=== PATIENT | male | born 1970 | race Caucasian/White ===

== ENCOUNTER 2017-11-30 23:07 | Emergency (ER) | payer MEDICARE, SELFPAY ==
[2017-11-30 23:08] VITALS: BP 118/91; PULSE 71; RESP 15; TEMP 36.2; BMI 34.8
--- NOTE | 2017-11-30 23:56 | ED.VISSUMM ---
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 He is right-hand dominant. He was referred to sports medicine Dr. Kahn, who performed a cortisone injection in his bursa, he states he had relative relief for about 2 weeks but then it gradually became worse and now it is more severe. Hurts more to lie on his right shoulder. Overhead movements are the worst pain. Pain occasionally shoots down towards hand. Physical Examination: Vital signs are normal he is in no distress. He does have subacromial pain and tenderness of the right shoulder, intact axial nerve sensation and distally in his right upper extremity. No anterior tenderness. No deformities. He has full range of motion of the right shoulder, but more pain when he goes over his head. Positive Alford test. Also has increased pain when he uses his right hand to touch his left shoulder. Test Results: n/a Emergency Department Course and Treatment: His symptoms and exam are consistent with right shoulder bursitis. He had x-rays obtained in the office as an outpatient and there is no indication to repeat those at this time. I reviewed and oars report, he has had multiple prescriptions for narcotics in the past, none that are active, the last of which was 1-2 months ago. We will give him a short course of [place]; considered Voltaren gel since he is on Eliquis, but it appears that the combination is relatively contraindicated, so will avoid. Treatment Plan: As above and close outpatient follow-up with sports medicine Disposition: Discharge home Impression: Right shoulder impingement syndrome This note was generated with [employer] dictation software. It may contain incorrect words, spelling, and punctuation that were not noted in review of the chart prior to signing ED Disposition - Plan for ED Patient: Disposition: Home or Assisted Living Chief Complaint: Upper Extremity Injury Instructions: What Is Impingement Syndrome? Prescriptions: Oxycodone HCl/Acetaminophen [Percocet 5/325] 1 tab PO Q6H PRN PRN 3 Days #10 tab PRN Reason: Pain Referrals: Camron Kahn DO [STAFF PHYSICIAN] - 5-7 Days
[2017-12-01 00:06] VITALS: BP 122/89; PULSE 78; RESP 16; O2SAT 98
== END 2017-12-01 00:19 | disposition home or self-care (01) ==
PROVIDERS: Emergency Provider Emergency Medicine; Family Provider Internal Medicine; PCP Internal Medicine
DX: M75.41 Impingement syndrome of right shoulder (principal); I48.91 Unspecified atrial fibrillation; Z79.01 Long term (current) use of anticoagulants
CPT/HCPCS: 96372; 99282

== ENCOUNTER → 2017-12-02 17:00 | Outpatient (CLI) | payer MEDICARE, SELFPAY ==
--- NOTE | 2017-12-02 | IMM_PTH ---
PATIENT: ATTILA DEL CID LOC: [facility] U#:[id number] AGE/SX: 55/M ROOM: RE12/02/[address]: Dr. John Davis MD : 1970 BED: DIS: SPEC #: [id number] RECD: 12/04/17 11:11 STATUS: JB REYoel #: [id number] ARMEN: 12/02/17 00:[address]: John Davis DEPT: IMMUNOHISTOCHEMISTRY RECD BY: Pearl Hull ENTERED: 12/04/17 11:11 SP TYPE: IMMUNO OTHR DR: Dr. Kristyn Bearden MD Tissues: Stomach, NOS Procedures: H Pylori (initial) PHYSICIAN & INSTITUTION [place] [id number] SPECIMEN INFORMATION: Tissue Source: Biopsy gastric antrum/body Clinical Info: Nausea, abdomen pain Specimen Number: [id number] CPT code: 97461 METHODOLOGY: Deparaffinized sections of prefer/formalin-fixed tissue or PAP/DQ stained slides are incubated with monoclonal/polyclonal antibodies/oligonucleotide probes. Localization is made via biotin free immunoperoxidase method. Appropriate controls are performed and reacted as expected. Results on target cell population are indicated in the following table: RESULTS: ANTIBODY / CLONE RESULT H Pylori (polyclonal) negative These tests were developed and their performance characteristics determined by [facility]. They may not have been cleared or approved by the U.S. Food and Drug Administration. The FDA has determined that such clearance or approval is not necessary. INTERPRETATION: Gastric antrum/body, biopsy: Negative for Helicobacter pylori organisms. AM:abbe 12/05/17
--- NOTE | 2017-12-02 11:57 | EGD_PTH ---
PATIENT: ATTILA DEL CID LOC: [facility] U#:[id number] AGE/SX: 55/M ROOM: RE12/02/[address]: Dr. John Davis MD : 1970 BED: DIS: SPEC #: [id number] RECD: 12/02/17 16:14 STATUS: JB SCOTT #: [id number] ARMEN: 12/02/17 11:[address]: John Davis DEPT: SURGICAL PATHOLOGY RECD BY: Moustapha Whitt ENTERED: 12/03/17 08:12 SP TYPE: EGD BIOPSY OT DR: Dr. Kristyn Bearden MD [facility] Tissues: Gastric mucous membrane Procedures: Surgery Specimen Level IV HEADER OPERATION: EGD with biopsy PRE-OP DIAGNOSIS: Nausea, abdomen pain TISSUE SUBMITTED: Biopsy gastric antrum/body, rule out gastritis MICROSCOPIC DIAGNOSIS Gastric antrum/body, biopsy: Gastritis. AM:abbe 2/14/18 COMMENT The results of immunohistochemistry for Helicobacter pylori will be reported separately ([id number]). MICROSCOPIC DESCRIPTION Slides are reviewed. Sections show small collections and groups of plasma cells in the mucosa. Active inflammation is not present. These findings are consistent with mild chronic gastritis. GROSS DESCRIPTION Received in fixative is one container labeled with the patient's name and designated gastric biopsy. The specimen consists of multiple irregular fragments of light casiano soft tissue that in aggregate measure 0.6 x 0.2 x 0.1 cm. The specimen is totally submitted in one cassette. / AM:abbe 12/03/17 TC:3 [facility]: [id number]
== END ==
PROVIDERS: Family Provider Internal Medicine; PCP Internal Medicine; Visit Provider Internal Medicine Gastroenterology
DX: R11.0 Nausea (principal)
CPT/HCPCS: 88305; 88342

== ENCOUNTER 2017-12-16 20:44 | Emergency (ER) | payer MEDICARE, SELFPAY ==
[2017-12-16 20:45] VITALS: BP 148/112; PULSE 97; RESP 16; TEMP 36.4; O2SAT 98; BMI 34.6
--- NOTE | 2017-12-16 20:52 | EKG12_ITS ---
Test Reason : CP Blood Pressure : / mmHG Vent. Rate : 080 BPM Atrial Rate : 080 BPM P-R Int : 160 ms QRS Dur : 084 ms QT Int : 366 ms P-R-T Axes : 006 016 047 degrees QTc Int : 422 ms Normal sinus rhythm Normal ECG Confirmed by NABILA CONNOR, JEANCARLOS ([id number]), material expeditor RICCO LUZ ([id number]) on 12/18/2017 2:11:11 PM Referred By: EMMANUEL Confirmed By:JEANCARLOS DAHL MD
--- NOTE | 2017-12-16 21:10 | RAD_ITS ---
STUDY: X-RAY CHEST REASON FOR EXAM: Male, 47 years old. Chest pain TECHNIQUE: Single AP portable view of the chest. COMPARISON: 10/25/2017. FINDINGS: The lungs are clear and expanded. There is no demonstrated pleural abnormality. Normal size heart. Normal mediastinum and ruben. Normal visualized pulmonary arteries. Normal visualized aortic arch and descending thoracic aorta. Normal visualized thoracic spine. Normal visualized ribs, clavicles, and shoulders. There is no demonstrated abnormality of the visualized soft tissue structures of the upper abdomen. RAD/Chest 1 View (Portable) IMPRESSION: Normal x-ray examination of the chest. Electronically Signed: Soto Mena MD at 21:49 EST , Service support ,
[2017-12-16 21:18] VITALS: BP 151/112; PULSE 82; RESP 26; O2SAT 98
[2017-12-16 21:22] LABS: Absolute Lymphocyte Count 2.26 X10^3/ul (0.83-4.51); Absolute Neutrophil Count 4.2 X10^3/uL (2.0-7.7); Basophil# 0.03 X10^3/uL; Basophil% 0.4 % (0-1); Eosinophil# 0.09 X10^3/uL; Eosinophils% 1.3 % (0-5); Hematocrit 44.8 % (40-54); Hemoglobin 14.6 g/dl (13.0-16.5); Lymphocyte # 2.26 X10^3/ul (4.0); Lymphocyte % 31.5 % (19-41); Mean Corp Hgb Conc 32.6 g/gl (32-36); Mean Corpuscular Hgb 25.7 pg (27.0-32.0); Mean Corpuscular Volume 78.7 fL (80-94); Mean Platelet Vol. 9.1 fl (6.2-12.0); Monocyte# 0.58 X10^3/uL; Monocyte% 8.1 % (0-10); Neutrophil # 4.22 X10^3/uL (2.7-7.7); Neutrophil % 58.7 % (47-70); Platelet Count 276 K/mm3 (150-450); RBC Distribution Width CV 14.5 % (11.6-14.6); RBC Distribution Width SD 41.1 fl (35.1-43.9); Red Blood Count 5.69 M/mm3 (4.6-6.2); White Blood Count 7.2 K/mm3 (4.4-11.0)
[2017-12-16 21:24] LABS: POSITIVE COUNT NO; POSITIVE DIFFERENTIAL NO; POSITIVE MORPHOLOGY NO
[2017-12-16 21:40] LABS: Anion Gap 7 (5-15); BUN 12 mg/dL (7-18); BUN/Creat Ratio 13.8 RATIO (10-20); Calcium,Total 9.1 mg/dL (8.5-10.1); Chloride 105 mmol/L (98-107); Creatinine, Serum 0.87 mg/dL (0.70-1.30); EST Glomerular Filtration Rate 99 mL/min (>60); Est Glom Filt Rate - Afr Amer 120 mL/min (>60); Glucose 96 mg/dL (74-106); Potassium 3.6 mmol/L (3.5-5.1); Sodium Level 141 mmol/L (136-145)
[2017-12-16 22:13] VITALS: BP 129/93; PULSE 81; RESP 24; O2SAT 99
[2017-12-16] MEDS: Aspirin 325 MG Tablet PO (22:36)
[2017-12-16 22:37] VITALS: BP 151/112; PULSE 90
--- NOTE | 2017-12-16 23:07 | ED.DCSUM_ITS ---
- ER Visit Summary Date of Service: 12/16/17 Chief Complaint: Chest pain History of Present Illness: The patient is a 47 M presenting with chest pain ?1 hour. Patient complains of a midsternal pain radiating to both his shoulders. He denies diaphoresis. He has mild shortness of breath associated with this. He has nausea with no vomiting. He has a history of hypertension, hypercholesterolemia. He had an ablation performed at [facility] in September for atrial fibrillation. He had a heart catheterization approximately 1 year ago with no intervention. He has a history of ascending aortic aneurysm which is followed by Dr. Harris. He had a CTA chest 1 month ago which showed stable aneurysm. Physical Examination: Vitals are stable. Patient is afebrile. Alert no acute distress. HEENT exam is unremarkable. Neck is supple. Lungs are clear and equal bilaterally. Heart is regular rate and rhythm. Abdomen is soft nontender nondistended. Extremities are unremarkable. Skin is warm and dry. No focal neurologic deficit. Remainder of exam is unremarkable. Emergency Department Course and Treatment: Patient was given aspirin, nitro. He had no change with nitro. He is given morphine, Zofran with improvement. EKG is sinus rhythm rate of 80 with no acute ischemic changes. Chest x-ray shows no acute process. CBC, chemistries unremarkable. Troponin is negative. Discussed with Dr. Harris, he knows the patient well. He agrees with delta troponin and outpatient follow up if negative. Delta troponin is negative. He is advised to return to the ED for any worsening complaints. Advised to follow up with Dr. Harris. Disposition: Discharge home Impression: Chest pain This note was generated with [employer] dictation software. It may contain incorrect words, spelling, and punctuation that were not noted in review of the chart prior to signing ED Disposition - Plan for ED Patient: Chief Complaint: Chest Pain Instructions: ED Chest Pain Atypical Unkn Cause Referrals: Jesse Harris MD [STAFF PHYSICIAN] - Kristyn Bearden MD [Primary Care Provider] -
[2017-12-16] MEDS: Ondansetron 4 MG/2 ML Vial IV (23:10)
[2017-12-16 23:14] VITALS: BP 115/95; PULSE 80; RESP 16; O2SAT 100
--- NOTE | 2017-12-17 01:10 | ED.DEP ---
ED Disposition - Plan for ED Patient: Chief Complaint: Chest Pain Instructions: ED Chest Pain Atypical Unkn Cause Referrals: Kristyn Bearden MD [Primary Care Provider] - Jesse Harris MD [STAFF PHYSICIAN] -
[2017-12-17 01:32] VITALS: BP 141/79; PULSE 70; RESP 16; O2SAT 98
== END 2017-12-17 01:34 | disposition home or self-care (01) ==
LOC: ED 12-17 01:34
PROVIDERS: Emergency Provider Emergency Medicine; Family Provider Internal Medicine; PCP Internal Medicine
DX: R07.9 Chest pain, unspecified (principal); I25.10 Atherosclerotic heart disease of native coronary artery without angina pectoris; I71.2 Thoracic aortic aneurysm, without rupture; I25.2 Old myocardial infarction; I10 Essential (primary) hypertension; E78.00 Pure hypercholesterolemia, unspecified; K21.9 Gastro-esophageal reflux disease without esophagitis; I48.91 Unspecified atrial fibrillation; Z79.01 Long term (current) use of anticoagulants; Z79.899 Other long term (current) drug therapy
CPT/HCPCS: 71045; 80048; 84484; 85025; 93005; 96374; 96375; 99284; A4216; J2405

== ENCOUNTER → 2017-12-19 13:25 | Outpatient (CLI) | payer MEDICARE, SELFPAY ==
--- NOTE | 2017-12-19 13:29 | RAD_ITS ---
STUDY: X-RAY - RIGHT SHOULDER REASON FOR EXAM: Male, 47 years old. Pain x2 months. No history of an injury. TECHNIQUE: 3 view(s) of the shoulder. COMPARISON: None. FINDINGS: Normal glenohumeral articulation. Normal acromioclavicular joint. Normal acromion. There is no demonstrated inferior acromial spur. Normal humeral head and visualized proximal humerus. The soft tissue structures are unremarkable. Normal visualized pulmonary apex. RAD/Shoulder min 2 Views IMPRESSION: Normal x-ray examination of the shoulder. Electronically Signed: Teto Mccann DO at 15:20 EST Tel , Service support ,
== END ==
PROVIDERS: Family Provider Internal Medicine; PCP Internal Medicine; Visit Provider Orthopaedic Surgery
DX: M25.511 Pain in right shoulder (principal)
CPT/HCPCS: 73030

== ENCOUNTER → 2018-01-03 17:00 | Outpatient (CLI) | payer MEDICARE, SELFPAY ==
--- NOTE | 2018-01-03 17:01 | MRI_ITS ---
STUDY: MRI RIGHT SHOULDER REASON FOR EXAM: Male, 47 years old. Decreased range of motion. Patient has had right-sided shoulder pain for two months. TECHNIQUE: Standardized fat and water weighted pulse sequences were obtained in all 3 orthogonal planes. COMPARISON: Right-sided shoulder radiograph dated December 19, 2017. FINDINGS: There is supraspinatus tendinosis with tendon attrition, but without a demonstrated supraspinatus tendon tear. Normal infraspinatus tendon. There is subscapularis tendinosis with tendon attrition, but without a demonstrated subscapularis tendon tear. Normal teres minor tendon. Normal supraspinatus muscle. Normal infraspinatus muscle. Normal subscapularis muscle. Normal teres minor muscle. Normal glenohumeral articulation. Normal humeral head and visualized proximal humerus. Normal biceps labral complex. Normal intracapsular long biceps tendon. Normal labrum. Normal capsulo- ligamentous complex. Normal rotator interval. There is mild osteoarthritis of the acromioclavicular articulation. There is a Type II morphology (curved). There is no subacromial-subdeltoid bursal fluid. Normal axillary space. Normal deltoid muscle. Normal trapezius muscle. MRI/Upper Ext Joint Only(Routine) IMPRESSION: 1. Tendinopathy of the supraspinatus tendon and subscapularis tendon. 2. Degenerative arthropathy of the acromioclavicular joint. Electronically Signed: Leonila Lewis MD at 18:26 EDT , Service support ,
== END ==
PROVIDERS: Family Provider Internal Medicine; PCP Internal Medicine; Visit Provider Orthopaedic Surgery
DX: M75.101 Unspecified rotator cuff tear or rupture of right shoulder, not specified as traumatic (principal); M19.011 Primary osteoarthritis, right shoulder
CPT/HCPCS: 73221

== ENCOUNTER 2018-01-10 20:39 | Emergency (ER) | payer MEDICARE, SELFPAY ==
[2018-01-10 20:40] VITALS: BP 150/89; PULSE 90; RESP 16; TEMP 36.9; O2SAT 98; BMI 33.5
[2018-01-10] MEDS: oxyCODONE 5 MG Tablet PO (21:13)
--- NOTE | 2018-01-10 21:34 | NURSING ---
LET THE DOCTOR KNOW THAT THE PT WAS STILL HAVING 8/10 PAIN. NO RELIEF WITH THE MEDICATION.
--- NOTE | 2018-01-10 22:05 | ED.VISSUMM ---
- ER Visit Summary Date of Service: 01/10/18 Chief Complaint: Right shoulder pain History of Present Illness: The patient is a 47 M with significant comorbidities who presents to the emergency department with right shoulder pain. The patient has had this pain for about 2 months. He has started following with Dr. Morris. He states that he had an MRI done 7 days ago but has not had the results. He states they suspect he is a rotator cuff tear. He has not had any surgery. He states he took some Tylenol with no improvement. He states that the wrist tonight, the pain is worsened. He has been doing light work with the shoulder. He denies any trauma. He denies any chest pain. The patient is on anticoagulants. Physical Examination: Vital signs reviewed General: Well-nourished, well-developed Head: Normocephalic, atraumatic Eyes: Pupils equal and reactive, extraocular muscles intact Neck, supple, no lymphadenopathy Heart: Regular rate and rhythm Respiratory: No distress, clear bilaterally Abdomen: Soft, nontender, nondistended, no peritoneal signs Back: Nontender Extremities: Tenderness to palpation over the right shoulder, but no erythema or edema. Axillary nerve is preserved. Diminished range of motion secondary to pain. Normal pulses. Skin: Normal color no rash Neuro: Alert and oriented, no focal or lateralizing deficits Test Results: [] Emergency Department Course and Treatment: I did review the patient's MRI from 7 days ago. There is arthropathy of the cuff, but no significant tear. I do for the patient likely has continued pain from his underlying cuff arthropathy. The patient was given oral oxycodone with improvement. There is no evidence of infected joint. He has normal pulses. There is normal neurovascular function. I do for the patient is safe for discharge. He will follow-up with Dr. Morris as scheduled. Treatment Plan: [] Disposition: Discharge Impression:. Right rotator cuff arthropathy This note was generated with [employer] dictation software. It may contain incorrect words, spelling, and punctuation that were not noted in review of the chart prior to signing ED Disposition - Plan for ED Patient: Chief Complaint: Upper Extremity Injury Instructions: ED Tendinitis Rotator Cuff Referrals: Claribel Batista DO [STAFF PHYSICIAN] -
--- NOTE | 2018-01-10 22:10 | ED.RN ---
DISCHARGE INSTRUCTIONS GIVEN TO AND REVIEWED WITH PATIENT, PATIENT DENIES QUESTIONS OR CONCERNS AND VOICES UNDERSTANDING OF DISCHARGE INSTRUCTIONS. PT AMBULATES OUT OF ROOM WITHOUT DIFFICULTY.
== END 2018-01-10 22:05 | disposition home or self-care (01) ==
PROVIDERS: Emergency Provider Emergency Medicine; Family Provider Internal Medicine; PCP Internal Medicine
DX: M12.811 Other specific arthropathies, not elsewhere classified, right shoulder (principal)
CPT/HCPCS: 99283

== ENCOUNTER → 2018-01-20 10:43 | Outpatient (CLI) | payer MEDICARE, SELFPAY ==
--- NOTE | 2018-01-20 10:45 | NM_ITS ---
CLINICAL: 47-year-old male with reported history of chronic nausea. SEMI-SOLID PHASE 99m Tc SULFUR COLLOID GASTRIC EMPTYING STUDY COMPARISON: None available FINDINGS: The patient was administered 1.1 mCi of 99m Tc sulfur colloid mixed with oatmeal and consumed per os. Image acquisitions in the anterior-posterior projections for a total of 60 minutes. There is prompt visualization of the stomach. There is no gastroesophageal reflux identified. The T1/2 linear fit was calculated to be 36.01 minutes, (Normal: 12-56 minutes). NM/Gastric Emptying Study IMPRESSION: 1. NORMAL 99m Tc sulfur colloid semi-solid phase (oatmeal) gastric emptying imaging examination. A. There is normal and preserved semi-solid phase gastric emptying compared to normal controls. (Jabier et al, J Nucl Med Tech 38: 186, 2010). Electronically Signed: Conrad Hayes DO at 22:45 EDT Tel , Service support ,
== END ==
PROVIDERS: Family Provider Internal Medicine; PCP Internal Medicine; Visit Provider Internal Medicine Gastroenterology
DX: R11.0 Nausea (principal)
CPT/HCPCS: 78264; A9541

== ENCOUNTER 2018-02-05 14:22 | Outpatient (RCR) | payer MEDICARE, SELFPAY ==
--- NOTE | 2018-02-05 17:12 | HP.PTEVAL ---
Patient's Visit Information ATTILA DEL CID is a 48 year old M referred to Physical Therapy by Claribel Ivy DO with a diagnosis of R RC TENDINOSIS/BICEPS TENDINOSIS/SUBACROMIAL IMPINGEMENT. Date of Evaluation: 02/05/18 Physical Therapist: Joaquina Harris - Visit Plan Frequency: 2-3x /Week Duration: 4-6 Weeks Plan: RIGHT LATERAL SHOULDER AND RIGHT LATERAL ELBOW UE. MH AND CP NEEDED. POSTURE CORRECTION/STRENGTHENING, INSTRUCTION IN APPROPRIATE BODY MECHANICS AND ACTIVITY MODIFICATIONS. ERICKA UE ROM, STRETCHING AND STRENGTHENING. HEP INSTRUCTION. - Subjective Subjective: Diagnosis: R RC TENDINOSIS/BICEPS TENDINOSIS/SUBACROMIAL IMPINGEMENT. Work/Leisure: UNEMPLOYEED. 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 Disability: NOV 2016 WENT ON DISABILITY FOR HEART RELATED ISSUES. Present symptoms: RIGHT SHOULDER/UPPER ARM. NUMBNESS AND TINGLING IN THE PALM OF HIS HAND. STATES HE ALSO HAS CARPAL TUNNEL. Present since: ABOUT 5 MONTHS AGO. Pain Scale: WORST 9/10, LEAST 3/10. Currently: 6/10. Commenced as a result of: PATIENT REPORTS HE HAS BEEN USING HIS RIGHT ARM A LOT TO REMODEL A HOUSE. Symptoms at onset: RIGHT SHOULDER. Worse: TAKING A SHOWER, ANYTHING HE USES HIS ARM FOR, TYPING, WRITING, LEAVING IT IN ONE PLACE TOO LONG, AT NIGHT ONLY ALLOWS HIM ABOUT 3 HOURS OF SLEEP BECAUSE IT HURTS SO BAD. Better: ICE OR HEAT. Disturbed sleep: YES. Previous history/Previous treatment: HAS DISLOCATED THE RIGHT SHOULDER TWICE ABOUT 20 YEARS AGO. HAS DISLOCATED THE LEFT SHOULDER TOO. NO PRIOR PT. ONE INJECTION IN RIGHT SHOULDER ABOUT [address] UGALDE. REFERRED TO DR. UGALDE BY DR. ALVAREZ. CHANGED FAMILY DOCTORS AND WAS REFERRED TO DR. IVY FOR SURGICAL CONSULT. NO SURGERY RECOMMENDED BY DR. IVY AT THIS TIME PENDING OUTCOME OF PT. ALSO DID NOT RECOMMEND INJECTIONS DUE TO POSSIBLE FURTHER THINNING OF MUSCLE PER PATIENT. Dizziness: NO. Tinnitis: YES - CHRONIC X 15 YEARS. Nausea: NO. Difficulty Swollowing: NO. Gait: NORMAL. Accidents: NO. Unexplained weight loss: NO. Imaging: RIGHT SHOULDER X-RAYS AND MRI. RECENT MRI IMPRESSION: 1. Tendinopathy of the supraspinatus tendon and subscapularis tendon. 2. Degenerative arthropathy of the acromioclavicular joint. PMH: LEFT KNEE ACL REPAIR ABOUT A YEAR AGO. RIGHT KNEE PARTIAL RPLM. SPIINAL FUSION - 2 BACK SURGERIES. CARDIAC ABLATION SEP 2017. ANEURYSM. HTN. MINOR CVA 2017. SEES A CHIROPRACTOR ONCE A MONTH FOR MIGRAINES AND NECK PAIN. EPISODIC NECK PAIN STARTING ABOUT 2 YEARS AGO AND PATIENT RELATES IT TO STRESS AND ANXIETY. CHIROPRACTIC HISTORY FOR ABOUT 8-9 MONTHS NOW. BRAIN MRI. ERICKA HEARING AIDS. OTHER: DROPPING THINGS WITH RIGHT UE. - Objective Sitting Posture: POOR. Standing Posture: POOR. Active Correction of posture: WORSE. Other Observations: INDEP GAIT INTO PT WITHOUT ANY ASSISTIVE DEVICES. PATIENT IS COOPERATIVE AND FOLLOWS COMMANDS WELL. 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 PATIENT IS RIGHT HAND DOMINANT. MMT RIGHT SHOULDER FLEX 3-/5, ABD 3-/5, ER 3-/5, IR 3-/5. RIGHT ELBOW FLEX 5/5, EXT 5/5. WRIST EXT 3-/5. Sensory deficit: DECREASED LIGHT TOUCH OF THE RIGHT DORSAL, ULNAR AND RADIAL FOREARM AND THE ENTIRE RIGHT HAND COMPARED TO LEFT. ROM deficit: 116 DEG ACTIVE FLEX AND 108 DEG ACTIVE ABD OF RIGHT SHOULDER. SUPINE RIGHT SHOULDER INTERNAL ROTATION 52 DEG AND ER 70 DEG WITH 90 DEG ABD. ER PAIN WITH RIGHT SHOULDER ROOM TESTING ALL PLANES. FULL RIGHT ELBOW ROM. FULL FOREARM ROM. DECREASED RIGHT WRIST EXT. Cervical Mvmt Loss: Flex: NIL. Pro: NIL. Ext: MOD. Ret: MOD - PROVOKES RIGHT NECK PAIN. RSB: MIN. LSB: MIN. R Rot: MIN. L Rot: MIN. Postural strength: POOR. Palpation: RIGHT LATERAL SHOULDER TENDERNESS DISTAL TO AC JOINT. TENDERNESS RIGH LATERAL EPICONDYLE REGION. CERVICAL SPINE IS NOT TENDER. OTHER: POSITIVE RIGHT LATERAL EPICONDYLITIS TEST. - Goals Goal 1:: DECREASE C/O RIGHT UE PAIN Goal Time Frame: 4-6 Weeks Goal 2:: IMPROVE REACHING, LIFTING, ADL, WORK AND SLEEP FUNCTION Goal Time Frame: 4-6 Weeks Goal 3:: INDEP HEP FOR CONTINUED IMPROVEMENT ONCE FORMAL PHYSICAL THERAPY CONCLUDES Goal Time Frame: 4-6 Weeks - Rehabilitation Potential Rehabilitation Potential: Fair - Anticipated Interventions Patient/Client Instruction: Educate patient on: Condition, Plan of Care, Risk Factors, Benefits of Fitness Program For the Purpose of:: To improve self management Therapeutic Exercise to Include: Strength training, Body mechanics, Postural training, Flexibilty training, Passive ROM, Active ROM, Scapular Strength/Stabilization For the Purpose of:: To decrease pain, To increase ROM, To improve muscle performance and motor function, To improve ability to perform ADL's, To increase tolerance to activity/condition/position, To improve ability of physical actions for home/community/work/leisure Cryotherapy (ice pack, ice massage): Yes Thermo therapy (hot pack): Yes Ultrasound (thermal/non thermal): Yes For the Purpose of:: To decrease pain, To decrease swelling/inflammation, To increase ROM Thank you for the opportunity to evaluate your patient. For Medicare and Medicare HMO plans, please review the plan of care and approve it. It will need to be FAXED BACK to us at [phone] for Medicare purposes. Please let me know if there are questions or concerns regarding this plan of care. Physician Signature: Date:
--- NOTE | 2018-05-25 13:00 | HP.PTDCNRP_ITS ---
HP - Discharge Summary (1) - Patient Information ATTILA DEL CID was seen in my office for initial evaluation on 02/05/18. The following Plan of Care was established for this patient: Initial Frequency: 2-3x /Week Initial Duration: 4-6 Weeks - Anticipated Interventions Patient/Client Instruction: Educate patient on: Condition, Plan of Care, Risk Factors, Benefits of Fitness Program For the Purpose of:: To improve self management Therapeutic Exercise to Include: Strength training, Body mechanics, Postural training, Flexibilty training, Passive ROM, Active ROM, Scapular Strength/ Stabilization For the Purpose of:: To decrease pain, To increase ROM, To improve muscle performance and motor function, To improve ability to perform ADL's, To increase tolerance to activity/condition/position, To improve ability of physical actions for home/community/work/leisure Cryotherapy (ice pack, ice massage): Yes Thermo therapy (hot pack): Yes Ultrasound (thermal/non thermal): Yes For the Purpose of:: To decrease pain, To decrease swelling/inflammation, To increase ROM This patient was last seen in our office 02/05/18. Pertinent comments regarding their Physical therapy will appear below: This patient has not returned to Physical Therapy and is appropriate to return to MD for further follow-up as needed. At this point I will be discontinuing this patient from physical therapy. I would be happy to see this patient again in the future if found appropriate by the physician. Thank you! Joaquina Harris
== END 2018-02-05 19:00 | disposition home or self-care (01) ==
LOC: PT 14:22
PROVIDERS: Family Provider Internal Medicine; PCP Internal Medicine; Visit Provider Orthopaedic Surgery
DX: M75.81 Other shoulder lesions, right shoulder (principal); M75.21 Bicipital tendinitis, right shoulder; M75.41 Impingement syndrome of right shoulder
CPT/HCPCS: 97162; 97530

== ENCOUNTER 2018-02-16 19:10 | Emergency (ER) | payer MEDICARE, SELFPAY ==
[2018-02-16 19:11] VITALS: BP 149/96; PULSE 70; RESP 15; TEMP 36.4; BMI 34.2
--- NOTE | 2018-02-16 19:33 | CT_ITS ---
STUDY: CT ABDOMEN AND PELVIS WITHOUT CONTRAST REASON FOR EXAM: Male, 48 years old. RIGHT FLANK PAIN WITH NAUSEA AND DIFFICULTY WITH URINATION, HX KS WITH LITHOTRIPSY AND BASKET RETRIEVAL, AAA, HERNIA REPAIR RADIATION DOSAGE (If Supplied By Facility): CTDIvol = ( 19.17 ) mGy, DLP = ( 1082.63 ) mGycm TECHNIQUE: Transaxial images were obtained from the dome of the diaphragm to the symphysis pubis without oral contrast, and without intravenous contrast. Sagittal and coronal images were reconstructed. Individualized dose optimization techniques were used for this CT. COMPARISON: None. FINDINGS: The visualized lung bases are unremarkable. The visualized portions of the heart are within normal limits. Normal liver. Normal gallbladder and extrahepatic biliary system. Normal spleen. Normal pancreas. Normal bilateral adrenal glands. Multiple inferior right renal calculi. These are nonobstructive. The largest measures 3.2 mm. Non obstructive 1 to 2 mm left renal parenchymal stone in the mid kidney. Normal visualized stomach. Normal small intestine. Normal colon. The appendix is visualized and appears normal. There is diffuse atherosclerotic calcification of the abdominal aorta, without a demonstrated aneurysm. Normal inferior vena cava. Normal retroperitoneum. Normal urinary bladder. There are prostatic calcifications. There are bilateral inguinal hernias containing fat. There is no bowel involvement. There is no incarceration. There is no findings suggesting that this is causing a bowel obstruction. Normal osseous structures. Lumbar spinal fixation device. CT/Abdomen/Pelvis without Cont IMPRESSION: Non obstructive 1 to 2 mm left renal parenchymal stone in the mid kidney. Multiple inferior right renal calculi. These are nonobstructive. The largest measures 3.2 mm. There are calcifications of the abdominal aorta. This is consistent for atherosclerotic disease. There is no abdominal aortic aneurysm. Electronically Signed: Nash Contreras MD at 20:36 EDT , Service support ,
[2018-02-16] MEDS: proMETHazine 25 MG/ML Syringe 12.5 MG IV (19:44)
[2018-02-16] MEDS: Ketorolac 30 MG/ML Syringe IV (19:44)
[2018-02-16] MEDS: 0.9% Normal Saline 1,000 ML 125 ML IV (19:44)
[2018-02-16] MEDS: morphine 8 MG/ML Syringe IV (19:45)
[2018-02-16 19:55] LABS: Anion Gap 5 (5-15); BUN 23 mg/dL (7-18); BUN/Creat Ratio 24.6 RATIO (10-20); Calcium,Total 8.9 mg/dL (8.5-10.1); Chloride 107 mmol/L (98-107); Creatinine, Serum 0.93 mg/dL (0.70-1.30); EST Glomerular Filtration Rate 92 mL/min (>60); Est Glom Filt Rate - Afr Amer 111 mL/min (>60); Estimated Creatinine Clearance 103.46 ml/min; Glucose 98 mg/dL (74-106); Potassium 3.7 mmol/L (3.5-5.1); Sodium Level 138 mmol/L (136-145)
[2018-02-16 20:29] LABS: Bacteria 0 SEEN /hpf (None Seen); White Blood Cells 0 SEEN /hpf (0-5)
[2018-02-16 20:30] LABS: Color, Urine Yellow (Yellow); Glucose, Dipstick Normal (Normal); Ketone-Dipstick Negative (Negative); Leukocyte Esterase-Dipstick Negative /ul (Negative); Nitrite-Dipstick Negative (Negative); Occult Blood-Urine 10 /ul (Negative); Protein-Dipstick Negative (Negative); Urine Bilirubin Dipstick Negative (Negative); Urine Clarity Clear (Clear); Urine Urobilinogen Normal (Normal)
[2018-02-16 20:37] LABS: Red Blood Cells-Urine 0-5 SEEN /hpf (0-5); Squamous Epithelial Cells - UA 0-5 SEEN /hpf (0-5)
[2018-02-16 20:38] LABS: Mucous, Urine 3+ /hpf (<or=2+)
[2018-02-16 21:16] VITALS: BP 134/76; PULSE 83; RESP 16; O2SAT 97
[2018-02-16 23:16] VITALS: BP 137/86; PULSE 85; RESP 14; O2SAT 95
[2018-02-16 23:42] VITALS: BP 153/98; PULSE 71; RESP 14; O2SAT 97
--- NOTE | 2018-02-16 23:48 | ED.DCSUM_ITS ---
- ER Visit Summary Date of Service: 02/16/18 Chief Complaint: Right flank pain History of Present Illness: The patient is a 48 M reportedly history of kidney stones. Prior CVA, CAD, [place] and hypertension. Patient complaining of right flank pain that began today suddenly. Mild to moderate with associated nausea. No vomiting. No diarrhea. Had a bowel movement today around 10 AM. Denies any trauma. No fever. Able to urinate. Physical Examination: Well-appearing middle-age male. Vital signs stable afebrile. HEENT exam unremarkable. Neck nontender. Lungs clear to auscultation bilaterally. Heart regular rhythm no murmur. Chest wall nontender. Abdomen soft. Nontender. Nondistended. Normal bowel sounds. No peritoneal signs. No pulsatile mass. Moving all 4 extremities. Neurovascular intact. Back exam nontender. No CVA tenderness. Test Results: BMP normal. UA shows no signs of infection or blood. Renal function is normal on the BMP. CT flank study without contrast shows bilateral renal stones but no acute ureteral calculi. Calcifications of the aorta but no aneurysm. No acute abnormality. Emergency Department Course and Treatment: Patient initially treated with morphine, Phenergan and Toradol. Treatment Plan: Repeat exam the patient is doing well at 2341. Abdomen is benign. Will be discharged to home. With outpatient follow-up with his primary care physician. Disposition: Discharge Impression: Right flank pain of uncertain etiology History of renal calculi This note was generated with [employer] dictation software. It may contain incorrect words, spelling, and punctuation that were not noted in review of the chart prior to signing ED Disposition - Plan for ED Patient: Chief Complaint: Flank Pain Referrals: Kristyn Bearden MD [Primary Care Provider] -
--- NOTE | 2018-02-16 23:48 | ED.DEP ---
ED Disposition - Plan for ED Patient: Disposition: Home or Assisted Living Chief Complaint: Flank Pain Instructions: ED Flank Pain Uncertain Cause Referrals: Kristyn Bearden MD [Primary Care Provider] - 3-5 Days if not improving
== END 2018-02-16 23:55 | disposition home or self-care (01) ==
PROVIDERS: Emergency Provider Emergency Medicine; Family Provider Internal Medicine; PCP Internal Medicine
DX: R10.9 Unspecified abdominal pain (principal); Z87.442 Personal history of urinary calculi; I25.10 Atherosclerotic heart disease of native coronary artery without angina pectoris; I25.2 Old myocardial infarction; I10 Essential (primary) hypertension; Z86.73 Personal history of transient ischemic attack (TIA), and cerebral infarction without residual deficits; Z79.01 Long term (current) use of anticoagulants; Z79.899 Other long term (current) drug therapy
CPT/HCPCS: 74176; 80048; 81001; 96361; 96374; 96375; 99283; J7030; A4216

== ENCOUNTER 2018-02-17 19:17 | Emergency (ER) | payer MEDICARE, SELFPAY ==
[2018-02-17] VITALS (7 sets, daily range): BP systolic 132–152; BP diastolic 84–105; PULSE 67–85; RESP 17–30; TEMP 36.9; O2SAT 95–100; BMI 33.9
--- NOTE | 2018-02-17 19:27 | EKG12_ITS ---
Test Reason : CP Blood Pressure : / mmHG Vent. Rate : 078 BPM Atrial Rate : 078 BPM P-R Int : 142 ms QRS Dur : 080 ms QT Int : 360 ms P-R-T Axes : 016 003 -08 degrees QTc Int : 410 ms Normal sinus rhythm Normal ECG Confirmed by NABILA CONNOR, JEANCARLOS ([id number]), film editor supervisor RICCO LUZ ([id number]) on 02/21/2018 3:14:37 PM Referred By: VITALIY/ALEX Confirmed By:JEANCARLOS DAHL MD
--- NOTE | 2018-02-17 19:30 | RAD_ITS ---
STUDY: X-RAY CHEST REASON FOR EXAM: Male, 48 years old. Chest pain TECHNIQUE: Single frontal view COMPARISON: December 16, 2017 FINDINGS: The lungs are clear and expanded. There is no demonstrated pleural abnormality. Normal size heart. Normal mediastinum and ruben. Normal visualized pulmonary arteries. Normal visualized aortic arch and descending thoracic aorta. Normal visualized thoracic spine. Normal visualized ribs, clavicles, and shoulders. There is no demonstrated abnormality of the visualized soft tissue structures of the upper abdomen. RAD/Chest 1 View (Portable) IMPRESSION: Normal x-ray examination of the chest. Electronically Signed: Carlos Atkins DO at 20:02 EDT Tel [phone], Service support ,
--- NOTE | 2018-02-17 19:35 | CT_ITS ---
STUDY: CTA CHEST REASON FOR EXAM: Male, 48 years old. Chest and left arm pain, shortness of breath RADIATION DOSAGE (If Supplied By Facility): CTDIvol = ( 14.82 ) mGy, DLP = ( 673.40 ) mGycm TECHNIQUE: The examination was performed with the intravenous administration of 100ML ml of Isovue 370 contrast material. Post-processing of the angiographic images was performed, with multiplanar reformation and 3D reconstruction. Individualized dose optimization techniques were used for this CT. COMPARISON: None. FINDINGS: Normal enhancement of the main pulmonary artery and right and left pulmonary arteries. Normal enhancement of the bilateral peripheral pulmonary arteries. There is no demonstrated pulmonary embolism. Normal thoracic aorta and visualized great vessels. Prominent ascending aorta at 4.4 cm in diameter. There is no demonstrated aortic dissection. Normal heart and pericardium. Normal mediastinum. Normal hilar regions. Normal visualized trachea and bronchi. Slight bronchiectasis in the lower lobes. The lungs are well expanded. Normal pulmonary parenchyma. Normal pleura. Normal chest wall structures. Normal osseous structures. Normal visualized upper abdomen. CT/CTA Chest W/WO Contrast IMPRESSION: No demonstrated pulmonary embolism or arterial dissection. Dilated ascending aorta. Electronically Signed: Carlos Atkins DO at 20:48 EDT Tel [phone], Service support ,
--- NOTE | 2018-02-17 19:38 | ED.DCSUM_ITS ---
- ER Visit Summary Date of Service: 02/17/18 Chief Complaint: Chest pain History of Present Illness: The patient is a 48 M presenting with chest pain ?1 hour. He states the pain has been intermittent. It is sharp and heavy. Pain is in the left chest going to his left shoulder and jaw. He has nausea and shortness of breath associated with this. He has lightheadedness. He had palpitations. He has history of hypertension, hyperlipidemia, family history of early heart disease. He has a history of previous upper extremity DVT. He has history of ablation for A. fib in September 2017. He is not a smoker. Physical Examination: Vitals are stable. Patient is afebrile. Alert no acute distress. HEENT exam is unremarkable. Neck is supple. Lungs are clear and equal bilaterally. Heart is regular rate and rhythm. Abdomen is soft nontender nondistended. Extremities are unremarkable. Skin is warm and dry. No focal neurologic deficit. Remainder of exam is unremarkable. Emergency Department Course and Treatment: Patient is given morphine, Zofran, aspirin. EKG is sinus rate of 78 with no acute ischemic changes. CBC chemistries unremarkable. Troponin is negative. He continues to have chest pain and was given additional morphine. Repeat EKG is unchanged. Chest x-ray shows no acute process. CTA chest shows no evidence of PE or dissection, dilated ascending aorta. Pain is improved after morphine. Patient had a cardiac cath October 2016 which showed no obstructive arthrosclerosis. Chest discomfort did not appear to be of cardiac etiology at that time. Patient was seen by Dr. Harris as follow-up from his ablation in October. At that time he was found to have noncardiac chest pain. Discussed with Dr. Harris. He is agreeable with repeat troponin and discharge if normal. Repeat troponin is negative. He is advised to follow-up with Dr. Harris and his primary care physician. Advised return ED for worsening complaints. Disposition: Discharge home Impression: Chest pain This note was generated with [employer] dictation software. It may contain incorrect words, spelling, and punctuation that were not noted in review of the chart prior to signing ED Disposition - Plan for ED Patient: Chief Complaint: Chest Pain Referrals: Kristyn Bearden MD [Primary Care Provider] -
[2018-02-17] MEDS: Aspirin 81 MG TAB.CHEW 324 MG PO (19:42)
[2018-02-17] MEDS: Morphine 4 MG/ML Syringe IV (19:42)
[2018-02-17] MEDS: Ondansetron 4 MG/2 ML Vial IV (19:43)
[2018-02-17 19:45] LABS: Absolute Lymphocyte Count 2.36 X10^3/ul (0.83-4.51); Absolute Neutrophil Count 7.4 X10^3/uL (2.0-7.7); Basophil# 0.01 X10^3/uL; Basophil% 0.1 % (0-1); Hematocrit 44.7 % (40-54); Hemoglobin 14.7 g/dl (13.0-16.5); Lymphocyte # 2.36 X10^3/ul (4.0); Lymphocyte % 21.5 % (19-41); Mean Corp Hgb Conc 32.9 g/gl (32-36); Mean Corpuscular Hgb 26.3 pg (27.0-32.0); Mean Corpuscular Volume 79.8 fL (80-94); Mean Platelet Vol. 8.8 fl (6.2-12.0); Monocyte# 1.24 X10^3/uL; Monocyte% 11.3 % (0-10); Neutrophil # 7.36 X10^3/uL (2.7-7.7); Neutrophil % 66.8 % (47-70); Platelet Count 318 K/mm3 (150-450); RBC Distribution Width CV 15.5 % (11.6-14.6); RBC Distribution Width SD 44.9 fl (35.1-43.9)
[2018-02-17 19:48] LABS: POSITIVE COUNT NO; POSITIVE DIFFERENTIAL NO; POSITIVE MORPHOLOGY NO
--- NOTE | 2018-02-17 21:48 | NURSING ---
PT RINGS OUT STATING CHEST PAIN IS WORSENING, DR. JOHNSON MADE AWARE.
--- NOTE | 2018-02-17 21:50 | EKG12_ITS ---
Test Reason : REPEAT Blood Pressure : / mmHG Vent. Rate : 070 BPM Atrial Rate : 070 BPM P-R Int : 146 ms QRS Dur : 084 ms QT Int : 378 ms P-R-T Axes : -10 004 -08 degrees QTc Int : 408 ms Normal sinus rhythm Normal ECG Confirmed by JEANCARLOS DAHL MD ([id number]), assignment desk editor RICCO LUZ ([id number]) on 02/21/2018 3:14:54 PM Referred By: ALEX Confirmed By:JEANCARLOS DAHL MD
[2018-02-17 22:05] LABS: Anion Gap 9 (5-15); BUN 22 mg/dL (7-18); BUN/Creat Ratio 24.6 RATIO (10-20); Calcium,Total 8.9 mg/dL (8.5-10.1); Chloride 108 mmol/L (98-107); Creatinine, Serum 0.89 mg/dL (0.70-1.30); EST Glomerular Filtration Rate 97 mL/min (>60); Est Glom Filt Rate - Afr Amer 117 mL/min (>60); Estimated Creatinine Clearance 108.11 ml/min; Glucose 68 mg/dL (74-106); Potassium 3.6 mmol/L (3.5-5.1); Sodium Level 143 mmol/L (136-145)
[2018-02-17] MEDS: morphine 8 MG/ML Syringe IV (22:13)
[2018-02-18 00:26] VITALS: PULSE 66; RESP 14; O2SAT 95
[2018-02-18 01:09] VITALS: BP 133/97; PULSE 62; RESP 12; O2SAT 96
[2018-02-18 01:29] VITALS: BP 133/97; PULSE 63; RESP 17; O2SAT 95
== END 2018-02-18 01:29 | disposition home or self-care (01) ==
PROVIDERS: Emergency Provider Emergency Medicine; Family Provider Internal Medicine; PCP Internal Medicine
DX: R07.9 Chest pain, unspecified (principal); R11.0 Nausea; R06.00 Dyspnea, unspecified; R42 Dizziness and giddiness; R00.2 Palpitations; I10 Essential (primary) hypertension; E78.00 Pure hypercholesterolemia, unspecified; Z98.890 Other specified postprocedural states; Z86.718 Personal history of other venous thrombosis and embolism; Z86.79 Personal history of other diseases of the circulatory system; Z82.49 Family history of ischemic heart disease and other diseases of the circulatory system; Z79.01 Long term (current) use of anticoagulants; Z79.899 Other long term (current) drug therapy
CPT/HCPCS: 71045; 71275; 80048; 84484; 85025; 93005; 96374; 96375; 96376; 99284; Q9967; A4216; J2405

== ENCOUNTER 2018-02-20 19:31 | Emergency (ER) | payer MEDICARE, SELFPAY ==
[2018-02-20 19:32] VITALS: BP 138/105; PULSE 99; RESP 18; TEMP 36.9; O2SAT 99; BMI 33.6
[2018-02-20 19:40] VITALS: BP 135/85; PULSE 89; RESP 14; O2SAT 97
--- NOTE | 2018-02-20 19:45 | EKG12_ITS ---
Test Reason : CP Blood Pressure : / mmHG Vent. Rate : 089 BPM Atrial Rate : 089 BPM P-R Int : 156 ms QRS Dur : 086 ms QT Int : 344 ms P-R-T Axes : 026 027 030 degrees QTc Int : 418 ms Normal sinus rhythm Normal ECG Confirmed by JEANCARLOS DAHL MD ([id number]), film and video editor RICCO LUZ ([id number]) on 02/24/2018 1:54:22 PM Referred By: Confirmed By:JEANCARLOS DAHL MD
--- NOTE | 2018-02-20 20:25 | ED.VISSUMM ---
- ER Visit Summary Date of Service: 02/20/18 Chief Complaint: Left-sided chest pain shortness of breath A. fib History of Present Illness: The patient is a 48 M who has been seen twice within the past week. He was seen most recently for left-sided sharp tight test discomfort with shortness of breath. He and his states he had a cardiac cath approximately 12 months ago at [facility] and it was normal. Even though he has a normal cardiac cath he reports prior SD. He has no stents. He did have an ablation at [facility] for A. fib. This pain started several hours ago. This is similar to the pain he had February 17. His workup at that time was negative and included a chest x-ray and CTA of the chest. He was seen on February 16 and diagnosed with renal lithiasis. He believes that renal lithiasis is causing his chest pain. He appears anxious. He denies fever, chills night sweats. Denies any ocular, visual or auditory symptoms. He denies any abdominal pain. He denies leg pain, swelling or discoloration or he has no history of PE or DVT. Reports available from the February 16 and February 17 visits were reviewed. Physical Examination: Vital signs are marked for slight elevation blood pressure of 135/85. He appears anxious. BMI is 33.7. HEENT is unremarkable. Heart is regular without murmur, gallop or rub. Lungs are clear to auscultation with good air bilaterally. He has no reproducible chest pain. Abdomen is soft nontender. There is no asymmetry, swelling, discoloration, leg vein distention, palpable cords or tenderness along the distribution of the deep venous system. Test Results: EKG was obtained and reveals a normal sinus rhythm rate of 89. Troponin with pain less than 0.02. Since this pain is similar to the pain he experienced on the his workup was negative at that time did not believe a repeat x-ray is of any value since CTA. And there is no indication for repeat CBC or BMP. Emergency Department Course and Treatment: In light of patient's past medical history and complaints EKG and troponin were obtained. Treatment Plan: Since his workup again is negative and there was thought that this is related to anxiety he will be discharged to home to follow-up with Dr. Bearden. Disposition: Discharge to home in stable condition with spouse Impression: Left-sided chest pain of unknown etiology History of CVA History of coronary artery disease History of hypertension History of hypercholesterolemia History of atrial fibrillation This note was generated with [employer] dictation software. It may contain incorrect words, spelling, and punctuation that were not noted in review of the chart prior to signing ED Disposition - Plan for ED Patient: Disposition: Home or Assisted Living Chief Complaint: Chest Pain Instructions: ED Chest Pain NonCardiac Referrals: Kristyn Bearden MD [Primary Care Provider] - 3-5 Days
[2018-02-20 20:39] VITALS: BP 128/70; PULSE 85; RESP 14; O2SAT 99
== END 2018-02-20 20:40 | disposition home or self-care (01) ==
PROVIDERS: Emergency Provider Emergency Medicine; Family Provider Internal Medicine; PCP Internal Medicine
DX: R07.89 Other chest pain (principal); I25.10 Atherosclerotic heart disease of native coronary artery without angina pectoris; I10 Essential (primary) hypertension; I48.91 Unspecified atrial fibrillation; E78.00 Pure hypercholesterolemia, unspecified; Z79.01 Long term (current) use of anticoagulants; Z79.899 Other long term (current) drug therapy; Z86.73 Personal history of transient ischemic attack (TIA), and cerebral infarction without residual deficits
CPT/HCPCS: 84484; 93005; 99284; A4216

== ENCOUNTER 2018-02-24 08:00 | Emergency (ER) | payer MEDICARE, SELFPAY ==
[2018-02-24] VITALS (7 sets, daily range): BP systolic 115–157; BP diastolic 89–132; PULSE 86–157; RESP 20–25; TEMP 36.9; O2SAT 98–100; BMI 34.4
--- NOTE | 2018-02-24 08:06 | RAD_ITS ---
STUDY: X-RAY CHEST REASON FOR EXAM: Male, 48 years old. Chest pain. TECHNIQUE: Single AP portable view of the chest. COMPARISON: Comparison is made with prior study dated February 17, 2018. FINDINGS: EKG electrodes are seen. Hyperinflation. The lungs are clear. There is no demonstrated pleural abnormality. Normal size heart. Normal mediastinum and ruben. Normal visualized pulmonary arteries. Normal visualized aortic arch and descending thoracic aorta. Normal visualized thoracic spine. Normal visualized ribs, clavicles, and shoulders. There is no demonstrated abnormality of the visualized soft tissue structures of the upper abdomen. RAD/Chest 1 View (Portable) IMPRESSION: Normal x-ray examination of the chest. Electronically Signed: Pablito Young MD at 8:44 EDT Tel [phone], Service support ,
--- NOTE | 2018-02-24 08:06 | EKG12_ITS ---
Test Reason : CP Blood Pressure : / mmHG Vent. Rate : 158 BPM Atrial Rate : 148 BPM P-R Int : 000 ms QRS Dur : 074 ms QT Int : 272 ms P-R-T Axes : 000 008 003 degrees QTc Int : 441 ms Atrial fibrillation Nonspecific ST and T wave abnormality Abnormal ECG Confirmed by INDER CONNOR, ASAEL ([id number]), graphics editor RICCO LUZ ([id number]) on 02/26/2018 1:59:57 PM Referred By: CARRIE Confirmed By:ASAEL LOVING MD
[2018-02-24 08:21] LABS: Absolute Lymphocyte Count 3.39 X10^3/ul (0.83-4.51); Absolute Neutrophil Count 8.8 X10^3/uL (2.0-7.7); Basophil# 0.01 X10^3/uL; Basophil% 0.1 % (0-1); Eosinophil# 0.06 X10^3/uL; Eosinophils% 0.4 % (0-5); Hematocrit 48.8 % (40-54); Lymphocyte # 3.39 X10^3/ul (4.0); Lymphocyte % 25.3 % (19-41); Mean Corp Hgb Conc 32.8 g/gl (32-36); Mean Corpuscular Hgb 26.4 pg (27.0-32.0); Mean Corpuscular Volume 80.5 fL (80-94); Mean Platelet Vol. 9.1 fl (6.2-12.0); Monocyte# 1.15 X10^3/uL; Monocyte% 8.6 % (0-10); Neutrophil # 8.75 X10^3/uL (2.7-7.7); Neutrophil % 65.4 % (47-70); POSITIVE COUNT NO; POSITIVE DIFFERENTIAL NO; POSITIVE MORPHOLOGY NO; Platelet Count 352 K/mm3 (150-450); RBC Distribution Width CV 16.2 % (11.6-14.6); RBC Distribution Width SD 47.2 fl (35.1-43.9); Red Blood Count 6.06 M/mm3 (4.6-6.2); White Blood Count 13.4 K/mm3 (4.4-11.0)
--- NOTE | 2018-02-24 08:28 | ED.DCSUM_ITS ---
- ER Visit Summary Date of Service: 02/24/18 Chief Complaint: Palpitations, A. fib History of Present Illness: The patient is a 48 M who presents with palpitations. He woke up with them this morning. He states when he went to bed last night he was normal and had no symptoms. He currently feels short of breath. His chest feels tight. He has a history of paroxysmal atrial fibrillation. He has had an ablation and cardioversion in the past. He is on Eliquis. He sees Dr. Harris for his cardiology Physical Examination: Vital signs reviewed. HEENT exam unremarkable. Heart is really irregular and tachycardic without murmurs. Lungs are clear to auscultation. Abdomen is soft and nontender. Extremities reveal no edema. Peripheral pulses are equal. Skin exam normal. Neurologic exam normal. Test Results: EKG was atrial fibrillation with rate 150. No ST changes. Laboratory studies are unremarkable. Chest x-ray unremarkable Emergency Department Course and Treatment: I spoke with Dr. Harris. He saw the patient on Saturday. He states that the patient has atypical chest pain. He recommended electrical cardioversion for this patient and discharged home if he was able to be converted. Patient was sedated with 50 mg of propofol. 100 J of synchronized cardioversion was performed and the patient converted to a normal sinus rhythm. He is complaining of chest pain afterwards that he was given Toradol. Patient will be discharged home to continue his home medications Treatment Plan: [] Disposition: Discharge Impression: Atrial fibrillation with RVR Procedural sedation by ED physician Electrical cardioversion by ED physician by second ED physician This note was generated with [employer] dictation software. It may contain incorrect words, spelling, and punctuation that were not noted in review of the chart prior to signing ED Disposition - Plan for ED Patient: Chief Complaint: Palpitations Referrals: Kristyn Bearden MD [Primary Care Provider] -
[2018-02-24] MEDS: Propofol 200 MG/20 ML Vial IV BOLUS (08:31)
[2018-02-24] MEDS: Aspirin 81 MG TAB.CHEW 324 MG PO (08:31)
[2018-02-24 08:37] LABS: Anion Gap 7 (5-15); BUN 17 mg/dL (7-18); BUN/Creat Ratio 19.2 RATIO (10-20); Calcium,Total 8.9 mg/dL (8.5-10.1); Chloride 105 mmol/L (98-107); Creatinine, Serum 0.88 mg/dL (0.70-1.30); EST Glomerular Filtration Rate 98 mL/min (>60); Est Glom Filt Rate - Afr Amer 118 mL/min (>60); Estimated Creatinine Clearance 109.34 ml/min; Glucose 90 mg/dL (74-106); Potassium 4.2 mmol/L (3.5-5.1); Sodium Level 139 mmol/L (136-145)
--- NOTE | 2018-02-24 08:41 | EKG12_ITS ---
Test Reason : POST CARDIOVERSION Blood Pressure : / mmHG Vent. Rate : 097 BPM Atrial Rate : 097 BPM P-R Int : 158 ms QRS Dur : 082 ms QT Int : 328 ms P-R-T Axes : 002 000 -04 degrees QTc Int : 416 ms Normal sinus rhythm Normal ECG Confirmed by INDER CONNOR, ASAEL ([id number]), photographic editor RICCO LUZ ([id number]) on 02/26/2018 2:00:56 PM Referred By: CARRIE Confirmed By:ASAEL LOVING MD
--- NOTE | 2018-02-24 08:59 | ED.DEP ---
ED Disposition - Plan for ED Patient: Disposition: Home or Assisted Living Chief Complaint: Palpitations Instructions: ED Afib Referrals: Kristyn Bearden MD [Primary Care Provider] -
[2018-02-24] MEDS: Ketorolac 30 MG/ML Syringe IV (09:38)
== END 2018-02-24 09:46 | disposition home or self-care (01) ==
PROVIDERS: Emergency Provider Emergency Medicine; Family Provider Internal Medicine; PCP Internal Medicine
DX: I48.0 Paroxysmal atrial fibrillation (principal); I10 Essential (primary) hypertension; E78.00 Pure hypercholesterolemia, unspecified; K21.9 Gastro-esophageal reflux disease without esophagitis; M10.9 Gout, unspecified; Z79.01 Long term (current) use of anticoagulants; Z79.899 Other long term (current) drug therapy
CPT/HCPCS: 71045; 80048; 84484; 85025; 92960; 93005; 96374; 99285; J7030; A4216

== ENCOUNTER 2018-03-07 21:28 | Emergency (ER) | payer MEDICARE, SELFPAY ==
[2018-03-07 21:29] VITALS: BP 114/78; PULSE 101; RESP 16; TEMP 35.9; BMI 33.3
--- NOTE | 2018-03-07 22:00 | US_ITS ---
STUDY: RENAL ULTRASOUND - COMPLETE REASON FOR EXAM: Male, 48 years old. Right flank pain TECHNIQUE: Ultrasound evaluation of the kidneys was performed with real-time and static lopez-scale imaging. COMPARISON: None. FINDINGS: RIGHT KIDNEY: Normal location of the right kidney, which is normal in size. The right kidney measures 11.6 x 5.7 x 5.5 cm. There is a normal cortex of the right kidney. The renal cortex measures 2.0 cm. There is no right renal mass or cyst. Multiple echogenic foci of the right kidney mid and lower pole. There is no right hydronephrosis. DISTAL RIGHT URETER: There is non-visualization of the distal right ureter. There is no demonstrated right ureteral jet. LEFT KIDNEY: Normal location of the left kidney, which is normal in size. The left kidney measures 12.2 x 5.0 x 5.1 cm. There is a normal cortex of the left kidney. The renal cortex measures 1.7 cm. There is no left renal mass or cyst. There are no left renal calculi. There is no left hydronephrosis. DISTAL LEFT URETER: There is non-visualization of the distal left ureter. There is no demonstrated left ureteral jet. BLADDER: The nondistended urinary bladder has a volume of 18 ml. There is a normal wall thickness of the distended urinary bladder. There is no demonstrated mass within the urinary bladder. There are no demonstrated bladder calculi. US/Kidney and Bladder IMPRESSION: Normal size of the right kidney. Multiple echogenic foci of the right kidney in the mid and lower pole consistent with nephrolithiasis without hydronephrosis. Normal left kidney without stones or hydronephrosis. Electronically Signed: Liz Hardy MD at 23:04 EDT , Service support ,
[2018-03-07] MEDS: 0.9% Normal Saline 1,000 ML 1000 ML IV (22:18)
[2018-03-07] MEDS: Morphine 4 MG/ML Syringe IV (22:18)
[2018-03-07] MEDS: Ondansetron 4 MG/2 ML Vial IV (22:18)
[2018-03-07 22:20] LABS: White Blood Cells 0 SEEN /hpf (0-5)
[2018-03-07 22:22] LABS: Color, Urine Yellow (Yellow); Glucose, Dipstick Normal (Normal); Ketone-Dipstick Negative (Negative); Leukocyte Esterase-Dipstick Negative /ul (Negative); Nitrite-Dipstick Negative (Negative); Occult Blood-Urine 25 /ul (Negative); Protein-Dipstick 30 mg/dl (Negative); Urine Bilirubin Dipstick Negative (Negative); Urine Clarity Clear (Clear); Urine Urobilinogen 1 mg/dl (Normal)
[2018-03-07 22:24] LABS: Absolute Lymphocyte Count 2.08 X10^3/ul (0.83-4.51); Absolute Neutrophil Count 4.9 X10^3/uL (2.0-7.7); Basophil# 0.02 X10^3/uL; Basophil% 0.3 % (0-1); Eosinophil# 0.05 X10^3/uL; Eosinophils% 0.6 % (0-5); Hematocrit 41.4 % (40-54); Hemoglobin 13.9 g/dl (13.0-16.5); Lymphocyte # 2.08 X10^3/ul (4.0); Lymphocyte % 26.6 % (19-41); Mean Corp Hgb Conc 33.6 g/gl (32-36); Mean Corpuscular Hgb 27.1 pg (27.0-32.0); Mean Corpuscular Volume 80.9 fL (80-94); Mean Platelet Vol. 8.7 fl (6.2-12.0); Monocyte# 0.74 X10^3/uL; Monocyte% 9.5 % (0-10); Neutrophil # 4.91 X10^3/uL (2.7-7.7); Neutrophil % 62.9 % (47-70); Platelet Count 240 K/mm3 (150-450); RBC Distribution Width CV 15.8 % (11.6-14.6); RBC Distribution Width SD 46.1 fl (35.1-43.9); Red Blood Count 5.12 M/mm3 (4.6-6.2); White Blood Count 7.8 K/mm3 (4.4-11.0)
[2018-03-07 22:29] LABS: POSITIVE COUNT NO; POSITIVE DIFFERENTIAL NO; POSITIVE MORPHOLOGY NO
[2018-03-07 22:40] LABS: AST(SGOT) 22 U/L (15-37); Alanine Aminotransfer ALT/SGPT 45 U/L (16-61); Albumin, Serum 3.2 g/dL (3.2-5.0); Alkaline Phosphatase 89 U/L (45-117); Anion Gap 6 (5-15); BUN 29 mg/dL (7-18); BUN/Creat Ratio 22.5 RATIO (10-20); Calcium,Total 8.3 mg/dL (8.5-10.1); Chloride 110 mmol/L (98-107); Creatinine, Serum 1.29 mg/dL (0.70-1.30); EST Glomerular Filtration Rate 63 mL/min (>60); Est Glom Filt Rate - Afr Amer 76 mL/min (>60); Estimated Creatinine Clearance 74.59 ml/min; Globulin 3.2 g/dL (2.2-4.2); Glucose 90 mg/dL (74-106); Lipase 207 U/L (73-393); Potassium 3.8 mmol/L (3.5-5.1); Protein, Total 6.4 g/dL (6.4-8.2); Sodium Level 141 mmol/L (136-145)
[2018-03-07 22:43] VITALS: BP 112/77; PULSE 73; RESP 20; O2SAT 98
[2018-03-07 23:23] LABS: Bacteria RARE /hpf (None Seen); Hyaline Cast 0-5 SEEN /lpf (0-5); Mucous, Urine 1+ /hpf (<or=2+); Squamous Epithelial Cells - UA 0-5 SEEN /hpf (0-5)
[2018-03-07 23:24] LABS: Calcium Oxalate Crystals Ur RARE /hpf (<or=2+); Red Blood Cells-Urine 0-5 SEEN /hpf (0-5)
--- NOTE | 2018-03-07 23:33 | ED.DCSUM_ITS ---
- ER Visit Summary Date of Service: 03/07/18 Chief Complaint: Flank pain History of Present Illness: The patient is a 48 M with right-sided flank pain today. The patient has a history of kidney stones. He had a CT several weeks ago that showed several stones on the right side and he is concerned that he may be passing 1. He noted some hematuria earlier today. Physical Examination: Afebrile and vital signs unremarkable. The patient is sitting and appears in no acute distress. Skin appears normal. Heart regular. Lungs clear. Abdomen soft and nontender. Right CVA tender to palpation. Test Results: Laboratory studies were unremarkable. Urinalysis shows no significant blood or sign of infection. Previous CT was reviewed, and we did check a renal ultrasound today. That showed right-sided nephrolithiasis without hydronephrosis. Left kidney was normal. Emergency Department Course and Treatment: Patient received fluids, morphine, and Zofran. On reassessment he was comfortable. His workup did not show any evidence of infection, sepsis, renal failure, obstruction, or any other complication. I suspect his pain and hematuria may be from passing a small stone. There is nothing to suggest GI or vascular pathology. Patient will be prescribed a short course of Percocet. He has multiple prescribers and prescriptions over the last year. He is not currently on any opioid medications. I believe this is safer given his concurrent use of Eliquis. He also should continue his Flomax. He has nausea medicine at home. He will follow-up with Dr. Langley. Return for any new or worsening symptoms. Treatment Plan: As above Disposition: Discharged Impression: 1. Right flank pain This note was generated with [employer] [facility] dictation software. It may contain incorrect words, spelling, and punctuation that were not noted in review of the chart prior to signing ED Disposition - Plan for ED Patient: Chief Complaint: Flank Pain Referrals: Kristyn Bearden MD [Primary Care Provider] -
--- NOTE | 2018-03-07 23:33 | ED.DEP ---
ED Disposition - Plan for ED Patient: Chief Complaint: Flank Pain Instructions: ED Flank Pain Uncertain Cause Prescriptions: Oxycodone HCl/Acetaminophen [Percocet 5/325] 1 tab PO Q6H PRN PRN 3 Days #12 tab PRN Reason: Pain Referrals: Camron Langley MD [NON-STAFF] -
[2018-03-07 23:42] VITALS: BP 105/74; PULSE 73; O2SAT 97
== END 2018-03-07 23:46 | disposition home or self-care (01) ==
LOC: ED 21:58
PROVIDERS: Emergency Provider Emergency Medicine; Family Provider Internal Medicine; PCP Internal Medicine
DX: N20.0 Calculus of kidney (principal); Z87.442 Personal history of urinary calculi; I10 Essential (primary) hypertension; E78.00 Pure hypercholesterolemia, unspecified; K21.9 Gastro-esophageal reflux disease without esophagitis; I47.1 Supraventricular tachycardia; I48.0 Paroxysmal atrial fibrillation; F41.9 Anxiety disorder, unspecified; H81.10 Benign paroxysmal vertigo, unspecified ear; G47.33 Obstructive sleep apnea (adult) (pediatric); Z79.01 Long term (current) use of anticoagulants; Z79.899 Other long term (current) drug therapy
CPT/HCPCS: 76770; 80053; 81001; 83690; 85025; 96361; 96374; 96375; 99283; J7030; A4216; J2405

== ENCOUNTER 2018-03-20 02:33 | Observation (INO) | payer MEDICARE, SELFPAY ==
[2018-03-20] VITALS (15 sets, daily range): BP systolic 97–163; BP diastolic 60–113; PULSE 64–82; RESP 14–27; TEMP 36.4–37.1; O2SAT 93–100; BMI 32.1; BMI 33.0
--- NOTE | 2018-03-20 02:54 | RAD_ITS ---
STUDY: X-RAY CHEST REASON FOR EXAM: Male, 48 years old. Chest pain. TECHNIQUE: Single AP portable view of the chest. COMPARISON: 02/24/2018. FINDINGS: The lungs are somewhat hyperinflated particularly in the lung apices. No focal infiltrate is seen. There is no demonstrated pleural abnormality. Normal size heart. There is widening of the mediastinum probably exaggerated by patient's positioning. Normal visualized pulmonary arteries. Normal visualized aortic arch and descending thoracic aorta. Thoracic spine is obscured. Normal visualized ribs, clavicles, and shoulders. There is no demonstrated abnormality of the visualized soft tissue structures of the upper abdomen. RAD/Chest 1 View (Portable) IMPRESSION: No active pulmonary disease. Electronically Signed: Adrien Franks MD at 3:39 EDT Tel , Service support ,
--- NOTE | 2018-03-20 02:54 | EKG12_ITS ---
Test Reason : CP Blood Pressure : / mmHG Vent. Rate : 075 BPM Atrial Rate : 075 BPM P-R Int : 158 ms QRS Dur : 082 ms QT Int : 362 ms P-R-T Axes : 008 005 001 degrees QTc Int : 404 ms Normal sinus rhythm Normal ECG Confirmed by ATTILA OLIVA ([id number]), editor farm journal RICCO LUZ ([id number]) on 03/31/2018 6:42:01 PM Referred By: NIDA Confirmed By:ATTILA OLIVA
[2018-03-20] MEDS: Aspirin 81 MG TAB.CHEW 162 MG PO (03:04)
[2018-03-20 03:05] LABS: Absolute Lymphocyte Count 2.69 X10^3/ul (0.83-4.51); Absolute Neutrophil Count 2.7 X10^3/uL (2.0-7.7); Basophil# 0.03 X10^3/uL; Basophil% 0.5 % (0-1); Eosinophil# 0.08 X10^3/uL; Eosinophils% 1.3 % (0-5); Hemoglobin 13.6 g/dl (13.0-16.5); Lymphocyte # 2.69 X10^3/ul (4.0); Lymphocyte % 43.6 % (19-41); Mean Corp Hgb Conc 33.2 g/gl (32-36); Mean Corpuscular Hgb 27.8 pg (27.0-32.0); Mean Corpuscular Volume 83.7 fL (80-94); Monocyte# 0.64 X10^3/uL; Monocyte% 10.4 % (0-10); Neutrophil # 2.72 X10^3/uL (2.7-7.7); POSITIVE COUNT NO; POSITIVE DIFFERENTIAL NO; POSITIVE MORPHOLOGY NO; Platelet Count 254 K/mm3 (150-450); RBC Distribution Width CV 16.4 % (11.6-14.6); RBC Distribution Width SD 50.1 fl (35.1-43.9); White Blood Count 6.2 K/mm3 (4.4-11.0)
[2018-03-20 03:19] LABS: Anion Gap 9 (5-15); BUN 19 mg/dL (7-18); BUN/Creat Ratio 21.6 RATIO (10-20); Calcium,Total 8.5 mg/dL (8.5-10.1); Chloride 110 mmol/L (98-107); Creatinine, Serum 0.88 mg/dL (0.70-1.30); EST Glomerular Filtration Rate 98 mL/min (>60); Est Glom Filt Rate - Afr Amer 119 mL/min (>60); Estimated Creatinine Clearance 109.34 ml/min; Glucose 97 mg/dL (74-106); Potassium 4.1 mmol/L (3.5-5.1); Sodium Level 146 mmol/L (136-145)
[2018-03-20] MEDS: Ondansetron 4 MG/2 ML Vial IV ×2 (03:24→08:27)
--- NOTE | 2018-03-20 03:28 | ED.DCSUM_ITS ---
- ER Visit Summary Date of Service: 03/20/18 Chief Complaint: [Chest pain] History of Present Illness: The patient is a 48 M [who presents the emergency department with chest pain. It started a couple of days ago was intermittent with exertion or with going up steps. Was more persistent at 11 PM this evening. Associated with shortness of breath. Associated with nausea. It radiates to his left shoulder. He had a cath one year ago that showed minimal disease. He has had an NE. No stents. He has a history of high blood pressure. He sees Dr. Harris. He states the pain is an 8 out of 10 substernal pressure. He does have a history of a 5 cm ascending aortic aneurysm. He denies any radiation of the pain to the back. He has had multiple CTAs in the past.] Physical Examination: [] Blood pressure 161/113 other vitals within normal limits WN WD NAD PERRL EOMI MMM NECK supple and nontender, no masses RRR no murmur rub or gallop, no peripheral edema, symmetric radial pulses CTAB no respiratory distress ABDOMEN is soft and nontender, normal bowel sounds, no distension, no rebound or guarding SKIN is warm and dry no rashes Alert and Oriented x3, CN II-XII in tact, no motor or sensory deficits, gait normal No lymphadenopathy Test Results: [EKG is sinus at a rate of 75 with no acute ischemic changes unchanged from previous EKG on February 24, 2018] Emergency Department Course and Treatment: [Patient was given aspirin and nitroglycerin. His pain did not improve. Screening labs were unremarkable for acute process. Chest x-ray showed chronic widening of the mediastinum. Patient got nauseated and was given antiemetics. He continued to complain of pain and was given for morphine. Last cath was a year ago and showed minimal disease. He has had multiple CTAs in the past all of which have shown stable ascending aortic aneurysm. At this time not re- CTA him. He will be admitted for observation.] Treatment Plan: [] Disposition: [Admit] Impression: Chest pain [] This note was generated with [employer] dictation software. It may contain incorrect words, spelling, and punctuation that were not noted in review of the chart prior to signing ED Disposition - Plan for ED Patient: Disposition: Acute Care Hospital [facility] Chief Complaint: Chest Pain
--- NOTE | 2018-03-20 03:41 | PCM.HP.STD ---
Problem List (1) Chest pain Status: Acute Qualifiers: Chest pain type: unspecified Qualified Code(s): R07.9 - Chest pain, unspecified (2) Obesity (BMI 30.0-34.9) Status: Chronic (3) Ascending aorta dilatation Status: Chronic (4) SVT (supraventricular tachycardia) Status: Chronic (5) LORETTA (obstructive sleep apnea) Status: Chronic (6) Atherosclerotic heart disease of [place] coronary artery without angina pectoris Status: Chronic Qualifiers: [place] vs. transplanted heart: unspecified whether [place] or transplanted heart Qualified Code(s): I25.10 - Atherosclerotic heart disease of [place] coronary artery without angina pectoris (7) HTN (hypertension) Status: Chronic Qualifiers: Hypertension type: essential hypertension (8) Anxiety Status: Chronic (9) PAF (paroxysmal atrial fibrillation) Status: Chronic Comment: Multiple cardioversions, [facility] ablation (2nd). Recent ED presentation 02/24/18 w/ Atrial Fibrillation w/ RVR, successful cardioversion performed. (10) GERD (gastroesophageal reflux disease) Status: Chronic Qualifiers: Esophagitis presence: esophagitis presence not specified (11) Obesity (BMI 30-39.9) Status: Chronic (12) BPPV (benign paroxysmal positional vertigo) Status: Chronic Qualifiers: Laterality: unspecified laterality (13) HLD (hyperlipidemia) Status: Chronic Qualifiers: Hyperlipidemia type: unspecified Qualified Code(s): E78.5 - Hyperlipidemia, unspecified History of Present Illness Date of Admission: 03/20/18 Chief Complaint: Chest pain, palpitations The patient is a 48 y/o M w/ PMHx: Obesity, Anxiety, HTN, HLD, CAD, LORETTA, Hx AAA, BPPV, GERD, PAF s/p serial prior cardioversions and ablation x 2 attempts who presents to the [facility] ED on 03/20/18 with history of ~ 2 months progressively more frequent short periods, 30 seconds-1 minute regular heart rhythm, racing sensation with associated central substernal chest discomfort described as pressure without radiation with associated dyspnea and nausea. He notes these episodes have become more frequent and more severe in nature. He notes ongoing chest discomfort rated 7-8/10 following his 2 or 3 in NG SL series. He was recently in the emergency room and had atrial fibrillation with RVR with successful cardioversion. In the ED work-up included AF, HR 74, BP 129/89, RR 18, 99% on 2L NC, unremarkable CBC, BMP with sodium 146, chloride 112, BUN/creatinine 19/0.88, troponin less than 0.015, EKG with sinus rhythm with no acute evidence of ischemia, chest x-ray with no acute findings. In the emergency room patient administered aspirin, nitroglycerin sublingual, Zofran, Phenergan. Past Medical History Past Medical History (Chronic Problems): Chronic Problems (Last Reviewed 02/26/18 @ 11:43 by ERNIE Carrillo) Obesity (BMI 30.0-34.9) (Chronic) Ascending aorta dilatation (Chronic) SVT (supraventricular tachycardia) (Chronic) LORETTA (obstructive sleep apnea) (Chronic) Atherosclerotic heart disease of [place] coronary artery without angina pectoris (Chronic) History of left heart catheterization (Chronic) 11/09/2016 @ [facility], per Dr. Cory Harley: normal coronaries Nephrolithiasis (Chronic) HTN (hypertension) (Chronic) Anxiety (Chronic) PAF (paroxysmal atrial fibrillation) (Chronic) Multiple cardioversions, [facility] ablation (2nd). Recent ED presentation 02/24/18 w/ Atrial Fibrillation w/ RVR, successful cardioversion performed. GERD (gastroesophageal reflux disease) (Chronic) Obesity (BMI 30-39.9) (Chronic) BPPV (benign paroxysmal positional vertigo) (Chronic) HLD (hyperlipidemia) (Chronic) Thoracic aortic aneurysm without rupture (Chronic) Medical History: Medical History (Last Reviewed 02/26/18 @ 11:43 by ERNIE Carrillo) Ascending aorta dilatation (Chronic) I77.810 SVT (supraventricular tachycardia) (Acute) I47.1 LORETTA (obstructive sleep apnea) (Acute) G47.33 Atherosclerotic heart disease of [place] coronary artery without angina pectoris (Chronic) I25.10 Nephrolithiasis (Chronic) N20.0 HTN (hypertension) (Chronic) I10 Anxiety (Chronic) F41.9 PAF (paroxysmal atrial fibrillation) (Chronic) I48.0 GERD (gastroesophageal reflux disease) (Chronic) K21.9 Obesity (BMI 30-39.9) (Chronic) E66.9 BPPV (benign paroxysmal positional vertigo) (Chronic) H81.10 HLD (hyperlipidemia) (Chronic) E78.5 Thoracic aortic aneurysm without rupture (Chronic) I71.2 Allergies clonidine Allergy (Intermediate, Verified 02/26/18 10:12) rash levofloxacin [From Levaquin] Allergy (Verified 02/26/18 10:12) Rash Penicillins Allergy (Verified 02/26/18 10:12) Hives bupropion Adverse Reaction (Intermediate, Verified 02/26/18 10:12) vomiting celecoxib [From Celebrex] Adverse Reaction (Intermediate, Verified 02/26/18 10:12) vomiting eletriptan Adverse Reaction (Intermediate, Verified 02/26/18 10:12) Vomiting topiramate [From Topamax] Adverse Reaction (Intermediate, Verified 02/26/18 10:12) vomiting fentanyl Adverse Reaction (Unknown, Verified 02/26/18 10:12) unknown hydrocodone bitartrate [From Vicodin] Adverse Reaction (Verified 02/26/18 10:12) Nausea Home Medications: Ambulatory Orders Medication Instructions Recorded Pantoprazole Sodium [Protonix] 40 mg PO DAILY 04/22/16 Carvedilol [Coreg] 25 mg PO BID 01/31/17 Albuterol Inhaler [Ventolin Hfa] 1 - 2 puff INHALATION Q4H PRN PRN 07/15/17 #1 inhaler Apixaban [Eliquis] 5 mg PO BID 09/21/17 lisinopril 40 mg tablet 40 mg PO QDAY #90 tab 10/29/17 atorvastatin 20 mg tablet 20 mg PO QDAY #60 tab 11/11/17 gabapentin 100 mg capsule 100 mg PO QHS #30 cap 01/14/18 meclizine 12.5 mg tablet 12.5 mg PO QODAY PRN #30 tab 01/14/18 tamsulosin 0.4 mg capsule 0.4 mg PO QDAY #90 cap 02/18/18 amlodipine 5 mg tablet 5 mg PO DAILY #90 tab 02/26/18 Colchicine 0.6 mg PO QDAY 03/20/18 Furosemide 40 mg PO QDAY 03/20/18 Venlafaxine HCl [Venlafaxine HCl 150 mg PO QDAY 03/20/18 ER] Surgical History: Surgical History (Last Reviewed 02/26/18 @ 11:43 by ERNIE Carrillo) History of left heart catheterization (Chronic) Z98.890 11/09/2016 @ [facility], per Dr. Cory Harley: normal coronaries History of cardiac radiofrequency ablation (Resolved) Z98.890 10/09/[address] [facility] [address] Andrew H/O arthroscopic knee surgery Z98.890 History of back surgery Z98.890 History of right knee surgery Z98.890 Surgical History: - - Nephrolithiasis w/ 3 lithotripsies in the right side, back surgery, R TKR, cardiac catheterization without PCI. Psychiatric History: Anxiety Lives: Spouse/ Significant Other, With Family Smoking Status: Never smoker Tobacco Use: Non-smoker Alcohol: None Drugs: None - *Family History Maternal Family History: Family History (Last Reviewed 02/26/18 @ 11:43 by ERNIE Carrillo) Brother Hypertension Mother Heart disease Colon cancer Sister Diabetes Sister Diabetes Sister Diabetes History Items: - - Maternal family history of DM, Colon CA, Valvular Heart Disease. Paternal Family History: Family History (Last Reviewed 02/26/18 @ 11:43 by ERNIE Carrillo) Brother Hypertension Mother Heart disease Colon cancer Sister Diabetes Sister Diabetes Sister Diabetes History Items: - - Paternal family history of skin CA. Review of Systems Constitutional: Reports: Malaise, Weakness, Fatigue. Denies: Chills, Fever, Weight Change HEENT: Denies: Head Aches, Sinus Congestion, Sinus Drainage Cardiovascular: Reports: Chest Pain, Chest Pressure, Chest Tightness, Palpitations Respiratory: Reports: Shortness of Breath. Denies: Cough, Shortness of breath at rest, Sputum production Gastrointestinal: Reports: Nausea. Denies: Abdominal Pain, Vomiting Genitourinary: Denies: Dysuria Musculoskeletal: Reports: Back Pain. Denies: Joint Pain, Joint Tenderness Skin: Denies: Rash, Wounds Neurological: Denies: Numbness, Tingling, Focal weakness Psychiatric: Reports: Anxiety. Denies: Depression, Homicidal Ideations, Suicidal Ideations Hematologic/ Lymphatic: Denies: Easy Bruising, Easy Bleeding VTE Information - Inpt Only VTE Present on Admission: No VTE Mechan Device Prophylaxis: SCD's VTE Pharm Prophylaxis ordered?: No Reason prophylaxis not ordered:: Treatment Not Indicated - On Eliquis. Patient Problems: Active and Suspected Problems (Last Reviewed 02/26/18 @ 11:43 by ERNIE Carrillo) Chest pain (Acute) Subjective: Seated upright in the ED bed, fatigued appearing, notes ongoing chest discomfort. Objective: Physical Examination: General: awake, alert, oriented x 3 and cooperative, seated upright in the ED bed, ongoing chest discomfort. Skin: normal color, turgor, no icterus, cyanosis. HEENT: AT/NC, EOMI, PERRLA, mildly dry MM, no carotid bruits or JVD noted. Lungs: CTA bilaterally, moderate effort, mild decrease BL bases, no rales, ronchi or wheezing. Heart: Regular rate and rhythm; no gallop, rub audible. Abdomen: soft, obese, NTTP, ND, normal BS, no HSM. Extremities: no cyanosis, clubbing, or edema. Neurological: patient awake, alert, oriented x 3; cognitive function intact; pupils equally reactive to light and accomodation; cranial nerves II-XII grossly normal, moving all 4 extremities, no focal deficits, strength moderately to severely globally decreased secondary to acute presentation. Psychiatric: affect appears fatigued, no acute evidence of depressive or anxiety feelings. - Physical Exam Vital Signs Temp Pulse Resp BP Pulse Ox 98.7 F 74 14 142/86 H 99 03/20/18 02:34 03/20/18 03:24 03/20/18 02:53 03/20/18 03:24 03/20/18 02:54 Oxygen Flow Rate (L/min) 2 Oxygen Delivery Method Nasal Cannula Weight: 230 lb Body Mass Index (BMI) 32.1 Finger Stick Blood Glucose 95 Laboratory Tests Past 24 Hrs 03/20/18 03/20/18 02:30 02:30 WBC 6.2 RBC 4.90 Hgb 13.6 Hct 41.0 MCV 83.7 MCH 27.8 MCHC 33.2 RDW 16.4 H RDW Differential 50.1 H Plt Count 254 MPV 9.0 Immature Gran % (Auto) 0.200 Neut % (Auto) 44.0 L Lymph % (Auto) 43.6 H [place] % (Auto) 10.4 H Eos % (Auto) 1.3 Baso % (Auto) 0.5 Absolute Neuts (auto) 2.7 Absolute Lymphs (auto) 2.69 Total Counted Not Reportable Sodium 146 H Potassium 4.1 Chloride 110 H Carbon Dioxide 27.0 Anion Gap 9 BUN 19 H Creatinine 0.88 Estim Creat Clear Calc 109.34 Est GFR (MDRD) Af Amer 119 Est GFR (MDRD) Non-Af 98 BUN/Creatinine Ratio 21.6 H Glucose 97 Calcium 8.5 Troponin I < 0.015 Assessment/Plan All Active Problems (Last Reviewed 02/26/18 @ 11:43 by Tawanda Colon NP-Tate) Chest pain (Acute) History of cardiac radiofrequency ablation (Resolved) Double vision (Resolved) The patient is a 48 y/o M w/ PMHx: Obesity, Anxiety, HTN, HLD, CAD, LORETTA, Hx AAA, BPPV, GERD, PAF s/p serial prior cardioversions and ablation x 2 attempts who presents to the [facility] ED on 03/20/18 with history of ~ 2 months progressively more frequent short periods, 30 seconds-1 minute regular heart rhythm, racing sensation with associated central substernal chest discomfort described as pressure without radiation with associated dyspnea and nausea. He notes these episodes have become more frequent and more severe in nature. (1) Atypical Chest Pain: EKG in ED SR without acute evidence of ischemia and no marked events on telemetry in the emergency room, CXR w/ no acute findings, initial trop <0.015. Will admit to PCU, place on a monitored bed to assure no acute myocardial infarction with serial cardiac enzymes and EKGs. Patient is unable to perform exercise thus will proceed with AM nuclear stress testing. ASA, NG, morphine. FLP in AM. Mag pending. Recent CTPA, not repeated given history noted #10. (2) CAD: Follows w/ Dr. Harris. Cardiac catheterization 10/2016 with mild disease, no intervention. Will continue home regimen asa, statin, BB. (3) PAF w/ Intermittent Palpitations: Multiple cardioversions, [facility] ablation (2nd). Recent ED presentation 02/24/18 w/ Atrial Fibrillation w/ RVR, successful cardioversion performed. Maintain on telemetry, if cardiac stress unremarkable, may benefit from event monitor upon discharge. Continue home Coreg, Eliquis regimen. ECHO pending. (4) Hypertension: Continue home regimen including Norvasc, Coreg, Lasix, lisinopril, PRN hydralazine. (5) Hyperlipidemia: Continue home statin regimen. AM FLP. (6) Anxiety and Depression: Continue home venlafaxine regimen. (7) Obesity: Weight loss and lifestyle changes encouraged. (8) GERD: Maintain on home PPI. (9) BPH: Continue home Flomax regimen. (10) AAA: Followed closely, serial CTPA secondary to frequent ED chest pain complaint, last CTPA on 02/17/18 w/ prominent ascending aorta with 4.4 cm diameter. (11) LORETTA: CPAP q HS. (12) DVT prophylaxis: SCDs, Eliquis. Code Visit OBSV E&M: 84334 Initial observation care L3
[2018-03-20] MEDS: proMETHazine 25 MG/ML Syringe 6.25 MG IV (03:59)
--- NOTE | 2018-03-20 04:00 | HP.PCM_ITS ---
Problem List (1) Chest pain Status: Acute Qualifiers: Chest pain type: unspecified Qualified Code(s): R07.9 - Chest pain, unspecified (2) Obesity (BMI 30.0-34.9) Status: Chronic (3) Ascending aorta dilatation Status: Chronic (4) SVT (supraventricular tachycardia) Status: Chronic (5) LORETTA (obstructive sleep apnea) Status: Chronic (6) Atherosclerotic heart disease of [place] coronary artery without angina pectoris Status: Chronic Qualifiers: [place] vs. transplanted heart: unspecified whether [place] or transplanted heart Qualified Code(s): I25.10 - Atherosclerotic heart disease of [place] coronary artery without angina pectoris (7) HTN (hypertension) Status: Chronic Qualifiers: Hypertension type: essential hypertension (8) Anxiety Status: Chronic (9) PAF (paroxysmal atrial fibrillation) Status: Chronic Comment: Multiple cardioversions, [facility] ablation (2nd). Recent ED presentation 02/24/18 w/ Atrial Fibrillation w/ RVR, successful cardioversion performed. (10) GERD (gastroesophageal reflux disease) Status: Chronic Qualifiers: Esophagitis presence: esophagitis presence not specified (11) Obesity (BMI 30-39.9) Status: Chronic (12) BPPV (benign paroxysmal positional vertigo) Status: Chronic Qualifiers: Laterality: unspecified laterality (13) HLD (hyperlipidemia) Status: Chronic Qualifiers: Hyperlipidemia type: unspecified Qualified Code(s): E78.5 - Hyperlipidemia , unspecified History of Present Illness Date of Admission: 03/20/18 Chief Complaint: Chest pain, palpitations The patient is a 48 y/o M w/ PMHx: Obesity, Anxiety, HTN, HLD, CAD, LORETTA, Hx AAA , BPPV, GERD, PAF s/p serial prior cardioversions and ablation x 2 attempts who presents to the [facility] ED on 03/20/18 with history of ~ 2 months progressively more frequent short periods, 30 seconds-1 minute regular heart rhythm, racing sensation with associated central substernal chest discomfort described as pressure without radiation with associated dyspnea and nausea. He notes these episodes have become more frequent and more severe in nature. He notes ongoing chest discomfort rated 7-8/10 following his 2 or 3 in NG SL series. He was recently in the emergency room and had atrial fibrillation with RVR with successful cardioversion. In the ED work-up included AF, HR 74, BP 129/89, RR 18 , 99% on 2L NC, unremarkable CBC, BMP with sodium 146, chloride 112, BUN/ creatinine 19/0.88, troponin less than 0.015, EKG with sinus rhythm with no acute evidence of ischemia, chest x-ray with no acute findings. In the emergency room patient administered aspirin, nitroglycerin sublingual, Zofran, Phenergan. Past Medical History Past Medical History (Chronic Problems): Chronic Problems (Last Reviewed 02/26/18 @ 11:43 by ERNIE Carrillo) Obesity (BMI 30.0-34.9) (Chronic) Ascending aorta dilatation (Chronic) SVT (supraventricular tachycardia) (Chronic) LORETTA (obstructive sleep apnea) (Chronic) Atherosclerotic heart disease of [place] coronary artery without angina pectoris (Chronic) History of left heart catheterization (Chronic) 11/09/2016 @ [facility], per Dr. Cory Harley: normal coronaries Nephrolithiasis (Chronic) HTN (hypertension) (Chronic) Anxiety (Chronic) PAF (paroxysmal atrial fibrillation) (Chronic) Multiple cardioversions, [facility] ablation (2nd). Recent ED presentation 02/24/18 w/ Atrial Fibrillation w/ RVR, successful cardioversion performed. GERD (gastroesophageal reflux disease) (Chronic) Obesity (BMI 30-39.9) (Chronic) BPPV (benign paroxysmal positional vertigo) (Chronic) HLD (hyperlipidemia) (Chronic) Thoracic aortic aneurysm without rupture (Chronic) Medical History: Medical History (Last Reviewed 02/26/18 @ 11:43 by ERNIE Carrillo) Ascending aorta dilatation (Chronic) I77.810 SVT (supraventricular tachycardia) (Acute) I47.1 LORETTA (obstructive sleep apnea) (Acute) G47.33 Atherosclerotic heart disease of [place] coronary artery without angina pectoris (Chronic) I25.10 Nephrolithiasis (Chronic) N20.0 HTN (hypertension) (Chronic) I10 Anxiety (Chronic) F41.9 PAF (paroxysmal atrial fibrillation) (Chronic) I48.0 GERD (gastroesophageal reflux disease) (Chronic) K21.9 Obesity (BMI 30-39.9) (Chronic) E66.9 BPPV (benign paroxysmal positional vertigo) (Chronic) H81.10 HLD (hyperlipidemia) (Chronic) E78.5 Thoracic aortic aneurysm without rupture (Chronic) I71.2 Allergies clonidine Allergy (Intermediate, Verified 02/26/18 10:12) rash levofloxacin [From Levaquin] Allergy (Verified 02/26/18 10:12) Rash Penicillins Allergy (Verified 02/26/18 10:12) Hives bupropion Adverse Reaction (Intermediate, Verified 02/26/18 10:12) vomiting celecoxib [From Celebrex] Adverse Reaction (Intermediate, Verified 02/26/18 10: 12) vomiting eletriptan Adverse Reaction (Intermediate, Verified 02/26/18 10:12) Vomiting topiramate [From Topamax] Adverse Reaction (Intermediate, Verified 02/26/18 10: 12) vomiting fentanyl Adverse Reaction (Unknown, Verified 02/26/18 10:12) unknown hydrocodone bitartrate [From Vicodin] Adverse Reaction (Verified 02/26/18 10:12) Nausea Home Medications: Ambulatory Orders Medication Instructions Recorded Pantoprazole Sodium [Protonix] 40 mg PO DAILY 04/22/16 Carvedilol [Coreg] 25 mg PO BID 01/31/17 Albuterol Inhaler [Ventolin Hfa] 1 - 2 puff INHALATION Q4H PRN PRN 07/15/17 #1 inhaler Apixaban [Eliquis] 5 mg PO BID 09/21/17 lisinopril 40 mg tablet 40 mg PO QDAY #90 tab 10/29/17 atorvastatin 20 mg tablet 20 mg PO QDAY #60 tab 11/11/17 gabapentin 100 mg capsule 100 mg PO QHS #30 cap 01/14/18 meclizine 12.5 mg tablet 12.5 mg PO QODAY PRN #30 tab 01/14/18 tamsulosin 0.4 mg capsule 0.4 mg PO QDAY #90 cap 02/18/18 amlodipine 5 mg tablet 5 mg PO DAILY #90 tab 02/26/18 Colchicine 0.6 mg PO QDAY 03/20/18 Furosemide 40 mg PO QDAY 03/20/18 Venlafaxine HCl [Venlafaxine HCl 150 mg PO QDAY 03/20/18 ER] Surgical History: Surgical History (Last Reviewed 02/26/18 @ 11:43 by ERNIE Carrillo) History of left heart catheterization (Chronic) Z98.890 11/09/2016 @ [facility], per Dr. Cory Harley: normal coronaries History of cardiac radiofrequency ablation (Resolved) Z98.890 10/09/[address] [facility] [address] Andrew H/O arthroscopic knee surgery Z98.890 History of back surgery Z98.890 History of right knee surgery Z98.890 Surgical History: - - Nephrolithiasis w/ 3 lithotripsies in the right side, back surgery, R TKR, cardiac catheterization without PCI. Psychiatric History: Anxiety Lives: Spouse/ Significant Other, With Family Smoking Status: Never smoker Tobacco Use: Non-smoker Alcohol: None Drugs: None - *Family History Maternal Family History: Family History (Last Reviewed 02/26/18 @ 11:43 by ERNIE Carrillo) Brother Hypertension Mother Heart disease Colon cancer Sister Diabetes Sister Diabetes Sister Diabetes History Items: - - Maternal family history of DM, Colon CA, Valvular Heart Disease. Paternal Family History: Family History (Last Reviewed 02/26/18 @ 11:43 by ERNIE Carrillo) Brother Hypertension Mother Heart disease Colon cancer Sister Diabetes Sister Diabetes Sister Diabetes History Items: - - Paternal family history of skin CA. Review of Systems Constitutional: Reports: Malaise, Weakness, Fatigue. Denies: Chills, Fever, Weight Change HEENT: Denies: Head Aches, Sinus Congestion, Sinus Drainage Cardiovascular: Reports: Chest Pain, Chest Pressure, Chest Tightness, Palpitations Respiratory: Reports: Shortness of Breath. Denies: Cough, Shortness of breath at rest, Sputum production Gastrointestinal: Reports: Nausea. Denies: Abdominal Pain, Vomiting Genitourinary: Denies: Dysuria Musculoskeletal: Reports: Back Pain. Denies: Joint Pain, Joint Tenderness Skin: Denies: Rash, Wounds Neurological: Denies: Numbness, Tingling, Focal weakness Psychiatric: Reports: Anxiety. Denies: Depression, Homicidal Ideations, Suicidal Ideations Hematologic/ Lymphatic: Denies: Easy Bruising, Easy Bleeding VTE Information - Inpt Only VTE Present on Admission: No VTE Mechan Device Prophylaxis: SCD's VTE Pharm Prophylaxis ordered?: No Reason prophylaxis not ordered:: Treatment Not Indicated - On Eliquis. Patient Problems: Active and Suspected Problems (Last Reviewed 02/26/18 @ 11:43 by LUNA Carrillo) Chest pain (Acute) Subjective: Seated upright in the ED bed, fatigued appearing, notes ongoing chest discomfort. Objective: Physical Examination: General: awake, alert, oriented x 3 and cooperative, seated upright in the ED bed, ongoing chest discomfort. Skin: normal color, turgor, no icterus, cyanosis. HEENT: AT/NC, EOMI, PERRLA, mildly dry MM, no carotid bruits or JVD noted. Lungs: CTA bilaterally, moderate effort, mild decrease BL bases, no rales, ronchi or wheezing. Heart: Regular rate and rhythm; no gallop, rub audible. Abdomen: soft, obese, NTTP, ND, normal BS, no HSM. Extremities: no cyanosis, clubbing, or edema. Neurological: patient awake, alert, oriented x 3; cognitive function intact; pupils equally reactive to light and accomodation; cranial nerves II-XII grossly normal, moving all 4 extremities, no focal deficits, strength moderately to severely globally decreased secondary to acute presentation. Psychiatric: affect appears fatigued, no acute evidence of depressive or anxiety feelings. - Physical Exam Vital Signs Temp Pulse Resp BP Pulse Ox 98.7 F 74 14 142/86 H 99 03/20/18 02:34 03/20/18 03:24 03/20/18 02:53 03/20/18 03:24 03/20/18 02:54 Oxygen Flow Rate (L/min) 2 Oxygen Delivery Method Nasal Cannula Weight: 230 lb Body Mass Index (BMI) 32.1 Finger Stick Blood Glucose 95 Laboratory Tests Past 24 Hrs 03/20/18 03/20/18 02:30 02:30 WBC 6.2 RBC 4.90 Hgb 13.6 Hct 41.0 MCV 83.7 MCH 27.8 MCHC 33.2 RDW 16.4 H RDW Differential 50.1 H Plt Count 254 MPV 9.0 Immature Gran % (Auto) 0.200 Neut % (Auto) 44.0 L Lymph % (Auto) 43.6 H Peach % (Auto) 10.4 H Eos % (Auto) 1.3 Baso % (Auto) 0.5 Absolute Neuts (auto) 2.7 Absolute Lymphs (auto) 2.69 Total Counted Not Reportable Sodium 146 H Potassium 4.1 Chloride 110 H Carbon Dioxide 27.0 Anion Gap 9 BUN 19 H Creatinine 0.88 Estim Creat Clear Calc 109.34 Est GFR (MDRD) Af Amer 119 Est GFR (MDRD) Non-Af 98 BUN/Creatinine Ratio 21.6 H Glucose 97 Calcium 8.5 Troponin I < 0.015 Assessment/Plan All Active Problems (Last Reviewed 02/26/18 @ 11:43 by Tawanda Colon NP-Tate) Chest pain (Acute) History of cardiac radiofrequency ablation (Resolved) Double vision (Resolved) The patient is a 48 y/o M w/ PMHx: Obesity, Anxiety, HTN, HLD, CAD, LORETTA, Hx AAA , BPPV, GERD, PAF s/p serial prior cardioversions and ablation x 2 attempts who presents to the [facility] ED on 03/20/18 with history of ~ 2 months progressively more frequent short periods, 30 seconds-1 minute regular heart rhythm, racing sensation with associated central substernal chest discomfort described as pressure without radiation with associated dyspnea and nausea. He notes these episodes have become more frequent and more severe in nature. (1) Atypical Chest Pain: EKG in ED SR without acute evidence of ischemia and no marked events on telemetry in the emergency room, CXR w/ no acute findings, initial trop <0.015. Will admit to PCU, place on a monitored bed to assure no acute myocardial infarction with serial cardiac enzymes and EKGs. Patient is unable to perform exercise thus will proceed with AM nuclear stress testing. ASA , NG, morphine. FLP in AM. Mag pending. Recent CTPA, not repeated given history noted #10. (2) CAD: Follows w/ Dr. Harris. Cardiac catheterization 10/2016 with mild disease , no intervention. Will continue home regimen asa, statin, BB. (3) PAF w/ Intermittent Palpitations: Multiple cardioversions, [facility] ablation (2nd ). Recent ED presentation 02/24/18 w/ Atrial Fibrillation w/ RVR, successful cardioversion performed. Maintain on telemetry, if cardiac stress unremarkable, may benefit from event monitor upon discharge. Continue home Coreg, Eliquis regimen. ECHO pending. (4) Hypertension: Continue home regimen including Norvasc, Coreg, Lasix, lisinopril, PRN hydralazine. (5) Hyperlipidemia: Continue home statin regimen. AM FLP. (6) Anxiety and Depression: Continue home venlafaxine regimen. (7) Obesity: Weight loss and lifestyle changes encouraged. (8) GERD: Maintain on home PPI. (9) BPH: Continue home Flomax regimen. (10) AAA: Followed closely, serial CTPA secondary to frequent ED chest pain complaint, last CTPA on 02/17/18 w/ prominent ascending aorta with 4.4 cm diameter. (11) LORETTA: CPAP q HS. (12) DVT prophylaxis: SCDs, Eliquis. Code Visit OBSV E&M: 11749 Initial observation care L3
[2018-03-20] MEDS: Morphine 4 MG/ML Syringe IV (04:14)
--- NOTE | 2018-03-20 04:39 | ECHOCS_ITS ---
Reason For Study: AFIB/FLUTTER Procedure This was a 2D Doppler, Color Flow transthoracic echocardiogram. Exam performed portable in patient room. Left Ventricle Normal size and thickness. The estimated ejection fraction is 65 %. Normal diastology for age. No regional wall motion abnormalities noted. Right Ventricle Normal size and thickness. Normal systolic function. Atria Normal left atrium. Normal right atrium. Normal atrial septum. Mitral Valve The mitral valve is structurally normal. No prolapse or stenosis seen. Tricuspid Valve Normal tricuspid valve. Trivial tricuspid valve insufficiency. Right ventricular systolic pressure estimated to be 39 mmHg. Aortic Valve Trisinus/trileaflet aortic valve. Pulmonic Valve Normal pulmonic valve. Great Vessels Normal aortic root. Normal arch. Normal inferior vena cava. Inferior vena cava collapse with sniff. Pericardium/Pleural No pericardial effusion. Medication Diluted definity 3ml given slow IV push to enhance endocardial definition. MMode/2D Measurements & Calculations LVIDd: 4.5 cm IVSd: 0.97 cm LAV(MOD-bp): 46.6 ml LVIDs: 2.9 cm LVPWd: 1.1 cm LAV(MOD-bp) Indexed: 20.9 ml/m2 RVDd: 3.0 cm FS: 35.9 % LAV(MOD-sp2): 48.9 ml LAV(MOD-sp4): 41.5 ml LA A4 area: 16.9 cm2 RA A4 area: 12.3 cm2 Time Measurements MV dec time: 0.21 sec Doppler Measurements & Calculations MV E max mikal: 72.0 cm/sec Lat Peak E' Mikal: 11.1 cm/sec Med Peak E' Mikal: 7.8 cm/sec MV A max mikal: 71.6 cm/sec E/E' lat: 6.5 E/E' med: 9.2 MV E/A: 1.0 Ao V2 max: 141.6 cm/sec LV V1 max: 97.2 cm/sec TR max mikal: 290.9 cm/sec Ao max P.0 mmHg LV V1 max P.8 mmHg TR max P.9 mmHg Interpretation Summary The estimated ejection fraction is 65 %. Normal diastology for age. Trivial tricuspid valve insufficiency. Right ventricular systolic pressure estimated to be 39 mmHg. COmpared to echo report dated 10/15/2017, LV function has remained the same, and RVSP has decreased from 52 to 39 mm Hg. The study was technically difficult. Contrast injection was performed. Ordering Physician: Kandi Wylie Referring Physician: Claribel Batista Performed By: Jennifer Carter RDCS
--- NOTE | 2018-03-20 04:39 | EKG12_ITS ---
Test Reason : AM EKG Blood Pressure : / mmHG Vent. Rate : 063 BPM Atrial Rate : 063 BPM P-R Int : 158 ms QRS Dur : 088 ms QT Int : 398 ms P-R-T Axes : -02 004 006 degrees QTc Int : 407 ms Normal sinus rhythm Normal ECG When compared with ECG of 20-MAR-2018 02:35, MANUAL COMPARISON REQUIRED, DATA IS UNCONFIRMED Confirmed by ATTILA OLIVA ([id number]), content editor RICCO LUZ ([id number]) on 04/02/2018 7:47:29 PM Referred By: MARIBEL Confirmed By:ATTILA OLIVA
[2018-03-20 05:23] LABS: Hematocrit 39.4 % (40-54); Hemoglobin 12.6 g/dl (13.0-16.5); Mean Corpuscular Hgb 26.4 pg (27.0-32.0); Mean Corpuscular Volume 82.6 fL (80-94); Mean Platelet Vol. 8.7 fl (6.2-12.0); Platelet Count 213 K/mm3 (150-450); RBC Distribution Width CV 16.3 % (11.6-14.6); RBC Distribution Width SD 49.8 fl (35.1-43.9); Red Blood Count 4.77 M/mm3 (4.6-6.2); White Blood Count 5.7 K/mm3 (4.4-11.0)
[2018-03-20 05:25] LABS: Scan Indicated on CBC? Y/N NO
[2018-03-20] MEDS: 0.9% NaCl Peripheral Flush Adult/Peds IV ×3 (05:30→14:00)
[2018-03-20] MEDS: 0.9% Normal Saline 1,000 ML 100 ML IV (05:30)
[2018-03-20] MEDS: HYDROcodone Bitartrate/Apap 5/325 Tablet PO ×2 (05:32→11:14)
[2018-03-20 05:56] LABS: Anion Gap 9 (5-15); BUN 18 mg/dL (7-18); BUN/Creat Ratio 24.7 RATIO (10-20); Calcium,Total 8.2 mg/dL (8.5-10.1); Chloride 113 mmol/L (98-107); Cholesterol 110 mg/dL (200); Creatinine, Serum 0.73 mg/dL (0.70-1.30); EST Glomerular Filtration Rate 122 mL/min (>60); Est Glom Filt Rate - Afr Amer 148 mL/min (>60); Glucose 97 mg/dL (74-106); High Density Lipoprotein 36 mg/dL; Potassium 3.8 mmol/L (3.5-5.1); Sodium Level 144 mmol/L (136-145); T4 Free Direct 1.17 ng/dL (0.76-1.46); Thyroid Stim Hormone (TSH) 3.92 uIU/mL (0.358-3.74); Triglycerides 82 mg/dL; Very Low Density Lipoprotein 16 mg/dL (5-40)
[2018-03-20 06:26] LABS: International Normalized Ratio 0.9; Partial Thromboplast Time 26.6 Seconds (24.1-36.2); Prothrombin Time (Protime)PT. 12.2 SECONDS (11.7-14.9)
[2018-03-20] MEDS: Aspirin E.C. 81 MG Tablet PO (06:44)
[2018-03-20] MEDS: Lisinopril 40 MG Tablet PO (06:44)
--- NOTE | 2018-03-20 06:53 | CPS ---
Pt wears home PAP unit, prefers not to wear while he is here and does not want to bring home unit in. Pt states he does not know his settings and had his sleep study done at Dr. Loja's office.
[2018-03-20] MEDS: Morphine 2 MG/ML Syringe IV ×2 (08:27→14:00)
[2018-03-20] MEDS: Venlafaxine XR 150 MG Capsule PO (10:54)
[2018-03-20] MEDS: Furosemide 40 MG Tablet PO (10:54)
[2018-03-20] MEDS: Pantoprazole Sodium 40 MG Tablet PO (10:54)
[2018-03-20] MEDS: Tamsulosin HCl 0.4 MG Capsule PO (10:54)
[2018-03-20] MEDS: Carvedilol 25 MG Tablet PO (10:55)
[2018-03-20] MEDS: amLODIPine 5 MG Tablet PO (10:56)
--- NOTE | 2018-03-20 13:05 | CHAPLAIN ---
Type of Pastoral Visit _x__ Initial Visit ___ Follow-up Visit ___ On-call Visit ___ General Patient Visit ___ Spiritual Assessment ___ Family Conference ___ Bereavement ___ Rapid Response ___ Code Blue ___ Other (describe below) Pastoral Care Referral From _x__ Patient ___ Family ___ Nurse ___ Physician ___ Customer Service Advocate ___ [employer] Manager ___ Other (describe below) Sacrament/Intervention _x__ Active listening ___ Anointing ___ Episcopal ___ Bereavement ___ Communion _x__ Val exploration ___ _x__ Life review _x__ Prayer ___ Reconciliation ___ Sacrament of Sick _x__ Supportive presence ___ Wedding ___ Other (describe below) Pastoral Comments patient lists a long history of health issues; 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
--- NOTE | 2018-03-20 13:16 | STRESSREP_ITS ---
Stress Test Report Date: 03/20/2018 Procedure: Pharmacologic stress nuclear imaging study Indications: Chest pain Consent: Per the patient Procedure: The patient underwent pharmacologic (Regadenoson) evaluation with a peak heart rate of 94 beats per minute (54 predicted maximal heart rate) and a peak blood pressure of 142/98 mmHg. The baseline ECG demonstrated sinus rhythm. The peak pharmacologic ECG demonstrated no obvious ECG changes. There were no cardiac dysrhythmias pretest, during pharmacologic infusion, or recovery. There was no complaint of chest discomfort during pharmacologic infusion or recovery. The examination was discontinued secondary to completion of protocol. Impression: 1. Pharmacologic (Regadenoson) evaluation 2. Peak pharmacologic ECG with no obvious ECG changes. 3. No cardiac dysrhythmias pretest, during pharmacologic infusion, or recovery 4. Nuclear images pending Myocardial perfusion imaging study: Technique: The patient was injected with 14.7 millicuries of technetium 99m Cardiolite and subsequently rest SPECT Cardiolite nuclear imaging was obtained in the horizontal long, vertical long, and short axis views. The patient underwent pharmacologic (Regadenoson) evaluation with a peak heart rate of 94 beats per minute (54 % percent predicted maximal heart rate) and a peak blood pressure of 142/98 mmHg. The patient was injected with 45 millicuries of technetium 99m Cardiolite and subsequently stress SPECT Cardiolite nuclear imaging was obtained in the horizontal long, vertical long, and short axis views. A gated Cardiolite study at peak stress was obtained. Interpretation: Rest and stress SPECT Cardiolite nuclear imaging status post realignment, normalization, and attenuation correction demonstrate relative uniform tracer uptake and myocardial perfusion appearing within normal limits. There is end systolic thickening and brightening. The gated Cardiolite study demonstrates myocardial thickening and inward wall motion. The reported LVEF is 81 %. Impression: 1. Rest and stress SPECT Cardiolite nuclear imaging demonstrate relative uniform tracer uptake and myocardial perfusion appearing within normal limits. 2. The gated Cardiolite study reports an LVEF of 81 %. This note was generated with [employer] software. It may contain incorrect words, spelling, and punctuation that were not noted in checking the note before signing.
--- NOTE | 2018-03-20 13:43 | PCM.DC ---
- Discharge Diagnoses Current Active Problems: Current Active and Chronic Problems (Last Reviewed 02/26/18 @ 11:43 by ERNIE Carrillo) Obesity (BMI 30.0-34.9) (Chronic) Chest pain (Acute) You will use the following diet at home:: Cardiac - <2000 mg sodium daily, low cholesterol, low fat Your food should be the consistency of: Regular Your liquids should be the consistency of: Regular/Thin Discharge Activity: Return to Normal Activity Allergies/Adverse Reactions: Allergies clonidine Allergy (Intermediate, Verified 02/26/18 10:12) rash levofloxacin [From Levaquin] Allergy (Verified 02/26/18 10:12) Rash Penicillins Allergy (Verified 02/26/18 10:12) Hives bupropion Adverse Reaction (Intermediate, Verified 02/26/18 10:12) vomiting celecoxib [From Celebrex] Adverse Reaction (Intermediate, Verified 02/26/18 10:12) vomiting eletriptan Adverse Reaction (Intermediate, Verified 02/26/18 10:12) Vomiting topiramate [From Topamax] Adverse Reaction (Intermediate, Verified 02/26/18 10:12) vomiting fentanyl Adverse Reaction (Unknown, Verified 02/26/18 10:12) unknown hydrocodone bitartrate [From Vicodin] Adverse Reaction (Verified 02/26/18 10:12) Nausea Medications to take at Discharge Pantoprazole Sodium [Protonix] 40 mg PO DAILY 04/22/16 Carvedilol [Coreg] 25 mg PO BID 01/31/17 Albuterol Inhaler [Ventolin Hfa] 1 - 2 puff INHALATION Q4H PRN PRN #1 inhaler 07/15/17 Apixaban [Eliquis] 5 mg PO BID 09/21/17 lisinopril 40 mg tablet 40 mg PO QDAY #90 tab 10/29/17 atorvastatin 20 mg tablet 20 mg PO QDAY #60 tab 11/11/17 gabapentin 100 mg capsule 100 mg PO QHS #30 cap 01/14/18 meclizine 12.5 mg tablet 12.5 mg PO QODAY PRN #30 tab 01/14/18 tamsulosin 0.4 mg capsule 0.4 mg PO QDAY #90 cap 02/18/18 amlodipine 5 mg tablet 5 mg PO DAILY #90 tab 02/26/18 Colchicine 0.6 mg PO QDAY 03/20/18 Furosemide 40 mg PO QDAY 03/20/18 Venlafaxine HCl [Venlafaxine HCl ER] 150 mg PO QDAY 03/20/18 Primary Care Physician: Kristyn Bearden MD [Primary Care Provider] - Please follow up with your Primary Care Physician in: 1-2 weeks Please Follow Up With: Jesse Harris MD When: 2 weeks Proposed Discharge Date: 03/20/18
--- NOTE | 2018-03-20 13:45 | PCM.DC.SUM ---
<Thiago Hernández - Last Filed: 03/20/18 13:45> Discharge Date and Diagnosis - Problem List Patient Problems: Active and Suspected Problems (Last Reviewed 02/26/18 @ 11:43 by ERNIE Carrillo) Chest pain (Acute) Date of Admission: 03/20/18 Date of Discharge: 03/20/18 - Primary Discharge Diagnosis Active and Suspected Problems (Last Reviewed 02/26/18 @ 11:43 by ERNIE Carrillo) Chest pain (Acute) - musculoskeletal CAD status post cath October 2016 with no intervention Paroxysmal atrial fibrillation-currently in sinus rhythm, status post recent ablation and cardioversion Hypertension Hyperlipidemia Obesity GERD BPH Stable ascending aortic aneurysm LORETTA - Secondary Discharge Diagnosis Chronic Problems (Last Reviewed 02/26/18 @ 11:43 by ERNIE Carrillo) Obesity (BMI 30.0-34.9) (Chronic) Ascending aorta dilatation (Chronic) SVT (supraventricular tachycardia) (Chronic) LORETTA (obstructive sleep apnea) (Chronic) Atherosclerotic heart disease of [place] coronary artery without angina pectoris (Chronic) History of left heart catheterization (Chronic) 11/09/2016 @ [facility], per Dr. Cory Harley: normal coronaries Nephrolithiasis (Chronic) HTN (hypertension) (Chronic) Anxiety (Chronic) PAF (paroxysmal atrial fibrillation) (Chronic) Multiple cardioversions, [facility] ablation (2nd). Recent ED presentation 02/24/18 w/ Atrial Fibrillation w/ RVR, successful cardioversion performed. GERD (gastroesophageal reflux disease) (Chronic) Obesity (BMI 30-39.9) (Chronic) BPPV (benign paroxysmal positional vertigo) (Chronic) HLD (hyperlipidemia) (Chronic) Thoracic aortic aneurysm without rupture (Chronic) Hospital Course and Treatment Imaging Results: 03/20/18 05:55 Nuclear Stress Test - Chemical [NM] AM (NON MEDS)-negative for inducible ischemia RAD/Chest 1 View (Portable) IMPRESSION: No active pulmonary disease. Operations: None Procedures: 2-D Echocardiogram, Stress test Summary of Care Provided: Physical exam on day of discharge: General: Resting comfortably NAD Psych: A/Ox3 normal affect HEENT: [place] AT NC Neck: Supple NT CV: RRR no m/t/r/g/h, CP reproducible with palpation. Resp: CTA Abd: [id number] Soft NT no guarding or rigidity Ext: DP2+= no edema Skin: W/D normal turgor Lymph/Heme: No active bleeding or adenopathy Neuro: CN2-12 intact Hospital course: The patient is a 48 year old M with a history of CAD status post cath in October 2016 with no intervention, obesity, paroxysmal atrial fibrillation status post recent ablation and cardioversion, obstructive sleep apnea, hypertension, hyperlipidemia, known ascending aortic aneurysm, and GERD, who presented to the emergency room complaining of midsternal sharp chest pain intermittently for about 2 months, progressively worsening. He had no dyspnea or nausea. He is found to have a negative chest x-ray, negative troponin, no EKG changes. He was admitted to the PCU and placed on cardiac monitoring. Troponin was cycled and remained negative. He had no events on telemetry. He remained in sinus rhythm throughout. He had a recent CTA of the chest for his AAA in January which measured 4.4 cm, and his prior CTA 3 months before that also measured 4.4. The following morning he underwent a stress test which was negative for inducible ischemia. His chest pain was felt to be musculoskeletal due to its nature and ability to reproduce it with palpation. At discharge I advised him to discontinue taking ibuprofen, and that he should use acetaminophen for pain. Ibuprofen is contraindicated with concurrent use of Eliquis. Patient was discharged home in stable condition. I advised him to follow-up with his PCP and with his office automation clerk Dr. Harris. This patient was seen by Thiago Hernández PA-C under the supervision of Doctor Susan. [] Discharge Diet: Low fat/ Low Cholesterol, 2000 mg Sodium Diet Discharge Activity: Return to Normal Activity Home Medications: Medications to take at Discharge Pantoprazole Sodium [Protonix] 40 mg PO DAILY 04/22/16 Carvedilol [Coreg] 25 mg PO BID 01/31/17 Albuterol Inhaler [Ventolin Hfa] 1 - 2 puff INHALATION Q4H PRN PRN #1 inhaler 07/15/17 Apixaban [Eliquis] 5 mg PO BID 09/21/17 lisinopril 40 mg tablet 40 mg PO QDAY #90 tab 10/29/17 atorvastatin 20 mg tablet 20 mg PO QDAY #60 tab 11/11/17 gabapentin 100 mg capsule 100 mg PO QHS #30 cap 01/14/18 meclizine 12.5 mg tablet 12.5 mg PO QODAY PRN #30 tab 01/14/18 tamsulosin 0.4 mg capsule 0.4 mg PO QDAY #90 cap 02/18/18 amlodipine 5 mg tablet 5 mg PO DAILY #90 tab 02/26/18 Colchicine 0.6 mg PO QDAY 03/20/18 Furosemide 40 mg PO QDAY 03/20/18 Venlafaxine HCl [Venlafaxine HCl ER] 150 mg PO QDAY 03/20/18 Primary Care Physician: Kristyn Bearden MD [Primary Care Provider] - Please follow up with your Primary Care Physician in: 1-2 weeks Please Follow Up With: Jesse Harris MD When: 2 weeks Disposition: Home Minutes spent on discharge:: 35 Patient Condition:: Stable Medical Necessity - Tobacco Use Smoking Status: Never smoker Tobacco Use: Non-smoker Meaningful Use Info Meaningful Use Diagnoses (Choose all that apply): None applicable <Bradly Davis - Last Filed: 03/20/18 14:24> Discharge Date and Diagnosis Date of Admission: 03/20/18 Date of Discharge: 03/20/18 - Primary Discharge Diagnosis Active and Suspected Problems (Last Reviewed 02/26/18 @ 11:43 by ERNIE Carrillo) Chest pain (Acute) - Secondary Discharge Diagnosis Chronic Problems (Last Reviewed 02/26/18 @ 11:43 by ERNIE Carrillo) Obesity (BMI 30.0-34.9) (Chronic) Ascending aorta dilatation (Chronic) SVT (supraventricular tachycardia) (Chronic) LORETTA (obstructive sleep apnea) (Chronic) Atherosclerotic heart disease of [place] coronary artery without angina pectoris (Chronic) History of left heart catheterization (Chronic) 11/09/2016 @ [facility], per Dr. Cory Harley: normal coronaries Nephrolithiasis (Chronic) HTN (hypertension) (Chronic) Anxiety (Chronic) PAF (paroxysmal atrial fibrillation) (Chronic) Multiple cardioversions, [facility] ablation (2nd). Recent ED presentation 02/24/18 w/ Atrial Fibrillation w/ RVR, successful cardioversion performed. GERD (gastroesophageal reflux disease) (Chronic) Obesity (BMI 30-39.9) (Chronic) BPPV (benign paroxysmal positional vertigo) (Chronic) HLD (hyperlipidemia) (Chronic) Thoracic aortic aneurysm without rupture (Chronic) Hospital Course and Treatment Imaging Results: 03/20/18 05:55 Nuclear Stress Test - Chemical [NM] AM (NON MEDS) Operations: None Procedures: 2-D Echocardiogram, Stress test Summary of Care Provided: In and examined independently. Agree with the above note by the nurse practitioner. The patient is a 48 year old M is with chest pain. Said it was worse with cough and deep respirations. Patient underwent stress test today that was negative. Patient on my physical exam did have some reproducible anterior chest wall tenderness and was some prominence of some of his anterior ribs which were tender to palpation. I feel that the patient's chest pain was a muscular skeletal in etiology and does not warrant further workup at this time. Patient is discharged home in stable condition. [] Discharge Diet: Low fat/ Low Cholesterol, 2000 mg Sodium Diet Discharge Activity: Return to Normal Activity Disposition: Home Patient Condition:: Stable Medical Necessity - Tobacco Use Smoking Status: Never smoker Tobacco Use: Non-smoker Meaningful Use Info Meaningful Use Diagnoses (Choose all that apply): None applicable Code Visit OBSV E&M: 42465 Observation care discharge
--- NOTE | 2018-03-20 13:52 | DS.PCM_ITS ---
<Thiago Hernández - Last Filed: 03/20/18 13:45> Discharge Date and Diagnosis - Problem List Patient Problems: Active and Suspected Problems (Last Reviewed 02/26/18 @ 11:43 by LUNA Carrillo) Chest pain (Acute) Date of Admission: 03/20/18 Date of Discharge: 03/20/18 - Primary Discharge Diagnosis Active and Suspected Problems (Last Reviewed 02/26/18 @ 11:43 by LUNA Carrillo) Chest pain (Acute) - musculoskeletal CAD status post cath October 2016 with no intervention Paroxysmal atrial fibrillation-currently in sinus rhythm, status post recent ablation and cardioversion Hypertension Hyperlipidemia Obesity GERD BPH Stable ascending aortic aneurysm [place] - Secondary Discharge Diagnosis Chronic Problems (Last Reviewed 02/26/18 @ 11:43 by ERNIE Carrillo) Obesity (BMI 30.0-34.9) (Chronic) Ascending aorta dilatation (Chronic) SVT (supraventricular tachycardia) (Chronic) LORETTA (obstructive sleep apnea) (Chronic) Atherosclerotic heart disease of [place] coronary artery without angina pectoris (Chronic) History of left heart catheterization (Chronic) 11/09/2016 @ [facility], per Dr. Cory Harley: normal coronaries Nephrolithiasis (Chronic) HTN (hypertension) (Chronic) Anxiety (Chronic) PAF (paroxysmal atrial fibrillation) (Chronic) Multiple cardioversions, [facility] ablation (2nd). Recent ED presentation 02/24/18 w/ Atrial Fibrillation w/ RVR, successful cardioversion performed. GERD (gastroesophageal reflux disease) (Chronic) Obesity (BMI 30-39.9) (Chronic) BPPV (benign paroxysmal positional vertigo) (Chronic) HLD (hyperlipidemia) (Chronic) Thoracic aortic aneurysm without rupture (Chronic) Hospital Course and Treatment Imaging Results: 03/20/18 05:55 Nuclear Stress Test - Chemical [NM] AM (NON MEDS)-negative for inducible ischemia RAD/Chest 1 View (Portable) IMPRESSION: No active pulmonary disease. Operations: None Procedures: 2-D Echocardiogram, Stress test Summary of Care Provided: Physical exam on day of discharge: General: Resting comfortably NAD Psych: A/Ox3 normal affect HEENT: [place] AT NC Neck: Supple NT CV: RRR no m/t/r/g/h, CP reproducible with palpation. Resp: CTA Abd: [id number] Soft NT no guarding or rigidity Ext: DP2+= no edema Skin: W/D normal turgor Lymph/Heme: No active bleeding or adenopathy Neuro: CN2-12 intact Hospital course: The patient is a 48 year old M with a history of CAD status post cath in October 2016 with no intervention, obesity, paroxysmal atrial fibrillation status post recent ablation and cardioversion, obstructive sleep apnea, hypertension, hyperlipidemia, known ascending aortic aneurysm, and GERD, who presented to the emergency room complaining of midsternal sharp chest pain intermittently for about 2 months, progressively worsening. He had no dyspnea or nausea. He is found to have a negative chest x-ray, negative troponin, no EKG changes. He was admitted to the PCU and placed on cardiac monitoring. Troponin was cycled and remained negative. He had no events on telemetry. He remained in sinus rhythm throughout. He had a recent CTA of the chest for his AAA in January which measured 4.4 cm, and his prior CTA 3 months before that also measured 4.4. The following morning he underwent a stress test which was negative for inducible ischemia. His chest pain was felt to be musculoskeletal due to its nature and ability to reproduce it with palpation. At discharge I advised him to discontinue taking ibuprofen, and that he should use acetaminophen for pain. Ibuprofen is contraindicated with concurrent use of Eliquis. Patient was discharged home in stable condition. I advised him to follow-up with his PCP and with his api product manager Dr. Harris. This patient was seen by Thiago Hernández PA-C under the supervision of Doctor Susan. [] Discharge Diet: Low fat/ Low Cholesterol, 2000 mg Sodium Diet Discharge Activity: Return to Normal Activity Home Medications: Medications to take at Discharge Pantoprazole Sodium [Protonix] 40 mg PO DAILY 04/22/16 Carvedilol [Coreg] 25 mg PO BID 01/31/17 Albuterol Inhaler [Ventolin Hfa] 1 - 2 puff INHALATION Q4H PRN PRN #1 inhaler Apixaban [Eliquis] 5 mg PO BID 09/21/17 lisinopril 40 mg tablet 40 mg PO QDAY #90 tab 10/29/17 atorvastatin 20 mg tablet 20 mg PO QDAY #60 tab 11/11/17 gabapentin 100 mg capsule 100 mg PO QHS #30 cap 01/14/18 meclizine 12.5 mg tablet 12.5 mg PO QODAY PRN #30 tab 01/14/18 tamsulosin 0.4 mg capsule 0.4 mg PO QDAY #90 cap 02/18/18 amlodipine 5 mg tablet 5 mg PO DAILY #90 tab 02/26/18 Colchicine 0.6 mg PO QDAY 03/20/18 Furosemide 40 mg PO QDAY 03/20/18 Venlafaxine HCl [Venlafaxine HCl ER] 150 mg PO QDAY 03/20/18 Primary Care Physician: Kristyn Bearden MD [Primary Care Provider] - Please follow up with your Primary Care Physician in: 1-2 weeks Please Follow Up With: Jesse Harris MD When: 2 weeks Disposition: Home Minutes spent on discharge:: 35 Patient Condition:: Stable Medical Necessity - Tobacco Use Smoking Status: Never smoker Tobacco Use: Non-smoker Meaningful Use Info Meaningful Use Diagnoses (Choose all that apply): None applicable <Bradly Davis - Last Filed: 03/20/18 14:24> Discharge Date and Diagnosis Date of Admission: 03/20/18 Date of Discharge: 03/20/18 - Primary Discharge Diagnosis Active and Suspected Problems (Last Reviewed 02/26/18 @ 11:43 by LUNA Carrillo) Chest pain (Acute) - Secondary Discharge Diagnosis Chronic Problems (Last Reviewed 02/26/18 @ 11:43 by ERNIE Carrillo) Obesity (BMI 30.0-34.9) (Chronic) Ascending aorta dilatation (Chronic) SVT (supraventricular tachycardia) (Chronic) LORETTA (obstructive sleep apnea) (Chronic) Atherosclerotic heart disease of [place] coronary artery without angina pectoris (Chronic) History of left heart catheterization (Chronic) 11/09/2016 @ [facility], per Dr. Cory Harley: normal coronaries Nephrolithiasis (Chronic) HTN (hypertension) (Chronic) Anxiety (Chronic) PAF (paroxysmal atrial fibrillation) (Chronic) Multiple cardioversions, [facility] ablation (2nd). Recent ED presentation 02/24/18 w/ Atrial Fibrillation w/ RVR, successful cardioversion performed. GERD (gastroesophageal reflux disease) (Chronic) Obesity (BMI 30-39.9) (Chronic) BPPV (benign paroxysmal positional vertigo) (Chronic) HLD (hyperlipidemia) (Chronic) Thoracic aortic aneurysm without rupture (Chronic) Hospital Course and Treatment Imaging Results: 03/20/18 05:55 Nuclear Stress Test - Chemical [NM] AM (NON MEDS) Operations: None Procedures: 2-D Echocardiogram, Stress test Summary of Care Provided: In and examined independently. Agree with the above note by the nurse practitioner. The patient is a 48 year old M is with chest pain. Said it was worse with cough and deep respirations. Patient underwent stress test today that was negative. Patient on my physical exam did have some reproducible anterior chest wall tenderness and was some prominence of some of his anterior ribs which were tender to palpation. I feel that the patient's chest pain was a muscular skeletal in etiology and does not warrant further workup at this time. Patient is discharged home in stable condition. [] Discharge Diet: Low fat/ Low Cholesterol, 2000 mg Sodium Diet Discharge Activity: Return to Normal Activity Disposition: Home Patient Condition:: Stable Medical Necessity - Tobacco Use Smoking Status: Never smoker Tobacco Use: Non-smoker Meaningful Use Info Meaningful Use Diagnoses (Choose all that apply): None applicable Code Visit OBSV E&M: 59420 Observation care discharge
[2018-03-20] MEDS: APIXABAN 5 MG TABLET PO (14:01)
== END 2018-03-20 16:07 | disposition home or self-care (01) ==
LOC: ED 03:28 → PCU 04:02
PROVIDERS: Admitting Provider Family Medicine; Emergency Provider Emergency Medicine; Family Provider Internal Medicine; PCP Internal Medicine
DX: R07.89 Other chest pain (principal); R06.02 Shortness of breath; I25.2 Old myocardial infarction; I10 Essential (primary) hypertension; I25.10 Atherosclerotic heart disease of native coronary artery without angina pectoris; E78.5 Hyperlipidemia, unspecified; E66.9 Obesity, unspecified; K21.9 Gastro-esophageal reflux disease without esophagitis; I48.0 Paroxysmal atrial fibrillation; N40.0 Benign prostatic hyperplasia without lower urinary tract symptoms; G47.33 Obstructive sleep apnea (adult) (pediatric); Z68.32 Body mass index [BMI] 32.0-32.9, adult; Z71.3 Dietary counseling and surveillance; Z79.01 Long term (current) use of anticoagulants; Z79.899 Other long term (current) drug therapy; I71.2 Thoracic aortic aneurysm, without rupture
CPT/HCPCS: 36415; 71045; 78452; 80048; 80061; 83735; 84439; 84443; 84484; 85025; 85027; 85610; 85730; 93005; 93017; 93306; 96361; 96374; 96375; 96376; 97802; 99218; 99285; A9500; J7030; Q9957; A4216; C8929; G0378; J2405; J2785

== ENCOUNTER 2018-03-21 22:09 | Emergency (ER) | payer MEDICARE, SELFPAY ==
[2018-03-21 22:09] VITALS: BP 158/91; PULSE 95; RESP 15; TEMP 36.6; BMI 32.9
--- NOTE | 2018-03-21 22:36 | ED.VISSUMM ---
- ER Visit Summary Date of Service: 03/21/18 Chief Complaint: Abdominal pain, flank pain History of Present Illness: The patient is a 48 M presents with increasing upper abdominal and flank pain since this morning. Nausea vomiting ?1. No hematemesis. States has dysuria. Similar symptoms when he had kidney stone in the past. He states one needed to be removed a year ago, followed by Dr. Langley. Pain is 9 out of 10. Use Tylenol 10 AM this morning.patient is on Eliquis for history of paroxysmal atrial fibrillation. Patient is discharged yesterday for chest pain symptoms. Denies any current chest pains. Physical Examination: General: Alert and oriented ?3, mild distress HEENT: Normocephalic, atraumatic. Moist mucosa membranes Neck: supple, nontender. Cardiovascular: Regular rate and rhythm, no murmurs Respiratory: Normal breath sounds, symmetric, no distress Abdomen: Soft, nontender, nondistended, negative Mckee's or McBurney's tenderness. Back: No CVA tenderness Extremities: Nontender, no edema, pulses intact ?4 Neuro: no focal neurological deficits. Test Results: CBC, BMP normal. Lipase 196. Liver enzymes normal. UA normal. No hematuria. CT flank with no acute process. Renal stones with no urolithiasis. Emergency Department Course and Treatment: Patient states pain is 9 out of 10. History of nephrolithiasis. Is concerned due to bilateral symptoms. Abdominal labs are negative UA was negative. Flank CT obtain reports noting similar renal stones from the past. There is no urolithiasis. Discussed with patient these do not cause pain unless they moved down. Patient will follow up with his urologist as scheduled in the upcoming week for discussion for further management. He will use Tylenol in the meantime. All questions were answered. Treatment Plan: [] Disposition: Discharge Impression: Flank pain unknown etiology This note was generated with [employer] dictation software. It may contain incorrect words, spelling, and punctuation that were not noted in review of the chart prior to signing ED Disposition - Plan for ED Patient: Disposition: Home or Assisted Living Chief Complaint: Complaint Diagnosis: Flank pain Instructions: ED Flank Pain Uncertain Cause Referrals: Kristyn Bearden MD [Primary Care Provider] - Additional Instructions: Follow with Dr. Langley as scheduled next week. Use Tylenol as needed for pain.
[2018-03-21] MEDS: 0.9% Normal Saline 1,000 ML 250 ML IV (22:50)
[2018-03-21] MEDS: Ondansetron 4 MG/2 ML Vial IV (22:51)
[2018-03-21] MEDS: Morphine 4 MG/ML Syringe IV (22:53)
[2018-03-21 23:05] LABS: Bacteria 0 SEEN /hpf (None Seen); Mucous, Urine 0 SEEN /hpf (<or=2+); Red Blood Cells-Urine 0 SEEN /hpf (0-5); White Blood Cells 0 SEEN /hpf (0-5)
[2018-03-21 23:07] LABS: Color, Urine Yellow (Yellow); Glucose, Dipstick Normal (Normal); Ketone-Dipstick Negative (Negative); Leukocyte Esterase-Dipstick Negative /ul (Negative); Nitrite-Dipstick Negative (Negative); Occult Blood-Urine Negative /ul (Negative); Protein-Dipstick Negative (Negative); Urine Bilirubin Dipstick Negative (Negative); Urine Clarity Sl. Cloudy (Clear); Urine Urobilinogen Normal (Normal)
[2018-03-21 23:08] LABS: Absolute Lymphocyte Count 3.88 X10^3/ul (0.83-4.51); Absolute Neutrophil Count 5.7 X10^3/uL (2.0-7.7); Basophil# 0.03 X10^3/uL; Basophil% 0.3 % (0-1); Eosinophil# 0.12 X10^3/uL; Eosinophils% 1.1 % (0-5); Hematocrit 46.2 % (40-54); Hemoglobin 14.9 g/dl (13.0-16.5); Lymphocyte # 3.88 X10^3/ul (4.0); Lymphocyte % 35.8 % (19-41); Mean Corp Hgb Conc 32.3 g/gl (32-36); Mean Corpuscular Volume 83.8 fL (80-94); Mean Platelet Vol. 8.7 fl (6.2-12.0); Monocyte# 1.14 X10^3/uL; Monocyte% 10.5 % (0-10); Neutrophil # 5.67 X10^3/uL (2.7-7.7); Neutrophil % 52.2 % (47-70); Platelet Count 279 K/mm3 (150-450); RBC Distribution Width CV 16.3 % (11.6-14.6); RBC Distribution Width SD 50.2 fl (35.1-43.9); Red Blood Count 5.51 M/mm3 (4.6-6.2); White Blood Count 10.9 K/mm3 (4.4-11.0)
[2018-03-21 23:09] LABS: POSITIVE COUNT NO; POSITIVE DIFFERENTIAL NO; POSITIVE MORPHOLOGY NO
[2018-03-21 23:13] LABS: Squamous Epithelial Cells - UA 0-5 SEEN /hpf (0-5)
[2018-03-21 23:24] LABS: AST(SGOT) 20 U/L (15-37); Alanine Aminotransfer ALT/SGPT 37 U/L (16-61); Albumin, Serum 3.6 g/dL (3.2-5.0); Alkaline Phosphatase 106 U/L (45-117); Anion Gap 6 (5-15); BUN 13 mg/dL (7-18); BUN/Creat Ratio 15.2 RATIO (10-20); Calcium,Total 9.4 mg/dL (8.5-10.1); Chloride 105 mmol/L (98-107); Creatinine, Serum 0.86 mg/dL (0.70-1.30); EST Glomerular Filtration Rate 101 mL/min (>60); Est Glom Filt Rate - Afr Amer 123 mL/min (>60); Estimated Creatinine Clearance 111.88 ml/min; Globulin 3.6 g/dL (2.2-4.2); Glucose 79 mg/dL (74-106); Lipase 196 U/L (73-393); Potassium 4.1 mmol/L (3.5-5.1); Protein, Total 7.2 g/dL (6.4-8.2); Sodium Level 139 mmol/L (136-145)
--- NOTE | 2018-03-21 23:40 | CT_ITS ---
STUDY: CT ABDOMEN AND PELVIS WITHOUT CONTRAST REASON FOR EXAM: Male, 48 years old. Flank pain RADIATION DOSAGE (If Supplied By Facility): CTDIvol = ( 13.00 ) mGy, DLP = ( 1092.36 ) mGycm TECHNIQUE: Transaxial images were obtained from the lower chest to the upper thighs without oral contrast, and without intravenous contrast. Sagittal and coronal images were reconstructed. Individualized dose optimization techniques were used for this CT. COMPARISON: February 16, 2018 FINDINGS: There is minimal dependent atelectasis in both lung bases. There is no pleural effusion. The heart is normal in size. The liver is unremarkable. The gallbladder and biliary ducts are unremarkable. The spleen is unremarkable. The pancreas is unremarkable. The adrenal glands are unremarkable. There is a 3 mm calcification in the midpole of the right kidney. There are approximately five calcifications in the lower pole of the right kidney with the largest measuring almost 5 mm in size. There is no dilatation of the collecting system in the right kidney. The left kidney is unremarkable. There is no dilatation of the collecting system in the left kidney. The stomach is unremarkable. The small bowel is unremarkable. The colon is unremarkable. The appendix is visualized and appears normal. There are minimal scattered vascular calcifications. The IVC is unremarkable. The retroperitoneum is unremarkable. There is no free fluid in the abdomen. The urinary bladder is unremarkable. The prostate is normal in size with coarse calcifications. There are small phleboliths scattered in the lower pelvis. The soft tissues are unremarkable. There are mild degenerative changes in the visualized spine. There are surgical changes in the lower lumbar spine. CT/Abdomen/Pelvis without Cont IMPRESSION: Calyceal stones are again seen in the right kidney. At least six are seen in the mid and lower poles. The largest measures almost 5 mm in size. There is no dilatation of the collecting system on the right side. No stones are seen on the left and there is no dilatation of the collecting system on the left side. There are no acute bowel abnormalities. There is no ascites, free air, inflammation or significant lymphadenopathy. Electronically Signed: Diana Baptiste MD at 1:15 EDT Tel Direct: [phone], Service support ,
[2018-03-22] MEDS: oxyCODONE 5 MG Tablet PO (00:21)
== END 2018-03-22 01:39 | disposition home or self-care (01) ==
PROVIDERS: Emergency Provider Emergency Medicine; Family Provider Internal Medicine; PCP Internal Medicine
DX: R10.9 Unspecified abdominal pain (principal); I48.0 Paroxysmal atrial fibrillation; I25.10 Atherosclerotic heart disease of native coronary artery without angina pectoris; I71.4 Abdominal aortic aneurysm, without rupture; I47.1 Supraventricular tachycardia; I10 Essential (primary) hypertension; K21.9 Gastro-esophageal reflux disease without esophagitis; N40.0 Benign prostatic hyperplasia without lower urinary tract symptoms; E78.00 Pure hypercholesterolemia, unspecified; Z87.442 Personal history of urinary calculi; Z79.01 Long term (current) use of anticoagulants; Z79.899 Other long term (current) drug therapy
CPT/HCPCS: 74176; 80048; 80076; 81001; 83690; 85025; 96361; 96374; 96375; 99282; J7030; A4216; J2405

== ENCOUNTER 2018-04-01 16:15 | Emergency (ER) | payer MEDICARE, SELFPAY ==
[2018-04-01 16:16] VITALS: BP 128/110; PULSE 98; RESP 16; TEMP 37.2; O2SAT 98; BMI 33.3
--- NOTE | 2018-04-01 16:56 | EKG12_ITS ---
Test Reason : CP Blood Pressure : / mmHG Vent. Rate : 091 BPM Atrial Rate : 091 BPM P-R Int : 148 ms QRS Dur : 082 ms QT Int : 356 ms P-R-T Axes : -02 007 021 degrees QTc Int : 437 ms Normal sinus rhythm Normal ECG Confirmed by NABILA CONNOR, JEANCARLOS ([id number]), manuscript editor RICCO LUZ ([id number]) on 04/02/2018 4:59:24 PM Referred By: ZAKI Confirmed By:JEANCARLOS DAHL MD
--- NOTE | 2018-04-01 16:57 | CT_ITS ---
STUDY: CTA CHEST REASON FOR EXAM: Male, 48 years old. Chest pain RADIATION DOSAGE (If Supplied By Facility): CTDIvol = ( 15.06 ) mGy, DLP = ( 681.51 ) mGycm TECHNIQUE: The examination was performed with the intravenous administration of 100 ml of Isovue 300 contrast material. Post-processing of the angiographic images was performed, with multiplanar reformation and 3D reconstruction. Individualized dose optimization techniques were used for this CT. COMPARISON: None. FINDINGS: Normal enhancement of the main pulmonary artery and right and left pulmonary arteries. Normal enhancement of the bilateral peripheral pulmonary arteries. There is no demonstrated pulmonary embolism. Ectatic ascending thoracic aorta measuring 4.3 cm in diameter. Normal visualized great vessels. There is no demonstrated aortic dissection. Normal heart and pericardium. Normal mediastinum. Normal hilar regions. Normal visualized trachea and bronchi. The lungs are well expanded. Nonspecific punctate left upper lobe peripheral nodule, image 172.. Normal pleura. Normal chest wall structures. Normal osseous structures. Normal visualized upper abdomen. CT/CTA Chest W/WO Contrast IMPRESSION: No demonstrated pulmonary embolism or arterial dissection. Dilated ascending aorta. Nonspecific left upper lobe punctate nodule in the periphery. Electronically Signed: Carlos Atkins DO at 18:18 EDT Tel [phone], Service support ,
[2018-04-01 17:00] VITALS: BP 139/107; PULSE 88; RESP 19; O2SAT 97
[2018-04-01 17:37] LABS: Absolute Lymphocyte Count 2.53 X10^3/ul (0.83-4.51); Absolute Neutrophil Count 3.6 X10^3/uL (2.0-7.7); Basophil# 0.03 X10^3/uL; Basophil% 0.4 % (0-1); Eosinophil# 0.08 X10^3/uL; Eosinophils% 1.2 % (0-5); Hematocrit 43.9 % (40-54); Lymphocyte # 2.53 X10^3/ul (4.0); Lymphocyte % 36.9 % (19-41); Mean Corp Hgb Conc 31.9 g/gl (32-36); Mean Corpuscular Hgb 26.6 pg (27.0-32.0); Mean Corpuscular Volume 83.5 fL (80-94); Mean Platelet Vol. 8.7 fl (6.2-12.0); Monocyte# 0.56 X10^3/uL; Monocyte% 8.2 % (0-10); Neutrophil # 3.63 X10^3/uL (2.7-7.7); Platelet Count 266 K/mm3 (150-450); RBC Distribution Width CV 15.9 % (11.6-14.6); RBC Distribution Width SD 48.5 fl (35.1-43.9); Red Blood Count 5.26 M/mm3 (4.6-6.2); White Blood Count 6.9 K/mm3 (4.4-11.0)
[2018-04-01 17:44] LABS: POSITIVE COUNT NO; POSITIVE DIFFERENTIAL NO; POSITIVE MORPHOLOGY NO
[2018-04-01 18:06] VITALS: BP 129/103; PULSE 88; RESP 24; O2SAT 96
[2018-04-01 18:07] LABS: Anion Gap 5 (5-15); BUN 14 mg/dL (7-18); BUN/Creat Ratio 18.5 RATIO (10-20); Calcium,Total 8.6 mg/dL (8.5-10.1); Chloride 109 mmol/L (98-107); Creatinine, Serum 0.76 mg/dL (0.70-1.30); EST Glomerular Filtration Rate 117 mL/min (>60); Est Glom Filt Rate - Afr Amer 142 mL/min (>60); Glucose 84 mg/dL (74-106); Potassium 3.8 mmol/L (3.5-5.1); Sodium Level 140 mmol/L (136-145)
[2018-04-01 19:04] VITALS: BP 137/109; PULSE 84; RESP 21; O2SAT 99
[2018-04-01] MEDS: Ketorolac 30 MG/ML Syringe IV (19:04)
--- NOTE | 2018-04-01 19:09 | ED.VISSUMM ---
- ER Visit Summary Date of Service: 04/01/18 Chief Complaint: Chest pain History of Present Illness: The patient is a 48 M who states for the past 4 days he is on on and off chest pain. He describes it as sharp and tight in the left side of his chest going up into his neck. States his atrial fibrillation has been off and on yesterday about 4 times once today. Call for his office and advised him to come to the emergency room. Had a heart catheterization in October 2016 was negative. He was just admitted to the hospital in February 2018 the stress test that was negative. He has another heart catheterization scheduled in 6 days. He has a known thoracic aneurysm in about 4.3 cm and he is worried that his aneurysm has ruptured. He denies any cough. No significant shortness of breath except on exertion. Physical Examination: Afebrile vital signs are stable Gen: Well-nourished well-developed Head: Normocephalic atraumatic Eyes: Perrl EOMI ENT: TMs clear no rhinorrhea moist mucous membranes Neck: Supple no lymphadenopathy no JVD nontender CVS: Regular rate rhythm no murmurs normal S1-S2 Respiratory: No distress clear to auscultation bilaterally chest nontender Abdomen: Soft nontender nondistended normal bowel sounds no masses Back: Nontender Extremity: Nontender no edema Skin: Normal color no rash Neuro: alert orientated ?3 CN II-XII intact normal strength sensation reflexes gait cerebellar Psych: Anxious Test Results: EKG sinus at a rate of 91 appears unchanged from prior. CBC chemistries showed a chloride of 109 troponin less than 0.015. CT of the chest demonstrated no PE no evidence of dissection and his aneurysm is at 4.3. Emergency Department Course and Treatment: Patient received Toradol and Xanax. He will be discharged home to follow-up with his road cutter return if worsening or concerns Impression: 1. Chest pain 2. Thoracic aortic aneurysm This note was generated with [employer] dictation software. It may contain incorrect words, spelling, and punctuation that were not noted in review of the chart prior to signing ED Disposition - Plan for ED Patient: Disposition: Home or Assisted Living Chief Complaint: Chest Pain Instructions: ED Chest Pain Atypical Unkn Cause Referrals: Kristyn Bearden MD [Primary Care Provider] - Jesse Harris MD [STAFF PHYSICIAN] - Keep Gabrielle appointment
[2018-04-01 19:21] VITALS: BP 132/102; PULSE 95; RESP 18; O2SAT 97
[2018-04-01] MEDS: ALPRAZolam 0.5 MG Tablet PO (19:21)
== END 2018-04-01 19:24 | disposition home or self-care (01) ==
PROVIDERS: Emergency Provider Emergency Medicine; Family Provider Internal Medicine; PCP Internal Medicine
DX: R07.9 Chest pain, unspecified (principal); I71.2 Thoracic aortic aneurysm, without rupture; I48.0 Paroxysmal atrial fibrillation; I10 Essential (primary) hypertension; E78.00 Pure hypercholesterolemia, unspecified; K21.9 Gastro-esophageal reflux disease without esophagitis; G47.33 Obstructive sleep apnea (adult) (pediatric); E66.9 Obesity, unspecified; Z68.33 Body mass index [BMI] 33.0-33.9, adult; Z79.82 Long term (current) use of aspirin; Z79.01 Long term (current) use of anticoagulants; Z79.899 Other long term (current) drug therapy
CPT/HCPCS: 71275; 80048; 84484; 85025; 93005; 96374; 99285; Q9967; A4216

== ENCOUNTER 2018-04-02 12:09 | Emergency (ER) | payer MEDICARE, SELFPAY ==
[2018-04-02] VITALS (7 sets, daily range): BP systolic 128–152; BP diastolic 89–119; PULSE 94–190; RESP 16–25; TEMP 36.1; O2SAT 95–100; BMI 33.2
--- NOTE | 2018-04-02 12:21 | EKG12_ITS ---
Test Reason : PALPS Blood Pressure : / mmHG Vent. Rate : 114 BPM Atrial Rate : 114 BPM P-R Int : 160 ms QRS Dur : 076 ms QT Int : 312 ms P-R-T Axes : 000 -02 -01 degrees QTc Int : 430 ms Sinus tachycardia Nonspecific ST segment abnormality Abnormal ECG Confirmed by INDER CONNOR, ASAEL ([id number]), photography editor RICCO LUZ ([id number]) on 04/04/2018 2:39:43 PM Referred By: CANDACE Confirmed By:ASAEL LOVING MD
[2018-04-02] MEDS: Adenosine 6 MG/2 ML Syringe IV (12:25)
[2018-04-02] MEDS: 0.9% Normal Saline 1,000 ML 1000 ML IV (12:25)
--- NOTE | 2018-04-02 12:31 | ED.RN ---
ADENOSIN GIVEN AT 1231. HR AFTER 113-120
--- NOTE | 2018-04-02 12:36 | EKG12_ITS ---
Test Reason : PALPS Blood Pressure : / mmHG Vent. Rate : 187 BPM Atrial Rate : 202 BPM P-R Int : 000 ms QRS Dur : 078 ms QT Int : 256 ms P-R-T Axes : 000 012 180 degrees QTc Int : 451 ms Supraventricular tachycardia Nonspecific ST abnormality Abnormal ECG Confirmed by INDER CONNOR, ASAEL ([id number]), publication editor RICCO LUZ ([id number]) on 04/04/2018 2:42:44 PM Referred By: CANDACE Confirmed By:ASAEL LOVING MD
--- NOTE | 2018-04-02 12:36 | RAD_ITS ---
STUDY: X-RAY CHEST REASON FOR EXAM: Male, 48 years old. A. Fib TECHNIQUE: Single frontal view of the chest. COMPARISON: March 20, 2018 FINDINGS: The lungs are clear and expanded. There is no demonstrated pleural abnormality. Normal size heart. Normal mediastinum and ruben. Normal visualized pulmonary arteries. There is a stable prominent ascending aorta. Normal visualized thoracic spine. Normal visualized ribs, clavicles, and shoulders. There is no demonstrated abnormality of the visualized soft tissue structures of the upper abdomen. RAD/Chest 1 View (Portable) IMPRESSION: Stable examination demonstrating no acute cardiopulmonary process. Electronically Signed: Sasha Valverde MD at 14:39 EDT Tel , Service support ,
[2018-04-02] MEDS: Aspirin 81 MG TAB.CHEW 324 MG PO (12:40)
[2018-04-02 12:47] LABS: Absolute Lymphocyte Count 3.32 X10^3/ul (0.83-4.51); Absolute Neutrophil Count 4.4 X10^3/uL (2.0-7.7); Basophil# 0.03 X10^3/uL; Basophil% 0.4 % (0-1); Eosinophils% 1.2 % (0-5); Hematocrit 48.4 % (40-54); Hemoglobin 15.8 g/dl (13.0-16.5); Lymphocyte # 3.32 X10^3/ul (4.0); Lymphocyte % 39.7 % (19-41); Mean Corp Hgb Conc 32.6 g/gl (32-36); Mean Corpuscular Hgb 27.1 pg (27.0-32.0); Mean Platelet Vol. 8.7 fl (6.2-12.0); Monocyte# 0.52 X10^3/uL; Monocyte% 6.2 % (0-10); Neutrophil # 4.38 X10^3/uL (2.7-7.7); Neutrophil % 52.4 % (47-70); Platelet Count 305 K/mm3 (150-450); RBC Distribution Width CV 15.8 % (11.6-14.6); RBC Distribution Width SD 47.8 fl (35.1-43.9); Red Blood Count 5.83 M/mm3 (4.6-6.2); White Blood Count 8.4 K/mm3 (4.4-11.0)
[2018-04-02 12:49] LABS: POSITIVE COUNT NO; POSITIVE DIFFERENTIAL NO; POSITIVE MORPHOLOGY NO
[2018-04-02 12:59] LABS: Anion Gap 5 (5-15); BUN 12 mg/dL (7-18); BUN/Creat Ratio 12.6 RATIO (10-20); Chloride 106 mmol/L (98-107); Creatinine, Serum 0.95 mg/dL (0.70-1.30); EST Glomerular Filtration Rate 90 mL/min (>60); Est Glom Filt Rate - Afr Amer 109 mL/min (>60); Estimated Creatinine Clearance 101.28 ml/min; Glucose 100 mg/dL (74-106); Potassium 3.8 mmol/L (3.5-5.1); Sodium Level 140 mmol/L (136-145)
[2018-04-02] MEDS: Ondansetron 4 MG/2 ML Vial IV (14:14)
--- NOTE | 2018-04-02 14:49 | ED.VISSUMM ---
- ER Visit Summary Date of Service: 04/02/18 Chief Complaint: Palpitations History of Present Illness: The patient is a 48 M with a history of recurrent SVT with multiple cardioversions in the past presents with SVT. He felt himself go into it this morning. He has no chest pain or shortness of breath. No diaphoresis. He is not certain if he missed a dose of medication. He had an ablation last September and has not had an episode since then. He is scheduled for a heart cath with Dr. Harris next Saturday. He is still on his anticoagulants until this Saturday and after that he is holding them for the procedure. Physical Examination: He is tachycardic in the 180s. Other vitals are within normal limits. He is not in distress. Neck is supple. Heart tones are regular. No murmur. Lungs clear bilaterally. No clinical evidence of DVT. Normal neurologic exam. Test Results: Is all within normal limits. Troponin negative. EKG revealed SVT. He was consented and treated with one 6 mg dose of adenosine. He converted easily to sinus rhythm. He remained in sinus rhythm with a normal rate throughout the rest of his stay and his vital signs all remained within normal limits. He now has no complaints. I discussed the case with Dr. Harris who knows him well. He is comfortable with discharge home and he will keep his heart cath appointment. He will return if worse before then. Emergency Department Course and Treatment: Follow-up with Dr. Harris for heart cath Treatment Plan: Follow-up Disposition: Home stable condition Impression: Initial encounter SVT with chemical cardioversion This note was generated with [employer] dictation software. It may contain incorrect words, spelling, and punctuation that were not noted in review of the chart prior to signing ED Disposition - Plan for ED Patient: Chief Complaint: Palpitations Diagnosis: SVT (supraventricular tachycardia) Additional Instructions: Keep your heart cath appointment
== END 2018-04-02 15:20 | disposition home or self-care (01) ==
LOC: ED 13:09
PROVIDERS: Emergency Provider Emergency Medicine; Family Provider Internal Medicine; PCP Internal Medicine
DX: I47.1 Supraventricular tachycardia (principal); I10 Essential (primary) hypertension; E78.00 Pure hypercholesterolemia, unspecified; Z79.82 Long term (current) use of aspirin; Z79.01 Long term (current) use of anticoagulants; Z79.899 Other long term (current) drug therapy; Z86.73 Personal history of transient ischemic attack (TIA), and cerebral infarction without residual deficits
CPT/HCPCS: 71045; 80048; 84484; 85025; 93005; 96361; 96374; 99284; J7030; A4216; J0153; J2405

== ENCOUNTER → 2018-04-07 07:55 | Day surgery (SDC) | payer MEDICARE, SELFPAY ==
[2018-04-04 13:37] VITALS: BMI 33.3
--- NOTE | 2018-04-07 07:42 | PCM.CONS.C ---
Reason for Consult Date of Consultation: 04/07/18 Reason for Consultation: Preop consultation History of Present Illness: ATTILA DEL CID, is a 48 M who presents to the hospital today for a cardiac catheterization.. He is a gentleman with a history of supraventricular tachycardia status post SVT ablation over 20 years ago he had had palpitations undergone multiple cardioversion procedures and was noted to have atrial fibrillation with rapid ventricular response rate and was sent to the [facility] where he underwent a repeat ablation. As you know he also has a 5 cm ascending aortic aneurysm. After the ablation he tells me that he has continued to have some chest discomfort he had presented to the emergency room and there was no evidence of pericardial effusion. He continues to have neck discomfort and chest discomfort sometimes which are sharp and other times dull. He had been placed on colchicine as well as nonsteroidal anti-inflammatory agents but it appears that he has discontinued both of these. His echocardiogram was remembered demonstrated an ejection fraction of 60-65% with mild pulmonary hypertension. He recently presented to the emergency room with a supraventricular tachyarrhythmia. He has continued to complain of chest pain despite normal stress test as well as echocardiograms. His last catheterization was in October 2016 which was noted to be normal. His physical exam today demonstrates clear lung jackson regular rate and rhythm and no pedal edema. There is no pericardial friction rub noted. Past Medical History Allergies/Adverse Reactions: Allergies clonidine Allergy (Intermediate, Verified 04/02/18 12:11) rash levofloxacin [From Levaquin] Allergy (Verified 04/02/18 12:11) Rash Penicillins Allergy (Verified 04/02/18 12:11) Hives bupropion Adverse Reaction (Intermediate, Verified 04/02/18 12:11) vomiting celecoxib [From Celebrex] Adverse Reaction (Intermediate, Verified 04/02/18 12:11) vomiting eletriptan Adverse Reaction (Intermediate, Verified 04/02/18 12:11) Vomiting topiramate [From Topamax] Adverse Reaction (Intermediate, Verified 04/02/18 12:11) vomiting fentanyl Adverse Reaction (Unknown, Verified 04/02/18 12:11) unknown hydrocodone bitartrate [From Vicodin] Adverse Reaction (Verified 04/02/18 12:11) Nausea Home Medications: Ambulatory Orders Medication Instructions Recorded Pantoprazole Sodium [Protonix] 40 mg PO DAILY 04/22/16 Carvedilol [Coreg] 25 mg PO BID 01/31/17 Albuterol Inhaler [Ventolin Hfa] 1 - 2 puff INHALATION Q4H PRN PRN 07/15/17 #1 inhaler Apixaban [Eliquis] 5 mg PO BID 09/21/17 lisinopril 40 mg tablet 40 mg PO QDAY #90 tab 10/29/17 atorvastatin 20 mg tablet 20 mg PO QDAY #60 tab 11/11/17 gabapentin 100 mg capsule 100 mg PO QHS #30 cap 01/14/18 meclizine 12.5 mg tablet 12.5 mg PO QODAY PRN #30 tab 01/14/18 tamsulosin 0.4 mg capsule 0.4 mg PO QDAY #90 cap 02/18/18 amlodipine 5 mg tablet 5 mg PO DAILY #90 tab 02/26/18 Colchicine 0.6 mg PO QDAY 03/20/18 Furosemide 40 mg PO QDAY 03/20/18 Venlafaxine HCl [Venlafaxine HCl 150 mg PO QDAY 03/20/18 ER] aspirin 81 mg tablet,delayed 81 mg PO QDAY #30 tab 04/01/18 release clopidogrel 75 mg tablet 75 mg PO .COMPLEX #30 tab 04/01/18 Past Medical History (Chronic Problems): Chronic Problems (Last Reviewed 02/26/18 @ 11:43 by Tawanda Colon NP-C) Obesity (BMI 30.0-34.9) (Chronic) Ascending aorta dilatation (Chronic) SVT (supraventricular tachycardia) (Chronic) LORETTA (obstructive sleep apnea) (Chronic) Atherosclerotic heart disease of [place] coronary artery without angina pectoris (Chronic) History of left heart catheterization (Chronic) 11/09/2016 @ [facility], per Dr. Cory Harley: normal coronaries Nephrolithiasis (Chronic) HTN (hypertension) (Chronic) Anxiety (Chronic) PAF (paroxysmal atrial fibrillation) (Chronic) Multiple cardioversions, [facility] ablation (2nd). Recent ED presentation 02/24/18 w/ Atrial Fibrillation w/ RVR, successful cardioversion performed. GERD (gastroesophageal reflux disease) (Chronic) Obesity (BMI 30-39.9) (Chronic) BPPV (benign paroxysmal positional vertigo) (Chronic) HLD (hyperlipidemia) (Chronic) Thoracic aortic aneurysm without rupture (Chronic) Surgical History: - - Nephrolithiasis w/ 3 lithotripsies in the right side, back surgery, R TKR, cardiac catheterization without PCI. Psychiatric History: Anxiety - *Family History Maternal Family History: Family History (Last Reviewed 02/26/18 @ 11:43 by ERNIE Carrillo) Brother Hypertension Mother Heart disease Colon cancer Sister Diabetes Sister Diabetes Sister Diabetes History Items: - - Maternal family history of DM, Colon CA, Valvular Heart Disease. Paternal Family History: Family History (Last Reviewed 02/26/18 @ 11:43 by ERNIE Carrillo) Brother Hypertension Mother Heart disease Colon cancer Sister Diabetes Sister Diabetes Sister Diabetes History Items: - - Paternal family history of skin CA. Smoking Status: Never smoker Review of Systems - Review of Systems General: Denies: Fever, Night Sweats, Fatigue Cardiovascular: Denies: Chest Discomfort, Shortness of Breath, Orthopnea, PND, Peripheral Edema, Palpitations, Lightheadedness, Dizziness, Near Syncope, Syncope Respiratory: Denies: Cough, Sputum Production, Hemoptysis Gastrointestinal: Denies: Hematemesis, Hematochezia, Melena Genitourinary: Denies: Dysuria, Hematuria Skin: Denies: Rash Subjectve: Pleasant gentleman in no apparent distress Objective: Weight: 239 lb Body Mass Index (BMI) 33.3 Finger Stick Blood Glucose 95 General: Awake, Alert, Oriented x 3 HEENT: PERRL, EOMI, Sclera Non Icteric Neck: Supple, Good ROM, No Lymph Node Enlargement Lungs: Clear to auscultation Cardiovascular: Regular Rhythm, Normal S1, Normal S2, No Murmurs, No Rubs, No Gallops Rhythm: EKG: ECHO: Stress Test: Cardiac Cath: PCI: CT Surgery: Holter monitor: EPS: PPM: CXR: Chest CT Scan: Assessment/Plan 1. Chest pain. Patient presents with recurrent chest discomfort despite a normal coronary anatomy documented approximately a year and a half ago. He continues to present to the emergency room with the above and therefore it is felt that he should have a follow-up evaluation of his coronary anatomy. Risks benefits alternatives have been explained to him he understands and agrees to proceed. 2. Hypertension. Patient appears to have hypertension which is under good control and no changes will be made to his medications. 3. Supraventricular tachyarrhythmia. Patient has a history of paroxysmal atrial fibrillation as well as supraventricular tachyarrhythmia. He had this ablated. But he says he continues to have symptoms. He will continue to be followed up through the EP service. Thank you for allowing me to participate in the care of your patient. Please don't hesitate to call if any issues arise
--- NOTE | 2018-04-07 07:47 | CON.PCM_ITS ---
Reason for Consult Date of Consultation: 04/07/18 Reason for Consultation: Preop consultation History of Present Illness: ATTILA DEL CID, is a 48 M who presents to the hospital today for a cardiac catheterization.. He is a gentleman with a history of supraventricular tachycardia status post SVT ablation over 20 years ago he had had palpitations undergone multiple cardioversion procedures and was noted to have atrial fibrillation with rapid ventricular response rate and was sent to the [facility] where he underwent a repeat ablation. As you know he also has a 5 cm ascending aortic aneurysm. After the ablation he tells me that he has continued to have some chest discomfort he had presented to the emergency room and there was no evidence of pericardial effusion. He continues to have neck discomfort and chest discomfort sometimes which are sharp and other times dull. He had been placed on colchicine as well as nonsteroidal anti- inflammatory agents but it appears that he has discontinued both of these. His echocardiogram was remembered demonstrated an ejection fraction of 60-65% with mild pulmonary hypertension. He recently presented to the emergency room with a supraventricular tachyarrhythmia. He has continued to complain of chest pain despite normal stress test as well as echocardiograms. His last catheterization was in October 2016 which was noted to be normal. His physical exam today demonstrates clear lung jackson regular rate and rhythm and no pedal edema. There is no pericardial friction rub noted. Past Medical History Allergies/Adverse Reactions: Allergies clonidine Allergy (Intermediate, Verified 04/02/18 12:11) rash levofloxacin [From Levaquin] Allergy (Verified 04/02/18 12:11) Rash Penicillins Allergy (Verified 04/02/18 12:11) Hives bupropion Adverse Reaction (Intermediate, Verified 04/02/18 12:11) vomiting celecoxib [From Celebrex] Adverse Reaction (Intermediate, Verified 04/02/18 12: 11) vomiting eletriptan Adverse Reaction (Intermediate, Verified 04/02/18 12:11) Vomiting topiramate [From Topamax] Adverse Reaction (Intermediate, Verified 04/02/18 12: 11) vomiting fentanyl Adverse Reaction (Unknown, Verified 04/02/18 12:11) unknown hydrocodone bitartrate [From Vicodin] Adverse Reaction (Verified 04/02/18 12:11) Nausea Home Medications: Ambulatory Orders Medication Instructions Recorded Pantoprazole Sodium [Protonix] 40 mg PO DAILY 04/22/16 Carvedilol [Coreg] 25 mg PO BID 01/31/17 Albuterol Inhaler [Ventolin Hfa] 1 - 2 puff INHALATION Q4H PRN PRN 07/15/17 #1 inhaler Apixaban [Eliquis] 5 mg PO BID 09/21/17 lisinopril 40 mg tablet 40 mg PO QDAY #90 tab 10/29/17 atorvastatin 20 mg tablet 20 mg PO QDAY #60 tab 11/11/17 gabapentin 100 mg capsule 100 mg PO QHS #30 cap 01/14/18 meclizine 12.5 mg tablet 12.5 mg PO QODAY PRN #30 tab 01/14/18 tamsulosin 0.4 mg capsule 0.4 mg PO QDAY #90 cap 02/18/18 amlodipine 5 mg tablet 5 mg PO DAILY #90 tab 02/26/18 Colchicine 0.6 mg PO QDAY 03/20/18 Furosemide 40 mg PO QDAY 03/20/18 Venlafaxine HCl [Venlafaxine HCl 150 mg PO QDAY 03/20/18 ER] aspirin 81 mg tablet,delayed 81 mg PO QDAY #30 tab 04/01/18 release clopidogrel 75 mg tablet 75 mg PO .COMPLEX #30 tab 04/01/18 Past Medical History (Chronic Problems): Chronic Problems (Last Reviewed 02/26/18 @ 11:43 by Tawanda Colon NP-C) Obesity (BMI 30.0-34.9) (Chronic) Ascending aorta dilatation (Chronic) SVT (supraventricular tachycardia) (Chronic) LORETTA (obstructive sleep apnea) (Chronic) Atherosclerotic heart disease of [place] coronary artery without angina pectoris (Chronic) History of left heart catheterization (Chronic) 11/09/2016 @ [facility], per Dr. Cory Harley: normal coronaries Nephrolithiasis (Chronic) HTN (hypertension) (Chronic) Anxiety (Chronic) PAF (paroxysmal atrial fibrillation) (Chronic) Multiple cardioversions, [facility] ablation (2nd). Recent ED presentation 02/24/18 w/ Atrial Fibrillation w/ RVR, successful cardioversion performed. GERD (gastroesophageal reflux disease) (Chronic) Obesity (BMI 30-39.9) (Chronic) BPPV (benign paroxysmal positional vertigo) (Chronic) HLD (hyperlipidemia) (Chronic) Thoracic aortic aneurysm without rupture (Chronic) Surgical History: - - Nephrolithiasis w/ 3 lithotripsies in the right side, back surgery, R TKR, cardiac catheterization without PCI. Psychiatric History: Anxiety - *Family History Maternal Family History: Family History (Last Reviewed 02/26/18 @ 11:43 by ERNIE Carrillo) Brother Hypertension Mother Heart disease Colon cancer Sister Diabetes Sister Diabetes Sister Diabetes History Items: - - Maternal family history of DM, Colon CA, Valvular Heart Disease. Paternal Family History: Family History (Last Reviewed 02/26/18 @ 11:43 by ERNIE Carrillo) Brother Hypertension Mother Heart disease Colon cancer Sister Diabetes Sister Diabetes Sister Diabetes History Items: - - Paternal family history of skin CA. Smoking Status: Never smoker Review of Systems - Review of Systems General: Denies: Fever, Night Sweats, Fatigue Cardiovascular: Denies: Chest Discomfort, Shortness of Breath, Orthopnea, PND, Peripheral Edema, Palpitations, Lightheadedness, Dizziness, Near Syncope, Syncope Respiratory: Denies: Cough, Sputum Production, Hemoptysis Gastrointestinal: Denies: Hematemesis, Hematochezia, Melena Genitourinary: Denies: Dysuria, Hematuria Skin: Denies: Rash Subjectve: Pleasant gentleman in no apparent distress Objective: Weight: 239 lb Body Mass Index (BMI) 33.3 Finger Stick Blood Glucose 95 General: Awake, Alert, Oriented x 3 HEENT: PERRL, EOMI, Sclera Non Icteric Neck: Supple, Good ROM, No Lymph Node Enlargement Lungs: Clear to auscultation Cardiovascular: Regular Rhythm, Normal S1, Normal S2, No Murmurs, No Rubs, No Gallops Rhythm: EKG: ECHO: Stress Test: Cardiac Cath: PCI: CT Surgery: Holter monitor: EPS: PPM: CXR: Chest CT Scan: Assessment/Plan 1. Chest pain. Patient presents with recurrent chest discomfort despite a normal coronary anatomy documented approximately a year and a half ago. He continues to present to the emergency room with the above and therefore it is felt that he should have a follow-up evaluation of his coronary anatomy. Risks benefits alternatives have been explained to him he understands and agrees to proceed. 2. Hypertension. Patient appears to have hypertension which is under good control and no changes will be made to his medications. 3. Supraventricular tachyarrhythmia. Patient has a history of paroxysmal atrial fibrillation as well as supraventricular tachyarrhythmia. He had this ablated. But he says he continues to have symptoms. He will continue to be followed up through the EP service. Thank you for allowing me to participate in the care of your patient. Please don't hesitate to call if any issues arise
--- NOTE | 2018-04-07 10:38 | CL.D_ITS ---
Patient Name: ATTILA DEL CID Study Date: 04/07/2018 Performing: Jesse Harris MD Ht: 70.86 inches 180 cm : 1970 Wt: 238.1 lbs 108 kg Age: 48 Gender: male BSA: 2.27 PROCEDURE(S) PERFORMED [id number] CLINICAL PROFILE AND INDICATIONS Indications: Other Heart Failure: None CONCLUSIONS Normal coronary arteries Normal LV size, wall motion,and systolic function RECOMMENDATIONS Medical therapy DESCRIPTION OF PROCEDURE The patient arrived to the procedure lab. The risks and benefits of the procedure as well as a full d escription of our services here and current unavailability of surgical backup were fully explained to the patient and/or their significant other prior to the catheterization. The Timeout was completed, verifying the correct patient and procedure. The patient's procedural site was prepped and draped in the usual fashion. . Using a modified Seldinger technique, arterial access was obtained via the right femoral artery, a 5Fr sheath was inserted. Left Coronary Artery selective angiography was performed in multiple views using a 5 Fr. JL 5 catheter. Right Coronary Artery selective angiography was then performed in multiple views using a 5 Fr. JR 4 catheter. Left Ventriculography was performed in CARRILLO p rojection using a 5 Fr. Pigtail catheter. LV to AO pullback pressures were then recorded.The arterial sheath was pulled and a Mynx closure device was deployed for hemostasis CORONARY ANGIOGRAPHY DOMINANCE: Right Dominant LEFT HEART ASSESSMENT Left Ventricular Ejection Fraction: by LV Gram 60 % Normal LV wall motion Normal Left Ventricular systolic function Normal Left Ventricular systolic function LEFT MAIN: Angiographically normal LEFT ANTERIOR DECENDING ARTERY: Angiographically normal CIRCUMFLEX ARTERY: Angiographically normal RIGHT CORONARY ARTERY: Angiographically normal COMPLICATIONS No Complications PROCEDURE MEDICATIONS Versed 1 mg IV Versed 1 mg IV Fentanyl 50 mcg IV Fentanyl 25 mcg IV Oxygen: 2 L/min via nasal cannula Tylenol 650 mg PO 04/07/2018 10:25:00 SUMMARY OF HEMODYNAMIC DATA Time AIR REST ECG 08:17:48 ECG 08:57:17 AO 121/89 (105) SA 09:25:49 LV 126/12, 17 09:40:24 LV 122/10, 14 09:40:47 LV 126/2, 22 09:41:40 LV 130/1, 22 09:41:47 LVp 131/0, 21 09:41:53 AOp 132/90 (108) 09:41:58 ECG 09:43:37 Signed By Jesse Harris MD On 04/07/2018 10:38:25 Jesse Harris MD
== END ==
LOC: CLSP 07:56
PROVIDERS: Family Provider Internal Medicine; PCP Internal Medicine; Visit Provider Internal Medicine Cardiovascular Disease
DX: R07.9 Chest pain, unspecified (principal); I47.1 Supraventricular tachycardia; I10 Essential (primary) hypertension; G47.33 Obstructive sleep apnea (adult) (pediatric); E66.9 Obesity, unspecified; I48.0 Paroxysmal atrial fibrillation; I25.10 Atherosclerotic heart disease of native coronary artery without angina pectoris; F41.9 Anxiety disorder, unspecified; E78.5 Hyperlipidemia, unspecified; K21.9 Gastro-esophageal reflux disease without esophagitis; Z68.33 Body mass index [BMI] 33.0-33.9, adult
CPT/HCPCS: 93458; 99152; 99153; C1760; J7040; C1769; C1894; Q9967

== ENCOUNTER 2018-04-08 19:47 | Observation (INO) | payer MEDICARE, SELFPAY ==
[2018-04-08 19:49] VITALS: BP 114/64; PULSE 214; RESP 20; TEMP 36.1; O2SAT 100; BMI 32.9
[2018-04-08 20:10] VITALS: PULSE 86
--- NOTE | 2018-04-08 20:44 | EKG12_ITS ---
Test Reason : CP Blood Pressure : / mmHG Vent. Rate : 098 BPM Atrial Rate : 098 BPM P-R Int : 170 ms QRS Dur : 076 ms QT Int : 336 ms P-R-T Axes : 016 012 014 degrees QTc Int : 428 ms Normal sinus rhythm Normal ECG Confirmed by JEANCARLOS HARRIS MD ([id number]), script editor RICCO LUZ ([id number]) on 04/10/2018 9:06:39 AM Referred By: Jeancarlos Harris Confirmed By:JEANCARLOS HARRIS MD
--- NOTE | 2018-04-08 20:45 | RAD_ITS ---
STUDY: X-RAY CHEST REASON FOR EXAM: Male, 48 years old. Dizziness. History of aneurysm in the chest TECHNIQUE: Single AP portable view of the chest. COMPARISON: 04/02/2018 FINDINGS: Grossly unchanged widening of the mediastinum. Corresponding to given history of aneurysm of the thoracic aorta. The lungs are clear and expanded. There is no demonstrated pleural abnormality. Normal size heart. Normal mediastinum and ruben. Normal visualized pulmonary arteries. Normal visualized aortic arch and descending thoracic aorta. Normal visualized thoracic spine. Normal visualized ribs, clavicles, and shoulders. There is no demonstrated abnormality of the visualized soft tissue structures of the upper abdomen. RAD/Chest 1 View (Portable) IMPRESSION: No acute cardiopulmonary disease Electronically Signed: Lazaro Hoang DO at 21:20 EDT Tel , Service support ,
[2018-04-08 21:05] LABS: Absolute Lymphocyte Count 2.84 X10^3/ul (0.83-4.51); Absolute Neutrophil Count 4.2 X10^3/uL (2.0-7.7); Basophil# 0.03 X10^3/uL; Basophil% 0.4 % (0-1); Eosinophil# 0.06 X10^3/uL; Eosinophils% 0.8 % (0-5); Hematocrit 44.6 % (40-54); Hemoglobin 14.4 g/dl (13.0-16.5); Lymphocyte # 2.84 X10^3/ul (4.0); Lymphocyte % 36.3 % (19-41); Mean Corp Hgb Conc 32.3 g/gl (32-36); Mean Corpuscular Hgb 26.8 pg (27.0-32.0); Mean Corpuscular Volume 83.1 fL (80-94); Monocyte# 0.71 X10^3/uL; Monocyte% 9.1 % (0-10); Neutrophil # 4.19 X10^3/uL (2.7-7.7); Neutrophil % 53.4 % (47-70); Platelet Count 323 K/mm3 (150-450); RBC Distribution Width CV 15.4 % (11.6-14.6); RBC Distribution Width SD 46.8 fl (35.1-43.9); Red Blood Count 5.37 M/mm3 (4.6-6.2); White Blood Count 7.8 K/mm3 (4.4-11.0)
[2018-04-08] MEDS: Ondansetron 4 MG/2 ML Vial IV (21:06)
[2018-04-08] MEDS: Aspirin 81 MG TAB.CHEW 324 MG PO (21:06)
[2018-04-08] MEDS: 0.9% Normal Saline 1,000 ML 1000 ML IV (21:06)
[2018-04-08 21:07] LABS: POSITIVE COUNT NO; POSITIVE DIFFERENTIAL NO; POSITIVE MORPHOLOGY NO
[2018-04-08 21:20] VITALS: BP 101/83; BP 103/76; BP 114/72; PULSE 105; PULSE 86; PULSE 90
[2018-04-08 21:21] VITALS: BP 103/76; PULSE 88; RESP 15; O2SAT 100
[2018-04-08 21:21] LABS: Anion Gap 5 (5-15); BUN 14 mg/dL (7-18); Calcium,Total 8.9 mg/dL (8.5-10.1); Chloride 105 mmol/L (98-107); Creatinine, Serum 0.94 mg/dL (0.70-1.30); EST Glomerular Filtration Rate 92 mL/min (>60); Est Glom Filt Rate - Afr Amer 111 mL/min (>60); Estimated Creatinine Clearance 102.36 ml/min; Glucose 100 mg/dL (74-106); Potassium 4.3 mmol/L (3.5-5.1); Sodium Level 139 mmol/L (136-145)
--- NOTE | 2018-04-08 21:35 | NURSING ---
LET THE DOCTOR KNOW THAT THE PT WAS HAVING INTERMITTENT CHEST PAIN
--- NOTE | 2018-04-08 22:41 | ED.DCSUM_ITS ---
- ER Visit Summary Date of Service: 04/08/18 Chief Complaint: Dizziness History of Present Illness: The patient is a 48 M presenting with dizziness which started around 3:30 PM. Patient had a heart catheterization yesterday with which showed normal coronary arteries. He was started on 2 new medications flecainide and Imdur. He took these medications around noon today. He states at 330pm he began feeling dizzy, nausea and had vomiting. He has chest pain and shortness of breath. Physical Examination: Vitals are stable. Patient is afebrile. Alert no acute distress. HEENT exam is unremarkable. Neck is supple. Lungs are clear and equal bilaterally. Heart is regular rate and rhythm. Abdomen is soft nontender nondistended. Extremities are unremarkable. Skin is warm and dry. No focal neurologic deficit. Remainder of exam is unremarkable. Emergency Department Course and Treatment: On arrival to the ED patient was dizzy, diaphoretic, nauseated. His heart rate was 214 in triage. When they brought him back to the ER bed his heart rate was 100. He was given IV fluids, zofran. He has chest pain which is not unusual for him. CBC, chemistries unremarkable. Troponin is negative. EKG is sinus rate of 98. Chest x-ray shows no acute process. Discussed with Dr. Hale who recommends holding his flecainide and Imdur and starting low-dose beta-carolee. He will be observed on telemetry overnight. Will discuss with the hospitalist. Disposition: Observation Impression: Tachycardia, possible medication reaction This note was generated with [employer] dictation software. It may contain incorrect words, spelling, and punctuation that were not noted in review of the chart prior to signing ED Disposition - Plan for ED Patient: Chief Complaint: Dizziness Referrals: Kristyn Bearden MD [Primary Care Provider] -
[2018-04-08 22:43] VITALS: BP 109/78; PULSE 90; RESP 21; O2SAT 98
--- NOTE | 2018-04-08 22:44 | NURSING ---
TOOK 2 ASPIRIN BEFORE COMING.
[2018-04-08 23:30] VITALS: BP 109/77; PULSE 88; RESP 17; O2SAT 99
[2018-04-09] VITALS (16 sets, daily range): BP systolic 93–117; BP diastolic 55–79; PULSE 78–94; RESP 16–25; TEMP 36.6–37.1; O2SAT 95–98; BMI 32.0; BMI 32.6
[2018-04-09] MEDS: Morphine 4 MG/ML Syringe IM (00:39)
--- NOTE | 2018-04-09 02:09 | EKG12_ITS ---
Test Reason : ADMIT Blood Pressure : / mmHG Vent. Rate : 081 BPM Atrial Rate : 081 BPM P-R Int : 174 ms QRS Dur : 086 ms QT Int : 390 ms P-R-T Axes : 008 018 025 degrees QTc Int : 453 ms Normal sinus rhythm Normal ECG When compared with ECG of 02-APR-2018 12:31, ST no longer depressed in Lateral leads Confirmed by NABILA CONNOR, JEANCARLOS ([id number]), publication editor RICCO LUZ ([id number]) on 04/10/2018 9:50:28 AM Referred By: Jeancarlos Harris Confirmed By:JEANCARLOS HARRIS MD
--- NOTE | 2018-04-09 03:33 | PCM.HP.STD ---
Problem List (1) Atypical chest pain Status: Acute (2) Obesity (BMI 30.0-34.9) Status: Chronic (3) Chest pain Status: Acute Qualifiers: (4) Ascending aorta dilatation Status: Chronic (5) SVT (supraventricular tachycardia) Status: Chronic (6) LORETTA (obstructive sleep apnea) Status: Chronic (7) Atherosclerotic heart disease of [place] coronary artery without angina pectoris Status: Chronic Qualifiers: (8) History of left heart catheterization Status: Chronic Comment: 11/09/2016 @ [facility], per Dr. Cory Harley: normal coronaries 04/07/2018 @ [facility] per Dr. Stokes: normal coronaries (9) History of cardiac radiofrequency ablation Status: Resolved Comment: 10/09/[address] [facility] [address] Andrew (10) Nephrolithiasis Status: Chronic (11) HTN (hypertension) Status: Chronic Qualifiers: (12) Anxiety Status: Chronic (13) PAF (paroxysmal atrial fibrillation) Status: Chronic Comment: Multiple cardioversions, [facility] ablation (2nd). Recent ED presentation 02/24/18 w/ Atrial Fibrillation w/ RVR, successful cardioversion performed. (14) GERD (gastroesophageal reflux disease) Status: Chronic Qualifiers: (15) Obesity (BMI 30-39.9) Status: Chronic (16) BPPV (benign paroxysmal positional vertigo) Status: Chronic Qualifiers: (17) HLD (hyperlipidemia) Status: Chronic Qualifiers: (18) Thoracic aortic aneurysm without rupture Status: Chronic History of Present Illness Date of Admission: 04/09/18 Chief Complaint: Chest pain or near syncope symptoms yesterday afternoon The patient is a 48 year old M with multiple comorbidities as mentioned above including paroxysmal A. fib status post cardioversion twice in February 2018 on Eliquis, had cardiac cath on Saturday by Dr. stokes, found to be normal coronary arteries with normal LV size, wall motion and systolic function and was discharged on flecainide and Imdur. Patient started having chest pain yesterday afternoon along with dizziness, and felt like near fall. Patient has chronic chest pain complain of localized midsternal squeezing chest pain but no associated shortness of breath, diaphoresis. In the ED, his heart rate was 214/min but later on improved to 82/min this spontaneously. No significant change in blood pressure or tachypnea or hypoxia. Patient was told to resume Eliquis from today. ER physician Dr. Stein talk to Dr Hale and advised observation and hold flecainide and Imdur. EKG shows normal sinus rhythm at 98 bpm. QTc 453 ms. Normal axis. Troponin negative. Chest x-ray no acute cardiopulmonary disease. Past Medical History Past Medical History (Chronic Problems): Chronic Problems (Last Reviewed 02/26/18 @ 11:43 by ERNIE Carrillo) Obesity (BMI 30.0-34.9) (Chronic) Ascending aorta dilatation (Chronic) SVT (supraventricular tachycardia) (Chronic) LORETTA (obstructive sleep apnea) (Chronic) Atherosclerotic heart disease of [place] coronary artery without angina pectoris (Chronic) History of left heart catheterization (Chronic) 11/09/2016 @ [facility], per Dr. Cory Harley: normal coronaries 04/07/2018 @ [facility] per Dr. Stokes: normal coronaries Nephrolithiasis (Chronic) HTN (hypertension) (Chronic) Anxiety (Chronic) PAF (paroxysmal atrial fibrillation) (Chronic) Multiple cardioversions, [facility] ablation (2nd). Recent ED presentation 02/24/18 w/ Atrial Fibrillation w/ RVR, successful cardioversion performed. GERD (gastroesophageal reflux disease) (Chronic) Obesity (BMI 30-39.9) (Chronic) BPPV (benign paroxysmal positional vertigo) (Chronic) HLD (hyperlipidemia) (Chronic) Thoracic aortic aneurysm without rupture (Chronic) Medical History: Medical History (Last Reviewed 02/26/18 @ 11:43 by ERNIE Carrillo) Ascending aorta dilatation (Chronic) I77.810 SVT (supraventricular tachycardia) (Chronic) I47.1 LORETTA (obstructive sleep apnea) (Chronic) G47.33 Atherosclerotic heart disease of [place] coronary artery without angina pectoris (Chronic) I25.10 Nephrolithiasis (Chronic) N20.0 HTN (hypertension) (Chronic) I10 Anxiety (Chronic) F41.9 PAF (paroxysmal atrial fibrillation) (Chronic) I48.0 Multiple cardioversions, [facility] ablation (2nd). Recent ED presentation 02/24/18 w/ Atrial Fibrillation w/ RVR, successful cardioversion performed. GERD (gastroesophageal reflux disease) (Chronic) K21.9 Obesity (BMI 30-39.9) (Chronic) E66.9 BPPV (benign paroxysmal positional vertigo) (Chronic) H81.10 HLD (hyperlipidemia) (Chronic) E78.5 Thoracic aortic aneurysm without rupture (Chronic) I71.2 Allergies clonidine Allergy (Intermediate, Verified 04/02/18 12:11) rash levofloxacin [From Levaquin] Allergy (Verified 04/02/18 12:11) Rash Penicillins Allergy (Verified 04/02/18 12:11) Hives bupropion Adverse Reaction (Intermediate, Verified 04/02/18 12:11) vomiting celecoxib [From Celebrex] Adverse Reaction (Intermediate, Verified 04/02/18 12:11) vomiting eletriptan Adverse Reaction (Intermediate, Verified 04/02/18 12:11) Vomiting topiramate [From Topamax] Adverse Reaction (Intermediate, Verified 04/02/18 12:11) vomiting hydrocodone bitartrate [From Vicodin] Adverse Reaction (Verified 04/02/18 12:11) Nausea Home Medications: Ambulatory Orders Medication Instructions Recorded Pantoprazole Sodium [Protonix] 40 mg PO DAILY 04/22/16 Carvedilol [Coreg] 25 mg PO BID 01/31/17 Albuterol Inhaler [Ventolin Hfa] 1 - 2 puff INHALATION Q4H PRN PRN 07/15/17 #1 inhaler Apixaban [Eliquis] 5 mg PO BID 09/21/17 gabapentin 100 mg capsule 100 mg PO QHS #30 cap 01/14/18 meclizine 12.5 mg tablet 12.5 mg PO QODAY PRN #30 tab 01/14/18 amlodipine 5 mg tablet 5 mg PO DAILY #90 tab 02/26/18 Furosemide 40 mg PO QDAY 03/20/18 Venlafaxine HCl [Venlafaxine HCl 150 mg PO QDAY 03/20/18 ER] Aspirin [Aspir-Low] 81 mg PO QDAY 04/09/18 Atorvastatin Calcium [Lipitor] 20 mg PO QDAY 04/09/18 Lisinopril [Zestril] 40 mg PO QDAY 04/09/18 Tamsulosin HCl [Flomax] 0.4 mg PO QDAY 04/09/18 Surgical History: Surgical History (Last Updated 04/07/18 @ 17:03 by Pilar Martinez) History of left heart catheterization (Chronic) Z98.890 11/09/2016 @ [facility], per Dr. Cory Harley: normal coronaries 04/07/2018 @ [facility] per Dr. Stokes: normal coronaries History of cardiac radiofrequency ablation (Resolved) Z98.890 10/09/[address] [facility] [address] Andrew H/O arthroscopic knee surgery Z98.890 History of back surgery Z98.890 History of right knee surgery Z98.890 Surgical History: - - Nephrolithiasis w/ 3 lithotripsies in the right side, back surgery, R TKR, cardiac catheterization without PCI. Psychiatric History: Anxiety Smoking Status: Never smoker - *Family History Maternal Family History: Family History (Last Reviewed 02/26/18 @ 11:43 by ERNIE Carrillo) Brother Hypertension Mother Heart disease Colon cancer Sister Diabetes Sister Diabetes Sister Diabetes History Items: - - Maternal family history of DM, Colon CA, Valvular Heart Disease. Paternal Family History: Family History (Last Reviewed 02/26/18 @ 11:43 by ERNIE Carrillo) Brother Hypertension Mother Heart disease Colon cancer Sister Diabetes Sister Diabetes Sister Diabetes History Items: - - Paternal family history of skin CA. Review of Systems Constitutional: Denies: Chills, Fever, Weight Change HEENT: Reports: Difficulty Hearing - Perhaps has congenital hearing loss and uses hearing aid. Denies: Head Aches, Sinus Congestion, Sinus Drainage Cardiovascular: Reports: Chest Pain, Light Headedness. Denies: Palpitations Respiratory: Denies: Cough, Shortness of breath at rest, Sputum production Gastrointestinal: Denies: Abdominal Pain, Nausea, Vomiting Genitourinary: Denies: Dysuria Musculoskeletal: Denies: Joint Pain, Joint Tenderness Skin: Denies: Rash, Wounds Neurological: Denies: Numbness, Tingling, Focal weakness Psychiatric: Denies: Anxiety, Depression, Homicidal Ideations, Suicidal Ideations Hematologic/ Lymphatic: Denies: Easy Bruising, Easy Bleeding VTE Information - Inpt Only VTE Present on Admission: No VTE Mechan Device Prophylaxis: None Reason prophylaxis not ordered:: Procedure Not Indicated - On Eliquis Patient Problems: Active and Suspected Problems (Last Reviewed 02/26/18 @ 11:43 by ERNIE Carrillo) Atypical chest pain (Acute) - Physical Exam General: Alert, Oriented x3, Cooperative HEENT: Atraumatic, PERRLA, EOMI, Normocephalic Neck: Supple, No JVD, Negative Carotid Bruits Lungs: Clear to auscultation, Normal air movement Cardiovascular: Regular rate, Regular Rhythm, Normal S1, Normal S2, No murmurs Abdomen: Bowel Sounds Present, Soft, Non Tender, Non-Distended Extremities: No edema, Capillary Refill Less than 3 Seconds Skin: No rashes, No breakdown Musculoskeletal: No Tenderness to Palpation of Joints or Extremities, Arthritic Changes - Status post right TKR Neurological: Cranial nerves II-XII grossly intact, Neuro grossly intact Psych/Mental Status: Normal Affect, Appropriate Vital Signs Temp Pulse Resp BP Pulse Ox 97.9 F 78 18 103/66 98 04/09/18 01:00 04/09/18 02:10 04/09/18 01:35 04/09/18 01:00 04/09/18 02:39 Oxygen Flow Rate (L/min) 2 Oxygen Delivery Method Nasal Cannula Weight: 234 lb 2.095 oz Body Mass Index (BMI) 32.6 Assessment/Plan All Active Problems (Last Reviewed 02/26/18 @ 11:43 by Tawanda Colon NP-C) Atypical chest pain (Acute) Chest pain (Acute) History of cardiac radiofrequency ablation (Resolved) Double vision (Resolved) The patient is a 48 year old M with multiple comorbidities as mentioned above including paroxysmal A. fib status post cardioversion twice in February 2018 on Eliquis, had cardiac cath on Saturday by Dr. stokes, found to be normal coronary arteries with normal LV size, wall motion and systolic function and was discharged on flecainide and Imdur. Patient started having chest pain yesterday afternoon along with dizziness, and felt like near fall. Patient has chronic chest pain complain of localized midsternal squeezing chest pain but no associated shortness of breath, diaphoresis. In the ED, his heart rate was 214/min but later on improved to 82/min this spontaneously. No significant change in blood pressure or tachypnea or hypoxia. Patient was told to resume Eliquis from today. ER physician Dr. Stein talk to Dr Hale and advised observation and hold flecainide and Imdur. EKG shows normal sinus rhythm at 98 bpm. QTc 453 ms. Normal axis. Troponin negative. Chest x-ray no acute cardiopulmonary disease. 1. Atypical chest pain, localized most probably musculoskeletal chest pain: As mentioned above patient had cardiac cath on this past Saturday and normal coronaries were performed. No cardiac enzyme testing. Continue home cardiac medications 2. Sinus tachycardia: There is no explanation for his tachycardia, 214/min found in ER. Currently normal sinus rhythm. Orthostatic hold vital signs ordered. Hold flecainide and Imdur. Dr. Hale advised Dr. stokes consult. 3. Paroxysmal A. fib/ supraventricular tachycardia status post recent cardioversion: Continue home medication including carvedilol, baby aspirin, atorvastatin. Resume apixaban today 4. Multiple chronic comorbidities including atherosclerotic coronary artery disease and had multiple cardiac cath but no significant coronary stenosis found. Chronic ascending aortic dilatation, anxiety, obesity, GERD, dyslipidemia, chronic vertigo/BPPV: Home medication reconciliation done. DVT prophylaxis: Patient on Eliquis 5 mg twice daily This note was generated with [employer] dictation software. Every effort was made to ensure accuracy, however computerized grove worker mistakes may persist. Code Visit OBSV E&M: 18308 Initial observation care L3
--- NOTE | 2018-04-09 03:44 | HP.PCM_ITS ---
Problem List (1) Atypical chest pain Status: Acute (2) Obesity (BMI 30.0-34.9) Status: Chronic (3) Chest pain Status: Acute Qualifiers: (4) Ascending aorta dilatation Status: Chronic (5) SVT (supraventricular tachycardia) Status: Chronic (6) LORETTA (obstructive sleep apnea) Status: Chronic (7) Atherosclerotic heart disease of [place] coronary artery without angina pectoris Status: Chronic Qualifiers: (8) History of left heart catheterization Status: Chronic Comment: 11/09/2016 @ [facility] , per Dr. Cory Harley: normal coronaries 04/07/2018 @ [facility] per Dr. Stokes: normal coronaries (9) History of cardiac radiofrequency ablation Status: Resolved Comment: 10/09/[address] [facility] [address] Andrew (10) Nephrolithiasis Status: Chronic (11) HTN (hypertension) Status: Chronic Qualifiers: (12) Anxiety Status: Chronic (13) PAF (paroxysmal atrial fibrillation) Status: Chronic Comment: Multiple cardioversions, [facility] ablation (2nd). Recent ED presentation 02/24/18 w/ Atrial Fibrillation w/ RVR, successful cardioversion performed. (14) GERD (gastroesophageal reflux disease) Status: Chronic Qualifiers: (15) Obesity (BMI 30-39.9) Status: Chronic (16) BPPV (benign paroxysmal positional vertigo) Status: Chronic Qualifiers: (17) HLD (hyperlipidemia) Status: Chronic Qualifiers: (18) Thoracic aortic aneurysm without rupture Status: Chronic History of Present Illness Date of Admission: 04/09/18 Chief Complaint: Chest pain or near syncope symptoms yesterday afternoon The patient is a 48 year old M with multiple comorbidities as mentioned above including paroxysmal A. fib status post cardioversion twice in February 2018 on Eliquis, had cardiac cath on Saturday by Dr. stokes, found to be normal coronary arteries with normal LV size, wall motion and systolic function and was discharged on flecainide and Imdur. Patient started having chest pain yesterday afternoon along with dizziness, and felt like near fall. Patient has chronic chest pain complain of localized midsternal squeezing chest pain but no associated shortness of breath, diaphoresis. In the ED, his heart rate was 214/min but later on improved to 82/min this spontaneously. No significant change in blood pressure or tachypnea or hypoxia. Patient was told to resume Eliquis from today. ER physician Dr. Stein talk to Dr Hale and advised observation and hold flecainide and Imdur. EKG shows normal sinus rhythm at 98 bpm. QTc 453 ms. Normal axis. Troponin negative. Chest x-ray no acute cardiopulmonary disease. Past Medical History Past Medical History (Chronic Problems): Chronic Problems (Last Reviewed 02/26/18 @ 11:43 by ERNIE Carrillo) Obesity (BMI 30.0-34.9) (Chronic) Ascending aorta dilatation (Chronic) SVT (supraventricular tachycardia) (Chronic) LORETTA (obstructive sleep apnea) (Chronic) Atherosclerotic heart disease of [place] coronary artery without angina pectoris (Chronic) History of left heart catheterization (Chronic) 11/09/2016 @ [facility], per Dr. Cory Harley: normal coronaries 04/07/2018 @ [facility] per Dr. Stokes: normal coronaries Nephrolithiasis (Chronic) HTN (hypertension) (Chronic) Anxiety (Chronic) PAF (paroxysmal atrial fibrillation) (Chronic) Multiple cardioversions, [facility] ablation (2nd). Recent ED presentation 02/24/18 w/ Atrial Fibrillation w/ RVR, successful cardioversion performed. GERD (gastroesophageal reflux disease) (Chronic) Obesity (BMI 30-39.9) (Chronic) BPPV (benign paroxysmal positional vertigo) (Chronic) HLD (hyperlipidemia) (Chronic) Thoracic aortic aneurysm without rupture (Chronic) Medical History: Medical History (Last Reviewed 02/26/18 @ 11:43 by ERNIE Carrillo) Ascending aorta dilatation (Chronic) I77.810 SVT (supraventricular tachycardia) (Chronic) I47.1 LORETTA (obstructive sleep apnea) (Chronic) G47.33 Atherosclerotic heart disease of [place] coronary artery without angina pectoris (Chronic) I25.10 Nephrolithiasis (Chronic) N20.0 HTN (hypertension) (Chronic) I10 Anxiety (Chronic) F41.9 PAF (paroxysmal atrial fibrillation) (Chronic) I48.0 Multiple cardioversions, [facility] ablation (2nd). Recent ED presentation 02/24/18 w/ Atrial Fibrillation w/ RVR, successful cardioversion performed. GERD (gastroesophageal reflux disease) (Chronic) K21.9 Obesity (BMI 30-39.9) (Chronic) E66.9 BPPV (benign paroxysmal positional vertigo) (Chronic) H81.10 HLD (hyperlipidemia) (Chronic) E78.5 Thoracic aortic aneurysm without rupture (Chronic) I71.2 Allergies clonidine Allergy (Intermediate, Verified 04/02/18 12:11) rash levofloxacin [From Levaquin] Allergy (Verified 04/02/18 12:11) Rash Penicillins Allergy (Verified 04/02/18 12:11) Hives bupropion Adverse Reaction (Intermediate, Verified 04/02/18 12:11) vomiting celecoxib [From Celebrex] Adverse Reaction (Intermediate, Verified 04/02/18 12: 11) vomiting eletriptan Adverse Reaction (Intermediate, Verified 04/02/18 12:11) Vomiting topiramate [From Topamax] Adverse Reaction (Intermediate, Verified 04/02/18 12: 11) vomiting hydrocodone bitartrate [From Vicodin] Adverse Reaction (Verified 04/02/18 12:11) Nausea Home Medications: Ambulatory Orders Medication Instructions Recorded Pantoprazole Sodium [Protonix] 40 mg PO DAILY 04/22/16 Carvedilol [Coreg] 25 mg PO BID 01/31/17 Albuterol Inhaler [Ventolin Hfa] 1 - 2 puff INHALATION Q4H PRN PRN 07/15/17 #1 inhaler Apixaban [Eliquis] 5 mg PO BID 09/21/17 gabapentin 100 mg capsule 100 mg PO QHS #30 cap 01/14/18 meclizine 12.5 mg tablet 12.5 mg PO QODAY PRN #30 tab 01/14/18 amlodipine 5 mg tablet 5 mg PO DAILY #90 tab 02/26/18 Furosemide 40 mg PO QDAY 03/20/18 Venlafaxine HCl [Venlafaxine HCl 150 mg PO QDAY 03/20/18 ER] Aspirin [Aspir-Low] 81 mg PO QDAY 04/09/18 Atorvastatin Calcium [Lipitor] 20 mg PO QDAY 04/09/18 Lisinopril [Zestril] 40 mg PO QDAY 04/09/18 Tamsulosin HCl [Flomax] 0.4 mg PO QDAY 04/09/18 Surgical History: Surgical History (Last Updated 04/07/18 @ 17:03 by Pilar Martinez) History of left heart catheterization (Chronic) Z98.890 11/09/2016 @ [facility], per Dr. Cory Harley: normal coronaries 04/07/2018 @ [facility] per Dr. Stokes: normal coronaries History of cardiac radiofrequency ablation (Resolved) Z98.890 10/09/[address] [facility] [address] Andrew H/O arthroscopic knee surgery Z98.890 History of back surgery Z98.890 History of right knee surgery Z98.890 Surgical History: - - Nephrolithiasis w/ 3 lithotripsies in the right side, back surgery, R TKR, cardiac catheterization without PCI. Psychiatric History: Anxiety Smoking Status: Never smoker - *Family History Maternal Family History: Family History (Last Reviewed 02/26/18 @ 11:43 by ERNIE Carrillo) Brother Hypertension Mother Heart disease Colon cancer Sister Diabetes Sister Diabetes Sister Diabetes History Items: - - Maternal family history of DM, Colon CA, Valvular Heart Disease. Paternal Family History: Family History (Last Reviewed 02/26/18 @ 11:43 by ERNIE Carrillo) Brother Hypertension Mother Heart disease Colon cancer Sister Diabetes Sister Diabetes Sister Diabetes History Items: - - Paternal family history of skin CA. Review of Systems Constitutional: Denies: Chills, Fever, Weight Change HEENT: Reports: Difficulty Hearing - Perhaps has congenital hearing loss and uses hearing aid. Denies: Head Aches, Sinus Congestion, Sinus Drainage Cardiovascular: Reports: Chest Pain, Light Headedness. Denies: Palpitations Respiratory: Denies: Cough, Shortness of breath at rest, Sputum production Gastrointestinal: Denies: Abdominal Pain, Nausea, Vomiting Genitourinary: Denies: Dysuria Musculoskeletal: Denies: Joint Pain, Joint Tenderness Skin: Denies: Rash, Wounds Neurological: Denies: Numbness, Tingling, Focal weakness Psychiatric: Denies: Anxiety, Depression, Homicidal Ideations, Suicidal Ideations Hematologic/ Lymphatic: Denies: Easy Bruising, Easy Bleeding VTE Information - Inpt Only VTE Present on Admission: No VTE Mechan Device Prophylaxis: None Reason prophylaxis not ordered:: Procedure Not Indicated - On Eliquis Patient Problems: Active and Suspected Problems (Last Reviewed 02/26/18 @ 11:43 by LUNA Carrillo) Atypical chest pain (Acute) - Physical Exam General: Alert, Oriented x3, Cooperative HEENT: Atraumatic, PERRLA, EOMI, Normocephalic Neck: Supple, No JVD, Negative Carotid Bruits Lungs: Clear to auscultation, Normal air movement Cardiovascular: Regular rate, Regular Rhythm, Normal S1, Normal S2, No murmurs Abdomen: Bowel Sounds Present, Soft, Non Tender, Non-Distended Extremities: No edema, Capillary Refill Less than 3 Seconds Skin: No rashes, No breakdown Musculoskeletal: No Tenderness to Palpation of Joints or Extremities, Arthritic Changes - Status post right TKR Neurological: Cranial nerves II-XII grossly intact, Neuro grossly intact Psych/Mental Status: Normal Affect, Appropriate Vital Signs Temp Pulse Resp BP Pulse Ox 97.9 F 78 18 103/66 98 04/09/18 01:00 04/09/18 02:10 04/09/18 01:35 04/09/18 01:00 04/09/18 02:39 Oxygen Flow Rate (L/min) 2 Oxygen Delivery Method Nasal Cannula Weight: 234 lb 2.095 oz Body Mass Index (BMI) 32.6 Assessment/Plan All Active Problems (Last Reviewed 02/26/18 @ 11:43 by Tawanda Colon NP-C) Atypical chest pain (Acute) Chest pain (Acute) History of cardiac radiofrequency ablation (Resolved) Double vision (Resolved) The patient is a 48 year old M with multiple comorbidities as mentioned above including paroxysmal A. fib status post cardioversion twice in February 2018 on Eliquis, had cardiac cath on Saturday by Dr. stokes, found to be normal coronary arteries with normal LV size, wall motion and systolic function and was discharged on flecainide and Imdur. Patient started having chest pain yesterday afternoon along with dizziness, and felt like near fall. Patient has chronic chest pain complain of localized midsternal squeezing chest pain but no associated shortness of breath, diaphoresis. In the ED, his heart rate was 214/min but later on improved to 82/min this spontaneously. No significant change in blood pressure or tachypnea or hypoxia. Patient was told to resume Eliquis from today. ER physician Dr. Stein talk to Dr Hale and advised observation and hold flecainide and Imdur. EKG shows normal sinus rhythm at 98 bpm. QTc 453 ms. Normal axis. Troponin negative. Chest x-ray no acute cardiopulmonary disease. 1. Atypical chest pain, localized most probably musculoskeletal chest pain: As mentioned above patient had cardiac cath on this past Saturday and normal coronaries were performed. No cardiac enzyme testing. Continue home cardiac medications 2. Sinus tachycardia: There is no explanation for his tachycardia, 214/min found in ER. Currently normal sinus rhythm. Orthostatic hold vital signs ordered. Hold flecainide and Imdur. Dr. Hale advised Dr. stokes consult. 3. Paroxysmal A. fib/ supraventricular tachycardia status post recent cardioversion: Continue home medication including carvedilol, baby aspirin, atorvastatin. Resume apixaban today 4. Multiple chronic comorbidities including atherosclerotic coronary artery disease and had multiple cardiac cath but no significant coronary stenosis found. Chronic ascending aortic dilatation, anxiety, obesity, GERD, dyslipidemia, chronic vertigo/BPPV: Home medication reconciliation done. DVT prophylaxis: Patient on Eliquis 5 mg twice daily This note was generated with [employer] dictation software. Every effort was made to ensure accuracy, however computerized storage receipt poster mistakes may persist. Code Visit OBSV E&M: 64262 Initial observation care L3
[2018-04-09] MEDS: Morphine 2 MG/ML Syringe IV ×2 (05:18→09:38)
[2018-04-09] MEDS: Venlafaxine XR 150 MG Capsule PO (09:39)
[2018-04-09] MEDS: Carvedilol 25 MG Tablet PO (09:39)
[2018-04-09] MEDS: Aspirin E.C. 81 MG Tablet PO (09:39)
[2018-04-09] MEDS: amLODIPine 5 MG Tablet PO (09:40)
[2018-04-09] MEDS: Furosemide 40 MG Tablet PO (09:40)
[2018-04-09] MEDS: Tamsulosin HCl 0.4 MG Capsule PO (09:40)
[2018-04-09] MEDS: Pantoprazole Sodium 40 MG Tablet PO (09:40)
[2018-04-09] MEDS: APIXABAN 5 MG TABLET PO (09:40)
[2018-04-09] MEDS: Lisinopril 20 MG Tablet PO (09:40)
--- NOTE | 2018-04-09 15:14 | PCM.DC ---
- Discharge Diagnoses Current Active Problems: Current Active and Chronic Problems (Last Reviewed 02/26/18 @ 11:43 by ERNIE Carrillo) Atypical chest pain (Acute) You will use the following diet at home:: Cardiac Your food should be the consistency of: Regular Your liquids should be the consistency of: Regular/Thin Discharge Activity: Return to Normal Activity Call your doctor if you observe: Fever of 101 or Higher, Fainting spells Instructions: Your Body's Response to Anxiety, Understanding Panic Disorder (Panic Attack), Treating Anxiety Disorders with Therapy Additional Instructions: 1. The Imdur has been discontinued. The dose of the Lisinopril has been reduced. This should take care of the problem with the low blood pressure. 2. You heart rate sometimes increases but it is regular. This is often associated with anxiety. Anxiety can lead to panic attacks. When you have a panic attack your chest gets tight, you feel short of breath(like the breath will not go the whole way down), sometimes your lips will get numb, your heart races and you feel as though you may . You have a lot of medical problems for someone so young and I can understand your anxiety but, this does not make for very good quality of life an it is treatable. You are on Effexor which is a good antidepressant but, some people get more anxious with Effexor. I think the best way to treat anxiety is with medication in conjunction with therapy. We have a behavioral health program at [facility] and they can help you to better control your anxiety. Allergies/Adverse Reactions: Allergies clonidine Allergy (Intermediate, Verified 04/02/18 12:11) rash levofloxacin [From Levaquin] Allergy (Verified 04/02/18 12:11) Rash Penicillins Allergy (Verified 04/02/18 12:11) Hives bupropion Adverse Reaction (Intermediate, Verified 04/02/18 12:11) vomiting celecoxib [From Celebrex] Adverse Reaction (Intermediate, Verified 04/02/18 12:11) vomiting eletriptan Adverse Reaction (Intermediate, Verified 04/02/18 12:11) Vomiting topiramate [From Topamax] Adverse Reaction (Intermediate, Verified 04/02/18 12:11) vomiting hydrocodone bitartrate [From Vicodin] Adverse Reaction (Verified 04/02/18 12:11) Nausea Medications to take at Discharge Pantoprazole Sodium [Protonix] 40 mg PO DAILY 04/22/16 Carvedilol [Coreg] 25 mg PO BID 01/31/17 Albuterol Inhaler [Ventolin Hfa] 1 - 2 puff INHALATION Q4H PRN PRN #1 inhaler 07/15/17 Apixaban [Eliquis] 5 mg PO BID 09/21/17 gabapentin 100 mg capsule 100 mg PO QHS #30 cap 01/14/18 meclizine 12.5 mg tablet 12.5 mg PO QODAY PRN #30 tab 01/14/18 amlodipine 5 mg tablet 5 mg PO DAILY #90 tab 02/26/18 Furosemide 40 mg PO QDAY 03/20/18 Aspirin [Aspir-Low] 81 mg PO QDAY 04/09/18 Atorvastatin Calcium [Lipitor] 20 mg PO QDAY 04/09/18 Lisinopril [Zestril] 10 mg PO BID #60 tab 04/09/18 Tamsulosin HCl [Flomax] 0.4 mg PO QDAY 04/09/18 Venlafaxine HCl [Effexor Xr] 75 mg PO DAILY #7 cap.er.24h 04/09/18 The following prescriptions were given: Venlafaxine HCl [Effexor Xr] 75 mg PO DAILY #7 cap.er.24h Lisinopril [Zestril] 10 mg PO BID #60 tab Orders to be completed after discharge: 30-Day Event Recorder [[facility]] Location: None Selected Primary Care Physician: Kristyn Bearden MD [Primary Care Provider] - Please follow up with your Primary Care Physician in: 2 weeks with Tawanda Colon Please Follow Up With: Jesse Harris MD When: 5-6 weeks Proposed Discharge Date: 04/09/18
--- NOTE | 2018-04-09 15:24 | DCINST_ITS ---
- Discharge Diagnoses Current Active Problems: Current Active and Chronic Problems (Last Reviewed 02/26/18 @ 11:43 by ERNIE Carrillo) Atypical chest pain (Acute) You will use the following diet at home:: Cardiac Your food should be the consistency of: Regular Your liquids should be the consistency of: Regular/Thin Discharge Activity: Return to Normal Activity Call your doctor if you observe: Fever of 101 or Higher, Fainting spells Instructions: Your Body's Response to Anxiety, Understanding Panic Disorder ( Panic Attack), Treating Anxiety Disorders with Therapy Additional Instructions: 1. The Imdur has been discontinued. The dose of the Lisinopril has been reduced. This should take care of the problem with the low blood pressure. 2. You heart rate sometimes increases but it is regular. This is often associated with anxiety. Anxiety can lead to panic attacks. When you have a panic attack your chest gets tight, you feel short of breath( like the breath will not go the whole way down), sometimes your lips will get numb, your heart races and you feel as though you may . You have a lot of medical problems for someone so young and I can understand your anxiety but, this does not make for very good quality of life an it is treatable. You are on Effexor which is a good antidepressant but, some people get more anxious with Effexor. I think the best way to treat anxiety is with medication in conjunction with therapy. We have a behavioral health program at [facility] and they can help you to better control your anxiety. Allergies/Adverse Reactions: Allergies clonidine Allergy (Intermediate, Verified 04/02/18 12:11) rash levofloxacin [From Levaquin] Allergy (Verified 04/02/18 12:11) Rash Penicillins Allergy (Verified 04/02/18 12:11) Hives bupropion Adverse Reaction (Intermediate, Verified 04/02/18 12:11) vomiting celecoxib [From Celebrex] Adverse Reaction (Intermediate, Verified 04/02/18 12: 11) vomiting eletriptan Adverse Reaction (Intermediate, Verified 04/02/18 12:11) Vomiting topiramate [From Topamax] Adverse Reaction (Intermediate, Verified 04/02/18 12: 11) vomiting hydrocodone bitartrate [From Vicodin] Adverse Reaction (Verified 04/02/18 12:11) Nausea Medications to take at Discharge Pantoprazole Sodium [Protonix] 40 mg PO DAILY 04/22/16 Carvedilol [Coreg] 25 mg PO BID 01/31/17 Albuterol Inhaler [Ventolin Hfa] 1 - 2 puff INHALATION Q4H PRN PRN #1 inhaler Apixaban [Eliquis] 5 mg PO BID 09/21/17 gabapentin 100 mg capsule 100 mg PO QHS #30 cap 01/14/18 meclizine 12.5 mg tablet 12.5 mg PO QODAY PRN #30 tab 01/14/18 amlodipine 5 mg tablet 5 mg PO DAILY #90 tab 02/26/18 Furosemide 40 mg PO QDAY 03/20/18 Aspirin [Aspir-Low] 81 mg PO QDAY 04/09/18 Atorvastatin Calcium [Lipitor] 20 mg PO QDAY 04/09/18 Lisinopril [Zestril] 10 mg PO BID #60 tab 04/09/18 Tamsulosin HCl [Flomax] 0.4 mg PO QDAY 04/09/18 Venlafaxine HCl [Effexor Xr] 75 mg PO DAILY #7 cap.er.24h 04/09/18 The following prescriptions were given: Venlafaxine HCl [Effexor Xr] 75 mg PO DAILY #7 cap.er.24h Lisinopril [Zestril] 10 mg PO BID #60 tab Orders to be completed after discharge: 30-Day Event Recorder [[facility]] Location: None Selected Primary Care Physician: Kristyn Bearden MD [Primary Care Provider] - Please follow up with your Primary Care Physician in: 2 weeks with Tawanda Colon Please Follow Up With: Jesse Harris MD When: 5-6 weeks Proposed Discharge Date: 04/09/18
--- NOTE | 2018-04-09 15:35 | CASEMGMT ---
Physician asked SW to have Behavioral Health come and talk with patient about their program due to patient's anxiety. SW called Zachery and he said he would be over to talk with patient. SW notified physician. Nohelia MORATAYA
--- NOTE | 2018-04-09 15:43 | PCM.DC.SUM ---
Discharge Date and Diagnosis - Problem List Patient Problems: Active and Suspected Problems (Last Reviewed 02/26/18 @ 11:43 by ERNIE Carrillo) Non-cardiac chest pain (Acute) Date of Admission: 04/09/18 Date of Discharge: 04/09/18 - Primary Discharge Diagnosis Active and Suspected Problems (Last Reviewed 02/26/18 @ 11:43 by ERNIE Carrillo) Non-cardiac chest pain (Acute) - suspect due to panic attack - Secondary Discharge Diagnosis Chronic Problems (Last Reviewed 02/26/18 @ 11:43 by ERNIE Carrillo) Ascending aorta dilatation (Chronic) SVT (supraventricular tachycardia) (Chronic) LORETTA (obstructive sleep apnea) (Chronic) Atherosclerotic heart disease of [place] coronary artery without angina pectoris (Chronic) History of left heart catheterization (Chronic) 11/09/2016 @ [facility], per Dr. Cory Harley: normal coronaries 04/07/2018 @ [facility] per Dr. Harris: normal coronaries Nephrolithiasis (Chronic) HTN (hypertension) (Chronic) Anxiety (Chronic) - not adequately controlled PAF (paroxysmal atrial fibrillation) (Chronic) Multiple cardioversions, [facility] ablation (2nd). Recent ED presentation 02/24/18 w/ Atrial Fibrillation w/ RVR, successful cardioversion performed. GERD (gastroesophageal reflux disease) (Chronic) Obesity (BMI 30-39.9) (Chronic) BPPV (benign paroxysmal positional vertigo) (Chronic) HLD (hyperlipidemia) (Chronic) Thoracic aortic aneurysm without rupture (Chronic) Hospital Course and Treatment Imaging Results: Clinical Impression(s) from Imaging Studies Chest X-Ray 04/08/18 20:45 IMPRESSION: No acute cardiopulmonary disease Electronically Signed: Lazaro Hoang DO at 21:20 EDT Tel , Service support , Laboratory Tests 04/08/18 04/08/18 19:55 19:55 WBC 7.8 RBC 5.37 Hgb 14.4 Hct 44.6 MCV 83.1 MCH 26.8 L MCHC 32.3 RDW 15.4 H RDW Differential 46.8 H Plt Count 323 MPV 9.0 Immature Gran % (Auto) 0.000 Neut % (Auto) 53.4 Lymph % (Auto) 36.3 [place] % (Auto) 9.1 Eos % (Auto) 0.8 Baso % (Auto) 0.4 Absolute Neuts (auto) 4.2 Absolute Lymphs (auto) 2.84 Total Counted Not Reportable Sodium 139 Potassium 4.3 Chloride 105 Carbon Dioxide 29.0 Anion Gap 5 BUN 14 Creatinine 0.94 Estim Creat Clear Calc 102.36 Est GFR (MDRD) Af Amer 111 Est GFR (MDRD) Non-Af 92 BUN/Creatinine Ratio 15.0 Glucose 100 Calcium 8.9 Troponin I < 0.015 none Operations: None Procedures: None Summary of Care Provided: The patient is a 48 year old M with a past medical history of obesity, SVT with history of ablations, LORETTA, fast coronary artery disease but normal coronary arteries on cardiac cath 04/07/2018 at [facility], history of nephrolithiasis, hypertension, anxiety with panic attacks, paroxysmal atrial fibrillation, GERD, benign paroxysmal positional vertigo, hyperlipidemia and thoracic aortic aneurysm without rupture who presented to [facility] emergency room on 04/09/2018 complaining of chest pain and lightheadedness. Was not associated with exertion. He had a cardiac catheterization done by Dr. Jesse Harris on 04/07/2018 and had normal coronaries and an ejection fraction of 60%. He was discharged at that time on flecainide and Imdur. He called Dr. Hale who was on-call for Dr. Harris complaining of chest pain and lightheadedness and was told to come to the emergency room. In the emergency room his heart rate was 214 bpm but spontaneously improved to 82 bpm. But pressure was unremarkable and he was not tachypneic or hypoxic. No significant lab abnormalities at admission. Chest x-ray showed no infiltrates, pleural effusions or pulmonary vascular congestion. He was admitted to the hospital for observation. Telemetry showed occasional sinus tachycardia with heart rates in the 120s. Blood pressures were within normal limits. I spoke with Dr. Harris and the Imdur was discontinued. Lisinopril was decreased to 10 mg twice daily from 40 mg daily. He will resume the flecainide. A 30 day event monitor was ordered prior to discharge from the hospital and he will follow up with Dr. Harris in the office in 5-6 weeks to review the results of the 30 day event monitor. He has suffered from anxiety for a long time. He is currently on Effexor 150 mg daily for treatment of anxiety. He has been on benzodiazepines in the past that worked well to control his anxiety but they are highly addictive. He has had psychotherapy in the past but not for many years. Effexor can actually increase anxiety in patients whose problem is mostly anxiety. He has had panic attacks in the past with chest pain, shortness of breath, palpitations and a sensation that he is going to . Prior to discharge he met with Zachery Brush from the Behavioral Health program. The 150mg dose of Effexor was discontinued and he was given a prescription for 75mg capsules and will take 1 daily in the AM for 1 week and then discontinue. He will follow up with Josefina Colon NP 1 week after discontinuing the Effexor and I recommend he be started on a pure SSRI. He has tried Buspar in the past and it did not control his sx. I am hopeful he will be able to follow up in the program for therapy to learn to control his anxiety and panic attacks. Discharge Activity: Return to Normal Activity Call your doctor if you observe: Fever of 101 or Higher, Fainting spells Home Medications: Medications to take at Discharge Pantoprazole Sodium [Protonix] 40 mg PO DAILY 04/22/16 Carvedilol [Coreg] 25 mg PO BID 01/31/17 Albuterol Inhaler [Ventolin Hfa] 1 - 2 puff INHALATION Q4H PRN PRN #1 inhaler 07/15/17 Apixaban [Eliquis] 5 mg PO BID 09/21/17 gabapentin 100 mg capsule 100 mg PO QHS #30 cap 01/14/18 meclizine 12.5 mg tablet 12.5 mg PO QODAY PRN #30 tab 01/14/18 amlodipine 5 mg tablet 5 mg PO DAILY #90 tab 02/26/18 Furosemide 40 mg PO QDAY 03/20/18 Aspirin [Aspir-Low] 81 mg PO QDAY 04/09/18 Atorvastatin Calcium [Lipitor] 20 mg PO QDAY 04/09/18 Lisinopril [Zestril] 10 mg PO BID #60 tab 04/09/18 Tamsulosin HCl [Flomax] 0.4 mg PO QDAY 04/09/18 Venlafaxine HCl [Effexor Xr] 75 mg PO DAILY #7 cap.er.24h 04/09/18 Following Prescrptions Were Given to Patient: Venlafaxine HCl [Effexor Xr] 75 mg PO DAILY #7 cap.er.24h Lisinopril [Zestril] 10 mg PO BID #60 tab Other Amb Orders: 30-Day Event Recorder [[facility]] Location: None Selected Primary Care Physician: Kristyn Bearden MD [Primary Care Provider] - Please follow up with your Primary Care Physician in: 2 weeks with Tawanda Colon Please Follow Up With: Jesse Harris MD When: 5-6 weeks Patient Instructions: Your Body's Response to Anxiety, Understanding Panic Disorder (Panic Attack), Treating Anxiety Disorders with Therapy Disposition: Home Minutes spent on discharge:: 30 Patient Condition:: Good Medical Necessity - Tobacco Use Smoking Status: Never smoker Meaningful Use Info Meaningful Use Diagnoses (Choose all that apply): None applicable Code Visit OBSV E&M: 26436 Observation care discharge
--- NOTE | 2018-04-09 16:03 | DS.PCM_ITS ---
Discharge Date and Diagnosis - Problem List Patient Problems: Active and Suspected Problems (Last Reviewed 02/26/18 @ 11:43 by LUNA Carrillo) Non-cardiac chest pain (Acute) Date of Admission: 04/09/18 Date of Discharge: 04/09/18 - Primary Discharge Diagnosis Active and Suspected Problems (Last Reviewed 02/26/18 @ 11:43 by LUNA Carrillo) Non-cardiac chest pain (Acute) - suspect due to panic attack - Secondary Discharge Diagnosis Chronic Problems (Last Reviewed 02/26/18 @ 11:43 by ERNIE Carrillo) Ascending aorta dilatation (Chronic) SVT (supraventricular tachycardia) (Chronic) LORETTA (obstructive sleep apnea) (Chronic) Atherosclerotic heart disease of [place] coronary artery without angina pectoris (Chronic) History of left heart catheterization (Chronic) 11/09/2016 @ [facility], per Dr. Cory Harley: normal coronaries 04/07/2018 @ [facility] per Dr. Harris: normal coronaries Nephrolithiasis (Chronic) HTN (hypertension) (Chronic) Anxiety (Chronic) - not adequately controlled PAF (paroxysmal atrial fibrillation) (Chronic) Multiple cardioversions, [facility] ablation (2nd). Recent ED presentation 02/24/18 w/ Atrial Fibrillation w/ RVR, successful cardioversion performed. GERD (gastroesophageal reflux disease) (Chronic) Obesity (BMI 30-39.9) (Chronic) BPPV (benign paroxysmal positional vertigo) (Chronic) HLD (hyperlipidemia) (Chronic) Thoracic aortic aneurysm without rupture (Chronic) Hospital Course and Treatment Imaging Results: Clinical Impression(s) from Imaging Studies Chest X-Ray 04/08/18 20:45 IMPRESSION: No acute cardiopulmonary disease Electronically Signed: Lazaro Hoang DO at 21:20 EDT Tel , Service support , Laboratory Tests 04/08/18 04/08/18 19:55 19:55 WBC 7.8 RBC 5.37 Hgb 14.4 Hct 44.6 MCV 83.1 MCH 26.8 L MCHC 32.3 RDW 15.4 H RDW Differential 46.8 H Plt Count 323 MPV 9.0 Immature Gran % (Auto) 0.000 Neut % (Auto) 53.4 Lymph % (Auto) 36.3 [place] % (Auto) 9.1 Eos % (Auto) 0.8 Baso % (Auto) 0.4 Absolute Neuts (auto) 4.2 Absolute Lymphs (auto) 2.84 Total Counted Not Reportable Sodium 139 Potassium 4.3 Chloride 105 Carbon Dioxide 29.0 Anion Gap 5 BUN 14 Creatinine 0.94 Estim Creat Clear Calc 102.36 Est GFR (MDRD) Af Amer 111 Est GFR (MDRD) Non-Af 92 BUN/Creatinine Ratio 15.0 Glucose 100 Calcium 8.9 Troponin I < 0.015 none Operations: None Procedures: None Summary of Care Provided: The patient is a 48 year old M with a past medical history of obesity, SVT with history of ablations, LORETTA, fast coronary artery disease but normal coronary arteries on cardiac cath 04/07/2018 at [facility], history of nephrolithiasis, hypertension, anxiety with panic attacks, paroxysmal atrial fibrillation, GERD, benign paroxysmal positional vertigo, hyperlipidemia and thoracic aortic aneurysm without rupture who presented to [facility] emergency room on 04/09/2018 complaining of chest pain and lightheadedness. Was not associated with exertion. He had a cardiac catheterization done by Dr. Jesse Harris on 04/07/2018 and had normal coronaries and an ejection fraction of 60%. He was discharged at that time on flecainide and Imdur. He called Dr. Hale who was on-call for Dr. Harris complaining of chest pain and lightheadedness and was told to come to the emergency room. In the emergency room his heart rate was 214 bpm but spontaneously improved to 82 bpm. But pressure was unremarkable and he was not tachypneic or hypoxic. No significant lab abnormalities at admission. Chest x-ray showed no infiltrates, pleural effusions or pulmonary vascular congestion. He was admitted to the hospital for observation. Telemetry showed occasional sinus tachycardia with heart rates in the 120s. Blood pressures were within normal limits. I spoke with Dr. Harris and the Imdur was discontinued. Lisinopril was decreased to 10 mg twice daily from 40 mg daily. He will resume the flecainide. A 30 day event monitor was ordered prior to discharge from the hospital and he will follow up with Dr. Harris in the office in 5-6 weeks to review the results of the 30 day event monitor. He has suffered from anxiety for a long time. He is currently on Effexor 150 mg daily for treatment of anxiety. He has been on benzodiazepines in the past that worked well to control his anxiety but they are highly addictive. He has had psychotherapy in the past but not for many years. Effexor can actually increase anxiety in patients whose problem is mostly anxiety. He has had panic attacks in the past with chest pain, shortness of breath, palpitations and a sensation that he is going to . Prior to discharge he met with Zachery Brush from the Behavioral Health program. The 150mg dose of Effexor was discontinued and he was given a prescription for 75mg capsules and will take 1 daily in the AM for 1 week and then discontinue. He will follow up with Josefina Colon NP 1 week after discontinuing the Effexor and I recommend he be started on a pure SSRI. He has tried Buspar in the past and it did not control his sx. I am hopeful he will be able to follow up in the program for therapy to learn to control his anxiety and panic attacks. Discharge Activity: Return to Normal Activity Call your doctor if you observe: Fever of 101 or Higher, Fainting spells Home Medications: Medications to take at Discharge Pantoprazole Sodium [Protonix] 40 mg PO DAILY 04/22/16 Carvedilol [Coreg] 25 mg PO BID 01/31/17 Albuterol Inhaler [Ventolin Hfa] 1 - 2 puff INHALATION Q4H PRN PRN #1 inhaler Apixaban [Eliquis] 5 mg PO BID 09/21/17 gabapentin 100 mg capsule 100 mg PO QHS #30 cap 01/14/18 meclizine 12.5 mg tablet 12.5 mg PO QODAY PRN #30 tab 01/14/18 amlodipine 5 mg tablet 5 mg PO DAILY #90 tab 02/26/18 Furosemide 40 mg PO QDAY 03/20/18 Aspirin [Aspir-Low] 81 mg PO QDAY 04/09/18 Atorvastatin Calcium [Lipitor] 20 mg PO QDAY 04/09/18 Lisinopril [Zestril] 10 mg PO BID #60 tab 04/09/18 Tamsulosin HCl [Flomax] 0.4 mg PO QDAY 04/09/18 Venlafaxine HCl [Effexor Xr] 75 mg PO DAILY #7 cap.er.24h 04/09/18 Following Prescrptions Were Given to Patient: Venlafaxine HCl [Effexor Xr] 75 mg PO DAILY #7 cap.er.24h Lisinopril [Zestril] 10 mg PO BID #60 tab Other Amb Orders: 30-Day Event Recorder [[facility]] Location: None Selected Primary Care Physician: Kristyn Bearden MD [Primary Care Provider] - Please follow up with your Primary Care Physician in: 2 weeks with Tawanda Colon Please Follow Up With: Jesse Harris MD When: 5-6 weeks Patient Instructions: Your Body's Response to Anxiety, Understanding Panic Disorder (Panic Attack), Treating Anxiety Disorders with Therapy Disposition: Home Minutes spent on discharge:: 30 Patient Condition:: Good Medical Necessity - Tobacco Use Smoking Status: Never smoker Meaningful Use Info Meaningful Use Diagnoses (Choose all that apply): None applicable Code Visit OBSV E&M: 69221 Observation care discharge
--- NOTE | 2018-04-09 16:24 | BH.NOTE ---
: Inpatient Note - Notes Behavioral Health Inpatient Note: 04/09/18 16:24 Referral to [facility] due to anxiety symptoms. Met with pt in his room. Denies any suicidal ideations, plan, or intent. Admits to daily anxiety due to medical issues, daily stressors, and finances. Extremely focused on health issues which include cardiac issues, kidney stones, and aneurysm. Endorses anxiety contributes to poor sleep (somedays I don't sleep at all), poor appetite (lost 20lbs in 4 weeks), decreased energy, and decreased motivation. Reports that 4-5 days a week he has little interest or desire to complete any tasks. Some insight into how anxiety can cause psychosomatic symptoms as well as how anxiety attacks can mimic symptoms of heart concerns. Reports decrease in quality of life for the past several years stating that he ideally would like to be more active and engaged in fixing up the house however feels limited due to health concerns. Hx of counseling several years ago which he found was beneficial. Currently on psychotropic medications which are managed by PCP. Overall, pt's anxiety is negatively impacting daily functioning. Denies overwhelming depression. We discussed outpatient treatment options and pt is agreeable to follow up. Was given resources to local mental health providers as well as information on [facility] IOP program. Will follow up in a couple days.
== END 2018-04-09 16:45 | disposition home or self-care (01) ==
LOC: ED 23:14 → PCU 04-09 00:22
PROVIDERS: Admitting Provider Internal Medicine; Emergency Provider Emergency Medicine; Family Provider Internal Medicine; PCP Internal Medicine; Visit Provider Internal Medicine
DX: R07.89 Other chest pain (principal); G47.33 Obstructive sleep apnea (adult) (pediatric); I25.10 Atherosclerotic heart disease of native coronary artery without angina pectoris; I10 Essential (primary) hypertension; F41.9 Anxiety disorder, unspecified; I48.0 Paroxysmal atrial fibrillation; K21.9 Gastro-esophageal reflux disease without esophagitis; E78.5 Hyperlipidemia, unspecified; H81.10 Benign paroxysmal vertigo, unspecified ear; E66.9 Obesity, unspecified; Z68.32 Body mass index [BMI] 32.0-32.9, adult; Z71.3 Dietary counseling and surveillance; I47.1 Supraventricular tachycardia; Z79.899 Other long term (current) drug therapy; Z79.01 Long term (current) use of anticoagulants
CPT/HCPCS: 71045; 80048; 84484; 85025; 93005; 96361; 96372; 96374; 96375; 96376; 99218; 99285; J7030; A4216; G0378; J2405

== ENCOUNTER → 2018-04-15 07:20 | Outpatient (CLI) | payer MEDICARE, SELFPAY ==
--- NOTE | 2018-04-15 10:34 | NEURO ---
NCS and/or EMG Patient Report Ordering Doctor: Claribel Batista DATE OF SERVICE: 04/15/18 This is a right upper extremity EMG and nerve conduction study performed on this 48-year-old male with a history of pain in his right shoulder radiating to his elbow. His symptoms have been present for 6 months and accompanied by numbness and tingling in all of the fingers in his right hand. He is healthy otherwise without a history of diabetes. He denies neck pain, and no radiation of symptoms with changes in his neck or head position. Right upper extremity sensory and motor nerve conduction studies performed. Median motor and sensory distal latencies mildly prolonged with intact amplitudes and conduction velocities. The ulnar motor and sensory and radial sensory response is intact. The median and ulnar F-wave latencies are intact. Right upper extremity needle electromyography is performed. Muscles evaluated included the first dorsal interosseous, abductor pollicis brevis, brachioradialis, biceps, triceps and deltoid muscles. All muscles demonstrated normal insertional activity with absence of pathologic spontaneous activity. Motor unit potential recruitment pattern and amplitude is normal in all muscles tested. Impression: This is an abnormal electrophysiologic study of the right upper extremity consistent with mild carpal tunnel syndrome at the wrist.
== END ==
LOC: PSN 07:21
PROVIDERS: Family Provider Internal Medicine; PCP Internal Medicine; Visit Provider Orthopaedic Surgery
DX: G56.01 Carpal tunnel syndrome,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 (principal)
CPT/HCPCS: 95886; 95910

== ENCOUNTER 2018-04-16 18:57 | Emergency (ER) | payer MEDICARE, SELFPAY ==
[2018-04-16 18:57] VITALS: BP 160/99; PULSE 83; RESP 23; TEMP 36.5; O2SAT 100; BMI 33.9
--- NOTE | 2018-04-16 19:10 | EKG12_ITS ---
Test Reason : CP Blood Pressure : / mmHG Vent. Rate : 082 BPM Atrial Rate : 082 BPM P-R Int : 178 ms QRS Dur : 076 ms QT Int : 360 ms P-R-T Axes : 009 -03 002 degrees QTc Int : 420 ms Normal sinus rhythm Normal ECG Confirmed by JEANCARLOS DAHL MD ([id number]), manager editorial CRISTIAN KAUR ([id number] on 04/18/2018 9:19:17 AM Referred By: ED PHYSICIAN Confirmed By:JEANCARLOS DAHL MD
--- NOTE | 2018-04-16 19:35 | RAD_ITS ---
STUDY: X-RAY CHEST REASON FOR EXAM: Male, 48 years old. Chest pain and dizziness TECHNIQUE: PA and lateral COMPARISON: April 08, 2018. FINDINGS: The lungs are clear and expanded. There is no demonstrated pleural abnormality. Normal size heart. Mediastinal widening likely due to tortuous aorta or fat deposition.. Normal visualized pulmonary arteries. Normal visualized aortic arch and descending thoracic aorta. Dorsal spine demonstrates mild spondylosis Normal visualized ribs, clavicles, and shoulders. There is no demonstrated abnormality of the visualized soft tissue structures of the upper abdomen. RAD/Chest PA and Lateral IMPRESSION: Nonspecific mediastinal widening CTA would be helpful to exclude aortic pathology if indicated Otherwise no acute cardiopulmonary pathology. Electronically Signed: Chavez Gil MD at 20:10 EDT , Service support ,
--- NOTE | 2018-04-16 19:46 | ED.VISSUMM ---
- ER Visit Summary Date of Service: 04/16/18 Chief Complaint: Left-sided chest pain History of Present Illness: The patient is a 48 M who presents with left-sided chest pain that he localizes lateral the sternum over the fourth fifth intercostal space. He denies any recent URI symptoms. He denies nasal congestion, earache, sore throat or productive cough. He states he has a mild cough. He was driving home from [place] after seeing a cardiothoracic surgeon who has been following his known thoracic aneurysm that is 4.5 cm in size. He denies history of PE or DVT. Denies leg pain, swelling discoloration. He has no risk factors for VTE Patient states pain is sharp pinching in nature without radiation. He may have slight shortness of breath. He denies radiation to the jaw, neck, shoulders or back. He is concerned this may represent an anxiety attack. He states he has been under significant stress. He denies hematemesis, melena hematochezia. He denies any history of trauma. He does have history of anxiety disorder. He also has history of hypertension. Physical Examination: Vital signs are unremarkable. His respiratory rate on my count was 16. The monitor had his rest rate of 12 and not 23. He is not febrile nor is he hypoxic. He does appear anxious. He has bilateral hearing aids. Nares patent with mild drainage noted. No frontal, ethmoid maxillary sinus tenderness. Posterior pharynx without erythema or exudate. Uvula midline. There is no postnasal drainage. Trach is midline. There is no stridor. There is no reproducible chest pain. Lungs are clear to auscultation. Heart is regular without murmur, gallop or rub. Abdomen soft nontender. There is no asymmetry, swelling, discoloration, leg vein distention, palpable cords or tenderness along the distribution of the deep venous system. Test Results: Two-view chest x-ray reveals a widened mediastinum is unchanged from prior secondary to known thoracic aneurysm. Cardiac silhouette normal. Lung parenchyma normal. EKG sinus rhythm rate of 82 and normal. Troponin is normal. Emergency Department Course and Treatment: Patient is PERC negative based on my respiratory count. Heart score is 2. Will obtain EKG, chest x-ray and troponin. If workup is unremarkable have him follow-up with PCP. Treatment Plan: Patient with atypical left-sided chest pain suspect anxiety. Heart score is 2. He is considered low risk and outpatient follow-up workup is acceptable. Disposition: Discharged to home Impression: 1. Left parasternal chest pain 2. Anxiety This note was generated with [email or web address] dictation software. It may contain incorrect words, spelling, and punctuation that were not noted in review of the chart prior to signing ED Disposition - Plan for ED Patient: Disposition: Home or Assisted Living Chief Complaint: Chest Pain Instructions: ED Chest Pain Atypical Unkn Cause Referrals: Kristyn Bearden MD [Primary Care Provider] - 3-5 Days
[2018-04-16 19:48] VITALS: BP 142/100; PULSE 76; RESP 18; O2SAT 100
--- NOTE | 2018-04-16 19:50 | ED.DCSUM_ITS ---
- ER Visit Summary Date of Service: 04/16/18 Chief Complaint: Left-sided chest pain History of Present Illness: The patient is a 48 M who presents with left-sided chest pain that he localizes lateral the sternum over the fourth fifth intercostal space. He denies any recent URI symptoms. He denies nasal congestion, earache, sore throat or productive cough. He states he has a mild cough. He was driving home from [employer] after seeing a cardiothoracic surgeon who has been following his known thoracic aneurysm that is 4.5 cm in size. He denies history of PE or DVT. Denies leg pain, swelling discoloration. He has no risk factors for VTE Patient states pain is sharp pinching in nature without radiation. He may have slight shortness of breath. He denies radiation to the jaw, neck, shoulders or back. He is concerned this may represent an anxiety attack. He states he has been under significant stress. He denies hematemesis, melena hematochezia. He denies any history of trauma. He does have history of anxiety disorder. He also has history of hypertension. Physical Examination: Vital signs are unremarkable. His respiratory rate on my count was 16. The monitor had his rest rate of 12 and not 23. He is not febrile nor is he hypoxic. He does appear anxious. He has bilateral hearing aids. Nares patent with mild drainage noted. No frontal, ethmoid maxillary sinus tenderness. Posterior pharynx without erythema or exudate. Uvula midline. There is no postnasal drainage. Trach is midline. There is no stridor. There is no reproducible chest pain. Lungs are clear to auscultation. Heart is regular without murmur, gallop or rub. Abdomen soft nontender. There is no asymmetry, swelling, discoloration, leg vein distention , palpable cords or tenderness along the distribution of the deep venous system. Test Results: Two-view chest x-ray reveals a widened mediastinum is unchanged from prior secondary to known thoracic aneurysm. Cardiac silhouette normal. Lung parenchyma normal. EKG sinus rhythm rate of 82 and normal. Troponin is normal. Emergency Department Course and Treatment: Patient is PERC negative based on my respiratory count. Heart score is 2. Will obtain EKG, chest x-ray and troponin. If workup is unremarkable have him follow-up with PCP. Treatment Plan: Patient with atypical left-sided chest pain suspect anxiety. Heart score is 2. He is considered low risk and outpatient follow-up workup is acceptable. Disposition: Discharged to home Impression: 1. Left parasternal chest pain 2. Anxiety This note was generated with [employer] dictation software. It may contain incorrect words, spelling, and punctuation that were not noted in review of the chart prior to signing ED Disposition - Plan for ED Patient: Disposition: Home or Assisted Living Chief Complaint: Chest Pain Instructions: ED Chest Pain Atypical Unkn Cause Referrals: Kristyn Bearden MD [Primary Care Provider] - 3-5 Days
[2018-04-16 20:01] VITALS: BP 151/100; PULSE 89; RESP 17; O2SAT 98
[2018-04-16] MEDS: LORazepam 0.5 MG Tablet PO (20:01)
[2018-04-16 21:04] VITALS: BP 136/98; PULSE 85; RESP 18; O2SAT 99
[2018-04-16 21:13] VITALS: BP 137/98; PULSE 89; RESP 18; O2SAT 99
== END 2018-04-16 21:18 | disposition home or self-care (01) ==
PROVIDERS: Emergency Provider Emergency Medicine; Family Provider Internal Medicine; PCP Internal Medicine
DX: R07.89 Other chest pain (principal); F41.9 Anxiety disorder, unspecified; I71.2 Thoracic aortic aneurysm, without rupture; I10 Essential (primary) hypertension; E78.00 Pure hypercholesterolemia, unspecified; E66.9 Obesity, unspecified; Z68.33 Body mass index [BMI] 33.0-33.9, adult; Z79.82 Long term (current) use of aspirin; Z79.01 Long term (current) use of anticoagulants; Z79.899 Other long term (current) drug therapy
CPT/HCPCS: 71046; 84484; 93005; 99285

== ENCOUNTER 2018-05-07 20:28 | Emergency (ER) | payer MEDICARE, SELFPAY ==
[2018-05-07 20:29] VITALS: BP 126/96; PULSE 105; RESP 16; TEMP 37.1; O2SAT 99; BMI 33.5
[2018-05-07 20:49] VITALS: BP 132/86; PULSE 101; RESP 14; O2SAT 98
--- NOTE | 2018-05-07 21:06 | CT_ITS ---
STUDY: CT ABDOMEN AND PELVIS WITHOUT CONTRAST REASON FOR EXAM: Male, 48 years old. Rt sided abd pain, increased urination RADIATION DOSAGE (If Supplied By Facility): CTDIvol = ( 19.34 ) mGy, DLP = ( 1126.03 ) mGycm TECHNIQUE: Transaxial images were obtained from the dome of the diaphragm to the symphysis pubis without oral contrast, and without intravenous contrast. Sagittal and coronal images were reconstructed. Individualized dose optimization techniques were used for this CT. COMPARISON: 6.18 FINDINGS: The visualized lung bases are unremarkable. The visualized portions of the heart are within normal limits. Normal liver. Normal gallbladder and extrahepatic biliary system. Normal spleen. Normal pancreas. Normal bilateral adrenal glands. 3.2 mm mid right calyceal and 4.1 mm inferior calyceal right renal stones. Double-J right ureteral stent in place. Mild right hydronephrosis. Normal left kidney. Normal visualized stomach. Normal small intestine. Normal colon. The appendix is visualized and appears normal. There is diffuse atherosclerotic calcification of the abdominal aorta, without a demonstrated aneurysm. Normal inferior vena cava. Normal retroperitoneum. Normal urinary bladder. There are prostatic calcifications. There are bilateral inguinal hernias containing fat. There is no bowel involvement. There is no incarceration. There is no findings suggesting that this is causing a bowel obstruction. Spinal fixation hardware visualized at L4-5. CT/Abdomen/Pelvis without Cont IMPRESSION: 3.2 mm mid right calyceal and 4.1 mm inferior calyceal right renal stones. Double-J right ureteral stent in place. Mild right hydronephrosis. No ureteral stones visualized. Electronically Signed: Nash Contreras MD at 22:06 EDT , Service support ,
[2018-05-07 21:18] LABS: Bacteria 0 SEEN /hpf (None Seen); Mucous, Urine 0 SEEN /hpf (<or=2+); Squamous Epithelial Cells - UA 0 SEEN /hpf (0-5); White Blood Cells 0 SEEN /hpf (0-5)
[2018-05-07 21:29] LABS: Glucose, Dipstick Normal (Normal); Ketone-Dipstick Negative (Negative); Leukocyte Esterase-Dipstick Negative /ul (Negative); Nitrite-Dipstick Negative (Negative); Occult Blood-Urine 250 /ul (Negative); Protein-Dipstick 15 mg/dl (Negative); Specific Gravity, Urine 1.015 (1.002-1.030); Urine Bilirubin Dipstick Negative (Negative); Urine Urobilinogen Normal (Normal)
[2018-05-07 21:29] LABS: Absolute Lymphocyte Count 2.54 X10^3/ul (0.83-4.51); Absolute Neutrophil Count 3.9 X10^3/uL (2.0-7.7); Basophil# 0.02 X10^3/uL; Basophil% 0.3 % (0-1); Eosinophil# 0.11 X10^3/uL; Eosinophils% 1.5 % (0-5); Hematocrit 42.1 % (40-54); Hemoglobin 13.9 g/dl (13.0-16.5); Lymphocyte # 2.54 X10^3/ul (4.0); Lymphocyte % 34.2 % (19-41); Mean Corpuscular Hgb 26.9 pg (27.0-32.0); Mean Corpuscular Volume 81.4 fL (80-94); Mean Platelet Vol. 8.6 fl (6.2-12.0); Monocyte# 0.81 X10^3/uL; Monocyte% 10.9 % (0-10); Neutrophil # 3.92 X10^3/uL (2.7-7.7); Neutrophil % 52.8 % (47-70); Platelet Count 277 K/mm3 (150-450); RBC Distribution Width CV 14.4 % (11.6-14.6); RBC Distribution Width SD 42.5 fl (35.1-43.9); Red Blood Count 5.17 M/mm3 (4.6-6.2); White Blood Count 7.4 K/mm3 (4.4-11.0)
[2018-05-07 21:30] LABS: POSITIVE COUNT NO; POSITIVE DIFFERENTIAL NO; POSITIVE MORPHOLOGY NO
[2018-05-07 21:39] LABS: Anion Gap 8 (5-15); BUN 12 mg/dL (7-18); BUN/Creat Ratio 13.6 RATIO (10-20); Calcium,Total 8.7 mg/dL (8.5-10.1); Chloride 107 mmol/L (98-107); Creatinine, Serum 0.88 mg/dL (0.70-1.30); EST Glomerular Filtration Rate 98 mL/min (>60); Est Glom Filt Rate - Afr Amer 118 mL/min (>60); Estimated Creatinine Clearance 109.34 ml/min; Glucose 89 mg/dL (74-106); Potassium 3.4 mmol/L (3.5-5.1); Sodium Level 138 mmol/L (136-145)
[2018-05-07 21:42] LABS: Color, Urine Yellow (Yellow); Urine Clarity Clear (Clear)
[2018-05-07 21:43] LABS: Red Blood Cells-Urine 5-10 SEEN /hpf (0-5)
[2018-05-07] MEDS: Ondansetron 4 MG/2 ML Vial IV (21:50)
[2018-05-07] MEDS: HYDROmorphone 1 MG/ML Syringe 0.5 MG IV (21:50)
[2018-05-07] MEDS: Ketorolac 15 MG/ML Vial IV (21:51)
[2018-05-07] MEDS: 0.9% Normal Saline 1,000 ML 150 ML IV (21:51)
[2018-05-07 22:50] VITALS: BP 125/80; PULSE 90; RESP 14; O2SAT 99
[2018-05-07 23:01] VITALS: BP 125/90; PULSE 90; RESP 14; O2SAT 98
--- NOTE | 2018-05-07 23:29 | ED.DCSUM_ITS ---
- ER Visit Summary Date of Service: 05/07/18 Chief Complaint: Right flank pain History of Present Illness: The patient is a 48 M who had a had kidney stones removed from the right side on May 01 and had a ureteral stent placed the following day. His procedure was done [facility] with Dr. Langley. Patient states he had increased pain over the past 3 days. He has had nausea and vomiting. He is currently out of his Percocet. Patient went to an urgent care yesterday and was given Keflex and Pyridium for infection coverage. Patient states he has had some mild chills but no measured fever. Physical Examination: Vital signs are unremarkable. Patient sitting upright in bed no acute distress. He does appear uncomfortable. Head and neck examination unremarkable. Heart is regular rate and rhythm. Lung sounds are clear. Abdomen is soft with mild right-sided tenderness. He does have right-sided CVA tenderness. Test Results: CBC and chemistry studies significant only for potassium slightly low at 3.4. Urinalysis shows blood but no sign of infection. CT flank shows right renal stones. There is a double-J right ureteral stent in place. There is mild right hydronephrosis. No ureteral stones are visualized. Emergency Department Course and Treatment: Patient was treated with Dilaudid, Zofran, Toradol, and fluids. On repeat evaluation he is resting much more comfortably. He will be given a prescription for Percocet. Patient wishes to follow-up with the urologist here locally as he does have additional stones noted in the right kidney. He is referred to Dr. Moreira. Treatment Plan: [] Disposition: Discharge Impression: Right flank pain with recent ureteral stent placement This note was generated with Swap[employer] dictation software. It may contain incorrect words, spelling, and punctuation that were not noted in review of the chart prior to signing ED Disposition - Plan for ED Patient: Disposition: Home or Assisted Living Chief Complaint: Complaint Prescriptions: Oxycodone HCl/Acetaminophen [Percocet 5/325] 1 tablet PO Q6H PRN PRN 5 Days #20 tablet PRN Reason: Pain Referrals: Darwin Moreira MD [STAFF PHYSICIAN] - As Needed Additional Instructions: Your labwork, urine tests, and CT scan show that your stent is in good position. There is no sign of urinary infection and your renal function is normal. I believe your pain is due to spasm around the stent.
--- NOTE | 2018-05-07 23:32 | DCINST.ED_ITS ---
ED Disposition - Plan for ED Patient: Disposition: Home or Assisted Living Chief Complaint: Complaint Prescriptions: Oxycodone HCl/Acetaminophen [Percocet 5/325] 1 tablet PO Q6H PRN PRN 5 Days #20 tablet PRN Reason: Pain Referrals: Darwin Moreira MD [STAFF PHYSICIAN] - As Needed Additional Instructions: Your labwork, urine tests, and CT scan show that your stent is in good position. There is no sign of urinary infection and your renal function is normal. I believe your pain is due to spasm around the stent.
[2018-05-07 23:43] VITALS: BP 134/88; PULSE 96; RESP 14; O2SAT 99
[2018-05-07] MEDS: oxyCODONE 5 MG Tablet PO (23:47)
== END 2018-05-07 23:48 | disposition home or self-care (01) ==
LOC: ED 21:18
PROVIDERS: Emergency Provider Emergency Medicine; Family Provider Internal Medicine; PCP Internal Medicine
DX: N20.0 Calculus of kidney (principal); Z98.890 Other specified postprocedural states; I48.91 Unspecified atrial fibrillation; I71.2 Thoracic aortic aneurysm, without rupture; I25.2 Old myocardial infarction; I10 Essential (primary) hypertension; E78.00 Pure hypercholesterolemia, unspecified; K21.9 Gastro-esophageal reflux disease without esophagitis; I47.1 Supraventricular tachycardia; G47.33 Obstructive sleep apnea (adult) (pediatric); F41.9 Anxiety disorder, unspecified; Z79.01 Long term (current) use of anticoagulants; Z79.82 Long term (current) use of aspirin; Z79.899 Other long term (current) drug therapy; Z87.442 Personal history of urinary calculi; Z86.73 Personal history of transient ischemic attack (TIA), and cerebral infarction without residual deficits
CPT/HCPCS: 74176; 80048; 81001; 85025; 96361; 96374; 96375; 99283; J7030; A4216; J2405

== ENCOUNTER 2018-05-15 18:32 | Inpatient (IN) | payer MEDICARE, SELFPAY ==
[2018-05-15 18:33] VITALS: BP 127/86; PULSE 91; RESP 17; TEMP 36.7; O2SAT 98; BMI 33.5
--- NOTE | 2018-05-15 18:42 | EKG12_ITS ---
Test Reason : CP Blood Pressure : / mmHG Vent. Rate : 088 BPM Atrial Rate : 088 BPM P-R Int : 180 ms QRS Dur : 084 ms QT Int : 378 ms P-R-T Axes : -01 003 008 degrees QTc Int : 457 ms Sinus rhythm with Fusion complexes Otherwise normal ECG Confirmed by INDER CONNOR, ASAEL ([id number]), food expeditor RICCO LUZ ([id number]) on 05/20/2018 2:52:16 PM Referred By: CARRIE Confirmed By:ASAEL LOVING MD
--- NOTE | 2018-05-15 18:45 | RAD_ITS ---
STUDY: X-RAY CHEST REASON FOR EXAM: Male, 48 years old. Chest pain. TECHNIQUE: Portable frontal COMPARISON: April 02 and 2017. FINDINGS: There is no new focal consolidation. Normal size heart. There is stable prominence of the mediastinum. Normal visualized pulmonary arteries. Normal visualized aortic arch and descending thoracic aorta. Normal visualized thoracic spine. Normal visualized ribs, clavicles, and shoulders. There is no demonstrated abnormality of the visualized soft tissue structures of the upper abdomen. RAD/Chest 1 View (Portable) IMPRESSION: No acute cardiopulmonary process. Electronically Signed: Sasha Valverde MD at 18:56 EDT Tel , Service support ,
[2018-05-15 18:55] LABS: Absolute Lymphocyte Count 2.28 X10^3/ul (0.83-4.51); Absolute Neutrophil Count 5.3 X10^3/uL (2.0-7.7); Basophil# 0.02 X10^3/uL; Basophil% 0.2 % (0-1); Eosinophil# 0.12 X10^3/uL; Eosinophils% 1.4 % (0-5); Hematocrit 42.1 % (40-54); Hemoglobin 13.5 g/dl (13.0-16.5); Lymphocyte # 2.28 X10^3/ul (4.0); Lymphocyte % 27.4 % (19-41); Mean Corp Hgb Conc 32.1 g/gl (32-36); Mean Corpuscular Hgb 26.9 pg (27.0-32.0); Mean Corpuscular Volume 83.9 fL (80-94); Mean Platelet Vol. 8.4 fl (6.2-12.0); Monocyte# 0.54 X10^3/uL; Monocyte% 6.5 % (0-10); Neutrophil # 5.32 X10^3/uL (2.7-7.7); Neutrophil % 64.1 % (47-70); POSITIVE COUNT NO; POSITIVE DIFFERENTIAL NO; POSITIVE MORPHOLOGY NO; Platelet Count 287 K/mm3 (150-450); RBC Distribution Width SD 45.4 fl (35.1-43.9); Red Blood Count 5.02 M/mm3 (4.6-6.2); White Blood Count 8.3 K/mm3 (4.4-11.0)
--- NOTE | 2018-05-15 18:55 | ED.VISSUMM ---
- ER Visit Summary Date of Service: 05/15/18 Chief Complaint: [] Chest pain for 3 or 4 days recently admitted to [facility] with negative workup History of Present Illness: The patient is a 48 M [] 3 of A. fib history of mild heart attack, reports that he has been having chest pain since about Saturday or Saturday he was admitted [facility] on Saturday stay there for about 2448 hrs., during that visit he indicates he was told his cardiac workup was negative including a negative chest CTA for dissection or PE as he has a history of a thoracic aneurysm measuring 4.7 cm. He is seen by a basket sorter named Dr. Vásquez in the [place] area at [facility] there is some thought that maybe he needs to be started on satalol, he was to follow-up with those physicians to have that medication considered as part of his treatment option however his chest pain persisted is actually going on for 3 or 4 days and then he was instructed to come to the emergency department Had no fever no cough no history of DVT PE, his history of chest pain is similar pain to what is having but this is persisted for days now Physical Examination: [] Vital signs are within normal range she has a sinus rhythm on the heart monitor of 80 there is no signs of A. fib his lungs are clear heart tones are normal the abdomen soft nontender upper lower extremities unremarkable he is moving all 4 extremities pulses symmetric bilaterally Spoke with Dr. Martell about this patient given his complicated history and the multiple antiarrhythmics he is on, at this time the plan will be to evaluate his chest pain treat that we will try to review the records from [place] to evaluate all the above and arrange for admission for cardiac stress testing and further management of his arrhythmia/A. fib as clinically warranted Test Results: [] Emergency Department Course and Treatment: [] Please note the patient's labs are all unremarkable as his EKG and chest x-ray, we are waiting the results of the records from [facility] and the CTA report the plan is as above, discussed with hospitalist Treatment Plan: [] Disposition: [] Admit evaluation for chest pain Impression: [] Chest pain etiology unclear history of thoracic aneurysm 4.7 cm, history of A. fib This note was generated with IdeaSquaresation software. It may contain incorrect words, spelling, and punctuation that were not noted in review of the chart prior to signing ED Disposition - Plan for ED Patient: Chief Complaint: Chest Pain Referrals: Kristyn Bearden MD [Primary Care Provider] -
--- NOTE | 2018-05-15 18:58 | ED.DCSUM_ITS ---
- ER Visit Summary Date of Service: 05/15/18 Chief Complaint: [] Chest pain for 3 or 4 days recently admitted [address] [facility] [place] with negative workup History of Present Illness: The patient is a 48 M [] 3 of A. fib history of mild heart attack, reports that he has been having chest pain since about Saturday or Saturday he was admitted [facility] on Saturday stay there for about 2448 hrs., during that visit he indicates he was told his cardiac workup was negative including a negative chest CTA for dissection or PE as he has a history of a thoracic aneurysm measuring 4.7 cm. He is seen by a factory hand named Dr. Vásquez in the [place] area at [facility] there is some thought that maybe he needs to be started on satalol, he was to follow-up with those physicians to have that medication considered as part of his treatment option however his chest pain persisted is actually going on for 3 or 4 days and then he was instructed to come to the emergency department Had no fever no cough no history of DVT PE, his history of chest pain is similar pain to what is having but this is persisted for days now Physical Examination: [] Vital signs are within normal range she has a sinus rhythm on the heart monitor of 80 there is no signs of A. fib his lungs are clear heart tones are normal the abdomen soft nontender upper lower extremities unremarkable he is moving all 4 extremities pulses symmetric bilaterally Spoke with Dr. Martell about this patient given his complicated history and the multiple antiarrhythmics he is on, at this time the plan will be to evaluate his chest pain treat that we will try to review the records from [place] to evaluate all the above and arrange for admission for cardiac stress testing and further management of his arrhythmia/A. fib as clinically warranted Test Results: [] Emergency Department Course and Treatment: [] Please note the patient's labs are all unremarkable as his EKG and chest x-ray, we are waiting the results of the records from [facility] and the CTA report the plan is as above, discussed with hospitalist Treatment Plan: [] Disposition: [] Admit evaluation for chest pain Impression: [] Chest pain etiology unclear history of thoracic aneurysm 4.7 cm, history of A. fib This note was generated with Star[employer], Part [employer] software. It may contain incorrect words, spelling, and punctuation that were not noted in review of the chart prior to signing ED Disposition - Plan for ED Patient: Chief Complaint: Chest Pain Referrals: Kristyn Bearden MD [Primary Care Provider] -
[2018-05-15] MEDS: morphine 8 MG/ML Syringe IV (19:01)
[2018-05-15] MEDS: Aspirin 81 MG TAB.CHEW 324 MG PO (19:01)
[2018-05-15] MEDS: Ondansetron 4 MG/2 ML Vial IV (19:01)
[2018-05-15 19:14] LABS: Anion Gap 8 (5-15); BUN 11 mg/dL (7-18); BUN/Creat Ratio 10.2 RATIO (10-20); Calcium,Total 8.7 mg/dL (8.5-10.1); Chloride 105 mmol/L (98-107); Creatinine, Serum 1.08 mg/dL (0.70-1.30); EST Glomerular Filtration Rate 78 mL/min (>60); Est Glom Filt Rate - Afr Amer 94 mL/min (>60); Estimated Creatinine Clearance 89.09 ml/min; Glucose 99 mg/dL (74-106); Potassium 3.7 mmol/L (3.5-5.1); Sodium Level 139 mmol/L (136-145)
--- NOTE | 2018-05-15 19:32 | PCM.HP.STD ---
Problem List (1) Chest pain Status: Acute Qualifiers: (2) Ascending aorta dilatation Status: Chronic (3) PAF (paroxysmal atrial fibrillation) Status: Chronic History of Present Illness Date of Admission: 05/15/18 Chief Complaint: Chest pain ?3 days. The patient is a 48 year old M with a significant history of HTN, IA, thoracic aortic aneurysm, and A. fib who presented because of a 3 day history of chest pain. Patient was at [facility] 3 days ago because of chest pain and because of his history of thoracic aortic aneurysm a CTA of his chest was done but this was unremarkable. Cardiac workup including cardiac enzymes at [facility] was unremarkable. In regard to his A. fib, patient follows up with Dr. Andrew, immigration patrol inspector at [facility]. He had an ablation done in 2017 at [facility]. Plan is for him to go back to [facility] for 3 days of hospitalization where he will receive sotalol. At this time patient is on flecainide and is being managed by Dr. Harris Because of his recent chest pain he called Dr. Hale's office and his flecainide was escalated however his chest pain persisted. His pain is located at his left chest and it radiates into his left armpit. He rates his pain as 9 out of 10. His chest pain is episodic occurring at rest and with exertion. Associated with his symptoms is shortness of breath, lightheadedness headache, nausea and diaphoresis.. Patient reports intermittent feeling of heart racing ED DrKeyonna talked to Dr. Martell who recommended that we keep patient on his current medications, do stress test and Dr. Hale will see patient in a.m. Past Medical History Past Medical History (Chronic Problems): Chronic Problems (Last Reviewed 04/22/18 @ 09:38 by Brittani Qureshi) Ascending aorta dilatation (Chronic) SVT (supraventricular tachycardia) (Chronic) LORETTA (obstructive sleep apnea) (Chronic) Atherosclerotic heart disease of [place] coronary artery without angina pectoris (Chronic) History of left heart catheterization (Chronic) 11/09/2016 @ [facility], per Dr. Cory Harley: normal coronaries 04/07/2018 @ [facility] per Dr. Harris: normal coronaries Nephrolithiasis (Chronic) HTN (hypertension) (Chronic) Anxiety (Chronic) PAF (paroxysmal atrial fibrillation) (Chronic) GERD (gastroesophageal reflux disease) (Chronic) Obesity (BMI 30-39.9) (Chronic) BPPV (benign paroxysmal positional vertigo) (Chronic) HLD (hyperlipidemia) (Chronic) Thoracic aortic aneurysm without rupture (Chronic) Medical History: Medical History (Last Reviewed 04/22/18 @ 09:38 by Brittani Qureshi) Ascending aorta dilatation (Chronic) I77.810 SVT (supraventricular tachycardia) (Chronic) I47.1 LORETTA (obstructive sleep apnea) (Chronic) G47.33 Atherosclerotic heart disease of [place] coronary artery without angina pectoris (Chronic) I25.10 Nephrolithiasis (Chronic) N20.0 HTN (hypertension) (Chronic) I10 Anxiety (Chronic) F41.9 PAF (paroxysmal atrial fibrillation) (Chronic) I48.0 GERD (gastroesophageal reflux disease) (Chronic) K21.9 Obesity (BMI 30-39.9) (Chronic) E66.9 BPPV (benign paroxysmal positional vertigo) (Chronic) H81.10 HLD (hyperlipidemia) (Chronic) E78.5 Thoracic aortic aneurysm without rupture (Chronic) I71.2 Allergies clonidine Allergy (Intermediate, Verified 05/15/18 18:41) rash levofloxacin [From Levaquin] Allergy (Verified 05/15/18 18:41) Rash Penicillins Allergy (Verified 05/15/18 18:41) Hives bupropion Adverse Reaction (Intermediate, Verified 05/15/18 18:41) vomiting celecoxib [From Celebrex] Adverse Reaction (Intermediate, Verified 05/15/18 18:41) vomiting eletriptan Adverse Reaction (Intermediate, Verified 05/15/18 18:41) Vomiting topiramate [From Topamax] Adverse Reaction (Intermediate, Verified 05/15/18 18:41) vomiting hydrocodone bitartrate [From Vicodin] Adverse Reaction (Verified 05/15/18 18:41) Nausea Home Medications: Ambulatory Orders Medication Instructions Recorded Pantoprazole Sodium [Protonix] 40 mg PO DAILY 04/22/16 Carvedilol [Coreg] 25 mg PO BID 01/31/17 Albuterol Inhaler [Ventolin Hfa] 1 - 2 puff INHALATION Q4H PRN PRN 07/15/17 #1 inhaler Apixaban [Eliquis] 5 mg PO BID 12/02/17 meclizine 12.5 mg tablet 12.5 mg PO QODAY PRN #30 tab 01/14/18 amlodipine 5 mg tablet 5 mg PO DAILY #90 tab 02/26/18 Furosemide 40 mg PO QDAY 03/20/18 Aspirin [Aspir-Low] 81 mg PO QDAY 04/09/18 Tamsulosin HCl [Flomax] 0.4 mg PO QDAY 04/09/18 lisinopril 20 mg tablet 20 mg PO BID #60 tab 04/18/18 atorvastatin 20 mg tablet 20 mg PO QDAY #90 tab 04/28/18 escitalopram 10 mg tablet 15 mg PO QDAY #90 tab 04/28/18 gabapentin 100 mg capsule 100 mg PO QHS #90 cap 05/01/18 Oxycodone HCl/Acetaminophen 1 tablet PO Q6H PRN PRN 5 Days #20 05/07/18 [Percocet 5/325] tablet flecainide 100 mg tablet 100 mg PO Q12H #30 tab 05/15/18 Surgical History: Surgical History (Last Reviewed 04/22/18 @ 09:38 by Brittani Qureshi) History of left heart catheterization (Chronic) Z98.890 11/09/2016 @ [facility], per Dr. Cory Harley: normal coronaries 04/07/2018 @ [facility] per Dr. Harris: normal coronaries History of cardiac radiofrequency ablation (Resolved) Z98.890 10/09/[address] [facility] [address] Andrew H/O arthroscopic knee surgery Z98.890 History of back surgery Z98.890 History of right knee surgery Z98.890 Surgical History: - Psychiatric History: Anxiety Smoking Status: Never smoker - *Family History Maternal Family History: Family History (Last Reviewed 04/22/18 @ 09:38 by Brittani Qureshi) Brother Hypertension Mother Heart disease Colon cancer Sister Diabetes Sister Diabetes Sister Diabetes History Items: - - Maternal family history of DM, Colon CA, Valvular Heart Disease. Paternal Family History: Family History (Last Reviewed 04/22/18 @ 09:38 by Brittani Qureshi) Brother Hypertension Mother Heart disease Colon cancer Sister Diabetes Sister Diabetes Sister Diabetes History Items: - - Paternal family history of skin CA. Review of Systems Constitutional: Denies: Chills, Fever, Weight Change Eyes: Denies: Blurred vision, Pain HEENT: Denies: Head Aches, Sinus Congestion, Sinus Drainage Cardiovascular: Reports: Chest Pain Respiratory: Reports: Shortness of Breath Gastrointestinal: Denies: Abdominal Pain, Nausea, Vomiting Genitourinary: Denies: Dysuria Musculoskeletal: Reports: - - Pain in left armpit Skin: Denies: Rash, Wounds Neurological: Denies: Numbness, Tingling, Focal weakness Psychiatric: Reports: Anxiety Hematologic/ Lymphatic: Denies: Easy Bruising, Easy Bleeding VTE Information - Inpt Only VTE Present on Admission: No VTE Mechan Device Prophylaxis: None VTE Pharm Prophylaxis ordered?: No Reason prophylaxis not ordered:: Medical Contraindication - Physical Exam General: Alert, Oriented x3, Cooperative HEENT: Atraumatic, PERRLA, EOMI, Normocephalic Neck: Supple, No JVD, Negative Carotid Bruits Lungs: Clear to auscultation, Normal air movement Cardiovascular: Regular rate, No murmurs Abdomen: Bowel Sounds Present, Soft, Non Tender Extremities: No edema, Capillary Refill Less than 3 Seconds Skin: No rashes Musculoskeletal: No Tenderness to Palpation of Joints or Extremities Neurological: Cranial nerves II-XII grossly intact Psych/Mental Status: Anxious Vital Signs Temp Pulse Resp BP Pulse Ox 98.1 F 91 17 127/86 H 98 05/15/18 18:33 05/15/18 18:33 05/15/18 18:33 05/15/18 18:33 05/15/18 18:33 Oxygen Flow Rate (L/min) 2 Oxygen Delivery Method Nasal Cannula Weight: 109.1 kg Body Mass Index (BMI) 33.5 Finger Stick Blood Glucose 95 Laboratory Tests Past 24 Hrs 05/15/18 05/15/18 05/15/18 18:40 18:40 18:40 WBC 8.3 RBC 5.02 Hgb 13.5 Hct 42.1 MCV 83.9 MCH 26.9 L MCHC 32.1 RDW 15.0 H RDW Differential 45.4 H Plt Count 287 MPV 8.4 Immature Gran % (Auto) 0.400 Neut % (Auto) 64.1 Lymph % (Auto) 27.4 [place] % (Auto) 6.5 Eos % (Auto) 1.4 Baso % (Auto) 0.2 Absolute Neuts (auto) 5.3 Absolute Lymphs (auto) 2.28 Total Counted Not Reportable Sodium 139 Potassium 3.7 Chloride 105 Carbon Dioxide 26.0 Anion Gap 8 BUN 11 Creatinine 1.08 Estim Creat Clear Calc 89.09 Est GFR (MDRD) Af Amer 94 Est GFR (MDRD) Non-Af 78 BUN/Creatinine Ratio 10.2 Glucose 99 Calcium 8.7 Troponin I < 0.015 B-Natriuretic Peptide Pending Assessment/Plan All Active Problems (Last Reviewed 04/22/18 @ 09:38 by Brittani Qureshi) Non-cardiac chest pain (Acute) Chest pain (Acute) History of cardiac radiofrequency ablation (Resolved) Double vision (Resolved) The patient is a 48 year old M with a significant history of HTN, IA, thoracic aortic aneurysm, and A. fib who presented because of chest pain. Chest pain Admit to a monitored bed on PCU Received aspirin 324 at ED ASA 81 mg p.o. daily Atorvastatin continued Lisinopril and carvedilol continued SL NTG 0.4 mg prn as needed for chest pain Serial cardiac enzymes Stat EKG as needed for chest pain Stress test in AM Cardiology consult. A. fib, controlled Ventricular rate of between 89-105 Carvedilol continued Flecainide continued Eliquis continued Cardiology to see patient in a.m. Hypertension Amlodipine, lisinopril and Coreg continued Depression/anxiety Lexapro continued History of thoracic aneurysm Reportedly this was unchanged per recent CT at outside hospital DVT prophylaxis On Eliquis. No prophylaxis needed at this time. This note was prepared with speech recognition software and may be prone to errors in power press tender. Code Visit Inpatient E&M: 07091 Init Hosp L2
[2018-05-15 19:33] LABS: BNP,B-Type NATRIURETIC PEPTIDE 6.8 pg/mL (0-100)
[2018-05-15 20:08] VITALS: BP 125/96; PULSE 85; RESP 18; O2SAT 97
--- NOTE | 2018-05-15 20:49 | NURSING ---
Called ED second hand paper machine, Ryan at this time to confirm Pt okay to come to PCU.
[2018-05-15 21:23] VITALS: BP 120/79; PULSE 93; RESP 20; O2SAT 97
--- NOTE | 2018-05-15 22:12 | EKG12_ITS ---
Test Reason : CP ADMIT Blood Pressure : / mmHG Vent. Rate : 073 BPM Atrial Rate : 073 BPM P-R Int : 166 ms QRS Dur : 088 ms QT Int : 404 ms P-R-T Axes : -06 007 018 degrees QTc Int : 445 ms Normal sinus rhythm Normal ECG Confirmed by INDER CONNOR, ASAEL ([id number]), story editor RICCO LUZ ([id number]) on 05/20/2018 3:29:12 PM Referred By: DR COLEY Confirmed By:ASAEL LOVING MD
[2018-05-15 22:17] VITALS: PULSE 80
[2018-05-15 22:20] VITALS: BP 115/77; BP 119/75; PULSE 74; RESP 20; TEMP 36.8; O2SAT 95
[2018-05-15] MEDS: oxyCODONE 5 MG Tablet PO (23:32)
[2018-05-15] MEDS: Carvedilol 25 MG Tablet PO (23:35)
[2018-05-15] MEDS: APIXABAN 5 MG TABLET PO (23:35)
[2018-05-15] MEDS: Gabapentin 100 MG Capsule PO (23:35)
[2018-05-15] MEDS: Lisinopril 20 MG Tablet PO (23:35)
[2018-05-15 23:43] VITALS: BMI 33.2; BMI 33.5
[2018-05-16] VITALS (11 sets, daily range): BP systolic 96–111; BP diastolic 61–68; PULSE 63–80; RESP 16–18; TEMP 36.6–37.2; O2SAT 91–99
--- NOTE | 2018-05-16 05:30 | EKG12_ITS ---
Test Reason : AM EKG Blood Pressure : / mmHG Vent. Rate : 066 BPM Atrial Rate : 066 BPM P-R Int : 186 ms QRS Dur : 094 ms QT Int : 422 ms P-R-T Axes : 008 010 014 degrees QTc Int : 442 ms Normal sinus rhythm Normal ECG Confirmed by INDER CONNOR, ASAEL ([id number]), development editor RICCO LUZ ([id number]) on 05/20/2018 3:27:05 PM Referred By: DR GUERRA Confirmed By:ASAEL LOVING MD
[2018-05-16 05:31] LABS: Hematocrit 39.8 % (40-54); Hemoglobin 12.9 g/dl (13.0-16.5); Mean Corp Hgb Conc 32.4 g/gl (32-36); Mean Corpuscular Volume 83.3 fL (80-94); Mean Platelet Vol. 8.7 fl (6.2-12.0); Platelet Count 304 K/mm3 (150-450); Red Blood Count 4.78 M/mm3 (4.6-6.2); White Blood Count 8.5 K/mm3 (4.4-11.0)
[2018-05-16 05:36] LABS: International Normalized Ratio 1.1; Partial Thromboplast Time 30.4 Seconds (24.1-36.2); Prothrombin Time (Protime)PT. 13.7 SECONDS (11.7-14.9)
[2018-05-16 06:05] LABS: Anion Gap 8 (5-15); BUN 14 mg/dL (7-18); BUN/Creat Ratio 17.3 RATIO (10-20); Calcium,Total 8.7 mg/dL (8.5-10.1); Chloride 109 mmol/L (98-107); Creatinine, Serum 0.81 mg/dL (0.70-1.30); EST Glomerular Filtration Rate 108 mL/min (>60); Est Glom Filt Rate - Afr Amer 131 mL/min (>60); Estimated Creatinine Clearance 118.79 ml/min; Glucose 97 mg/dL (74-106); Sodium Level 142 mmol/L (136-145)
[2018-05-16 06:10] LABS: Scan Indicated on CBC? Y/N NO
[2018-05-16] MEDS: oxyCODONE 5 MG Tablet PO ×3 (06:16→22:05)
[2018-05-16] MEDS: Aspirin E.C. 81 MG Tablet PO (06:17)
[2018-05-16] MEDS: Lisinopril 20 MG Tablet PO ×2 (06:17→22:05)
--- NOTE | 2018-05-16 09:04 | EKG12_ITS ---
Test Reason : 1 HR AFTER MED Blood Pressure : / mmHG Vent. Rate : 066 BPM Atrial Rate : 066 BPM P-R Int : 164 ms QRS Dur : 090 ms QT Int : 410 ms P-R-T Axes : -06 012 023 degrees QTc Int : 429 ms Normal sinus rhythm Normal ECG Confirmed by INDER CONNOR, ASAEL ([id number]), communications editor RICCO LUZ ([id number]) on 05/23/2018 8:26:27 AM Referred By: DR FITZPATRICK Confirmed By:ASAEL LOVING MD
--- NOTE | 2018-05-16 09:06 | PCM.CONS.C ---
Problem List (1) Non-cardiac chest pain Status: Acute (2) Atrial fibrillation and flutter Status: Acute (3) History of cardiac radiofrequency ablation Status: Resolved Comment: 10/09/[address] [facility] [address] Andrew (4) Thoracic aortic aneurysm without rupture Status: Chronic (5) HLD (hyperlipidemia) Status: Chronic Qualifiers: (6) HTN (hypertension) Status: Chronic Qualifiers: Reason for Consult Date of Consultation: 05/16/18 History of Present Illness: The patient is a 48 year old white male who has previously been diagnosed with hyperlipidemia, hypertension, paroxysmal atrial fibrillation/flutter, status post EPS/RFA, thoracic aortic aneurysm without rupture, who presents for recurrent chest discomfort. The patient has undergone extensive noninvasive and invasive cardiovascular evaluation in the past at [facility] and outside institutions. On 03/20/2018 the patient had a transthoracic echocardiogram performed. The left ventricle was normal with an LVEF of 65% with trivial TR and an estimated RV systolic pressure 39 mmHg. On 03/20/2018 the patient had a pharmacologic stress nuclear imaging study performed which was interpreted as myocardial perfusion within normal limits with a gated LVEF of 81%. On 04/07/2018 the patient underwent diagnostic cardiac catheterization at [facility]. The left ventricle was normal with an LVEF of 60%. The coronary angiography reported normal coronary arteries. Of note the patient had a previous cardiac catheterization performed at [facility] on 11/09/2016. At that time the LV was reported as having preserved LV systolic function, elevated left ventricular end-diastolic pressure, and normal-appearing epicardial coronary arteries. The patient is undergone extensive evaluation for history of atrial fibrillation/flutter. This is led to medical management as well as a previous EPS/RFA procedure being performed at [facility]. He states he is scheduled for an upcoming visit to [facility] to alter his antiarrhythmic therapy from flecainide to sotalol. He has had recurrent chest discomfort. He describes it on the left side. This correlates at times with his underlying atrial dysrhythmia. He also has been doing additional musculoskeletal activities which appears to occur prior to some of his left-sided chest discomfort. He was recently evaluated at [facility]. This was for recurrent chest discomfort. According to medical records available for review he underwent noninvasive evaluation which included a chest CT scan which demonstrated no thromboembolic disease, a stable appearing thoracic aortic aneurysm reported at 4.6 cm and no coronary artery atherosclerotic calcifications. He has had recurrent episodes of his paroxysmal atrial fibrillation. He recently, based upon a recurrent event, was advised to attempt a pill in the pocket procedure to interrupt his atrial fibrillation by taking additional flecainide. He did this and noted subsequent return to sinus rhythm. However he presents back to the hospital this day, after his recent evaluation at the outside institution, for recurrent left-sided chest discomfort. Again he states that this may have been occurring with his atrial dysrhythmia and lasting after his atrial dysrhythmia abates. He also recently performed musculoskeletal activities. He has had no episodes of associated nausea, emesis, or diaphoresis. There has been no orthopnea, PND, or peripheral pitting edema. He does note his atrial dysrhythmia. He has had no near syncope or syncope. Thus far his cardiac enzymes have been negative. His ECGs have demonstrated normal sinus rhythm with no acute ECG changes. His court recording monitor since being in the hospital has demonstrated episodes of his paroxysmal atrial dysrhythmia. [] Past Medical History Allergies/Adverse Reactions: Allergies clonidine Allergy (Intermediate, Verified 05/15/18 18:41) rash levofloxacin [From Levaquin] Allergy (Verified 05/15/18 18:41) Rash Penicillins Allergy (Verified 05/15/18 18:41) Hives bupropion Adverse Reaction (Intermediate, Verified 05/15/18 18:41) vomiting celecoxib [From Celebrex] Adverse Reaction (Intermediate, Verified 05/15/18 18:41) vomiting eletriptan Adverse Reaction (Intermediate, Verified 05/15/18 18:41) Vomiting topiramate [From Topamax] Adverse Reaction (Intermediate, Verified 05/15/18 18:41) vomiting hydrocodone bitartrate [From Vicodin] Adverse Reaction (Verified 05/15/18 18:41) Nausea Home Medications: Ambulatory Orders Medication Instructions Recorded Pantoprazole Sodium [Protonix] 40 mg PO DAILY 04/22/16 Carvedilol [Coreg] 25 mg PO BID 01/31/17 Albuterol Inhaler [Ventolin Hfa] 1 - 2 puff INHALATION Q4H PRN PRN 07/15/17 #1 inhaler Apixaban [Eliquis] 5 mg PO BID 09/21/17 meclizine 12.5 mg tablet 12.5 mg PO QODAY PRN #30 tab 01/14/18 amlodipine 5 mg tablet 5 mg PO DAILY #90 tab 02/26/18 Furosemide 40 mg PO QDAY 03/20/18 Aspirin [Aspir-Low] 81 mg PO QDAY 04/09/18 Tamsulosin HCl [Flomax] 0.4 mg PO QDAY 04/09/18 lisinopril 20 mg tablet 20 mg PO BID #60 tab 04/18/18 atorvastatin 20 mg tablet 20 mg PO QDAY #90 tab 04/28/18 escitalopram 10 mg tablet 15 mg PO QDAY #90 tab 04/28/18 gabapentin 100 mg capsule 100 mg PO QHS #90 cap 05/01/18 Oxycodone HCl/Acetaminophen 1 tablet PO Q6H PRN PRN 5 Days #20 05/07/18 [Percocet 5/325] tablet flecainide 100 mg tablet 100 mg PO Q12H #30 tab 05/15/18 Past Medical History (Chronic Problems): Chronic Problems (Last Reviewed 04/22/18 @ 09:38 by Brittani Qureshi) SVT (supraventricular tachycardia) (Chronic) LORETTA (obstructive sleep apnea) (Chronic) Atherosclerotic heart disease of [place] coronary artery without angina pectoris (Chronic) History of left heart catheterization (Chronic) 11/09/2016 @ [facility], per Dr. Cory Harley: normal coronaries 04/07/2018 @ [facility] per Dr. Harris: normal coronaries Nephrolithiasis (Chronic) HTN (hypertension) (Chronic) Anxiety (Chronic) PAF (paroxysmal atrial fibrillation) (Chronic) GERD (gastroesophageal reflux disease) (Chronic) Obesity (BMI 30-39.9) (Chronic) BPPV (benign paroxysmal positional vertigo) (Chronic) HLD (hyperlipidemia) (Chronic) Thoracic aortic aneurysm without rupture (Chronic) Surgical History: - Psychiatric History: Anxiety - *Family History Maternal Family History: Family History (Last Reviewed 04/22/18 @ 09:38 by Brittani Qureshi) Brother Hypertension Mother Heart disease Colon cancer Sister Diabetes Sister Diabetes Sister Diabetes History Items: - - Maternal family history of DM, Colon CA, Valvular Heart Disease. Paternal Family History: Family History (Last Reviewed 04/22/18 @ 09:38 by Brittani Qureshi) Brother Hypertension Mother Heart disease Colon cancer Sister Diabetes Sister Diabetes Sister Diabetes History Items: - - Paternal family history of skin CA. Lives: Spouse/ Significant Other Smoking Status: Never smoker Alcohol: None Drugs: None Review of Systems - Review of Systems General: Denies: Fever, Night Sweats, Fatigue Cardiovascular: Reports: Chest Discomfort, Chest Discomfort at Rest, Palpitations. Denies: Shortness of Breath, Orthopnea, PND, Peripheral Edema, Lightheadedness, Dizziness, Near Syncope, Syncope Respiratory: Denies: Cough, Sputum Production, Hemoptysis Gastrointestinal: Denies: Hematemesis, Hematochezia, Melena Genitourinary: Denies: Dysuria, Hematuria Skin: Denies: Rash Subjectve: This is a 48-year-old white male who appears to be resting comfortably at the moment in no acute distress. Objective: Vital Signs Temp Pulse Resp BP Pulse Ox 97.8 F 67 16 105/66 95 05/16/18 04:15 05/16/18 04:15 05/16/18 04:15 05/16/18 04:15 05/16/18 04:15 Oxygen Delivery Method Room Air Weight: 238 lb 5.115 oz Body Mass Index (BMI) 33.2 Intake and Output for Last 24 Hours 05/14/18 05/15/18 05/16/18 23:59 23:59 23:59 Intake Total 50 / 50 Balance 50 / 50 General: Awake, Alert, Oriented x 3, Cooperative, No Acute Distress, Obese HEENT: Atraumatic, Normocephalic, PERRL, EOMI, Sclera Non Icteric Oral: Moist Mucosa Neck: Supple, Good ROM, No JVD Lungs: Clear to auscultation Cardiovascular: Regular Rhythm, Normal S1, Normal S2 Vascular: No Carotid Bruits Abdomen: Bowel Sounds Present, Soft, Non Tender Extremities: No Cyanosis, No Clubbing, No edema Lymphatic: No Lymph Node Enlargement Neurological: No Focal Motor or Sensory Deficit, CN II-XII Intact Psych/Mental Status: Appropriate, Normal Affect 05/15/18 23:11: Troponin I < 0.015 05/16/18 01:30: Troponin I < 0.015 05/16/18 05:12: WBC 8.5, RBC 4.78, Hgb 12.9 L, Hct 39.8 L, MCV 83.3, MCH 27.0, MCHC 32.4, RDW 15.0 H, RDW Differential 45.0 H, Plt Count 304, MPV 8.7 05/16/18 05:12: PT 13.7, INR 1.1, APTT 30.4 05/16/18 05:12: Sodium 142, Potassium 4.0, Chloride 109 H, Carbon Dioxide 25.0, Anion Gap 8, BUN 14, Creatinine 0.81, Est GFR (MDRD) Af Amer 131, Est GFR (MDRD) Non-Af 108, BUN/Creatinine Ratio 17.3, Glucose 97, Calcium 8.7 Rhythm: Sinus rhythm; paroxysmal atrial fibrillation/flutter EKG: Normal sinus rhythm; no acute ECG changes ECHO: As noted above Stress Test: As noted above Cardiac Cath: As noted above Chest CT Scan: As noted above Assessment/Plan 1. Chest pain The patient presents with recurrent chest pain. This has been a chronic issue for him. He has had extensive noninvasive and invasive cardiovascular evaluation. He has not been found to have any evidence of underlying angiographically significant CAD to explain his discomfort. He does have a thoracic aortic aneurysm as noted above with recent evaluation with no obvious associated complication. He does have paroxysmal atrial fibrillation/flutter which appears to his concern of a correlation with his discomfort. He has had no other evidence such as thromboembolic disease to explain his discomfort. There may be a concern of a musculoskeletal component based upon his other physical related activities. At the present time it does not appear he requires additional noninvasive or invasive evaluation of underlying CAD based upon his recent extensive evaluation. Noting that his symptoms may have a correlation with his atrial dysrhythmia and appears appropriate to proceed with evaluation care of his atrial dysrhythmia. He should be monitored for any noncardiac etiologies require further evaluation as well. 2. Paroxysmal atrial fibrillation/flutter At the present time he is undergone extensive evaluation as previously noted. He will continue his medical therapy which does include rate control therapy and antiarrhythmic therapy and anticoagulant therapy. Noting his upcoming EP plans he has requested that his medication adjustment be performed at [facility]. Thus the present time he will continue to be monitored. He will continue his control therapy and anticoagulant therapy. His antiarrhythmic therapy with respect to flecainide will be discontinued. He will be placed on antiarrhythmic therapy with sotalol. He will need to remain in the hospital for a minimum of 4 doses of sotalol with follow-up cardiac rhythm monitoring and ECGs. 3. Thoracic aortic aneurysm without rupture He has recently undergone evaluation for this as noted above. He will continue to be followed as an outpatient. 4. Hyperlipidemia The patient will continue lipid-lowering therapy as deemed appropriate. 5. Hypertension The patient will continue antihypertensive therapy. Hopefully this will help with respect to his atrial dysrhythmias and associated symptoms. Comment: The above was discussed and reviewed with the patient and his spouse. They were both agreeable to this approach. This note was generated with [employer] dictation software. It may contain incorrect words, spelling, and punctuation that were not noted in checking the note before signing.
--- NOTE | 2018-05-16 09:21 | CON.PCM_ITS ---
Problem List (1) Non-cardiac chest pain Status: Acute (2) Atrial fibrillation and flutter Status: Acute (3) History of cardiac radiofrequency ablation Status: Resolved Comment: 10/09/[address] [facility] [address] Andrew (4) Thoracic aortic aneurysm without rupture Status: Chronic (5) HLD (hyperlipidemia) Status: Chronic Qualifiers: (6) HTN (hypertension) Status: Chronic Qualifiers: Reason for Consult Date of Consultation: 05/16/18 History of Present Illness: The patient is a 48 year old white male who has previously been diagnosed with hyperlipidemia, hypertension, paroxysmal atrial fibrillation/flutter, status post EPS/RFA, thoracic aortic aneurysm without rupture, who presents for recurrent chest discomfort. The patient has undergone extensive noninvasive and invasive cardiovascular evaluation in the past at [facility] and outside institutions. On 03/20/2018 the patient had a transthoracic echocardiogram performed. The left ventricle was normal with an LVEF of 65% with trivial TR and an estimated RV systolic pressure 39 mmHg. On 03/20/2018 the patient had a pharmacologic stress nuclear imaging study performed which was interpreted as myocardial perfusion within normal limits with a gated LVEF of 81%. On 04/07/2018 the patient underwent diagnostic cardiac catheterization at [facility]. The left ventricle was normal with an LVEF of 60%. The coronary angiography reported normal coronary arteries. Of note the patient had a previous cardiac catheterization performed at [facility] on 11/09/2016. At that time the LV was reported as having preserved LV systolic function, elevated left ventricular end-diastolic pressure, and normal-appearing epicardial coronary arteries. The patient is undergone extensive evaluation for history of atrial fibrillation /flutter. This is led to medical management as well as a previous EPS/RFA procedure being performed at [facility]. He states he is scheduled for an upcoming visit to [facility] to alter his antiarrhythmic therapy from flecainide to sotalol. He has had recurrent chest discomfort. He describes it on the left side. This correlates at times with his underlying atrial dysrhythmia. He also has been doing additional musculoskeletal activities which appears to occur prior to some of his left-sided chest discomfort. He was recently evaluated at [facility]. This was for recurrent chest discomfort. According to medical records available for review he underwent noninvasive evaluation which included a chest CT scan which demonstrated no thromboembolic disease, a stable appearing thoracic aortic aneurysm reported at 4.6 cm and no coronary artery atherosclerotic calcifications. He has had recurrent episodes of his paroxysmal atrial fibrillation. He recently, based upon a recurrent event, was advised to attempt a pill in the pocket procedure to interrupt his atrial fibrillation by taking additional flecainide. He did this and noted subsequent return to sinus rhythm. However he presents back to the hospital this day, after his recent evaluation at the outside institution, for recurrent left-sided chest discomfort. Again he states that this may have been occurring with his atrial dysrhythmia and lasting after his atrial dysrhythmia abates. He also recently performed musculoskeletal activities. He has had no episodes of associated nausea, emesis, or diaphoresis. There has been no orthopnea, PND, or peripheral pitting edema. He does note his atrial dysrhythmia. He has had no near syncope or syncope. Thus far his cardiac enzymes have been negative. His ECGs have demonstrated normal sinus rhythm with no acute ECG changes. 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 [] Past Medical History Allergies/Adverse Reactions: Allergies clonidine Allergy (Intermediate, Verified 05/15/18 18:41) rash levofloxacin [From Levaquin] Allergy (Verified 05/15/18 18:41) Rash Penicillins Allergy (Verified 05/15/18 18:41) Hives bupropion Adverse Reaction (Intermediate, Verified 05/15/18 18:41) vomiting celecoxib [From Celebrex] Adverse Reaction (Intermediate, Verified 05/15/18 18: 41) vomiting eletriptan Adverse Reaction (Intermediate, Verified 05/15/18 18:41) Vomiting topiramate [From Topamax] Adverse Reaction (Intermediate, Verified 05/15/18 18: 41) vomiting hydrocodone bitartrate [From Vicodin] Adverse Reaction (Verified 05/15/18 18:41) Nausea Home Medications: Ambulatory Orders Medication Instructions Recorded Pantoprazole Sodium [Protonix] 40 mg PO DAILY 04/22/16 Carvedilol [Coreg] 25 mg PO BID 01/31/17 Albuterol Inhaler [Ventolin Hfa] 1 - 2 puff INHALATION Q4H PRN PRN 07/15/17 #1 inhaler Apixaban [Eliquis] 5 mg PO BID 09/21/17 meclizine 12.5 mg tablet 12.5 mg PO QODAY PRN #30 tab 01/14/18 amlodipine 5 mg tablet 5 mg PO DAILY #90 tab 02/26/18 Furosemide 40 mg PO QDAY 03/20/18 Aspirin [Aspir-Low] 81 mg PO QDAY 04/09/18 Tamsulosin HCl [Flomax] 0.4 mg PO QDAY 04/09/18 lisinopril 20 mg tablet 20 mg PO BID #60 tab 04/18/18 atorvastatin 20 mg tablet 20 mg PO QDAY #90 tab 04/28/18 escitalopram 10 mg tablet 15 mg PO QDAY #90 tab 04/28/18 gabapentin 100 mg capsule 100 mg PO QHS #90 cap 05/01/18 Oxycodone HCl/Acetaminophen 1 tablet PO Q6H PRN PRN 5 Days #20 05/07/18 [Percocet 5/325] tablet flecainide 100 mg tablet 100 mg PO Q12H #30 tab 05/15/18 Past Medical History (Chronic Problems): Chronic Problems (Last Reviewed 04/22/18 @ 09:38 by Brittani Qureshi) SVT (supraventricular tachycardia) (Chronic) LORETTA (obstructive sleep apnea) (Chronic) Atherosclerotic heart disease of [place] coronary artery without angina pectoris (Chronic) History of left heart catheterization (Chronic) 11/09/[address] [facility], per Dr. Cory Harley: normal coronaries 04/07/2018 @ [facility] per Dr. Harris: normal coronaries Nephrolithiasis (Chronic) HTN (hypertension) (Chronic) Anxiety (Chronic) PAF (paroxysmal atrial fibrillation) (Chronic) GERD (gastroesophageal reflux disease) (Chronic) Obesity (BMI 30-39.9) (Chronic) BPPV (benign paroxysmal positional vertigo) (Chronic) HLD (hyperlipidemia) (Chronic) Thoracic aortic aneurysm without rupture (Chronic) Surgical History: - Psychiatric History: Anxiety - *Family History Maternal Family History: Family History (Last Reviewed 04/22/18 @ 09:38 by Brittani Qureshi) Brother Hypertension Mother Heart disease Colon cancer Sister Diabetes Sister Diabetes Sister Diabetes History Items: - - Maternal family history of DM, Colon CA, Valvular Heart Disease. Paternal Family History: Family History (Last Reviewed 04/22/18 @ 09:38 by Brittani Qureshi) Brother Hypertension Mother Heart disease Colon cancer Sister Diabetes Sister Diabetes Sister Diabetes History Items: - - Paternal family history of skin CA. Lives: Spouse/ Significant Other Smoking Status: Never smoker Alcohol: None Drugs: None Review of Systems - Review of Systems General: Denies: Fever, Night Sweats, Fatigue Cardiovascular: Reports: Chest Discomfort, Chest Discomfort at Rest, Palpitations. Denies: Shortness of Breath, Orthopnea, PND, Peripheral Edema, Lightheadedness, Dizziness, Near Syncope, Syncope Respiratory: Denies: Cough, Sputum Production, Hemoptysis Gastrointestinal: Denies: Hematemesis, Hematochezia, Melena Genitourinary: Denies: Dysuria, Hematuria Skin: Denies: Rash Subjectve: This is a 48-year-old white male who appears to be resting comfortably at the moment in no acute distress. Objective: Vital Signs Temp Pulse Resp BP Pulse Ox 97.8 F 67 16 105/66 95 05/16/18 04:15 05/16/18 04:15 05/16/18 04:15 05/16/18 04:15 05/16/18 04:15 Oxygen Delivery Method Room Air Weight: 238 lb 5.115 oz Body Mass Index (BMI) 33.2 Intake and Output for Last 24 Hours 05/14/18 05/15/18 05/16/18 23:59 23:59 23:59 Intake Total 50 / 50 Balance 50 / 50 General: Awake, Alert, Oriented x 3, Cooperative, No Acute Distress, Obese HEENT: Atraumatic, Normocephalic, PERRL, EOMI, Sclera Non Icteric Oral: Moist Mucosa Neck: Supple, Good ROM, No JVD Lungs: Clear to auscultation Cardiovascular: Regular Rhythm, Normal S1, Normal S2 Vascular: No Carotid Bruits Abdomen: Bowel Sounds Present, Soft, Non Tender Extremities: No Cyanosis, No Clubbing, No edema Lymphatic: No Lymph Node Enlargement Neurological: No Focal Motor or Sensory Deficit, CN II-XII Intact Psych/Mental Status: Appropriate, Normal Affect 05/15/18 23:11: Troponin I < 0.015 05/16/18 01:30: Troponin I < 0.015 05/16/18 05:12: WBC 8.5, RBC 4.78, Hgb 12.9 L, Hct 39.8 L, MCV 83.3, MCH 27.0, MCHC 32.4, RDW 15.0 H, RDW Differential 45.0 H, Plt Count 304, MPV 8.7 05/16/18 05:12: PT 13.7, INR 1.1, APTT 30.4 05/16/18 05:12: Sodium 142, Potassium 4.0, Chloride 109 H, Carbon Dioxide 25.0, Anion Gap 8, BUN 14, Creatinine 0.81, Est GFR (MDRD) Af Amer 131, Est GFR (MDRD ) Non-Af 108, BUN/Creatinine Ratio 17.3, Glucose 97, Calcium 8.7 Rhythm: Sinus rhythm; paroxysmal atrial fibrillation/flutter EKG: Normal sinus rhythm; no acute ECG changes ECHO: As noted above Stress Test: As noted above Cardiac Cath: As noted above Chest CT Scan: As noted above Assessment/Plan 1. Chest pain The patient presents with recurrent chest pain. This has been a chronic issue for him. He has had extensive noninvasive and invasive cardiovascular evaluation. He has not been found to have any evidence of underlying angiographically significant CAD to explain his discomfort. He does have a thoracic aortic aneurysm as noted above with recent evaluation with no obvious associated complication. He does have paroxysmal atrial fibrillation/flutter which appears to his concern of a correlation with his discomfort. He has had no other evidence such as thromboembolic disease to explain his discomfort. There may be a concern of a musculoskeletal component based upon his other physical related activities. At the present time it does not appear he requires additional noninvasive or invasive evaluation of underlying CAD based upon his recent extensive evaluation. Noting that his symptoms may have a correlation with his atrial dysrhythmia and appears appropriate to proceed with evaluation care of his atrial dysrhythmia. He should be monitored for any noncardiac etiologies require further evaluation as well. 2. Paroxysmal atrial fibrillation/flutter At the present time he is undergone extensive evaluation as previously noted. He will continue his medical therapy which does include rate control therapy and antiarrhythmic therapy and anticoagulant therapy. Noting his upcoming EP plans he has requested that his medication adjustment be performed at [facility]. Thus the present time he will continue to be monitored. He will continue his control therapy and anticoagulant therapy. His antiarrhythmic therapy with respect to flecainide will be discontinued. He will be placed on antiarrhythmic therapy with sotalol. He will need to remain in the hospital for a minimum of 4 doses of sotalol with follow-up cardiac rhythm monitoring and ECGs. 3. Thoracic aortic aneurysm without rupture He has recently undergone evaluation for this as noted above. He will continue to be followed as an outpatient. 4. Hyperlipidemia The patient will continue lipid-lowering therapy as deemed appropriate. 5. Hypertension The patient will continue antihypertensive therapy. Hopefully this will help with respect to his atrial dysrhythmias and associated symptoms. Comment: The above was discussed and reviewed with the patient and his spouse. They were both agreeable to this approach. This note was generated with [employer] dictation software. It may contain incorrect words, spelling, and punctuation that were not noted in checking the note before signing.
[2018-05-16] MEDS: Sotalol Hydrochloride 80 MG Tablet 120 MG PO ×2 (09:35→22:04)
[2018-05-16] MEDS: amLODIPine 5 MG Tablet PO (09:36)
[2018-05-16] MEDS: Escitalopram Oxalate 10 MG Tablet 15 MG PO (09:36)
[2018-05-16] MEDS: Carvedilol 25 MG Tablet PO ×2 (09:36→22:05)
[2018-05-16] MEDS: Tamsulosin HCl 0.4 MG Capsule PO (09:36)
[2018-05-16] MEDS: APIXABAN 5 MG TABLET PO ×2 (09:37→22:06)
[2018-05-16] MEDS: Pantoprazole Sodium 40 MG Tablet PO (09:37)
[2018-05-16] MEDS: Furosemide 40 MG Tablet PO (09:37)
--- NOTE | 2018-05-16 10:34 | PCM.PROGNOTE ---
Patient Problems: Active and Suspected Problems (Last Reviewed 04/22/18 @ 09:38 by Brittani Qureshi) Atrial fibrillation and flutter (Acute) Subjective: Chief complaint: Follow-up after admission for recurrent chest pain/discomfort. Patient seen and examined. No acute events overnight. He is still complaining of chest pain discomfort this morning but slightly improved compared to yesterday at night. He denies shortness of breath, dizziness, sweating, syncope or presyncope. He denied palpitation. His vital signs are stable. - Physical Exam General: Alert, Oriented x3, Cooperative, No apparent distress HEENT: Atraumatic, PERRLA, EOMI, Normocephalic Oral: Moist Mucosa, No Gingival or Mucosal Lesions/ Ulcerations Neck: Supple, No JVD, Negative Carotid Bruits, Trachea Midline, Thyroid Normal Size and Texture Lungs: Clear to auscultation, No rhonchi, No wheeze, No rales, Diminished Cardiovascular: Regular rate, Regular Rhythm, Normal S1, Normal S2, PMI Normal Abdomen: Bowel Sounds Present, Soft, Non Tender, Non-Distended, No Hepato-splenomegaly Extremities: No clubbing, No cyanosis, No edema Skin: No rashes, No breakdown Lymphatic: No Cervical, Supraclavicular, or Inguinal Adenopathy Neurological: Cranial nerves II-XII grossly intact, Motor Exam 5/5 strength throughout Psych/Mental Status: Normal Affect, Appropriate, Alert and oriented to time, place, person, mood and affect Vital Signs Temp Pulse Resp BP Pulse Ox 97.8 F 80 18 106/61 99 05/16/18 10:00 05/16/18 10:00 05/16/18 10:00 05/16/18 10:05/16/18 10:00 Oxygen Delivery Method Room Air Weight: 238 lb 5.115 oz Body Mass Index (BMI) 33.2 Intake and Output for Last 24 Hours 05/14/18 05/15/18 05/16/18 23:59 23:59 23:59 Intake Total 50 / 50 Balance 50 / 50 Laboratory Tests Past 24 Hrs 05/15/18 05/16/18 05/16/18 23:11 01:30 05:12 WBC 8.5 RBC 4.78 Hgb 12.9 L Hct 39.8 L MCV 83.3 MCH 27.0 MCHC 32.4 RDW 15.0 H RDW Differential 45.0 H Plt Count 304 MPV 8.7 PT INR APTT Sodium Potassium Chloride Carbon Dioxide Anion Gap BUN Creatinine Estim Creat Clear Calc Est GFR (MDRD) Af Amer Est GFR (MDRD) Non-Af BUN/Creatinine Ratio Glucose Calcium Troponin I < 0.015 < 0.015 05/16/18 05/16/18 05:12 05:12 WBC RBC Hgb Hct MCV MCH MCHC RDW RDW Differential Plt Count MPV PT 13.7 INR 1.1 APTT 30.4 Sodium 142 Potassium 4.0 Chloride 109 H Carbon Dioxide 25.0 Anion Gap 8 BUN 14 Creatinine 0.81 Estim Creat Clear Calc 118.79 Est GFR (MDRD) Af Amer 131 Est GFR (MDRD) Non-Af 108 BUN/Creatinine Ratio 17.3 Glucose 97 Calcium 8.7 Troponin I Clinical Impression(s) from Imaging Studies Chest X-Ray 05/15/18 18:45 IMPRESSION: No acute cardiopulmonary process. Electronically Signed: Sasha Valverde MD at 18:56 EDT Tel , Service support , Medical Necessity - Tobacco Use Smoking Status: Never smoker Assessment/Plan All Active Problems (Last Reviewed 04/22/18 @ 09:38 by Brittani Qureshi) Atrial fibrillation and flutter (Acute) History of cardiac radiofrequency ablation (Resolved) Double vision (Resolved) This is a 48 years old male patient admitted for chest pain for evaluation and he has been having recurrent chest pain. #1 chest pain/recurrent: His EKG reveals no evidence of acute ischemic changes. Troponin negative ?3. Chest x-ray showed no acute findings. Routine blood work was unremarkable. Recently, he had extensive noninvasive and invasive cardiac workup. On April 07, 2018, he had cardiac catheterization that revealed normal coronary arteries with normal LV size and function as well as normal ejection fraction. He had stress test on March 20, 2018 that showed no evidence of stress-induced myocardial ischemia. At this time, his paroxysmal A. fib and flutter is of concern causing his chest pain and discomfort. Cardiology consulted, stated no indication for further cardiac workup. Today, flecainide was discontinued and patient was started on sotalol. Plan to continue same treatment, close monitoring, plan to keep him in the hospital for follow-up EKG until he receives 4 doses of sotalol. #2 paroxysmal A. fib/flutter: He has been in sinus rhythm, rate is controlled. Recurrence continued, started on Cipro this morning. He is on Eliquis for anti-cognition. #3 hypertension: Blood pressure stable, continue Norvasc, Coreg and lisinopril. #4 hyperlipidemia: Continue statins. #5 thoracic aortic aneurysm: Without rupture, stable. #6 GERD: Continue Protonix. #7 depression: Continue Lexapro. #8 DVT prophylaxis: Continue Eliquis. This note was generated with [employer] dictation software. It may contain incorrect words, spelling, and punctuation that were not noted in checking the note before signing. Code Visit Inpatient E&M: 28657 Subs Hosp L2
--- NOTE | 2018-05-16 10:43 | PN_ITS ---
Patient Problems: Active and Suspected Problems (Last Reviewed 04/22/18 @ 09:38 by Brittani Qureshi) Atrial fibrillation and flutter (Acute) Subjective: Chief complaint: Follow-up after admission for recurrent chest pain/discomfort. Patient seen and examined. No acute events overnight. He is still complaining of chest pain discomfort this morning but slightly improved compared to yesterday at night. He denies shortness of breath, dizziness, sweating, syncope or presyncope. He denied palpitation. His vital signs are stable. - Physical Exam General: Alert, Oriented x3, Cooperative, No apparent distress HEENT: Atraumatic, PERRLA, EOMI, Normocephalic Oral: Moist Mucosa, No Gingival or Mucosal Lesions/ Ulcerations Neck: Supple, No JVD, Negative Carotid Bruits, Trachea Midline, Thyroid Normal Size and Texture Lungs: Clear to auscultation, No rhonchi, No wheeze, No rales, Diminished Cardiovascular: Regular rate, Regular Rhythm, Normal S1, Normal S2, PMI Normal Abdomen: Bowel Sounds Present, Soft, Non Tender, Non-Distended, No Hepato- splenomegaly Extremities: No clubbing, No cyanosis, No edema Skin: No rashes, No breakdown Lymphatic: No Cervical, Supraclavicular, or Inguinal Adenopathy Neurological: Cranial nerves II-XII grossly intact, Motor Exam 5/5 strength throughout Psych/Mental Status: Normal Affect, Appropriate, Alert and oriented to time, place, person, mood and affect Vital Signs Temp Pulse Resp BP Pulse Ox 97.8 F 80 18 106/61 99 05/16/18 10:00 05/16/18 10:00 05/16/18 10:00 05/16/18 10:05/16/18 10:00 Oxygen Delivery Method Room Air Weight: 238 lb 5.115 oz Body Mass Index (BMI) 33.2 Intake and Output for Last 24 Hours 05/14/18 05/15/18 05/16/18 23:59 23:59 23:59 Intake Total 50 / 50 Balance 50 / 50 Laboratory Tests Past 24 Hrs 05/15/18 05/16/18 05/16/18 23:11 01:30 05:12 WBC 8.5 RBC 4.78 Hgb 12.9 L Hct 39.8 L MCV 83.3 MCH 27.0 MCHC 32.4 RDW 15.0 H RDW Differential 45.0 H Plt Count 304 MPV 8.7 PT INR APTT Sodium Potassium Chloride Carbon Dioxide Anion Gap BUN Creatinine Estim Creat Clear Calc Est GFR (MDRD) Af Amer Est GFR (MDRD) Non-Af BUN/Creatinine Ratio Glucose Calcium Troponin I < 0.015 < 0.015 05/16/18 05/16/18 05:12 05:12 WBC RBC Hgb Hct MCV MCH MCHC RDW RDW Differential Plt Count MPV PT 13.7 INR 1.1 APTT 30.4 Sodium 142 Potassium 4.0 Chloride 109 H Carbon Dioxide 25.0 Anion Gap 8 BUN 14 Creatinine 0.81 Estim Creat Clear Calc 118.79 Est GFR (MDRD) Af Amer 131 Est GFR (MDRD) Non-Af 108 BUN/Creatinine Ratio 17.3 Glucose 97 Calcium 8.7 Troponin I Clinical Impression(s) from Imaging Studies Chest X-Ray 05/15/18 18:45 IMPRESSION: No acute cardiopulmonary process. Electronically Signed: Sasha Valverde MD at 18:56 EDT Tel , Service support , Medical Necessity - Tobacco Use Smoking Status: Never smoker Assessment/Plan All Active Problems (Last Reviewed 04/22/18 @ 09:38 by Brittani Qureshi) Atrial fibrillation and flutter (Acute) History of cardiac radiofrequency ablation (Resolved) Double vision (Resolved) This is a 48 years old male patient admitted for chest pain for evaluation and he has been having recurrent chest pain. #1 chest pain/recurrent: His EKG reveals no evidence of acute ischemic changes. Troponin negative ?3. Chest x-ray showed no acute findings. Routine blood work was unremarkable. Recently, he had extensive noninvasive and invasive cardiac workup. On April 07, 2018, he had cardiac catheterization that revealed normal coronary arteries with normal LV size and function as well as normal ejection fraction. He had stress test on March 20, 2018 that showed no evidence of stress-induced myocardial ischemia. At this time, his paroxysmal A. fib and flutter is of concern causing his chest pain and discomfort. Cardiology consulted, stated no indication for further cardiac workup. Today, flecainide was discontinued and patient was started on sotalol. Plan to continue same treatment, close monitoring, plan to keep him in the hospital for follow-up EKG until he receives 4 doses of sotalol. #2 paroxysmal A. fib/flutter: He has been in sinus rhythm, rate is controlled. Recurrence continued, started on Cipro this morning. He is on Eliquis for anti- cognition. #3 hypertension: Blood pressure stable, continue Norvasc, Coreg and lisinopril. #4 hyperlipidemia: Continue statins. #5 thoracic aortic aneurysm: Without rupture, stable. #6 GERD: Continue Protonix. #7 depression: Continue Lexapro. #8 DVT prophylaxis: Continue Eliquis. This note was generated with [employer] dictation software. It may contain incorrect words, spelling, and punctuation that were not noted in checking the note before signing. Code Visit Inpatient E&M: 14938 Subs Hosp L2
--- NOTE | 2018-05-16 11:45 | CASEMGMT ---
Face to Face with patient for initial transition planning/care coordination assessment. NINA LR introduced self and role at [facility], pt voices understanding and consents to assessment at this time. Pt is lying in bed in no distress at this time. Pt is A/Ox4 at this time and answers all questions appropriately at this time. Care providers, pharmacy, and demographics verified. See attached link. Pt voices no further concerns/needs at this time. Advised pt to ask for CM if any further questions/concerns/needs arise, voices understanding. PLAN: [place] [facility]
[2018-05-16] MEDS: Ondansetron 4 MG/2 ML Vial IV (16:14)
--- NOTE | 2018-05-16 16:44 | NURSING ---
This RN taking over care at this time
[2018-05-16] MEDS: Atorvastatin Calcium 20 MG Tablet PO (22:05)
[2018-05-16] MEDS: Gabapentin 100 MG Capsule PO (22:05)
[2018-05-16] MEDS: Acetaminophen 500 MG Tablet 1000 MG PO (22:26)
--- NOTE | 2018-05-16 23:04 | EKG12_ITS ---
Test Reason : AM EKG Blood Pressure : / mmHG Vent. Rate : 064 BPM Atrial Rate : 064 BPM P-R Int : 174 ms QRS Dur : 092 ms QT Int : 428 ms P-R-T Axes : 005 022 020 degrees QTc Int : 441 ms Normal sinus rhythm Normal ECG Confirmed by INDER CONNOR, ASAEL ([id number]), editor magazine RICCO LUZ ([id number] on 05/23/2018 8:25:29 AM Referred By: MARBELLA Confirmed By:ASAEL LOVING MD
[2018-05-17] VITALS (13 sets, daily range): BP systolic 98–121; BP diastolic 50–86; PULSE 60–78; RESP 16–18; TEMP 35.9–36.8; O2SAT 94–98
--- NOTE | 2018-05-17 07:46 | PCM.PROGNOTE ---
Patient Problems: Active and Suspected Problems (Last Reviewed 04/22/18 @ 09:38 by Brittani Qureshi) Atrial fibrillation and flutter (Acute) Subjective: Chief complaint: Follow-up after admission for recurrent chest pain/discomfort. Patient seen and examined. No acute events overnight. Today, he mentioned that he still having intermittent chest pain but improved. Denied shortness of breath. His vital signs are stable. - Physical Exam General: Alert, Oriented x3, Cooperative, No apparent distress HEENT: Atraumatic, PERRLA, EOMI, Normocephalic Oral: Moist Mucosa, No Gingival or Mucosal Lesions/ Ulcerations Neck: Supple, No JVD, Negative Carotid Bruits, Trachea Midline, Thyroid Normal Size and Texture Lungs: Clear to auscultation, No rhonchi, No wheeze, No rales, Diminished Cardiovascular: Regular rate, Regular Rhythm, Normal S1, Normal S2, No murmurs Abdomen: Bowel Sounds Present, Soft, Non Tender, Non-Distended, No Hepato-splenomegaly Extremities: No clubbing, No cyanosis, No edema Skin: No rashes, No breakdown Lymphatic: No Cervical, Supraclavicular, or Inguinal Adenopathy Neurological: Cranial nerves II-XII grossly intact, Motor Exam 5/5 strength throughout Psych/Mental Status: Normal Affect, Appropriate, Alert and oriented to time, place, person, mood and affect Vital Signs Temp Pulse Resp BP Pulse Ox 98.2 F 65 16 98/50 L 97 05/17/18 04:45 05/17/18 06:59 05/17/18 04:45 05/17/18 04:45 05/17/18 04:45 Oxygen Delivery Method Room Air Intake and Output for Last 24 Hours 05/15/18 05/16/18 05/17/18 23:59 23:59 23:59 Intake Total 1690 / 1740 240 / 240 Balance 1690 / 1740 240 / 240 Medical Necessity - Tobacco Use Smoking Status: Never smoker Assessment/Plan All Active Problems (Last Reviewed 04/22/18 @ 09:38 by Brittani Qureshi) Atrial fibrillation and flutter (Acute) History of cardiac radiofrequency ablation (Resolved) Double vision (Resolved) This is a 48 years old male patient admitted for chest pain for evaluation and he has been having recurrent chest pain. #1 chest pain/recurrent: Attributed to paroxysmal A. fib and flutter versus GI etiology. Unlikely to be cardiac chest pain. His EKG reveals no evidence of acute ischemic changes. Troponin negative ?3. Chest x-ray showed no acute findings. Routine blood work was unremarkable. Recently, he had extensive noninvasive and invasive cardiac workup. On April 07, 2018, he had cardiac catheterization that revealed normal coronary arteries with normal LV size and function as well as normal ejection fraction. He had stress test on March 20, 2018 that showed no evidence of stress-induced myocardial ischemia. Cardiology consulted, stated no indication for further cardiac workup. flecainide was discontinued and patient was started on sotalol. Repeat EKG from today revealed normal sinus rhythm, rate is controlled, QTC is 440 ms. Plan to continue same treatment, continue stable, EKG tomorrow morning. #2 paroxysmal A. fib/flutter: He has been in sinus rhythm, rate is controlled. He is on Coreg and sotalol for rate control. He is on Eliquis for anticoagulation. EKG reviewed as above, QTC is 441 ms. Plan as above. #3 hypertension: Blood pressure stable, continue Norvasc, Coreg and lisinopril. #4 hyperlipidemia: Continue statins. #5 thoracic aortic aneurysm: Without rupture, stable. #6 GERD: Continue Protonix. #7 depression: Continue Lexapro. #8 DVT prophylaxis: Continue Eliquis. This note was generated with [employer] dictation software. It may contain incorrect words, spelling, and punctuation that were not noted in checking the note before signing. Code Visit Inpatient E&M: 48145 Subs Hosp L2
[2018-05-17] MEDS: oxyCODONE 5 MG Tablet PO ×3 (07:57→22:28)
[2018-05-17] MEDS: Aspirin E.C. 81 MG Tablet PO (07:58)
[2018-05-17] MEDS: Sotalol Hydrochloride 80 MG Tablet 120 MG PO ×2 (09:15→21:10)
[2018-05-17] MEDS: APIXABAN 5 MG TABLET PO ×2 (09:15→21:11)
[2018-05-17] MEDS: Carvedilol 25 MG Tablet PO (09:15)
[2018-05-17] MEDS: Furosemide 40 MG Tablet PO (09:16)
[2018-05-17] MEDS: Tamsulosin HCl 0.4 MG Capsule PO (09:16)
[2018-05-17] MEDS: Escitalopram Oxalate 10 MG Tablet 15 MG PO (09:16)
[2018-05-17] MEDS: Acetaminophen 500 MG Tablet 1000 MG PO (09:17)
[2018-05-17] MEDS: amLODIPine 5 MG Tablet PO (09:17)
[2018-05-17] MEDS: Lisinopril 20 MG Tablet PO ×2 (09:17→21:11)
[2018-05-17] MEDS: Pantoprazole Sodium 40 MG Tablet PO (09:17)
--- NOTE | 2018-05-17 10:20 | EKG12_ITS ---
Test Reason : MED Blood Pressure : / mmHG Vent. Rate : 070 BPM Atrial Rate : 070 BPM P-R Int : 168 ms QRS Dur : 092 ms QT Int : 406 ms P-R-T Axes : 008 012 009 degrees QTc Int : 438 ms Normal sinus rhythm Normal ECG Confirmed by INDER CONNOR, ASAEL ([id number]), newspaper managing editor RICCO LUZ ([id number] on 05/23/2018 8:24:47 AM Referred By: INDER Confirmed By:ASAEL LOVING MD
[2018-05-17] MEDS: Meclizine 12.5 MG Tablet PO (12:22)
--- NOTE | 2018-05-17 12:38 | PN.CARD_ITS ---
Subjectve: The patient appears without acute cardiovascular symptoms. He has had waxing and waning chronic atypical chest discomfort. During this time he has remained in sinus rhythm and without any acute changes on his electrocardiogram. He also states he has dizziness but admits that that is chronic. He has a vertigo component to it. Has undergone ENT evaluation for this in the past. He has been on medication with meclizine in the past. Objective: Vital Signs Temp Pulse Resp BP Pulse Ox 96.7 F L 61 18 106/63 97 05/17/18 11:52 05/17/18 11:52 05/17/18 11:52 05/17/18 11:52 05/17/18 11:52 Oxygen Delivery Method Room Air Intake and Output for Last 24 Hours 05/15/18 05/16/18 05/17/18 23:59 23:59 23:59 Intake Total 1690 / 1740 600 / 600 Balance 1690 / 1740 600 / 600 General: Awake, Alert, Oriented x 3, Cooperative, No Acute Distress Neck: No JVD Lungs: Clear to auscultation Cardiovascular: Regular Rhythm, Normal S1, Normal S2 Abdomen: Bowel Sounds Present, Soft, Non Tender Extremities: No edema Rhythm: Sinus rhythm EKG: Sinus rhythm; no acute QT/QTc changes Medical Necessity - Tobacco Use Smoking Status: Never smoker Assessment/Plan 1. Chest pain The patient has had waxing and waning chronic atypical chest discomfort. His cardiac enzymes have remained negative. His follow-up ECGs have demonstrated no acute changes. This is superimposed upon his recent noninvasive and invasive evaluation suggesting overall preserved LV systolic function and no coronary artery disease. Also, there is notation he has had discomfort when he has been in sinus rhythm. Thus his discomfort cannot be totally attributed to his atrial dysrhythmia. He should be considered for noncardiovascular evaluation of his discomfort. 2. Paroxysmal atrial fibrillation/flutter At the present time he is undergone extensive evaluation as previously noted. He will continue his medical therapy which does include rate control therapy and antiarrhythmic therapy and anticoagulant therapy. He is continuing medical management at this time. This has included alteration in his medications to include sotalol therapy. Thus far he appears to be doing well on this without any obvious adverse event or proarrhythmic event. He will continue to be monitored. 3. Thoracic aortic aneurysm without rupture He has recently undergone evaluation for this as noted above. He will continue to be followed as an outpatient. 4. Hyperlipidemia The patient will continue lipid-lowering therapy as deemed appropriate. 5. Hypertension The patient will continue antihypertensive therapy. Hopefully this will help with respect to his atrial dysrhythmias and associated symptoms. Comment: The above was discussed and reviewed with the patient and his spouse. They were both agreeable to this approach. This note was generated with [employer] dictation software. It may contain incorrect words, spelling, and punctuation that were not noted in checking the note before signing.
[2018-05-17] MEDS: Gabapentin 100 MG Capsule PO (21:11)
[2018-05-17] MEDS: Atorvastatin Calcium 20 MG Tablet PO (21:11)
--- NOTE | 2018-05-17 22:15 | EKG12_ITS ---
Test Reason : 1 HR POST MED Blood Pressure : / mmHG Vent. Rate : 066 BPM Atrial Rate : 066 BPM P-R Int : 172 ms QRS Dur : 090 ms QT Int : 404 ms P-R-T Axes : 009 014 017 degrees QTc Int : 423 ms Normal sinus rhythm Normal ECG Confirmed by INDER CONNOR, ASAEL ([id number]), acquisition editor RICCO LUZ ([id number] on 05/23/2018 8:22:15 AM Referred By: DR LOVING Confirmed By:ASAEL LOVING MD
[2018-05-18] VITALS (7 sets, daily range): BP systolic 102–121; BP diastolic 63–80; PULSE 64–80; RESP 16; TEMP 36.7–36.9; O2SAT 97–98
[2018-05-18] MEDS: oxyCODONE 5 MG Tablet PO ×2 (06:13→12:36)
--- NOTE | 2018-05-18 08:10 | PCM.PROGNOTE ---
Patient Problems: Active and Suspected Problems (Last Reviewed 04/22/18 @ 09:38 by Brittani Qureshi) Atrial fibrillation and flutter (Acute) Subjective: Chief complaint: Follow-up after admission for recurrent chest pain/discomfort, symptoms could be due to paroxysmal A. fib/flutter, started on sotalol. Patient seen and examined. No acute events overnight. Today, is feeling better. His vital signs are stable. He remained in sinus rhythm. - Physical Exam General: Alert, Oriented x3, Cooperative, No apparent distress HEENT: Atraumatic, PERRLA, EOMI, Normocephalic Oral: Moist Mucosa, No Gingival or Mucosal Lesions/ Ulcerations Neck: Supple, No JVD, Negative Carotid Bruits, Trachea Midline, Thyroid Normal Size and Texture Lungs: Clear to auscultation, No rhonchi, No wheeze, No rales, Diminished Cardiovascular: Regular rate, Regular Rhythm, Normal S1, Normal S2, PMI Normal Abdomen: Bowel Sounds Present, Soft, Non Tender, Non-Distended, No Hepato-splenomegaly Extremities: No clubbing, No cyanosis, No edema Skin: No rashes, No breakdown Lymphatic: No Cervical, Supraclavicular, or Inguinal Adenopathy Neurological: Cranial nerves II-XII grossly intact, Neuro grossly intact Psych/Mental Status: Normal Affect, Appropriate, Alert and oriented to time, place, person, mood and affect Vital Signs Temp Pulse Resp BP Pulse Ox 98.4 F 71 16 102/63 98 05/18/18 05:50 05/18/18 06:54 05/18/18 05:50 05/18/18 05:50 05/18/18 05:50 Oxygen Delivery Method Room Air Orthostatic Vital Signs Start: 05/17/18 23:59 Freq: q24h Status: Active Protocol: Activity Type Activity Date Activity User E-Sign Co-Sign Detail Recorded Client Recorded Date Recorded By Document 05/17/18 23:59 [facility] [id number] 05/17/18 23:59 AML 05/17/18 23:59 Orthostatic Vitals Standing -Blood Pressure (90/60-120/80) 121/86 H -Extremity Use Right Arm -Pulse Rate (60-100) 73 Sitting -Blood Pressure (90/60-120/80) 120/82 H -Extremity Use Right Arm -Pulse Rate (60-100) 67 Lying -Blood Pressure (90/60-120/80) 111/68 -Extremity Use Right Arm -Pulse Rate (60-100) 63 Intake and Output for Last 24 Hours 05/16/18 05/17/18 05/18/18 23:59 23:59 23:59 Intake Total 1690 / 1740 960 / 960 320 / 320 Balance 1690 / 1740 960 / 960 320 / 320 Medical Necessity - Tobacco Use Smoking Status: Never smoker Assessment/Plan All Active Problems (Last Reviewed 04/22/18 @ 09:38 by Brittani Qureshi) Atrial fibrillation and flutter (Acute) History of cardiac radiofrequency ablation (Resolved) Double vision (Resolved) This is a 48 years old male patient admitted for chest pain for evaluation and he has been having recurrent chest pain. #1 chest pain/recurrent: Attributed to paroxysmal A. fib and flutter versus GI etiology. Unlikely to be cardiac chest pain. Repeat EKG from yesterday showed no acute ischemic changes, QTC was normal. Troponin negative ?3. Chest x-ray showed no acute findings. Recently, he had extensive noninvasive and invasive cardiac workup. On April 07, 2018, he had cardiac catheterization that revealed normal coronary arteries with normal LV size and function as well as normal ejection fraction. He had stress test on March 20, 2018 that showed no evidence of stress-induced myocardial ischemia. Cardiology consulted, stated no indication for further cardiac workup. flecainide was discontinued and patient was started on sotalol. Plan for possible DC home today. #2 paroxysmal A. fib/flutter: He has been in sinus rhythm, rate is controlled. He is on Coreg and sotalol for rate control. He is on Eliquis for anticoagulation. Patient is due for the fifth dose of sotalol at 10 AM this morning at which time an EKG will be done and reviewed. Patient may be able to go home today. #3 hypertension: Blood pressure stable, continue Norvasc, Coreg and lisinopril. #4 hyperlipidemia: Continue statins. #5 thoracic aortic aneurysm: Without rupture, stable. #6 GERD: Continue Protonix. #7 depression: Continue Lexapro. #8 DVT prophylaxis: Continue Eliquis. This note was generated with [employer] software. It may contain incorrect words, spelling, and punctuation that were not noted in checking the note before signing.
--- NOTE | 2018-05-18 08:14 | PN_ITS ---
Patient Problems: Active and Suspected Problems (Last Reviewed 04/22/18 @ 09:38 by Brittani Qureshi) Atrial fibrillation and flutter (Acute) Subjective: Chief complaint: Follow-up after admission for recurrent chest pain/discomfort, symptoms could be due to paroxysmal A. fib/flutter, started on sotalol. Patient seen and examined. No acute events overnight. Today, is feeling better. His vital signs are stable. He remained in sinus rhythm. - Physical Exam General: Alert, Oriented x3, Cooperative, No apparent distress HEENT: Atraumatic, PERRLA, EOMI, Normocephalic Oral: Moist Mucosa, No Gingival or Mucosal Lesions/ Ulcerations Neck: Supple, No JVD, Negative Carotid Bruits, Trachea Midline, Thyroid Normal Size and Texture Lungs: Clear to auscultation, No rhonchi, No wheeze, No rales, Diminished Cardiovascular: Regular rate, Regular Rhythm, Normal S1, Normal S2, PMI Normal Abdomen: Bowel Sounds Present, Soft, Non Tender, Non-Distended, No Hepato- splenomegaly Extremities: No clubbing, No cyanosis, No edema Skin: No rashes, No breakdown Lymphatic: No Cervical, Supraclavicular, or Inguinal Adenopathy Neurological: Cranial nerves II-XII grossly intact, Neuro grossly intact Psych/Mental Status: Normal Affect, Appropriate, Alert and oriented to time, place, person, mood and affect Vital Signs Temp Pulse Resp BP Pulse Ox 98.4 F 71 16 102/63 98 05/18/18 05:50 05/18/18 06:54 05/18/18 05:50 05/18/18 05:50 05/18/18 05:50 Oxygen Delivery Method Room Air Orthostatic Vital Signs Start: 05/17/18 23:59 Freq: q24h Status: Active Protocol: Activity Type Activity Date Activity User E-Sign Co-Sign Detail Recorded Client Recorded Date Recorded By Document 05/17/18 23:59 [facility] [id number] 05/17/18 23:59 AML 05/17/18 23:59 Orthostatic Vitals Standing -Blood Pressure (90/60-120/80) 121/86 H -Extremity Use Right Arm -Pulse Rate (60-100) 73 Sitting -Blood Pressure (90/60-120/80) 120/82 H -Extremity Use Right Arm -Pulse Rate (60-100) 67 Lying -Blood Pressure (90/60-120/80) 111/68 -Extremity Use Right Arm -Pulse Rate (60-100) 63 Intake and Output for Last 24 Hours 05/16/18 05/17/18 05/18/18 23:59 23:59 23:59 Intake Total 1690 / 1740 960 / 960 320 / 320 Balance 1690 / 1740 960 / 960 320 / 320 Medical Necessity - Tobacco Use Smoking Status: Never smoker Assessment/Plan All Active Problems (Last Reviewed 04/22/18 @ 09:38 by Brittani Qureshi) Atrial fibrillation and flutter (Acute) History of cardiac radiofrequency ablation (Resolved) Double vision (Resolved) This is a 48 years old male patient admitted for chest pain for evaluation and he has been having recurrent chest pain. #1 chest pain/recurrent: Attributed to paroxysmal A. fib and flutter versus GI etiology. Unlikely to be cardiac chest pain. Repeat EKG from yesterday showed no acute ischemic changes, QTC was normal. Troponin negative ?3. Chest x-ray showed no acute findings. Recently, he had extensive noninvasive and invasive cardiac workup. On April 07, 2018, he had cardiac catheterization that revealed normal coronary arteries with normal LV size and function as well as normal ejection fraction. He had stress test on March 20, 2018 that showed no evidence of stress-induced myocardial ischemia. Cardiology consulted, stated no indication for further cardiac workup. flecainide was discontinued and patient was started on sotalol. Plan for possible DC home today. #2 paroxysmal A. fib/flutter: He has been in sinus rhythm, rate is controlled. He is on Coreg and sotalol for rate control. He is on Eliquis for anticoagulation. Patient is due for the fifth dose of sotalol at 10 AM this morning at which time an EKG will be done and reviewed. Patient may be able to go home today. #3 hypertension: Blood pressure stable, continue Norvasc, Coreg and lisinopril. #4 hyperlipidemia: Continue statins. #5 thoracic aortic aneurysm: Without rupture, stable. #6 GERD: Continue Protonix. #7 depression: Continue Lexapro. #8 DVT prophylaxis: Continue Eliquis. This note was generated with [employer] software. It may contain incorrect words, spelling, and punctuation that were not noted in checking the note before signing.
[2018-05-18] MEDS: Aspirin E.C. 81 MG Tablet PO (09:01)
[2018-05-18] MEDS: Pantoprazole Sodium 40 MG Tablet PO (09:13)
[2018-05-18] MEDS: Meclizine 12.5 MG Tablet PO (09:13)
[2018-05-18] MEDS: Acetaminophen 500 MG Tablet 1000 MG PO (09:13)
[2018-05-18] MEDS: Escitalopram Oxalate 10 MG Tablet 15 MG PO (09:13)
[2018-05-18] MEDS: amLODIPine 5 MG Tablet PO (09:13)
[2018-05-18] MEDS: Lisinopril 20 MG Tablet PO (09:13)
[2018-05-18] MEDS: Furosemide 40 MG Tablet PO (09:14)
[2018-05-18] MEDS: Sotalol Hydrochloride 80 MG Tablet 120 MG PO (09:14)
[2018-05-18] MEDS: APIXABAN 5 MG TABLET PO (09:14)
[2018-05-18] MEDS: Tamsulosin HCl 0.4 MG Capsule PO (09:14)
[2018-05-18] MEDS: Ondansetron 4 MG/2 ML Vial IV (10:13)
[2018-05-18] MEDS: 0.9% NaCl Peripheral Flush Adult/Peds IV (10:13)
--- NOTE | 2018-05-18 10:14 | EKG12_ITS ---
Test Reason : MEDICATION Blood Pressure : / mmHG Vent. Rate : 074 BPM Atrial Rate : 074 BPM P-R Int : 174 ms QRS Dur : 086 ms QT Int : 384 ms P-R-T Axes : 012 009 009 degrees QTc Int : 426 ms Normal sinus rhythm Normal ECG Confirmed by INDER CONNOR, ASAEL ([id number]), fashion artist RICCO LUZ ([id number]) on 05/23/2018 8:21:09 AM Referred By: MARBELLA Confirmed By:ASAEL LOVING MD
--- NOTE | 2018-05-18 14:03 | PCM.DC ---
- Discharge Diagnoses Current Active Problems: Current Active and Chronic Problems (Last Reviewed 04/22/18 @ 09:38 by Brittani Qureshi) Atrial fibrillation and flutter (Acute) You will use the following diet at home:: Cardiac Your food should be the consistency of: Regular Discharge Activity: Return to Normal Activity Weight Bearing Status: Full weight bearing Call your doctor if you observe: Fever of 101 or Higher, Shortness of breath, Dizziness, Fainting spells, Chest pain, Increased palpitations (irregular heartbeat), Uncontrolled pain Allergies/Adverse Reactions: Allergies clonidine Allergy (Intermediate, Verified 05/15/18 18:41) rash levofloxacin [From Levaquin] Allergy (Verified 05/15/18 18:41) Rash Penicillins Allergy (Verified 05/15/18 18:41) Hives bupropion Adverse Reaction (Intermediate, Verified 05/15/18 18:41) vomiting celecoxib [From Celebrex] Adverse Reaction (Intermediate, Verified 05/15/18 18:41) vomiting eletriptan Adverse Reaction (Intermediate, Verified 05/15/18 18:41) Vomiting topiramate [From Topamax] Adverse Reaction (Intermediate, Verified 05/15/18 18:41) vomiting hydrocodone bitartrate [From Vicodin] Adverse Reaction (Verified 05/15/18 18:41) Nausea Medications to take at Discharge Pantoprazole Sodium [Protonix] 40 mg PO DAILY 04/22/16 Albuterol Inhaler [Ventolin Hfa] 1 - 2 puff INHALATION Q4H PRN PRN #1 inhaler 07/15/17 Apixaban [Eliquis] 5 mg PO BID 09/21/17 meclizine 12.5 mg tablet 12.5 mg PO QODAY PRN #30 tab 01/14/18 amlodipine 5 mg tablet 5 mg PO DAILY #90 tab 02/26/18 Furosemide 40 mg PO QDAY 03/20/18 Aspirin [Aspir-Low] 81 mg PO QDAY 04/09/18 Tamsulosin HCl [Flomax] 0.4 mg PO QDAY 04/09/18 lisinopril 20 mg tablet 20 mg PO BID #60 tab 04/18/18 atorvastatin 20 mg tablet 20 mg PO QDAY #90 tab 04/28/18 escitalopram 10 mg tablet 15 mg PO QDAY #90 tab 04/28/18 gabapentin 100 mg capsule 100 mg PO QHS #90 cap 05/01/18 Oxycodone HCl/Acetaminophen [Percocet 5-325] 1 tablet PO Q6H PRN PRN 5 Days #20 tablet 05/07/18 Sotalol Hydrochloride [Betapace (Beta Linda)] 120 mg PO BID #90 tab 05/18/18 The following prescriptions were given: Sotalol Hydrochloride [Betapace (Beta Linda)] 120 mg PO BID #90 tab Primary Care Physician: Kristyn Bearden MD [Primary Care Provider] - Please follow up with your Primary Care Physician in: 1 week. Test Results: Test results from this visit will be discussed in further detail at your follow-up appointment, if applicable. Please Follow Up With: Freddy Hale MD When: call his office.
--- NOTE | 2018-05-18 14:23 | PCM.PN.CARD ---
Subjectve: The patient is awake and alert. He has noted his chronic left-sided chest discomfort, chronic dizziness, as well as concerns of abdominal discomfort/cramping. He states that he has been requesting pain medication and has received anti-inflammatory therapy with Tylenol as well as antiemetic therapy. Objective: Vital Signs Temp Pulse Resp BP Pulse Ox 98.0 F 64 16 120/73 98 05/18/18 09:07 05/18/18 10:54 05/18/18 09:07 05/18/18 09:07 05/18/18 09:07 Oxygen Delivery Method Room Air Orthostatic Vital Signs Start: 05/17/18 23:59 Freq: q24h Status: Active Protocol: Activity Type Activity Date Activity User E-Sign Co-Sign Detail Recorded Client Recorded Date Recorded By Document 05/17/18 23:59 AML [id number] 05/17/18 23:59 AML 05/17/18 23:59 Orthostatic Vitals Standing -Blood Pressure (90/60-120/80) 121/86 H -Extremity Use Right Arm -Pulse Rate (60-100) 73 Sitting -Blood Pressure (90/60-120/80) 120/82 H -Extremity Use Right Arm -Pulse Rate (60-100) 67 Lying -Blood Pressure (90/60-120/80) 111/68 -Extremity Use Right Arm -Pulse Rate (60-100) 63 Intake and Output for Last 24 Hours 05/16/18 05/17/18 05/18/18 23:59 23:59 23:59 Intake Total 1690 / 1740 960 / 960 800 / 800 Balance 1690 / 1740 960 / 960 800 / 800 General: Awake, Alert, Oriented x 3 Neck: No JVD Lungs: Clear to auscultation Cardiovascular: Regular Rhythm, Normal S1, Normal S2 Abdomen: Bowel Sounds Present, Soft Extremities: No edema Rhythm: Sinus rhythm EKG: Sinus rhythm; no acute ECG changes Medical Necessity - Tobacco Use Smoking Status: Never smoker Assessment/Plan 1. Chest pain The patient has had waxing and waning chronic atypical chest discomfort. His cardiac enzymes have remained negative. His follow-up ECGs have demonstrated no acute changes. This is superimposed upon his recent noninvasive and invasive evaluation suggesting overall preserved LV systolic function and no coronary artery disease. Also, there is notation he has had discomfort when he has been in sinus rhythm. Thus his discomfort cannot be totally attributed to his atrial dysrhythmia. He should be considered for noncardiovascular evaluation of his discomfort. 2. Paroxysmal atrial fibrillation/flutter At the present time he is undergone extensive evaluation as previously noted. He is continuing medical management at this time. This has included alteration in his medications to include sotalol therapy. Thus far he appears to be doing well on this without any obvious adverse event or proarrhythmic event. He has also continued his anticoagulant therapy. 3. Thoracic aortic aneurysm without rupture He has recently undergone evaluation for this as noted above. He will continue to be followed as an outpatient. 4. Hyperlipidemia The patient will continue lipid-lowering therapy as deemed appropriate. 5. Hypertension The patient will continue antihypertensive therapy. Hopefully this will help with respect to his atrial dysrhythmias and associated symptoms. Overall, from a cardiovascular standpoint, the patient appears to have done well on his transition of his antiarrhythmic therapy. He has remained, with respect to his cardiac rhythm, in sinus rhythm without obvious proarrhythmic events or adverse elective cardiographic findings. 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 In the interim the patient has chronic chest discomfort and dizziness as well as concerns of intermittent abdominal discomfort/cramping. He reportedly has been requesting pain medications in the way of narcotic medications. His case has been discussed with Dr. Alberto. He is concerned, after review of the patient's extensive evaluation and care at not only [facility] but outside medical centers that the patient has not demonstrated any obvious other objective findings requiring additional evaluation care and may be seeking pain medications. Thus he did not feel the patient needed to remain in the hospital for additional noncardiovascular evaluation or care at this time. This note was generated with [employer] dictation software. It may contain incorrect words, spelling, and punctuation that were not noted in checking the note before signing.
--- NOTE | 2018-05-18 14:28 | PN.CARD_ITS ---
Subjectve: The patient is awake and alert. He has noted his chronic left-sided chest discomfort, chronic dizziness, as well as concerns of abdominal discomfort/ cramping. He states that he has been requesting pain medication and has received anti-inflammatory therapy with Tylenol as well as antiemetic therapy. Objective: Vital Signs Temp Pulse Resp BP Pulse Ox 98.0 F 64 16 120/73 98 05/18/18 09:07 05/18/18 10:54 05/18/18 09:07 05/18/18 09:07 05/18/18 09:07 Oxygen Delivery Method Room Air Orthostatic Vital Signs Start: 05/17/18 23:59 Freq: q24h Status: Active Protocol: Activity Type Activity Date Activity User E-Sign Co-Sign Detail Recorded Client Recorded Date Recorded By Document 05/17/18 23:59 AML [id number] 05/17/18 23:59 AML 05/17/18 23:59 Orthostatic Vitals Standing -Blood Pressure (90/60-120/80) 121/86 H -Extremity Use Right Arm -Pulse Rate (60-100) 73 Sitting -Blood Pressure (90/60-120/80) 120/82 H -Extremity Use Right Arm -Pulse Rate (60-100) 67 Lying -Blood Pressure (90/60-120/80) 111/68 -Extremity Use Right Arm -Pulse Rate (60-100) 63 Intake and Output for Last 24 Hours 05/16/18 05/17/18 05/18/18 23:59 23:59 23:59 Intake Total 1690 / 1740 960 / 960 800 / 800 Balance 1690 / 1740 960 / 960 800 / 800 General: Awake, Alert, Oriented x 3 Neck: No JVD Lungs: Clear to auscultation Cardiovascular: Regular Rhythm, Normal S1, Normal S2 Abdomen: Bowel Sounds Present, Soft Extremities: No edema Rhythm: Sinus rhythm EKG: Sinus rhythm; no acute ECG changes Medical Necessity - Tobacco Use Smoking Status: Never smoker Assessment/Plan 1. Chest pain The patient has had waxing and waning chronic atypical chest discomfort. His cardiac enzymes have remained negative. His follow-up ECGs have demonstrated no acute changes. This is superimposed upon his recent noninvasive and invasive evaluation suggesting overall preserved LV systolic function and no coronary artery disease. Also, there is notation he has had discomfort when he has been in sinus rhythm. Thus his discomfort cannot be totally attributed to his atrial dysrhythmia. He should be considered for noncardiovascular evaluation of his discomfort. 2. Paroxysmal atrial fibrillation/flutter At the present time he is undergone extensive evaluation as previously noted. He is continuing medical management at this time. This has included alteration in his medications to include sotalol therapy. Thus far he appears to be doing well on this without any obvious adverse event or proarrhythmic event. He has also continued his anticoagulant therapy. 3. Thoracic aortic aneurysm without rupture He has recently undergone evaluation for this as noted above. He will continue to be followed as an outpatient. 4. Hyperlipidemia The patient will continue lipid-lowering therapy as deemed appropriate. 5. Hypertension The patient will continue antihypertensive therapy. Hopefully this will help with respect to his atrial dysrhythmias and associated symptoms. Overall, from a cardiovascular standpoint, the patient appears to have done well on his transition of his antiarrhythmic therapy. He has remained, with respect to his cardiac rhythm, in sinus rhythm without obvious proarrhythmic events or adverse elective cardiographic findings. At the present time it was felt to the patient would continue his cardiovascular medical therapy and outpatient cardiovascular follow-up with his primary handle maker. In the interim the patient has chronic chest discomfort and dizziness as well as concerns of intermittent abdominal discomfort/cramping. He reportedly has been requesting pain medications in the way of narcotic medications. His case has been discussed with Dr. Alberto. He is concerned, after review of the patient's extensive evaluation and care at not only [facility] but outside medical centers that the patient has not demonstrated any obvious other objective findings requiring additional evaluation care and may be seeking pain medications. Thus he did not feel the patient needed to remain in the hospital for additional noncardiovascular evaluation or care at this time. This note was generated with [employer] dictation software. It may contain incorrect words, spelling, and punctuation that were not noted in checking the note before signing.
--- NOTE | 2018-05-18 17:01 | PCM.DC.SUM ---
Discharge Date and Diagnosis Date of Admission: 05/15/18 Date of Discharge: 05/18/18 - Primary Discharge Diagnosis #1 recurrent chest pain. #2 paroxysmal A. fib/flutter. - Secondary Discharge Diagnosis Chronic Problems (Last Reviewed 04/22/18 @ 09:38 by Brittani Qureshi) SVT (supraventricular tachycardia) (Chronic) LORETTA (obstructive sleep apnea) (Chronic) Atherosclerotic heart disease of [place] coronary artery without angina pectoris (Chronic) History of left heart catheterization (Chronic) 11/09/2016 @ [facility], per Dr. Cory Harley: normal coronaries 04/07/2018 @ [facility] per Dr. Harris: normal coronaries Nephrolithiasis (Chronic) HTN (hypertension) (Chronic) Anxiety (Chronic) PAF (paroxysmal atrial fibrillation) (Chronic) GERD (gastroesophageal reflux disease) (Chronic) Obesity (BMI 30-39.9) (Chronic) BPPV (benign paroxysmal positional vertigo) (Chronic) HLD (hyperlipidemia) (Chronic) Thoracic aortic aneurysm without rupture (Chronic) Hospital Course and Treatment Imaging Results: Clinical Impression(s) from Imaging Studies Chest X-Ray 05/15/18 18:45 IMPRESSION: No acute cardiopulmonary process. Electronically Signed: Sasha Valverde MD at 18:56 EDT Tel , Service support , Dr. Hale, cardiology. Operations: None Procedures: EKG Summary of Care Provided: The patient is a 48 year old M admitted for chest pain for evaluation. Recently, this patient has been admitted multiple times for recurrent chest pain and there was no obvious etiology identified. He underwent extensive cardiac workup recently that was unremarkable. During this admission, his EKG showed no evidence of acute ischemic changes. His troponin was negative ?3. His chest x-ray showed no acute findings. This patient underwent extensive noninvasive and invasive cardiac workup recently. On April 07, 2013, he had cardiac catheterization that revealed normal coronary arteries with normal LV size and function as well as normal ejection fraction. On March 20, 2018 he had nuclear stress test that showed no evidence of stress-induced myocardial ischemia. On April 01, 2018, he had CTA chest that showed no evidence of PE or dissection, revealed dilated ascending aorta and nonspecific left upper lobe punctate nodule. Also, patient has been complaining of recurrent abdominal pain and nausea. On March 21, 2018, he had CT scan abdomen and pelvis without contrast that revealed small right kidney stones, otherwise no acute intra-abdominal pathology. During this admission, has routine blood work was unremarkable. Cardiology consulted and because patient has been on Tikosyn for atrial fibrillation/flutter and there was a concern that the Tikosyn may cause some of her symptoms including chest pain and dizziness. Cardiology decided to stop Tikosyn and patient was started on sotalol. Patient was started on sotalol, monitored closely with serial EKGs and there was no significant QTC prolongation after 4 doses of sotalol. Patient remained in sinus rhythm, heart rate remained stable and his blood pressure remained stable. There was a concern that patient may have drug-seeking behavior as he has been asking constantly for IV pain medication. He complained of dizziness which is also a chronic symptom and he has been on meclizine as outpatient. Patient discharged home in a stable medical condition, discharged on sotalol 100 mg p.o. twice daily, Coreg and Tikosyn discontinued, continued on his other medications including Eliquis, recommended follow-up with PCP in 1 week and follow-up with cardiology according to Dr. Hale recommendation. Discharge Activity: Return to Normal Activity Weight Bearing Status: Full weight bearing Call your doctor if you observe: Fever of 101 or Higher, Shortness of breath, Dizziness, Fainting spells, Chest pain, Increased palpitations (irregular heartbeat), Uncontrolled pain Home Medications: Medications to take at Discharge Pantoprazole Sodium [Protonix] 40 mg PO DAILY 04/22/16 Albuterol Inhaler [Ventolin Hfa] 1 - 2 puff INHALATION Q4H PRN PRN #1 inhaler 07/15/17 Apixaban [Eliquis] 5 mg PO BID 09/21/17 meclizine 12.5 mg tablet 12.5 mg PO QODAY PRN #30 tab 01/14/18 amlodipine 5 mg tablet 5 mg PO DAILY #90 tab 02/26/18 Furosemide 40 mg PO QDAY 03/20/18 Aspirin [Aspir-Low] 81 mg PO QDAY 04/09/18 Tamsulosin HCl [Flomax] 0.4 mg PO QDAY 04/09/18 lisinopril 20 mg tablet 20 mg PO BID #60 tab 04/18/18 atorvastatin 20 mg tablet 20 mg PO QDAY #90 tab 04/28/18 escitalopram 10 mg tablet 15 mg PO QDAY #90 tab 04/28/18 gabapentin 100 mg capsule 100 mg PO QHS #90 cap 05/01/18 Oxycodone HCl/Acetaminophen [Percocet 5-325] 1 tablet PO Q6H PRN PRN 5 Days #20 tablet 05/07/18 Sotalol Hydrochloride [Betapace (Beta Linda)] 120 mg PO BID #90 tab 05/18/18 Following Prescrptions Were Given to Patient: Sotalol Hydrochloride [Betapace (Beta Linda)] 120 mg PO BID #90 tab Primary Care Physician: Kristyn Bearden MD [Primary Care Provider] - Please follow up with your Primary Care Physician in: 1 week. Please Follow Up With: Freddy Hale MD When: call his office. Disposition: Home Minutes spent on discharge:: 32 Patient Condition:: Stable Medical Necessity - Tobacco Use Smoking Status: Never smoker Meaningful Use Info Meaningful Use Diagnoses (Choose all that apply): None applicable Code Visit Inpatient E&M: 32555 Disch Hosp
--- NOTE | 2018-05-18 17:10 | DS.PCM_ITS ---
Discharge Date and Diagnosis Date of Admission: 05/15/18 Date of Discharge: 05/18/18 - Primary Discharge Diagnosis #1 recurrent chest pain. #2 paroxysmal A. fib/flutter. - Secondary Discharge Diagnosis Chronic Problems (Last Reviewed 04/22/18 @ 09:38 by Brittani Qureshi) SVT (supraventricular tachycardia) (Chronic) LORETTA (obstructive sleep apnea) (Chronic) Atherosclerotic heart disease of [place] coronary artery without angina pectoris (Chronic) History of left heart catheterization (Chronic) 11/09/2016 @ [facility], per Dr. Cory Harley: normal coronaries 04/07/2018 @ [facility] per Dr. Harris: normal coronaries Nephrolithiasis (Chronic) HTN (hypertension) (Chronic) Anxiety (Chronic) PAF (paroxysmal atrial fibrillation) (Chronic) GERD (gastroesophageal reflux disease) (Chronic) Obesity (BMI 30-39.9) (Chronic) BPPV (benign paroxysmal positional vertigo) (Chronic) HLD (hyperlipidemia) (Chronic) Thoracic aortic aneurysm without rupture (Chronic) Hospital Course and Treatment Imaging Results: Clinical Impression(s) from Imaging Studies Chest X-Ray 05/15/18 18:45 IMPRESSION: No acute cardiopulmonary process. Electronically Signed: Sasha Valverde MD at 18:56 EDT Tel , Service support , Dr. Hale, cardiology. Operations: None Procedures: EKG Summary of Care Provided: The patient is a 48 year old M admitted for chest pain for evaluation. Recently , this patient has been admitted multiple times for recurrent chest pain and there was no obvious etiology identified. He underwent extensive cardiac workup recently that was unremarkable. During this admission, his EKG showed no evidence of acute ischemic changes. His troponin was negative ?3. His chest x-ray showed no acute findings. This patient underwent extensive noninvasive and invasive cardiac workup recently. On April 07, 2013, he had cardiac catheterization that revealed normal coronary arteries with normal LV size and function as well as normal ejection fraction. On March 20, 2018 he had nuclear stress test that showed no evidence of stress-induced myocardial ischemia. On April 01, 2018, he had CTA chest that showed no evidence of PE or dissection, revealed dilated ascending aorta and nonspecific left upper lobe punctate nodule. Also, patient has been complaining of recurrent abdominal pain and nausea. On March 21, 2018, he had CT scan abdomen and pelvis without contrast that revealed small right kidney stones, otherwise no acute intra- abdominal pathology. During this admission, has routine blood work was unremarkable. Cardiology consulted and because patient has been on Tikosyn for atrial fibrillation/flutter and there was a concern that the Tikosyn may cause some of her symptoms including chest pain and dizziness. Cardiology decided to stop Tikosyn and patient was started on sotalol. Patient was started on sotalol , monitored closely with serial EKGs and there was no significant QTC prolongation after 4 doses of sotalol. Patient remained in sinus rhythm, heart rate remained stable and his blood pressure remained stable. There was a concern that patient may have drug-seeking behavior as he has been asking constantly for IV pain medication. He complained of dizziness which is also a chronic symptom and he has been on meclizine as outpatient. Patient discharged home in a stable medical condition, discharged on sotalol 100 mg p.o. twice daily, Coreg and Tikosyn discontinued, continued on his other medications including Eliquis, recommended follow-up with PCP in 1 week and follow-up with cardiology according to Dr. Hale recommendation. Discharge Activity: Return to Normal Activity Weight Bearing Status: Full weight bearing Call your doctor if you observe: Fever of 101 or Higher, Shortness of breath, Dizziness, Fainting spells, Chest pain, Increased palpitations (irregular heartbeat), Uncontrolled pain Home Medications: Medications to take at Discharge Pantoprazole Sodium [Protonix] 40 mg PO DAILY 04/22/16 Albuterol Inhaler [Ventolin Hfa] 1 - 2 puff INHALATION Q4H PRN PRN #1 inhaler Apixaban [Eliquis] 5 mg PO BID 09/21/17 meclizine 12.5 mg tablet 12.5 mg PO QODAY PRN #30 tab 01/14/18 amlodipine 5 mg tablet 5 mg PO DAILY #90 tab 02/26/18 Furosemide 40 mg PO QDAY 03/20/18 Aspirin [Aspir-Low] 81 mg PO QDAY 04/09/18 Tamsulosin HCl [Flomax] 0.4 mg PO QDAY 04/09/18 lisinopril 20 mg tablet 20 mg PO BID #60 tab 04/18/18 atorvastatin 20 mg tablet 20 mg PO QDAY #90 tab 04/28/18 escitalopram 10 mg tablet 15 mg PO QDAY #90 tab 04/28/18 gabapentin 100 mg capsule 100 mg PO QHS #90 cap 05/01/18 Oxycodone HCl/Acetaminophen [Percocet 5-325] 1 tablet PO Q6H PRN PRN 5 Days #20 tablet 05/07/18 Sotalol Hydrochloride [Betapace (Beta Linda)] 120 mg PO BID #90 tab 05/18/18 Following Prescrptions Were Given to Patient: Sotalol Hydrochloride [Betapace (Beta Linda)] 120 mg PO BID #90 tab Primary Care Physician: Kristyn Bearden MD [Primary Care Provider] - Please follow up with your Primary Care Physician in: 1 week. Please Follow Up With: Freddy Hale MD When: call his office. Disposition: Home Minutes spent on discharge:: 32 Patient Condition:: Stable Medical Necessity - Tobacco Use Smoking Status: Never smoker Meaningful Use Info Meaningful Use Diagnoses (Choose all that apply): None applicable Code Visit Inpatient E&M: 60366 Disch Hosp
--- NOTE | 2018-05-19 16:37 | CASEMGMT ---
RN CM Discharge Follow-up Phone Call: RAVI: Melody Strata: 4 Call Date: 05/19/18 Discharge Date: 05/18/18 Time of Call: 1630 Duration: 0 ~ Admitting Diagnosis: Atrial fibrillation/chest pain Phone call attempted by this RN CM. No answer received. Voice message left requesting a return call if pt has questions or concerns. Lia Hare RN
== END 2018-05-18 15:34 | disposition home or self-care (01) | DRG 313 ==
LOC: ED 19:36 → PCU 21:39
PROVIDERS: Admitting Provider Hospitalist; Emergency Provider Emergency Medicine; Family Provider Internal Medicine; PCP Internal Medicine; Visit Provider Hospitalist
DX: R07.89 Other chest pain (principal); I48.92 Unspecified atrial flutter; I47.1 Supraventricular tachycardia; I48.0 Paroxysmal atrial fibrillation; I25.10 Atherosclerotic heart disease of native coronary artery without angina pectoris; I25.2 Old myocardial infarction; I10 Essential (primary) hypertension; E78.5 Hyperlipidemia, unspecified; I71.2 Thoracic aortic aneurysm, without rupture; K21.9 Gastro-esophageal reflux disease without esophagitis; F32.9 Major depressive disorder, single episode, unspecified; F41.9 Anxiety disorder, unspecified; N20.0 Calculus of kidney; G47.33 Obstructive sleep apnea (adult) (pediatric); E66.9 Obesity, unspecified; Z68.33 Body mass index [BMI] 33.0-33.9, adult; H81.10 Benign paroxysmal vertigo, unspecified ear; Z79.82 Long term (current) use of aspirin; Z79.01 Long term (current) use of anticoagulants; Z79.899 Other long term (current) drug therapy
CPT/HCPCS: 36415; 71045; 80048; 83880; 84484; 85025; 85027; 85610; 85730; 93005; 99283; A4216; J2405

== ENCOUNTER 2018-05-20 20:43 | Emergency (ER) | payer MEDICARE, SELFPAY ==
[2018-05-20 20:43] VITALS: BP 137/104; PULSE 117; RESP 16; TEMP 36.9; O2SAT 99; BMI 33.5
[2018-05-20 20:59] VITALS: BP 156/109; PULSE 109; RESP 28; O2SAT 100
--- NOTE | 2018-05-20 21:37 | EKG12_ITS ---
Test Reason : CP Blood Pressure : / mmHG Vent. Rate : 111 BPM Atrial Rate : 111 BPM P-R Int : 166 ms QRS Dur : 078 ms QT Int : 328 ms P-R-T Axes : 014 009 -02 degrees QTc Int : 446 ms Sinus tachycardia Otherwise normal ECG Confirmed by INDER CONNOR, ASAEL ([id number]), editor in chief RICCO LUZ ([id number] on 05/22/2018 11:50:40 AM Referred By: CANDACE Confirmed By:ASAEL LOVING MD
--- NOTE | 2018-05-20 21:42 | RAD_ITS ---
STUDY: X-RAY CHEST REASON FOR EXAM: Male, 48 years old. Chest pain and palpitations, history of A. fib TECHNIQUE: Single AP portable view of the chest. COMPARISON: Prior study of 05/15/2018 FINDINGS: gambling monitor leads are present. The lungs are clear and expanded. There is no demonstrated pleural abnormality. There is mild cardiac enlargement. Normal mediastinum and ruben. Normal visualized pulmonary arteries. Normal visualized aortic arch and descending thoracic aorta. Normal visualized thoracic spine. Normal visualized ribs, clavicles, and shoulders. There is no demonstrated abnormality of the visualized soft tissue structures of the upper abdomen. RAD/Chest 1 View (Portable) IMPRESSION: Mild cardiomegaly. No acute cardiopulmonary disease process is seen. Electronically Signed: Dennis Loo MD at 21:57 EDT , Service support ,
[2018-05-20 22:01] LABS: Absolute Lymphocyte Count 3.13 X10^3/ul (0.83-4.51); Basophil# 0.03 X10^3/uL; Basophil% 0.3 % (0-1); Eosinophil# 0.11 X10^3/uL; Eosinophils% 1.2 % (0-5); Hematocrit 44.7 % (40-54); Hemoglobin 14.1 g/dl (13.0-16.5); Lymphocyte # 3.13 X10^3/ul (4.0); Lymphocyte % 34.7 % (19-41); Mean Corp Hgb Conc 31.5 g/gl (32-36); Mean Corpuscular Hgb 26.6 pg (27.0-32.0); Mean Corpuscular Volume 84.2 fL (80-94); Mean Platelet Vol. 9.2 fl (6.2-12.0); Monocyte# 0.75 X10^3/uL; Monocyte% 8.3 % (0-10); Neutrophil # 4.99 X10^3/uL (2.7-7.7); Neutrophil % 55.3 % (47-70); Platelet Count 370 K/mm3 (150-450); RBC Distribution Width CV 14.5 % (11.6-14.6); RBC Distribution Width SD 44.2 fl (35.1-43.9); Red Blood Count 5.31 M/mm3 (4.6-6.2)
[2018-05-20 22:02] LABS: POSITIVE COUNT NO; POSITIVE DIFFERENTIAL NO; POSITIVE MORPHOLOGY NO
[2018-05-20 22:12] LABS: Anion Gap 7 (5-15); BUN 22 mg/dL (7-18); BUN/Creat Ratio 21.4 RATIO (10-20); Calcium,Total 8.9 mg/dL (8.5-10.1); Chloride 108 mmol/L (98-107); Creatinine, Serum 1.03 mg/dL (0.70-1.30); EST Glomerular Filtration Rate 82 mL/min (>60); Est Glom Filt Rate - Afr Amer 99 mL/min (>60); Estimated Creatinine Clearance 93.41 ml/min; Glucose 101 mg/dL (74-106); Potassium 3.5 mmol/L (3.5-5.1); Sodium Level 142 mmol/L (136-145)
--- NOTE | 2018-05-20 22:20 | ED.VISSUMM ---
- ER Visit Summary Date of Service: 05/20/18 Chief Complaint: Chest pain and palpitations History of Present Illness: The patient is a 48 M history of reported TIA, [place], A. fib, kidney stones. Patient reportedly had a cardiac ablation in the past for A. fib. Currently he is on Eliquis and sotalol for his A. fib. He was just in the hospital and just had a negative cardiac workup. He had a recent negative cardiac catheterization. He states today he had chest discomfort intermittent since 9:00. And intermittent episodes of A. fib. Physical Examination: Well-appearing male. Vital signs are stable. Blood pressure 156/109. Heart rate 109. Pulse ox 100% on 2 L no hypoxia. He is in no distress. H EENT exam unremarkable neck nontender no JVD. Lungs clear to auscultation bilaterally. Heart regular rate and rhythm rate about 98 on my exam. Abdomen soft nontender. Normal bowel sounds no peritoneal signs. He is moving all 4 extremities they are neurovascularly intact. Calves are nontender without edema or cords. Neurologically is awake alert no focal motor or sensory deficits. He is slightly anxious. Test Results: Chest x-ray no acute process read by myself the radiologist. CBC normal. Chemistries unremarkable. Troponin normal. EKG sinus tachycardia rate of 111 no acute process. Emergency Department Course and Treatment: Repeat exam patient doing well at 2221. 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 Jesse Harris. Treatment Plan: Discharged to home Disposition: Discharge Impression: Acute transient palpitations resolved History of A. fib Chest pain uncertain etiology This note was generated with [employer] dictation software. It may contain incorrect words, spelling, and punctuation that were not noted in review of the chart prior to signing ED Disposition - Plan for ED Patient: Chief Complaint: Palpitations Referrals: Kristyn Bearden MD [Primary Care Provider] -
--- NOTE | 2018-05-20 22:22 | ED.DEP ---
ED Disposition - Plan for ED Patient: Disposition: Home or Assisted Living Chief Complaint: Palpitations Instructions: ED Palpitations Referrals: Jesse Harris MD [STAFF PHYSICIAN] - As soon as possible Additional Instructions: Continue current medications. Call and follow-up with Dr. Harris.
[2018-05-20 22:36] VITALS: BP 147/98; PULSE 99; RESP 25; O2SAT 97
== END 2018-05-20 22:42 | disposition home or self-care (01) ==
PROVIDERS: Emergency Provider Emergency Medicine; Family Provider Internal Medicine; PCP Internal Medicine
DX: R00.2 Palpitations (principal); R07.9 Chest pain, unspecified; I48.91 Unspecified atrial fibrillation; I71.9 Aortic aneurysm of unspecified site, without rupture; I25.2 Old myocardial infarction; I10 Essential (primary) hypertension; E78.00 Pure hypercholesterolemia, unspecified; Z86.73 Personal history of transient ischemic attack (TIA), and cerebral infarction without residual deficits; Z79.01 Long term (current) use of anticoagulants; Z79.82 Long term (current) use of aspirin; Z79.899 Other long term (current) drug therapy
CPT/HCPCS: 71045; 80048; 84484; 85025; 93005; 99284; A4216

== ENCOUNTER 2018-05-29 16:19 | Emergency (ER) | payer MEDICARE, SELFPAY ==
[2018-05-29 16:20] VITALS: BP 127/99; PULSE 106; RESP 24; TEMP 36.4; O2SAT 100; BMI 46.3
--- NOTE | 2018-05-29 16:50 | RAD_ITS ---
STUDY: X-RAY CHEST REASON FOR EXAM: Male, 48 years old. Chest pain. TECHNIQUE: Single AP portable view of the chest. COMPARISON: May 20, 2018. FINDINGS: Telemetry wires overlie the chest. The lungs are clear and expanded. There is no demonstrated pleural abnormality. The heart is mildly enlarged. Normal mediastinum and ruben. Normal visualized pulmonary arteries. Normal visualized aortic arch and descending thoracic aorta. The thoracic spine is obscured by the mediastinum. Normal visualized ribs, clavicles, and shoulders. There is no demonstrated abnormality of the visualized soft tissue structures of the upper abdomen. RAD/Chest 1 View (Portable) IMPRESSION: Stable cardiomegaly without acute pulmonary disease or interval change. Electronically Signed: Carlos Eduardo Johnson DO at 17:02 EDT Tel [phone], Service support ,
[2018-05-29 16:56] VITALS: O2SAT 93
[2018-05-29] MEDS: Ondansetron 4 MG/2 ML Vial IV (16:56)
[2018-05-29] MEDS: Morphine 4 MG/ML Syringe IV (16:56)
[2018-05-29] MEDS: 0.9% Normal Saline 1,000 ML 150 ML IV (16:56)
[2018-05-29 17:26] LABS: AST(SGOT) 27 U/L (15-37); Absolute Lymphocyte Count 2.73 X10^3/ul (0.83-4.51); Absolute Neutrophil Count 4.1 X10^3/uL (2.0-7.7); Alanine Aminotransfer ALT/SGPT 47 U/L (16-61); Albumin, Serum 3.6 g/dL (3.2-5.0); Alkaline Phosphatase 98 U/L (45-117); Anion Gap 7 (5-15); BUN 12 mg/dL (7-18); BUN/Creat Ratio 12.3 RATIO (10-20); Basophil# 0.04 X10^3/uL; Basophil% 0.5 % (0-1); Bilirubin, Direct 0.13 mg/dL (0.00-0.30); Calcium,Total 8.9 mg/dL (8.5-10.1); Chloride 108 mmol/L (98-107); Creatinine, Serum 0.98 mg/dL (0.70-1.30); EST Glomerular Filtration Rate 87 mL/min (>60); Eosinophil# 0.11 X10^3/uL; Eosinophils% 1.4 % (0-5); Est Glom Filt Rate - Afr Amer 105 mL/min (>60); Estimated Creatinine Clearance 68.19 ml/min; Globulin 3.9 g/dL (2.2-4.2); Glucose 81 mg/dL (74-106); Hematocrit 42.5 % (40-54); Hemoglobin 13.6 g/dl (13.0-16.5); Lipase 227 U/L (73-393); Lymphocyte # 2.73 X10^3/ul (4.0); Lymphocyte % 35.7 % (19-41); Mean Corpuscular Hgb 26.7 pg (27.0-32.0); Mean Corpuscular Volume 83.5 fL (80-94); Mean Platelet Vol. 8.9 fl (6.2-12.0); Monocyte# 0.69 X10^3/uL; Neutrophil # 4.06 X10^3/uL (2.7-7.7); Neutrophil % 53.1 % (47-70); Platelet Count 315 K/mm3 (150-450); Potassium 3.3 mmol/L (3.5-5.1); Protein, Total 7.5 g/dL (6.4-8.2); RBC Distribution Width CV 14.2 % (11.6-14.6); RBC Distribution Width SD 43.5 fl (35.1-43.9); Red Blood Count 5.09 M/mm3 (4.6-6.2); Sodium Level 142 mmol/L (136-145); White Blood Count 7.7 K/mm3 (4.4-11.0)
[2018-05-29 17:28] LABS: POSITIVE COUNT NO; POSITIVE DIFFERENTIAL NO; POSITIVE MORPHOLOGY NO
[2018-05-29] MEDS: HYDROmorphone 1 MG/ML Syringe IV (17:50)
--- NOTE | 2018-05-29 17:50 | ED.VISSUMM ---
- ER Visit Summary Date of Service: 05/29/18 Chief Complaint: [Chest pain] History of Present Illness: The patient is a 48 M [presents the emergency department complaint of chest pain that started half an hour ago while mowing the lawn. Patient states that the pain is dull and at times sharp stabbing radiating from the center of his chest to his left shoulder and scapula. Patient has had some nausea and did vomit once. Patient states that he has had pain like this multiple times in the past. Patient tells me he had a heart catheterization 2 months ago. Patient also tells me he has an aortic aneurysm at the arch of the aorta. Patient also has a history of atrial fibrillation and is currently on Eliquis. Patient also with history of kidney stones. Patient has history of hypertension, cholesterol, and atrial fibrillation.] Patient called the squad and they gave him aspirin 1 nitro and currently rates his pain an 8 out of 10. Physical Examination: [HEENT-PERRLA, EOMI. Cranial nerves II through XII grossly intact. TMs clear. Mucous membranes moist. No adenopathy. Cardiovascular-regular rate and rhythm without murmur or ectopy Lungs-clear to auscultation, chest wall stable without crepitus or subcu emphysema Abdomen-normoactive bowel sounds, soft, nontender, no rebound or rigidity, no peritoneal signs. Extremities-intact ?4, normal range of motion, normal pulses, atraumatic] Test Results: [EKG obtained on arrival showed sinus rhythm with a ventricular rate of 110 bpm with no acute ST segment changes. CBC with differential obtained was normal. Chemistries were normal. Troponin was less than 0.015. LFTs and lipase were normal. Chest x-ray showed nothing acute.] Emergency Department Course and Treatment: [I reviewed patient's heart cath from 2 months ago and it showed angiographically normal coronaries. Patient also had a CT scan of the chest in March of this year that showed an ascending aortic aneurysm of 4.[address] scan before that of the chest was on February 17 and it showed a 4.4 cm thoracic aortic aneurysm. CT scan before that was on October 25, 2017 showing a 4.4 cm aneurysm. In the last 6 months there is been no change in the size of this aneurysm. Patient also has had 3 CT scans of the abdomen and pelvis in the last 7 months. Patient is also had multiple chest x-rays.] Treatment Plan: [Patient was medicated with morphine and Zofran initially followed by a milligram of Dilaudid. At this point I do not feel any further imaging is indicated. I have concerns regarding the amount of radiation this patient is receiving an attempt to workup his frequent complaint of chest pain. Given that he has had normal heart cath 2 months ago with normal EKG and normal heart enzymes I do not feel his chest pain is cardiac in nature. Patient is on anticoagulant and do not feel his pain consistent with PE.] Disposition: [Discharged home in stable condition] Impression: [Chest pain-etiology uncertain] This note was generated with [employer] dictation software. It may contain incorrect words, spelling, and punctuation that were not noted in review of the chart prior to signing ED Disposition - Plan for ED Patient: Chief Complaint: Chest Pain Referrals: Kristyn Bearden MD [Primary Care Provider] -
--- NOTE | 2018-05-29 17:54 | ED.DEP ---
ED Disposition - Plan for ED Patient: Chief Complaint: Chest Pain Instructions: ED Chest Pain Atypical Unkn Cause Prescriptions: Oxycodone HCl/Acetaminophen [Percocet 5/325] 1 tab PO Q6H PRN PRN 3 Days #10 tab PRN Reason: Pain Referrals: Kristyn Bearden MD [Primary Care Provider] - 3-5 Days
--- NOTE | 2018-05-29 17:57 | ED.RN ---
notified MD of pt and concerned for his mental status and that he feels how he did when he was having a mini stroke. pt just received martha CONNOR returned to room at this time.
[2018-05-29 18:22] VITALS: BP 155/104; PULSE 66; RESP 16; O2SAT 100
== END 2018-05-29 18:45 | disposition home or self-care (01) ==
PROVIDERS: Emergency Provider Emergency Medicine; Family Provider Internal Medicine; PCP Internal Medicine
DX: R07.9 Chest pain, unspecified (principal); I10 Essential (primary) hypertension; I71.2 Thoracic aortic aneurysm, without rupture; E78.00 Pure hypercholesterolemia, unspecified; I48.91 Unspecified atrial fibrillation; Z79.01 Long term (current) use of anticoagulants; Z79.82 Long term (current) use of aspirin; Z79.899 Other long term (current) drug therapy
CPT/HCPCS: 71045; 80048; 80076; 83690; 84484; 85025; 93005; 96361; 96374; 96375; 99285; A4216; J2405

== ENCOUNTER 2018-06-17 20:26 | Emergency (ER) | payer MEDICARE, SELFPAY ==
[2018-06-17 20:26] VITALS: BP 146/97; PULSE 68; RESP 14; TEMP 36.7; O2SAT 100; BMI 33.2
[2018-06-17 21:42] LABS: Absolute Lymphocyte Count 3.29 X10^3/ul (0.83-4.51); Absolute Neutrophil Count 6.6 X10^3/uL (2.0-7.7); Basophil# 0.02 X10^3/uL; Basophil% 0.2 % (0-1); Eosinophil# 0.02 X10^3/uL; Eosinophils% 0.2 % (0-5); Hematocrit 37.9 % (40-54); Lymphocyte # 3.29 X10^3/ul (4.0); Lymphocyte % 29.3 % (19-41); Mean Corp Hgb Conc 31.7 g/gl (32-36); Mean Corpuscular Hgb 26.6 pg (27.0-32.0); Mean Platelet Vol. 8.6 fl (6.2-12.0); Monocyte# 1.26 X10^3/uL; Monocyte% 11.2 % (0-10); Neutrophil # 6.62 X10^3/uL (2.7-7.7); Neutrophil % 58.8 % (47-70); POSITIVE COUNT NO; POSITIVE DIFFERENTIAL NO; POSITIVE MORPHOLOGY NO; Platelet Count 284 K/mm3 (150-450); RBC Distribution Width CV 14.6 % (11.6-14.6); RBC Distribution Width SD 44.6 fl (35.1-43.9); Red Blood Count 4.51 M/mm3 (4.6-6.2); White Blood Count 11.2 K/mm3 (4.4-11.0)
[2018-06-17] MEDS: Ondansetron 4 MG/2 ML Vial IV (21:43)
[2018-06-17] MEDS: Ketorolac 30 MG/ML Syringe IV (21:43)
[2018-06-17] MEDS: 0.9% Normal Saline 1,000 ML 1000 ML IV (21:44)
[2018-06-17 21:54] LABS: Anion Gap 9 (5-15); BUN 17 mg/dL (7-18); BUN/Creat Ratio 15.9 RATIO (10-20); Calcium,Total 8.2 mg/dL (8.5-10.1); Chloride 110 mmol/L (98-107); Creatinine, Serum 1.07 mg/dL (0.70-1.30); EST Glomerular Filtration Rate 78 mL/min (>60); Est Glom Filt Rate - Afr Amer 95 mL/min (>60); Estimated Creatinine Clearance 89.92 ml/min; Glucose 88 mg/dL (74-106); Potassium 3.3 mmol/L (3.5-5.1); Sodium Level 143 mmol/L (136-145)
[2018-06-17 22:01] VITALS: BP 146/100; PULSE 66; RESP 16; O2SAT 100
[2018-06-17] MEDS: Morphine 4 MG/ML Syringe IV (22:50)
[2018-06-17 23:01] LABS: Bacteria 0 SEEN /hpf (None Seen); Mucous, Urine 0 SEEN /hpf (<or=2+); Red Blood Cells-Urine 0 SEEN /hpf (0-5); White Blood Cells 0 SEEN /hpf (0-5)
[2018-06-17 23:05] LABS: Color, Urine Yellow (Yellow); Glucose, Dipstick Normal (Normal); Ketone-Dipstick Negative (Negative); Leukocyte Esterase-Dipstick Negative /ul (Negative); Nitrite-Dipstick Negative (Negative); Occult Blood-Urine Negative /ul (Negative); Protein-Dipstick Negative (Negative); Specific Gravity, Urine 1.015 (1.002-1.030); Urine Bilirubin Dipstick Negative (Negative); Urine Clarity Sl. Cloudy (Clear); Urine Urobilinogen Normal (Normal)
[2018-06-17 23:10] LABS: Amorphous Sediment 2+ PHOS; Squamous Epithelial Cells - UA 0-5 SEEN /hpf (0-5)
--- NOTE | 2018-06-17 23:38 | ED.VISSUMM ---
- ER Visit Summary Date of Service: 06/17/18 Chief Complaint: Flank pain History of Present Illness: The patient is a 48 M with right sided flank pain. The patient has a long history of kidney stones and follows with Dr. Langley. This episode has been going on for several days, intermittently. Patient denies any current urinary symptoms, but he does have occasional difficulty urinating. Denies bleeding or burning. No fever or systemic symptoms. No nausea, vomiting, diarrhea, or GI symptoms. Physical Examination: Afebrile and vital signs unremarkable. Appears uncomfortable but not in acute distress. Heart regular. Abdomen soft and nontender. Mild right CVA tenderness. Skin appears normal. Test Results: White count 11.2 and hemoglobin 12.0, potassium 3.3 and chloride 110. Urinalysis unremarkable. Ultrasound showed right renal stones with mild hydronephrosis. Emergency Department Course and Treatment: Patient had a CT of his abdomen and pelvis just about a month ago. It showed multiple right side renal stones. The largest stone was 4.1 mm. We discussed the risks and benefits of repeating the CAT scan and elected to order an ultrasound. This showed mild hydronephrosis. Urinalysis unremarkable. Labs fairly unremarkable. Patient's pain is much improved. He would like to try outpatient follow-up. I advised him that he should return if he has difficulty following up or any new or worsening symptoms. He will continue his Flomax. We will add a short course of Percocet. He was referred to urology. Treatment Plan: As above Disposition: Discharged Impression: 1. Right ureteral colic This note was generated with [employer] dictation software. It may contain incorrect words, spelling, and punctuation that were not noted in review of the chart prior to signing ED Disposition - Plan for ED Patient: Chief Complaint: Flank Pain Referrals: Kristyn Bearden MD [Primary Care Provider] -
--- NOTE | 2018-06-17 23:43 | ED.DEP ---
ED Disposition - Plan for ED Patient: Chief Complaint: Flank Pain Instructions: ED Stone Renal W Colic Prescriptions: Oxycodone HCl/Acetaminophen [Percocet 5/325] 1 tab PO Q6H PRN PRN 3 Days #12 tab PRN Reason: Pain Referrals: Ce Gilbert MD [STAFF PHYSICIAN] - Darwin Moreira MD [STAFF PHYSICIAN] -
[2018-06-17 23:46] VITALS: BP 140/81; PULSE 75; RESP 16; O2SAT 97
[2018-06-17] MEDS: HYDROcodone Bitartrate/Apap 5/325 Tablet PO (23:51)
== END 2018-06-17 23:52 | disposition home or self-care (01) ==
PROVIDERS: Emergency Provider Emergency Medicine; Family Provider Internal Medicine; PCP Internal Medicine
DX: N20.1 Calculus of ureter (principal); Z87.442 Personal history of urinary calculi; I48.91 Unspecified atrial fibrillation; I71.2 Thoracic aortic aneurysm, without rupture; I47.1 Supraventricular tachycardia; I10 Essential (primary) hypertension; E78.00 Pure hypercholesterolemia, unspecified; F41.9 Anxiety disorder, unspecified; K21.9 Gastro-esophageal reflux disease without esophagitis; H81.10 Benign paroxysmal vertigo, unspecified ear; Z79.01 Long term (current) use of anticoagulants; Z79.82 Long term (current) use of aspirin; Z79.899 Other long term (current) drug therapy
CPT/HCPCS: 76770; 80048; 81001; 85025; 96361; 96374; 96375; 99283; J7030; A4216; J2405

== ENCOUNTER 2018-07-01 17:04 | Emergency (ER) | payer MEDICARE, SELFPAY ==
[2018-07-01 17:06] VITALS: BP 123/98; PULSE 101; RESP 14; TEMP 36.8; O2SAT 100; BMI 32.9
--- NOTE | 2018-07-01 17:35 | EKG12_ITS ---
Test Reason : Blood Pressure : / mmHG Vent. Rate : 101 BPM Atrial Rate : 101 BPM P-R Int : 162 ms QRS Dur : 072 ms QT Int : 348 ms P-R-T Axes : 025 012 021 degrees QTc Int : 451 ms Sinus tachycardia Minimal voltage criteria for LVH, may be normal variant Borderline ECG Confirmed by NABILA CONNOR, JEANCARLOS ([id number]), photo editor RICCO LUZ ([id number]) on 07/04/2018 1:16:01 PM Referred By: MI Confirmed By:JEANCARLOS DAHL MD
--- NOTE | 2018-07-01 17:35 | RAD_ITS ---
STUDY: X-RAY - RIGHT SHOULDER REASON FOR EXAM: Male, 48 years old. Pain. TECHNIQUE: 2 view(s) of the shoulder. COMPARISON: None. FINDINGS: Normal glenohumeral articulation. Normal acromioclavicular joint. Normal acromion. There is no acute fracture, dislocation or destructive osseous pathology. Normal humeral head and visualized proximal humerus. The soft tissue structures are unremarkable. Normal visualized pulmonary apex. RAD/Shoulder min 2 Views IMPRESSION: Normal x-ray examination of the shoulder. Electronically Signed: Carlos Eduardo Johnson DO at 18:22 EDT Tel [phone], Service support ,
--- NOTE | 2018-07-01 17:39 | ED.DCSUM_ITS ---
- ER Visit Summary Date of Service: 07/01/18 Chief Complaint: Chest pain History of Present Illness: The patient is a 48 M who is had recent problems with his right shoulder. He has been following with Dr. Batista. Today he believes he dislocated his right shoulder and popped it back in place. Shortly after this he became sweaty, vomited, and developed chest pain. He reports the left anterior chest. He denies palpitations. Physical Examination: Vital signs are unremarkable. Patient sitting upright in bed no acute distress. Head neck examination unremarkable. Heart is regular rate and rhythm. Lung sounds are clear. There is no reproducible chest wall tenderness. Abdomen is soft and nontender. Right upper extremity examination reveals tenderness of the anterior right shoulder without evidence of dislocation. He has decreased range of motion secondary to pain. Palpable distal pulses are noted. He has good cap refill and sensation. Test Results: Right shoulder x-rays is unremarkable. Portable chest x-ray shows stable borderline cardiomegaly. EKG is sinus tach at 101 with no sign of acute ischemia. CBC and chemistry studies normal. Troponin negative. Emergency Department Course and Treatment: Patient is given morphine and Zofran. At this time I see no evidence of cardiac cause for his pain. He may have had some pain after his vomiting episode which was likely brought on by pain. He will be given Percocet for home and given a right arm sling. He is to follow-up with his orthopedist as soon as possible. Treatment Plan: [] Disposition: Discharge Impression: 1. Right shoulder dislocation with self reduction 2. Atypical chest pain This note was generated with [employer] dictation software. It may contain incorrect words, spelling, and punctuation that were not noted in review of the chart prior to signing ED Disposition - Plan for ED Patient: Chief Complaint: Chest Pain Referrals: Kristyn Bearden MD [Primary Care Provider] -
[2018-07-01] MEDS: Ondansetron 4 MG/2 ML Vial IV (17:48)
[2018-07-01] MEDS: Morphine 4 MG/ML Syringe IV (17:48)
[2018-07-01] MEDS: 0.9% Normal Saline 1,000 ML 150 ML IV (17:48)
--- NOTE | 2018-07-01 18:00 | RAD_ITS ---
STUDY: X-RAY CHEST REASON FOR EXAM: Male, 48 years old. Chest pain. TECHNIQUE: Single AP portable view of the chest. COMPARISON: May 29, 2018. FINDINGS: Telemetry wires overlie the chest. There is a mildly improved inspiratory effort. There is no new infiltrate or mass. There is no demonstrated pleural abnormality. There is borderline cardiomegaly. Normal mediastinum and ruben. Normal visualized pulmonary arteries. Normal visualized aortic arch and descending thoracic aorta. The thoracic spine is obscured by the mediastinum. Normal visualized ribs, clavicles, and shoulders. There is no demonstrated abnormality of the visualized soft tissue structures of the upper abdomen. RAD/Chest 1 View (Portable) IMPRESSION: Stable borderline cardiomegaly without acute cardiopulmonary disease or interval change. Electronically Signed: Carlos Eduardo Johnson DO at 18:15 EDT Tel [phone], Service support ,
[2018-07-01 18:24] LABS: Absolute Lymphocyte Count 2.39 X10^3/ul (0.83-4.51); Absolute Neutrophil Count 3.6 X10^3/uL (2.0-7.7); Basophil# 0.02 X10^3/uL; Basophil% 0.3 % (0-1); Eosinophil# 0.08 X10^3/uL; Eosinophils% 1.2 % (0-5); Hematocrit 42.1 % (40-54); Hemoglobin 13.5 g/dl (13.0-16.5); Lymphocyte # 2.39 X10^3/ul (4.0); Lymphocyte % 34.8 % (19-41); Mean Corp Hgb Conc 32.1 g/gl (32-36); Mean Corpuscular Hgb 26.4 pg (27.0-32.0); Mean Corpuscular Volume 82.4 fL (80-94); Mean Platelet Vol. 8.7 fl (6.2-12.0); Monocyte# 0.79 X10^3/uL; Monocyte% 11.5 % (0-10); Neutrophil # 3.58 X10^3/uL (2.7-7.7); Neutrophil % 52.1 % (47-70); Platelet Count 299 K/mm3 (150-450); RBC Distribution Width CV 13.8 % (11.6-14.6); RBC Distribution Width SD 41.8 fl (35.1-43.9); Red Blood Count 5.11 M/mm3 (4.6-6.2); White Blood Count 6.9 K/mm3 (4.4-11.0)
[2018-07-01 18:25] LABS: POSITIVE COUNT NO; POSITIVE DIFFERENTIAL NO; POSITIVE MORPHOLOGY NO
[2018-07-01 18:42] LABS: Anion Gap 10 (5-15); BUN 13 mg/dL (7-18); BUN/Creat Ratio 12.7 RATIO (10-20); Calcium,Total 9.4 mg/dL (8.5-10.1); Chloride 108 mmol/L (98-107); Creatinine, Serum 1.02 mg/dL (0.70-1.30); EST Glomerular Filtration Rate 83 mL/min (>60); Est Glom Filt Rate - Afr Amer 100 mL/min (>60); Estimated Creatinine Clearance 94.33 ml/min; Glucose 80 mg/dL (74-106); Potassium 3.7 mmol/L (3.5-5.1); Sodium Level 141 mmol/L (136-145)
--- NOTE | 2018-07-01 18:57 | ED.DEP ---
ED Disposition - Plan for ED Patient: Disposition: Home or Assisted Living Chief Complaint: Chest Pain Instructions: ED Dislocation Shoulder Redu, ED Chest Pain Atypical Unkn Cause Prescriptions: Oxycodone HCl/Acetaminophen [Percocet 5/325] 1 tablet PO Q6H PRN PRN 5 Days #20 tablet PRN Reason: Pain Referrals: Kristyn Bearden MD [Primary Care Provider] - Claribel Batista DO [STAFF PHYSICIAN] - As soon as possible
[2018-07-01 19:13] VITALS: BP 133/103; PULSE 74; RESP 23; O2SAT 100
== END 2018-07-01 19:14 | disposition home or self-care (01) ==
PROVIDERS: Emergency Provider Emergency Medicine; Family Provider Internal Medicine; PCP Internal Medicine
DX: R07.89 Other chest pain (principal); S43.004A Unspecified dislocation of right shoulder joint, initial encounter; X58.XXXA Exposure to other specified factors, initial encounter; Y93.9 Activity, unspecified; Y92.9 Unspecified place or not applicable; I25.10 Atherosclerotic heart disease of native coronary artery without angina pectoris; I10 Essential (primary) hypertension; E78.00 Pure hypercholesterolemia, unspecified; K21.9 Gastro-esophageal reflux disease without esophagitis; I48.91 Unspecified atrial fibrillation; I48.92 Unspecified atrial flutter; I47.1 Supraventricular tachycardia; I71.2 Thoracic aortic aneurysm, without rupture; Z79.01 Long term (current) use of anticoagulants; Z79.82 Long term (current) use of aspirin; Z79.899 Other long term (current) drug therapy
CPT/HCPCS: 71045; 73030; 80048; 84484; 85025; 93005; 96361; 96374; 96375; 99285; J7030; A4216; J2405

== ENCOUNTER → 2018-07-07 11:03 | Outpatient (CLI) | payer MEDICARE, SELFPAY ==
--- NOTE | 2018-07-07 11:06 | RAD_ITS ---
STUDY: X-RAY - RIGHT SHOULDER REASON FOR EXAM: Axillary view. TECHNIQUE: A single view of the shoulder. COMPARISON: Radiographs 07/01/2018. FINDINGS: Normal glenohumeral articulation. Normal acromioclavicular joint. Normal acromion. Normal humeral head and visualized proximal humerus. The soft tissue structures are unremarkable. RAD/Shoulder One View IMPRESSION: Normal axillary view of the right shoulder. Electronically Signed: Camron Louis MD at 12:00 EDT Tel , Service support ,
== END ==
LOC: HPRAD 11:05
PROVIDERS: Family Provider Internal Medicine; PCP Internal Medicine; Visit Provider Orthopaedic Surgery
DX: M25.511 Pain in right shoulder (principal)
CPT/HCPCS: 73020

== ENCOUNTER 2018-07-08 16:32 | Emergency (ER) | payer MEDICARE, SELFPAY ==
[2018-07-08 16:33] VITALS: BP 169/111; PULSE 106; RESP 20; TEMP 36.6; O2SAT 97; BMI 32.8
--- NOTE | 2018-07-08 16:45 | RAD_ITS ---
STUDY: X-RAY - RIGHT SHOULDER REASON FOR EXAM: Male, 48 years old. Pain, no known injury. Popped out a few times according to patient. TECHNIQUE: 4 view(s) of the shoulder. COMPARISON: X-Ray Shoulder 07/07/2018, 07/01/2018. FINDINGS: No fracture. Normal acromioclavicular joint. In the scapular Y view, the humeral head lies slightly posterior relative to the glenoid. In the frontal rotated view, there may be an old Hill-Sachs fracture deformity. Difficult to exclude a partial posterior dislocation. Axillary view is recommended. RAD/Shoulder min 2 Views IMPRESSION: In the scapular Y view, slightly malorientation of the humeral head relative to the glenoid. This probably just positional. Difficult to exclude partial dislocation posteriorly, although unlikely. Correlate with axillary view. No fracture. Electronically Signed: Conrad Zee, at 17:18 EDT Tel , Service support ,
--- NOTE | 2018-07-08 17:09 | ED.VISSUMM ---
- ER Visit Summary Date of Service: 07/08/18 Chief Complaint: Right shoulder pain History of Present Illness: The patient is a 48 M presenting for evaluation secondary to shoulder pain. Patient has a history of frequent right shoulder dislocations. His most recent was about a week ago. Patient reports over the course last 2 days while showering is felt the shoulder go in and then out. He called his orthopedist recommended that he come to the emergency department to be sure that his shoulder is reduced. Patient does endorse that he has mild amount of paresthesia in the right arm. Review of systems otherwise negative. Physical Examination: Examination of patient's left upper extremity shows pain diffusely around the shoulder. There is limited range of motion secondary to pain. There is no evidence of warmth or overlying erythema. Normal flexion extension at the elbow wrist, normal sensation of the arm, normal distal pulses. Test Results: 2 view of the right shoulder shows evidence of no fracture no dislocation per my personal review Emergency Department Course and Treatment: Patient presented due to concern for dislocation of the shoulder. X-rays were negative. Patient was placed in a sling he will follow-up with orthopedics. Disposition: Discharge Impression: 1. Recurrent right shoulder dislocations with spontaneous reduction This note was generated with [employer] dictation software. It may contain incorrect words, spelling, and punctuation that were not noted in review of the chart prior to signing ED Disposition - Plan for ED Patient: Disposition: Home or Assisted Living Chief Complaint: Upper Extremity Injury Diagnosis: Shoulder dislocation, recurrent Instructions: Understanding Shoulder Instability Referrals: Claribel Batista DO [STAFF PHYSICIAN] - 5-7 Days
[2018-07-08 17:18] VITALS: RESP 16
== END 2018-07-08 17:19 | disposition home or self-care (01) ==
PROVIDERS: Emergency Provider Emergency Medicine; Family Provider Internal Medicine; PCP Internal Medicine
DX: M24.411 Recurrent dislocation, right shoulder (principal); I48.91 Unspecified atrial fibrillation; I10 Essential (primary) hypertension; Z79.82 Long term (current) use of aspirin; Z79.01 Long term (current) use of anticoagulants; Z79.899 Other long term (current) drug therapy
CPT/HCPCS: 73030; 99282

== ENCOUNTER 2018-07-12 14:50 | Emergency (ER) | payer MEDICARE, SELFPAY ==
[2018-07-12 14:51] VITALS: BP 130/94; PULSE 76; RESP 20; TEMP 36.9; O2SAT 98; BMI 34.0
--- NOTE | 2018-07-12 15:41 | EKG12_ITS ---
Test Reason : CHEST PAIN Blood Pressure : / mmHG Vent. Rate : 073 BPM Atrial Rate : 073 BPM P-R Int : 156 ms QRS Dur : 084 ms QT Int : 408 ms P-R-T Axes : 021 015 019 degrees QTc Int : 449 ms Normal sinus rhythm Minimal voltage criteria for LVH, may be normal variant Borderline ECG Confirmed by NABILA CONNOR, JEANCARLOS ([id number]), editor & co founder RICCO LUZ ([id number]) on 07/16/2018 8:55:52 AM Referred By: Confirmed By:JEANCARLOS DAHL MD
--- NOTE | 2018-07-12 15:41 | CT_ITS ---
STUDY: CTA CHEST REASON FOR EXAM: Male, 48 years old. Chest pain RADIATION DOSAGE (If Supplied By Facility): CTDIvol = ( 16.67 ) mGy, DLP = ( 765.31 ) mGycm TECHNIQUE: The examination was performed with the intravenous administration of 100ml ml of Isovue 370 contrast material. Post-processing of the angiographic images was performed, with multiplanar reformation and 3D reconstruction. Individualized dose optimization techniques were used for this CT. COMPARISON: 04/01/2018 FINDINGS: There are no pulmonary infiltrates or pleural effusions. There is stable bronchiectasis noted in the lower lobes. There is no pneumothorax. There is stable aneurysmal dilatation of the ascending aorta, measuring 4.5 cm. 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 There are no filling defects in the pulmonary arteries to suggest pulmonary embolus. Images through the upper abdomen demonstrate no significant abnormality. CT/CTA Chest W/WO Contrast IMPRESSION: No evidence of pulmonary embolus or other acute thoracic disease. Stable 4.5 cm aneurysm of the ascending aorta. Electronically Signed: Vishnu Aranda, at 17:38 EDT Tel , Service support ,
[2018-07-12 15:48] LABS: Absolute Lymphocyte Count 3.12 X10^3/ul (0.83-4.51); Absolute Neutrophil Count 3.7 X10^3/uL (2.0-7.7); Basophil# 0.02 X10^3/uL; Basophil% 0.3 % (0-1); Eosinophil# 0.08 X10^3/uL; Hematocrit 37.6 % (40-54); Hemoglobin 11.8 g/dl (13.0-16.5); Lymphocyte # 3.12 X10^3/ul (4.0); Lymphocyte % 40.7 % (19-41); Mean Corp Hgb Conc 31.4 g/gl (32-36); Mean Corpuscular Hgb 25.7 pg (27.0-32.0); Mean Corpuscular Volume 81.9 fL (80-94); Mean Platelet Vol. 8.9 fl (6.2-12.0); Monocyte% 9.1 % (0-10); Neutrophil # 3.73 X10^3/uL (2.7-7.7); Neutrophil % 48.8 % (47-70); POSITIVE COUNT NO; POSITIVE DIFFERENTIAL NO; POSITIVE MORPHOLOGY NO; Platelet Count 356 K/mm3 (150-450); RBC Distribution Width CV 14.2 % (11.6-14.6); RBC Distribution Width SD 42.6 fl (35.1-43.9); Red Blood Count 4.59 M/mm3 (4.6-6.2); White Blood Count 7.7 K/mm3 (4.4-11.0)
[2018-07-12 15:56] VITALS: BP 129/97; PULSE 71; RESP 18; O2SAT 98
[2018-07-12 16:02] LABS: Anion Gap 10 (5-15); BUN 12 mg/dL (7-18); BUN/Creat Ratio 12.6 RATIO (10-20); Calcium,Total 8.6 mg/dL (8.5-10.1); Chloride 109 mmol/L (98-107); Creatinine, Serum 0.96 mg/dL (0.70-1.30); EST Glomerular Filtration Rate 89 mL/min (>60); Est Glom Filt Rate - Afr Amer 108 mL/min (>60); Estimated Creatinine Clearance 100.23 ml/min; Glucose 75 mg/dL (74-106); Potassium 3.6 mmol/L (3.5-5.1); Sodium Level 142 mmol/L (136-145)
--- NOTE | 2018-07-12 16:03 | ED.DCSUM_ITS ---
- ER Visit Summary Date of Service: 07/12/18 Chief Complaint: Chest pain History of Present Illness: The patient is a 48 M who presents with a left- sided central chest pain. He describes it as sharp in nature. Began last night that resolved. He returned today when he was climbing some stairs. He noted some shortness of breath and some nausea. States he feels dizzy and lightheaded. He states he has a history of [place] but has had negative heart catheterizations in October 2016 and March 2018. He has history of atrial fibrillation and is on Eliquis and had a cardiac ablation. The patient states that this past week he had kidney stone surgery and had to stop his Eliquis restarted yesterday. His states that she thinks he was in A. fib yesterday but he denies this. Physical Examination: Afebrile vital signs are stable Gen: Well-nourished well-developed Head: Normocephalic atraumatic Eyes: Perrl EOMI ENT: TMs clear no rhinorrhea moist mucous membranes Neck: Supple no lymphadenopathy no JVD nontender CVS: Regular rate rhythm no murmurs normal S1-S2 Respiratory: No distress clear to auscultation bilaterally chest nontender Abdomen: Soft nontender nondistended normal bowel sounds no masses Back: Nontender Extremity: Nontender no edema Skin: Normal color no rash Neuro: alert orientated ?3 CN II-XII intact normal strength sensation reflexes gait cerebellar Psych: Normal affect normal mood Test Results: EKG shows a normal sinus rhythm at a rate of 73. CT Gunjan of the chest demonstrated no pulmonary embolism and his aneurysm is still 4.5 cm. Troponin negative. Hemoglobin 11.8. Normal white count. Emergency Department Course and Treatment: Patient had no events on the monitor. He has had no evidence of hypotension. Patient will be discharged home to follow-up with his doctors return if worsening or concerns. Impression: 1. Chest pain 2. Lightheadedness This note was generated with [employer] dictation software. It may contain incorrect words, spelling, and punctuation that were not noted in review of the chart prior to signing ED Disposition - Plan for ED Patient: Disposition: Home or Assisted Living Chief Complaint: Chest Pain Instructions: ED Chest Pain Atypical Unkn Cause Referrals: Kristyn Bearden MD [Primary Care Provider] - 3-5 Days if not improving
[2018-07-12] MEDS: Acetaminophen 500 MG Tablet 1000 MG PO (17:07)
[2018-07-12 17:09] VITALS: BP 132/96; PULSE 64; RESP 18; O2SAT 100
[2018-07-12 18:45] VITALS: BP 129/103
== END 2018-07-12 18:46 | disposition home or self-care (01) ==
PROVIDERS: Emergency Provider Emergency Medicine; Family Provider Internal Medicine; PCP Internal Medicine
DX: R07.9 Chest pain, unspecified (principal); R42 Dizziness and giddiness; I48.91 Unspecified atrial fibrillation; I71.2 Thoracic aortic aneurysm, without rupture; I25.2 Old myocardial infarction; I10 Essential (primary) hypertension; E78.00 Pure hypercholesterolemia, unspecified; K21.9 Gastro-esophageal reflux disease without esophagitis; Z79.01 Long term (current) use of anticoagulants; Z79.82 Long term (current) use of aspirin; Z79.899 Other long term (current) drug therapy
CPT/HCPCS: 71275; 80048; 84484; 85025; 93005; 99285; Q9967; A4216

== ENCOUNTER 2018-07-18 15:03 | Emergency (ER) | payer MEDICARE, SELFPAY ==
[2018-07-18 15:05] VITALS: BP 168/100; PULSE 109; RESP 22; TEMP 36.6; O2SAT 99; BMI 35.9
--- NOTE | 2018-07-18 15:07 | EKG12_ITS ---
Test Reason : CP Blood Pressure : / mmHG Vent. Rate : 098 BPM Atrial Rate : 098 BPM P-R Int : 174 ms QRS Dur : 072 ms QT Int : 350 ms P-R-T Axes : 026 002 007 degrees QTc Int : 446 ms Normal sinus rhythm Minimal voltage criteria for LVH, may be normal variant Borderline ECG Confirmed by INDER CNONOR, ASAEL ([id number]), newspaper or periodical editor RICCO LUZ ([id number]) on 07/21/2018 3:01:28 PM Referred By: Confirmed By:ASAEL LOVING MD
[2018-07-18 15:08] VITALS: PULSE 97; RESP 21; O2SAT 100
--- NOTE | 2018-07-18 15:15 | RAD_ITS ---
STUDY: X-RAY CHEST REASON FOR EXAM: Male, 48 years old. 1 hour history of chest pain. Shortness of breath. TECHNIQUE: Single AP portable view of the chest. COMPARISON: Comparison is made with prior examination dated July 01, 2018. FINDINGS: Widening of the superior mediastinum. The patient has a left-sided SVC. There is no demonstrated pleural abnormality. Normal size heart. Normal visualized pulmonary arteries. Ectasia of the descending thoracic aorta. Normal visualized thoracic spine. Normal visualized ribs, clavicles, and shoulders. There is no demonstrated abnormality of the visualized soft tissue structures of the upper abdomen. RAD/Chest 1 View (Portable) IMPRESSION: No acute amount is seen. Electronically Signed: Pablito Young MD at 15:37 EDT Tel [phone], Service support ,
--- NOTE | 2018-07-18 15:25 | ED.VISSUMM ---
- ER Visit Summary Date of Service: 07/18/18 Chief Complaint: Chest pain History of Present Illness: The patient is a 48 M this is been having sharp intermittent chest pain for last hour. Patient states he has a cardiac history states he had a prior [place]. However the medical records show that he has had workups including a recent cardiac catheterization March of this year at [facility] showing no coronary disease, nor any type of blockage. Patient denies ever having any cardiac stents. He is never had a CABG. He is on Eliquis for intermittent A. fib. He does have a known thoracic aneurysm. Patient states that he is recently been in the hospital both here and at [facility]. Denies any prior history of PE or DVT Physical Examination: Middle-aged white male no acute distress. Vital signs are stable and afebrile. 99% on room air no signs of hypoxia. HEENT exam unremarkable. Neck nontender no lymphadenopathy. Chest wall nontender. Heart regular rate and rhythm no murmur. Abdomen soft nontender normal bowel sounds no peritoneal signs extremities moves all 4. Calves nontender. No edema no cords. Equal symmetrical radial pulses. 5 out of 5 blood and plasma laboratory assistant strength. Back nontender. Neurologically is awake and alert with no focal motor or sensory deficits. Test Results: He will undergo cardiac workup. CBC unremarkable his has a chronic anemia with a hemoglobin of 12. Electrolytes unremarkable. Normal gap and creatinine. Troponin normal. EKG shows a sinus rhythm rate of 98. No change from prior EKG earlier this month. LVH. Chest x-ray shows thoracic aneurysm but no acute abnormality otherwise. Emergency Department Course and Treatment: He was treated with aspirin p.o. repeat exam the patient is doing well at 1550. I went over all test results of both he and his . He will be discharged home to follow-up as an outpatient. Treatment Plan: I spoke the patient's pan cleaner Dr. Jesse Harris. He knows the patient very well. He states the patient had extensive invasive and noninvasive cardiac workups which show no signs of coronary disease. Disposition: Discharge Impression: Chest pain of uncertain etiology History of intermittent A. fib Anticoagulated on Eliquis This note was generated with [employer] dictation software. It may contain incorrect words, spelling, and punctuation that were not noted in review of the chart prior to signing ED Disposition - Plan for ED Patient: Chief Complaint: Chest Pain Referrals: Kristyn Bearden MD [Primary Care Provider] -
[2018-07-18 15:27] LABS: Absolute Lymphocyte Count 1.89 X10^3/ul (0.83-4.51); Absolute Neutrophil Count 3.3 X10^3/uL (2.0-7.7); Basophil# 0.03 X10^3/uL; Basophil% 0.5 % (0-1); Eosinophil# 0.09 X10^3/uL; Eosinophils% 1.4 % (0-5); Hematocrit 38.8 % (40-54); Hemoglobin 12.1 g/dl (13.0-16.5); Lymphocyte # 1.89 X10^3/ul (4.0); Lymphocyte % 29.9 % (19-41); Mean Corp Hgb Conc 31.2 g/gl (32-36); Mean Corpuscular Hgb 25.2 pg (27.0-32.0); Mean Corpuscular Volume 80.7 fL (80-94); Mean Platelet Vol. 8.9 fl (6.2-12.0); Monocyte# 0.97 X10^3/uL; Monocyte% 15.3 % (0-10); Neutrophil # 3.32 X10^3/uL (2.7-7.7); Neutrophil % 52.6 % (47-70); Platelet Count 315 K/mm3 (150-450); RBC Distribution Width CV 14.2 % (11.6-14.6); RBC Distribution Width SD 41.5 fl (35.1-43.9); Red Blood Count 4.81 M/mm3 (4.6-6.2); White Blood Count 6.3 K/mm3 (4.4-11.0)
[2018-07-18 15:32] VITALS: BP 133/97; PULSE 92
[2018-07-18] MEDS: Nitroglycerin Oint 1 INCH PACKET TRANSDERM. (15:32)
[2018-07-18] MEDS: Aspirin 81 MG TAB.CHEW 324 MG PO (15:32)
--- NOTE | 2018-07-18 15:32 | ED.DCSUM_ITS ---
- ER Visit Summary Date of Service: 07/18/18 Chief Complaint: Chest pain History of Present Illness: The patient is a 48 M this is been having sharp intermittent chest pain for last hour. Patient states he has a cardiac history states he had a prior [place]. However the medical records show that he has had wor kups including a recent cardiac catheterization March of this year at [facility] showing no coronary disease, nor any type of blockage. Patient denies ever having any cardiac stents. He is never had a CABG. He is on Eliquis for intermittent A. fib. He does have a known thoracic aneurysm. Patient states that he is recently been in the hospital both here and at [facility]. Denies any prior history of PE or DVT Physical Examination: Middle-aged white male no acute distress. Vital signs are stable and afebrile. 99% on room air no signs of hypoxia. HEENT exam unremarkable. Neck nontender no lymphadenopathy. Chest wall nontender. Heart regular rate and rhythm no murmur. Abdomen soft nontender normal bowel sounds no peritoneal signs extremities moves all 4. Calves nontender. No edema no cords. Equal symmetrical radial pulses. 5 out of 5 stone gang sawyer strength. Back nontender. Neurologically is awake and alert with no focal motor or sensory deficits. Test Results: He will undergo cardiac workup. CBC unremarkable his has a chronic anemia with a hemoglobin of 12. Electrolytes unremarkable. Normal gap and creatinine. Troponin normal. EKG shows a sinus rhythm rate of 98. No change from prior EKG earlier this month. LVH. Chest x-ray shows thoracic aneurysm but no acute abnormality otherwise. Emergency Department Course and Treatment: He was treated with aspirin p.o. repeat exam the patient is doing well at 1550. I went over all test results of both he and his . He will be discharged home to follow-up as an outpatient. Treatment Plan: I spoke the patient's repairer auto clocks Dr. Jesse Harris. He knows the patient very well. He states the patient had extensive invasive and noninvasive cardiac workups which show no signs of coronary disease. Disposition: Discharge Impression: Chest pain of uncertain etiology History of intermittent A. fib Anticoagulated on Eliquis This note was generated with [employer] dictation software. It may contain incorrect words, spelling, and punctuation that were not noted in review of the chart prior to signing ED Disposition - Plan for ED Patient: Chief Complaint: Chest Pain Referrals: Kristyn Bearden MD [Primary Care Provider] -
[2018-07-18 15:35] LABS: POSITIVE COUNT NO; POSITIVE DIFFERENTIAL NO; POSITIVE MORPHOLOGY NO
[2018-07-18 15:39] LABS: Anion Gap 7 (5-15); BUN 20 mg/dL (7-18); BUN/Creat Ratio 19.4 RATIO (10-20); Calcium,Total 8.9 mg/dL (8.5-10.1); Chloride 110 mmol/L (98-107); Creatinine, Serum 1.03 mg/dL (0.70-1.30); EST Glomerular Filtration Rate 82 mL/min (>60); Est Glom Filt Rate - Afr Amer 99 mL/min (>60); Estimated Creatinine Clearance 84.85 ml/min; Glucose 84 mg/dL (74-106); Potassium 4.1 mmol/L (3.5-5.1); Sodium Level 141 mmol/L (136-145)
--- NOTE | 2018-07-18 16:00 | ED.DEP ---
ED Disposition - Plan for ED Patient: Disposition: Home or Assisted Living Chief Complaint: Chest Pain Instructions: ED Chest Pain Atypical Unkn Cause Referrals: Kristyn Bearden MD [Primary Care Provider] - 3-5 Days if not improving Jesse Harris MD [STAFF PHYSICIAN] - As Needed Additional Instructions: Continue taking your current medications as prescribed. Follow-up with your doctor
[2018-07-18 16:14] VITALS: BP 145/116; PULSE 91; RESP 24; O2SAT 96
== END 2018-07-18 16:16 | disposition home or self-care (01) ==
PROVIDERS: Emergency Provider Emergency Medicine; Family Provider Internal Medicine; PCP Internal Medicine
DX: R07.9 Chest pain, unspecified (principal); I48.91 Unspecified atrial fibrillation; I25.10 Atherosclerotic heart disease of native coronary artery without angina pectoris; I25.2 Old myocardial infarction; I71.2 Thoracic aortic aneurysm, without rupture; I10 Essential (primary) hypertension; E78.00 Pure hypercholesterolemia, unspecified; Z79.01 Long term (current) use of anticoagulants; Z79.82 Long term (current) use of aspirin; Z79.899 Other long term (current) drug therapy
CPT/HCPCS: 71045; 80048; 84484; 85025; 93005; 99285; A4216

== ENCOUNTER 2018-08-31 13:13 | Emergency (ER) | payer MEDICARE, SELFPAY ==
[2018-08-31 13:14] VITALS: BP 138/87; PULSE 101; RESP 12; TEMP 36.3; O2SAT 100; BMI 33.2
--- NOTE | 2018-08-31 13:36 | ED.VISSUMM ---
- ER Visit Summary Date of Service: 08/31/18 Chief Complaint: [] Copious rhinorrhea harsh cough 2 or 3 days History of Present Illness: The patient is a 48 M [] history of intermittent A. fib CHF all those conditions have been stable he indicates over the last 2 or 3 days he has developed copious rhinorrhea with a harsh cough, he indicates he coughs up yellow mucus today he coughed up some slightly blood-tinged mucus he is constantly blowing his nose. He has no history of [place] PE or DVT his other health conditions have been very stable he spoke with the nurse practitioner convict guard was instructed to come to the hospital Physical Examination: [] His blood pressure is 130/80 his pulse ox is 99% on room air he is in no distress his nose is congested his throat is clear his neck is supple his lungs are clear bilaterally his heart tones are normal the abdomen soft nontender upper lower extremities unremarkable neurologically he is awake alert resting comforting bed no distress Test Results: [] Emergency Department Course and Treatment: [] Chief complaint seems to be the copious rhinorrhea and the coughing he does not have a harsh cough here his lungs are perfectly clear his nose is quite congested by his history worse over the last few days. He is comfortable with discharge home, this time which with Afrin nasal spray Mucinex, Flonase for home follow-up as outpatient providers tomorrow Treatment Plan: [] Disposition: [] Home stable Impression: [] URI with harsh cough This note was generated with [employer] dictation software. It may contain incorrect words, spelling, and punctuation that were not noted in review of the chart prior to signing ED Disposition - Plan for ED Patient: Chief Complaint: Shortness of Breath Referrals: Kristyn Bearden MD [Primary Care Provider] -
[2018-08-31] MEDS: Oxymetazoline 0.05% 1 SPRAY SPRAY.BTL 2 SPRAY NASAL (13:40)
--- NOTE | 2018-08-31 13:40 | ED.DCSUM_ITS ---
- ER Visit Summary Date of Service: 08/31/18 Chief Complaint: [] Copious rhinorrhea harsh cough 2 or 3 days History of Present Illness: The patient is a 48 M [] history of intermittent A. fib CHF all those conditions have been stable he indicates over the last 2 or 3 days he has developed copious rhinorrhea with a harsh cough, he indicates he coughs up yellow mucus today he coughed up some slightly blood-tinged mucus he is constantly blowing his nose. He has no history of [place] PE or DVT his other health conditions have been very stable he spoke with the nurse practitioner python architect was instructed to come to the hospital Physical Examination: [] His blood pressure is 130/80 his pulse ox is 99% on room air he is in no distress his nose is congested his throat is clear his neck is supple his lungs are clear bilaterally his heart tones are normal the abdomen soft nontender upper lower extremities unremarkable neurologically he is awake alert resting comforting bed no distress Test Results: [] Emergency Department Course and Treatment: [] Chief complaint seems to be the copious rhinorrhea and the coughing he does not have a harsh cough here his lungs are perfectly clear his nose is quite congested by his history worse over the last few days. He is comfortable with discharge home, this time which with Afrin nasal spray Mucinex, Flonase for home follow-up as outpatient providers tomorrow Treatment Plan: [] Disposition: [] Home stable Impression: [] URI with harsh cough This note was generated with [employer] dictation software. It may contain incorrect words, spelling, and punctuation that were not noted in review of the chart prior to signing ED Disposition - Plan for ED Patient: Chief Complaint: Shortness of Breath Referrals: Kristyn Bearden MD [Primary Care Provider] -
--- NOTE | 2018-08-31 13:42 | DCINST.ED_ITS ---
ED Disposition - Plan for ED Patient: Chief Complaint: Shortness of Breath Instructions: ED Upper Resp Infec No Abx Tx Prescriptions: Fluticasone 0.05% [Flonase Nasal [place]] 1 spray NASAL DAILY #1 nasal.sry Guaifenesin [Mucinex] 1,200 mg PO BID #14 tbmp.12hr Referrals: Kristyn Bearden MD [Primary Care Provider] -
== END 2018-08-31 14:00 | disposition home or self-care (01) ==
LOC: ED 13:52
PROVIDERS: Emergency Provider Emergency Medicine
DX: J06.9 Acute upper respiratory infection, unspecified (principal); I48.0 Paroxysmal atrial fibrillation; I50.9 Heart failure, unspecified; Z79.01 Long term (current) use of anticoagulants; Z79.899 Other long term (current) drug therapy
CPT/HCPCS: 99282

== ENCOUNTER 2018-10-23 19:53 | Emergency (ER) | payer MEDICARE, SELFPAY ==
[2018-10-23 19:55] VITALS: BP 141/80; PULSE 81; RESP 16; TEMP 36.9; O2SAT 99; BMI 32.5
--- NOTE | 2018-10-23 20:47 | RAD_ITS ---
STUDY: X-RAY - LEFT WRIST REASON FOR EXAM: Male, 48 years old. Trauma TECHNIQUE: 3 view(s) of the wrist were obtained. COMPARISON: None. FINDINGS: Normal visualized distal radius and ulna. Normal radiocarpal articulation. Normal distal radioulnar articulation. Normal carpal bones. Normal carpal articulations. Normal carpometacarpal articulation of the thumb. Normal second through fifth carpometacarpal articulations. Normal visualized metacarpal bones. The soft tissue structures are unremarkable. RAD/Wrist min 3 Views IMPRESSION: Normal x-ray examination of the wrist. Electronically Signed: Dennis Loo MD at 22:08 EST , Service support ,
--- NOTE | 2018-10-23 21:13 | RAD_ITS ---
STUDY: X-RAY - LEFT ELBOW REASON FOR EXAM: Male, 48 years old. Trauma TECHNIQUE: 3 view(s) of the elbow. COMPARISON: None. FINDINGS: There is no evidence of acute fracture or dislocation. There are several small smooth margined calcifications of the antecubital fossa noted on the lateral projection. RAD/Elbow min 3 Views IMPRESSION: No evidence of acute fracture or dislocation. There appears to be an old healed supracondylar fracture of the distal humerus. Electronically Signed: Dennis Loo MD at 22:06 EST , Service support ,
[2018-10-23] MEDS: oxyCODONE 5 MG Tablet PO (21:22)
--- NOTE | 2018-10-23 21:46 | ED.VISSUMM ---
- ER Visit Summary Date of Service: 10/23/18 Chief Complaint: [Fall and injury to left arm] History of Present Illness: The patient is a 48 M [presents the emergency department after sustaining a fall this afternoon approximately 4 PM. Patient states that he was coming down steps when he tripped over his cat and landed on his left side. Patient does not think he struck his head. He had no loss of consciousness. Patient complains of pain in his left elbow mostly and also his left wrist. Patient is right-hand dominant. Patient does have a prior history of hypertension, GERD, A. fib, SVT, anxiety, high cholesterol. Patient is on Eliquis. Patient denies any neck pain, chest pain, or abdominal pain. Patient has been ambulatory. Patient denies any headache.] Physical Examination: [HEENT-PERRLA, EOMI. Cranial nerves II through XII grossly intact. TMs clear. Mucous membranes moist. No adenopathy. No external evidence of trauma to his head. Patient has no C-spine tenderness on palpation. Normal active range of motion is painless. Cardiovascular-regular rate and rhythm without murmur or ectopy Lungs-clear to auscultation, chest wall stable without crepitus or subcu emphysema Abdomen-normoactive bowel sounds, soft, nontender, no rebound or rigidity, no peritoneal signs. Extremities-intact ?4, normal range of motion, normal pulses. Left arm-patient has some diffuse tenderness about the left elbow however there is no obvious deformity. Patient has some minimal soft tissue swelling. Patient also with some mild diffuse tenderness about the wrist. He is neurovascular intact with normal range of motion of all digits.] Test Results: [X-rays of the left elbow and left wrist were obtained which showed no acute fractures.] Emergency Department Course and Treatment: [Patient will be given a wrist splint and a sling. ] Treatment Plan: [Patient given a prescription for Percocet for severe pain. Patient advised to follow-up with primary care physician in 5-7 days] Disposition: [Discharged home in stable condition] Impression: [Mechanical fall Left elbow contusion Left wrist sprain] This note was generated with [employer] software. It may contain incorrect words, spelling, and punctuation that were not noted in review of the chart prior to signing ED Disposition - Plan for ED Patient: Chief Complaint: Fall Referrals: [facility] Doctor,Out of [Primary Care Provider] -
--- NOTE | 2018-10-23 21:49 | ED.DEP ---
ED Disposition - Plan for ED Patient: Chief Complaint: Fall Instructions: ED Mechanical Fall, ED Contusion Elbow, ED Sprain Wrist Prescriptions: Oxycodone HCl/Acetaminophen [Percocet 5/325] 1 tab PO Q6H PRN PRN 3 Days #12 tab PRN Reason: Pain Referrals: [facility] Doctor,Out of [Primary Care Provider] - 5-7 Days
[2018-10-23 22:44] VITALS: BP 140/93; PULSE 73; RESP 16; O2SAT 98
== END 2018-10-23 22:44 | disposition home or self-care (01) ==
PROVIDERS: Emergency Provider Emergency Medicine
DX: S50.02XA Contusion of left elbow, initial encounter (principal); S63.502A Unspecified sprain of left wrist, initial encounter; W01.0XXA Fall on same level from slipping, tripping and stumbling without subsequent striking against object, initial encounter; Y93.89 Activity, other specified; Y92.009 Unspecified place in unspecified non-institutional (private) residence as the place of occurrence of the external cause; I10 Essential (primary) hypertension; I48.91 Unspecified atrial fibrillation; I47.1 Supraventricular tachycardia; K21.9 Gastro-esophageal reflux disease without esophagitis; E78.00 Pure hypercholesterolemia, unspecified; F41.9 Anxiety disorder, unspecified; Z79.01 Long term (current) use of anticoagulants; Z79.899 Other long term (current) drug therapy
CPT/HCPCS: 73080; 73110; 99284

== ENCOUNTER 2018-10-27 16:02 | Emergency (ER) | payer MEDICARE, SELFPAY ==
[2018-10-27] VITALS (9 sets, daily range): BP systolic 134–159; BP diastolic 92–127; PULSE 82–131; RESP 15–32; TEMP 37; O2SAT 95–100; BMI 32.3
--- NOTE | 2018-10-27 16:29 | EKG12_ITS ---
Test Reason : CP Blood Pressure : / mmHG Vent. Rate : 115 BPM Atrial Rate : 115 BPM P-R Int : 170 ms QRS Dur : 076 ms QT Int : 324 ms P-R-T Axes : 018 007 023 degrees QTc Int : 448 ms Sinus tachycardia Otherwise normal ECG Confirmed by INDER CONNOR, ASAEL ([id number]), television news video editor RICCO LUZ ([id number]) on 10/29/2018 2:37:16 PM Referred By: ZAKI Confirmed By:ASAEL LOVING MD
--- NOTE | 2018-10-27 16:30 | CT_ITS ---
STUDY: CT BRAIN WITHOUT CONTRAST REASON FOR EXAM: Male, 48 years old. Right-sided weakness. TIA. RADIATION DOSAGE (If Supplied By Facility): CTDIvol = ( 44.99 ) mGy, DLP = ( 779.24 ) mGycm TECHNIQUE: Transaxial CT imaging of the brain was performed without administration of intravenous contrast material. Individualized dose optimization techniques were used for this CT. COMPARISON: September 10, 2017 FINDINGS: Normal soft tissue structures. Normal calvarium. Normal size ventricles and extra-axial spaces for the patient's age. Normal white matter tracts of the cerebral hemispheres. Normal basal ganglia and thalami. Normal brainstem. Normal cerebellum. There is no intracranial hemorrhage. There are no findings of an acute ischemic infarction. Mucosal thickening in the right maxillary sinus. CT/Brain/Head without Contrast IMPRESSION: Normal unenhanced CT scan of the brain. Electronically Signed: Wyatt Kwon MD at 17:24 EST , Service support ,
[2018-10-27] MEDS: LORazepam 2 MG/ML Syringe 1 MG IV (16:39)
--- NOTE | 2018-10-27 16:50 | RAD_ITS ---
STUDY: X-RAY CHEST REASON FOR EXAM: Male, 48 years old. Right-sided weakness. Chest pain TECHNIQUE: PA and lateral views of the chest. COMPARISON: July 18, 2018 FINDINGS: There are monitoring devices. The lungs are clear and expanded. There is no demonstrated pleural abnormality. Normal size heart. Normal mediastinum and ruben. Normal visualized pulmonary arteries. Normal visualized aortic arch and descending thoracic aorta. Normal visualized thoracic spine. Normal visualized ribs, clavicles, and shoulders. There is no demonstrated abnormality of the visualized soft tissue structures of the upper abdomen. RAD/Chest PA and Lateral IMPRESSION: Normal x-ray examination of the chest. Electronically Signed: Wyatt Kwon MD at 17:57 EST , Service support ,
[2018-10-27 17:11] LABS: Absolute Neutrophil Count 2.6 X10^3/uL (2.0-7.7); Anion Gap 11 (5-15); BUN 8 mg/dL (7-18); BUN/Creat Ratio 8.3 RATIO (10-20); Basophil# 0.02 X10^3/uL; Basophil% 0.4 % (0-1); Chloride 111 mmol/L (98-107); Creatinine, Serum 0.96 mg/dL (0.70-1.30); EST Glomerular Filtration Rate 88 mL/min (>60); Eosinophil# 0.06 X10^3/uL; Eosinophils% 1.2 % (0-5); Est Glom Filt Rate - Afr Amer 107 mL/min (>60); Estimated Creatinine Clearance 100.23 ml/min; Glucose 113 mg/dL (74-106); Hematocrit 42.3 % (40-54); Hemoglobin 13.3 g/dl (13.0-16.5); Lymphocyte % 36.7 % (19-41); Mean Corp Hgb Conc 31.4 g/gl (32-36); Mean Corpuscular Volume 79.4 fL (80-94); Mean Platelet Vol. 8.9 fl (6.2-12.0); Monocyte% 8.2 % (0-10); Neutrophil # 2.61 X10^3/uL (2.7-7.7); Neutrophil % 53.3 % (47-70); Platelet Count 284 K/mm3 (150-450); Potassium 3.5 mmol/L (3.5-5.1); RBC Distribution Width CV 16.1 % (11.6-14.6); RBC Distribution Width SD 46.5 fl (35.1-43.9); Red Blood Count 5.33 M/mm3 (4.6-6.2); Sodium Level 143 mmol/L (136-145); White Blood Count 4.9 K/mm3 (4.4-11.0)
--- NOTE | 2018-10-27 17:12 | ED.RN ---
pt c/o IV hurting. IV removed.
--- NOTE | 2018-10-27 17:21 | EKG12_ITS ---
Test Reason : Blood Pressure : / mmHG Vent. Rate : 106 BPM Atrial Rate : 106 BPM P-R Int : 168 ms QRS Dur : 074 ms QT Int : 338 ms P-R-T Axes : 008 000 010 degrees QTc Int : 448 ms Sinus tachycardia Otherwise normal ECG Confirmed by INDER CONNOR, ASAEL ([id number]), metropolitan editor RICCO LUZ ([id number]) on 10/29/2018 2:38:50 PM Referred By: ZAKI Confirmed By:ASAEL LOVING MD
[2018-10-27 17:22] LABS: POSITIVE COUNT NO; POSITIVE DIFFERENTIAL NO; POSITIVE MORPHOLOGY NO
[2018-10-27] MEDS: Ondansetron 4 MG/2 ML Vial IV (18:32)
--- NOTE | 2018-10-27 19:08 | CT_ITS ---
STUDY: CTA CHEST REASON FOR EXAM: Male, 48 years old. Chest pain. Weakness. RADIATION DOSAGE (If Supplied By Facility): CTDIvol = ( 18.16 ) mGy, DLP = ( 855.42 ) mGycm TECHNIQUE: The examination was performed with the intravenous administration of 100 ml of Isovue 370 contrast material. Post-processing of the angiographic images was performed, with multiplanar reformation and 3D reconstruction. Individualized dose optimization techniques were used for this CT. COMPARISON: Chest x-ray. FINDINGS: Normal enhancement of the main pulmonary artery and right and left pulmonary arteries. Normal enhancement of the bilateral peripheral pulmonary arteries. There is no demonstrated pulmonary embolism. There is aneurysmal dilatation of the ascending aorta. The transverse diameter of the ascending aorta measures 48 mm's. There is no demonstrated aortic dissection. There are aortic valvular calcifications. Normal mediastinum. Normal hilar regions. Normal visualized trachea and bronchi. The lungs are well expanded. Normal pulmonary parenchyma. Normal pleura. Normal chest wall structures. Normal osseous structures. Normal visualized upper abdomen. CT/CTA Chest W/WO Contrast IMPRESSION: CTA chest examination, without a demonstrated pulmonary embolism or arterial dissection. Aneurysmal dilatation of the ascending aorta. Electronically Signed: Wyatt Kwon MD at 19:53 EST , Service support ,
[2018-10-27] MEDS: 0.9% Normal Saline 1,000 ML 999 ML IV (20:42)
[2018-10-27] MEDS: Mag Hydrox/Al Hydrox/Simeth 30 ML UDC PO (20:42)
[2018-10-27] MEDS: Metoprolol Tartrate 5 MG/5 ML Vial IV (23:08)
--- NOTE | 2018-10-27 23:49 | ED.VISSUMM ---
- ER Visit Summary Date of Service: 10/27/18 Chief Complaint: Chest pain History of Present Illness: The patient is a 48 M who states that at 1515 hrs. he suddenly got lightheaded while laying in bed. He states his blood pressure is up. Going on the steps his right knee gave out he began to feel worse he developed chest pain which he states is maybe a little bit worse than the daily chest pain he occurs. States he recently followed up with his protozoology teacher and had his lisinopril up to which seemed to help his daily chest pain but now it is back. He notes tingling in his hands mouth and feet. History of SVT and A. fib he is on sotalol as well as Eliquis. He has known thoracic aortic aneurysm which is been followed and has been stable. He has had several cardiac cath which have been negative. Physical Examination: Afebrile noted tachycardia at 118 blood pressure 149/90 600% on room air tachypneic at 30 Gen: Well-nourished well-developed Head: Normocephalic contusion and abrasion of the right parietal scalp Eyes: Perrl EOMI ENT: TMs clear no rhinorrhea moist mucous membranes Neck: Supple no lymphadenopathy no JVD nontender CVS: Regular rate tachycardic rhythm no murmurs normal S1-S2 Respiratory: Per ventilating clear to auscultation bilaterally chest nontender Abdomen: Soft nontender nondistended normal bowel sounds no masses Back: Nontender Extremity: Nontender no edema Skin: Normal color no rash Neuro: alert orientated ?3 CN II-XII intact normal strength sensation reflexes gait cerebellar Psych: Anxious Test Results: EKG shows sinus tachycardia at 106. CBC chemistries troponin and troponin were normal. Chest x-ray showed a stable mediastinum. Patient continues to be tachycardic sometimes up to 130 particularly with standing and feeling weak. CTA of the chest was obtained which demonstrates no PE and a stable thoracic aortic aneurysm. CT the brain was also obtained due to his lightheadedness and evidence of a abrasion/contusion in the right parietal scalp. Emergency Department Course and Treatment: Patient received Ativan IV fluids. He continued to have pain and states that morphine is what he needs to make his pain better. I do not see any life-threatening cause for his pain. This is a daily pain that is in his own words slightly worse than normal. I gave him some metoprolol which slowed his heart rate down into the 80s and he states he still does not feel any better with that. I do not see an acute reason to admit the patient to the hospital. He is in a sinus rhythm. Negative troponins. PE or dissection. No pneumothorax. No pneumonia. I recommend he follow-up with his doctors. Impression: 1. Chest pain 2. Weakness This note was generated with [employer] dictation software. It may contain incorrect words, spelling, and punctuation that were not noted in review of the chart prior to signing ED Disposition - Plan for ED Patient: Disposition: Home or Assisted Living Chief Complaint: Chest Pain Instructions: ED Chest Pain Atypical Unkn Cause Additional Instructions: I would recommend you follow-up with your primary care doctor and your protozoology teacher
--- NOTE | 2018-10-27 23:55 | ED.DCSUM_ITS ---
- ER Visit Summary Date of Service: 10/27/18 Chief Complaint: Chest pain History of Present Illness: The patient is a 48 M who states that at 1515 hrs. he suddenly got lightheaded while laying in bed. He states his blood pressure is up. Going on the steps his right knee gave out he began to feel worse he developed chest pain which he states is maybe a little bit worse than the daily chest pain he occurs. States he recently followed up with his water meter installer and had his lisinopril up to which seemed to help his daily chest pain but now it is back. He notes tingling in his hands mouth and feet. History of SVT and A. fib he is on sotalol as well as Eliquis. He has known thoracic aortic aneurysm wh ich is been followed and has been stable. He has had several cardiac cath which have been negative. Physical Examination: Afebrile noted tachycardia at 118 blood pressure 149/90 600% on room air tachypneic at 30 Gen: Well-nourished well-developed Head: Normocephalic contusion and abrasion of the right parietal scalp Eyes: Perrl EOMI ENT: TMs clear no rhinorrhea moist mucous membranes Neck: Supple no lymphadenopathy no JVD nontender CVS: Regular rate tachycardic rhythm no murmurs normal S1-S2 Respiratory: Per ventilating clear to auscultation bilaterally chest nontender Abdomen: Soft nontender nondistended normal bowel sounds no masses Back: Nontender Extremity: Nontender no edema Skin: Normal color no rash Neuro: alert orientated ?3 CN II-XII intact normal strength sensation reflexes gait cerebellar Psych: Anxious Test Results: EKG shows sinus tachycardia at 106. CBC chemistries troponin and troponin were normal. Chest x-ray showed a stable mediastinum. Patient continues to be tachycardic sometimes up to 130 particularly with standing and feeling weak. CTA of the chest was obtained which demonstrates no PE and a stable thoracic aortic aneurysm. CT the brain was also obtained due to his lightheadedness and evidence of a abrasion/contusion in the right parietal scalp. Emergency Department Course and Treatment: Patient received Ativan IV fluids. He continued to have pain and states that morphine is what he needs to make his pain better. I do not see any life-threatening cause for his pain. This is a daily pain that is in his own words slightly worse than normal. I gave him some metoprolol which slowed his heart rate down into the 80s and he states he still does not feel any better with that. I do not see an acute reason to admit the patient to the hospital. He is in a sinus rhythm. Negative troponins. PE or dissection. No pneumothorax. No pneumonia. I recommend he follow-up with his doctors. Impression: 1. Chest pain 2. Weakness This note was generated with [employer] dictation software. It may contain incorrect words, spelling, and punctuation that were not noted in review of the chart prior to signing ED Disposition - Plan for ED Patient: Disposition: Home or Assisted Living Chief Complaint: Chest Pain Instructions: ED Chest Pain Atypical Unkn Cause Additional Instructions: I would recommend you follow-up with your primary care doctor and your water meter installer
== END 2018-10-28 00:03 | disposition home or self-care (01) ==
PROVIDERS: Emergency Provider Emergency Medicine
DX: R07.9 Chest pain, unspecified (principal); R53.1 Weakness; I10 Essential (primary) hypertension; I48.91 Unspecified atrial fibrillation; I47.1 Supraventricular tachycardia; I71.2 Thoracic aortic aneurysm, without rupture; K21.9 Gastro-esophageal reflux disease without esophagitis; Z86.73 Personal history of transient ischemic attack (TIA), and cerebral infarction without residual deficits; Z79.01 Long term (current) use of anticoagulants; Z79.899 Other long term (current) drug therapy
CPT/HCPCS: 36415; 70450; 71046; 71275; 80048; 84484; 85025; 93005; 96361; 96374; 96375; 99285; J7030; Q9967; A4216; J2405

== ENCOUNTER 2018-11-05 23:31 | Emergency (ER) | payer MEDICARE, SELFPAY ==
[2018-10-27 16:03] VITALS: BMI 32.3
[2018-11-05 23:33] VITALS: BP 120/92; PULSE 84; RESP 17; TEMP 36.9; O2SAT 100; BMI 33.3
--- NOTE | 2018-11-06 00:03 | CT_ITS ---
STUDY: CT ABDOMEN AND PELVIS WITHOUT CONTRAST REASON FOR EXAM: Male, 48 years old. Right flank pain, nausea and vomiting RADIATION DOSAGE (If Supplied By Facility): CTDIvol = ( 17.61 ) mGy, DLP = ( 1003.15 ) mGycm TECHNIQUE: Transaxial images were obtained from the dome of the diaphragm to the symphysis pubis without oral contrast, and without intravenous contrast. Sagittal and coronal images were reconstructed. Individualized dose optimization techniques were used for this CT. COMPARISON: None. FINDINGS: Minimal dependent atelectasis versus scar formation at the left lung base. The visualized portions of the heart are within normal limits. Normal liver. Gallbladder is contracted. No biliary duct dilatation. Normal spleen. Normal pancreas. Normal bilateral adrenal glands. Calcifications within the right renal pelvis measuring up to 4 mm in the lower pole. No hydronephrosis or hydroureter. Left kidney and ureter are normal. Normal visualized stomach. Normal small intestine. Normal colon. The appendix is visualized and appears normal. Normal abdominal aorta. Normal inferior vena cava. Normal retroperitoneum. Normal urinary bladder. Normal abdominal wall. Postoperative change from L4-L5 posterior spinal fusion with no evidence of periinstrumentation lucency. CT/Abdomen/Pelvis without Cont IMPRESSION: Nonobstructing right renal calculi measuring up to 4 mm. Electronically Signed: Rodrick Ayala MD at 0:45 EST Tel , Service support ,
[2018-11-06] MEDS: 0.9% Normal Saline 1,000 ML 1000 ML IV (00:13)
[2018-11-06] MEDS: Ondansetron 4 MG/2 ML Vial IV (00:13)
[2018-11-06] MEDS: Dicyclomine 10 MG Capsule 20 MG PO (00:21)
[2018-11-06 00:37] LABS: Absolute Lymphocyte Count 2.44 X10^3/ul (0.83-4.51); Basophil# 0.06 X10^3/uL; Basophil% 0.9 % (0-1); Eosinophil# 0.13 X10^3/uL; Hematocrit 39.8 % (40-54); Hemoglobin 12.4 g/dl (13.0-16.5); Lymphocyte # 2.44 X10^3/ul (4.0); Lymphocyte % 37.8 % (19-41); Mean Corp Hgb Conc 31.2 g/gl (32-36); Mean Corpuscular Hgb 25.2 pg (27.0-32.0); Mean Corpuscular Volume 80.9 fL (80-94); Mean Platelet Vol. 9.2 fl (6.2-12.0); Monocyte# 0.81 X10^3/uL; Monocyte% 12.5 % (0-10); Neutrophil # 2.99 X10^3/uL (2.7-7.7); Neutrophil % 46.3 % (47-70); Platelet Count 354 K/mm3 (150-450); RBC Distribution Width SD 46.9 fl (35.1-43.9); Red Blood Count 4.92 M/mm3 (4.6-6.2); White Blood Count 6.5 K/mm3 (4.4-11.0)
[2018-11-06 00:38] LABS: POSITIVE COUNT NO; POSITIVE DIFFERENTIAL NO; POSITIVE MORPHOLOGY NO
[2018-11-06 00:40] LABS: AST(SGOT) 25 U/L (15-37); Alanine Aminotransfer ALT/SGPT 36 U/L (16-61); Albumin, Serum 4.1 g/dL (3.2-5.0); Alkaline Phosphatase 122 U/L (45-117); Anion Gap 7 (5-15); BUN 16 mg/dL (7-18); BUN/Creat Ratio 18.5 RATIO (10-20); Bilirubin, Direct 0.06 mg/dL (0.00-0.30); Calcium,Total 8.6 mg/dL (8.5-10.1); Chloride 111 mmol/L (98-107); Creatinine, Serum 0.86 mg/dL (0.70-1.30); EST Glomerular Filtration Rate 100 mL/min (>60); Est Glom Filt Rate - Afr Amer 121 mL/min (>60); Estimated Creatinine Clearance 111.88 ml/min; Globulin 3.6 g/dL (2.2-4.2); Glucose 73 mg/dL (74-106); Lipase 203 U/L (73-393); Potassium 3.8 mmol/L (3.5-5.1); Protein, Total 7.7 g/dL (6.4-8.2); Sodium Level 143 mmol/L (136-145)
--- NOTE | 2018-11-06 01:11 | ED.RN ---
PT'S IV BECAME PAINFUL AND WAS D/C'D. DR. DAVALOS AWARE OF SAME. PT C/O PAIN IS WORSE. NO NEW ORDERS AT THIS TIME.
[2018-11-06 01:13] LABS: Bacteria 0 SEEN /hpf (None Seen); Color, Urine Yellow (Yellow); Glucose, Dipstick Normal (Normal); Ketone-Dipstick Negative (Negative); Leukocyte Esterase-Dipstick Negative /ul (Negative); Mucous, Urine 0 SEEN /hpf (<or=2+); Nitrite-Dipstick Negative (Negative); Occult Blood-Urine Negative /ul (Negative); Protein-Dipstick Negative (Negative); Red Blood Cells-Urine 0 SEEN /hpf (0-5); Specific Gravity, Urine 1.015 (1.002-1.030); Squamous Epithelial Cells - UA 0 SEEN /hpf (0-5); Urine Bilirubin Dipstick Negative (Negative); Urine Clarity Clear (Clear); Urine Urobilinogen Normal (Normal); White Blood Cells 0 SEEN /hpf (0-5)
[2018-11-06] MEDS: oxyCODONE 5 MG Tablet PO (01:28)
[2018-11-06 01:32] VITALS: BP 126/86; PULSE 63; RESP 18; O2SAT 98
--- NOTE | 2018-11-06 01:39 | ED.VISSUMM ---
- ER Visit Summary Date of Service: 11/06/18 Chief Complaint: Abdominal pain nausea and diarrhea History of Present Illness: The patient is a 48 M who presents with abdominal pain nausea and diarrhea. His symptoms began suddenly about an hour ago. He has had 3 episodes of watery diarrhea. He did have some bright red blood mixed in with the last episode. He also notes some urinary frequency. He complains of right flank and right abdominal pain. He describes his pain as cramping. He does note prior history of kidney stones but states he usually does not have cramping type pain or diarrhea with this. No fevers. No vomiting. Physical Examination: Afebrile vitals are normal Moist mucous membranes Heart regular rate and rhythm Lungs are clear Abdomen soft nondistended he has some diffuse abdominal tenderness more so on the right as well as right CVA tenderness Test Results: Laboratory studies unremarkable including CBC CMP lipase urinalysis. CT the abdomen pelvis shows nonobstructing right renal calculi but otherwise normal. Emergency Department Course and Treatment: Patient was initially given IV fluids Bentyl and Zofran. I felt his abdominal pain and cramping was most likely related to intestinal spasm associated with his diarrhea. He reported no change with Bentyl. He was given a single dose of oxycodone here. Given his negative workup as above stable vitals I do not believe this is due to any acute surgical process and I do not see an indication for hospitalization. He was advised to follow-up as an outpatient. He understands to return for new or worsening symptoms. He was discharged. Treatment Plan: [] Disposition: Discharge Impression: Abdominal pain Diarrhea This note was generated with [employer] dictation software. It may contain incorrect words, spelling, and punctuation that were not noted in review of the chart prior to signing ED Disposition - Plan for ED Patient: Chief Complaint: Flank Pain Referrals: Ar Mckeon MD [Primary Care Provider] -
--- NOTE | 2018-11-06 01:41 | ED.DEP ---
ED Disposition - Plan for ED Patient: Chief Complaint: Flank Pain Instructions: ED Abdominal Pain Unkn Cause Male, ED Vomiting Diarrhea Nonspecific Ad Referrals: Ar Mckeon MD [Primary Care Provider] -
--- OUTSIDE RECORDS SUMMARY | 2019-01-10 17:27 | XMS RPT_ITS ---
:1970 Author Organization [place] Support Name Relationship Address Phone JONAH GARCIA Unavailable Unavailable Unavailable LUNAATTILA ORTIZ Unavailable Unavailable Unavailable JONAH GARCIA Unavailable Unavailable + JONAH GARCIA Unavailable Unavailable + D Unavailable Unavailable Unavailable JONAH GARCIA Unavailable [address] + [place] [address] D Unavailable Unavailable Unavailable JONAH GARCIA Unavailable [address] + [place] [address] D Unavailable Unavailable Unavailable JONAH GARCIA Unavailable [address] + [place] [address] Jonah Laguerre Unavailable Unavailable + JONAH GARCIA Unavailable [address] + [place] [address] (FIANCEE)JONAH Unavailable Unavailable + JONAH GARCIA Unavailable Unavailable + JONAH GARCIA Unavailable [address] + [place] [address] JONAH GARCIA Unavailable [address] + [place] [address] D Unavailable Unavailable Unavailable JONAH GARCIA Unavailable [address] + [place] [address] D Unavailable Unavailable Unavailable JONAH GARCIA Unavailable [address] + [place] [address] JONAH GARCIA Unavailable Unavailable + JONAH GARCIA Unavailable Unavailable + JONAH GARCIA Unavailable Unavailable Unavailable ATTILA DEL CID Unavailable Unavailable Unavailable JONAH GARCIA Unavailable Unavailable + JONAH GARCIA Unavailable Unavailable + EDILBERTO, JONAH Unavailable Unavailable + EDILBERTO, JONAH Unavailable Unavailable + EDILBERTO, JONAH Unavailable Unavailable + D Unavailable Unavailable Unavailable EDILBERTO, JONAH Unavailable [address] + [place] [address] EDILBERTO, JONAH Unavailable Unavailable + EDILBERTO, JONAH Unavailable Unavailable + Gordan, Jonah Unavailable Unavailable + Gordan, Jonah Unavailable Unavailable + EDILBERTO, JONAH Unavailable Unavailable + EDILBERTO, JONAH Unavailable Unavailable + EDILBERTO, JONAH Unavailable Unavailable + D Unavailable Unavailable Unavailable EDILBERTO, JONAH Unavailable [address] + [place] [address] D Unavailable Unavailable Unavailable EDILBERTO, JONAH Unavailable [address] + [place] [address] D Unavailable Unavailable Unavailable EDILBERTO, JONAH Unavailable [address] + [place] [address] D Unavailable Unavailable Unavailable EDILBERTO, JONAH Unavailable [address] + [place] [address] D Unavailable Unavailable Unavailable EDILBERTO, JONAH Unavailable [address] + [place] [address] D Unavailable Unavailable Unavailable EDILBERTO, JONAH Unavailable [address] + [place] [address] D Unavailable Unavailable Unavailable EDILBERTO, JONAH Unavailable [address] + [place] [address] D Unavailable Unavailable Unavailable EDILBERTO, JONAH Unavailable [address] + [place] [address] D Unavailable Unavailable Unavailable EDILBERTO, JONAH Unavailable [address] + [place] [address] Bakcherise, Cally Unavailable Unavailable + Gordan, Jonah Unavailable Unavailable + D Unavailable Unavailable Unavailable EDILBERTO, JONAH Unavailable [address] + [place] [address] D Unavailable Unavailable Unavailable EDILBERTO, JONAH Unavailable [address] + [place] [address] D Unavailable Unavailable Unavailable EDILBERTO, JONAH Unavailable [address] + [place] [address] D Unavailable Unavailable Unavailable EDILBERTO, JONAH Unavailable [address] + [place] [address] D Unavailable Unavailable Unavailable EDILBERTO, JONAH Unavailable [address] + [place] [address] EDILBERTO, JONAH Unavailable Unavailable Unavailable MARIA EUGENIA ATTILA Unavailable Unavailable Unavailable D Unavailable Unavailable Unavailable EDILBERTO, JONAH Unavailable [address] + [place] [address] D Unavailable Unavailable Unavailable EDILBERTO, JONAH Unavailable [address] + [place] [address] D Unavailable Unavailable Unavailable EDILBERTO, JONAH Unavailable [address] + [place] [address] D Unavailable Unavailable Unavailable EDILBERTO, JONAH Unavailable [address] + [place] [address] D Unavailable Unavailable Unavailable EDILBERTO, JONAH Unavailable [address] + [place] [address] D Unavailable Unavailable Unavailable EDILBERTO, JONAH Unavailable [address] + [place] [address] D Unavailable Unavailable Unavailable EDILBERTO, JONAH Unavailable [address] + [place] [address] D Unavailable Unavailable Unavailable EDILBERTO, JONAH Unavailable [address] + [place] [address] D Unavailable Unavailable Unavailable EDILBERTO, JONAH Unavailable [address] + [place] [address] D Unavailable Unavailable Unavailable EDILBERTO, JONAH Unavailable [address] + [place] [address] D Unavailable Unavailable Unavailable EDILBERTO, JONAH Unavailable [address] + [place] [address] D Unavailable Unavailable Unavailable EDILBERTO, JONHA Unavailable [address] + [place] [address] D Unavailable Unavailable Unavailable EDILBERTO, JONAH Unavailable [address] + [place] [address] D Unavailable Unavailable Unavailable EDILBERTO, JONAH Unavailable [address] + [place] [address] D Unavailable Unavailable Unavailable EDILBERTO, JONAH Unavailable [address] + [place] [address] D Unavailable Unavailable Unavailable EDILBERTO, JONAH Unavailable [address] + [place] [address] D Unavailable Unavailable Unavailable EDILBERTO, JONAH Unavailable [address] + [place] [address] D Unavailable Unavailable Unavailable EDILBERTO, JONAH Unavailable [address] + [place] [address] D Unavailable Unavailable Unavailable EDILBERTO, JONAH Unavailable [address] + [place] [address] D Unavailable Unavailable Unavailable EDILBERTO, JONAH Unavailable [address] + [place] [address] D Unavailable Unavailable Unavailable EDILBERTO, JONAH Unavailable [address] + [place] [address] D Unavailable Unavailable Unavailable EDILBERTO, JONAH Unavailable [address] + [place] [address] D Unavailable Unavailable Unavailable EDILBERTO, JONAH Unavailable [address] + [place] [address] D Unavailable Unavailable Unavailable EDILBERTO, JONAH Unavailable [address] + [place] [address] D Unavailable Unavailable Unavailable EDILBERTO, JONAH Unavailable [address] + [place] [address] D Unavailable Unavailable Unavailable EDILBERTO, JONAH Unavailable [address] + [place] [address] D Unavailable Unavailable Unavailable EDILBERTO, JONAH Unavailable [address] + [place] [address] D Unavailable Unavailable Unavailable EDILBERTO, JONAH Unavailable [address] + [place] [address] D Unavailable Unavailable Unavailable EDILBERTO, JONAH Unavailable [address] + [place] [address] D Unavailable Unavailable Unavailable EDILBERTO, JONAH Unavailable [address] + [place] [address] D Unavailable Unavailable Unavailable EDILBERTO, JONAH Unavailable [address] + [place] [address] D Unavailable Unavailable Unavailable EDILBERTO, JONAH Unavailable [address] + [place] [address] D Unavailable Unavailable Unavailable EDILBERTO, JONAH Unavailable [address] + [place] [address] D Unavailable Unavailable Unavailable EDILBERTO, JONAH Unavailable [address] + [place] [address] D Unavailable Unavailable Unavailable EDILBERTO, JONAH Unavailable [address] + [place] [address] D Unavailable Unavailable Unavailable EDILBERTO, JONAH Unavailable [address] + [place] [address] D Unavailable Unavailable Unavailable EDILBERTO, JONAH Unavailable [address] + [place] [address] D Unavailable Unavailable Unavailable EDILBERTO, JONAH Unavailable [address] + [place] [address] D Unavailable Unavailable Unavailable EDILBERTO, JONAH Unavailable [address] + [place] [address] D Unavailable Unavailable Unavailable EDILBERTO, JONAH Unavailable [address] + [place] [address] D Unavailable Unavailable Unavailable EDILBERTO, JONAH Unavailable [address] + [place] [address] D Unavailable Unavailable Unavailable EDILBERTO, JONAH Unavailable [address] + [place] [address] D Unavailable Unavailable Unavailable EDILBERTO, JONAH Unavailable [address] + [place] [address] D Unavailable Unavailable Unavailable EDILBERTO, JONAH Unavailable [address] + [place] [address] D Unavailable Unavailable Unavailable EDILBERTO, JONAH Unavailable [address] + [place] [address] D Unavailable Unavailable Unavailable EDILBERTO, JONAH Unavailable [address] + [place] [address] D Unavailable Unavailable Unavailable EDILBERTO, JONAH Unavailable [address] + [place] [address] D Unavailable Unavailable Unavailable EDILBERTO, JONAH Unavailable Unavailable + D Unavailable Unavailable Unavailable JONAH GARCIA Unavailable Unavailable + JONAH GARCIA Unavailable Unavailable Unavailable ATTILA DEL CID Unavailable Unavailable Unavailable D Unavailable Unavailable Unavailable JONAH GARCIA Unavailable Unavailable + D Unavailable Unavailable Unavailable JONAH GARCIA Unavailable NA + [place], [place] D Unavailable Unavailable Unavailable JONAH GARCIA Unavailable NA + [place], [place] D Unavailable Unavailable Unavailable JONAH GARCIA Unavailable NA + [place], [place] D Unavailable Unavailable Unavailable JONAH GARCIA Unavailable NA + [place], [place] D Unavailable Unavailable Unavailable JONAH GARCIA Unavailable NA + [place], [place] D Unavailable Unavailable Unavailable JONAH GARCIA Unavailable NA + [place], [place] D Unavailable Unavailable Unavailable JONAH GARCIA Unavailable NA + [place], [place] D Unavailable Unavailable Unavailable JONAH GARCIA Unavailable NA + [place], [place] D Unavailable Unavailable Unavailable JONAH GARCIA Unavailable NA + [place], [place] D Unavailable Unavailable Unavailable JONAH GARCIA Unavailable NA + [place], [place] D Unavailable Unavailable Unavailable JONAH GARCIA Unavailable NA + [place], [place] Care Team Providers Name Role Phone Jona PEREZ Attending Unavailable TALAMPAS, VANESSA Referring Unavailable IMCA Primary Care Unavailable Jona PEREZ Attending Unavailable TALAMPAS, VANESSA Referring Unavailable TALAMPAS, VANESSA Primary Care Unavailable KOVACHIK, LI Attending Unavailable TALAMPAS, VANESSA Referring Unavailable IMCA Primary Care Unavailable KOVACHIK, LI Referring Unavailable IMCA Primary Care Unavailable Jona RAGSDALE Attending Unavailable IMCA Referring Unavailable IMCA Primary Care Unavailable Jona RAGSDALE Attending Unavailable IMCA Referring Unavailable IMCA Primary Care Unavailable Jona PEREZ Admitting Unavailable Jona PEREZ Attending Unavailable IMCA Primary Care Unavailable Jona PEREZ Referring Unavailable Jona PEREZ Referring Unavailable IMCA Primary Care Unavailable Jona PEREZ Attending Unavailable IMSTEPHANIE Referring Unavailable IMCA Primary Care Unavailable IMCA Referring Unavailable IMCA Primary Care Unavailable Jona PEREZ Admitting Unavailable Jona PEREZ Attending Unavailable IMCA Primary Care Unavailable Jona PEREZ Referring Unavailable IMCA Referring Unavailable IMCA Primary Care Unavailable Jona PEREZ Admitting Unavailable Jona PEREZ Attending Unavailable Jona PEREZ Referring Unavailable IMCA Primary Care Unavailable Jona PEREZ Attending Unavailable VANESSA GONZALEZ Referring Unavailable IMCA Primary Care Unavailable IMCA Primary Care Unavailable SHANIQUE DELGADILLO Attending Unavailable IMCA Primary Care Unavailable RENETTA MACIAS Attending Unavailable MICHEAL WILKINSON Referring Unavailable MICHEAL WILKINSON Attending Unavailable MICHEAL WILKINSON Attending Unavailable CAMRON PEREZ Referring Unavailable CAMRON PEREZ Referring Unavailable Yenifer, Wyatt Referring Unavailable Giovannaie, Wyatt Primary Care Unavailable Fernando Meyer Attending Unavailable PROVIDER, UNKNOWN Referring Unavailable No, PCP Primary Care Unavailable René Ruiz Attending Unavailable René Ruiz Attending Unavailable PROVIDER, UNKNOWN Referring Unavailable No, PCP Primary Care Unavailable Crombie, Wyatt Referring Unavailable Crombie, Wyatt Primary Care Unavailable [facility] Attending Unavailable PROVIDER, UNKNOWN Admitting Unavailable PEPE PATTERSON Attending Unavailable PROVIDER, UNKNOWN Admitting Unavailable PROVIDER, UNKNOWN Attending Unavailable PROVIDER, UNKNOWN Admitting Unavailable PROVIDER, UNKNOWN Attending Unavailable WYATT BRUNSON Attending Unavailable Oleghe, Efewongbe Primary Care Unavailable John Davis Attending Unavailable Oleghe, Efewongbe Primary Care Unavailable Claribel Batista Attending Unavailable Oleghe, Efewongbe Referring Unavailable John Davis Attending Unavailable Oleghe, Efewongbe Primary Care Unavailable Oleghe, Efewongbe Primary Care Unavailable Rosalba Stein Attending Unavailable Claribel Batista Attending Unavailable Oleghe, Efewongbe Referring Unavailable Oleghe, Efewongbe Primary Care Unavailable Claribel Batista Attending Unavailable Oleghe, Efewongbe Primary Care Unavailable Claribel Batista Attending Unavailable Oleghe, Efewongbe Primary Care Unavailable Oleghe, Efewongbe Primary Care Unavailable Cassy Arauz Attending Unavailable Claribel Batista Attending Unavailable Oleghe, Efewongbe Referring Unavailable Oleghe, Efewongbe Primary Care Unavailable Tawanda Colon CAREER TECHNICAL SUPERVISOR-C Attending Unavailable Oleghe, Efewongbe Referring Unavailable Oleghe, Efewongbe Primary Care Unavailable Claribel Batista Attending Unavailable Lucyorelli, Claribel Referring Unavailable Oleghe, Efewongbe Primary Care Unavailable Oleghe, Efewongbe Referring Unavailable Claribel Batista Attending Unavailable Oleghe, Efewongbe Referring Unavailable Oleghe, Efewongbe Primary Care Unavailable Oleghe, Efewongbe Primary Care Unavailable Chavez Byrd Attending Unavailable Oleghe, Efewongbe Primary Care Unavailable Rosalba Stein Attending Unavailable Rosalinda Yousif Attending Unavailable Tawanda Colon CAREER TECHNICAL SUPERVISOR-C Attending Unavailable Oleghe, Efewongbe Referring Unavailable Oleghe, Efewongbe Primary Care Unavailable Oleghe, Efewongbe Attending Unavailable Oleghe, Efewongbe Referring Unavailable Oleghe, Efewongbe Primary Care Unavailable Irwin Alejo Attending Unavailable Steven, Kanab Attending Unavailable Vanessa Gonzalez Referring Unavailable Oleghe, Efewongbe Primary Care Unavailable Isaac Ahmadi Attending Unavailable Tawanda Colon CAREER TECHNICAL SUPERVISOR-C Attending Unavailable Oleghe, Efewongbe Referring Unavailable Oleghe, Efewongbe Primary Care Unavailable Oleghe, Efewongbe Attending Unavailable Oleghe, Efewongbe Referring Unavailable Oleghe, Efewongbe Primary Care Unavailable Attila Johnson Attending Unavailable Oleghe, Efewongbe Primary Care Unavailable White, Kandi Admitting Unavailable Bradly Davis Attending Unavailable White, Kandi Admitting Unavailable White, Kandi Attending Unavailable Oleghe, Efewongbe Primary Care Unavailable White, Kandi Consulting Unavailable Tawanda Colon CAREER TECHNICAL SUPERVISOR-C Attending Unavailable Oleghe, Efewongbe Referring Unavailable Oleghe, Efewongbe Primary Care Unavailable Bolivar Fonseca Attending Unavailable Oleghe, Efewongbe Primary Care Unavailable Attila Hutchinson Attending Unavailable Oleghe, Efewongbe Primary Care Unavailable Román Mulligan Attending Unavailable Steven, Kanab Attending Unavailable Steven, Kanab Referring Unavailable Oleghe, Efewongbe Primary Care Unavailable Steven, Kanab Attending Unavailable Steven, Jesse Referring Unavailable Oleghe, Efewongbe Primary Care Unavailable Steven, Jesse Consulting Unavailable Oleghe, Efewongbe Primary Care Unavailable [facility], Edgar Admitting Unavailable Shelbie Knox Attending Unavailable Steven, Kanab Consulting Unavailable Yahir, Edgar Admitting Unavailable Yahir, Edgar Attending Unavailable Oleghe, Efewongbe Primary Care Unavailable [facility], Edgar Consulting Unavailable Claribel Batista Attending Unavailable Claribel Batista Referring Unavailable Oleghe, Efewongbe Primary Care Unavailable Steven, Kanab Attending Unavailable Steven, Jesse Referring Unavailable Oleghe, Efewongbe Primary Care Unavailable Oleghe, Efewongbe Primary Care Unavailable Irwin Alejo Attending Unavailable Tawanda Colon CAREER TECHNICAL SUPERVISOR-C Attending Unavailable Oleghe, Efewongbe Referring Unavailable Oleghe, Efewongbe Primary Care Unavailable Asael Hale Attending Unavailable Alexia Asael Referring Unavailable Tawanda Colon CAREER TECHNICAL SUPERVISOR-C Attending Unavailable Oleghe, Efewongbe Referring Unavailable Oleghe, Efewongbe Primary Care Unavailable Attila Oliva Attending Unavailable Kandi Wylie Referring Unavailable Oleghe, Efewongbe Attending Unavailable Oleghe, Efewongbe Referring Unavailable Oleghe, Efewongbe Primary Care Unavailable Oleghe, Efewongbe Primary Care Unavailable Diana Mays Attending Unavailable Claribel Batista Attending Unavailable Oleghe, Efewongbe Referring Unavailable Oleghe, Efewongbe Primary Care Unavailable Martin Stokesl Attending Unavailable Oleghe, Efewongbe Primary Care Unavailable Jayden Mike Admitting Unavailable Dolly, Ghasem Attending Unavailable Asael Hale Consulting Unavailable Jayden Mike Admitting Unavailable Jayden Mike Attending Unavailable Oleghe, Efewongbe Primary Care Unavailable Jayden Mike Consulting Unavailable Marbella Jayden Admitting Unavailable Asael Hale Attending Unavailable Oleghe, Efewongbe Primary Care Unavailable Asael Hale Consulting Unavailable Ashelfah, Ghasem Consulting Unavailable Agvicki Jayden Admitting Unavailable Ashelfah, Ghasem Attending Unavailable Oleghe, Efewongbe Primary Care Unavailable Asael Hale Consulting Unavailable Ashelfah, Ghasem Consulting Unavailable AgyepongJayden Admitting Unavailable Ashelfah, Ghasem Attending Unavailable Oleghe, Efewongbe Primary Care Unavailable Asael Hale Consulting Unavailable Ashelfah, Ghasem Consulting Unavailable Agyepongeorge, Jayden Admitting Unavailable Asael Hale Attending Unavailable Oleghe, Efewongbe Primary Care Unavailable HiisAsael retana Consulting Unavailable Ashelfah, Ghasem Consulting Unavailable Agyepong, Jayden Admitting Unavailable Ashelfah, Ghasem Attending Unavailable Oleghe, Efewongbe Primary Care Unavailable Hiispaw, Asael Consulting Unavailable Ashelfah, Ghasem Consulting Unavailable Marbella, Jayden Admitting Unavailable Asael Hale Attending Unavailable Oleghe, Efewongbe Primary Care Unavailable MoodisAseal retana Consulting Unavailable Ashelfah, Ghasem Consulting Unavailable Oleghe, Efewongbe Attending Unavailable Oleghe, Efewongbe Referring Unavailable Oleghe, Efewongbe Primary Care Unavailable Oleghe, Efewongbe Attending Unavailable Oleghe, Efewongbe Referring Unavailable Oleghe, Efewongbe Primary Care Unavailable Chavez Byrd Attending Unavailable Steven, Jesse Attending Unavailable Steven, Kanab Referring Unavailable Steven, Kanab Attending Unavailable Oleghe, Efewongbe Primary Care Unavailable Graham Mendoza Attending Unavailable Tawanda Colon CAREER TECHNICAL SUPERVISOR-C Attending Unavailable Oleghe, Efewongbe Referring Unavailable Oleghe, Efewongbe Primary Care Unavailable Oleghe, Efewongbe Attending Unavailable Oleghe, Efewongbe Referring Unavailable Oleghe, Efewongbe Primary Care Unavailable Attila Johnson Attending Unavailable Tawanda Colon CAREER TECHNICAL SUPERVISOR-C Attending Unavailable Oleghe, Efewongbe Referring Unavailable Oleghe, Efewongbe Primary Care Unavailable Asael Hale Attending Unavailable Ashelfah, Ghasem Referring Unavailable SUDHA SINGH Primary Care Unavailable Graham Mendoza Attending Unavailable Attila Hutchinson Attending Unavailable Primay Care Physicia, No Primary Care Unavailable Shanique Omer Attending Unavailable Mike, Micheal Primary Care Unavailable Jayden Franco Attending Unavailable Boomer, Micheal Primary Care Unavailable Diana Mays Attending Unavailable Asael Hale Attending Unavailable Jayden Mike Referring Unavailable Oleghe, Efewongbe Primary Care Unavailable Diana Mays Attending Unavailable Claribel Batista Attending Unavailable Oleghe, Efewongbe Referring Unavailable Oleghe, Efewongbe Primary Care Unavailable Claribel Batista Attending Unavailable Oleghe, Efewongbe Primary Care Unavailable Claribel Batista Attending Unavailable Claribel Batista Referring Unavailable Oleghe, Efewongbe Primary Care Unavailable Oleghe, Efewongbe Primary Care Unavailable Cassy Cruz Attending Unavailable Oleghe, Efewongbe Primary Care Unavailable Attila Hutchinson Attending Unavailable Myesha Perez Attending Unavailable Oleghe, Efewongbe Primary Care Unavailable Chavez Byrd Attending Unavailable Keyon Grace Attending Unavailable SUDHA SINGH Primary Care Unavailable Oleghe, Efewongbe Attending Unavailable Talampas, Vanessa Referring Unavailable Talampas, Vanessa Primary Care Unavailable NATALIE ISAIAH G Attending Unavailable TALAMPAS, VANESSA Referring Unavailable TALAMPAS, VANESSA Primary Care Unavailable NATALIE, ISAIAH G Admitting Unavailable NATALIE, ISAIAH G Attending Unavailable TALAMPAS, VANESSA Primary Care Unavailable NATALIE, ISAIAH G Attending Unavailable TALAMPAS, VANESSA Referring Unavailable TALAMPAS, VANESSA Primary Care Unavailable TALAMPAS, VANESSA Primary Care Unavailable CLEMENTINE ESTEBAN Attending Unavailable CONSULT, CARDIOLOGY Consulting Unavailable RENETTA MACIAS Attending Unavailable REGINA FRANCISCO Attending Unavailable RENÉ GARCIA Attending Unavailable GALILEO RUVALCABA Attending Unavailable CAMRON PEREZ Admitting Unavailable CAMRON PEREZ Attending Unavailable CAMRON PEREZ Referring Unavailable MARIAH DSEAI) Admitting Unavailable JUDE REDDY Attending Unavailable MICHEAL HUNTER JR Consulting Unavailable CAMRON PEREZ Attending Unavailable OLEGHE, EFEWONGBE B Referring Unavailable CAMRON PEREZ Admitting Unavailable CAMRON PEREZ Attending Unavailable CAMRON PEREZ Referring Unavailable PHANI RAGSDALE Attending Unavailable OLEGHE, EFEWONGBE B Referring Unavailable LI WINSTON (ALE) Referring Unavailable LI WINSTON (ALE) Attending Unavailable TALAMPAS, VANESSA D Referring Unavailable DENNIS ALFORD Attending Unavailable CAMRON PEREZ Referring Unavailable SHANIQUE DELGADILLO Attending Unavailable Shama Harley Primary Care Unavailable Tam, Dr. Devorah Soria Attending Unavailable JAVIER CONNOR, MARY Attending Unavailable MICHEAL WILKINSON MD Primary Care Unavailable IRAIS BAUMAN, DR. PEDRAZA Attending Unavailable PHYSICIAN, NONE Primary Care Unavailable PHYSICIAN, NONE Primary Care Unavailable RODRICK RUSSO MD Admitting Unavailable RODRICK RUSSO MD Attending Unavailable BYRON JORGE Attending Unavailable PHYSICIAN, NONE Primary Care Unavailable BEN SRINIVASAN, DR. RENETTA Sinha Attending Unavailable PHYSICIAN, NONE Primary Care Unavailable BYRON JORGE Attending Unavailable BYRON JORGE Attending Unavailable PHYSICIAN, NONE Primary Care Unavailable RODRICK RUSSO MD Admitting Unavailable RODRICK RUSSO MD Attending Unavailable PHYSICIAN, NONE Primary Care Unavailable MCKENZIE BAUMAN, MD. ELIZABETH Perera Consulting Unavailable OSWALD DEE MD, LUCY Consulting Unavailable MILLI BAUMAN, DR. KEILA Herrera Attending Unavailable ANDRA, BILLY Primary Care Unavailable JOSE FRANCISCO SRINIVASAN, DR. JIMENEZ Attending Unavailable ANDRA, BILLY Primary Care Unavailable BALMARCIA, BILLY Primary Care Unavailable IRAIS BAUMAN, DR. PEDRAZA Attending Unavailable ANDRA, BILLY Referring Unavailable LEE, RAINER Attending Unavailable PHYSICIAN, NONE Primary Care Unavailable ANDRA, BILLY Attending Unavailable PHYSICIAN, NONE Primary Care Unavailable HIEN GÓMEZ MD Attending Unavailable PROBLEMS PROBLEMS DATE TYPE CONDITION / CODE ATTENDING STATUS SOURCE Admitting Chest Pain / [id number]() EULALIA, Active [facility] 9 diagnosis CLEMENTINE A [facility] Repository Active Cough / R05(ICD-10) NA Active [address] Repository Unknown S43.401A - Diana Mays Active [place] 9 Unspecified sprain of Community right shoulder joint, Hospital initial encounter / Repository S43.401A(ICD-10) Admitting Chest pain, ital, Active [place] [id number] Diagnosis unspecified / [facility] R07.9(ICD-10) Repository Admitting Hyperlipidemia, ital, Edward [place] [address] Diagnosis unspecified / [facility] E78.5(ICD-10) Repository Admitting Restless legs ital, [place] [address] Diagnosis syndrome / [facility] G25.81(ICD-10) Repository Admitting Major depressive Dhital, Active [employer] 9 Diagnosis disorder, single [facility] episode, unspecified Repository / F32.9(ICD-10) Admitting Unspecified atrial Dhital, Active [employer] 9 Diagnosis fibrillation / [facility] I48.91(ICD-10) Repository Admitting Prsnl hx of TIA Dhital, Active [employer] 9 Diagnosis (TIA), and cereb [facility] infrc w/o resid Repository deficits / Z86.73(ICD-10) Admitting Allergy status to oth [facility], Active [employer] 9 Diagnosis drug/meds/biol subst [facility] status / Repository Z88.8(ICD-10) Admitting Allergy status to [facility], Active [employer] Diagnosis penicillin / [facility] Z88.0(ICD-10) Repository Admitting Unspecified abdominal Dhital, Active [employer] 9 Diagnosis pain / R10.9(ICD-10) [facility] Repository 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, 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 / [facility] Z79.82(ICD-10) Repository Admitting Allergy status to [facility], Active [employer] Diagnosis other antibiotic [employer] agents status / Repository Z88.1(ICD-10) Admitting Nausea / Dhital, Active [employer] 9 Diagnosis R11.0(ICD-10) [facility] Repository Admitting Hypertensive heart Dhital, Active [employer] 9 Diagnosis disease with heart [facility] failure / Repository I11.0(ICD-10) Admitting Heart failure, Dhital, Active [employer] 9 Diagnosis unspecified / [facility] I50.9(ICD-10) Repository Final Dyspnea, unspecified Dr. Tam Active [place] 9 diagnosis / R06.00(ICD-10) [facility] (discharge) Repository Active Dyspnea, unspecified Dr. Tam Active [place] 9 / R06.00(ICD-10) [facility] Repository Unknown S50.00XA - Contusion Graham Mendoza Active [place] 9 of unspecified elbow, Community initial encounter / Hospital S50.00XA(ICD-10) Repository Admitting Follow-up / 145() ISAIAH ANDREW Active [facility] 8 diagnosis [facility] Repository Active Hematuria, RENETTA MACIAS Counts Include [address] [facility] 8 unspecified / Clinic Other R31.9(ICD-10) [facility] Repository Active Essential (primary) RENETTA MACIAS Counts Include [address] [facility] 8 hypertension / Clinic Other I10(ICD-10) [facility] Repository Active Calculus of kidney / NA Counts Include [address] [facility] 8 N20.0(ICD-10) Clinic Main [facility] Repository Active Other chest pain / DULLE, REGINA Active [facility] 8 R07.89(ICD-10) [facility] Other [facility] Repository Admitting Pure BALBILLY KENNEDY Active [employer] Diagnosis hypercholesterolemia, Foundation unspecified / Repository E78.00(ICD-10) Admitting Gastro-esophageal René Ruiz [facility] 8 Diagnosis reflux disease System without esophagitis / Repository K21.9(ICD-10) Admitting Essential (primary) [facility] 8 Diagnosis hypertension / System I10(ICD-10) Repository 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 [facility] 8 Diagnosis use of anticoagulants System / Z79.01(ICD-10) Repository Admitting Other chest pain / René [facility]iz [facility] 8 Diagnosis R07.89(ICD-10) System Repository Admitting Thoracic aortic René Ruiz [facility] 8 Diagnosis aneurysm, without System rupture / Repository I71.2(ICD-10) Admitting Hypokalemia / René Ruiz [facility] 8 Diagnosis E87.6(ICD-10) System Repository Admitting Anxiety disorder, René Ruiz [facility] 8 Diagnosis unspecified / System F41.9(ICD-10) Repository Admitting Paroxysmal atrial René [facility] 8 Diagnosis fibrillation / System I48.0(ICD-10) Repository Admitting Benign prostatic René [facility]iz [facility] 8 Diagnosis hyperplasia without System lower urinry tract Repository symp / N40.0(ICD-10) Admitting Allergy status to René [facility]iz [facility] 8 Diagnosis narcotic agent status System / Z88.5(ICD-10) Repository Admitting Obesity, unspecified [facility] 8 Diagnosis / E66.9(ICD-10) System Repository Admitting Body mass index (BMI) [facility] 8 Diagnosis 32.0-32.9, adult / System Z68.32(ICD-10) Repository Admitting Personal history of [facility] 8 Diagnosis urinary calculi / System Z87.442(ICD-10) Repository Admitting Unknown / Jona PEREZ Active [facility] 8 diagnosis UNK(Unknown) [facility] Repository Unknown M25.511 - Pain in [facility], Active [place] 8 right shoulder / [facility] M25.511(ICD-10) Hospital Repository Unknown S43.006A - Diana Mays Active [place] 8 Unspecified Community dislocation of Hospital unspecified shoulder Repository joint, initial encounter / S43.006A(ICD-10) Admitting Calculus of kidney / Plura Processingecki, Thumb 8 Diagnosis N20.0(ICD-10) [facility] Repository Admitting Shortness of breath / Bialecki, Thumb 8 Diagnosis R06.02(ICD-10) [facility] Repository Admitting 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 Repository / I25.10(ICD-10) Admitting Thoracic aortic Plura Processingecki, Thumb 8 Diagnosis ectasia / [facility] I77.810(ICD-10) Repository Unknown N20.1 - Calculus of ElizabethBenel Active [place] 8 ureter / Community N20.1(ICD-10) Hospital Repository Active Nausea with vomiting, NA Active [place] 8 unspecified / Clinic Other R11.2(ICD-10) [facility] Repository Active Chest pain, JUDE REDDY Active [place] 8 unspecified / Clinic Other R07.9(ICD-10) [facility] Repository Active Transient cerebral BALDI, JUDE Active [facility] 8 ischemic attack, Clinic Other unspecified / [facility] G45.9(ICD-10) Repository Unknown I48.0 - Paroxysmal Moodispaw, Asael Active [place] 8 atrial fibrillation / Community I48.0(ICD-10) Hospital Repository Unknown I10 - Essential Moodispaw, Asael Active [place] 8 (primary) Community hypertension / Hospital I10(ICD-10) Repository Unknown R07.9 - Chest pain, Moodispaw, Asael Active [place] 8 unspecified / Community R07.9(ICD-10) Hospital Repository Unknown R07.89 - Other chest Moodispaw, Asael Active [place] 8 pain / R07.89(ICD-10) [facility] Repository Unknown I47.1 - Moodispayael, Asael Active [place] 8 Supraventricular Community tachycardia / Hospital I47.1(ICD-10) Repository Unknown I48.92 - Unspecified Moodispaw, Asael Active [place] 8 atrial flutter / Community I48.92(ICD-10) Hospital Repository Unknown M25.531 - Pain in Chicorelli, Active [place] 8 right wrist / [facility] Community M25.531(ICD-10) Hospital Repository Unknown R10.9 - Unspecified Diana Mays Active [place] 8 abdominal pain / Community R10.9(ICD-10) Hospital Repository Active Thoracic aortic CHARLES, Active [place] 8 ectasia / PHANI JAYDEN Clinic Other I77.810(ICD-10) [facility] Repository Unknown R00.2 - Palpitations Steven, Jesse Active [place] 8 / R00.2(ICD-10) [facility] Repository Unknown R00.0 - Tachycardia, StevenCelso calvinril Active [place] 8 unspecified / Community R00.0(ICD-10) Hospital Repository Unknown I25.10 - StevenCelso calvinril Active [place] 8 Atherosclerotic heart Community disease of [facility] coronary artery Repository without angina pectoris / I25.10(ICD-10) Active Calculus of kidney NA Active [place] 8 with calculus of Clinic Other ureter / [place] N20.2(ICD-10) Repository Active Unspecified abdominal KOVACLI HARRIS Active [place] 8 pain / R10.9(ICD-10) ([place]) Clinic Other [place] Repository Active Urinary tract KOVACLI HARRIS Active [place] 8 infection, site not ([place]) Clinic Other specified / [facility] N39.0(ICD-10) Repository Unknown R06.02 - Shortness of Attila Oliva Active [place] 8 breath / Community R06.02(ICD-10) Hospital Repository Unknown I25.2 - 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 Community / I25.2(ICD-10) Hospital Repository Unknown N20.0 - Calculus of ElizabethAttila rodriguez Active [place] 8 kidney / Community N20.0(ICD-10) Hospital Repository Unknown E78.00 - Pure StevenCelso calvinril Active [place] 8 hypercholesterolemia, Community unspecified / Hospital E78.00(ICD-10) Repository Unknown I77.810 - Thoracic Steven, [place] Active [place] 8 aortic ectasia / Community I77.810(ICD-10) Hospital Repository Unknown M75.42 - Impingement Chicorelli, Active [place] 8 syndrome of left [facility] shoulder / Hospital M75.42(ICD-10) Repository Unknown M75.81 - Other Chicorelli, Active [place] 8 shoulder lesions, [facility] right shoulder / Hospital M75.81(ICD-10) Repository Unknown 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, 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, [facility]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 / Hospital G56.01(ICD-10) Repository Unknown M75.101 - Unspecified Chicorelli, Active [place] 8 rotator cuff tear or [place] Community rupture of right Hospital shoulder, not Repository specified as traumatic / M75.101(ICD-10) Unknown M75.41 - Impingement WYATT BRUNSON Active [place] 8 syndrome of right Community shoulder / Hospital M75.41(ICD-10) Repository PROCEDURES PROCEDURES DATE CODE DESCRIPTION STATUS SOURCE 10/28/2018 50426(C4) BASIC METABOLIC PANEL Completed [facility] Repository 10/28/2018 40291(C4) COMPLETE BLOOD COUNT Completed [facility] W/DIFF (RAPID RESPONSE System Repository LABS) 10/28/2018 81217(C4) PARTIAL THROMBOPLASTIN Completed [facility] TIME System Repository 10/28/2018 11398(C4) PROTHROMBIN TIME AND Completed [facility] INR System Repository 10/28/2018 28520(C4) TROPONIN I Completed [facility] Repository 10/28/2018 78986(C4) XR CHEST PA+LAT Completed [facility] Repository 10/28/2018 72205(C4) EKG 12 LEAD - PERFORM Completed [facility] Repository 10/28/2018 51894(C4) CREATINE KINASE Completed [facility] Repository 10/28/2018 54846(C4) CBC WITH Completed [facility] DIFFERENTIAL-RAPID System Repository RESPONSE LABS 10/28/2018 12135(C4) D-DIMER Completed [facility] Repository 10/28/2018 12494(C4) CTA CHEST PULMONARY Completed [facility] EMBOLISM W/ CTA System Repository 10/28/2018 44662(C4) TROPONIN I Completed [facility] Repository 10/28/2018 26610(C4) EKG 12 LEAD - PERFORM Completed [facility] Repository 10/28/2018 ED103(C4) DISCHARGE PATIENT Completed [facility] Repository 10/28/2018 34998([facility] [address] Completed [facility] CPT-4) Center Repository RESULTS RESULTS CBC WITH DIFF AUDREY Collected: 11/16/2018 Status: F Source: [facility] 5:15 AM [facility] REPOSITORY TYPE CODE TESTS RESULT OUT OF REFERENCE UNITS RANGE LAB WBC 3.73-10.10 K/uL WBC Count 5.88 LAB RBC 4.38-5.83 M/uL RBC Count 4.46 LAB HGB 13.4-16.8 g/dL Hemoglobin 11.2 Low LAB HCT 39.6-48.8 % Hematocrit 35.7 Low LAB MCV 79.0-94.5 fL Mean Cell 80.0 Volume LAB MCH 26.1-33.3 pg Mean Cell 25.1 Low Hgb LAB MCHC 31.9-36.5 g/dL Mean Cell 31.4 Low Hgb Conc LAB RDW 10.9-14.3 % RBC 15.4 High Distribution LAB PLT 146-337 K/uL Platelet 265 Count LAB MPV 8.7-12.3 fL Mean 8.9 Platelet Volume LAB NRBC 0.0-0.2 /100 WBC NUCLEATED 0.0 RBC LAB DTYPE Electronic DIFFERENTIAL TYPE Differential LAB IGRE % IMMATURE 0.2 GRANS % LAB SEGS % NEUTROPHIL 42.5 SEGMENTED LAB LYM % LYMPHOCYTE 40.0 % LAB MON % MONOCYTE % 12.9 LAB EOS % *EOSINOPHIL 3.2 % LAB BASO % BASOPHIL % 1.2 LAB IGABS 0.00-0.07 K/uL IMMATURE <0.04 GRANS ABSOLUTE LAB SBANS 1.57-6.19 K/uL SEGS + 2.50 Bands,Absolute LAB ALYM 0.83-3.57 K/uL Abs Lymph 2.35 LAB AMONO 0.24-0.93 K/uL Abs [place] 0.76 LAB AEOS 0.00-0.48 K/uL Abs Eos 0.19 LAB ABASO 0.00-0.09 K/uL Abs Baso 0.07 Performed By: #### CBCDFJ #### [facility] [address] [place] [address] URINE DRUG SCREEN Collected: 11/16/2018 Status: F Source: [facility] 2:19 [facility] REPOSITORY TYPE CODE TESTS RESULT OUT OF REFERENCE UNITS RANGE LAB AURES MORPHINE URINE DRUGS EPHEDRINE/PSEUDOE DETECTED PHEDRINE LIDOCAINE CITALOPRAM LAB AUDRG For Medical Urine Drug Purposes Only, Screen Non-forensic, screen results are presumptive. No confirmatory testing will follow. Result Comment: This Liquid Chromatography Mass Spectrometry (LC/MS/MS) test was developed and its performance characteristics determined by [facility] at [facility]. It has not been cleared or approved by the FDA. The laboratory is regulated under CLIA as qualified to perform high-complexity testing. This test is used for clinical purposes. It should not be regarded as investigational or for research. The following drugs with their lowest level of detection in ng/ml(LOD) are included in this screen: 6 Monoacetylmorphine(300), 7 Aminoflunitrazepam(25), 7 Aminoclonazepam(50), Alphahydroxytriazolam(400), Alphahydrozyalprazolam(200), Alprazolam(50), Amitriptyline(50), Amphetamine(250), Atenolol(500), Barbiturates(200), Benzoylecgonine(50), Buprenorphine(500), Bupropion(25), Caffeine(89763), Cannabinoids(THC)(50), Chlordiazepoxide(50), Chlorpheniramine(100), Chlorpromazine(50), Citalopram(100), Clonazepam(200), Cocaine(25), Codeine(200), Cotinine(500), Desakylflurazepam(50), Desipramine(50), Desmethyldoxepin(100), Dextromethorphan(100), Diazepam(100), Dihydrocodeine(100), Diltazem(50), Diphenhydramine(100), Doxepin(100), EDDP/methadone(100), Ephedrine/Pseudoephedrine(100), Fentanyl(25), Flunitrazepam(100), Fluoxetine(200), Flurazepam(50), Gabapentin(1500), Haloperidol(25), Hydrocodone(100), Hydromorphone(200), Imipramine(50), Ketamine(25), Lidocaine(25), Lorazepam(100), Lysergide(LSD)(25), Maprotiline(200), MDA(250), MDMA(250), Meperidine(50), Methadone(50), Methamphetamine(500), Methylphenidate(50), Metoprolol(50), Morphine(200), Nalbuphine(50), Naloxone(200), Norbuprenorphine(300), Nordiazepam(100), Norfentanyl(100), Norpropoxyphene(50), Nortriptyline(50), Olanzapine(200), Oxazepam(200), Oxycodone(100), Oxymorphone(200), Phencyclidine(PCP)(25), Pheniramine(25), Pregabalin(1500), Promethazine(50), Propoxyphene(100), Propanolol(50) Quetiapine(25), Quinidine(500), Ranitidine(500), Risperidone(100), Sertraline(50), Temazepam(100), Thioridazine(100), Tramadol(50), Trazodone(25, Triazolam(100), Venlafaxine(50), Verapamil(100), Zolpidem(200) Performed By: #### UDRG #### [facility] [place] [place] [address] [address] ANGIO CHEST Observed: 11/16/2018 Status: F Source: [facility] (NONCORONARY) 12:30 AM [facility] REPOSITORY EXAM: CT ANGIO CHEST (NONCORONARY), 11/15/2018 23:46 PM CLINICAL INDICATION: COMPARISON: No images are available to review. Report from a CT cardiac pulmonary vein study dated 10/09/2017 is available for review. TECHNIQUE: The imaging was performed using a MDCT system. It included a spiral acquisition from the shoulders to the upper abdomen in order to assess the entire thoracic aorta and suprarenal abdominal aorta. 3D reconstruction was performed on an independent workstation based on specific patient condition and were reviewed and approved by Shanique Gonzalez DO. CONTRAST: iohexol (OMNIPAQUE) 350 MG/ML injection 1-171 mL; Route of Administration: Intravenous; Dose: 100 mL. FINDINGS: Lungs and Pleura: No pleural effusion. No suspicious pulmonary nodule. Mild bronchiolectasis and bronchial wall thickening noted in the lung bases. Minimal atelectatic changes are also noted in the lung bases. No dense consolidation. Tracheobronchial tree: The central airways are grossly patent. Mediastinum/Ruben: No mediastinal or hilar lymphadenopathy. Visualized thyroid is grossly unremarkable. Axilla and Supraclavicular Region: No axillary or supraclavicular adenopathy. Cardiovascular: The cardiac chambers and pericardium are within normal limits. Multivessel coronary artery calcifications. Mild aortic valve and mitral valve leaflet calcifications. Aneurysm dilatation of the ascending aorta measuring up to 4.7 cm. In comparison to the prior report dated 10/09/2017, the ascending aorta measured up to 4.6 cm. There is a three-vessel arch. No evidence of aortic dissection. The main pulmonary artery is mildly enlarged measuring up to 3.4 cm in greatest transverse dimension. Upper Abdomen: The upper abdominal contents are unremarkable. Bones and Soft Tissue: No suspicious osseous lesion. IMPRESSION: 1. Aneurysmal dilatation of the ascending aorta measuring up to 4.7 cm. This is similar in size from CT pulmonary vein report dated 10/09/2017. 2. Mild enlargement of the main pulmonary artery which could be seen with pulmonary artery hypertension. 3. Bronchial wall thickening and bronchiolectasis within the lower lobes, which could be related to a nonspecific infectious/inflammatory bronchiolitis. I personally viewed and interpreted these images and I have reviewed and approved this report. E W/ MICROSCOPIC-CHRI Collected: 11/16/2018 Status: F Source: [facility] 12:20 AM [facility] REPOSITORY TYPE CODE TESTS RESULT OUT OF RANGE REFERENCE UNITS LAB ETL PROGRAMMER Clear Appearance Urine Clear LAB SPGR 1.001-1.035 Specific [place] urine 1.015 LAB UPH 5.0-7.0 High pH Urine 7.5 LAB UGL Negative mg/dL Glucose Urine Negative LAB UKET Negative Ketones Abnormal Urine Trace LAB UPR Negative mg/dL Protein Urine Negative LAB UURO <2.0 EU/dL Urobilinogen 0.2 urine LAB UNTR Negative Nitrites Urine Negative LAB ULEU Negative Leukocyte Esterase Negative LAB UBLD Negative Blood Urine Negative LAB COLR Yellow Color Yellow LAB UWBC 0-5 /HPF WBC Urine 0-5 LAB URBC 0-2 /HPF RBC Urine 0-2 LAB BACT Absent Bacteria Absent LAB UCOM COMMENT URINE None LAB EPIS /HPF Squamous Epithelial None Performed By: #### URNJ #### [facility] [address] [place], [place] [address] TROPONIN - CHRI Collected: 11/16/2018 Status: F Source: [facility] 12:20 AM [facility] REPOSITORY TYPE CODE TESTS RESULT OUT OF REFERENCE UNITS RANGE LAB TROP <0.11 ng/mL Troponin I <0.01 XR CHEST AP PORTABLE Observed: 11/15/2018 Status: F Source: [facility] [place] 10:28 PM [facility] REPOSITORY EXAM: XR CHEST AP PORTABLE ED, 11/15/2018 21:49 PM COMPARISON: No prior studies available for comparison. CLINICAL INDICATIONS: CP; SOB FINDINGS: (Adequate technique) Life Support Devices: None Chest Wall: No appreciable acute displaced fracture. Ruben: Normal Mediastinum: Normal Pleural Spaces: No definite pleural effusion. No definite pneumothorax. Lungs: Patchy bronchial wall thickening involving the left greater than right lung bases. Cardiac Silhouette: Normal, without overall or specific chamber enlargement, or abnormal calcification Thoracic Aorta: Normal contour Pulmonary Vessels: Normal, without PVH IMPRESSION: Patchy bronchial wall thickening involving the left greater than right lung bases suggests a nonspecific infectious/inflammatory process, such as bronchiolitis. WITH DIFF AUDREY Collected: 11/15/2018 Status: F Source: [facility] 9:35 PM [facility] REPOSITORY TYPE CODE TESTS RESULT OUT OF REFERENCE UNITS RANGE LAB WBC 3.73-10.10 K/uL WBC Count 6.04 LAB RBC 4.38-5.83 M/uL RBC Count 4.80 LAB HGB 13.4-16.8 g/dL Hemoglobin 11.9 Low LAB HCT 39.6-48.8 % Hematocrit 37.8 Low LAB MCV 79.0-94.5 fL Mean Cell 78.8 Low Volume LAB MCH 26.1-33.3 pg Mean Cell 24.8 Low Hgb LAB MCHC 31.9-36.5 g/dL Mean Cell 31.5 Low Hgb Conc LAB RDW 10.9-14.3 % RBC 15.1 High Distribution LAB PLT 146-337 K/uL Platelet 283 Count LAB MPV 8.7-12.3 fL Mean 8.8 Platelet Volume LAB NRBC 0.0-0.2 /100 WBC NUCLEATED 0.0 RBC LAB DTYPE Electronic DIFFERENTIAL TYPE Differential LAB IGRE % IMMATURE 0.3 GRANS % LAB SEGS % NEUTROPHIL 46.6 SEGMENTED LAB LYM % LYMPHOCYTE 36.6 % LAB MON % MONOCYTE % 13.2 LAB EOS % *EOSINOPHIL 2.5 % LAB BASO % BASOPHIL % 0.8 LAB IGABS 0.00-0.07 K/uL IMMATURE <0.04 GRANS ABSOLUTE LAB SBANS 1.57-6.19 K/uL SEGS + 2.81 Bands,Absolute LAB ALYM 0.83-3.57 K/uL Abs Lymph 2.21 LAB AMONO 0.24-0.93 K/uL Abs [place] 0.80 LAB AEOS 0.00-0.48 K/uL Abs Eos 0.15 LAB ABASO 0.00-0.09 K/uL Abs Baso 0.05 Performed By: #### CBCSUZANJ #### [facility] [place] [address] #### TROP #### [place] [address] PT*PTT - CHRI Collected: 11/15/2018 Status: F Source: [facility] 9:35 PM [facility] REPOSITORY TYPE CODE TESTS RESULT OUT OF RANGE REFERENCE UNITS LAB PT 11.9-14.2 sec PT 12.6 LAB INR 0.9-1.1 INR 0.9 LAB PTT 24.0-34.3 sec PTT 30.1 Performed By: #### HUYENJ #### [facility] [place] [address] #### TROP #### [facility] [address] [place] [address] CALCIUM - CHRI Collected: 11/15/2018 Status: F Source: [facility] 9:35 PM [facility] REPOSITORY TYPE CODE TESTS RESULT OUT OF REFERENCE UNITS RANGE LAB CA 8.6-10.5 mg/dL Calcium 8.9 Performed By: #### HUYENJ #### [facility] [place] [address] #### TROP #### [address] [place] [address] [facility] [address] [place] [id number] CHEM 7 - CHRI Collected: 11/15/2018 Status: F Source: [facility] 9:35 PM [facility] REPOSITORY TYPE CODE TESTS RESULT OUT OF REFERENCE UNITS RANGE LAB BUN 7-22 mg/dL BUN 11 LAB CREA 0.70-1.30 mg/dL Creatinine 0.91 LAB NA 133-143 mmol/L Sodium 139 LAB K 3.5-5.0 mmol/L Low Potassium 3.3 LAB CL 98-108 mmol/L Chloride 107 LAB CO2 22-30 mmol/L Carbon Dioxide 24 LAB GLUC 70-99 mg/dL Glucose 89 LAB GFR >60 mL/min/1.73 sqM Est GFR,non >60 Hungarian LAB GFRA >60 mL/min/1.73 sqM Est GFR, >60 LAB GAP 7-17 mmol/L Anion Gap 11 LAB BC BUN/CREA Ratio 12 LAB OSMC 278-305 mOsm/kg Osmolality 288 (Calc) Performed By: #### ALISEDFJ #### [facility] [address] [place] [address] #### TROP #### [facility] [address] [place], [place] [id number] [facility] [address] [place] [address] INORG PHOSPHATE - CHRI Collected: 11/15/2018 Status: F Source: [facility] 9:35 PM [facility] REPOSITORY TYPE CODE TESTS RESULT OUT OF REFERENCE UNITS RANGE LAB IP 2.2-4.6 mg/dL Inorg Phosphate 2.3 Performed By: #### CBCDFJ #### [facility] [address] [place] [id number] #### TROP #### [facility] [address] [place], [place] [id number] [facility] [address] [place] [address] MAGNESIUM - CHRI Collected: 11/15/2018 Status: F Source: [facility] 9:35 PM [facility] REPOSITORY TYPE CODE TESTS RESULT OUT OF REFERENCE UNITS RANGE LAB MG 1.6-2.6 mg/dL Magnesium 1.9 Performed By: #### CBCDFJ #### [facility]rey [facility], [facility] [address] [place] [id number] #### TROP #### [facility] [address] [place] [id number] [facility] [address] [place] [address] TROPONIN I Collected: 11/15/2018 Status: F Source: [facility] 9:35 PM [facility] REPOSITORY TYPE CODE TESTS RESULT OUT OF REFERENCE UNITS [facility] LAB BNP 0-100 pg/mL B-Type Natriuretic 18 Peptide Performed By: #### CBCDFJ #### Audrey CCCT, [facility] [address] [place] [id number] #### TROP #### U [facility] [address] [place] [id number] [facility] [address] [place] [id number] TROP Collected: 11/12/2018 Status: F Source: [facility] 6:23 PM [facility] REPOSITORY TYPE CODE TESTS RESULT OUT OF REFERENCE UNITS RANGE LAB TROP(LOINC) 0.000-0.040 ng/mL Troponin <0.020 Result Comment: Troponin I reference range: 0.00-0.040 ng/mL Negative and non-diagnostic. >0.040 ng/mL Consistent with cardiac damage, increased clinical risk and possibility of myocardial infarction. Serial measurements, a rise & fall in test results, clinical history, appropriate symptoms and/or ECG changes may help assess possibility of MA. *Other non-acute coronary syndrome conditions such as CHF, myocarditis, pulmonary emboli, sepsis and cardiac surgery could result in myocardial damage and increased troponin levels. Performed By: #### TROP, BMP, GFR #### [address] [address] #### CBC, ADIFF, ANEU, DIFF, MORPH #### [place] [address] [place], [place] [address] BMP Collected: 11/12/2018 Status: F Source: [facility] 6:23 PM [facility] REPOSITORY TYPE CODE TESTS RESULT OUT OF REFERENCE UNITS RANGE LAB GLU(LOINC) 70-105 mg/dL Glucose Level 81 LAB NA(LOINC) 136-145 mmol/L Sodium Level 144 LAB K(LOINC) 3.5-5.1 mmol/L Potassium Level 3.9 LAB CL(LOINC) 98-107 mmol/L Chloride High 108 LAB CO2(LOINC) 22-29 mmol/L CO2 24 LAB EBAL(LOINC mEq/L ) Electrolyte Balance 12.0 LAB BUN(LOINC) 7-18 mg/dL BUN 15 LAB CRE(LOINC) 0.70-1.30 mg/dL Creatinine Lvl (s) 0.98 LAB BC(LOINC) 7-27 ratio BUN/Creatinine 15 Ratio LAB CA(LOINC) 8.4-10.2 mg/dL Calcium Lvl 9.3 Performed By: #### TROP, BMP, GFR #### [address] [address] #### CBC, ADIFF, ANEU, DIFF, MORPH #### [address] [address] [place], [place] [address] .GFR Collected: 11/12/2018 Status: F Source: [facility] 6:23 PM [facility] REPOSITORY TYPE CODE TESTS RESULT OUT OF REFERENCE UNITS RANGE LAB GFRAA(LOINC ml/min/1.73 ) sqm GFR 99 Hungarian Result Comment: GFR Population mean for , Non- Americans Ages 20-29 = 116 mL/min/1.73 sq.m. Ages 30-39 = 107 mL/min/1.73 sq.m. Ages 40-49 = 99 mL/min/1.73 sq.m. Ages 50-59 = 93 mL/min/1.73 sq.m. Ages 60-69 = 85 mL/min/1.73 sq.m. Ages 70+ = 75 mL/min/1.73 sq.m. Chronic Kidney Disease: Less than 60 mL/min/1.73 square meters End Stage Renal Disease: Less than 15 mL/min/1.73 square meters LAB GFRNO(LOINC) ml/min/1.73sqm GFR Non- 82 Result Comment: GFR Population mean for , Non- Americans Ages 20-29 = 116 mL/min/1.73 sq.m. Ages 30-39 = 107 mL/min/1.73 sq.m. Ages 40-49 = 99 mL/min/1.73 sq.m. Ages 50-59 = 93 mL/min/1.73 sq.m. Ages 60-69 = 85 mL/min/1.73 sq.m. Ages 70+ = 75 mL/min/1.73 sq.m. Chronic Kidney Disease: Less than 60 mL/min/1.73 square meters End Stage Renal Disease: Less than 15 mL/min/1.73 square meters Performed By: #### TROP, BMP, GFR #### [address] [address] #### CBC, ADIFF, ANEU, DIFF, MORPH #### [address] [address] [place], [place] [address] CBC Collected: 11/12/2018 Status: C Source: [facility] 6:23 PM [facility] REPOSITORY TYPE CODE TESTS RESULT OUT OF REFERENCE UNITS RANGE LAB WBC(LOINC) 4.60-10.80 10 3/mcL WBC 5.60 LAB RBCCT(LOINC 4.04-6.13 10 6/mcL ) RBC 4.97 LAB HGB(LOINC) 14.0-18.0 G/dL Low Hgb 12.8 LAB HCT(LOINC) 42.0-52.0 % Low Hct 38.3 LAB MCV(LOINC) 80.0-94.0 fL Low MCV 77.2 LAB MCH(LOINC) 27.0-31.2 pg Low MCH 25.9 LAB MCHC(LOINC) 31.8-35.4 G/dL MCHC 33.5 LAB RDW(LOINC) 11.5-14.5 % High RDW 16.4 LAB PLT(LOINC) 130-400 10 3/mcL Platelet 325 LAB MPV(LOINC) 7.4-10.4 fL MPV 7.4 Performed By: #### TROP, BMP, GFR #### [place] [address] #### CBC, ADIFF, ANEU, DIFF, MORPH #### [address] [place], [place] [address] .AUTO DIFF Collected: 11/12/2018 Status: C Source: [facility] 6:23 [facility] [place] REPOSITORY TYPE CODE TESTS RESULT OUT OF REFERENCE UNITS RANGE LAB PAZ(LOINC) 37.0-80.0 % Neutrophil % 65 LAB LYM(LOINC) 10.0-50.0 % Lymphocyte % 28 LAB MON(LOINC) 1.7-13.0 % Monocyte % 7 LAB EO(LOINC) 0.0-7.0 % Eosinophil % 0.0 LAB BAS(LOINC) 0.0-2.5 % Basophil % 0.0 LAB ABLYM(LOIN 0.77-3.85 10 3/mcL C) Lymphocyte, 1.57 Absolute LAB REJI(LOINC 0.15-1.00 10 3/mcL ) Monocyte, .39 Absolute LAB AEOS(LOINC 0.00-0.40 10 3/mcL ) Eosinophil, 0.00 Absolute LAB ABAS(LOINC 0.00-0.19 10 3/mcL ) Basophil, 0.00 Absolute Performed By: #### TROP, BMP, GFR #### [place] [address] #### CBC, ADIFF, ANEU, DIFF, MORPH #### [place] [address] [place], [place] [address] .NEUABS Collected: 11/12/2018 Status: C Source: [facility] 6:23 [facility] [place] REPOSITORY TYPE CODE TESTS RESULT OUT OF REFERENCE UNITS RANGE LAB ANEU(LOINC) 2.85-6.16 10 3/mcL Neutrophil, 3.64 Absolute Performed By: #### TROP, BMP, GFR #### [place] [address] #### CBC, ADIFF, ANEU, DIFF, MORPH #### [place] [address] [place], [place] [address] .MANUAL DIFF Collected: 11/12/2018 Status: C Source: [facility] 6:23 [facility] [place] REPOSITORY TYPE CODE TESTS RESULT OUT OF REFERENCE UNITS RANGE LAB NEUM(LOINC 37.0-80.0 % ) Neutrophil %, 65.0 Manual LAB LYMM(LOINC 10.0-50.0 % ) Lymphocyte %, 28.0 Manual LAB MONM(LOINC 1.7-13.0 % ) Monocyte %, Manual 7.0 LAB EOM(LOINC) 0.0-7.0 % Eosinophil %, 0.0 Manual LAB BASM(LOINC 0.0-2.5 % ) Basophil %, Manual 0.0 Performed By: #### TROP, BMP, GFR #### [address] [address] #### CBC, ADIFF, ANEU, DIFF, MORPH #### [place] [place], [place] [address] .MORPH Collected: 11/12/2018 Status: C Source: [facility] 6:23 PM [facility] REPOSITORY TYPE CODE TESTS RESULT OUT OF REFERENCE UNITS RANGE LAB PLTE(LOINC) Platelet Normal Estimate Performed By: #### TROP, BMP, GFR #### [address] [address] #### CBC, ADIFF, ANEU, DIFF, MORPH #### [place] [place], [place] [address] XR CHEST 1 VIEW Observed: 11/12/2018 Status: F Source: [facility] 6:21 PM [facility] REPOSITORY ORIGINAL XR CHEST 1 VIEW Upright portable chest at 6:16 PM CLINICAL STATEMENT: Chest pain COMPARISON: Chest radiograph 09/01/2018 FINDINGS: Borderline cardiomegaly is unchanged. The mediastinal silhouette is normal and unchanged. There is no consolidation, pleural effusion, pneumothorax, or vascular congestion. Slight eventration of the RIGHT hemidiaphragm is unchanged. No acute osseous finding. IMPRESSION: Stable borderline cardiomegaly. No acute radiographic findings. I have personally reviewed the images of this examination and agree with the resident's findings and interpretation. Interpreted By: Audrey Arellano MD Preliminary Report By: Emeka Harley DO Electronically Signed By: Audrey Arellano MD Dictated Date: 11/12/2018 6:25:57 PM Prelim Date: 11/12/2018 6:26:57 PM Sign Date: 11/12/2018 6:36:00 PM XR CHEST 2V FRONTAL/LAT Observed: 11/12/2018 Status: F Source: [place] 2:21 PM [facility] REPOSITORY * * *Final Report* * * DATE OF EXAM: Nov 12 2018 2:21PM WOX [id number] - XR CHEST 2V FRONTAL/LAT / PROCEDURE REASON: Cough * * * * Physician Interpretation * * * * EXAMINATION: CHEST RADIOGRAPH (2 VIEW FRONTAL and LATERAL) CLINICAL HISTORY: Cough MQ: [id number] Comparison: 09/16/2018 chest x-ray and CT scans of 08/11/2018 RESULT: Lines, tubes, and devices: None. Lungs and pleura: The patient has known dilatation of the ascending aorta. Cardiac size is upper limits of normal. Lung jackson are clear. No pleural fluid or pneumothorax is identified. IMPRESSION: Stable chest. Known prominence of the ascending aorta. No developing abnormality or acute process. 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: NEAL Transcribe Date/Time: Nov 12 2018 3:08P Dictated by : AARTI KNIGHT MD This examination was interpreted and the report reviewed and electronically signed by: AARTI KNIGHT MD on Nov 12 2018 3:09PM EST [id number] PROGRESS Observed: 11/12/2018 Status: COMPLETED Source: [place] 2:12 PM [facility] REPOSITORY HNO ID: [id number] Author: Lindsey Ojeda (Rt) Roney Ruiz Service: (none) Author Type: Sociology Adjunct Instructor Type: Progress Notes Filed: 11/12/2018 2:21 PM Note Text: Radiology Service Progress Note PATIENT NAME: Attila Del Cid DATE OF SERVICE: November 12, 2018 TIME: 2:12 PM PATIENT IDENTITY VERIFICATION COMPLETED USING TWO (2) METHODS: Patient confirmed name verbally and Date of . PATIENT GENDER DATA: Male PATIENT RELEVANT IMPLANT DATA REVIEWED: Not Applicable RADIOLOGY DEPARTMENT: General X-ray: Exam(s) Completed: Chest X-Ray PERIPHERAL IV DATA: Not applicable SIGNED BY: RT Tamara November 12, 2018 2:12 PM RAPID PCR ASSAY FLU Collected: 11/12/2018 Status: F Source: [place] 2:00 PM [facility] REPOSITORY TYPE CODE TESTS RESULT OUT OF REFERENCE UNITS RANGE LAB FLRS Nasopharyngeal Specimen Swab Source LAB PCRFLA Negative for Influenza A Influenza A by RT PCR PCR LAB PCRFLB Negative for Influenza B Influenza B by RT PCR PCR Performed By: #### FLUPCR #### [facility] [address] [place], [place] [address] PROGRESS Observed: 11/12/2018 Status: COMPLETED Source: [place] 1:41 PM [facility] REPOSITORY HNO ID: [id number] Author: Micheal Wilkinson Service: (none) Author Type: Physician Type: Progress Notes Filed: 11/12/2018 1:55 PM Note Text: Patient presents with: Sinus Problem HPI: Patient presents today for office visit for an acuter visit. Nursing Notes: Thalia Schulte LPN 11/12/2018 1:35 PM Signed ENT: Patient complains of sinus pressure. Duration: 2-3 days Fever: No. Headache: No. Sore throat: Yes. Ear pain: Yes. Nasal drainage: Yes. Cough: Yes. Shortness of breath: Yes. Last night. Nausea: Yes. Vomiting: No. Diarrhea: No. Previous treatment: tylenol. a lot of postnasal drip. Could not sleep due to cough. Mild wheezing. No fever. Some myalgias. Chest feels tight. He has a chronic chest pain that has already been evaluated multiple times. See previous note. Was to start physical therapy but held on it due to being ill. MEDICATIONS: Current Outpatient Prescriptions: benzonatate (TESSALON PERLE) 100 mg capsule Take 1 capsule by mouth three times daily as needed. busPIRone (BUSPAR) 5 mg tablet Take 1 tablet by mouth twice daily. metoprolol succinate ER (TOPROL XL) 25 mg 24 hr tablet Take 1 tablet by mouth once daily. ranolazine ER (RANEXA) 500 mg 12 hr tablet Take 1 tablet by mouth twice daily. promethazine (PHENERGAN) 25 mg tablet Take 1 tablet by mouth every 6 hours as needed. sotalol (BETAPACE) 120 mg tablet Take 120 mg by mouth twice daily. atorvastatin (LIPITOR) 20 mg tablet every day escitalopram oxalate (LEXAPRO) 10 mg tablet every day amLODIPine (NORVASC) 5 mg tablet Take 5 mg by mouth twice daily. apixaban (ELIQUIS) 5 mg tab tab(s) Take by mouth twice daily. meclizine (ANTIVERT) 12.5 mg tab Take 2 tablets by mouth twice daily as needed. lisinopril (ZESTRIL, PRINIVIL) 20 mg tablet Take 1 tablet by mouth once daily. pantoprazole DR (PROTONIX) 40 mg tablet Take 1 tablet by mouth once daily. albuterol HFA (PROVENTIL HFA, VENTOLIN HFA) 90 mcg/actuation inhaler Inhale 2 Puffs as instructed every 4 hours as needed. nitroglycerin sublingual (NITROQUICK) 0.4 mg SL tablet Dissolve 0.4 mg under the tongue every 5 minutes as needed. No current facility-administered medications for this visit. ALLERGIES: ALLERGIES Allergen Reactions - Atorvastatin Other: See Comments Chest pain - Celebrex [Celecoxib] Vomiting Nausea - Clonidine Rash - Fentanyl GI Upset - Levofloxacin Rash pt reports to [facility] PT 04-13-2017 - Penicillin G Rash - Relpax [Eletriptan * Vomiting Nausea - Topamax [Topiramate] Vomiting - Vicodin [Hydrocodon* Vomiting - Wellbutrin [Bupropi* Vomiting Nausea PAST MEDICAL HISTORY Diagnosis Date - Acute right flank pain 03/25/2018 - Aneurysm of ascending aorta (HCC) - Aortic aneurysm (HCC) - Arthritis - Atrial fibrillation (HCC) - Calculi, ureter - Calculus of kidney - Hematuria - Hypertension - Kidney stones 03/25/2018 - Pneumonia - Psychiatric disorder anxiety - Renal calculus PAST SURGICAL HISTORY Procedure Laterality Date - BACK SURGERY HX 2015 FUSION, L4-L5 - COLONOSCOP W/ OR W/O BRSH SPEC 05/14/2014 Colonoscopy - EGD W/O OR W/BRUSH/WASH 05/14/2014 EGD - FRAGMENTING/KIDNEY STONE Right 2017 Lithotripsy - KNEE SURGERY HX Right 03/2017 patella replacement - [place] ANESTH,KNEE JOINT; NOS 12/2017 Left - REMOVAL OF KIDNEY STONE 04/2018 FAMILY HISTORY Problem Relation Age of Onset - Diabetes Mother - Colon Cancer Mother - Heart disease Mother - Hypertension Mother - Diabetes Sister - Skin Cancer Father Social History Marital status: Spouse name: Years of education: Number of children: 1 Social History Main Topics Smoking status: Never Smoker Smokeless tobacco: Never Used Alcohol use: No Drug use: No Other Topics Concern Caffeine Concern Yes Comment:low Reviewed current medications, allergies, past medical history, surgical history, family history and social history today. REVIEW OF SYSTEMS All other reviewed and negative other than HPI. HEALTH MAINTENANCE: Reviewed health maintenance issues today and recommended the following in detail. VITALS: BP 102/62 Pulse 100 Temp 36.9 ?C (98.4 ?F) (Tympanic) Wt 105.7 kg (233 lb) SpO2 100% BMI 32.50 kg/m? Last 4 Encounter Wt Readings: Date: Wt: 11/12/2018 105.7 kg (233 lb) 11/04/2018 108.4 kg (239 lb) 09/24/2018 104.3 kg (230 lb) 09/22/2018 102.1 kg (225 lb) PHYSICAL EXAMINATION: General appearance: Well appearing, alert, in no acute distress, well-hydrated, well nourished. Skin: Skin color, texture, turgor normal, no suspicious rashes or lesions Head: Normocephalic, no masses, lesions, tenderness or abnormalities Eyes: Anicteric sclera. Pupils are equally round and reactive to light. Extraocular movements are intact. Ears: External ears normal, canals clear Nose/Sinuses: Nares normal, septum midline, mucosa normal, no drainage or sinus tenderness Oropharynx: Lips, mucosa, and tongue normal, teeth and gums normal, oropharynx normal Neck: Supple, no adenopathy; thyroid symmetric lungs:CTA Heart: RRR without murmur, gallop, or rubs. No ectopy Abdomen: Normal abdominal exam, Abdomen soft, non-tender. Bowel sounds normal. No masses, organomegaly Extremities: No deformities, edema, skin discoloration, clubbing or cyanosis. Good capillary refill. ASSESSMENT/PLAN: 1. Cough - ICD9: 786.2, ICD10: R05 (primary diagnosis) - probably viral. Fluids and rest. Cover empirically for flu until flu test comes back. - Red flags for re-assessment reviewed with patient in detail. - Call if symptoms worsen at all or if not better in one to two weeks - RAPID PCR ASSAY FOR INFLUENZA - XR CHEST 2V FRONTAL/LAT - OSELTAMIVIR 75 MG CAPSULE 2. Essential hypertension - ICD9: 401.9, ICD10: I10 - good control - Continue current medication(s) - Goal of BP <130/80 Micheal Wilkinson MD CNOV Observed: 11/12/2018 Status: COMPLETED Source: [place] 1:20 PM [facility] REPOSITORY Office Visit (FAMPWS) ATTILA DEL CID ([id number]) 1970 M Date Time Provider Department 11/12/18 1:20 PM MICHEAL WILKINSON During your visit today, we recorded the following information about you: Temperature Pulse Blood pressure Weight 98.4 degrees 100/minute 102/62 105.7 kg Thalia Runkle SOFTWARE RELEASE MANAGER 11/12/2018 1:35 PM Signed ENT: Patient complains of sinus pressure. Duration: 2-3 days Fever: No. Headache: No. Sore throat: Yes. Ear pain: Yes. Nasal drainage: Yes. Cough: Yes. Shortness of breath: Yes. Last night. Nausea: Yes. Vomiting: No. Diarrhea: No. Previous treatment: tylenol. Micheal Wilkinson MD 11/12/2018 1:55 PM Signed Patient presents with: Sinus Problem HPI: Patient presents today for office visit for an acuter visit. Nursing Notes: Thalia Schulte SOFTWARE RELEASE MANAGER 11/12/2018 1:35 PM Signed ENT: Patient complains of sinus pressure. Duration: 2-3 days Fever: No. Headache: No. Sore throat: Yes. Ear pain: Yes. Nasal drainage: Yes. Cough: Yes. Shortness of breath: Yes. Last night. Nausea: Yes. Vomiting: No. Diarrhea: No. Previous treatment: tylenol. a lot of postnasal drip. Could not sleep due to cough. Mild wheezing. No fever. Some myalgias. Chest feels tight. He has a chronic chest pain that has already been evaluated multiple times. See previous note. Was to start physical therapy but held on it due to being ill. MEDICATIONS: Current Outpatient Prescriptions: benzonatate (TESSALON PERLE) 100 mg capsule Take 1 capsule by mouth three times daily as needed. busPIRone (BUSPAR) 5 mg tablet Take 1 tablet by mouth twice daily. metoprolol succinate ER (TOPROL XL) 25 mg 24 hr tablet Take 1 tablet by mouth once daily. ranolazine ER (RANEXA) 500 mg 12 hr tablet Take 1 tablet by mouth twice daily. promethazine (PHENERGAN) 25 mg tablet Take 1 tablet by mouth every 6 hours as needed. sotalol (BETAPACE) 120 mg tablet Take 120 mg by mouth twice daily. atorvastatin (LIPITOR) 20 mg tablet every day escitalopram oxalate (LEXAPRO) 10 mg tablet every day amLODIPine (NORVASC) 5 mg tablet Take 5 mg by mouth twice daily. apixaban (ELIQUIS) 5 mg tab tab(s) Take by mouth twice daily. meclizine (ANTIVERT) 12.5 mg tab Take 2 tablets by mouth twice daily as needed. lisinopril (ZESTRIL, PRINIVIL) 20 mg tablet Take 1 tablet by mouth once daily. pantoprazole DR (PROTONIX) 40 mg tablet Take 1 tablet by mouth once daily. albuterol HFA (PROVENTIL HFA, VENTOLIN HFA) 90 mcg/actuation inhaler Inhale 2 Puffs as instructed every 4 hours as needed. nitroglycerin sublingual (NITROQUICK) 0.4 mg SL tablet Dissolve 0.4 mg under the tongue every 5 minutes as needed. No current facility-administered medications for this visit. ALLERGIES: ALLERGIES Allergen Reactions - Atorvastatin Other: See Comments Chest pain - Celebrex [Celecoxib] Vomiting Nausea - Clonidine Rash - Fentanyl GI Upset - Levofloxacin Rash pt reports to [facility] PT 04-13-2017 - Penicillin G Rash - Relpax [Eletriptan * Vomiting Nausea - Topamax [Topiramate] Vomiting - Vicodin [Hydrocodon* Vomiting - Wellbutrin [Bupropi* Vomiting Nausea PAST MEDICAL HISTORY Diagnosis Date - Acute right flank pain 03/25/2018 - Aneurysm of ascending aorta (HCC) - Aortic aneurysm (HCC) - Arthritis - Atrial fibrillation (HCC) - Calculi, ureter - Calculus of kidney - Hematuria - Hypertension - Kidney stones 03/25/2018 - Pneumonia - Psychiatric disorder anxiety - Renal calculus PAST SURGICAL HISTORY Procedure Laterality Date - BACK SURGERY HX 2015 FUSION, L4-L5 - COLONOSCOP W/ OR W/O BRSH SPEC 05/14/2014 Colonoscopy - EGD W/O OR W/BRUSH/WASH 05/14/2014 EGD - FRAGMENTING/KIDNEY STONE Right 2017 Lithotripsy - KNEE SURGERY HX Right 03/2017 patella replacement - [place] ANESTH,KNEE JOINT; NOS 12/2017 Left - REMOVAL OF KIDNEY STONE 04/2018 FAMILY HISTORY Problem Relation Age of Onset - Diabetes Mother - Colon Cancer Mother - Heart disease Mother - Hypertension Mother - Diabetes Sister - Skin Cancer Father Social History Marital status: Spouse name: Years of education: Number of children: 1 Social History Main Topics Smoking status: Never Smoker Smokeless tobacco: Never Used Alcohol use: No Drug use: No Other Topics Concern Caffeine Concern Yes Comment:low Reviewed current medications, allergies, past medical history, surgical history, family history and social history today. REVIEW OF SYSTEMS All other reviewed and negative other than HPI. HEALTH MAINTENANCE: Reviewed health maintenance issues today and recommended the following in detail. VITALS: BP 102/62 Pulse 100 Temp 36.9 ?C (98.4 ?F) (Tympanic) Wt 105.7 kg (233 lb) SpO2 100% BMI 32.50 kg/m? Last 4 Encounter Wt Readings: Date: Wt: 11/12/2018 105.7 kg (233 lb) 11/04/2018 108.4 kg (239 lb) 09/24/2018 104.3 kg (230 lb) 09/22/2018 102.1 kg (225 lb) PHYSICAL EXAMINATION: General appearance: Well appearing, alert, in no acute distress, well-hydrated, well nourished. Skin: Skin color, texture, turgor normal, no suspicious rashes or lesions Head: Normocephalic, no masses, lesions, tenderness or abnormalities Eyes: Anicteric sclera. Pupils are equally round and reactive to light. Extraocular movements are intact. Ears: External ears normal, canals clear Nose/Sinuses: Nares normal, septum midline, mucosa normal, no drainage or sinus tenderness Oropharynx: Lips, mucosa, and tongue normal, teeth and gums normal, oropharynx normal Neck: Supple, no adenopathy; thyroid symmetric lungs:CTA Heart: RRR without murmur, gallop, or rubs. No ectopy Abdomen: Normal abdominal exam, Abdomen soft, non-tender. Bowel sounds normal. No masses, organomegaly Extremities: No deformities, edema, skin discoloration, clubbing or cyanosis. Good capillary refill. ASSESSMENT/PLAN: 1. Cough - ICD9: 786.2, ICD10: R05 (primary diagnosis) - probably viral. Fluids and rest. Cover empirically for flu until flu test comes back. - Red flags for re-assessment reviewed with patient in detail. - Call if symptoms worsen at all or if not better in one to two weeks - RAPID PCR ASSAY FOR INFLUENZA - XR CHEST 2V FRONTAL/LAT - OSELTAMIVIR 75 MG CAPSULE 2. Essential hypertension - ICD9: 401.9, ICD10: I10 - good control - Continue current medication(s) - Goal of BP <130/80 Micheal Wilkinson MD Referring Provider: SELF [200] Allergies As of Date: 11/12/2018 Noted Allergy Reaction ATORVASTATIN 10/09/2017 14 - Other: See Comments Comments: Chest pain CELEBREX (CELECOXIB) 07/17/2016 11 - Vomiting Comments: Nausea CLONIDINE 07/17/2016 2 - Rash FENTANYL 07/17/2016 8 - GI Upset LEVOFLOXACIN 04/13/2017 2 - Rash Comments: pt reports to [facility] PT 6--2017 PENICILLIN G 12/30/2013 2 - Rash RELPAX (ELETRIPTAN HBR) 07/17/2016 11 - Vomiting Comments: Nausea TOPAMAX (TOPIRAMATE) 07/17/2016 11 - Vomiting VICODIN (HYDROCODONE-ACETAMINOPHE*12/30/2013 11 - Vomiting WELLBUTRIN (BUPROPION HCL) 07/17/2016 11 - Vomiting Comments: Nausea Date Reviewed: 11/12/2018 Reviewed by: Thalia Schulte LPN - Fully Assessed Reason for Visit: Sinus Problem [99] Primary Visit Diagnosis:Cough [R05] Other Visit Diagnosis:Essential hypertension [I10] Order(s):RAPID PCR ASSAY FOR INFLUENZA [SQFLUPCR] Order #: [id number] XR CHEST 2V FRONTAL/LAT [0551010] Order #: [id number] FUTURE oseltamivir (TAMIFLU) 75 mg capsuleTake 1 capsule by mouth twice daily for 5 days.Disp: 10 capsuleRfl: 0 Prescriptions as of 11/12/2018 Sig: BENZONATATE 100 MG CAPSULE Take 1 capsule by mouth three* BUSPIRONE 5 MG TABLET Take 1 tablet by mouth twice * METOPROLOL SUCCINATE ER 25 MG* Take 1 tablet by mouth once d* RANOLAZINE ER 500 MG TABLET,E* Take 1 tablet by mouth twice * PROMETHAZINE 25 MG TABLET Take 1 tablet by mouth every * SOTALOL 120 MG TABLET Take 120 mg by mouth twice da* ATORVASTATIN 20 MG TABLET every day ESCITALOPRAM 10 MG TABLET every day AMLODIPINE 5 MG TABLET Take 5 mg by mouth twice chrystal* APIXABAN 5 MG TABLET Take by mouth twice daily. MECLIZINE 12.5 MG TABLET Take 2 tablets by mouth twice* LISINOPRIL 20 MG TABLET Take 1 tablet by mouth once d* PANTOPRAZOLE 40 MG TABLET,DEL* Take 1 tablet by mouth once d* ALBUTEROL SULFATE HFA 90 MCG/* Inhale 2 Puffs as instructed * OSELTAMIVIR 75 MG CAPSULE Take 1 capsule by mouth twice* NITROGLYCERIN 0.4 MG SUBLINGU* Dissolve 0.4 mg under the ton* Problem List As Of Date 11/12/2018 Noted Resolved Primary osteoarthritis of right knee [M17.11] INVALID FOR* Chest pain at rest [R07.9] INVALID FOR* More... HTN (hypertension) [I10] INVALID FOR* Atrial fibrillation (HCC) [I48.91] INVALID FOR* More... Atypical chest pain [R07.89] INVALID FOR*11/04/2018 Patellofemoral instability of right knee with p*INVALID FOR* Kidney stones [N20.0] INVALID FOR* Acute right flank pain [R10.9] INVALID FOR*11/04/2018 Ectatic thoracic aorta (HCC) [I77.810] INVALID FOR* More... Renal calculus, right [N20.0] INVALID FOR* TIA (transient ischemic attack) [G45.9] INVALID FOR* Calculus of kidney [N20.0] INVALID FOR*11/04/2018 More... Family history of colon cancer [Z80.0] INVALID FOR* Anxiety [F41.9] INVALID FOR* Visit Notes: >> Thalia Humphreyelbamisty WILLOW Wed Nov 12, 2018 1:32 PM Status: Signed ENT: Patient complains of sinus pressure. Duration: 2-3 days Fever: No. Headache: No. Sore throat: Yes. Ear pain: Yes. Nasal drainage: Yes. Cough: Yes. Shortness of breath: Yes. Last night. Nausea: Yes. Vomiting: No. Diarrhea: No. Previous treatment: tylenol. Prescriptions ordered this encounter Disp Refills Start End OSELTAMIVIR 75 MG CAPSULE 10 c* 0 11/12/2018 11/17/2018 Route: ORAL Sig: Take 1 capsule by mouth twice daily for 5 days. Encounter Status:Closed by MICHEAL WILKINSON MD on 11/12/18 EMERGENCY DEPARTMENT Observed: 11/08/2018 Status: F Source: [place] SUMMARY 9:59 PM [facility] REPOSITORY [facility] Medical Records Department [address] [place] [address] Emergency Department Summary 11/08/18 1815 MR#: [id number] Acct: [id number] Name: ATTILA DEL CID Rep #: [id number] : 1970 48 From: Diana Mays MD PCP: Micheal Wilkinson MD Status: DEP ER - ER Visit Summary Date of Service: 11/08/18 Chief Complaint: Right shoulder injury History of Present Illness: The patient is a 48 M with history of recurrent right shoulder dislocations. Patient was shoveling snow approximate hour and a half prior to arrival. He believes his shoulder popped out and is not sure if it completely reduced. He states he initially had some tingling in his hand that is now improved. Physical Examination: Vital signs remarkable only for heart rate of 116. Patient sitting upright in bed no acute distress. Head neck examination reveals no C-spine tenderness. Heart is regular rate and rhythm. Lung sounds are clear. Right upper extremity examination reveals tenderness to the posterior aspect of the shoulder. There is no evidence of dislocation on exam. He has strong distal pulses and strong hand grasp. He has decreased range of motion of the shoulder secondary to pain. Test Results: Right shoulder x-rays are normal. Emergency Department Course and Treatment: Patient was given oxycodone p.o. Test results are discussed with the patient. He will be given a sling to use as needed. He will be given a short course of oxycodone. We will avoid anti-inflammatories as he is on Eliquis. He is to follow-up with orthopedics. Treatment Plan: [] Disposition: Discharge Impression: Right shoulder sprain This note was generated with Cloudcity dictation software. It may contain incorrect words, spelling, and punctuation that were not noted in review of the chart prior to signing ED Disposition - Plan for ED Patient: Chief Complaint: Upper Extremity Injury Referrals: Care Physician,No Primary [NON-STAFF] - What to do if you have Problems For any increased pain, shortness of breath, bleeding, nausea or vomiting, chest pain, or any unexpected problems, contact your Primary Care Provider. Call [facility] ([phone]) or report to the closest Emergency Room. Call 911 if necessary. 11/08/18 2988 <Electronically signed by Diana Mays MD> Date Diana Mays MD Cosigner Signature (If Indicated): Date CC: Micheal Wilkinson MD DISCHARGE INSTRUCTION Observed: 11/08/2018 Status: F Source: [place] 7:48 PM [facility] REPOSITORY [facility] Medical Records Department [address] [place] [place] [address] Discharge Instruction 11/08/181947 MR#: [id number] Acct: [id number] Name: ASTERATTILA NGO Rep #: [id number] : 1970 48 From: Diana Mays MD PCP: Micheal Wilkinson MD Status: REG ER ED Disposition - Plan for ED Patient: Disposition: Home or Assisted Living Chief Complaint: Upper Extremity Injury Instructions: ED Sprain Shoulder Prescriptions: Oxycodone HCl/Acetaminophen [Percocet 5/325] 1 tablet PO Q6H PRN PRN 3 Days #12 tablet PRN Reason: Pain Referrals: Jayden Franco DO [STAFF PHYSICIAN] - 1 Week if not improving What to do if you have Problems For any increased pain, shortness of breath, bleeding, nausea or vomiting, chest pain, or any unexpected problems, contact your Primary Care Provider. Call [facility] ([phone]) or report to the closest Emergency Room. Call 911 if necessary. 11/08/181947 <Electronically signed by Diana Mays MD> Date Diana Mays MD Cosigner Signature (If Indicated): Date CC: Micheal Wilkinson MD DISCHARGE INSTRUCTION Observed: 11/08/2018 Status: F Source: [place] 7:47 PM [facility] REPOSITORY [facility] Medical Records Department [address] [place] [address] Discharge Instruction 11/08/181944 MR#: [id number] Acct: [id number] Name: ATTILA DEL CID Rep #: [id number] : 1970 48 From: Diana Mays MD PCP: Micheal Wilkinson MD Status: REG ER ED Disposition - Plan for ED Patient: Disposition: Home or Assisted Living Chief Complaint: Upper Extremity Injury Instructions: ED Sprain Shoulder Prescriptions: Oxycodone HCl/Acetaminophen [Percocet 5/325] 1 tablet PO Q6H PRN PRN 3 Days #12 tablet PRN Reason: Pain Referrals: Jayden Franco DO [STAFF PHYSICIAN] - 1 Week if not improving What to do if you have Problems For any increased pain, shortness of breath, bleeding, nausea or vomiting, chest pain, or any unexpected problems, contact your Primary Care Provider. Call [facility] ([phone]) or report to the closest Emergency Room. Call 911 if necessary. 11/08/181946 <Electronically signed by Diana Mays MD> Date Diana Mays MD Cosigner Signature (If Indicated): Date CC: Micheal Wilkinson MD SHOULDER MIN 2 VIEWS Observed: 11/08/2018 Status: F Source: [place] 6:06 PM [facility] Imaging Services [address] [place] [id number] Shoulder min 2 Views MR#: [id number] Acct: [id number] Name: ATTILA DEL CID Rep #: [id number] : 1970 M 48 From: Soto Mena MD PCP: Micheal Wilkinson MD Status: REG ER Study: Shoulder min 2 Views Date of Exam: 11/08/18 Exam# [id number] Ordering Dr: Diana Mays MD STUDY: X-RAY - RIGHT SHOULDER REASON FOR EXAM: Male, 48 years old. Fall. TECHNIQUE: 2 view(s) of the shoulder. COMPARISON: None. FINDINGS: Normal glenohumeral articulation. Normal acromioclavicular joint. Normal acromion. Normal humeral head and visualized proximal humerus. The soft tissue structures are unremarkable. There is no demonstrated fracture. Normal visualized pulmonary apex. RAD/Shoulder min 2 Views IMPRESSION: Normal x-ray examination of the shoulder. Electronically Signed: Soto Mena MD at 19:15 EST , Service support , CC: Diana Mays MD; Micheal Wilkinson MD 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: Signed ORTHOPEDIC VISIT Observed: 11/07/2018 Status: F Source: [place] REPORT 10:15 AM [facility] REPOSIT[facility] [address] [place] [address] OFFICE VISIT Date of Service: 11/07/18 MR#: [id number] Acct: [id number] Name: ATTILA DEL CID Rep #: [id number] : 1970 Provider: Jayden Franco DO Age/Sex: 48/M Location: [facility] [place] [place].[facility] Status: Signed Intake Vital Signs11/07/18 Body Mass Index (BMI) 33.3 Intake Visit Reasons: LEFT ELBOW Chief Complaint: Follow-up visit. Allergies clonidine Allergy (Intermediate, Verified 11/05/18 23:32) rash levofloxacin [From Levaquin] Allergy (Verified 11/05/18 23:32) Rash Penicillins Allergy (Verified 11/05/18 23:32) Hives bupropion Adverse Reaction (Intermediate, Verified 11/05/18 23:32) vomiting celecoxib [From Celebrex] Adverse Reaction (Intermediate, Verified 11/05/18 23:32) vomiting eletriptan Adverse Reaction (Intermediate, Verified 11/05/18 23:32) Vomiting topiramate [From Topamax] Adverse Reaction (Intermediate, Verified 11/05/18 23:32) vomiting hydrocodone bitartrate [From Vicodin] Adverse Reaction (Verified 11/05/18 23:32) Nausea ketorolac [From Toradol] Adverse Reaction (Verified 11/05/18 23:32) Other Medications Pantoprazole Sodium [Protonix] 40 mg PO DAILY 04/22/16 [History Confirmed 11/06/18] Albuterol Inhaler [Ventolin Hfa] 1 - 2 puff INHALATION Q4H PRN PRN #1 inhaler 07/15/17 [Rx Confirmed 11/06/18] Apixaban [Eliquis] 5 mg PO BID 09/21/17 [History Confirmed 11/06/18] atorvastatin 20 mg tablet 20 mg PO QDAY #90 tab 04/28/18 [Rx Confirmed 11/06/18] Sotalol Hydrochloride [Betapace (Beta Carolee)] 120 mg PO BID #90 tab 05/18/18 [Rx Confirmed 11/06/18] meclizine 12.5 mg tablet 12.5 mg PO BID PRN #60 tab 07/03/18 [Rx Confirmed 11/06/18] Escitalopram Oxalate [Lexapro] 10 mg PO QDAY 08/31/18 [History Confirmed 11/06/18] Fluticasone 0.05% [Flonase Nasal [place]] 1 spray NASAL DAILY #1 nasal.sry 08/31/18 [Rx Confirmed 11/06/18] Metoprolol Succinate 25 mg PO DAILY 08/31/18 [History Confirmed 11/06/18] Promethazine HCl 25 mg PO DAILY 08/31/18 [History Confirmed 11/06/18] Ranolazine [Ranexa] 500 mg PO BID 08/31/18 [History Confirmed 11/06/18] lisinopril 20 mg tablet 20 mg PO DAILY #90 tab 11/03/18 [Rx Confirmed 11/06/18] Amlodipine Besylate [Norvasc] 5 mg PO BID 11/06/18 [History Confirmed 11/06/18] Nitroglycerin [Nitrostat] 0.4 mg SUBLINGUAL Q5M PRN 11/06/18 [History Confirmed 11/06/18] PFSH Medical History SVT (supraventricular tachycardia) (Chronic) LORETTA (obstructive sleep apnea) (Chronic) Atherosclerotic heart disease of [place] coronary artery without angina pectoris (Chronic) Nephrolithiasis (Chronic) Anxiety (Chronic) PAF (paroxysmal atrial fibrillation) (Chronic) GERD (gastroesophageal reflux disease) (Chronic) Obesity (BMI 30-39.9) (Chronic) BPPV (benign paroxysmal positional vertigo) (Chronic) HLD (hyperlipidemia) (Chronic) Thoracic aortic aneurysm without rupture (Chronic) Surgical History History of left heart catheterization (Chronic) History of cardiac radiofrequency ablation (Resolved) laser lithotripsy (Acute 06/2018) H/O arthroscopic knee surgery (Resolved) History of back surgery (Resolved) History of right knee surgery (Resolved) Family History Brother Hypertension Mother Heart disease Colon cancer Sister Diabetes Sister Diabetes Sister Diabetes Social History Smoking Status: Never smoker alcohol intake: never substance use type: does not use caffeine: No what type of physical activity do you participate in: walking frequency: 1-2 times per week duration: 15-30 minutes/day seatbelt use: always do you feel safe at home: Yes HPI LEFT ELBOW: Details: ATTILA DEL CID is a 48 year old M here today for ED f/u 10/23/18 from injuring his left elbow falling down some stairs. He believes he hit the elbow against a wall. He has decreased rom, but that is chronic from a surgery when he was 14. Of note he has had increased pain in his elbow recently even prior to this injury he has new pain with sup/pro and tenderness to the mid epicondyle and common flexor tendon area. Denies numbness, tingling or other associated symptoms. Ortho Exam Left Elbow Skin/Wound: Yes CDI Test: No Pain w/ resist wrist ext, Yes Pain w/ resist wrist flex, No TTP Lateral Epicondyle, Yes TTP Medial Epicondyle, No Valgus Stress Test, No Varus Stress Test ROM: Yes Flexion 0-140 (110), Extension 0, Supination 0-90 and Pronation 0-80 ELBOW: not ttp tricep distally or olecranon, 7x4cm ecchymosis from IV in the distal forearm, ttp med epi and lateral epicondyle. Intact bicep and tricep tendons. No instability to collateral ligaments no swelling or open lesions. There is no blocking his motion. He does have pain over the common flexor origin with resisted wrist flexion. There is no pain over the common extensor origin with resisted wrist extension Supplemental Info Xrays reviewed, no evidence of fracture but he does have rounded chronic calcification seen in anterior joint recess, mild degenerative changes of the elbow joint Assessment AND Plan Problems 1. Forearm tendonitis M77.9 2. Loose body in left elbow M24.022 Plan He cannot take NSAIDs with his Eliquis Explained the anatomy of the forearm and the treatment options for his acute injury are limited unless he wants the loose bodies removed and we would refer to upper extremity specialist. He can use ice and tylenol prn and gave OT script otherwise rest is best for now. Instructed to alter his lifting. Follow up prn or sooner if pain, swelling, numbness or associated symptoms, or concerns develop. All questions answered. Patient in agreement of plan. Coding Level of Care Code Off vis,est,level 3 Diagnoses Forearm tendonitis M77.9 Loose body in left elbow M24.022 11/07/18 1004 <Electronically signed by Jaydne Franco DO> Date Jayden Franco DO Cosigndolores Signature: Date (if applicable) CC: No Primary Care Physician EMERGENCY DEPARTMENT Observed: 11/06/2018 Status: F Source: [place] SUMMARY 1:41 AM [facility] REPOSIT[facility] Medical Records Department [address] [place] [address] Emergency Department Summary 11/06/18 0139 MR#: [id number] Acct: [id number] Name: ATTILA DEL CID Rep #: [id number] : 1970 48 From: Shanique Omer MD PCP: Micheal Wilkinson MD Status: REG ER - ER Visit Summary Date of Service: 11/06/18 Chief Complaint: Abdominal pain nausea and diarrhea History of Present Illness: The patient is a 48 M who presents with abdominal pain nausea and diarrhea. His symptoms began suddenly about an hour ago. He has had 3 episodes of watery diarrhea. He did have some bright red blood mixed in with the last episode. He also notes some urinary frequency. He complains of right flank and right abdominal pain. He describes his pain as cramping. He does note prior history of kidney stones but states he usually does not have cramping type pain or diarrhea with this. No fevers. No vomiting. Physical Examination: Afebrile vitals are normal Moist mucous membranes Heart regular rate and rhythm Lungs are clear Abdomen soft nondistended he has some diffuse abdominal tenderness more so on the right as well as right CVA tenderness Test Results: Laboratory studies unremarkable including CBC CMP lipase urinalysis. CT the abdomen pelvis shows nonobstructing right renal calculi but otherwise normal. Emergency Department Course and Treatment: Patient was initially given IV fluids Bentyl and Zofran. I felt his abdominal pain and cramping was most likely related to intestinal spasm associated with his diarrhea. He reported no change with Bentyl. He was given a single dose of oxycodone here. Given his negative workup as above stable vitals I do not believe this is due to any acute surgical process and I do not see an indication for hospitalization. He was advised to follow-up as an outpatient. He understands to return for new or worsening symptoms. He was discharged. Treatment Plan: [] Disposition: Discharge Impression: Abdominal pain Diarrhea This note was generated with Cloudcity dictation software. It may contain incorrect words, spelling, and punctuation that were not noted in review of the chart prior to signing ED Disposition - Plan for ED Patient: Chief Complaint: Flank Pain Referrals: Micheal Wilkinson MD [Primary Care Provider] - What to do if you have Problems For any increased pain, shortness of breath, bleeding, nausea or vomiting, chest pain, or any unexpected problems, contact your Primary Care Provider. Call [facility] ([phone]) or report to the closest Emergency Room. Call 911 if necessary. 11/06/18 0141 <Electronically signed by Shanique Omer MD> Date Shanique Omer MD Cosigner Signature (If Indicated): Date CC: Micheal Wilkinson MD DISCHARGE INSTRUCTION Observed: 11/06/2018 Status: F Source: [place] 1:41 AM [facility] Medical Records Department [address] [place] [address] Discharge Instruction 11/06/18 0141 MR#: [id number] Acct: [id number] Name: ATTILA DEL CID Rep #: [id number] : 1970 48 From: Shanique Omer MD PCP: Micheal Wilkinson MD Status: REG ER ED Disposition - Plan for ED Patient: Chief Complaint: Flank Pain Instructions: ED Abdominal Pain Unkn Cause Male, ED Vomiting Diarrhea Nonspecific Ad Referrals: Micheal Wilkinson MD [Primary Care Provider] - What to do if you have Problems For any increased pain, shortness of breath, bleeding, nausea or vomiting, chest pain, or any unexpected problems, contact your Primary Care Provider. Call [facility] ([phone]) or report to the closest Emergency Room. Call 911 if necessary. 11/06/18 014 <Electronically signed by Shanique Omer MD> Date Shanique Omer MD Cosigner Signature (If Indicated): Date CC: Micheal Wilkinson MD URINALYSIS, COMPLETE Collected: 11/06/2018 Status: F Source: [place] 1:07 AM [facility] REPOSIT[facility] Order Comment: Order Date: 11/06/18 How was Urine Obtained? CLEAN CATCH TYPE CODE TESTS RESULT OUT OF RANGE REFERENCE UNITS LAB L400.3000 Yellow COLOR Normal Yellow LAB L400.3050 Clear Normal CLARITY Clear LAB L400.3200 Normal mg/dl Normal GLUCOSE, UR Normal LAB L400.3300 Negative mg/dL Normal BILIRUBIN URINE Negative LAB L400.3400 Negative mg/dl Normal KETONE UR Negative LAB L400.3465 1.002-1.030 Normal SP.GR. DIPSTX 1.015 LAB L400.3550 5.0 - 8.0 pH UR Normal 8.0 LAB L400.3600 Negative mg/dl PROT Normal DIPSTX Negative LAB L400.3700 Normal mg/dl Normal UROBILI Normal LAB L400.3750 Negative Normal NITRITE UR Negative LAB L400.3780 Negative /ul Normal OCCULT BLOOD-UR Negative LAB L400.3800 Negative /ul LEUK Normal ESTERASE Negative LAB L400.4050 0-5 /hpf WBC 0 Normal SEEN LAB L400.4100 0-5 /hpf 0 Normal RBC-UA SEEN LAB L400.4150 0-5 /hpf SQUAM 0 Normal EPI SEEN LAB L400.4300 None Seen /hpf 0 Normal BACTERIA SEEN LAB L400.4350 <or=2+ /hpf 0 Normal MUCUS, URINE SEEN Performed By: #### L400.0001 #### [facility] [address] [facility] [place], [address] ABDOMEN/PELVIS WITHOUT Observed: 11/06/2018 Status: F Source: [place] CONT 12:05 AM [facility] REPOS[facility] Imaging Services [address] [place] [address] Abdomen/Pelvis without Cont MR#: [id number] Acct: [id number] Name: ATTILA DEL CID Rep #: [id number] : 1970 M 48 From: Rodrick Ayala MD PCP: Micheal Wilkinson MD Status: REG ER Study: Abdomen/Pelvis without Cont Date of Exam: 11/06/18 Exam# [id number] Ordering Dr: Shanique Omer MD STUDY: CT ABDOMEN AND PELVIS WITHOUT CONTRAST REASON FOR EXAM: Male, 48 years old. Right flank pain, nausea and vomiting RADIATION DOSAGE (If Supplied By Facility): CTDIvol = ( 17.61 ) mGy, DLP = ( 1003.15 ) mGycm TECHNIQUE: Transaxial images were obtained from the dome of the diaphragm to the symphysis pubis without oral contrast, and without intravenous contrast. Sagittal and coronal images were reconstructed. Individualized dose optimization techniques were used for this CT. COMPARISON: None. FINDINGS: Minimal dependent atelectasis versus scar formation at the left lung base. The visualized portions of the heart are within normal limits. Normal liver. Gallbladder is contracted. No biliary duct dilatation. Normal spleen. Normal pancreas. Normal bilateral adrenal glands. Calcifications within the right renal pelvis measuring up to 4 mm in the lower pole. No hydronephrosis or hydroureter. Left kidney and ureter are normal. Normal visualized stomach. Normal small intestine. Normal colon. The appendix is visualized and appears normal. Normal abdominal aorta. Normal inferior vena cava. Normal retroperitoneum. Normal urinary bladder. Normal abdominal wall. Postoperative change from L4-L5 posterior spinal fusion with no evidence of periinstrumentation lucency. CT/Abdomen/Pelvis without Cont IMPRESSION: Nonobstructing right renal calculi measuring up to 4 mm. Electronically Signed: Rodrick Ayala MD at 0:45 EST Tel , Service support , CC: Shanique Omer MD; Micheal Wilkinson MD 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: Signed CBC W/DIFF, AUTOMATED Collected: 11/05/2018 Status: F Source: [place] 11:57 PM [facility] TYPE CODE TESTS RESULT OUT OF RANGE REFERENCE UNITS LAB L100.1000 4.4-11.0 K/mm3 Normal WBC 6.5 LAB L100.1200 4.6-6.2 M/mm3 Normal RBC 4.92 LAB L100.1300 13.0-16.5 g/dl Low HGB 12.4 LAB L100.1400 40-54 % Low HCT 39.8 LAB L100.1500 80-94 fL Normal MCV 80.9 LAB L100.1600 27.0-32.0 pg Low MCH 25.2 LAB L100.1700 32-36 g/gl Low MCHC 31.2 LAB L100.1810 11.6-14.6 % High RDW CV 16.0 LAB L100.1820 35.1-43.9 fl High RDW SD 46.9 LAB L100.1900 150-450 K/mm3 Normal PLT 354 LAB L100.2000 6.2-12.0 fl Normal MPV 9.2 LAB L100.2100 47-70 % Low NEUT% 46.3 LAB L100.2200 19-41 % Normal LY% 37.8 LAB L100.2300 0-10 % High MONO% 12.5 LAB L100.2400 0-5 % Normal EO% 2.0 LAB L100.2500 0-1 % Normal BASO% 0.9 LAB L100.2550 0.0-0.9 % Normal IM GRAN % 0.500 Result Comment: IG% - Immature Granulocytes (promyelocytes, myelocytes and metamyelocytes) > 1% indicates that a LEFT SHIFT is Present. LAB L100.2620 2.0-7.7 X10 3/uL Normal Absolute Neut 3.0 LAB L100.2720 0.83-4.51 X10 3/ul Normal Absolute Lymph 2.44 Performed By: #### L100.0100 #### [facility] [address] [place], [address] BASIC METABOLIC Collected: 11/05/2018 Status: F Source: [place] PROFILE ([facility]) 11:57 PM [facility] TYPE CODE TESTS RESULT OUT OF RANGE REFERENCE UNITS LAB L501.0100 74-106 mg/dL Low GLU 73 Result Comment: Please note revised GLUCOSE reference range effective 2017. LAB L501.1000 7-18 mg/dL Normal BUN 16 LAB L501.1100 0.70-1.30 mg/dL Normal CREAT,SERUM 0.86 Result Comment: The validity of the calculated GFR AND GFRAA in patients over 70 years has not been determined. Clinical correlation is essential. LAB L501.1110 >60 mL/min Normal EST GFR 100 Result Comment: Non- GFR Calc LAB L501.1115 >60 mL/min Normal EST GFR - AA 121 Result Comment: GFR Calc LAB L501.1255 ml/min Normal Estimated CRCL 111.88 LAB L501.1300 10-20 RATIO BUN/CRE Normal 18.5 LAB L501.2200 8.5-10 mg/dL .1 CA Normal 8.6 LAB L501.5300 136-14 mmol/L 5 NA Normal 143 LAB L501.5600 3.5-5. mmol/L 1 K Normal 3.8 LAB L501.5900 98-107 mmol/L High CL 111 LAB L501.6100 21.0-3 mmol/L 2.0 CO2 Normal 25.0 LAB L501.6200 5-15 GAP Normal 7 Performed By: #### L500.2500, L500.3400, L501.2450 #### [facility] [address] [place], [address] LIVER PROFILE Collected: 11/05/2018 Status: F Source: [place] 11:57 PM [facility] TYPE CODE TESTS RESULT OUT OF RANGE REFERENCE UNITS LAB L501.1500 6.4-8.2 g/dL Normal T PROT 7.7 LAB L501.1800 3.2-5.0 g/dL Normal ALB 4.1 LAB L501.1950 2.2-4.2 g/dL Normal GLOB 3.6 LAB L501.4100 15-37 U/L Normal AST 25 LAB L501.4305 45-117 U/L High ALK P 122 LAB L501.4405 16-61 U/L Normal ALT 36 LAB L501.4600 0.20-1.00 mg/dL Normal T BILI 0.30 LAB L501.4700 0.00-0.30 mg/dL Normal D BILI 0.06 Performed By: #### L500.2500, L500.3400, L501.2450 #### [facility] [address] [place], [place], [address] LIPASE Collected: 11/05/2018 Status: F Source: [place] 11:57 PM [facility] TYPE CODE TESTS RESULT OUT OF RANGE REFERENCE UNITS LAB L501.2450 73-393 U/L Normal LIPASE 203 Performed By: #### L500.2500, L500.3400, L501.2450 #### [facility] [address] [place], [place], [id number] PROGRESS Observed: 11/04/2018 Status: COMPLETED Source: [place] 2:00 PM [facility] REPOSITORY HNO ID: [id number] Author: Micheal Wilkinson Service: (none) Author Type: Physician Type: Progress Notes Filed: 11/04/2018 2:46 PM Note Text: Patient presents with: Establish Care HPI: Patient presents today for office visit for establishing care. Recently was hospitalized at [facility] for non cardiac chest pain. Saw inpatient cardiology. Has had multiple ER visits and work up for the same. Apparently had a normal heart cath in 2018 as well. Was thought to be gi or musculoskeletal. Does have a hx of atrial fib/svt that required ablation and also has an ectatic thoracic aorta but has had multiple recent ct scans which were negative. Did also see his public information coordinator who felt it was noncardiac. Just saw cardiology in [place] and is aware of his chest pain. He is seeing a surgeon in [place] for his aorta on November 18 although they have not been concerned with it thus far. Uses protonix for heartburn. No black or bloody stools. No constipation. Was having some vomiting and diarrhea last week. Has seen Dr. Davis for gi issues over a year ago. Had EGD and celiac tests last year. Not using nsaids. Muscle relaxers helped with pain more than anything. Is on two betablockers per cardiology recommendations. ranexa added recently. Psych:is on buspar and lexapro. Has been on them some time. Discussed possibly changing at some point. He is not sure they are working as well as they could. URO:has seen urology in the past for kidney stones. Discussed ct of abd findings. He does not have ureteral stones. Has several renal stones that are of doubtful significance. Has some back pain but had fallen down the steps a few times in the past. Has had an xray in the back in the past for same and hardware was ok. HLD:no myalgias. Anticoag: no bleeding or bruising. HYPERTENSION: bp is good today. Was low recently but has been fine. Ortho: has seen ortho in [facility]. MEDICATIONS: Current Outpatient Prescriptions: busPIRone (BUSPAR) 5 mg tablet Take 1 tablet by mouth twice daily. nitroglycerin sublingual (NITROQUICK) 0.4 mg SL tablet Dissolve 0.4 mg under the tongue every 5 minutes as needed. atorvastatin (LIPITOR) 20 mg tablet every day escitalopram oxalate (LEXAPRO) 10 mg tablet every day amLODIPine (NORVASC) 5 mg tablet Take 5 mg by mouth twice daily. apixaban (ELIQUIS) 5 mg tab tab(s) Take by mouth twice daily. meclizine (ANTIVERT) 12.5 mg tab Take 2 tablets by mouth twice daily as needed. lisinopril (ZESTRIL, PRINIVIL) 20 mg tablet Take 1 tablet by mouth once daily. pantoprazole DR (PROTONIX) 40 mg tablet Take 1 tablet by mouth once daily. albuterol HFA (PROVENTIL HFA, VENTOLIN HFA) 90 mcg/actuation inhaler Inhale 2 Puffs as instructed every 4 hours as needed. benzonatate (TESSALON PERLE) 100 mg capsule Take 1 capsule by mouth three times daily as needed. metoprolol succinate ER (TOPROL XL) 25 mg 24 hr tablet Take 1 tablet by mouth once daily. ranolazine ER (RANEXA) 500 mg 12 hr tablet Take 1 tablet by mouth twice daily. promethazine (PHENERGAN) 25 mg tablet Take 1 tablet by mouth every 6 hours as needed. sotalol (BETAPACE) 120 mg tablet Take 120 mg by mouth twice daily. No current facility-administered medications for this visit. ALLERGIES: ALLERGIES Allergen Reactions - Atorvastatin Other: See Comments Chest pain - Celebrex [Celecoxib] Vomiting Nausea - Clonidine Rash - Fentanyl GI Upset - Levofloxacin Rash pt reports to [facility] PT 04-13-2017 - Penicillin G Rash - Relpax [Eletriptan * Vomiting Nausea - Topamax [Topiramate] Vomiting - Vicodin [Hydrocodon* Vomiting - Wellbutrin [Bupropi* Vomiting Nausea PAST MEDICAL HISTORY Diagnosis Date - Acute right flank pain 03/25/2018 - Aneurysm of ascending aorta (HCC) - Aortic aneurysm (HCC) - Arthritis - Atrial fibrillation (HCC) - Calculi, ureter - Calculus of kidney - Hematuria - Hypertension - Kidney stones 03/25/2018 - Pneumonia - Psychiatric disorder anxiety - Renal calculus PAST SURGICAL HISTORY Procedure Laterality Date - BACK SURGERY HX 2015 FUSION, L4-L5 - COLONOSCOP W/ OR W/O BRSH SPEC 05/14/2014 Colonoscopy - EGD W/O OR W/BRUSH/WASH 05/14/2014 EGD - FRAGMENTING/KIDNEY STONE Right 2017 Lithotripsy - KNEE SURGERY HX Right 03/2017 patella replacement - [place] ANESTH,KNEE JOINT; NOS 12/2017 Left - REMOVAL OF KIDNEY STONE 04/2018 FAMILY HISTORY Problem Relation Age of Onset - Diabetes Mother - Colon Cancer Mother - Heart disease Mother - Hypertension Mother - Diabetes Sister - Skin Cancer Father Social History Marital status: Spouse name: Years of education: Number of children: 1 Social History Main Topics Smoking status: Never Smoker Smokeless tobacco: Never Used Alcohol use: No Drug use: No Other Topics Concern Caffeine Concern Yes Comment:low Reviewed current medications, allergies, past medical history, surgical history, family history and social history today. REVIEW OF SYSTEMS All other reviewed and negative other than HPI. HEALTH MAINTENANCE: Reviewed health maintenance issues today and recommended the following in detail. ANNUAL PCP TEAM CHRONIC DISEASE VISIT due on 02/04/1988 BP CONTROLLED (<130/80) due on 02/04/1988 VITALS: BP 124/80 (BP Site: Left Arm, BP Position: Sitting, BP Cuff Size: Large Adult) Pulse 98 Resp 18 Wt 108.4 kg (239 lb) BMI 33.33 kg/m? Last 4 Encounter Wt Readings: Date: Wt: 11/04/2018 108.4 kg (239 lb) 09/24/2018 104.3 kg (230 lb) 09/22/2018 102.1 kg (225 lb) 09/16/2018 104.3 kg (230 lb) PHYSICAL EXAMINATION: General appearance: Well appearing, alert, in no acute distress, well-hydrated, well nourished. Skin: Skin color, texture, turgor normal, no suspicious rashes or lesions Head: Normocephalic, no masses, lesions, tenderness or abnormalities} Neck: Supple, no adenopathy; thyroid symmetric, normal size, no bruits Lungs: lungs clear to auscultation. No wheezing, rhonchi, rales Chest wall is tender to palpation over left pectoral area which reproduces his pain. Heart: RRR without murmur, gallop, or rubs. No ectopy Abdomen: Normal abdominal exam, Abdomen soft, non-tender. Bowel sounds normal. No masses, organomegaly Extremities: No deformities, edema, skin discoloration, clubbing or cyanosis. Good capillary refill. Musculoskeletal: No joint swelling, deformity, or tenderness Peripheral pulses: Normal Psych: flat affect. Normal speech. ASSESSMENT/PLAN: 1. Essential hypertension - ICD9: 401.9, ICD10: I10 (primary diagnosis) - good control - Continue current medication(s) - Goal of BP <130/80 2. Chest pain at rest - ICD9: 786.50, ICD10: R07.9 Atypical chest pain, symptoms are not consistent with cardiac ischemia due to nonexertional nature of symptom and localization of the pain possible etiology include GERD and Costochondritis/chest wall pain Physical therapy. - CBC + DIFF 3. Ectatic thoracic aorta (HCC) - ICD9: 447.71, ICD10: I77.810 - see vascular surgeon for follow up. 4. Family history of colon cancer - ICD9: V16.0, ICD10: Z80.0 - keep up with regular colonscopy. 5. Paroxysmal atrial fibrillation (HCC) - ICD9: 427.31, ICD10: I48.0 - continue to see cardio 6. Kidney stones - ICD9: 592.0, ICD10: N20.0 7. Chest wall pain - ICD9: 786.52, ICD10: R07.89 - PHYSICAL THERAPY EVALUATION 8. Mixed hyperlipidemia - ICD9: 272.2, ICD10: E78.2 - to be determined upon return of lab results - Encouraged following a low fat, low cholesterol diet. - COMP METABOLIC PANEL - LIPID PANEL BASIC 9. Anxiety - ICD9: 300.00, ICD10: F41.9 - consider changing meds on recheck. Micheal Wilkinson MD RTO in six weeks. and prn. BRYANNA Observed: 11/04/2018 Status: COMPLETED Source: [facility] 2:00 PM [facility] REPOSITORY Office Visit (FAMPWS) ATTILA DEL CID ([id number]) 1970 M Date Time Provider Department 11/04/18 2:00 PM MICHEAL WILKINSON During your visit today, we recorded the following information about you: Pulse Respiration Blood pressure Weight 98/minute 18/minute 124/80 108.4 kg Micheal Wilkinson MD 11/04/2018 2:46 PM Signed Patient presents with: Establish Care HPI: Patient presents today for office visit for establishing care. Recently was hospitalized at [facility] for non cardiac chest pain. Saw inpatient cardiology. Has had multiple ER visits and work up for the same. Apparently had a normal heart cath in 2018 as well. Was thought to be gi or musculoskeletal. Does have a hx of atrial fib/svt that required ablation and also has an ectatic thoracic aorta but has had multiple recent ct scans which were negative. Did also see his public information coordinator who felt it was noncardiac. Just saw cardiology in [place] and is aware of his chest pain. He is seeing a surgeon in [place] for his aorta on November 18 although they have not been concerned with it thus far. Uses protonix for heartburn. No black or bloody stools. No constipation. Was having some vomiting and diarrhea last week. Has seen Dr. Davis for gi issues over a year ago. Had EGD and celiac tests last year. Not using nsaids. Muscle relaxers helped with pain more than anything. Is on two betablockers per cardiology recommendations. ranexa added recently. Psych:is on buspar and lexapro. Has been on them some time. Discussed possibly changing at some point. He is not sure they are working as well as they could. URO:has seen urology in the past for kidney stones. Discussed ct of abd findings. He does not have ureteral stones. Has several renal stones that are of doubtful significance. Has some back pain but had fallen down the steps a few times in the past. Has had an xray in the back in the past for same and hardware was ok. HLD:no myalgias. Anticoag: no bleeding or bruising. HYPERTENSION: bp is good today. Was low recently but has been fine. Ortho: has seen ortho in town. MEDICATIONS: Current Outpatient Prescriptions: busPIRone (BUSPAR) 5 mg tablet Take 1 tablet by mouth twice daily. nitroglycerin sublingual (NITROQUICK) 0.4 mg SL tablet Dissolve 0.4 mg under the tongue every 5 minutes as needed. atorvastatin (LIPITOR) 20 mg tablet every day escitalopram oxalate (LEXAPRO) 10 mg tablet every day amLODIPine (NORVASC) 5 mg tablet Take 5 mg by mouth twice daily. apixaban (ELIQUIS) 5 mg tab tab(s) Take by mouth twice daily. meclizine (ANTIVERT) 12.5 mg tab Take 2 tablets by mouth twice daily as needed. lisinopril (ZESTRIL, PRINIVIL) 20 mg tablet Take 1 tablet by mouth once daily. pantoprazole DR (PROTONIX) 40 mg tablet Take 1 tablet by mouth once daily. albuterol HFA (PROVENTIL HFA, VENTOLIN HFA) 90 mcg/actuation inhaler Inhale 2 Puffs as instructed every 4 hours as needed. benzonatate (TESSALON PERLE) 100 mg capsule Take 1 capsule by mouth three times daily as needed. metoprolol succinate ER (TOPROL XL) 25 mg 24 hr tablet Take 1 tablet by mouth once daily. ranolazine ER (RANEXA) 500 mg 12 hr tablet Take 1 tablet by mouth twice daily. promethazine (PHENERGAN) 25 mg tablet Take 1 tablet by mouth every 6 hours as needed. sotalol (BETAPACE) 120 mg tablet Take 120 mg by mouth twice daily. No current facility-administered medications for this visit. ALLERGIES: ALLERGIES Allergen Reactions - Atorvastatin Other: See Comments Chest pain - Celebrex [Celecoxib] Vomiting Nausea - Clonidine Rash - Fentanyl GI Upset - Levofloxacin Rash pt reports to [facility] PT 04-13-2017 - Penicillin G Rash - Relpax [Eletriptan * Vomiting Nausea - Topamax [Topiramate] Vomiting - Vicodin [Hydrocodon* Vomiting - Wellbutrin [Bupropi* Vomiting Nausea PAST MEDICAL HISTORY Diagnosis Date - Acute right flank pain 03/25/2018 - Aneurysm of ascending aorta (HCC) - Aortic aneurysm (HCC) - Arthritis - Atrial fibrillation (HCC) - Calculi, ureter - Calculus of kidney - Hematuria - Hypertension - Kidney stones 03/25/2018 - Pneumonia - Psychiatric disorder anxiety - Renal calculus PAST SURGICAL HISTORY Procedure Laterality Date - BACK SURGERY HX 2015 FUSION, L4-L5 - COLONOSCOP W/ OR W/O BRSH SPEC 05/14/2014 Colonoscopy - EGD W/O OR W/BRUSH/WASH 05/14/2014 EGD - FRAGMENTING/KIDNEY STONE Right 2017 Lithotripsy - KNEE SURGERY HX Right 03/2017 patella replacement - [place] ANESTH,KNEE JOINT; NOS 12/2017 Left - REMOVAL OF KIDNEY STONE 04/2018 FAMILY HISTORY Problem Relation Age of Onset - Diabetes Mother - Colon Cancer Mother - Heart disease Mother - Hypertension Mother - Diabetes Sister - Skin Cancer Father Social History Marital status: Spouse name: Years of education: Number of children: 1 Social History Main Topics Smoking status: Never Smoker Smokeless tobacco: Never Used Alcohol use: No Drug use: No Other Topics Concern Caffeine Concern Yes Comment:low Reviewed current medications, allergies, past medical history, surgical history, family history and social history today. REVIEW OF SYSTEMS All other reviewed and negative other than HPI. HEALTH MAINTENANCE: Reviewed health maintenance issues today and recommended the following in detail. ANNUAL PCP TEAM CHRONIC DISEASE VISIT due on 02/04/1988 BP CONTROLLED (<130/80) due on 02/04/1988 VITALS: BP 124/80 (BP Site: Left Arm, BP Position: Sitting, BP Cuff Size: Large Adult) Pulse 98 Resp 18 Wt 108.4 kg (239 lb) BMI 33.33 kg/m? Last 4 Encounter Wt Readings: Date: Wt: 11/04/2018 108.4 kg (239 lb) 09/24/2018 104.3 kg (230 lb) 09/22/2018 102.1 kg (225 lb) 09/16/2018 104.3 kg (230 lb) PHYSICAL EXAMINATION: General appearance: Well appearing, alert, in no acute distress, well-hydrated, well nourished. Skin: Skin color, texture, turgor normal, no suspicious rashes or lesions Head: Normocephalic, no masses, lesions, tenderness or abnormalities} Neck: Supple, no adenopathy; thyroid symmetric, normal size, no bruits Lungs: lungs clear to auscultation. No wheezing, rhonchi, rales Chest wall is tender to palpation over left pectoral area which reproduces his pain. Heart: RRR without murmur, gallop, or rubs. No ectopy Abdomen: Normal abdominal exam, Abdomen soft, non-tender. Bowel sounds normal. No masses, organomegaly Extremities: No deformities, edema, skin discoloration, clubbing or cyanosis. Good capillary refill. Musculoskeletal: No joint swelling, deformity, or tenderness Peripheral pulses: Normal Psych: flat affect. Normal speech. ASSESSMENT/PLAN: 1. Essential hypertension - ICD9: 401.9, ICD10: I10 (primary diagnosis) - good control - Continue current medication(s) - Goal of BP <130/80 2. Chest pain at rest - ICD9: 786.50, ICD10: R07.9 Atypical chest pain, symptoms are not consistent with cardiac ischemia due to nonexertional nature of symptom and localization of the pain possible etiology include GERD and Costochondritis/chest wall pain Physical therapy. - CBC + DIFF 3. Ectatic thoracic aorta (HCC) - ICD9: 447.71, ICD10: I77.810 - see vascular surgeon for follow up. 4. Family history of colon cancer - ICD9: V16.0, ICD10: Z80.0 - keep up with regular colonscopy. 5. Paroxysmal atrial fibrillation (HCC) - ICD9: 427.31, ICD10: I48.0 - continue to see cardio 6. Kidney stones - ICD9: 592.0, ICD10: N20.0 7. Chest wall pain - ICD9: 786.52, ICD10: R07.89 - PHYSICAL THERAPY EVALUATION 8. Mixed hyperlipidemia - ICD9: 272.2, ICD10: E78.2 - to be determined upon return of lab results - Encouraged following a low fat, low cholesterol diet. - COMP METABOLIC PANEL - LIPID PANEL BASIC 9. Anxiety - ICD9: 300.00, ICD10: F41.9 - consider changing meds on recheck. Micheal Wilkinson MD RTO in six weeks. and prn. Micheal Wilkinson MD 11/04/2018 2:27 PM Signed We would like to thank you for choosing to have us care for your medical needs. We are constantly working to try and make your office experience a good one and have developed new options for your medical care. We now offer OPEN ACCESS SCHEDULING in our office. Our office works a little different because we have a medical team that works together that includes Dr. Wilkinson, Familia Valdez PA, and our nursing staff. Open access means that you can choose to come in for routine visits or acute visits with our office five days a week, without calling first or scheduling an appointment ahead of time. This allows you to be seen when you want to be seen by just stopping at the lockstitch front maker on arrival. It also allows you to be taken care of by the same medical team each and every time you have an issue. This service is ONLY for patients of Dr. Wilkinson and Familia Valdez and, usually, our wait times are not different from our regular office visits. We also still also have scheduled office visits available for those who do not wish to be able to walk in to be seen. Open access hours are: Saturday 8 am-6 pm Saturday 8 am-4 pm Saturday 8 am-4 pm 8 am-6 pm Saturday 8 am-4 pm Please remember that we are also available by phone at [phone]. You can also contact our office directly by using the MESSAGE MY DOCTOR tab on your my chart for non emergent questions or issues. Referring Provider: SELF [[id number]] Allergies As of Date: 11/04/2018 Noted Allergy Reaction ATORVASTATIN 10/09/2017 14 - Other: See Comments Comments: Chest pain CELEBREX (CELECOXIB) 07/17/2016 11 - Vomiting Comments: Nausea CLONIDINE 07/17/2016 2 - Rash FENTANYL 07/17/2016 8 - GI Upset LEVOFLOXACIN 04/13/2017 2 - Rash Comments: pt reports to [facility] PT 6-24-2017 PENICILLIN G 12/30/2013 2 - Rash RELPAX (ELETRIPTAN HBR) 07/17/2016 11 - Vomiting Comments: Nausea TOPAMAX (TOPIRAMATE) 07/17/2016 11 - Vomiting VICODIN (HYDROCODONE-ACETAMINOPHE*12/30/2013 11 - Vomiting WELLBUTRIN (BUPROPION HCL) 07/17/2016 11 - Vomiting Comments: Nausea Date Reviewed: 11/04/2018 Reviewed by: Estella Kearns - Fully Assessed Reason for Visit: Establish Care [42] Primary Visit Diagnosis:Essential hypertension [I10] Other Visit Diagnoses:Chest pain at rest [R07.9] Ectatic thoracic aorta (HCC) [I77.810] Family history of colon cancer [Z80.0] Paroxysmal atrial fibrillation (HCC) [I48.0] Kidney stones [N20.0] Chest wall pain [R07.89] Mixed hyperlipidemia [E78.2] Anxiety [F41.9] Order(s):benzonatate (TESSALON PERLE) 100 mg capsuleTake 1 capsule by mouth three times daily as needed.Disp: 30 capsuleRfl: 0 busPIRone (BUSPAR) 5 mg tabletTake 1 tablet by mouth twice daily.Disp: Rfl: metoprolol succinate ER (TOPROL XL) 25 mg 24 hr tabletTake 1 tablet by mouth once daily.Disp: 30 tabletRfl: ranolazine ER (RANEXA) 500 mg 12 hr tabletTake 1 tablet by mouth twice daily.Disp: Rfl: promethazine (PHENERGAN) 25 mg tabletTake 1 tablet by mouth every 6 hours as needed.Disp: Rfl: CBC + DIFF [SQCBCDIF] Order #: [id number] FUTURE COMP METABOLIC PANEL [SQCMP] Order #: [id number] FUTURE LIPID PANEL BASIC [SQLIPB] Order #: [id number] FUTURE PHYSICAL THERAPY EVALUATION [[id number]] Order #: [id number]: 1 Prescriptions as of 11/04/2018 Sig: BUSPIRONE 5 MG TABLET Take 1 tablet by mouth twice * NITROGLYCERIN 0.4 MG SUBLINGU* Dissolve 0.4 mg under the ton* ATORVASTATIN 20 MG TABLET every day ESCITALOPRAM 10 MG TABLET every day AMLODIPINE 5 MG TABLET Take 5 mg by mouth twice chrystal* APIXABAN 5 MG TABLET Take by mouth twice daily. MECLIZINE 12.5 MG TABLET Take 2 tablets by mouth twice* LISINOPRIL 20 MG TABLET Take 1 tablet by mouth once d* PANTOPRAZOLE 40 MG TABLET,DEL* Take 1 tablet by mouth once d* ALBUTEROL SULFATE HFA 90 MCG/* Inhale 2 Puffs as instructed * BENZONATATE 100 MG CAPSULE Take 1 capsule by mouth three* METOPROLOL SUCCINATE ER 25 MG* Take 1 tablet by mouth once d* RANOLAZINE ER 500 MG TABLET,E* Take 1 tablet by mouth twice * PROMETHAZINE 25 MG TABLET Take 1 tablet by mouth every * SOTALOL 120 MG TABLET Take 120 mg by mouth twice da* Problem List As Of Date 11/04/2018 Noted Resolved Primary osteoarthritis of right knee [M17.11] INVALID FOR* Chest pain at rest [R07.9] INVALID FOR* More... HTN (hypertension) [I10] INVALID FOR* Atrial fibrillation (HCC) [I48.91] INVALID FOR* More... Atypical chest pain [R07.89] INVALID FOR*11/04/2018 Patellofemoral instability of right knee with p*INVALID FOR* Kidney stones [N20.0] INVALID FOR* Acute right flank pain [R10.9] INVALID FOR*11/04/2018 Ectatic thoracic aorta (HCC) [I77.810] INVALID FOR* More... Renal calculus, right [N20.0] INVALID FOR* TIA (transient ischemic attack) [G45.9] INVALID FOR* Calculus of kidney [N20.0] INVALID FOR*11/04/2018 More... Family history of colon cancer [Z80.0] INVALID FOR* Anxiety [F41.9] INVALID FOR* Other instructions from your clinician: We would like to thank you for choosing to have us care for your medical needs. We are constantly working to try and make your office experience a good one and have developed new options for your medical care. We now offer OPEN ACCESS SCHEDULING in our office. Our office works a little different because we have a medical team that works together that includes Dr. Wilkinson, Familia AGUILERA, and our nursing staff. Open access means that you can choose to come in for routine visits or acute visits with our office five days a week, without calling first or scheduling an appointment ahead of time. This allows you to be seen when you want to be seen by just stopping at the lockstitch front maker on arrival. It also allows you to be taken care of by the same medical team each and every time you have an issue. This service is ONLY for patients of Dr. Wilkinson and Familia Valdez and, usually, our wait times are not different from our regular office visits. We also still also have scheduled office visits available for those who do not wish to be able to walk in to be seen. Open access hours are: Saturday 8 am-6 pm Saturday 8 am-4 pm Saturday 8 am- 4 pm 8 am- 6 pm Saturday 8 am-4 pm Please remember that we are also available by phone at [phone]. You can also contact our office directly by using the MESSAGE MY DOCTOR tab on your my chart for non emergent questions or issues. Prescriptions ordered this encounter Disp Refills Start End BENZONATATE 100 MG CAPSULE 30 c* 0 11/04/2018 Class: Med Update Route: ORAL Sig: Take 1 capsule by mouth three times daily as needed. BUSPIRONE 5 MG TABLET 11/04/2018 Class: Med Update Route: ORAL Sig: Take 1 tablet by mouth twice daily. METOPROLOL SUCCINATE ER 25 MG TABLET* 30 t* 11/04/2018 Class: Med Update Route: ORAL Sig: Take 1 tablet by mouth once daily. RANOLAZINE ER 500 MG TABLET,EXTENDED* 11/04/2018 Class: Med Update Route: ORAL Sig: Take 1 tablet by mouth twice daily. PROMETHAZINE 25 MG TABLET 11/04/2018 Class: Med Update Route: ORAL Sig: Take 1 tablet by mouth every 6 hours as needed. Medications Discontinued During This Encounter cefUROXime (CEFTIN) 250 mg tablet 11/04/2018 Class: Historical Med Route: ORAL Sig: Take 250 mg by mouth twice daily. Disc: Reason for discontinue is not on file. cyclobenzaprine (FLEXERIL) 10 mg tab* 21 t* 0 08/11/2018 11/04/2018 Class: Print RX Route: ORAL Sig: Take 1 tablet by mouth three times daily as needed for Muscle Spasm (or pain). Patient not taking: Reported on 11/04/2018 Disc: Reason for discontinue is not on file. isosorbide mononitrate ER (IMDUR) 30* 11/04/2018 Class: Historical Med Route: ORAL Sig: Take 30 mg by mouth once daily. Disc: Reason for discontinue is not on file. cyclobenzaprine (FLEXERIL) 10 mg tab* 21 t* 0 08/11/2018 11/04/2018 Class: Print RX Route: ORAL Sig: Take 1 tablet by mouth three times daily as needed for Muscle Spasm (or pain). Patient not taking: Reported on 11/04/2018 Disc: Reason for discontinue is not on file. lidocaine (LIDODERM) 5 % 10 P* 0 08/11/2018 11/04/2018 Class: Print RX Route: TRANSDERMAL Sig: Apply 1 Patch as directed every 24 hours. Remove old patch prior to placing a new patch. Patient not taking: Reported on 11/04/2018 Disc: Reason for discontinue is not on file. ondansetron orally disintegrating (Z* 8 ta* 0 06/15/2018 11/04/2018 Class: Print RX Route: ORAL Sig: Take 1 tablet by mouth every 4 hours as needed for Nausea/Vomiting. Disc: Reason for discontinue is not on file. promethazine (PHENERGAN) 25 mg tablet 8 ta* 0 08/04/2018 11/04/2018 Class: Print RX Route: ORAL Sig: Take 1 tablet by mouth every 4 hours as needed. Disc: Reason for discontinue is not on file. methocarbamol (ROBAXIN) 750 mg tablet 18 t* 0 06/15/2018 11/04/2018 Class: Print RX Route: ORAL Sig: Take 1 tablet by mouth four times daily. Patient not taking: Reported on 11/04/2018 Disc: Reason for discontinue is not on file. BABY ASPIRIN ORAL 11/04/2018 Class: Historical Med Route: ORAL Sig: Take 1 tablet by mouth once daily. Disc: Reason for discontinue is not on file. tamsulosin ER (FLOMAX) 0.4 mg cp24 02/18/2018 11/04/2018 Class: Historical Med Sig: every day Disc: Reason for discontinue is not on file. gabapentin (NEURONTIN) 300 mg capsule 07/29/2017 11/04/2018 Class: Historical Med Route: ORAL Sig: Take 100 mg by mouth daily at bedtime. Disc: Reason for discontinue is not on file. busPIRone (BUSPAR) 5 mg tablet 11/04/2018 Class: Historical Med Route: ORAL Sig: Take 5 mg by mouth. Disc: Reason for discontinue is not on file. Disposition: Return in about 6 weeks (around 12/16/2018). Follow-up and Disposition History Recorded Questionnaire: JAYNE-7 ANXIETY SCALE Feeling nervous, anxious, or on edge -> 1 Several days Not being able to stop or control worrying -> 1 Several days Worrying too much about different things -> 0 Not at all sure Trouble relaxing -> 3 Nearly every day Being so restless that it's hard to sit still -> 1 Several days Being easily annoyed or irritable -> 0 Not at all sure Feeling afraid as if something awful might happen -> 1 Several days JAYNE-7 Anxiety Score -> 7 If you checked off any problems, how difficult have these problems made it for you to do your work, take care of things at home, or get along with other people? -> Not difficult at all Encounter Status:Closed by MICHEAL WILKINSON MD on 11/04/18 DISCHARGE SUMMARY Observed: 10/31/2018 Status: F Source: [facility] 3:10 PM SYSTEM REPOSITORY CDU Discharge Summary Attila Del Cid : 1970 ADMIT DATE: 10/31/2018 DISCHARGE DATE: 10/31/2018 PRIMARY CARE PHYSICIAN: Wyatt Street MD VISIT STATUS: Observation CODE STATUS: Prior DISCHARGE DIAGNOSES: Active Problems: Chest pain Flank pain Resolved Problems: * No resolved hospital problems. * HOSPITAL COURSE: 48 y.o. male who presents with2 chief complaint of flank pain, initially. Pt was seen at [place] ED with complaints of flank pain, once CT was completed and deemed unremarkable, he noted that he began to have chest pain, so cardiac work-up was started. Pt admitted to taking his own nitroglycerin in the ED x3 without relief. Cardiac work-up was benign, the patient did not feel comfortable going home. He notes chest pain is mid-sternal, non-radiating, pressure-like, not reproducible, and intermittent. Denies palpitations, dizziness, diaphoresis, and shortness of breath. No other aggravating or alleviating factors. Denies fever, chills, nausea, emesis, recent illness, and sick contacts. Pt was seen at [facility] ED on 10/28/18 for the same symptoms and discharged with negative cardiac work-up and negative CTA of chest, and instructed to follow-up with his acid condenser Dr. Andrew. Pt noting previous heart attack 4 years ago at this hospital. No documentation of this has been identified - will continue to look through EMR. Pt has multiple visits for chest pain at multiple facilities in area. Per pt his ablation for afib was done at [facility] in 10/06, he notes April of 2018 he underwent a heart catheterization at [facility] resulting in no stents. May of 2018 he notes he has a stress test done at [place] that was positive. Diagnostic test completed during current hospital course: D-Dimer 0.36 wnls Serum WBC 6.4 wnls Negative serial troponin's x 2 EKG: NSR, rate 70 Chest x-ray: See below CT Chest with contrast: See below CT Abdomen and Pelvis without contrast: See below Please review all pertinent test results under significant diagnostic studies listed below. Past Medical History: Diagnosis Date ? A-fib (HCC) ? Aortic aneurysm (HCC) ? CHF (congestive heart failure) (HCC) ? Depression ? GERD (gastroesophageal reflux disease) ? Hyperlipidemia ? Hypertension ? Restless leg syndrome ? TIA (transient ischemic attack) Past Surgical History: History reviewed. No pertinent surgical history. Allergies: Bupropion; Fentanyl; Celecoxib; Eletriptan; Hydrocodone; Hydrocodone-acetaminophen; Topiramate; Toradol [ketorolac tromethamine]; Clonidine; Levofloxacin; and Penicillin g Social History: TOBACCO: reports that he has never smoked. He has never used smokeless tobacco. ETOH: has no alcohol history on file. 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 Eddy Dudley in its entirety in EHR). Impression: 1. NONCARDIAC CHEST PAIN, MAY BE GASTROINTESTINAL OR MUSCULOSKELETAL IN ORIGIN. Plan is aggressive control of coronary risk factor by PCP including weight, hypertension, and hyperlipidemia. 2. Symptomatic workup. If the patient continued to have symptoms, may need a GI evaluation. PHYSICAL EXAM: General appearance:?alert, appears stated age and cooperative. NAD. Cooperative with exam. Skin:?Skin color, texture, turgor normal. No rashes or lesions HEENT:?Head: Normocephalic, no lesions, without obvious abnormality. Neck:?no adenopathy, no carotid bruit, no JVD, supple, symmetrical, trachea midline and thyroid not enlarged, symmetric, no tenderness/mass/nodules Lungs:?clear to auscultation bilaterally. No respiratory distress and or accessory muscle use. Chest Wall:?No tenderness to palpation of anterior chest wall, sternum, and or bilateral arms/ anterior shoulders. Heart:?regular rate and rhythm, S1, S2 normal, no murmur, click, rub or gallop Abdomen:?soft, non-tender; bowel sounds normal; no masses, ?no organomegaly. No peritoneal signs. Extremities:?extremities normal, atraumatic, no cyanosis or edema. No extremity pain or calf tenderness. +2 PP Neurologic:?Mental status: Alert, oriented, thought content appropriate. Clear speech. DISCHARGE MEDICATIONS: Attila Del Cid Home Medication Instructions SOURAV:[id number] Printed on:10/31/18 2463 Medication Information amLODIPine (NORVASC) 5 MG tablet Take 5 mg by mouth 2 times daily apixaban (ELIQUIS) 5 MG TABS tablet Take by mouth 2 times daily atorvastatin (LIPITOR) 20 MG tablet Take 20 mg by mouth daily busPIRone (BUSPAR) 5 MG tablet Take 5 mg by mouth 2 times daily escitalopram (LEXAPRO) 10 MG tablet Take 10 mg by mouth daily fluticasone (FLONASE) 50 MCG/ACT nasal spray 1 spray by Each Nare route daily lisinopril (PRINIVIL;ZESTRIL) 20 MG tablet Take 20 mg by mouth daily meclizine (ANTIVERT) 12.5 MG tablet Take 12.5 mg by mouth 3 times daily as needed metoprolol tartrate (LOPRESSOR) 25 MG tablet Take 25 mg by mouth daily nitroglycerin (NITRO-BID) 2 % ointment Place 1 inch onto the skin every 6 hours ondansetron (ZOFRAN) 4 MG tablet Take 1 tablet by mouth every 8 hours as needed for Nausea pantoprazole (PROTONIX) 40 MG tablet Take 40 mg by mouth daily sotalol (BETAPACE) 120 MG tablet Take 120 mg by mouth 2 times daily DIET: General, low sodium, low cholesterol ACTIVITY: As tolerated SIGNIFICANT DIAGNOSTIC STUDIES: CT CHEST W CONTRAST ? IMPRESSION: ? 1. Thoracic aorta demonstrates a maximum caliber of 4.1 center is measured perpendicular to the long axis II. Mild degree of tubular bronchiectasis within the left lower lobe without other abnormality. ? Report Dictated on Workstation: [id number] --- Final --- ? Dictated: 10/31/2018 1:08 am Dictating Physician: MD HERBERT JEFFREY Signed Date and Time: 10/31/2018 1:13 am Signed by: MD HERBERT JEFFREY Transcribed Date and Time: 10/31/2018 1:08 ? ? CT Abdomen Pelvis Wo Contrast ? IMPRESSION: Right renal calculi without hydronephrosis. ? Colonic diverticula. Postsurgical spine changes. ? Report Dictated on --- Final --- ? Dictated: 10/30/2018 8:38 pm Dictating Physician: MD RIOS AHMAD Signed Date and Time: 10/30/2018 8:49 pm Signed by: MD RIOS AHMAD Transcribed Date and Time: 10/30/2018 8:38 10/31/2018 ?1:32 PM - [place], [facility] In[facility] Cardiology Results From Merge/Epiphany Narrative ? [facility] [employer] ? Test Date: ? ?2018-10-30 Pat Name: ? ? Attila Fordtiburcio ?Department: ? 1DEM MRN: ?[id number] ? Room: ? 1CDU Gender: ? ? ? 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 CLS : ?1970 ? Requested By: SANJAY Order Number: [id number] ?Reading : ? Vidal Tripp ? Measurements Intervals ?[place] ? Rate: ? 70 ? P: ?16 IL: ? 161 ?QRS: ?9 QRSD: ? 97 ? T: ?21 QT: ? 406 ? QTc: ?439 ? Interpretive Statements Sinus rhythm Electronically Signed On 10-31-2018 13:31:45 EST by Vidal Tripp CBC: Recent Labs 10/30/182148 WBC 6.4 HGB 13.3 HCT 40.0 PLT 338 BMP: Recent Labs 10/30/182148 NA 140 K 4.2 CL 105 CO2 26 BUN 18 CREATININE 1.05 GLUCOSE 78 CALCIUM 9.3 TROPONIN: Recent Labs 10/30/18 2149 10/31/18 0651 TROPONINI <0.012 <0.012 10/30/2018 11:19 PM - [place], [facility] Lab Results From [employer] Interactive Component Results Component Value Ref Range & Units Status Collected Lab D-Dimer, Quant 0.36 0.00 - 0.50 mg/L Final 10/30/2018 10:43 PM [facility] Lab [employer] D-Dimer values of <0.50 mg/L FEU can be used in combination with a pre-test probability model (e.g. Well's) to exclude pulmonary embolism (PE) disease, as well as an aid in the diagnosis of deep vein thrombosis (DVT). UA: Recent Labs 10/30/182012 APPEARANCE Clear COLORU Yellow LABSPEC 1.020 LABPH 6.0 NITRU NEG LEUKOCYTESUR Trace GLUCOSEU NEG (Normal) KETUA 1+ (small) OCBU Negative RBCUA Negative WBCUA 0-2 BACTERIA Few (1-5) PENDING STUDIES: None TREATMENTS: No changes have been made to home going medications. RECOMMENDED NEXT STEPS: PCP follow up for further evaluation as per home going discharge instructions. DISPOSITION: Patient was discharged to home in stable condition. Follow up with Wyatt Street MD as specified on the Discharge Instructions. SIGNED: DIANA FITZPATRICK APRN-[place] 10/31/2018, 11:41 PM TROPONIN I Collected: 10/31/2018 Status: F Source: [employer] 6:51 AM SYSTEM REPOSITORY TYPE CODE TESTS RESULT OUT OF RANGE REFERENCE UNITS LAB TROP4 0.000-0.034 ng/mL Normal Troponin I < 0.012 Result Comment: 0.046 - 0.400 = Indeterminate > 0.400 = Consider Myocardial Injury Performed By: #### TROPN #### [employer] [address] [place] [id number] [address] CHEST W/ CONTRAST Observed: 10/31/2018 Status: F Source: [employer] 1:08 AM SYSTEM REPOSITORY Patient Name: ATTILA DEL CID CT Exam Date/Time 10/31/2018 00:30:[address] Chest w/ Contrast Ordering Physician [id number] MICHEAL ROSARIO Accession Number [id number] CPT4 Codes 49133 (), Q9967 (CT ISOVUE 370MG/[id number]) Reason For Exam AORTIC DZ, NON-TRAUMATIC, KNOWN OR SUSPECT Report CT CHEST WITH CONTRAST: CLINICAL INDICATION: Chest pain with dysrhythmia and thoracic aneurysm. TECHNIQUE: Transaxial sequence from apices through the bases during dynamic infusion of 75 mL intravenous contrast with 1 mm reconstruction interval. Coronal and sagittal reconstructions included. Dose reduction was employed with automated exposure control. COMPARISON: CTA chest from 08/16/2018 FINDINGS: Lungs: No consolidation or atelectasis. Mild degree of tubular bronchiectasis is noted within the left lower lobe. There is no parenchymal or pleural-based mass. Pleural fluid: None. Heart/Great vessels: The thoracic aorta, when measured perpendicular to the long axis on sagittal and coronal reconstruction orientation demonstrates maximum caliber of 4.1 cm. The descending aorta demonstrates a caliber of 2.2 cm. Remaining great vessels demonstrate no other abnormality. Mediastinum/Ruben: No mass identified. Chest wall and lower neck: Normal. Upper abdomen: No abnormality throughout the visualized portions of liver. Visualized portions of the spleen are normal. The adrenals are unremarkable. Osseous structures: No abnormality. IMPRESSION: 1. Thoracic aorta demonstrates a maximum caliber of 4.1 center is measured perpendicular to the long axis II. Mild degree of tubular bronchiectasis within the left lower lobe without other abnormality. Report Dictated on Workstation: [id number] Final Dictated: 10/31/2018 1:08 am Dictating Physician: MD HERBERT JEFFREY Signed Date and Time: 10/31/2018 1:13 am Signed by: MD HERBERT JEFFREY Transcribed Date and Time: 10/31/2018 1:08 D-DIMER, INNOVANCE Collected: 10/30/2018 Status: F Source: [employer] 10:43 PM SYSTEM REPOSITORY TYPE CODE TESTS RESULT OUT OF RANGE REFERENCE UNITS LAB 2DDI 0.00-0.50 mg/L Normal D-Dimer, 0.36 [employer] Result Comment: [employer] D-Dimer values of <0.50 mg/L FEU can be used in combination with a pre-test probability model (e.g. Well's) to exclude pulmonary embolism (PE) disease, as well as an aid in the diagnosis of deep vein thrombosis (DVT). Performed By: #### DDI2 #### [facility] [employer] [address] [address] HEMOGRAM W/ AUTODIFF Collected: 10/30/2018 Status: F Source: [employer] 9:49 PM SYSTEM REPOSITORY TYPE CODE TESTS RESULT OUT OF REFERENCE UNITS RANGE LAB IWBC 3.6-10.7 10*3/uL WBC Normal 6.4 LAB RBC 4.40-5.90 10*6/uL RBC Normal 5.10 LAB HGB 13.0-18.0 g/dL Hemoglobin Normal 13.3 LAB HCT 40.0-52.0 % Hematocrit Normal 40.0 LAB MCV 80.0-98.0 fL Low MCV 78.5 LAB MCH 26.0-34.0 pg MCH Normal 26.0 LAB MCHC 32.0-36.0 % MCHC Normal 33.2 LAB RDW 11.5-14.5 % RDW High 16.1 LAB PLT 140-440 10*3/uL Platelet Normal 338 LAB MPV 7.4-10.4 fL MPV Normal 7.7 LAB GRAN% 40.0-80.0 % Granulocytes Normal 56.3 LAB LYMP% 20.0-40.0 % Lymphocytes Normal 30.9 LAB MONO% 2.0-10.0 % Monocytes Normal 9.7 LAB EOS% 1.0-6.0 % Eosinophils Normal 2.5 LAB BAS% 0.0-2.0 % Basophils Normal 0.6 LAB ANC 1.8-7.0 10*3/uL Abs Normal Neutrophile Cnt 3.6 LAB ALC 1.0-4.3 10*3/uL Abs Lymph Cnt Normal 2.0 LAB AMC 0.0-0.8 10*3/uL Abs Monocyte Normal Cnt 0.6 LAB AEC 0.0-0.5 10*3/uL Abs Eosin Cnt Normal 0.2 LAB ABC 0.0-0.2 10*3/uL Abs Baso Cnt Normal 0.0 Performed By: #### HEMDF, BMP3, TROPN #### [facility] [employer] [address] [address] BASIC METABOLIC PANEL Collected: 10/30/2018 Status: F Source: [employer] 9:49 PM SYSTEM REPOSITORY TYPE CODE TESTS RESULT OUT OF RANGE REFERENCE UNITS LAB NA3 135-145 mmol/L Sodium Normal 140 LAB K3 3.5-5.1 mmol/L Normal Potassium 4.2 LAB CL3 98-107 mmol/L Chloride Normal 105 LAB CO23 22-30 mmol/L Carbon Normal Dioxide 26 LAB ANIN3 NA Anion Gap 9 LAB GLUC3 70-100 mg/dL Glucose Normal 78 LAB BUN3 7-20 mg/dL Urea Normal Nitrogen 18 LAB CRET3 0.52-1.25 mg/dL Normal Creatinine 1.05 LAB GF3BR >60 mL/min eGFR > 60.0 LAB GF3WR >60 mL/min eGFR OTHER > 60.0 Result Comment: Source- MDRD equation with creatinine calibration to IDMS(NKDEP) eGFR not recommended for drug dose adjustment LAB CA3 8.4-10.4 mg/dL Normal Calcium 9.3 Performed By: #### HEMDF, BMP3, TROPN #### [employer] [address] [place] [id number] TROPONIN I Collected: 10/30/2018 Status: F Source: [employer] 9:49 PM SYSTEM REPOSITORY TYPE CODE TESTS RESULT OUT OF RANGE REFERENCE UNITS LAB TROP4 0.000-0.034 ng/mL Normal Troponin I < 0.012 Result Comment: 0.046 - 0.400 = Indeterminate > 0.400 = Consider Myocardial Injury Performed By: #### HEMDF, BMP3, TROPN #### [facility] [address] [place] [address] ABDOMEN/PELVIS W/O Observed: 10/30/2018 Status: F Source: [employer] CONTRAST 8:38 PM SYSTEM REPOSITORY Patient Name: ATTILA DEL CID CT Exam Date/Time 10/30/2018 20:30:[address] Abdomen/Pelvis (No PO, No IV) Ordering Physician MICHEAL MILLER Accession Number [id number] CPT4 Codes 05652 (CT Abdomen/Pelvis (No PO, No IV)) Reason For Exam PAIN, FLANK COLIC/KIDNEY Report ABDOMINAL AND PELVIC CT WITHOUT CONTRAST History: Right abdominal/flank pain, urinary calculi, nausea and vomiting Comparison CT: 08/15/2018 Technique: Multislice volume acquisition abdominal and pelvic axial CT sections from the diaphragm through the symphysis pubis without oral or IV contrast enhancement . Multiplanar sagittal and coronal reconstructed images also obtained. Findings: Partially visualized lung bases show linear small atelectasis. Abdominal CT shows unremarkable unenhanced appearance of the liver, spleen, pancreas, both adrenals, and the left kidney. Right kidney has at least two, up to 3mm calculi. There are no ureteral calculi or hydronephrosis. Gallbladder is mildly distended. Pelvic CT shows decompressed urinary bladder without calculus. There are prostate calcifications. The exam is limited without contrast enhancement. There is no abdominopelvic fluid collections, sizable lymphadenopathy, soft tissue inflammation, or significant bowel distention. There is mild colonic diverticulosis without diverticulitis or appendicitis. There is mild spondylosis. There is partial laminectomy with surgical fusion of the lower lumbar spine. IMPRESSION: Right renal calculi without hydronephrosis. Colonic diverticula. Postsurgical spine changes. Report Dictated on Final Dictated: 10/30/2018 8:38 pm Dictating Physician: MD RIOS AHMAD Signed Date and Time: 10/30/2018 8:49 pm Signed by: MD RIOS AHMAD Transcribed Date and Time: 10/30/2018 8:38 URINALYSIS,MACRO Collected: 10/30/2018 Status: F Source: [employer] 8:13 PM SYSTEM REPOSITORY TYPE CODE TESTS RESULT OUT OF REFERENCE UNITS RANGE LAB APPUR Clear NA Appearance Clear LAB COLUR Lt. Yellow NA Color Yellow LAB USG 1.005-1.030 NA Specific Normal [place],Urine 1.020 LAB UPH 5.0-8.0 NA pH,Urine Normal 6.0 LAB ULUK Negative NA Leukocytes Trace LAB UNIT Negative NA Nitrites NEG LAB UPRO Negative mg/dL Total Protein,Urine Trace (15) LAB UGLU Negative mg/dL Glucose,Urine NEG (Normal) LAB UKET Negative mg/dL Ketone,Urine 1+ (small) LAB UURO 0-1 mg/dL Urobilinogen 1.0 LAB UBIL Negative NA Bilirubin,Ur Negative LAB UBLD Negative {RBC}/uL Occult Blood,Ur Negative Performed By: #### UAMAC, UAMIC #### [employer] [address] [address] URINALYSIS,MICROSCOPIC Collected: Status: F Source: [facility] 10/30/2018 8:13 PM HEALTH SYSTEM REPOSITORY TYPE CODE TESTS RESULT OUT OF REFERENCE UNITS RANGE LAB WBCU 0-5 /[HPF] 0 WBC,Urine - 2 LAB RBCU 0-2 /[HPF] RBC,Urine Negative LAB EPIU 3-5 /[HPF] 0 Epithelial Cells - 2 LAB CRISTINA Negative NA Bacteria Few (1-5) Performed By: #### UAMAC, UAMIC #### [address] [address] 12 LEAD ELECTROCARDIOGRAM Observed: 10/29/2018 Status: F Source: [facility] 2:39 PM [facility] HOSPITAL REPOSITORY [facility] Cardiovascular Services [address] [place] [address] 12 Lead EKG 10/27/18 1733 MR#: [id number] Acct: [id number] Name: ATTILA DEL CID Rep #: [id number] : 1970 48 From: Asael Hale MD Attending Dr: Status: DEP ER Ordering Dr: Attila Hutchinson DO Date: 10/27/18 Location: ED Sex: M C Admitted: Test Reason : Blood Pressure : / mmHG Vent. Rate : 106 BPM Atrial Rate : 106 BPM P-R Int : 168 ms QRS Dur : 074 ms QT Int : 338 ms P-R-T Axes : 008 000 010 degrees QTc Int : 448 ms Sinus tachycardia Otherwise normal ECG Confirmed by ALEXIA CONNOR, ASAEL ([id number]), dictionary editor RICCO LEWIS ([id number]) on 10/29/2018 2:38:50 PM Referred By: ZAKI Confirmed By:ASAEL HALE MD 10/29/18 1438 Date Asael Hale MD CC: No Primary Care Physician; Attila Hutchinson DO Signed 12 LEAD ELECTROCARDIOGRAM Observed: 10/29/2018 Status: F Source: [place] 2:37 PM [facility] HOSPITAL REPOSITORY [facility] Cardiovascular Services [address] [place] [address] 12 Lead EKG 10/27/18 1609 MR#: [id number] Acct: [id number] Name: ATTILA DEL CID Rep #: [id number] : 1970 48 From: Asael Hale MD Attending Dr: Status: DEP ER Ordering Dr: Attila Hutchinson DO Date: 10/27/18 Location: ED Sex: M C Admitted: Test Reason : CP Blood Pressure : / mmHG Vent. Rate : 115 BPM Atrial Rate : 115 BPM P-R Int : 170 ms QRS Dur : 076 ms QT Int : 324 ms P-R-T Axes : 018 007 023 degrees QTc Int : 448 ms Sinus tachycardia Otherwise normal ECG Confirmed by ALEXIA CONNOR, ASAEL ([id number]), dictionary editor RICCO LEWIS ([id number]) on 10/29/2018 2:37:16 PM Referred By: ZAKI Confirmed By:ASAEL HALE MD 10/29/18 1437 Date Asael Hale MD CC: No Primary Care Physician; Attila Hutchinson DO Signed TROPONIN I Collected: 10/29/2018 Status: F Source: [facility] [employer] 1:28 AM SYSTEM REPOSITORY TYPE CODE TESTS RESULT OUT OF REFERENCE UNITS RANGE LAB trop istat 0.00-0.09 ng/mL TROP I, 0.00 I-STAT Performed By: #### TROP I #### [facility] [address] [place] [address] [place] [address] CTA CHEST PULMONARY Observed: 10/28/2018 Status: F Source: [facility] [employer] EMBOLISM W/ CTA 11:45 PM SYSTEM REPOSITORY EXAMINATION: CTA CHEST PULMONARY EMBOLISM W/ED CLINICAL HISTORY: D-Dimer Value->Elevated Pulmonary embolism suspected TECHNOLOGISTS NOTE: left sided chest pain. elevated d-dimer COMPARISON: None TECHNIQUE: Axial images of the chest were obtained from above the lung apices through the level of the adrenal glands during the bolus administration of intravenous contrast. Multiplanar and 3D maximum intensity projection reformulation's were created from the raw CT data which were interpreted in conjunction with the axial images to render the findings listed below. Before infusion of intravenous contrast, radiology personnel investigated the possibility of an allergic history and of any history of reaction to iodinated contrast material. Contrast Protocol: Omnipaque 350 [>or =100lb] 75 ml [<100 lb] 1 ml per 1 lb. INTRA-PROCEDURE MEDS: Contrast Agent [id number] 100ml Bottle 100 milliliter 10/28/2018 INTRAVENOUS FINDINGS: Pulmonary Arteries: There are no filling defects within the pulmonary arterial system to suggest pulmonary embolus. Enlarged central pulmonary arteries which can be seen in the setting of pulmonary hypertension. Cardiovascular: The heart is normal in size. Ectatic ascending thoracic aorta measuring up to 4.7 cm. Pericardium: Unremarkable. Mediastinum: Unremarkable. Pleura: Unremarkable. Central Airways: Widely patent. Lungs: Mosaic attenuation of the lungs which may represent air trapping with other etiologies including bronchiolitis possible. Nodules: No nodules are present that require follow up. Lymph Nodes: No thoracic lymphadenopathy is evident. Visualized musculoskeletal structures: Multilevel degenerative changes of the spine. Included images of the upper abdomen: Unremarkable. IMPRESSION: No CT evidence for pulmonary embolism. Ectatic ascending thoracic aorta measuring up to 4.7 cm. MACRO: None XR CHEST PA+LAT Observed: 10/28/2018 Status: F Source: [facility] [employer] 11:00 PM SYSTEM REPOSITORY EXAMINATION: XR CHEST 2 VIEW PA+LATED CLINICAL HISTORY: Chest pain TECHNOLOGISTS NOTE: left sided chest pain that started a couple of hours ago COMPARISON: None FINDINGS: Cardiomediastinal silhouette: Widened superior mediastinum if there is clinical concern for acute aortic syndrome suggest further evaluation CT with contrast. Trachea: No deviation. Lungs/Pleura: No focal pulmonary consolidation, effusion or pneumothorax. Musculoskeletal: Unremarkable. IMPRESSION: Widened superior mediastinum if there is clinical concern for acute aortic syndrome suggest further evaluation CT with contrast. MACRO: None D-DIMER Collected: 10/28/2018 Status: F Source: [facility] [employer] 10:54 PM SYSTEM REPOSITORY Order Comment: A D-Dimer result of <230 ng/mL DDU has a high negative predictive value for DVT and PE when combined with a clinical assessment of low to moderate probability. This cut-off value is specific for HemosIL D-dimer assay and values obtained using different methods may not be used interchangeably. TYPE CODE TESTS RESULT OUT OF REFERENCE UNITS RANGE LAB DIMER <230 ng/mL DDU High DIMER 241 Performed By: #### DIMER #### [facility] [address] [place] [address] [place] [address] CBC WITH DIFFERENTIAL-RAPID Collected: Status: F Source: [facility] 10/28/2018 10:28 PM [facility] REPOSITORY TYPE CODE TESTS RESULT OUT OF REFERENCE UNITS RANGE LAB WBC 4.5-11.5 K/uL WBC 6.4 LAB RBC 4.50-5.90 M/uL RBC 4.80 LAB HGB 13.9-16.3 g/dL HGB Low 12.5 LAB HCT 41.0-53.0 % HCT Low 37.4 LAB MCV 80-100 fL MCV Low 78 LAB MCH 26.0-34.0 pg MCH 26.0 LAB MCHC 32.0-35.9 g/dL MCHC 33.3 LAB PLT 150-400 K/uL PLT 292 LAB RDW 11.5-14.5 % RDW-CV High 17.0 LAB MPV 8.5-11.5 fL MPV Low 6.9 LAB CPnT 31.0-76.0 % NEUTROPHILS 48.2 LAB nt 1.50-8.00 K/uL NEUTROPHIL # 3.10 LAB CPIY 24.0-44.0 % LYMPHOCYTES 37.9 LAB ly 1.00-4.80 K/uL LYMPHOCYTES # 2.40 LAB CPmO 2.0-11.0 % MONOCYTES 10.6 LAB mo 0.20-1.00 K/uL MONOCYTE # 0.70 LAB CPeO 0.1-4.0 % EOSINOPHIL 2.4 LAB eo 0.00-0.70 K/uL EOSINOPHIL # 0.20 LAB CPbA <=1.9 % BASOPHILS 0.9 LAB ba 0.00-0.20 K/uL BASOPHIL # 0.10 LAB CPnR NUCLEATED RBC 0 LAB NRBCCNT K/uL NUCLEATED RBC # 0.01 Performed By: #### CBCDSAT #### [facility] [address] [place] [address] [place] [address] TROPONIN I Collected: 10/28/2018 Status: F Source: [facility] 10:28 PM SYSTEM REPOSITORY TYPE CODE TESTS RESULT OUT OF REFERENCE UNITS RANGE LAB trop istat 0.00-0.09 ng/mL TROP I, 0.00 I-STAT Performed By: #### TROP I #### [facility] [address] [place] [address] [place] [id number] PROTHROMBIN TIME AND Collected: 10/28/2018 Status: F Source: THE INR 10:28 PM [facility] REPOSITORY TYPE CODE TESTS RESULT OUT OF REFERENCE UNITS RANGE LAB PT PAT 9.6-12.4 sec PROTIME 12.2 LAB INR 0.90-1.10 INR 1.07 Performed By: #### PT, APTT #### [facility] [address] [place] [address] [place] [place] [id number] PARTIAL THROMBOPLASTIN Collected: 10/28/2018 Status: F Source: THE TIME 10:28 PM [facility] REPOSITORY TYPE CODE TESTS RESULT OUT OF RANGE REFERENCE UNITS LAB APTT 21-33 sec APTT 27 Performed By: #### PT, APTT #### [facility] [address] [place] [address] [place] [id number] BASIC METABOLIC PANEL Collected: 10/28/2018 Status: F Source: [employer] 10:28 PM SYSTEM REPOSITORY TYPE CODE TESTS RESULT OUT OF REFERENCE UNITS RANGE LAB GLU 68-110 mg/dL GLU 98 LAB NA3 135-148 mmol/L NA 137 LAB POT 3.3-5.3 mmol/L K 3.6 LAB CO2 21-30 mmol/L CO2 21 LAB CHLOR 97-111 mmol/L CL 108 LAB BUN 8-22 mg/dL BUN 15 LAB CREAT 0.80-1.30 mg/dL Low CREAT 0.73 LAB CA 8.4-10.4 mg/dL CA 9.0 LAB ANION GAP 5-13 ANION GAP 12 LAB eGFR >=60 mL/min/1.73 sqm ESTIMATED GFR 110 (CKD-EPI) Performed By: #### CH8, CK #### [facility] [address] [place] [address] [place] [id number] CREATINE KINASE Collected: 10/28/2018 Status: F [facility] PM SYSTEM REPOSITORY TYPE CODE TESTS RESULT OUT OF REFERENCE UNITS RANGE LAB dC 57-374 IU/L CREATINE 76 KINASE Performed By: #### CH8, CK #### [facility] [address] [place] [address] [place] [id number] CHEST 2 VIEW PA AND Observed: 10/28/2018 Status: F Source: [facility] 8:03 PM MEDICAL CENTER REPOSITORY Patient Name: ATTILA DEL CID STUDY: Chest dated 10/28/2018. INDICATION: Signs/Symptoms: Chest pain and /or palpitations COMPARISON: Chest dated 04/18/2017. ACCESSION NUMBER(S): [id number] ORDERING CLINICIAN: DEVORAH WELLS TECHNIQUE: PA and lateral radiograph of the chest. FINDINGS: The lungs are clear. No pneumothorax or effusion is evident. The cardiomediastinal silhouette is not enlarged. The soft tissues are grossly unremarkable. IMPRESSION: No acute cardiopulmonary process is evident. Electronically signed by: NIRMALA HADDAD MD CBC AND DIFFERENTIAL Collected: 10/28/2018 Status: F Source: [facility] 7:35 PM MED[facility]ENTER REPOSITORY TYPE CODE TESTS RESULT OUT OF REFERENCE UNITS RANGE LAB WBCR(LOINC 4.4 - 11.3 x10E9/L ) WBC 5.9 LAB NRBC(LOINC 0.0 - 0.0 /100 WBC ) NUCLEATED RBC 0.0 LAB RBCCT(LOIN 4.50 - 5.90 x10E12/L C) RBC 4.87 LAB HGB(LOINC) 13.5 - 17.5 g/dL Low HGB 12.5 LAB HCT(LOINC) 41.0 - 52.0 % Low HCT 40.5 LAB MCV(LOINC) 80 - 100 fL MCV 83 LAB MCHC2(LOIN 32.0 - 36.0 g/dL C) Low MCHC 30.9 LAB PLTCT(LOIN 150 - 450 x10E9/L C) PLT 302 LAB RDWCV(LOIN 11.5 - 14.5 % C) RDW-CV High 16.9 LAB NEUT(LOINC 40.0 - 80.0 % ) % NEUTROPHIL 47.2 LAB IG(LOINC) 0.0 - 0.9 % % AUTOMATED 0.3 IMMATURE GRAN Result Comment: Percent differential counts (%) should be interpreted in the context of the absolute cell counts (cells/L). LAB LYMPH(LOINC) 13.0 - 44.0 % % LYMPHOCYTE 38.7 LAB MONO(LOINC) 2.0 - 10.0 % % MONOCYTE 10.4 LAB EOS(LOINC) 0.0 - 6.0 % % EOSINOPHIL 2.7 LAB BASO(LOINC) 0.0 - 2.0 % % BASOPHIL 0.7 LAB #NEUT(LOINC) 1.20 - 7.70 x10E9/L NEUTROPHIL 2.77 LAB #LYMP(LOINC) 1.20 - 4.80 x10E9/L LYMPHOCYTE 2.27 LAB #MONO(LOINC) 0.10 - 1.00 x10E9/L MONOCYTE 0.61 LAB #EOS(LOINC) 0.00 - 0.70 x10E9/L EOSINOPHIL 0.16 LAB #BASO(LOINC) 0.00 - 0.10 x10E9/L BASOPHIL 0.04 Performed By: #### CBCDF #### [address] [address] BNP Collected: 10/28/2018 Status: F Source: [facility] [address] [place] [address] REPOSITORY TYPE CODE TESTS RESULT OUT OF RANGE REFERENCE UNITS LAB BNP2(LOINC) 0 - 99 pg/mL BNP 12 Result Comment: . <100 pg/mL - Heart failure unlikely 100-299 pg/mL - Intermediate probability of acute heart . failure exacerbation. Correlate with clinical . context and patient history. >=300 pg/mL - Heart Failure likely. Correlate with clinical . context and patient history. BNP testing is performed using different testing methodology at [facility] than at other [facility]. Direct result comparisons should only be made within the same method. Performed By: #### BNP2 #### [address] [address] COMPREHENSIVE PANEL Collected: 10/28/2018 Status: F Source: [facility] [address] [place] [address] REPOSITORY TYPE CODE TESTS RESULT OUT OF REFERENCE UNITS RANGE LAB GLU(LOINC) 74 - 99 mg/dL GLUCOSE 77 LAB SOD(LOINC) 136 - 145 mmol/L SODIUM 138 LAB K(LOINC) 3.5 - 5.3 mmol/L POTASSIUM 3.5 LAB CHLOR(LOIN 98 - 107 mmol/L C) CHLORIDE High 108 LAB BIC(LOINC) 21 - 32 mmol/L BICARBONATE 23 LAB ANGAP(LOIN 10 - 20 mmol/L C) ANION GAP 11 LAB UREA(LOINC 6 - 23 mg/dL ) UREA NITROGEN 12 LAB CREA(LOINC 0.50 - 1.30 mg/dL ) CREATININE 0.83 LAB GFRFN(LOIN >60 mL/min/1.7 C) 3m2 GFR-NON AM. >60 LAB GFRAA(LOIN >60 mL/min/1.7 C) 3m2 GFR- AM. >60 Result Comment: CALCULATIONS OF ESTIMATED GFR ARE PERFORMED USING THE MDRD STUDY EQUATION FOR THE IDMS-TRACEABLE CREATININE METHODS. CLIN CHEM 2007;53:766-72 LAB CA(LOINC) 8.6 - 10.3 mg/dL CALCIUM 8.8 LAB ALB(LOINC) 3.4 - 5.0 g/dL ALBUMIN 4.0 LAB AP(LOINC) 33 - 120 U/L ALKALINE PHOSPHATASE 86 LAB TP(LOINC) 6.4 - 8.2 g/dL TOTAL PROTEIN Low 6.3 LAB AST(LOINC) 9 - 39 U/L AST 29 LAB TBILI(LOINC) 0.0 - 1.2 mg/dL BILIRUBIN,TOTAL 0.2 LAB ALT(LOINC) 10 - 52 U/L ALT 35 Result Comment: Patients treated with Sulfasalazine may generate falsely decreased results for ALT. Performed By: #### CMP #### [facility] [address] [place] [address] TROPONIN I Collected: 10/28/2018 Status: F Source: [facility] 7:35 PM [facility]ENTER REPOSITORY TYPE CODE TESTS RESULT OUT OF REFERENCE UNITS RANGE LAB TROP2(LOINC 0.00 - 0.03 ng/mL ) TROPONIN I <0.02 Result Comment: LESS THAN 0.04 NG/ML: NEGATIVE REPEAT TESTING IN FOUR TO SIX HOURS IF CLINICALLY INDICATED. 0.04 - 0.5 NG/ML: CONSISTENT WITH POSSIBLE CARDIAC DAMAGE AND POSSIBLE INCREASED CLINICAL RISK. SERIAL MEASUREMENTS MAY HELP ASSESS EXTENT OF MYOCARDIAL DAMAGE. >0.5 NG/ML: CONSISTENT WITH CARDIAC DAMAGE, INCREASED CLINICAL RISK AND MYOCARDIAL INFARCTION. SERIAL MEASUREMENTS MAY HELP ASSESS EXTENT OF MYOCARDIAL DAMAGE. . Note: Troponin I testing is performed using different testing methodology at [facility] than at other [facility] hospitals. Direct result comparisons should only be made within the same method. Performed By: #### TROP2 #### [facility] [address] [place] [address] TRIAGE - ED Observed: 10/28/2018 Status: UNK Source: [facility] 7:25 PM MEDICAL CENTER REPOSITORY Quick Triage: The patient and/or guardian verbally acknowledges placement for services into the following (when Urgent Care Service hours are operating):emergency department Pain: Pain Assessmentchest; sternal Pain Rating (0-10): Rest7 Pain Rating (0-10): Activity7 Chart Review: CHIEF COMPLAINT ATTILA DEL CID is a Male patient with a chief complaint of chest pain. Onset of the Complaint: 28-Oct-2018 Other Complaints: pt states mid-sternal chest pain radiating down left arm started approx 20 minutes ago. pt c/o SOB Triage Date/Time: 28-Oct-2018 19:25 Pain Rating (0-10): Rest: 7 Pain Rating (0-10): Activity: 7 Vital Signs: Temperature: F ( C) taken temporal Height: 5 feet 11.00 inches. 180.3 CM Weight: 234.0 pounds. Calculated 106.1 kg. Calculated BMI (kg/m2): 32.638 Calculated BSA (m2) 2.31 Cough lasting greater than 3 weeks: no Patient immunocompromised related to: N/A Travel outside of [facility]: no Allergies: yes Patient has suicidal thoughts: no Patient has homicidal thoughts: no STUART: 3 Symptoms Are POSITIVE For: dyspnea Symptoms Are Negative For: anxiety, chills, diaphoresis, headache, loss of consciousness, nausea, numbness, pain, tingling and weakness Activity At Onset: Rest Area Of Chest Pain: Sternal Region Chest Pain Radiation-Left: arm PAIN Pain Scale Used: SENTHIL ARRIVAL INFORMATION Means of Arrival: Ambulatory Mode of Arrival: private vehicle Arrival From: home Accompanied By: self and spouse/significant other Language: Spoken Language Preferred: Welsh Reading Language Preferred: Welsh Material Mixer Requested: no billboard poster was requested MDRO: History of MDRO: no PRIMARY ASSESSMENT ATTILA DEL CID's primary assessment is Within Normal Limits. The airway is open and patent. Breathing spontaneous and unlabored with clear breath sounds bilaterally. Circulation is normal with good peripheral pulses. Skin is warm and dry and color is normal for race. TRAVEL HISTORY Travel Exposure History: NO travel to International locations in the past 30 days Past Medical History: Past Medical History Reviewedyes Electronic Signatures: Megan Lopez) (Signed 28-Oct-2018 20:13) Authored: Triage, Past Medical History Last Updated: 28-Oct-2018 20:13 by Fogliano, Megan (RN) EMERGENCY DEPARTMENT Observed: 10/28/2018 Status: F Source: [facility] SUMMARY 1:13 AM [facility] REPOSITORY [facility] Medical Records Department [address] [place] [address] Emergency Department Summary 10/27/18 2349 MR#: [id number] Acct: [id number] Name: ATTILA DEL CID Rep #: [id number] : 1970 48 From: Attila Hutchinson DO PCP: Care Physician, No Primary Status: DEP ER - ER Visit Summary Date of Service: 10/27/18 Chief Complaint: Chest pain History of Present Illness: The patient is a 48 M who states that at 1515 hrs. he suddenly got lightheaded while laying in bed. He states his blood pressure is up. Going on the steps his right knee gave out he began to feel worse he developed chest pain which he states is maybe a little bit worse than the daily chest pain he occurs. States he recently followed up with his acid condenser and had his lisinopril up to which seemed to help his daily chest pain but now it is back. He notes tingling in his hands mouth and feet. History of SVT and A. fib he is on sotalol as well as Eliquis. He has known thoracic aortic aneurysm which is been followed and has been stable. He has had several cardiac cath which have been negative. Physical Examination: Afebrile noted tachycardia at 118 blood pressure 149/90 600% on room air tachypneic at 30 Gen: Well-nourished well-developed Head: Normocephalic contusion and abrasion of the right parietal scalp Eyes: Perrl EOMI ENT: TMs clear no rhinorrhea moist mucous membranes Neck: Supple no lymphadenopathy no JVD nontender CVS: Regular rate tachycardic rhythm no murmurs normal S1-S2 Respiratory: Per ventilating clear to auscultation bilaterally chest nontender Abdomen: Soft nontender nondistended normal bowel sounds no masses Back: Nontender Extremity: Nontender no edema Skin: Normal color no rash Neuro: alert orientated 3 CN II-XII intact normal strength sensation reflexes gait cerebellar Psych: Anxious Test Results: EKG shows sinus tachycardia at 106. CBC chemistries troponin and troponin were normal. Chest x-ray showed a stable mediastinum. Patient continues to be tachycardic sometimes up to 130 particularly with standing and feeling weak. CTA of the chest was obtained which demonstrates no PE and a stable thoracic aortic aneurysm. CT the brain was also obtained due to his lightheadedness and evidence of a abrasion/contusion in the right parietal scalp. Emergency Department Course and Treatment: Patient received Ativan IV fluids. He continued to have pain and states that morphine is what he needs to make his pain better. I do not see any life-threatening cause for his pain. This is a daily pain that is in his own words slightly worse than normal. I gave him some metoprolol which slowed his heart rate down into the 80s and he states he still does not feel any better with that. I do not see an acute reason to admit the patient to the hospital. He is in a sinus rhythm. Negative troponins. PE or dissection. No pneumothorax. No pneumonia. I recommend he follow-up with his doctors. Impression: 1. Chest pain 2. Weakness This note was generated with [employer] dictation software. It may contain incorrect words, spelling, and punctuation that were not noted in review of the chart prior to signing ED Disposition - Plan for ED Patient: Disposition: Home or Assisted Living Chief Complaint: Chest Pain Instructions: ED Chest Pain Atypical Unkn Cause Additional Instructions: I would recommend you follow-up with your primary care doctor and your acid condenser What to do if you have Problems For any increased pain, shortness of breath, bleeding, nausea or vomiting, chest pain, or any unexpected problems, contact your Primary Care Provider. Call [facility] ([phone]) or report to the closest Emergency Room. Call 911 if necessary. 10/28/18 0113 <Electronically signed by Attila Hutchinson DO> Date Attila Hutchinson DO Cosigner Signature (If Indicated): Date CC: No Primary Care Physician TROPONIN-I Collected: 10/27/2018 Status: F Source: [place] 10:05 PM [facility] REPOSITORY TYPE CODE TESTS RESULT OUT OF RANGE REFERENCE UNITS LAB L501.4010 <0.045 ng/mL Normal < 0.015 TROPONIN-I Result Comment: TROPONIN-I EXPECTED VALUES <0.045 Negative 0.045 - 0.590 Consistent with Cardiac Damage > OR = 0.600 Critical Value Not every elevated troponin is indicative of MA. These values should be used with clinical judgement in examining the patient's clinical picture for diagnosis. To establish a diagnosis of MA versus myocardial injury, there must be a demonstrated rise and/or fall in the troponin values, in addition to ischemic symptoms, EKG changes, new regional wall motion abnormality, and/or angiographical evidence. PLEASE NOTE: REFERENCE RANGES EDITED 18 Performed By: #### L501.4010 #### [facility] [address] [facility] [place], [address] CTA CHEST W/WO Observed: 10/27/2018 Status: F Source: [facility] CONTRAST 7:08 PM [facility] REPOSITORY [facility] Imaging Services [address] [facility] [address] CTA Chest W/WO Contrast MR#: [id number] Acct: [id number] Name: ATTILA DEL CID Rep #: [id number] : 1970 48 From: Wyatt Kwon MD PCP: Care Physician, No Primary Status: REG ER Study: CTA Chest W/WO Contrast Date of Exam: 10/27/18 Exam# [id number] Ordering Dr: Attila Hutchinson DO STUDY: CTA CHEST REASON FOR EXAM: Male, 48 years old. Chest pain. Weakness. RADIATION DOSAGE (If Supplied By Facility): CTDIvol = ( 18.16 ) mGy, DLP = ( 855.42 ) mGycm TECHNIQUE: The examination was performed with the intravenous administration of 100 ml of Isovue 370 contrast material. Post-processing of the angiographic images was performed, with multiplanar reformation and 3D reconstruction. Individualized dose optimization techniques were used for this CT. COMPARISON: Chest x-ray. FINDINGS: Normal enhancement of the main pulmonary artery and right and left pulmonary arteries. Normal enhancement of the bilateral peripheral pulmonary arteries. There is no demonstrated pulmonary embolism. There is aneurysmal dilatation of the ascending aorta. The transverse diameter of the ascending aorta measures 48 mm's. There is no demonstrated aortic dissection. There are aortic valvular calcifications. Normal mediastinum. Normal hilar regions. Normal visualized trachea and bronchi. The lungs are well expanded. Normal pulmonary parenchyma. Normal pleura. Normal chest wall structures. Normal osseous structures. Normal visualized upper abdomen. CT/CTA Chest W/WO Contrast IMPRESSION: CTA chest examination, without a demonstrated pulmonary embolism or arterial dissection. Aneurysmal dilatation of the ascending aorta. Electronically Signed: Wyatt Kwon MD at 19:53 EST , Service support , CC: No Primary Care Physician; Attila Hutchinson DO 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: Signed BASIC METABOLIC Collected: 10/27/2018 Status: F Source: [place] PROFILE (BMP) 4:50 PM [facility] REPOSITORY TYPE CODE TESTS RESULT OUT OF RANGE REFERENCE UNITS LAB L501.0100 74-106 mg/dL High GLU 113 Result Comment: Fasting Glucose result from 100 to 125 mg/dL suggests IMPAIRED HOMEOSTASIS per A.D.A. criteria. Please note revised GLUCOSE reference range effective 2017. LAB L501.1000 7-18 mg/dL Normal BUN 8 LAB L501.1100 0.70-1.30 mg/dL Normal CREAT,SERUM 0.96 Result Comment: The validity of the calculated GFR AND GFRAA in patients over 70 years has not been determined. Clinical correlation is essential. LAB L501.1110 >60 mL/min Normal EST GFR 88 Result Comment: Non- GFR Calc LAB L501.1115 >60 mL/min Normal EST GFR - AA 107 Result Comment: GFR Calc LAB L501.1255 ml/min Normal Estimated CRCL 100.23 LAB L501.1300 10-20 RATIO Low BUN/CRE 8.3 LAB L501.2200 8.5-10 mg/dL .1 CA Normal 9.0 LAB L501.5300 136-14 mmol/L 5 NA Normal 143 LAB L501.5600 3.5-5. mmol/L 1 K Normal 3.5 LAB L501.5900 98-107 mmol/L High CL 111 LAB L501.6100 21.0-3 mmol/L 2.0 CO2 Normal 21.0 LAB L501.6200 5-15 GAP Normal 11 Performed By: #### L500.2500, L501.4010 #### [facility] [address] [place], [address] TROPONIN-I Collected: 10/27/2018 Status: F Source: [place] 4:50 PM [facility] REPOSITORY TYPE CODE TESTS RESULT OUT OF RANGE REFERENCE UNITS LAB L501.4010 <0.045 ng/mL Normal < 0.015 TROPONIN-I Result Comment: TROPONIN-I EXPECTED VALUES <0.045 Negative 0.045 - 0.590 Consistent with Cardiac Damage > OR = 0.600 Critical Value Not every elevated troponin is indicative of MA. These values should be used with clinical judgement in examining the patient's clinical picture for diagnosis. To establish a diagnosis of MA versus myocardial injury, there must be a demonstrated rise and/or fall in the troponin values, in addition to ischemic symptoms, EKG changes, new regional wall motion abnormality, and/or angiographical evidence. PLEASE NOTE: REFERENCE RANGES EDITED 18 Performed By: #### L500.2500, L501.4010 #### [facility] [address] [place], [place], [address] CBC W/DIFF, AUTOMATED Collected: 10/27/2018 Status: F Source: [facility] 4:50 [facility] REPOSITORY TYPE CODE TESTS RESULT OUT OF RANGE REFERENCE UNITS LAB L100.1000 4.4-11.0 K/mm3 Normal WBC 4.9 LAB L100.1200 4.6-6.2 M/mm3 Normal RBC 5.33 LAB L100.1300 13.0-16.5 g/dl Normal HGB 13.3 LAB L100.1400 40-54 % Normal HCT 42.3 LAB L100.1500 80-94 fL Low MCV 79.4 LAB L100.1600 27.0-32.0 pg Low MCH 25.0 LAB L100.1700 32-36 g/gl Low MCHC 31.4 LAB L100.1810 11.6-14.6 % High RDW CV 16.1 LAB L100.1820 35.1-43.9 fl High RDW SD 46.5 LAB L100.1900 150-450 K/mm3 Normal PLT 284 LAB L100.2000 6.2-12.0 fl Normal MPV 8.9 LAB L100.2100 47-70 % Normal NEUT% 53.3 LAB L100.2200 19-41 % Normal LY% 36.7 LAB L100.2300 0-10 % Normal MONO% 8.2 LAB L100.2400 0-5 % Normal EO% 1.2 LAB L100.2500 0-1 % Normal BASO% 0.4 LAB L100.2550 0.0-0.9 % Normal IM GRAN % 0.200 Result Comment: IG% - Immature Granulocytes (promyelocytes, myelocytes and metamyelocytes) > 1% indicates that a LEFT SHIFT is Present. LAB L100.2620 2.0-7.7 X10 3/uL Normal Absolute Neut 2.6 LAB L100.2720 0.83-4.51 X10 3/ul Normal Absolute Lymph 1.80 Performed By: #### L100.0100 #### [facility] [address] [facility] [place], [address] BRAIN/HEAD WITHOUT Observed: 10/27/2018 Status: F Source: [facility] CONTRAST 4:31 PM [facility] REPOSITORY [facility] Imaging Services [address] [place] [address] Brain/Head without Contrast MR#: [id number] Acct: [id number] Name: ATTILA DEL CID Rep #: [id number] : 1970 M 48 From: Wyatt Kwon MD PCP: Care Physician, No Primary Status: REG ER Study: Brain/Head without Contrast Date of Exam: 10/27/18 Exam# [id number] Ordering Dr: Attila Hutchinson DO STUDY: CT BRAIN WITHOUT CONTRAST REASON FOR EXAM: Male, 48 years old. Right-sided weakness. TIA. RADIATION DOSAGE (If Supplied By Facility): CTDIvol = ( 44.99 ) mGy, DLP = ( 779.24 ) mGycm TECHNIQUE: Transaxial CT imaging of the brain was performed without administration of intravenous contrast material. Individualized dose optimization techniques were used for this CT. COMPARISON: September 10, 2017 FINDINGS: Normal soft tissue structures. Normal calvarium. Normal size ventricles and extra-axial spaces for the patient's age. Normal white matter tracts of the cerebral hemispheres. Normal basal ganglia and thalami. Normal brainstem. Normal cerebellum. There is no intracranial hemorrhage. There are no findings of an acute ischemic infarction. Mucosal thickening in the right maxillary sinus. CT/Brain/Head without Contrast IMPRESSION: Normal unenhanced CT scan of the brain. Electronically Signed: Wyatt Kwon MD at 17:24 EST , Service support , CC: No Primary Care Physician; Attila Hutchinson DO 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: Signed CHEST PA AND LATERAL Observed: 10/27/2018 Status: F Source: [place] 4:31 PM [facility] REPOSITORY [facility] Imaging Services [address] [place] [address] Chest PA and Lateral MR#: [id number] Acct: [id number] Name: ATTILA DEL CID Rep #: [id number] : 1970 M 48 From: Wyatt Kwon MD PCP: Care Physician, No Primary Status: REG ER Study: Chest PA and Lateral Date of Exam: 10/27/18 Exam# [id number] Ordering Dr: Attila Hutchinson DO STUDY: X-RAY CHEST REASON FOR EXAM: Male, 48 years old. Right-sided weakness. Chest pain TECHNIQUE: PA and lateral views of the chest. COMPARISON: July 18, 2018 FINDINGS: There are monitoring devices. The lungs are clear and expanded. There is no demonstrated pleural abnormality. Normal size heart. Normal mediastinum and ruben. Normal visualized pulmonary arteries. Normal visualized aortic arch and descending thoracic aorta. Normal visualized thoracic spine. Normal visualized ribs, clavicles, and shoulders. There is no demonstrated abnormality of the visualized soft tissue structures of the upper abdomen. RAD/Chest PA and Lateral IMPRESSION: Normal x-ray examination of the chest. Electronically Signed: Wyatt Kwon MD at 17:57 EST , Service support , CC: No Primary Care Physician; Attila Hutchinson DO 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: Signed DISCHARGE INSTRUCTION Observed: 10/23/2018 Status: F Source: [place] 9:51 PM [facility] REPOSITORY [facility] Medical Records Department [address] [place] [address] Discharge Instruction 10/23/182148 MR#: [id number] Acct: [id number] Name: ATTILA DEL CID Rep #: [id number] : 1970 48 From: Graham Mendoza DO PCP: OUT OF TOWN DOCTOR Status: REG ER ED Disposition - Plan for ED Patient: Chief Complaint: Fall Instructions: ED Mechanical Fall, ED Contusion Elbow, ED Sprain Wrist Prescriptions: Oxycodone HCl/Acetaminophen [Percocet 5/325] 1 tab PO Q6H PRN PRN 3 Days #12 tab PRN Reason: Pain Referrals: [facility] Doctor,Out of [Primary Care Provider] - 5-7 Days What to do if you have Problems For any increased pain, shortness of breath, bleeding, nausea or vomiting, chest pain, or any unexpected problems, contact your Primary Care Provider. Call [facility] ([phone]) or report to the closest Emergency Room. Call 911 if necessary. 10/23/182150 <Electronically signed by Graham Mendoza DO> Date Graham Colladoigndolores Signature (If Indicated): Date CC: OUT OF TOWN DOCTOR EMERGENCY DEPARTMENT Observed: 10/23/2018 Status: F Source: [place] SUMMARY 9:49 PM [facility] REPOSITORY [facility] Medical Records Department [address] [place] [address] Emergency Department Summary 10/23/18 2146 MR#: [id number] Acct: [id number] Name: ATTILA DEL CID Rep #: [id number] : 1970 48 From: Graham Mendoza DO PCP: OUT OF TOWN DOCTOR Status: REG ER - ER Visit Summary Date of Service: 10/23/18 Chief Complaint: [Fall and injury to left arm] History of Present Illness: The patient is a 48 M [presents the emergency department after sustaining a fall this afternoon approximately 4 PM. Patient states that he was coming down steps when he tripped over his cat and landed on his left side. Patient does not think he struck his head. He had no loss of consciousness. Patient complains of pain in his left elbow mostly and also his left wrist. Patient is right-hand dominant. Patient does have a prior history of hypertension, GERD, A. fib, SVT, anxiety, high cholesterol. Patient is on Eliquis. Patient denies any neck pain, chest pain, or abdominal pain. Patient has been ambulatory. Patient denies any headache.] Physical Examination: [HEENT-PERRLA, EOMI. Cranial nerves II through XII grossly intact. TMs clear. Mucous membranes moist. No adenopathy. No external evidence of trauma to his head. Patient has no C-spine tenderness on palpation. Normal active range of motion is painless. Cardiovascular-regular rate and rhythm without murmur or ectopy Lungs-clear to auscultation, chest wall stable without crepitus or subcu emphysema Abdomen-normoactive bowel sounds, soft, nontender, no rebound or rigidity, no peritoneal signs. Extremities-intact 4, normal range of motion, normal pulses. Left arm-patient has some diffuse tenderness about the left elbow however there is no obvious deformity. Patient has some minimal soft tissue swelling. Patient also with some mild diffuse tenderness about the wrist. He is neurovascular intact with normal range of motion of all digits.] Test Results: [X-rays of the left elbow and left wrist were obtained which showed no acute fractures.] Emergency Department Course and Treatment: [Patient will be given a wrist splint and a sling. ] Treatment Plan: [Patient given a prescription for Percocet for severe pain. Patient advised to follow-up with primary care physician in 5-7 days] Disposition: [Discharged home in stable condition] Impression: [Mechanical fall Left elbow contusion Left wrist sprain] This note was generated with [employer] dictation software. It may contain incorrect words, spelling, and punctuation that were not noted in review of the chart prior to signing ED Disposition - Plan for ED Patient: Chief Complaint: Fall Referrals: [facility] Doctor,Out of [Primary Care Provider] - What to do if you have Problems For any increased pain, shortness of breath, bleeding, nausea or vomiting, chest pain, or any unexpected problems, contact your Primary Care Provider. Call [facility] ([phone]) or report to the closest Emergency Room. Call 911 if necessary. 10/23/182148 <Electronically signed by Graham Mendoza DO> Date Graham Mendoza DO Cosigner Signature (If Indicated): Date CC: [facility] ELBOW MIN 3 VIEWS Observed: 10/23/2018 Status: F Source: [place] 8:48 PM [facility] REPOSITORY [facility] Imaging Services [address] [place] [address] Elbow min 3 Views MR#: [id number] Acct: [id number] Name: ATTILA DEL CID Lois Rep #: [id number] : 1970 M 48 From: Dennis Loo MD PCP: OUT OF TOWN DOCTOR Status: REG ER Study: Elbow min 3 Views Date of Exam: 10/23/18 Exam# [id number] Ordering Dr: Graham Mendoza DO STUDY: X-RAY - LEFT ELBOW REASON FOR EXAM: Male, 48 years old. Trauma TECHNIQUE: 3 view(s) of the elbow. COMPARISON: None. FINDINGS: There is no evidence of acute fracture or dislocation. There are several small smooth margined calcifications of the antecubital fossa noted on the lateral projection. RAD/Elbow min 3 Views IMPRESSION: No evidence of acute fracture or dislocation. There appears to be an old healed supracondylar fracture of the distal humerus. Electronically Signed: Dennis Loo MD at 22:06 EST , Service support , CC: OUT OF TOWN DOCTOR; Graham Mendoza DO 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: Signed WRIST MIN 3 VIEWS Observed: 10/23/2018 Status: F Source: [place] 8:48 PM [facility] REPOSITORY [facility] Imaging Services [address] [place] [id number] Wrist min 3 Views MR#: [id number] Acct: [id number] Name: MARIA EUGENIAATTILA Abreu Rep #: [id number] : 1970 48 From: Dennis Loo MD PCP: OUT OF TOWN DOCTOR Status: REG ER Study: Wrist min 3 Views Date of Exam: 10/23/18 Exam# [id number] Ordering Dr: Graham Mendoza DO STUDY: X-RAY - LEFT WRIST REASON FOR EXAM: Male, 48 years old. Trauma TECHNIQUE: 3 view(s) of the wrist were obtained. COMPARISON: None. FINDINGS: Normal visualized distal radius and ulna. Normal radiocarpal articulation. Normal distal radioulnar articulation. Normal carpal bones. Normal carpal articulations. Normal carpometacarpal articulation of the thumb. Normal second through fifth carpometacarpal articulations. Normal visualized metacarpal bones. The soft tissue structures are unremarkable. RAD/Wrist min 3 Views IMPRESSION: Normal x-ray examination of the wrist. Electronically Signed: Dennis Loo MD at 22:08 EST , Service support , CC: OUT OF TOWN DOCTOR; Graham Mendoza DO 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: Signed XR ELBOW MINIMUM 3 Observed: 10/23/2018 Status: F Source: [place] VIEWS LEFT 3:27 PM [facility] REPOSITORY ORIGINAL XR ELBOW 4 VIEWS LEFT, 10/23/2018 CLINICAL STATEMENT: pain. COMPARISON: None FINDINGS: No acute fracture or dislocation is seen. There is deformity of the distal humerus that may be related to an old healed fracture. There is no significant joint effusion. The joint spaces are maintained. There are well corticated ossicles projecting along the anterior margin of the elbow joint, best seen on the oblique and lateral views. These could be loose bodies. There may be additional cartilage calcification of the humeral radial joint. IMPRESSION: Suspect intra-articular loose bodies. Distal humeral deformity is likely related to an old healed fracture. Clinical correlation or comparison with any available old studies would be helpful. Interpreted By: Audrey Ramos MD Preliminary Report By: Audrey Ramos MD Electronically Signed By: Audrey Ramos MD Dictated Date: 10/23/2018 4:10:33 PM Prelim Date: 10/23/2018 4:10:33 PM Sign Date: 10/23/2018 4:12:54 PM XR SPINE LUMBAR Observed: 10/09/2018 Status: F Source: [place] AP/LAT 3:52 PM [facility] REPOSIT[facility] ORIGINAL XR SPINE LUMBAR AP/LAT CLINICAL STATEMENT: LBP , fall, surgery COMPARISON: None FINDINGS: There are 5 lumbar type vertebral bodies. There is previous laminectomy at L4-L5 level with vertical screws that appear intact. No fracture or compression deformity is seen. There is moderate lower lumbar spine facet arthropathy. Normal SI joints. IMPRESSION: Degenerative and expected postoperative changes. No acute findings. Interpreted By: Alec Phelps MD Preliminary Report By: Alec Phelps MD Electronically Signed By: Alec Phelps MD Dictated Date: 10/09/2018 4:12:52 PM Prelim Date: 10/09/2018 4:12:52 PM Sign Date: 10/09/2018 4:13:[address] ABDOMEN/PELVIS W/O Observed: 10/01/2018 Status: F Source: [place] CONTRAST 9:00 PM [facility] REPOSITORY ORIGINAL CT ABDOMEN/PELVIS W/O CONTRAST CLINICAL STATEMENT: BILATERAL flank pain. The patient reports RIGHT flank pain for one week with hematuria. Lithotripsy performed 3 times this year. COMPARISON: 08/09/2018 TECHNIQUE: Axial images were obtained from the lung bases through the pubic symphysis. Coronal and sagittal reformatted images were generated from the axial dataset. This exam was performed according to our departmental dose optimization program, and includes the following measures where applicable: automated exposure control, adjustment of the mAs and/or kVp according to patient size and/or exam, and an iterative reconstruction algorithm. FINDINGS: The kidneys are symmetric in size and are without hydronephrosis or perinephric stranding. There are 2-3 mm stone, lower pole of the RIGHT kidney, very similar to the comparison study. No LEFT renal, ureteral, or bladder calculi. The ureters are normal in course and caliber. The urinary bladder is moderately distended and without wall thickening, perivesicular infiltration, or evident mass. The prostate is normal in size and contains several calcifications. There is no free fluid or free air. The visualized liver and spleen are unremarkable for noncontrast examination. The noncontrasted gallbladder, pancreas and adrenal glands are normal. The small and large bowel are normal in course and caliber. The appendix is normal. No adenopathy is identified. There is no acute osseous abnormality. There is posterior surgical fusion with disc spacers at L4-L5. Osseous fusion is not evident. Alignment is normal. IMPRESSION: Nonobstructing, punctate RIGHT renal calculi. Findings appear unchanged from the 08/09/2018 study. I have personally reviewed the images of this examination and agree with the resident's findings and interpretation. Interpreted By: Jung Roberts MD Preliminary Report By: Clementine Worrell DO Electronically Signed By: Jung Roberts MD Dictated Date: 10/01/2018 9:38:14 PM Prelim Date: 10/01/2018 9:46:16 PM Sign Date: 10/02/2018 12:25:08 AM CBC Collected: 10/01/2018 Status: F Source: [facility] 8:14 PM [facility] REPOSITORY TYPE CODE TESTS RESULT OUT OF REFERENCE UNITS RANGE LAB WBC(LOINC) 4.50-10.80 10 3/mcL WBC 6.50 LAB RBCCT(LOINC 4.50-6.00 10 6/mcL ) RBC 5.10 LAB HGB(LOINC) 13.0-17.5 G/dL Hgb 13.2 LAB HCT(LOINC) 40.0-52.0 % Low Hct 39.9 LAB MCV(LOINC) 81.0-100.0 fL Low MCV 78.2 LAB MCH(LOINC) 27.0-33.0 pg Low MCH 25.8 LAB MCHC(LOINC) 32.0-36.0 G/dL MCHC 33.0 LAB RDW(LOINC) 11.5-15.5 % High RDW 17.3 LAB PLT(LOINC) 150-450 10 3/mcL Platelet 337 LAB MPV(LOINC) 6.4-10.5 fL MPV 6.9 Performed By: #### CBC, ADIFF, ANEU, BMP, GFR #### [place] [address] .AUTO DIFF Collected: 10/01/2018 Status: F Source: [facility] 8:14 PM [facility] REPOSITORY TYPE CODE TESTS RESULT OUT OF REFERENCE UNITS RANGE LAB PAZ(LOINC) 50.0-75.0 % High Neutrophil % 78.3 LAB LYM(LOINC) 20.0-40.0 % Low Lymphocyte % 15.0 LAB MON(LOINC) 2.0-13.0 % Monocyte % 5.8 LAB EO(LOINC) 0.0-6.0 % Eosinophil % 0.3 LAB BAS(LOINC) 0.0-2.5 % Basophil % 0.6 LAB ABLYM(LOIN 0.90-4.32 10 3/mcL C) Lymphocyte, 1.00 Absolute LAB REJI(LOINC 0.09-1.40 10 3/mcL ) Monocyte, 0.40 Absolute LAB AEOS(LOINC 0.00-0.65 10 3/mcL ) Eosinophil, 0.00 Absolute LAB ABAS(LOINC 0.00-0.27 10 3/mcL ) Basophil, 0.00 Absolute Performed By: #### CBC, ADIFF, ANEU, BMP, GFR #### [place] [address] .NEUABS Collected: 10/01/2018 Status: F Source: [facility] 8:14 PM [facility] REPOSITORY TYPE CODE TESTS RESULT OUT OF REFERENCE UNITS RANGE LAB ANEU(LOINC) 2.25-8.10 10 3/mcL Neutrophil, 5.10 Absolute Performed By: #### CBC, ADIFF, ANEU, BMP, GFR #### [place] [address] BMP Collected: 10/01/2018 Status: F Source: [facility] 8:14 [facility] [place] REPOSITORY TYPE CODE TESTS RESULT OUT OF REFERENCE UNITS RANGE LAB GLU(LOINC) 70-110 mg/dL Glucose High Level 127 LAB NA(LOINC) 136-145 mEq/L Sodium Level 144 LAB K(LOINC) 3.5-5.0 mEq/L Potassium Level 3.5 LAB CL(LOINC) 98-110 mEq/L Chloride High 114 LAB CO2(LOINC) 22-32 mEq/L CO2 23 LAB EBAL(LOINC 4.0-15.0 mEq/L ) Electrolyte Balance 7.0 LAB BUN(LOINC) 8.0-22.0 mg/dL BUN 9.0 LAB CRE(LOINC) 0.60-1.40 mg/dL Creatinine Lvl (s) 0.64 LAB BC(LOINC) 10.0-22.0 ratio BUN/Creatinine 14.1 Ratio LAB CA(LOINC) 8.4-10.1 mg/dL Calcium Lvl 8.7 Performed By: #### CBC, ADIFF, ANEU, BMP, GFR #### [place] [address] .GFR Collected: 10/01/2018 Status: F Source: [facility] 8:14 PM [facility] REPOSITORY TYPE CODE TESTS RESULT OUT OF REFERENCE UNITS RANGE LAB GFRAA(LOINC ml/min/1.73 ) sqm GFR >60 Hungarian Result Comment: GFR Population mean for , Non- Americans Ages 20-29 = 116 mL/min/1.73 sq.m. Ages 30-39 = 107 mL/min/1.73 sq.m. Ages 40-49 = 99 mL/min/1.73 sq.m. Ages 50-59 = 93 mL/min/1.73 sq.m. Ages 60-69 = 85 mL/min/1.73 sq.m. Ages 70+ = 75 mL/min/1.73 sq.m. Chronic Kidney Disease: Less than 60 mL/min/1.73 square meters End Stage Renal Disease: Less than 15 mL/min/1.73 square meters LAB GFRNO(LOINC) ml/min/1.73sqm GFR Non- >60 Result Comment: GFR Population mean for , Non- Americans Ages 20-29 = 116 mL/min/1.73 sq.m. Ages 30-39 = 107 mL/min/1.73 sq.m. Ages 40-49 = 99 mL/min/1.73 sq.m. Ages 50-59 = 93 mL/min/1.73 sq.m. Ages 60-69 = 85 mL/min/1.73 sq.m. Ages 70+ = 75 mL/min/1.73 sq.m. Chronic Kidney Disease: Less than 60 mL/min/1.73 square meters End Stage Renal Disease: Less than 15 mL/min/1.73 square meters Performed By: #### CBC, ADIFF, ANEU, BMP, GFR #### [place] [address] UA Collected: 10/01/2018 Status: F Source: [facility] 8:14 PM [facility] REPOSITORY TYPE CODE TESTS RESULT OUT OF RANGE REFERENCE UNITS LAB SPCUA(CHELA NC) UA Specimen Type Clean Catch LAB CLRUA(CHELA NC) UA Color Yellow LAB APPUA(CHELA NC) UA Appear Unknown Hazy LAB SGUA(LOIN C) UA Spec Grav 1.020 LAB GLUA(LOIN Negative mg/dL C) UA Glucose Negative LAB BILUA(CHELA Neg-Trace NC) UA Bili Negative LAB KETUA(CHELA Neg-Trace mg/dL NC) UA Ketones Negative LAB BLDUA(CHELA Neg-Trace NC) UA Blood Trace LAB PHUA(LOIN 5.0 - 8.0 C) UA pH Unknown 8.5 LAB PROUA(CHELA Negative mg/dL NC) UA Protein Negative LAB UROUA(CHELA E.U./dL NC) UA Unknown Urobilinogen 2.0 LAB NITUA(CHELA Negative NC) UA Nitrite Negative LAB LEUUA(CHELA Negative NC) UA Leuk Est Negative Performed By: #### UA, UAMIC #### [place] [address] UAMIC Collected: 10/01/2018 Status: F Source: [facility] 8:14 PM [facility] REPOSITORY TYPE CODE TESTS RESULT OUT OF RANGE REFERENCE UNITS LAB RBCUA(LOIN 0-2 /hpf C) UA RBC Negative LAB WBCUA(LOIN 0-5 /hpf C) UA WBC 0-2 LAB EPIUA(LOIN 0-20 /hpf C) UA Squam Epithelial Negative LAB CRBCU(LOIN /hpf C) UA Unknown Crenated RBCs 3-5 Performed By: #### UA, UAMIC #### [place] [address] ED NOTE Observed: 09/24/2018 Status: COMPLETED Source: [place] 11:17 PM [facility] REPOSITORY HNO ID: [id number] Author: Audrey Sloan) Brayan RN Service: Emergency Medicine Author Type: Registered Nurse Type: ED Notes Filed: 09/24/2018 11:19 PM Note Text: Pt was given discharge instructions and he verbalized understanding. Pt was in no acute distress and refused discharge vitals. Pt signed his discharge papers and stated that he saw the urologist and he doesn't want to do anything for me. Pt had no iv. Pt understands to f/u with a doctor. Pt ambulated with steady gait out of ER after discharge accompanied by his . ED NOTE Observed: 09/24/2018 Status: COMPLETED Source: [place] 10:35 PM [facility] REPOSITORY HNO ID: [id number] Author: Audrey Sloan) Brayan, RN Service: Emergency Medicine Author Type: Registered Nurse Type: ED Notes Filed: 09/24/2018 10:36 PM Note Text: Pt is resting in bed, no pain improvement, and has family is in room. Dr. Macias is aware. URINALYSIS ROUTINE Collected: 09/24/2018 Status: F Source: [facility] 10:12 PM [facility] REPOSITORY TYPE CODE TESTS RESULT OUT OF RANGE REFERENCE UNITS LAB MCOLR(LOIN C) Urine Color YELLOW LAB MAPPU(LOIN C) Urine Appearance CLEAR LAB MGLUU(LOIN Negative mg/dL C) Glucose Urine NEGATIVE LAB MKETO(LOIN Negative mg/dL C) Ketone Urine NEGATIVE LAB MHGBU(LOIN Negative C) Hemoglobin,Urin NEGATIVE e LAB MPRTU(LOIN Negative mg/dL C) Protein Urine NEGATIVE LAB MNITR(LOIN Negative C) Nitrites Urine NEGATIVE LAB MBILU(LOIN Negative C) Bilirubin Urine NEGATIVE LAB MSPG(LOINC 1.005-1.030 ) Specific 1.015 [place], Ur LAB MPHUR(LOIN 5.0-8.0 C) pH,Urine 7.5 LAB MUROB(LOIN 0.0-1.0 EU/dL C) Urobilinogen,Ur 0.2 LAB MLEUK(LOIN Negative C) Leukocytes NEGATIVE Esterase LAB MRBCU(LOIN 0-3 /hpf C) Abnormal RBC,Urine 4-6 LAB MWBCU(LOIN 0-5 /hpf C) WBC, Urine 0-2 LAB MEPIT(LOIN 0-5 /hpf C) Ep Cells Urine NONE Performed By: #### MURIN #### [facility] [address] [place] [address] ED PROV NOTE Observed: 09/24/2018 Status: COMPLETED Source: [place] 10:02 PM [facility] REPOSITORY O ID: [id number] Author: Renetta Macias MD Service: Emergency Medicine Author Type: Physician Type: ED Provider Notes Filed: 09/24/2018 11:28 PM Note Text: ED Provider Note Patient Name: Attila Del Cid SERVICE DATE: 09/24/18 History Patient presents with: Flank Pain: right Nausea AND Vomiting 48-year-old male patient presents the emergency department. Patient states he was diagnosed with kidney stones on September 22 and is here for continued symptoms. He states he was diagnosed with right- sided kidney stones. States she's been vomiting. Able to drink fluids. Denies any frequent urination or dysuria. Denies a fever. States she's had normal bowel movements. He is not having chest pain or shortness of breath. He states he is not on any medications for kidney stones. He denies any allergy to Toradol. States he's can plan with his medications for his blood pressure. PAST MEDICAL HISTORY Diagnosis Date - Acute right flank pain 03/25/2018 - Aneurysm of ascending aorta (HCC) - Aortic aneurysm (HCC) - Arthritis - Atrial fibrillation (HCC) - Calculi, ureter - Calculus of kidney - Hematuria - Hypertension - Kidney stones 03/25/2018 - Pneumonia - Psychiatric disorder anxiety - Renal calculus PAST SURGICAL HISTORY Procedure Laterality Date - BACK SURGERY HX 2015 FUSION, L4-L5 - COLONOSCOP W/ OR W/O BRSH SPEC 05/14/2014 Colonoscopy - EGD W/O OR W/BRUSH/WASH 05/14/2014 EGD - FRAGMENTING/KIDNEY STONE Right 2017 Lithotripsy - KNEE SURGERY HX Right 03/2017 patella replacement - [place] ANESTH,KNEE JOINT; NOS 12/2017 Left - REMOVAL OF KIDNEY STONE 04/2018 FAMILY HISTORY Problem Relation Age of Onset - Diabetes Mother - Colon Cancer Mother - Heart disease Mother - Hypertension Mother - Diabetes Sister - Skin Cancer Father Social History Social History Main Topics - Smoking status: Never Smoker - Smokeless tobacco: Never Used - Alcohol use No - Drug use: No - Sexual activity: Not on file ALLERGIES Allergen Reactions - Atorvastatin Other: See Comments Chest pain - Celebrex [Celecoxib] Vomiting Nausea - Clonidine Rash - Fentanyl GI Upset - Levofloxacin Rash pt reports to [facility] PT 04-13-2017 - Penicillin G Rash - Relpax [Eletriptan * Vomiting Nausea - Topamax [Topiramate] Vomiting - Vicodin [Hydrocodon* Vomiting - Wellbutrin [Bupropi* Vomiting Nausea Review of Systems Constitutional: Negative for diaphoresis and fever. HENT: Negative for congestion and sore throat. Eyes: Negative for discharge and redness. Respiratory: Negative for chest tightness, shortness of breath and stridor. Cardiovascular: Negative for chest pain and leg swelling. Gastrointestinal: Positive for vomiting. Negative for abdominal distention and abdominal pain. Endocrine: Negative for polydipsia and polyphagia. Genitourinary: Positive for flank pain. Negative for dysuria and frequency. Musculoskeletal: Negative for gait problem and neck pain. Skin: Negative for color change and pallor. Neurological: Negative for dizziness, weakness and numbness. Hematological: Negative for adenopathy. Does not bruise/bleed easily. Psychiatric/Behavioral: Negative for agitation and behavioral problems. Physical Exam BP 142/116 Pulse 89 Temp (Src) 96.4 (Temporal Artery) Resp 20 Ht 5' 11 (1.80m) Wt 230 lb (104.3kg) SpO2 100% BMI 32.09 kg/(m2). Physical Exam Constitutional: He is oriented to person, place, and time. He appears well-developed and well-nourished. HENT: Head: Normocephalic and atraumatic. Eyes: Pupils are equal, round, and reactive to light. EOM are normal. Neck: Neck supple. Cardiovascular: Normal heart sounds. Pulmonary/Chest: Breath sounds normal. Abdominal: Soft. Bowel sounds are normal. Musculoskeletal: Normal range of motion. Neurological: He is alert and oriented to person, place, and time. Skin: Skin is warm and dry. Psychiatric: He has a normal mood and affect. Nursing note and vitals reviewed. Diagnostic Testing ED Labs Ordered and Reviewed - No data to display Procedures ED Course / Clinical Impression Clinical Impressions as of Sep 24 2327 Hematuria, unspecified type Hypertension, unspecified type MDM / Disposition / Plan Patient has no reproducible flank pain no abdominal tenderness. I don't believe he is being truthful in his presentation as he tells me he was diagnosed with kidney stones when in fact he was not diagnosed with kidney stones he had a negative workup. I did review his ultrasound and x-rays which were negative for kidney stones. I do see in epic he spoke to urology as well who also feels that he does not have a kidney stone but did order a special test to check his kidney which she has not done yet. There is also a care plan for the patient as he has multiple CTs and narcotic prescriptions with multiple providers. Offered patient Toradol and Zofran for his symptoms. Reviewed his workup including labs and imaging from 2 days ago and don't feel we need to repeat any. He has a rapid capillary refill and his mucous membranes are moist and is able to provide urine instantaneously so I do not feel he is significantly dehydrated. Patient's blood pressure was elevated was improved on recheck. He is advised to follow with his primary physician for recheck of his hypertension. He does have a test ordered by his urologist for evaluation of his flank pain I've advised him to follow-up with a urologist. Did obtain a urinalysis which does have 4-6 red blood cells in his urine. He'll return to the ER for symptoms worsen otherwise follow- up with his primary physician and urologist. Disposition The patient was discharged. Counseled patient regarding suspected diagnosis. As well as the need for follow-up. Discharged home with verbal and written instructions. They were instructed to return as needed for persistent or worsening symptoms or any new concerns. Condition at disposition is stable. SIGNATURE: MD Renetta Tate MD 09/24/18 2328 ED NOTE Observed: 09/24/2018 Status: COMPLETED Source: [place] 9:47 PM [facility] REPOSITORY HNO ID: [id number] Author: Audrey AminRn) ALE Schmidt Service: Emergency Medicine Author Type: Registered Nurse Type: ED Notes Filed: 09/24/2018 9:48 PM Note Text: Pt c/o right flank pain, N and V. Pt was at ER on 09/22. Pt is still having symptoms of a kidney stone. Pt states he was told to come back if still having further problems. ED PROV NOTE Observed: 09/23/2018 Status: COMPLETED Source: [place] 12:21 AM [facility] REPOSITORY HNO ID: [id number] Author: Shanique Delgadillo MD Service: Emergency Medicine Author Type: Physician Type: ED Provider Notes Filed: 09/23/2018 12:42 AM Note Text: ED Provider Note Patient Name: Attila Del Cid SERVICE DATE: 09/22/18 History Patient presents with: Flank Pain: hx of kidney stones This is a 48-year-old white male history of recurrent kidney stones that staves over the past couple days he's had some nausea vomiting diarrhea intermittently but then tonight he noticed some right flank pain radiating down to his right groin. It originally started out around 4 PM then worsened around 7 PM for which she presents to the emergency department. He denies overt dysuria but does note that his urination seems to be associated with the symptoms. He states it feels very similar to past kidney stones. He's had multiple recurrent kidney stones many intervened upon by Dr. Perez. He denies chest pain he denies fevers or chills. He denies testicular pain. He denies trauma. PAST MEDICAL HISTORY Diagnosis Date - Acute right flank pain 03/25/2018 - Aneurysm of ascending aorta (HCC) - Aortic aneurysm (HCC) - Arthritis - Atrial fibrillation (HCC) - Calculi, ureter - Calculus of kidney - Hematuria - Hypertension - Kidney stones 03/25/2018 - Pneumonia - Psychiatric disorder anxiety - Renal calculus PAST SURGICAL HISTORY Procedure Laterality Date - BACK SURGERY HX 2015 FUSION, L4-L5 - COLONOSCOP W/ OR W/O BRSH SPEC 05/14/2014 Colonoscopy - EGD W/O OR W/BRUSH/WASH 05/14/2014 EGD - FRAGMENTING/KIDNEY STONE Right 2017 Lithotripsy - KNEE SURGERY HX Right 03/2017 patella replacement - [place] ANESTH,KNEE JOINT; NOS 12/2017 Left - REMOVAL OF KIDNEY STONE 04/2018 FAMILY HISTORY Problem Relation Age of Onset - Diabetes Mother - Colon Cancer Mother - Heart disease Mother - Hypertension Mother - Diabetes Sister - Skin Cancer Father Social History Social History Main Topics - Smoking status: Never Smoker - Smokeless tobacco: Never Used - Alcohol use No - Drug use: No - Sexual activity: Not on file ALLERGIES Allergen Reactions - Atorvastatin Other: See Comments Chest pain - Celebrex [Celecoxib] Vomiting Nausea - Clonidine Rash - Fentanyl GI Upset - Levofloxacin Rash pt reports to [facility] PT 04-13-2017 - Penicillin G Rash - Relpax [Eletriptan * Vomiting Nausea - Topamax [Topiramate] Vomiting - Vicodin [Hydrocodon* Vomiting - Wellbutrin [Bupropi* Vomiting Nausea Review of Systems All other systems reviewed and are negative. Physical Exam BP 121/91 Pulse 85 Temp (Src) 98.8 (Temporal Artery) Resp 15 Ht 5' 11 (1.80m) Wt 225 lb (102.1kg) SpO2 98% BMI 31.39 kg/(m2). Physical Exam Constitutional: He is oriented to person, place, and time. He appears well-developed and well-nourished. HENT: Head: Normocephalic and atraumatic. Right Ear: Tympanic membrane, external ear and ear canal normal. Left Ear: Tympanic membrane, external ear and ear canal normal. Mouth/Throat: Uvula is midline, oropharynx is clear and moist and mucous membranes are normal. Mucous membranes are not dry. Eyes: Pupils are equal, round, and reactive to light. Conjunctivae and EOM are normal. Right conjunctiva is not injected. Left conjunctiva is not injected. No scleral icterus. Neck: Neck supple. No JVD present. Cardiovascular: Normal rate, regular rhythm and intact distal pulses. Exam reveals no gallop and no friction rub. No murmur heard. Pulmonary/Chest: Effort normal and breath sounds normal. No stridor. No respiratory distress. He has no wheezes. He has no rhonchi. He has no rales. Abdominal: Soft. Bowel sounds are normal. He exhibits no distension. There is tenderness in the right upper quadrant. There is CVA tenderness. There is no rigidity, no rebound, no guarding, no tenderness at McBurney's point and negative Mckee's sign. Hernia confirmed negative in the right inguinal area and confirmed negative in the left inguinal area. Genitourinary: Testes normal and penis normal. Cremasteric reflex is present. Right testis shows no swelling and no tenderness. Left testis shows no swelling and no tenderness. Circumcised. Musculoskeletal: He exhibits no edema. Lymphadenopathy: He has no cervical adenopathy. No inguinal adenopathy noted on the right or left side. Neurological: He is alert and oriented to person, place, and time. He has normal strength. No cranial nerve deficit or sensory deficit. Gait normal. Skin: Skin is warm and dry. No rash noted. Diagnostic Testing ED Labs Ordered and Reviewed URINALYSIS WITH MICROSCOPIC (AK,AV,EU,FV,HL,ALLY,MM,SP) - Abnormal; Notable for the following: Result Value Ref Range Hemoglobin, Urine LARGE (*) Negative RBC, Urine 36-50 (*) 0 - 3 /hpf Sperm 6-12 (*) 0 - 1 /hpf All other components within normal limits COMPREHENSIVE METABOLIC PANEL (AK,AV,EU,FV,HL,ALLY,MM,SP) - Abnormal; Notable for the following: Potassium 3.4 (*) 3.5 - 5.1 mEq/L Glucose 106 (*) 70 - 99 mg/dL All other components within normal limits CBC + AUTO DIFF (AK,AV,EU,FV,HL,ALLY,MM,SP) - Abnormal; Notable for the following: MCV 77.9 (*) 81.8 - 95.6 fl MCH 25.8 (*) 27.4 - 32.8 pg RDW 15.5 (*) 11.8 - 14.5 % All other components within normal limits LIPASE BLOOD (AK,AV,EU,FV,HL,ALLY,MM,SP) MDRD GFR Procedures ED Course / Clinical Impression Clinical Impressions as of Sep 23 36 Kidney stone MDM / Disposition / Plan This is a 48-year-old white male presenting with right flank pain radiating to his groin feeling similar to past kidney stones. He does have a multidisciplinary plan of care note for frequent evaluations for similar complaints and for evaluations of chest pain as well with recommendations against home opiates and recommendations to minimize CT usage as clinically able. Given his presentation seems typical for his kidney stones and attempted to manage this patient without CT imaging and ordered a [id number] ultrasound and KUB. I also ordered labs including a CMP as he did have some mild right upper quadrant tenderness and lipase but clinically I was not concerned with appendicitis or other GI pathologies as it seemed to localize to the kidney on exam and on symptoms. His urine had microscopic hematuria consistent with kidney stone but his ultrasound and KUB were unremarkable. This may be due to nonobstructing renal or ureteral calculi. Patient improved after medication here and was recommended to follow-up with Dr. Perez and he was agreeable. He was counseled on diet and lifestyle changes. Diagnosis and chief complaint specific return precautions were reviewed in detail with the patient. The patient voiced understanding. Follow-up instructions reviewed with the patient. The patient voiced understanding. The patient was DISCHARGED: Counseled patient and significant other regarding lab results AND radiology results AND suspected diagnosis AND need for follow-up. Discharged home with verbal and written instructions. They were instructed to return as needed for persistent or worsening symptoms or any new concerns. Condition at time of disposition: stable SIGNATURE: Shanique Delgadillo MD Limited Ultrasound Bladder Examination Indication ? Patient has urinary retention and requires examination for assessment for outlet obstruction. Procedure in detail ? Using the curvilinear probe, the bladder was examined in both axial and sagittal planes and volumetrically measured to have approximately 25 ml?s of urine. ? Still images or video images were saved for this of this exam: Yes Conclusion ? Bladder volume measured by ultrasound showed findings Negative for urinary outflow obstruction This limited imaging study was performed by: Attending only. Limited Renal Ultrasound Indication ? Flank pain Procedure in detail ? Using the cruvilinear probe, axial and sagittal planes of the kidney were obtained of the Bilateral kidney. ? The calyces and ureter were identified and hydronephrosis was Not present ? Still images or video images were saved for this of this exam: Yes Conclusion ? Based on this limited bedside ultrasound of the kidneys findings were Normal without Hydronephrosis. ? Other Findings include: None. This limited imaging study was performed by: Attending only. Shanique Delgadillo MD 09/23/18 0042 ABDOMEN 1 VIEW Observed: 09/22/2018 Status: F Source: [facility] 19303 11:02 PM HEALTH SYSTEM REPOSITORY Performed at [facility] APPROVED BY: LESLY PHILLIPS MD EXAMINATION: ABDOMEN 1 VIEW [id number] CLINICAL HISTORY: Flank pain Technique: ABDOMEN 1 VIEW [id number] -- with views on images Comparison: CT 08/10/2018 RESULT: There is no evidence of free intraperitoneal air. There are no dilated loops of bowel. No mass is identified. No definite renal calculus is seen. There are phleboliths in the pelvis. There are post surgical changes of the lower lumbar spine. No acute osseous abnormality identified. IMPRESSION: No acute findings ED NOTE Observed: 09/22/2018 Status: COMPLETED Source: [place] 10:56 PM CLINIC OTHER CAMPUS REPOSITORY HNO ID: [id number] Author: Andressa (Rn) ALE Ferro Service: (none) Author Type: Registered Nurse Type: ED Notes Filed: 09/22/2018 10:58 PM Note Text: Introduced self to patient. ?Patient presents to the ED with two days of right sided flank pain, +N/V/D. He also is c/o burning with urination. He reports a history of kidney stones. Patient is alert and oriented X 3?and able to follow commands. ?Respirations easy and even, airway intact.?Pt alert and speaking full sentences. All other systems appear to be WNL at this time. Skin warm and dry. ?Comfort care provided. ?Call light in reach. ?Bed in low locked position. ?ID band in place. ?Awaiting further orders. ?Patient oriented to room. ? Plan of care for patient: monitor patient for any changes in condition, vital signs or pain, continue to maintain patient safety, provide comfort measures and answer any questions/concerns the patient may have. HEMOGRAM/DIFF Collected: 09/22/2018 Status: F Source: [facility] 10:40 PM HEALTH SYSTEM REPOSITORY TYPE CODE TESTS RESULT OUT OF REFERENCE UNITS RANGE LAB MWBC(LOINC 4.4-9.7 thou/cmm ) WBC 7.3 LAB MRBC(LOINC 4.22-5.80 mil/cmm ) RBC 5.30 LAB MHGB(LOINC 13.2-17.4 g/dL ) Hgb 13.7 LAB MHCT(LOINC 39.6-50.7 % ) Hct 41.3 LAB MMCV(LOINC 81.8-95.6 fl ) Low MCV 77.9 LAB MMCH(LOINC 27.4-32.8 pg ) Low MCH 25.8 LAB MMCHC(LOIN 31.9-35.6 % C) MCHC 33.2 LAB MRDW(LOINC 11.8-14.5 % ) RDW High 15.5 LAB MPLT(LOINC 150-370 thou/cmm ) Platelet 312 LAB MMPV(LOINC 8.8-12.1 fl ) MPV 9.0 LAB MSEGT(LOIN % C) Seg Neutrophil 50.4 LAB MLYMP(LOIN % C) Lymphocyte 37.0 LAB MMNO(LOINC % ) Monocyte 10.2 LAB MEOS(LOINC % ) Eosinophil 1.8 LAB MBASO(LOIN % C) Basophil 0.6 LAB MSEG2(LOIN 1.35-7.21 thou/cmm C) Abs. Neut (ANC) 3.67 LAB MLYMN(LOIN 0.68-2.93 thou/cmm C) Abs. Lymph 2.70 LAB MMONN(LOIN 0.19-0.80 thou/cmm C) Abs. [place] 0.74 LAB MEOSN(LOIN 0.00-0.36 thou/cmm C) Abs. Eosin 0.13 LAB MBASN(LOIN 0.00-0.08 thou/cmm C) Abs. Baso 0.04 Performed By: #### NCBCD #### [place] [id number] COMPREHENSIVE PANEL Collected: 09/22/2018 Status: F Source: [facility] 10:40 PM HEALTH SYSTEM REPOSITORY TYPE CODE TESTS RESULT OUT OF REFERENCE UNITS RANGE LAB MNA(LOINC) 136-145 mEq/L Sodium Blood 140 LAB MK(LOINC) 3.5-5.1 mEq/L Low Potassium Blood 3.4 LAB MCL(LOINC) 98-107 mEq/L Chloride Blood 105 LAB MCO2(LOINC 21-32 mEq/L ) CO2 Blood 26 LAB MGLU(LOINC 70-99 mg/dL ) Glucose High Blood 106 LAB MBUN(LOINC 7-18 mg/dL ) BUN Blood 13 LAB MCREA(LOIN 0.67-1.17 mg/dL C) Creatinine Blood 0.88 LAB MCA(LOINC) 8.5-10.1 mg/dL Calcium Blood 9.0 LAB ALBM(LOINC 3.4-5.0 g/dL ) Albumin Blood 3.4 LAB MTP(LOINC) 6.4-8.2 g/dL Total Protein 7.1 LAB MAST(LOINC 15-46 U/L ) AST-SGOT Blood 20 LAB MALT(LOINC 12-78 U/L ) ALT-SGPT Blood 33 LAB MALKP(LOIN 46-116 U/L C) Alk Phosphatase 103 LAB MBILT(LOIN 0.2-1.0 mg/dL C) Total Bilirubin 0.3 LAB MANGP(LOIN 8-16 C) Anion Gap 12 Performed By: #### MP14 #### [place] [address] LIPASE BLOOD Collected: 09/22/2018 Status: F Source: [facility] 10:40 PM HEALTH SYSTEM REPOSITORY TYPE CODE TESTS RESULT OUT OF REFERENCE UNITS RANGE LAB MLIP(LOINC) 73-393 U/L Lipase Blood 197 Performed By: #### MLIP #### [place] [address] MDRD EGFR Collected: 09/22/2018 Status: F Source: [facility] 10:37 PM HEALTH SYSTEM REPOSITORY TYPE CODE TESTS RESULT OUT OF RANGE REFERENCE UNITS LAB MGFRF(LOINC >60mL/min/1.73m ) 2 eGFR >60 Result Comment: If the patient is , multiply the result by 1.210. Performed By: #### MGFR #### [place] [address] URINALYSIS ROUTINE Collected: 09/22/2018 Status: F Source: [facility] 10:03 PM HEALTH SYSTEM REPOSITORY TYPE CODE TESTS RESULT OUT OF RANGE REFERENCE UNITS LAB MGLUU(CHELA Negative mg/dL NC) Glucose Urine NEGATIVE LAB MKETO(CHELA Negative mg/dL NC) Ketone Urine NEGATIVE LAB MHGBU(CHELA Negative NC) Abnormal Hemoglobin,Urine LARGE LAB MPRTU(CHELA Negative mg/dL NC) Protein Urine NEGATIVE LAB MNITR(CHELA Negative NC) Nitrites Urine NEGATIVE LAB MBILU(CHELA Negative NC) Bilirubin Urine NEGATIVE LAB MSPG(LOIN 1.005-1.030 C) Specific [place], Ur >=1.030 LAB MPHUR(CHELA 5.0-8.0 NC) pH,Urine 5.5 LAB MUROB(CHELA 0.0-1.0 EU/dL NC) Urobilinogen,Ur 0.2 LAB MLEUK(CHELA Negative NC) Leukocytes NEGATIVE Esterase LAB MCOLR(CHELA NC) Urine Color YELLOW LAB MAPPU(CHELA NC) Urine Appearance CLEAR LAB MRBCU(CHELA 0-3 /hpf NC) Abnormal RBC,Urine 36-50 LAB MWBCU(CHELA 0-5 /hpf NC) WBC, Urine 0-2 LAB MEPIT(CHELA 0-5 /hpf NC) Ep Cells Urine 2-5 LAB MSPRM(CHELA 0-1 /hpf NC) Abnormal Spermatozoa 6-12 Result Comment: Specimen manually reviewed. Performed By: #### MALOU #### [facility] [address] [place] [address] ED NOTE Observed: 09/22/2018 Status: COMPLETED Source: [place] 10:02 PM [facility] REPOSITORY HNO ID: [id number] Author: Cally AminRn) ALE Hernandez Service: (none) Author Type: Registered Nurse Type: ED Notes Filed: 09/22/2018 10:02 PM Note Text: Bed: [address] [place] [address] Expected date: 09/22/18 Expected time: 11:52 AM Means of arrival: Comments: ED NOTE Observed: 09/22/2018 Status: COMPLETED Source: [place] 10:00 PM [facility] OTHER CAMPUS REPOSITORY HNO ID: [id number] Author: Estee AminRn) ALE Beltran Service: Emergency Medicine Author Type: Registered Nurse Type: ED Notes Filed: 09/22/2018 10:01 PM Note Text: C/o right flank pain 730 pm. Taking tylenol PRN with minimal relief for known kidney stones. Mild hematuria noted earlier today. Cannot get in to see urologist until October. XR ABDOMEN 1V SUPINE Observed: 09/18/2018 Status: F Source: [place] 5:50 PM [facility] REPOSITORY * * *Final Report* * * DATE OF EXAM: Sep 18 2018 5:50PM WOX [id number] - XR ABDOMEN 1V SUPINE / PROCEDURE REASON: multiple diagnoses * * * * Physician Interpretation * * * * Abdomen supine: HISTORY: Indication: Kidney stones Renal calculus, right right posterior kidney pain. Hx of renal stones right posterior kidney pain. Hx of renal stones TECHNIQUE: Views obtained: XR ABDOMEN 1V SUPINE Comparison: 04/18/2018. RESULT: Findings: Surgical hardware for fusion of L4-5 again noted. No abnormal calcifications are seen. The bowel gas pattern is nonspecific and unremarkable.. No bony abnormalities are seen IMPRESSION: No acute pathology. 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: NEAL Transcribe Date/Time: Sep 21 2018 9:08A Dictated by : AMARILIS GREENE DO This examination was interpreted and the report reviewed and electronically signed by: AMARILIS GREENE DO on Sep 21 2018 9:09AM EST [id number] PROGRESS Observed: 09/18/2018 Status: COMPLETED Source: [place] 5:43 PM [facility] REPOSITORY HNO ID: [id number] Author: Joaquina Ny Service: (none) Author Type: (none) Type: Progress Notes Filed: 09/18/2018 5:50 PM Note Text: Radiology Service Progress Note PATIENT NAME: Attila Del Cid DATE OF SERVICE: September 18, 2018 TIME: 5:43 PM PATIENT IDENTITY VERIFICATION COMPLETED USING TWO (2) METHODS: Patient confirmed name verbally and Date of . PATIENT GENDER DATA: Male PATIENT RELEVANT IMPLANT DATA REVIEWED: Not Applicable RADIOLOGY DEPARTMENT: General X-ray: Exam(s) Completed: Abdomen X-Ray Abdomen PERIPHERAL IV DATA: Not applicable SIGNED BY: Joaquina Ny September 18, 2018 5:43 PM ED NOTE Observed: 09/17/2018 Status: COMPLETED Source: [place] 12:53 AM [facility] REPOSITORY HNO ID: [id number] Author: Maria Guadalupe AminRn) ALE Almazan Service: Nursing Author Type: Registered Nurse Type: ED Notes Filed: 09/17/2018 12:53 AM Note Text: Discharge instructions reviewed with pt and spouse. All questions answered. Pt leaving ambulatory with zero prescriptions URINALYSIS Collected: 09/16/2018 Status: F Source: [place] 11:15 PM [facility] REPOSITORY TYPE CODE TESTS RESULT OUT OF REFERENCE UNITS RANGE LAB UCOL Yellow Color Yellow LAB [facility] Clear Clarity Clear LAB UGLUC Negative mg/dL Glucose, Urine Negative LAB UBIL Negative Bilirubin, Urine Negative LAB UKET Negative Ketones, Urine Negative LAB USPG 1.001-1.029 Specific [place], Ur 1.020 LAB UHGB Negative Hemoglobin/Blood, Negative Ur LAB UPH 5.0-8.0 pH 7.0 LAB UPROT Negative mg/dL Protein, Urine Negative LAB UUROB 0.2-1.0 Urobilinogen 0.2 LAB UNITR Negative Nitrites Negative LAB ULKEST Negative Leukest Negative Performed By: #### UA #### [facility] [address] [facility] [phone] HIGH SENS TROPONIN T Collected: 09/16/2018 Status: F Source: [place] 11:15 PM [facility] REPOSITORY TYPE CODE TESTS RESULT OUT OF REFERENCE UNITS RANGE LAB HSTN <12 ng/L High Sensitivity NARGIS <6 Result Comment: When assessing risk for acute coronary syndromes: In patients undergoing blood draw greater than or equal to 2 hours from symptom onset, with history of very low to moderate risk and non-ischemic ECG, an initial hs-Troponin T less than 12 ng/L AND a 1 hour delta hs-Troponin T less than 3 ng/L should be considered very low risk for 30 day MACE. Performed By: #### HSTNT #### [facility] [address] [place] [address] XR CHEST 2V FRONTAL/LAT Observed: 09/16/2018 Status: F Source: [place] 11:05 PM [facility] REPOSITORY * * *Final Report* * * DATE OF EXAM: Sep 16 2018 11:05PM MDX [id number] - XR CHEST 2V FRONTAL/LAT / PROCEDURE REASON: Chest pain * * * * Physician Interpretation * * * * EXAMINATION: CHEST RADIOGRAPH (2 VIEW FRONTAL and LATERAL) CLINICAL HISTORY: Chest pain, MQ: XC2_5 Comparison: 08/11/2018 RESULT: Lines, tubes, and devices: None. Lungs and pleura: There is no pleural effusion or pneumothorax. The lungs are clear. Cardiomediastinal silhouette: Heart size and pulmonary vasculature are within normal limits. Other: No acute osseous abnormality seen. IMPRESSION: No acute radiographic abnormality. 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: PSCTrey Transcribe Date/Time: Sep 16 2018 11:05P Dictated by : LESLY PHILLIPS MD This examination was interpreted and the report reviewed and electronically signed by: LESLY PHILLIPS MD on Sep 16 2018 11:06PM EST [id number] ED NOTE Observed: 09/16/2018 Status: COMPLETED Source: [place] 10:59 PM CLINIC OTHER CAMPUS REPOSITORY HNO ID: [id number] Author: Aurea (Rn) Deuce RN Service: (none) Author Type: Registered Nurse Type: ED Notes Filed: 09/16/2018 10:59 PM Note Text: Patient transported to [facility] with Nurse. ED NOTE Observed: 09/16/2018 Status: COMPLETED Source: [place] 10:59 PM [facility] OTHER CAMPUS REPOSITORY HNO ID: [id number] Author: Aurea AminRn) Deuce RN Service: (none) Author Type: Registered Nurse Type: ED Notes Filed: 09/16/2018 10:59 PM Note Text: CBC AND DIFFERENTIAL Collected: 09/16/2018 Status: F Source: [place] 10:00 PM CLINIC OTHER CAMPUS REPOSITORY TYPE CODE TESTS RESULT OUT OF REFERENCE UNITS RANGE LAB WBC 3.70-11.00 k/uL WBC 9.16 LAB RBC 4.20-6.00 m/uL RBC 5.33 LAB HGB 13.0-17.0 g/dL Hemoglobin 13.4 LAB HCT 39.0-51.0 % Hematocrit 42.5 LAB MCV 80.0-100.0 fL Low MCV 79.7 LAB MCH 26.0-34.0 pG Low MCH 25.1 LAB MCHC 30.5-36.0 g/dL MCHC 31.5 LAB RDWCV 11.5-15.0 % RDW-CV High 15.9 LAB PLTCT 150-400 k/uL Platelet Count 327 LAB MPV 9.0-12.7 fL MPV 9.6 LAB ANEUT % Neut% 54.6 LAB AANEUT 1.45-7.50 k/uL Abs Neut 5.00 LAB ALYMP % Lymph% 33.0 LAB AALYMP 1.00-4.00 k/uL Abs Lymph 3.02 LAB AMONO % [place]% 11.2 LAB AAMONO <0.87 k/uL Abs [place] High 1.03 LAB AEOS % Eosin% 0.8 LAB AAEOS <0.46 k/uL Abs Eosin 0.07 LAB ABASO % Baso% 0.4 LAB AABASO <0.11 k/uL Abs Baso 0.04 Performed By: #### CBCDIF, CK, CMP #### [facility] [address] [place] [address] CK Collected: 09/16/2018 Status: F Source: [facility] 10:00 PM OTHER CAMPUS REPOSITORY TYPE CODE TESTS RESULT OUT OF RANGE REFERENCE UNITS LAB CK 51-298 U/L Low CK 32 Performed By: #### CBCDIF, CK, CMP #### [facility] [address] [place] [address] COMP METABOLIC PANEL Collected: 09/16/2018 Status: F Source: [place] 10:00 PM CLINIC OTHER CAMPUS REPOSITORY TYPE CODE TESTS RESULT OUT OF REFERENCE UNITS RANGE LAB TP 6.3-8.0 g/dL Low Protein, Total 6.1 LAB ALB 3.9-4.9 g/dL Low Albumin 3.7 LAB CA 8.5-10.2 mg/dL Calcium, Total 8.8 LAB TBIL 0.2-1.3 mg/dL Bilirubin, Total 0.2 LAB ALKP 38-113 U/L Alkaline Phosphatase 84 LAB AST 14-40 U/L AST 15 LAB GLU 74-99 mg/dL Glucose 76 Result Comment: The [place] [employer] (ADA) provides guidance for cutoff values for fasting glucose and random glucose. The ADA defines fasting as no caloric intake for at least 8 hours. Fas ting plasma glucose results between 100 to 125 mg/dL indicate increased risk for diabetes (prediabetes). Fasting plasma glucose results greater than or equal to 126 mg/dL meet the criteria for diagnosis of diabetes. In the absence of unequivocal hyperglycemia, results should be confirmed by repeat testing. In a patient with classic symptoms of hyperglycemia or hyperglycemic crisis, random plasma glucose results greater than or equal to 200 mg/dL meet the criteria for diagnosis of diabetes. Reference: Standards of Medical Care in Diabetes 2016, [place] [employer] Association. Diabetes Care. 2016.39(Suppl 1). LAB BUN 9-24 mg/dL BUN 16 LAB CRET 0.73-1.22 mg/dL Creatinine 0.79 LAB NA 136-144 mmol/L Sodium 139 LAB K 3.7-5.1 mmol/L Potassium Low 3.6 LAB CL 97-105 mmol/L Chloride 103 LAB CO2 22-30 mmol/L CO2 25 LAB AGAP 9-18 mmol/L Anion Gap 11 LAB ALT 10-54 U/L ALT 21 LAB GFRAA eGFR- Amer. >60 LAB GFRNAA . eGFR-All Other Races >60 Result Comment: eGFR (Estimated GFR) Units of measure: mL/min/1.73 meters squared eGFR is derived from the reexpressed MDRD Study equation using the following parameters: serum creatinine, age, gender and race. The creatinine assay has been calibrated to be traceable to IDMS. An eGFR <60 mL/min/1.73m2 for >3 months is consistent with chronic kidney disease. Refer to KDOQI guidelines for clinical interpretation. In patients with unstable renal function, e.g. those with acute kidney injury, the eGFR may not accurately reflect actual GFR. Performed By: #### CBCDIF, CK, CMP #### [facility] [address] [facility] [phone] HIGH SENS TROPONIN T Collected: 09/16/2018 Status: F Source: [place] 10:00 PM [facility] REPOSITORY TYPE CODE TESTS RESULT OUT OF REFERENCE UNITS RANGE LAB HSTN <12 ng/L High Sensitivity NARGIS <6 Result Comment: When assessing risk for acute coronary syndromes: In patients undergoing blood draw greater than or equal to 2 hours from symptom onset, with history of very low to moderate risk and non-ischemic ECG, an initial hs-Troponin T less than 12 ng/L AND a 1 hour delta hs-Troponin T less than 3 ng/L should be considered very low risk for 30 day MACE. Performed By: #### HSTNT #### [facility] [address] [facility] [phone] ED PROV NOTE Observed: 09/16/2018 Status: COMPLETED Source: [place] 9:51 PM CLINIC OTHER [place] REPOSITORY HNO ID: [id number] Author: Regina Francisco MD Service: (none) Author Type: Physician Type: ED Provider Notes Filed: 09/17/2018 12:35 AM Note Text: ED Provider Note Patient Name: Attila Del Cid SERVICE DATE: 09/16/18 History Patient presents with: Flank Pain Chest Pain paitent with h/o Right flank pain, kidney stones, AAA, Afib, and HTN who presents with 2 day history of right flank pain and urinary frequency. He reports having a subjective temperature three days ago. He reports getting chest pain while waiting in triage. It is central in location and sharp. He denies sob, cough, leg swelling/pain, belly pain, n/v, or scrotal pain. Patient was seen this morning in an ED for sinus headache and placed on antibiotics. He did not tell them about his flank pain. OARS reviewed and Care plan in place. PAST MEDICAL HISTORY Diagnosis Date - Acute right flank pain 03/25/2018 - Aneurysm of ascending aorta (HCC) - Aortic aneurysm (HCC) - Arthritis - Atrial fibrillation (HCC) - Calculi, ureter - Calculus of kidney - Hematuria - Hypertension - Kidney stones 03/25/2018 - Pneumonia - Psychiatric disorder anxiety - Renal calculus PAST SURGICAL HISTORY Procedure Laterality Date - BACK SURGERY HX 2014 FUSION, L4-L5 - COLONOSCOP W/ OR W/O BRSH SPEC 05/14/2014 Colonoscopy - EGD W/O OR W/BRUSH/WASH 05/14/2014 EGD - FRAGMENTING/KIDNEY STONE Right 2017 Lithotripsy - KNEE SURGERY HX Right 03/2017 patella replacement - [place] ANESTH,KNEE JOINT; NOS 12/2017 Left - REMOVAL OF KIDNEY STONE 04/2018 FAMILY HISTORY Problem Relation Age of Onset - Diabetes Mother - Colon Cancer Mother - Heart disease Mother - Hypertension Mother - Diabetes Sister - Skin Cancer Father Social History Social History Main Topics - Smoking status: Never Smoker - Smokeless tobacco: Never Used - Alcohol use No - Drug use: No - Sexual activity: Not on file ALLERGIES Allergen Reactions - Atorvastatin Other: See Comments Chest pain - Celebrex [Celecoxib] Vomiting Nausea - Clonidine Rash - Fentanyl GI Upset - Levofloxacin Rash pt reports to [facility] PT 04-13-2017 - Penicillin G Rash - Relpax [Eletriptan * Vomiting Nausea - Topamax [Topiramate] Vomiting - Vicodin [Hydrocodon* Vomiting - Wellbutrin [Bupropi* Vomiting Nausea Review of Systems Constitutional: Positive for fever. Negative for chills. HENT: Positive for sinus pain and sinus pressure. Negative for congestion. Eyes: Negative. Respiratory: Negative. Negative for cough and shortness of breath. Cardiovascular: Positive for chest pain. Negative for palpitations and leg swelling. Gastrointestinal: Negative. Negative for abdominal pain, constipation, diarrhea, nausea and vomiting. Genitourinary: Positive for flank pain. Skin: Negative. Neurological: Negative. Negative for dizziness. Psychiatric/Behavioral: Negative. All other systems reviewed and are negative. Physical Exam BP 118/80 Pulse 87 Temp (Src) 97.9 (Oral) Resp 18 Ht 5' 11 (1.80m) Wt 230 lb (104.3kg) SpO2 97% BMI 32.09 kg/(m2). Physical Exam Constitutional: He is oriented to person, place, and time. He appears well-developed and well-nourished. No distress. HENT: Head: Normocephalic and atraumatic. Right Ear: External ear normal. Left Ear: External ear normal. Nose: Nose normal. Mouth/Throat: Oropharynx is clear and moist. Eyes: Pupils are equal, round, and reactive to light. Conjunctivae and EOM are normal. Neck: Normal range of motion. Neck supple. Cardiovascular: Normal rate, regular rhythm, normal heart sounds and intact distal pulses. No murmur heard. Pulmonary/Chest: Effort normal and breath sounds normal. No stridor. No respiratory distress. He has no wheezes. He has no rales. Abdominal: Soft. He exhibits no distension. There is no tenderness. There is no rebound. Musculoskeletal: Normal range of motion. He exhibits no edema or tenderness. Lymphadenopathy: He has no cervical adenopathy. Neurological: He is alert and oriented to person, place, and time. He has normal reflexes. Skin: Skin is warm and dry. No rash noted. No erythema. Psychiatric: He has a normal mood and affect. His behavior is normal. Judgment and thought content normal. Nursing note and vitals reviewed. Diagnostic Testing ED Labs Ordered and Reviewed - No data to display Results for orders placed or performed during the hospital encounter of 09/16/18 COMP METABOLIC PANEL Result Value Ref Range Protein, Total 6.1 (L) 6.3 - 8.0 g/dL Albumin 3.7 (L) 3.9 - 4.9 g/dL Calcium 8.8 8.5 - 10.2 mg/dL Bilirubin, Total 0.2 0.2 - 1.3 mg/dL Alkaline Phosphatase 84 38 - 113 U/L AST 15 14 - 40 U/L Glucose 76 74 - 99 mg/dL BUN 16 9 - 24 mg/dL Creatinine 0.79 0.73 - 1.22 mg/dL Sodium 139 136 - 144 mmol/L Potassium 3.6 (L) 3.7 - 5.1 mmol/L Chloride 103 97 - 105 mmol/L CO2 25 22 - 30 mmol/L Anion Gap 11 9 - 18 mmol/L ALT 21 10 - 54 U/L eGFR- >60 eGFR-All Other Races >60 . HIGH SENSITIVITY TROPONIN T Result Value Ref Range NARGIS High Sensitivity <6 <12 ng/L CK CREATINE KINASE Result Value Ref Range CK 32 (L) 51 - 298 U/L CBC + DIFF Result Value Ref Range WBC 9.16 3.70 - 11.00 k/uL RBC 5.33 4.20 - 6.00 m/uL Hemoglobin 13.4 13.0 - 17.0 g/dL Hematocrit 42.5 39.0 - 51.0 % MCV 79.7 (L) 80.0 - 100.0 fL MCH 25.1 (L) 26.0 - 34.0 pG MCHC 31.5 30.5 - 36.0 g/dL RDW-CV 15.9 (H) 11.5 - 15.0 % Platelet Count 327 150 - 400 k/uL MPV 9.6 9.0 - 12.7 fL Neut% 54.6 % Abs Neut (ANC) 5.00 1.45 - 7.50 k/uL Lymph% 33.0 % Abs Lymph 3.02 1.00 - 4.00 k/uL [place]% 11.2 % Abs [place] 1.03 (H) <0.87 k/uL Eosin% 0.8 % Abs Eosin 0.07 <0.46 k/uL Baso% 0.4 % Abs Baso 0.04 <0.11 k/uL URINALYSIS Result Value Ref Range Color Yellow Yellow Appearance (U) Clear Clear Glucose, Urine Negative Negative mg/dL Bilirubin, Urine Negative Negative Ketones, Urine Negative Negative Specific [place], Ur 1.020 1.001 - 1.029 Hemoglobin/Blood,Ur Negative Negative pH, Urine 7.0 5.0 - 8.0 Protein, Urine Negative Negative mg/dL Urobilinogen 0.2 0.2 - 1.0 Nitrites Negative Negative Leukest Negative Negative HIGH SENSITIVITY TROPONIN T Result Value Ref Range NARGIS High Sensitivity <6 <12 ng/L XR CHEST 2V FRONTAL/LAT Final Result IMPRESSION: No acute radiographic abnormality. 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: NEAL Transcribe Date/Time: Sep 16 2018 11:05P Dictated by : LESLY PHILLIPS MD This examination was interpreted and the report reviewed and electronically signed by: LESLY PHILLIPS MD on Sep 16 2018 11:06PM EST Procedures ED Course / Clinical Impression Clinical Impressions as of Sep 17 0015 Right flank pain Other chest pain MDM / Disposition / Plan Nurses notes and old chart reviewed Patient here with central chest discomfort and right flank pain. H/o same in the past with kidney stones and CHF Ddx: CAD, pneumonia, GERD, JAYNE, PE, Kidney stone, kidney infection, Work up in ED, reveals a normal urinalysis, EKG normal sinus rhythm rate78 no acute st changes, two normal sensitive trops, WBC 9.16, HGB 13.4, BUN/Cr 16/0.79, normal CXR While in ED, he was given IV toradol with improvement of symptoms, care plan in place and followed. Atypical chest pain with normal EKG and labs, No evidence of blood in urine therefore CT held. Pain under control. Will d/c home with outpatient follow up. The patient was DISCHARGED: Counseled patient and family regarding lab results AND radiology results AND suspected diagnosis AND need for follow-up. Discharged home with verbal and written instructions. They were instructed to return as needed for persistent or worsening symptoms or any new concerns. Condition at time of disposition: stable SIGNATURE: MD Regina Mittal MD 09/17/18 0035 EKG Observed: 09/16/2018 Status: F Source: [place] 9:50 PM [facility] OTHER [facility] REPOSITORY NAME : ATTILA DEL CID PID : [id number] : 1970 Gender : Male Race : ORD : [id number] Procedure Date : Sep 16 2018 21:50:24 Edit Date : Sep 25 2018 13:39:38 Diagnosis:NORMAL SINUS RHYTHM NORMAL ECG normal - Dr. Travis Dixon [id number] Confirmed by Jona DIXON, CARLOS Martinez ([id number]), dictionary editor LESLY ROCKWELL ([id number]) on 09/25/2018 1:39:36 PM Ventricular Rate : 78 BPM Atrial Rate : 78 BPM P-R Interval : 150 ms QRS Duration : 82 ms Q-T Interval : 394 ms QTC Calculation(Bezet) : 449 ms P [place] : 27 degrees R [place]wood : 13 degrees T [place] : 29 degrees Test Reason : Chest Pain Location : 1 : ER 1 Overread By : Jona DIXON MATTHEW D. Edited By : LESLY ROCKWELL Referred By : , Acquired by : [place] GALLO NOTE Observed: 09/16/2018 Status: COMPLETED Source: [place] 9:33 PM [facility] OTHER [facility] REPOSITORY HNO ID: [id number] Author: Maria Guadalupe (Rn) ALE Almazan Service: Nursing Author Type: Registered Nurse Type: ED Notes Filed: 09/16/2018 9:34 PM Note Text: Pt presents to ED with c/o flank pain on and off for a week. Also complains of chest pain. History of kidney stones. States it feels like another one XR CHEST 2 VIEWS Observed: 09/01/2018 Status: F Source: [facility] [employer] 5:52 PM [facility] REPOSITORY ORIGINAL XR CHEST 2 VIEWS CLINICAL STATEMENT: Cough, shortness of breath, chest pain COMPARISON: 08/15/2018 FINDINGS: The cardiomediastinal contours are unchanged. There is eventration of the RIGHT hemidiaphragm, unchanged. There is no consolidation, significant vascular congestion, pleural effusion, or pneum othorax. There are no acute abnormalities to osseous structures. IMPRESSION: No acute radiographic findings. I have personally reviewed the images of this examination and agree with the resident's findings and interpretation. Interpreted By: Brody Long MD Preliminary Report By: Varsha Avery MD Electronically Signed By: Brody Long MD Dictated Date: 09/01/2018 6:04:23 PM Prelim Date: 09/01/2018 6:06:40 PM Sign Date: 09/01/2018 6:13:16 PM EMERGENCY DEPARTMENT Observed: 08/31/2018 Status: F Source: [place] SUMMARY 3:48 PM [facility] REPOSITORY [facility] Medical Records Department [address] [place] [address] Emergency Department Summary 08/31/18 1336 MR#: [id number] Acct: [id number] Name: ATTILA DEL CID Rep #: [id number] : 1970 48 From: Keyon Grace MD PCP: OUT OF TOWN DOCTOR Status: DEP ER - ER Visit Summary Date of Service: 08/31/18 Chief Complaint: [] Copious rhinorrhea harsh cough 2 or 3 days History of Present Illness: The patient is a 48 M [] history of intermittent A. fib CHF all those conditions have been stable he indicates over the last 2 or 3 days he has developed copious rhinorrhea with a harsh cough, he indicates he coughs up yellow mucus today he coughed up some slightly blood-tinged mucus he is constantly blowing his nose. He has no history of MA PE or DVT his other health conditions have been very stable he spoke with the nurse practitioner product controller was instructed to come to the hospital Physical Examination: [] His blood pressure is 130/80 his pulse ox is 99% on room air he is in no distress his nose is congested his throat is clear his neck is supple his lungs are clear bilaterally his heart tones are normal the abdomen soft nontender upper lower extremities unremarkable neurologically he is awake alert resting comforting bed no distress Test Results: [] Emergency Department Course and Treatment: [] Chief complaint seems to be the copious rhinorrhea and the coughing he does not have a harsh cough here his lungs are perfectly clear his nose is quite congested by his history worse over the last few days. He is comfortable with discharge home, this time which with Afrin nasal spray Mucinex, Flonase for home follow-up as outpatient providers tomorrow Treatment Plan: [] Disposition: [] Home stable Impression: [] URI with harsh cough This note was generated with Cloud[employer] dictation software. It may contain incorrect words, spelling, and punctuation that were not noted in review of the chart prior to signing ED Disposition - Plan for ED Patient: Chief Complaint: Shortness of Breath Referrals: Nyla Bearden MD [Primary Care Provider] - What to do if you have Problems For any increased pain, shortness of breath, bleeding, nausea or vomiting, chest pain, or any unexpected problems, contact your Primary Care Provider. Call [facility] ([phone]) or report to the closest Emergency Room. Call 911 if necessary. 08/31/18 2631 <Electronically signed by Keyon Grace MD> Date Keyon Grace MD Cosigner Signature (If Indicated): Date CC: OUT OF TOWN DOCTOR DISCHARGE INSTRUCTION Observed: 08/31/2018 Status: F Source: [place] 1:42 PM [facility] REPOSITORY [facility] Medical Records Department [address] [place] [address] Discharge Instruction 08/31/18 1340 MR#: [id number] Acct: [id number] Name: ATTILA DEL CID Rep #: [id number] : 1970 48 From: Keyon Grace MD PCP: Nyla Bearden MD Status: PRE ER ED Disposition - Plan for ED Patient: Chief Complaint: Shortness of Breath Instructions: ED Upper Resp Infec No Abx Tx Prescriptions: Fluticasone 0.05% [Flonase Nasal [place]] 1 spray NASAL DAILY #1 nasal.sry Guaifenesin [Mucinex] 1,200 mg PO BID #14 tbmp.12hr Referrals: Nyla Bearden MD [Primary Care Provider] - What to do if you have Problems For any increased pain, shortness of breath, bleeding, nausea or vomiting, chest pain, or any unexpected problems, contact your Primary Care Provider. Call [facility] ([phone]) or report to the closest Emergency Room. Call 911 if necessary. 08/31/18 1342 <Electronically signed by Keyon Grace MD> Date Keyon Grace MD Cosigner Signature (If Indicated): Date __ CC: Nyla Bearden MD PROGRESS Observed: 08/28/2018 Status: COMPLETED Source: [place] 6:16 PM [facility] REPOSITORY HNO ID: [id number] Author: Jude Allen (Pa) Service: (none) Author Type: Physician Filler Machine Operator Type: Progress Notes Filed: 08/28/2018 6:20 PM Note Text: Triage note: Patient was c/o midsternal chest pressure, SOB with exertion, and new onset dizziness (different from his baseline vertigo) that started last night. Pt was immediately sent to ED for further evaluation. CNOV Observed: 08/28/2018 Status: COMPLETED Source: [place] 6:00 PM [facility] REPOSITORY Office Visit (WSTR) ATTILA DEL CID ([id number]) 1970 M Date Time Provider Department 08/28[facility]18 [facility] During your visit today, we recorded the following information about you: Jude Allen PA-C 08/28/2018 6:20 PM Signed Triage note: Patient was c/o midsternal chest pressure, SOB with exertion, and new onset dizziness (different from his baseline vertigo) that started last night. Pt was immediately sent to ED for further evaluation. Referring Provider: SELF [200] Allergies As of Date: 08/28/2018 Noted Allergy Reaction ATORVASTATIN 10/09/2017 14 - Other: See Comments Comments: Chest pain CELEBREX (CELECOXIB) 07/17/2016 11 - Vomiting Comments: Nausea CLONIDINE 07/17/2016 2 - Rash FENTANYL 07/17/2016 8 - GI Upset LEVOFLOXACIN 04/13/2017 2 - Rash Comments: pt reports to [facility] PT 6-2017 PENICILLIN G 12/30/2013 2 - Rash RELPAX (ELETRIPTAN HBR) 07/17/2016 11 - Vomiting Comments: Nausea TOPAMAX (TOPIRAMATE) 07/17/2016 11 - Vomiting VICODIN (HYDROCODONE-ACETAMINOPHE*12/30/2013 11 - Vomiting WELLBUTRIN (BUPROPION HCL) 07/17/2016 11 - Vomiting Comments: Nausea Date Reviewed: 08/10/2018 Reviewed by: Fiona (Rn) ALE Choe - Fully Assessed Reason for Visit: Sore Throat [200] Cmt: with H/A AND N/V x 1 days Primary Visit Diagnosis:Chest pain, unspecified type [R07.9] Prescriptions as of 08/28/2018 Sig: CYCLOBENZAPRINE 10 MG TABLET Take 1 tablet by mouth three * CYCLOBENZAPRINE 10 MG TABLET Take 1 tablet by mouth three * LIDOCAINE 5 % TOPICAL PATCH Apply 1 Patch as directed guerrero* ISOSORBIDE MONONITRATE ER 30 * Take 30 mg by mouth once chrystal* NITROGLYCERIN 0.4 MG SUBLINGU* Dissolve 0.4 mg under the ton* PROMETHAZINE 25 MG TABLET Take 1 tablet by mouth every * SOTALOL 120 MG TABLET Take 120 mg by mouth twice da* ONDANSETRON 4 MG DISINTEGRATI* Take 1 tablet by mouth every * METHOCARBAMOL 750 MG TABLET Take 1 tablet by mouth four t* Patient not taking: Reported on 07/28/2018 ATORVASTATIN 20 MG TABLET every day ESCITALOPRAM 10 MG TABLET every day AMLODIPINE 5 MG TABLET Take 5 mg by mouth twice chrystal* BABY ASPIRIN ORAL Take 1 tablet by mouth once d* TAMSULOSIN 0.4 MG CAPSULE every day GABAPENTIN 300 MG CAPSULE Take 100 mg by mouth daily at* APIXABAN 5 MG TABLET Take by mouth twice daily. MECLIZINE 12.5 MG TABLET Take 2 tablets by mouth twice* LISINOPRIL 20 MG TABLET Take 1 tablet by mouth once d* PANTOPRAZOLE 40 MG TABLET,DEL* Take 1 tablet by mouth once d* ALBUTEROL SULFATE HFA 90 MCG/* Inhale 2 Puffs as instructed * Problem List As Of Date 08/28/2018 Noted Resolved Primary osteoarthritis of right knee [M17.11] INVALID FOR* Chest pain at rest [R07.9] INVALID FOR* HTN (hypertension) [I10] INVALID FOR* Atrial fibrillation (HCC) [I48.91] INVALID FOR* More... 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 Renal calculus, right [N20.0] INVALID FOR* TIA (transient ischemic attack) [G45.9] INVALID FOR* Priority: A Calculus of kidney [N20.0] INVALID FOR* More... Encounter Status:Closed by JUDE ALLEN on 08/28/18 HOSP Observed: 08/26/2018 Status: COMPLETED Source: [place] 12:00 AM [facility] OTHER [facility] REPOSITORY Patient Update (ME) MARIA EUGENIAATTILA K ([id number]) 1970 M Date Time Provider Department 08/26/18 CARLOS DIXON AR During your visit today, we recorded the following information about you: Carlos Dioxn MD, MD 08/26/2018 3:33 PM Signed MULTIDISCIPLINARY CARE PLAN PLAN IMPLEMENTATION DATE: 08/26/2018 REASON(S) FOR ICP: Frequent hospital admissions for similar complaints and Substance use disorders Multiple CT's in rolling 2 moths OARRS 26 providers COMMON COMPLAINTS AND PRIOR EVALUATIONS: 1. AAA 2. A-Fib on Eliquis 3. HTN 4. Kidney stones 5. TIA 6. Chest pain ICP COMMITTEE RECOMMENDATIONS: 1. Contact Social Work immediately upon admission. 2. OARRS No home going narcotics 3. Avoid CT's unless clinical necessary 4. Chest pain - follow rapid r/o protocol COMMUNITY SOCIAL SERVICE SUPPORT PLAN: 1. Offer community resources. This consensus plan was developed by the group members of the Individual Care Plan committee which met in person on 08/26/2018. SIGNATURE: Carlos Dixon MD PATIENT NAME: Attila Del Cid DATE: August 26, 2018 TIME: 3:28 PM Allergies As of Date: 08/26/2018 Noted Allergy Reaction ATORVASTATIN 10/09/2017 14 - Other: See Comments Comments: Chest pain CELEBREX (CELECOXIB) 07/17/2016 11 - Vomiting Comments: Nausea CLONIDINE 07/17/2016 2 - Rash FENTANYL 07/17/2016 8 - GI Upset LEVOFLOXACIN 04/13/2017 2 - Rash Comments: pt reports to [facility] PT 6-24-2017 PENICILLIN G 12/30/2013 2 - Rash RELPAX (ELETRIPTAN HBR) 07/17/2016 11 - Vomiting Comments: Nausea TOPAMAX (TOPIRAMATE) 07/17/2016 11 - Vomiting VICODIN (HYDROCODONE-ACETAMINOPHE*12/30/2013 11 - Vomiting WELLBUTRIN (BUPROPION HCL) 07/17/2016 11 - Vomiting Comments: Nausea Date Reviewed: 08/10/2018 Reviewed by: Fiona AminRn) ALE Choe - Fully Assessed Prescriptions as of 08/26/2018 Sig: CYCLOBENZAPRINE 10 MG TABLET Take 1 tablet by mouth three * CYCLOBENZAPRINE 10 MG TABLET Take 1 tablet by mouth three * LIDOCAINE 5 % TOPICAL PATCH Apply 1 Patch as directed guerrero* ISOSORBIDE MONONITRATE ER 30 * Take 30 mg by mouth once chrystal* NITROGLYCERIN 0.4 MG SUBLINGU* Dissolve 0.4 mg under the ton* PROMETHAZINE 25 MG TABLET Take 1 tablet by mouth every * SOTALOL 120 MG TABLET Take 120 mg by mouth twice da* ONDANSETRON 4 MG DISINTEGRATI* Take 1 tablet by mouth every * METHOCARBAMOL 750 MG TABLET Take 1 tablet by mouth four t* Patient not taking: Reported on 07/28/2018 ATORVASTATIN 20 MG TABLET every day ESCITALOPRAM 10 MG TABLET every day AMLODIPINE 5 MG TABLET Take 5 mg by mouth twice chrystal* BABY ASPIRIN ORAL Take 1 tablet by mouth once d* TAMSULOSIN 0.4 MG CAPSULE every day GABAPENTIN 300 MG CAPSULE Take 100 mg by mouth daily at* APIXABAN 5 MG TABLET Take by mouth twice daily. MECLIZINE 12.5 MG TABLET Take 2 tablets by mouth twice* LISINOPRIL 20 MG TABLET Take 1 tablet by mouth once d* PANTOPRAZOLE 40 MG TABLET,DEL* Take 1 tablet by mouth once d* ALBUTEROL SULFATE HFA 90 MCG/* Inhale 2 Puffs as instructed * Problem List As Of Date 08/26/2018 Noted Resolved Primary osteoarthritis of right knee [M17.11] INVALID FOR* Chest pain at rest [R07.9] INVALID FOR* HTN (hypertension) [I10] INVALID FOR* Atrial fibrillation (HCC) [I48.91] INVALID FOR* More... 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 Renal calculus, right [N20.0] INVALID FOR* TIA (transient ischemic attack) [G45.9] INVALID FOR* Priority: A Calculus of kidney [N20.0] INVALID FOR* More... Encounter Status:Closed by CARLOS DIXON MD on 08/26/18 LIPID Collected: 08/22/2018 Status: F Source: [facility] 3:19 PM FOUNDATION REPOSITORY TYPE CODE TESTS RESULT OUT OF REFERENCE UNITS RANGE LAB CHOL(LOINC 0-200 mg/dL ) Cholesterol 161 Result Comment: Cholesterol Reference Interval: Less than 200 Desirable 200-239 Borderline high risk 240 and above High risk LAB TRIG(LOINC) 0-150 mg/dL Triglycerides 143 Result Comment: Triglyceride Reference Interval: Less than 150 Normal 150-199 Borderline high risk 200-499 High risk 500 or higher Very high risk LAB HD(LOINC) 40-60 mg/dL HDL Low Cholesterol 30 LAB LDL(LOINC) 0-130 mg/dL LDL Cholesterol 102 Performed By: #### LIPID #### [place] [address] DISCHARGE SUMMARY Observed: 08/17/2018 Status: F Source: [employer] 12:23 PM SYSTEM REPOSITORY Hospitalist Discharge Summary Attila Del Cid : 1970 Admit date: 08/15/2018 Discharge date: 08/17/18 Admitting Physician: René Ruiz MD Primary Care Physician: Wyatt Street MD Visit Status: Observation Code Status: Prior Discharge Diagnoses: 1. Chronic chest pain 2. H/o kidney stones 3. Ascending aortic aneurysm, unchanged 4. A-fib s/p ablation 5. HTN 6. Chronic diastolic heart failure 7. Anxiety/depression 8. Morbid obesity 9. LORETTA 10. HLD Additional diagnosis evaluated and treated during the admission: Patient Active Problem List Diagnosis Code ? Chest pain R07.9 Hospital Course: 48 y.o. male who with the above mentioned past medical history presented to [place] ED with complaints of bilateral flank pain. CT abdomen showed non obstructing stones. Patient was going to be released but started to complain about left sided chest pain. EKG was unremarkable. Troponins were cycled and negative. He recently underwent cardiac stress testing, (3 months ago) as well as cardiac cath (6 months ago). Both were normal. Patient has a known 4.8 cm ascending aortic aneurysm, no changes in diameter were noted on CTA of the chest. Cardiology was consulted. Cardiac meds were adjusted. He was advised to follow up with psychiatry for treatment of his anxiety. See medication adjustments below in med rec. Consults: Cardiology Discharge Instructions: Diet: cardiac, low calorie Activity: as tolerated Recommended Outpatient Tests: none Disposition: Patient discharged in stable condition to Home. Vitals: BP 120/84 Pulse 115 Temp 98.4 ?F (36.9 ?C) (Temporal) Resp 16 Ht 5' 11 (1.803 m) Wt 235 lb (106.6 kg) SpO2 93% BMI 32.78 kg/m? Pulse Ox: No Data Recorded Supplemental O2: General appearance: No apparent distress, appears stated age and cooperative with exam HEENT: Extra ocular muscles intact. Conjunctivae/corneas clear. Neck: No lymphadenopathy. Respiratory: Normal respiratory effort. Clear to auscultation, bilaterally without Rales/Wheezes/Rhonchi. Cardiovascular: Regular rate and rhythm with normal S1/S2 without murmurs, rubs or gallops. Abdomen: Soft, non-tender, non-distended with normal bowel sounds. No rebound or guarding. Musculoskeletal: No clubbing, cyanosis or edema bilaterally. Skin: Skin color, texture, turgor normal. No rashes or lesions. Discharge Medications: Attila Del Cid Home Medication Instructions SOURAV:[id number] Printed on:08/22/18 8729 Medication Information amLODIPine (NORVASC) 5 MG tablet Take 5 mg by mouth daily apixaban (ELIQUIS) 5 MG TABS tablet Take by mouth 2 times daily aspirin 81 MG chewable tablet Take 81 mg by mouth daily atorvastatin (LIPITOR) 20 MG tablet Take 20 mg by mouth daily escitalopram (LEXAPRO) 10 MG tablet Take 10 mg by mouth daily gabapentin (NEURONTIN) 300 MG capsule Take 300 mg by mouth 3 times daily.. hydrochlorothiazide (HYDRODIURIL) 25 MG tablet Take 1 tablet by mouth daily lidocaine (LIDODERM) 5 % Place 1 patch onto the skin daily 12 hours on, 12 hours off. lisinopril (PRINIVIL;ZESTRIL) 20 MG tablet Take 20 mg by mouth daily LORazepam (ATIVAN) 0.5 MG tablet Take 1 tablet by mouth every 8 hours as needed for Anxiety for up to 7 days.. meclizine (ANTIVERT) 12.5 MG tablet Take 12.5 mg by mouth 3 times daily as needed nitroglycerin (NITRO-BID) 2 % ointment Place 1 inch onto the skin every 6 hours ondansetron (ZOFRAN) 4 MG tablet Take 1 tablet by mouth every 8 hours as needed for Nausea pantoprazole (PROTONIX) 40 MG tablet Take 40 mg by mouth daily tamsulosin (FLOMAX) 0.4 MG capsule Take 0.4 mg by mouth daily Recommended Follow-up: Wyatt Street MD [address] [place] [address] Schedule an appointment as soon as possible for a visit call for followup appt in one week Complexity of Follow up: [x] Moderate Complexity: follow up within 7-14 calendar days (44758) [x] Severe Complexity: follow up within 7 calendar days (26446) Follow up Testing, Pending results or Referrals at Transitional Care Visit: [x] yes [] no Instructions to MA: Please call patient on day after discharge (must document patient contacted within 2 business days of discharge). Follow up questions for MA: 1. Did you get medications filled and taking them as instructed from discharge? 2. Are you following your discharge instructions from your hospital stay? 3. Please confirm patient is scheduled for a follow up appointment within the above time frame. Signed: Carlo Malik MD Division of Hospitalist Medicine Inpatient Medical Services 08/22/2018, 6:49 PM Time Spent on discharge exceeded 35 minutes discussing plan of care and discharge medications with patient and nursing staff HEMOGRAM W/ AUTODIFF Collected: 08/17/2018 Status: F Source: [employer] 5:30 AM SYSTEM REPOSITORY TYPE CODE TESTS RESULT OUT OF REFERENCE UNITS RANGE LAB IWBC 3.6-10.7 10*3/uL WBC Normal 5.2 LAB RBC 4.40-5.90 10*6/uL RBC Normal 5.20 LAB HGB 13.0-18.0 g/dL Hemoglobin Normal 13.2 LAB HCT 40.0-52.0 % Hematocrit Normal 40.8 LAB MCV 80.0-98.0 fL Low MCV 78.4 LAB MCH 26.0-34.0 pg Low MCH 25.3 LAB MCHC 32.0-36.0 % MCHC Normal 32.2 LAB RDW 11.5-14.5 % RDW High 16.6 LAB PLT 140-440 10*3/uL Platelet Normal 263 LAB MPV 7.4-10.4 fL MPV Normal 7.7 LAB GRAN% 40.0-80.0 % Granulocytes Normal 55.5 LAB LYMP% 20.0-40.0 % Lymphocytes Normal 30.7 LAB MONO% 2.0-10.0 % Monocytes High 10.6 LAB EOS% 1.0-6.0 % Eosinophils Normal 2.3 LAB BAS% 0.0-2.0 % Basophils Normal 0.9 LAB ANC 1.8-7.0 10*3/uL Abs Normal Neutrophile Cnt 2.9 LAB ALC 1.0-4.3 10*3/uL Abs Lymph Cnt Normal 1.6 LAB AMC 0.0-0.8 10*3/uL Abs Monocyte Normal Cnt 0.5 LAB AEC 0.0-0.5 10*3/uL Abs Eosin Cnt Normal 0.1 LAB ABC 0.0-0.2 10*3/uL Abs Baso Cnt Normal 0.0 Performed By: #### HEMDF, BMP3M #### [facility] [address] [place] [address] BASIC METABOLIC PANEL Collected: 08/17/2018 Status: F Source: [employer] 5:30 AM SYSTEM REPOSITORY TYPE CODE TESTS RESULT OUT OF RANGE REFERENCE UNITS LAB NA3 137-145 mmol/L Sodium Normal 138 LAB K3 3.5-5.1 mmol/L Normal Potassium 4.0 LAB CL3 98-107 mmol/L Chloride Normal 106 LAB CO23 22-30 mmol/L Carbon Normal Dioxide 24 LAB ANIN3 NA Anion Gap 8 LAB GLUC3 70-100 mg/dL High Glucose 105 LAB BUN3 7-20 mg/dL Urea Normal Nitrogen 12 LAB CRET3 0.52-1.25 mg/dL Normal Creatinine 0.73 LAB GF3BR >60 mL/min eGFR > 60.0 LAB GF3WR >60 mL/min eGFR OTHER > 60.0 Result Comment: Source- MDRD equation with creatinine calibration to IDMS(NKDEP) eGFR not recommended for drug dose adjustment LAB CA3 8.4-10.4 mg/dL Normal Calcium 9.3 Performed By: #### HEMDF, BMP3M #### [employer] [address] [place] [address] CTA CHEST W/ + W/O Observed: 08/16/2018 Status: F Source: [employer] CONTRAST 4:40 PM SYSTEM REPOSITORY Patient Name: ATTILA DEL CID CT Exam Date/Time 08/16/2018 15:24:56 EDT Exam CTA Chest w/ + w/o Contrast Ordering Physician MD RAKESH, CARLO Oneal Accession Number [id number] CPT4 Codes 11526 (), Q9967 (CT ISOVUE 370MG/[id number]) Reason For Exam Pain between the shoulder blades, h/o aortic aneurysm Report CLINICAL INFORMATION: Progressive chest and back pain. Evaluate for thoracic aortic aneurysm. After 75 mL Isovue IV contrast, 1 mm axial cuts through the chest are obtained. 3D reconstructions are performed by ok and reviewed simultaneously on the separate [employer] workstation. Sagittal and coronal reconstructions are also reviewed. The examination is compared to a previous study dated 06/21/2018. FINDINGS: A good contrast bolus is identified within the thoracic aorta. There is mild fusiform aneurysmal dilatation of the proximal ascending thoracic aorta. This measures up to 4.8 cm in greatest diameter. The aortic arch is normal in caliber. The left vertebral artery arises directly from the aortic arch. This is a normal variant. No pulmonary emboli are appreciated. The heart size is normal. There is no significant mediastinal lymphadenopathy. The lungs are clear. Upper cuts of the abdomen included on the examination are grossly normal. IMPRESSION: 1. Very mild aneurysmal dilatation of the ascending aorta. This is unchanged from prior imaging. 2. No infiltrate or effusion. Report Dictated on Final Dictating Physician: MD COOPER JEFFREY Signed Date and Time: 08/16/2018 4:43 pm Signed by: MD COOPER JEFFREY Transcribed Date and Time: 08/16/2018 4:44 HEMOGRAM Collected: 08/16/2018 Status: F Source: [employer] 3:38 AM SYSTEM REPOSITORY TYPE CODE TESTS RESULT OUT OF RANGE REFERENCE UNITS LAB IWBC 3.6-10.7 10*3/uL WBC Normal 5.3 LAB RBC 4.40-5.90 10*6/uL RBC Normal 4.96 LAB HGB 13.0-18.0 g/dL Low Hemoglobin 12.8 LAB HCT 40.0-52.0 % Low Hematocrit 38.6 LAB MCV 80.0-98.0 fL Low MCV 77.9 LAB MCH 26.0-34.0 pg Low MCH 25.8 LAB MCHC 32.0-36.0 % MCHC Normal 33.1 LAB RDW 11.5-14.5 % High RDW 16.3 LAB PLT 140-440 10*3/uL Platelet Normal 274 LAB MPV 7.4-10.4 fL MPV Normal 7.7 Performed By: #### HEMOG, DDI2, PT, APTT, BMP3M, MG3, LIPD2, TROPN #### [employer] [facility] [address] [place] [address] D-DIMER, INNOVANCE Collected: 08/16/2018 Status: F Source: [employer] 3:38 AM SYSTEM REPOSITORY TYPE CODE TESTS RESULT OUT OF RANGE REFERENCE UNITS LAB 2DDI 0.00-0.50 mg/L Normal D-Dimer, 0.40 [employer] Result Comment: [employer] D-Dimer values of <0.50 mg/L FEU can be used in combination with a pre-test probability model (e.g. Well's) to exclude pulmonary embolism (PE) disease, as well as an aid in the diagnosis of deep vein thrombosis (DVT). Performed By: #### HEMOG, DDI2, PT, APTT, BMP3M, MG3, LIPD2, TROPN #### [facility] [address] [place] [address] PROTHROMBIN TIME Collected: 08/16/2018 Status: F Source: [employer] 3:38 AM SYSTEM REPOSITORY TYPE CODE TESTS RESULT OUT OF REFERENCE UNITS RANGE LAB PROTM 9.0-12.0 s Prothrombin Normal Time 10.0 Result Comment: . LAB INR 0.9-1.1 NA Normal INR 1.0 Result Comment: Recommended Anticoagulant Therapy: SEE BELOW ----- INR of 2.0 - 3.0 : - Prophylaxis of Venous Thrombosis (high-risk surgery) - Treatment of Venous Thrombosis - Treatment of Pulmonary Embolism (Includes tissue heart valves, Acute Myocardial Infarction to prevent systemic embolism, Valvular Heart Disease, and Atrial Fibrillation) ----- INR of 2.5 - 3.5 : - Mechanical Prosthetic Valves (high risk) - If oral anticoagulant therapy is used to prevent Myocardial Infarction Performed By: #### HEMOG, DDI2, PT, APTT, BMP3M, MG3, LIPD2, TROPN #### [facility] [address] [place] [address] APTT Collected: 08/16/2018 Status: F Source: [employer] 3:38 AM SYSTEM REPOSITORY TYPE CODE TESTS RESULT OUT OF RANGE REFERENCE UNITS LAB PTTA 20.0-30.5 s Normal APTT 23.5 Result Comment: NOTE: The therapeutic time for Heparin anticoagulation, based on Xa activity inhibition, is an APTT of 46-80 seconds. Performed By: #### HEMOG, DDI2, PT, APTT, BMP3M, MG3, LIPD2, TROPN #### [facility] [address] [place] [address] BASIC METABOLIC PANEL Collected: 08/16/2018 Status: F Source: [employer] 3:38 AM SYSTEM REPOSITORY TYPE CODE TESTS RESULT OUT OF RANGE REFERENCE UNITS LAB NA3 137-145 mmol/L Sodium Normal 137 LAB K3 3.5-5.1 mmol/L Normal Potassium 3.6 LAB CL3 98-107 mmol/L High Chloride 108 LAB CO23 22-30 mmol/L Carbon Normal Dioxide 25 LAB ANIN3 NA Anion Gap 4 LAB GLUC3 70-100 mg/dL Glucose Normal 95 LAB BUN3 7-20 mg/dL Urea Normal Nitrogen 20 LAB CRET3 0.52-1.25 mg/dL Normal Creatinine 0.72 LAB GF3BR >60 mL/min eGFR > 60.0 LAB GF3WR >60 mL/min eGFR OTHER > 60.0 Result Comment: Source- MDRD equation with creatinine calibration to IDMS(NKDEP) eGFR not recommended for drug dose adjustment LAB CA3 8.4-10.4 mg/dL Normal Calcium 8.8 Performed By: #### HEMOG, DDI2, PT, APTT, BMP3M, MG3, LIPD2, TROPN #### [facility] [address] [place] [address] MAGNESIUM Collected: 08/16/2018 Status: F Source: [employer] 3:38 AM SYSTEM REPOSITORY TYPE CODE TESTS RESULT OUT OF RANGE REFERENCE UNITS LAB MG3 1.6-2.3 mg/dL Normal Magnesium 2.1 Performed By: #### HEMOG, DDI2, PT, APTT, BMP3M, MG3, LIPD2, TROPN #### [facility] [address] [place] [address] LIPID PANEL Collected: 08/16/2018 Status: F Source: [employer] 3:38 AM SYSTEM REPOSITORY TYPE CODE TESTS RESULT OUT OF RANGE REFERENCE UNITS LAB 3CHOL < 200 mg/dL Normal Cholesterol 169 LAB 3TRIG <150 mg/dL Abnormal Triglyceride 207 LAB HDLC 40-60 mg/dL Low HDL Cholesterol 27 LAB LDL4 <100 mg/dL Low Density Abnormal Lipoprotein 101 LAB CHLHD NA Chol/HDL 6 Result Comment: Ref Range: < 3 Low Risk for CHD 3-6 Mod Risk for CHD > 6 High Risk for CHD Performed By: #### HEMOG, DDI2, PT, APTT, BMP3M, MG3, LIPD2, TROPN #### [facility] [address] [place] [address] TROPONIN I Collected: 08/16/2018 Status: F Source: [employer] 3:38 AM SYSTEM REPOSITORY TYPE CODE TESTS RESULT OUT OF RANGE REFERENCE UNITS LAB TROP4 0.000-0.034 ng/mL Normal Troponin I < 0.012 Result Comment: 0.046 - 0.400 = Indeterminate > 0.400 = Consider Myocardial Injury Performed By: #### HEMOG, DDI2, PT, APTT, BMP3M, MG3, LIPD2, TROPN #### [facility] [address] [place] [address] TROPONIN I Collected: 08/16/2018 Status: F Source: [employer] 3:38 AM SYSTEM REPOSITORY TYPE CODE TESTS RESULT OUT OF RANGE REFERENCE UNITS LAB TROP4 0.000-0.034 ng/mL Normal Troponin I < 0.012 Result Comment: 0.046 - 0.400 = Indeterminate > 0.400 = Consider Myocardial Injury Performed By: #### TROPN #### [facility] [address] [place] [address] TROPONIN I Collected: 08/16/2018 Status: F Source: [employer] 1:22 AM SYSTEM REPOSITORY TYPE CODE TESTS RESULT OUT OF RANGE REFERENCE UNITS LAB TROP4 0.000-0.034 ng/mL Normal Troponin I < 0.012 Result Comment: 0.046 - 0.400 = Indeterminate > 0.400 = Consider Myocardial Injury Performed By: #### TROPN #### [facility] [address] [place] [address] CT ABDOMEN/PELVIS W/O Observed: 08/15/2018 Status: F Source: [employer] CONTRAST 9:54 PM SYSTEM REPOSITORY Patient Name: ATTILA DEL CID CT Exam Date/Time 08/15/2018 21:46:[address] Abdomen/Pelvis (No PO, No IV) Ordering Physician MD EMELY, [facility] Accession Number [id number] CPT4 Codes 16571 (CT Abdomen/Pelvis (No PO, No IV)) Reason For Exam right flank pain Report CT ABDOMEN AND PELVIS WITHOUT CONTRAST CLINICAL INDICATION: right flank pain TECHNIQUE: CT scan of the abdomen and pelvis without IV/oral contrast. Multiplanar reformations. COMPARISON: 06/21/2018 FINDINGS: Solid organ evaluation limited from lack of IV contrast. Lung bases are clear. No free intraperitoneal gas seen. Liver shows no significant abnormality. Gallbladder and biliary tree appear normal. Spleen shows no significant abnormality. Adrenal glands show no significant abnormality. Several tiny bilateral renal calculi. No hydronephrosis or perinephric stranding. Pancreas shows no significant abnormality. Abdominal aorta is nonaneurysmal. The appendix appears normal. Status post lumbar surgery. No ureteral calculus seen on either side. Large amount of gastric content noted, correlate for recent meal. Small fat-containing inguinal hernia on either side. IMPRESSION: 1. Several tiny bilateral renal calculi. No hydronephrosis or ureteral calculus. 2. Large amount of gastric content which may be related to a recent meal, correlate with history. Report Dictated on Final Dictating Physician: MD FAGAN JOHN R Signed Date and Time: 08/15/2018 9:59 pm Signed by: MD FAGAN JOHN R Transcribed Date and Time: 08/15/2018 10:00 CR CHEST PA/LAT Observed: 08/15/2018 Status: F Source: [employer] 9:28 PM SYSTEM REPOSITORY Patient Name: ATTILA DEL CID Diagnostic Radiology Exam Date/Time 08/15/2018 21:22:30 EDT Exam CR Chest PA/LAT Ordering Physician MD EMELY [facility] Accession Number [id number] CPT4 Codes 25494 () Reason For Exam b/l posterior rib pain Report EXAM TYPE: EXAM TYPE: RADIOLOGIC EXAMINATION, CHEST, 2 VIEWS, FRONTAL AND LATERAL (CXR 2 Views) EXAM DATE AND TIME: 08/15/2018 9:22 PM EDT INDICATION: Posterior rib pain COMPARISON: Chest radiograph on 06/21/2018 TECHNIQUE: Frontal and lateral views of the thorax were obtained and reviewed. Special views: None. FINDINGS: 1. Lungs: No consolidation or pulmonary edema. 2. Pleura: No pneumothorax or pleural effusions. 3. Heart and mediastinum: Normal cardiomediastinal contours. 4. Osseous structures: Thoracic spondylosis. IMPRESSION: No consolidation, edema or effusion. Report Dictated on Final Dictating Physician: MD PENG NEIL Signed Date and Time: 08/15/2018 9:29 pm Signed by: MD PENG NEIL Transcribed Date and Time: 08/15/2018 9:30 HEMOGRAM W/ AUTODIFF Collected: 08/15/2018 Status: F Source: [employer] 9:25 PM SYSTEM REPOSITORY TYPE CODE TESTS RESULT OUT OF REFERENCE UNITS RANGE LAB IWBC 3.6-10.7 10*3/uL WBC Normal 7.3 LAB RBC 4.40-5.90 10*6/uL RBC Normal 5.55 LAB HGB 13.0-18.0 g/dL Hemoglobin Normal 14.1 LAB HCT 40.0-52.0 % Hematocrit Normal 43.9 LAB MCV 80.0-98.0 fL Low MCV 79.1 LAB MCH 26.0-34.0 pg Low MCH 25.4 LAB MCHC 32.0-36.0 % MCHC Normal 32.1 LAB RDW 11.5-14.5 % RDW High 16.6 LAB PLT 140-440 10*3/uL Platelet Normal 325 LAB MPV 7.4-10.4 fL Low MPV 7.1 LAB GRAN% 40.0-80.0 % Granulocytes Normal 58.8 LAB LYMP% 20.0-40.0 % Lymphocytes Normal 32.9 LAB MONO% 2.0-10.0 % Monocytes Normal 6.2 LAB EOS% 1.0-6.0 % Eosinophils Normal 1.4 LAB BAS% 0.0-2.0 % Basophils Normal 0.7 LAB ANC 1.8-7.0 10*3/uL Abs Normal Neutrophile Cnt 4.3 LAB ALC 1.0-4.3 10*3/uL Abs Lymph Cnt Normal 2.4 LAB AMC 0.0-0.8 10*3/uL Abs Monocyte Normal Cnt 0.5 LAB AEC 0.0-0.5 10*3/uL Abs Eosin Cnt Normal 0.1 LAB ABC 0.0-0.2 10*3/uL Abs Baso Cnt Normal 0.1 Performed By: #### HEMDF, BMP3, LFT3, LIPA4, TROPN #### [facility] [employer] [facility] [address] [place] [address] BASIC METABOLIC PANEL Collected: 08/15/2018 Status: F Source: [facility] [employer] 9:25 PM SYSTEM REPOSITORY TYPE CODE TESTS RESULT OUT OF RANGE REFERENCE UNITS LAB NA3 137-145 mmol/L Sodium Normal 144 LAB K3 3.5-5.1 mmol/L Low Potassium 3.4 LAB CL3 98-107 mmol/L High Chloride 108 LAB CO23 22-30 mmol/L Carbon Normal Dioxide 24 LAB ANIN3 NA Anion Gap 11 LAB GLUC3 70-100 mg/dL High Glucose 108 LAB BUN3 7-20 mg/dL Urea Normal Nitrogen 16 LAB CRET3 0.52-1.25 mg/dL Normal Creatinine 0.84 LAB GF3BR >60 mL/min eGFR > 60.0 LAB GF3WR >60 mL/min eGFR OTHER > 60.0 Result Comment: Source- MDRD equation with creatinine calibration to IDMS(NKDEP) eGFR not recommended for drug dose adjustment LAB CA3 8.4-10.4 mg/dL Normal Calcium 9.6 Performed By: #### HEMDF, BMP3, LFT3, LIPA4, TROPN #### [facility] [employer] [facility] [address] [place] [address] HEPATIC FUNCTION Collected: 08/15/2018 Status: F Source: [employer] 9:25 PM SYSTEM REPOSITORY TYPE CODE TESTS RESULT OUT OF RANGE REFERENCE UNITS LAB ALB3 3.5-5.0 g/dL Albumin, Normal Serum 4.5 LAB TP3 6.3-8.2 g/dL Total Normal Protein 7.5 LAB BILT3 0.2-1.3 mg/dL Normal Bilirubin,Total 0.7 LAB BILD3 0.0-0.3 mg/dL Normal Bilirubin,Direct 0.0 LAB ALKP3 38-126 U/L Alkaline Normal Phosphatase 82 LAB ALT3 13-69 U/L ALT (SGPT) Normal 44 LAB AST3 15-46 U/L AST (SGOT) Normal 25 Performed By: #### HEMDF, BMP3, LFT3, LIPA4, TROPN #### [facility] [employer] [facility] [address] [place] [address] LIPASE Collected: 08/15/2018 Status: F Source: [employer] 9:25 PM SYSTEM REPOSITORY TYPE CODE TESTS RESULT OUT OF RANGE REFERENCE UNITS LAB LIPA4 23-300 U/L Normal Lipase 87 Performed By: #### HEMDF, BMP3, LFT3, LIPA4, TROPN #### [employer] [facility] [address] [place] [address] TROPONIN I Collected: 08/15/2018 Status: F Source: [employer] 9:25 PM SYSTEM REPOSITORY TYPE CODE TESTS RESULT OUT OF RANGE REFERENCE UNITS LAB TROP4 0.000-0.034 ng/mL Normal Troponin I < 0.012 Result Comment: 0.046 - 0.400 = Indeterminate > 0.400 = Consider Myocardial Injury Performed By: #### HEMDF, BMP3, LFT3, LIPA4, TROPN #### [facility] [employer] [facility] [address] [place] [address] URINALYSIS,MACRO Collected: 08/15/2018 Status: F Source: [employer] 9:25 PM SYSTEM REPOSITORY TYPE CODE TESTS RESULT OUT OF REFERENCE UNITS RANGE LAB APPUR Clear NA Appearance CLEAR LAB COLUR Lt. Yellow NA Color YELLOW LAB USG 1.005-1.030 NA Specific Normal [place],Urine 1.010 LAB UPH 5.0-8.0 NA pH,Urine Normal 7.0 LAB ULUK Negative NA Leukocytes NEGATIVE LAB UNIT Negative NA Nitrites NEGATIVE LAB UPRO Negative mg/dL Total Protein,Urine NEGATIVE LAB UGLU Negative mg/dL Glucose,Urine NEGATIVE LAB UKET Negative mg/dL Ketone,Urine TRACE LAB UURO 0-1 mg/dL Urobilinogen 0.2 LAB UBIL Negative NA Bilirubin,Ur NEGATIVE LAB UBLD Negative {RBC}/uL Occult Blood,Ur NEGATIVE Performed By: #### UAMAC #### [facility] [employer] [address] [place] [address] DRUGS OF ABUSE Collected: 08/15/2018 Status: F Source: [employer] 9:25 PM SYSTEM REPOSITORY TYPE CODE TESTS RESULT OUT OF REFERENCE UNITS RANGE LAB AMP3 NA Amphetamines, Ur Negative LAB BARB3 NA Barbiturates, Ur Negative LAB BENZ3 NA Benzodiazepines, Negative Ur LAB COC3 NA Cocaine, Ur Negative LAB METH3 NA Methadone, Ur Negative LAB OPI3 NA Opiates, Ur Negative LAB OXY3 NA Oxycodone/Oxymorph Negative ine,Ur LAB PCP3 NA Phencyclidine (PCP), Ur Negative Result Comment: The expected value for all of the drugs listed above is Negative. The following drugs or drug groups have been screened for by Immunoassay at the following thresholds: Amphetamine class (1000 ng/mL), Barbiturates (200 ng/mL), Benzodiazepines (200 ng/mL), Cocaine (300 ng/mL), Methadone (300 ng/mL), Opiates (300 ng/mL), Oxycodone (100 ng/mL), and PCP (25 ng/mL). NOTE: These results are for medical treatment only. Analysis performed using non-forensic procedures. POSITIVE results are NOT confirmed by a more specific alternative method unless requested. If confirmation is needed, request confirmation under separate order. Performed By: #### [email or web address] #### [facility] [address] [place] [address] XR CHEST 1 VIEW Observed: 08/15/2018 Status: F Source: [facility] 4:49 PM [facility] REPOSITORY ORIGINAL XR CHEST 1 VIEW CLINICAL STATEMENT: chest pain COMPARISON: 08/09/2018 chest x-ray FINDINGS: The cardiomediastinal contours are unchanged. There is no consolidation, pleural effusion, or pneumothorax. There is very mild vascular congestion, not significantly changed. There are no acut e abnormalities to osseous structures. There are overlying chest leads. There is mild eventration of the RIGHT hemidiaphragm, unchanged. IMPRESSION: No acute cardiopulmonary findings. I have personally reviewed the images of this examination and agree with the resident's findings and interpretation. Interpreted By: Brody Das DO Preliminary Report By: Shama Morris DO Electronically Signed By: Brody Das DO Dictated Date: 08/15/2018 4:50:49 PM Prelim Date: 08/15/2018 4:53:34 PM Sign Date: 08/15/2018 5:30:08 PM CBC Collected: 08/15/2018 Status: F Source: [facility] 4:32 PM [facility] REPOSITORY TYPE CODE TESTS RESULT OUT OF REFERENCE UNITS RANGE LAB WBC(LOINC) 4.60-10.80 10 3/mcL WBC 8.70 LAB RBCCT(LOINC 4.04-6.13 10 6/mcL ) RBC 5.53 LAB HGB(LOINC) 14.0-18.0 G/dL Hgb 14.0 LAB HCT(LOINC) 42.0-52.0 % Hct 43.2 LAB MCV(LOINC) 80.0-94.0 fL Low MCV 78.2 LAB MCH(LOINC) 27.0-31.2 pg Low MCH 25.3 LAB MCHC(LOINC) 31.8-35.4 G/dL MCHC 32.4 LAB RDW(LOINC) 11.5-14.5 % High RDW 16.4 LAB PLT(LOINC) 130-400 10 3/mcL Platelet 352 LAB MPV(LOINC) 7.4-10.4 fL Low MPV 7.2 Performed By: #### CBCRADHA ANEU #### [place] [address] #### BMP, TROP, GFR #### [place] [id number] [employer] DIFF Collected: 08/15/2018 Status: F Source: [facility] 4:32 PM [facility] REPOSITORY TYPE CODE TESTS RESULT OUT OF REFERENCE UNITS RANGE LAB PAZ(LOINC) 37.0-80.0 % Neutrophil % 62.1 LAB LYM(LOINC) 10.0-50.0 % Lymphocyte % 27.3 LAB MON(LOINC) 1.7-13.0 % Monocyte % 9.1 LAB EO(LOINC) 0.0-7.0 % Eosinophil % 0.8 LAB BAS(LOINC) 0.0-2.5 % Basophil % 0.7 LAB ABLYM(LOIN 0.77-3.85 10 3/mcL C) Lymphocyte, 2.40 Absolute LAB REJI(LOINC 0.15-1.00 10 3/mcL ) Monocyte, 0.80 Absolute LAB AEOS(LOINC 0.00-0.40 10 3/mcL ) Eosinophil, 0.10 Absolute LAB ABAS(LOINC 0.00-0.19 10 3/mcL ) Basophil, 0.10 Absolute Performed By: #### CBC, ADIFF, ANEU #### [place] [address] #### BMP, TROP, GFR #### [place] [address] .NEUABS Collected: 08/15/2018 Status: F Source: [facility] 4:32 PM [facility] REPOSITORY TYPE CODE TESTS RESULT OUT OF REFERENCE UNITS RANGE LAB ANEU(LOINC) 2.85-6.16 10 3/mcL Neutrophil, 5.40 Absolute Performed By: #### CBC, ADIFF, ANEU #### [place] [address] #### BMP, TROP, GFR #### [place] [address] BMP Collected: 08/15/2018 Status: F Source: [facility] 4:32 [facility] REPOSITORY TYPE CODE TESTS RESULT OUT OF REFERENCE UNITS RANGE LAB GLU(LOINC) 70-105 mg/dL Glucose Level 85 LAB NA(LOINC) 136-145 mmol/L Sodium Level 139 LAB K(LOINC) 3.5-5.1 mmol/L Potassium Level 3.7 LAB CL(LOINC) 98-107 mmol/L Chloride 105 LAB CO2(LOINC) 22-29 mmol/L CO2 23 LAB EBAL(LOINC mEq/L ) Electrolyte Balance 11.0 LAB BUN(LOINC) 7-18 mg/dL BUN 17 LAB CRE(LOINC) 0.70-1.30 mg/dL Creatinine Lvl (s) 0.84 LAB BC(LOINC) 7-27 ratio BUN/Creatinine 20 Ratio LAB CA(LOINC) 8.4-10.2 mg/dL Calcium Lvl 9.8 Performed By: #### CBC, ADIFF, ANEU #### [place] [id number] [place], [place] [address] #### BMP, TROP, GFR #### [address] [address] TROP Collected: 08/15/2018 Status: F Source: [employer] 4:32 PM [facility] REPOSITORY TYPE CODE TESTS RESULT OUT OF REFERENCE UNITS RANGE LAB TROP(LOINC) 0.000-0.040 ng/mL Troponin <0.020 Result Comment: Troponin I reference range: 0.00-0.040 ng/mL Negative and non-diagnostic. >0.040 ng/mL Consistent with cardiac damage, increased clinical risk and possibility of myocardial infarction. Serial measurements, a rise & fall in test results, clinical history, appropriate symptoms and/or ECG changes may help assess possibility of MA. *Other non-acute coronary syndrome conditions such as CHF, myocarditis, pulmonary emboli, sepsis and cardiac surgery could result in myocardial damage and increased troponin levels. Performed By: #### CBC, ADIFF, ANEU #### [place] [id number] [place], [place] [address] #### BMP, TROP, GFR #### [address] [address] .GFR Collected: 08/15/2018 Status: F Source: [employer] 4:32 PM [facility] REPOSITORY TYPE CODE TESTS RESULT OUT OF REFERENCE UNITS RANGE LAB GFRAA(LOINC ml/min/1.73 ) sqm GFR 118 [place] Result Comment: GFR Population mean for , Non- Americans Ages 20-29 = 116 mL/min/1.73 sq.m. Ages 30-39 = 107 mL/min/1.73 sq.m. Ages 40-49 = 99 mL/min/1.73 sq.m. Ages 50-59 = 93 mL/min/1.73 sq.m. Ages 60-69 = 85 mL/min/1.73 sq.m. Ages 70+ = 75 mL/min/1.73 sq.m. Chronic Kidney Disease: Less than 60 mL/min/1.73 square meters End Stage Renal Disease: Less than 15 mL/min/1.73 square meters LAB GFRNO(LOINC) ml/min/1.73sqm GFR Non- 98 Result Comment: GFR Population mean for , Non- Americans Ages 20-29 = 116 mL/min/1.73 sq.m. Ages 30-39 = 107 mL/min/1.73 sq.m. Ages 40-49 = 99 mL/min/1.73 sq.m. Ages 50-59 = 93 mL/min/1.73 sq.m. Ages 60-69 = 85 mL/min/1.73 sq.m. Ages 70+ = 75 mL/min/1.73 sq.m. Chronic Kidney Disease: Less than 60 mL/min/1.73 square meters End Stage Renal Disease: Less than 15 mL/min/1.73 square meters Performed By: #### CBC, ADIFF, ANEU #### [place] [id number] [place], [place] [address] #### BMP, TROP, GFR #### [address] [address] ED NOTE Observed: 08/11/2018 Status: COMPLETED Source: [facility] 9:50 PM CLINIC OTHER [facility] REPOSITORY HNO ID: [id number] Author: Jonah AminRn) ALE Costa Service: (none) Author Type: Registered Nurse Type: ED Notes Filed: 08/11/2018 10:03 PM Note Text: Discharge inst reviewed with pt, discussed new pain prescription, discussed follow up with pcp and pain management, pt verbalized understanding via teach back method, pt stable upon departure from ED HIGH SENS TROPONIN T Collected: 08/11/2018 Status: F Source: [facility] 7:50 PM CLINIC OTHER [facility]AMP[facility] REPOSITORY TYPE CODE TESTS RESULT OUT OF REFERENCE UNITS RANGE LAB HSTN <12 ng/L High Sensitivity NARGIS <6 Result Comment: When assessing risk for acute coronary syndromes: In patients undergoing blood draw greater than or equal to 2 hours from symptom onset, with history of very low to moderate risk and non-ischemic ECG, an initial hs-Troponin T less than 12 ng/L AND a 1 hour delta hs-Troponin T less than 3 ng/L should be considered very low risk for 30 day MACE. Performed By: #### HSTNT #### [facility] [address] [facility] [phone] ED NOTE Observed: 08/11/2018 Status: COMPLETED Source: [place] 7:46 PM [facility] REPOSITORY HNO ID: [id number] Author: Jonah (Rn) ALE Costa Service: (none) Author Type: Registered Nurse Type: ED Notes Filed: 08/11/2018 7:56 PM Note Text: Pt returned from CT scan complaining that his chest pain has returned at that it is 10. MD notified PROGRESS Observed: 08/11/2018 Status: COMPLETED Source: [place] 7:39 PM [facility] RE[facility] HNO ID: [id number] Author: Sindy AminCt) JOHANA Thao Service: (none) Author Type: Clinical Sociology Adjunct Instructor Type: Progress Notes Filed: 08/11/2018 7:39 PM Note Text: Radiology Service Progress Note PATIENT NAME: Attila Del Cid DATE OF SERVICE: August 11, 2018 TIME: 7:39 PM PATIENT IDENTITY VERIFICATION COMPLETED USING TWO (2) METHODS: Patient confirmed name verbally and ID band matches.. PATIENT GENDER DATA: Male PATIENT RELEVANT IMPLANT DATA REVIEWED: Not Applicable CONTRAST INDUCED NEPHROPATHY RISK FACTORS: Not applicable CREATININE: Creatinine Date Value Ref Range Status 08/11/2018 0.88 0.73 - 1.22 mg/dL Final 08/04/2018 1.13 0.67 - 1.17 mg/dL Final 06/15/2018 0.81 0.73 - 1.22 mg/dL Final eGFR-All Other Races Date Value Ref Range Status 08/11/2018 >60 . Final Comment: eGFR (Estimated GFR) Units of measure: mL/min/1.73 meters squared eGFR is derived from the reexpressed MDRD Study equation using the following parameters: serum creatinine, age, gender and race. The creatinine assay has been calibrated to be traceable to IDMS. An eGFR <60 mL/min/1.73m2 for >3 months is consistent with chronic kidney disease. Refer to KDOQI guidelines for clinical interpretation. In patients with unstable renal function, e.g. those with acute kidney injury, the eGFR may not accurately reflect actual GFR. eGFR- Date Value Ref Range Status 08/11/2018 >60 Final P.O.C.T. RESULTS: POC done: Yes, See Lab Tab August 11, 2018 RADIOLOGIST NOTIFIED?: No ALLERGIES: Reviewed and unchanged CONTRAST ALLERGY: NO. PERIPHERAL IV ACCESS: Inpatient: see LDA documentation RADIOLOGY DEPARTMENT: CT; Exam(s) Completed: Chest and CTA Abdomen Pelvis dissection SIGNED BY: JOHANA Ramos August 11, 2018 7:39 PM CTA ABD/PELV W IVCON Observed: 08/11/2018 Status: F Source: [place] 7:38 PM [facility]IN[facility] OTHER [facility]AMP[facility] REPOSITORY * * *Final Report* * * DATE OF EXAM: Aug 11 2018 7:38PM [facility] [place] 0466 - CTA ABD/PELV W IVCON / PROCEDURE REASON: Chest/back pain, acute, aortic dissection suspected * * * * Physician Interpretation * * * * CTA CHEST, ABDOMEN, AND PELVIS History: Chest/back pain, acute, aortic dissection suspected Comparison: None Technique: CT imaging of the chest, abdomen, and pelvis was performed after the administration of ml of . Axial scans were obtained at 1mm from the level of the apices to the level of the pubic symphysis. Multiplanar reconstruction (MPR) were created on the modality imaging workstation. CT Dose-Length Product (DLP): 1439mGy*cm CT Dose Reduction Employed: Automated exposure control (AEC) Result: Vasculature: The thoracic aorta is tortuous in appearance. There is mild aneurysmal dilatation of the ascending aorta measuring 4.7 cm in width. The aorta at the aortic arch measures 2.6 cm in width. At the diaphragmatic hiatus the thoracic aorta measures 2.2 cm in width. No evidence of dissection. The great vessels appear patent and unremarkable. There is no evidence of abdominal aortic aneurysm or dissection. The celiac, superior mesenteric, renal, inferior mesenteric and iliac arteries appear patent. Mild atherosclerotic calcifications are present involving the abdominal aorta. The suprarenal abdominal aorta measures 2 cm in AP dimension. The infrarenal abdominal aorta measures 1.9 cm in AP dimension. Pulmonary Arteries: Central (Main, Right, Left): No thromboembolic disease Lobar: No thromboembolic disease Segmental: No thromboembolic disease Subsegmental: No thromboembolic disease Mediastinum: Unremarkable. Lung Parenchyma: A few mild linear densities are noted bilaterally which may represent small areas of scarring/atelectasis. Otherwise, the lungs appear clear. Pleura: Unremarkable. Chest Wall: Unremarkable. Liver: There are findings suggestive of fatty infiltration of the liver. Biliary: No bile duct dilation. Spleen: No mass. No splenomegaly. Pancreas: No mass or duct dilation. Fatty atrophy of the pancreas is noted. Adrenals:No mass. Kidneys: No hydronephrosis or renal calculi are identified. GI tract: No dilation or wall thickening. Lymph nodes: No abdominal lymphadenopathy. Mesentery/Peritoneum: No ascites or mass. Retroperitoneum: No mass. Bones/Soft Tissues: Postsurgical changes are noted in the lower lumbar spine. Postsurgical changes are noted the lumbosacral junction. Pedicle screws are noted at L4 and L5 with posterior stabilization hardware. The hardware appears intact. Small bilateral inguinal hernias are noted containing fat. Impression: CTA of the chest: Mild aneurysmal dilatation of the ascending aorta measuring 4.7 cm in width. No evidence of aortic dissection or pulmonary embolism. CTA abdomen and pelvis: No evidence of aortic aneurysm or dissection. No acute findings are identified. 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: [facility] Transcribe Date/Time: Aug 11 2018 8:46P Dictated by : SHAMA COLE MD This examination was interpreted and the report reviewed and electronically signed by: SHAMA COLE MD on Aug 11 2018 9:16PM EST [id number] CTA CHEST (GATED) Observed: 08/11/2018 Status: F Source: [place] WO/W IVCON 7:38 PM CLINIC OTHER CAMPUS REPOSITORY * * *Final Report* * * DATE OF EXAM: Aug 11 2018 7:38PM [facility] [place] 0126 - CTA CHEST (GATED) WO/W IVCON / PROCEDURE REASON: Chest/back pain, acute, aortic dissection suspected * * * * Physician Interpretation * * * * CTA CHEST, ABDOMEN, AND PELVIS History: Chest/back pain, acute, aortic dissection suspected Comparison: None Technique: CT imaging of the chest, abdomen, and pelvis was performed after the administration of ml of . Axial scans were obtained at 1mm from the level of the apices to the level of the pubic symphysis. Multiplanar reconstruction (MPR) were created on the modality imaging workstation. CT Dose-Length Product (DLP): 1439mGy*cm CT Dose Reduction Employed: Automated exposure control (AEC) Result: Vasculature: The thoracic aorta is tortuous in appearance. There is mild aneurysmal dilatation of the ascending aorta measuring 4.7 cm in width. The aorta at the aortic arch measures 2.6 cm in width. At the diaphragmatic hiatus the thoracic aorta measures 2.2 cm in width. No evidence of dissection. The great vessels appear patent and unremarkable. There is no evidence of abdominal aortic aneurysm or dissection. The celiac, superior mesenteric, renal, inferior mesenteric and iliac arteries appear patent. Mild atherosclerotic calcifications are present involving the abdominal aorta. The suprarenal abdominal aorta measures 2 cm in AP dimension. The infrarenal abdominal aorta measures 1.9 cm in AP dimension. Pulmonary Arteries: Central (Main, Right, Left): No thromboembolic disease Lobar: No thromboembolic disease Segmental: No thromboembolic disease Subsegmental: No thromboembolic disease Mediastinum: Unremarkable. Lung Parenchyma: A few mild linear densities are noted bilaterally which may represent small areas of scarring/atelectasis. Otherwise, the lungs appear clear. Pleura: Unremarkable. Chest Wall: Unremarkable. Liver: There are findings suggestive of fatty infiltration of the liver. Biliary: No bile duct dilation. Spleen: No mass. No splenomegaly. Pancreas: No mass or duct dilation. Fatty atrophy of the pancreas is noted. Adrenals:No mass. Kidneys: No hydronephrosis or renal calculi are identified. GI tract: No dilation or wall thickening. Lymph nodes: No abdominal lymphadenopathy. Mesentery/Peritoneum: No ascites or mass. Retroperitoneum: No mass. Bones/Soft Tissues: Postsurgical changes are noted in the lower lumbar spine. Postsurgical changes are noted the lumbosacral junction. Pedicle screws are noted at L4 and L5 with posterior stabilization hardware. The hardware appears intact. Small bilateral inguinal hernias are noted containing fat. Impression: CTA of the chest: Mild aneurysmal dilatation of the ascending aorta measuring 4.7 cm in width. No evidence of aortic dissection or pulmonary embolism. CTA abdomen and pelvis: No evidence of aortic aneurysm or dissection. No acute findings are identified. 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: [employer] Transcribe Date/Time: Aug 11 2018 8:46P Dictated by : SHAMA COLE MD This examination was interpreted and the report reviewed and electronically signed by: SHAMA COLE MD on Aug 11 2018 9:16PM EST [id number] ED NOTE Observed: 08/11/2018 Status: COMPLETED Source: [place] 6:30 PM [facility] REPOSITORY HNO ID: [id number] Author: Dominga (Rn) Dayanna RN Service: (none) Author Type: Registered Nurse Type: ED Notes Filed: 08/11/2018 6:31 PM Note Text: Plan of care -Monitor Patient's Vital Signs for changes in condition -Monitor patient for changes in pain -Maintain patient safety and privacy -Provide comfort measures -Call light in place Siderails up, bed in locked and low position ED NOTE Observed: 08/11/2018 Status: COMPLETED Source: [place] 6:30 PM [facility] REPOSITORY HNO ID: [id number] Author: Dominga AminRn) Dayanna RN Service: (none) Author Type: Registered Nurse Type: ED Notes Filed: 08/11/2018 6:30 PM Note Text: Labs were drawn and sent. CBC AND DIFFERENTIAL Collected: 08/11/2018 Status: F Source: [place] 6:30 PM [facility] REPOSITORY TYPE CODE TESTS RESULT OUT OF REFERENCE UNITS RANGE LAB WBC 3.70-11.00 k/uL WBC 6.71 LAB RBC 4.20-6.00 m/uL RBC 5.06 LAB HGB 13.0-17.0 g/dL Hemoglobin 13.1 LAB HCT 39.0-51.0 % Hematocrit 41.1 LAB MCV 80.0-100.0 fL MCV 81.2 LAB MCH 26.0-34.0 pG Low MCH 25.9 LAB MCHC 30.5-36.0 g/dL MCHC 31.9 LAB RDWCV 11.5-15.0 % RDW-CV High 15.2 LAB PLTCT 150-400 k/uL Platelet Count 263 LAB MPV 9.0-12.7 fL MPV 9.3 LAB ANEUT % Neut% 63.2 LAB AANEUT 1.45-7.50 k/uL Abs Neut 4.23 LAB ALYMP % Lymph% 23.8 LAB AALYMP 1.00-4.00 k/uL Abs Lymph 1.60 LAB AMONO % [place]% 10.4 LAB AAMONO <0.87 k/uL Abs [place] 0.70 LAB AEOS % Eosin% 2.2 LAB AAEOS <0.46 k/uL Abs Eosin 0.15 LAB ABASO % Baso% 0.4 LAB AABASO <0.11 k/uL Abs Baso 0.03 Performed By: #### CBCDIF, CMP #### [facility] [address] [facility] [phone] COMP METABOLIC PANEL Collected: 08/11/2018 Status: F Source: [place] 6:30 PM CLINIC OTHER CAMPUS REPOSITORY TYPE CODE TESTS RESULT OUT OF REFERENCE UNITS RANGE LAB TP 6.3-8.0 g/dL Protein, Total 6.7 LAB ALB 3.9-4.9 g/dL Albumin 4.1 LAB CA 8.5-10.2 mg/dL Calcium, Total 9.4 LAB TBIL 0.2-1.3 mg/dL Bilirubin, Total 0.2 LAB ALKP 38-113 U/L Alkaline Phosphatase 94 LAB AST 14-40 U/L AST 32 LAB GLU 74-99 mg/dL Glucose 94 Result Comment: The [place] [employer] (ADA) provides guidance for cutoff values for fasting glucose and random glucose. The ADA defines fasting as no caloric intake for at least 8 hours. Fas ting plasma glucose results between 100 to 125 mg/dL indicate increased risk for diabetes (prediabetes). Fasting plasma glucose results greater than or equal to 126 mg/dL meet the criteria for diagnosis of diabetes. In the absence of unequivocal hyperglycemia, results should be confirmed by repeat testing. In a patient with classic symptoms of hyperglycemia or hyperglycemic crisis, random plasma glucose results greater than or equal to 200 mg/dL meet the criteria for diagnosis of diabetes. Reference: Standards of Medical Care in Diabetes 2016, [place] [employer] Association. Diabetes Care. 2016.39(Suppl 1). LAB BUN 9-24 mg/dL BUN 12 LAB CRET 0.73-1.22 mg/dL Creatinine 0.88 LAB NA 136-144 mmol/L Sodium 142 LAB K 3.7-5.1 mmol/L Potassium 3.7 LAB CL 97-105 mmol/L Chloride 104 LAB CO2 22-30 mmol/L CO2 26 LAB AGAP 9-18 mmol/L Anion Gap 12 LAB ALT 10-54 U/L ALT 35 LAB GFRAA eGFR- Amer. >60 LAB GFRNAA . eGFR-All Other Races >60 Result Comment: eGFR (Estimated GFR) Units of measure: mL/min/1.73 meters squared eGFR is derived from the reexpressed MDRD Study equation using the following parameters: serum creatinine, age, gender and race. The creatinine assay has been calibrated to be traceable to IDMS. An eGFR <60 mL/min/1.73m2 for >3 months is consistent with chronic kidney disease. Refer to KDOQI guidelines for clinical interpretation. In patients with unstable renal function, e.g. those with acute kidney injury, the eGFR may not accurately reflect actual GFR. Performed By: #### CBCDIF, CMP #### [facility] [address] [place] [address] CK, TOTAL AND CKMB Collected: 08/11/2018 Status: F Source: [place] 6:30 PM CLINIC OTHER CAMPUS REPOSITORY TYPE CODE TESTS RESULT OUT OF REFERENCE UNITS RANGE LAB CK 51-298 U/L 88 CK LAB MB <7.7 ng/mL MB 1.3 LAB CKMBRI 0.0-4.0 % CK CK MB MB % not % reported with CK <100 U/L. Performed By: #### CKCKMB #### [facility] [address] [place] [phone] HIGH SENS TROPONIN T Collected: 08/11/2018 Status: F Source: [place] 6:30 PM [facility] OTHER CAMPUS REPOSITORY TYPE CODE TESTS RESULT OUT OF REFERENCE UNITS RANGE LAB HSTN <12 ng/L High Sensitivity NARGIS <6 Result Comment: When assessing risk for acute coronary syndromes: In patients undergoing blood draw greater than or equal to 2 hours from symptom onset, with history of very low to moderate risk and non-ischemic ECG, an initial hs-Troponin T less than 12 ng/L AND a 1 hour delta hs-Troponin T less than 3 ng/L should be considered very low risk for 30 day MACE. Performed By: #### HSTNT #### [facility] [address] [place] [address] XR CHEST 2V FRONTAL/LAT Observed: 08/11/2018 Status: F Source: [place] 6:19 PM CLINIC OTHER [facility]AMP[facility] REPOSITORY * * *Final Report* * * DATE OF EXAM: Aug 11 2018 6:19PM MDX [id number] - XR CHEST 2V FRONTAL/LAT / PROCEDURE REASON: Chest pain, acute, nonspecific, low prob CAD * * * * Physician Interpretation * * * * EXAMINATION: CHEST RADIOGRAPH (2 VIEW FRONTAL and LATERAL) CLINICAL HISTORY: Chest pain, acute, nonspecific, low prob CAD, MQ: XC2_5 Comparison: 06/09/2016 RESULT: Lines, tubes, and devices: None. Lungs and pleura: No consolidation. No lung mass. No pleural effusion. Cardiomediastinal silhouette: Normal cardiomediastinal silhouette. Other: . IMPRESSION: No acute radiographic abnormality. 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: [employer] Transcribe Date/Time: Aug 11 2018 6:27P Dictated by : RADHA MITCHELL MD This examination was interpreted and the report reviewed and electronically signed by: RADHA MITCHELL MD on Aug 11 2018 6:28PM EST [id number] ED NOTE Observed: 08/11/2018 Status: COMPLETED Source: [place] 6:16 PM [facility] REPOSITORY HNO ID: [id number] Author: Berenice (Rn) ALE Pederson Service: (none) Author Type: Registered Nurse Type: ED Notes Filed: 08/11/2018 6:17 PM Note Text: Pt to radiology per the wheelchair He will then be housed in er room 3 Cailin WOOD was made aware of the pt re roomed pts is bedside URINALYSIS Collected: 08/11/2018 Status: F Source: [place] 6:13 PM [facility] REPOSITORY TYPE CODE TESTS RESULT OUT OF RANGE REFERENCE UNITS LAB UCOL Yellow Color Yellow LAB [facility] Clear Clarity Clear LAB UGLUC Negative mg/dL Glucose, Urine Negative LAB UBIL Negative Bilirubin, Urine Negative LAB UKET Negative Ketones, Abnormal Urine Trace Alert LAB USPG 1.001-1.029 High Specific [place], Ur >1.029 LAB UHGB Negative Hemoglobin/Blood, Negative Ur LAB UPH 5.0-8.0 pH 6.0 LAB UPROT Negative mg/dL Protein, Urine Negative LAB UUROB 0.2-1.0 Urobilinogen 0.2 LAB UNITR Negative Nitrites Negative LAB ULKEST Negative Leukest Negative Performed By: #### UA #### [facility] [address] [facility] [phone] ED PROV NOTE Observed: 08/11/2018 Status: COMPLETED Source: [place] 6:12 PM CLINIC OTHER CAMPUS REPOSITORY O ID: [id number] Author: Carolina Bender (Pa) Service: (none) Author Type: Physician Filler Machine Operator Type: ED Provider Notes Filed: 08/11/2018 11:35 PM Note Text: ED Provider Note Patient Name: Attila Del Cid SERVICE DATE: 08/11/18 History Patient presents with: Chest Pain Flank Pain Attila Del Cid is a 48 year old male with a history of ectatic thoracic aortic, A. fib, kidney stone, hypertension, TIA who presents with chest pain since 4 PM today. Continuous, waxing and waning, nonradiating, left sided, sharp, worse with exertion, no alleviating factors. States he has chest pain every day but this is worse so he came to the ED. 420 PM and 430 PM took nitro SL without relief. Had cardiac cath which was unremarkable in September 2017. Had stress test a month ago, states there was heart failure and some partial blockages which they are managing medically. Hx A fib on eliquis, states they took him off of aspirin because of the high dose of eliquis. Hx superficial right arm clot. No hx PE. No recent surgery, hospitalization, travel. History provided by: Medical records, patient and spouse PAST MEDICAL HISTORY Diagnosis Date - Acute right flank pain 03/25/2018 - Aneurysm of ascending aorta (HCC) - Aortic aneurysm (HCC) - Arthritis - Atrial fibrillation (HCC) - Calculi, ureter - Calculus of kidney - Hematuria - Hypertension - Kidney stones 03/25/2018 - Pneumonia - Psychiatric disorder anxiety - Renal calculus PAST SURGICAL HISTORY Procedure Laterality Date - BACK SURGERY HX 2014 FUSION, L4-L5 - COLONOSCOP W/ OR W/O BRSH SPEC 05/14/2014 Colonoscopy - EGD W/O OR W/BRUSH/WASH 05/14/2014 EGD - FRAGMENTING/KIDNEY STONE Right 2016 Lithotripsy - KNEE SURGERY HX Right 03/2017 patella replacement - [place] ANESTH,KNEE JOINT; NOS 12/2017 Left - REMOVAL OF KIDNEY STONE 04/2018 FAMILY HISTORY Problem Relation Age of Onset - Diabetes Mother - Colon Cancer Mother - Heart disease Mother - Hypertension Mother - Diabetes Sister - Skin Cancer Father Social History Social History Main Topics - Smoking status: Never Smoker - Smokeless tobacco: Never Used - Alcohol use No - Drug use: No - Sexual activity: Not on file ALLERGIES Allergen Reactions - Atorvastatin Other: See Comments Chest pain - Celebrex [Celecoxib] Vomiting Nausea - Clonidine Rash - Fentanyl GI Upset - Levofloxacin Rash pt reports to [facility] PT 04-13-2017 - Penicillin G Rash - Relpax [Eletriptan * Vomiting Nausea - Topamax [Topiramate] Vomiting - Vicodin [Hydrocodon* Vomiting - Wellbutrin [Bupropi* Vomiting Nausea Review of Systems Constitutional: Negative for chills and fever. HENT: Negative for congestion. Eyes: Negative for visual disturbance. Respiratory: Negative for cough and shortness of breath. Cardiovascular: Positive for chest pain. Negative for palpitations and leg swelling. Gastrointestinal: Negative for abdominal pain, constipation, diarrhea, nausea and vomiting. Genitourinary: Negative for dysuria. Musculoskeletal: Negative for arthralgias and back pain. Skin: Negative. Neurological: Negative for dizziness, weakness, numbness and headaches. Physical Exam BP 136/93 Pulse 83 Temp (Src) 97.5 (Oral) Resp 19 Ht 5' 11 (1.80m) Wt 235 lb (106.6kg) SpO2 100% BMI 32.79 kg/(m2). Physical Exam Constitutional: He is oriented to person, place, and time. He appears well-developed and well-nourished. No distress. HENT: Head: Normocephalic and atraumatic. Eyes: Conjunctivae are normal. Neck: Normal range of motion. Neck supple. Cardiovascular: Normal rate, regular rhythm and normal heart sounds. Exam reveals no gallop and no friction rub. No murmur heard. Pulmonary/Chest: Effort normal and breath sounds normal. No respiratory distress. He has no wheezes. He has no rales. He exhibits no tenderness. Abdominal: Soft. Bowel sounds are normal. There is no tenderness. Musculoskeletal: Normal range of motion. Neurological: He is alert and oriented to person, place, and time. Skin: Skin is warm and dry. He is not diaphoretic. Psychiatric: He has a normal mood and affect. Nursing note and vitals reviewed. Diagnostic Testing ED Labs Ordered and Reviewed - No data to display Procedures ED Course / Clinical Impression ED Course as of Aug 11 2140 Others' Documentation Mon Aug 11, 2018 1846 UA negative for UTI and blood in urine [KS] 1903 no leukocytosis or anemia [KS] 1918 CK MB normal [KS] 1918 normal electrolytes, renal function, hepatic function [KS] 1999 troponin [KS] ED Course User Index [KS] Carolina Bender (Pa) Clinical Impressions as of Aug 11 2140 Chest pain, unspecified type XR CHEST 2V FRONTAL/LAT Final Result IMPRESSION: No acute radiographic abnormality. 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 Triage records were reviewed. Medical records were reviewed. Nursing notes were reviewed and incorporated. Medical Decision Making: Attila Del Cid is a 48 year old male with a hx of A fib on eliquis, ectatic thoracic aorta, HTN, HLD who presents with chest pain continuously since 4 PM. Took 2 SL nitro at 4:20 and 4:30 PM without relief. No missed eliquis doses. No SOB, palpitations, dizziness. Exam benign. VS stable. HR normal, regular rhythm. Chest x-ray negative for acute cardiopulmonary process. Labs unremarkable. CTA chest negative for dissection, thoracic aneurysm is present but not requiring surgical repair at this time based on size. On previous notes it was mentioned that be should meet with pain management, will give him their follow up information. Can't take NSAIDs because on Eliquis. States tylenol and muscle relaxers don't work. Discussed risk of radiation with all of his CTs, and that this needs to decrease in the future. The attending who evaluated and managed this patient was Dennis Alford . Plan: The patient was discharged home with verbal and written instructions. They were instructed to return as needed for persistent or worsening symptoms or any new concerns. Carolina Bender PA-C The patient was DISCHARGED: Counseled patient and significant other regarding lab results AND radiology results AND suspected diagnosis AND need for follow-up. Discharged home with verbal and written instructions. They were instructed to return as needed for persistent or worsening symptoms or any new concerns. Given a prescription for the following medication(s): lidocaine patches Condition at time of disposition: stable SIGNATURE: Carolina Bender PA-C Attending Note I have personally performed a face to face assessment of the patient and have reviewed the PA/PACKING AND WRAPPING SUPERVISOR note. My gauthier findings include: History - Mr. Del Cid is a 48 yo MWith history of thoracic aortic aneurysm and hypertension and clean catheterization, per him, about 7 months ago, as well as ablation for atrial fibrillation, an admission for atypical migraine that turned out not to be it from a TIA a couple of months ago, now presenting with right-sided flank discomfort that he knows his from a stone, told by Dr. Perez to come for pain control, with that for about a week and a half, as well as now chest discomfort that is sharp and goes to his left axilla over the last 3-4 hours. He is on Eliquis because of his atrial fibrillation. Exam - no murmur, clear lungs, no distress, nontender abdomen Assessment/Plan - Mr. Del Cid is a 48-year-old male presenting today with atypical chest discomfort and possible urolithiasis. His ECG shows normal sinus rhythm at 86 bpm and possible LVH, though no ST elevation myocardial infarction or acute changes. We will reassess him after CT to evaluate for worsening of his aneurysm and high sensitivity troponins to exclude MA. Nothing acute on w/u. Incidentally, he's had > 10 CT's in last 2 mo. He's had 26 providers write narcotics on his OARRS, several in the last few mo. We discussed he needs to f/u w/ pain management. He has no obstructing stone. Other additions or changes: None Signature: Dennis Alford MD Date: 08/11/2018 Time: 7:04 PM Carolina Bender (Pa) 08/11/18 2335 ED NOTE Observed: 08/11/2018 Status: COMPLETED Source: [place] 5:57 PM [facility] REPOSITORY HNO ID: [id number] Author: Berenice AminRn) ALE Pederson Service: (none) Author Type: Registered Nurse Type: ED Notes Filed: 08/11/2018 5:58 PM Note Text: Pt report was received ED NOTE Observed: 08/11/2018 Status: COMPLETED Source: [place] 5:54 PM [facility] REPOSITORY HNO ID: [id number] Author: Jenny AminRn) ALE Crawford Service: (none) Author Type: Registered Nurse Type: ED Notes Filed: 08/11/2018 5:55 PM Note Text: Patient with known right kidney stone with increased pain. Chest pain started today. 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 EKG Observed: 08/11/2018 Status: F Source: [place] 5:48 PM [facility] REPOSITORY NAME : ATTILA DEL CID PID : [id number] : 1970 Gender : Male Race : ORD : [id number] Procedure Date : Aug 11 2018 17:48:19 Edit Date : Aug 12 2018 07:51:19 Diagnosis:NORMAL SINUS RHYTHM MINIMAL VOLTAGE CRITERIA FOR LVH, MAY BE NORMAL VARIANT BORDERLINE ECG WHEN COMPARED WITH ECG OF 15-JUN-2018 18:31, NO SIGNIFICANT CHANGE WAS FOUND no stemi Confirmed by Jona ALFORD, DENNIS Guerrero ([id number]), dictionary editor ANDRESSA TOBIN ([id number]) on 08/12/2018 7:51:13 AM Ventricular Rate : 86 BPM Atrial Rate : 86 BPM P-R Interval : 158 ms QRS Duration : 88 ms Q-T Interval : 372 ms QTC Calculation(Bezet) : 445 ms P Greenwood : 16 degrees R Greenwood : 1 degrees T Greenwood : 20 degrees Test Reason : Chest Pain Location : 1 : ER TR Overread By : Jona ALFORD EDWARD F. Edited By : ANDRESSA TOBIN Referred By : , Acquired by : PS, ED NOTE Observed: 08/11/2018 Status: COMPLETED Source: [place] 12:11 AM [facility] REPOSITORY HNO ID: [id number] Author: René AminRn) ALE Cooley Service: Emergency Medicine Author Type: Registered Nurse Type: ED Notes Filed: 08/11/2018 12:11 AM Note Text: Patient informed: the name of medication, why we are giving it, possible side effects, what they may expect to feel, and was offered a chance to ask questions, prior to the administration of norflex. CNPN Observed: 08/11/2018 Status: COMPLETED Source: [place] 12:00 AM [facility] REPOSITORY Telephone (AKURFL) MARIA EUGENIAATTILA ([id number]) 1970 M Date Time Provider Department 08/11/18 CAMRON PEREZ During your visit today, we recorded the following information about you: Jeremiah Tapia, RN, RN 08/11/2018 3:36 PM Signed Attila Del Cid called today. : 1970 Allergies: Atorvastatin; Celebrex [Celecoxib]; Clonidine; Fentanyl; Levofloxacin; Penicillin G; Relpax [Eletriptan Hbr]; Topamax [Topiramate]; Vicodin [Hydrocodone-Acetaminophen]; Wellbutrin [Bupropion Hcl] (home) [phone] (cell) Message can be left with: with patient only Reason for call: Patient called and stated that he was seen at the ED on 08-04-2018 and 08-10-2018 at [place]. ED did a CT and showed kidney stones. Patient states that he has constant pain and it ranges from a 6-7. Patient was advised that at that level he should report to the ED for assessment and TX. Patient was also advised that a message would be sent to you as notification. Please advise. Recent Urology Surgery: None Is the patient experiencing any pain related to this call? yes, character - constant, frequency - many times a day, duration - constant, location Right lower flank. Any nausea/vomitting? Neither Voiding concerns: no problems w/ voiding. Patient last appointment: 07/07/2018 The patients preferred pharmacy has been captured for this encounter? yes ALE Perales MD 08/11/2018 4:21 PM Signed Agree with plan, No blockages on imaging , so not clear that stone is causing the pain ; May need referral to pain managemnt or 2nd opinion regarding stones; I think he should not have any more CT either due to radiation exposure Jeremiah Tapia, RN, RN 08/12/2018 8:29 AM Signed Left message on phone to return call to office. Regarding pain issue. Jeremiah Tapia RN Amanda Raymundo VARGAS 08/12/2018 9:25 AM Signed Patient returned call and was notified of message below regarding per provider. Patient States the ER gave him the name and number to pain management Patient acknowledged understanding of instructions and has no further questions. Linda Raymundo Tapia RN, RN 09/19/2018 9:22 AM Signed See message below. Jeremiah Tapai RN Allergies As of Date: 08/11/2018 Noted Allergy Reaction ATORVASTATIN 10/09/2017 14 - Other: See Comments Comments: Chest pain CELEBREX (CELECOXIB) 07/17/2016 11 - Vomiting Comments: Nausea CLONIDINE 07/17/2016 2 - Rash FENTANYL 07/17/2016 8 - GI Upset LEVOFLOXACIN 04/13/2017 2 - Rash Comments: pt reports to [facility] PT 6--2017 PENICILLIN G 12/30/2013 2 - Rash RELPAX (ELETRIPTAN HBR) 07/17/2016 11 - Vomiting Comments: Nausea TOPAMAX (TOPIRAMATE) 07/17/2016 11 - Vomiting VICODIN (HYDROCODONE-ACETAMINOPHE*12/30/2013 11 - Vomiting WELLBUTRIN (BUPROPION HCL) 07/17/2016 11 - Vomiting Comments: Nausea Date Reviewed: 08/10/2018 Reviewed by: Fiona (Rn) ALE Choe - Fully Assessed Reason for Visit: Patient Question [1477] Prescriptions as of 08/11/2018 Sig: CYCLOBENZAPRINE 10 MG TABLET Take 1 tablet by mouth three * CYCLOBENZAPRINE 10 MG TABLET Take 1 tablet by mouth three * LIDOCAINE 5 % TOPICAL PATCH Apply 1 Patch as directed guerrero* ISOSORBIDE MONONITRATE ER 30 * Take 30 mg by mouth once chrystal* NITROGLYCERIN 0.4 MG SUBLINGU* Dissolve 0.4 mg under the ton* PROMETHAZINE 25 MG TABLET Take 1 tablet by mouth every * SOTALOL 120 MG TABLET Take 120 mg by mouth twice da* ONDANSETRON 4 MG DISINTEGRATI* Take 1 tablet by mouth every * METHOCARBAMOL 750 MG TABLET Take 1 tablet by mouth four t* Patient not taking: Reported on 07/28/2018 ATORVASTATIN 20 MG TABLET every day ESCITALOPRAM 10 MG TABLET every day AMLODIPINE 5 MG TABLET Take 5 mg by mouth twice chrystal* BABY ASPIRIN ORAL Take 1 tablet by mouth once d* TAMSULOSIN 0.4 MG CAPSULE every day GABAPENTIN 300 MG CAPSULE Take 100 mg by mouth daily at* APIXABAN 5 MG TABLET Take by mouth twice daily. MECLIZINE 12.5 MG TABLET Take 2 tablets by mouth twice* LISINOPRIL 20 MG TABLET Take 1 tablet by mouth once d* PANTOPRAZOLE 40 MG TABLET,DEL* Take 1 tablet by mouth once d* ALBUTEROL SULFATE HFA 90 MCG/* Inhale 2 Puffs as instructed * Problem List As Of Date 08/11/2018 Noted Resolved Primary osteoarthritis of right knee [M17.11] INVALID FOR* Chest pain at rest [R07.9] INVALID FOR* HTN (hypertension) [I10] INVALID FOR* Atrial fibrillation (HCC) [I48.91] INVALID FOR* More... Atypical chest pain [R07.89] INVALID FOR* Patellofemoral instability of right knee with p*INVALID FOR* Kidney stones [N20.0] INVALID FOR* Acute right flank pain [R10.9] INVALID FOR* Ectatic thoracic aorta (HCC) [I77.810] INVALID FOR* More... Renal calculus, right [N20.0] INVALID FOR* TIA (transient ischemic attack) [G45.9] INVALID FOR* Calculus of kidney [N20.0] INVALID FOR* More... Encounter Status:Closed by LINDA FONSECA CMA on 08/12/18 CT ABDOMEN AND PELVIS Observed: 08/10/2018 Status: F Source: [facility] W/O CONTRAST 10:29 PM HEALTH SYSTEM REPOSITORY Performed at [facility] APPROVED BY: FREDDY HERNANDEZ DO EXAMINATION: CT ABDOMEN AND PELVIS W/O CONTRAST REASON FOR EXAM: Flank pain, recurrent stone disease suspected TECHNIQUE: CT ABDOMEN AND PELVIS W/O CONTRAST; CT of the abdomen and pelvis was performed without intravenous contrast using standard technique. CT Dose Reduction Employed: Automated exposure control (AEC) COMPARISON: CT abdomen/pelvis, 08/04/2018 FINDINGS: Title Assistant: No additional finding. Lower Thorax: Bibasilar atelectasis. Patchy bibasilar groundglass densities appear similar to the prior. Coronary artery calcifications noted, not quantified. Bilateral gynecomastia. Punctate densit y in the LEFT lower lobe appears triangular and is likely related to atelectasis or scarring. Liver: Unremarkable. Biliary: No definite bile duct dilation. Gallbladder is unremarkable. Pancreas: Fatty replacement of portions of the pancreas. Spleen: Unremarkable. Adrenals: Unremarkable. Kidneys/Ureters: Bilateral perinephric stranding is nonspecific, likely chronic, more often seen with older age, and often regarded as an incidental finding, but can be associated with chronic bladder o utlet obstruction. RIGHT nephrolithiasis on image 103 of axial series. No definite hydronephrosis. No suspicious ureteral dilation. Pelvis: Bilateral fat-containing inguinal hernias. No bladder wall thickening. Prostate calcifications. Gastrointestinal tract: No suspicious large bowel dilation or overt wall thickening. High attenuation in the appendix may be incidental debris; appendicolith(s) not excluded. No convincing CT evidence of appendicitis. Incomplete gastric distention limits evaluation for wall thickening. No suspicious small bowel dilation or overt wall thickening within the limitations of the study. Submucosal fat attenuation is noted involving the terminal ileum. This can be associated with chronic inflammatory bowel disease such as ulcerative colitis and Crohn's, but has also been noted in patie nts without any history of prior gastrointestinal disease, and in patients who are obese. This pattern can also be seen more frequently in undistended bowel loops. Vasculature: Scattered vascular calcifications. Lymph nodes: No suspicious lymph node enlargement. Mesentery/Peritoneum: No large volume ascites. No free air. There is haziness within the central mesenteric fat with prominent but subcentimeter lymph nodes; this is nonspecific but can be seen with s clerosing mesenteritis. This is of uncertain relationship to the patient's current clinical symptoms, but appears similar to the prior. Bones/Soft tissues: Post surgical changes involving the lumbar spine. No acute or suspicious osseous abnormality. IMPRESSION: 1. No clear acute CT abnormality in the abdomen or pelvis to explain the patient's symptoms. 2. RIGHT nephrolithiasis. 3. Patchy bibasilar groundglass densities appear similar to the prior. Changes may be related to atelectasis or a pneumonitis. 4. Additional observations as detailed in the body of the report. ED NOTE Observed: 08/10/2018 Status: COMPLETED Source: [place] 10:26 PM [facility] [place] REPOSITORY HNO ID: [id number] Author: René Cooley RN Service: Emergency Medicine Author Type: Registered Nurse Type: ED Notes Filed: 08/10/2018 10:26 PM Note Text: Patient returned to the Emergency Department. MACROSCOPIC URINALYSIS Collected: 08/10/2018 Status: F Source: [facility] 10:00 PM HEALTH SYSTEM REPOSITORY TYPE CODE TESTS RESULT OUT OF REFERENCE UNITS RANGE LAB LCOLR(LOIN C) Urine Color YELLOW LAB LAPPU(LOIN C) Urine Appearance CLEAR LAB LGLUR(LOIN Negative C) Glucose Urine NEGATIVE LAB LKETO(LOIN Negative C) Ketone Urine NEGATIVE LAB LHGBU(LOIN Negative C) Hemoglobin,Urine NEGATIVE LAB LPRTU(LOIN Negative C) Protein Urine NEGATIVE LAB LNITR(LOIN Negative C) Nitrites Urine NEGATIVE LAB LBILU(LOIN Negative C) Bilirubin Urine NEGATIVE LAB LSPG(LOINC 1.005-1.030 ) Specific [place], Ur 1.020 LAB LPHUR(LOIN 5.0-8.0 C) pH,Urine 8.0 LAB LUROB(LOIN 0.0-1.0 EU/dL C) Urobilinogen,Ur 1.0 LAB LLEUK(LOIN Negative C) Leukocytes NEGATIVE Esterase Performed By: #### LMACU #### [place] [address] ED NOTE Observed: 08/10/2018 Status: COMPLETED Source: [place] 9:56 PM [facility] REPOSITORY HNO ID: [id number] Author: René AminRnLaurel Cooley RN Service: Emergency Medicine Author Type: Registered Nurse Type: ED Notes Filed: 08/10/2018 9:56 PM Note Text: Voided urine specimen obtained and sent. ED NOTE Observed: 08/10/2018 Status: COMPLETED Source: [place] 9:54 PM [facility] RE[facility]IT[facility] HNO ID: [id number] Author: Michela AminRn) ALE Walton Service: Emergency Medicine Author Type: Registered Nurse Type: ED Notes Filed: 08/10/2018 9:55 PM Note Text: See paper charting for epic downtime ED NOTE Observed: 08/10/2018 Status: COMPLETED Source: [place] 9:53 PM [facility] RE[facility]IT[facility] HNO ID: [id number] Author: Cally AminRn) Yonatan RN Service: Emergency Medicine Author Type: Registered Nurse Type: ED Notes Filed: 08/10/2018 9:53 PM Note Text: Patient informed: the name of medication, why we are giving it, possible side effects, what they may expect to feel, and was offered a chance to ask questions, prior to the administration of toradol, percocet. ED PROV NOTE Observed: 08/10/2018 Status: COMPLETED Source: [place] 9:53 PM [facility] [place] REPOSITORY O ID: [id number] Author: René Garcia MD Service: Emergency Medicine Author Type: Physician Type: ED Provider Notes Filed: 08/10/2018 11:57 PM Note Text: ED Provider Note Patient Name: Attila Del Cid SERVICE DATE: 08/10/18 History Patient presents with: Flank Pain Attila Del Cid is a 48 year old male with history of kidney stones who presents with right flank pain no trauma. Patient has tried Tylenol. Patient can't get comfortable. - Symptoms began 1 days prior to arrival. Onset was gradual. - Severity: moderate - Timing: constant - Quality: colicky - Pain is exacerbated by nothing. Pain radiates to right lower abdomen. - Pain is not exacerbated by movement and palpation. - Symptoms are associated with back pain. - Symptoms are not associated with fever, nausea and vomiting. - Improved by nothing. - Not improved by rest history of multiple kidney stones he was seen 7 days ago for the same he has not followed up with his urologist yet he had a procedure done for hydronephrosis and nephrocalcinosis in June he said he sat 20 kidney stones but never passed any pain always have to be extracted with a basket. CT scan on the of this month did not show any ureterolithiasis or hydronephrosis. PAST MEDICAL HISTORY Diagnosis Date - Acute right flank pain 03/25/2018 - Aneurysm of ascending aorta (HCC) - Aortic aneurysm (HCC) - Arthritis - Atrial fibrillation (HCC) - Calculi, ureter - Calculus of kidney - Hematuria - Hypertension - Kidney stones 03/25/2018 - Pneumonia - Psychiatric disorder anxiety - Renal calculus PAST SURGICAL HISTORY Procedure Laterality Date - BACK SURGERY HX 2015 FUSION, L4-L5 - COLONOSCOP W/ OR W/O BRSH SPEC 05/14/2014 Colonoscopy - EGD W/O OR W/BRUSH/WASH 05/14/2014 EGD - FRAGMENTING/KIDNEY STONE Right 2017 Lithotripsy - KNEE SURGERY HX Right 03/2017 patella replacement - [place] ANESTH,KNEE JOINT; NOS 12/2017 Left - REMOVAL OF KIDNEY STONE 04/2018 FAMILY HISTORY Problem Relation Age of Onset - Diabetes Mother - Colon Cancer Mother - Heart disease Mother - Hypertension Mother - Diabetes Sister - Skin Cancer Father Social History Social History Main Topics - Smoking status: Never Smoker - Smokeless tobacco: Never Used - Alcohol use No - Drug use: No - Sexual activity: Not on file ALLERGIES Allergen Reactions - Atorvastatin Other: See Comments Chest pain - Celebrex [Celecoxib] Vomiting Nausea - Clonidine Rash - Fentanyl GI Upset - Levofloxacin Rash pt reports to [facility] PT 04-13-2017 - Penicillin G Rash - Relpax [Eletriptan * Vomiting Nausea - Topamax [Topiramate] Vomiting - Vicodin [Hydrocodon* Vomiting - Wellbutrin [Bupropi* Vomiting Nausea Review of Systems Constitutional: Negative for chills and fever. Respiratory: Negative for cough and shortness of breath. Gastrointestinal: Negative for abdominal pain, nausea and vomiting. Genitourinary: Positive for flank pain. Negative for frequency and urgency. Musculoskeletal: Negative for back pain and neck pain. Skin: Negative for color change, pallor, rash and wound. Allergic/Immunologic: Negative for environmental allergies, food allergies and immunocompromised state. Neurological: Negative for weakness and numbness. Psychiatric/Behavioral: Negative for confusion. The patient is not nervous/anxious. Physical Exam BP 146/97 Pulse 97 Temp (Src) 98.4 (Temporal Artery) Resp 18 Ht 5' 11 (1.80m) Wt 235 lb (106.6kg) SpO2 100% BMI 32.79 kg/(m2). Physical Exam Constitutional: He is oriented to person, place, and time. He appears well-developed and well-nourished. No distress. obese HENT: Head: Normocephalic and atraumatic. Right Ear: External ear normal. Left Ear: External ear normal. Eyes: EOM are normal. Right eye exhibits no discharge. Left eye exhibits no discharge. No scleral icterus. Neck: Normal range of motion. Neck supple. No tracheal deviation present. Cardiovascular: Normal rate, regular rhythm and intact distal pulses. Pulmonary/Chest: Effort normal and breath sounds normal. No respiratory distress. Abdominal: Soft. He exhibits no distension. There is no tenderness. There is no guarding. Musculoskeletal: Normal range of motion. He exhibits no edema, tenderness or deformity. Neurological: He is alert and oriented to person, place, and time. No sensory deficit. He exhibits normal muscle tone. Skin: Skin is warm and dry. Capillary refill takes less than 2 seconds. No rash noted. He is not diaphoretic. No erythema. No pallor. Psychiatric: He has a normal mood and affect. His behavior is normal. Judgment and thought content normal. Nursing note and vitals reviewed. Diagnostic Testing ED Labs Ordered and Reviewed - No data to display Procedures ED Course / Clinical Impression MDM / Disposition / Plan Pt given one dose oxycodone here and toradol. [facility] shows multiple prescribers and we have advised him need for his pcp or pain management to provide Rx for this if needed. I will recheck Ct ; look for stone passing. nsaid and muscle relaxer may help too. F/u to urologist . No other symptoms suggesting other pathologies Ct showed no acute changes Disposition The patient was discharged. Counseled patient regarding lab results, radiology results and suspected diagnosis. As well as the need for follow-up. Discharged home with verbal and written instructions. They were instructed to return as needed for persistent or worsening symptoms or any new concerns. SIGNATURE: MD René Darby MD 08/10/18 2357 ED NOTE Observed: 08/10/2018 Status: COMPLETED Source: [place] 9:40 PM [facility] REPOSITORY HNO ID: [id number] Author: René Sloan) ALE Cooley Service: Emergency Medicine Author Type: Registered Nurse Type: ED Notes Filed: 08/10/2018 9:40 PM Note Text: See paper chart. Computer down time. CT ABDOMEN/PELVIS W/O Observed: 08/09/2018 Status: F Source: [facility] CONTRAST 3:02 PM [facility] REPOSITORY ORIGINAL CT ABDOMEN/PELVIS W/O CONTRAST TECHNIQUE: This exam was performed according to our departmental dose-optimization program which includes automated exposure control, adjustment of the mA and/or kVp according to patient size and/or use of iterative reconstruction technique where applicable. CLINICAL STATEMENT: RIGHT flank pain with history of kidney stones. COMPARISON: None FINDINGS: The included lung bases are clear. There is no visible pleural or pericardial effusion. Visualized portion of the heart is normal. Coronary artery calcification is noted. The liver, spleen, adrenal glands, gallbladder and pancreas are within normal limits. There is two 2-3 mm stones in the lower pole of the RIGHT kidney. No additional calculi are identified. There is no hydronephrosis or perinephric stranding. The ureters are of normal course and caliber. The urinary bladder is collapsed. The large and small bowel are normal in course and caliber. The appendix is normal. No free intraperitoneal fluid or air is identified. There is no lymphadenopathy. The aorta is normal in caliber. There is no visible fracture or aggressive osseous lesion. Transpedicular screws with posterior stabilizing rods and intervertebral spacers are present at L4-L5. Significant facet arthropathy is present at these levels. No listhesis. IMPRESSION: Nonobstructing, punctate RIGHT renal stones. I have personally reviewed the images of this examination and agree with the resident's findings and interpretation. Interpreted By: Joon Myers DO Preliminary Report By: Clementine Worrell DO Electronically Signed By: Joon Myers DO Dictated Date: 08/09/2018 3:37:18 PM Prelim Date: 08/09/2018 3:45:22 PM Sign Date: 08/09/2018 5:23:19 PM XR CHEST 1 VIEW Observed: 08/09/2018 Status: F Source: [facility] 3:02 PM [facility] REPOSITORY ORIGINAL XR CHEST 1 VIEW PORTABLE AP TIME: 1457 CLINICAL STATEMENT: chest pain COMPARISON: 08/02/2018 FINDINGS: The cardiomediastinal contours are normal. There is no consolidation, vascular congestion, pleural effusion, or pneumothorax. No displaced fractures are identified. IMPRESSION: No acute radiographic findings. Interpreted By: Brody Das DO Preliminary Report By: Brody Das DO Electronically Signed By: Brody Das DO Dictated Date: 08/09/2018 3:45:36 PM Prelim Date: 08/09/2018 3:45:36 PM Sign Date: 08/09/2018 3:48:25 PM CBC Collected: 08/09/2018 Status: F Source: [facility] 2:37 PM [facility] TYPE CODE TESTS RESULT OUT OF REFERENCE UNITS RANGE LAB WBC(LOINC) 4.60-10.80 10 3/mcL WBC 8.40 LAB RBCCT(LOINC 4.04-6.13 10 6/mcL ) RBC 5.21 LAB HGB(LOINC) 14.0-18.0 G/dL Low Hgb 13.5 LAB HCT(LOINC) 42.0-52.0 % Low Hct 41.2 LAB MCV(LOINC) 80.0-94.0 fL Low MCV 79.0 LAB MCH(LOINC) 27.0-31.2 pg Low MCH 25.8 LAB MCHC(LOINC) 31.8-35.4 G/dL MCHC 32.7 LAB RDW(LOINC) 11.5-14.5 % High RDW 16.2 LAB PLT(LOINC) 130-400 10 3/mcL Platelet 345 LAB MPV(LOINC) 7.4-10.4 fL Low MPV 7.1 Performed By: #### CBC, ADIFF, ANEU #### [address] [address] #### BMP, GFR #### [address] [address] .AUTO DIFF Collected: 08/09/2018 Status: F Source: [facility] 2:37 PM [facility] REPOSITORY TYPE CODE TESTS RESULT OUT OF REFERENCE UNITS RANGE LAB PAZ(LOINC) 37.0-80.0 % Neutrophil % 66.4 LAB LYM(LOINC) 10.0-50.0 % Lymphocyte % 25.9 LAB MON(LOINC) 1.7-13.0 % Monocyte % 6.0 LAB EO(LOINC) 0.0-7.0 % Eosinophil % 0.8 LAB BAS(LOINC) 0.0-2.5 % Basophil % 0.9 LAB ABLYM(LOIN 0.77-3.85 10 3/mcL C) Lymphocyte, 2.20 Absolute LAB REJI(LOINC 0.15-1.00 10 3/mcL ) Monocyte, 0.50 Absolute LAB AEOS(LOINC 0.00-0.40 10 3/mcL ) Eosinophil, 0.10 Absolute LAB ABAS(LOINC 0.00-0.19 10 3/mcL ) Basophil, 0.10 Absolute Performed By: #### CBC, ADIFF, ANEU #### [address] [address] #### BMP, GFR #### [address] [address] .NEUABS Collected: 08/09/2018 Status: F Source: [facility] 2:37 PM [facility] REPOSITORY TYPE CODE TESTS RESULT OUT OF REFERENCE UNITS RANGE LAB ANEU(LOINC) 2.85-6.16 10 3/mcL Neutrophil, 5.60 Absolute Performed By: #### CBC, ADIFF, ANEU #### [address] [address] #### BMP, GFR #### [place] [address] BMP Collected: 08/09/2018 Status: F Source: [facility] 2:37 PM [facility] REPOSITORY TYPE CODE TESTS RESULT OUT OF REFERENCE UNITS RANGE LAB GLU(LOINC) 70-105 mg/dL Glucose Level 95 LAB NA(LOINC) 136-145 mmol/L Sodium Level 139 LAB K(LOINC) 3.5-5.1 mmol/L Potassium Level 3.7 LAB CL(LOINC) 98-107 mmol/L Chloride 105 LAB CO2(LOINC) 22-29 mmol/L CO2 27 LAB EBAL(LOINC mEq/L ) Electrolyte Balance 7.0 LAB BUN(LOINC) 7-18 mg/dL BUN 16 LAB CRE(LOINC) 0.70-1.30 mg/dL Creatinine Lvl (s) 0.87 LAB BC(LOINC) 7-27 ratio BUN/Creatinine 18 Ratio LAB CA(LOINC) 8.4-10.2 mg/dL Calcium Lvl 9.5 Performed By: #### CBC, ADIFF, ANEU #### [address] [address] #### BMP, GFR #### [address] [address] .GFR Collected: 08/09/2018 Status: F Source: [facility] 2:37 [facility] [place] REPOSITORY TYPE CODE TESTS RESULT OUT OF REFERENCE UNITS RANGE LAB GFRAA(LOINC ml/min/1.73 ) sqm GFR 114 Hungarian Result Comment: GFR Population mean for , Non- Americans Ages 20-29 = 116 mL/min/1.73 sq.m. Ages 30-39 = 107 mL/min/1.73 sq.m. Ages 40-49 = 99 mL/min/1.73 sq.m. Ages 50-59 = 93 mL/min/1.73 sq.m. Ages 60-69 = 85 mL/min/1.73 sq.m. Ages 70+ = 75 mL/min/1.73 sq.m. Chronic Kidney Disease: Less than 60 mL/min/1.73 square meters End Stage Renal Disease: Less than 15 mL/min/1.73 square meters LAB GFRNO(LOINC) ml/min/1.73sqm GFR Non- 94 Result Comment: GFR Population mean for , Non- Americans Ages 20-29 = 116 mL/min/1.73 sq.m. Ages 30-39 = 107 mL/min/1.73 sq.m. Ages 40-49 = 99 mL/min/1.73 sq.m. Ages 50-59 = 93 mL/min/1.73 sq.m. Ages 60-69 = 85 mL/min/1.73 sq.m. Ages 70+ = 75 mL/min/1.73 sq.m. Chronic Kidney Disease: Less than 60 mL/min/1.73 square meters End Stage Renal Disease: Less than 15 mL/min/1.73 square meters Performed By: #### CBC, ADIFF, ANEU #### [address] [address] #### BMP, GFR #### [address] [address] ED NOTE Observed: 08/04/2018 Status: COMPLETED Source: [place] 9:55 PM [facility] REPOSITORY HNO ID: [id number] Author: Jena AminRn) Ivana RN Service: Emergency Medicine Author Type: Registered Nurse Type: ED Notes Filed: 08/04/2018 9:55 PM Note Text: D/C to home with , instructed to follow up as directed sand return prn ED NOTE Observed: 08/04/2018 Status: COMPLETED Source: [place] 9:12 PM [facility] REPOSITORY HNO ID: [id number] Author: René AminRn) ALE Cooley Service: Emergency Medicine Author Type: Registered Nurse Type: ED Notes Filed: 08/04/2018 9:12 PM Note Text: Patient informed: the name of medication, why we are giving it, possible side effects, what they may expect to feel, and was offered a chance to ask questions, prior to the administration of dilaudid. CT ABDOMEN AND PELVIS Observed: 08/04/2018 Status: F Source: [facility] W/O CONTRAST 9:10 PM HEALTH SYSTEM REPOSITORY Performed at [facility] APPROVED BY: CASSY CHRISTINE MD EXAMINATION: CT ABDOMEN AND PELVIS WITHOUT IV CONTRAST CLINICAL HISTORY: Flank pain. TECHNIQUE: Non-IV contrast imaging of the abdomen and pelvis was performed using standard technique, scanning from just above the dome of the diaphragm to the symphysis pubis. Unenhanced imaging is romo ited for the evaluation of some intra-abdominal and pelvic pathology. MQ: [id number]_3 Contrast: IV: None CT Radiation dose: Integrated Dose-length product (DLP) for this visit = 1228.51 mGy*cm. CT Dose Reduction Employed: K[employer] 1 COMPARISON: None. RESULT: Abdomen / Pelvis: Liver: Unremarkable. Biliary: The gallbladder is unremarkable. Spleen: No splenomegaly. Pancreas: There is fatty infiltration of the pancreas but no evidence of any acute inflammatory changes. Adrenals: No mass. Kidneys: There is no hydronephrosis or hydroureter. There is a punctate 2 mm stone in a major calyx in the right lower pole of the right kidney. There is a second 2 mm stone in a major calyx within th e mid to lower pole of the right kidney as well. There are multiple phleboliths in the pelvis, particularly right side greater than left. Separate from this there is no definite stone in the distal ureters. The course of the ureters are best visuali zed on the coronal reformatted images. GI Tract: No bowel dilation. Normal appendix. Lymph Nodes: No lymphadenopathy. Mesentery/peritoneum: No ascites. Retroperitoneum: No mass. Vasculature: There is mild arterial atherosclerotic disease without aneurysm. Pelvis: No mass or ascites. Multiple bilateral phleboliths. Bones/Soft Tissues: There are short segment spinal rods and pedicle screws traversing the L5-S1 level. There is also a disc spacer in place. Lower thorax: Lung bases are clear. IMPRESSION: 1. There are 2 punctate stones in the mid to lower pole of the right kidney. 2. No hydronephrosis or hydroureter 3. Normal appendix. ED NOTE Observed: 08/04/2018 Status: COMPLETED Source: [place] 8:55 PM [facility] REPOSIT[facility] HNO ID: [id number] Author: Fiona AminRn) ALE Choe Service: Emergency Medicine Author Type: Registered Nurse Type: ED Notes Filed: 08/04/2018 9:05 PM Note Text: Pt to CT via cart EKG (AK,AV,EU,FV,HL,ALLY,MM,SP) Observed: Status: F Source: [place] 08/04/2018 8:39 PM [facility] OTHER CAMPUS REPOSITORY NAME : ATTILA DEL CID PID : [id number] : 1970 Gender : Male Race : ORD : [id number] Procedure Date : Aug 04 2018 20:39 Edit Date : Aug 08 2018 16:29 Diagnosis:BASELINE ARTIFACT NORMAL SINUS RHYTHM MODERATE VOLTAGE CRITERIA FOR LVH, MAY BE NORMAL VARIANT BORDERLINE ECG WHEN COMPARED WITH ECG OF 02-MAY-2016 01:16, NO SIGNIFICANT CHANGE WAS FOUND Confirmed by MD Clements Vinayak A. ([id number]) on 08/08/2018 4:29:40 PM Ventricular Rate : 80 BPM Atrial Rate : 80 BPM P-R Interval : 162 ms QRS Duration : 78 ms Q-T Interval : 374 ms QTC Calculation(Bezet) : 431 ms P [place] : 3 degrees R [place]wood : 4 degrees T [place] : -3 degrees Test Reason : Chest Pain Location : 150 : [facility] ED Overread By : MD Clements Vinayak A. Editted By : MD Clements Vinayak A. Referred By : GALILEO RUVALCABA Acquired by : Justina Bauer ED NOTE Observed: 08/04/2018 Status: COMPLETED Source: [place] 8:34 PM [facility] REPOSITORY HNO ID: [id number] Author: Fiona (Rn) Дмитрий RN Service: Emergency Medicine Author Type: Registered Nurse Type: ED Notes Filed: 08/04/2018 9:06 PM Note Text: While initiating IV pt c/o chest pain, reports he had to take a Nitro yesterday for similar symptoms. Pt placed on environmental monitoring technician. Dr Ruvalcaba notified, EKG ordered. URINALYSIS ROUTINE Collected: 08/04/2018 Status: F Source: [facility] 8:30 PM HEALTH SYSTEM REPOSITORY TYPE CODE TESTS RESULT OUT OF RANGE REFERENCE UNITS LAB LCOLR(CHELA NC) Urine Color YELLOW LAB LAPPU(CHELA NC) Urine 2+ Appearance (SLT CLOUDY) LAB LGLUR(CHELA Negative NC) Glucose Urine NEGATIVE LAB LKETO(CHELA Negative NC) TRACE Abnormal Ketone Urine LAB LHGBU(CHELA Negative NC) Abnormal Hemoglobin,Urin TRACE-INTACT e LAB LPRTU(CHELA Negative NC) Protein Urine NEGATIVE LAB LNITR(CHELA Negative NC) Nitrites Urine NEGATIVE LAB LBILU(CHELA Negative NC) Bilirubin Urine NEGATIVE LAB LSPG(LOIN 1.005-1.030 C) 1.020 Specific [place], Ur LAB LPHUR(CHELA 5.0-8.0 NC) 7.5 pH,Urine LAB LUROB(CHELA 0.0-1.0 EU/dL NC) 0.2 Urobilinogen,Ur LAB LLEUK(CHELA Negative NC) Leukocytes NEGATIVE Esterase LAB LWBCU(CHELA 0-5 /hpf NC) WBC, 0-2 Urine LAB LRBCU(CHELA 0-3 /hpf NC) 0-3 RBC,Urine LAB LEPIT(CHELA 0-5 /hpf NC) Ep 0-2 Cells Urine LAB LBACT(CHELA None NC) Bacteria Urine Occasional LAB LAMPH(CHELA None NC) FEW Abnormal Amorphous Phosphates Performed By: #### LURIN #### [place] [address] ED NOTE Observed: 08/04/2018 Status: COMPLETED Source: [place] 8:20 PM [facility] REPOSITORY HNO ID: [id number] Author: Fiona AminRn) ALE Choe Service: Emergency Medicine Author Type: Registered Nurse Type: ED Notes Filed: 08/04/2018 8:21 PM Note Text: Patient informed: the name of medication, why we are giving it, possible side effects, what they may expect to feel, and was offered a chance to ask questions, prior to the administration of Zofran, Toradol, Morphine. ED PROV NOTE Observed: 08/04/2018 Status: COMPLETED Source: [place] 8:13 PM [facility] REPOSITORY HNO ID: [id number] Author: Galileo Ruvalcaba MD Service: Emergency Medicine Author Type: Physician Type: ED Provider Notes Filed: 08/04/2018 9:43 PM Note Text: ED Provider Note Patient Name: Attila Del Cid SERVICE DATE: 08/04/18 History Patient presents with: Flank Pain Attila Del Cid is a 48 year old male with history of multiple chronic medical problems who presents with right flank pain atruamaitc. Patient has tried nothing. Patient can't get comfortable. - Symptoms began 6 hours prior to arrival. Onset was gradual. - Severity: severe - Timing: constant - Quality: sharp - Pain is exacerbated by palpation. Pain radiates to nowhere. - Pain is not exacerbated by movement. - Symptoms are associated with back pain and nausea. - Symptoms are not associated with bloody/discolored urine, diarrhea, dysuria, fever, rash, urgency, urinary frequency and urinary retention. - Improved by nothing. - Not improved by nothing. Later to the nursing staff while starting blood work, patient mentioned he had some chest pain earlier in the day. He has taken nitroglycerin. He has known coronary disease. No current chest pain or chest pressure, or neck or arm or jaw discomfort when I ask him. EKG is done. Sinus rhythm. No acute ischemia. PAST MEDICAL HISTORY Diagnosis Date - Acute right flank pain 03/25/2018 - Aneurysm of ascending aorta (HCC) - Aortic aneurysm (HCC) - Arthritis - Atrial fibrillation (HCC) - Calculi, ureter - Calculus of kidney - Hematuria - Hypertension - Kidney stones 03/25/2018 - Pneumonia - Psychiatric disorder anxiety - Renal calculus PAST SURGICAL HISTORY Procedure Laterality Date - BACK SURGERY HX 2015 FUSION, L4-L5 - COLONOSCOP W/ OR W/O BRSH SPEC 05/14/2014 Colonoscopy - EGD W/O OR W/BRUSH/WASH 05/14/2014 EGD - FRAGMENTING/KIDNEY STONE Right 2016 Lithotripsy - KNEE SURGERY HX Right 03/2017 patella replacement - [place] ANESTH,KNEE JOINT; NOS 12/2017 Left - REMOVAL OF KIDNEY STONE 04/2018 FAMILY HISTORY Problem Relation Age of Onset - Diabetes Mother - Colon Cancer Mother - Heart disease Mother - Hypertension Mother - Diabetes Sister - Skin Cancer Father Social History Social History Main Topics - Smoking status: Never Smoker - Smokeless tobacco: Never Used - Alcohol use No - Drug use: No - Sexual activity: Not on file ALLERGIES Allergen Reactions - Atorvastatin Other: See Comments Chest pain - Celebrex [Celecoxib] Vomiting Nausea - Clonidine Rash - Fentanyl GI Upset - Levofloxacin Rash pt reports to [facility] PT 04-13-2017 - Penicillin G Rash - Relpax [Eletriptan * Vomiting Nausea - Topamax [Topiramate] Vomiting - Vicodin [Hydrocodon* Vomiting - Wellbutrin [Bupropi* Vomiting Nausea Review of Systems Constitutional: Negative for diaphoresis and fever. HENT: Negative for dental problem, ear pain, rhinorrhea and sore throat. Eyes: Negative for pain and discharge. Respiratory: Negative for cough, chest tightness and shortness of breath. Cardiovascular: Negative for chest pain, palpitations and leg swelling. Gastrointestinal: Negative for abdominal pain, diarrhea, nausea and vomiting. Endocrine: Negative for polyphagia and polyuria. Genitourinary: Positive for flank pain. Negative for difficulty urinating, dysuria, frequency and urgency. Musculoskeletal: Negative for back pain, gait problem and neck pain. Skin: Negative for rash and wound. Allergic/Immunologic: Negative for immunocompromised state. Neurological: Negative for dizziness, seizures, weakness and headaches. Hematological: Does not bruise/bleed easily. Psychiatric/Behavioral: Negative for agitation and confusion. All other systems reviewed and are negative. Physical Exam BP 144/105 Pulse 114 Temp (Src) 97.6 (Tympanic) Resp 20 Ht 5' 11 (1.80m) Wt 234 lb (106.1kg) SpO2 100% BMI 32.65 kg/(m2). Physical Exam Constitutional: He is oriented to person, place, and time. He appears well-developed and well-nourished. No distress. HENT: Head: Normocephalic and atraumatic. Mouth/Throat: No oropharyngeal exudate. Eyes: Pupils are equal, round, and reactive to light. EOM are normal. Right eye exhibits no discharge. Left eye exhibits no discharge. Neck: Normal range of motion. Neck supple. No tracheal deviation present. Cardiovascular: Normal rate, regular rhythm, normal heart sounds and intact distal pulses. No murmur heard. Pulmonary/Chest: No stridor. No respiratory distress. He has no wheezes. He has no rales. Abdominal: Soft. Bowel sounds are normal. He exhibits no distension and no mass. There is no tenderness. There is no rebound and no guarding. Mild right flank pop/back pain. No rashes seen Musculoskeletal: Normal range of motion. He exhibits no edema or deformity. Neurological: He is alert and oriented to person, place, and time. He exhibits normal muscle tone. Coordination normal. CN II-VII intact, swallowing intact Skin: Skin is warm and dry. No rash noted. Psychiatric: He has a normal mood and affect. Judgment normal. Nursing note and vitals reviewed. Diagnostic Testing ED Labs Ordered and Reviewed - No data to display Procedures ED Course / Clinical Impression Clinical Impressions as of Aug 04 2143 Flank pain MDM / Disposition / Plan IV fluids, analgesics, CT flank to evaluate for ureterolithiasis. Chest pain was evaluated with EKG, chest x-ray, troponin. All of these are unremarkable. He's not experience recurrent chest pain. He has occasional angina home, this does not appear significantly different or appear to represent unstable angina or acute coronary syndrome. All labs unremarkable. Pain improved after analgesics in the ED. CT scan with punctate lesions in the kidney, but no ureterolithiasis. Safe for outpatient follow-up. I do not feel he warrants inpatient admission at this time. Discharged with analgesics, antiemetics and close outpatient follow-up with PCP. His last narcotic prescription was July 01, over one month ago. Short supply of 12 tablets given. Understands need to follow up with PCP for further pain management and intervention. Disposition discharge. The patient was DISCHARGED: Counseled patient regarding lab results AND radiology results AND suspected diagnosis AND need for follow- up. Discharged home with verbal and written instructions. They were instructed to return as needed for persistent or worsening symptoms or any new concerns. Condition at time of disposition: improved and stable SIGNATURE: Galileo Ruvalcaba MD EKG Interpretation: RHYTHM: Normal sinus rhythm at 80 beats per minute AXIS: Normal axis INTERVALS: Normal IL interval QRS COMPLEX: Normal ST SEGMENT: Normal ST-T segments QT INTERVAL: Normal COMPARED WITH PRIOR: unchanged from prior Galileo Ruvalcaba MD [id number]/04/[id number] HEMOGRAM/DIFF Collected: 08/04/2018 Status: F Source: [facility] 8:13 PM HEALTH SYSTEM REPOSITORY TYPE CODE TESTS RESULT OUT OF REFERENCE UNITS RANGE LAB LWBC(LOINC 4.8-10.8 thou/cmm ) WBC 7.0 LAB LRBC(LOINC 4.60-6.20 mil/cmm ) RBC 5.22 LAB LHGB(LOINC 14.0-18.0 g/dL ) Low Hgb 13.3 LAB LHCT(LOINC 42.0-52.0 % ) Hct 42.3 LAB LMCV(LOINC 80.0-94.0 fl ) MCV 81.0 LAB LMCH(LOINC 27.0-31.0 pg ) Low MCH 25.5 LAB LMCHC(LOIN 32.0-36.0 % C) Low MCHC 31.4 LAB LRDW(LOINC 11.5-15.9 % ) RDW 15.2 LAB LPLT(LOINC 150-400 thou/cmm ) Platelet 325 LAB LMPV(LOINC 7.1-10.5 fl ) MPV 8.9 LAB LSEGT(LOIN % C) Seg Neutrophil 47.6 LAB LLYMP(LOIN % C) Lymphocyte 39.5 LAB LMNO(LOINC % ) Monocyte 10.2 LAB RENETTA(LOINC % ) Eosinophil 2.1 LAB LBASO(LOIN % C) Basophil 0.6 LAB LSEGN(LOIN 3.00-5.67 thou/cmm C) Abs. Neut (ANC) 3.33 LAB LLYMN(LOIN 1.50-3.65 thou/cmm C) Abs. Lymph 2.77 LAB LMONN(LOIN 0.20-1.00 thou/cmm C) Abs. [place] 0.71 LAB LEOSN(LOIN 0.00-0.41 thou/cmm C) Abs. Eosin 0.15 LAB LBASN(LOIN 0.00-0.08 thou/cmm C) Abs. Baso 0.04 Performed By: #### LCBCD #### [facility] [address] [place] [address] COMPREHENSIVE PANEL Collected: 08/04/2018 Status: F Source: [facility] 8:13 PM HEALTH SYSTEM REPOSITORY TYPE CODE TESTS RESULT OUT OF REFERENCE UNITS RANGE LAB NATURAL SCIENCE MANAGER(LOINC) 136-145 mEq/L Sodium Blood 137 LAB LK(LOINC) 3.5-5.1 mEq/L Potassium Blood 4.0 LAB LCL(LOINC) 98-107 mEq/L Chloride High Blood 108 LAB LCO2(LOINC 21-32 mEq/L ) CO2 Blood 28 LAB LGLU(LOINC 70-99 mg/dL ) Glucose Blood 85 LAB LBUN(LOINC 7-25 mg/dL ) BUN Blood 21 LAB LCREA(LOIN 0.67-1.17 mg/dL C) Creatinine Blood 1.13 LAB LCA(LOINC) 8.5-10.1 mg/dL Calcium Blood 9.2 LAB LALB(LOINC 3.4-5.0 g/dL ) Albumin Blood 3.6 LAB LTP(LOINC) 6.4-8.2 g/dL Total Protein 6.9 LAB LAST(LOINC 15-37 U/L ) AST-SGOT Blood 28 LAB LALT(LOINC 14-63 U/L ) ALT-SGPT Blood 35 LAB LALKP(LOIN 46-116 U/L C) Alk Phosphatase 85 LAB LBILT(LOIN 0.2-1.0 mg/dL C) Total Bilirubin 0.3 LAB LANGP(LOIN 8-20 C) Low Anion Gap 6 LAB LBNCR(LOIN 10-20 C) BUN/Creatinine 19 Ratio Performed By: #### LP14 #### [place] [address] LIPASE BLOOD Collected: 08/04/2018 Status: F Source: [facility] 8:13 PM HEALTH SYSTEM REPOSITORY TYPE CODE TESTS RESULT OUT OF REFERENCE UNITS RANGE LAB LLIP(LOINC) 73-393 U/L Lipase Blood 201 Performed By: #### LLIP #### [place] [address] MDRD EGFR Collected: 08/04/2018 Status: F Source: [facility] 8:13 HEALTH SYSTEM REPOSITORY TYPE CODE TESTS RESULT OUT OF RANGE REFERENCE UNITS LAB LGFRF(LOINC >60mL/min/1.73m ) 2 eGFR >60 Result Comment: If the patient is , multiply the result by 1.210. Performed By: #### LGFR #### [place] [address] TROPONIN I Collected: 08/04/2018 Status: F Source: [facility] 8:13 HEALTH SYSTEM REPOSITORY TYPE CODE TESTS RESULT OUT OF REFERENCE UNITS RANGE LAB LTRP(LOINC) <=0.07 ng/mL Troponin I <0.03 Performed By: #### LTRP #### [place] [address] XR CHEST 1 VIEW Observed: 08/02/2018 Status: F Source: [facility] 3:03 PM [facility]OUNDATION REPOSITORY ORIGINAL XR CHEST 1 VIEW, 08/02/2018 3:09 PM INDICATION: chest pain COMPARISON: 12 days previously FINDINGS: The lungs and pleural spaces are clear. The cardiac silhouette is within normal size limits. The pulmonary vasculature is normal in appearance IMPRESSION: Clear lungs. Interpreted By: Audrey Arellano MD Preliminary Report By: Audrey Arellano MD Electronically Signed By: Audrey Arellano MD Dictated Date: 08/02/2018 3:12:07 PM Prelim Date: 08/02/2018 3:12:07 PM Sign Date: 08/02/2018 3:12:30 PM CBC Collected: 08/02/2018 Status: F Source: [facility] 2:41 PM [facility] REPOSITORY TYPE CODE TESTS RESULT OUT OF REFERENCE UNITS RANGE LAB WBC(LOINC) 4.60-10.80 10 3/mcL WBC 8.90 LAB RBCCT(LOINC 4.04-6.13 10 6/mcL ) RBC 5.00 LAB HGB(LOINC) 14.0-18.0 G/dL Low Hgb 12.7 LAB HCT(LOINC) 42.0-52.0 % Low Hct 40.1 LAB MCV(LOINC) 80.0-94.0 fL MCV 80.2 LAB MCH(LOINC) 27.0-31.2 pg Low MCH 25.4 LAB MCHC(LOINC) 31.8-35.4 G/dL Low MCHC 31.6 LAB RDW(LOINC) 11.5-14.5 % High RDW 16.6 LAB PLT(LOINC) 130-400 10 3/mcL Platelet 339 LAB MPV(LOINC) 7.4-10.4 fL Low MPV 6.9 Performed By: #### CBC, ADIFF, ANEU #### [facility] [address] [place], [place] [address] #### BMP, GFR, TROP, PBNP #### [address] [address] .AUTO DIFF Collected: 08/02/2018 Status: F Source: [facility] 2:41 PM [facility] REPOSITORY TYPE CODE TESTS RESULT OUT OF REFERENCE UNITS RANGE LAB PAZ(LOINC) 37.0-80.0 % Neutrophil % 51.0 LAB LYM(LOINC) 10.0-50.0 % Lymphocyte % 39.5 LAB MON(LOINC) 1.7-13.0 % Monocyte % 8.4 LAB EO(LOINC) 0.0-7.0 % Eosinophil % 0.6 LAB BAS(LOINC) 0.0-2.5 % Basophil % 0.5 LAB ABLYM(LOIN 0.77-3.85 10 3/mcL C) Lymphocyte, 3.50 Absolute LAB REJI(LOINC 0.15-1.00 10 3/mcL ) Monocyte, 0.80 Absolute LAB AEOS(LOINC 0.00-0.40 10 3/mcL ) Eosinophil, 0.10 Absolute LAB ABAS(LOINC 0.00-0.19 10 3/mcL ) Basophil, 0.00 Absolute Performed By: #### CBC, ADIFF, ANEU #### [address] [address] #### BMP, GFR, TROP, PBNP #### [address] [address] .NEUABS Collected: 08/02/2018 Status: F Source: [facility] 2:41 [facility] [place] REPOSITORY TYPE CODE TESTS RESULT OUT OF REFERENCE UNITS RANGE LAB ANEU(LOINC) 2.85-6.16 10 3/mcL Neutrophil, 4.60 Absolute Performed By: #### CBC, ADIFF, ANEU #### [address] [address] #### BMP, GFR, TROP, PBNP #### [address] [address] BMP Collected: 08/02/2018 Status: F Source: [facility] 2:41 [facility] [place] REPOSITORY TYPE CODE TESTS RESULT OUT OF REFERENCE UNITS RANGE LAB GLU(LOINC) 70-105 mg/dL Low Glucose Level 59 LAB NA(LOINC) 136-145 mmol/L Sodium Level 142 LAB K(LOINC) 3.5-5.1 mmol/L Low Potassium Level 3.1 LAB CL(LOINC) 98-107 mmol/L Chloride 105 LAB CO2(LOINC) 22-29 mmol/L CO2 27 LAB EBAL(LOINC mEq/L ) Electrolyte Balance 10.0 LAB BUN(LOINC) 7-18 mg/dL BUN High 24 LAB CRE(LOINC) 0.70-1.30 mg/dL Creatinine Lvl (s) 0.97 LAB BC(LOINC) 7-27 ratio BUN/Creatinine 25 Ratio LAB CA(LOINC) 8.4-10.2 mg/dL Calcium Lvl 9.1 Performed By: #### RADHA CARRERO, ANEU #### [place] [address] [address] #### BMP, GFR, TROP, PBNP #### [facility] [address] [place] [address] .GFR Collected: 08/02/2018 Status: F Source: [facility] 2:41 PM [facility]ATION REPOSITORY TYPE CODE TESTS RESULT OUT OF REFERENCE UNITS RANGE LAB GFRAA(LOINC ml/min/1.73 ) sqm GFR 100 Hungarian Result Comment: GFR Population mean for , Non- Americans Ages 20-29 = 116 mL/min/1.73 sq.m. Ages 30-39 = 107 mL/min/1.73 sq.m. Ages 40-49 = 99 mL/min/1.73 sq.m. Ages 50-59 = 93 mL/min/1.73 sq.m. Ages 60-69 = 85 mL/min/1.73 sq.m. Ages 70+ = 75 mL/min/1.73 sq.m. Chronic Kidney Disease: Less than 60 mL/min/1.73 square meters End Stage Renal Disease: Less than 15 mL/min/1.73 square meters LAB GFRNO(LOINC) ml/min/1.73sqm GFR Non- 83 Result Comment: GFR Population mean for , Non- Americans Ages 20-29 = 116 mL/min/1.73 sq.m. Ages 30-39 = 107 mL/min/1.73 sq.m. Ages 40-49 = 99 mL/min/1.73 sq.m. Ages 50-59 = 93 mL/min/1.73 sq.m. Ages 60-69 = 85 mL/min/1.73 sq.m. Ages 70+ = 75 mL/min/1.73 sq.m. Chronic Kidney Disease: Less than 60 mL/min/1.73 square meters End Stage Renal Disease: Less than 15 mL/min/1.73 square meters Performed By: #### ALISE, ADALBERTO, ANEU #### [place] [id number] #### BMP, GFR, TROP, PBNP #### [place] [address] TROP Collected: 08/02/2018 Status: F Source: [facility] 2:41 [facility] [place] REPOSITORY TYPE CODE TESTS RESULT OUT OF REFERENCE UNITS RANGE LAB TROP(LOINC) 0.000-0.040 ng/mL Troponin <0.020 Result Comment: Troponin I reference range: 0.00-0.040 ng/mL Negative and non-diagnostic. >0.040 ng/mL Consistent with cardiac damage, increased clinical risk and possibility of myocardial infarction. Serial measurements, a rise & fall in test results, clinical history, appropriate symptoms and/or ECG changes may help assess possibility of MA. *Other non-acute coronary syndrome conditions such as CHF, myocarditis, pulmonary emboli, sepsis and cardiac surgery could result in myocardial damage and increased troponin levels. Performed By: #### CBC ADLABERTO, ANEU #### [place] [address] #### BMP, GFR, TROP, PBNP #### [place] [address] PBNP Collected: 08/02/2018 Status: F Source: [facility] 2:[address] [place] [address] REPOSITORY TYPE CODE TESTS RESULT OUT OF REFERENCE UNITS RANGE LAB PBNP(LOINC) 0-125 pg/mL N-Terminal 78 proBNP Result Comment: NT-proBNP results of less than 300 pg/mL effectively rules out acute congestive heart failure with 99% negative predictive value. Performed By: #### CBC, ADIFF, ANEU #### [place] [address] #### BMP, GFR, TROP, PBNP #### [place] [address] PROGRESS Observed: 07/28/2018 Status: COMPLETED Source: [place] 7:22 PM [facility] REPOSITORY HNO ID: [id number] Author: Yinka Herrera Service: (none) Author Type: Physician Filler Machine Operator Type: Progress Notes Filed: 07/29/2018 7:26 AM Note Text: 07/28/2018 Patient presents with: Chest Congestion: cough x 6 days SUBJECTIVE: This is a 48 year old that is here today for Complaint(s) of cough and chest congestion x 6 days. He had a CXR done at [facility] and was told he had a spot that could be the start of pneumonia- he was not prescribed any antibiotics. He presented to the ER with chest pain-referred to cardiology. Cough is productive. Chest pain is improved. Cardiac w/u was negative at that time. PMH of afib. PMH of aortic aneurysm-4.6 cm- meeting with cardiothoracic surgeon in [place]. Patient has an appointment with cardiology tomorrow. PAST MEDICAL HISTORY Diagnosis Date - Acute right flank pain 03/25/2018 - Aneurysm of ascending aorta (HCC) - Aortic aneurysm (HCC) - Arthritis - Atrial fibrillation (HCC) - Calculi, ureter - Calculus of kidney - Hematuria - Hypertension - Kidney stones 03/25/2018 - Pneumonia - Psychiatric disorder anxiety - Renal calculus ALLERGIES Atorvastatin; Celebrex [Celecoxib]; Clonidine; Fentanyl; Levofloxacin; Penicillin G; Relpax [Eletriptan Hbr]; Topamax [Topiramate]; Vicodin [Hydrocodone-Acetaminophen]; Wellbutrin [Bupropion Hcl] MEDICATIONS Current Outpatient Prescriptions: sotalol (BETAPACE) 120 mg tablet Take 120 mg by mouth twice daily. promethazine (PHENERGAN) 25 mg tablet Take 1 tablet by mouth every 4 hours as needed. ondansetron orally disintegrating (ZOFRAN ODT) 4 mg disintegrating tablet Take 1 tablet by mouth every 4 hours as needed for Nausea/Vomiting. atorvastatin (LIPITOR) 20 mg tablet every day escitalopram oxalate (LEXAPRO) 10 mg tablet every day amLODIPine (NORVASC) 5 mg tablet Take 5 mg by mouth once daily. BABY ASPIRIN ORAL Take 1 tablet by mouth once daily. gabapentin (NEURONTIN) 300 mg capsule Take 100 mg by mouth daily at bedtime. apixaban (ELIQUIS) 5 mg tab tab(s) Take by mouth twice daily. meclizine (ANTIVERT) 12.5 mg tab Take 2 tablets by mouth twice daily as needed. lisinopril (ZESTRIL, PRINIVIL) 20 mg tablet Take 1 tablet by mouth once daily. pantoprazole DR (PROTONIX) 40 mg tablet Take 1 tablet by mouth once daily. albuterol HFA (PROVENTIL HFA, VENTOLIN HFA) 90 mcg/actuation inhaler Inhale 2 Puffs as instructed every 4 hours as needed. methocarbamol (ROBAXIN) 750 mg tablet Take 1 tablet by mouth four times daily. (Patient not taking: Reported on 07/28/2018 ) tamsulosin ER (FLOMAX) 0.4 mg cp24 every day No current facility-administered medications for this visit. SOCIAL HISTORY Social History Marital status: Spouse name: Years of education: Number of children: 1 Social History Main Topics Smoking status: Never Smoker Smokeless tobacco: Never Used Alcohol use: No Drug use: No Other Topics Concern Caffeine Concern Yes Comment:low REVIEW OF SYSTEMS All other reviewed and negative other than HPI. OBJECTIVE: BP 142/100 Pulse 88 Temp 37.1 ?C (98.8 ?F) (Tympanic) Resp 16 Wt 106.1 kg (234 lb) SpO2 99% BMI 32.64 kg/m? APPEARANCE Well appearing, alert, in no acute distress, well-hydrated, well nourished. EYES PERRLA, conjunctiva and sclera normal. EARS External ears normal, canals clear NOSE/SINUS Nares normal. Septum midline. Mucosa normal. No drainage or sinus tenderness. THROAT normal, no erythema NECK Supple, no adenopathy; thyroid symmetric, normal size, no bruits HEART RRR with normal S1 and S2 LUNG clear to auscultation. + slightly diminished breath sounds left base. ASSESSMENT/PLAN: 1. Lower respiratory infection - ICD9: 519.8, ICD10: J22 (primary diagnosis) Advise close f/u with PCP for recheck - DOXYCYCLINE MONOHYDRATE 100 MG CAPSULE - PREDNISONE 20 MG TABLET 2. Essential hypertension - ICD9: 401.9, ICD10: I10 Keep f/u with cardiology tomorrow The patient indicates understanding of these issues and agrees with the plan. Reviewed red flags and when to seek care sooner. KEYLA Woods Observed: 07/28/2018 Status: COMPLETED Source: [place] 7:15 PM [facility] REPOSITORY Office Visit (WSTR) ATTILA DEL CID ([id number]) 1970 M Date Time Provider Department 07/28/18 7:15 PM YINKA HERRERA) [facility] During your visit today, we recorded the following information about you: Temperature Pulse Respiration Blood pressure 98.8 degrees 88/minute 16/minute 142/100 Weight 106.1 kg Yinka Herrera PA-C 07/29/2018 7:26 AM Signed 07/28/2018 Patient presents with: Chest Congestion: cough x 6 days SUBJECTIVE: This is a 48 year old that is here today for Complaint(s) of cough and chest congestion x 6 days. He had a CXR done at [facility] and was told he had a spot that could be the start of pneumonia-he was not prescribed any antibiotics. He presented to the ER with chest pain-referred to cardiology. Cough is productive. Chest pain is improved. Cardiac w/u was negative at that time. PMH of afib. PMH of aortic aneurysm-4.6 cm- meeting with cardiothoracic surgeon in [place]. Patient has an appointment with cardiology tomorrow. PAST MEDICAL HISTORY Diagnosis Date - Acute right flank pain 03/25/2018 - Aneurysm of ascending aorta (HCC) - Aortic aneurysm (HCC) - Arthritis - Atrial fibrillation (HCC) - Calculi, ureter - Calculus of kidney - Hematuria - Hypertension - Kidney stones 03/25/2018 - Pneumonia - Psychiatric disorder anxiety - Renal calculus ALLERGIES Atorvastatin; Celebrex [Celecoxib]; Clonidine; Fentanyl; Levofloxacin; Penicillin G; Relpax [Eletriptan Hbr]; Topamax [Topiramate]; Vicodin [Hydrocodone-Acetaminophen]; Wellbutrin [Bupropion Hcl] MEDICATIONS Current Outpatient Prescriptions: sotalol (BETAPACE) 120 mg tablet Take 120 mg by mouth twice daily. promethazine (PHENERGAN) 25 mg tablet Take 1 tablet by mouth every 4 hours as needed. ondansetron orally disintegrating (ZOFRAN ODT) 4 mg disintegrating tablet Take 1 tablet by mouth every 4 hours as needed for Nausea/Vomiting. atorvastatin (LIPITOR) 20 mg tablet every day escitalopram oxalate (LEXAPRO) 10 mg tablet every day amLODIPine (NORVASC) 5 mg tablet Take 5 mg by mouth once daily. BABY ASPIRIN ORAL Take 1 tablet by mouth once daily. gabapentin (NEURONTIN) 300 mg capsule Take 100 mg by mouth daily at bedtime. apixaban (ELIQUIS) 5 mg tab tab(s) Take by mouth twice daily. meclizine (ANTIVERT) 12.5 mg tab Take 2 tablets by mouth twice daily as needed. lisinopril (ZESTRIL, PRINIVIL) 20 mg tablet Take 1 tablet by mouth once daily. pantoprazole DR (PROTONIX) 40 mg tablet Take 1 tablet by mouth once daily. albuterol HFA (PROVENTIL HFA, VENTOLIN HFA) 90 mcg/actuation inhaler Inhale 2 Puffs as instructed every 4 hours as needed. methocarbamol (ROBAXIN) 750 mg tablet Take 1 tablet by mouth four times daily. (Patient not taking: Reported on 07/28/2018 ) tamsulosin ER (FLOMAX) 0.4 mg cp24 every day No current facility-administered medications for this visit. SOCIAL HISTORY Social History Marital status: Spouse name: Years of education: Number of children: 1 Social History Main Topics Smoking status: Never Smoker Smokeless tobacco: Never Used Alcohol use: No Drug use: No Other Topics Concern Caffeine Concern Yes Comment:low REVIEW OF SYSTEMS All other reviewed and negative other than HPI. OBJECTIVE: BP 142/100 Pulse 88 Temp 37.1 ?C (98.8 ?F) (Tympanic) Resp 16 Wt 106.1 kg (234 lb) SpO2 99% BMI 32.64 kg/m? APPEARANCE Well appearing, alert, in no acute distress, well- hydrated, well nourished. EYES PERRLA, conjunctiva and sclera normal. EARS External ears normal, canals clear NOSE/SINUS Nares normal. Septum midline. Mucosa normal. No drainage or sinus tenderness. THROAT normal, no erythema NECK Supple, no adenopathy; thyroid symmetric, normal size, no bruits HEART RRR with normal S1 and S2 LUNG clear to auscultation. + slightly diminished breath sounds left base. ASSESSMENT/PLAN: 1. Lower respiratory infection - ICD9: 519.8, ICD10: J22 (primary diagnosis) Advise close f/u with PCP for recheck - DOXYCYCLINE MONOHYDRATE 100 MG CAPSULE - PREDNISONE 20 MG TABLET 2. Essential hypertension - ICD9: 401.9, ICD10: I10 Keep f/u with cardiology tomorrow The patient indicates understanding of these issues and agrees with the plan. Reviewed red flags and when to seek care sooner. Yinka Herrera PA-C Referring Provider: SELF [[id number]] Allergies As of Date: 07/28/2018 Noted Allergy Reaction ATORVASTATIN 10/09/2017 14 - Other: See Comments Comments: Chest pain CELEBREX (CELECOXIB) 07/17/2016 11 - Vomiting Comments: Nausea CLONIDINE 07/17/2016 2 - Rash FENTANYL 07/17/2016 8 - GI Upset LEVOFLOXACIN 04/13/2017 2 - Rash Comments: pt reports to [facility] PT 6--2017 PENICILLIN G 12/30/2013 2 - Rash RELPAX (ELETRIPTAN HBR) 07/17/2016 11 - Vomiting Comments: Nausea TOPAMAX (TOPIRAMATE) 07/17/2016 11 - Vomiting VICODIN (HYDROCODONE-ACETAMINOPHE*12/30/2013 11 - Vomiting WELLBUTRIN (BUPROPION HCL) 07/17/2016 11 - Vomiting Comments: Nausea Date Reviewed: 07/28/2018 Reviewed by: Chinyere Momin Ma - Fully Assessed Reason for Visit: Chest Congestion [236] Cmt: cough x 6 days Primary Visit Diagnosis:Lower respiratory infection [J22] Other Visit Diagnosis:Essential hypertension [I10] Order(s):doxycycline monohydrate (MONODOX) 100 mg capsuleTake 1 capsule by mouth twice daily for 10 days.Disp: 20 capsuleRfl: 0 predniSONE (DELTASONE) 20 mg tabletTake 2 tablets by mouth once daily for 5 days.Disp: 10 tabletRfl: 0 Prescriptions as of 07/28/2018 Sig: SOTALOL 120 MG TABLET Take 120 mg by mouth twice da* PROMETHAZINE 25 MG TABLET Take 1 tablet by mouth every * ONDANSETRON 4 MG DISINTEGRATI* Take 1 tablet by mouth every * ATORVASTATIN 20 MG TABLET every day ESCITALOPRAM 10 MG TABLET every day AMLODIPINE 5 MG TABLET Take 5 mg by mouth once daily. BABY ASPIRIN ORAL Take 1 tablet by mouth once d* GABAPENTIN 300 MG CAPSULE Take 100 mg by mouth daily at* APIXABAN 5 MG TABLET Take by mouth twice daily. MECLIZINE 12.5 MG TABLET Take 2 tablets by mouth twice* LISINOPRIL 20 MG TABLET Take 1 tablet by mouth once d* PANTOPRAZOLE 40 MG TABLET,DEL* Take 1 tablet by mouth once d* ALBUTEROL SULFATE HFA 90 MCG/* Inhale 2 Puffs as instructed * DOXYCYCLINE MONOHYDRATE 100 M* Take 1 capsule by mouth twice* PREDNISONE 20 MG TABLET Take 2 tablets by mouth once * METHOCARBAMOL 750 MG TABLET Take 1 tablet by mouth four t* Patient not taking: Reported on 07/28/2018 TAMSULOSIN 0.4 MG CAPSULE every day Problem List As Of Date 07/28/2018 Noted Resolved Primary osteoarthritis of right knee [M17.11] INVALID FOR* Chest pain at rest [R07.9] INVALID FOR* HTN (hypertension) [I10] INVALID FOR* Atrial fibrillation (HCC) [I48.91] INVALID FOR* More... 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 Renal calculus, right [N20.0] INVALID FOR* TIA (transient ischemic attack) [G45.9] INVALID FOR* Priority: A Calculus of kidney [N20.0] INVALID FOR* More... Prescriptions ordered this encounter Disp Refills Start End DOXYCYCLINE MONOHYDRATE 100 MG CAPSU* 20 c* 0 07/28/2018 08/07/2018 Route: ORAL Sig: Take 1 capsule by mouth twice daily for 10 days. PREDNISONE 20 MG TABLET 10 t* 0 07/28/2018 08/02/2018 Route: ORAL Sig: Take 2 tablets by mouth once daily for 5 days. Encounter Status:Closed by YINKA HERRERA PA-C on 07/29/18 XR CHEST 1 VIEW Observed: 07/21/2018 Status: F Source: [facility] 9:55 PM [facility] REPOSITORY ORIGINAL XR CHEST 1 VIEW CLINICAL STATEMENT: chest pain. COMPARISON: Portable chest, 07/18/2018, CT angiography of the chest, 07/15/2018 FINDINGS: The cardiac and mediastinal contours are stable with widening of the mediastinum related to known thoracic aortic aneurysm. No pulmonary vascular congestion. Hazy RIGHT infrahilar opacity has developed in the interval favoring focal airspace disease or subsegmental atelectasis. There is no dense consolidation, large pleural effusion, or pneumothorax. No displaced fracture. IMPRESSION: Hazy RIGHT infrahilar airspace disease or atelectasis. Follow- up to clinical resolution is recommended. I have personally reviewed the images of this examination and agree with the resident's findings and interpretation. Interpreted By: Katherine Flores MD Preliminary Report By: Joao Luevano MD Electronically Signed By: Katherine Flores MD Dictated Date: 07/21/2018 9:59:39 PM Prelim Date: 07/21/2018 10:01:36 PM Sign Date: 07/21/2018 11:45:39 PM CBC Collected: 07/21/2018 Status: F Source: [facility] 9:51 PM [facility] REPOSITORY TYPE CODE TESTS RESULT OUT OF REFERENCE UNITS RANGE LAB WBC(LOINC) 4.60-10.80 10 3/mcL WBC 8.20 LAB RBCCT(LOINC 4.04-6.13 10 6/mcL ) RBC 5.05 LAB HGB(LOINC) 14.0-18.0 G/dL Low Hgb 12.9 LAB HCT(LOINC) 42.0-52.0 % Low Hct 39.9 LAB MCV(LOINC) 80.0-94.0 fL Low MCV 79.0 LAB MCH(LOINC) 27.0-31.2 pg Low MCH 25.5 LAB MCHC(LOINC) 31.8-35.4 G/dL MCHC 32.3 LAB RDW(LOINC) 11.5-14.5 % High RDW 15.4 LAB PLT(LOINC) 130-400 10 3/mcL Platelet 319 LAB MPV(LOINC) 7.4-10.4 fL Low MPV 7.1 Performed By: #### CBC, ADIFF, ANEU #### [facility] [address] [place] [id number] #### BMP, TROP, GFR #### [address] [address] .AUTO DIFF Collected: 07/21/2018 Status: F Source: [facility] 9:51 PM [facility] REPOSITORY TYPE CODE TESTS RESULT OUT OF REFERENCE UNITS RANGE LAB PAZ(LOINC) 37.0-80.0 % Neutrophil % 52.6 LAB LYM(LOINC) 10.0-50.0 % Lymphocyte % 34.9 LAB MON(LOINC) 1.7-13.0 % Monocyte % 10.1 LAB EO(LOINC) 0.0-7.0 % Eosinophil % 1.2 LAB BAS(LOINC) 0.0-2.5 % Basophil % 1.2 LAB ABLYM(LOIN 0.77-3.85 10 3/mcL C) Lymphocyte, 2.90 Absolute LAB REJI(LOINC 0.15-1.00 10 3/mcL ) Monocyte, 0.80 Absolute LAB AEOS(LOINC 0.00-0.40 10 3/mcL ) Eosinophil, 0.10 Absolute LAB ABAS(LOINC 0.00-0.19 10 3/mcL ) Basophil, 0.10 Absolute Performed By: #### CBC, ADIFF, ANEU #### [address] [address] #### BMP, TROP, GFR #### [place] [address] .NEUABS Collected: 07/21/2018 Status: F Source: [facility] 9:51 PM [facility] REPOSITORY TYPE CODE TESTS RESULT OUT OF REFERENCE UNITS RANGE LAB ANEU(LOINC) 2.85-6.16 10 3/mcL Neutrophil, 4.30 Absolute Performed By: #### CBC, ADIFF, ANEU #### [address] [address] #### BMP, TROP, GFR #### [place] [address] BMP Collected: 07/21/2018 Status: F Source: [facility] 9:51 [facility] REPOSITORY TYPE CODE TESTS RESULT OUT OF REFERENCE UNITS RANGE LAB GLU(LOINC) 70-105 mg/dL Glucose Level 98 LAB NA(LOINC) 136-145 mmol/L Sodium Level 142 LAB K(LOINC) 3.5-5.1 mmol/L Low Potassium Level 3.1 LAB CL(LOINC) 98-107 mmol/L Chloride 104 LAB CO2(LOINC) 22-29 mmol/L CO2 24 LAB EBAL(LOINC mEq/L ) Electrolyte Balance 14.0 LAB BUN(LOINC) 7-18 mg/dL BUN 14 LAB CRE(LOINC) 0.70-1.30 mg/dL Creatinine Lvl (s) 0.95 LAB BC(LOINC) 7-27 ratio BUN/Creatinine 15 Ratio LAB CA(LOINC) 8.4-10.2 mg/dL Calcium Lvl 9.8 Performed By: #### CBC, ADIFF, ANEU #### [address] [address] #### BMP, TROP, GFR #### [place] [address] TROP Collected: 07/21/2018 Status: F Source: [facility] [employer] 9:51 PM [facility] REPOSITORY TYPE CODE TESTS RESULT OUT OF REFERENCE UNITS RANGE LAB TROP(LOINC) 0.000-0.040 ng/mL Troponin <0.020 Result Comment: Troponin I reference range: 0.00-0.040 ng/mL Negative and non-diagnostic. >0.040 ng/mL Consistent with cardiac damage, increased clinical risk and possibility of myocardial infarction. Serial measurements, a rise & fall in test results, clinical history, appropriate symptoms and/or ECG changes may help assess possibility of MA. *Other non-acute coronary syndrome conditions such as CHF, myocarditis, pulmonary emboli, sepsis and cardiac surgery could result in myocardial damage and increased troponin levels. Performed By: #### ALISE, RADHA, ANEU #### [address] [address] #### BMP, TROP, GFR #### [place] [address] .GFR Collected: 07/21/2018 Status: F Source: [facility] [employer] 9:51 PM [facility] REPOSITORY TYPE CODE TESTS RESULT OUT OF REFERENCE UNITS RANGE LAB GFRAA(LOINC ml/min/1.73 ) sqm GFR 103 Hungarian Result Comment: GFR Population mean for , Non- Americans Ages 20-29 = 116 mL/min/1.73 sq.m. Ages 30-39 = 107 mL/min/1.73 sq.m. Ages 40-49 = 99 mL/min/1.73 sq.m. Ages 50-59 = 93 mL/min/1.73 sq.m. Ages 60-69 = 85 mL/min/1.73 sq.m. Ages 70+ = 75 mL/min/1.73 sq.m. Chronic Kidney Disease: Less than 60 mL/min/1.73 square meters End Stage Renal Disease: Less than 15 mL/min/1.73 square meters LAB GFRNO(LOINC) ml/min/1.73sqm GFR Non- 85 Result Comment: GFR Population mean for , Non- Americans Ages 20-29 = 116 mL/min/1.73 sq.m. Ages 30-39 = 107 mL/min/1.73 sq.m. Ages 40-49 = 99 mL/min/1.73 sq.m. Ages 50-59 = 93 mL/min/1.73 sq.m. Ages 60-69 = 85 mL/min/1.73 sq.m. Ages 70+ = 75 mL/min/1.73 sq.m. Chronic Kidney Disease: Less than 60 mL/min/1.73 square meters End Stage Renal Disease: Less than 15 mL/min/1.73 square meters Performed By: #### CBC, ADIFF, ANEU #### [facility] [address] [address] #### BMP, TROP, GFR #### [place] [address] 12 LEAD ELECTROCARDIOGRAM Observed: 07/21/2018 Status: F Source: [place] 3:01 PM [facility] REPOSITORY [facility] Cardiovascular Services [address] [place] [id number] 12 Lead EKG 07/18/18 1510 MR#: [id number] Acct: [id number] Name: ATTILA DEL CID Rep #: [id number] : 1970 48 From: Asael Hale MD Attending Dr: Status: DEP ER Ordering Dr: Chavez Byrd MD Date: 07/18/18 Location: ED Sex: M C Admitted: Test Reason : CP Blood Pressure : / mmHG Vent. Rate : 098 BPM Atrial Rate : 098 BPM P-R Int : 174 ms QRS Dur : 072 ms QT Int : 350 ms P-R-T Axes : 026 002 007 degrees QTc Int : 446 ms Normal sinus rhythm Minimal voltage criteria for LVH, may be normal variant Borderline ECG Confirmed by ALEXIA CONNORASAEL ([id number]), dictionary editor RICCO LEWIS ([id number]) on 07/21/2018 3:01:28 PM Referred By: Confirmed By:ASAEL HALE MD 07/21/18 1501 Date Asael Hale MD CC: Nyla Bearden MD; Chavez Byrd MD Signed ORTHOPEDIC VISIT Observed: 07/21/2018 Status: F Source: [place] REPORT 10:39 AM [facility] REPOSITORY [facility] Orthopaedics AND Sports Medicine [facility] [address] [place] [address] OFFICE VISIT Date of Service: 07/07/18 MR#: [id number] Acct: [id number] Name: ATTILA DEL CID Rep #: [id number] : 1970 Provider: Claribel Batista DO Age/Sex: 48/M Location: [facility] [place]: Signed Intake Intake Visit Reasons: RIGHT SHOULDER Is patient in pain?: Yes Allergies clonidine Allergy (Intermediate, Verified 07/18/18 15:37) rash levofloxacin [From Levaquin] Allergy (Verified 07/18/18 15:37) Rash Penicillins Allergy (Verified 07/18/18 15:37) Hives bupropion Adverse Reaction (Intermediate, Verified 07/18/18 15:37) vomiting celecoxib [From Celebrex] Adverse Reaction (Intermediate, Verified 07/18/18 15:37) vomiting eletriptan Adverse Reaction (Intermediate, Verified 07/18/18 15:37) Vomiting topiramate [From Topamax] Adverse Reaction (Intermediate, Verified 07/18/18 15:37) vomiting hydrocodone bitartrate [From Vicodin] Adverse Reaction (Verified 07/18/18 15:37) Nausea Medications Pantoprazole Sodium [Protonix] 40 mg PO DAILY 04/22/16 [History Confirmed 07/18/18] Albuterol Inhaler [Ventolin Hfa] 1 - 2 puff INHALATION Q4H PRN PRN #1 inhaler 07/15/17 [Rx Confirmed 07/18/18] Apixaban [Eliquis] 5 mg PO BID 09/21/17 [History Confirmed 07/18/18] amlodipine 5 mg tablet 5 mg PO DAILY #90 tab 02/26/18 [Rx Confirmed 07/18/18] Aspirin [Aspir-Low] 81 mg PO QDAY 04/09/18 [History Confirmed 07/18/18] atorvastatin 20 mg tablet 20 mg PO QDAY #90 tab 04/28/18 [Rx Confirmed 07/18/18] escitalopram 10 mg tablet 15 mg PO QDAY #90 tab 04/28/18 [Rx Confirmed 07/18/18] Sotalol Hydrochloride [Betapace (Beta Carolee)] 120 mg PO BID #90 tab 05/18/18 [Rx Confirmed 07/12/18] Peg 400/Hypromellose/Glycerin [Visine Tears Drops] 15 ml OP QWEEK PRN 05/29/18 [History Confirmed 07/18/18] Gabapentin [Neurontin] 300 mg PO QHS 06/17/18 [History Confirmed 07/18/18] meclizine 12.5 mg tablet 12.5 mg PO BID PRN #60 tab 07/03/18 [Rx Confirmed 07/18/18] Lisinopril 20 mg PO DAILY 07/12/18 [History Confirmed 07/18/18] PFSH Medical History SVT (supraventricular tachycardia) (Chronic) LORETTA (obstructive sleep apnea) (Chronic) Atherosclerotic heart disease of [place] coronary artery without angina pectoris (Chronic) Nephrolithiasis (Chronic) HTN (hypertension) (Chronic) Anxiety (Chronic) PAF (paroxysmal atrial fibrillation) (Chronic) GERD (gastroesophageal reflux disease) (Chronic) Obesity (BMI 30-39.9) (Chronic) BPPV (benign paroxysmal positional vertigo) (Chronic) HLD (hyperlipidemia) (Chronic) Thoracic aortic aneurysm without rupture (Chronic) Surgical History History of left heart catheterization (Chronic) History of cardiac radiofrequency ablation (Resolved) laser lithotripsy (Acute 06/2018) H/O arthroscopic knee surgery (Resolved) History of back surgery (Resolved) History of right knee surgery (Resolved) Family History Brother Hypertension Mother Heart disease Colon cancer Sister Diabetes Sister Diabetes Sister Diabetes Social History Smoking Status: Never smoker alcohol intake: never substance use type: does not use caffeine: No what type of physical activity do you participate in: walking frequency: 1-2 times per week duration: 15-30 minutes/day seatbelt use: always do you feel safe at home: Yes HPI RIGHT SHOULDER: Details: ATTILA DEL CID is a 48 year old M here today for increased right shoulder pain. Patient notes that he dislocated his shoulder last week. Patient notes that he reduced his shoulder and went to the ED. He states that he has dislocated his shoulder 2-3 times now. This most recent dislocation was from pulling on a pipe that let go. Patient had xrays which are here for review. He has been wearing his sling except when sleeping. Patient has pain over his anterior shoulder and lateral shoulder. Patient denies any bruising. He has numbness into all fingers except for thumb. Patient had an MRI previously. He is taking tylenol for pain. ROS Const Reports system reviewed and no additional complaints, except as docu Eyes Reports system reviewed and no additional complaints, except as docu ENT Reports system reviewed and no additional complaints, except as docu Card Reports system reviewed and no additional complaints, except as docu Resp Reports system reviewed and no additional complaints, except as docu GI Reports system reviewed and no additional complaints, except as docu Reports system reviewed and no additional complaints, except as docu Musc Reports joint pain, Reports limited joint movement Skin/Breast Reports system reviewed and no additional complaints, except as docu Neuro Yes system reviewed and no additional complaints, except as docu Psych Reports system reviewed and no additional complaints, except as docu Endo Reports system reviewed and no additional complaints, except as docu Ortho Exam Right Shoulder Skin/Wound: Yes CDI Testing: Positive translation ap: anterior and Apprehension Test SHOULDER: no rom due to pain, he is neuro intact. Assessment AND Plan 1. 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 All questions answered. Patient in agreement of plan. Explained that since his last dislocation was over 10 yrs ago we will begin with PT for strengthening, if that is not helpful we will order and arthrogram. Instructed to remain in the sling and begin PT in a week and after two weeks he can begin to wean out of the sling. He also has brachial plexus signs today. Follow up in a month with Harry or sooner if pain, swelling, numbness or associated symptoms, or concerns develop. All questions answered. Patient in agreement of plan. 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 07/21/18 1039 <Electronically signed by Claribel Batista DO> Date Claribel Batista DO Cosigner Signature: Date (if applicable) CC: EMERGENCY DEPARTMENT Observed: 07/18/2018 Status: F Source: [facility] SUMMARY 11:51 PM [facility] REPOSITORY [facility] Medical Records Department [address] [place] [address] Emergency Department Summary 07/18/18 1525 MR#: [id number] Acct: [id number] Name: ATTILA DEL CID Rep #: [id number] : 1970 48 From: Chavez Byrd MD PCP: Nyla Bearden MD Status: DEP ER - ER Visit Summary Date of Service: 07/18/18 Chief Complaint: Chest pain History of Present Illness: The patient is a 48 M this is been having sharp intermittent chest pain for last hour. Patient states he has a cardiac history states he had a prior MA. However the medical records show that he has had workups including a recent cardiac catheterization March of this year at [facility] showing no coronary disease, nor any type of blockage. Patient denies ever having any cardiac stents. He is never had a CABG. He is on Eliquis for intermittent A. fib. He does have a known thoracic aneurysm. Patient states that he is recently been in the hospital both here and at [facility]. Denies any prior history of PE or DVT Physical Examination: Middle-aged white male no acute distress. Vital signs are stable and afebrile. 99% on room air no signs of hypoxia. HEENT exam unremarkable. Neck nontender no lymphadenopathy. Chest wall nontender. Heart regular rate and rhythm no murmur. Abdomen soft nontender normal bowel sounds no peritoneal signs extremities moves all 4. Calves nontender. No edema no cords. Equal symmetrical radial pulses. 5 out of 5 bottle washer strength. Back nontender. Neurologically is awake and alert with no focal motor or sensory deficits. Test Results: He will undergo cardiac workup. CBC unremarkable his has a chronic anemia with a hemoglobin of 12. Electrolytes unremarkable. Normal gap and creatinine. Troponin normal. EKG shows a sinus rhythm rate of 98. No change from prior EKG earlier this month. LVH. Chest x-ray shows thoracic aneurysm but no acute abnormality otherwise. Emergency Department Course and Treatment: He was treated with aspirin p.o. repeat exam the patient is doing well at 1550. I went over all test results of both he and his . He will be discharged home to follow-up as an outpatient. Treatment Plan: I spoke the patient's acid condenser Dr. Jesse Stokes. He knows the patient very well. He states the patient had extensive invasive and noninvasive cardiac workups which show no signs of coronary disease. Disposition: Discharge Impression: Chest pain of uncertain etiology History of intermittent A. fib Anticoagulated on Eliquis This note was generated with [employer] dictation software. It may contain incorrect words, spelling, and punctuation that were not noted in review of the chart prior to signing ED Disposition - Plan for ED Patient: Chief Complaint: Chest Pain Referrals: Nyla Bearden MD [Primary Care Provider] - What to do if you have Problems For any increased pain, shortness of breath, bleeding, nausea or vomiting, chest pain, or any unexpected problems, contact your Primary Care Provider. Call [facility] ([phone]) or report to the closest Emergency Room. Call 911 if necessary. 07/18/18 9488 <Electronically signed by Chavez Byrd MD> Date Chavez Byrd MD Cosigner Signature (If Indicated): Date CC: Nyla Bearden MD DISCHARGE INSTRUCTION Observed: 07/18/2018 Status: F Source: [place] 11:51 PM [facility] REPOSITORY [facility] Medical Records Department [address] [place] [address] Discharge Instruction 07/18/18 1600 MR#: [id number] Acct: [id number] Name: ATTILA DEL CID Rep #: [id number] : 1970 48 From: Chavez Byrd MD PCP: Nyla Bearden MD Status: DEP ER ED Disposition - Plan for ED Patient: Disposition: Home or Assisted Living Chief Complaint: Chest Pain Instructions: ED Chest Pain Atypical Unkn Cause Referrals: Nyla Bearden MD [Primary Care Provider] - 3-5 Days if not improving Jesse Stokes MD [STAFF PHYSICIAN] - As Needed Additional Instructions: Continue taking your current medications as prescribed. Follow-up with your doctor What to do if you have Problems For any increased pain, shortness of breath, bleeding, nausea or vomiting, chest pain, or any unexpected problems, contact your Primary Care Provider. Call [facility] ([phone]) or report to the closest Emergency Room. Call 911 if necessary. 07/18/18 7948 <Electronically signed by Chavez Byrd MD> Date Chavez Byrd MD Cosigner Signature (If Indicated): Date CC: Nyla Bearden MD XR CHEST 1 VIEW Observed: 07/18/2018 Status: F Source: [facility] 11:11 PM [facility] REPOSITORY ORIGINAL XR CHEST 1 VIEW CLINICAL STATEMENT: Chest pain. Shortness of breath. COMPARISON: CT angiography the chest, 07/15/2018, chest radiographs, 07/14/2018 FINDINGS: The appearance of the cardiac and mediastinal contours is unchanged with convex margin of the RIGHT hilum relating to known thoracic aortic aneurysm. No pulmonary vascular congestion is seen. There is n o focal consolidation, pleural effusion, or pneumothorax. No acute osseous abnormality. IMPRESSION: No acute findings or significant change compared to 07/14/2018. Unchanged widening of the mediastinum relates to known thoracic aortic aneurysm. I have personally reviewed the images of this examination and agree with the resident's findings and interpretation Interpreted By: Luis Weeks MD Preliminary Report By: Joao Luevano MD Electronically Signed By: Luis Weeks MD Dictated Date: 07/18/2018 11:14:43 PM Prelim Date: 07/18/2018 11:16:44 PM Sign Date: 07/19/2018 12:10:47 AM CBC Collected: 07/18/2018 Status: F Source: [facility] 10:57 PM [facility] REPOSITORY TYPE CODE TESTS RESULT OUT OF REFERENCE UNITS RANGE LAB WBC(LOINC) 4.60-10.80 10 3/mcL WBC 6.60 LAB RBCCT(LOINC 4.04-6.13 10 6/mcL ) RBC 5.14 LAB HGB(LOINC) 14.0-18.0 G/dL Low Hgb 13.0 LAB HCT(LOINC) 42.0-52.0 % Low Hct 40.6 LAB MCV(LOINC) 80.0-94.0 fL Low MCV 78.9 LAB MCH(LOINC) 27.0-31.2 pg Low MCH 25.2 LAB MCHC(LOINC) 31.8-35.4 G/dL MCHC 31.9 LAB RDW(LOINC) 11.5-14.5 % High RDW 15.1 LAB PLT(LOINC) 130-400 10 3/mcL Platelet 343 LAB MPV(LOINC) 7.4-10.4 fL Low MPV 7.0 Performed By: #### CBC, ADIFF, ANEU #### [address] [address] #### TROP, BMP, GFR #### [address] [address] .AUTO DIFF Collected: 07/18/2018 Status: F Source: [facility] 10:57 PM [facility] REPOSITORY TYPE CODE TESTS RESULT OUT OF REFERENCE UNITS RANGE LAB PAZ(LOINC) 37.0-80.0 % Neutrophil % 46.8 LAB LYM(LOINC) 10.0-50.0 % Lymphocyte % 39.8 LAB MON(LOINC) 1.7-13.0 % Monocyte % 11.3 LAB EO(LOINC) 0.0-7.0 % Eosinophil % 1.5 LAB BAS(LOINC) 0.0-2.5 % Basophil % 0.6 LAB ABLYM(LOIN 0.77-3.85 10 3/mcL C) Lymphocyte, 2.60 Absolute LAB REJI(LOINC 0.15-1.00 10 3/mcL ) Monocyte, 0.70 Absolute LAB AEOS(LOINC 0.00-0.40 10 3/mcL ) Eosinophil, 0.10 Absolute LAB ABAS(LOINC 0.00-0.19 10 3/mcL ) Basophil, 0.00 Absolute Performed By: #### CBC, ADIFF, ANEU #### [place] [address] #### TROP, BMP, GFR #### [place] [address] .NEUABS Collected: 07/18/2018 Status: F Source: [facility] 10:57 [facility] [place] REPOSITORY TYPE CODE TESTS RESULT OUT OF REFERENCE UNITS RANGE LAB ANEU(LOINC) 2.85-6.16 10 3/mcL Neutrophil, 3.10 Absolute Performed By: #### CBC, ADIFF, ANEU #### [place] [address] #### TROP, BMP, GFR #### [place] [address] TROP Collected: 07/18/2018 Status: F Source: [facility] 10:57 [facility] [place] REPOSITORY TYPE CODE TESTS RESULT OUT OF REFERENCE UNITS RANGE LAB TROP(LOINC) 0.000-0.040 ng/mL Troponin <0.020 Result Comment: Troponin I reference range: 0.00-0.040 ng/mL Negative and non-diagnostic. >0.040 ng/mL Consistent with cardiac damage, increased clinical risk and possibility of myocardial infarction. Serial measurements, a rise & fall in test results, clinical history, appropriate symptoms and/or ECG changes may help assess possibility of MA. *Other non-acute coronary syndrome conditions such as CHF, myocarditis, pulmonary emboli, sepsis and cardiac surgery could result in myocardial damage and increased troponin levels. Performed By: #### CBC, ADIFF, ANEU #### [address] [address] #### TROP, BMP, GFR #### [address] [address] BMP Collected: 07/18/2018 Status: F Source: [facility] 10:57 PM [facility] REPOSITORY TYPE CODE TESTS RESULT OUT OF REFERENCE UNITS RANGE LAB GLU(LOINC) 70-105 mg/dL Glucose Level 93 LAB NA(LOINC) 136-145 mmol/L Sodium Level 143 LAB K(LOINC) 3.5-5.1 mmol/L Potassium Level 3.8 LAB CL(LOINC) 98-107 mmol/L Chloride 106 LAB CO2(LOINC) 22-29 mmol/L CO2 23 LAB EBAL(LOINC mEq/L ) Electrolyte Balance 14.0 LAB BUN(LOINC) 7-18 mg/dL BUN High 20 LAB CRE(LOINC) 0.70-1.30 mg/dL Creatinine Lvl (s) 0.88 LAB BC(LOINC) 7-27 ratio BUN/Creatinine 23 Ratio LAB CA(LOINC) 8.4-10.2 mg/dL Calcium Lvl 9.0 Performed By: #### CBC, ADIFF, ANEU #### [address] [address] #### TROP, BMP, GFR #### [address] [address] .GFR Collected: 07/18/2018 Status: F Source: [facility] 10:57 PM [facility] REPOSITORY TYPE CODE TESTS RESULT OUT OF REFERENCE UNITS RANGE LAB GFRAA(LOINC ml/min/1.73 ) sqm GFR 112 Hungarian Result Comment: GFR Population mean for , Non- Americans Ages 20-29 = 116 mL/min/1.73 sq.m. Ages 30-39 = 107 mL/min/1.73 sq.m. Ages 40-49 = 99 mL/min/1.73 sq.m. Ages 50-59 = 93 mL/min/1.73 sq.m. Ages 60-69 = 85 mL/min/1.73 sq.m. Ages 70+ = 75 mL/min/1.73 sq.m. Chronic Kidney Disease: Less than 60 mL/min/1.73 square meters End Stage Renal Disease: Less than 15 mL/min/1.73 square meters LAB GFRNO(LOINC) ml/min/1.73sqm GFR Non- 92 Result Comment: GFR Population mean for , Non- Americans Ages 20-29 = 116 mL/min/1.73 sq.m. Ages 30-39 = 107 mL/min/1.73 sq.m. Ages 40-49 = 99 mL/min/1.73 sq.m. Ages 50-59 = 93 mL/min/1.73 sq.m. Ages 60-69 = 85 mL/min/1.73 sq.m. Ages 70+ = 75 mL/min/1.73 sq.m. Chronic Kidney Disease: Less than 60 mL/min/1.73 square meters End Stage Renal Disease: Less than 15 mL/min/1.73 square meters Performed By: #### CBC, ADIFF, ANEU #### [address] [address] #### TROP, BMP, GFR #### [address] [address] CBC W/DIFF, AUTOMATED Collected: 07/18/2018 Status: F Source: [place] 3:13 PM [facility] REPOSITORY TYPE CODE TESTS RESULT OUT OF RANGE REFERENCE UNITS LAB L100.1000 4.4-11.0 K/mm3 Normal WBC 6.3 LAB L100.1200 4.6-6.2 M/mm3 Normal RBC 4.81 LAB L100.1300 13.0-16.5 g/dl Low HGB 12.1 LAB L100.1400 40-54 % Low HCT 38.8 LAB L100.1500 80-94 fL Normal MCV 80.7 LAB L100.1600 27.0-32.0 pg Low MCH 25.2 LAB L100.1700 32-36 g/gl Low MCHC 31.2 LAB L100.1810 11.6-14.6 % Normal RDW CV 14.2 LAB L100.1820 35.1-43.9 fl Normal RDW SD 41.5 LAB L100.1900 150-450 K/mm3 Normal PLT 315 LAB L100.2000 6.2-12.0 fl Normal MPV 8.9 LAB L100.2100 47-70 % Normal NEUT% 52.6 LAB L100.2200 19-41 % Normal LY% 29.9 LAB L100.2300 0-10 % High MONO% 15.3 LAB L100.2400 0-5 % Normal EO% 1.4 LAB L100.2500 0-1 % Normal BASO% 0.5 LAB L100.2550 0.0-0.9 % Normal IM GRAN % 0.300 Result Comment: IG% - Immature Granulocytes (promyelocytes, myelocytes and metamyelocytes) > 1% indicates that a LEFT SHIFT is Present. LAB L100.2620 2.0-7.7 X10 3/uL Normal Absolute Neut 3.3 LAB L100.2720 0.83-4.51 X10 3/ul Normal Absolute Lymph 1.89 Performed By: #### L100.0100 #### [facility] [address] [place], [address] BASIC METABOLIC Collected: 07/18/2018 Status: F Source: [place] PROFILE (BMP) 3:13 PM [facility] REPOSITORY TYPE CODE TESTS RESULT OUT OF RANGE REFERENCE UNITS LAB L501.0100 74-106 mg/dL Normal GLU 84 Result Comment: Please note revised GLUCOSE reference range effective 2017. LAB L501.1000 7-18 mg/dL High BUN 20 LAB L501.1100 0.70-1.30 mg/dL Normal CREAT,SERUM 1.03 Result Comment: The validity of the calculated GFR AND GFRAA in patients over 70 years has not been determined. Clinical correlation is essential. LAB L501.1110 >60 mL/min Normal EST GFR 82 Result Comment: Non- GFR Calc LAB L501.1115 >60 mL/min Normal EST GFR - AA 99 Result Comment: GFR Calc LAB L501.1255 ml/min Normal Estimated CRCL 84.85 LAB L501.1300 10-20 RATIO Normal BUN/CRE 19.4 LAB L501.2200 8.5-10 mg/dL Normal .1 CA 8.9 LAB L501.5300 136-14 mmol/L Normal 5 NA 141 LAB L501.5600 3.5-5. mmol/L Normal 1 K 4.1 Result Comment: Moderate Hemolysis, Result may be falsely increased. LAB L501.5900 98-107 mmol/L High CL 110 LAB L501.6100 21.0-32.0 mmol/L Normal CO2 24.0 LAB L501.6200 5-15 Normal 7 GAP Performed By: #### L500.2500, L501.4010 #### [facility] [address] [place], [address] TROPONIN-I Collected: 07/18/2018 Status: F Source: [place] 3:13 PM [facility] REPOSITORY TYPE CODE TESTS RESULT OUT OF RANGE REFERENCE UNITS LAB L501.4010 <0.045 ng/mL Normal < 0.015 TROPONIN-I Result Comment: TROPONIN-I EXPECTED VALUES <0.045 Negative 0.045 - 0.590 Consistent with Cardiac Damage > OR = 0.600 Critical Value Not every elevated troponin is indicative of MA. These values should be used with clinical judgement in examining the patient's clinical picture for diagnosis. To establish a diagnosis of MA versus myocardial injury, there must be a demonstrated rise and/or fall in the troponin values, in addition to ischemic symptoms, EKG changes, new regional wall motion abnormality, and/or angiographical evidence. PLEASE NOTE: REFERENCE RANGES EDITED 18 Performed By: #### L500.2500, L501.4010 #### [facility] [address] [place], [address] CHEST 1 VIEW Observed: 07/18/2018 Status: F Source: [place] (PORTABLE) 3:10 PM [facility]IT[facility] Imaging Services [address] [place] [address] Chest 1 View (Portable) MR#: [id number] Acct: [id number] Name: ATTILA DEL CID Rep #: [id number] : 1970 M 48 From: Pablito Young MD PCP: Nyla Bearden MD Status: REG ER Study: Chest 1 View (Portable) Date of Exam: 07/18/18 Exam# [id number] Ordering Dr: Chavez Byrd MD STUDY: X-RAY CHEST REASON FOR EXAM: Male, 48 years old. 1 hour history of chest pain. Shortness of breath. TECHNIQUE: Single AP portable view of the chest. COMPARISON: Comparison is made with prior examination dated July 01, 2018. FINDINGS: Widening of the superior mediastinum. The patient has a left- sided SVC. There is no demonstrated pleural abnormality. Normal size heart. Normal visualized pulmonary arteries. Ectasia of the descending thoracic aorta. Normal visualized thoracic spine. Normal visualized ribs, clavicles, and shoulders. There is no demonstrated abnormality of the visualized soft tissue structures of the upper abdomen. RAD/Chest 1 View (Portable) IMPRESSION: No acute amount is seen. Electronically Signed: Pablito Young MD at 15:37 EDT Tel [phone], Service support , CC: Nyla Bearden MD; Chavez Byrd MD 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: Signed 12 LEAD ELECTROCARDIOGRAM Observed: 07/16/2018 Status: F Source: [place] 8:56 AM [facility]IT[facility] Cardiovascular Services [address] [place] [address] 12 Lead EKG 07/12/18 1458 MR#: [id number] Acct: [id number] Name: MARIA EUGENIAATTILA K Rep #: [id number] : 1970 48 From: Jesse Stokes MD Attending Dr: Status: DEP ER Ordering Dr: Attila Hutchinson DO Date: 07/12/18 Location: ED Sex: M C Admitted: Test Reason : CHEST PAIN Blood Pressure : / mmHG Vent. Rate : 073 BPM Atrial Rate : 073 BPM P-R Int : 156 ms QRS Dur : 084 ms QT Int : 408 ms P-R-T Axes : 021 015 019 degrees QTc Int : 449 ms Normal sinus rhythm Minimal voltage criteria for LVH, may be normal variant Borderline ECG Confirmed by STEVEN CONNOR, JESSE ([id number]), dictionary editor RICCO LEWIS ([id number]) on 07/16/2018 8:55:52 AM Referred By: Confirmed By:JESSE STOKES MD 07/16/18 0855 Date Jesse Stokes MD CC: Attila Hutchinson DO; Nyla Bearden MD Signed MG Collected: 07/16/2018 Status: F Source: [facility] 4:28 AM [facility] REPOSITORY TYPE CODE TESTS RESULT OUT OF REFERENCE UNITS RANGE LAB MG(LOINC) 1.6-2.4 mg/dL Magnesium Lvl 2.3 Performed By: #### MG, CMP, GFR, CBC, ADIFF, ANEU, TROPI #### [place] [address] CMP Collected: 07/16/2018 Status: F Source: [facility] 4:28 AM [facility] REPOSITORY TYPE CODE TESTS RESULT OUT OF REFERENCE UNITS RANGE LAB GLU(LOINC) 70-110 mg/dL Glucose Level 86 LAB NA(LOINC) 136-145 mEq/L Sodium Level 143 LAB K(LOINC) 3.5-5.0 mEq/L Potassium Level 4.6 LAB CL(LOINC) 98-110 mEq/L Chloride 108 LAB CO2(LOINC) 22-32 mEq/L CO2 31 LAB EBAL(LOINC 4.0-15.0 mEq/L ) Electrolyte Balance 4.0 LAB BUN(LOINC) 8.0-22.0 mg/dL BUN 17.0 LAB CRE(LOINC) 0.60-1.40 mg/dL Creatinine Lvl (s) 0.92 LAB BC(LOINC) 10.0-22.0 ratio BUN/Creatinine 18.5 Ratio LAB CA(LOINC) 8.4-10.1 mg/dL Low Calcium Lvl 8.2 LAB PROT(LOINC 6.0-8.5 G/dL ) Total Protein 6.3 LAB ALB(LOINC) 3.2-4.8 G/dL Low Albumin Level 3.1 LAB GLB(LOINC) 1.5-3.8 G/dL Globulin 3.2 LAB AG(LOINC) 0.9-1.6 ratio A/G Ratio 1.0 LAB BILT(LOINC 0.2-1.2 mg/dL ) Bili Total 0.2 LAB AP(LOINC) 38-126 U/L Alk Phos 82 LAB AST(LOINC) 8-34 U/L AST/SGOT 16 LAB ALT(LOINC) 12-55 U/L ALT/SGPT 24 Performed By: #### MG, CMP, GFR, CBC, ADIFF, ANEU, TROPI #### [place] [address] .GFR Collected: 07/16/2018 Status: F Source: [facility] 4:28 AM [facility] TYPE CODE TESTS RESULT OUT OF REFERENCE UNITS RANGE LAB GFRAA(LOINC ml/min/1.73 ) sqm GFR >60 Hungarian Result Comment: GFR Population mean for , Non- Americans Ages 20-29 = 116 mL/min/1.73 sq.m. Ages 30-39 = 107 mL/min/1.73 sq.m. Ages 40-49 = 99 mL/min/1.73 sq.m. Ages 50-59 = 93 mL/min/1.73 sq.m. Ages 60-69 = 85 mL/min/1.73 sq.m. Ages 70+ = 75 mL/min/1.73 sq.m. Chronic Kidney Disease: Less than 60 mL/min/1.73 square meters End Stage Renal Disease: Less than 15 mL/min/1.73 square meters LAB GFRNO(LOINC) ml/min/1.73sqm GFR Non- >60 Result Comment: GFR Population mean for , Non- Americans Ages 20-29 = 116 mL/min/1.73 sq.m. Ages 30-39 = 107 mL/min/1.73 sq.m. Ages 40-49 = 99 mL/min/1.73 sq.m. Ages 50-59 = 93 mL/min/1.73 sq.m. Ages 60-69 = 85 mL/min/1.73 sq.m. Ages 70+ = 75 mL/min/1.73 sq.m. Chronic Kidney Disease: Less than 60 mL/min/1.73 square meters End Stage Renal Disease: Less than 15 mL/min/1.73 square meters Performed By: #### MG, CMP, GFR, CBC, ADIFF, ANEU, TROPI #### [address] [address] CBC Collected: 07/16/2018 Status: F Source: [facility] 4:28 AM [facility] REPOSITORY TYPE CODE TESTS RESULT OUT OF REFERENCE UNITS RANGE LAB WBC(LOINC) 4.50-10.80 10 3/mcL WBC 6.00 LAB RBCCT(LOINC 4.50-6.00 10 6/mcL ) RBC 4.73 LAB HGB(LOINC) 13.0-17.5 G/dL Low Hgb 12.1 LAB HCT(LOINC) 40.0-52.0 % Low Hct 37.4 LAB MCV(LOINC) 81.0-100.0 fL Low MCV 79.0 LAB MCH(LOINC) 27.0-33.0 pg Low MCH 25.6 LAB MCHC(LOINC) 32.0-36.0 G/dL MCHC 32.4 LAB RDW(LOINC) 11.5-15.5 % RDW 14.4 LAB PLT(LOINC) 150-450 10 3/mcL Platelet 297 LAB MPV(LOINC) 6.4-10.5 fL MPV 7.1 Performed By: #### MG, CMP, GFR, CBC, ADIFF, ANEU, TROPI #### [address] [address] .AUTO DIFF Collected: 07/16/2018 Status: F Source: [facility] 4:28 AM [facility] REPOSITORY TYPE CODE TESTS RESULT OUT OF REFERENCE UNITS RANGE LAB PAZ(LOINC) 50.0-75.0 % Low Neutrophil % 48.1 LAB LYM(LOINC) 20.0-40.0 % Lymphocyte % 34.9 LAB MON(LOINC) 2.0-13.0 % Monocyte High % 13.1 LAB EO(LOINC) 0.0-6.0 % Eosinophil % 2.9 LAB BAS(LOINC) 0.0-2.5 % Basophil % 1.0 LAB ABLYM(LOIN 0.90-4.32 10 3/mcL C) Lymphocyte, 2.10 Absolute LAB REJI(LOINC 0.09-1.40 10 3/mcL ) Monocyte, 0.80 Absolute LAB AEOS(LOINC 0.00-0.65 10 3/mcL ) Eosinophil, 0.20 Absolute LAB ABAS(LOINC 0.00-0.27 10 3/mcL ) Basophil, 0.10 Absolute Performed By: #### MG, CMP, GFR, CBC, ADIFF, ANEU, TROPI #### [place] [address] .NEUABS Collected: 07/16/2018 Status: F Source: [facility] 4:28 AM [facility] REPOSITORY TYPE CODE TESTS RESULT OUT OF REFERENCE UNITS RANGE LAB ANEU(LOINC) 2.25-8.10 10 3/mcL Neutrophil, 2.90 Absolute Performed By: #### MG, CMP, GFR, CBC, ADIFF, ANEU, TROPI #### [place] [address] TROPI Collected: 07/16/2018 Status: F Source: [facility] 4:28 AM [facility] REPOSITORY TYPE CODE TESTS RESULT OUT OF REFERENCE UNITS RANGE LAB TROPI(LOINC 0.000-0.040 ng/mL ) Troponin I <0.015 Result Comment: Troponin I reference ranges (06/28/14): 0.00-0.040 ng/mL Negative and non-diagnostic. >0.040 ng/mL Consistent with cardiac damage, increased clinical risk and possibility of myocardial infarction. Serial measurements, a rise & fall in test results, clinical history, appropriate symptoms and/or ECG changes may help assess possibility of MA. *Other non-acute coronary syndrome conditions such as CHF, myocarditis, pulmonary emboli, sepsis and cardiac surgery could result in myocardial damage and increased troponin levels. Performed By: #### MG, CMP, GFR, CBC, ADIFF, ANEU, TROPI #### [place] [address] TROP Collected: 07/15/2018 Status: F Source: [facility] 9:07 AM [facility] REPOSITORY TYPE CODE TESTS RESULT OUT OF REFERENCE UNITS RANGE LAB TROP(LOINC) 0.000-0.040 ng/mL Troponin <0.020 Result Comment: Troponin I reference range: 0.00-0.040 ng/mL Negative and non-diagnostic. >0.040 ng/mL Consistent with cardiac damage, increased clinical risk and possibility of myocardial infarction. Serial measurements, a rise & fall in test results, clinical history, appropriate symptoms and/or ECG changes may help assess possibility of MA. *Other non-acute coronary syndrome conditions such as CHF, myocarditis, pulmonary emboli, sepsis and cardiac surgery could result in myocardial damage and increased troponin levels. Performed By: #### TROP #### [place] [address] [place] [address] NM MYOCARDIAL SPECT Observed: 07/15/2018 Status: F Source: [place] STRESS/REST 5:32 AM [facility] REPOSITORY ORIGINAL NM MYOCARDIAL SPECT STRESS/REST CLINICAL STATEMENT: chest pain TECHNIQUE: Lexiscan dose:0.4 mg Radiopharmaceutical (stress): Tc-99m Sestamibi Dose:30.6 mCi Radiopharmaceutical (rest): Tc-99m Sestamibi Dose:10.1 mCi SPECT acquisition and processing Reconstruction and reorientation of SPECT images into short axis, vertical and horizontal long axis planes Quantitative LVEF assessment COMPARISON:None REPORT:On stress and rest images the heart appears normal in size. On gated imaging the ejection fraction is normal at 58% with normal wall motion. On stress images there is a decrease in the uptake of activity in the inferior and inferolateral, anterior and anteroseptal gómez. There is improvement in the uptake of activity in all these areas on rest images. IMPRESSION: 1. Reversible defect in the inferior, inferolateral, anterior and anteroseptal gómez suggesting ischemia in this area. 2. Normal ejection fraction of 58% with normal wall motion. Interpreted By: Donte Braxton MD Preliminary Report By: Donte Braxton MD Electronically Signed By: Donte Braxton MD Dictated Date: 07/15/2018 2:28:37 PM Prelim Date: 07/15/2018 2:28:37 PM Sign Date: 07/15/2018 2:33:49 PM TROP Collected: 07/15/2018 Status: F Source: [facility] 2:03 AM [facility] REPOSITORY TYPE CODE TESTS RESULT OUT OF REFERENCE UNITS RANGE LAB TROP(LOINC) 0.000-0.040 ng/mL Troponin <0.020 Result Comment: Troponin I reference range: 0.00-0.040 ng/mL Negative and non-diagnostic. >0.040 ng/mL Consistent with cardiac damage, increased clinical risk and possibility of myocardial infarction. Serial measurements, a rise & fall in test results, clinical history, appropriate symptoms and/or ECG changes may help assess possibility of MA. *Other non-acute coronary syndrome conditions such as CHF, myocarditis, pulmonary emboli, sepsis and cardiac surgery could result in myocardial damage and increased troponin levels. Performed By: #### TROP #### [place] [address] CT ANGIOGRAPHY CHEST Observed: 07/15/2018 Status: F Source: [place] W/CONTRAST 12:53 AM [facility] REPOSITORY ORIGINAL Clinical history: Chest pain. History of aortic aneurysm. COMPARISON: Chest x-ray on 07/14/2018. CT angiogram of the chest was performed with axial scans obtained during intravenous administration of contrast. Scans were reviewed in axial, coronal, sagittal, and three-dimensional reconstructions. T his exam was performed according to our departmental dose optimization program, and includes the following measures where applicable: automated exposure control, adjustment of the mAs and/or kVp accordi ng to patient size and/or exam, and an iterative reconstruction algorithm. Transverse diameter of the descending thoracic aorta is 4.5 cm. Descending thoracic aorta at the same levels 2 6 cm. There is no aortic dissection or rupture. The heart is mildly enlarged in a generalized manner. There is no pericardial effusion. No mediastinal mass or lymph node enlargement is present. There is no acute infiltrate or pleural fluid. No pneumothorax is present. No lung nodules are detected Pulmonary arteries are adequately opacified to evaluate for pulmonary thromboembolism. No filling defects are detected. Pulmonary arteries are normal in diameter. Chest wall structures show no sign of acute abnormality. There are no acute findings in the upper abdomen. IMPRESSION: 4.5 cm aneurysm of the ascending thoracic aorta. Mild cardiomegaly. No acute abnormality. Interpreted By: Rosales Hayes MD Preliminary Report By: Rosales Hayes MD Electronically Signed By: Rosales Hayes MD Dictated Date: 07/15/2018 1:04:23 AM Prelim Date: 07/15/2018 1:04:23 AM Sign Date: 07/15/2018 1:09:14 AM XR CHEST 2 VIEWS Observed: 07/14/2018 Status: F Source: [place] [employer] 10:01 PM [facility] REPOSITORY ORIGINAL XR CHEST 2 VIEWS PA and lateral chest CLINICAL INDICATION: CHEST PAIN COMPARISON: 12/06/2013 FINDINGS: The heart is not enlarged. There is an unusual appearance of the mediastinum with widening of the RIGHT lateral mediastinal contour perhaps related to tortuous aorta. There is also widening of the LEFT upper paratracheal soft tissues and a poorly defined aortic arch. These findings are stable since 12/06/2013. The ruben are not enlarged. The lungs are clear. There is no vascular congestion or pleural effusion. The bones are unremarkable. IMPRESSION: Unusual mediastinal contour is unchanged since 12/06/2013. The possibility of a vascular anomaly involving the aorta is raised. If the patient has not had previous evaluation of the chest wi th CT, nonemergent CT with contrast is suggested for further assessment of this finding. No acute cardiopulmonary disease. Interpreted By: Luis Weeks MD Preliminary Report By: Luis Weeks MD Electronically Signed By: Luis Weeks MD Dictated Date: 07/14/2018 10:23:20 PM Prelim Date: 07/14/2018 10:23:20 PM Sign Date: 07/14/2018 10:26:54 PM CBC Collected: 07/14/2018 Status: F Source: [facility] 9:20 PM [facility] REPOSITORY TYPE CODE TESTS RESULT OUT OF REFERENCE UNITS RANGE LAB WBC(LOINC) 4.60-10.80 10 3/mcL WBC 6.60 LAB RBCCT(LOINC 4.04-6.13 10 6/mcL ) RBC 4.77 LAB HGB(LOINC) 14.0-18.0 G/dL Low Hgb 12.3 LAB HCT(LOINC) 42.0-52.0 % Low Hct 37.6 LAB MCV(LOINC) 80.0-94.0 fL Low MCV 78.7 LAB MCH(LOINC) 27.0-31.2 pg Low MCH 25.7 LAB MCHC(LOINC) 31.8-35.4 G/dL MCHC 32.7 LAB RDW(LOINC) 11.5-14.5 % High RDW 14.6 LAB PLT(LOINC) 130-400 10 3/mcL Platelet 358 LAB MPV(LOINC) 7.4-10.4 fL Low MPV 7.1 Performed By: #### CBC, ADIFF, ANEU #### [facility] [address] [place], [place] [address] #### TROP, BMP, GFR #### [address] [address] .AUTO DIFF Collected: 07/14/2018 Status: F Source: [facility] 9:20 PM [facility] REPOSITORY TYPE CODE TESTS RESULT OUT OF REFERENCE UNITS RANGE LAB PAZ(LOINC) 37.0-80.0 % Neutrophil % 50.1 LAB LYM(LOINC) 10.0-50.0 % Lymphocyte % 37.5 LAB MON(LOINC) 1.7-13.0 % Monocyte % 8.9 LAB EO(LOINC) 0.0-7.0 % Eosinophil % 2.3 LAB BAS(LOINC) 0.0-2.5 % Basophil % 1.2 LAB ABLYM(LOIN 0.77-3.85 10 3/mcL C) Lymphocyte, 2.50 Absolute LAB REJI(LOINC 0.15-1.00 10 3/mcL ) Monocyte, 0.60 Absolute LAB AEOS(LOINC 0.00-0.40 10 3/mcL ) Eosinophil, 0.20 Absolute LAB ABAS(LOINC 0.00-0.19 10 3/mcL ) Basophil, 0.10 Absolute Performed By: #### CBC, ADIFF, ANEU #### [address] [address] #### TROP, BMP, GFR #### [place] [address] .NEUABS Collected: 07/14/2018 Status: F Source: [facility] 9:20 [facility] [place] REPOSITORY TYPE CODE TESTS RESULT OUT OF REFERENCE UNITS RANGE LAB ANEU(LOINC) 2.85-6.16 10 3/mcL Neutrophil, 3.30 Absolute Performed By: #### CBC, ADIFF, ANEU #### [address] [address] #### TROP, BMP, GFR #### [place] [address] TROP Collected: 07/14/2018 Status: F Source: [facility] 9:20 PM [facility] REPOSITORY TYPE CODE TESTS RESULT OUT OF REFERENCE UNITS RANGE LAB TROP(LOINC) 0.000-0.040 ng/mL Troponin <0.020 Result Comment: Troponin I reference range: 0.00-0.040 ng/mL Negative and non-diagnostic. >0.040 ng/mL Consistent with cardiac damage, increased clinical risk and possibility of myocardial infarction. Serial measurements, a rise & fall in test results, clinical history, appropriate symptoms and/or ECG changes may help assess possibility of MA. *Other non-acute coronary syndrome conditions such as CHF, myocarditis, pulmonary emboli, sepsis and cardiac surgery could result in myocardial damage and increased troponin levels. Performed By: #### CBC, ADIFF, ANEU #### [address] [address] #### TROP, BMP, GFR #### [address] [address] BMP Collected: 07/14/2018 Status: F Source: [facility] 9:20 PM [facility] REPOSITORY TYPE CODE TESTS RESULT OUT OF REFERENCE UNITS RANGE LAB GLU(LOINC) 70-105 mg/dL Glucose High Level 108 LAB NA(LOINC) 136-145 mmol/L Sodium Level 139 LAB K(LOINC) 3.5-5.1 mmol/L Potassium Level 4.0 LAB CL(LOINC) 98-107 mmol/L Chloride 104 LAB CO2(LOINC) 22-29 mmol/L CO2 26 LAB EBAL(LOINC mEq/L ) Electrolyte Balance 9.0 LAB BUN(LOINC) 7-18 mg/dL BUN 16 LAB CRE(LOINC) 0.70-1.30 mg/dL Creatinine Lvl (s) 0.80 LAB BC(LOINC) 7-27 ratio BUN/Creatinine 20 Ratio LAB CA(LOINC) 8.4-10.2 mg/dL Calcium Lvl 9.1 Performed By: #### CBC, ADIFF, ANEU #### [address] [address] #### TROP, BMP, GFR #### [address] [address] .GFR Collected: 07/14/2018 Status: F Source: [facility] 9:20 PM [facility] REPOSITORY TYPE CODE TESTS RESULT OUT OF REFERENCE UNITS RANGE LAB GFRAA(LOINC ml/min/1.73 ) sqm GFR 125 Hungarian Result Comment: GFR Population mean for , Non- Americans Ages 20-29 = 116 mL/min/1.73 sq.m. Ages 30-39 = 107 mL/min/1.73 sq.m. Ages 40-49 = 99 mL/min/1.73 sq.m. Ages 50-59 = 93 mL/min/1.73 sq.m. Ages 60-69 = 85 mL/min/1.73 sq.m. Ages 70+ = 75 mL/min/1.73 sq.m. Chronic Kidney Disease: Less than 60 mL/min/1.73 square meters End Stage Renal Disease: Less than 15 mL/min/1.73 square meters LAB GFRNO(LOINC) ml/min/1.73sqm GFR Non- 103 Result Comment: GFR Population mean for , Non- Americans Ages 20-29 = 116 mL/min/1.73 sq.m. Ages 30-39 = 107 mL/min/1.73 sq.m. Ages 40-49 = 99 mL/min/1.73 sq.m. Ages 50-59 = 93 mL/min/1.73 sq.m. Ages 60-69 = 85 mL/min/1.73 sq.m. Ages 70+ = 75 mL/min/1.73 sq.m. Chronic Kidney Disease: Less than 60 mL/min/1.73 square meters End Stage Renal Disease: Less than 15 mL/min/1.73 square meters Performed By: #### CBC, ADIFF, ANEU #### [address] [address] #### TROP, BMP, GFR #### [address] [address] FES Collected: 07/14/2018 Status: F Source: [facility] 9:19 PM [facility] REPOSITORY TYPE CODE TESTS RESULT OUT OF RANGE REFERENCE UNITS LAB FE(LOINC) 65-175 mcg/dL Low Iron 28 LAB IBC(LOINC) 250-450 mcg/dL TIBC 384 LAB FESAT(LOINC % ) Iron Sat 7 Performed By: #### FES #### [address] [address] MG Collected: 07/14/2018 Status: F Source: [facility] 9:19 PM [facility] REPOSITORY TYPE CODE TESTS RESULT OUT OF REFERENCE UNITS RANGE LAB MG(LOINC) 1.8-2.4 mg/dL Magnesium Lvl 1.9 Performed By: #### MG #### [address] [address] ED NOTE Observed: 07/13/2018 Status: COMPLETED Source: [place] 7:17 PM [facility] REPOSITORY HNO ID: [id number] Author: Sudha (Rn) ALE Melgar Service: Emergency Medicine Author Type: Registered Nurse Type: ED Notes Filed: 07/25/2018 1:20 AM Note Text: CHART ACCESSED FOR PI CHART AUDIT 07/25/18 @0120 ED PROV NOTE Observed: 07/13/2018 Status: COMPLETED Source: [place] 6:52 PM [facility] [place] REPOSITORY HNO ID: [id number] Author: Aurea Hua MD Service: Emergency Medicine Author Type: Physician Type: ED Provider Notes Filed: 07/13/2018 6:54 PM Note Text: ED Provider Note Patient Name: Attila Del Cid SERVICE DATE: 07/13/18 History Patient presents with: Pain (Shoulder Pain) Chief complaint right shoulder pain. Patient was moving boxes when he felt a sudden pop and pain in his right shoulder. He denies other injury. He has pain with movement. Did not try anything prior to arrival. PAST MEDICAL HISTORY Diagnosis Date - Acute right flank pain 03/25/2018 - Aneurysm of ascending aorta (HCC) - Aortic aneurysm (HCC) - Arthritis - Atrial fibrillation (HCC) - Calculi, ureter - Calculus of kidney - Hematuria - Hypertension - Kidney stones 03/25/2018 - Pneumonia - Psychiatric disorder anxiety - Renal calculus PAST SURGICAL HISTORY Procedure Laterality Date - BACK SURGERY HX 2015 FUSION, L4-L5 - COLONOSCOP W/ OR W/O BRSH SPEC 05/14/2014 Colonoscopy - EGD W/O OR W/BRUSH/WASH 05/14/2014 EGD - FRAGMENTING/KIDNEY STONE Right 2016 Lithotripsy - KNEE SURGERY HX Right 03/2017 patella replacement - [place] ANESTH,KNEE JOINT; NOS 12/2017 Left - REMOVAL OF KIDNEY STONE 04/2018 FAMILY HISTORY Problem Relation Age of Onset - Diabetes Mother - Colon Cancer Mother - Heart disease Mother - Hypertension Mother - Diabetes Sister - Skin Cancer Father Social History Social History Main Topics - Smoking status: Never Smoker - Smokeless tobacco: Never Used - Alcohol use No - Drug use: No - Sexual activity: Not on file ALLERGIES Allergen Reactions - Atorvastatin Other: See Comments Chest pain - Celebrex [Celecoxib] Vomiting Nausea - Clonidine Rash - Fentanyl GI Upset - Levofloxacin Rash pt reports to [facility] PT 04-13-2017 - Penicillin G Rash - Relpax [Eletriptan * Vomiting Nausea - Topamax [Topiramate] Vomiting - Vicodin [Hydrocodon* Vomiting - Wellbutrin [Bupropi* Vomiting Nausea Review of Systems Constitutional: Negative for fever. HENT: Negative for ear pain. Eyes: Negative for pain. Respiratory: Negative for shortness of breath. Cardiovascular: Negative for chest pain. Gastrointestinal: Negative for abdominal pain. Genitourinary: Negative for flank pain. Musculoskeletal: Negative for back pain. Skin: Negative for rash. Neurological: Negative for headaches. Psychiatric/Behavioral: Negative for agitation. Physical Exam BP 138/98 Pulse 76 Temp (Src) 97.6 (Temporal Artery) Resp 16 Ht 5' 11 (1.80m) Wt 240 lb (108.9kg) SpO2 100% BMI 33.49 kg/(m2). Physical Exam Constitutional: He is oriented to person, place, and time. He appears well-developed and well-nourished. HENT: Head: Normocephalic. Eyes: Conjunctivae are normal. Right eye exhibits no discharge. Left eye exhibits no discharge. No scleral icterus. Neck: Normal range of motion. Pulmonary/Chest: Effort normal. Musculoskeletal: Right shoulder: He exhibits decreased range of motion and tenderness. He exhibits no bony tenderness, no swelling, no effusion, no crepitus, no spasm, normal pulse and normal strength. Arms: Pain with internal rotation while in extension and lateral extension greater than 90 degrees Neurological: He is alert and oriented to person, place, and time. Skin: Skin is warm and dry. Psychiatric: He has a normal mood and affect. His behavior is normal. Diagnostic Testing ED Labs Ordered and Reviewed - No data to display Procedures ED Course / Clinical Impression Clinical Impressions as of Jul 13 1852 Sprain of right shoulder, unspecified shoulder sprain type, initial encounter MDM / Disposition / Plan MDM X-ray was unremarkable. Patient was informed that he may have torn his rotator cuff but he should just do range of motion and Tylenol at home for the next few days and follow-up if not improving. The patient was DISCHARGED: Counseled patient regarding radiology results AND need for follow-up. Discharged home with verbal and written instructions. They were instructed to return as needed for persistent or worsening symptoms or any new concerns. Condition at time of disposition: stable SIGNATURE: MD Aurea Macario MD 07/13/18 1854 SHOULDER 3V OR MORE Observed: 07/13/2018 Status: F Source: [facility] AP/TRUE AP/OTHER 6:15 PM HEALTH SYSTEM RIGHT REPOSITORY Performed at [facility] APPROVED BY: Jung Salinas MD EXAM TITLE: SHOULDER 3V OR MORE AP/TRUE AP/OTHER RIGHT DATE: 07/13/2018 18:01 INDICATION: Injury to right shoulder. Limited range of motion. COMPARISON: None. AP, oblique, and scapular Y views of the right shoulder show normal alignment. No fracture. No bone erosion or bone destruction. IMPRESSION: Negative views of right shoulder. ED NOTE Observed: 07/13/2018 Status: COMPLETED Source: [place] 6:10 PM [facility] [place] REPOSITORY HNO ID: [id number] Author: Sindy AminRn) ALE Jordan Service: (none) Author Type: Registered Nurse Type: ED Notes Filed: 07/13/2018 6:15 PM Note Text: Patient transported to radiology with Tech. ED NOTE Observed: 07/13/2018 Status: COMPLETED Source: [place] 5:57 PM [facility] [place] REPOSITORY HNO ID: [id number] Author: Sindy AminRn) ALE Jordan Service: (none) Author Type: Registered Nurse Type: ED Notes Filed: 07/13/2018 5:58 PM Note Text: Pt states moving boxes for several days C/O right shoulder pain Reports h/o shoulder dislocation EMERGENCY DEPARTMENT Observed: 07/13/2018 Status: F Source: [place] SUMMARY 12:42 AM [facility] REPOSITORY [facility] Medical Records Department [address] [place] [address] Emergency Department Summary 07/12/18 1601 MR#: [id number] Acct: [id number] Name: LUNADOLORESATTILA Rep #: [id number] : 1970 48 From: Attila Hutchinson DO PCP: Nyla Bearden MD Status: DEP ER - ER Visit Summary Date of Service: 07/12/18 Chief Complaint: Chest pain History of Present Illness: The patient is a 48 M who presents with a left-sided central chest pain. He describes it as sharp in nature. Began last night that resolved. He returned today when he was climbing some stairs. He noted some shortness of breath and some nausea. States he feels dizzy and lightheaded. He states he has a history of MA but has had negative heart catheterizations in October 2016 and March 2018. He has history of atrial fibrillation and is on Eliquis and had a cardiac ablation. The patient states that this past week he had kidney stone surgery and had to stop his Eliquis restarted yesterday. His states that she thinks he was in A. fib yesterday but he denies this. Physical Examination: Afebrile vital signs are stable Gen: Well-nourished well-developed Head: Normocephalic atraumatic Eyes: Perrl EOMI ENT: TMs clear no rhinorrhea moist mucous membranes Neck: Supple no lymphadenopathy no JVD nontender CVS: Regular rate rhythm no murmurs normal S1-S2 Respiratory: No distress clear to auscultation bilaterally chest nontender Abdomen: Soft nontender nondistended normal bowel sounds no masses Back: Nontender Extremity: Nontender no edema Skin: Normal color no rash Neuro: alert orientated 3 CN II-XII intact normal strength sensation reflexes gait cerebellar Psych: Normal affect normal mood Test Results: EKG shows a normal sinus rhythm at a rate of 73. CT Gunjan of the chest demonstrated no pulmonary embolism and his aneurysm is still 4.5 cm. Troponin negative. Hemoglobin 11.8. Normal white count. Emergency Department Course and Treatment: Patient had no events on the monitor. He has had no evidence of hypotension. Patient will be discharged home to follow-up with his doctors return if worsening or concerns. Impression: 1. Chest pain 2. Lightheadedness This note was generated with [employer] dictation software. It may contain incorrect words, spelling, and punctuation that were not noted in review of the chart prior to signing ED Disposition - Plan for ED Patient: Disposition: Home or Assisted Living Chief Complaint: Chest Pain Instructions: ED Chest Pain Atypical Unkn Cause Referrals: Nyla Bearden MD [Primary Care Provider] - 3-5 Days if not improving What to do if you have Problems For any increased pain, shortness of breath, bleeding, nausea or vomiting, chest pain, or any unexpected problems, contact your Primary Care Provider. Call [facility] ([phone]) or report to the closest Emergency Room. Call 911 if necessary. 07/13/18 0042 <Electronically signed by Attila Hutchinson DO> Date Attila Hutchinson DO Cosigner Signature (If Indicated): Date CC: Nyla Bearden MD CTA CHEST W/WO Observed: 07/12/2018 Status: F Source: [place] CONTRAST 3:42 PM [facility] REPOSITORY [facility] Imaging Services [address] [place] [address] CTA Chest W/WO Contrast MR#: [id number] Acct: [id number] Name: LUNADOLORESATTILA Abreu Rep #: [id number] : 1970 M 48 From: Vishnu Aranda MD PCP: Nyla Bearden MD Status: REG ER Study: CTA Chest W/WO Contrast Date of Exam: 07/12/18 Exam# [id number] Ordering Dr: Attila Hutchinson DO STUDY: CTA CHEST REASON FOR EXAM: Male, 48 years old. Chest pain RADIATION DOSAGE (If Supplied By Facility): CTDIvol = ( 16.67 ) mGy, DLP = ( 765.31 ) mGycm TECHNIQUE: The examination was performed with the intravenous administration of 100ml ml of Isovue 370 contrast material. Post-processing of the angiographic images was performed, with multiplanar reformation and 3D reconstruction. Individualized dose optimization techniques were used for this CT. COMPARISON: 04/01/2018 FINDINGS: There are no pulmonary infiltrates or pleural effusions. There is stable bronchiectasis noted in the lower lobes. There is no pneumothorax. There is stable aneurysmal dilatation of the ascending aorta, measuring 4.5 cm. 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 There are no filling defects in the pulmonary arteries to suggest pulmonary embolus. Images through the upper abdomen demonstrate no significant abnormality. CT/CTA Chest W/WO Contrast IMPRESSION: No evidence of pulmonary embolus or other acute thoracic disease. Stable 4.5 cm aneurysm of the ascending aorta. Electronically Signed: Vishnu Aranda, at 17:38 EDT Tel , Service support , CC: Attila Bearden MD 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: Signed CBC W/DIFF, AUTOMATED Collected: 07/12/2018 Status: F Source: [place] 2:55 PM [facility] REPOSITORY TYPE CODE TESTS RESULT OUT OF RANGE REFERENCE UNITS LAB L100.1000 4.4-11.0 K/mm3 Normal WBC 7.7 LAB L100.1200 4.6-6.2 M/mm3 Low RBC 4.59 LAB L100.1300 13.0-16.5 g/dl Low HGB 11.8 LAB L100.1400 40-54 % Low HCT 37.6 LAB L100.1500 80-94 fL Normal MCV 81.9 LAB L100.1600 27.0-32.0 pg Low MCH 25.7 LAB L100.1700 32-36 g/gl Low MCHC 31.4 LAB L100.1810 11.6-14.6 % Normal RDW CV 14.2 LAB L100.1820 35.1-43.9 fl Normal RDW SD 42.6 LAB L100.1900 150-450 K/mm3 Normal PLT 356 LAB L100.2000 6.2-12.0 fl Normal MPV 8.9 LAB L100.2100 47-70 % Normal NEUT% 48.8 LAB L100.2200 19-41 % Normal LY% 40.7 LAB L100.2300 0-10 % Normal MONO% 9.1 LAB L100.2400 0-5 % Normal EO% 1.0 LAB L100.2500 0-1 % Normal BASO% 0.3 LAB L100.2550 0.0-0.9 % Normal IM GRAN % 0.100 Result Comment: IG% - Immature Granulocytes (promyelocytes, myelocytes and metamyelocytes) > 1% indicates that a LEFT SHIFT is Present. LAB L100.2620 2.0-7.7 X10 3/uL Normal Absolute Neut 3.7 LAB L100.2720 0.83-4.51 X10 3/ul Normal Absolute Lymph 3.12 Performed By: #### L100.0100 #### [facility] [address] [place], [place], [id number] BASIC METABOLIC Collected: 07/12/2018 Status: F Source: [place] PROFILE (BMP) 2:55 PM [facility] REPOSITORY TYPE CODE TESTS RESULT OUT OF RANGE REFERENCE UNITS LAB L501.0100 74-106 mg/dL Normal GLU 75 Result Comment: Please note revised GLUCOSE reference range effective 2017. LAB L501.1000 7-18 mg/dL Normal BUN 12 LAB L501.1100 0.70-1.30 mg/dL Normal CREAT,SERUM 0.96 Result Comment: The validity of the calculated GFR AND GFRAA in patients over 70 years has not been determined. Clinical correlation is essential. LAB L501.1110 >60 mL/min Normal EST GFR 89 Result Comment: Non- GFR Calc LAB L501.1115 >60 mL/min Normal EST GFR - AA 108 Result Comment: GFR Calc LAB L501.1255 ml/min Normal Estimated CRCL 100.23 LAB L501.1300 10-20 RATIO BUN/CRE Normal 12.6 LAB L501.2200 8.5-10 mg/dL .1 CA Normal 8.6 LAB L501.5300 136-14 mmol/L 5 NA Normal 142 LAB L501.5600 3.5-5. mmol/L 1 K Normal 3.6 LAB L501.5900 98-107 mmol/L High CL 109 LAB L501.6100 21.0-3 mmol/L 2.0 CO2 Normal 23.0 LAB L501.6200 5-15 GAP Normal 10 Performed By: #### L500.2500, L501.4010 #### [facility] [address] [place], [address] TROPONIN-I Collected: 07/12/2018 Status: F Source: [place] 2:55 PM [facility] REPOSITORY TYPE CODE TESTS RESULT OUT OF RANGE REFERENCE UNITS LAB L501.4010 <0.045 ng/mL Normal < 0.015 TROPONIN-I Result Comment: TROPONIN-I EXPECTED VALUES <0.045 Negative 0.045 - 0.590 Consistent with Cardiac Damage > OR = 0.600 Critical Value Not every elevated troponin is indicative of MA. These values should be used with clinical judgement in examining the patient's clinical picture for diagnosis. To establish a diagnosis of MA versus myocardial injury, there must be a demonstrated rise and/or fall in the troponin values, in addition to ischemic symptoms, EKG changes, new regional wall motion abnormality, and/or angiographical evidence. PLEASE NOTE: REFERENCE RANGES EDITED 18 Performed By: #### L500.2500, L501.4010 #### [facility] [address] [place], [address] OPERATIVE NO Observed: 07/11/2018 Status: COMPLETED Source: [place] 12:00 AM [facility] OTHER CAMPUS REPOSITORY O ID: [id number] Author: Camron Perez Service: Urology Author Type: Physician Type: Operative Report Filed: 07/14/2018 6:58 AM Note Text: [facility] - Operative Report ATTILA DEL CID : 1970 AGE: 48. SEX: M PATIENT TYPE: A HOSP SVC: UROL LOCATION: [facility] ATTENDING PHYSICIAN: CAMRON PEREZ CSN NUMBER: [id number] DATE OF SURGERY/PROCEDURE: 07/10/2018 INCISION/PROCEDURE START TIME: 12:55 PM INCISION CLOSE/PROCEDURE END TIME: 1:07 PM PREOPERATIVE DIAGNOSIS: Right renal calculus, right hydronephrosis. POSTOPERATIVE DIAGNOSIS: Right renal calculus, right hydronephrosis. SURGEON: Camron Perez MD PACU RN: None. SURGERY/PROCEDURE: Cystoscopy with right ureteroscopy and stone basket extraction of right renal pelvic calcification. ANESTHESIA: General. ANTIBIOTICS: Ancef. INDICATION FOR PROCEDURE: This patient is a 48-year-old gentleman with a history of nephrocalcinosis and stones. He continued to have pain, and on followup ultrasound, he had hydronephrosis. For this reason, he was scheduled for surgery. He understood the risks, benefits, and alternatives to the procedure and consented to proceed. DESCRIPTION OF PROCEDURE: The patient was taken to the operating suite, and after adequate general anesthesia was achieved, the patient was prepped and draped in normal sterile fashion in dorsal lithotomy position. A #21-Jordanian cystoscope with 30-degree lens was inserted into the bladder without difficulty. The bladder was visualized in its entirety and demonstrated no abnormalities. Next, an 0.035 inch wire was inserted into the right ureter up to level of the renal pelvis using fluoroscopic guidance. Pyelograms were performed prior to this and demonstrated no hydroureter and no filling defects. There was a questionable calcification in the renal pelvis. After the cystoscope was removed, a flexible ureteroscope was advanced alongside the wire into the kidney and 1 calcification was seen in the lower pole. This was removed with a stone basket. This was sent for chemical analysis. There was minimal to no trauma of the ureter and there were no remaining calcifications in the collecting system. Any other calcification seen on imaging is likely in the renal parenchyma and needs no additional treatment. The wire and scope were removed. The patient tolerated the procedure well and was taken to recovery room in stable condition. Camron Perez MD [id number] /[id number] ANES POST Observed: 07/10/2018 Status: COMPLETED Source: [place] 3:18 PM [facility] REPOSITORY O ID: [id number] Author: Keila Delgado Service: Anesthesiology Author Type: Physician Type: Anesthesia PostOp Filed: 07/10/2018 4:25 PM Note Text: POST ANESTHESIA EVALUATION NOTE SERVICE DATE: 07/10/2018 SERVICE TIME: 4:25 PM : 1970 Vitals: 07/10/18 1139 07/10/18 1320 07/10/18 1415 Temp: 36.6 ?C (97.9 ?F) 36.3 ?C (97.3 ?F) 36.4 ?C (97.5 ?F) 07/10/18 1330 07/10/18 1345 07/10/18 1400 07/10/18 1415 BP: 125/89 135/99 140/103 144/98 07/10/18 1330 07/10/18 1345 07/10/18 1400 07/10/18 1415 Pulse: 78 73 72 75 07/10/18 1330 07/10/18 1345 07/10/18 1400 07/10/18 1415 Resp: 14 12 10 13 07/10/18 1330 07/10/18 1345 07/10/18 1400 07/10/18 1415 SpO2: 100% 97% 95% 97% Validated Vital Signs: Yes POST ANES STATUS: No apparent anesthetic complications. The patient is appropriately hydrated with stable respiratory and cardiovascular status. Patient has safe and adequate airway control. The patient has appropriate pain relief and no significant post operative nausea or vomiting. The patient has achieved baseline mental status. Intra-Operative Events: No Significant Anesthesia Events Further assessment by Anesthesia Service: None Other Remarks: SIGNATURE: Keila Delgado MD PATIENT NAME: Attila Del Cid DATE: July 10, 2018 TIME: 4:25 PM PAGER/CONTACT #: NURSING PROG Observed: 07/10/2018 Status: COMPLETED Source: [place] 2:27 PM [facility] REPOSITORY HNO ID: [id number] Author: Fannie AminRn) ALE Bernard Service: Nursing Author Type: Registered Nurse Type: Nursing Progress Note Filed: 07/10/2018 2:29 PM Note Text: Dr. Gurrola at the bedside and instilled 2 gtts of Topramax eye gtts into deng eyes for patient. Instructions for home use given. NURSING PROG Observed: 07/10/2018 Status: COMPLETED Source: [place] 1:45 PM [facility] REPOSITORY HNO ID: [id number] Author: Fannie Sloan) ALE Bernard Service: Nursing Author Type: Registered Nurse Type: Nursing Progress Note Filed: 07/10/2018 1:46 PM Note Text: Patient c/o feeling like something is in the inner corner of right eye. Dr. Gurrola to see patient in recovery. CALCULI ANALYSIS Collected: 07/10/2018 Status: F Source: [facility] 1:20 PM HEALTH SYSTEM REPOSITORY TYPE CODE TESTS RESULT OUT OF REFERENCE UNITS RANGE LAB CALTX(LOIN C) Calculus Type Right ureteral LAB STO1X(LOIN C) Calculi SEE BELOW Analysis Result Comment: Calculus Type RIGHT URETERAL Note (NOTE) Calculus Color: CASIANO Calculus Size & Weight: 0.4 X 0.3 X 0.3 CM; 0.0218 GRAMS Composition: CALCIUM PHOSPHATE - 100% This test was developed and its performance characteristics determined by the [facility] [place] ([facility] It has not been cleared or approved by the FDA. -[facility] is regulated under CLIA as qualified to perform high-complexity testing. This test is used for clinical purposes. It should not be regarded as investigational or for research. Performing Laboratory: [facility] [address] [place] [address] Performed By: #### STONX #### [facility] [address] [address] OR UROGRAM WITH Observed: 07/10/2018 Status: F Source: [facility] 1:05 PM HEALTH SYSTEM REPOSITORY Performed at [facility] APPROVED BY: Shahriar Mcknight MD EXAM TITLE: Fluoroscopy for intraoperative procedure DATE:07/10/2018 12:47 COMPARISON: Urogram April 2018 CLINICAL INDICATION/HISTORY: Calculus of kidney; right ureteral stent TECHNIQUE: Fluoroscopic guidance was provided for an intraoperative exam. Interpretation of images was made after completion of the procedure. Please note that the images presented may not be represen tative of the entire procedure performed. FINDINGS: 31 seconds of fluoroscopy time was used. 8 films were submitted. Images demonstrate opacification of the right ureter. The initial 2 contrast filled images demonstrate some small filling defects which may represent air bubbles. These disappear on the subsequent sara ges. Final image demonstrates a catheter within the right ureter. IMPRESSION: Documentation of fluoroscopy for intraoperative procedure. Please see the clinicians notes for further details of the procedure. OR FLUORO UP TO 1 Observed: 07/10/2018 Status: F Source: [facility] 1:05 PM HEALTH SYSTEM REPOSITORY Performed at [facility] APPROVED BY: Jorge Wylie MD IMPRESSION: 31 seconds of fluoroscopy time was utilized for this exam. ANES PREOP Observed: 07/10/2018 Status: COMPLETED Source: [place] 11:45 AM [facility] OTHER CAMPUS REPOSITORY HNO ID: [id number] Author: Jayden Gurrola Service: Anesthesiology Author Type: Physician Type: Anesthesia PreOp Filed: 07/10/2018 11:54 AM Note Text: ANESTHESIOLOGY DAY OF SURGERY NOTE SERVICE DATE: 07/10/2018 SERVICE TIME: 11:45 AM : 1970 Procedure(s) (LRB): LASER LITHOTRIPSY STONES URETER ~HOLMIUM (Right) INSERTION STENT URETERAL (Right) Surgeon(s): Camron Perez Estimated body mass index is 33.19 kg/m? as calculated from the following: Height as of 06/28/18: 180.3 cm (5' 11). Weight as of 06/28/18: 108 kg (238 lb). 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 Kidney Stones Acute Right Flank Pain Ectatic Thoracic Aorta (Hcc) Renal Calculus, Right Tia (Transient Ischemic Attack) Calculus of Kidney PAST MEDICAL HISTORY Diagnosis Date - Acute right flank pain 03/25/2018 - Aneurysm of ascending aorta (HCC) - Aortic aneurysm (HCC) - Arthritis - Atrial fibrillation (HCC) - Calculi, ureter - Calculus of kidney - Hematuria - Hypertension - Kidney stones 03/25/2018 - Pneumonia - Psychiatric disorder anxiety - Renal calculus PAST SURGICAL HISTORY Procedure Laterality Date - BACK SURGERY HX 2015 FUSION, L4-L5 - COLONOSCOP W/ OR W/O BRSH SPEC 05/14/2014 Colonoscopy - EGD W/O OR W/BRUSH/WASH 05/14/2014 EGD - FRAGMENTING/KIDNEY STONE Right 2017 Lithotripsy - KNEE SURGERY HX Right 03/2017 patella replacement - [place] ANESTH,KNEE JOINT; NOS 12/2017 Left - REMOVAL OF KIDNEY STONE 04/2018 FAMILY HISTORY Problem Relation Age of Onset - Diabetes Mother - Colon Cancer Mother - Heart disease Mother - Hypertension Mother - Diabetes Sister - Skin Cancer Father Social History: Social History Substance Use Topics - Smoking status: Never Smoker - Smokeless tobacco: Never Used - Alcohol use No No current facility-administered medications on file prior to encounter. Current Outpatient Prescriptions on File Prior to Encounter: atorvastatin (LIPITOR) 20 mg tablet every day escitalopram oxalate (LEXAPRO) 10 mg tablet every day amLODIPine (NORVASC) 5 mg tablet Take 5 mg by mouth once daily. tamsulosin ER (FLOMAX) 0.4 mg cp24 every day gabapentin (NEURONTIN) 300 mg capsule Take 100 mg by mouth daily at bedtime. lisinopril (ZESTRIL, PRINIVIL) 20 mg tablet Take 1 tablet by mouth once daily. pantoprazole DR (PROTONIX) 40 mg tablet Take 1 tablet by mouth once daily. promethazine (PHENERGAN) 25 mg tablet Take 1 tablet by mouth every 4 hours as needed. ondansetron orally disintegrating (ZOFRAN ODT) 4 mg disintegrating tablet Take 1 tablet by mouth every 4 hours as needed for Nausea/Vomiting. methocarbamol (ROBAXIN) 750 mg tablet Take 1 tablet by mouth four times daily. BABY ASPIRIN ORAL Take 1 tablet by mouth once daily. apixaban (ELIQUIS) 5 mg tab tab(s) Take by mouth twice daily. meclizine (ANTIVERT) 12.5 mg tab Take 2 tablets by mouth twice daily as needed. albuterol HFA (PROVENTIL HFA, VENTOLIN HFA) 90 mcg/actuation inhaler Inhale 2 Puffs as instructed every 4 hours as needed. Current Facility-Administered Medications: lactated ringers infusion 50 mL/hr INTRAVENOUS CONTINUOUS Camron Perez lidocaine 10 mg/mL (1 %) 1-2 mg injection (XYLOCAINE) 0.1- 0.2 mL INTRADERMAL PRN Camron Perez ceFAZolin iv piggyback 2 g in D5W (iso-osmotic) 100 mL (ANCEF) 2 g INTRAVENOUS Pre-Op Once Camron Perez albuterol 2.5 mg /3 mL (0.083 %) 2.5 mg (PROVENTIL) 2.5 mg INHALATION (PACU) PRN Jayden Gurrola lactated ringers infusion 125 mL/hr INTRAVENOUS (PACU) CONTINUOUS Jayden Gurrola fentaNYL 50 mcg/mL 50 mcg injection (SUBLIMAZE) 50 mcg INTRAVENOUS (PACU) PRN Jayden Gurrola HYDROmorphone 0.5 mg injection (DILAUDID) 0.5 mg INTRAVENOUS (PACU) PRN Jayden Gurrola oxyCODONE IR 5 mg tab(s) (ROXICODONE) 5 mg ORAL (PACU) PRN Jayden Gurrola ondansetron (PF) 4 mg injection (ZOFRAN) 4 mg INTRAVENOUS (PACU) PRN Jayden Gurrola prochlorperazine 10 mg injection (COMPAZINE) 10 mg INTRAVENOUS (PACU) PRN Jayden Gurrola meperidine (PF) 12.5 mg injection (DEMEROL) 12.5 mg INTRAVENOUS (PACU) PRN Jayden Gurrola Allergies: ALLERGIES Allergen Reactions - Atorvastatin Other: See Comments Chest pain - Celebrex [Celecoxib] Vomiting Nausea - Clonidine Rash - Fentanyl GI Upset - Levofloxacin Rash pt reports to [facility] PT 04-13-2017 - Penicillin G Rash - Relpax [Eletriptan * Vomiting Nausea - Topamax [Topiramate] Vomiting - Vicodin [Hydrocodon* Vomiting - Wellbutrin [Bupropi* Vomiting Nausea DOS EXAM: Adequate NPO status: Yes Anesthetic risks, benefits, alternatives, personnel and consent discussed: Yes Patient agrees to proceed: Yes Previous Anesthesia: No history of adverse event. Airway Assessment: MP 3; Neck ROM: Full ROM without neurologic symptoms; Airway Evaluation: No significant abnormalities Symptoms of Sleep Apnea: None Dentition: Teeth intact Additional Physical Exam: Lungs: Patient health status unchanged since recent history and physical. See history and physical for exam findings. Cardiac: Patient health status unchanged since recent history and physical. See history and physical for exam findings. Additional Pertinent Findings: N/A Blood Products: Not anticipated for this procedure. Anesthetic Plan: General, Standard ASA Monitors Pain Management Plan: Parenteral or Oral and per Surgical Service ASA Class: 3 Other Medical Problems: Two echos recent in the chart say the aorta is normal size (not aneurysmal) and the ejection fractin is 74 % ---will proceed. Chronic Beta Carolee medication administered within 24 hours: Yes I have interviewed and examined the patient. I have reviewed the medical record and/or the pre-anesthesia evaluation, pertinent labs, and test results. Significant changes in the patient's condition since the History and Physical, not otherwise documented in primary service progress notes: No This contains updated information obtained within 48 hours of Surgery/Procedure. SIGNATURE: Jayden Gurrola MD PATIENT NAME: Attila Del Cid DATE: July 10, 2018 TIME: 11:45 AM CSN: [id number] NURSING PROG Observed: 07/10/2018 Status: COMPLETED Source: [place] 11:43 AM CL[facility] OTHER CAMPUS REPOSITORY HNO ID: [id number] Author: Meagan (Rn) ALE Escobar Service: Nursing Author Type: Registered Nurse Type: Nursing Progress Note Filed: 07/10/2018 11:44 AM Note Text: B/P reported to dr gurrola and rechlakia done. HISTORY PHYSICAL Observed: 07/10/2018 Status: COMPLETED Source: [place] 11:16 AM CLINIC OTHER CAMPUS REPOSITORY HNO ID: [id number] Author: Camron Perez Service: Urology Author Type: Physician Type: HANDP Filed: 07/10/2018 11:17 AM Note Text: CONSULT: UROLOGY SERVICE SERVICE DATE: 07/10/2018 SERVICE TIME: 11:16 AM Assessment: Right hydronephrosis Plan: C and P , R ULL , poss R stent Subjective Mr. Del Cid is a 48 year old male who presents for right hydro , persistent pain, possible stone; . PAST MEDICAL HISTORY Diagnosis Date - Acute right flank pain 03/25/2018 - Aneurysm of ascending aorta (HCC) - Aortic aneurysm (HCC) - Arthritis - Atrial fibrillation (HCC) - Calculi, ureter - Calculus of kidney - Hematuria - Hypertension - Kidney stones 03/25/2018 - Pneumonia - Psychiatric disorder anxiety - Renal calculus PAST SURGICAL HISTORY Procedure Laterality Date - BACK SURGERY HX 2015 FUSION, L4-L5 - COLONOSCOP W/ OR W/O BRSH SPEC 05/14/2014 Colonoscopy - EGD W/O OR W/BRUSH/WASH 05/14/2014 EGD - FRAGMENTING/KIDNEY STONE Right 2017 Lithotripsy - KNEE SURGERY HX Right 03/2017 patella replacement - [place] ANESTH,KNEE JOINT; NOS 12/2017 Left - REMOVAL OF KIDNEY STONE 04/2018 FAMILY HISTORY Problem Relation Age of Onset - Diabetes Mother - Colon Cancer Mother - Heart disease Mother - Hypertension Mother - Diabetes Sister - Skin Cancer Father Social History Substance Use Topics - Smoking status: Never Smoker - Smokeless tobacco: Never Used - Alcohol use No promethazine (PHENERGAN) 25 mg tablet, Take 1 tablet by mouth every 4 hours as needed., Disp: 15 tablet, Rfl: 0 ondansetron orally disintegrating (ZOFRAN ODT) 4 mg disintegrating tablet, Take 1 tablet by mouth every 4 hours as needed for Nausea/Vomiting., Disp: 8 tablet, Rfl: 0 methocarbamol (ROBAXIN) 750 mg tablet, Take 1 tablet by mouth four times daily., Disp: 18 tablet, Rfl: 0 lidocaine (LIDODERM) 5 %, Apply 1 Patch as directed every 24 hours., Disp: 3 Patch, Rfl: [address] (DEPAKOTE) 250 mg EC tablet, Take 1 tablet by mouth twice daily., Disp: 60 tablet, Rfl: 0 atorvastatin (LIPITOR) 20 mg tablet, every day, Disp: , Rfl: , Taking escitalopram oxalate (LEXAPRO) 10 mg tablet, every day, Disp: , Rfl: , Taking amLODIPine (NORVASC) 5 mg tablet, Take 5 mg by mouth once daily., Disp: , Rfl: , 06/01/2018 at Unknown time BABY ASPIRIN ORAL, Take 1 tablet by mouth once daily., Disp: , Rfl: , 07/08/2018 tamsulosin ER (FLOMAX) 0.4 mg cp24, every day, Disp: , Rfl: , Taking gabapentin (NEURONTIN) 300 mg capsule, , Disp: , Rfl: , Taking apixaban (ELIQUIS) 5 mg tab tab(s), Take by mouth twice daily., Disp: , Rfl: , 07/08/2018 meclizine (ANTIVERT) 12.5 mg tab, Take 2 tablets by mouth twice daily as needed., Disp: , Rfl: , Taking lisinopril (ZESTRIL, PRINIVIL) 20 mg tablet, Take 1 tablet by mouth once daily., Disp: 30 tablet, Rfl: 11, Taking pantoprazole DR (PROTONIX) 40 mg tablet, Take 1 tablet by mouth once daily., Disp: 30 tablet, Rfl: 11, Taking albuterol HFA (PROVENTIL HFA, VENTOLIN HFA) 90 mcg/actuation inhaler, Inhale 2 Puffs as instructed every 4 hours as needed., Disp: 1 Inhaler, Rfl: 0, Unknown at Unknown time lactated ringers infusion, 50 mL/hr, INTRAVENOUS, CONTINUOUS lidocaine 10 mg/mL (1 %) 1-2 mg injection (XYLOCAINE), 0.1- 0.2 mL, INTRADERMAL, PRN ceFAZolin iv piggyback 2 g in D5W (iso-osmotic) 100 mL (ANCEF), 2 g, INTRAVENOUS, Pre-Op Once Allergies As of Date: 07/07/2018 Allergen Noted Reaction ATORVASTATIN 10/09/2017 Other: See Comments CELEBREX [CELECOXIB] 07/17/2016 Vomiting CLONIDINE 07/17/2016 Rash FENTANYL 07/17/2016 GI Upset LEVOFLOXACIN 04/13/2017 Rash PENICILLIN G 12/30/2013 Rash RELPAX [ELETRIPTAN HBR] 07/17/2016 Vomiting TOPAMAX [TOPIRAMATE] 07/17/2016 Vomiting VICODIN [HYDROCODONE-ACETAMINOPHE*12/30/2013 Vomiting WELLBUTRIN [BUPROPION HCL] 07/17/2016 Vomiting Fully Assessed 06/28/2018 COMPLETE REVIEW OF SYSTEMS: PAIN ASSESSMENT: HISTORY OF CHRONIC PAIN OR CURRENTLY BEING TREATED FOR A CHRONIC PAIN CONDITION: No Objective PHYSICAL EXAM: Empty flowsheet group. There is no height or weight on file to calculate BMI. GENERAL: Alert, no distress, cooperative LUNGS: symmetric respiration HEART RRR ABDOMEN: Soft, nontender EXTREMITIES: FROM NEURO: no anxiety GENITALIA: defer to OR DATA: Diagnostic tests reviewed for today's visit: PSA (ng/mL) Date Value 11/21/2016 1.33 Glucose (mg/dL) Date Value 06/15/2018 95 BUN (mg/dL) Date Value 06/15/2018 10 Creatinine (mg/dL) Date Value 06/15/2018 0.81 Sodium (mmol/L) Date Value 06/15/2018 136 Potassium (mmol/L) Date Value 06/15/2018 4.1 Chloride (mmol/L) Date Value 06/15/2018 98 CO2 (mmol/L) Date Value 06/15/2018 23 Protein, Total (g/dL) Date Value 06/15/2018 6.7 Albumin (g/dL) Date Value 06/15/2018 3.9 Calcium (mg/dL) Date Value 06/15/2018 10.0 Alkaline Phosphatase (U/L) Date Value 06/15/2018 73 Bilirubin, Total (mg/dL) Date Value 06/15/2018 0.4 AST (U/L) Date Value 06/15/2018 21 ALT (U/L) Date Value 06/15/2018 23 CBC with diff: WBC 10.54 06/15/2018 RBC 5.34 06/15/2018 HGB 14.4 06/15/2018 Hematocrit 44.2 06/15/2018 MCV 82.8 06/15/2018 MCH 27.0 06/15/2018 MCHC 32.6 06/15/2018 RDW-CV 14.5 06/15/2018 Platelet Count 367 06/15/2018 MPV 9.0 06/15/2018 Neut% 62.1 06/15/2018 Lymph% 26.8 06/15/2018 [place]% 9.7 06/15/2018 Eosin% 0.9 06/15/2018 Baso% 0.5 06/15/2018 Abs Neut (ANC) 6.56 06/15/2018 Abs [place] 1.02 06/15/2018 Abs Eosin 0.09 06/15/2018 Abs Baso 0.05 06/15/2018 pH, Urine Date Value Ref Range Status 06/28/2018 7.0 5.0 - 8.0 Final Specific [place], Ur Date Value Ref Range Status 06/28/2018 1.025 1.005 - 1.030 Final Glucose, Urine Date Value Ref Range Status 06/28/2018 NEGATIVE Negative Final Bilirubin, Urine Date Value Ref Range Status 06/28/2018 NEGATIVE Negative Final Ketones, Urine Date Value Ref Range Status 06/28/2018 NEGATIVE Negative Final Hemoglobin/Blood,Ur Date Value Ref Range Status 06/15/2018 Negative Negative Final Protein, Urine Date Value Ref Range Status 06/28/2018 NEGATIVE Negative Final Urobilinogen Date Value Ref Range Status 06/15/2018 0.2 0.2 - 1.0 Final Nitrites Urine Date Value Ref Range Status 06/28/2018 NEGATIVE Negative Final WBC, Urine Date Value Ref Range Status 06/28/2018 0-2 0 - 5 /hpf Final Radiology: see My chart ; US reviewed SIGNATURE: Camron Perez MD PATIENT NAME: Attila Del Cid DATE: July 10, 2018 TIME: 11:16 AM PAGER: PROGRESS Observed: 07/09/2018 Status: COMPLETED Source: [place] 11:59 AM CLINIC OTHER CAMPUS REPOSITORY HNO ID: [id number] Author: Cherelle Demarco Service: (none) Author Type: (none) Type: Progress Notes Filed: 07/09/2018 12:00 PM Note Text: I called Dr. Perez office talked to susan regarding consent per office consent will be done day of surgery. [facility] EMERGENCY DEPARTMENT Observed: 07/09/2018 Status: F Source: [place] SUMMARY 2:35 AM [facility] REPOSITORY [facility] Medical Records Department [address] [place] [address] Emergency Department Summary 07/08/18 1709 MR#: [id number] Acct: [id number] Name: ATTILA DEL CID Rep #: [id number] : 1970 48 From: Cassy Cruz MD PCP: Nyla Bearden MD Status: DEP ER - ER Visit Summary Date of Service: 07/08/18 Chief Complaint: Right shoulder pain History of Present Illness: The patient is a 48 M presenting for evaluation secondary to shoulder pain. Patient has a history of frequent right shoulder dislocations. His most recent was about a week ago. Patient reports over the course last 2 days while showering is felt the shoulder go in and then out. He called his orthopedist recommended that he come to the emergency department to be sure that his shoulder is reduced. Patient does endorse that he has mild amount of paresthesia in the right arm. Review of systems otherwise negative. Physical Examination: Examination of patient's left upper extremity shows pain diffusely around the shoulder. There is limited range of motion secondary to pain. There is no evidence of warmth or overlying erythema. Normal flexion extension at the elbow wrist, normal sensation of the arm, normal distal pulses. Test Results: 2 view of the right shoulder shows evidence of no fracture no dislocation per my personal review Emergency Department Course and Treatment: Patient presented due to concern for dislocation of the shoulder. X-rays were negative. Patient was placed in a sling he will follow-up with orthopedics. Disposition: Discharge Impression: 1. Recurrent right shoulder dislocations with spontaneous reduction This note was generated with [employer]ation software. It may contain incorrect words, spelling, and punctuation that were not noted in review of the chart prior to signing ED Disposition - Plan for ED Patient: Disposition: Home or Assisted Living Chief Complaint: Upper Extremity Injury Diagnosis: Shoulder dislocation, recurrent Instructions: Understanding Shoulder Instability Referrals: Claribel Batista DO [STAFF PHYSICIAN] - 5-7 Days What to do if you have Problems For any increased pain, shortness of breath, bleeding, nausea or vomiting, chest pain, or any unexpected problems, contact your Primary Care Provider. Call [facility] ([phone]) or report to the closest Emergency Room. Call 911 if necessary. 07/09/18 0235 <Electronically signed by Cassy Cruz MD> Date Cassy Cruz MD Cosigner Signature (If Indicated): Date CC: Nyla Bearden MD SHOULDER MIN 2 VIEWS Observed: 07/08/2018 Status: F Source: [place] 4:45 PM [facility] REPOSITORY [facility] Imaging Services [address] [place] [id number] Shoulder min 2 Views MR#: [id number] Acct: [id number] Name: ATTILA DEL CID Rep #: [id number] : 1970 48 From: Nirmala Zee MD PCP: Nyla Bearden MD Status: [facility] ER Study: Shoulder min 2 Views Date of Exam: 07/08/18 Exam# [id number] Ordering Dr: Cassy Cruz MD STUDY: X-RAY - RIGHT SHOULDER REASON FOR EXAM: Male, 48 years old. Pain, no known injury. Popped out a few times according to patient. TECHNIQUE: 4 view(s) of the shoulder. COMPARISON: X-Ray Shoulder 07/07/2018, 07/01/2018. FINDINGS: No fracture. Normal acromioclavicular joint. In the scapular Y view, the humeral head lies slightly posterior relative to the glenoid. In the frontal rotated view, there may be an old Hill-Sachs fracture deformity. Difficult to exclude a partial posterior dislocation. Axillary view is recommended. RAD/Shoulder min 2 Views IMPRESSION: In the scapular Y view, slightly malorientation of the humeral head relative to the glenoid. This probably just positional. Difficult to exclude partial dislocation posteriorly, although unlikely. Correlate with axillary view. No fracture. Electronically Signed: Nirmala Saadia, at 17:18 EDT Tel , Service support , CC: Nyla Bearden MD; Cassy Cruz 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: Signed SHOULDER ONE VIEW Observed: 07/07/2018 Status: F Source: [place] 11:06 AM [facility] REPOSITORY [facility] Imaging Services [address] [place] [id number] Shoulder One View MR#: [id number] Acct: [id number] Name: ATTILA DEL CID Rep #: [id number] : 1970 M 48 From: Camron Louis MD PCP: Nyla Bearden MD Status: REG CLI Study: Shoulder One View Date of Exam: 07/07/18 Exam# [id number] Ordering Dr: Claribel Batista DO STUDY: X-RAY - RIGHT SHOULDER REASON FOR EXAM: Axillary view. TECHNIQUE: A single view of the shoulder. COMPARISON: Radiographs 07/01/2018. FINDINGS: Normal glenohumeral articulation. Normal acromioclavicular joint. Normal acromion. Normal humeral head and visualized proximal humerus. The soft tissue structures are unremarkable. RAD/Shoulder One View IMPRESSION: Normal axillary view of the right shoulder. Electronically Signed: Camron Louis MD at 12:00 EDT Tel , Service support , CC: Claribel Batista DO; Nyla Bearden MD 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: Signed HOSP Observed: 07/07/2018 Status: COMPLETED Source: [place] 12:00 AM CLINIC OTHER CAMPUS REPOSITORY Patient:Attila Del Cid MRN: <[id number]> Height:5' 11(1.803 m) Weight:238 lb (107.956 kg) Outpatient Medications as of 07/10/18: sotalol (BETAPACE) 120 mg tablet promethazine (PHENERGAN) 25 mg tablet ondansetron orally disintegrating (ZOFRAN ODT) 4 mg disintegrating tablet methocarbamol (ROBAXIN) 750 mg tablet atorvastatin (LIPITOR) 20 mg tablet escitalopram oxalate (LEXAPRO) 10 mg tablet amLODIPine (NORVASC) 5 mg tablet BABY ASPIRIN ORAL tamsulosin ER (FLOMAX) 0.4 mg cp24 gabapentin (NEURONTIN) 300 mg capsule apixaban (ELIQUIS) 5 mg tab tab(s) meclizine (ANTIVERT) 12.5 mg tab lisinopril (ZESTRIL, PRINIVIL) [address] (PROTONIX) 40 mg tablet albuterol HFA (PROVENTIL HFA, VENTOLIN HFA) 90 mcg/actuation inhaler Admission/Clinic Administered Medications as of 07/10/18: lactated ringers infusion lidocaine 10 mg/mL (1 %) 1-2 mg injection (XYLOCAINE) ceFAZolin iv piggyback 2 g in D5W (iso-osmotic) 100 mL (ANCEF) albuterol 2.5 mg /3 mL (0.083 %) 2.5 mg (PROVENTIL) lactated ringers infusion fentaNYL 50 mcg/mL 50 mcg injection (SUBLIMAZE) HYDROmorphone 0.5 mg injection (DILAUDID) oxyCODONE IR 5 mg tab(s) (ROXICODONE) ondansetron (PF) 4 mg injection (ZOFRAN) prochlorperazine 10 mg injection (COMPAZINE) meperidine (PF) 12.5 mg injection (DEMEROL) Problem List: Primary osteoarthritis of right knee [M17.11] Chest pain at rest [R07.9] HTN (hypertension) [I10] Atrial fibrillation (HCC) [I48.91] Atypical chest pain [R07.89] 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 [M25.361, M25.561] Kidney stones [N20.0] Acute right flank pain [R10.9] Ectatic thoracic aorta (HCC) [I77.810] Renal calculus, right [N20.0] TIA (transient ischemic attack) [G45.9] Calculus of kidney [N20.0] Allergies: Atorvastatin Celebrex [Celecoxib] Clonidine Fentanyl Levofloxacin Penicillin G Relpax [Eletriptan Hbr] Topamax [Topiramate] Vicodin [Hydrocodone-Acetaminophen] Wellbutrin [Bupropion Hcl] Date Verified: 07/10/18 Lab Values Lab Value Units Date High Low POTA* 4.1 mmol/L 06/15/2018 5.1 3.7 MATIAS* 44.2 % 06/15/2018 51.0 39.0 Progress Notes (): Cherelle Demarco 07/09/2018 12:00 PM Signed I called Dr. Perez office talked to susan regarding consent per office consent will be done day of surgery. Melinda Perez MD 07/10/2018 11:17 AM Signed CONSULT: UROLOGY SERVICE SERVICE DATE: 07/10/2018 SERVICE TIME: 11:16 AM Assessment: Right hydronephrosis Plan: C and P , R ULL , poss R stent Subjective Mr. Del Cid is a 48 year old male who presents for right hydro , persistent pain, possible stone; . PAST MEDICAL HISTORY Diagnosis Date - Acute right flank pain 03/25/2018 - Aneurysm of ascending aorta (HCC) - Aortic aneurysm (HCC) - Arthritis - Atrial fibrillation (HCC) - Calculi, ureter - Calculus of kidney - Hematuria - Hypertension - Kidney stones 03/25/2018 - Pneumonia - Psychiatric disorder anxiety - Renal calculus PAST SURGICAL HISTORY Procedure Laterality Date - BACK SURGERY HX 2015 FUSION, L4-L5 - COLONOSCOP W/ OR W/O BRSH SPEC 05/14/2014 Colonoscopy - EGD W/O OR W/BRUSH/WASH 05/14/2014 EGD - FRAGMENTING/KIDNEY STONE Right 2017 Lithotripsy - KNEE SURGERY HX Right 03/2017 patella replacement - [place] ANESTH,KNEE JOINT; NOS 12/2017 Left - REMOVAL OF KIDNEY STONE 04/2018 FAMILY HISTORY Problem Relation Age of Onset - Diabetes Mother - Colon Cancer Mother - Heart disease Mother - Hypertension Mother - Diabetes Sister - Skin Cancer Father Social History Substance Use Topics - Smoking status: Never Smoker - Smokeless tobacco: Never Used - Alcohol use No promethazine (PHENERGAN) 25 mg tablet, Take 1 tablet by mouth every 4 hours as needed., Disp: 15 tablet, Rfl: 0 ondansetron orally disintegrating (ZOFRAN ODT) 4 mg disintegrating tablet, Take 1 tablet by mouth every 4 hours as needed for Nausea/Vomiting., Disp: 8 tablet, Rfl: 0 methocarbamol (ROBAXIN) 750 mg tablet, Take 1 tablet by mouth four times daily., Disp: 18 tablet, Rfl: 0 lidocaine (LIDODERM) 5 %, Apply 1 Patch as directed every 24 hours., Disp: 3 Patch, Rfl: [address] (DEPAKOTE) 250 mg EC tablet, Take 1 tablet by mouth twice daily., Disp: 60 tablet, Rfl: 0 atorvastatin (LIPITOR) 20 mg tablet, every day, Disp: , Rfl: , Taking escitalopram oxalate (LEXAPRO) 10 mg tablet, every day, Disp: , Rfl: , Taking amLODIPine (NORVASC) 5 mg tablet, Take 5 mg by mouth once daily., Disp: , Rfl: , 06/01/2018 at Unknown time BABY ASPIRIN ORAL, Take 1 tablet by mouth once daily., Disp: , Rfl: , 07/08/2018 tamsulosin ER (FLOMAX) 0.4 mg cp24, every day, Disp: , Rfl: , Taking gabapentin (NEURONTIN) 300 mg capsule, , Disp: , Rfl: , Taking apixaban (ELIQUIS) 5 mg tab tab(s), Take by mouth twice daily., Disp: , Rfl: , 07/08/2018 meclizine (ANTIVERT) 12.5 mg tab, Take 2 tablets by mouth twice daily as needed., Disp: , Rfl: , Taking lisinopril (ZESTRIL, PRINIVIL) 20 mg tablet, Take 1 tablet by mouth once daily., Disp: 30 tablet, Rfl: 11, Taking pantoprazole DR (PROTONIX) 40 mg tablet, Take 1 tablet by mouth once daily., Disp: 30 tablet, Rfl: 11, Taking albuterol HFA (PROVENTIL HFA, VENTOLIN HFA) 90 mcg/actuation inhaler, Inhale 2 Puffs as instructed every 4 hours as needed., Disp: 1 Inhaler, Rfl: 0, Unknown at Unknown time lactated ringers infusion, 50 mL/hr, INTRAVENOUS, CONTINUOUS lidocaine 10 mg/mL (1 %) 1-2 mg injection (XYLOCAINE), 0.1- 0.2 mL, INTRADERMAL, PRN ceFAZolin iv piggyback 2 g in D5W (iso-osmotic) 100 mL (ANCEF), 2 g, INTRAVENOUS, Pre-Op Once Allergies As of Date: 07/07/2018 Allergen Noted Reaction ATORVASTATIN 10/09/2017 Other: See Comments CELEBREX [CELECOXIB] 07/17/2016 Vomiting CLONIDINE 07/17/2016 Rash FENTANYL 07/17/2016 GI Upset LEVOFLOXACIN 04/13/2017 Rash PENICILLIN G 12/30/2013 Rash RELPAX [ELETRIPTAN HBR] 07/17/2016 Vomiting TOPAMAX [TOPIRAMATE] 07/17/2016 Vomiting VICODIN [HYDROCODONE-ACETAMINOPHE*12/30/2013 Vomiting WELLBUTRIN [BUPROPION HCL] 07/17/2016 Vomiting Fully Assessed 06/28/2018 COMPLETE REVIEW OF SYSTEMS: PAIN ASSESSMENT: HISTORY OF CHRONIC PAIN OR CURRENTLY BEING TREATED FOR A CHRONIC PAIN CONDITION: No Objective PHYSICAL EXAM: Empty flowsheet group. There is no height or weight on file to calculate BMI. GENERAL: Alert, no distress, cooperative LUNGS: symmetric respiration HEART RRR ABDOMEN: Soft, nontender EXTREMITIES: FROM NEURO: no anxiety GENITALIA: defer to OR DATA: Diagnostic tests reviewed for today's visit: PSA (ng/mL) Date Value 11/21/2016 1.33 Glucose (mg/dL) Date Value 06/15/2018 95 BUN (mg/dL) Date Value 06/15/2018 10 Creatinine (mg/dL) Date Value 06/15/2018 0.81 Sodium (mmol/L) Date Value 06/15/2018 136 Potassium (mmol/L) Date Value 06/15/2018 4.1 Chloride (mmol/L) Date Value 06/15/2018 98 CO2 (mmol/L) Date Value 06/15/2018 23 Protein, Total (g/dL) Date Value 06/15/2018 6.7 Albumin (g/dL) Date Value 06/15/2018 3.9 Calcium (mg/dL) Date Value 06/15/2018 10.0 Alkaline Phosphatase (U/L) Date Value 06/15/2018 73 Bilirubin, Total (mg/dL) Date Value 06/15/2018 0.4 AST (U/L) Date Value 06/15/2018 21 ALT (U/L) Date Value 06/15/2018 23 CBC with diff: WBC 10.54 06/15/2018 RBC 5.34 06/15/2018 HGB 14.4 06/15/2018 Hematocrit 44.2 06/15/2018 MCV 82.8 06/15/2018 MCH 27.0 06/15/2018 MCHC 32.6 06/15/2018 RDW-CV 14.5 06/15/2018 Platelet Count 367 06/15/2018 MPV 9.0 06/15/2018 Neut% 62.1 06/15/2018 Lymph% 26.8 06/15/2018 [place]% 9.7 06/15/2018 Eosin% 0.9 06/15/2018 Baso% 0.5 06/15/2018 Abs Neut (ANC) 6.56 06/15/2018 Abs [place] 1.02 06/15/2018 Abs Eosin 0.09 06/15/2018 Abs Baso 0.05 06/15/2018 pH, Urine Date Value Ref Range Status 06/28/2018 7.0 5.0 - 8.0 Final Specific [place], Ur Date Value Ref Range Status 06/28/2018 1.025 1.005 - 1.030 Final Glucose, Urine Date Value Ref Range Status 06/28/2018 NEGATIVE Negative Final Bilirubin, Urine Date Value Ref Range Status 06/28/2018 NEGATIVE Negative Final Ketones, Urine Date Value Ref Range Status 06/28/2018 NEGATIVE Negative Final Hemoglobin/Blood,Ur Date Value Ref Range Status 06/15/2018 Negative Negative Final Protein, Urine Date Value Ref Range Status 06/28/2018 NEGATIVE Negative Final Urobilinogen Date Value Ref Range Status 06/15/2018 0.2 0.2 - 1.0 Final Nitrites Urine Date Value Ref Range Status 06/28/2018 NEGATIVE Negative Final WBC, Urine Date Value Ref Range Status 06/28/2018 0-2 0 - 5 /hpf Final Radiology: see My chart ; US reviewed SIGNATURE: Camron Perez MD PATIENT NAME: Attila Del Cid DATE: July 10, 2018 TIME: 11:16 AM PAGER: Meagan Escobar RN, RN 07/10/2018 11:44 AM Signed B/P reported to dr gurrola and recheck done. Jayden Gurrola MD 07/10/2018 11:54 AM Signed ANESTHESIOLOGY DAY OF SURGERY NOTE SERVICE DATE: 07/10/2018 SERVICE TIME: 11:45 AM : 1970 Procedure(s) (LRB): LASER LITHOTRIPSY STONES URETER ~HOLMIUM (Right) INSERTION STENT URETERAL (Right) Surgeon(s): Camron Perez Estimated body mass index is 33.19 kg/m? as calculated from the following: Height as of 06/28/18: 180.3 cm (5' 11). Weight as of 06/28/18: 108 kg (238 lb). 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 Kidney Stones Acute Right Flank Pain Ectatic Thoracic Aorta (Hcc) Renal Calculus, Right Tia (Transient Ischemic Attack) Calculus of Kidney PAST MEDICAL HISTORY Diagnosis Date - Acute right flank pain 03/25/2018 - Aneurysm of ascending aorta (HCC) - Aortic aneurysm (HCC) - Arthritis - Atrial fibrillation (HCC) - Calculi, ureter - Calculus of kidney - Hematuria - Hypertension - Kidney stones 03/25/2018 - Pneumonia - Psychiatric disorder anxiety - Renal calculus PAST SURGICAL HISTORY Procedure Laterality Date - BACK SURGERY HX 2015 FUSION, L4-L5 - COLONOSCOP W/ OR W/O BRSH SPEC 05/14/2014 Colonoscopy - EGD W/O OR W/BRUSH/WASH 05/14/2014 EGD - FRAGMENTING/KIDNEY STONE Right 2017 Lithotripsy - KNEE SURGERY HX Right 03/2017 patella replacement - [place] ANESTH,KNEE JOINT; NOS 12/2017 Left - REMOVAL OF KIDNEY STONE 04/2018 FAMILY HISTORY Problem Relation Age of Onset - Diabetes Mother - Colon Cancer Mother - Heart disease Mother - Hypertension Mother - Diabetes Sister - Skin Cancer Father Social History: Social History Substance Use Topics - Smoking status: Never Smoker - Smokeless tobacco: Never Used - Alcohol use No No current facility-administered medications on file prior to encounter. Current Outpatient Prescriptions on File Prior to Encounter: atorvastatin (LIPITOR) 20 mg tablet every day escitalopram oxalate (LEXAPRO) 10 mg tablet every day amLODIPine (NORVASC) 5 mg tablet Take 5 mg by mouth once daily. tamsulosin ER (FLOMAX) 0.4 mg cp24 every day gabapentin (NEURONTIN) 300 mg capsule Take 100 mg by mouth daily at bedtime. lisinopril (ZESTRIL, PRINIVIL) 20 mg tablet Take 1 tablet by mouth once daily. pantoprazole DR (PROTONIX) 40 mg tablet Take 1 tablet by mouth once daily. promethazine (PHENERGAN) 25 mg tablet Take 1 tablet by mouth every 4 hours as needed. ondansetron orally disintegrating (ZOFRAN ODT) 4 mg disintegrating tablet Take 1 tablet by mouth every 4 hours as needed for Nausea/Vomiting. methocarbamol (ROBAXIN) 750 mg tablet Take 1 tablet by mouth four times daily. BABY ASPIRIN ORAL Take 1 tablet by mouth once daily. apixaban (ELIQUIS) 5 mg tab tab(s) Take by mouth twice daily. meclizine (ANTIVERT) 12.5 mg tab Take 2 tablets by mouth twice daily as needed. albuterol HFA (PROVENTIL HFA, VENTOLIN HFA) 90 mcg/actuation inhaler Inhale 2 Puffs as instructed every 4 hours as needed. Current Facility-Administered Medications: lactated ringers infusion 50 mL/hr INTRAVENOUS CONTINUOUS Camron Perez lidocaine 10 mg/mL (1 %) 1-2 mg injection (XYLOCAINE) 0.1- 0.2 mL INTRADERMAL PRN Camron Perez ceFAZolin iv piggyback 2 g in D5W (iso-osmotic) 100 mL (ANCEF) 2 g INTRAVENOUS Pre-Op Once Camron Perez albuterol 2.5 mg /3 mL (0.083 %) 2.5 mg (PROVENTIL) 2.5 mg INHALATION (PACU) PRN Jayden Gurrola lactated ringers infusion 125 mL/hr INTRAVENOUS (PACU) CONTINUOUS Jayden Gurrola fentaNYL 50 mcg/mL 50 mcg injection (SUBLIMAZE) 50 mcg INTRAVENOUS (PACU) PRN Jayden Gurrola HYDROmorphone 0.5 mg injection (DILAUDID) 0.5 mg INTRAVENOUS (PACU) PRN Jayden Gurrola oxyCODONE IR 5 mg tab(s) (ROXICODONE) 5 mg ORAL (PACU) PRN Jayden Gurrola ondansetron (PF) 4 mg injection (ZOFRAN) 4 mg INTRAVENOUS (PACU) PRN Jayden Gurrola prochlorperazine 10 mg injection (COMPAZINE) 10 mg INTRAVENOUS (PACU) PRN Jayden Gurrola meperidine (PF) 12.5 mg injection (DEMEROL) 12.5 mg INTRAVENOUS (PACU) PRN Jayden Gurrola Allergies: ALLERGIES Allergen Reactions - Atorvastatin Other: See Comments Chest pain - Celebrex [Celecoxib] Vomiting Nausea - Clonidine Rash - Fentanyl GI Upset - Levofloxacin Rash pt reports to [facility] PT 04-13-2017 - Penicillin G Rash - Relpax [Eletriptan * Vomiting Nausea - Topamax [Topiramate] Vomiting - Vicodin [Hydrocodon* Vomiting - Wellbutrin [Bupropi* Vomiting Nausea DOS EXAM: Adequate NPO status: Yes Anesthetic risks, benefits, alternatives, personnel and consent discussed: Yes Patient agrees to proceed: Yes Previous Anesthesia: No history of adverse event. Airway Assessment: MP 3; Neck ROM: Full ROM without neurologic symptoms; Airway Evaluation: No significant abnormalities Symptoms of Sleep Apnea: None Dentition: Teeth intact Additional Physical Exam: Lungs: Patient health status unchanged since recent history and physical. See history and physical for exam findings. Cardiac: Patient health status unchanged since recent history and physical. See history and physical for exam findings. Additional Pertinent Findings: N/A Blood Products: Not anticipated for this procedure. Anesthetic Plan: General, Standard ASA Monitors Pain Management Plan: Parenteral or Oral and per Surgical Service ASA Class: 3 Other Medical Problems: Two echos recent in the chart say the aorta is normal size (not aneurysmal) and the ejection fractin is 74 % ---will proceed. Chronic Beta Carolee medication administered within 24 hours: Yes I have interviewed and examined the patient. I have reviewed the medical record and/or the pre-anesthesia evaluation, pertinent labs, and test results. Significant changes in the patient's condition since the History and Physical, not otherwise documented in primary service progress notes: No This contains updated information obtained within 48 hours of Surgery/Procedure. SIGNATURE: Jayden Gurrola MD PATIENT NAME: Attila Del Cid DATE: July 10, 2018 TIME: 11:45 AM CSN: [id number] Progress Notes ([facility]): Jena Lincoln 07/07/2018 2:27 PM Signed Outpatient Right Holmium Laser Lithotripsy AND possible Right Ureteral Stent Placement, [facility] Main, [place] 07/10/18, 1:00 pm. Presurgical testing, [facility] 07/09/18, 8:40 am. Patient agreeable to dates, times. Not enough time to mail surgery booklet. Susan Yang 12 LEAD ELECTROCARDIOGRAM Observed: 07/04/2018 Status: F Source: [place] 1:16 PM [facility] RE[facility] Cardiovascular Services [address] [place] [address] 12 Lead EKG 07/01/18 1714 MR#: [id number] Acct: [id number] Name: ATTILA DEL CID Rep #: [id number] : 1970 48 From: Jesse Stokes MD Attending Dr: Status: DEP ER Ordering Dr: Diana Mays MD Date: 07/01/18 Location: ED Sex: M C Admitted: Test Reason : Blood Pressure : / mmHG Vent. Rate : 101 BPM Atrial Rate : 101 BPM P-R Int : 162 ms QRS Dur : 072 ms QT Int : 348 ms P-R-T Axes : 025 012 021 degrees QTc Int : 451 ms Sinus tachycardia Minimal voltage criteria for LVH, may be normal variant Borderline ECG Confirmed by JESSE STOKES MD ([id number]), dictionary editor RICCO LEWIS ([id number]) on 07/04/2018 1:16:01 PM Referred By: MI Confirmed By:JESSE STOKES MD 07/04/18 1316 Date Jesse Stokes MD CC: Nyla Bearden MD; Diana Mays MD Signed PROGRESS Observed: 07/02/2018 Status: COMPLETED Source: [place] 11:41 AM CLINIC OTHER CAMPUS REPOSITORY HNO ID: [id number] Author: Trixie Ojeda ([facility]) Evy Service: Urology Author Type: Nurse Practitioner Type: Progress Notes Filed: 07/02/2018 11:42 AM Note Text: Patient a No Show at PST 07/02/2018. Phone busy at surgery scheduling, voice message left. EMERGENCY DEPARTMENT Observed: 07/02/2018 Status: F Source: [facility] 12:19 AM [facility] Medical Records Department [address] [place] [address] Emergency Department Summary 07/01/18 1738 MR#: [id number] Acct: [id number] Name: ATTILA DEL CID Rep #: [id number] : 1970 48 From: Diana Mays MD PCP: Nyla Bearden MD Status: DEP ER - ER Visit Summary Date of Service: 07/01/18 Chief Complaint: Chest pain History of Present Illness: The patient is a 48 M who is had recent problems with his right shoulder. He has been following with Dr. Batista. Today he believes he dislocated his right shoulder and popped it back in place. Shortly after this he became sweaty, vomited, and developed chest pain. He reports the left anterior chest. He denies palpitations. Physical Examination: Vital signs are unremarkable. Patient sitting upright in bed no acute distress. Head neck examination unremarkable. Heart is regular rate and rhythm. Lung sounds are clear. There is no reproducible chest wall tenderness. Abdomen is soft and nontender. Right upper extremity examination reveals tenderness of the anterior right shoulder without evidence of dislocation. He has decreased range of motion secondary to pain. Palpable distal pulses are noted. He has good cap refill and sensation. Test Results: Right shoulder x-rays is unremarkable. Portable chest x-ray shows stable borderline cardiomegaly. EKG is sinus tach at 101 with no sign of acute ischemia. CBC and chemistry studies normal. Troponin negative. Emergency Department Course and Treatment: Patient is given morphine and Zofran. At this time I see no evidence of cardiac cause for his pain. He may have had some pain after his vomiting episode which was likely brought on by pain. He will be given Percocet for home and given a right arm sling. He is to follow-up with his orthopedist as soon as possible. Treatment Plan: [] Disposition: Discharge Impression: 1. Right shoulder dislocation with self reduction 2. Atypical chest pain This note was generated with [employer] dictation software. It may contain incorrect words, spelling, and punctuation that were not noted in review of the chart prior to signing ED Disposition - Plan for ED Patient: Chief Complaint: Chest Pain Referrals: Nyla Bearden MD [Primary Care Provider] - What to do if you have Problems For any increased pain, shortness of breath, bleeding, nausea or vomiting, chest pain, or any unexpected problems, contact your Primary Care Provider. Call [facility] ([phone]) or report to the closest Emergency Room. Call 911 if necessary. 07/02/18 0019 <Electronically signed by Diana Mays MD> Date Diana Mays MD Cosigner Signature (If Indicated): Date CC: Nyla Bearden MD DISCHARGE INSTRUCTION Observed: 07/01/2018 Status: F Source: [place] 6:59 PM [facility] Medical Records Department [address] [place] [address] Discharge Instruction 07/01/181856 MR#: [id number] Acct: [id number] Name: ATTILA DEL CID Rep #: [id number] : 1970 48 From: Diana Mays MD PCP: Nyla Bearden MD Status: REG ER ED Disposition - Plan for ED Patient: Disposition: Home or Assisted Living Chief Complaint: Chest Pain Instructions: ED Dislocation Shoulder Redu, ED Chest Pain Atypical Unkn Cause Prescriptions: Oxycodone HCl/Acetaminophen [Percocet 5/325] 1 tablet PO Q6H PRN PRN 5 Days #20 tablet PRN Reason: Pain Referrals: Nyla Bearden MD [Primary Care Provider] - Claribel Batista DO [STAFF PHYSICIAN] - As soon as possible What to do if you have Problems For any increased pain, shortness of breath, bleeding, nausea or vomiting, chest pain, or any unexpected problems, contact your Primary Care Provider. Call [facility] ([phone]) or report to the closest Emergency Room. Call 911 if necessary. 07/01/181858 <Electronically signed by Diana Mays MD> Date Diana Mays MD Cosigner Signature (If Indicated): Date CC: Nyla Bearden MD CBC W/DIFF, AUTOMATED Collected: 07/01/2018 Status: F Source: [place] 5:50 PM [facility] TYPE CODE TESTS RESULT OUT OF RANGE REFERENCE UNITS LAB L100.1000 4.4-11.0 K/mm3 Normal WBC 6.9 LAB L100.1200 4.6-6.2 M/mm3 Normal RBC 5.11 LAB L100.1300 13.0-16.5 g/dl Normal HGB 13.5 LAB L100.1400 40-54 % Normal HCT 42.1 LAB L100.1500 80-94 fL Normal MCV 82.4 LAB L100.1600 27.0-32.0 pg Low MCH 26.4 LAB L100.1700 32-36 g/gl Normal MCHC 32.1 LAB L100.1810 11.6-14.6 % Normal RDW CV 13.8 LAB L100.1820 35.1-43.9 fl Normal RDW SD 41.8 LAB L100.1900 150-450 K/mm3 Normal PLT 299 LAB L100.2000 6.2-12.0 fl Normal MPV 8.7 LAB L100.2100 47-70 % Normal NEUT% 52.1 LAB L100.2200 19-41 % Normal LY% 34.8 LAB L100.2300 0-10 % High MONO% 11.5 LAB L100.2400 0-5 % Normal EO% 1.2 LAB L100.2500 0-1 % Normal BASO% 0.3 LAB L100.2550 0.0-0.9 % Normal IM GRAN % 0.100 Result Comment: IG% - Immature Granulocytes (promyelocytes, myelocytes and metamyelocytes) > 1% indicates that a LEFT SHIFT is Present. LAB L100.2620 2.0-7.7 X10 3/uL Normal Absolute Neut 3.6 LAB L100.2720 0.83-4.51 X10 3/ul Normal Absolute Lymph 2.39 Performed By: #### L100.0100 #### [facility] [address]. [place], [place], [address] BASIC METABOLIC Collected: 07/01/2018 Status: F Source: [place] PROFILE (BMP) 5:50 PM [facility] TYPE CODE TESTS RESULT OUT OF RANGE REFERENCE UNITS LAB L501.0100 74-106 mg/dL Normal GLU 80 Result Comment: Please note revised GLUCOSE reference range effective 2017. LAB L501.1000 7-18 mg/dL Normal BUN 13 LAB L501.1100 0.70-1.30 mg/dL Normal CREAT,SERUM 1.02 Result Comment: The validity of the calculated GFR AND GFRAA in patients over 70 years has not been determined. Clinical correlation is essential. LAB L501.1110 >60 mL/min Normal EST GFR 83 Result Comment: Non- GFR Calc LAB L501.1115 >60 mL/min Normal EST GFR - AA 100 Result Comment: GFR Calc LAB L501.1255 ml/min Normal Estimated CRCL 94.33 LAB L501.1300 10-20 RATIO Normal BUN/CRE 12.7 LAB L501.2200 8.5-10 mg/dL Normal .1 CA 9.4 LAB L501.5300 136-14 mmol/L Normal 5 NA 141 LAB L501.5600 3.5-5. mmol/L Normal 1 K 3.7 LAB L501.5900 98-107 mmol/L High CL 108 LAB L501.6100 21.0-3 mmol/L Normal 2.0 CO2 23.0 LAB L501.6200 5-15 Normal GAP 10 Performed By: #### L500.2500, L501.4010 #### [facility] [address] [place], [place], [address] TROPONIN-I Collected: 07/01/2018 Status: F Source: [place] 5:50 PM [facility] TYPE CODE TESTS RESULT OUT OF RANGE REFERENCE UNITS LAB L501.4010 <0.045 ng/mL Normal < 0.015 TROPONIN-I Result Comment: TROPONIN-I EXPECTED VALUES <0.045 Negative 0.045 - 0.590 Consistent with Cardiac Damage > OR = 0.600 Critical Value Not every elevated troponin is indicative of MA. These values should be used with clinical judgement in examining the patient's clinical picture for diagnosis. To establish a diagnosis of MA versus myocardial injury, there must be a demonstrated rise and/or fall in the troponin values, in addition to ischemic symptoms, EKG changes, new regional wall motion abnormality, and/or angiographical evidence. PLEASE NOTE: REFERENCE RANGES EDITED 18 Performed By: #### L500.2500, L501.4010 #### [facility] [address] [place], [place], [address] CHEST 1 VIEW Observed: 07/01/2018 Status: F Source: [place] (PORTABLE) 5:36 PM [facility] Imaging Services [address] [place] [address] Chest 1 View (Portable) MR#: [id number] Acct: [id number] Name: ATTILA DEL CID Rep #: [id number] : 1970 M 48 From: Carlos Eduardo Johnson DO PCP: Nyla Bearden MD Status: REG ER Study: Chest 1 View (Portable) Date of Exam: 07/01/18 Exam# [id number] Ordering Dr: Diana Mays MD STUDY: X-RAY CHEST REASON FOR EXAM: Male, 48 years old. Chest pain. TECHNIQUE: Single AP portable view of the chest. COMPARISON: May 29, 2018. FINDINGS: Telemetry wires overlie the chest. There is a mildly improved inspiratory effort. There is no new infiltrate or mass. There is no demonstrated pleural abnormality. There is borderline cardiomegaly. Normal mediastinum and ruben. Normal visualized pulmonary arteries. Normal visualized aortic arch and descending thoracic aorta. The thoracic spine is obscured by the mediastinum. Normal visualized ribs, clavicles, and shoulders. There is no demonstrated abnormality of the visualized soft tissue structures of the upper abdomen. RAD/Chest 1 View (Portable) IMPRESSION: Stable borderline cardiomegaly without acute cardiopulmonary disease or interval change. Electronically Signed: Carlos Eduardo Johnson DO at 18:15 EDT Tel [phone], Service support , CC: Nyla Bearden MD; Diana Mays MD 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: Signed SHOULDER MIN 2 VIEWS Observed: 07/01/2018 Status: F Source: [place] 5:36 PM [facility] Imaging Services [address] [place] [address] Shoulder min 2 Views MR#: [id number] Acct: [id number] Name: ATTILA DEL CID Rep #: [id number] : 1970 M 48 From: Carlos Eduardo Johnson DO PCP: Nyla Bearden MD Status: REG ER Study: Shoulder min 2 Views Date of Exam: 07/01/18 Exam# [id number] Ordering Dr: Diana Mays MD STUDY: X-RAY - RIGHT SHOULDER REASON FOR EXAM: Male, 48 years old. Pain. TECHNIQUE: 2 view(s) of the shoulder. COMPARISON: None. FINDINGS: Normal glenohumeral articulation. Normal acromioclavicular joint. Normal acromion. There is no acute fracture, dislocation or destructive osseous pathology. Normal humeral head and visualized proximal humerus. The soft tissue structures are unremarkable. Normal visualized pulmonary apex. RAD/Shoulder min 2 Views IMPRESSION: Normal x-ray examination of the shoulder. Electronically Signed: Carlos Eduardo Johnson DO at 18:22 EDT Tel [phone], Service support , CC: Nyla Bearden MD; Diana Mays MD 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: Signed ED NOTE Observed: 06/28/2018 Status: COMPLETED Source: [place] 12:27 AM [facility] HOSPITAL REPOSITORY HNO ID: [id number] Author: Brie AminRn) ALE Chau Service: Emergency Medicine Author Type: Registered Nurse Type: ED Notes Filed: 06/28/2018 12:28 AM Note Text: Patient informed: the name of medication, why we are giving it, possible side effects, what they may expect to feel, and was offered a chance to ask questions, prior to the administration of morphine and phenergan ED PROV NOTE Observed: 06/28/2018 Status: COMPLETED Source: [facility] 12:27 AM [facility] REPOSITORY HNO ID: [id number] Author: Galileo Ruvalcaba MD Service: Emergency Medicine Author Type: Physician Type: ED Provider Notes Filed: 06/28/2018 12:47 AM Note Text: ED Provider Note Patient Name: Attial Del Cid SERVICE DATE: 06/28/18 History Patient presents with: Flank Pain 48-year-old male, medical problems reviewed in chart. Presents with kidney stone pain. Apparently known multitude of kidney stones. Scheduled on 07/10/[address] Perez for either removal or lithotripsy of the stones. Continues to have pain. Somewhat worse today, he states after mowing the grass. Bilateral flank area discomfort. No fevers. No chills. Slight nausea at times. Slight loose stool as well, no melena or hematochezia. No anterior abdominal pain. No chest pain. No shortness of breath, cough, sputum, hemoptysis. No extremity injuries or complaints. PAST MEDICAL HISTORY Diagnosis Date - Acute right flank pain 03/25/2018 - Aneurysm of ascending aorta (HCC) - Aortic aneurysm (HCC) - Arthritis - Atrial fibrillation (HCC) - Calculi, ureter - Calculus of kidney - Hematuria - Hypertension - Kidney stones 03/25/2018 - Pneumonia - Psychiatric disorder anxiety PAST SURGICAL HISTORY Procedure Laterality Date - BACK SURGERY HX 2015 FUSION, L4-L5 - COLONOSCOP W/ OR W/O BRSH SPEC 05/14/2014 Colonoscopy - EGD W/O OR W/BRUSH/WASH 05/14/2014 EGD - FRAGMENTING/KIDNEY STONE Right 2017 Lithotripsy - KNEE SURGERY HX Right 03/2017 patella replacement - [place] ANESTH,KNEE JOINT; NOS 12/2017 Left FAMILY HISTORY Problem Relation Age of Onset - Diabetes Mother - Colon Cancer Mother - Heart disease Mother - Hypertension Mother - Diabetes Sister - Skin Cancer Father Social History Social History Main Topics - Smoking status: Never Smoker - Smokeless tobacco: Never Used - Alcohol use No - Drug use: No - Sexual activity: Not on file ALLERGIES Allergen Reactions - Celebrex [Celecoxib] Vomiting Nausea - Clonidine Rash - Fentanyl GI Upset - Levofloxacin Rash pt reports to [facility] PT 04-13-2017 - Penicillin G Rash - Relpax [Eletriptan * Vomiting Nausea - Topamax [Topiramate] Vomiting - Vicodin [Hydrocodon* Vomiting - Wellbutrin [Bupropi* Vomiting Nausea Review of Systems Constitutional: Negative for diaphoresis and fever. HENT: Negative for dental problem, ear pain, rhinorrhea and sore throat. Eyes: Negative for pain and discharge. Respiratory: Negative for cough, chest tightness and shortness of breath. Cardiovascular: Negative for chest pain, palpitations and leg swelling. Gastrointestinal: Negative for abdominal pain, diarrhea, nausea and vomiting. Endocrine: Negative for polyphagia and polyuria. Genitourinary: Positive for flank pain and frequency. Negative for difficulty urinating, discharge, dysuria, genital sores, penile pain and urgency. Musculoskeletal: Negative for back pain, gait problem and neck pain. Skin: Negative for rash and wound. Allergic/Immunologic: Negative for immunocompromised state. Neurological: Negative for dizziness, seizures, weakness and headaches. Hematological: Does not bruise/bleed easily. Psychiatric/Behavioral: Negative for agitation and confusion. All other systems reviewed and are negative. Physical Exam BP 141/96 Pulse 78 Temp (Src) 97.8 (Temporal Artery) Resp 20 Ht 5' 11 (1.80m) Wt 238 lb (108.0kg) SpO2 98% BMI 33.21 kg/(m2). Physical Exam Constitutional: He is oriented to person, place, and time. He appears well-developed and well-nourished. No distress. HENT: Head: Normocephalic and atraumatic. Mouth/Throat: No oropharyngeal exudate. Eyes: Pupils are equal, round, and reactive to light. EOM are normal. Right eye exhibits no discharge. Left eye exhibits no discharge. Neck: Normal range of motion. Neck supple. No tracheal deviation present. Cardiovascular: Normal rate, regular rhythm, normal heart sounds and intact distal pulses. No murmur heard. Pulmonary/Chest: No stridor. No respiratory distress. He has no wheezes. He has no rales. Abdominal: Soft. Bowel sounds are normal. He exhibits no distension. complains of bilateral flank pain, but no significant tenderness to percussion. No rashes. Musculoskeletal: Normal range of motion. He exhibits no edema or deformity. Neurological: He is alert and oriented to person, place, and time. He exhibits normal muscle tone. Coordination normal. CN II-VII intact, swallowing intact Skin: Skin is warm and dry. No rash noted. Psychiatric: He has a normal mood and affect. Judgment normal. Nursing note and vitals reviewed. Diagnostic Testing ED Labs Ordered and Reviewed URINALYSIS (AV,EU,FV,HL,ALLY,MM,SP) Procedures ED Course / Clinical Impression Clinical Impressions as of Jun 28 46 Kidney stones MDM / Disposition / Plan patient presents with flank pain. Ongoing kidney stone. Follow-up with urology and apparently scheduled for some type of procedure. He is nontoxic, no fever, does not appear in overt distress per se. He has had a multitude of CT scans in the past, as well as topical ultrasounding. I do not feel repeat imaging warranted given nontoxic appearance. Urinalysis will be evaluated for the possibility of infection. If no significant infection, patient will be discharged with outpatient analgesics. He is currently on Flomax. Understands to maintain hydration. Has Zofran at home. He will be written for Phenergan and short course of Percocet. Pharmacy board report review was noted, he has received several short courses of narcotics during these episodes of kidney stones, but again is awaiting surgery by urology for purported ureterolithiasis. urinalysis is negative. No pyuria. No marked hematuria either. At this time, again given nontoxic clinical appearance, extensive evaluations over the last several weeks for the same, did not feel repeat labs or imaging or intent. He will be discharged. Phenergan to try instead of Zofran at home. Only 3 days percocet given emergency setting, and close outpatient urologic follow-up. The patient was DISCHARGED: Counseled patient regarding suspected diagnosis AND need for follow-up. Discharged home with verbal and written instructions. They were instructed to return as needed for persistent or worsening symptoms or any new concerns. Condition at time of disposition: improved and stable SIGNATURE: MD Galileo Carbajal MD 06/28/18 0047 ED NOTE Observed: 06/28/2018 Status: COMPLETED Source: [place] 12:18 AM [facility] REPOSITORY HNO ID: [id number] Author: Brie (Rn) ALE Chau Service: Emergency Medicine Author Type: Registered Nurse Type: ED Notes Filed: 06/28/2018 12:18 AM Note Text: urine specimen obtained and sent. URINALYSIS ROUTINE Collected: 06/28/2018 Status: F Source: [facility] 12:15 AM HEALTH SYSTEM REPOSITORY TYPE CODE TESTS RESULT OUT OF RANGE REFERENCE UNITS LAB LCOLR(LOIN C) Urine Color YELLOW LAB LAPPU(LOIN C) Urine Appearance CLEAR LAB LGLUR(LOIN Negative C) Glucose Urine NEGATIVE LAB LKETO(LOIN Negative C) Ketone Urine NEGATIVE LAB LHGBU(LOIN Negative C) Abnormal Hemoglobin,Urin TRACE-INTACT e LAB LPRTU(LOIN Negative C) Protein Urine NEGATIVE LAB LNITR(LOIN Negative C) Nitrites Urine NEGATIVE LAB LBILU(LOIN Negative C) Bilirubin Urine NEGATIVE LAB LSPG(LOINC 1.005-1.030 ) Specific 1.025 [place], Ur LAB LPHUR(LOIN 5.0-8.0 C) pH,Urine 7.0 LAB LUROB(LOIN 0.0-1.0 EU/dL C) Urobilinogen,Ur 1.0 LAB LLEUK(LOIN Negative C) Leukocytes NEGATIVE Esterase LAB LWBCU(LOIN 0-5 /hpf C) WBC, Urine 0-2 LAB LRBCU(LOIN 0-3 /hpf C) RBC,Urine 0-3 LAB LEPIT(LOIN 0-5 /hpf C) Ep Cells Urine NONE LAB LAMPH(LOIN None C) Abnormal Amorphous FEW Phosphates Performed By: #### HORTENSIA #### [place] [address] INTERNAL MEDICINE Observed: 06/27/2018 Status: F Source: [facility] OFFICE VISIT 10:20 AM [facility] Internal Medicine [address] [place] [address] [place] [address] OFFICE VISIT Date of Service: 06/27/18 MR#: [id number] Acct: [id number] Name: ATTILA DEL CID Rep #: [id number] : 1970 Provider: Tawanda Colon NP Age/Sex: 48/M Location: [facility] Status: Signed Intake Vital Signs06/27/18 Height 5 ft 11 in 06/27/18 Weight: 239 lb 06/27/18 Body Mass Index (BMI) 33.3 06/27/18 Blood Pressure 141/97 Intake Visit Reasons: SICK PAST COUPLE DAYS, REQ MAY Chief Complaint: Vomiting AND diarrhea Is patient in pain?: Yes (Stomach) Pain scale (1-10): 4 Allergies clonidine Allergy (Intermediate, Verified 06/27/18 08:48) rash levofloxacin [From Levaquin] Allergy (Verified 06/27/18 08:48) Rash Penicillins Allergy (Verified 06/27/18 08:48) Hives bupropion Adverse Reaction (Intermediate, Verified 06/27/18 08:48) vomiting celecoxib [From Celebrex] Adverse Reaction (Intermediate, Verified 06/27/18 08:48) vomiting eletriptan Adverse Reaction (Intermediate, Verified 06/27/18 08:48) Vomiting topiramate [From Topamax] Adverse Reaction (Intermediate, Verified 06/27/18 08:48) vomiting hydrocodone bitartrate [From Vicodin] Adverse Reaction (Verified 06/27/18 08:48) Nausea Medications Pantoprazole Sodium [Protonix] 40 mg PO DAILY 04/22/16 [History Confirmed 06/27/18] Albuterol Inhaler [Ventolin Hfa] 1 - 2 puff INHALATION Q4H PRN PRN #1 inhaler 07/15/17 [Rx Confirmed 06/27/18] Apixaban [Eliquis] 5 mg PO BID 09/21/17 [History Confirmed 06/27/18] amlodipine 5 mg tablet 5 mg PO DAILY #90 tab 02/26/18 [Rx Confirmed 06/27/18] Aspirin [Aspir-Low] 81 mg PO QDAY 04/09/18 [History Confirmed 06/27/18] lisinopril 20 mg tablet 20 mg PO BID #60 tab 04/18/18 [Rx Confirmed 06/27/18] atorvastatin 20 mg tablet 20 mg PO QDAY #90 tab 04/28/18 [Rx Confirmed 06/27/18] escitalopram 10 mg tablet 15 mg PO QDAY #90 tab 04/28/18 [Rx Confirmed 06/27/18] Sotalol Hydrochloride [Betapace (Beta Carolee)] 120 mg PO BID #90 tab 05/18/18 [Rx Confirmed 06/27/18] Peg 400/Hypromellose/Glycerin [Visine Tears Drops] 15 ml OP QWEEK PRN 05/29/18 [History Confirmed 06/27/18] Gabapentin [Neurontin] 100 mg PO QHS 06/17/18 [History Confirmed 06/27/18] Meclizine HCl [Antivert] 12.5 mg PO BID PRN 06/17/18 [History Confirmed 06/27/18] Tamsulosin HCl [Flomax] 0.4 mg PO DAILY 06/17/18 [History Confirmed 06/27/18] PFSH Medical History SVT (supraventricular tachycardia) (Chronic) LORETTA (obstructive sleep apnea) (Chronic) Atherosclerotic heart disease of [place] coronary artery without angina pectoris (Chronic) Nephrolithiasis (Chronic) HTN (hypertension) (Chronic) Anxiety (Chronic) PAF (paroxysmal atrial fibrillation) (Chronic) GERD (gastroesophageal reflux disease) (Chronic) Obesity (BMI 30-39.9) (Chronic) BPPV (benign paroxysmal positional vertigo) (Chronic) HLD (hyperlipidemia) (Chronic) Thoracic aortic aneurysm without rupture (Chronic) Surgical History History of left heart catheterization (Chronic) History of cardiac radiofrequency ablation (Resolved) H/O arthroscopic knee surgery (Resolved) History of back surgery (Resolved) History of right knee surgery (Resolved) Family History Brother Hypertension Mother Heart disease Colon cancer Sister Diabetes Sister Diabetes Sister Diabetes Social History Smoking Status: Never smoker alcohol intake: never substance use type: does not use caffeine: No what type of physical activity do you participate in: walking frequency: 1-2 times per week duration: 15-30 minutes/day seatbelt use: always do you feel safe at home: Yes HPI HPI Chief Complaint: Vomiting AND diarrhea Details: ATTILA DEL CID, is a 48 M who presents to the office today for acute visit of vomiting and diarrhea. Patient's past medical history includes LORETTA, hypertension, anxiety, PAF, GERD, obesity, HLD, and atherosclerotic heart disease. Patient stated his vomiting diarrhea started 3 days ago and resolved yesterday morning. He stated he had multiple vomiting and diarrhea episodes 3-4 per day. He denies any recent sick contacts or any recent suspicious food intake. He stated he has been taking Zofran and Imodium [id number] which has been effective. He stated he has been drinking Gatorade and water the past couple days. He stated he does have tenderness to his upper epigastric area and occasional mild headaches to frontal area and describes as dull. The patient otherwise denies any fever, chills, current nausea or vomiting, shortness of breath, chest pain or pressure, palpitations, orthopnea, lower extremity edema, syncope or presyncopal episodes. ROS Const Constitutional: Positive for headache(s); no chills, fatigue, fever(s), frequent falls, malaise, weakness, sleep problems or change in appetite Eyes Eyes: No blurry vision, change in vision, double vision, discharge or visual disturbances ENT ENT: Positive for headache(s); no abnormal hearing, ear pain, ear pressure, tinnitus or dizziness/vertigo Resp Respiratory: No cough, shortness of breath or wheezing Cardio Cardiology: No chest pain at rest, chest pain with exertion, shortness of breath, dyspnea on exertion, generalized swelling, irregular heart rhythm, lightheadedness, orthopnea, fast heart rate or palpitations Gastro GI: Positive for abdominal pain (upper epigastric), diarrhea (resolved) and vomiting (resolved); no change in bowel habits, constipation or nausea/dyspepsia Genitourinary Male: No difficulty urinating, burning urination, painful urination, urinary incontinence, urinary frequency, urinary urgency, urinary hesitancy, urinary retention, blood in urine, Frequent nighttime urination/ nocturia, sexual problems, testicle lump or testicle pain Musc Musculoskeletal: No joint pain, back pain, joint swelling, limited range of motion, muscle weakness, numbness or tingling Skin Skin: No change in skin color, itching, rash or wounds Breast Breast: No breast lump or breast pain Neuro Neurology: Positive for headache(s); no frequent falls, weakness, abnormal hearing, numbness, tingling, unsteady gait/balance, dizziness, loss of vision, memory loss or visual disturbances Psych Psychiatric: No memory loss, No anxiety, No change in appetite, No depression, No Thoughts of harming yourself/Others Endo Endocrine: No fatigue, heat intolerance, increased thirst/drinking, increased hunger or increased urination Aller/Imm Allergy/Immunologic: No wheezing, itchy eyes or seasonal allergy symptoms Matias/Lymp Hematologic/Lymphatic: No easy bleeding, easy bruising or enlarged lymph nodes Exam Const General: cooperative, comfortable, no acute distress Nutritional Appearance: average body habitus, well nourished Orientation: alert, oriented x3 Limitations: mental status not altered [facility] Head: normal to inspection Ears: hearing grossly normal bilaterally Nose: external nose normal Eyes General: appearance normal, both eyes and all related structures Resp Effort AND Inspection: normal respiratory effort, able to speak in complete sentences, normal respiratory pattern, symmetric chest movement, no audible wheezes, no cough Auscultation: Bilateral: Clear to Auscultation Cardio Palpation: normal PMI Rate: regular rate Heart Sounds: S1 normal, S2 normal, normal S1 and S2, no click, no gallops, no murmurs, no rubs GI Inspection: normal to inspection Auscultation: normal bowel sounds Percussion: normal to percussion Palpation: soft, tender (upper epigastric region with palpation) General: CVA tenderness (mild hx of kidney stones follows urology) on the right Musc Musculoskeletal: No muscle weakness Skin General: no rashes or lesions noted, elasticity normal, turgor normal Lesions: no lesions Rashes: no rashes Neuro General: alert, awake, oriented x3, CN's II-XI intact bilaterally Speech: speech normal Gait: normal gait Motor: muscle tone normal throughout Extrem General: normal to inspection, normal gait, no edema, no pedal edema Psych Appearance: grossly normal Mental Status: mental status grossly normal Affect: normal affect Attitude: cooperative Thought Process: normal Assessment AND Plan 1. Viral gastroenteritis A08.4 Plan Symptoms have resolved of vomiting and diarrhea patient encouraged to continue with conservative management. Increase fluid intake with water and Gatorade and okay to take as needed Zofran, which he already has. Discussed red flag symptoms and when to seek urgent medical attention. Follow-up as previously scheduled or symptoms worsen 2. Right flank pain, chronic R10.9; G89.29 Plan Mild right CVA tenderness. Follows with urology. Plan Detail Other Medications Discontinued: Follow Up Follow-up as previously scheduled or symptoms worsen Coding Level of Care Code Off vis,est,level 3 Diagnoses Viral gastroenteritis A08.4 Right flank pain, chronic R10.9; G89.29 06/27/18 1020 <Electronically signed by Tawanda KLEIN> Date Tawanda KLEIN Cosigner Signature: Date (if applicable) CC: RADHA Observed: 06/25/2018 Status: COMPLETED Source: [facility] 12:00 AM CLINIC OTHER CAMPUS REPOSITORY Telephone (AKURGR) ATTILA DEL CID ([id number]) 1970 M T Date Time Provider Department 06/25/18 CAMRON PEREZ During your visit today, we recorded the following information about you: Camron Perez MD 06/25/2018 11:16 AM Signed Call pt ; his US shows possible blockage still on the right ; This is the US from 06/17 ; Is he still having pain? If so does he want to scheudle surgery or just wait and see Li Fonseca [facility] 06/25/2018 12:47 PM Signed Left message on phone to return call to office. Linda Fonseca Teller Supervisor Linda Fonseca [facility] 06/26/2018 9:07 AM Signed Pt notified and states he would like to move forward with SURGERY: Pt states he also had CT done at [facility] - requesting results now Linda Fonseca [facility] Allergies As of Date: 06/25/2018 Noted Allergy Reaction CELEBREX (CELECOXIB) 07/17/2016 11 - Vomiting Comments: Nausea CLONIDINE 07/17/2016 2 - Rash FENTANYL 07/17/2016 8 - GI Upset LEVOFLOXACIN 04/13/2017 2 - Rash Comments: pt reports to [facility] PT --2016 PENICILLIN G 12/30/2013 2 - Rash RELPAX (ELETRIPTAN HBR) 07/17/2016 11 - Vomiting Comments: Nausea TOPAMAX (TOPIRAMATE) 07/17/2016 11 - Vomiting VICODIN (HYDROCODONE-ACETAMINOPHE*12/30/2013 11 - Vomiting WELLBUTRIN (BUPROPION HCL) 07/17/2016 11 - Vomiting Comments: Nausea Date Reviewed: 06/15/2018 Reviewed by: Destiny Sloan) ALE Gallo - Fully Assessed Reason for Visit: Results [95] Prescriptions as of 06/25/2018 Sig: ONDANSETRON 4 MG DISINTEGRATI* Take 1 tablet by mouth every * METHOCARBAMOL 750 MG TABLET Take 1 tablet by mouth four t* LIDOCAINE 5 % TOPICAL PATCH Apply 1 Patch as directed guerrero* DIVALPROEX 250 MG TABLET,LASHAE* Take 1 tablet by mouth twice * ATORVASTATIN 20 MG TABLET every day ESCITALOPRAM 10 MG TABLET every day AMLODIPINE 5 MG TABLET Take 5 mg by mouth once daily. BABY ASPIRIN ORAL Take 1 tablet by mouth once d* TAMSULOSIN 0.4 MG CAPSULE every day GABAPENTIN 300 MG CAPSULE APIXABAN 5 MG TABLET Take by mouth twice daily. MECLIZINE 12.5 MG TABLET Take 2 tablets by mouth twice* LISINOPRIL 20 MG TABLET Take 1 tablet by mouth once d* PANTOPRAZOLE 40 MG TABLET,DEL* Take 1 tablet by mouth once d* ALBUTEROL SULFATE HFA 90 MCG/* Inhale 2 Puffs as instructed * Problem List As Of Date 06/25/2018 Noted Resolved Primary osteoarthritis of right knee [M17.11] INVALID FOR* Chest pain at rest [R07.9] INVALID FOR* HTN (hypertension) [I10] INVALID FOR* Atrial fibrillation (HCC) [I48.91] INVALID FOR* More... 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 Renal calculus, right [N20.0] INVALID FOR* TIA (transient ischemic attack) [G45.9] INVALID FOR* Priority: A Encounter Status:Closed by CAMRON PEREZ MD on 06/25/18 Observed: 06/21/2018 Status: F Source: [employer] CULTURE URINE 11:00 PM SYSTEM REPOSITORY CULTURE URINE --> Status: F No growth (<1,000 CFU/ml). Performed By: #### UAMAC, UAMIC #### [facility] [address] [place] [id number] #### C/UR #### [facility] [address] [place] [id number] TROPONIN I Collected: 06/21/2018 Status: F Source: [facility] 9:27 PM SYSTEM REPOSITORY TYPE CODE TESTS RESULT OUT OF RANGE REFERENCE UNITS LAB TROP4 0.000-0.034 ng/mL Normal Troponin I < 0.012 Result Comment: 0.046 - 0.400 = Indeterminate > 0.400 = Consider Myocardial Injury Performed By: #### TROPN #### [employer] [facility] [address] [place] [address] CTA CHEST W/ + W/O Observed: 06/21/2018 Status: F Source: [facility] [facility] CONTRAST 7:42 PM SYSTEM REPOSITORY Patient Name: ATTILA DEL CID CT Exam Date/Time 06/21/2018 19:24:51 EDT Exam CTA Chest w/ + w/o Contrast Ordering Physician [place] POOLE GINA Accession Number [id number] CPT4 Codes 92115 (), Q9967 () Reason For Exam cp, hx of thoracic aneursym Report Reasons for examination: Chest pain/ shortness of breath. Noncontrast CT the chest is first ordered and performed showing some coronary artery calcified plaques CT scan of the chest were performed with bolus contrast and high resolution scans for CT pulmonary angiographic study, with images post-processed by myself on [employer] workstation, with 3D - volume rendered CT and MPR angiographic images reconstructed. The heart size is normal, and there are no pericardial or pleural effusions. There are no congestive changes in the pulmonary vasculature. 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 Probable small calcified granuloma upper right superior mediastinum CT pulmonary angiographic examination is a high quality study, which demonstrates no evidence of acute pulmonary embolism. The right side of the heart, pulmonary outflow tract, right and left main, lobar, and larger segmental pulmonary arteries all appear clear. Note that the technique is limited for detection of small, subsegmental, peripheral emboli, but none are seen. IMPRESSION: 1.Negative CT scan of the chest for evidence of acute pulmonary embolism. 2. Mild coronary artery calcified plaquing with normal heart size with dilatation of ascending thoracic aorta (4.6 cm) Report Dictated on Final Dictated: 06/21/2018 7:42 pm Dictating Physician: MD CRUZ WILLIAM Signed Date and Time: 06/21/2018 7:48 pm Signed by: MD CRUZ WILLIAM Transcribed Date and Time: 06/21/2018 7:42 CT ABDOMEN/PELVIS W/O Observed: 06/21/2018 Status: F Source: [facility] [facility] CONTRAST 7:37 PM SYSTEM REPOSITORY Patient Name: ATTILA DEL CID CT Exam Date/Time 06/21/2018 19:24:[address] Abdomen/Pelvis (No PO, No IV) Ordering Physician [place] POOLE GINA Accession Number [id number] CPT4 Codes 04329 (CT Abdomen/Pelvis (No PO, No IV)) Reason For Exam right flank pain, hx right kidney stone with hydronephrosis Report HISTORY: Right flank pain with history of renal calculi Noncontrast CT abdomen / pelvis is performed. Multiple areas of medullary calcification are present in both kidneys-this appears to have slightly increased since examination of 11/08/2015. No hydronephrosis or hydroureter is present. The bladder is nondistended. Degenerative changes spine are present with prior surgery at the L4-5 level with fusion with pedicle screws and prosthetic intervertebral disc. No free air or free fluid or other acute finding is present. Appendix is identified and appears normal. IMPRESSION: 1. Increasing areas of medullary calcification are seen in both kidneys since the previous exam of 10/29/2015 but without evidence of obstruction 2. Prior spinal fusion at the L4-5 level Report Dictated on Final Dictated: 06/21/2018 7:37 pm Dictating Physician: MD CRUZ WILLIAM Signed Date and Time: 06/21/2018 7:42 pm Signed by: MD CRUZ WILLIAM Transcribed Date and Time: 06/21/2018 7:37 CR CHEST PORTABLE Observed: 06/21/2018 Status: F Source: [employer] 7:31 PM SYSTEM REPOSITORY Patient Name: ATTILA DEL CID Diagnostic Radiology Exam Date/Time 06/21/2018 19:29:00 EDT Exam CR Chest Portable Ordering Physician [place] POOLE GINA Accession Number [id number] CPT4 Codes 66226 () Reason For Exam cp sob Report PORTABLE CHEST Clinical indication: cp sob Comparison: 01/18/2016. The heart appears mildly enlarged and increased in size since the prior exam. Lungs are clear. No pleural effusions are noted. IMPRESSION: Mild increase in cardiac size compared to the prior study Report Dictated on Workstation: [id number] Final Dictated: 06/21/2018 7:31 pm Dictating Physician: MD CORTES DIANE Signed Date and Time: 06/21/2018 7:32 pm Signed by: MD CORTES DIANE Transcribed Date and Time: 06/21/2018 7:31 HEMOGRAM W/ AUTODIFF Collected: 06/21/2018 Status: F Source: [employer] 6:29 PM SYSTEM REPOSITORY TYPE CODE TESTS RESULT OUT OF REFERENCE UNITS RANGE LAB IWBC 3.6-10.7 10*3/uL WBC Normal 6.1 LAB RBC 4.40-5.90 10*6/uL RBC Normal 4.86 LAB HGB 13.0-18.0 g/dL Hemoglobin Normal 13.4 LAB HCT 40.0-52.0 % Low Hematocrit 39.8 LAB MCV 80.0-98.0 fL MCV Normal 81.8 LAB MCH 26.0-34.0 pg MCH Normal 27.7 LAB MCHC 32.0-36.0 % MCHC Normal 33.8 LAB RDW 11.5-14.5 % RDW High 15.3 LAB PLT 140-440 10*3/uL Platelet Normal 332 LAB MPV 7.4-10.4 fL MPV Normal 7.4 LAB GRAN% 40.0-80.0 % Granulocytes Normal 55.0 LAB LYMP% 20.0-40.0 % Lymphocytes Normal 33.6 LAB MONO% 2.0-10.0 % Monocytes Normal 8.6 LAB EOS% 1.0-6.0 % Eosinophils Normal 2.0 LAB BAS% 0.0-2.0 % Basophils Normal 0.8 LAB ANC 1.8-7.0 10*3/uL Abs Normal Neutrophile Cnt 3.4 LAB ALC 1.0-4.3 10*3/uL Abs Lymph Cnt Normal 2.1 LAB AMC 0.0-0.8 10*3/uL Abs Monocyte Normal Cnt 0.5 LAB AEC 0.0-0.5 10*3/uL Abs Eosin Cnt Normal 0.1 LAB ABC 0.0-0.2 10*3/uL Abs Baso Cnt Normal 0.0 Performed By: #### HEMDF, BMP3, PT/AP, TROPN #### [facility] [address] [place] [address] BASIC METABOLIC PANEL Collected: 06/21/2018 Status: F Source: [employer] 6:29 PM SYSTEM REPOSITORY TYPE CODE TESTS RESULT OUT OF RANGE REFERENCE UNITS LAB NA3 137-145 mmol/L Sodium Normal 140 LAB K3 3.5-5.1 mmol/L Normal Potassium 4.2 LAB CL3 98-107 mmol/L Chloride Normal 106 LAB CO23 22-30 mmol/L Carbon Normal Dioxide 26 LAB ANIN3 NA Anion Gap 7 LAB GLUC3 70-100 mg/dL Low Glucose 58 LAB BUN3 7-20 mg/dL Urea Normal Nitrogen 17 LAB CRET3 0.52-1.25 mg/dL Normal Creatinine 0.99 LAB GF3BR >60 mL/min eGFR > 60.0 LAB GF3WR >60 mL/min eGFR OTHER > 60.0 Result Comment: Source- MDRD equation with creatinine calibration to IDMS(NKDEP) eGFR not recommended for drug dose adjustment LAB CA3 8.4-10.4 mg/dL Normal Calcium 9.0 Performed By: #### HEMSUZAN, BMP3, PT/AP, TROPN #### [facility] [address] [place] [address] PROTIME AND APTT Collected: 06/21/2018 Status: F Source: [employer] 6:29 PM SYSTEM REPOSITORY TYPE CODE TESTS RESULT OUT OF REFERENCE UNITS RANGE LAB PROTM 9.0-12.0 s Prothrombin Normal Time 9.6 Result Comment: . LAB INR 0.90-1.10 NA Normal INR 0.95 Result Comment: Recommended Anticoagulant Therapy: SEE BELOW ----- INR of 2.0 - 3.0 : - Prophylaxis of Venous Thrombosis (high-risk surgery) - Treatment of Venous Thrombosis - Treatment of Pulmonary Embolism (Includes tissue heart valves, Acute Myocardial Infarction to prevent systemic embolism, Valvular Heart Disease, and Atrial Fibrillation) ----- INR of 2.5 - 3.5 : - Mechanical Prosthetic Valves (high risk) - If oral anticoagulant therapy is used to prevent Myocardial Infarction LAB PTTA 20.0-30.5 s Normal APTT 23.0 Result Comment: NOTE: The therapeutic time for Heparin anticoagulation, based on Xa activity inhibition, is an APTT of 46-80 seconds. Performed By: #### HEMDF, BMP3, PT/AP, TROPN #### [facility] [employer] [id number] [place] [address] TROPONIN I Collected: 06/21/2018 Status: F Source: [employer] 6:29 PM SYSTEM REPOSITORY TYPE CODE TESTS RESULT OUT OF RANGE REFERENCE UNITS LAB TROP4 0.000-0.034 ng/mL Normal Troponin I < 0.012 Result Comment: 0.046 - 0.400 = Indeterminate > 0.400 = Consider Myocardial Injury Performed By: #### HEMDF, BMP3, PT/AP, TROPN #### [facility] [employer] [address] [place] [address] URINALYSIS,MACRO Collected: 06/21/2018 Status: F Source: [employer] 6:29 PM SYSTEM REPOSITORY TYPE CODE TESTS RESULT OUT OF REFERENCE UNITS RANGE LAB APPUR Clear NA Appearance Clear LAB COLUR Lt. Yellow NA Color Yellow LAB USG 1.005-1.030 NA Specific Normal [place],Urine 1.015 LAB UPH 5.0-8.0 NA pH,Urine Normal 7.0 LAB ULUK Negative NA Leukocytes Trace LAB UNIT Negative NA Nitrites NEG LAB UPRO Negative mg/dL Total Protein,Urine NEG LAB UGLU Negative mg/dL Glucose,Urine NEG (Normal) LAB UKET Negative mg/dL Ketone,Urine Negative LAB UURO 0-1 mg/dL Urobilinogen 1.0 LAB UBIL Negative NA Bilirubin,Ur Negative LAB UBLD Negative {RBC}/uL Occult Blood,Ur Negative Performed By: #### UAMAC, UAMIC #### [facility] [address] [place] [address] #### C/UR #### [facility] [address] [place] [phone] URINALYSIS,MICROSCOPIC Collected: Status: F Source: [employer] 06/21/2018 6:29 PM HEALTH SYSTEM REPOSITORY TYPE CODE TESTS RESULT OUT OF REFERENCE UNITS RANGE LAB VOLUR NA 12 Volume,Urine ml LAB WBCU 0-5 /[HPF] 6 WBC,Urine - 10 LAB RBCU 0-2 /[HPF] RBC,Urine Negative LAB EPIU 3-5 /[HPF] 0 Epithelial Cells - 2 LAB CRISTINA Negative NA Bacteria Negative Performed By: #### UAMAC, UAMIC #### [facility] [address] [place] [address] #### C/UR #### [facility] [address] [place] [address] EMERGENCY DEPARTMENT Observed: 06/17/2018 Status: F Source: [facility] SUMMARY 11:46 PM [facility] REPOSITORY [facility] Medical Records Department [address] [place] [address] Emergency Department Summary 06/17/18 2338 MR#: [id number] Acct: [id number] Name: ATTILA DEL CID Rep #: [id number] : 1970 48 From: Attila Johnson MD PCP: Nyla Bearden MD Status: REG ER - ER Visit Summary Date of Service: 06/17/18 Chief Complaint: Flank pain History of Present Illness: The patient is a 48 M with right sided flank pain. The patient has a long history of kidney stones and follows with Dr. Perez. This episode has been going on for several days, intermittently. Patient denies any current urinary symptoms, but he does have occasional difficulty urinating. Denies bleeding or burning. No fever or systemic symptoms. No nausea, vomiting, diarrhea, or GI symptoms. Physical Examination: Afebrile and vital signs unremarkable. Appears uncomfortable but not in acute distress. Heart regular. Abdomen soft and nontender. Mild right CVA tenderness. Skin appears normal. Test Results: White count 11.2 and hemoglobin 12.0, potassium 3.3 and chloride 110. Urinalysis unremarkable. Ultrasound showed right renal stones with mild hydronephrosis. Emergency Department Course and Treatment: Patient had a CT of his abdomen and pelvis just about a month ago. It showed multiple right side renal stones. The largest stone was 4.1 mm. We discussed the risks and benefits of repeating the CAT scan and elected to order an ultrasound. This showed mild hydronephrosis. Urinalysis unremarkable. Labs fairly unremarkable. Patient's pain is much improved. He would like to try outpatient follow-up. I advised him that he should return if he has difficulty following up or any new or worsening symptoms. He will continue his Flomax. We will add a short course of Percocet. He was referred to urology. Treatment Plan: As above Disposition: Discharged Impression: 1. Right ureteral colic This note was generated with [employer] dictation software. It may contain incorrect words, spelling, and punctuation that were not noted in review of the chart prior to signing ED Disposition - Plan for ED Patient: Chief Complaint: Flank Pain Referrals: Nyla Bearden MD [Primary Care Provider] - What to do if you have Problems For any increased pain, shortness of breath, bleeding, nausea or vomiting, chest pain, or any unexpected problems, contact your Primary Care Provider. Call [facility] ([phone]) or report to the closest Emergency Room. Call 911 if necessary. 06/17/186 <Electronically signed by Attila Johnson MD> Date Attila Johnson MD Cosigner Signature (If Indicated): Date CC: Nyla Bearden MD DISCHARGE INSTRUCTION Observed: 06/17/2018 Status: F Source: [facility] 11:46 PM [facility] REPOSITORY [facility] Medical Records Department [address] [place] [address] Discharge Instruction 06/17/18 2343 MR#: [id number] Acct: [id number] Name: ATTILA DEL CID Rep #: [id number] : 1970 48 From: Attila Johnson MD PCP: Nyla Bearden MD Status: REG ER ED Disposition - Plan for ED Patient: Chief Complaint: Flank Pain Instructions: ED Stone Renal W Colic Prescriptions: Oxycodone HCl/Acetaminophen [Percocet 5/325] 1 tab PO Q6H PRN PRN 3 Days #12 tab PRN Reason: Pain Referrals: Ce Gilbert MD [STAFF PHYSICIAN] - Darwin Moreira MD [STAFF PHYSICIAN] - What to do if you have Problems For any increased pain, shortness of breath, bleeding, nausea or vomiting, chest pain, or any unexpected problems, contact your Primary Care Provider. Call [facility] ([phone]) or report to the closest Emergency Room. Call 911 if necessary. 06/17/18 2346 <Electronically signed by Attila Johnson MD> Date Attila Johnson MD Cosigner Signature (If Indicated): Date CC: Nyla Bearden MD URINALYSIS, COMPLETE Collected: 06/17/2018 Status: F Source: [facility] 10:45 PM [facility] REPOSITORY Order Comment: Order Date: 06/17/18 How was Urine Obtained? CLEAN CATCH TYPE CODE TESTS RESULT OUT OF RANGE REFERENCE UNITS LAB L400.3000 Yellow COLOR Normal Yellow LAB L400.3050 Clear Normal CLARITY Sl. Cloudy LAB L400.3200 Normal mg/dl Normal GLUCOSE, UR Normal LAB L400.3300 Negative mg/dL Normal BILIRUBIN URINE Negative LAB L400.3400 Negative mg/dl Normal KETONE UR Negative LAB L400.3465 1.002-1.030 Normal SP.GR. DIPSTX 1.015 LAB L400.3550 5.0 - 8.0 pH UR Normal 8.0 LAB L400.3600 Negative mg/dl PROT Normal DIPSTX Negative LAB L400.3700 Normal mg/dl Normal UROBILI Normal LAB L400.3750 Negative Normal NITRITE UR Negative LAB L400.3780 Negative /ul Normal OCCULT BLOOD-UR Negative LAB L400.3800 Negative /ul LEUK Normal ESTERASE Negative LAB L400.4050 0-5 /hpf WBC 0 Normal SEEN LAB L400.4100 0-5 /hpf 0 Normal RBC-UA SEEN LAB L400.4150 0-5 /hpf SQUAM Normal EPI 0-5 SEEN LAB L400.4300 None Seen /hpf 0 Normal BACTERIA SEEN LAB L400.4350 <or=2+ /hpf 0 Normal MUCUS, URINE SEEN LAB L400.4900 2+ Normal AMORPHOUS PHOS Performed By: #### L400.0001 #### [facility] [address] [place], [address] CBC W/DIFF, AUTOMATED Collected: 06/17/2018 Status: F Source: [facility] 9:32 PM [facility] REPOSITORY TYPE CODE TESTS RESULT OUT OF RANGE REFERENCE UNITS LAB L100.1000 4.4-11.0 K/mm3 High WBC 11.2 LAB L100.1200 4.6-6.2 M/mm3 Low RBC 4.51 LAB L100.1300 13.0-16.5 g/dl Low HGB 12.0 LAB L100.1400 40-54 % Low HCT 37.9 LAB L100.1500 80-94 fL Normal MCV 84.0 LAB L100.1600 27.0-32.0 pg Low MCH 26.6 LAB L100.1700 32-36 g/gl Low MCHC 31.7 LAB L100.1810 11.6-14.6 % Normal RDW CV 14.6 LAB L100.1820 35.1-43.9 fl High RDW SD 44.6 LAB L100.1900 150-450 K/mm3 Normal PLT 284 LAB L100.2000 6.2-12.0 fl Normal MPV 8.6 LAB L100.2100 47-70 % Normal NEUT% 58.8 LAB L100.2200 19-41 % Normal LY% 29.3 LAB L100.2300 0-10 % High MONO% 11.2 LAB L100.2400 0-5 % Normal EO% 0.2 LAB L100.2500 0-1 % Normal BASO% 0.2 LAB L100.2550 0.0-0.9 % Normal IM GRAN % 0.300 Result Comment: IG% - Immature Granulocytes (promyelocytes, myelocytes and metamyelocytes) > 1% indicates that a LEFT SHIFT is Present. LAB L100.2620 2.0-7.7 X10 3/uL Normal Absolute Neut 6.6 LAB L100.2720 0.83-4.51 X10 3/ul Normal Absolute Lymph 3.29 Performed By: #### L100.0100 #### [facility] [address] [place], [address] BASIC METABOLIC Collected: 06/17/2018 Status: F Source: [facility] PROFILE (BMP) 9:32 PM [facility] REPOSITORY TYPE CODE TESTS RESULT OUT OF RANGE REFERENCE UNITS LAB L501.0100 74-106 mg/dL Normal GLU 88 Result Comment: Please note revised GLUCOSE reference range effective 2017. LAB L501.1000 7-18 mg/dL Normal BUN 17 LAB L501.1100 0.70-1.30 mg/dL Normal CREAT,SERUM 1.07 Result Comment: The validity of the calculated GFR AND GFRAA in patients over 70 years has not been determined. Clinical correlation is essential. LAB L501.1110 >60 mL/min Normal EST GFR 78 Result Comment: Non- GFR Calc LAB L501.1115 >60 mL/min Normal EST GFR - AA 95 Result Comment: GFR Calc LAB L501.1255 ml/min Normal Estimated CRCL 89.92 LAB L501.1300 10-20 RATIO Normal BUN/CRE 15.9 LAB L501.2200 8.5-10 mg/dL Low .1 CA 8.2 LAB L501.5300 136-14 mmol/L Normal 5 NA 143 LAB L501.5600 3.5-5. mmol/L Low 1 K 3.3 LAB L501.5900 98-107 mmol/L High CL 110 LAB L501.6100 21.0-3 mmol/L Normal 2.0 CO2 24.0 LAB L501.6200 5-15 Normal GAP 9 Performed By: #### L500.2500 #### [facility] [address] [place], [address] KIDNEY AND BLADDER Observed: 06/17/2018 Status: F Source: [facility] 9:15 PM [facility] REPOSITORY [facility] Imaging Services [address] [place] [address] Kidney and Bladder MR#: [id number] Acct: [id number] Name: ATTILA DEL CID Rep #: [id number] : 1970 M 48 From: Wyatt Kwon MD PCP: Nyla Bearden MD Status: REG ER Study: Kidney and Bladder Date of Exam: 06/17/18 Exam# [id number] Ordering Dr: Attila Johnson MD STUDY: RENAL ULTRASOUND - COMPLETE REASON FOR EXAM: Male, 48 years old. Right flank pain TECHNIQUE: Ultrasound evaluation of the kidneys was performed with real-time and static lopez-scale imaging. COMPARISON: CT May 07, 2018. FINDINGS: RIGHT KIDNEY: Normal location of the right kidney, which is normal in size. The right kidney measures 12.0 cm. There is a normal cortex of the right kidney. The renal cortex measures 1.8 cm. There is no right renal mass or cyst. There are lower pole echogenic foci consistent with small stones measuring up to 0.8 cm. There is mild hydronephrosis of the right kidney. DISTAL RIGHT URETER: There is non-visualization of the distal right ureter. There is no demonstrated right ureterovesical junction calculus. There is no demonstrated right ureteral jet. LEFT KIDNEY: Normal location of the left kidney, which is normal in size. The left kidney measures 12.2 cm. There is a normal cortex of the left kidney. The renal cortex measures 1.3 cm. There is no left renal mass or cyst. There are no left renal calculi. There is no left hydronephrosis. DISTAL LEFT URETER: There is non-visualization of the distal left ureter. There is no demonstrated left ureterovesical junction calculus. There is no demonstrated left ureteral jet. BLADDER: The distended urinary bladder has a volume of 215 ml. There is a normal wall thickness of the distended urinary bladder. There is no demonstrated mass within the urinary bladder. There are no demonstrated bladder calculi. US/Kidney and Bladder IMPRESSION: Right renal stones. Mild right hydronephrosis. Electronically Signed: Wyatt Kwon MD at 23:26 EDT , Service support , CC: Attila Johnson MD; Nyla Bearden MD 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: Signed RADHA Observed: 06/17/2018 Status: COMPLETED Source: [facility] 12:00 AM CLINIC OTHER CAMPUS REPOSITORY Telephone (AKURFL) ATTILA DEL CID ([id number]) 1970 M [facility] Date Time Provider Department 06/17/18 CAMRON PEREZ AKURFLynette During your visit today, we recorded the following information about you: Anais Upton Cma 06/17/2018 3:59 PM Signed Pt called the office and states he is having painful spasms and wanted to know if you responded to message from yesterday. I told pt message was sent yesterday. If pain gets unmanageable, than he will have to go back to the ER. Pt said he may go to [facility] main this evening. Anais Upton Teller Supervisor Camron Perez MD 06/18/2018 9:28 AM Signed See Li with waqas KIM and US prior ; check UA at time of visit Anais Upton Cma 06/18/2018 2:50 PM Signed Ronel tavera. Anais Upton Teller Supervisor Allergies As of Date: 06/17/2018 Noted Allergy Reaction CELEBREX (CELECOXIB) 07/17/2016 11 - Vomiting Comments: Nausea CLONIDINE 07/17/2016 2 - Rash FENTANYL 07/17/2016 8 - GI Upset LEVOFLOXACIN 04/13/2017 2 - Rash Comments: pt reports to [facility] PT --2016 PENICILLIN G 12/30/2013 2 - Rash RELPAX (ELETRIPTAN HBR) 07/17/2016 11 - Vomiting Comments: Nausea TOPAMAX (TOPIRAMATE) 07/17/2016 11 - Vomiting VICODIN (HYDROCODONE-ACETAMINOPHE*12/30/2013 11 - Vomiting WELLBUTRIN (BUPROPION HCL) 07/17/2016 11 - Vomiting Comments: Nausea Date Reviewed: 06/15/2018 Reviewed by: Destiny AminRn) ALE Gallo - Fully Assessed Reason for Visit: Pain [78] Prescriptions as of 06/17/2018 Sig: ONDANSETRON 4 MG DISINTEGRATI* Take 1 tablet by mouth every * METHOCARBAMOL 750 MG TABLET Take 1 tablet by mouth four t* LIDOCAINE 5 % TOPICAL PATCH Apply 1 Patch as directed guerrero* DIVALPROEX 250 MG TABLET,LASHAE* Take 1 tablet by mouth twice * ATORVASTATIN 20 MG TABLET every day ESCITALOPRAM 10 MG TABLET every day AMLODIPINE 5 MG TABLET Take 5 mg by mouth once daily. BABY ASPIRIN ORAL Take 1 tablet by mouth once d* TAMSULOSIN 0.4 MG CAPSULE every day GABAPENTIN 300 MG CAPSULE APIXABAN 5 MG TABLET Take by mouth twice daily. MECLIZINE 12.5 MG TABLET Take 2 tablets by mouth twice* LISINOPRIL 20 MG TABLET Take 1 tablet by mouth once d* PANTOPRAZOLE 40 MG TABLET,DEL* Take 1 tablet by mouth once d* ALBUTEROL SULFATE HFA 90 MCG/* Inhale 2 Puffs as instructed * Problem List As Of Date 06/17/2018 Noted Resolved Primary osteoarthritis of right knee [M17.11] INVALID FOR* Chest pain at rest [R07.9] INVALID FOR* HTN (hypertension) [I10] INVALID FOR* Atrial fibrillation (HCC) [I48.91] INVALID FOR* More... 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 Renal calculus, right [N20.0] INVALID FOR* TIA (transient ischemic attack) [G45.9] INVALID FOR* Priority: A Encounter Status:Closed by ANAIS UPTON CMA on 06/18/18 ED NOTE Observed: 06/15/2018 Status: COMPLETED Source: [facility] 7:38 PM CLINIC OTHER CAMPUS REPOSITORY HNO ID: [id number] Author: Berenice (Rn) ALE Pederson Service: (none) Author Type: Registered Nurse Type: ED Notes Filed: 06/15/2018 7:39 PM Note Text: Pt was discharged home he was instructed to follow up with his family medical dr as per needed His was bedside For transport and she was driving him home ED NOTE Observed: 06/15/2018 Status: COMPLETED Source: [place] 6:37 PM [facility] REPOSITORY HNO ID: [id number] Author: Berenice AminRn) ALE Pederson Service: (none) Author Type: Registered Nurse Type: ED Notes Filed: 06/15/2018 6:37 PM Note Text: Pt is resting Denies needs is bedside US KIDNEY/BLADDER Observed: 06/15/2018 Status: F Source: [place] 6:34 PM [facility] REPOSITORY * * *Final Report* * * DATE OF EXAM: Jun 15 2018 6:34PM EMIL 1055 - US KIDNEY/BLADDER / PROCEDURE REASON: Flank pain, stone disease suspected * * * * Physician Interpretation * * * * EXAMINATION: RENAL ULTRASOUND CLINICAL HISTORY: Flank pain TECHNIQUE: Sonography of the kidneys and urinary bladder was performed. Images were obtained and stored in a permanent archive. MQ: [id number] COMPARISON: None RESULT: Right Kidney: -Renal length: 11.7 cm -Parenchyma: Normal parenchymal echogenicity. Normal parenchymal thickness. -Collecting system: No hydronephrosis. -Calculus: No echogenic, shadowing calculus. -Lesion: None. Left Kidney: -Renal length: 11.9 cm -Parenchyma: Normal parenchymal echogenicity. Normal parenchymal thickness. -Collecting system: No hydronephrosis. -Calculus: No echogenic, shadowing calculus. -Lesion: None. Bladder: Normal sonographic appearance. Both ureter jets are seen. IMPRESSION: Normal study. 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: PSCB Transcribe Date/Time: Jun 15 2018 6:42P Dictated by : GWEN LEE MD This examination was interpreted and the report reviewed and electronically signed by: GWEN LEE MD on Jun 15 2018 6:43PM EST [id number] EKG Observed: 06/15/2018 Status: F Source: [place] 6:31 PM [facility] REPOSITORY NAME : ATTILA DEL CID PID : [id number] : 1970 Gender : Male Race : ORD : [id number] Procedure Date : Jun 15 2018 18:31:32 Edit Date : Jun 16 2018 09:10:17 Diagnosis:NORMAL SINUS RHYTHM MINIMAL VOLTAGE CRITERIA FOR LVH, MAY BE NORMAL VARIANT BORDERLINE ECG NO PREVIOUS ECGS AVAILABLE Confirmed by MD ANETTE, ROMÁN ([id number]), dictionary editor Divina Jc ([id number]) on 06/16/2018 9:10:13 AM Ventricular Rate : 83 BPM Atrial Rate : 83 BPM P-R Interval : 154 ms QRS Duration : 78 ms Q-T Interval : 372 ms QTC Calculation(Bezet) : 437 ms P [place] : 17 degrees R [place] : 6 degrees T [place] : 4 degrees Test Reason : Arrhythmia Location : 1 : ER ER19 Overread By : MD CHEEMA CHRISTOPHER Edited By : Divina Jc Referred By : , Acquired by : [place] CARIAS NOTE Observed: 06/15/2018 Status: COMPLETED Source: [place] 6:28 PM [facility] REPOSITORY HNO ID: [id number] Author: Berenice AminRn) ALE Pederson Service: (none) Author Type: Registered Nurse Type: ED Notes Filed: 06/15/2018 6:28 PM Note Text: Ultrasound is completed ED NOTE Observed: 06/15/2018 Status: COMPLETED Source: [place] 6:14 PM [facility] REPOSITORY HNO ID: [id number] Author: Berenice Sloan) ALE Pederson Service: (none) Author Type: Registered Nurse Type: ED Notes Filed: 06/15/2018 6:14 PM Note Text: Ultrasound is bedside URINALYSIS Collected: 06/15/2018 Status: F Source: [place] 5:49 PM [facility] OTHER [place] REPOSITORY TYPE CODE TESTS RESULT OUT OF RANGE REFERENCE UNITS LAB UCOL Yellow Color Abnormal Straw Alert LAB [facility] Clear Clarity Clear LAB UGLUC Negative mg/dL Glucose, Urine Negative LAB UBIL Negative Bilirubin, Urine Negative LAB UKET Negative Ketones, Urine Negative LAB USPG 1.001-1.029 Specific [place], Ur 1.010 LAB UHGB Negative Hemoglobin/Blood, Negative Ur LAB UPH 5.0-8.0 pH 7.5 LAB UPROT Negative mg/dL Protein, Urine Negative LAB UUROB 0.2-1.0 Urobilinogen 0.2 LAB UNITR Negative Nitrites Negative LAB ULKEST Negative Leukest Negative Performed By: #### UA #### [facility] [address] [facility] [phone] ED NOTE Observed: 06/15/2018 Status: COMPLETED Source: [place] 5:44 PM [facility] OTHER CAMPUS REPOSITORY HNO ID: [id number] Author: Berenice (Rn) ALE Pederson Service: (none) Author Type: Registered Nurse Type: ED Notes Filed: 06/15/2018 5:44 PM Note Text: Pt is sitting on the er bed in a semi comfortable position is bedside AH the PA has rounded CBC AND DIFFERENTIAL Collected: 06/15/2018 Status: F Source: [place] 5:35 PM [facility] OTHER CAMPUS REPOSITORY TYPE CODE TESTS RESULT OUT OF REFERENCE UNITS RANGE LAB WBC 3.70-11.00 k/uL WBC 10.54 LAB RBC 4.20-6.00 m/uL RBC 5.34 LAB HGB 13.0-17.0 g/dL Hemoglobin 14.4 LAB HCT 39.0-51.0 % Hematocrit 44.2 LAB MCV 80.0-100.0 fL MCV 82.8 LAB MCH 26.0-34.0 pG MCH 27.0 LAB MCHC 30.5-36.0 g/dL MCHC 32.6 LAB RDWCV 11.5-15.0 % RDW-CV 14.5 LAB PLTCT 150-400 k/uL Platelet Count 367 LAB MPV 9.0-12.7 fL MPV 9.0 LAB ANEUT % Neut% 62.1 LAB AANEUT 1.45-7.50 k/uL Abs Neut 6.56 LAB ALYMP % Lymph% 26.8 LAB AALYMP 1.00-4.00 k/uL Abs Lymph 2.82 LAB AMONO % [place]% 9.7 LAB AAMONO <0.87 k/uL Abs [place] High 1.02 LAB AEOS % Eosin% 0.9 LAB AAEOS <0.46 k/uL Abs Eosin 0.09 LAB ABASO % Baso% 0.5 LAB AABASO <0.11 k/uL Abs Baso 0.05 Performed By: #### CBCDIF, PT, PTT, CMP, LIPA, MG1 #### [facility] [address] [facility] [phone] PROTIME Collected: 06/15/2018 Status: F Source: [place] 5:35 PM [facility] OTHER CAMPUS REPOSITORY TYPE CODE TESTS RESULT OUT OF RANGE REFERENCE UNITS LAB PSEC 9.7-13.0 sec PT Sec 9.8 LAB INR 0.9-1.3 PT INR 0.9 Result Comment: Vitamin K Antagonist (VKA) Therapeutic Range: INR 2 to 3 (Target INR of 2.5) Note: For patients treated with VKA drugs, such as warfarin, the [employer] 2012 Guideline recommends a therapeutic INR range of 2 to 3 (target INR of 2.5). This recommendation includes high-risk patients with antiphospholipid syndrome with previous arterial or venous thromboembolism, current-generation mechanical or bioprosthetic aortic heart valve replacement. Note: Patients with mechanical aortic valve replacement and additional risk factors for thromboembolic events (atrial fibrillation, previous thromboembolism, LV dysfunction, hypercoagulable conditions) or an older generation mechanical AVR (i.e., ball in-Cage) or any mechanical MVR should have a INR therapeutic range of 2.5 to 3.5 (target INR of 3). Parish GH, et al. Chest 2012, 141:7S-47S Amy RA, et al. [facility] 2017, 70: 252-289 Performed By: #### CBCDIF, PT, PTT, CMP, LIPA, MG1 #### [facility] [address] [place] [address] APTT Collected: 06/15/2018 Status: F Source: [place] 5:35 PM [facility] REPOSITORY TYPE CODE TESTS RESULT OUT OF RANGE REFERENCE UNITS LAB APTT 23.0-32.4 sec APTT 24.3 Result Comment: Unfractionated Heparin Therapeutic Ranges: Standard Heparin Nomogram: 53 to 78 seconds (anti-Xa level of 0.3 to 0.7 U/ml) Low Dose/ACS Nomogram: 49 to 67 seconds (anti-Xa level of 0.2 to 0.5 U/ml) Stroke Treatment Nomogram: 49 to 67 seconds (anti-Xa level of 0.2 to 0.5 U/ml) Note: The APTT therapeutic range has been determined for the current lot of laboratory APTT reagent in use throughout the [facility]. Performed By: #### CBCDIF, PT, PTT, CMP, LIPA, MG1 #### [facility] [address] [facility] [phone] COMP METABOLIC PANEL Collected: 06/15/2018 Status: F Source: [place] 5:35 PM CLINIC OTHER CAMPUS REPOSITORY TYPE CODE TESTS RESULT OUT OF REFERENCE UNITS RANGE LAB TP 6.3-8.0 g/dL Protein, Total 6.7 LAB ALB 3.9-4.9 g/dL Albumin 3.9 LAB CA 8.5-10.2 mg/dL Calcium, Total 10.0 LAB TBIL 0.2-1.3 mg/dL Bilirubin, Total 0.4 LAB ALKP 36-108 U/L Alkaline Phosphatase 73 LAB AST 14-40 U/L AST 21 LAB GLU 74-99 mg/dL Glucose 95 Result Comment: The [place] [employer] (ADA) provides guidance for cutoff values for fasting glucose and random glucose. The ADA defines fasting as no caloric intake for at least 8 hours. Fas ting plasma glucose results between 100 to 125 mg/dL indicate increased risk for diabetes (prediabetes). Fasting plasma glucose results greater than or equal to 126 mg/dL meet the criteria for diagnosis of diabetes. In the absence of unequivocal hyperglycemia, results should be confirmed by repeat testing. In a patient with classic symptoms of hyperglycemia or hyperglycemic crisis, random plasma glucose results greater than or equal to 200 mg/dL meet the criteria for diagnosis of diabetes. Reference: Standards of Medical Care in Diabetes 2016, [place] [employer]. Diabetes Care. 2016.39(Suppl 1). LAB BUN 9-24 mg/dL BUN 10 LAB CRET 0.73-1.22 mg/dL Creatinine 0.81 LAB NA 136-144 mmol/L Sodium 136 LAB K 3.7-5.1 mmol/L Potassium 4.1 LAB CL 97-105 mmol/L Chloride 98 LAB CO2 22-30 mmol/L CO2 23 LAB AGAP 9-18 mmol/L Anion Gap 15 LAB ALT 10-54 U/L ALT 23 LAB GFRAA eGFR- Amer. >60 LAB GFRNAA . eGFR-All Other Races >60 Result Comment: eGFR (Estimated GFR) Units of measure: mL/min/1.73 meters squared eGFR is derived from the reexpressed MDRD Study equation using the following parameters: serum creatinine, age, gender and race. The creatinine assay has been calibrated to be traceable to IDMS. An eGFR <60 mL/min/1.73m2 for >3 months is consistent with chronic kidney disease. Refer to KDOQI guidelines for clinical interpretation. In patients with unstable renal function, e.g. those with acute kidney injury, the eGFR may not accurately reflect actual GFR. Performed By: #### CBCDIF, PT, PTT, CMP, LIPA, MG1 #### [facility] [address] [place] [phone] LIPASE Collected: 06/15/2018 Status: F Source: [place] 5:35 PM [facility] REPOSITORY TYPE CODE TESTS RESULT OUT OF REFERENCE UNITS RANGE LAB LIPA 16-61 U/L Lipase 47 Performed By: #### CBCDIF, PT, PTT, CMP, LIPA, MG1 #### [facility] [address] [place] [phone] MAGNESIUM Collected: 06/15/2018 Status: F Source: [place] 5:35 PM [facility] REPOSITORY TYPE CODE TESTS RESULT OUT OF REFERENCE UNITS RANGE LAB MG 1.7-2.3 mg/dL Magnesium 1.9 Performed By: #### CBCDIF, PT, PTT, CMP, LIPA, MG1 #### [facility] [address] [place] [phone] TROPONIN T Collected: 06/15/2018 Status: F Source: [place] 5:35 PM [facility] REPOSITORY TYPE CODE TESTS RESULT OUT OF REFERENCE UNITS RANGE LAB TROPT 0.000-0.029 ng/mL Troponin T <0.010 Performed By: #### NARGIS #### [facility] [address] [place] [phone] ED PROV NOTE Observed: 06/15/2018 Status: COMPLETED Source: [place] 5:21 PM [facility] OTHER [facility] REPOSITORY HNO ID: [id number] Author: Brendan Kahn III Service: (none) Author Type: Physician Filler Machine Operator Type: ED Provider Notes Filed: 06/15/2018 7:02 PM Note Text: ED Provider Note Patient Name: Attila Del Cid SERVICE DATE: 06/15/18 History Patient presents with: Abdominal Pain HPI HPI: 48-year-old male presents to the emergency department for evaluation of right flank pain. The patient started with right flank pain yesterday and does have a history of kidney stones. The patient feels that this is a kidney stone. The patient has had some nausea and vomiting. The patient has had some lightheadedness and dizziness associated with the pain. The patient is not having any left-sided pain. The patient denies any dysuria or hematuria. The patient is not having any diarrhea. Normal bowel movements. The patient has had multiple CT scans here over the last several weeks. Patient is on eliquis. PMH: PAST MEDICAL HISTORY Diagnosis Date - Acute right flank pain 03/25/2018 - Aneurysm of ascending aorta (HCC) - Aortic aneurysm (HCC) - Arthritis - Atrial fibrillation (HCC) - Calculi, ureter - Calculus of kidney - Hematuria - Hypertension - Kidney stones 03/25/2018 - Pneumonia - Psychiatric disorder anxiety PAST SURGICAL HISTORY Procedure Laterality Date - BACK SURGERY HX 2015 FUSION, L4-L5 - COLONOSCOP W/ OR W/O BRSH SPEC 05/14/2014 Colonoscopy - EGD W/O OR W/BRUSH/WASH 05/14/2014 EGD - FRAGMENTING/KIDNEY STONE Right 2017 Lithotripsy - KNEE SURGERY HX Right 03/2017 patella replacement - [place] ANESTH,KNEE JOINT; NOS 12/2017 Left Medications: No current facility-administered medications on file prior to encounter. Current Outpatient Prescriptions on File Prior to Encounter: divalproex DR (DEPAKOTE) 250 mg EC tablet Take 1 tablet by mouth twice daily. ondansetron orally disintegrating (ZOFRAN ODT) 4 mg disintegrating tablet Take 1 tablet by mouth every 6 hours as needed for Nausea/Vomiting. atorvastatin (LIPITOR) 20 mg tablet every day escitalopram oxalate (LEXAPRO) 10 mg tablet every day amLODIPine (NORVASC) 5 mg tablet Take 5 mg by mouth once daily. BABY ASPIRIN ORAL Take 1 tablet by mouth once daily. tamsulosin ER (FLOMAX) 0.4 mg cp24 every day gabapentin (NEURONTIN) 300 mg capsule apixaban (ELIQUIS) 5 mg tab tab(s) Take by mouth twice daily. meclizine (ANTIVERT) 12.5 mg tab Take 2 tablets by mouth twice daily as needed. lisinopril (ZESTRIL, PRINIVIL) 20 mg tablet Take 1 tablet by mouth once daily. pantoprazole DR (PROTONIX) 40 mg tablet Take 1 tablet by mouth once daily. albuterol HFA (PROVENTIL HFA, VENTOLIN HFA) 90 mcg/actuation inhaler Inhale 2 Puffs as instructed every 4 hours as needed. Allergies: Celebrex [Celecoxib]; Clonidine; Fentanyl; Levofloxacin; Penicillin G; Relpax [Eletriptan Hbr]; Topamax [Topiramate]; Vicodin [Hydrocodone-Acetaminophen]; Wellbutrin [Bupropion Hcl] Family History: FAMILY HISTORY Problem Relation Age of Onset - Diabetes Mother - Colon Cancer Mother - Heart disease Mother - Hypertension Mother - Diabetes Sister - Skin Cancer Father Social History: Social History Marital status: Spouse name: Years of education: Number of children: 1 Social History Main Topics Smoking status: Never Smoker Smokeless tobacco: Never Used Alcohol use: No Drug use: No Other Topics Concern Caffeine Concern Yes Comment:low Review of Systems Constitutional: Negative for chills, fatigue and fever. HENT: Negative for congestion and rhinorrhea. Respiratory: Negative for cough, chest tightness, shortness of breath and wheezing. Cardiovascular: Negative for chest pain, palpitations and leg swelling. Gastrointestinal: Positive for abdominal pain, nausea and vomiting. Negative for diarrhea. Genitourinary: Positive for flank pain. Negative for dysuria. Musculoskeletal: Negative for back pain, neck pain and neck stiffness. Skin: Negative for color change, pallor, rash and wound. Neurological: Positive for dizziness and light-headedness. Negative for syncope, speech difficulty and headaches. Hematological: Negative for adenopathy. Does not bruise/bleed easily. Psychiatric/Behavioral: Negative for agitation and confusion. All other systems reviewed and are negative. Physical Exam BP 140/100 Pulse 122 Temp (Src) 97.2 (Oral) Resp 16 Wt 240 lb (108.9kg) SpO2 99% Physical Exam Constitutional: He is oriented to person, place, and time. He appears well-developed and well-nourished. No distress. HENT: Head: Normocephalic and atraumatic. Mouth/Throat: Oropharynx is clear and moist. Eyes: Conjunctivae are normal. Cardiovascular: Regular rhythm. Tachycardia present. Pulmonary/Chest: Effort normal and breath sounds normal. No respiratory distress. He has no wheezes. He has no rales. Abdominal: Soft. He exhibits no distension, no ascites and no mass. Bowel sounds are decreased. There is no tenderness. There is CVA tenderness. There is no rebound and no guarding. Musculoskeletal: He exhibits no edema, tenderness or deformity. Neurological: He is alert and oriented to person, place, and time. Skin: Skin is warm and dry. Capillary refill takes less than 2 seconds. No rash noted. He is not diaphoretic. No erythema. No pallor. Psychiatric: He has a normal mood and affect. His behavior is normal. Nursing note and vitals reviewed. Procedures MDM ED Course: EKG Interpretation: Normal sinus rhythm, rate of 83, normal axis, no ST segment elevation or depression, T-wave inversion in lead 3. Unchanged from previous Results for orders placed or performed during the hospital encounter of 06/15/18 COMP METABOLIC PANEL Result Value Ref Range Protein, Total 6.7 6.3 - 8.0 g/dL Albumin 3.9 3.9 - 4.9 g/dL Calcium 10.0 8.5 - 10.2 mg/dL Bilirubin, Total 0.4 0.2 - 1.3 mg/dL Alkaline Phosphatase 73 36 - 108 U/L AST 21 14 - 40 U/L Glucose 95 74 - 99 mg/dL BUN 10 9 - 24 mg/dL Creatinine 0.81 0.73 - 1.22 mg/dL Sodium 136 136 - 144 mmol/L Potassium 4.1 3.7 - 5.1 mmol/L Chloride 98 97 - 105 mmol/L CO2 23 22 - 30 mmol/L Anion Gap 15 9 - 18 mmol/L ALT 23 10 - 54 U/L eGFR- >60 eGFR-All Other Races >60 . LIPASE BLD Result Value Ref Range Lipase 47 16 - 61 U/L CBC + DIFF Result Value Ref Range WBC 10.54 3.70 - 11.00 k/uL RBC 5.34 4.20 - 6.00 m/uL Hemoglobin 14.4 13.0 - 17.0 g/dL Hematocrit 44.2 39.0 - 51.0 % MCV 82.8 80.0 - 100.0 fL MCH 27.0 26.0 - 34.0 pG MCHC 32.6 30.5 - 36.0 g/dL RDW-CV 14.5 11.5 - 15.0 % Platelet Count 367 150 - 400 k/uL MPV 9.0 9.0 - 12.7 fL Neut% 62.1 % Abs Neut (ANC) 6.56 1.45 - 7.50 k/uL Lymph% 26.8 % Abs Lymph 2.82 1.00 - 4.00 k/uL [place]% 9.7 % Abs [place] 1.02 (H) <0.87 k/uL Eosin% 0.9 % Abs Eosin 0.09 <0.46 k/uL Baso% 0.5 % Abs Baso 0.05 <0.11 k/uL URINALYSIS Result Value Ref Range Color Straw (A) Yellow Appearance (U) Clear Clear Glucose, Urine Negative Negative mg/dL Bilirubin, Urine Negative Negative Ketones, Urine Negative Negative Specific [place], Ur 1.010 1.001 - 1.029 Hemoglobin/Blood,Ur Negative Negative pH, Urine 7.5 5.0 - 8.0 Protein, Urine Negative Negative mg/dL Urobilinogen 0.2 0.2 - 1.0 Nitrites Negative Negative Leukest Negative Negative MAGNESIUM BLD Result Value Ref Range Magnesium 1.9 1.7 - 2.3 mg/dL TROPONIN T Result Value Ref Range Troponin T <0.010 0.000 - 0.029 ng/mL PROTHROMBIN TIME/PT Result Value Ref Range PT Sec 9.8 9.7 - 13.0 sec PT INR 0.9 0.9 - 1.3 ACTIVATED PTT Result Value Ref Range APTT 24.3 23.0 - 32.4 sec US KIDNEY/BLADDER Final Result IMPRESSION: Normal study. 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: NEAL Transcribe Date/Time: Jun 15 2018 6:42P Dictated by : GWEN LEE MD This examination was interpreted and the report reviewed and electronically signed by: GWEN LEE MD on Jun 15 2018 6:43PM EST Medical Decision Making: The patient on arrival does not appear to be in any apparent distress. The patient does appear to be in pain. The patient will have laboratory studies obtained, multiple CT scans have been performed in the last couple weeks. The patient will have a renal ultrasound. The patient will be treated with adequate IV analgesia. The patient will have labs and urinalysis reviewed. Patient will be reassessed after the investigations investigations. The patient's laboratory studies showed a normal white blood cell count 10.54. The patient's hemoglobin hematocrit are normal at 14.4 and 44.2. Platelet count is normal at 367. CMP is within normal limits. Lipase is 47. Urinalysis did not show any evidence of hematuria. The patient's magnesium was 1. Troponin was less than 0.010. EKG did not show any evidence of arrhythmia, or atrial fibrillation. Normal sinus rhythm, no ST segment elevation or depression. Ultrasound did not show any evidence of acute abnormality. The patient's previous CT scans did not show any evidence of urolithiasis did show evidence of the nephrolithiasis. The patient was still complaining of some discomfort on the right side. The patient will be given additional pain medication IV. The patient will be discharged home with a short course of pain medicine. He is to follow-up with his urologist tomorrow. Contact his primary care physician for further evaluation and assessment. Patient was comfortable with the plan will be discharged to home. Clinical Impression: Encounter Diagnosis ICD-10-CM 1. Flank pain R10.9 oxyCODONE-acetaminophen (PERCOCET) 5-325 mg tablet 2. Nausea and vomiting, intractability of vomiting not specified, unspecified vomiting type R11.2 Condition at disposition: stable Disposition: DISCHARGED: Counseled patient, significant other and spouse regarding lab results AND radiology results AND suspected diagnosis AND need for follow-up. Discharged home with verbal and written instructions. They were instructed to return as needed for persistent or worsening symptoms or any new concerns. The patient was discussed with Dr Cheema SIGNATURE: KEYLA Huang III) Femi OCHOA 06/15/18 1902 ED NOTE Observed: 06/15/2018 Status: COMPLETED Source: [place] 5:10 PM [facility] REPOSITORY HNO ID: [id number] Author: Destiny Gallo RN Service: (none) Author Type: Registered Nurse Type: ED Notes Filed: 06/15/2018 5:10 PM Note Text: Patient presents to ED with complaints of flank pain CASE MANAGEM Observed: 06/04/2018 Status: COMPLETED Source: [place] 4:32 PM [facility] OTHER [place] REPOSITORY HNO ID: [id number] Author: Maria Luz AminRn) Miki RN Service: Case Management Author Type: Registered Nurse Type: Care Mgt Progress Note Filed: 06/04/2018 4:33 PM Note Text: CARE MANAGEMENT DISCHARGE NOTE SERVICE DATE: 06/04/2018 SERVICE TIME: 4:32 PM LOS: 2 days Admission Date: 06/01/2018 DISCHARGE ARRANGEMENT (list agency and phone number) Home CAREGIVER ASSESSMENT: Caregiver is ready, willing and able to meet the patient's needs as recommended by the inter-professional team? Yes Patient's transition needs and plan for meeting these needs: self care Does the patient have an acute stroke diagnosis, or has the patient had a stroke during this admission? No HANDOFF COMMUNICATION: bedside ALE [facility] TRANSPORTATION ARRANGEMENTS: Car Family ADDITIONAL CONTACT RESOURCES: Discharge Information Row Name ED to Hosp-Admission (Current) from 06/01/2018 in [facility] Medical Follow-Up Appointment Specialty PCP Provider Name Nyla Bearden MD Address [address], [facility] [address] Phone Number [phone] Appointment Date 06/10/18 Appointment Time 2:00pm Additonal Instructions Patient should bring the following to appointment: Picture ID, Insurance Card, Copay (if applicable), Medications/Med List. Please provide a minimum of 24 hours' notice for cancelations/rescheduling. Please arrive 15 minutes prior to your appointment. SIGNATURE: Maria Luz Livingston RN PATIENT NAME: Attila Del Cid DATE: June 04, 2018 TIME: 4:32 PM PAGER/CONTACT #: [phone] CNDS Observed: 06/04/2018 Status: COMPLETED Source: [place] 4:04 PM [facility] OTHER CAMPUS REPOSITORY O ID: [id number] Author: Jude Reddy Service: General Internal Medicine Author Type: Physician Type: Discharge Summaries Filed: 06/04/2018 4:10 PM Note Text: DISCHARGE SUMMARY PATIENT NAME: Attila Del Cid ADMISSION DATE: 06/01/2018 DISCHARGE DATE: 06/04/2018 ATTENDING PHYSICIAN: Jude Reddy Code Status: Not on file Highest Readmission Risk Score: 17 The 30 day readmissions risk score is derived from an internally validated risk model which evaluates patient level characteristics, utilization history, medication orders and lab results up until the day of discharge. Patients with a score of 40 or above are considered highest risk for readmission. Specific patient level drivers will be listed at the bottom of the summary. REASON FOR HOSPITALIZATION: dizziness/headache DIAGNOSIS: 1. Atypical Migraine 2. Chronic a fib 3. Essential HTN 4. Atypical chest pain OPERATIONS DURING HOSPITALIZATION: None PROCEDURES DURING HOSPITALIZATION: No procedures performed HOSPITAL COURSE: Pt presented to ER with headache and dizziness. CT brain no acute changes. MRI brain no infarct seen. MRA no significant occlusions. Seen by neuro who felt sx's were c/w a migraine Pt had some atypical CP, serial enzymes negative. CT chest no change in ectatic thoracic aorta. Pt given migraine cocktail with some improvement. Discharged home with depakote for prevention and need to f/u with headache clinic Transitions of Care Critical Issues: SPECIALIST FOLLOW-UP: headache clinic LABS AND PROCEDURES PENDING AT DISCHARGE: No pending results. CONSULTING TEAMS DURING HOSPITALIZATION: Neurology: Dr Amador PATIENT CONDITION AT DISCHARGE: Stable DISCHARGE DISPOSITION: Home/Self Care Discharge Physical Exam: VITAL SIGNS: BP 134/74 Pulse 94 Temp 36.1 ?C (97 ?F) (Oral) Resp 18 Ht 180.3 cm (5' 11) Wt 108.1 kg (238 lb 4.8 oz) SpO2 94% BMI 33.24 kg/m? GENERAL: Alert, no distress, cooperative SKIN: Skin color, texture, turgor normal. No rashes or lesions. HEAD/SINUSES: No significant findings EYES: PERRLA, EOMI LUNGS: Lungs clear to auscultation, Good diaphragmatic excursion CARDIAC: Normal S1 and S2; no rubs, murmurs, or gallops INFORMATION PROVIDED TO PATIENT: (To pull info documented from the DC Instruct Orderset Complete O/S First): no add'n info DIET: Resume pre-hospital diet ACTIVITY: Resume pre-hospital activity WOUND/SURGICAL SITE CARE: None ALLERGIES Allergen Reactions - Celebrex [Celecoxib] Vomiting Nausea - Clonidine Rash - Fentanyl GI Upset - Levofloxacin Rash pt reports to [facility] PT 04-13-2017 - Penicillin G Rash - Relpax [Eletriptan * Vomiting Nausea - Topamax [Topiramate] Vomiting - Vicodin [Hydrocodon* Vomiting - Wellbutrin [Bupropi* Vomiting Nausea DISCHARGE MEDICATION: Current Discharge Medication List START taking these medications divalproex (DEPAKOTE) 250 mg Take 250 mg by mouth twice daily. Qty: 60 tablet Refills: 0 methylPREDNISolone (MEDROL, DANISHA,) 4 mg Dose-Pack As instructed per package Qty: 1 Package Refills: 0 morphine IR 30 mg Take 30 mg by mouth every 4 hours as needed. Earliest Fill Date: 06/03/18 Qty: 8 tablet Refills: 0 Associated Diagnoses:Chest pain at rest CONTINUE these medications which have NOT CHANGED amLODIPine (NORVASC) 5 mg Take 5 mg by mouth once daily. ondansetron orally disintegrating (ZOFRAN ODT) 4 mg Take 4 mg by mouth every 6 hours as needed for Nausea/Vomiting. Qty: 20 tablet Refills: 0 atorvastatin (LIPITOR) 20 mg tablet every day escitalopram oxalate (LEXAPRO) 10 mg tablet every day BABY ASPIRIN ORAL 1 tablet Take 1 tablet by mouth once daily. tamsulosin ER (FLOMAX) 0.4 mg cp24 every day gabapentin (NEURONTIN) 300 mg capsule apixaban (ELIQUIS) 5 mg tab tab(s) Take by mouth twice daily. meclizine (ANTIVERT) 25 mg Take 25 mg by mouth twice daily as needed. lisinopril (ZESTRIL, PRINIVIL) 20 mg Take 20 mg by mouth once daily. Qty: 30 tablet Refills: [address] (PROTONIX) 40 mg Take 40 mg by mouth once daily. Qty: 30 tablet Refills: 11 albuterol HFA (PROVENTIL HFA, VENTOLIN HFA) 2 Puffs Inhale 2 Puffs as instructed every 4 hours as needed. Qty: 1 Inhaler Refills: 0 Associated Diagnoses:Cough present for greater than 3 weeks STOP taking these medications docusate sodium (COLACE) 100 mg Comments: Reason for Stopping: promethazine (PHENERGAN) 25 mg Comments: Reason for Stopping: FUTURE APPOINTMENTS: Follow Up with PCP: Nyla Bearden MD Discharge Information Row Name ED to Hosp-Admission (Current) from 06/01/2018 in [facility] Medical Follow-Up Appointment Specialty PCP Provider Name Nyla Bearden MD Address [address], [facility] [address] Phone Number [phone] Appointment Date 06/10/18 Appointment Time 2:00pm Additonal Instructions Patient should bring the following to appointment: Picture ID, Insurance Card, Copay (if applicable), Medications/Med List. Please provide a minimum of 24 hours' notice for cancelations/rescheduling. Please arrive 15 minutes prior to your appointment. The patient's risk for 30-day readmission is determined using the following contributing factors: Pt variables contributing to increased readmission risk: 18 Active Medication Orders 15 Most Recent BUN Result 9.2 First Resulted Calcium During Admission 4 Number of Previous ED Visits (6 mos.) 1 Previous ED Visit (6 mos.)? 1 Insurance - Medicare 1 Discharge Disposition - Home 1 Active Anticoagulant TIME OF CARE: Discharge Management: I personally spent greater than 30 minutes involved in the discharge management of this patient. 46 min SIGNATURE: Jude Reddy MD PAGER/CONTACT #: [phone] DATE: June 04, 2018 TIME: 4:04 PM NURSING PROG Observed: 06/04/2018 Status: COMPLETED Source: [place] 2:32 PM [facility] REPOSITORY HNO ID: [id number] Author: Ce AminRn) ALE Anderson Service: (none) Author Type: Registered Nurse Type: Nursing Progress Note Filed: 06/04/2018 2:34 PM Note Text: Nursing Progress Note Patient Name: Attila Del Cid Patient Location: [place] [id number] Daily Note: 14[address] Amador discuss patient and plan of care. Dr. Reddy states there is not longer a need for neurological checks or NIH stroke scale. Discharge anticipated. I will continue to monitor patient. This note was completed by: Ce Anderson RN PROGRESS Observed: 06/04/2018 Status: COMPLETED Source: [place] 1:54 AM [facility] REPOSITORY HNO ID: [id number] Author: Mariah Desai Service: Hospital Medicine Author Type: Physician Type: Progress Notes Filed: 06/04/2018 1:55 AM Note Text: SHORT HOSPITALIST PROGRESS NOTE Name: Attila Del Cid SERVICE DATE: 06/04/2018 SERVICE TIME: 1:54 AM Hospital Medicine/Primary Attending: Mariah Desai MD Patient nurse called due to still having 6/10 headache. Patient does not want another dose of Depacon. Will do a migraine cocktail with keppra, solumedrol, mag. Plan of care discussed with: RN SIGNATURE: Mariah Desai MD DATE: June 04, 2018 TIME: 1:54 AM CNCO Observed: 06/04/2018 Status: COMPLETED Source: [place] 12:00 AM CLINIC OTHER CAMPUS REPOSITORY Letter Text June 04, 2018 Attila Del Cid [id number] [place] [address] Dear Keyonna Fordtiburcio, The nurses and staff of [facility] hope this letter finds you feeling well and progressing in your recovery. Our staff would like to thank you for trusting and choosing us for your health care needs. It was an honor for us to provide your nursing care. We know that placing our Patients First and maintaining a culture of continuous improvement each and every day, are essential to the success of our organization. I hope your stay with us has been positive. We want to hear from you. If you have any comments, questions or concerns about your hospital stay, please feel free to contact me, Sheirn Kent RN ([phone]) or email me at, [email or web address] Additionally, you will receive a survey in the mail asking you to rate the care you received while in the hospital. Please take the time to complete and send back the survey, as it is essential to our continued success. I personally review all the results and would appreciate your feedback. Thank you in advance for your participation and thank you for choosing the [facility] for your health needs. Sincerely, Nurse Seasonal Customer Service Associate: Sherin Kent RN ([phone]) [facility] Unit: [address] Letter Text June 05, 2018 Department of Hospital Medicine [address] [place] [address] Re: Attila Del Cid Dear Dr. Bearden: A patient of your practice, Attila K Maria Eugenia (: 1970) was treated at [facility] under the care of the [facility] Department of Hospital Medicine, and discharged on 06/04/2018. A transcribed discharge summary should be forthcoming promptly. If you need additional information or assistance, you may contact the Department of Hospital Medicine at [phone] during regular business hours, and we?ll be happy to assist you. Best Regards, René Dumont [facility] INTERNAL MEDICINE Observed: 06/03/2018 Status: F Source: [place] OFFICE VISIT 9:19 AM [facility] Internal Medicine [address] [place] [address] [place] [address] OFFICE VISIT Date of Service: 05/30/18 MR#: [id number] Acct: [id number] Name: ATTILA DEL CID Rep #: [id number] : 1970 Provider: Tawanda Colon NP Age/Sex: 48/M Location: [facility] Status: Signed Intake Vital Signs05/30/18 Height 5 ft 11 in Intake Visit Reasons: ER f/u Chief Complaint: FU ER Allergies clonidine Allergy (Intermediate, Verified 05/20/18 10:17) rash levofloxacin [From Levaquin] Allergy (Verified 05/20/18 10:17) Rash Penicillins Allergy (Verified 05/20/18 10:17) Hives bupropion Adverse Reaction (Intermediate, Verified 05/20/18 10:17) vomiting celecoxib [From Celebrex] Adverse Reaction (Intermediate, Verified 05/20/18 10:17) vomiting eletriptan Adverse Reaction (Intermediate, Verified 05/20/18 10:17) Vomiting topiramate [From Topamax] Adverse Reaction (Intermediate, Verified 05/20/18 10:17) vomiting hydrocodone bitartrate [From Vicodin] Adverse Reaction (Verified 05/20/18 10:17) Nausea Medications Pantoprazole Sodium [Protonix] 40 mg PO DAILY 04/22/16 [History Confirmed 05/29/18] Albuterol Inhaler [Ventolin Hfa] 1 - 2 puff INHALATION Q4H PRN PRN #1 inhaler 07/15/17 [Rx Confirmed 05/29/18] Apixaban [Eliquis] 5 mg PO BID 09/21/17 [History Confirmed 05/29/18] meclizine 12.5 mg tablet 12.5 mg PO QODAY PRN #30 tab 01/14/18 [Rx Confirmed 05/29/18] amlodipine 5 mg tablet 5 mg PO DAILY #90 tab 02/26/18 [Rx Confirmed 05/29/18] Aspirin [Aspir-Low] 81 mg PO QDAY 04/09/18 [History Confirmed 05/29/18] lisinopril 20 mg tablet 20 mg PO BID #60 tab 04/18/18 [Rx Confirmed 05/29/18] atorvastatin 20 mg tablet 20 mg PO QDAY #90 tab 04/28/18 [Rx Confirmed 05/29/18] escitalopram 10 mg tablet 15 mg PO QDAY #90 tab 04/28/18 [Rx Confirmed 05/29/18] gabapentin 100 mg capsule 100 mg PO QHS #90 cap 05/01/18 [Rx Confirmed 05/29/18] Sotalol Hydrochloride [Betapace (Beta Carolee)] 120 mg PO BID #90 tab 05/18/18 [Rx Confirmed 05/29/18] Oxycodone HCl/Acetaminophen [Percocet 5/325] 1 tab PO Q6H PRN PRN 3 Days #10 tab 05/29/18 [Rx] Peg 400/Hypromellose/Glycerin [Visine Tears Drops] 15 ml OP QWEEK 05/29/18 [History Confirmed 05/29/18] lidocaine 5 % topical patch 1 patch TOPICAL QDAY #30 ea 05/30/18 [Rx Confirmed 05/30/18] PFSH Medical History SVT (supraventricular tachycardia) (Chronic) LORETTA (obstructive sleep apnea) (Chronic) Atherosclerotic heart disease of [place] coronary artery without angina pectoris (Chronic) Nephrolithiasis (Chronic) HTN (hypertension) (Chronic) Anxiety (Chronic) PAF (paroxysmal atrial fibrillation) (Chronic) GERD (gastroesophageal reflux disease) (Chronic) Obesity (BMI 30-39.9) (Chronic) BPPV (benign paroxysmal positional vertigo) (Chronic) HLD (hyperlipidemia) (Chronic) Thoracic aortic aneurysm without rupture (Chronic) Surgical History History of left heart catheterization (Chronic) History of cardiac radiofrequency ablation (Resolved) H/O arthroscopic knee surgery (Resolved) History of back surgery (Resolved) History of right knee surgery (Resolved) Family History Brother Hypertension Mother Heart disease Colon cancer Sister Diabetes Sister Diabetes Sister Diabetes Social History Smoking Status: Never smoker alcohol intake: never substance use type: does not use caffeine: No what type of physical activity do you participate in: walking frequency: 1-2 times per week duration: 15-30 minutes/day seatbelt use: always do you feel safe at home: Yes HPI HPI Chief Complaint: FU ER Details: ATTILA DEL CID, is a 48 M who presents to the office today for For an ER follow-up of recurrent chest pain. He has a past medical history as listed above. The patient states that on 05/29/2018 he presented to [facility] emergency department with complaints of chest pain again. He has recently been worked up with a heart cath which was negative. At the emergency department a chest x-ray, and EKG, and cardiac enzymes were done which were negative. Patient was discharged home in stable condition. Since being discharged, the patient states that he continues to get a dull achy chest pain. He does feel that it may be anxiety related, he was previously referred to behavioral health outpatient treatment program, however did not follow-up with this. He is wondering if his SSRI needs adjusted. He also complains of bruising to the left forearm were a blood sample was taken in the emergency department. He also has some complaints of right shoulder pain which he is seeing Orth O for. He otherwise denies any fever, chills, nausea, vomiting, shortness of breath, syncope or ROS Const Constitutional: Positive for headache(s); no weight change, body ache, chills, fatigue, sleep problems, fever(s), change in appetite, snoring, weakness, frequent falls or excessive sweating Eyes Eyes: No change in vision, eye pain, light sensitivity or blurry vision ENT ENT: Positive for headache(s); no abnormal hearing, ear pain, tinnitus, nasal congestion, sore throat or neck pain Resp Respiratory: No snoring, cough, shortness of breath or wheezing Cardio Cardiology: Positive for chest pain at rest (slight); no excessive sweating, chest pain with exertion, shortness of breath, dyspnea on exertion, palpitations, orthopnea or lightheadedness Gastro GI: No abdominal pain, change in bowel habits, constipation, diarrhea, vomiting, nausea/dyspepsia or cramping Genitourinary Male: No painful urination, urinary incontinence, urinary frequency, urinary urgency, blood in urine, testicle pain or other Musc Musculoskeletal: Positive for other (right shoulder pain); no neck pain, abnormal walking, joint pain, back pain, limited range of motion, numbness or tingling Skin Skin: No redness, dry skin, itching, lesions, wounds or rash Neuro Neurology: Positive for headache(s); no weakness, frequent falls, abnormal hearing, abnormal walking, numbness, tingling, abnormal speech, dizziness or memory loss Psych Psychiatric: No change in appetite, No memory loss, Positive for anxiety (feels medication is not working as well as it should ), No depression, No Thoughts of harming yourself/Others Endo Endocrine: No fatigue, excessive sweating, cold intolerance, increased thirst/drinking, heat intolerance, flushing or increased hunger Aller/Imm Allergy/Immunologic: No wheezing, itchy eyes, hives or seasonal allergy symptoms Matias/Lymp Hematologic/Lymphatic: No easy bleeding, easy bruising or enlarged lymph nodes Exam Const General: cooperative, no acute distress Orientation: alert, awake, oriented x3 [facility] Head: atraumatic, normocephalic Ears: hearing grossly normal bilaterally Resp Effort AND Inspection: normal respiratory effort, able to speak in complete sentences Auscultation: Bilateral: Clear to Auscultation Cardio Rate: regular rate Rhythm: regular rhythm Heart Sounds: S1 normal, S2 normal GI Palpation: soft, no hepatosplenomegaly Skin Other: Left anterior forearm bruising noted with slight edema, no signs fo cellulitis Neuro General: alert, awake, oriented x3, moves all extremities, CN's II-XI intact bilaterally Extrem General: no clubbing, cyanosis or edema Psych Appearance: grossly normal Mood: congruent mood Affect: anxious affect Assessment AND Plan 1. Anxiety F41.9 Plan Patient continues to have high amounts of anxiety that he at times relates to his chest discomfort. No adjustment to his current SSRI treatment at this time. Strongly encouraged patient to follow-up with counseling and psychiatry and patient was referred again to the outpatient behavioral health center program at [facility]. Orders Referrals: 2. Chest pain R07.9 Plan Most likely related to his anxiety, cardiac etiology has been worked up multiple times in the past and patient will continue to follow with his EPS physician and cardiology. 3. Traumatic ecchymosis of left upper arm S40.022A Plan Secondary to blood work being drawn. Conservative therapy at this time, compression to this site lightly with an Fabrice wrap and elevation for swelling. Did discuss the use of ice as well. Discussed red leg symptoms requiring urgent medical attention 4. Chronic right shoulder pain M25.511; G89.29 Plan Deferred to orthopedics who patient continues to see, per his request of breakthrough pain, a Lidoderm patch was called to his pharmacy per Medications New: lidocaine 5% (Lidoderm) leave on for 12 hrs ; cov1 patch Topical QDAY ERNIE Carrillo er most painful area; may cut into smaller pieces Plan Detail Other Medications Discontinued: Follow Up As previously scheduled or sooner Coding Level of Care Code Off vis,est,level 3 Diagnoses Anxiety F41.9 Chest pain R07.9 Traumatic ecchymosis of left upper arm S40.022A Chronic right shoulder pain M25.511; G89.29 06/03/18 0919 <Electronically signed by Tawanda KLEIN> Date Tawanda CARRASCOC Cosigner Signature: Date (if applicable) CC: CNCO Observed: 06/03/2018 Status: COMPLETED Source: [place] 12:00 AM [facility] REPOSITORY Letter Text June 03, 2018 Department of Hospital Medicine [address] [place] [address] Regarding: Attila Del Cid (: 1970) Dear Dr. Bearden: A patient of your practice, Attila K Maria Eugenia, was admitted on 06/01/2018 to [facility] under the services of the Department of Hospital Medicine, and is currently under the care of Dr. Reddy. We look forward to collaborating with you regarding his care. If you have any questions or concerns, please call us in the Department of Hospital Medicine at [facility], at [phone]. Best Regards, René Dumont [facility] PT ED Observed: 06/02/2018 Status: COMPLETED Source: [place] 4:43 PM [facility] OTHER CAMPUS REPOSITORY HNO ID: [id number] Author: Trinity Veliz (Pharmacy Resdient) Service: Pharmacy Author Type: Pharmacist Type: Patient Education Filed: 06/02/2018 4:45 PM Note Text: PATIENT EDUCATION TOPIC: TIA PAT[place] [facility] [id number] Attila Del Cid [id number] TEACHING POINTS: Activation of EMS for Stroke Aspiration Precautions Prescribed Medication Reviewed Stroke warning signs and symptoms Smoking Advice Counseling Need For Timely Follow Up After Discharge Nutrition/Diet: Low Animal Fat Personal modifiable risk factors: Being Overweight High Blood Pressure High Cholesterol READINESS TO LEARN COGNITIVE ABILITY: Alert and oriented MOTIVATION TO LEARN: Interested FAMILY SUPPORT: Unable to assess - Family not present INSTRUCTION PROVIDED TO: Patient PATIENT LEARNS BEST BY: Unable to Assess FACTORS AFFECTING LEARNING: None PHYSICAL LIMITATIONS AFFECTING LEARNING: None LEARNING RESPONSE DIAGNOSIS: ADULT: Stroke / Brain Attack PATIENT/FAMILY RESPONSE: Verbalizes understanding of: MEDICAL REGIMEN-Importance of following prescribed medical regimen RISK FACTORS-Unique risk factors related to their disease WORSENING CONDITION-Signs and symptoms of a worsening condition that warrant a call to the physician METHOD OF INSTRUCTION: Written instruction - handouts Verbal instruction FOLLOW-UP PLAN: Complete - No need for follow-up INSTRUCTIONAL AIDS USED: Marta-Comp Stroke Patient Education SUPPLEMENTAL MATERIAL PROVIDED TO PATIENT: Your Guide to Managing Stroke addressing: Activation of EMS for Stroke Aspiration Precautions Prescribed Medication Reviewed Maintaining Healthy Body Weight Nutrition/Diet Stroke warning signs and symptoms Smoking Advice Counseling Personal modifiable risk factors Your Guide to Managing Stroke given to: Patient REFERRAL (RECOMMENDATION): None Electronically Signed By: TRINITY VELIZ SALES COMMUNICATIONS MANAGER PROGRESS Observed: 06/02/2018 Status: COMPLETED Source: [place] 3:41 PM CLINIC OTHER CAMPUS REPOSITORY [facility] ID: [id number] Author: Jude Reddy Service: General Internal Medicine Author Type: Physician Type: Progress Notes Filed: 06/02/2018 3:48 PM Note Text: INTERNAL MEDICINE PROGRESS NOTE SERVICE DATE: 06/02/2018 SERVICE TIME: 1540 ADMITTING PHYSICIAN: Mariah Desai Subjective CHIEF COMPLAINT: headache Current Facility-Administered Medications: magnesium sulfate 1 g in D5W 100 mL 1 g INTRAVENOUS ONCE methylPREDNISolone sod succinate(PF) 60 mg injection (SOLU- Medrol) 60 mg INTRAVENOUS ONCE metoclopramide HCl 10 mg injection (REGLAN) 10 mg INTRAVENOUS ONCE meclizine 25 mg tab(s) (ANTIVERT) 25 mg ORAL BID PRN promethazine 25 mg tab(s) (PHENERGAN) 25 mg ORAL q 6 H PRN atorvastatin 20 mg tab(s) (LIPITOR) 20 mg ORAL AT BEDTIME lisinopril 20 mg tab(s) (ZESTRIL, PRINIVIL) 20 mg ORAL DAILY albuterol 2.5 mg /3 mL (0.083 %) 2.5 mg (PROVENTIL) 2.5 mg INHALATION q 4 H PRN amLODIPine 5 mg tab(s) (NORVASC) 5 mg ORAL DAILY apixaban 5 mg tab(s) (ELIQUIS) 5 mg ORAL BID docusate sodium 100 mg cap(s) (COLACE) 100 mg ORAL BID PRN pantoprazole DR 40 mg tab(s) (PROTONIX) 40 mg ORAL DAILY perflutren lipid microspheres 1.1 mg/mL 1.3 mL injection (DEFINITY) 1.3 mL INTRAVENOUS DIRECTED PRN gabapentin 100 mg cap(s) (NEURONTIN) 100 mg ORAL AT BEDTIME escitalopram oxalate 15 mg tab(s) (LEXAPRO) 15 mg ORAL DAILY sotalol 120 mg (BETAPACE) 120 mg ORAL q 12 H tamsulosin ER 0.4 mg cap(s) (FLOMAX) 0.4 mg ORAL DAILY oxyCODONE-acetaminophen 5-325 mg 1 tablet (PERCOCET) 1 tablet ORAL q 4 H PRN aspirin, enteric coated 81 mg tab(s) 81 mg ORAL DAILY ondansetron (PF) 4 mg injection (ZOFRAN) 4 mg INTRAVENOUS q 4 H PRN INTERVAL HISTORY OF PRESENT ILLNESS: Pt still has headache, and double/blurred vision. Doesn't really feel much better than at admit, no f/c, no palps, has some vague constant chest pressure, no cough or sob, no n/v/d Objective PHYSICAL EXAM: Patient Vitals for the past 24 hrs: BP Temp Temp src Pulse Resp SpO2 Weight 06/02/18 1200 120/90 - - 66 18 98 % - 06/02/18 1031 126/90 - - 68 - - - 06/02/18 1030 126/90 36.7 ?C (98 ?F) Oral 68 18 100 % - 06/02/18 0830 142/90 36.5 ?C (97.7 ?F) Oral 65 18 100 % - 06/02/18 0618 - - - - - - 108.2 kg (238 lb 8 oz) 06/02/18 0600 123/92 36.4 ?C (97.5 ?F) Oral 65 18 99 % - 06/02/18 0400 133/92 36.8 ?C (98.2 ?F) Oral 75 17 96 % - 06/02/18 0200 133/91 36.5 ?C (97.7 ?F) Oral 118 18 99 % - 06/02/18 0000 129/82 36.9 ?C (98.4 ?F) Oral 69 17 93 % - 06/01/18 2200 139/75 36.3 ?C (97.3 ?F) Oral 68 18 98 % - 06/01/18 2000 134/83 36.5 ?C (97.7 ?F) Oral 73 17 96 % - 06/01/18 1800 102/58 36.8 ?C (98.3 ?F) Oral 68 18 97 % - 06/01/18 1600 118/85 36.8 ?C (98.2 ?F) Oral 62 18 99 % - Body mass index is 33.26 kg/m?. GENERAL: Alert, no distress, cooperative SKIN: Skin color, texture, turgor normal. No rashes or lesions. OROPHARYNX: Lips, mucosa, and tongue are normal.Teeth and gums, normal. Oropharynx normal. NECK: No carotid bruits LUNGS: Lungs clear to auscultation. Good diaphragmatic excursion. CARDIAC: Normal S1 and S2; no rubs, murmurs, or gallops ABDOMEN: Abdomen soft, non-tender, BS normal, No masses or organomegaly EXTREMITIES: Extremities normal, no deformities, edema, clubbing or skin discoloration. Good capillary refill. DATA: Diagnostic tests reviewed for today's visit: Most recent labs and imaging results. Assessment/Plan Principal Problem: TIA (transient ischemic attack) POA: Yes Assessment AND Plan: suspect sx's are more c/w a migraine vs a tia. MRI brain negative for cva, CTA no significant occlusion brain/carotids. ECHO no thrombus. Pt states he is compliant with eliquis. Lipids well controlled and a1c nl. Try migraine cocktail tonight Active Problems: Atypical chest pain POA: Yes Assessment AND Plan: trops negative, doubt cardiac in origin ? Anxiety Atrial fibrillation (HCC) POA: Yes Assessment AND Plan: cont eliquis, and sotalol Ectatic thoracic aorta (HCC) POA: Yes Assessment AND Plan: stable on CT scan Resolved Problems: * No resolved hospital problems. * Medication and Non-Pharmacologic VTE Prophylaxis/Anticoagulants Anticoagulant AND Antiplatelet Medications Start Dose Route Frequency Ordered Stop 06/01/18 1600 aspirin, enteric coated 81 mg tab(s) 81 mg ORAL DAILY 06/01/18 1544 -- 06/01/18 1500 apixaban 5 mg tab(s) (ELIQUIS) 5 mg ORAL 2 TIMES DAILY 06/01/18 1449 -- 06/01/18 1500 vte non-pharmacologic prophylaxis - none indicated (mi,oh) 06/01/18 1500 vte current anticoag therapy (mi,tn) 06/01/18 1500 activity - mobilize patient (mi,tn) VTE Prophylaxis: VTE prophylaxis appropriate SIGNATURE: Jude Reddy MD PATIENT NAME: Attila Del Cid DATE: June 02, 2018 TIME: 3:41 PM PAGER/CONTACT #: [phone] CASE MGT INIT Observed: 06/02/2018 Status: COMPLETED Source: [facility] 2:23 PM CLINIC OTHER CAMPUS REPOSITORY HNO ID: [id number] Author: Maria Luz Garcia (Rn) ALE Livingston Service: Case Management Author Type: Registered Nurse Type: Care Mgt Initial Assessment Filed: 06/02/2018 2:28 PM Note Text: CARE MANAGEMENT: ASSESSMENT AND DISCHARGE PLAN SERVICE DATE: 06/02/2018 SERVICE TIME: 2:23 PM PRIMARY CARE PHYSICIAN: Nyla Bearden MD Confirmed , likes afternoons any day for follow up. 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 No Advance Directive: Current Advance Directive: None Dean Assisted with AD Completion: Yes Action: Education Provided (Explained importance of document and copy for epci, offered book and assistance, refused at this time has book at home ) Health Literacy: 1. How often do you need to have someone help you when you read instructions, pamphlets, or other written material from your doctor or pharmacy? Rarely - 2 2. How confident are you filling out medical forms by yourself? Extremely - 1 If Patient scores > 3 on either question, the following interventions were put into place: Use of plain language and active listening with Patient and family, Use concrete and specific phrases, avoid medical jargon, Forms of communication used with patient and family, Sit with Patient, Gave Patient the opportunity to ask questions and SIG helps FUNCTIONAL AND COGNITIVE/BEHAVIORAL PRIOR TO ADMISSION: Baseline Mental Status: Alert AND Oriented, Person, Place and Time Functional Status: Independent Does Patient Currently Receive Any Community Services or Home Care? None Equipment Prior to Admission: CPAP Has the Patient Been in a Halfway Facility in the Past 30 days? No SOCIAL: Living Arrangement: Home Lives With: SIG Financial Resources: Disabled Primary Contact: Extended Emergency Contact Information Primary Emergency Contact: EdilbertoJonah Address: [address] [place] [address] [facility] Relation: Significant other Supportive: Yes Other Important Patient Contacts: None Caregiver Assessment: Caregiver is ready, willing and able to meet the patient's needs as recommended by the inter-professional team? Yes Patient's transition needs and plan for meeting these needs: self care Does the patient have an acute stroke diagnosis, or has the patient had a stroke during this admission? Unable to assess at this time, testing to r/o TIA Medication Adherence: I am convinced of the importance of my prescription medication: Agree mostly - 0 I worry that my prescription medication will do more harm than good to me Disagree mostly - 0 I feel financially burdened by my [id number] expenses for my prescription medication: Disagree mostly -0 Patient is categorized as low risk < 2 Are you interested in bedside delivery of your medications? Yes , uses [facility] Food Concerns: In the Last Month, Have You had Trouble Getting Food? No trouble getting food During the Last Month, Have You Worried Whether Your Food Would Run Out Before You Had Enough Money to Buy More? No Is the Patient Psychosocially Complex? No ASSESSMENT AND PLAN: Medical Needs: 2 or more chronic diseases Psychosocial Needs: None FREEDOM OF CHOICE EXPLAINED: Yes explained choices to patient POTENTIAL TRANSITION PLANS Home To Be Determined Bedside ALE Obrien SIGNATURE: Maria Luz Livingston RN PATIENT NAME: Attila Del Cid DATE: June 02, 2018 TIME: 2:23 PM PAGER/CONTACT #: [phone] 12 LEAD ELECTROCARDIOGRAM Observed: 06/02/2018 Status: F Source: [place] 2:00 PM [facility] REPOSITORY [facility] Cardiovascular Services [address] [place] [address] 12 Lead EKG 05/29/18 1619 MR#: [id number] Acct: [id number] Name: ATTILA DEL CID Rep #: [id number] : 1970 48 From: Jesse Stokes MD Attending Dr: Status: DEP ER Ordering Dr: Graham Mendoza DO Date: 05/29/18 Location: ED Sex: M C Admitted: Test Reason : CHEST PAIN Blood Pressure : / mmHG Vent. Rate : 110 BPM Atrial Rate : 110 BPM P-R Int : 160 ms QRS Dur : 080 ms QT Int : 346 ms P-R-T Axes : 012 000 -04 degrees QTc Int : 468 ms Sinus tachycardia Otherwise normal ECG Confirmed by STEVEN CONNOR, JESSE ([id number]), dictionary editor RICCO LEWIS ([id number]) on 06/02/2018 2:00:04 PM Referred By: /RU Confirmed By:JESSE STOKES MD 06/02/18 1400 Date Jesse Stokes MD CC: Nyla Bearden MD; Graham Mendoza DO Signed CONSULT Observed: 06/02/2018 Status: COMPLETED Source: [place] 1:53 PM CLINIC OTHER CAMPUS REPOSITORY [facility] ID: [id number] Author: Lucero Amador Service: Neurology Author Type: Physician Type: Consults Filed: 06/02/2018 2:19 PM Note Text: INITIAL CONSULT NEURO STROKE SERVICE DATE: 06/02/2018 PCP: Nyla Bearden MD REASON FOR STROKE EVALUATION: diplopia dizziness and headache Subjective HPI: 48 year old male with hx of AFIB on anticoagulation, ascending aortic aneurysm, kidney stone, HTN, dyslipidemia, Migraine headache ,Hearing loss bilaterally ,obesity who presents to [place] ER for diplopia ,blurred vision, FANG which is bifrontal and occipital similar to his previous migraine headache ,he usually doesn't get the diplopia ,with his migraine episodes And because he is high risk patient so he was admitted for stroke work up He had no focal weakness or numbness ,still has headache 6 to 7 out of ten ,nausea photophobia and phonophobia Better when lying down in a dark quiet place and not moving No focal weakness or numbness Patient has noticed these symptoms intermittently over the last 24 hrs. He did have similar episode 3 months ago and also associated with headache No speech changes and no difficulties swallowing . no neck or back pain Pre-admission Was patient on antithrombotic agent prior to admission: Anticoagulant Was patient on lipid lowering agent prior to admission: Statin Pre-morbid mRS: PAST MEDICAL HISTORY Diagnosis Date - Acute right flank pain 03/25/2018 - Aneurysm of ascending aorta (HCC) - Aortic aneurysm (HCC) - Arthritis - Atrial fibrillation (HCC) - Calculi, ureter - Calculus of kidney - Hematuria - Hypertension - Kidney stones 03/25/2018 - Pneumonia - Psychiatric disorder anxiety PAST SURGICAL HISTORY Procedure Laterality Date - BACK SURGERY HX 2015 FUSION, L4-L5 - COLONOSCOP W/ OR W/O BRSH SPEC 05/14/2014 Colonoscopy - EGD W/O OR W/BRUSH/WASH 05/14/2014 EGD - FRAGMENTING/KIDNEY STONE Right 2017 Lithotripsy - KNEE SURGERY HX Right 03/2017 patella replacement - [place] ANESTH,KNEE JOINT; NOS 12/2017 Left Social History Marital status: Spouse name: Years of education: Number of children: 1 Social History Main Topics Smoking status: Never Smoker Smokeless tobacco: Never Used Alcohol use: No Drug use: No Other Topics Concern Caffeine Concern Yes Comment:low FAMILY HISTORY Problem Relation Age of Onset - Diabetes Mother - Colon Cancer Mother - Heart disease Mother - Hypertension Mother - Diabetes Sister - Skin Cancer Father ALLERGIES Allergen Reactions - Celebrex [Celecoxib] Vomiting Nausea - Clonidine Rash - Fentanyl GI Upset - Levofloxacin Rash pt reports to [facility] PT 04-13-2017 - Penicillin G Rash - Relpax [Eletriptan * Vomiting Nausea - Topamax [Topiramate] Vomiting - Vicodin [Hydrocodon* Vomiting - Wellbutrin [Bupropi* Vomiting Nausea MEDICATION Pre-admission Prescriptions Prior to Admission: amLODIPine (NORVASC) 5 mg tablet Take 5 mg by mouth once daily. Disp: Rfl: 06/01/2018 at Unknown time ondansetron orally disintegrating (ZOFRAN ODT) 4 mg disintegrating tablet Take 1 tablet by mouth every 6 hours as needed for Nausea/Vomiting. Disp: 20 tablet Rfl: 0 atorvastatin (LIPITOR) 20 mg tablet every day Disp: Rfl: Taking escitalopram oxalate (LEXAPRO) 10 mg tablet every day Disp: Rfl: Taking BABY ASPIRIN ORAL Take 1 tablet by mouth once daily. Disp: Rfl: Taking tamsulosin ER (FLOMAX) 0.4 mg cp24 every day Disp: Rfl: Taking gabapentin (NEURONTIN) 300 mg capsule Disp: Rfl: Taking apixaban (ELIQUIS) 5 mg tab tab(s) Take by mouth twice daily. Disp: Rfl: Taking meclizine (ANTIVERT) 12.5 mg tab Take 2 tablets by mouth twice daily as needed. Disp: Rfl: Taking lisinopril (ZESTRIL, PRINIVIL) 20 mg tablet Take 1 tablet by mouth once daily. Disp: 30 tablet Rfl: [address] (PROTONIX) 40 mg tablet Take 1 tablet by mouth once daily. Disp: 30 tablet Rfl: 11 Taking albuterol HFA (PROVENTIL HFA, VENTOLIN HFA) 90 mcg/actuation inhaler Inhale 2 Puffs as instructed every 4 hours as needed. Disp: 1 Inhaler Rfl: 0 Unknown at Unknown time Current amLODIPine (NORVASC) 5 mg tablet Take 5 mg by mouth once daily. ondansetron orally disintegrating (ZOFRAN ODT) 4 mg disintegrating tablet Take 1 tablet by mouth every 6 hours as needed for Nausea/Vomiting. atorvastatin (LIPITOR) 20 mg tablet every day escitalopram oxalate (LEXAPRO) 10 mg tablet every day BABY ASPIRIN ORAL Take 1 tablet by mouth once daily. tamsulosin ER (FLOMAX) 0.4 mg cp24 every day gabapentin (NEURONTIN) 300 mg capsule apixaban (ELIQUIS) 5 mg tab tab(s) Take by mouth twice daily. meclizine (ANTIVERT) 12.5 mg tab Take 2 tablets by mouth twice daily as needed. lisinopril (ZESTRIL, PRINIVIL) 20 mg tablet Take 1 tablet by mouth once daily. pantoprazole DR (PROTONIX) 40 mg tablet Take 1 tablet by mouth once daily. albuterol HFA (PROVENTIL HFA, VENTOLIN HFA) 90 mcg/actuation inhaler Inhale 2 Puffs as instructed every 4 hours as needed. REVIEW OF SYSTEMS COMPLETE REVIEW OF SYSTEMS GENERAL: No weight loss, malaise or fevers HEENT: Headaches NECK: Negative for lumps, goiter, pain and significant neck swelling RESPIRATORY: Negative for cough, wheezing or shortness of breath. CARDIOVASCULAR: chest pain, leg swelling or palpitations. GI: Negative for abdominal discomfort, blood in stools or black stools or change in bowel habits. : No history of dysuria, frequency or incontinence. MUSCULOSKELETAL: Negative for joint pain or swelling, back pain or muscle pain. SKIN: Negative for lesions, rash, and itching. PSYCH: Anxiety and Depression HEMATOLOGY/LYMPHOLOGY: Negative for prolonged bleeding, bruising easily or swollen nodes. ENDOCRINE: Negative for cold or heat intolerance, polyuria, polydipsia and goiter. ALLERGIC/IMMUNOLOGIC: Negative for autoimmune diseases and allergies. NEURO: SEE HPI Objective PHYSICAL EXAM Vital Signs: BP 120/90 Pulse 66 Temp 36.7 ?C (98 ?F) (Oral) Resp 18 Ht 180.3 cm (5' 11) Wt 108.2 kg (238 lb 8 oz) SpO2 98% BMI 33.26 kg/m? GENERAL: Awake/easily arousable HEENT: Normocephalic/atraumatic, no lymphadenopathy, thyroid non-tender, without palpable masses/nodules or enlargement RESPIRATORY: Normal respiratory effort. Clear to auscultation without rhonchi, rales, wheezing. CARDIOVASCULAR: RRR, normal S1, S2 auscultated, no murmur present GI: Soft abdomen, nontender, nondistended without mass. No hepatosplenomegaly. Normal bowel sounds EXTREMITIES: No cyanosis, clubbing or edema. Good capillary refill. SKIN: Skin color, texture, turgor normal. No rashes or lesions. MUSCULOSKELETAL Spine range of motion normal. Muscular strength intact. NEUROLOGICAL: LOC: 0 - alert and responsive 0 LOC Questions: 0 - both correct 0 LOC Commands: 0 - both correct 0 LOC Normal Gaze: 0 - normal gaze 0 Visual Jackson: 1 - partial hemianopia, quadrantanopia (upper diminished bilaterally) 1 (upper diminished bilaterally) Facial Palsy: 0 - normal 0 Motor Left Arm: 0 - no drift 0 Motor Right Arm: 0 - no drift 0 Motor Left Le - no drift 0 Motor Right Le - no drift 0 Limb Ataxia: 0 - no ataxia (or aphasic, hemiplegic) (though difficulty falling towards R on gait testing) 0 (though difficulty falling towards R on gait testing) Sensory: 0 - normal 0 Language: 0 - normal 0 Dysarthria: 0 - normal 0 Extinction/Neglect: 0 - normal, none detected (or visual loss alone) 0 Initial NIHSS: 1 (06/01/18 1107 : Dennis Alford MD) 1 MENTAL STATUS: Alert, oriented to person, place and time and Follows commands CRANIAL NERVES: PERRLA, Visual jackson intact to confrontation, Facial sensation intact, Face symmetric, No facial droop or ptosis he has hearing loss,left lateral gaze nystagmus Which is bilateral and old . MOTOR: No drift MOTOR STRENGTH: Upper and lower extremity 5/5 bilaterally REFLEXES: UE and LE reflexes are equal and reactive SENSATION: Intact light touch COORDINATION: Finger-to- nose-finger intact bilaterally GAIT: Not assessed feels imbalanced with the headache DATA: Diagnostic tests reviewed for today's visit: Lipids, HbA1c, Recent Labs 06/02/18 0552 06/01/18 1004 CHOL 118 -- HDL 32* -- LDL 69 -- TG 83 -- HBA1C -- 5.2 CMP, CBC, Coags Recent Labs 06/01/18 1004 NA 142 K 3.7 CHLOR 104 CO2 28 BUN 15 CREAT 0.88 GLUC 90 CA 9.2 MG 2.0 WBC 6.32 HB 13.5 HCT 42.6 PLT 306 INR 1.0 APTT 25.9 Cardiac Enzymes Recent Labs 06/01/18 1636 06/01/18 1004 CK -- 65 MB -- 1.1 TROPT <0.010 <0.010 usCRP Most recent labs and imaging results. STROKE CARE PATH [employer] Date Patient Last Known Well: 06/01/18 Time Patient Last Known Well: 0000 Carlo Coma Scale Totals (Calculated): 15 STROKE 9 CARE AND PREVENTION CHECKLIST 1. Is the patient currently on an ANTITHROMBOTIC medication (Antiplatelet or Anticoagulant): Dabigatran 2. Does the patient have known AFIB/FLUTTER: Paroxysmal atrial fibrillation Is the patient currently on anticoagulation: Yes 3. Is the patient on a STATIN: Atorvastatin 40 mg 4. Is the patient on VTE prophylaxis: Pharmacological prophylaxis Pharmacological intervention type: Lovenox 5. GLYCEMIC Control Medications: Not Diabetic 6. Stroke BP Goals: Permissive HTN (treat if >220/120) Stroke BP Control: BP well controlled 7. Stroke IVF/Nutrition: Diet 8. TEMPERATURE Control: Normothermic 9. Does the patient need THERAPY: Yes Reason for no therapy orders: Patient is at baseline, no therapy needed Therapy involvement: PT Stroke Care and Prevention (personally reviewed by Lucero Amador MD): PROBLEM LIST: Principal Problem: TIA (transient ischemic attack) POA: Yes Active Problems: Atypical chest pain POA: Yes Atrial fibrillation (HCC) POA: Yes Kidney stones POA: Yes Ectatic thoracic aorta (HCC) POA: Yes Resolved Problems: * No resolved hospital problems. * Impression/Recommendations Attila Del Cid is a 48 year old, male, right handed patient with headache diplopia as vertical diplopia ,dizziness,imbalance ? High risk for stroke ? Admitted for stroke work up ? Currently anticoagulated because of AF Risk Factors Hypertension Y Coronary Artery Disease NA Diabetes NA Obesity NA Dyslipidemia NA Tobacco Use (Please Update Smoking History) NA Stroke NA Stroke Mechanism PLAN ? STROKE WORK UP ? MRI BRAIN MRA BRAIN AND MRA CAROTID ? ECHO ? Continue anticoagulation ? Headache management ? Acute headache ,will give IV Magnesium ? Headache prevention and treatment ? Follow up in Neurology Clinic with myself in 2 -4 weeks after discharge ? Headache recommendation 1-Maintain regular sleep schedule. 2-Limit over the counter medications and prescription rescue meds to 2 days per week or less 3-Maintain headache diary. 4-Limit caffeine to 1-2, 4 oz cups per day or less (300 mg) 5-Limit diet sodas to12 oz or less per day. Avoid other sources of nutrasweet. 6-Avoid dietary triggers. (list given to pt) 7-Regular frequent meals. ? 8- Keep hydrated. Drink at least 6-8, 8 oz glasses of water/d ? IV tPA was not recommended to be given to the patient, refer to Exclusion Criteria as documented in Stroke Care Path. Imaging Ordered Today: MRI Brain ordered for TIA evaluation. SIGNATURE: Lucero Amador MD PATIENT NAME: Attila Del Cid DATE: June 02, 2018 TIME: 1:54 PM PAGER/CONTACT #: THERAPY NT Observed: 06/02/2018 Status: COMPLETED Source: [facility] 1:29 PM CLINIC OTHER CAMPUS REPOSITORY HNO ID: [id number] Author: Jaquan (Pt) Eveline Service: Physical Therapy Author Type: Physical Therapist Type: Therapy (PT/OT/Speech/Resp) Filed: 06/02/2018 1:51 PM Note Text: Physical Therapy Evaluation SERVICE DATE: 06/02/2018 SERVICE TIME: 1109 to 1141 ROOM: [id number] Recommended Discharge Disposition: Home Recommended Discharge Disposition Comments: Patient demonstrating safe basic mobility for homegoing with supervision from rohit. Recommend reinforcement of instruction to attend to physiological symptoms with position changes AND to follow cardiac restrictions. Anticipated Discharge Needs: Supervision at Home Supervision at Home due to: Decreased safety awareness (for compliance with reported cardiac restrictions) Recommended Discharge Equipment: No equipment needs anticipated PT Recommendations to Nursing: Ambulate without device;To bathroom;In halls;Transfer to/from chair;OOB for Meals;Sit at edge of bed (Supervision for safety due to physiological symptoms) Device: No Device PT 6 Clicks Score: 24 Precautions/Activity Restrictions: Fall Risk ASSESSMENT : Patient presents with headache, R shoulder pain, dizziness w/position changes, unsteady gait at admission. Requires skilled PT for instruction in energy conservation, compliance with cardiac restrictions, attention to physiological changes. Patient demonstrating safe basic mobility for homegoing. Recommend supervision for compliance with mobility instructions AND cardiac restrictions. Vital signs monitored AND WNL. Note dizziness to minimize with sustained positioning. No gait deviations noted on level surface or stairs. Patient Disposition at Start of Session: Supine in Bed;Call Mcneil in Reach Patient Disposition at End of Session: OOB in Chair;Family Present;Call Mcneil in Reach Tolerated Full Session (w/ report of FANG, dizziness) Physical Therapy Problem List: Education Deficit;Safety Deficits;Functional Mobility Impairment Patient /Caregiver Goals: Go Home Goals for Plan of Care: Goal: Patient demonstrates AND voices comprehension of instruction/education for safe basic mobility to minimize fall risk AND further complications - MET Progress Toward Goals: Progressing as expected Rehab Potential: Good PLAN: Treatment Frequency (times per week): 1;Discontinue Therapy Services Reasons Therapy Services Discontinued: Goals met Treatment Duration (number): 1 Visits Treatment Interventions: Education;Energy Conservation Training;Functional Mobility Training Plan of Care developed with: Patient;Caregiver;Family TREATMENT INTERVENTIONS: Therapy Diagnosis: Unsteadiness on feet Interventions Provided: Evaluation;Therapeutic Activity (13472) $ Evaluation-Low (46195) Billed Units: 1 unit Therapeutic Activity (84160) Treatment Minutes: 10 1 unit Skilled Intervention(s): Education with attention to physiological changes with position changes, need for static positioning after position change to allow accomodation. Instruction to limit physical activity, with compliance to reported cardiac restrictions (pt reports lifting restriction due to AAA) Educated patient in effects of immobility, benefits of intermittent OOB activity AND position changes to avoid further complications Educated patient on role of PT during acute stay Educated patient on PT POC and rationale for discharge recommendation of home, no acute PT need, may benefit from further PT follow up for R shoulder pain. Instructed patient in safe Indep OOB mobility, with attention to physiological changes. Notified CM AND RN of Patient performance, PT recommendations for discharge. Total Timed Code Treatment Minutes: 10 Total Treatment Time (minutes): 32 FUNCTIONAL G CODE: PT 6 Clicks Score: 24 (06/02/18 1109) $ Mobility: Walking and Moving Around Current Status (G8978): (06/02/18 1109) $ Mobility: Walking and Moving Around Goal Status (G8979): (06/02/18 1109) $ Mobility: Walking and Moving Around Discharge Status (G8980): (06/02/18 1109) Based on clinical assessment and the score on the 6 Clicks Functional Assessment Tool, the G code and corresponding severity modifiers are documented above. Physician signature certifies treatment plan of care established above for the period of 06/02/2018 through 06/16/2018. SUBJECTIVE: Current Hospital Course: Chart reviewed; . 06/01/[address]: No acute intracranial findings. Age-appropriate normal brain. Patent intracranial circulation. Mild narrowing of the carotid bifurcations (30% right, 15% left) by NASCET criteria. Patent cervical vertebral arteries. Reason for Physical Therapy Consult : PT eval AND treat for new functional deficit Relevant Past Medical History: Presented to ED w/chest pain, FANG, blurred vision, difficulty walking. Admitted w/stroke-like symptoms, chest pain. PMHx: Atrial fib, AAA, anxiety, lumbar fusion, partial R knee replacement . Patient reports OA R shoulder, carpal tunnel R wrist. Patient Report: Patient in darkened room, agreeable to PT session. Patient reports recent BP med changes over the past several weeks. Patient voices comprehension of and follows instruction provided. Fiance present for AND observed session/education provided. Home Environment Patient Lives With: Significant Other (fiance) Assistance Available: time study clerk Entry To Home: Stairs;With Rail Number Of Stairs Into Home: 6 (5+1) Number Of Stairs To Bed/Bath: 5 Stairs to Bed/Bath with: Unilateral Rail Equipment Owned: Cane;Crutch(es);Wheeled Walker Prior Functional Level: Within Functional Limits (Indep amb no device, ADLs,disability,+home remodeling, TV) OBJECTIVE: Range Of Motion: Within Functional Limits (BUE/LE; reports soreness w/R shldr motions) Strength: Within Functional Limits (grossly 4-/5 B shldr, bottle washer, 4/5 B elb,LE) Vital Signs Intra Assessment 1: Heart Rate Intra 1, BP Intra 1, SpO2 Intra 1, Oxygen Equipment Intra 1 Intra Heart Rate 1: 62 Intra BP 1: 120/90 Intra BP Position 1: Sitting Intra SpO2 1: 99 Intra O2 Equipment 1: Room Air Pain: 6/10 chest, 7/10 frontal FANG; no change during session Dizziness reported with position changes, minimizes with static positioning Pt reports decreased light touch sensation R midthigh to mid calf, tingling R forearm/hand CURRENT FUNCTIONAL STATUS:Cuing provided for functional mobility as noted in above interventions. Current Functional Mobility Assist Level Additional Information Rolling Independent Supine to Sit Supervision vcs to hold static position to allow dizziness to ease Sit to Supine Scooting Independent Sit to Stand Supervision vcs to hold static position to allow dizziness to ease Stand to Sit Supervision Bed to Chair Supervision Bed To Chair Transfer Type: Stand Pivot Bed To Chair Transfer Equipment: Gait Belt Toilet/Commode Gait Stand By Assistance Gait Device: (gait belt) Gait Distance (feet): x150' Stairs Stand By Assistance (reciprocal gait) Stairs Device: Rail Number of Stairs: 8 Curb Step Car Transfer General Gait Deviations: Eva decreased (symmetrical gait, no imbalance) Balance: Static Sitting;Dynamic Sitting;Static Standing;Dynamic Standing Static Sitting Balance: Independent Dynamic Sitting Balance: Independent Static Standing Balance: Stand By Assistance (for safety, wide base) Dynamic Standing Balance: Stand By Assistance (for safety) Low fall risk w/Tinetti Balance/Gait score: 25/28 Please see discipline specific clinical documentation flowsheet for complete details for this therapy evaluation/treatment. SIGNATURE: Jaquan Mosquera PT PATIENT NAME: Attila Del Cid DATE: June 02, 2018 TIME: 1:30 PM NURSING PROG Observed: 06/02/2018 Status: COMPLETED Source: [facility] 12:26 PM [facility] OTHER CAMPUS REPOSITORY HNO ID: [id number] Author: Camille (Rn) ALE Hinds Service: (none) Author Type: Registered Nurse Type: Nursing Progress Note Filed: 06/02/2018 6:23 PM Note Text: Nursing Progress Note Patient Name: Attila Del Cid Patient Location: [id number] Daily Note:0740: Pt off of floor at this time for echo. 0830: Pt back to floor at this time. Meal tray provided. 0905: Pt off of floor at this time for MRI. Pre-screening form faxed at this time. 1030: Pt back to floor at this time. Rating chest pain and frontal FANG at 7/10 with c/o nausea. PRN pain medication and antiemetic provided. Prior to floor departure for scan, pt was able to consume 100% of his meal tray. 1215: Pt c/o worsening chest pain; EKG completed and reads NSR at 60bpm. Attending notified, and orders given to continue to monitor. Question of true pain has been evaluated due to when entering room pt is found resting quietly in bed. No SANDS of pain are displayed currently, and initial HR read 58 bpm when hooking patient up to EKG machine. 1530: Attending at bedside; she has been notified that MRI is negative for CVA, but positive for thick mucous to pts R maxillary sinus. Per neurology, magnesium 1g IV has been started to treat pts migraine-like symptoms, which he does have a significant history for. Dr. Reddy plans to add the other components of the migraine cocktail for admin. Neurology has been notified of negative MRI results at well. 1715: Attending has changed pts neuro checks to q8h. This note was completed by: CAMILLE HINDS RN EKG Observed: 06/02/2018 Status: F Source: [facility] 12:17 PM [facility] OTHER CAMPUS REPOSITORY NAME : ATTILA DEL CID PID : [id number] : 1970 Gender : Male Race : ORD : [id number] Procedure Date : Jun 02 2018 12:17:09 Edit Date : Jun 02 2018 14:17:57 Diagnosis:NORMAL SINUS RHYTHM NORMAL ECG WHEN COMPARED WITH ECG OF 01-JUN-2018 10:02, NO SIGNIFICANT CHANGE WAS FOUND Confirmed by MD STROUD QARAB ([id number]) on 06/02/2018 2:17:50 PM Ventricular Rate : 60 BPM Atrial Rate : 60 BPM P-R Interval : 170 ms QRS Duration : 94 ms Q-T Interval : 420 ms QTC Calculation(Bezet) : 420 ms P Greenwood : 14 degrees R Greenwood : 15 degrees T Greenwood : 12 degrees Test Reason : Arrhythmia Location : 3 : 2N 268 Overread By : MD STROUD QARAB Edited By : MD STROUD QARAB Referred By : HOSPITALIST, Acquired by : SALUD MERAZ NT Observed: 06/02/2018 Status: COMPLETED Source: [facility] 10:11 AM [facility] OTHER [place] REPOSITORY HNO ID: [id number] Author: Layne Cheng/Darlene Reyes Service: Occupational Therapy Author Type: Occupational Therapist Type: Therapy (PT/OT/Speech/Resp) Filed: 06/02/2018 10:14 AM Note Text: OCCUPATIONAL THERAPY MISSED VISIT SERVICE DATE: 06/02/2018 SERVICE TIME: 1011 to 1011 ROOM: [place] [address] Attempted Evaluation. Patient not seen due to Other: See Comment. Discussed with RN, Camille, pt has been up and ambulating independently into bathroom. Observed pt during functional mobility. Discussed with pt and visitor role of OT. Pt with no questions or concerns in regards to self care tasks. Educated pt if change in functional status, notify RN, services remain available if indicated. Plan to discontinue OT order at this time. SIGNATURE: KENNEY Patiño PATIENT NAME: Attila Del Cid DATE: June 02, 2018 TIME: 10:11 AM MRI BRAIN WO IVCON Observed: 06/02/2018 Status: F Source: [facility] 10:00 AM [facility] OTHER [place] REPOSITORY * * *Final Report* * * DATE OF EXAM: Jun 02 2018 10:00AM [facility] 0294 - MRI BRAIN WO IVCON / PROCEDURE REASON: TIA, initial exam * * * * Physician Interpretation * * * * EXAMINATION: MRI BRAIN WO IVCON CLINICAL HISTORY: Stroke: Hyperacute TIA, initial exam, TECHNIQUE: Routine noncontrast MRI protocol including diffusion images. MQ: [id number] COMPARISON: 06/01/[address] RESULT: Acute Change: There is no evidence of restricted diffusion to suggest an acute infarct. Hemorrhage: No evidence of prior parenchymal hemorrhage on the gradient echo images. Mass Lesion/ Mass Effect: No evidence of an intracranial mass or extra-axial fluid collection. No significant mass effect. Chronic Change: The white matter is within normal limits of signal intensity for age. Parenchyma: No significant volume loss for age. The brain parenchyma is otherwise within normal limits of signal intensity and morphology. Ventricles: Normal caliber and morphology. Skull Base: Hypothalamic and pituitary region are grossly normal. Craniocervical junction is normal. No significant marrow replacement process. Vasculature: Major intracranial arterial structures, and dural venous sinuses show typical flow void, suggesting patency by spin echo criteria. Other: Moderate mucosal thickening in the inferior right maxillary sinus. The mastoids are clear.. The orbits and extracranial soft tissues are unremarkable. IMPRESSION: No acute intracranial abnormality. 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: [facility] Transcribe Date/Time: Jun 02 2018 3:25P Dictated by : SHAMA CHAPARRO MD This examination was interpreted and the report reviewed and electronically signed by: SHAMA CHAPARRO MD on Jun 02 2018 3:29PM EST [id number] THERAPY NT Observed: 06/02/2018 Status: COMPLETED Source: [facility] 8:23 AM CLINIC OTHER CAMPUS REPOSITORY O ID: [id number] Author: Layne Cheng/Darlene Reyes Service: Occupational Therapy Author Type: Occupational Therapist Type: Therapy (PT/OT/Speech/Resp) Filed: 06/02/2018 8:24 AM Note Text: OCCUPATIONAL THERAPY MISSED VISIT SERVICE DATE: 06/02/2018 SERVICE TIME: 822 to 822 ROOM: [id number] Attempted Evaluation. Patient not seen due to Another service at bedside (Speech Therapy). Will attempt as able. SIGNATURE: EDGARDO Patiño/Lynette PATIENT NAME: Attila Del Cid DATE: June 02, 2018 TIME: 8:23 AM THERAPY NT Observed: 06/02/2018 Status: COMPLETED Source: [facility] 8:00 AM CLINIC OTHER CAMPUS REPOSITORY HNO ID: [id number] Author: Agatha (Transfer Table Operator Helper) Edmundo Thao CCC/MEDICAL OBSERVER Service: Speech/Swallow Author Type: Speech Language Pathologist Type: Therapy (PT/OT/Speech/Resp) Filed: 06/02/2018 8:55 AM Note Text: Speech Therapy Speech Evaluation, Clinical Swallow Evaluation SERVICE DATE: 06/02/2018 SERVICE TIME: 0800 to 0845 ROOM: [place] [address] Diet Recommendations: Regular Consistency;Thin liquids Swallowing Precautions Recommendations: Self-monitoring;Sit upright 90 degrees for all PO Results and Recommendations Discussed With: Patient;Significant Other Recommended Discharge Disposition: Unable to determine (please see PT/OT for recommendations) IMPRESSION: The patient was seen for clinical swallowing evaluation only. It is reasonably anticipated that the patient will be able to tolerate a Regular diet with Thin liquids without overt clinical signs / symptoms of oral and/or pharyngeal difficulties and maintenance of nutrition and hydration. Continue all other therapeutic dietary orders as deemed appropriate by the attending physician. This patient was seen for speech-language evaluation only. The patient is demonstrating functional Expressive / Receptive Language skills for the acute care setting. It is reasonably anticipated that the patient will be able to functionally communicate all ADL social / medical wants/needs without difficulty. The Speech-Language Pathology Department remains available for further consultation as deemed necessary and/or warranted by the referring physician. ASSESSMENT: Tolerated Full Session Goals for Plan of Care: NA Patient /Caregiver Goals: Go Home PLAN: Treatment Frequency (times per week): Discontinue Therapy Services Reasons Inpatient Therapy Services Discontinued: Patient appears safe and appropriate re: communication, cognition, and swallow function with the ability to return to a baseline level of function;No skilled needs TREATMENT INTERVENTIONS: Therapy Diagnosis: No Skilled Need Interventions Provided: Speech Language Eval (49721);Clinical Swallow Evaluation (05112) $ Speech Language Eval (46786) Billed Units: 1 unit Assessment of the patient's Expressive / Receptive Language skills within the acute care setting is completed to determine patient's ability to effectively communicate ADL needs and potential need for additional therapeutic intervention $ Clinical Swallow Evaluation (63703) Billed Units: 1 unit Clinical Swallowing assessment completed to determine the patient's current swallowing skills and potential need for additional diagnostics and/or therapeutic intervention. Total Treatment Time (minutes): 45 FUNCTIONAL G CODE: $ Spoken Language Expression Current Status (G9162): (06/02/18799) $ Spoken Language Expression Goal Status (G9163): (06/02/18799) $ Spoken Language Expression Discharge Status (G9164): (06/02/18799) Based on clinical assessment and the score on the Functional Communication Measure (FCM), the G code and corresponding severity modifiers are documented above. Physician signature certifies treatment plan of care established above for the period of 06/02/2018 through 06/16/2018. SUBJECTIVE: Current Hospital Course: Chart reviewed; medical chart indicates history of atrial fibrillation and ascending aortic aneurysm as well as anxiety now presenting with headache and double vision Reason for Speech Therapy Consult: TIA Relevant Past Medical History: HTN, PNA Patient Report: I don't think that I am having any trouble speaking. At the last ED visit, patient indicates that he may have been having some mild word finding difficulties. Home Environment Prior Functional Level: Within Functional Limits Prior Swallowing Function/Diet Textures: Regular Consistency;Thin liquids Please see discipline specific clinical documentation flowsheet for complete details for this therapy evaluation/treatment. SIGNATURE: Agatha Thao CCC-MEDICAL OBSERVER PATIENT NAME: Attila Del Cid DATE: June 02, 2018 TIME: 8:52 AM PAGER: [phone] LIPID PANEL, BASIC Collected: 06/02/2018 Status: F Source: [place] 5:52 AM CLINIC OTHER CAMPUS REPOSITORY TYPE CODE TESTS RESULT OUT OF REFERENCE UNITS RANGE LAB CHOL <200 mg/dL Cholesterol 118 Result Comment: <200 mg/dL, Desirable 200-239 mg/dL, Borderline high >239 mg/dL, High LAB TRIGLY <150 mg/dL Triglyceride 83 Result Comment: <150 mg/dL, Normal 150-199 mg/dL, Borderline high 200-499 mg/dL, High >499 mg/dL, Very high LAB HDL >39 mg/dL HDL-Cholesterol Low 32 Result Comment: 40-59 mg/dL, Acceptable >59 mg/dL, High: Negative risk factor for coronary heart disease <40 mg/dL, Low: Positive risk factor for coronary heart disease LAB LDL <100 mg/dL LDL-Cholesterol 69 Result Comment: <100 mg/dL, Optimal 100-129 mg/dL, Near optimal/above optimal 130-159 mg/dL, Borderline high 160-189 mg/dL, High >189 mg/dL, Very high Secondary prevention optimal LDL Cholesterol levels are recommended to be < 70 mg/dL LAB NONHDL <130 mg/dL Non HDL Cholesterol 86 Result Comment: <130 mg/dL, Optimal 130-159 mg/dL, Near optimal/above optimal 160-189 mg/dL, Borderline high 190-219 mg/dL, High >219 mg/dL, Very high Secondary prevention optimal non HDL Cholesterol levels are recommended to be < 100 mg/dL LAB FT hrs Fasting Time Unknown LAB VLDL <30 mg/dL VLDL Cholesterol 17 LAB TCHDL <5.10 TC:HDL Ratio 3.69 LAB LDLHDL <2.54 LDL:HDL Ratio 2.16 Result Comment: Reference: 1. National Cholesterol Education Program ATP III Guideline At-A-Glance Quick Desk Reference: National Heart, Lung, and Blood [place]. National Institutes of Health. 2001: NIH Publication No. 01-3305. 2. An International Atherosclerosis Society position paper: global recommendations for the management of dyslipidemia: executive summary, Atherosclerosis. 2014: 232(2):410-413. Performed By: #### LIPB #### [facility] [address] [id number] NURSING PROG Observed: 06/01/2018 Status: COMPLETED Source: [place] 10:51 PM [facility] OTHER CAMPUS REPOSITORY [facility] ID: [id number] Author: Angela (Rn) ALE Johnson Service: (none) Author Type: Registered Nurse Type: Nursing Progress Note Filed: 06/02/2018 6:14 AM Note Text: Nursing Progress Note Patient Name: Attila Del Cid Patient Location: [id number] Daily Note: 1900: Bedside report received. Pt stating that the Percocet is not helping his pain in his chest and states he is a 6/10 pain. Family at bedside. Pt is SR on tele. PT has no fluids running. 2100: Pt given more pain medication for chest. Pt states that the pain is not radiating and feels like pressure. Family at bedside. No other needs at this time. 2300: Neuro check completed and no changes noted. Pt is SR on tele. No other needs at this time. 0100: Neuro check uneventful. Pt still having discomfort in his chest. SR on tele. 0300: Pt states he still has a frontal headache with the chest discomfort. Pt has been getting sleep and is AANDO x 3. SR on tele 0500: Neuro check was uneventful. Pt made no comments about having pain. Family stayed at bedside all night. Pt has no signs of distress at this time. This note was completed by: Angela Johnson RN HISTORY PHYSICAL Observed: 06/01/2018 Status: COMPLETED Source: [place] 9:48 PM CLINIC OTHER CAMPUS REPOSITORY O ID: [id number] Author: Mariah Rivera) Cynthia Service: Hospital Medicine Author Type: Physician Type: HANDP Filed: 06/01/2018 10:06 PM Note Text: HOSPITAL MEDICINE HISTORY AND PHYSICAL EXAM PATIENT NAME: Attila Del Cid SERVICE DATE: 06/01/2018 SERVICE TIME: 9:48 PM Primary Care Physician: Nyla Bearden MD NIGHT COVERAGE Page [phone] for any questions between 5.30p-7.30a ASSESSMENT AND PLAN Active Hospital Problems Diagnosis - TIA (transient ischemic attack) - Atypical chest pain - Ectatic thoracic aorta (HCC) ascending aorta - Kidney stones - Atrial fibrillation (HCC) 09/2017 Dr. Suzanne ALVES to complete atrial ablation 10/09/2017. On Eliquis. TIA (transient ischemic attack) NIHS score of 1 ( right arm sensation changes) CTA and CT of brain negative TIA / Stroke pathway Check Lipid panel and Hbg A1c in am BG check for 24 Neuro checks q2 hrs MRI in AM Neurology eval Cont statin for now At this time no indication for PT/OT nor ST eval. Atypical chest pain Seems atypical First troponin negative Recheck troponin x 1 more Ectatic thoracic aorta No dissection on CT chest Atrial fibrillation 09/2017 Dr. Suzanne ALVES to complete atrial ablation On Eliquis Currently in NSR Kidney stones Still 2 kidney stones left Not an acute issue at this time SUBJECTIVE CHIEF COMPLAINT: Blurred vision, chest pain and headache. HPI: This is a 48 year old male who presents with hx of AFIB with ablation on anticoagulation, ascending aortic aneurysm, anxiety , kidney stone, HTN, dyslipidemia, obesity who presents to [place] [facility] for chest pain, blurred vision, FANG and sensation decrease in his right fore arm. No changes in strenght. Patient has noticed these symptoms on and off over the last 24 hrs. He did have something similar a few months back and observed in the hospital, but it seems no vessel imaging. While this morning he woke around 8 AM and had again the symptoms and now also difficult to walking and feeling he would fall he presented to the ER. No speech issues and no difficulties of swallowing. Patient evaluated in the ER with CT and CTA for the brain without any issues. Due to patient's chest pain and TIA like symptoms he will be admitted to obs for further evaluation. PAST MEDICAL HISTORY: PAST MEDICAL HISTORY Diagnosis Date - Acute right flank pain 03/25/2018 - Aneurysm of ascending aorta (HCC) - Aortic aneurysm (HCC) - Arthritis - Atrial fibrillation (HCC) - Calculi, ureter - Calculus of kidney - Hematuria - Hypertension - Kidney stones 03/25/2018 - Pneumonia - Psychiatric disorder anxiety PAST SURGICAL HISTORY: PAST SURGICAL HISTORY Procedure Laterality Date - BACK SURGERY HX 2014 FUSION, L4-L5 - COLONOSCOP W/ OR W/O BRSH SPEC 05/14/2014 Colonoscopy - EGD W/O OR W/BRUSH/WASH 05/14/2014 EGD - FRAGMENTING/KIDNEY STONE Right 2017 Lithotripsy - KNEE SURGERY HX Right 03/2017 patella replacement - [place] ANESTH,KNEE JOINT; NOS 12/2017 Left FAMILY HISTORY: FAMILY HISTORY Problem Relation Age of Onset - Diabetes Mother - Colon Cancer Mother - Heart disease Mother - Hypertension Mother - Diabetes Sister - Skin Cancer Father SOCIAL HISTORY: Social History Substance Use Topics - Smoking status: Never Smoker - Smokeless tobacco: Never Used - Alcohol use No MARITAL HISTORY: , Children yes, disability MEDICATIONS: Reviewed ALLERGIES: ALLERGIES Allergen Reactions - Celebrex [Celecoxib] Vomiting Nausea - Clonidine Rash - Fentanyl GI Upset - Levofloxacin Rash pt reports to [facility] PT 04-13-2017 - Penicillin G Rash - Relpax [Eletriptan * Vomiting Nausea - Topamax [Topiramate] Vomiting - Vicodin [Hydrocodon* Vomiting - Wellbutrin [Bupropi* Vomiting Nausea REVIEW OF SYSTEM: PAIN ASSESSMENT: Negative for pain, history of chronic pain, or current treatment for a chronic pain condition. GENERAL: No weight loss, malaise or fevers. HEENT: Negative for frequent or significant headaches, No changes in hearing or vision, no nose bleeds or other nasal problems. Some blurry vision NECK: Negative for lumps, goiter, pain and significant neck swelling RESPIRATORY: Negative for cough, hemoptysis, wheezing or shortness of breath CARDIOVASCULAR: Positive for intermittent chest pain, no leg swelling or palpitations. GI: No nausea, vomiting, or diarrhea : No history of dysuria, frequency or incontinence. MUSCULOSKELETAL: Negative for joint pain or swelling, back pain or muscle pain. SKIN: Negative for lesions, rash, and itching. PSYCH: Negative for sleep disturbance, mood disorder and recent psychosocial stressors. HEMATOLOGY/LYMPHOLOGY: Negative for prolonged bleeding, bruising easily or swollen nodes. ENDOCRINE: Negative for cold or heat intolerance, polyuria, polydipsia and goiter. NEURO: Positive for headache, No history of syncope, paralysis, seizures or tremors OBJECTIVE PHYSICAL EXAM: BP 134/83 Pulse 73 Temp (Src) 97.7 (Oral) Resp 17 Ht 5' 11 (1.80m) Wt 240 lb (108.9kg) SpO2 96% BMI 33.49 kg/(m2). GENERAL: alert, no distress, cooperative, obese SKIN: Skin color, texture, turgor normal. No rashes or lesions. HEAD/SINUSES: No significant findings. EYES: PERRLA and EOMI OROPHARYNX: Lips, mucosa, and tongue normal. Teeth and gums normal. Oropharynx normal. NECK: no jugulovenous distention, no carotid bruits, carotid pulse normal contour, supple BACK: Back symmetric, Normal curvature, ROM normal, No CVAT. LUNGS: Lungs clear to auscultation. Good diaphragmatic excursion. CARDIAC: normal S1 and S2; no rubs, murmurs, or gallops ABDOMEN: Abdomen soft, non-tender. BS normal. No masses or organomegaly. EXTREMITIES: Extremities normal. No deformities, edema, clubbing or skin discoloration., No ulcers NEURO: Reflexes normal and symmetric. Sensation grossly intact., Cranial nerves II-XII intact. Mild sensation loss on the right forearm PULSES: 2+ radial, 2+ carotid DATA: Diagnostic tests reviewed for today's visit: Most recent labs Most recent imaging Most recent EKG CBC: WBC 6.32 06/01/2018 HGB 13.5 06/01/2018 Hematocrit 42.6 06/01/2018 Platelet Count 306 06/01/2018 CMP: Sodium 142 06/01/2018 Potassium 3.7 06/01/2018 BUN 15 06/01/2018 Creatinine 0.88 06/01/2018 Glucose 90 06/01/2018 Chloride 104 06/01/2018 CO2 28 06/01/2018 VTE Prophylaxis: Patient is already anti-coagulated. Disposition: Home Plan of care discussed with: Patient, Family/Other: and RN SIGNATURE: Mariah Desai MD DATE: June 01, 2018 TIME: 9:48 PM TROPONIN T Collected: 06/01/2018 Status: F Source: [place] 4:36 PM [facility] OTHER CAMPUS REPOSITORY TYPE CODE TESTS RESULT OUT OF REFERENCE UNITS RANGE LAB TROPT 0.000-0.029 ng/mL Troponin T <0.010 Performed By: #### NARGIS #### [facility] [address] [facility] [phone] NURSING PROG Observed: 06/01/2018 Status: COMPLETED Source: [place] 3:00 PM [facility] OTHER CAMPUS REPOSITORY [facility] ID: [id number] Author: Kelsi (Rn) ALE Vu Service: Nursing Author Type: Registered Nurse Type: Nursing Progress Note Filed: 06/01/2018 4:11 PM Note Text: Nursing Progress Note Patient Name: Attila Del Cid Patient Location: [place] [id number] Daily Note: Pt AANDO x 3, calm and cooperative. Pt states he has chest pain 6/10. Lungs clear, resp even and nonlabored on room air, abd soft, nontender, BS + x 4. No edema noted. #20 in L AC capped. NIH SS and Neuro completed. Admission data gathered and assessment completed. Dr Desai paged and to floor. This note was completed by: Kelsi Vu, CHILDCARE AIDE NOTE Observed: 06/01/2018 Status: COMPLETED Source: [place] 1:28 PM [facility] OTHER CAMPUS REPOSITORY [facility] ID: [id number] Author: Anais (Rn) ALE Savage Service: (none) Author Type: Registered Nurse Type: ED Notes Filed: 06/01/2018 1:28 PM Note Text: Called to floor for report, Kelsi asked if she could call me back in 10 minutes, they just had a on the floor. CT CHEST WO IVCON Observed: 06/01/2018 Status: F Source: [place] 12:38 PM [facility] OTHER CAMPUS REPOSITORY * * *Final Report* * * DATE OF EXAM: Jun 01 2018 12:38PM [facility] 0541 - CT CHEST WO IVCON / PROCEDURE REASON: Chest pain or SOB, pleurisy or effusion suspected * * * * Physician Interpretation * * * * EXAMINATION: CHEST CT WITHOUT CONTRAST Indication: Chest pain or SOB, pleurisy or effusion suspected Technique: Spiral CT acquisition of the chest from the thoracic inlet to the upper abdomen without contrast. M: [id number] CT Radiation dose: Integrated Dose-length product (DLP) for this visit = 430 mGy*cm. CT Dose Reduction Employed: mAs-kVp adjusted based on patient size-age Comparison: 05/13/[address] RESULT: Lung parenchyma and pleura: Stable small area of linear fibrosis in the posterior left lower lobe. Scattered areas of atelectasis in both lungs. No consolidation. No suspicious pulmonary nodule. No pleural effusion. Central airways are patent. Heart, and mediastinum: No pericardial effusion. Stable ectasia of the ascending thoracic aorta, spanning maximum 4.6 cm. Thoracic lymph nodes: No mediastinal or hilar adenopathy. Bones and soft tissues: Mild degenerative changes of the thoracic spine. Upper abdomen: No abnormality in the imaged upper abdomen. IMPRESSION: Scattered areas of subsegmental atelectasis in both lungs. Stable ectasia of the ascending thoracic aorta. No significant change since the comparison study. 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: PSCB Transcribe Date/Time: Jun 01 2018 12:46P Dictated by : JUNG AYON MD This examination was interpreted and the report reviewed and electronically signed by: JUNG AYON MD on Jun 01 2018 12:48PM EST [id number] ED NOTE Observed: 06/01/2018 Status: COMPLETED Source: [place] 12:06 PM [facility] REPOSITORY [facility] ID: [id number] Author: Anais AminRn) ALE Savage Service: (none) Author Type: Registered Nurse Type: ED Notes Filed: 06/01/2018 12:06 PM Note Text: Patient has been to and from CT scan ED NOTE Observed: 06/01/2018 Status: COMPLETED Source: [place] 11:25 AM [facility] REPOSITORY [facility] ID: [id number] Author: Anais AminRn) ALE Savage Service: (none) Author Type: Registered Nurse Type: ED Notes Filed: 06/01/2018 11:32 AM Note Text: Clean catch urine specimen obtained and sent. URINALYSIS Collected: 06/01/2018 Status: F Source: [place] 11:25 AM [facility] REPOSITORY TYPE CODE TESTS RESULT OUT OF REFERENCE UNITS RANGE LAB UCOL Yellow Color Yellow LAB [facility] Clear Clarity Clear LAB UGLUC Negative mg/dL Glucose, Urine Negative LAB UBIL Negative Bilirubin, Urine Negative LAB UKET Negative Ketones, Urine Negative LAB USPG 1.001-1.029 Specific [place], Ur 1.010 LAB UHGB Negative Hemoglobin/Blood, Negative Ur LAB UPH 5.0-8.0 pH 6.5 LAB UPROT Negative mg/dL Protein, Urine Negative LAB UUROB 0.2-1.0 Urobilinogen 0.2 LAB UNITR Negative Nitrites Negative LAB ULKEST Negative Leukest Negative Performed By: #### UA #### [facility] [address] [facility] [phone] CTA NECK W IVCON Observed: 06/01/2018 Status: F Source: [place] 11:14 AM [facility] REPOSITORY * * *Final Report* * * DATE OF EXAM: Jun 01 2018 11:14AM [facility] 0024 - CTA NECK W IVCON / PROCEDURE REASON: Arteriovenous fistula (AVF) * * * * Physician Interpretation * * * * EXAMINATION: CT BRAIN WO IVCON, CTA HEAD W IVCON, CTA NECK W IVCON HISTORY: Ataxia, stroke suspected TECHNIQUE: Routine CT of the brain without IV contrast. Next, spiral high resolution axial images were obtained through the head, neck and superior mediastinum following bolus administration of intravenous contrast for CT angiography. The data was subsequently post-processed utilizing 3D multi-planar reconstructions, 3D maximum intensity projections, and a tissue segmentation algorithm at a separate workstation under physician supervision. MQ: CTABNPlus_3 Contrast: 80 mL Omnipaque 350 IV Dose-Length Product (DLP): 1228 mGy*cm CT Dose Reduction Employed: No dose reduction techniques were required COMPARISON: None. RESULT: BRAIN: Acute change: No evidence of an acute intracranial process. ASPECT Score = 10 Hemorrhage: No evidence of acute intracranial hemorrhage. ECASS hemorrhagic transformation score = Not Applicable Mass Lesion / Mass Effect: There is no evidence of an intracranial mass or extraaxial fluid collection. No significant mass effect. Chronic change: None apparent. Parenchyma: There is no significant volume loss. The brain parenchyma is otherwise within normal limits for age. Ventricles: The ventricles are within normal limits of size and configuration for age. Other: Mild mucosal thickening in the right maxillary antrum. Remaining paranasal sinuses, middle ear cavities and mastoid air cells are clear. The calvarium, skull base, orbits and extracranial soft tissues are unremarkable. NECK: Soft tissues: The soft tissue planes are maintained throughout. No evidence of a soft tissue mass in the neck or superior mediastinum. No significant lymphadenopathy is seen. Spine: Alignment is normal. No significant degenerative changes are present. Lungs: The visualized lungs are clear. CT ARTERIOGRAM: Extracranial Circulation: Aortic Arch: There is a normal branching pattern from the aortic arch. There is no significant stenosis in the proximal brachiocephalic vessels. Carotid Stenosis: Right Common: No significant stenosis. Right Internal Carotid Plaque: Focal smooth eccentric calcified and noncalcified atherosclerotic change in the carotid bulb and proximal right ICA. Right Internal Carotid Stenosis (% by NASCET Criteria): 30% Left Common: No significant stenosis. Left Internal Carotid Plaque: Focal smooth eccentric noncalcified atherosclerotic change in the carotid bulb and proximal left ICA. Left Internal Carotid Stenosis (% by NASCET Criteria): 15% Cervical Vertebral Arteries: Patency: Bilateral Dominance: Right Intracranial Circulation: Anterior Circulation: Distal ICAs and visualized portions of the ACAs and MCAs are normal in caliber. A1 segments are codominant. Vertebrobasilar Circulation: configuration of the right NATURAL DEVELOPER with hypoplastic right P1 segment. Distal vertebral arteries (right dominant), basilar trunk and television and radio repairer are otherwise normal in caliber. Proximal SCAs, right AICA and left PICA are patent. Left AICA and right PICA origins are not visualized. No vessel cut off, filling defect, significant focal narrowing or evidence of aneurysm in the visualized vessels. Opacified dural venous sinuses and major deep and superficial draining veins are patent. Multiple small circumscribed nonocclusive filling defects in the superior sagittal and both transverse sinuses represent arachnoid granulations. IMPRESSION: No acute intracranial findings. Age-appropriate normal brain. Patent intracranial circulation. Mild narrowing of the carotid bifurcations (30% right, 15% left) by NASCET criteria. Patent cervical vertebral arteries. 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: PSCB Transcribe Date/Time: Jun 01 2018 11:04A Dictated by : CARLOS GUTIERREZ MD This examination was interpreted and the report reviewed and electronically signed by: CARLOS GUTIERREZ MD on Jun 01 2018 11:18AM EST [id number] CTA HEAD W IVCON Observed: 06/01/2018 Status: F Source: [place] 11:14 AM CLINIC OTHER CAMPUS REPOSITORY * * *Final Report* * * DATE OF EXAM: Jun 01 2018 11:14AM [facility] [place] [facility] 0022 - CTA HEAD W IVCON / PROCEDURE REASON: Intracranial hemorrhage * * * * Physician Interpretation * * * * EXAMINATION: CT BRAIN WO IVCON, CTA HEAD W IVCON, CTA NECK W IVCON HISTORY: Ataxia, stroke suspected TECHNIQUE: Routine CT of the brain without IV contrast. Next, spiral high resolution axial images were obtained through the head, neck and superior mediastinum following bolus administration of intravenous contrast for CT angiography. The data was subsequently post-processed utilizing 3D multi-planar reconstructions, 3D maximum intensity projections, and a tissue segmentation algorithm at a separate workstation under physician supervision. MQ: CTABNPlus_3 Contrast: 80 mL Omnipaque 350 IV Dose-Length Product (DLP): 1228 mGy*cm CT Dose Reduction Employed: No dose reduction techniques were required COMPARISON: None. RESULT: BRAIN: Acute change: No evidence of an acute intracranial process. ASPECT Score = 10 Hemorrhage: No evidence of acute intracranial hemorrhage. ECASS hemorrhagic transformation score = Not Applicable Mass Lesion / Mass Effect: There is no evidence of an intracranial mass or extraaxial fluid collection. No significant mass effect. Chronic change: None apparent. Parenchyma: There is no significant volume loss. The brain parenchyma is otherwise within normal limits for age. Ventricles: The ventricles are within normal limits of size and configuration for age. Other: Mild mucosal thickening in the right maxillary antrum. Remaining paranasal sinuses, middle ear cavities and mastoid air cells are clear. The calvarium, skull base, orbits and extracranial soft tissues are unremarkable. NECK: Soft tissues: The soft tissue planes are maintained throughout. No evidence of a soft tissue mass in the neck or superior mediastinum. No significant lymphadenopathy is seen. Spine: Alignment is normal. No significant degenerative changes are present. Lungs: The visualized lungs are clear. CT ARTERIOGRAM: Extracranial Circulation: Aortic Arch: There is a normal branching pattern from the aortic arch. There is no significant stenosis in the proximal brachiocephalic vessels. Carotid Stenosis: Right Common: No significant stenosis. Right Internal Carotid Plaque: Focal smooth eccentric calcified and noncalcified atherosclerotic change in the carotid bulb and proximal right ICA. Right Internal Carotid Stenosis (% by NASCET Criteria): 30% Left Common: No significant stenosis. Left Internal Carotid Plaque: Focal smooth eccentric noncalcified atherosclerotic change in the carotid bulb and proximal left ICA. Left Internal Carotid Stenosis (% by NASCET Criteria): 15% Cervical Vertebral Arteries: Patency: Bilateral Dominance: Right Intracranial Circulation: Anterior Circulation: Distal ICAs and visualized portions of the ACAs and MCAs are normal in caliber. A1 segments are codominant. Vertebrobasilar Circulation: configuration of the right NATURAL DEVELOPER with hypoplastic right P1 segment. Distal vertebral arteries (right dominant), basilar trunk and television and radio repairer are otherwise normal in caliber. Proximal SCAs, right AICA and left PICA are patent. Left AICA and right PICA origins are not visualized. No vessel cut off, filling defect, significant focal narrowing or evidence of aneurysm in the visualized vessels. Opacified dural venous sinuses and major deep and superficial draining veins are patent. Multiple small circumscribed nonocclusive filling defects in the superior sagittal and both transverse sinuses represent arachnoid granulations. IMPRESSION: No acute intracranial findings. Age-appropriate normal brain. Patent intracranial circulation. Mild narrowing of the carotid bifurcations (30% right, 15% left) by NASCET criteria. Patent cervical vertebral arteries. 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: NEAL Transcribe Date/Time: Jun 01 2018 11:04A Dictated by : CARLOS GUTIERREZ MD This examination was interpreted and the report reviewed and electronically signed by: CARLOS GUTIERREZ MD on Jun 01 2018 11:18AM EST [id number] CT BRAIN WO IVCON Observed: 06/01/2018 Status: F Source: [place] 11:14 AM CLINIC OTHER CAMPUS REPOSITORY * * *Final Report* * * DATE OF EXAM: Jun 01 2018 11:14AM [facility] [place] 0504 - CT BRAIN WO IVCON / PROCEDURE REASON: Ataxia, stroke suspected * * * * Physician Interpretation * * * * EXAMINATION: CT BRAIN WO IVCON, CTA HEAD W IVCON, CTA NECK W IVCON HISTORY: Ataxia, stroke suspected TECHNIQUE: Routine CT of the brain without IV contrast. Next, spiral high resolution axial images were obtained through the head, neck and superior mediastinum following bolus administration of intravenous contrast for CT angiography. The data was subsequently post-processed utilizing 3D multi-planar reconstructions, 3D maximum intensity projections, and a tissue segmentation algorithm at a separate workstation under physician supervision. MQ: [id number] Contrast: 80 mL Omnipaque 350 IV Dose-Length Product (DLP): 1228 mGy*cm CT Dose Reduction Employed: No dose reduction techniques were required COMPARISON: None. RESULT: BRAIN: Acute change: No evidence of an acute intracranial process. ASPECT Score = 10 Hemorrhage: No evidence of acute intracranial hemorrhage. ECASS hemorrhagic transformation score = Not Applicable Mass Lesion / Mass Effect: There is no evidence of an intracranial mass or extraaxial fluid collection. No significant mass effect. Chronic change: None apparent. Parenchyma: There is no significant volume loss. The brain parenchyma is otherwise within normal limits for age. Ventricles: The ventricles are within normal limits of size and configuration for age. Other: Mild mucosal thickening in the right maxillary antrum. Remaining paranasal sinuses, middle ear cavities and mastoid air cells are clear. The calvarium, skull base, orbits and extracranial soft tissues are unremarkable. NECK: Soft tissues: The soft tissue planes are maintained throughout. No evidence of a soft tissue mass in the neck or superior mediastinum. No significant lymphadenopathy is seen. Spine: Alignment is normal. No significant degenerative changes are present. Lungs: The visualized lungs are clear. CT ARTERIOGRAM: Extracranial Circulation: Aortic Arch: There is a normal branching pattern from the aortic arch. There is no significant stenosis in the proximal brachiocephalic vessels. Carotid Stenosis: Right Common: No significant stenosis. Right Internal Carotid Plaque: Focal smooth eccentric calcified and noncalcified atherosclerotic change in the carotid bulb and proximal right ICA. Right Internal Carotid Stenosis (% by NASCET Criteria): 30% Left Common: No significant stenosis. Left Internal Carotid Plaque: Focal smooth eccentric noncalcified atherosclerotic change in the carotid bulb and proximal left ICA. Left Internal Carotid Stenosis (% by NASCET Criteria): 15% Cervical Vertebral Arteries: Patency: Bilateral Dominance: Right Intracranial Circulation: Anterior Circulation: Distal ICAs and visualized portions of the ACAs and MCAs are normal in caliber. A1 segments are codominant. Vertebrobasilar Circulation: configuration of the right NATURAL DEVELOPER with hypoplastic right P1 segment. Distal vertebral arteries (right dominant), basilar trunk and television and radio repairer are otherwise normal in caliber. Proximal SCAs, right AICA and left PICA are patent. Left AICA and right PICA origins are not visualized. No vessel cut off, filling defect, significant focal narrowing or evidence of aneurysm in the visualized vessels. Opacified dural venous sinuses and major deep and superficial draining veins are patent. Multiple small circumscribed nonocclusive filling defects in the superior sagittal and both transverse sinuses represent arachnoid granulations. IMPRESSION: No acute intracranial findings. Age-appropriate normal brain. Patent intracranial circulation. Mild narrowing of the carotid bifurcations (30% right, 15% left) by NASCET criteria. Patent cervical vertebral arteries. 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: [facility] Transcribe Date/Time: Jun 01 2018 11:04A Dictated by : CARLOS GUTIERREZ MD This examination was interpreted and the report reviewed and electronically signed by: CARLOS GUTIERREZ MD on Jun 01 2018 11:18AM EST [id number] ED PROV NOTE Observed: 06/01/2018 Status: COMPLETED Source: [place] 11:08 AM CLINIC OTHER CAMPUS REPOSITORY O ID: [id number] Author: Dennis Alford MD Service: (none) Author Type: Physician Type: ED Provider Notes Filed: 06/01/2018 12:45 PM Note Text: ED Provider Note Patient Name: Attila Del Cid SERVICE DATE: 06/01/18 History Patient presents with: Headache: when he woke up Blurred Vision: bad yesterday too Chest Pain: started this am, comes and goes Mr. Cardenas is a pleasant 48-year-old male with a history of atrial fibrillation and ascending aortic aneurysm as well as anxiety now presenting with headache and double vision, particularly when he looks up, briefly yesterday for 2 hours from 4 to 6 PM, as well as a similar episode from [id number] yesterday, but 12 hours ago now, where he had difficulty walking as well. He had a similar episode several months ago, and was admitted for hospital. He thinks he had a CT scan then, but no CTA. He presently woke up at 8 AM this morning, about 3 hours prior to arrival, last normal midnight, about 11 hours prior to arrival, with similar symptoms, as well as difficulty walking, feeling like he is going to fall on the right. He has some mild nausea. He does get some headaches intermittently, but this is a bit different. He denies any unilateral weakness or numbness or trouble speaking or swallowing. PAST MEDICAL HISTORY Diagnosis Date - Acute right flank pain 03/25/2018 - Aneurysm of ascending aorta (HCC) - Aortic aneurysm (HCC) - Arthritis - Atrial fibrillation (HCC) - Calculi, ureter - Calculus of kidney - Hematuria - Hypertension - Kidney stones 03/25/2018 - Pneumonia - Psychiatric disorder anxiety PAST SURGICAL HISTORY Procedure Laterality Date - BACK SURGERY HX 2015 FUSION, L4-L5 - COLONOSCOP W/ OR W/O BRSH SPEC 05/14/2014 Colonoscopy - EGD W/O OR W/BRUSH/WASH 05/14/2014 EGD - FRAGMENTING/KIDNEY STONE Right 2017 Lithotripsy - KNEE SURGERY HX Right 03/2017 patella replacement - [place] ANESTH,KNEE JOINT; NOS 12/2017 Left FAMILY HISTORY Problem Relation Age of Onset - Diabetes Mother - Colon Cancer Mother - Heart disease Mother - Hypertension Mother - Diabetes Sister - Skin Cancer Father Social History Social History Main Topics - Smoking status: Never Smoker - Smokeless tobacco: Never Used - Alcohol use No - Drug use: No - Sexual activity: Not on file ALLERGIES Allergen Reactions - Celebrex [Celecoxib] Vomiting Nausea - Clonidine Rash - Fentanyl GI Upset - Levofloxacin Rash pt reports to [facility] PT 04-13-2017 - Penicillin G Rash - Relpax [Eletriptan * Vomiting Nausea - Topamax [Topiramate] Vomiting - Vicodin [Hydrocodon* Vomiting - Wellbutrin [Bupropi* Vomiting Nausea Review of Systems Constitutional: Negative for chills and fever. HENT: Negative for ear pain, rhinorrhea and sore throat. Eyes: Positive for visual disturbance. Respiratory: Negative for cough and shortness of breath. Cardiovascular: Negative for chest pain and leg swelling. Gastrointestinal: Positive for nausea. Negative for abdominal pain, diarrhea and vomiting. Genitourinary: Negative for dysuria, flank pain, frequency and hematuria. Musculoskeletal: Negative for back pain. Skin: Negative for rash. Neurological: Positive for headaches. Negative for speech difficulty, weakness, light-headedness and numbness. + gait problem Psychiatric/Behavioral: Negative for hallucinations and suicidal ideas. Physical Exam BP 126/92 Pulse 73 Temp (Src) 98.4 (Oral) Resp 18 Ht 5' 11 (1.80m) Wt 240 lb (108.9kg) SpO2 99% BMI 33.49 kg/(m2). Physical Exam Constitutional: He is oriented to person, place, and time. He appears well-developed and well-nourished. No distress. HENT: Head: Normocephalic and atraumatic. Mouth/Throat: No oropharyngeal exudate. Eyes: Pupils are equal, round, and reactive to light. nystagmus Neck: Normal range of motion. Neck supple. No tracheal deviation present. Cardiovascular: Normal rate and intact distal pulses. Exam reveals no gallop and no friction rub. No murmur heard. Pulmonary/Chest: Effort normal and breath sounds normal. No respiratory distress. He has no wheezes. He has no rales. Abdominal: Soft. Bowel sounds are normal. He exhibits no distension. There is no tenderness. There is no rebound and no guarding. Musculoskeletal: Normal range of motion. He exhibits no edema. Neurological: He is alert and oriented to person, place, and time. No cranial nerve deficit. He exhibits normal muscle tone. + gait ataxia walks toward R, no dysmetria FNF bilaterally, nystagmus horizontal/vertical Skin: Skin is warm and dry. No erythema. Psychiatric: He has a normal mood and affect. His behavior is normal. Judgment and thought content normal. Nursing note and vitals reviewed. ED STROKE DOCUMENTATION (last 48 hours) Stroke Care Path Flowsheet Row Name 06/01/18 1107 Last Known Well Date Patient Last Known Well 06/01/18 - Time Patient Last Known Well 0000 -EH Is Date or Time of Last Known Well Unknown ? Reason Last Known Well Date/Time Not Given ? NIHSS NIHSS - Initial or Subsequent? Initial -EH NIHSS Initial - LIP ENTRY ONLY !!!!! REMEMBER TO VALIDATE DATE AND TIME !!!!! LOC 0 - alert and responsive - LOC Questions 0 - both correct - LOC Commands 0 - both correct - LOC Normal Gaze 0 - normal gaze - Visual Jackson 1 - partial hemianopia, quadrantanopia upper diminished bilaterally - Facial Palsy 0 - normal - Motor Left Arm 0 - no drift - Motor Right Arm 0 - no drift - Motor Left Leg 0 - no drift - Motor Right Leg 0 - no drift - Limb Ataxia 0 - no ataxia (or aphasic, hemiplegic) though difficulty falling towards R on gait testing - Sensory 0 - normal - Language 0 - normal - Dysarthria 0 - normal - Extinction/Neglect 0 - normal, none detected (or visual loss alone) - Initial NIHSS 1 - REQUIRED CLINICAL IMAGING INDICATORS Imaging Ordered Today: CT - Select CT: Stat CT Head;CTA Head AND Neck - Please Document REQUIRED Indications CTA Head AND Neck Indications Intra and Extracranial Vasculature Evaluation - CT Head - Stat Indications Neuro Defict > 8 Hours of Symptom Onset - Stroke Documentation Impression Clinical Impression: Stroke Type? ? User Gauthier (r) = Recorded By, (t) = Taken By, (c) = Cosigned By Initials Name Dennis Alford MD Diagnostic Testing ED Labs Ordered and Reviewed COMP METABOLIC PANEL MAGNESIUM BLD CK TOTAL AND CK-MB TROPONIN T NT PRO BNP CBC + DIFF PROTHROMBIN TIME/PT ACTIVATED PTT URINALYSIS Procedures ED Course / Clinical Impression MDM / Disposition / Plan Course: Vital signs were reviewed. Triage records were reviewed. Medical records were reviewed. Nursing notes were reviewed and incorporated. The following medications were administered: Reglan, Benadryl Patient placed on monitor ECG reviewed and interpreted as NSR @ 70 bpm no STEMI ? LVH, L axis deviation Labs reviewed and interpreted as below. Radiographs were reviewed as below. Medical Decision Making: Differential diagnosis: Migraine, tension headache, stress headache, stroke, no chest pain or trouble breathing, but plausibly could represent aneurysm issue, much less likely, electrolyte disarray, anemia, head bleed, aneurysm. AANDP: Mr. Del Cid is a pleasant 48-year-old male presenting today with strokelike symptoms, intermittently since last night. Will reassess after CT and CTA head/neck. CTA nothing acute, bilateral minimal carotid blockages, no bleed, CT chest done as h/o ascending aneurysm, will get read prior to admit to r/o MA or stroke, give ASA after. The attending who evaluated and managed this patient was Dennis Alford . Plan: The patient was admitted to Regular nursing floor. Case discussed with admitting physician, Dr. Desai. Consent: A procedure or transfusion was performed - No Dennis Alford MD SIGNATURE: MD Dennis Ram MD 06/01/18 1245 ED NOTE Observed: 06/01/2018 Status: COMPLETED Source: [place] 10:44 AM [facility] OTHER CAMPUS REPOSITORY HNO ID: [id number] Author: Diana (Rn) ALE Minor Service: (none) Author Type: Registered Nurse Type: ED Notes Filed: 06/01/2018 10:44 AM Note Text: Patient transported to [facility] scan with Tech. ED NOTE Observed: 06/01/2018 Status: COMPLETED Source: [place] 10:44 AM [facility] OTHER [facility] REPOSITORY HNO ID: [id number] Author: Diana AminRn) Iván, ALE Service: (none) Author Type: Registered Nurse Type: ED Notes Filed: 06/01/2018 10:44 AM Note Text: Patient aware that a urine specimen is needed. Urinal given. ED NOTE Observed: 06/01/2018 Status: COMPLETED Source: [place] 10:21 AM [facility] OTHER [place] REPOSITORY HNO ID: [id number] Author: Diana AminRn) Iván, ALE Service: (none) Author Type: Registered Nurse Type: ED Notes Filed: 06/01/2018 10:21 AM Note Text: Dr Alford at bedside ED NOTE Observed: 06/01/2018 Status: COMPLETED Source: [place] 10:08 AM [facility] OTHER CAMPUS REPOSITORY HNO ID: [id number] Author: Diana AminRn) ALE Minor Service: (none) Author Type: Registered Nurse Type: ED Notes Filed: 06/01/2018 10:08 AM Note Text: Labs were drawn and sent. CBC AND DIFFERENTIAL Collected: 06/01/2018 Status: F Source: [place] 10:04 AM [facility] OTHER CAMPUS REPOSITORY TYPE CODE TESTS RESULT OUT OF REFERENCE UNITS RANGE LAB WBC 3.70-11.00 k/uL WBC 6.32 LAB RBC 4.20-6.00 m/uL RBC 5.01 LAB HGB 13.0-17.0 g/dL Hemoglobin 13.5 LAB HCT 39.0-51.0 % Hematocrit 42.6 LAB MCV 80.0-100.0 fL MCV 85.0 LAB MCH 26.0-34.0 pG MCH 26.9 LAB MCHC 30.5-36.0 g/dL MCHC 31.7 LAB RDWCV 11.5-15.0 % RDW-CV 14.4 LAB PLTCT 150-400 k/uL Platelet Count 306 LAB MPV 9.0-12.7 fL MPV 9.1 LAB ANEUT % Neut% 51.8 LAB AANEUT 1.45-7.50 k/uL Abs Neut 3.27 LAB ALYMP % Lymph% 35.4 LAB AALYMP 1.00-4.00 k/uL Abs Lymph 2.24 LAB AMONO % [place]% 10.3 LAB AAMONO <0.87 k/uL Abs [place] 0.65 LAB AEOS % Eosin% 1.9 LAB AAEOS <0.46 k/uL Abs Eosin 0.12 LAB ABASO % Baso% 0.6 LAB AABASO <0.11 k/uL Abs Baso 0.04 Performed By: #### CBCDIF, CMP, MG1, PT, PTT #### [facility] [address] [place] [address] COMP METABOLIC PANEL Collected: 06/01/2018 Status: F Source: [place] 10:04 AM CLINIC OTHER CAMPUS REPOSITORY TYPE CODE TESTS RESULT OUT OF REFERENCE UNITS RANGE LAB TP 6.3-8.0 g/dL Protein, Total 6.6 LAB ALB 3.9-4.9 g/dL Albumin 3.9 LAB CA 8.5-10.2 mg/dL Calcium, Total 9.2 LAB TBIL 0.2-1.3 mg/dL Bilirubin, Total 0.3 LAB ALKP 36-108 U/L Alkaline Phosphatase 78 LAB AST 14-40 U/L AST 19 LAB GLU 74-99 mg/dL Glucose 90 Result Comment: The [place] Diabetes Association (ADA) provides guidance for cutoff values for fasting glucose and random glucose. The ADA defines fasting as no caloric intake for at least 8 hours. Fas ting plasma glucose results between 100 to 125 mg/dL indicate increased risk for diabetes (prediabetes). Fasting plasma glucose results greater than or equal to 126 mg/dL meet the criteria for diagnosis of diabetes. In the absence of unequivocal hyperglycemia, results should be confirmed by repeat testing. In a patient with classic symptoms of hyperglycemia or hyperglycemic crisis, random plasma glucose results greater than or equal to 200 mg/dL meet the criteria for diagnosis of diabetes. Reference: Standards of Medical Care in Diabetes 2016, [place] [employer] Association. Diabetes Care. 2016.39(Suppl 1). LAB BUN 9-24 mg/dL BUN 15 LAB CRET 0.73-1.22 mg/dL Creatinine 0.88 LAB NA 136-144 mmol/L Sodium 142 LAB K 3.7-5.1 mmol/L Potassium 3.7 LAB CL 97-105 mmol/L Chloride 104 LAB CO2 22-30 mmol/L CO2 28 LAB AGAP 9-18 mmol/L Anion Gap 10 LAB ALT 10-54 U/L ALT 23 LAB GFRAA eGFR- Amer. >60 LAB GFRNAA . eGFR-All Other Races >60 Result Comment: eGFR (Estimated GFR) Units of measure: mL/min/1.73 meters squared eGFR is derived from the reexpressed MDRD Study equation using the following parameters: serum creatinine, age, gender and race. The creatinine assay has been calibrated to be traceable to IDMS. An eGFR <60 mL/min/1.73m2 for >3 months is consistent with chronic kidney disease. Refer to KDOQI guidelines for clinical interpretation. In patients with unstable renal function, e.g. those with acute kidney injury, the eGFR may not accurately reflect actual GFR. Performed By: #### CBCDIF, CMP, MG1, PT, PTT #### [facility] [address] [place] [address] MAGNESIUM Collected: 06/01/2018 Status: F Source: [place] 10:04 AM CLINIC OTHER CAMPUS REPOSITORY TYPE CODE TESTS RESULT OUT OF REFERENCE UNITS RANGE LAB MG 1.7-2.3 mg/dL Magnesium 2.0 Performed By: #### CBCDIF, CMP, MG1, PT, PTT #### [facility] [address] [place] [address] PROTIME Collected: 06/01/2018 Status: F Source: [place] 10:04 AM CLINIC OTHER CAMPUS REPOSITORY TYPE CODE TESTS RESULT OUT OF RANGE REFERENCE UNITS LAB PSEC 9.7-13.0 sec PT Sec 10.3 LAB INR 0.9-1.3 PT INR 1.0 Result Comment: Vitamin K Antagonist (VKA) Therapeutic Range: INR 2 to 3 (Target INR of 2.5) Note: For patients treated with VKA drugs, such as warfarin, the [place] [employer] 2012 Guideline recommends a therapeutic INR range of 2 to 3 (target INR of 2.5). This recommendation includes high-risk patients with antiphospholipid syndrome with previous arterial or venous thromboembolism, current-generation mechanical or bioprosthetic aortic heart valve replacement. Note: Patients with mechanical aortic valve replacement and additional risk factors for thromboembolic events (atrial fibrillation, previous thromboembolism, LV dysfunction, hypercoagulable conditions) or an older generation mechanical AVR (i.e., ball in-Cage) or any mechanical MVR should have a INR therapeutic range of 2.5 to 3.5 (target INR of 3). Parish RAMIREZ, et al. Chest 2012, 141:7S-47S Amy RA, et al. [facility] 2017, 70: 252-289 Performed By: #### CBCDIF, CMP, MG1, PT, PTT #### [facility] [address] [place] [address] APTT Collected: 06/01/2018 Status: F Source: [place] 10:04 [facility] REPOSITORY TYPE CODE TESTS RESULT OUT OF RANGE REFERENCE UNITS LAB APTT 23.0-32.4 sec APTT 25.9 Result Comment: Unfractionated Heparin Therapeutic Ranges: Standard Heparin Nomogram: 53 to 78 seconds (anti-Xa level of 0.3 to 0.7 U/ml) Low Dose/ACS Nomogram: 49 to 67 seconds (anti-Xa level of 0.2 to 0.5 U/ml) Stroke Treatment Nomogram: 49 to 67 seconds (anti-Xa level of 0.2 to 0.5 U/ml) Note: The APTT therapeutic range has been determined for the current lot of laboratory APTT reagent in use throughout the [facility]. Performed By: #### CBCDIF, CMP, MG1, PT, PTT #### [facility] [address] [place] [address] TROPONIN T Collected: 06/01/2018 Status: F Source: [place] 10:04 [facility] OTHER CAMPUS REPOSITORY TYPE CODE TESTS RESULT OUT OF REFERENCE UNITS RANGE LAB TROPT 0.000-0.029 ng/mL Troponin T <0.010 Performed By: #### NARGIS #### [facility] [address] [place] [address] NT PRO BNP Collected: 06/01/2018 Status: F Source: [place] 10:04 AM [facility] OTHER [place] REPOSITORY TYPE CODE TESTS RESULT OUT OF REFERENCE UNITS RANGE LAB PBNP <125 pg/mL PRO B Natr 30 Peptide Performed By: #### NTBNP, CKCKMB #### [facility] [address] [place] [address] CK, TOTAL AND CKMB Collected: 06/01/2018 Status: F Source: [place] 10:04 [facility] REPOSITORY TYPE CODE TESTS RESULT OUT OF REFERENCE UNITS RANGE LAB CK 51-298 U/L 65 CK LAB MB <7.7 ng/mL MB 1.1 LAB CKMBRI 0.0-4.0 % CK CK MB MB % not % reported with CK <100 U/L. Performed By: #### NTBNP, CKCKMB #### [facility] [address] [place] [address] HEMOGLOBIN A1C Collected: 06/01/2018 Status: F Source: [place] 10:04 [facility] REPOSITORY TYPE CODE TESTS RESULT OUT OF REFERENCE UNITS RANGE LAB HGBA1C 4.3-5.6 % Hemoglobin A1c 5.2 LAB HBA0 mg/dL Est. Average Glucose 103 Result Comment: eAG: (Estimated average glucose) is a calculated value from HgbA1c and is industrial relations representative of the average blood glucose level in the last 2-3 month period. Performed By: #### HBA1C #### [facility] [address] [place], [place] [address] EKG Observed: 06/01/2018 Status: F Source: [place] 10:02 AM [facility] OTHER [place] REPOSITORY NAME : ATTILA DEL CID PID : [id number] : 1970 Gender : Male Race : ORD : [id number] Procedure Date : Jun 01 2018 10:02:36 Edit Date : Jun 02 2018 14:25:38 Diagnosis:NORMAL SINUS RHYTHM MODERATE VOLTAGE CRITERIA FOR LVH, MAY BE NORMAL VARIANT BORDERLINE ECG WHEN COMPARED WITH ECG OF 27-MAY-2018 16:52, NO SIGNIFICANT CHANGE WAS FOUND Confirmed by MD STROUD QARAB ([id number]) on 06/02/2018 2:25:32 PM Ventricular Rate : 70 BPM Atrial Rate : 70 BPM P-R Interval : 158 ms QRS Duration : 82 ms Q-T Interval : 398 ms QTC Calculation(Bezet) : 429 ms P Greenwood : 1 degrees R Greenwood : -3 degrees T Greenwood : -1 degrees Test Reason : Arrhythmia Location : 1 : ER 0268 Overread By : MD STROUD QARAB Edited By : MD STROUD QARAB Referred By : , Acquired by : [place] [facility] NOTE Observed: 06/01/2018 Status: COMPLETED Source: [place] 9:55 AM CLINIC OTHER CAMPUS REPOSITORY HNO ID: [id number] Author: Anais (Rn) ALE Savage Service: (none) Author Type: Registered Nurse Type: ED Notes Filed: 06/01/2018 9:56 AM Note Text: Patient presents with c/o headache that started this am 05/30, vision issues that started yesterday and states has chest pain that comes and goes that started this am DISCHARGE INSTRUCTION Observed: 05/29/2018 Status: F Source: [place] 5:57 PM [facility] REPOSITORY [facility] Medical Records Department [address] [place] [address] Discharge Instruction 05/29/181753 MR#: [id number] Acct: [id number] Name: ATTILA DEL CID Rep #: [id number] : 1970 48 From: Graham Mendoza DO PCP: Nyla Bearden MD Status: REG ER ED Disposition - Plan for ED Patient: Chief Complaint: Chest Pain Instructions: ED Chest Pain Atypical Unkn Cause Prescriptions: Oxycodone HCl/Acetaminophen [Percocet 5/325] 1 tab PO Q6H PRN PRN 3 Days #10 tab PRN Reason: Pain Referrals: Nyla Bearden MD [Primary Care Provider] - 3-5 Days What to do if you have Problems For any increased pain, shortness of breath, bleeding, nausea or vomiting, chest pain, or any unexpected problems, contact your Primary Care Provider. Call [facility] ([phone]) or report to the closest Emergency Room. Call 911 if necessary. 05/29/18 175 <Electronically signed by Graham Mendoza DO> Date Graham Mendoza DO Cosigner Signature (If Indicated): Date CC: Nyla Bearden MD EMERGENCY DEPARTMENT Observed: 05/29/2018 Status: F Source: MURRAY SUMMARY 5:54 PM [facility] REPOSITORY [facility] Medical Records Department [address] [place] [address] Emergency Department Summary 05/29/18 175 MR#: [id number] Acct: [id number] Name: ATTILA DEL CID Rep #: [id number] : 1970 48 From: Graham Mendoza DO PCP: Nyla Bearden MD Status: REG ER - ER Visit Summary Date of Service: 05/29/18 Chief Complaint: [Chest pain] History of Present Illness: The patient is a 48 M [presents the emergency department complaint of chest pain that started half an hour ago while mowing the lawn. Patient states that the pain is dull and at times sharp stabbing radiating from the center of his chest to his left shoulder and scapula. Patient has had some nausea and did vomit once. Patient states that he has had pain like this multiple times in the past. Patient tells me he had a heart catheterization 2 months ago. Patient also tells me he has an aortic aneurysm at the arch of the aorta. Patient also has a history of atrial fibrillation and is currently on Eliquis. Patient also with history of kidney stones. Patient has history of hypertension, cholesterol, and atrial fibrillation.] Patient called the squad and they gave him aspirin 1 nitro and currently rates his pain an 8 out of 10. Physical Examination: [HEENT-PERRLA, EOMI. Cranial nerves II through XII grossly intact. TMs clear. Mucous membranes moist. No adenopathy. Cardiovascular-regular rate and rhythm without murmur or ectopy Lungs-clear to auscultation, chest wall stable without crepitus or subcu emphysema Abdomen-normoactive bowel sounds, soft, nontender, no rebound or rigidity, no peritoneal signs. Extremities-intact 4, normal range of motion, normal pulses, atraumatic] Test Results: [EKG obtained on arrival showed sinus rhythm with a ventricular rate of 110 bpm with no acute ST segment changes. CBC with differential obtained was normal. Chemistries were normal. Troponin was less than 0.015. LFTs and lipase were normal. Chest x-ray showed nothing acute.] Emergency Department Course and Treatment: [I reviewed patient's heart cath from 2 months ago and it showed angiographically normal coronaries. Patient also had a CT scan of the chest in March of this year that showed an ascending aortic aneurysm of 4.[address] scan before that of the chest was on February 17 and it showed a 4.4 cm thoracic aortic aneurysm. CT scan before that was on October 25, 2017 showing a 4.4 cm aneurysm. In the last 6 months there is been no change in the size of this aneurysm. Patient also has had 3 CT scans of the abdomen and pelvis in the last 7 months. Patient is also had multiple chest x-rays.] Treatment Plan: [Patient was medicated with morphine and Zofran initially followed by a milligram of Dilaudid. At this point I do not feel any further imaging is indicated. I have concerns regarding the amount of radiation this patient is receiving an attempt to workup his frequent complaint of chest pain. Given that he has had normal heart cath 2 months ago with normal EKG and normal heart enzymes I do not feel his chest pain is cardiac in nature. Patient is on anticoagulant and do not feel his pain consistent with PE.] Disposition: [Discharged home in stable condition] Impression: [Chest pain-etiology uncertain] This note was generated with [employer] dictation software. It may contain incorrect words, spelling, and punctuation that were not noted in review of the chart prior to signing ED Disposition - Plan for ED Patient: Chief Complaint: Chest Pain Referrals: Nyla Bearden MD [Primary Care Provider] - What to do if you have Problems For any increased pain, shortness of breath, bleeding, nausea or vomiting, chest pain, or any unexpected problems, contact your Primary Care Provider. Call [facility] ([phone]) or report to the closest Emergency Room. Call 911 if necessary. 05/29/18 1754 <Electronically signed by Graham Mendoza DO> Date Graham Mendoza DO Cosigner Signature (If Indicated): Date CC: Nyla Bearden MD BASIC METABOLIC Collected: 05/29/2018 Status: F Source: DILL[place] PROFILE (BMP) 4:50 PM [facility] REPOSITORY TYPE CODE TESTS RESULT OUT OF RANGE REFERENCE UNITS LAB L501.0100 74-106 mg/dL Normal GLU 81 Result Comment: Please note revised GLUCOSE reference range effective 2017. LAB L501.1000 7-18 mg/dL Normal BUN 12 LAB L501.1100 0.70-1.30 mg/dL Normal CREAT,SERUM 0.98 Result Comment: The validity of the calculated GFR AND GFRAA in patients over 70 years has not been determined. Clinical correlation is essential. LAB L501.1110 >60 mL/min Normal EST GFR 87 Result Comment: Non- GFR Calc LAB L501.1115 >60 mL/min Normal EST GFR - AA 105 Result Comment: GFR Calc LAB L501.1255 ml/min Normal Estimated CRCL 68.19 LAB L501.1300 10-20 RATIO Normal BUN/CRE 12.3 LAB L501.2200 8.5-10 mg/dL Normal .1 CA 8.9 LAB L501.5300 136-14 mmol/L Normal 5 NA 142 LAB L501.5600 3.5-5. mmol/L Low 1 K 3.3 LAB L501.5900 98-107 mmol/L High CL 108 LAB L501.6100 21.0-3 mmol/L Normal 2.0 CO2 27.0 LAB L501.6200 5-15 Normal GAP 7 Performed By: #### L500.2500, L500.3400, L501.2450, L501.4010 #### [facility] [address] [place], [place], [address] LIVER PROFILE Collected: 05/29/2018 Status: F Source: MURRAY 4:50 PM [facility] REPOSITORY TYPE CODE TESTS RESULT OUT OF RANGE REFERENCE UNITS LAB L501.1500 6.4-8.2 g/dL Normal T PROT 7.5 LAB L501.1800 3.2-5.0 g/dL Normal ALB 3.6 LAB L501.1950 2.2-4.2 g/dL Normal GLOB 3.9 LAB L501.4100 15-37 U/L Normal AST 27 LAB L501.4305 45-117 U/L Normal ALK P 98 LAB L501.4405 16-61 U/L Normal ALT 47 LAB L501.4600 0.20-1.00 mg/dL Normal T BILI 0.50 LAB L501.4700 0.00-0.30 mg/dL Normal D BILI 0.13 Performed By: #### L500.2500, L500.3400, L501.2450, L501.4010 #### [facility] [address] [place], [place], [address] LIPASE Collected: 05/29/2018 Status: F Source: MURRAY 4:50 PM [facility] REPOSITORY TYPE CODE TESTS RESULT OUT OF RANGE REFERENCE UNITS LAB L501.2450 73-393 U/L Normal LIPASE 227 Performed By: #### L500.2500, L500.3400, L501.2450, L501.4010 #### [facility] [address] [facility] [place], [address] TROPONIN-I Collected: 05/29/2018 Status: F Source: MURRAY 4:50 PM [facility] REPOSITORY TYPE CODE TESTS RESULT OUT OF RANGE REFERENCE UNITS LAB L501.4010 <0.045 ng/mL Normal < 0.015 TROPONIN-I Result Comment: TROPONIN-I EXPECTED VALUES <0.045 Negative 0.045 - 0.590 Consistent with Cardiac Damage > OR = 0.600 Critical Value Not every elevated troponin is indicative of MA. These values should be used with clinical judgement in examining the patient's clinical picture for diagnosis. To establish a diagnosis of MA versus myocardial injury, there must be a demonstrated rise and/or fall in the troponin values, in addition to ischemic symptoms, EKG changes, new regional wall motion abnormality, and/or angiographical evidence. PLEASE NOTE: REFERENCE RANGES EDITED 18 Performed By: #### L500.2500, L500.3400, L501.2450, L501.4010 #### [facility] [place], [address] CBC W/DIFF, AUTOMATED Collected: 05/29/2018 Status: F Source: MURRAY 4:50 PM [facility] REPOSITORY TYPE CODE TESTS RESULT OUT OF RANGE REFERENCE UNITS LAB L100.1000 4.4-11.0 K/mm3 Normal WBC 7.7 LAB L100.1200 4.6-6.2 M/mm3 Normal RBC 5.09 LAB L100.1300 13.0-16.5 g/dl Normal HGB 13.6 LAB L100.1400 40-54 % Normal HCT 42.5 LAB L100.1500 80-94 fL Normal MCV 83.5 LAB L100.1600 27.0-32.0 pg Low MCH 26.7 LAB L100.1700 32-36 g/gl Normal MCHC 32.0 LAB L100.1810 11.6-14.6 % Normal RDW CV 14.2 LAB L100.1820 35.1-43.9 fl Normal RDW SD 43.5 LAB L100.1900 150-450 K/mm3 Normal PLT 315 LAB L100.2000 6.2-12.0 fl Normal MPV 8.9 LAB L100.2100 47-70 % Normal NEUT% 53.1 LAB L100.2200 19-41 % Normal LY% 35.7 LAB L100.2300 0-10 % Normal MONO% 9.0 LAB L100.2400 0-5 % Normal EO% 1.4 LAB L100.2500 0-1 % Normal BASO% 0.5 LAB L100.2550 0.0-0.9 % Normal IM GRAN % 0.300 Result Comment: IG% - Immature Granulocytes (promyelocytes, myelocytes and metamyelocytes) > 1% indicates that a LEFT SHIFT is Present. LAB L100.2620 2.0-7.7 X10 3/uL Normal Absolute Neut 4.1 LAB L100.2720 0.83-4.51 X10 3/ul Normal Absolute Lymph 2.73 Performed By: #### L100.0100 #### [facility] [address] [place], [address] CHEST 1 VIEW Observed: 05/29/2018 Status: F Source: MURRAY (PORTABLE) 4:38 PM [facility] REPOSITORY [facility] Imaging Services [address] [place] [address] Chest 1 View (Portable) MR#: [id number] Acct: [id number] Name: ATTILA DEL CID Rep #: [id number] : 1970 M 48 From: Carlos Eduardo Johnson DO PCP: Nyla Bearden MD Status: PRE ER Study: Chest 1 View (Portable) Date of Exam: 05/29/18 Exam# [id number] Ordering Dr: Graham Mendoza DO STUDY: X-RAY CHEST REASON FOR EXAM: Male, 48 years old. Chest pain. TECHNIQUE: Single AP portable view of the chest. COMPARISON: May 20, 2018. FINDINGS: Telemetry wires overlie the chest. The lungs are clear and expanded. There is no demonstrated pleural abnormality. The heart is mildly enlarged. Normal mediastinum and ruben. Normal visualized pulmonary arteries. Normal visualized aortic arch and descending thoracic aorta. The thoracic spine is obscured by the mediastinum. Normal visualized ribs, clavicles, and shoulders. There is no demonstrated abnormality of the visualized soft tissue structures of the upper abdomen. RAD/Chest 1 View (Portable) IMPRESSION: Stable cardiomegaly without acute pulmonary disease or interval change. Electronically Signed: Carlos Eduardo Johnson DO at 17:02 EDT Tel [phone], Service support , CC: Nyla Bearden MD; Graham Mendoza DO 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: Signed HIGH SENS TROPONIN T Collected: 05/27/2018 Status: F Source: [place] 5:25 PM [facility] [place] REPOSITORY TYPE CODE TESTS RESULT OUT OF REFERENCE UNITS RANGE LAB HSTN <12 ng/L High Sensitivity NARGIS <6 Result Comment: When assessing risk for acute coronary syndromes: In patients undergoing blood draw greater than or equal to 2 hours from symptom onset, with history of very low to moderate risk and non-ischemic ECG, an initial hs-Troponin T less than 12 ng/L AND a 1 hour delta hs-Troponin T less than 3 ng/L should be considered very low risk for 30 day MACE. Performed By: #### HSTNT #### [facility] [address] [phone] ED NOTE Observed: 05/27/2018 Status: COMPLETED Source: [place] 5:16 PM [facility] REPOSITORY HNO ID: [id number] Author: Devorah (Rn) ALE Delacruz Service: (none) Author Type: Registered Nurse Type: ED Notes Filed: 05/27/2018 5:16 PM Note Text: Patient returned to the Emergency Department. CT FLANK WO IVCON Observed: 05/27/2018 Status: F Source: [place] 5:11 PM [facility] REPOSITORY * * *Final Report* * * DATE OF EXAM: May 27 2018 5:11PM [facility] 0529 - CT FLANK WO IVCON / PROCEDURE REASON: Flank pain, stone disease suspected * * * * Physician Interpretation * * * * EXAMINATION: CT ABDOMEN AND PELVIS WITHOUT IV CONTRAST (Renal stone protocol) CLINICAL HISTORY: Unspecified flank pain. Hematuria. TECHNIQUE: Non-contrast imaging of the abdomen and pelvis was performed through the urinary tract. Study performed without intravenous or oral contrast to evaluate for urinary tract calculus. MQ: [id number] Contrast: IV contrast: None Oral contrast: None CT Radiation dose: Integrated dose-length product (DLP) for this visit = 877 mGy*cm. CT Dose Reduction Employed: Automated exposure control (AEC) COMPARISON: 05/21/2018 RESULT: Limitations: Unenhanced imaging is limited for the evaluation of some renal and other intra-abdominal and pelvic pathology. Urinary Tract: Right kidney and ureter: Stable 4 mm nonobstructing right lower pole calculus. No ureterolithiasis or hydronephrosis. No finding to suggest cyst or mass in the unenhanced kidney. Left kidney and ureter: No calculus. No hydronephrosis. No finding to suggest cyst or mass in the unenhanced kidney. Bladder: No calculus. Abdomen and Pelvis: Liver: Unremarkable. Biliary: The gallbladder is unremarkable. Spleen: No splenomegaly. Pancreas: Unremarkable. Adrenals: Normal. GI Tract: No bowel dilation. Normal appendix. Lymph Nodes: No lymphadenopathy. Mesentery/peritoneum: No ascites. Vasculature: No abdominal aortic or iliac artery aneurysm. Pelvis: No mass or ascites. Small fat-containing inguinal hernias. Bones/Soft Tissues: No acute abnormality. Stable L4-L5 fixation hardware. Lower thorax: Mild stable bibasilar scarring/atelectasis. IMPRESSION: STABLE RIGHT-SIDED NEPHROLITHIASIS WITHOUT HYDRONEPHROSIS. 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: NEAL Transcribe Date/Time: May 27 2018 5:12P Dictated by : JENA BRAXTON MD This examination was interpreted and the report reviewed and electronically signed by: JENA BRAXTON MD on May 27 2018 5:16PM EST [id number] ED NOTE Observed: 05/27/2018 Status: COMPLETED Source: [place] 5:06 PM [facility] REPOSITORY HNO ID: [id number] Author: Devorah AminRn) ALE Delacruz Service: (none) Author Type: Registered Nurse Type: ED Notes Filed: 05/27/2018 5:06 PM Note Text: Patient transported to ar with Tech. EKG Observed: 05/27/2018 Status: F Source: [place] 4:52 PM [facility] OTHER CAMPUS REPOSITORY NAME : ATTILA DEL CID PID : [id number] : 1970 Gender : Male Race : ORD : [id number] Procedure Date : May 27 2018 16:52:59 Edit Date : May 29 2018 22:09:29 Diagnosis:NORMAL SINUS RHYTHM MINIMAL VOLTAGE CRITERIA FOR LVH, MAY BE NORMAL VARIANT BORDERLINE ECG WHEN COMPARED WITH ECG OF 13-MAY-2018 20:15, NO SIGNIFICANT CHANGE WAS FOUND Confirmed by Jona CHARLES, AN-CHIARA ([id number]) on 05/29/2018 10:09:28 PM Ventricular Rate : 74 BPM Atrial Rate : 74 BPM P-R Interval : 140 ms QRS Duration : 84 ms Q-T Interval : 392 ms QTC Calculation(Bezet) : 435 ms P Greenwood : -5 degrees R [place]wood : -1 degrees T [place] : -4 degrees Test Reason : Chest Pain Location : 1 : ER ED2 Overread By : Jona CHARLES AN-JEN Edited By : Jona CHARLES AN-JEN Referred By : , Acquired by : , ED NOTE Observed: 05/27/2018 Status: COMPLETED Source: [place] 4:48 PM [facility] OTHER [facility] REPOSITORY HNO ID: [id number] Author: Devorah (Rn) ALE Delacruz Service: (none) Author Type: Registered Nurse Type: ED Notes Filed: 05/27/2018 4:56 PM Note Text: Pt called out, pt states abd pain is back 8/10, pt reports chest pain that is sharp started 20 mins ago, pt rates it 7/10. Vs stable, [facility] made aware, per [facility] do ekg. monitoring ED PROV NOTE Observed: 05/27/2018 Status: COMPLETED Source: [place] 4:31 PM [facility] [place] REPOSITORY HNO ID: [id number] Author: Isma Jenkins (Pa) Service: Emergency Medicine Author Type: Physician Filler Machine Operator Type: ED Provider Notes Filed: 05/27/2018 6:08 PM Note Text: ED Provider Note Patient Name: Attila Del Cid SERVICE DATE: 05/27/18 History Patient presents with: Flank Pain 48 year old female with a past medical history of kidney stones, presents to the emergency department today with chief complaint of right flank pain over the last 2 days. Patient states he has had a history of kidney stones and this feels very similar to it. He describes the pain as a sharp pain in his right flank. He Rates the pain as 8 out of 10. He ran out of his Percocet yesterday. He also complaining nausea and vomiting. Denies any fever or chills, denies any urinary symptoms, denies any blood in the urine or stool. Denies any chest pain or shortness of breath. PAST MEDICAL HISTORY Diagnosis Date - Acute right flank pain 03/25/2018 - Aneurysm of ascending aorta (HCC) - Aortic aneurysm (HCC) - Arthritis - Atrial fibrillation (HCC) - Calculi, ureter - Calculus of kidney - Hematuria - Hypertension - Kidney stones 03/25/2018 - Pneumonia - Psychiatric disorder anxiety PAST SURGICAL HISTORY Procedure Laterality Date - BACK SURGERY HX 2015 FUSION, L4-L5 - COLONOSCOP W/ OR W/O BRSH SPEC 05/14/2014 Colonoscopy - EGD W/O OR W/BRUSH/WASH 05/14/2014 EGD - FRAGMENTING/KIDNEY STONE Right 2017 Lithotripsy - KNEE SURGERY HX Right 03/2017 patella replacement - [place] ANESTH,KNEE JOINT; NOS 12/2017 Left FAMILY HISTORY Problem Relation Age of Onset - Diabetes Mother - Colon Cancer Mother - Heart disease Mother - Hypertension Mother - Diabetes Sister - Skin Cancer Father Social History Social History Main Topics - Smoking status: Never Smoker - Smokeless tobacco: Never Used - Alcohol use No - Drug use: No - Sexual activity: Not on file ALLERGIES Allergen Reactions - Celebrex [Celecoxib] Vomiting Nausea - Clonidine Rash - Fentanyl GI Upset - Levofloxacin Rash pt reports to [facility] PT 04-13-2017 - Penicillin G Rash - Relpax [Eletriptan * Vomiting Nausea - Topamax [Topiramate] Vomiting - Vicodin [Hydrocodon* Vomiting - Wellbutrin [Bupropi* Vomiting Nausea Review of Systems Constitutional: Negative for chills and fever. HENT: Negative for congestion, drooling, ear pain, mouth sores, sinus pressure, sore throat, tinnitus and trouble swallowing. Eyes: Negative for photophobia and visual disturbance. Respiratory: Negative for cough, chest tightness, shortness of breath and wheezing. Cardiovascular: Negative for chest pain and palpitations. Gastrointestinal: Negative for abdominal distention, anal bleeding, constipation, nausea and vomiting. Genitourinary: Positive for flank pain. Negative for dysuria and hematuria. Musculoskeletal: Negative for arthralgias, gait problem, neck pain and neck stiffness. Skin: Negative for color change. Neurological: Negative for dizziness, seizures and numbness. Psychiatric/Behavioral: Negative for agitation and confusion. The patient is not nervous/anxious. Physical Exam BP 121/84 Pulse 77 Temp 97.6 Resp 16 Ht 5' 11 (1.80m) Wt 240 lb (108.9kg) SpO2 99% BMI 33.49 kg/(m2). Physical Exam Constitutional: He is oriented to person, place, and time. He appears well-developed and well-nourished. HENT: Head: Normocephalic and atraumatic. Head is without raccoon's eyes and without Green's sign. Right Ear: Hearing normal. Left Ear: Hearing normal. Nose: Right sinus exhibits no maxillary sinus tenderness and no frontal sinus tenderness. Left sinus exhibits no maxillary sinus tenderness and no frontal sinus tenderness. Eyes: Conjunctivae and EOM are normal. Neck: Normal range of motion. Neck supple. Cardiovascular: Normal rate. Pulmonary/Chest: Effort normal. Abdominal: Soft. There is tenderness. Abdomen soft. Bowel sounds active no 4 quadrants. Tender palpation or right flank. No guarding on exam, no Mckee's or McBurney's point, no mass or hernia. Positive CVA tenderness over the right flank. Musculoskeletal: Normal range of motion. No midline tenderness, no echymosis. FROM with both lower extremeties. Distal pulses intact. Strength 5/5 with both lower extremities. Sensation intact with both lower extremities. Neurological: He is alert and oriented to person, place, and time. He displays no atrophy and no tremor. He displays a negative Romberg sign. He displays no seizure activity. Gait normal. Skin: Skin is warm and dry. Psychiatric: He has a normal mood and affect. His behavior is normal. Diagnostic Testing ED Labs Ordered and Reviewed COMP METABOLIC PANEL - Abnormal; Notable for the following: Result Value Ref Range AST 45 (*) 14 - 40 U/L All other components within normal limits CBC + DIFF - Abnormal; Notable for the following: Abs [place] 0.92 (*) <0.87 k/uL All other components within normal limits MAGNESIUM BLD LIPASE BLD URINALYSIS HIGH SENSITIVITY TROPONIN T HIGH SENSITIVITY TROPONIN T CT FLANK WO IVCON Final Result IMPRESSION: STABLE RIGHT-SIDED NEPHROLITHIASIS WITHOUT HYDRONEPHROSIS. 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: PSCTrey Transcribe Date/Time: May 27 2018 5:12P Dictated by : JENA BRAXTON MD This examination was interpreted and the report reviewed and electronically signed by: JENA BRAXTON MD on May 27 2018 5:16PM EST Results for orders placed or performed during the hospital encounter of 05/27/18 MAGNESIUM BLD Result Value Ref Range Magnesium 1.9 1.7 - 2.3 mg/dL COMP METABOLIC PANEL Result Value Ref Range Protein, Total 7.5 6.3 - 8.0 g/dL Albumin 4.2 3.9 - 4.9 g/dL Calcium 9.3 8.5 - 10.2 mg/dL Bilirubin, Total 0.4 0.2 - 1.3 mg/dL Alkaline Phosphatase 101 36 - 108 U/L AST 45 (H) 14 - 40 U/L Glucose 86 74 - 99 mg/dL BUN 15 9 - 24 mg/dL Creatinine 0.86 0.73 - 1.22 mg/dL Sodium 139 136 - 144 mmol/L Potassium 3.7 3.7 - 5.1 mmol/L Chloride 100 97 - 105 mmol/L CO2 26 22 - 30 mmol/L Anion Gap 13 9 - 18 mmol/L ALT 48 10 - 54 U/L eGFR- >60 eGFR-All Other Races >60 . LIPASE BLD Result Value Ref Range Lipase 53 16 - 61 U/L CBC + DIFF Result Value Ref Range WBC 8.52 3.70 - 11.00 k/uL RBC 5.49 4.20 - 6.00 m/uL Hemoglobin 14.9 13.0 - 17.0 g/dL Hematocrit 45.8 39.0 - 51.0 % MCV 83.4 80.0 - 100.0 fL MCH 27.1 26.0 - 34.0 pG MCHC 32.5 30.5 - 36.0 g/dL RDW-CV 14.7 11.5 - 15.0 % Platelet Count 391 150 - 400 k/uL MPV 9.0 9.0 - 12.7 fL Neut% 61.6 % Abs Neut (ANC) 5.25 1.45 - 7.50 k/uL Lymph% 25.8 % Abs Lymph 2.20 1.00 - 4.00 k/uL [place]% 10.8 % Abs [place] 0.92 (H) <0.87 k/uL Eosin% 1.3 % Abs Eosin 0.11 <0.46 k/uL Baso% 0.5 % Abs Baso 0.04 <0.11 k/uL URINALYSIS Result Value Ref Range Color Yellow Yellow Appearance (U) Clear Clear Glucose, Urine Negative Negative mg/dL Bilirubin, Urine Negative Negative Ketones, Urine Negative Negative Specific [place], Ur 1.015 1.001 - 1.029 Hemoglobin/Blood,Ur Negative Negative pH, Urine 7.0 5.0 - 8.0 Protein, Urine Negative Negative mg/dL Urobilinogen 1.0 0.2 - 1.0 Nitrites Negative Negative Leukest Negative Negative HIGH SENSITIVITY TROPONIN T Result Value Ref Range NARGIS High Sensitivity <6 <12 ng/L HIGH SENSITIVITY TROPONIN T Result Value Ref Range NARGIS High Sensitivity <6 <12 ng/L Procedures ED Course / Clinical Impression Clinical Impressions as of May 27 1805 Right flank pain (R10.9) Right flank pain (primary encounter diagnosis) Comment: acute Plan: Dc see pcp percocet, zofran, rest, return to ed if sx worsen MDM / Disposition / Plan The medical record is reviewed.Triage note is reviewed and incorporated. The nursing note is reviewed and consistent with patient's history and physical exam findings. The vital signs were reviewed the the vital signs are : BP 130/90 Pulse (!) 99 Temp 36.4 ?C (97.6 ?F) Resp 18 Ht 180.3 cm (5' 11) Wt 108.9 kg (240 lb) SpO2 99% BMI 33.47 kg/m? CT directly visualized and independently interpreted by me as as well as radiologist showed : Stable right sided nephrolithiasis without hydro MDM: This is a well-appearing male with a pmh of kidney stones who presents to the ED with a chief complaint of right flank pain who is, afebrile , hemodynamically stable, in no acute distress patient whose symptoms are controlled in the ED with morphine . Based on patient's pmh, chief complaint and physical exam findings, differential diagnoses include kidney stone vs uti/pyelo, vs acute abdomen, vs torsion Vs pancreatitis. Labs and imaging studies reveal cmp and lipase within normal limits , cbc and ua within normal limits , high sensitivity trop within normal limits , repeat high sensitivity trop of 6 Based on patient's physical exam findings, clinical picture, lab results and imaging studies that were performed here today in the ED, at this time, the following differential diagnoses such as acute abdomen is less likely due to unremarkable ct. The following differential diagnosis such as uti/pyelo is less likely due to unremarkable ua.The following differential diagnosis such as torsion is less likely due to unremarkable exam.The following differential diagnosis such as pancreatitis is less likely due to unremarkable lipase Patient had chest pain while here in the Ed. EKG done that showed sinus rhythm with lvh, rate of 74, no STEMI. The patient has remained hemodynamically stable throughout the entire ED visit and is without objective evidence for acute process requiring urgent intervention or hospitalization. The patient and/or family had all the tests and diagnosis explained to them and were given both verbal and written discharge instructions. I answered the patient's question as well as family to the best of my ability. The patient is stable for discharge, and pt is instructed to follow up with pcp and educated to return to ed if sx worsen or any new symptoms. Pt agreeable with plan. At this time, based on the patient's history, physical exam findings, lab results and clinical picture , the most likely diagnosis is right flank pain Pt educated on the most common causes of Right flank pain Pt was sent home with prescription of zofran Pt instructed to follow up with PCP in 1-2 days Discharge care instructions, medications, follow up instructions, and reasons to return to the ED immediately, such as worsening of symptoms or any new symptoms, were provided verbally and in writing to patient (patient guardian / industrial relations representative), who verbalized understanding. This note was partially generated using [employer] voice recognition system, and there may be some incorrect words, spellings, and punctuation that were not noted in checking the note before saving The patient was DISCHARGED: Counseled patient and family regarding suspected diagnosis AND need for follow-up. Discharged home with verbal and written instructions. They were instructed to return as needed for persistent or worsening symptoms or any new concerns. Condition at time of disposition: stable SIGNATURE: KEYLA Gagnon) Alice 05/27/18 1805 Isma Jenkins (Pa) 05/27/18 1808 CBC AND DIFFERENTIAL Collected: 05/27/2018 Status: F Source: [place] 3:50 PM [facility] OTHER CAMPUS REPOSITORY TYPE CODE TESTS RESULT OUT OF REFERENCE UNITS RANGE LAB WBC 3.70-11.00 k/uL WBC 8.52 LAB RBC 4.20-6.00 m/uL RBC 5.49 LAB HGB 13.0-17.0 g/dL Hemoglobin 14.9 LAB HCT 39.0-51.0 % Hematocrit 45.8 LAB MCV 80.0-100.0 fL MCV 83.4 LAB MCH 26.0-34.0 pG MCH 27.1 LAB MCHC 30.5-36.0 g/dL MCHC 32.5 LAB RDWCV 11.5-15.0 % RDW-CV 14.7 LAB PLTCT 150-400 k/uL Platelet Count 391 LAB MPV 9.0-12.7 fL MPV 9.0 LAB ANEUT % Neut% 61.6 LAB AANEUT 1.45-7.50 k/uL Abs Neut 5.25 LAB ALYMP % Lymph% 25.8 LAB AALYMP 1.00-4.00 k/uL Abs Lymph 2.20 LAB AMONO % [place]% 10.8 LAB AAMONO <0.87 k/uL Abs [place] High 0.92 LAB AEOS % Eosin% 1.3 LAB AAEOS <0.46 k/uL Abs Eosin 0.11 LAB ABASO % Baso% 0.5 LAB AABASO <0.11 k/uL Abs Baso 0.04 Performed By: #### CBCDIF, CMP, LIPA, MG1 #### [facility] [address] [facility] [phone] COMP METABOLIC PANEL Collected: 05/27/2018 Status: F Source: [place] 3:50 PM CLINIC OTHER CAMPUS REPOSITORY TYPE CODE TESTS RESULT OUT OF REFERENCE UNITS RANGE LAB TP 6.3-8.0 g/dL Protein, Total 7.5 LAB ALB 3.9-4.9 g/dL Albumin 4.2 LAB CA 8.5-10.2 mg/dL Calcium, Total 9.3 LAB TBIL 0.2-1.3 mg/dL Bilirubin, Total 0.4 LAB ALKP 36-108 U/L Alkaline Phosphatase 101 LAB AST 14-40 U/L AST High 45 LAB GLU 74-99 mg/dL Glucose 86 Result Comment: The [place] Diabetes Association (ADA) provides guidance for cutoff values for fasting glucose and random glucose. The ADA defines fasting as no caloric intake for at least 8 hours. Fas ting plasma glucose results between 100 to 125 mg/dL indicate increased risk for diabetes (prediabetes). Fasting plasma glucose results greater than or equal to 126 mg/dL meet the criteria for diagnosis of diabetes. In the absence of unequivocal hyperglycemia, results should be confirmed by repeat testing. In a patient with classic symptoms of hyperglycemia or hyperglycemic crisis, random plasma glucose results greater than or equal to 200 mg/dL meet the criteria for diagnosis of diabetes. Reference: Standards of Medical Care in Diabetes 2016, [place] Diabetes Association. Diabetes Care. 2016.39(Suppl 1). LAB BUN 9-24 mg/dL BUN 15 LAB CRET 0.73-1.22 mg/dL Creatinine 0.86 LAB NA 136-144 mmol/L Sodium 139 LAB K 3.7-5.1 mmol/L Potassium 3.7 LAB CL 97-105 mmol/L Chloride 100 LAB CO2 22-30 mmol/L CO2 26 LAB AGAP 9-18 mmol/L Anion Gap 13 LAB ALT 10-54 U/L ALT 48 LAB GFRAA eGFR- Amer. >60 LAB GFRNAA . eGFR-All Other Races >60 Result Comment: eGFR (Estimated GFR) Units of measure: mL/min/1.73 meters squared eGFR is derived from the reexpressed MDRD Study equation using the following parameters: serum creatinine, age, gender and race. The creatinine assay has been calibrated to be traceable to IDMS. An eGFR <60 mL/min/1.73m2 for >3 months is consistent with chronic kidney disease. Refer to KDOQI guidelines for clinical interpretation. In patients with unstable renal function, e.g. those with acute kidney injury, the eGFR may not accurately reflect actual GFR. Performed By: #### CBCDIF, CMP, LIPA, MG1 #### [facility] [address] [place], [place] [phone] LIPASE Collected: 05/27/2018 Status: F Source: [place] 3:50 PM [facility] OTHER CAMPUS REPOSITORY TYPE CODE TESTS RESULT OUT OF REFERENCE UNITS RANGE LAB LIPA 16-61 U/L Lipase 53 Performed By: #### CBCDIF, CMP, LIPA, MG1 #### [facility] [address] [place], [place] [phone] MAGNESIUM Collected: 05/27/2018 Status: F Source: [place] 3:50 PM [facility] OTHER [facility] REPOSITORY TYPE CODE TESTS RESULT OUT OF REFERENCE UNITS RANGE LAB MG 1.7-2.3 mg/dL Magnesium 1.9 Performed By: #### CBCDIF, CMP, LIPA, MG1 #### [facility] [address] [place], [place] [phone] URINALYSIS Collected: 05/27/2018 Status: F Source: [place] 3:50 PM [facility] OTHER [place] REPOSITORY TYPE CODE TESTS RESULT OUT OF REFERENCE UNITS RANGE LAB UCOL Yellow Color Yellow LAB [facility] Clear Clarity Clear LAB UGLUC Negative mg/dL Glucose, Urine Negative LAB UBIL Negative Bilirubin, Urine Negative LAB UKET Negative Ketones, Urine Negative LAB USPG 1.001-1.029 Specific [place], Ur 1.015 LAB UHGB Negative Hemoglobin/Blood, Negative Ur LAB UPH 5.0-8.0 pH 7.0 LAB UPROT Negative mg/dL Protein, Urine Negative LAB UUROB 0.2-1.0 Urobilinogen 1.0 LAB UNITR Negative Nitrites Negative LAB ULKEST Negative Leukest Negative Performed By: #### UA #### [facility] [address] [facility] [phone] HIGH SENS TROPONIN T Collected: 05/27/2018 Status: F Source: [place] 3:50 PM [facility] REPOSITORY TYPE CODE TESTS RESULT OUT OF REFERENCE UNITS RANGE LAB HSTN <12 ng/L High Sensitivity NARGIS <6 Result Comment: When assessing risk for acute coronary syndromes: In patients undergoing blood draw greater than or equal to 2 hours from symptom onset, with history of very low to moderate risk and non-ischemic ECG, an initial hs-Troponin T less than 12 ng/L AND a 1 hour delta hs-Troponin T less than 3 ng/L should be considered very low risk for 30 day MACE. Performed By: #### HSTNT #### [facility] [address] [facility] [phone] ED NOTE Observed: 05/27/2018 Status: COMPLETED Source: [place] 3:25 PM [facility] REPOSITORY HNO ID: [id number] Author: Diana (Rn) ALE Minor Service: (none) Author Type: Registered Nurse Type: ED Notes Filed: 05/27/2018 3:26 PM Note Text: Right flank pain started last evening, hx of multiple kidney stones. INTERNAL MEDICINE Observed: 05/23/2018 Status: F Source: [place] OFFICE VISIT 1:32 PM [facility] REPOSITORY [facility] [address] [place] [address] [place] [address] OFFICE VISIT Date of Service: 05/20/18 MR#: [id number] Acct: [id number] Name: ATTILA DEL CID Rep #: [id number] : 1970 Provider: Nyla Bearden MD Age/Sex: 48/M Location: [facility] Status: Signed Intake Vital Signs05/20/18 Height 5 ft 11 in 05/20/18 Weight: 237 lb 05/20/18 Body Mass Index (BMI) 33.0 05/20/18 Blood Pressure 132/95 Intake Visit Reasons: 1 M FU Chief Complaint: 1 mo FU AND Post Hosp check Is patient in pain?: Yes (chest pain) Pain scale (1-10): 7 Allergies clonidine Allergy (Intermediate, Verified 05/20/18 10:17) rash levofloxacin [From Levaquin] Allergy (Verified 05/20/18 10:17) Rash Penicillins Allergy (Verified 05/20/18 10:17) Hives bupropion Adverse Reaction (Intermediate, Verified 05/20/18 10:17) vomiting celecoxib [From Celebrex] Adverse Reaction (Intermediate, Verified 05/20/18 10:17) vomiting eletriptan Adverse Reaction (Intermediate, Verified 05/20/18 10:17) Vomiting topiramate [From Topamax] Adverse Reaction (Intermediate, Verified 05/20/18 10:17) vomiting hydrocodone bitartrate [From Vicodin] Adverse Reaction (Verified 05/20/18 10:17) Nausea Medications Pantoprazole Sodium [Protonix] 40 mg PO DAILY 04/22/16 [History Confirmed 05/20/18] Albuterol Inhaler [Ventolin Hfa] 1 - 2 puff INHALATION Q4H PRN PRN #1 inhaler 07/15/17 [Rx Confirmed 05/20/18] Apixaban [Eliquis] 5 mg PO BID 09/21/17 [History Confirmed 05/20/18] meclizine 12.5 mg tablet 12.5 mg PO QODAY PRN #30 tab 01/14/18 [Rx Confirmed 05/20/18] amlodipine 5 mg tablet 5 mg PO DAILY #90 tab 02/26/18 [Rx Confirmed 05/20/18] Aspirin [Aspir-Low] 81 mg PO QDAY 04/09/18 [History Confirmed 05/20/18] lisinopril 20 mg tablet 20 mg PO BID #60 tab 04/18/18 [Rx Confirmed 05/20/18] atorvastatin 20 mg tablet 20 mg PO QDAY #90 tab 04/28/18 [Rx Confirmed 05/20/18] escitalopram 10 mg tablet 15 mg PO QDAY #90 tab 04/28/18 [Rx Confirmed 05/20/18] gabapentin 100 mg capsule 100 mg PO QHS #90 cap 05/01/18 [Rx Confirmed 05/20/18] Sotalol Hydrochloride [Betapace (Beta Carolee)] 120 mg PO BID #90 tab 05/18/18 [Rx Confirmed 05/20/18] PFSH Medical History SVT (supraventricular tachycardia) (Chronic) LORETTA (obstructive sleep apnea) (Chronic) Atherosclerotic heart disease of [place] coronary artery without angina pectoris (Chronic) Nephrolithiasis (Chronic) HTN (hypertension) (Chronic) Anxiety (Chronic) PAF (paroxysmal atrial fibrillation) (Chronic) GERD (gastroesophageal reflux disease) (Chronic) Obesity (BMI 30-39.9) (Chronic) BPPV (benign paroxysmal positional vertigo) (Chronic) HLD (hyperlipidemia) (Chronic) Thoracic aortic aneurysm without rupture (Chronic) Surgical History History of left heart catheterization (Chronic) History of cardiac radiofrequency ablation (Resolved) H/O arthroscopic knee surgery (Resolved) History of back surgery (Resolved) History of right knee surgery (Resolved) Family History Brother Hypertension Mother Heart disease Colon cancer Sister Diabetes Sister Diabetes Sister Diabetes Social History Smoking Status: Never smoker alcohol intake: never substance use type: does not use caffeine: No what type of physical activity do you participate in: walking frequency: 1-2 times per week duration: 15-30 minutes/day seatbelt use: always do you feel safe at home: Yes HPI HPI Chief Complaint: 1 mo FU AND Post Hosp check Details: ATTILA DEL CID, is a 48yo M who presents to the office today for follow-up status post recent hospital admission again for chest pain. Investigations done during this hospitalization were without any significant abnormality. He was switched to sotalol for possibly better control of his atrial fibrillation. He however reports continued episodes with about 2 episodes this morning associated with chest pain. Chest pain typically resolves after presumed episodes of A. fib. ROS Const Constitutional: No chills, fatigue, fever(s), frequent falls, malaise, weakness, sleep problems or change in appetite Eyes Eyes: No blurry vision, change in vision, double vision, discharge or visual disturbances ENT ENT: No abnormal hearing, ear pain, ear pressure, tinnitus or dizziness/vertigo Resp Respiratory: Positive for shortness of breath; no cough or wheezing Cardio Cardiology: Positive for shortness of breath, palpitations and fast heart rate; no chest pain with exertion, dyspnea on exertion, generalized swelling, irregular heart rhythm, lightheadedness or orthopnea Gastro GI: No abdominal pain, change in bowel habits, constipation, diarrhea, nausea/dyspepsia or vomiting Genitourinary Male: No difficulty urinating, burning urination, painful urination, urinary incontinence, urinary frequency, urinary urgency, urinary hesitancy, urinary retention, blood in urine, Frequent nighttime urination/ nocturia, sexual problems, testicle lump or testicle pain Musc Musculoskeletal: No joint pain, back pain, joint swelling, limited range of motion, numbness or tingling Skin Skin: No change in skin color, itching, rash or wounds Breast Breast: No breast lump or breast pain Neuro Neurology: No frequent falls, weakness, abnormal hearing, numbness, tingling, unsteady gait/balance, dizziness, loss of vision, memory loss or visual disturbances Psych Psychiatric: No memory loss, No anxiety, No change in appetite, No depression, No Thoughts of harming yourself/Others Endo Endocrine: No fatigue, heat intolerance, increased thirst/drinking, increased hunger or increased urination Aller/Imm Allergy/Immunologic: No wheezing, itchy eyes or seasonal allergy symptoms Matias/Lymp Hematologic/Lymphatic: No easy bleeding, easy bruising or enlarged lymph nodes Exam Const General: cooperative, no acute distress Orientation: alert, awake, oriented x3 [facility] Head: atraumatic, normocephalic Ears: hearing grossly normal bilaterally Resp Effort AND Inspection: normal respiratory effort, able to speak in complete sentences Auscultation: Bilateral: Clear to Auscultation Cardio Rate: regular rate Rhythm: regular rhythm Heart Sounds: S1 normal, S2 normal GI Palpation: soft, no hepatosplenomegaly Neuro General: alert, awake, oriented x3, moves all extremities, CN's II-XI intact bilaterally Extrem General: no clubbing, cyanosis or edema Psych Appearance: grossly normal Mood: congruent mood Affect: normal affect Assessment AND Plan 1. Atrial fibrillation and flutter I48.91; I48.92 Plan Chronic. Associated with chest pain. Had recent invasive and noninvasive workup without any significant abnormalities. Has a follow-up with his public information coordinator and [facility]. He was advised to keep this. Also advised to continue follow-up with cardiology. Relaxation techniques discussed. Follow-up in 1 month 2. Anxiety F41.9 Plan Patient states that this is well controlled on Lexapro. Relaxation techniques as above. Continue current medication 3. LORETTA (obstructive sleep apnea) G47.33 Plan Stable. He reports compliance with his CPAP. Continue current plan. This note was generated with [employer]ation software. It may contain incorrect words, spelling, and punctuation that were not noted in checking the note before signing. Plan Detail Other Medications Discontinued: Coding Level of Care Code Off vis,est,level 3 Diagnoses Atrial fibrillation and flutter I48.91; I48.92 Anxiety F41.9 LORETTA (obstructive sleep apnea) G47.33 05/23/18 1332 <Electronically signed by Nyla Bearden MD> Date Nyla Bearden MD Cosigner Signature: Date (if applicable) CC: 12 LEAD ELECTROCARDIOGRAM Observed: 05/23/2018 Status: F Source: [place] 8:26 AM [facility] REPOSITORY [facility] Cardiovascular Services [address] [place] [address] 12 Lead EKG 05/17/18 0540 MR#: [id number] Acct: [id number] Name: LUNADOLORESATTILA Rep #: [id number] : 1970 48 From: Asael Hale MD Attending Dr: Boogie Alberto Status: DIS IN Ordering Dr: Asael Hale MD Date: 05/16/18 Location: [facility] Sex: M C Admitted: 05/16/18 Test Reason : AM EKG Blood Pressure : / mmHG Vent. Rate : 064 BPM Atrial Rate : 064 BPM P-R Int : 174 ms QRS Dur : 092 ms QT Int : 428 ms P-R-T Axes : 005 022 020 degrees QTc Int : 441 ms Normal sinus rhythm Normal ECG Confirmed by ASAEL HALE MD ([id number]), dictionary editor RICCO LEWIS ([id number]) on 05/23/2018 8:25:29 AM Referred By: MARBELLA Confirmed By:ASAEL HALE MD 05/23/18824 Date Asael Hale MD CC: Nyla Bearden MD; Boogie Alberto; Asael Hale MD Signed 12 LEAD ELECTROCARDIOGRAM Observed: 05/23/2018 Status: F Source: [place] 8:26 AM [facility] Cardiovascular Services [address] [place] [address] 12 Lead EKG 05/16/18 2303 MR#: [id number] Acct: [id number] Name: ATTILA DEL CID Rep #: [id number] : 1970 48 From: Asael Hale MD Attending Dr: Boogie Alberto Status: DIS IN Ordering Dr: Asael Hale MD Date: 05/16/18 Location: [facility] Sex: M C Admitted: 05/16/18 Test Reason : 1 HR AFTER MED Blood Pressure : / mmHG Vent. Rate : 066 BPM Atrial Rate : 066 BPM P-R Int : 164 ms QRS Dur : 090 ms QT Int : 410 ms P-R-T Axes : -06 012 023 degrees QTc Int : 429 ms Normal sinus rhythm Normal ECG Confirmed by ASAEL HALE MD ([id number]), dictionary editor RICCO LEWIS ([id number]) on 05/23/2018 8:26:27 AM Referred By: DR FITZPATRICK Confirmed By:ASAEL HALE MD 05/23/18825 Date Asael Hale MD CC: Nyla Bearden MD; Boogie Alberto; Asael Hale MD Signed 12 LEAD ELECTROCARDIOGRAM Observed: 05/23/2018 Status: F Source: [place] 8:25 AM [facility] REPOSITORY [facility] Cardiovascular Services [address] [place] [address] 12 Lead EKG 05/17/18 1025 MR#: [id number] Acct: [id number] Name: ATTILA DEL CID Rep #: [id number] : 1970 48 From: Asael Hale MD Attending Dr: Boogie Alberto Status: DIS IN Ordering Dr: Asael Hale MD Date: 05/17/18 Location: [facility] Sex: M C Admitted: 05/16/18 Test Reason : MED Blood Pressure : / mmHG Vent. Rate : 070 BPM Atrial Rate : 070 BPM P-R Int : 168 ms QRS Dur : 092 ms QT Int : 406 ms P-R-T Axes : 008 012 009 degrees QTc Int : 438 ms Normal sinus rhythm Normal ECG Confirmed by ALEXIA CONNOR, ASAEL ([id number]), dictionary editor RICCO LEWIS ([id number]) on 05/23/2018 8:24:47 AM Referred By: ALEXIA Confirmed By:ASAEL HALE MD 05/23/18 0824 Date Asael Hale MD CC: Nyla Bearden MD; Boogie Hale MD Signed 12 LEAD ELECTROCARDIOGRAM Observed: 05/23/2018 Status: F Source: [place] 8:22 AM [facility] REPOSITORY [facility] Cardiovascular Services [address] [place] [address] 12 Lead EKG 05/17/18 2219 MR#: [id number] Acct: [id number] Name: ATTILA DEL CID Rep #: [id number] : 1970 48 From: Asael Hale MD Attending Dr: Boogie Alberto Status: DIS IN Ordering Dr: Asael Hale MD Date: 05/17/18 Location: [facility] Sex: M C Admitted: 05/16/18 Test Reason : 1 HR POST MED Blood Pressure : / mmHG Vent. Rate : 066 BPM Atrial Rate : 066 BPM P-R Int : 172 ms QRS Dur : 090 ms QT Int : 404 ms P-R-T Axes : 009 014 017 degrees QTc Int : 423 ms Normal sinus rhythm Normal ECG Confirmed by ASAEL HALE MD ([id number]), dictionary editor RICCO LEWIS ([id number]) on 05/23/2018 8:22:15 AM Referred By: DR HALE Confirmed By:ASAEL HALE MD 05/23/18 08 Date Asael Hale MD CC: Nyla Bearden MD; Boogie Alberto; Asael Hale MD Signed 12 LEAD ELECTROCARDIOGRAM Observed: 05/23/2018 Status: F Source: [place] 8:21 AM [facility] Cardiovascular Services [address] [place] [address] 12 Lead EKG 05/18/18 1021 MR#: [id number] Acct: [id number] Name: ATTILA DEL CID Rep #: [id number] : 1970 48 From: Asael Hale MD Attending Dr: Boogie Alberto Status: DIS IN Ordering Dr: Boogie Alberto MD Date: 05/18/18 Location: [facility] Sex: Simon C Admitted: 05/16/18 Test Reason : MEDICATION Blood Pressure : / mmHG Vent. Rate : 074 BPM Atrial Rate : 074 BPM P-R Int : 174 ms QRS Dur : 086 ms QT Int : 384 ms P-R-T Axes : 012 009 009 degrees QTc Int : 426 ms Normal sinus rhythm Normal ECG Confirmed by ASAEL HALE MD ([id number]), dictionary editor RICCO LEWIS ([id number]) on 05/23/2018 8:21:09 AM Referred By: MARBELLA Confirmed By:ASAEL HALE MD 05/23/18 0821 Date Asael Hale MD CC: Nyla Bearden MD; Boogie Alberto Signed 12 LEAD ELECTROCARDIOGRAM Observed: 05/22/2018 Status: F Source: [place] 11:51 AM [facility] REPOSITORY [facility] Cardiovascular Services [address] [place] [address] 12 Lead EKG 05/20/182049 MR#: [id number] Acct: [id number] Name: ATTILA DEL CID Rep #: [id number] : 1970 48 From: Asael Hale MD Attending Dr: Status: DEP ER Ordering Dr: Chavez Byrd MD Date: 05/20/18 Location: ED Sex: M C Admitted: Test Reason : CP Blood Pressure : / mmHG Vent. Rate : 111 BPM Atrial Rate : 111 BPM P-R Int : 166 ms QRS Dur : 078 ms QT Int : 328 ms P-R-T Axes : 014 009 -02 degrees QTc Int : 446 ms Sinus tachycardia Otherwise normal ECG Confirmed by ALEXIA CONNOR, ASAEL ([id number]), dictionary editor RICCO LEWIS ([id number]) on 05/22/2018 11:50:40 AM Referred By: CANDACE Confirmed By:ASAEL HALE MD 05/22/18 1150 Date Asael Hale MD CC: Nyla Bearden MD; Chavez Byrd MD Signed ED NOTE Observed: 05/21/2018 Status: COMPLETED Source: [place] 9:54 PM [facility] OTHER CAMPUS REPOSITORY HNO ID: [id number] Author: Michela AminRn) ALE Day Service: Nursing Author Type: Registered Nurse Type: ED Notes Filed: 05/26/2018 12:20 PM Note Text: No answer ED NOTE Observed: 05/21/2018 Status: COMPLETED Source: [place] 9:53 PM [facility] OTHER CAMPUS REPOSITORY HNO ID: [id number] Author: Vidal (Rn) ALE [place] Service: (none) Author Type: Registered Nurse Type: ED Notes Filed: 05/21/2018 9:53 PM Note Text: The patient verbalizes understanding of discharge instructions. No additional questions or concerns at this time. Patient Vital signs stable, no acute distress noted. Patient ambulatory out of ED. Prescription(S) x 2 given. URINALYSIS Collected: 05/21/2018 Status: F Source: [place] 8:56 PM [facility] OTHER [facility] REPOSITORY TYPE CODE TESTS RESULT OUT OF REFERENCE UNITS RANGE LAB UCOL Yellow Color Yellow LAB [facility] Clear Clarity Clear LAB UGLUC Negative mg/dL Glucose, Urine Negative LAB UBIL Negative Bilirubin, Urine Negative LAB UKET Negative Ketones, Urine Negative LAB USPG 1.001-1.029 Specific [place], Ur 1.015 LAB UHGB Negative Hemoglobin/Blood, Negative Ur LAB UPH 5.0-8.0 pH 6.0 LAB UPROT Negative mg/dL Protein, Urine Negative LAB UUROB 0.2-1.0 Urobilinogen 0.2 LAB UNITR Negative Nitrites Negative LAB ULKEST Negative Leukest Negative Performed By: #### UA #### [facility] [address] [place] [address] CBC AND DIFFERENTIAL Collected: 05/21/2018 Status: F Source: [place] 8:47 PM [facility] OTHER [facility] REPOSITORY TYPE CODE TESTS RESULT OUT OF REFERENCE UNITS RANGE LAB WBC 3.70-11.00 k/uL WBC 9.99 LAB RBC 4.20-6.00 m/uL RBC 5.49 LAB HGB 13.0-17.0 g/dL Hemoglobin 14.8 LAB HCT 39.0-51.0 % Hematocrit 45.3 LAB MCV 80.0-100.0 fL MCV 82.5 LAB MCH 26.0-34.0 pG MCH 27.0 LAB MCHC 30.5-36.0 g/dL MCHC 32.7 LAB RDWCV 11.5-15.0 % RDW-CV 14.7 LAB PLTCT 150-400 k/uL Platelet Count 374 LAB MPV 9.0-12.7 fL MPV 9.1 LAB ANEUT % Neut% 54.1 LAB AANEUT 1.45-7.50 k/uL Abs Neut 5.40 LAB ALYMP % Lymph% 34.9 LAB AALYMP 1.00-4.00 k/uL Abs Lymph 3.49 LAB AMONO % [place]% 9.1 LAB AAMONO <0.87 k/uL Abs [place] High 0.91 LAB AEOS % Eosin% 1.2 LAB AAEOS <0.46 k/uL Abs Eosin 0.12 LAB ABASO % Baso% 0.7 LAB AABASO <0.11 k/uL Abs Baso 0.07 Performed By: #### CBCDIF, CMP, LIPA #### [facility] [address] [facility] [phone] COMP METABOLIC PANEL Collected: 05/21/2018 Status: F Source: [place] 8:47 PM [facility] OTHER CAMPUS REPOSITORY TYPE CODE TESTS RESULT OUT OF REFERENCE UNITS RANGE LAB TP 6.3-8.0 g/dL Protein, Total 7.1 LAB ALB 3.9-4.9 g/dL Albumin 4.1 LAB CA 8.5-10.2 mg/dL Calcium, Total 9.1 LAB TBIL 0.2-1.3 mg/dL Bilirubin, Total 0.3 LAB ALKP 36-108 U/L Alkaline Phosphatase 93 LAB AST 14-40 U/L AST 22 LAB GLU 74-99 mg/dL Glucose 87 Result Comment: The [place] Diabetes Association (ADA) provides guidance for cutoff values for fasting glucose and random glucose. The ADA defines fasting as no caloric intake for at least 8 hours. Fas ting plasma glucose results between 100 to 125 mg/dL indicate increased risk for diabetes (prediabetes). Fasting plasma glucose results greater than or equal to 126 mg/dL meet the criteria for diagnosis of diabetes. In the absence of unequivocal hyperglycemia, results should be confirmed by repeat testing. In a patient with classic symptoms of hyperglycemia or hyperglycemic crisis, random plasma glucose results greater than or equal to 200 mg/dL meet the criteria for diagnosis of diabetes. Reference: Standards of Medical Care in Diabetes 2016, [place] [employer]. Diabetes Care. 2016.39(Suppl 1). LAB BUN 9-24 mg/dL BUN 17 LAB CRET 0.73-1.22 mg/dL Creatinine 0.85 LAB NA 136-144 mmol/L Sodium 139 LAB K 3.7-5.1 mmol/L Potassium 4.0 LAB CL 97-105 mmol/L Chloride 103 LAB CO2 22-30 mmol/L CO2 24 LAB AGAP 9-18 mmol/L Anion Gap 12 LAB ALT 10-54 U/L ALT 26 LAB GFRAA eGFR- Amer. >60 LAB GFRNAA . eGFR-All Other Races >60 Result Comment: eGFR (Estimated GFR) Units of measure: mL/min/1.73 meters squared eGFR is derived from the reexpressed MDRD Study equation using the following parameters: serum creatinine, age, gender and race. The creatinine assay has been calibrated to be traceable to IDMS. An eGFR <60 mL/min/1.73m2 for >3 months is consistent with chronic kidney disease. Refer to KDOQI guidelines for clinical interpretation. In patients with unstable renal function, e.g. those with acute kidney injury, the eGFR may not accurately reflect actual GFR. Performed By: #### CBCDIF, CMP, LIPA #### [facility] [address] [place] [phone] LIPASE Collected: 05/21/2018 Status: F Source: [place] 8:47 PM [facility] REPOSITORY TYPE CODE TESTS RESULT OUT OF REFERENCE UNITS RANGE LAB LIPA 16-61 U/L High Lipase 87 Performed By: #### CBCDIF, CMP, LIPA #### [facility] [address] [place] [phone] CT FLANK WO IVCON Observed: 05/21/2018 Status: F Source: [place] 8:15 PM [facility] REPOSITORY * * *Final Report* * * DATE OF EXAM: May 21 2018 8:15PM [facility] 0529 - CT FLANK WO IVCON / PROCEDURE REASON: Flank pain, stone disease suspected * * * * Physician Interpretation * * * * HISTORY: Right flank pain TECHNIQUE: CT Ionizing Radiation: CT Dose Length Product (DLP): 901 mG*y cm CT Dose Reduction Employed: Automated exposure control (AEC) RESULT: Scans through the abdomen and pelvis are performed without contrast utilizing a renal stone protocol. Comparison is made with 05/20/2016. Minimal stable atelectasis or fibrosis at the left lung base. The adrenal glands and pancreas appear normal. No developing focal hepatic or splenic abnormality is seen on these unenhanced scans. Lower pole 4 mm nonobstructing right renal calculus is seen. No additional nephrolithiasis. No ureterolithiasis, gross obstructive uropathy or definite solid renal mass. No ascites or lymphadenopathy within the abdomen. Scans through the pelvis show no evidence of lymphadenopathy or mass. No abnormal fluid collection. Visualized appendix appears normal. Pedicle plate and screw device transfixes L4 and L5. IMPRESSION: Nonobstructing lower pole right nephrolithiasis. No ureterolithiasis, gross obstructive uropathy or definite solid renal mass. 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: PSCB Transcribe Date/Time: May 21 2018 8:18P Dictated by : AARTI KNIGHT MD This examination was interpreted and the report reviewed and electronically signed by: AARTI KNIGHT MD on May 21 2018 8:23PM EST [id number] ED PROV NOTE Observed: 05/21/2018 Status: COMPLETED Source: [place] 8:01 PM [facility] OTHER [facility] REPOSITORY O ID: [id number] Author: Aishwarya Negrete (Pa) Service: (none) Author Type: Physician Filler Machine Operator Type: ED Provider Notes Filed: 05/21/2018 9:34 PM Note Text: ED Provider Note Patient Name: Attila Del Cid SERVICE DATE: 05/21/18 History Patient presents with: Flank Pain Nausea AND Vomiting 48-year-old male, with a history of A. fib (see on Eliquis), hypertension, kidney stones, anxiety, aortic aneurysm, presents with right sided flank pain. The patient states it started yesterday. Feels similar to his prior kidney stones. A few weeks ago the patient had stents placed for kidney stones. Denies any urinary symptoms however he is nauseated. No fevers or chills. The patient was also admitted last week in [place] for chest pain and A. fib. He had a CT of his chest done at that time which showed a stable aortic aneurysm. He has no one-sided weakness or lower leg weakness. No chest pain or shortness of breath today. History provided by: Patient PAST MEDICAL HISTORY Diagnosis Date - Acute right flank pain 03/25/2018 - Aneurysm of ascending aorta (HCC) - Aortic aneurysm (HCC) - Arthritis - Atrial fibrillation (HCC) - Calculi, ureter - Calculus of kidney - Hematuria - Hypertension - Kidney stones 03/25/2018 - Pneumonia - Psychiatric disorder anxiety PAST SURGICAL HISTORY Procedure Laterality Date - BACK SURGERY HX 2015 FUSION, L4-L5 - COLONOSCOP W/ OR W/O BRSH SPEC 05/14/2014 Colonoscopy - EGD W/O OR W/BRUSH/WASH 05/14/2014 EGD - FRAGMENTING/KIDNEY STONE Right 2017 Lithotripsy - KNEE SURGERY HX Right 03/2017 patella replacement - [place] ANESTH,KNEE JOINT; NOS 12/2017 Left FAMILY HISTORY Problem Relation Age of Onset - Diabetes Mother - Colon Cancer Mother - Heart disease Mother - Hypertension Mother - Diabetes Sister - Skin Cancer Father Social History Social History Main Topics - Smoking status: Never Smoker - Smokeless tobacco: Never Used - Alcohol use No - Drug use: No - Sexual activity: Not on file ALLERGIES Allergen Reactions - Celebrex [Celecoxib] Vomiting Nausea - Clonidine Rash - Fentanyl GI Upset - Levofloxacin Rash pt reports to [facility] PT 04-13-2017 - Penicillin G Rash - Relpax [Eletriptan * Vomiting Nausea - Topamax [Topiramate] Vomiting - Vicodin [Hydrocodon* Vomiting - Wellbutrin [Bupropi* Vomiting Nausea Review of Systems Constitutional: Negative for chills and fever. HENT: Negative. Eyes: Negative for photophobia and visual disturbance. Respiratory: Negative for cough and shortness of breath. Cardiovascular: Negative for chest pain, palpitations and leg swelling. Gastrointestinal: Positive for nausea. Negative for abdominal pain, diarrhea and vomiting. Endocrine: Negative. Genitourinary: Positive for flank pain. Negative for difficulty urinating, dysuria, frequency and hematuria. Musculoskeletal: Negative for back pain. Skin: Negative for rash. Neurological: Negative for dizziness, weakness, light-headedness, numbness and headaches. Hematological: Bruises/bleeds easily (eliquis). Psychiatric/Behavioral: Negative. Physical Exam BP 122/81 Pulse 87 Temp 97.7 Resp 18 Wt 235 lb (106.6kg) SpO2 100% Physical Exam Constitutional: He is oriented to person, place, and time. He appears well-developed and well-nourished. No distress. Well appearing male resting comfortably in bed in [facility] HENT: Head: Normocephalic and atraumatic. Eyes: Conjunctivae are normal. Neck: Normal range of motion. Neck supple. Cardiovascular: Normal rate, regular rhythm and normal heart sounds. Pulmonary/Chest: Effort normal and breath sounds normal. No respiratory distress. Abdominal: Soft. Bowel sounds are normal. He exhibits no distension. There is no tenderness. There is no guarding. + right CVAT Musculoskeletal: Normal range of motion. Neurological: He is alert and oriented to person, place, and time. No cranial nerve deficit. Intact distal pulses Skin: Skin is warm and dry. Psychiatric: He has a normal mood and affect. Nursing note and vitals reviewed. Diagnostic Testing ED Labs Ordered and Reviewed CBC + DIFF - Abnormal; Notable for the following: Result Value Ref Range Abs [place] 0.91 (*) <0.87 k/uL All other components within normal limits LIPASE BLD - Abnormal; Notable for the following: Lipase 87 (*) 16 - 61 U/L All other components within normal limits COMP METABOLIC PANEL URINALYSIS CT flank: 4 mm non obstructing stone Procedures ED Course / Clinical Impression Clinical Impressions as of May 21 2127 Kidney stone MDM / Disposition / Plan Patient presents to the ED with right-sided flank pain that started yesterday. He has a history of kidney stones and sees Dr. Perez in urology. A few weeks ago he actually had stents placed which are now removed. No difficulty urinating but he is nauseated. He also has a history of thoracic aortic aneurysm however he was admitted to [place] last week and had stable appearance of his aneurysm on CT, I am able to review this. He has no chest pain or shortness of breath. No lower leg weakness. His pulses are equal and intact. He feels that this is kidney stone related pain as he was just discharged 2 days ago after chest pain and he has been about. CT showing a 4 mm stone in the lower pole of the right kidney. His urinalysis looks okay. Creatinine normal. White count normal. He feels better after IV fluids, morphine and Dilaudid. He would like to go home. He will call Dr. Perez tomorrow for an appointment. I will give him Zofran and Percocet and he is our ED on Flomax at home. Do not feel antibiotics are necessary. He is aware to return here immediately if he has any acute change of symptoms such as chest pain, shortness of breath, anterior abdominal pain, lower leg weakness or worse The patient was DISCHARGED: Counseled patient and spouse regarding lab results AND radiology results AND suspected diagnosis AND need for follow-up. Discharged home with verbal and written instructions. They were instructed to return as needed for persistent or worsening symptoms or any new concerns. Condition at time of disposition: improved SIGNATURE: KEYLA Wang (Pa) 05/21/18 2134 ED NOTE Observed: 05/21/2018 Status: COMPLETED Source: [place] 7:38 PM [facility] OTHER [facility]AMPUS REPOSITORY HNO ID: [id number] Author: Dominga (Rn) ALE Saldivar Service: (none) Author Type: Registered Nurse Type: ED Notes Filed: 05/21/2018 7:39 PM Note Text: Patient presents to the ED with flank pain and nausea/vomiting that started yesterday. EMERGENCY DEPARTMENT Observed: 05/21/2018 Status: F Source: [place] SUMMARY 12:41 AM [facility] REPOSITORY [facility] Medical Records Department [address] [place] [address] Emergency Department Summary 05/20/18 2220 MR#: [id number] Acct: [id number] Name: ATTILA DEL CID Rep #: [id number] : 1970 48 From: Chavez Bydr MD PCP: Nyla Bearden MD Status: DEP ER - ER Visit Summary Date of Service: 05/20/18 Chief Complaint: Chest pain and palpitations History of Present Illness: The patient is a 48 M history of reported TIA, MA, A. fib, kidney stones. Patient reportedly had a cardiac ablation in the past for A. fib. Currently he is on Eliquis and sotalol for his A. fib. He was just in the hospital and just had a negative cardiac workup. He had a recent negative cardiac catheterization. He states today he had chest discomfort intermittent since 9:00. And intermittent episodes of A. fib. Physical Examination: Well-appearing male. Vital signs are stable. Blood pressure 156/109. Heart rate 109. Pulse ox 100% on 2 L no hypoxia. He is in no distress. H EENT exam unremarkable neck nontender no JVD. Lungs clear to auscultation bilaterally. Heart regular rate and rhythm rate about 98 on my exam. Abdomen soft nontender. Normal bowel sounds no peritoneal signs. He is moving all 4 extremities they are neurovascularly intact. Calves are nontender without edema or cords. Neurologically is awake alert no focal motor or sensory deficits. He is slightly anxious. Test Results: Chest x-ray no acute process read by myself the radiologist. CBC normal. Chemistries unremarkable. Troponin normal. EKG sinus tachycardia rate of 111 no acute process. Emergency Department Course and Treatment: Repeat exam patient doing well at 2221. He will be discharged home to follow-up with his acid condenser Dr. Jesse Stokes. Treatment Plan: Discharged to home Disposition: Discharge Impression: Acute transient palpitations resolved History of A. fib Chest pain uncertain etiology This note was generated with [employer] dictation software. It may contain incorrect words, spelling, and punctuation that were not noted in review of the chart prior to signing ED Disposition - Plan for ED Patient: Chief Complaint: Palpitations Referrals: Nyla Bearden MD [Primary Care Provider] - What to do if you have Problems For any increased pain, shortness of breath, bleeding, nausea or vomiting, chest pain, or any unexpected problems, contact your Primary Care Provider. Call [facility] ([phone]) or report to the closest Emergency Room. Call 911 if necessary. 05/21/18 0041 <Electronically signed by Chavez Byrd MD> Date Chavez Byrd MD Cosigner Signature (If Indicated): Date CC: Nyla Bearden MD DISCHARGE INSTRUCTION Observed: 05/21/2018 Status: F Source: [place] 12:41 AM [facility] REPOSITORY [facility] Medical Records Department [address] [place] [address] Discharge Instruction 05/20/182 MR#: [id number] Acct: [id number] Name: ATTILA DEL CID Rep #: [id number] : 1970 48 From: Chavez Byrd MD PCP: Nyla Bearden MD Status: [facility] ER ED Disposition - Plan for ED Patient: Disposition: Home or Assisted Living Chief Complaint: Palpitations Instructions: ED Palpitations Referrals: Jesse Stokes MD [STAFF PHYSICIAN] - As soon as possible Additional Instructions: Continue current medications. Call and follow-up with Dr. Stokes. What to do if you have Problems For any increased pain, shortness of breath, bleeding, nausea or vomiting, chest pain, or any unexpected problems, contact your Primary Care Provider. Call [facility] ([phone]) or report to the closest Emergency Room. Call 911 if necessary. 05/21/18 0041 <Electronically signed by Chavez Byrd MD> Date Chavez Byrd MD Cosigner Signature (If Indicated): Date CC: Nyla Bearden MD CHEST 1 VIEW Observed: 05/20/2018 Status: F Source: [place] (PORTABLE) 9:38 PM [facility] REPOSITORY [facility] Imaging Services [address] [place] [address] Chest 1 View (Portable) MR#: [id number] Acct: [id number] Name: ATTILA DEL CID Rep #: [id number] : 1970 48 From: Dennis Loo MD PCP: Nyla Bearden MD Status: REG ER Study: Chest 1 View (Portable) Date of Exam: 05/20/18 Exam# [id number] Ordering Dr: Chavez Byrd MD STUDY: X-RAY CHEST REASON FOR EXAM: Male, 48 years old. Chest pain and palpitations, history of A. fib TECHNIQUE: Single AP portable view of the chest. COMPARISON: Prior study of 05/15/2018 FINDINGS: potline monitor leads are present. The lungs are clear and expanded. There is no demonstrated pleural abnormality. There is mild cardiac enlargement. Normal mediastinum and ruben. Normal visualized pulmonary arteries. Normal visualized aortic arch and descending thoracic aorta. Normal visualized thoracic spine. Normal visualized ribs, clavicles, and shoulders. There is no demonstrated abnormality of the visualized soft tissue structures of the upper abdomen. RAD/Chest 1 View (Portable) IMPRESSION: Mild cardiomegaly. No acute cardiopulmonary disease process is seen. Electronically Signed: Dennis Loo MD at 21:57 EDT , Service support , CC: Nyla Bearden MD; Chavez Byrd MD 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: Signed CBC W/DIFF, AUTOMATED Collected: 05/20/2018 Status: F Source: [place] 9:00 PM [facility] REPOSITORY TYPE CODE TESTS RESULT OUT OF RANGE REFERENCE UNITS LAB L100.1000 4.4-11.0 K/mm3 Normal WBC 9.0 LAB L100.1200 4.6-6.2 M/mm3 Normal RBC 5.31 LAB L100.1300 13.0-16.5 g/dl Normal HGB 14.1 LAB L100.1400 40-54 % Normal HCT 44.7 LAB L100.1500 80-94 fL Normal MCV 84.2 LAB L100.1600 27.0-32.0 pg Low MCH 26.6 LAB L100.1700 32-36 g/gl Low MCHC 31.5 LAB L100.1810 11.6-14.6 % Normal RDW CV 14.5 LAB L100.1820 35.1-43.9 fl High RDW SD 44.2 LAB L100.1900 150-450 K/mm3 Normal PLT 370 LAB L100.2000 6.2-12.0 fl Normal MPV 9.2 LAB L100.2100 47-70 % Normal NEUT% 55.3 LAB L100.2200 19-41 % Normal LY% 34.7 LAB L100.2300 0-10 % Normal MONO% 8.3 LAB L100.2400 0-5 % Normal EO% 1.2 LAB L100.2500 0-1 % Normal BASO% 0.3 LAB L100.2550 0.0-0.9 % Normal IM GRAN % 0.200 Result Comment: IG% - Immature Granulocytes (promyelocytes, myelocytes and metamyelocytes) > 1% indicates that a LEFT SHIFT is Present. LAB L100.2620 2.0-7.7 X10 3/uL Normal Absolute Neut 5.0 LAB L100.2720 0.83-4.51 X10 3/ul Normal Absolute Lymph 3.13 Performed By: #### L100.0100 #### [facility] [address] [place], [address] BASIC METABOLIC Collected: 05/20/2018 Status: F Source: [place] PROFILE (BMP) 9:00 PM [facility] REPOSITORY TYPE CODE TESTS RESULT OUT OF RANGE REFERENCE UNITS LAB L501.0100 74-106 mg/dL Normal GLU 101 Result Comment: Fasting Glucose result from 100 to 125 mg/dL suggests IMPAIRED HOMEOSTASIS per A.D.A. criteria. Please note revised GLUCOSE reference range effective 2017. LAB L501.1000 7-18 mg/dL High BUN 22 LAB L501.1100 0.70-1.30 mg/dL Normal CREAT,SERUM 1.03 Result Comment: The validity of the calculated GFR AND GFRAA in patients over 70 years has not been determined. Clinical correlation is essential. LAB L501.1110 >60 mL/min Normal EST GFR 82 Result Comment: Non- GFR Calc LAB L501.1115 >60 mL/min Normal EST GFR - AA 99 Result Comment: GFR Calc LAB L501.1255 ml/min Normal Estimated CRCL 93.41 LAB L501.1300 10-20 RATIO High BUN/CRE 21.4 LAB L501.2200 8.5-10 mg/dL Normal .1 CA 8.9 LAB L501.5300 136-14 mmol/L Normal 5 NA 142 LAB L501.5600 3.5-5. mmol/L Normal 1 K 3.5 LAB L501.5900 98-107 mmol/L High CL 108 LAB L501.6100 21.0-3 mmol/L Normal 2.0 CO2 27.0 LAB L501.6200 5-15 Normal GAP 7 Performed By: #### L500.2500, L501.4010 #### [facility] [address] [place], [address] TROPONIN-I Collected: 05/20/2018 Status: F Source: [place] 9:00 PM [facility] REPOSITORY TYPE CODE TESTS RESULT OUT OF RANGE REFERENCE UNITS LAB L501.4010 <0.045 ng/mL Normal < 0.015 TROPONIN-I Result Comment: TROPONIN-I EXPECTED VALUES <0.045 Negative 0.045 - 0.590 Consistent with Cardiac Damage > OR = 0.600 Critical Value Not every elevated troponin is indicative of MA. These values should be used with clinical judgement in examining the patient's clinical picture for diagnosis. To establish a diagnosis of MA versus myocardial injury, there must be a demonstrated rise and/or fall in the troponin values, in addition to ischemic symptoms, EKG changes, new regional wall motion abnormality, and/or angiographical evidence. PLEASE NOTE: REFERENCE RANGES EDITED 18 Performed By: #### L500.2500, L501.4010 #### [facility] [address] [facility] [place], [address] 12 LEAD ELECTROCARDIOGRAM Observed: 05/20/2018 Status: F Source: [place] 3:29 PM [facility] REPOSITORY [facility] Cardiovascular Services [address] [facility] [place] [address] 12 Lead EKG 05/15/18 2215 MR#: [id number] Acct: [id number] Name: ATTILA DEL CID Rep #: [id number] : 1970 48 From: Asael Hale MD Attending Dr: Boogie Alberto Status: DIS IN Ordering Dr: Jayden Mike MD Date: 05/15/18 Location: [facility] Sex: M C Admitted: 05/16/18 Test Reason : CP ADMIT Blood Pressure : / mmHG Vent. Rate : 073 BPM Atrial Rate : 073 BPM P-R Int : 166 ms QRS Dur : 088 ms QT Int : 404 ms P-R-T Axes : -06 007 018 degrees QTc Int : 445 ms Normal sinus rhythm Normal ECG Confirmed by ALEXIA CONNOR, ASAEL ([id number]), dictionary editor RICCO LEWIS ([id number]) on 05/20/2018 3:29:12 PM Referred By: DR COLEY Confirmed By:ASAEL HALE MD 05/20/18 1529 Date Asael Hale MD CC: Nyla Bearden MD; Boogie Alberto; Jayden Mike MD Signed 12 LEAD ELECTROCARDIOGRAM Observed: 05/20/2018 Status: F Source: [place] 3:27 PM [facility] REPOSITORY [facility] Cardiovascular Services [address] [place] [address] 12 Lead EKG 05/16/18 0518 MR#: [id number] Acct: [id number] Name: ATTILA DEL CID Rep #: [id number] : 1970 48 From: Asael Hale MD Attending Dr: Boogie Alberto Status: DIS IN Ordering Dr: Jayden Mike MD Date: 05/16/18 Location: [facility] Sex: M C Admitted: 05/16/18 Test Reason : AM EKG Blood Pressure : / mmHG Vent. Rate : 066 BPM Atrial Rate : 066 BPM P-R Int : 186 ms QRS Dur : 094 ms QT Int : 422 ms P-R-T Axes : 008 010 014 degrees QTc Int : 442 ms Normal sinus rhythm Normal ECG Confirmed by ALEXIA CONNOR, ASAEL ([id number]), dictionary editor RICCO LEWIS ([id number]) on 05/20/2018 3:27:05 PM Referred By: DR CARPENTER Confirmed By:ASAEL HALE MD 05/20/18 1527 Date Asael Hale MD CC: Nyla Bearden MD; Boogie Alberto; Jayden Mike MD Signed 12 LEAD ELECTROCARDIOGRAM Observed: 05/20/2018 Status: F Source: [place] 2:52 PM [facility] REPOSITORY [facility] Cardiovascular Services [address] [place] [address] 12 Lead EKG 05/15/18 1839 MR#: [id number] Acct: [id number] Name: ATTILA DEL CID Rep #: [id number] : 1970 48 From: Asael Hale MD Attending Dr: Boogie Alberto Status: DIS IN Ordering Dr: Keyon Grace MD Date: 05/15/18 Location: [facility] Sex: M C Admitted: 05/16/18 Test Reason : CP Blood Pressure : / mmHG Vent. Rate : 088 BPM Atrial Rate : 088 BPM P-R Int : 180 ms QRS Dur : 084 ms QT Int : 378 ms P-R-T Axes : -01 003 008 degrees QTc Int : 457 ms Sinus rhythm with Fusion complexes Otherwise normal ECG Confirmed by ALEXIA CONNOR, ASAEL ([id number]), dictionary editor RICCO LEWIS ([id number]) on 05/20/2018 2:52:16 PM Referred By: [facility] Confirmed By:ASAEL HALE MD 05/20/18 1452 Date Asael Hale MD CC: MD García Grace; Nyla Bearden MD; Boogie Alberto Signed DISCHARGE SUMMARY Observed: 05/18/2018 Status: F Source: [place] 5:11 PM [facility] REPOSITORY [facility] Medical Records Department [address] [place] [address] Discharge Summary 05/18/18 1701 MR#: [id number] Acct: [id number] Name: ATTILA DEL CID Rep #: [id number] : 1970 48 From: Boogie Alberto MD PCP: Nyla Bearden MD Status: DIS IN Y Location: [place] [id number] Discharge Date and Diagnosis Date of Admission: 05/15/18 Date of Discharge: 05/18/18 - Primary Discharge Diagnosis #1 recurrent chest pain. #2 paroxysmal A. fib/flutter. - Secondary Discharge Diagnosis Chronic Problems (Last Reviewed 07/03/18 @ 09:38 by Brittani Qureshi) SVT (supraventricular tachycardia) (Chronic) LORETTA (obstructive sleep apnea) (Chronic) Atherosclerotic heart disease of [place] coronary artery without angina pectoris (Chronic) History of left heart catheterization (Chronic) 11/09/2016 @ [facility], per Dr. Shama Harley: normal coronaries 04/07/2018 @ [facility] per Dr. Stokes: normal coronaries Nephrolithiasis (Chronic) HTN (hypertension) (Chronic) Anxiety (Chronic) PAF (paroxysmal atrial fibrillation) (Chronic) GERD (gastroesophageal reflux disease) (Chronic) Obesity (BMI 30-39.9) (Chronic) BPPV (benign paroxysmal positional vertigo) (Chronic) HLD (hyperlipidemia) (Chronic) Thoracic aortic aneurysm without rupture (Chronic) Hospital Course and Treatment Imaging Results: Clinical Impression(s) from Imaging Studies Chest X-Ray 05/15/18 18:45 IMPRESSION: No acute cardiopulmonary process. Electronically Signed: Sasha Valverde MD at 18:56 EDT Tel , Service support , Dr. Hale, cardiology. Operations: None Procedures: EKG Summary of Care Provided: The patient is a 48 year old M admitted for chest pain for evaluation. Recently, this patient has been admitted multiple times for recurrent chest pain and there was no obvious etiology identified. He underwent extensive cardiac workup recently that was unremarkable. During this admission, his EKG showed no evidence of acute ischemic changes. His troponin was negative 3. His chest x-ray showed no acute findings. This patient underwent extensive noninvasive and invasive cardiac workup recently. On April 07, 2013, he had cardiac catheterization that revealed normal coronary arteries with normal LV size and function as well as normal ejection fraction. On March 20, 2018 he had nuclear stress test that showed no evidence of stress-induced myocardial ischemia. On April 01, 2018, he had CTA chest that showed no evidence of PE or dissection, revealed dilated ascending aorta and nonspecific left upper lobe punctate nodule. Also, patient has been complaining of recurrent abdominal pain and nausea. On March 21, 2018, he had CT scan abdomen and pelvis without contrast that revealed small right kidney stones, otherwise no acute intra-abdominal pathology. During this admission, has routine blood work was unremarkable. Cardiology consulted and because patient has been on Tikosyn for atrial fibrillation/flutter and there was a concern that the Tikosyn may cause some of her symptoms including chest pain and dizziness. Cardiology decided to stop Tikosyn and patient was started on sotalol. Patient was started on sotalol, monitored closely with serial EKGs and there was no significant QTC prolongation after 4 doses of sotalol. Patient remained in sinus rhythm, heart rate remained stable and his blood pressure remained stable. There was a concern that patient may have drug-seeking behavior as he has been asking constantly for IV pain medication. He complained of dizziness which is also a chronic symptom and he has been on meclizine as outpatient. Patient discharged home in a stable medical condition, discharged on sotalol 100 mg p.o. twice daily, Coreg and Tikosyn discontinued, continued on his other medications including Eliquis, recommended follow-up with PCP in 1 week and follow-up with cardiology according to Dr. Hale recommendation. Discharge Activity: Return to Normal Activity Weight Bearing Status: Full weight bearing Call your doctor if you observe: Fever of 101 or Higher, Shortness of breath, Dizziness, Fainting spells, Chest pain, Increased palpitations (irregular heartbeat), Uncontrolled pain Home Medications: Medications to take at Discharge Pantoprazole Sodium [Protonix] 40 mg PO DAILY 04/22/16 Albuterol Inhaler [Ventolin Hfa] 1 - 2 puff INHALATION Q4H PRN PRN #1 inhaler 07/15/17 Apixaban [Eliquis] 5 mg PO BID 09/21/17 meclizine 12.5 mg tablet 12.5 mg PO QODAY PRN #30 tab 01/14/18 amlodipine 5 mg tablet 5 mg PO DAILY #90 tab 02/26/18 Furosemide 40 mg PO QDAY 03/20/18 Aspirin [Aspir-Low] 81 mg PO QDAY 04/09/18 Tamsulosin HCl [Flomax] 0.4 mg PO QDAY 04/09/18 lisinopril 20 mg tablet 20 mg PO BID #60 tab 04/18/18 atorvastatin 20 mg tablet 20 mg PO QDAY #90 tab 04/28/18 escitalopram 10 mg tablet 15 mg PO QDAY #90 tab 04/28/18 gabapentin 100 mg capsule 100 mg PO QHS #90 cap 05/01/18 Oxycodone HCl/Acetaminophen [Percocet 5-325] 1 tablet PO Q6H PRN PRN 5 Days #20 tablet 05/07/18 Sotalol Hydrochloride [Betapace (Beta Carolee)] 120 mg PO BID #90 tab 05/18/18 Following Prescrptions Were Given to Patient: Sotalol Hydrochloride [Betapace (Beta Carolee)] 120 mg PO BID #90 tab Primary Care Physician: Nyla Bearden MD [Primary Care Provider] - Please follow up with your Primary Care Physician in: 1 week. Please Follow Up With: Asael Hale MD When: call his office. Disposition: Home Minutes spent on discharge:: 32 Patient Condition:: Stable Medical Necessity - Tobacco Use Smoking Status: Never smoker Meaningful Use Info Meaningful Use Diagnoses (Choose all that apply): None applicable Code Visit Inpatient E AND M: 83104 Disch Hosp 05/18/18 1711 <Electronically signed by Boogie Alberto MD> Date Boogie Alberto MD Cosigner Signature (if applicable): Date CC: Nyla Bearden MD; Boogie Alberto; Asael Hale MD Signed DISCHARGE INSTRUCTION Observed: 05/18/2018 Status: F Source: [place] 2:04 PM [facility] RE[facility] Medical Records Department [address] [place] [address] Instructions for Home/Discharge Instructions 05/18/18 1403 MR#: [id number] Acct: [id number] Name: ATTILA DEL CID Rep #: [id number] : 1970 48 From: Boogie Alberto MD PCP: Nyla Bearden MD Status: ADM IN - Discharge Diagnoses Current Active Problems: Current Active and Chronic Problems (Last Reviewed 04/22/18 @ 09:38 by Brittani Qureshi) Atrial fibrillation and flutter (Acute) You will use the following diet at home:: Cardiac Your food should be the consistency of: Regular Discharge Activity: Return to Normal Activity Weight Bearing Status: Full weight bearing Call your doctor if you observe: Fever of 101 or Higher, Shortness of breath, Dizziness, Fainting spells, Chest pain, Increased palpitations (irregular heartbeat), Uncontrolled pain Allergies/Adverse Reactions: Allergies clonidine Allergy (Intermediate, Verified 05/15/18 18:41) rash levofloxacin [From Levaquin] Allergy (Verified 05/15/18 18:41) Rash Penicillins Allergy (Verified 05/15/18 18:41) Hives bupropion Adverse Reaction (Intermediate, Verified 05/15/18 18:41) vomiting celecoxib [From Celebrex] Adverse Reaction (Intermediate, Verified 05/15/18 18:41) vomiting eletriptan Adverse Reaction (Intermediate, Verified 05/15/18 18:41) Vomiting topiramate [From Topamax] Adverse Reaction (Intermediate, Verified 05/15/18 18:41) vomiting hydrocodone bitartrate [From Vicodin] Adverse Reaction (Verified 05/15/18 18:41) Nausea Medications to take at Discharge Pantoprazole Sodium [Protonix] 40 mg PO DAILY 04/22/16 Albuterol Inhaler [Ventolin Hfa] 1 - 2 puff INHALATION Q4H PRN PRN #1 inhaler 07/15/17 Apixaban [Eliquis] 5 mg PO BID 09/21/17 meclizine 12.5 mg tablet 12.5 mg PO QODAY PRN #30 tab 01/14/18 amlodipine 5 mg tablet 5 mg PO DAILY #90 tab 02/26/18 Furosemide 40 mg PO QDAY 03/20/18 Aspirin [Aspir-Low] 81 mg PO QDAY 04/09/18 Tamsulosin HCl [Flomax] 0.4 mg PO QDAY 04/09/18 lisinopril 20 mg tablet 20 mg PO BID #60 tab 04/18/18 atorvastatin 20 mg tablet 20 mg PO QDAY #90 tab 04/28/18 escitalopram 10 mg tablet 15 mg PO QDAY #90 tab 04/28/18 gabapentin 100 mg capsule 100 mg PO QHS #90 cap 05/01/18 Oxycodone HCl/Acetaminophen [Percocet 5-325] 1 tablet PO Q6H PRN PRN 5 Days #20 tablet 05/07/18 Sotalol Hydrochloride [Betapace (Beta Carolee)] 120 mg PO BID #90 tab 05/18/18 The following prescriptions were given: Sotalol Hydrochloride [Betapace (Beta Carolee)] 120 mg PO BID #90 tab Primary Care Physician: Nyla Bearden MD [Primary Care Provider] - Please follow up with your Primary Care Physician in: 1 week. Test Results: Test results from this visit will be discussed in further detail at your follow-up appointment, if applicable. Please Follow Up With: sAael Hale MD When: call his office. 05/18/18 1228 <Electronically signed by Boogie Alberto MD> Date Boogie Alberto MD CC: Nyla Bearden MD; Asael Hale MD CONSULTATION Observed: 05/16/2018 Status: F Source: [place] 9:22 AM [facility] Medical Records Department [address] [place] [id number] Consultation 05/16/1806 MR#: [id number] Acct: [id number] Name: ATTILA DEL CID Rep #: [id number] : 1970 48 From: Asael Hale MD PCP: Nyla Bearden MD Status: ADM FERCHO Y Location: [place] [address] Problem List (1) Non-cardiac chest pain Status: Acute (2) Atrial fibrillation and flutter Status: Acute (3) History of cardiac radiofrequency ablation Status: Resolved Comment: 10/09/[address] [facility] [address] Andrew (4) Thoracic aortic aneurysm without rupture Status: Chronic (5) HLD (hyperlipidemia) Status: Chronic Qualifiers: (6) HTN (hypertension) Status: Chronic Qualifiers: Reason for Consult Date of Consultation: 05/16/18 History of Present Illness: The patient is a 48 year old white male who has previously been diagnosed with hyperlipidemia, hypertension, paroxysmal atrial fibrillation/flutter, status post EPS/RFA, thoracic aortic aneurysm without rupture, who presents for recurrent chest discomfort. The patient has undergone extensive noninvasive and invasive cardiovascular evaluation in the past at [facility] and outside institutions. On 03/20/2018 the patient had a transthoracic echocardiogram performed. The left ventricle was normal with an LVEF of 65% with trivial TR and an estimated RV systolic pressure 39 mmHg. On 03/20/2018 the patient had a pharmacologic stress nuclear imaging study performed which was interpreted as myocardial perfusion within normal limits with a gated LVEF of 81%. On 04/07/2018 the patient underwent diagnostic cardiac catheterization at [facility]. The left ventricle was normal with an LVEF of 60%. The coronary angiography reported normal coronary arteries. Of note the patient had a previous cardiac catheterization performed at [facility] on 11/09/2016. At that time the LV was reported as having preserved LV systolic function, elevated left ventricular end-diastolic pressure, and normal-appearing epicardial coronary arteries. The patient is undergone extensive evaluation for history of atrial fibrillation/flutter. This is led to medical management as well as a previous EPS/RFA procedure being performed at [facility]. He states he is scheduled for an upcoming visit to [facility] to alter his antiarrhythmic therapy from flecainide to sotalol. He has had recurrent chest discomfort. He describes it on the left side. This correlates at times with his underlying atrial dysrhythmia. He also has been doing additional musculoskeletal activities which appears to occur prior to some of his left-sided chest discomfort. He was recently evaluated at [facility]. This was for recurrent chest discomfort. According to medical records available for review he underwent noninvasive evaluation which included a chest CT scan which demonstrated no thromboembolic disease, a stable appearing thoracic aortic aneurysm reported at 4.6 cm and no coronary artery atherosclerotic calcifications. He has had recurrent episodes of his paroxysmal atrial fibrillation. He recently, based upon a recurrent event, was advised to attempt a pill in the pocket procedure to interrupt his atrial fibrillation by taking additional flecainide. He did this and noted subsequent return to sinus rhythm. However he presents back to the hospital this day, after his recent evaluation at the outside institution, for recurrent left-sided chest discomfort. Again he states that this may have been occurring with his atrial dysrhythmia and lasting after his atrial dysrhythmia abates. He also recently performed musculoskeletal activities. He has had no episodes of associated nausea, emesis, or diaphoresis. There has been no orthopnea, PND, or peripheral pitting edema. He does note his atrial dysrhythmia. He has had no near syncope or syncope. Thus far his cardiac enzymes have been negative. His ECGs have demonstrated normal sinus rhythm with no acute ECG changes. His ekg monitor tech since being in the hospital has demonstrated episodes of his paroxysmal atrial dysrhythmia. [] Past Medical History Allergies/Adverse Reactions: Allergies clonidine Allergy (Intermediate, Verified 05/15/18 18:41) rash levofloxacin [From Levaquin] Allergy (Verified 05/15/18 18:41) Rash Penicillins Allergy (Verified 05/15/18 18:41) Hives bupropion Adverse Reaction (Intermediate, Verified 05/15/18 18:41) vomiting celecoxib [From Celebrex] Adverse Reaction (Intermediate, Verified 05/15/18 18:41) vomiting eletriptan Adverse Reaction (Intermediate, Verified 05/15/18 18:41) Vomiting topiramate [From Topamax] Adverse Reaction (Intermediate, Verified 05/15/18 18:41) vomiting hydrocodone bitartrate [From Vicodin] Adverse Reaction (Verified 05/15/18 18:41) Nausea Home Medications: Ambulatory Orders Medication Instructions Recorded Pantoprazole Sodium [Protonix] 40 mg PO DAILY 04/22/16 Carvedilol [Coreg] 25 mg PO BID 01/31/17 Past Medical History (Chronic Problems): Chronic Problems (Last Reviewed 04/22/18 @ 09:38 by Brittani Qureshi) SVT (supraventricular tachycardia) (Chronic) LORETTA (obstructive sleep apnea) (Chronic) Atherosclerotic heart disease of [place] coronary artery without angina pectoris (Chronic) History of left heart catheterization (Chronic) 11/09/2016 @ [facility], per Dr. Shama Harley: normal coronaries 04/07/2018 @ [facility] per Dr. Stokes: normal coronaries Nephrolithiasis (Chronic) HTN (hypertension) (Chronic) Anxiety (Chronic) PAF (paroxysmal atrial fibrillation) (Chronic) GERD (gastroesophageal reflux disease) (Chronic) Obesity (BMI 30-39.9) (Chronic) BPPV (benign paroxysmal positional vertigo) (Chronic) HLD (hyperlipidemia) (Chronic) Thoracic aortic aneurysm without rupture (Chronic) Surgical History: - Psychiatric History: Anxiety - *Family History Maternal Family History: Family History (Last Reviewed 04/22/18 @ 09:38 by Brittani Qureshi) Brother Hypertension Mother Heart disease Colon cancer Sister Diabetes Sister Diabetes Sister Diabetes History Items: - - Maternal family history of DM, Colon CA, Valvular Heart Disease. Paternal Family History: Family History (Last Reviewed 04/22/18 @ 09:38 by Brittani Qureshi) Brother Hypertension Mother Heart disease Colon cancer Sister Diabetes Sister Diabetes Sister Diabetes History Items: - - Paternal family history of skin CA. Lives: Spouse/ Significant Other Smoking Status: Never smoker Alcohol: None Drugs: None Review of Systems - Review of Systems General: Denies: Fever, Night Sweats, Fatigue Cardiovascular: Reports: Chest Discomfort, Chest Discomfort at Rest, Palpitations. Denies: Shortness of Breath, Orthopnea, PND, Peripheral Edema, Lightheadedness, Dizziness, Near Syncope, Syncope Respiratory: Denies: Cough, Sputum Production, Hemoptysis Gastrointestinal: Denies: Hematemesis, Hematochezia, Melena Genitourinary: Denies: Dysuria, Hematuria Skin: Denies: Rash Subjectve: This is a 48-year-old white male who appears to be resting comfortably at the moment in no acute distress. Objective: Vital Signs Temp Pulse Resp BP Pulse Ox 97.8 F 67 16 105/66 95 05/16/18 04:15 05/16/18 04:15 05/16/18 04:15 05/16/18 04:15 05/16/18 04:15 Oxygen Delivery Method Room Air Weight: 238 lb 5.115 oz Body Mass Index (BMI) 33.2 Intake and Output for Last 24 Hours Intake Total 50 / 50 Balance 50 / 50 General: Awake, Alert, Oriented x 3, Cooperative, No Acute Distress, Obese HEENT: Atraumatic, Normocephalic, PERRL, EOMI, Sclera Non Icteric Oral: Moist Mucosa Neck: Supple, Good ROM, No JVD Lungs: Clear to auscultation Cardiovascular: Regular Rhythm, Normal S1, Normal S2 Vascular: No Carotid Bruits Abdomen: Bowel Sounds Present, Soft, Non Tender Extremities: No Cyanosis, No Clubbing, No edema Lymphatic: No Lymph Node Enlargement Neurological: No Focal Motor or Sensory Deficit, CN II-XII Intact Psych/Mental Status: Appropriate, Normal Affect 05/15/18 23:11: Troponin I < 0.015 05/16/18 01:30: Troponin I < 0.015 05/16/18 05:12: WBC 8.5, RBC 4.78, Hgb 12.9 L, Hct 39.8 L, MCV 83.3, MCH 27.0, MCHC 32.4, RDW 15.0 H, RDW Differential 45.0 H, Plt Count 304, MPV 8.7 05/16/18 05:12: PT 13.7, INR 1.1, APTT 30.4 05/16/18 05:12: Sodium 142, Potassium 4.0, Chloride 109 H, Carbon Dioxide 25.0, Anion Gap 8, BUN 14, Creatinine 0.81, Est GFR (MDRD) Af Amer 131, Est GFR (MDRD) Non-Af 108, BUN/Creatinine Ratio 17.3, Glucose 97, Calcium 8.7 Rhythm: Sinus rhythm; paroxysmal atrial fibrillation/flutter EKG: Normal sinus rhythm; no acute ECG changes ECHO: As noted above Stress Test: As noted above Cardiac Cath: As noted above Chest CT Scan: As noted above Assessment/Plan 1. Chest pain The patient presents with recurrent chest pain. This has been a chronic issue for him. He has had extensive noninvasive and invasive cardiovascular evaluation. He has not been found to have any evidence of underlying angiographically significant CAD to explain his discomfort. He does have a thoracic aortic aneurysm as noted above with recent evaluation with no obvious associated complication. He does have paroxysmal atrial fibrillation/flutter which appears to his concern of a correlation with his discomfort. He has had no other evidence such as thromboembolic disease to explain his discomfort. There may be a concern of a musculoskeletal component based upon his other physical related activities. At the present time it does not appear he requires additional noninvasive or invasive evaluation of underlying CAD based upon his recent extensive evaluation. Noting that his symptoms may have a correlation with his atrial dysrhythmia and appears appropriate to proceed with evaluation care of his atrial dysrhythmia. He should be monitored for any noncardiac etiologies require further evaluation as well. 2. Paroxysmal atrial fibrillation/flutter At the present time he is undergone extensive evaluation as previously noted. He will continue his medical therapy which does include rate control therapy and antiarrhythmic therapy and anticoagulant therapy. Noting his upcoming EP plans he has requested that his medication adjustment be performed at [facility]. Thus the present time he will continue to be monitored. He will continue his control therapy and anticoagulant therapy. His antiarrhythmic therapy with respect to flecainide will be discontinued. He will be placed on antiarrhythmic therapy with sotalol. He will need to remain in the hospital for a minimum of 4 doses of sotalol with follow-up cardiac rhythm monitoring and ECGs. 3. Thoracic aortic aneurysm without rupture He has recently undergone evaluation for this as noted above. He will continue to be followed as an outpatient. 4. Hyperlipidemia The patient will continue lipid-lowering therapy as deemed appropriate. 5. Hypertension The patient will continue antihypertensive therapy. Hopefully this will help with respect to his atrial dysrhythmias and associated symptoms. Comment: The above was discussed and reviewed with the patient and his spouse. They were both agreeable to this approach. This note was generated with [employer]ation software. It may contain incorrect words, spelling, and punctuation that were not noted in checking the note before signing. 05/16/18 0922 <Electronically signed by Asael Hale MD> Date Asael Hale MD Cosigner Signature (if applicable): Date CC: Jesse Stokes MD; Nyla Bearden MD; Pepe Walsh MD; Asael Hale MD Signed HISTORY AND PHYSICAL Observed: 05/16/2018 Status: F Source: [place] EXAM 5:45 AM [facility] Medical Records Department [address] [place] [address] History and Physical 05/15/181931 MR#: [id number] Acct: [id number] Name: ATTILA DEL CID Rep #: [id number] : 1970 48 From: Jayden Mike MD PCP: Nyla Bearden MD Status: ADM FERCHO Y Location: [place] [id number] Problem List (1) Chest pain Status: Acute Qualifiers: (2) Ascending aorta dilatation Status: Chronic (3) PAF (paroxysmal atrial fibrillation) Status: Chronic History of Present Illness Date of Admission: 05/15/18 Chief Complaint: Chest pain 3 days. The patient is a 48 year old M with a significant history of HTN, MA, thoracic aortic aneurysm, and A. fib who presented because of a 3 day history of chest pain. Patient was at [facility] 3 days ago because of chest pain and because of his history of thoracic aortic aneurysm a CTA of his chest was done but this was unremarkable. Cardiac workup including cardiac enzymes at [facility] was unremarkable. In regard to his A. fib, patient follows up with Dr. Andrew, public information coordinator at [facility]. He had an ablation done in 2017 at [facility]. Plan is for him to go back to [facility] for 3 days of hospitalization where he will receive sotalol. At this time patient is on flecainide and is being managed by Dr. Stokes Because of his recent chest pain he called Dr. Hale's office and his flecainide was escalated however his chest pain persisted. His pain is located at his left chest and it radiates into his left armpit. He rates his pain as 9 out of 10. His chest pain is episodic occurring at rest and with exertion. Associated with his symptoms is shortness of breath, lightheadedness headache, nausea and diaphoresis.. Patient reports intermittent feeling of heart racing ED DrKeyonna talked to Dr. Oliva who recommended that we keep patient on his current medications, do stress test and Dr. Hale will see patient in a.m. Past Medical History Past Medical History (Chronic Problems): Chronic Problems (Last Reviewed 04/22/18 @ 09:38 by Brittani Qureshi) Ascending aorta dilatation (Chronic) SVT (supraventricular tachycardia) (Chronic) LORETTA (obstructive sleep apnea) (Chronic) Atherosclerotic heart disease of [place] coronary artery without angina pectoris (Chronic) History of left heart catheterization (Chronic) 11/09/2016 @ [facility], per Dr. Shama Harley: normal coronaries 04/07/2018 @ [facility] per Dr. Stokes: normal coronaries Nephrolithiasis (Chronic) HTN (hypertension) (Chronic) Anxiety (Chronic) PAF (paroxysmal atrial fibrillation) (Chronic) GERD (gastroesophageal reflux disease) (Chronic) Obesity (BMI 30-39.9) (Chronic) BPPV (benign paroxysmal positional vertigo) (Chronic) HLD (hyperlipidemia) (Chronic) Thoracic aortic aneurysm without rupture (Chronic) Medical History: Medical History (Last Reviewed 04/22/18 @ 09:38 by Brittani Qureshi) Ascending aorta dilatation (Chronic) I77.810 SVT (supraventricular tachycardia) (Chronic) I47.1 LORETTA (obstructive sleep apnea) (Chronic) G47.33 Atherosclerotic heart disease of [place] coronary artery without angina pectoris (Chronic) I25.10 Nephrolithiasis (Chronic) N20.0 HTN (hypertension) (Chronic) I10 Anxiety (Chronic) F41.9 PAF (paroxysmal atrial fibrillation) (Chronic) I48.0 GERD (gastroesophageal reflux disease) (Chronic) K21.9 Obesity (BMI 30-39.9) (Chronic) E66.9 BPPV (benign paroxysmal positional vertigo) (Chronic) H81.10 HLD (hyperlipidemia) (Chronic) E78.5 Thoracic aortic aneurysm without rupture (Chronic) I71.2 Allergies clonidine Allergy (Intermediate, Verified 05/15/18 18:41) rash levofloxacin [From Levaquin] Allergy (Verified 05/15/18 18:41) Rash Penicillins Allergy (Verified 05/15/18 18:41) Hives bupropion Adverse Reaction (Intermediate, Verified 05/15/18 18:41) vomiting celecoxib [From Celebrex] Adverse Reaction (Intermediate, Verified 05/15/18 18:41) vomiting eletriptan Adverse Reaction (Intermediate, Verified 05/15/18 18:41) Vomiting topiramate [From Topamax] Adverse Reaction (Intermediate, Verified 05/15/18 18:41) vomiting hydrocodone bitartrate [From Vicodin] Adverse Reaction (Verified 05/15/18 18:41) Nausea Home Medications: Ambulatory Orders Medication Instructions Recorded Pantoprazole Sodium [Protonix] 40 mg PO DAILY 04/22/16 Carvedilol [Coreg] 25 mg PO BID 01/31/17 Surgical History: Surgical History (Last Reviewed 04/22/18 @ 09:38 by Brittani Qureshi) History of left heart catheterization (Chronic) Z98.890 11/09/2016 @ [facility], per Dr. Shama Harley: normal coronaries 04/07/2018 @ [facility] per Dr. Stokes: normal coronaries History of cardiac radiofrequency ablation (Resolved) Z98.890 10/09/[address] [facility] [address] Andrew H/O arthroscopic knee surgery Z98.890 History of back surgery Z98.890 History of right knee surgery Z98.890 Surgical History: - Psychiatric History: Anxiety Smoking Status: Never smoker - *Family History Maternal Family History: Family History (Last Reviewed 04/22/18 @ 09:38 by Brittani Qureshi) Brother Hypertension Mother Heart disease Colon cancer Sister Diabetes Sister Diabetes Sister Diabetes History Items: - - Maternal family history of DM, Colon CA, Valvular Heart Disease. Paternal Family History: Family History (Last Reviewed 04/22/18 @ 09:38 by Brittani Qureshi) Brother Hypertension Mother Heart disease Colon cancer Sister Diabetes Sister Diabetes Sister Diabetes History Items: - - Paternal family history of skin CA. Review of Systems Constitutional: Denies: Chills, Fever, Weight Change Eyes: Denies: Blurred vision, Pain HEENT: Denies: Head Aches, Sinus Congestion, Sinus Drainage Cardiovascular: Reports: Chest Pain Respiratory: Reports: Shortness of Breath Gastrointestinal: Denies: Abdominal Pain, Nausea, Vomiting Genitourinary: Denies: Dysuria Musculoskeletal: Reports: - - Pain in left armpit Skin: Denies: Rash, Wounds Neurological: Denies: Numbness, Tingling, Focal weakness Psychiatric: Reports: Anxiety Hematologic/ Lymphatic: Denies: Easy Bruising, Easy Bleeding VTE Information - Inpt Only VTE Present on Admission: No VTE Mechan Device Prophylaxis: None VTE Pharm Prophylaxis ordered?: No Reason prophylaxis not ordered:: Medical Contraindication - Physical Exam General: Alert, Oriented x3, Cooperative HEENT: Atraumatic, PERRLA, EOMI, Normocephalic Neck: Supple, No JVD, Negative Carotid Bruits Lungs: Clear to auscultation, Normal air movement Cardiovascular: Regular rate, No murmurs Abdomen: Bowel Sounds Present, Soft, Non Tender Extremities: No edema, Capillary Refill Less than 3 Seconds Skin: No rashes Musculoskeletal: No Tenderness to Palpation of Joints or Extremities Neurological: Cranial nerves II-XII grossly intact Psych/Mental Status: Anxious Vital Signs Temp Pulse Resp BP Pulse Ox 98.1 F 91 17 127/86 H 98 05/15/18 18:33 05/15/18 18:33 05/15/18 18:33 05/15/18 18:33 05/15/18 18:33 Oxygen Flow Rate (L/min) 2 Oxygen Delivery Method Nasal Cannula Weight: 109.1 kg Body Mass Index (BMI) 33.5 Finger Stick Blood Glucose 95 Laboratory Tests Past 24 Hrs Assessment/Plan All Active Problems (Last Reviewed 04/22/18 @ 09:38 by Brittani Qureshi) Non-cardiac chest pain (Acute) Chest pain (Acute) History of cardiac radiofrequency ablation (Resolved) Double vision (Resolved) The patient is a 48 year old M with a significant history of HTN, MA, thoracic aortic aneurysm, and A. fib who presented because of chest pain. Chest pain Admit to a monitored bed on PCU Received aspirin 324 at ED ASA 81 mg p.o. daily Atorvastatin continued Lisinopril and carvedilol continued SL NTG 0.4 mg prn as needed for chest pain Serial cardiac enzymes Stat EKG as needed for chest pain Stress test in AM Cardiology consult. A. fib, controlled Ventricular rate of between 89-105 Carvedilol continued Flecainide continued Eliquis continued Cardiology to see patient in a.m. Hypertension Amlodipine, lisinopril and Coreg continued Depression/anxiety Lexapro continued History of thoracic aneurysm Reportedly this was unchanged per recent CT at outside hospital DVT prophylaxis On Eliquis. No prophylaxis needed at this time. This note was prepared with speech recognition software and may be prone to errors in spring up supervisor. Code Visit Inpatient E AND M: [id number] Init Hosp L2 05/16/18 0545 <Electronically signed by Jayden Mike MD> Date Jayden Mike MD Cosigner Signature: Date (if applicable) CC: Nyla Bearden MD; Jayden Mike MD Signed PROTHROMBIN TIME W/INR Collected: 05/16/2018 Status: F Source: [place] 5:12 AM [facility] REPOSITORY Order Comment: Comments: stress test protocol TYPE CODE TESTS RESULT OUT OF RANGE REFERENCE UNITS LAB L300.4150 11.7-14.9 SECONDS Normal PROTIME 13.7 LAB L300.4200 Normal INR 1.1 Performed By: #### L300.3900, L300.4310, L500.2500 #### [facility] [address] [place], [place], [address] PARTIAL THROMBOPLAST Collected: 05/16/2018 Status: F Source: [place] TIME 5:12 AM [facility] REPOSITORY Order Comment: Comments: stress test protocol TYPE CODE TESTS RESULT OUT OF RANGE REFERENCE UNITS LAB L300.4310 24.1-36.2 Seconds Normal PTT 30.4 Performed By: #### L300.3900, L300.4310, L500.2500 #### [facility] [address] [place], [place], [address] BASIC METABOLIC Collected: 05/16/2018 Status: F Source: [place] PROFILE (BMP) 5:12 AM [facility] REPOSITORY Order Comment: Comments: stress test protocol TYPE CODE TESTS RESULT OUT OF RANGE REFERENCE UNITS LAB L501.0100 74-106 mg/dL Normal GLU 97 Result Comment: Please note revised GLUCOSE reference range effective 2017. LAB L501.1000 7-18 mg/dL Normal BUN 14 LAB L501.1100 0.70-1.30 mg/dL Normal CREAT,SERUM 0.81 Result Comment: The validity of the calculated GFR AND GFRAA in patients over 70 years has not been determined. Clinical correlation is essential. LAB L501.1110 >60 mL/min Normal EST GFR 108 Result Comment: Non- GFR Calc LAB L501.1115 >60 mL/min Normal EST GFR - AA 131 Result Comment: GFR Calc LAB L501.1255 ml/min Normal Estimated CRCL 118.79 LAB L501.1300 10-20 RATIO BUN/CRE Normal 17.3 LAB L501.2200 8.5-10 mg/dL .1 CA Normal 8.7 LAB L501.5300 136-14 mmol/L 5 NA Normal 142 LAB L501.5600 3.5-5. mmol/L 1 K Normal 4.0 LAB L501.5900 98-107 mmol/L High CL 109 LAB L501.6100 21.0-3 mmol/L 2.0 CO2 Normal 25.0 LAB L501.6200 5-15 GAP Normal 8 Performed By: #### L300.3900, L300.4310, L500.2500 #### [facility] [address] [place], [place], [address] CBC-COMPLETE BLOOD CNT Collected: 05/16/2018 Status: F Source: [place] NO DIFF 5:12 AM [facility] REPOSITORY TYPE CODE TESTS RESULT OUT OF RANGE REFERENCE UNITS LAB L100.1000 4.4-11.0 K/mm3 Normal WBC 8.5 LAB L100.1200 4.6-6.2 M/mm3 Normal RBC 4.78 LAB L100.1300 13.0-16.5 g/dl Low HGB 12.9 LAB L100.1400 40-54 % Low HCT 39.8 LAB L100.1500 80-94 fL Normal MCV 83.3 LAB L100.1600 27.0-32.0 pg Normal MCH 27.0 LAB L100.1700 32-36 g/gl Normal MCHC 32.4 LAB L100.1810 11.6-14.6 % High RDW CV 15.0 LAB L100.1820 35.1-43.9 fl High RDW SD 45.0 LAB L100.1900 150-450 K/mm3 Normal PLT 304 LAB L100.2000 6.2-12.0 fl Normal MPV 8.7 Performed By: #### L100.0500 #### [facility] [address] [place], [place], [id number] TROPONIN-I Collected: 05/16/2018 Status: F Source: [place] 1:30 AM [facility] REPOSITORY Order Comment: 'TROP' Serial specimen #1, #2 or #3: 3 TYPE CODE TESTS RESULT OUT OF RANGE REFERENCE UNITS LAB L501.4010 <0.045 ng/mL Normal < 0.015 TROPONIN-I Result Comment: TROPONIN-I EXPECTED VALUES <0.045 Negative 0.045 - 0.590 Consistent with Cardiac Damage > OR = 0.600 Critical Value Not every elevated troponin is indicative of MA. These values should be used with clinical judgement in examining the patient's clinical picture for diagnosis. To establish a diagnosis of MA versus myocardial injury, there must be a demonstrated rise and/or fall in the troponin values, in addition to ischemic symptoms, EKG changes, new regional wall motion abnormality, and/or angiographical evidence. PLEASE NOTE: REFERENCE RANGES EDITED 18 Performed By: #### L501.4010 #### [facility] [address] [place], [address] EMERGENCY DEPARTMENT Observed: 05/15/2018 Status: F Source: [place] SUMMARY 9:05 PM [facility] REPOSITORY [facility] Medical Records Department [address] [place] [address] Emergency Department Summary 05/15/18 1855 MR#: [id number] Acct: [id number] Name: ATTILA DEL CID Rep #: [id number] : 1970 48 From: Keyon Grace MD PCP: Nyla Bearden MD Status: REG ER - ER Visit Summary Date of Service: 05/15/18 Chief Complaint: [] Chest pain for 3 or 4 days recently admitted to [facility] with negative workup History of Present Illness: The patient is a 48 M [] 3 of A. fib history of mild heart attack, reports that he has been having chest pain since about Saturday or Saturday he was admitted [facility] on Saturday stay there for about 2448 hrs., during that visit he indicates he was told his cardiac workup was negative including a negative chest CTA for dissection or PE as he has a history of a thoracic aneurysm measuring 4.7 cm. He is seen by a acid condenser named Dr. Vásquez in the [place] area at [facility] there is some thought that maybe he needs to be started on satalol, he was to follow-up with those physicians to have that medication considered as part of his treatment option however his chest pain persisted is actually going on for 3 or 4 days and then he was instructed to come to the emergency department Had no fever no cough no history of DVT PE, his history of chest pain is similar pain to what is having but this is persisted for days now Physical Examination: [] Vital signs are within normal range she has a sinus rhythm on the heart monitor of 80 there is no signs of A. fib his lungs are clear heart tones are normal the abdomen soft nontender upper lower extremities unremarkable he is moving all 4 extremities pulses symmetric bilaterally Spoke with Dr. Oliva about this patient given his complicated history and the multiple antiarrhythmics he is on, at this time the plan will be to evaluate his chest pain treat that we will try to review the records from [place] to evaluate all the above and arrange for admission for cardiac stress testing and further management of his arrhythmia/A. fib as clinically warranted Test Results: [] Emergency Department Course and Treatment: [] Please note the patient's labs are all unremarkable as his EKG and chest x-ray, we are waiting the results of the records from [facility] and the CTA report the plan is as above, discussed with hospitalist Treatment Plan: [] Disposition: [] Admit evaluation for chest pain Impression: [] Chest pain etiology unclear history of thoracic aneurysm 4.7 cm, history of A. fib This note was generated with [employer] dictation software. It may contain incorrect words, spelling, and punctuation that were not noted in review of the chart prior to signing ED Disposition - Plan for ED Patient: Chief Complaint: Chest Pain Referrals: Nyla Bearden MD [Primary Care Provider] - What to do if you have Problems For any increased pain, shortness of breath, bleeding, nausea or vomiting, chest pain, or any unexpected problems, contact your Primary Care Provider. Call [facility] ([phone]) or report to the closest Emergency Room. Call 911 if necessary. 05/15/18 2336 <Electronically signed by Keyon Grace MD> Date Keyon Grace MD Cosigner Signature (If Indicated): Date CC: Nyla Bearden MD CHEST 1 VIEW Observed: 05/15/2018 Status: F Source: [place] (PORTABLE) 6:43 PM [facility] REPOSITORY [facility] Imaging Services [address] [place] [address] Chest 1 View (Portable) MR#: [id number] Acct: [id number] Name: ATTILA DEL CID Rep #: [id number] : 1970 M 48 From: Sasha Valverde MD PCP: Nyla Bearden MD Status: PRE ER Study: Chest 1 View (Portable) Date of Exam: 05/15/18 Exam# [id number] Ordering Dr: Keyon Grace MD STUDY: X-RAY CHEST REASON FOR EXAM: Male, 48 years old. Chest pain. TECHNIQUE: Portable frontal COMPARISON: April 02 and 2017. FINDINGS: There is no new focal consolidation. Normal size heart. There is stable prominence of the mediastinum. Normal visualized pulmonary arteries. Normal visualized aortic arch and descending thoracic aorta. Normal visualized thoracic spine. Normal visualized ribs, clavicles, and shoulders. There is no demonstrated abnormality of the visualized soft tissue structures of the upper abdomen. RAD/Chest 1 View (Portable) IMPRESSION: No acute cardiopulmonary process. Electronically Signed: Sasha Valverde MD at 18:56 EDT Tel , Service support , CC: MD García Grace; Nyla Bearden MD 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: Signed CBC W/DIFF, AUTOMATED Collected: 05/15/2018 Status: F Source: [place] 6:40 PM [facility] REPOSITORY TYPE CODE TESTS RESULT OUT OF RANGE REFERENCE UNITS LAB L100.1000 4.4-11.0 K/mm3 Normal WBC 8.3 LAB L100.1200 4.6-6.2 M/mm3 Normal RBC 5.02 LAB L100.1300 13.0-16.5 g/dl Normal HGB 13.5 LAB L100.1400 40-54 % Normal HCT 42.1 LAB L100.1500 80-94 fL Normal MCV 83.9 LAB L100.1600 27.0-32.0 pg Low MCH 26.9 LAB L100.1700 32-36 g/gl Normal MCHC 32.1 LAB L100.1810 11.6-14.6 % High RDW CV 15.0 LAB L100.1820 35.1-43.9 fl High RDW SD 45.4 LAB L100.1900 150-450 K/mm3 Normal PLT 287 LAB L100.2000 6.2-12.0 fl Normal MPV 8.4 LAB L100.2100 47-70 % Normal NEUT% 64.1 LAB L100.2200 19-41 % Normal LY% 27.4 LAB L100.2300 0-10 % Normal MONO% 6.5 LAB L100.2400 0-5 % Normal EO% 1.4 LAB L100.2500 0-1 % Normal BASO% 0.2 LAB L100.2550 0.0-0.9 % Normal IM GRAN % 0.400 Result Comment: IG% - Immature Granulocytes (promyelocytes, myelocytes and metamyelocytes) > 1% indicates that a LEFT SHIFT is Present. LAB L100.2620 2.0-7.7 X10 3/uL Normal Absolute Neut 5.3 LAB L100.2720 0.83-4.51 X10 3/ul Normal Absolute Lymph 2.28 Performed By: #### L100.0100, L500.2500, L501.4010 #### [facility] [address] [place], [address] BASIC METABOLIC Collected: 05/15/2018 Status: F Source: [place] PROFILE ([facility]) 6:40 PM [facility] REPOSITORY TYPE CODE TESTS RESULT OUT OF RANGE REFERENCE UNITS LAB L501.0100 74-106 mg/dL Normal GLU 99 Result Comment: Please note revised GLUCOSE reference range effective 2017. LAB L501.1000 7-18 mg/dL Normal BUN 11 LAB L501.1100 0.70-1.30 mg/dL Normal CREAT,SERUM 1.08 Result Comment: The validity of the calculated GFR AND GFRAA in patients over 70 years has not been determined. Clinical correlation is essential. LAB L501.1110 >60 mL/min Normal EST GFR 78 Result Comment: Non- GFR Calc LAB L501.1115 >60 mL/min Normal EST GFR - AA 94 Result Comment: GFR Calc LAB L501.1255 ml/min Normal Estimated CRCL 89.09 LAB L501.1300 10-20 RATIO Normal BUN/CRE 10.2 LAB L501.2200 8.5-10 mg/dL Normal .1 CA 8.7 LAB L501.5300 136-14 mmol/L Normal 5 NA 139 LAB L501.5600 3.5-5. mmol/L Normal 1 K 3.7 LAB L501.5900 98-107 mmol/L Normal CL 105 LAB L501.6100 21.0-3 mmol/L Normal 2.0 CO2 26.0 LAB L501.6200 5-15 Normal GAP 8 Performed By: #### L100.0100, L500.2500, L501.4010 #### [facility] [address] [facility] [place], [place], [address] TROPONIN-I Collected: 05/15/2018 Status: F Source: [place] 6:40 PM [facility] REPOSITORY TYPE CODE TESTS RESULT OUT OF RANGE REFERENCE UNITS LAB L501.4010 <0.045 ng/mL Normal < 0.015 TROPONIN-I Result Comment: TROPONIN-I EXPECTED VALUES <0.045 Negative 0.045 - 0.590 Consistent with Cardiac Damage > OR = 0.600 Critical Value Not every elevated troponin is indicative of MA. These values should be used with clinical judgement in examining the patient's clinical picture for diagnosis. To establish a diagnosis of MA versus myocardial injury, there must be a demonstrated rise and/or fall in the troponin values, in addition to ischemic symptoms, EKG changes, new regional wall motion abnormality, and/or angiographical evidence. PLEASE NOTE: REFERENCE RANGES EDITED 18 Performed By: #### L100.0100, L500.2500, L501.4010 #### [facility] [address] [place], [address] BNP,B-TYPE NATRIURETIC Collected: 05/15/2018 Status: F Source: [place] PEPTIDE 6:40 PM [facility] REPOSITORY TYPE CODE TESTS RESULT OUT OF RANGE REFERENCE UNITS LAB L503.6620 0-100 pg/mL Normal B-TYPE 6.8 ABIDA PEP Performed By: #### L503.6620 #### [facility] [address] [place], [address] ORTHOPEDIC VISIT Observed: 05/15/2018 Status: F Source: [place] REPORT 10:18 AM [facility] REPOSITORY [facility] Orthopaedics AND Sports Medicine [facility] [facility] [address] [place] [address] OFFICE VISIT Date of Service: 05/15/18 MR#: [id number] Acct: [id number] Name: ATTILA DEL CID Rep #: [id number] : 1970 Provider: Claribel Batista DO Age/Sex: 48/M Location: [facility] Status: Signed Intake Intake Visit Reasons: Right Wrist Pain Chief Complaint: follow-up visit Is patient in pain?: Yes Allergies clonidine Allergy (Intermediate, Verified 05/07/18 20:33) rash levofloxacin [From Levaquin] Allergy (Verified 05/07/18 20:33) Rash Penicillins Allergy (Verified 05/07/18 20:33) Hives bupropion Adverse Reaction (Intermediate, Verified 05/07/18 20:33) vomiting celecoxib [From Celebrex] Adverse Reaction (Intermediate, Verified 05/07/18 20:33) vomiting eletriptan Adverse Reaction (Intermediate, Verified 05/07/18 20:33) Vomiting topiramate [From Topamax] Adverse Reaction (Intermediate, Verified 05/07/18 20:33) vomiting hydrocodone bitartrate [From Vicodin] Adverse Reaction (Verified 05/07/18 20:33) Nausea Medications Pantoprazole Sodium [Protonix] 40 mg PO DAILY 04/22/16 [History Confirmed 04/22/18] Carvedilol [Coreg] 25 mg PO BID 01/31/17 [History Confirmed 04/22/18] Albuterol Inhaler [Ventolin Hfa] 1 - 2 puff INHALATION Q4H PRN PRN #1 inhaler 07/15/17 [Rx Confirmed 04/22/18] Apixaban [Eliquis] 5 mg PO BID 09/21/17 [History Confirmed 04/22/18] meclizine 12.5 mg tablet 12.5 mg PO QODAY PRN #30 tab 01/14/18 [Rx Confirmed 04/22/18] amlodipine 5 mg tablet 5 mg PO DAILY #90 tab 02/26/18 [Rx Confirmed 04/22/18] Furosemide 40 mg PO QDAY 03/20/18 [History Confirmed 04/22/18] Aspirin [Aspir-Low] 81 mg PO QDAY 04/09/18 [History Confirmed 04/22/18] Tamsulosin HCl [Flomax] 0.4 mg PO QDAY 04/09/18 [History Confirmed 04/22/18] lisinopril 20 mg tablet 20 mg PO BID #60 tab 04/18/18 [Rx Confirmed 04/22/18] atorvastatin 20 mg tablet 20 mg PO QDAY #90 tab 04/28/18 [Rx Confirmed 04/28/18] escitalopram 10 mg tablet 15 mg PO QDAY #90 tab 04/28/18 [Rx Confirmed 04/28/18] gabapentin 100 mg capsule 100 mg PO QHS #90 cap 05/01/18 [Rx] Oxycodone HCl/Acetaminophen [Percocet 5/325] 1 tab PO Q6H PRN PRN 5 Days #20 tab 05/07/18 [Rx] PFSH Medical History Ascending aorta dilatation (Chronic) SVT (supraventricular tachycardia) (Chronic) LORETTA (obstructive sleep apnea) (Chronic) Atherosclerotic heart disease of [place] coronary artery without angina pectoris (Chronic) Nephrolithiasis (Chronic) HTN (hypertension) (Chronic) Anxiety (Chronic) PAF (paroxysmal atrial fibrillation) (Chronic) GERD (gastroesophageal reflux disease) (Chronic) Obesity (BMI 30-39.9) (Chronic) BPPV (benign paroxysmal positional vertigo) (Chronic) HLD (hyperlipidemia) (Chronic) Thoracic aortic aneurysm without rupture (Chronic) Surgical History History of left heart catheterization (Chronic) History of cardiac radiofrequency ablation (Resolved) H/O arthroscopic knee surgery (Resolved) History of back surgery (Resolved) History of right knee surgery (Resolved) Family History Brother Hypertension Mother Heart disease Colon cancer Sister Diabetes Sister Diabetes Sister Diabetes Social History Smoking Status: Never smoker alcohol intake: never substance use type: does not use caffeine: No what type of physical activity do you participate in: walking frequency: 1-2 times per week duration: 15-30 minutes/day seatbelt use: always do you feel safe at home: Yes HPI Right Wrist Pain: Details: ATTILA DEL CID is a 48 year old M here today for review his recent EMG and that he continues to have tingling and pain. 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 His shoulder has also been increasing in pain and he did not have much relief from injection. Ortho Exam Right Wrist/Hand Skin/Wound: Yes CDI Contralateral Normal: Yes A1 valerie trigger: No Right Wrist: Yes Durken's Test, ROM-Pronation 0-80, ROM-Flexion 0-80, ROM-Extension 0-60 and ROM-Supination 0-90 Office Procedures Ortho Injections Injections Yes Carpal Tunnel Injection Right Details: Obtained consent for injection. Under sterile conditions, injected the patients right carpal tunnel with 1cc bupivacaine and 1/2cc kenalog. The patient tolerated the injection well without any noted complication. Patient should call our office if redness develops, pain worsens or if they have any concerns. Office Meds Kenalog Performing Provider: Claribel Batista DO Administered by: Claribel Batista DO on 05/15/18 09:26 Dose Route Admin Location Lot Number Expiration DateNDC Tip Inserter 0.5 mg Tendon Sheath Iright carpal AAU 3232 02/18/19 4793-5915-80 [facility] ZurnIBB Assessment AND Plan 1. Right carpal tunnel syndrome G56.01 Plan Personally reviewed the EMG and explained that he has carpal tunnel and his treatment option today is an injection. He can try otc bracing at night if needed. Explained that he may have some numbness over the next day or two and that it may take that long for the kenalog to take effect. Follow up in 4 months or sooner if pain, swelling, numbness or associated symptoms, or concerns develop. All questions answered. Patient in agreement of plan. Plan Detail Other Orders Orders: Other Medications Discontinued: Kenalog (triamcinolone acetonide) 0.5 mg (0.01 mL) Tendon Sheath Inj. M25.53Dane Miller Discontinued Reason: Office MedicaONCE NS tion has been Documented as given Coding Level of Care Code Off vis,est,level 4 Diagnoses Right carpal tunnel syndrome G56.01 Additional Codes yoga teacher.shelby ([id number]) 05/15/18 1018 <Electronically signed by Claribel Batista DO> Date Claribel Batista DO Cosigner Signature: Date (if applicable) CC: PROCEDURE Observed: 05/14/2018 Status: COMPLETED Source: [place] 11:39 AM CLINIC OTHER CAMPUS REPOSITORY O ID: [id number] Author: Camron Perez Service: (none) Author Type: Physician Type: Procedures Filed: 05/14/2018 11:41 AM Note Text: CYSTOSCOPY PROCEDURE NOTE: Attila Del Cid is a 48 year old male who presents with Indwelling right ureteral stent for cystoscopy and stent removal. Pt ID verified with patient: Yes Procedure verified with patient: Yes Procedure confirmed with physician and community support professional: Yes Pre Procedure Pain Assessment: 0 Sign In History and Physical Exam reviewed and is unchanged. . Informed Consent Discussed: Yes. Risks, benefits, alternatives and personnel discussed with patient who consents to proceed. Sign in Communication: Completed Antibiotic Given: Yes keflex Time Out: Team Confirms the Correct Patient, Correct Procedure; Cystoscopy and Stent Extraction, Correct Site and Site Marking, Correct Position (if applicable). Fire Safety Check List Reviewed: Yes Affirmation of Time Out: Yes Sign Out: Sign Out Discussion: Completed Physician: Camron Perez MD Urinalysis Done and Reviewed: Yes The benefits, risks, alternatives of the cystoscopy procedure and personnel were discussed with the patient. The verbal consent was obtained and the patient agrees to proceed. Procedure: The patient was placed on the procedure table in the supine position and prepped and draped in the usual sterile fashion. 2% Lidocaine Jelly was placed per urethra as an anesthetic in the standard fashion. Once adequate local anesthesia was achieved, the cystoscope was carefully placed into the urethra under direct visual guidance. The scope was negotiated through the pendulous urethra to the level of the bulbar urethra with no evidence of stricture. The verumontanum came into view and the scope was negotiated through the prostatic urethra which showed evidence of a patent prostatic urethra. The bladder was entered and careful [facility] endoscopy was carried out. The posterior, superior and lateral gómez and dome of the bladder were all well visualized and the scope was retroflexed upon itself. The findings were consistent with no evidence of bladder mucosal pathology. The indwelling Right ureteral stent was removed without difficulty. At the conclusion of the procedure, the cystoscope was removed atraumatically. The patient tolerated the procedure without complications. Post Procedure Pain Assessment: 0 Patient was given standard post-procedure instructions. ASSESSMENT/PLAN: 1. Calculus of kidney - ICD9: 592.0, ICD10: N20.0 6 m with KUB - CYSTO W/URETER STENT EXTRACT MD Camron Candelaria M.D. CNOV Observed: 05/14/2018 Status: COMPLETED Source: [place] 9:30 AM [facility] OTHER [place] REPOSITORY Office Visit (AKURGR) ATTILA DEL CID ([id number]) 1970 M [facility] Date Time Provider Department 05/14/18 9:30 AM CAMRON PEREZ During your visit today, we recorded the following information about you: Blood pressure Weight Height 142/90 111.1 kg 1.803 m Linda Sampranav [facility] 05/14/2018 9:45 AM Signed Attila Del Cid has been off all blood thinners for 0 days. Allergies are ALLERGIES Allergen Reactions - Celebrex [Celecoxib] Vomiting Nausea - Clonidine Rash - Fentanyl GI Upset - Levofloxacin Rash pt reports to [facility] PT 04-13-2017 - Penicillin G Rash - Relpax [Eletriptan * Vomiting Nausea - Topamax [Topiramate] Vomiting - Vicodin [Hydrocodon* Vomiting - Wellbutrin [Bupropi* Vomiting Nausea Allergy to amoxicillin, betadine, cipro, latex or lidocaine? Yes Meds given prior to procedure: Keflex 500 mg Lot #[id number] EX # 10/2018 Linda Fonseca Cma Camron Perez MD 05/14/2018 11:41 AM Signed CYSTOSCOPY PROCEDURE NOTE: Attila Del Cid is a 48 year old male who presents with Indwelling right ureteral stent for cystoscopy and stent removal. Pt ID verified with patient: Yes Procedure verified with patient: Yes Procedure confirmed with physician and community support professional: Yes Pre Procedure Pain Assessment: 0 Sign In History and Physical Exam reviewed and is unchanged. . Informed Consent Discussed: Yes. Risks, benefits, alternatives and personnel discussed with patient who consents to proceed. Sign in Communication: Completed Antibiotic Given: Yes keflex Time Out: Team Confirms the Correct Patient, Correct Procedure; Cystoscopy and Stent Extraction, Correct Site and Site Marking, Correct Position (if applicable). Fire Safety Check List Reviewed: Yes Affirmation of Time Out: Yes Sign Out: Sign Out Discussion: Completed Physician: Camron Perez MD Urinalysis Done and Reviewed: Yes The benefits, risks, alternatives of the cystoscopy procedure and personnel were discussed with the patient. The verbal consent was obtained and the patient agrees to proceed. Procedure: The patient was placed on the procedure table in the supine position and prepped and draped in the usual sterile fashion. 2% Lidocaine Jelly was placed per urethra as an anesthetic in the standard fashion. Once adequate local anesthesia was achieved, the cystoscope was carefully placed into the urethra under direct visual guidance. The scope was negotiated through the pendulous urethra to the level of the bulbar urethra with no evidence of stricture. The verumontanum came into view and the scope was negotiated through the prostatic urethra which showed evidence of a patent prostatic urethra. The bladder was entered and careful hsu endoscopy was carried out. The posterior, superior and lateral gómez and dome of the bladder were all well visualized and the scope was retroflexed upon itself. The findings were consistent with no evidence of bladder mucosal pathology. The indwelling Right ureteral stent was removed without difficulty. At the conclusion of the procedure, the cystoscope was removed atraumatically. The patient tolerated the procedure without complications. Post Procedure Pain Assessment: 0 Patient was given standard post-procedure instructions. ASSESSMENT/PLAN: 1. Calculus of kidney - ICD9: 592.0, ICD10: N20.0 6 m with KUB - CYSTO W/URETER STENT EXTRACT MD Camron Candelaria M.D. Referring Provider: NYLA BEARDEN [[id number]] Allergies As of Date: 05/14/2018 Noted Allergy Reaction CELEBREX (CELECOXIB) 07/17/2016 11 - Vomiting Comments: Nausea CLONIDINE 07/17/2016 2 - Rash FENTANYL 07/17/2016 8 - GI Upset LEVOFLOXACIN 04/13/2017 2 - Rash Comments: pt reports to [facility] PT 6--2017 PENICILLIN G 12/30/2013 2 - Rash RELPAX (ELETRIPTAN HBR) 07/17/2016 11 - Vomiting Comments: Nausea TOPAMAX (TOPIRAMATE) 07/17/2016 11 - Vomiting VICODIN (HYDROCODONE-ACETAMINOPHE*12/30/2013 11 - Vomiting WELLBUTRIN (BUPROPION HCL) 07/17/2016 11 - Vomiting Comments: Nausea Date Reviewed: 05/14/2018 Reviewed by: Camron Perez - Fully Assessed Reason for Visit: Procedure [88] Cmt: Cysto Primary Visit Diagnosis:Calculus of kidney [N20.0] Order(s):UA DIP, URINE (POC) [2514490] Order #: [id number] #:[id number] CYSTO W/URETER STENT EXTRACT [[id number]] Order #: [id number] XR ABDOMEN 1V SUPINE [[id number]] Order #: [id number] FUTURE Prescriptions as of 05/14/2018 Sig: ATORVASTATIN 20 MG TABLET every day CLOPIDOGREL 75 MG TABLET .COMPLEX ESCITALOPRAM 10 MG TABLET every day CEPHALEXIN 500 MG CAPSULE Take 1 capsule by mouth twice* PHENAZOPYRIDINE 200 MG TABLET TO BE TAKEN DIRECTED BY MO* DOCUSATE SODIUM 100 MG CAPSULE Take 1 capsule by mouth twice* FLECAINIDE 100 MG TABLET Take 100 mg by mouth twice da* AMLODIPINE 5 MG TABLET Take 5 mg by mouth once daily. BABY ASPIRIN ORAL Take 1 tablet by mouth once d* TAMSULOSIN 0.4 MG CAPSULE every day GABAPENTIN 300 MG CAPSULE APIXABAN 5 MG TABLET Take by mouth twice daily. SERTRALINE 100 MG TABLET 200 mg. CARVEDILOL 25 MG TABLET Take 1 tablet by mouth twice * MECLIZINE 12.5 MG TABLET Take 2 tablets by mouth twice* LISINOPRIL 20 MG TABLET Take 1 tablet by mouth once d* PANTOPRAZOLE 40 MG TABLET,DEL* Take 1 tablet by mouth once d* ALBUTEROL SULFATE HFA 90 MCG/* Inhale 2 Puffs as instructed * PROMETHAZINE 25 MG TABLET Take 25 mg by mouth every 6 h* [id number]* BUSPIRONE 7.5 MG TABLET Take 7.5 mg by mouth twice da* ROPINIROLE 1 MG TABLET Take 1 tablet by mouth daily * Patient not taking: Reported on 04/16/2018 IBUPROFEN 600 MG TABLET Take 1 tablet by mouth every * Patient not taking: Reported on 05/14/2018 Problem List As Of Date 05/14/2018 Noted Resolved Primary osteoarthritis of right knee [M17.11] INVALID FOR* Chest pain at rest [R07.9] INVALID FOR* HTN (hypertension) [I10] INVALID FOR* Atrial fibrillation (HCC) [I48.91] INVALID FOR* More... Atypical chest pain [R07.89] INVALID FOR* Patellofemoral instability of right knee with p*INVALID FOR* Kidney stones [N20.0] INVALID FOR* Acute right flank pain [R10.9] INVALID FOR* Ectatic thoracic aorta (HCC) [I77.810] INVALID FOR* More... Renal calculus, right [N20.0] INVALID FOR* Visit Notes: >> Linda Fonseca [facility] SatMay 14, 2018 9:32 AM Status: Signed Attila Del Cid has been off all blood thinners for 0 days. Allergies are ALLERGIES Allergen Reactions - Celebrex [Celecoxib] Vomiting Nausea - Clonidine Rash - Fentanyl GI Upset - Levofloxacin Rash pt reports to [facility] PT 04-13-2017 - Penicillin G Rash - Relpax [Eletriptan * Vomiting Nausea - Topamax [Topiramate] Vomiting - Vicodin [Hydrocodon* Vomiting - Wellbutrin [Bupropi* Vomiting Nausea Allergy to amoxicillin, betadine, cipro, latex or lidocaine? Yes Meds given prior to procedure: Keflex 500 mg Lot #[id number] EX # 10/2018 Linda Fonseca [facility] Encounter Status:Closed by CAMRON PEREZ MD on 05/14/18 HIGH SENS TROPONIN T Collected: 05/13/2018 Status: F Source: [place] 8:32 PM [facility] OTHER CAMPUS REPOSITORY TYPE CODE TESTS RESULT OUT OF REFERENCE UNITS RANGE LAB HSTN <12 ng/L High Sensitivity NARGIS <6 Result Comment: When assessing risk for acute coronary syndromes: In patients undergoing blood draw greater than or equal to 2 hours from symptom onset, with history of very low to moderate risk and non-ischemic ECG, an initial hs-Troponin T less than 12 ng/L AND a 1 hour delta hs-Troponin T less than 3 ng/L should be considered very low risk for 30 day MACE. Performed By: #### HSTNT #### [facility] [address] [place] [address] CT CHEST W IVCON PE Observed: 05/13/2018 Status: F Source: [place] 8:21 PM [facility] OTHER [facility] REPOSITORY * * *Final Report* * * DATE OF EXAM: May 13 2018 8:21PM [facility] [place] [facility] 0540 - CT CHEST W IVCON PE / PROCEDURE REASON: Shortness of breath * * * * Physician Interpretation * * * * EXAMINATION: CHEST CT WITH CONTRAST (PULMONARY EMBOLISM PROTOCOL) CLINICAL HISTORY: Shortness of breath Technique: Spiral CT acquisition of the chest from the thoracic inlet to the upper abdomen following IV contrast. MQ: CTCPER_4 Contrast: 100 mL Omnipaque [address] Dose-Length Product: 431 mGy*cm CT Dose Reduction Employed: mAs-kVp adjusted based on patient size-age Comparison: CT chest 06/09/2016 RESULT: Limitations: None. Evaluation for thromboembolic disease: - Right heart chambers: No thromboembolic disease. - Main pulmonary arteries: No thromboembolic disease. - Lobar pulmonary arteries: No thromboembolic disease. - Segmental pulmonary arteries: No thromboembolic disease. - Subsegmental pulmonary arteries: No thromboembolic disease. Lines, tubes, and devices: None. Lung parenchyma and pleura: No consolidation. There are scattered areas of subsegmental atelectasis. No suspicious pulmonary nodule. No pleural effusion. Central airways are patent. Thoracic inlet, heart, and mediastinum: No lymphadenopathy in the axillary, mediastinal, or hilar regions. There is unchanged dilatation of the ascending thoracic aorta which measures 4.6 cm in diameter. The cardiac chambers are normal in size. No coronary artery atherosclerotic calcifications are noted, although the study is not optimized for coronary assessment. No pericardial effusion or thickening. Bones and soft tissues: No destructive bone lesion. Chest wall is unremarkable. Upper abdomen: No abnormality in the imaged upper abdomen. IMPRESSION: 1. No evidence of pulmonary emboli 2. Stable dilatation of the ascending thoracic aorta 3. No pleural effusion or consolidation 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: [facility] Transcribe Date/Time: May 13 2018 8:31P Dictated by : SHERIN RAYMOND MD This examination was interpreted and the report reviewed and electronically signed by: SHERIN RAYMOND MD on May 13 2018 8:36PM EST [id number] EKG Observed: 05/13/2018 Status: F Source: [place] 8:15 PM [facility] OTHER CAMPUS REPOSITORY NAME : ATTILA DEL CID PID : [id number] : 1970 Gender : Male Race : ORD : [id number] Procedure Date : May 13 2018 20:15:02 Edit Date : May 14 2018 08:26:10 Diagnosis:NORMAL SINUS RHYTHM MINIMAL VOLTAGE CRITERIA FOR LVH, MAY BE NORMAL VARIANT BORDERLINE ECG WHEN COMPARED WITH ECG OF 13-MAY-2018 18:33, NO SIGNIFICANT CHANGE WAS FOUND Confirmed by MD Stroud Qarab ([id number]) on 05/14/2018 8:26:07 AM Ventricular Rate : 82 BPM Atrial Rate : 82 BPM P-R Interval : 158 ms QRS Duration : 74 ms Q-T Interval : 384 ms QTC Calculation(Bezet) : 448 ms P Greenwood : 12 degrees R Greenwood : -1 degrees T Greenwood : -3 degrees Test Reason : Chest Pain Location : 1 : ER 15 Overread By : MD Stroud Qarab Edited By : MD Stroud Qarab Referred By : , Acquired by : DAYANNA CBC AND DIFFERENTIAL Collected: 05/13/2018 Status: F Source: [place] 7:12 PM [facility] OTHER CAMPUS REPOSITORY TYPE CODE TESTS RESULT OUT OF REFERENCE UNITS RANGE LAB WBC 3.70-11.00 k/uL WBC 7.98 LAB RBC 4.20-6.00 m/uL RBC 5.20 LAB HGB 13.0-17.0 g/dL Hemoglobin 14.1 LAB HCT 39.0-51.0 % Hematocrit 42.5 LAB MCV 80.0-100.0 fL MCV 81.7 LAB MCH 26.0-34.0 pG MCH 27.1 LAB MCHC 30.5-36.0 g/dL MCHC 33.2 LAB RDWCV 11.5-15.0 % RDW-CV 14.9 LAB PLTCT 150-400 k/uL Platelet Count 333 LAB MPV 9.0-12.7 fL Low MPV 8.9 LAB ANEUT % Neut% 53.8 LAB AANEUT 1.45-7.50 k/uL Abs Neut 4.30 LAB ALYMP % Lymph% 33.1 LAB AALYMP 1.00-4.00 k/uL Abs Lymph 2.64 LAB AMONO % [place]% 11.3 LAB AAMONO <0.87 k/uL Abs [place] High 0.90 LAB AEOS % Eosin% 1.3 LAB AAEOS <0.46 k/uL Abs Eosin 0.10 LAB ABASO % Baso% 0.5 LAB AABASO <0.11 k/uL Abs Baso 0.04 Performed By: #### CBCDIF, CMP, MG1 #### [facility] [address] [place] [address] COMP METABOLIC PANEL Collected: 05/13/2018 Status: F Source: [place] 7:12 PM [facility] OTHER CAMPUS REPOSITORY TYPE CODE TESTS RESULT OUT OF REFERENCE UNITS RANGE LAB TP 6.3-8.0 g/dL Protein, Total 6.8 LAB ALB 3.9-4.9 g/dL Albumin 3.9 LAB CA 8.5-10.2 mg/dL Calcium, Total 9.3 LAB TBIL 0.2-1.3 mg/dL Bilirubin, Total 0.3 LAB ALKP 36-108 U/L Alkaline Phosphatase 83 LAB AST 14-40 U/L AST 33 LAB GLU 74-99 mg/dL Glucose High 107 Result Comment: The [place] [employer] (ADA) provides guidance for cutoff values for fasting glucose and random glucose. The ADA defines fasting as no caloric intake for at least 8 hours. Fas ting plasma glucose results between 100 to 125 mg/dL indicate increased risk for diabetes (prediabetes). Fasting plasma glucose results greater than or equal to 126 mg/dL meet the criteria for diagnosis of diabetes. In the absence of unequivocal hyperglycemia, results should be confirmed by repeat testing. In a patient with classic symptoms of hyperglycemia or hyperglycemic crisis, random plasma glucose results greater than or equal to 200 mg/dL meet the criteria for diagnosis of diabetes. Reference: Standards of Medical Care in Diabetes 2016, [place] [employer] Association. Diabetes Care. 2016.39(Suppl 1). LAB BUN 9-24 mg/dL BUN 12 LAB CRET 0.73-1.22 mg/dL Creatinine 0.94 LAB NA 136-144 mmol/L Sodium 138 LAB K 3.7-5.1 mmol/L Potassium Low 3.5 LAB CL 97-105 mmol/L Chloride 100 LAB CO2 22-30 mmol/L CO2 22 LAB AGAP 9-18 mmol/L Anion Gap 16 LAB ALT 10-54 U/L ALT 40 LAB GFRAA eGFR- Amer. >60 LAB GFRNAA . eGFR-All Other Races >60 Result Comment: eGFR (Estimated GFR) Units of measure: mL/min/1.73 meters squared eGFR is derived from the reexpressed MDRD Study equation using the following parameters: serum creatinine, age, gender and race. The creatinine assay has been calibrated to be traceable to IDMS. An eGFR <60 mL/min/1.73m2 for >3 months is consistent with chronic kidney disease. Refer to KDOQI guidelines for clinical interpretation. In patients with unstable renal function, e.g. those with acute kidney injury, the eGFR may not accurately reflect actual GFR. Performed By: #### CBCDIF, CMP, MG1 #### [facility] [address] [place] [address] MAGNESIUM Collected: 05/13/2018 Status: F Source: [place] 7:12 PM [facility] OTHER CAMPUS REPOSITORY TYPE CODE TESTS RESULT OUT OF REFERENCE UNITS RANGE LAB MG 1.7-2.3 mg/dL Magnesium 2.0 Performed By: #### CBCDIF, CMP, MG1 #### [facility] [address] [place] [address] CK, TOTAL AND CKMB Collected: 05/13/2018 Status: F Source: [place] 7:12 PM [facility] OTHER CAMPUS REPOSITORY TYPE CODE TESTS RESULT OUT OF REFERENCE UNITS RANGE LAB CK 51-298 U/L 82 CK LAB MB <7.7 ng/mL MB 1.2 LAB CKMBRI 0.0-4.0 % CK CK MB MB % not % reported with CK <100 U/L. Performed By: #### CKCKMB #### [facility] [address] [facility] [phone] HIGH SENS TROPONIN T Collected: 05/13/2018 Status: F Source: [place] 7:12 PM [facility] OTHER [place] REPOSITORY TYPE CODE TESTS RESULT OUT OF REFERENCE UNITS RANGE LAB HSTN <12 ng/L High Sensitivity NARGIS <6 Result Comment: When assessing risk for acute coronary syndromes: In patients undergoing blood draw greater than or equal to 2 hours from symptom onset, with history of very low to moderate risk and non-ischemic ECG, an initial hs-Troponin T less than 12 ng/L AND a 1 hour delta hs-Troponin T less than 3 ng/L should be considered very low risk for 30 day MACE. Performed By: #### HSTNT #### [facility] [address] [facility] [phone] ED PROV NOTE Observed: 05/13/2018 Status: COMPLETED Source: [place] 7:04 PM [facility] OTHER [facility] REPOSITORY HNO ID: [id number] Author: Isma Jenkins ([place]) Service: Emergency Medicine Author Type: Physician Filler Machine Operator Type: ED Provider Notes Filed: 05/13/2018 9:17 PM Note Text: ED Provider Note Patient Name: Attila Del Cid SERVICE DATE: 05/13/18 History Patient presents with: Chest Pain Nausea Shortness of Breath 48 year old male with a past medical history of AAA, A. fib, on eliquis, hypertension, presents to the emergency department with a with a chief complaint of chest pain or shortness of breath that started 45 minutes ago. He also complains of nausea but no vomiting. He denies any cough, fever or chills, abdominal pain or back pain. Denies any diaphoresis or numbness in his hands. Denies any recent travel. He had surgery that removed his kidney stone about 10 days ago. Denies any fever or chills. Denies any headaches or confusion. PAST MEDICAL HISTORY Diagnosis Date - Acute right flank pain 03/25/2018 - Aneurysm of ascending aorta (HCC) - Aortic aneurysm (HCC) - Arthritis - Atrial fibrillation (HCC) - Calculi, ureter - Calculus of kidney - Hematuria - Hypertension - Kidney stones 03/25/2018 - Pneumonia - Psychiatric disorder anxiety PAST SURGICAL HISTORY Procedure Laterality Date - BACK SURGERY HX 2014 FUSION, L4-L5 - COLONOSCOP W/ OR W/O BRSH SPEC 05/14/2014 Colonoscopy - EGD W/O OR W/BRUSH/WASH 05/14/2014 EGD - FRAGMENTING/KIDNEY STONE Right 2017 Lithotripsy - KNEE SURGERY HX Right 03/2017 patella replacement - [place] ANESTH,KNEE JOINT; NOS 12/2017 Left FAMILY HISTORY Problem Relation Age of Onset - Diabetes Mother - Colon Cancer Mother - Heart disease Mother - Hypertension Mother - Diabetes Sister - Skin Cancer Father Social History Social History Main Topics - Smoking status: Never Smoker - Smokeless tobacco: Never Used - Alcohol use No - Drug use: No - Sexual activity: Not on file ALLERGIES Allergen Reactions - Celebrex [Celecoxib] Vomiting Nausea - Clonidine Rash - Fentanyl GI Upset - Levofloxacin Rash pt reports to [facility] PT 04-13-2017 - Penicillin G Rash - Relpax [Eletriptan * Vomiting Nausea - Topamax [Topiramate] Vomiting - Vicodin [Hydrocodon* Vomiting - Wellbutrin [Bupropi* Vomiting Nausea Review of Systems Constitutional: Negative for chills and fever. HENT: Negative for congestion, drooling, ear pain, mouth sores, sinus pressure, sore throat, tinnitus and trouble swallowing. Eyes: Negative for photophobia and visual disturbance. Respiratory: Positive for shortness of breath. Negative for cough, chest tightness and wheezing. Cardiovascular: Positive for chest pain. Negative for palpitations and leg swelling. Gastrointestinal: Positive for nausea. Negative for abdominal distention, anal bleeding, constipation and vomiting. Genitourinary: Negative for dysuria, flank pain and hematuria. Musculoskeletal: Negative for arthralgias, gait problem, neck pain and neck stiffness. Skin: Negative for color change. Neurological: Negative for dizziness, seizures and numbness. Psychiatric/Behavioral: Negative for agitation and confusion. The patient is not nervous/anxious. Physical Exam BP 145/96 Pulse 94 Temp (Src) 97.9 (Oral) Resp 20 Wt 245 lb (111.1kg) SpO2 100% Physical Exam Constitutional: He is oriented to person, place, and time. He appears well-developed and well-nourished. HENT: Head: Normocephalic and atraumatic. Head is without raccoon's eyes and without Green's sign. Right Ear: Hearing normal. Left Ear: Hearing normal. Nose: Right sinus exhibits no maxillary sinus tenderness and no frontal sinus tenderness. Left sinus exhibits no maxillary sinus tenderness and no frontal sinus tenderness. Eyes: Conjunctivae and EOM are normal. Neck: Normal range of motion. Neck supple. Cardiovascular: Normal rate. Pulmonary/Chest: Effort normal. No respiratory distress. He has no wheezes. He has no rales. He exhibits tenderness. Abdominal: Soft. Musculoskeletal: Normal range of motion. Neurological: He is alert and oriented to person, place, and time. He displays no atrophy and no tremor. He displays a negative Romberg sign. He displays no seizure activity. Gait normal. Skin: Skin is warm and dry. Psychiatric: He has a normal mood and affect. His behavior is normal. Diagnostic Testing ED Labs Ordered and Reviewed - No data to display CT CHEST W IVCON PE Final Result IMPRESSION: 1. No evidence of pulmonary emboli 2. Stable dilatation of the ascending thoracic aorta 3. No pleural effusion or consolidation 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: [employer] Transcribe Date/Time: May 13 2018 8:31P Dictated by : SHERIN RAYMOND MD This examination was interpreted and the report reviewed and electronically signed by: SHERIN RAYMOND MD on May 13 2018 8:36PM EST Results for orders placed or performed during the hospital encounter of 05/13/18 CBC + DIFF Result Value Ref Range WBC 7.98 3.70 - 11.00 k/uL RBC 5.20 4.20 - 6.00 m/uL Hemoglobin 14.1 13.0 - 17.0 g/dL Hematocrit 42.5 39.0 - 51.0 % MCV 81.7 80.0 - 100.0 fL MCH 27.1 26.0 - 34.0 pG MCHC 33.2 30.5 - 36.0 g/dL RDW-CV 14.9 11.5 - 15.0 % Platelet Count 333 150 - 400 k/uL MPV 8.9 (L) 9.0 - 12.7 fL Neut% 53.8 % Abs Neut (ANC) 4.30 1.45 - 7.50 k/uL Lymph% 33.1 % Abs Lymph 2.64 1.00 - 4.00 k/uL [place]% 11.3 % Abs [place] 0.90 (H) <0.87 k/uL Eosin% 1.3 % Abs Eosin 0.10 <0.46 k/uL Baso% 0.5 % Abs Baso 0.04 <0.11 k/uL MAGNESIUM BLD Result Value Ref Range Magnesium 2.0 1.7 - 2.3 mg/dL COMP METABOLIC PANEL Result Value Ref Range Protein, Total 6.8 6.3 - 8.0 g/dL Albumin 3.9 3.9 - 4.9 g/dL Calcium 9.3 8.5 - 10.2 mg/dL Bilirubin, Total 0.3 0.2 - 1.3 mg/dL Alkaline Phosphatase 83 36 - 108 U/L AST 33 14 - 40 U/L Glucose 107 (H) 74 - 99 mg/dL BUN 12 9 - 24 mg/dL Creatinine 0.94 0.73 - 1.22 mg/dL Sodium 138 136 - 144 mmol/L Potassium 3.5 (L) 3.7 - 5.1 mmol/L Chloride 100 97 - 105 mmol/L CO2 22 22 - 30 mmol/L Anion Gap 16 9 - 18 mmol/L ALT 40 10 - 54 U/L eGFR- >60 eGFR-All Other Races >60 . HIGH SENSITIVITY TROPONIN T Result Value Ref Range NARGIS High Sensitivity <6 <12 ng/L CK TOTAL AND CK-MB Result Value Ref Range CK 82 51 - 298 U/L MB 1.2 <7.7 ng/mL CK MB % CK MB % not reported with CK <100 U/L. 0.0 - 4.0 % HIGH SENSITIVITY TROPONIN T Result Value Ref Range NARGIS High Sensitivity <6 <12 ng/L Procedures ED Course / Clinical Impression Clinical Impressions as of May 13 2116 Chest pain, unspecified type (R07.9) Chest pain, unspecified type (primary encounter diagnosis) Comment: acute Plan: rest see pcp home pain meds see cardiology, return to ed if sx worsen MDM / Disposition / Plan The medical record is reviewed.Triage note is reviewed and incorporated. The nursing note is reviewed and consistent with patient's history and physical exam findings. The vital signs were reviewed the the vital signs are : BP 145/96 Pulse (!) 94 Temp 36.6 ?C (97.9 ?F) (Oral) Resp 20 Wt 111.1 kg (245 lb) SpO2 100% BMI 34.17 kg/m? ECG directly visualized and independently interpreted by me and attending physician showed : nsr with rate of 95, no STEMI CT directly visualized and independently interpreted by me as as well as radiologist showed : No evidence of pulmonary emboli. 2. Stable dilatation of the ascending thoracic aorta 3. No pleural effusion or consolidation MDM: This is a well-appearing male with a pmh of CAD, AAA, afib who presents to the ED with a chief complaint of sob and chest pain who is, afebrile , hemodynamically stable, in no acute distress patient whose symptoms are controlled in the ED with nitropaste, aspirin, and morphine, . Based on patient's pmh, chief complaint and physical exam findings, differential diagnoses include Aortic dissection vs PE, vs electrolyte imbalance, vs ACS vs pneumonia/pneumothorax vs tamponade vs esophageal rupture vs MSK. Labs and imaging studies reveal high sensitivity troponin within normal limits, repeat delta troponin within normal limits, CBC within normal limits, CMP with a potassium 3.5, rest of CMP unremarkable, CK-MB within normal limits. Based on patient's physical exam findings, clinical picture, lab results and imaging studies that were performed here today in the ED, at this time, the following differential diagnoses such as mi is less likely due to unremarkable trop and ecg. The following differential diagnosis such as pe is less likely due to unremarkable ct.The following differential diagnosis such as aortic dissection is less likely due to unremarkable ct.The following differential diagnosis such as pneumonia/pneumothorax is less likely due to unremarkable cxr. The patient has remained hemodynamically stable throughout the entire ED visit and is without objective evidence for acute process requiring urgent intervention or hospitalization. The patient and/or family had all the tests and diagnosis explained to them and were given both verbal and written discharge instructions. I answered the patient's question as well as family to the best of my ability. The patient is stable for discharge, and pt is instructed to follow up with pcp and educated to return to ed if sx worsen or any new symptoms. Pt agreeable with plan. At this time, based on the patient's history, physical exam findings, lab results and clinical picture , the most likely diagnosis is chest pain ,nos Pt educated on the most common causes of Chest pain, nos Pt instructed to follow up with PCP in 1-2 days Discharge care instructions, medications, follow up instructions, and reasons to return to the ED immediately, such as worsening of symptoms or any new symptoms, were provided verbally and in writing to patient (patient guardian / industrial relations representative), who verbalized understanding. This note was partially generated using [employer] recognition system, and there may be some incorrect words, spellings, and punctuation that were not noted in checking the note before saving The patient was DISCHARGED: Counseled patient and family regarding lab results AND radiology results AND suspected diagnosis AND need for follow-up. Discharged home with verbal and written instructions. They were instructed to return as needed for persistent or worsening symptoms or any new concerns. Condition at time of disposition: stable SIGNATURE: KEYLA Gagnon (Pa) 05/13/182116 ED NOTE Observed: 05/13/2018 Status: COMPLETED Source: [place] 6:38 PM [facility] REPOSITORY HNO ID: [id number] Author: Jonah AminRn) ALE Tobias Service: (none) Author Type: Registered Nurse Type: ED Notes Filed: 05/13/2018 6:39 PM Note Text: Pt presents toED with c/o chest pain and sob as well as nausea that all began about 30min prior to arrival. Pt denies any radiating pain. Plan of care -Monitor Patient's Vital Signs for changes in condition -Monitor patient for changes in pain -Maintain patient safety and privacy -Provide comfort measures -Call light in place Siderails up, bed in locked and low position EKG Observed: 05/13/2018 Status: F Source: [place] 6:33 PM [facility] REPOSITORY NAME : ATTILA DEL CID PID : [id number] : 1970 Gender : Male Race : ORD : [id number] Procedure Date : May 13 2018 18:33:19 Edit Date : May 14 2018 08:26:45 Diagnosis:NORMAL SINUS RHYTHM NORMAL ECG NO PREVIOUS ECGS AVAILABLE Confirmed by MD Stroud Qarab ([id number]) on 05/14/2018 8:26:38 AM Ventricular Rate : 95 BPM Atrial Rate : 95 BPM P-R Interval : 148 ms QRS Duration : 84 ms Q-T Interval : 344 ms QTC Calculation(Bezet) : 432 ms P Greenwood : -9 degrees R Greenwood : 6 degrees T Greenwood : 12 degrees Test Reason : Chest Pain Location : 1 : ER ED Overread By : MD Stroud Qarab Edited By : MD Stroud Qarab Referred By : , Acquired by : SP, EMERGENCY DEPARTMENT Observed: 05/08/2018 Status: F Source: [facility] 10:32 AM [facility] REPOSITORY [facility] Medical Records Department [address] [place] [address] Emergency Department Summary 05/07/18 2329 MR#: [id number] Acct: [id number] Name: ATTILA DEL CID Rep #: [id number] : 1970 48 From: Diana Mays MD PCP: Nyla Bearden MD Status: DEP ER - ER Visit Summary Date of Service: 05/07/18 Chief Complaint: Right flank pain History of Present Illness: The patient is a 48 M who had a had kidney stones removed from the right side on May 01 and had a ureteral stent placed the following day. His procedure was done [facility] with Dr. Perez. Patient states he had increased pain over the past 3 days. He has had nausea and vomiting. He is currently out of his Percocet. Patient went to an urgent care yesterday and was given Keflex and Pyridium for infection coverage. Patient states he has had some mild chills but no measured fever. Physical Examination: Vital signs are unremarkable. Patient sitting upright in bed no acute distress. He does appear uncomfortable. Head and neck examination unremarkable. Heart is regular rate and rhythm. Lung sounds are clear. Abdomen is soft with mild right-sided tenderness. He does have right-sided CVA tenderness. Test Results: CBC and chemistry studies significant only for potassium slightly low at 3.4. Urinalysis shows blood but no sign of infection. CT flank shows right renal stones. There is a double-J right ureteral stent in place. There is mild right hydronephrosis. No ureteral stones are visualized. Emergency Department Course and Treatment: Patient was treated with Dilaudid, Zofran, Toradol, and fluids. On repeat evaluation he is resting much more comfortably. He will be given a prescription for Percocet. Patient wishes to follow-up with the urologist here locally as he does have additional stones noted in the right kidney. He is referred to Dr. Moreira. Treatment Plan: [] Disposition: Discharge Impression: Right flank pain with recent ureteral stent placement This note was generated with [employer]ation software. It may contain incorrect words, spelling, and punctuation that were not noted in review of the chart prior to signing ED Disposition - Plan for ED Patient: Disposition: Home or Assisted Living Chief Complaint: Complaint Prescriptions: Oxycodone HCl/Acetaminophen [Percocet 5/325] 1 tablet PO Q6H PRN PRN 5 Days #20 tablet PRN Reason: Pain Referrals: Darwin Moreira MD [STAFF PHYSICIAN] - As Needed Additional Instructions: Your labwork, urine tests, and CT scan show that your stent is in good position. There is no sign of urinary infection and your renal function is normal. I believe your pain is due to spasm around the stent. What to do if you have Problems For any increased pain, shortness of breath, bleeding, nausea or vomiting, chest pain, or any unexpected problems, contact your Primary Care Provider. Call [facility] ([phone]) or report to the closest Emergency Room. Call 911 if necessary. 05/08/18 1032 <Electronically signed by Diana Mays MD> Date Diana Mays MD Cosigner Signature (If Indicated): Date CC: Nyla Bearden MD DISCHARGE INSTRUCTION Observed: 05/07/2018 Status: F Source: [place] 11:32 PM [facility] REPOSITORY [facility] Medical Records Department [address] [place] [address] Discharge Instruction 05/07/18 2329 MR#: [id number] Acct: [id number] Name: ATTILA DEL CID Rep #: [id number] : 1970 48 From: Diana Mays MD PCP: Nyla Bearden MD Status: [facility] ER ED Disposition - Plan for ED Patient: Disposition: Home or Assisted Living Chief Complaint: Complaint Prescriptions: Oxycodone HCl/Acetaminophen [Percocet 5/325] 1 tablet PO Q6H PRN PRN 5 Days #20 tablet PRN Reason: Pain Referrals: Darwin Moreira MD [STAFF PHYSICIAN] - As Needed Additional Instructions: Your labwork, urine tests, and CT scan show that your stent is in good position. There is no sign of urinary infection and your renal function is normal. I believe your pain is due to spasm around the stent. What to do if you have Problems For any increased pain, shortness of breath, bleeding, nausea or vomiting, chest pain, or any unexpected problems, contact your Primary Care Provider. Call [facility] ([phone]) or report to the closest Emergency Room. Call 911 if necessary. 05/07/18 3760 <Electronically signed by Diana Mays MD> Date Diana Mays MD Cosigner Signature (If Indicated): Date CC: Nyla Bearden MD CBC W/DIFF, AUTOMATED Collected: 05/07/2018 Status: F Source: [place] 9:18 PM [facility] REPOSITORY TYPE CODE TESTS RESULT OUT OF RANGE REFERENCE UNITS LAB L100.1000 4.4-11.0 K/mm3 Normal WBC 7.4 LAB L100.1200 4.6-6.2 M/mm3 Normal RBC 5.17 LAB L100.1300 13.0-16.5 g/dl Normal HGB 13.9 LAB L100.1400 40-54 % Normal HCT 42.1 LAB L100.1500 80-94 fL Normal MCV 81.4 LAB L100.1600 27.0-32.0 pg Low MCH 26.9 LAB L100.1700 32-36 g/gl Normal MCHC 33.0 LAB L100.1810 11.6-14.6 % Normal RDW CV 14.4 LAB L100.1820 35.1-43.9 fl Normal RDW SD 42.5 LAB L100.1900 150-450 K/mm3 Normal PLT 277 LAB L100.2000 6.2-12.0 fl Normal MPV 8.6 LAB L100.2100 47-70 % Normal NEUT% 52.8 LAB L100.2200 19-41 % Normal LY% 34.2 LAB L100.2300 0-10 % High MONO% 10.9 LAB L100.2400 0-5 % Normal EO% 1.5 LAB L100.2500 0-1 % Normal BASO% 0.3 LAB L100.2550 0.0-0.9 % Normal IM GRAN % 0.300 Result Comment: IG% - Immature Granulocytes (promyelocytes, myelocytes and metamyelocytes) > 1% indicates that a LEFT SHIFT is Present. LAB L100.2620 2.0-7.7 X10 3/uL Normal Absolute Neut 3.9 LAB L100.2720 0.83-4.51 X10 3/ul Normal Absolute Lymph 2.54 Performed By: #### L100.0100 #### [facility] [address] [place], [address] BASIC METABOLIC Collected: 05/07/2018 Status: F Source: [place] PROFILE ([facility]) 9:18 PM [facility] REPOSITORY TYPE CODE TESTS RESULT OUT OF RANGE REFERENCE UNITS LAB L501.0100 74-106 mg/dL Normal GLU 89 Result Comment: Please note revised GLUCOSE reference range effective 2017. LAB L501.1000 7-18 mg/dL Normal BUN 12 LAB L501.1100 0.70-1.30 mg/dL Normal CREAT,SERUM 0.88 Result Comment: The validity of the calculated GFR AND GFRAA in patients over 70 years has not been determined. Clinical correlation is essential. LAB L501.1110 >60 mL/min Normal EST GFR 98 Result Comment: Non- GFR Calc LAB L501.1115 >60 mL/min Normal EST GFR - AA 118 Result Comment: GFR Calc LAB L501.1255 ml/min Normal Estimated CRCL 109.34 LAB L501.1300 10-20 RATIO BUN/CRE Normal 13.6 LAB L501.2200 8.5-10 mg/dL .1 CA Normal 8.7 LAB L501.5300 136-14 mmol/L 5 NA Normal 138 LAB L501.5600 3.5-5. mmol/L Low 1 K 3.4 LAB L501.5900 98-107 mmol/L CL Normal 107 LAB L501.6100 21.0-3 mmol/L 2.0 CO2 Normal 23.0 LAB L501.6200 5-15 GAP Normal 8 Performed By: #### L500.2500 #### [facility] [address] [place], [address] URINALYSIS, COMPLETE Collected: 05/07/2018 Status: F Source: [place] 9:12 PM [facility] REPOSITORY Order Comment: How was Urine Obtained? CLEAN CATCH TYPE CODE TESTS RESULT OUT OF RANGE REFERENCE UNITS LAB L400.3000 Yellow COLOR Normal Yellow LAB L400.3050 Clear Normal CLARITY Clear LAB L400.3200 Normal mg/dl Normal GLUCOSE, UR Normal LAB L400.3300 Negative mg/dL Normal BILIRUBIN URINE Negative LAB L400.3400 Negative mg/dl Normal KETONE UR Negative LAB L400.3465 1.002-1.030 Normal SP.GR. DIPSTX 1.015 LAB L400.3550 5.0 - 8.0 pH UR Normal 9.0 LAB L400.3600 Negative mg/dl High PROT 15 DIPSTX LAB L400.3700 Normal mg/dl Normal UROBILI Normal LAB L400.3750 Negative Normal NITRITE UR Negative LAB L400.3780 Negative /ul High OCCULT BLOOD-UR 250 LAB L400.3800 Negative /ul LEUK Normal ESTERASE Negative LAB L400.4050 0-5 /hpf WBC 0 Normal SEEN LAB L400.4100 0-5 /hpf Normal RBC-UA 5-10 SEEN LAB L400.4150 0-5 /hpf SQUAM 0 Normal EPI SEEN LAB L400.4300 None Seen /hpf 0 Normal BACTERIA SEEN LAB L400.4350 <or=2+ /hpf 0 Normal MUCUS, URINE SEEN Performed By: #### L400.0001 #### [facility] [address] [place], [address] ABDOMEN/PELVIS WITHOUT Observed: 05/07/2018 Status: F Source: [place] CONT 9:07 PM [facility] REPOSITORY [facility] Imaging Services [address] [place] [address] Abdomen/Pelvis without Cont MR#: [id number] Acct: [id number] Name: ATTILA DEL CID Rep #: [id number] : 1970 M 48 From: Freddy Contreras MD PCP: Nyla Bearden MD Status: REG ER Study: Abdomen/Pelvis without Cont Date of Exam: 05/07/18 Exam# [id number] Ordering Dr: Diana Mays MD STUDY: CT ABDOMEN AND PELVIS WITHOUT CONTRAST REASON FOR EXAM: Male, 48 years old. Rt sided abd pain, increased urination RADIATION DOSAGE (If Supplied By Facility): CTDIvol = ( 19.34 ) mGy, DLP = ( 1126.03 ) mGycm TECHNIQUE: Transaxial images were obtained from the dome of the diaphragm to the symphysis pubis without oral contrast, and without intravenous contrast. Sagittal and coronal images were reconstructed. Individualized dose optimization techniques were used for this CT. COMPARISON: 03.21.18 FINDINGS: The visualized lung bases are unremarkable. The visualized portions of the heart are within normal limits. Normal liver. Normal gallbladder and extrahepatic biliary system. Normal spleen. Normal pancreas. Normal bilateral adrenal glands. 3.2 mm mid right calyceal and 4.1 mm inferior calyceal right renal stones. Double-J right ureteral stent in place. Mild right hydronephrosis. Normal left kidney. Normal visualized stomach. Normal small intestine. Normal colon. The appendix is visualized and appears normal. There is diffuse atherosclerotic calcification of the abdominal aorta, without a demonstrated aneurysm. Normal inferior vena cava. Normal retroperitoneum. Normal urinary bladder. There are prostatic calcifications. There are bilateral inguinal hernias containing fat. There is no bowel involvement. There is no incarceration. There is no findings suggesting that this is causing a bowel obstruction. Spinal fixation hardware visualized at L4-5. CT/Abdomen/Pelvis without Cont IMPRESSION: 3.2 mm mid right calyceal and 4.1 mm inferior calyceal right renal stones. Double-J right ureteral stent in place. Mild right hydronephrosis. No ureteral stones visualized. Electronically Signed: Freddy Contreras MD at 22:06 EDT , Service support , CC: Nyla Bearden MD; Diana Mays MD 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: Signed PROGRESS Observed: 05/06/2018 Status: COMPLETED Source: [place] 9:01 PM [facility] REPOSITORY HNO ID: [id number] Author: Alexus Moore) Amari Service: (none) Author Type: Nurse Practitioner Type: Progress Notes Filed: 05/07/2018 8:42 AM Note Text: Subjective HPI Pt presents with UTI symptoms x 2 days, frequency and burning. States hx of kidney stones, with treatment last week by urology. Stent placed 05/02/18. Review of Systems Constitutional: Negative for chills, fever and malaise/fatigue. Gastrointestinal: Negative for abdominal pain, diarrhea, nausea and vomiting. Genitourinary: Positive for dysuria, flank pain (mild right side, states has had this discomfort since prior to stent placement) and frequency. Negative for hematuria. Denies exposure to STD Musculoskeletal: Negative for back pain. All other systems reviewed and are negative. PAST MEDICAL HISTORY Diagnosis Date - Acute right flank pain 03/25/2018 - Aneurysm of ascending aorta (HCC) - Aortic aneurysm (HCC) - Arthritis - Atrial fibrillation (HCC) - Calculi, ureter - Calculus of kidney - Hematuria - Hypertension - Kidney stones 03/25/2018 - Pneumonia - Psychiatric disorder anxiety PAST SURGICAL HISTORY Procedure Laterality Date - BACK SURGERY HX 2015 FUSION, L4-L5 - COLONOSCOP W/ OR W/O BRSH SPEC 05/14/2014 Colonoscopy - EGD W/O OR W/BRUSH/WASH 05/14/2014 EGD - FRAGMENTING/KIDNEY STONE Right 2017 Lithotripsy - KNEE SURGERY HX Right 03/2017 patella replacement - [place] ANESTH,KNEE JOINT; NOS 12/2017 Left ALLERGIES Celebrex [Celecoxib]; Clonidine; Fentanyl; Levofloxacin; Penicillin G; Relpax [Eletriptan Hbr]; Topamax [Topiramate]; Vicodin [Hydrocodone-Acetaminophen]; Wellbutrin [Bupropion Hcl] MEDICATIONS docusate sodium (COLACE) 100 mg capsule Take 1 capsule by mouth twice daily as needed. flecainide (TAMBOCOR) 100 mg tablet Take 100 mg by mouth twice daily. amLODIPine (NORVASC) 5 mg tablet Take 5 mg by mouth once daily. BABY ASPIRIN ORAL Take 1 tablet by mouth once daily. tamsulosin ER (FLOMAX) 0.4 mg cp24 every day acetaminophen 325 mg-caffeine 40 mg-butalbital 50 mg (FIORICET) per tablet gabapentin (NEURONTIN) 300 mg capsule apixaban (ELIQUIS) 5 mg tab tab(s) Take by mouth twice daily. sertraline (ZOLOFT) 100 mg tablet 200 mg. carvedilol (COREG) 25 mg tablet Take 1 tablet by mouth twice daily with meals. busPIRone HCl 7.5 mg tablet Take 7.5 mg by mouth twice daily. (RX given Sept and has 2 more refills) meclizine (ANTIVERT) 12.5 mg tab Take 2 tablets by mouth twice daily as needed. lisinopril (ZESTRIL, PRINIVIL) 20 mg tablet Take 1 tablet by mouth once daily. pantoprazole DR (PROTONIX) 40 mg tablet Take 1 tablet by mouth once daily. albuterol HFA (PROVENTIL HFA, VENTOLIN HFA) 90 mcg/actuation inhaler Inhale 2 Puffs as instructed every 4 hours as needed. ibuprofen (MOTRIN) 600 mg tablet Take 1 tablet by mouth every 6 hours as needed for Pain or Fever. promethazine (PHENERGAN) 25 mg tablet Take 25 mg by mouth every 6 hours as needed. cephALEXin (KEFLEX) 500 mg capsule Take 1 capsule by mouth twice daily for 10 days. FOR 10 DAYS phenazopyridine (PYRIDIUM) 200 mg tablet TO BE TAKEN DIRECTED BY MOUTH ONE(1) TABLET THREE TIMES DAILY X 2 DAYS rOPINIRole (REQUIP) 1 mg tablet Take 1 tablet by mouth daily at bedtime. For restless legs FAMILY HISTORY Problem Relation Age of Onset - Diabetes Mother - Colon Cancer Mother - Heart disease Mother - Hypertension Mother - Diabetes Sister - Skin Cancer Father Social History Substance Use Topics - Smoking status: Never Smoker - Smokeless tobacco: Never Used - Alcohol use No Objective Physical Exam Constitutional: He is well-developed, well-nourished, and in no distress. HENT: Head: Normocephalic. Eyes: Conjunctivae are normal. Neck: Normal range of motion. Cardiovascular: Normal rate, regular rhythm and normal heart sounds. Pulmonary/Chest: Effort normal and breath sounds normal. Abdominal: Soft. He exhibits no distension. There is no tenderness. There is CVA tenderness (mild right). There is no rebound and no guarding. Skin: Skin is warm and dry. No rash noted. Nursing note and vitals reviewed. ASSESSMENT/PLAN: 1. Urinary frequency - ICD9: 788.41, ICD10: R35.0 (primary diagnosis) Acute - Afebrile - Mild CVA tenderness - STRONG RECOMMENDATION TO CONTACT UROLOGY FOR F/U YURI, IF SYMPTOMS WORSEN GO DIRECTLY TO ED. - verbalized understanding. - UA positive for josef esterase, hematuria and proteinuria - Send urine for culture - Begin treatment with Keflex for 10 days - Patient education for prevention given - UA DIP B/O - URINE CULTURE 2. Burning with urination - ICD9: 788.1, ICD10: R30.0 acute - Patient education for prevention given - UA DIP B/O - URINE CULTURE Prescription instructions reviewed with patient as applicable. Patient advised if symptoms do not improve or if symptoms worsen sooner, to contact their primary care physician. Potential red flag symptoms discussed with the patient. Reviewed appropriate action plan to take if red flag symptoms occur. Patient agreeable to treatment plan. Alexus Fitzpatrick APRN.SECRETARY [employer] COMMISSIONERS Observed: 05/06/2018 Status: F Source: [place] URINE CULTURE 7:50 PM [facility] REPOSITORY Sp. Request/Comment: - Specimen received in preservative Culture Result - No growth (<1,000 CFU/ml) Performed By: #### URCUL #### [facility] [address] [address] CNOV Observed: 05/06/2018 Status: COMPLETED Source: [place] 7:30 PM [facility] REPOSITORY Office Visit ([facility]) ATTILA DEL CID ([id number]) 1970 M T Date Time Provider Department 05/06/18 7:30 PM ALEXUS FITZPATRICK (CAREER TECHNICAL SUPERVISOR) [facility] During your visit today, we recorded the following information about you: Temperature Pulse Respiration Blood pressure 98.6 degrees 80/minute 18/minute 118/80 Weight 110.2 kg Alexus Fitzpatrick APRN.CNP 05/07/2018 8:42 AM Signed Subjective HPI Pt presents with UTI symptoms x 2 days, frequency and burning. States hx of kidney stones, with treatment last week by urology. Stent placed 05/02/18. Review of Systems Constitutional: Negative for chills, fever and malaise/fatigue. Gastrointestinal: Negative for abdominal pain, diarrhea, nausea and vomiting. Genitourinary: Positive for dysuria, flank pain (mild right side, states has had this discomfort since prior to stent placement) and frequency. Negative for hematuria. Denies exposure to STD Musculoskeletal: Negative for back pain. All other systems reviewed and are negative. PAST MEDICAL HISTORY Diagnosis Date - Acute right flank pain 03/25/2018 - Aneurysm of ascending aorta (HCC) - Aortic aneurysm (HCC) - Arthritis - Atrial fibrillation (HCC) - Calculi, ureter - Calculus of kidney - Hematuria - Hypertension - Kidney stones 03/25/2018 - Pneumonia - Psychiatric disorder anxiety PAST SURGICAL HISTORY Procedure Laterality Date - BACK SURGERY HX 2015 FUSION, L4-L5 - COLONOSCOP W/ OR W/O BRSH SPEC 05/14/2014 Colonoscopy - EGD W/O OR W/BRUSH/WASH 05/14/2014 EGD - FRAGMENTING/KIDNEY STONE Right 2017 Lithotripsy - KNEE SURGERY HX Right 03/2017 patella replacement - [place] ANESTH,KNEE JOINT; NOS 12/2017 Left ALLERGIES Celebrex [Celecoxib]; Clonidine; Fentanyl; Levofloxacin; Penicillin G; Relpax [Eletriptan Hbr]; Topamax [Topiramate]; Vicodin [Hydrocodone-Acetaminophen]; Wellbutrin [Bupropion Hcl] MEDICATIONS docusate sodium (COLACE) 100 mg capsule Take 1 capsule by mouth twice daily as needed. flecainide (TAMBOCOR) 100 mg tablet Take 100 mg by mouth twice daily. amLODIPine (NORVASC) 5 mg tablet Take 5 mg by mouth once daily. BABY ASPIRIN ORAL Take 1 tablet by mouth once daily. tamsulosin ER (FLOMAX) 0.4 mg cp24 every day acetaminophen 325 mg-caffeine 40 mg-butalbital 50 mg (FIORICET) per tablet gabapentin (NEURONTIN) 300 mg capsule apixaban (ELIQUIS) 5 mg tab tab(s) Take by mouth twice daily. sertraline (ZOLOFT) 100 mg tablet 200 mg. carvedilol (COREG) 25 mg tablet Take 1 tablet by mouth twice daily with meals. busPIRone HCl 7.5 mg tablet Take 7.5 mg by mouth twice daily. (RX given Sept and has 2 more refills) meclizine (ANTIVERT) 12.5 mg tab Take 2 tablets by mouth twice daily as needed. lisinopril (ZESTRIL, PRINIVIL) 20 mg tablet Take 1 tablet by mouth once daily. pantoprazole DR (PROTONIX) 40 mg tablet Take 1 tablet by mouth once daily. albuterol HFA (PROVENTIL HFA, VENTOLIN HFA) 90 mcg/actuation inhaler Inhale 2 Puffs as instructed every 4 hours as needed. ibuprofen (MOTRIN) 600 mg tablet Take 1 tablet by mouth every 6 hours as needed for Pain or Fever. promethazine (PHENERGAN) 25 mg tablet Take 25 mg by mouth every 6 hours as needed. cephALEXin (KEFLEX) 500 mg capsule Take 1 capsule by mouth twice daily for 10 days. FOR 10 DAYS phenazopyridine (PYRIDIUM) 200 mg tablet TO BE TAKEN DIRECTED BY MOUTH ONE(1) TABLET THREE TIMES DAILY X 2 DAYS rOPINIRole (REQUIP) 1 mg tablet Take 1 tablet by mouth daily at bedtime. For restless legs FAMILY HISTORY Problem Relation Age of Onset - Diabetes Mother - Colon Cancer Mother - Heart disease Mother - Hypertension Mother - Diabetes Sister - Skin Cancer Father Social History Substance Use Topics - Smoking status: Never Smoker - Smokeless tobacco: Never Used - Alcohol use No Objective Physical Exam Constitutional: He is well-developed, well-nourished, and in no distress. HENT: Head: Normocephalic. Eyes: Conjunctivae are normal. Neck: Normal range of motion. Cardiovascular: Normal rate, regular rhythm and normal heart sounds. Pulmonary/Chest: Effort normal and breath sounds normal. Abdominal: Soft. He exhibits no distension. There is no tenderness. There is CVA tenderness (mild right). There is no rebound and no guarding. Skin: Skin is warm and dry. No rash noted. Nursing note and vitals reviewed. ASSESSMENT/PLAN: 1. Urinary frequency - ICD9: 788.41, ICD10: R35.0 (primary diagnosis) Acute - Afebrile - Mild CVA tenderness - STRONG RECOMMENDATION TO CONTACT UROLOGY FOR F/U YURI, IF SYMPTOMS WORSEN GO DIRECTLY TO ED. - verbalized understanding. - UA positive for josef esterase, hematuria and proteinuria - Send urine for culture - Begin treatment with Keflex for 10 days - Patient education for prevention given - UA DIP B/O - URINE CULTURE 2. Burning with urination - ICD9: 788.1, ICD10: R30.0 acute - Patient education for prevention given - UA DIP B/O - URINE CULTURE Prescription instructions reviewed with patient as applicable. Patient advised if symptoms do not improve or if symptoms worsen sooner, to contact their primary care physician. Potential red flag symptoms discussed with the patient. Reviewed appropriate action plan to take if red flag symptoms occur. Patient agreeable to treatment plan. Alexus Fitzpatrick, ANALY.SECRETARY BO[employer] COMMISSIONERS Referring Provider: SELF [200] Allergies As of Date: 05/06/2018 Noted Allergy Reaction CELEBREX (CELECOXIB) 07/17/2016 11 - Vomiting Comments: Nausea CLONIDINE 07/17/2016 2 - Rash FENTANYL 07/17/2016 8 - GI Upset LEVOFLOXACIN 04/13/2017 2 - Rash Comments: pt reports to [facility] PT 6--2017 PENICILLIN G 12/30/2013 2 - Rash RELPAX (ELETRIPTAN HBR) 07/17/2016 11 - Vomiting Comments: Nausea TOPAMAX (TOPIRAMATE) 07/17/2016 11 - Vomiting VICODIN (HYDROCODONE-ACETAMINOPHE*12/30/2013 11 - Vomiting WELLBUTRIN (BUPROPION HCL) 07/17/2016 11 - Vomiting Comments: Nausea Date Reviewed: 05/06/2018 Reviewed by: Alexus Merino (Vp Product Management) Amari - Fully Assessed Primary Visit Diagnosis:Urinary frequency [R35.0] Other Visit Diagnosis:Burning with urination [R30.0] Order(s):UA DIP B/O [[id number]] Order #: [id number] URINE CULTURE [SQURCUL] Order #: [id number] cephALEXin (KEFLEX) 500 mg capsuleTake 1 capsule by mouth twice daily for 10 days. FOR 10 DAYSDisp: 20 capsuleRfl: 0 phenazopyridine (PYRIDIUM) 200 mg tabletTO BE TAKEN DIRECTED BY MOUTH ONE(1) TABLET THREE TIMES DAILY X 2 DAYSDisp: 6 tabletRfl: 0 Prescriptions as of 05/06/2018 Sig: DOCUSATE SODIUM 100 MG CAPSULE Take 1 capsule by mouth twice* FLECAINIDE 100 MG TABLET Take 100 mg by mouth twice da* AMLODIPINE 5 MG TABLET Take 5 mg by mouth once daily. BABY ASPIRIN ORAL Take 1 tablet by mouth once d* TAMSULOSIN 0.4 MG CAPSULE every day [id number]* GABAPENTIN 300 MG CAPSULE APIXABAN 5 MG TABLET Take by mouth twice daily. SERTRALINE 100 MG TABLET 200 mg. CARVEDILOL 25 MG TABLET Take 1 tablet by mouth twice * BUSPIRONE 7.5 MG TABLET Take 7.5 mg by mouth twice da* MECLIZINE 12.5 MG TABLET Take 2 tablets by mouth twice* LISINOPRIL 20 MG TABLET Take 1 tablet by mouth once d* PANTOPRAZOLE 40 MG TABLET,DEL* Take 1 tablet by mouth once d* ALBUTEROL SULFATE HFA 90 MCG/* Inhale 2 Puffs as instructed * IBUPROFEN 600 MG TABLET Take 1 tablet by mouth every * PROMETHAZINE 25 MG TABLET Take 25 mg by mouth every 6 h* CEPHALEXIN 500 MG CAPSULE Take 1 capsule by mouth twice* PHENAZOPYRIDINE 200 MG TABLET TO BE TAKEN DIRECTED BY MO* OXYCODONE-ACETAMINOPHEN 5 MG-* Take 1 tablet by mouth every * Patient not taking: Reported on 05/06/2018 ROPINIROLE 1 MG TABLET Take 1 tablet by mouth daily * Patient not taking: Reported on 04/16/2018 Problem List As Of Date 05/06/2018 Noted Resolved Primary osteoarthritis of right knee [M17.11] INVALID FOR* Chest pain at rest [R07.9] INVALID FOR* HTN (hypertension) [I10] INVALID FOR* Atrial fibrillation (HCC) [I48.91] INVALID FOR* More... Atypical chest pain [R07.89] INVALID FOR* Patellofemoral instability of right knee with p*INVALID FOR* Kidney stones [N20.0] INVALID FOR* Acute right flank pain [R10.9] INVALID FOR* Ectatic thoracic aorta (HCC) [I77.810] INVALID FOR* More... Renal calculus, right [N20.0] INVALID FOR* Prescriptions ordered this encounter Disp Refills Start End CEPHALEXIN 500 MG CAPSULE 20 c* 0 05/06/2018 05/16/2018 Route: ORAL Sig: Take 1 capsule by mouth twice daily for 10 days. FOR 10 DAYS PHENAZOPYRIDINE 200 MG TABLET 6 ta* 0 05/06/2018 Sig: TO BE TAKEN DIRECTED BY MOUTH ONE(1) TABLET THREE TIMES DAILY X 2 DAYS Disposition: Return if symptoms worsen or fail to improve. Follow-up and Disposition History Recorded Encounter Status:Closed by ALEXUS FITZPATRICK on 05/07/18 OHN Observed: 05/05/2018 Status: COMPLETED Source: [place] 12:00 AM CLINIC OTHER CAMPUS REPOSITORY Telephone (AKURFL) ATTILA DEL CID ([id number]) 1970 [facility] Date Time Provider Department 05/05/18 CAMRON PEREZ AKURF During your visit today, we recorded the following information about you: Andrew Singh CMA 05/05/2018 11:00 AM Signed Pt called stated stent placed by Dr Morales, Pt is having burning with urination, I have advised pt to increase water, Pt stated he has a lot of blood and blood clots in his urine and is very worried something could be wrong.Please advise. Andrew Perez MD 05/05/2018 12:42 PM Signed normal to have bleeding. Reassurance. The blood will be off and on as long as the stent is in. Andrew Singh CMA 05/05/2018 1:00 PM Signed Called pt left message of call below advise pt to call with any other questions. Andrew Singh CMA Allergies As of Date: 05/05/2018 Noted Allergy Reaction CELEBREX (CELECOXIB) 07/17/2016 11 - Vomiting Comments: Nausea CLONIDINE 07/17/2016 2 - Rash FENTANYL 07/17/2016 8 - GI Upset LEVOFLOXACIN 04/13/2017 2 - Rash Comments: pt reports to [facility] PT 04-13-2017 PENICILLIN G 12/30/2013 2 - Rash RELPAX (ELETRIPTAN HBR) 07/17/2016 11 - Vomiting Comments: Nausea TOPAMAX (TOPIRAMATE) 07/17/2016 11 - Vomiting VICODIN (HYDROCODONE-ACETAMINOPHE*12/30/2013 11 - Vomiting WELLBUTRIN (BUPROPION HCL) 07/17/2016 11 - Vomiting Comments: Nausea Date Reviewed: 05/02/2018 Reviewed by: Linda AminRn) ALE Low - Fully Assessed Reason for Visit: Hematuria [335] Prescriptions as of 05/05/2018 Sig: DOCUSATE SODIUM 100 MG CAPSULE Take 1 capsule by mouth twice* FLECAINIDE 100 MG TABLET Take 100 mg by mouth twice da* AMLODIPINE 5 MG TABLET Take 5 mg by mouth once daily. BABY ASPIRIN ORAL Take 1 tablet by mouth once d* OXYCODONE-ACETAMINOPHEN 5 MG-* Take 1 tablet by mouth every * TAMSULOSIN 0.4 MG CAPSULE every day LKLOMIRDSL-MVVWEKENNIADA-DGNG* GABAPENTIN 300 MG CAPSULE APIXABAN 5 MG TABLET Take by mouth twice daily. SERTRALINE 100 MG TABLET 200 mg. CARVEDILOL 25 MG TABLET Take 1 tablet by mouth twice * BUSPIRONE 7.5 MG TABLET Take 7.5 mg by mouth twice da* MECLIZINE 12.5 MG TABLET Take 2 tablets by mouth twice* LISINOPRIL 20 MG TABLET Take 1 tablet by mouth once d* ROPINIROLE 1 MG TABLET Take 1 tablet by mouth daily * Patient not taking: Reported on 04/16/2018 PANTOPRAZOLE 40 MG TABLET,DEL* Take 1 tablet by mouth once d* ALBUTEROL SULFATE HFA 90 MCG/* Inhale 2 Puffs as instructed * IBUPROFEN 600 MG TABLET Take 1 tablet by mouth every * PROMETHAZINE 25 MG TABLET Take 25 mg by mouth every 6 h* Problem List As Of Date 05/05/2018 Noted Resolved Primary osteoarthritis of right knee [M17.11] INVALID FOR* Chest pain at rest [R07.9] INVALID FOR* HTN (hypertension) [I10] INVALID FOR* Atrial fibrillation (HCC) [I48.91] INVALID FOR* More... Atypical chest pain [R07.89] INVALID FOR* Patellofemoral instability of right knee with p*INVALID FOR* Kidney stones [N20.0] INVALID FOR* Acute right flank pain [R10.9] INVALID FOR* Ectatic thoracic aorta (HCC) [I77.810] INVALID FOR* More... Renal calculus, right [N20.0] INVALID FOR* Encounter Status:Closed by ANDREW SINGH CMA on 05/05/18 OPERATIVE NO Observed: 05/02/2018 Status: COMPLETED Source: [place] 2:23 PM CLINIC OTHER CAMPUS REPOSITORY O ID: [id number] Author: René Morales Service: Urology Author Type: Physician Type: Operative Report Filed: 05/02/2018 4:04 PM Note Text: UROLOGY OPERATIVE REPORT PATIENT NAME: Attila Del Cid DATE OF : 1970 TODAY'S DATE: 05/02/18 PreOp Dx: Right flank pain PostOp Dx: Same Operation: Cystoscopy, bilateral retrograde pyelograms, right ureteral stent insertion Surgeon: René Morales MD Assist: Drew Bianchi MD EBL Minimal Drains/Stent: [id number] Easotn: none Specimen: none Medications/fluids: Per anesthesia notes Condition To PACU Indications: Attila Del Cid is a 48 year old patient who presents with intractable right flank pain s/p Right ureteroscopic stone basket extraction on 05/01. After having a discussion on treatment options, risks and benefits, the patient wishes to proceed forward with surgical intervention Patient was brought to the operating room and identified using name band/number. A thorough time out was performed and everyone present was in agreement. Patient was placed on OR table. Anesthesia and lines were maintained by the anesthesia team. Description of Procedure: Prior to the procedure, the patient was placed in the dorsal lithotomy position. Pressure points were padded. A 21fr cystourethroscope was advanced into the bladder. Some bloody urine and clot were seen extruding from the right ureteral orifice. Under flouroscopic visualization, retrograde pyelograms were obtained which demonstrated some filling defects within the right proximal ureter which was thought to be likely secondary to clot within the right ureter. A glide wire was advanced up the right side. Left retrograde pyelogam appeared free of filling defects, strictures, or hydronephrosis. [place] catheter was advanced over the wire to approximate the length of the right ureter which was found to be approximately 28cm. A [id number] ureteral stent was advanced over the wire through the cystoscope under fluoroscopic visualization. Once in position the wire was removed. A good curl was noted in the right renal pelvis and the bladder. Bladder was then drained. Dr. Morales was present to oversee and perform all critical aspects of this procedure when needed. Patient awoken from anesthesia having tolerated the procedure well. Attila Del Cid Was transferred to recovery room. Drew Bianchi MD Urology, PGY-3 Pager [phone] 05/02/18 2:23 PM I was present and participated during the entire procedure, including on gauthier portions. René Morales M.D. UROGRAM RETROGRADE Observed: 05/02/2018 Status: F Source: [facility] 2:04 PM HEALTH SYSTEM REPOSITORY Performed at [facility] APPROVED BY: Aman Alejandra MD EXAM TITLE: BILATERAL RETROGRADE PYELOGRAM DATE: 05/02/2018 13:48 COMPARISON: Previous retrograde urogram from May 01, 2018 CLINICAL INDICATION/HISTORY: The patient is a 48-year-old male with right renal stones that were treated with holmium lithotripsy one day earlier. TECHNIQUE: 3 spot films from retrograde exam performed by Dr. Morales are presented for interpretation. 1 minute and 6 seconds of fluoroscopy was available in the OR. FINDINGS: There is no evidence of filling defect, stricture, dilation, mucosal abnormality, or extrinsic mass involving the visualized portions of the left renal collecting system or ureter. On the ri ght side there is some mucosal irregularity at the ureteropelvic junction. A right internal ureteral stent is placed on the final image. IMPRESSION: Normal left renal collecting system and ureter. On the right there is some mucosal irregularity at the ureteropelvic junction most likely representing post procedure inflammatory changes. Technically successful placement of right internal ureteral stent. NURSING PROG Observed: 05/02/2018 Status: COMPLETED Source: [place] 1:43 PM CLINIC OTHER CAMPUS REPOSITORY HNO ID: [id number] Author: Trixie (Ale) ALE Lewis Service: Nursing Author Type: Registered Nurse Type: Nursing Progress Note Filed: 05/02/2018 1:45 PM Note Text: 1340 Pt returned to OR for stint placement Eyeglasses , hearing aid and phone in lock box This chart closed and new chart started for OR ANES PREOP Observed: 05/02/2018 Status: COMPLETED Source: [place] 1:18 PM CLINIC OTHER CAMPUS REPOSITORY O ID: [id number] Author: Bradly Cuevas Service: Anesthesiology Author Type: Physician Type: Anesthesia PreOp Filed: 05/02/2018 1:20 PM Note Text: ANESTHESIOLOGY DAY OF SURGERY NOTE SERVICE DATE: 05/02/2018 SERVICE TIME: 1:18 PM : 1970 Procedure(s) (LRB): cystoscopy, right INSERTION STENT URETERAL (Right) Surgeon(s): René Russell (Res) Arias Estimated body mass index is 33.47 kg/m? as calculated from the following: Height as of this encounter: 180.3 cm (5' 11). Weight as of this encounter: 108.9 kg (240 lb). 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 Kidney Stones Acute Right Flank Pain Ectatic Thoracic Aorta (Hcc) Renal Calculus, Right PAST MEDICAL HISTORY Diagnosis Date - Acute right flank pain 03/25/2018 - Aneurysm of ascending aorta (HCC) - Aortic aneurysm (HCC) - Arthritis - Atrial fibrillation (HCC) - Calculi, ureter - Calculus of kidney - Hematuria - Hypertension - Kidney stones 03/25/2018 - Pneumonia - Psychiatric disorder anxiety PAST SURGICAL HISTORY Procedure Laterality Date - BACK SURGERY HX 2015 FUSION, L4-L5 - COLONOSCOP W/ OR W/O BRSH SPEC 05/14/2014 Colonoscopy - EGD W/O OR W/BRUSH/WASH 05/14/2014 EGD - FRAGMENTING/KIDNEY STONE Right 2017 Lithotripsy - KNEE SURGERY HX Right 03/2017 patella replacement - [place] ANESTH,KNEE JOINT; NOS 12/2017 Left FAMILY HISTORY Problem Relation Age of Onset - Diabetes Mother - Colon Cancer Mother - Heart disease Mother - Hypertension Mother - Diabetes Sister - Skin Cancer Father Social History: Social History Substance Use Topics - Smoking status: Never Smoker - Smokeless tobacco: Never Used - Alcohol use No No current facility-administered medications on file prior to encounter. Current Outpatient Prescriptions on File Prior to Encounter: tamsulosin ER (FLOMAX) 0.4 mg cp24 every day acetaminophen 325 mg-caffeine 40 mg-butalbital 50 mg (FIORICET) per tablet gabapentin (NEURONTIN) 300 mg capsule apixaban (ELIQUIS) 5 mg tab tab(s) Take by mouth twice daily. carvedilol (COREG) 25 mg tablet Take 1 tablet by mouth twice daily with meals. meclizine (ANTIVERT) 12.5 mg tab Take 2 tablets by mouth twice daily as needed. lisinopril (ZESTRIL, PRINIVIL) 20 mg tablet Take 1 tablet by mouth once daily. pantoprazole DR (PROTONIX) 40 mg tablet Take 1 tablet by mouth once daily. albuterol HFA (PROVENTIL HFA, VENTOLIN HFA) 90 mcg/actuation inhaler Inhale 2 Puffs as instructed every 4 hours as needed. ibuprofen (MOTRIN) 600 mg tablet Take 1 tablet by mouth every 6 hours as needed for Pain or Fever. promethazine (PHENERGAN) 25 mg tablet Take 25 mg by mouth every 6 hours as needed. sertraline (ZOLOFT) 100 mg tablet 200 mg. busPIRone HCl 7.5 mg tablet Take 7.5 mg by mouth twice daily. (RX given Sept and has 2 more refills) rOPINIRole (REQUIP) 1 mg tablet Take 1 tablet by mouth daily at bedtime. For restless legs (Patient not taking: Reported on 04/16/2018 ) Current Facility-Administered Medications: lactated ringers infusion 50 mL/hr INTRAVENOUS CONTINUOUS Camron Perez Last Rate: 50 mL/hr at 05/02/18 1200 50 mL/hr at 05/02/18 1200 lidocaine 10 mg/mL (1 %) 1-2 mg injection (XYLOCAINE) 0.1- 0.2 mL INTRADERMAL PRN Camron Perez carvedilol 25 mg tab(s) (COREG) 25 mg ORAL BID w MEALS Byron (Res) Yunker 25 mg at 05/01/182029 busPIRone 7.5 mg tab(s) (BUSPAR) 7.5 mg ORAL BID Byron (Francisco Chin 7.5 mg at 05/01/182099 flecainide 100 mg tab(s) (TAMBOCOR) 100 mg ORAL BID Byron (Francisco Chin 100 mg at 05/01/182099 gabapentin 300 mg cap(s) (NEURONTIN) 300 mg ORAL DAILY Byron (Francisco Chin 300 mg at 05/01/182029 lisinopril 20 mg tab(s) (ZESTRIL, PRINIVIL) 20 mg ORAL DAILY Byron (Francisco Chin 20 mg at 05/01/182029 albuterol HFA 90 mcg/actuation 2 Puff (PROVENTIL HFA, VENTOLIN HFA) 2 Puff INHALATION q 4 H PRN Byron (Francisco Chin amLODIPine 5 mg tab(s) (NORVASC) 5 mg ORAL DAILY Byron (Francisco Chin 5 mg at 05/01/182029 apixaban 5 mg tab(s) (ELIQUIS) 5 mg ORAL BID Byron (Francisco Chin 5 mg at 05/02/18 0835 sertraline 200 mg tab(s) (ZOLOFT) 200 mg ORAL DAILY Byron (Francisco Chin pantoprazole DR 40 mg tab(s) (PROTONIX) 40 mg ORAL DAILY Byron (Francisco Chin 40 mg at 05/02/18 0837 NaCl 0.9% iv infusion 100 mL/hr INTRAVENOUS CONTINUOUS Byron Chin Last Rate: 100 mL/hr at 05/01/18 1800 100 mL/hr at 05/01/18 1800 oxyCODONE-acetaminophen 5-325 mg 1-2 tablet (PERCOCET) 1-2 tablet ORAL q 4 H PRN Byron (Francisco Chin 2 tablet at 05/01/18 2107 morphine 1-2 mg injection 1-2 mg INTRAVENOUS q 2 H PRN Byron Chin 2 mg at 05/02/18 0836 ondansetron (PF) 4 mg injection (ZOFRAN) 4 mg INTRAVENOUS q 6 H PRN Byron (Francisco Chin tamsulosin ER 0.4 mg cap(s) (FLOMAX) 0.4 mg ORAL DAILY Byron (Res) Yunker 0.4 mg at 05/02/18 0600 prochlorperazine 5 mg injection (COMPAZINE) 5 mg INTRAVENOUS q 6 H PRN Byron (Res) Yunker ketorolac 30 mg injection (TORADOL) 30 mg INTRAVENOUS q 6 H Byron (Res) Yunker 30 mg at 05/02/18 0835 Followed by ibuprofen 600 mg tab(s) (MOTRIN) 600 mg ORAL q 6 H Byron (Res) Yunker docusate sodium 100 mg cap(s) (COLACE) 100 mg ORAL BID Byron (Res) Yunker 100 mg at 05/01/18 2100 Allergies: ALLERGIES Allergen Reactions - Celebrex [Celecoxib] Vomiting Nausea - Clonidine Rash - Fentanyl GI Upset - Levofloxacin Rash pt reports to [facility] PT 04-13-2017 - Penicillin G Rash - Relpax [Eletriptan * Vomiting Nausea - Topamax [Topiramate] Vomiting - Vicodin [Hydrocodon* Vomiting - Wellbutrin [Bupropi* Vomiting Nausea DOS EXAM: Adequate NPO status: Yes Anesthetic risks, benefits, alternatives, personnel and consent discussed: Yes Patient agrees to proceed: Yes Previous Anesthesia: No history of adverse event. Airway Assessment: MP 3; Neck ROM: Full ROM without neurologic symptoms; Airway Evaluation: No significant abnormalities Symptoms of Sleep Apnea: None Dentition: Poor dentition Additional Physical Exam: Lungs: Patient health status unchanged since recent history and physical. See history and physical for exam findings. Cardiac: Patient health status unchanged since recent history and physical. See history and physical for exam findings. Additional Pertinent Findings: N/A Blood Products: Not anticipated for this procedure. Anesthetic Plan: General, Standard ASA Monitors Pain Management Plan: Parenteral or Oral ASA Class: 3 Other Medical Problems: None Chronic Beta Carolee medication administered within 24 hours: Yes I have interviewed and examined the patient. I have reviewed the medical record and/or the pre-anesthesia evaluation, pertinent labs, and test results. Significant changes in the patient's condition since the History and Physical, not otherwise documented in primary service progress notes: No This contains updated information obtained within 48 hours of Surgery/Procedure. SIGNATURE: Bradly Cuevas MD PATIENT NAME: Attila Del Cid DATE: May 02, 2018 TIME: 1:18 PM CSN: [id number] NURSING PROG Observed: 05/02/2018 Status: COMPLETED Source: [place] 11:30 AM [facility] OTHER CAMPUS REPOSITORY HNO ID: [id number] Author: Trixie (Rn) ALE Lewis Service: Nursing Author Type: Registered Nurse Type: Nursing Progress Note Filed: 05/02/2018 11:31 AM Note Text: 1030 Pt notified of OR time 1345 for stint placement NURSING PROG Observed: 05/02/2018 Status: COMPLETED Source: [place] 8:39 AM [facility] OTHER [place] REPOSITORY HNO ID: [id number] Author: Trixie (Rn) ALE Lewis Service: Nursing Author Type: Registered Nurse Type: Nursing Progress Note Filed: 05/02/2018 8:41 AM Note Text: Dr Chin at bedside 0745 Talked with pt concerning OR for stent today OR permit signed CNDS Observed: 05/02/2018 Status: COMPLETED Source: [place] 7:43 AM [facility] REPOSITORY HNO ID: [id number] Author: Drew Bianchi Service: Urology Author Type: Resident Type: Discharge Summaries Filed: 05/02/2018 2:18 PM Note Text: DISCHARGE SUMMARY PATIENT NAME: Attila Del Cid ADMISSION DATE: 05/01/2018 DISCHARGE DATE: 05/02/2018 Attending Physician: Camron Perez Reason for Hospitalization: Principal Problem: Kidney stones Active Problems: Renal calculus, right Resolved Problems: * No resolved hospital problems. * Operations During Hospitalization: cystoscopy, pyelograms, right ureteroscopic laser lithotripsy 05/01, cystoscopy right ureteral stent placement 05/02 Hospital Course: Patient underwent the above surgery on 05/01 but had significant right flank pain in PACU and was kept overnight for pain control. Patient continued to have observer electrical prospecting pain overnight despite IV pain medications and patient was taken to the OR 05/02 for stent placement. Patient's pain was controlled after stent placement. He ambulated and tolerated a diet. The patient was then deemed fit for discharge 05/02. Labs and Procedures Pending at Discharge: No pending results. Consulting Teams During Hospitalization: None Patient Condition @ Discharge: Stable Discharge Disposition: Home/Self Care Information Provided to Patient: See discharge instructions Discharge Medications: Current Discharge Medication List START taking these medications docusate sodium (COLACE) 100 mg Take 100 mg by mouth twice daily as needed. Qty: 30 capsule Refills: 0 CONTINUE these medications which have CHANGED oxyCODONE-acetaminophen (PERCOCET) 1 tablet Take 1 tablet by mouth every 6 hours as needed for Pain. Earliest Fill Date: 05/01/18 Qty: 12 tablet Refills: 0 Associated Diagnoses:Kidney stones CONTINUE these medications which have NOT CHANGED flecainide (TAMBOCOR) 100 mg Take 100 mg by mouth twice daily. amLODIPine (NORVASC) 5 mg Take 5 mg by mouth once daily. BABY ASPIRIN ORAL 1 tablet Take 1 tablet by mouth once daily. tamsulosin ER (FLOMAX) 0.4 mg cp24 every day acetaminophen 325 mg-caffeine 40 mg-butalbital 50 mg (FIORICET) per tablet gabapentin (NEURONTIN) 300 mg capsule apixaban (ELIQUIS) 5 mg tab tab(s) Take by mouth twice daily. carvedilol (COREG) 25 mg Take 25 mg by mouth twice daily with meals. Qty: 60 tablet Refills: 11 meclizine (ANTIVERT) 25 mg Take 25 mg by mouth twice daily as needed. lisinopril (ZESTRIL, PRINIVIL) 20 mg Take 20 mg by mouth once daily. Qty: 30 tablet Refills: [address] (PROTONIX) 40 mg Take 40 mg by mouth once daily. Qty: 30 tablet Refills: 11 albuterol HFA (PROVENTIL HFA, VENTOLIN HFA) 2 Puffs Inhale 2 Puffs as instructed every 4 hours as needed. Qty: 1 Inhaler Refills: 0 Associated Diagnoses:Cough present for greater than 3 weeks ibuprofen (MOTRIN) 600 mg Take 600 mg by mouth every 6 hours as needed for Pain or Fever. Qty: 28 tablet Refills: 0 promethazine (PHENERGAN) 25 mg Take 25 mg by mouth every 6 hours as needed. sertraline (ZOLOFT) 200 mg 200 mg. busPIRone HCl 7.5 mg Take 7.5 mg by mouth twice daily. (RX given Sept and has 2 more refills) rOPINIRole (REQUIP) 1 mg Take 1 mg by mouth daily at bedtime. For restless legs Qty: 30 tablet Refills: 5 Future Appointments: Follow Up with Dr. Perez TIME OF CARE: Discharge Management: I personally spent less than 30 minutes involved in the discharge management of this patient. SIGNATURE: Drew Bianchi MD DATE: May 02, 2018 TIME: 7:43 AM NURSING PROG Observed: 05/02/2018 Status: COMPLETED Source: [place] 6:41 AM [facility] REPOSITORY HNO ID: [id number] Author: Rosi (Rn) ALE Reyes Service: (none) Author Type: Registered Nurse Type: Nursing Progress Note Filed: 05/02/2018 7:02 AM Note Text: Dr. Rajan to bs. Has been decided that pt will go back to OR for stent placement r/t pain throughout night. Pt aware to remain NPO, able to take meds with sips PROGRESS Observed: 05/02/2018 Status: COMPLETED Source: [place] 6:04 AM [facility] REPOSITORY HNO ID: [id number] Author: Diony Gaines DO Service: Urology Author Type: Physician Type: Progress Notes Filed: 05/02/2018 1:14 PM Note Text: UROLOGY PROGRESS NOTE PATIENT NAME: Attila Del Cid DATE OF : 1970 ADMISSION DATE: 05/01/2018 10:22 AM Subjective No acute events overnight. No fevers/chills overnight Urine has had some blood but is clearing up Pt has rt. Flank pain this AM- has taken multiple doses of narcotics including morphine Denies nausea/vomiting Objective VS: BP 134/85 Pulse 69 Temp 36.3 ?C (97.3 ?F) Resp 16 SpO2 98% I AND O - 24hr: Intake/Output Summary (Last 24 hours) at 05/02/18 0604 Last data filed at 05/02/18 0345 Gross per 24 hour Intake 1550 ml Output 1500 ml Net 50 ml Physical Exam: General: Neck: Resp: Abdomen: No acute distress Supple Normal effort Soft, non-tender, nondistended : Right CVA tenderness Labs and Imaging Studies LABS: BMP: Glucose (mg/dL) Date Value 05/02/2018 88 Potassium (mEq/L) Date Value 05/02/2018 3.7 Sodium (mEq/L) Date Value 05/02/2018 145 Chloride (mEq/L) Date Value 05/02/2018 115 CO2 (mEq/L) Date Value 05/02/2018 23 Creatinine (mg/dL) Date Value 05/02/2018 0.65 BUN (mg/dL) Date Value 05/02/2018 10 Anion Gap (no units) Date Value 05/02/2018 11 Calcium (mg/dL) Date Value 05/02/2018 7.2 CBC: Hemoglobin (g/dL) Date Value 12/19/2016 14.7 HGB (g/dL) Date Value 05/02/2018 12.9 Hematocrit (%) Date Value 05/02/2018 40.5 WBC (thou/cmm) Date Value 05/02/2018 7.60 Platelet Count (thou/cmm) Date Value 05/02/2018 236 Urinalysis: Specific [place], Ur Date Value Ref Range Status 03/25/2018 1.018 1.005 - 1.030 Final Glucose, Urine Date Value Ref Range Status 03/25/2018 NEGATIVE Negative mg/dL Final Bilirubin, Urine Date Value Ref Range Status 03/25/2018 NEGATIVE Negative Final Ketones, Urine Date Value Ref Range Status 03/25/2018 NEGATIVE Negative mg/dL Final Hemoglobin/Blood,Ur Date Value Ref Range Status 03/25/2018 small Neg Final Protein, Urine Date Value Ref Range Status 03/25/2018 NEGATIVE Negative mg/dL Final Urobilinogen, Urine Date Value Ref Range Status 03/25/2018 0.2 0.0 - 1.0 EU/dL Final Nitrites Date Value Ref Range Status 03/25/2018 neg Neg Final Nitrites Urine Date Value Ref Range Status 03/25/2018 NEGATIVE Negative Final Leukocytes Date Value Ref Range Status 03/25/2018 neg Neg Final WBC, Urine Date Value Ref Range Status 03/25/2018 0.3 0.0 - 5.0 /hpf Final Urine Culture: Urine Culture (no units) Date Value 03/25/2018 No growth RADIOLOGY: retrograde urogram: A couple of tiny calculi project over right kidney. The left ureter and collecting system are opacifiedl no hydronephrosis, convincing filling defect or stricture. The right renal calculi are not convincingly seen on the final image. Assessment and Plan ASSESSMENT: 48 year old male w/ history of A fib, calculi of the right kidney s/p right laser lithotripsy 05/01 without stent placement. PLAN: NPO last had food at 4am Pt still insignificant pain 05/30 requiring IV narcotics to control Discussed with the patient that he would need ureteral stent placement due to continued pain. Pt agrees. For surgery Cont. Current pain meds Strain all urine. Will add on for OR. Cuco Werner, MS IV I agree with above assessment and plan. Will need OR intervention. Shama Rajan MD Attending Note I evaluated the patient and personally participated in the gauthier components. I agree with the resident's findings and plan as documented and have discussed the case and management of the patient's care with the resident. Signature: Diony Gaines DO, MBA Date: 05/02/2018 Time: 1:14 PM NURSING PROG Observed: 05/02/2018 Status: COMPLETED Source: [place] 4:23 AM [facility] OTHER CAMPUS REPOSITORY HNO ID: [id number] Author: Rosi AminRn) ALE Reyes Service: (none) Author Type: Registered Nurse Type: Nursing Progress Note Filed: 05/02/2018 4:24 AM Note Text: Family updated NURSING PROG Observed: 05/02/2018 Status: COMPLETED Source: [place] 3:49 AM [facility] OTHER CAMPUS REPOSITORY HNO ID: [id number] Author: Rosi AminRn) ALE Reyes Service: (none) Author Type: Registered Nurse Type: Nursing Progress Note Filed: 05/02/2018 3:49 AM Note Text: {am blood work sent to lab NURSING PROG Observed: 05/02/2018 Status: COMPLETED Source: [place] 3:48 AM [facility] OTHER CAMPUS REPOSITORY HNO ID: [id number] Author: Rosi (Rn) ALE Reyes Service: (none) Author Type: Registered Nurse Type: Nursing Progress Note Filed: 05/02/2018 3:49 AM Note Text: Pt requests to be ambulated to bathroom so he can Get freshened up. Hygiene supplies provided along with gowns and towels. Pt steady on feet HEMOGRAM Collected: 05/02/2018 Status: F Source: [facility] 3:35 AM HEALTH SYSTEM REPOSITORY TYPE CODE TESTS RESULT OUT OF REFERENCE UNITS RANGE LAB WBC(LOINC) 4.23-9.07 thou/cmm WBC 7.60 LAB RBC(LOINC) 4.63-6.08 mil/cmm RBC 4.77 LAB HGB(LOINC) 13.7-17.5 g/dL Low Hgb 12.9 LAB HCT(LOINC) 40.1-51.0 % Hct 40.5 LAB MCV(LOINC) 83.2-95.6 fl MCV 84.9 LAB MCH(LOINC) 25.7-32.2 pg MCH 27.0 LAB MCHC(LOINC) 32.3-36.5 % Low MCHC 31.9 LAB RDW(LOINC) 11.6-14.4 % High RDW 14.9 LAB RDWSD(LOINC 36.1-45.8 fl ) High RDW SD 46.1 LAB PLT(LOINC) 141-365 thou/cmm Platelet 236 LAB MPV(LOINC) 8.7-12.0 fl MPV 8.9 Performed By: #### CBC1 #### [facility] [address] [id number] BASIC PANEL Collected: 05/02/2018 Status: F Source: [facility] 3:35 AM HEALTH SYSTEM REPOSITORY TYPE CODE TESTS RESULT OUT OF REFERENCE UNITS RANGE LAB NA(LOINC) 136-145 mEq/L Sodium Blood 145 LAB K(LOINC) 3.5-5.1 mEq/L Potassium Blood 3.7 Result Comment: SPECIMEN SLIGHTLY HEMOLYZED LAB CL(LOINC) 98-107 mEq/L Chloride High Blood 115 LAB CO2(LOINC) 21-32 mEq/L CO2 Blood 23 LAB GLU(LOINC) 70-99 mg/dL Glucose Blood 88 LAB BUN(LOINC) 7-18 mg/dL BUN Blood 10 LAB CREA(LOINC) 0.67-1.17 mg/dL Creatinine Low Blood 0.65 LAB CA(LOINC) 8.5-10.1 mg/dL Calcium Low Blood 7.2 LAB ANGAP(LOINC) 8-16 Anion Gap 11 Performed By: #### P8 #### [facility] [address] [address] MDRD GFR Collected: 05/02/2018 Status: F Source: [facility] 3:35 AM HEALTH SYSTEM REPOSITORY TYPE CODE TESTS RESULT OUT OF RANGE REFERENCE UNITS LAB GFRFN(LOINC >60mL/min/1.73m ) 2 eGFR >60 Result Comment: If the patient is , multiply the result by 1.210. Performed By: #### GFR #### [place] [id number] CNPN Observed: 05/02/2018 Status: COMPLETED Source: [place] 12:00 AM CLINIC OTHER CAMPUS REPOSITORY Telephone (UROLAE) ATTILA DEL CID ([id number]) 1970 M [facility] Date Time Provider Department 05/02/18 RENÉ MORALES During your visit today, we recorded the following information about you: René Morales MD 05/02/2018 4:10 PM Signed 05/02/2018: OTILIA, Right stent Needs cysto stent d/c 1 week or so. Camron Perez MD 05/05/2018 7:33 AM Signed Needs cysto stent removal in office in 7 - 10 days Linda Fonseca Cma 05/05/2018 8:04 AM Signed Please see message below per provider 05/14/18 - 9:30 in [place] office - THANK YOU Linda Fonseca [facility] Allergies As of Date: 05/02/2018 Noted Allergy Reaction CELEBREX (CELECOXIB) 07/17/2016 11 - Vomiting Comments: Nausea CLONIDINE 07/17/2016 2 - Rash FENTANYL 07/17/2016 8 - GI Upset LEVOFLOXACIN 04/13/2017 2 - Rash Comments: pt reports to [facility] PT --2016 PENICILLIN G 12/30/2013 2 - Rash RELPAX (ELETRIPTAN HBR) 07/17/2016 11 - Vomiting Comments: Nausea TOPAMAX (TOPIRAMATE) 07/17/2016 11 - Vomiting VICODIN (HYDROCODONE-ACETAMINOPHE*12/30/2013 11 - Vomiting WELLBUTRIN (BUPROPION HCL) 07/17/2016 11 - Vomiting Comments: Nausea Date Reviewed: 05/02/2018 Reviewed by: Linda Sloan) ALE Low - Fully Assessed Reason for Visit: Surgical Followup [104] Prescriptions as of 05/02/2018 Sig: DOCUSATE SODIUM 100 MG CAPSULE Take 1 capsule by mouth twice* FLECAINIDE 100 MG TABLET Take 100 mg by mouth twice da* AMLODIPINE 5 MG TABLET Take 5 mg by mouth once daily. BABY ASPIRIN ORAL Take 1 tablet by mouth once d* OXYCODONE-ACETAMINOPHEN 5 MG-* Take 1 tablet by mouth every * TAMSULOSIN 0.4 MG CAPSULE every day [id number]* GABAPENTIN 300 MG CAPSULE APIXABAN 5 MG TABLET Take by mouth twice daily. SERTRALINE 100 MG TABLET 200 mg. CARVEDILOL 25 MG TABLET Take 1 tablet by mouth twice * BUSPIRONE 7.5 MG TABLET Take 7.5 mg by mouth twice da* MECLIZINE 12.5 MG TABLET Take 2 tablets by mouth twice* LISINOPRIL 20 MG TABLET Take 1 tablet by mouth once d* ROPINIROLE 1 MG TABLET Take 1 tablet by mouth daily * Patient not taking: Reported on 04/16/2018 PANTOPRAZOLE 40 MG TABLET,DEL* Take 1 tablet by mouth once d* ALBUTEROL SULFATE HFA 90 MCG/* Inhale 2 Puffs as instructed * IBUPROFEN 600 MG TABLET Take 1 tablet by mouth every * PROMETHAZINE 25 MG TABLET Take 25 mg by mouth every 6 h* Problem List As Of Date 05/02/2018 Noted Resolved Primary osteoarthritis of right knee [M17.11] INVALID FOR* Chest pain at rest [R07.9] INVALID FOR* HTN (hypertension) [I10] INVALID FOR* Atrial fibrillation (HCC) [I48.91] INVALID FOR* More... Atypical chest pain [R07.89] INVALID FOR* Patellofemoral instability of right knee with p*INVALID FOR* Kidney stones [N20.0] INVALID FOR* Acute right flank pain [R10.9] INVALID FOR* Ectatic thoracic aorta (HCC) [I77.810] INVALID FOR* More... Renal calculus, right [N20.0] INVALID FOR* Encounter Status:Closed by RENÉ MORALES MD on 05/02/18 NURSING PROG Observed: 05/01/2018 Status: COMPLETED Source: [place] 9:34 PM [facility] REPOSITORY HNO ID: [id number] Author: Rosi (Rn) King RN Service: (none) Author Type: Registered Nurse Type: Nursing Progress Note Filed: 05/01/2018 9:36 PM Note Text: {Pt remains aANDox3. Polite and appropriate. Walked per request and fan placed on pt. has left for the night, but PACU phone number provided. Medicated per order for c/o right flank pain. Extra snacks and drink given per request. Urinal at bedside and call light within reach. Pt watching TV. Refuses Flomax this evening and states that he will take it in the am PT ED Observed: 05/01/2018 Status: COMPLETED Source: [place] 7:42 PM [facility] OTHER [place] REPOSITORY HNO ID: [id number] Author: Rosi AminRn) King RN Service: (none) Author Type: Registered Nurse Type: Patient Education Filed: 05/01/2018 7:42 PM Note Text: {blood work sent to lab PROTIME Collected: 05/01/2018 Status: F Source: [facility] 7:38 PM HEALTH SYSTEM REPOSITORY TYPE CODE TESTS RESULT OUT OF REFERENCE UNITS RANGE LAB PTI(LOINC) 9.3-11.9 sec Prothrombin Time 10.7 LAB INR(LOINC) INR 1.02 Result Comment: Standard Therapy 2.0-3.0 High Dose 2.5-3.5 Performed By: #### PT #### [facility] [address] [address] NURSING PROG Observed: 05/01/2018 Status: COMPLETED Source: [place] 7:33 PM [facility] OTHER CAMPUS REPOSITORY HNO ID: [id number] Author: Rosi (Rn) ALE Reyes Service: (none) Author Type: Registered Nurse Type: Nursing Progress Note Filed: 05/01/2018 7:34 PM Note Text: Pt moved to PACU spot 1. Placed in hospital bed NURSING PROG Observed: 05/01/2018 Status: COMPLETED Source: [place] 7:16 PM [facility] OTHER CAMPUS REPOSITORY HNO ID: [id number] Author: Rosi (Rn) ALE Reyes Service: (none) Author Type: Registered Nurse Type: Nursing Progress Note Filed: 05/01/2018 7:17 PM Note Text: Pt eating dinner in nad aware that he will be staying on in PACU ANES POST Observed: 05/01/2018 Status: COMPLETED Source: [place] 5:40 PM [facility] OTHER [place] REPOSITORY HNO ID: [id number] Author: Keila Delgado Service: Anesthesiology Author Type: Physician Type: Anesthesia PostOp Filed: 05/01/2018 5:41 PM Note Text: POST ANESTHESIA EVALUATION NOTE SERVICE DATE: 05/01/2018 SERVICE TIME: 5:40 PM : 1970 Vitals: 05/01/18 1148 05/01/18 1352 Temp: 36.5 ?C (97.7 ?F) 36.2 ?C (97.2 ?F) 05/01/18 1630 05/01/18 1645 05/01/18 1700 05/01/18 171 BP: 141/101 142/103 143/110 138/102 05/01/18 1630 05/01/18 1645 05/01/18 1700 05/01/18 171 Pulse: 67 78 66 63 05/01/18 1630 05/01/18 1645 05/01/18 1700 05/01/18 171 Resp: 16 21 17 18 05/01/18 1630 05/01/18 1645 05/01/18 1700 05/01/18 171 SpO2: 96% 96% 100% 100% Validated Vital Signs: Yes POST ANES STATUS: No apparent anesthetic complications. The patient is appropriately hydrated with stable respiratory and cardiovascular status. Patient has safe and adequate airway control. The patient has appropriate pain relief and no significant post operative nausea or vomiting. The patient has achieved baseline mental status. Further assessment by Anesthesia Service: None Other Remarks: SIGNATURE: Keila Delgado MD PATIENT NAME: Attila Del Cid DATE: May 01, 2018 TIME: 5:40 PM PAGER/CONTACT #: NURSING PROG Observed: 05/01/2018 Status: COMPLETED Source: [place] 5:37 PM [facility] REPOSITORY HNO ID: [id number] Author: Emilia Sloan) ALE Nathan Service: Nursing Author Type: Registered Nurse Type: Nursing Progress Note Filed: 05/01/2018 5:38 PM Note Text: Dr. Chin visits. NURSING PROG Observed: 05/01/2018 Status: COMPLETED Source: [place] 4:56 PM [facility] REPOSITORY HNO ID: [id number] Author: Emilia Sloan) ALE Nathan Service: Nursing Author Type: Registered Nurse Type: Nursing Progress Note Filed: 05/01/2018 4:58 PM Note Text: Dr. Chin notified of pt continued c/o pain 10/10. States someone will be in to evaluate. Family to bedside. NURSING PROG Observed: 05/01/2018 Status: COMPLETED Source: [place] 4:16 PM [facility] REPOSITORY HNO ID: [id number] Author: Rossi Walls RN Service: Nursing Author Type: Registered Nurse Type: Nursing Progress Note Filed: 05/01/2018 4:17 PM Note Text: Pt having 10/[address] Chin aware and ordered toradol. Bladder scanned for 97cc. Pt states he doesn't feel like he has to void. UROGRAM RETROGRADE Observed: 05/01/2018 Status: F Source: [facility] 1:26 PM HEALTH SYSTEM REPOSITORY Performed at [facility] APPROVED BY: Jay Fay MD EXAMINATION: RETROGRADE UROGRAM DATE: 05/01/2018 13:11 COMPARISON: Abdominal x-ray 02/22/2017. CLINICAL INDICATION/HISTORY: Calculus of kidney. Right renal calculus. TECHNIQUE: Total of 3 intraoperative, fluoroscopic spot views of the abdomen and pelvis were obtained for documentation purposes. Fluoroscopy was performed without a radiologist in attendance. Fluoroscopy time 0.5 minutes. FINDINGS: L4/5 lumbar fusion hardware and interbody graft noted. A couple of tiny calculi project over the right kidney. Several right pelvic phleboliths are noted. The left ureter and collecting sys tem are opacified; no hydronephrosis, convincing filling defect or stricture. The final image demonstrates cannulation of the right ureter with fiber for holmium laser. The right renal calculi are not convincingly seen on the final image. IMPRESSION: As above, with images obtained for fluoroscopic documentation purposes. Please refer to the operative report for full procedural description. CALCULI ANALYSIS Collected: 05/01/2018 Status: F Source: [facility] 1:15 PM HEALTH SYSTEM REPOSITORY TYPE CODE TESTS RESULT OUT OF REFERENCE UNITS RANGE LAB CALTX(LOINC ) Calculus Type right renal LAB STO1X(LOINC ) Calculi SEE BELOW Analysis Result Comment: Calculus Type RIGHT RENAL Note (NOTE) Calculus Color: CASIANO Calculus Size & Weight: MULTIPLE PIECES, 0.0268 GRAMS Composition: CALCIUM PHOSPHATE - 90% MINOR COMPONENTS - 10% This test was developed and its performance characteristics determined by the [facility] [place] [facility]). It has not been cleared or approved by the FDA. [facility] is regulated under CLIA as qualified to perform high-complexity testing. This test is used for clinical purposes. It should not be regarded as investigational or for research. Performing Laboratory: [facility] [address] [id number] Performed By: #### STONX #### [place] [address] HISTORY PHYSICAL Observed: 05/01/2018 Status: COMPLETED Source: [place] 12:47 PM CLINIC OTHER CAMPUS REPOSITORY HNO ID: [id number] Author: Camron Perez Service: Urology Author Type: Physician Type: HANDP Filed: 05/01/2018 12:49 PM Note Text: H and P : UROLOGY SERVICE SERVICE DATE: 05/01/2018 SERVICE TIME: 12:47 PM Assessment: R renal calc Plan: C and P , R ULL < R stent Subjective Mr. Del Cid is a 48 year old male who presents for R renal calc laser litho ; Prior stones, KUB showed stone burden ; cannot do ESWL , due to anticoag and ? Of aneurysm ; . PAST MEDICAL HISTORY Diagnosis Date - Acute right flank pain 03/25/2018 - Aneurysm of ascending aorta (HCC) - Aortic aneurysm (HCC) - Arthritis - Atrial fibrillation (HCC) - Calculi, ureter - Calculus of kidney - Hematuria - Hypertension - Kidney stones 03/25/2018 - Pneumonia - Psychiatric disorder anxiety PAST SURGICAL HISTORY Procedure Laterality Date - BACK SURGERY HX 2014 FUSION, L4-L5 - COLONOSCOP W/ OR W/O BRSH SPEC 05/14/2014 Colonoscopy - EGD W/O OR W/BRUSH/WASH 05/14/2014 EGD - FRAGMENTING/KIDNEY STONE Right 2017 Lithotripsy - KNEE SURGERY HX Right 03/2017 patella replacement - [place] ANESTH,KNEE JOINT; NOS 12/2017 Left FAMILY HISTORY Problem Relation Age of Onset - Diabetes Mother - Colon Cancer Mother - Heart disease Mother - Hypertension Mother - Diabetes Sister - Skin Cancer Father Social History Substance Use Topics - Smoking status: Never Smoker - Smokeless tobacco: Never Used - Alcohol use No flecainide (TAMBOCOR) 100 mg tablet, Take 100 mg by mouth twice daily., Disp: , Rfl: , 04/30/2018 at Unknown time amLODIPine (NORVASC) 5 mg tablet, Take 5 mg by mouth once daily., Disp: , Rfl: , 04/30/2018 at Unknown time BABY ASPIRIN ORAL, Take 1 tablet by mouth once daily., Disp: , Rfl: , 04/30/2018 at Unknown time tamsulosin ER (FLOMAX) 0.4 mg cp24, every day, Disp: , Rfl: , 04/30/2018 at Unknown time acetaminophen 325 mg-caffeine 40 mg-butalbital 50 mg (FIORICET) per tablet, , Disp: , Rfl: , Unknown at Unknown time gabapentin (NEURONTIN) 300 mg capsule, , Disp: , Rfl: , 04/28/2018 at Unknown time apixaban (ELIQUIS) 5 mg tab tab(s), Take by mouth twice daily., Disp: , Rfl: , 04/30/2018 at Unknown time carvedilol (COREG) 25 mg tablet, Take 1 tablet by mouth twice daily with meals., Disp: 60 tablet, Rfl: 11, 04/30/2018 at 2230 meclizine (ANTIVERT) 12.5 mg tab, Take 2 tablets by mouth twice daily as needed., Disp: , Rfl: , 04/30/2018 at Unknown time lisinopril (ZESTRIL, PRINIVIL) 20 mg tablet, Take 1 tablet by mouth once daily., Disp: 30 tablet, Rfl: 11, 04/30/2018 [address] Unknown [address] pantoprazole [address] (PROTONIX) 40 mg tablet, Take 1 tablet by mouth once daily., Disp: 30 tablet, Rfl: 11, 04/30/2018 at Unknown time albuterol HFA (PROVENTIL HFA, VENTOLIN HFA) 90 mcg/actuation inhaler, Inhale 2 Puffs as instructed every 4 hours as needed., Disp: 1 Inhaler, Rfl: 0, Unknown at Unknown time ibuprofen (MOTRIN) 600 mg tablet, Take 1 tablet by mouth every 6 hours as needed for Pain or Fever., Disp: 28 tablet, Rfl: 0, 04/24/2018 promethazine (PHENERGAN) 25 mg tablet, Take 25 mg by mouth every 6 hours as needed., Disp: , Rfl: , Unknown at Unknown time oxyCODONE-acetaminophen (PERCOCET) 5-325 mg tablet, , Disp: , Rfl: , Not Taking sertraline (ZOLOFT) 100 mg tablet, 200 mg., Disp: , Rfl: , Not Taking busPIRone HCl 7.5 mg tablet, Take 7.5 mg by mouth twice daily. (RX given Sept and has 2 more refills), Disp: , Rfl: , Not Taking rOPINIRole (REQUIP) 1 mg tablet, Take 1 tablet by mouth daily at bedtime. For restless legs (Patient not taking: Reported on 04/16/2018
), Disp: 30 tablet, Rfl: 5, Not Taking lactated ringers infusion, 125 mL/hr, INTRAVENOUS, (PACU) CONTINUOUS fentaNYL 50 mcg/mL 25 mcg injection (SUBLIMAZE), 25 mcg, INTRAVENOUS, (PACU) PRN ondansetron (PF) 4 mg injection (ZOFRAN), 4 mg, INTRAVENOUS, (PACU) PRN lactated ringers infusion, 50 mL/hr, INTRAVENOUS, CONTINUOUS lidocaine 10 mg/mL (1 %) 1-2 mg injection (XYLOCAINE), 0.1- 0.2 mL, INTRADERMAL, PRN Allergies As of Date: 04/25/2018 Allergen Noted Reaction CELEBREX [CELECOXIB] 07/17/2016 Vomiting CLONIDINE 07/17/2016 Rash FENTANYL 07/17/2016 GI Upset LEVOFLOXACIN 04/13/2017 Rash PENICILLIN G 12/30/2013 Rash RELPAX [ELETRIPTAN HBR] 07/17/2016 Vomiting TOPAMAX [TOPIRAMATE] 07/17/2016 Vomiting VICODIN [HYDROCODONE-ACETAMINOPHE*12/30/2013 Vomiting WELLBUTRIN [BUPROPION HCL] 07/17/2016 Vomiting Fully Assessed 04/16/2018 COMPLETE REVIEW OF SYSTEMS: PAIN ASSESSMENT: Negative for pain, history of chronic pain, or current treatment for a chronic pain condition. Objective PHYSICAL EXAM: Patient Vitals in the past 24 hrs: 05/01/18 1148, BP:127/91, Temp:36.5 ?C (97.7 ?F), Temp src:Temporal Art, Pulse:74, Resp:16, SpO2:100 % There is no height or weight on file to calculate BMI. GENERAL: Alert, no distress, cooperative LUNGS: symmetric respiration HEART : RRR ABDOMEN: Soft, nontender EXTREMITIES: FROM NEURO: no anxiety GENITALIA: RECTAL: DATA: Diagnostic tests reviewed for today's visit: PSA (ng/mL) Date Value 11/21/2016 1.33 Glucose (mg/dL) Date Value 04/28/2018 77 BUN (mg/dL) Date Value 04/28/2018 13 Creatinine (mg/dL) Date Value 04/28/2018 0.83 Sodium (mEq/L) Date Value 04/28/2018 140 Potassium (mEq/L) Date Value 04/28/2018 4.2 Chloride (mEq/L) Date Value 04/28/2018 107 CO2 (mEq/L) Date Value 04/28/2018 28 Protein, Total (g/dL) Date Value 06/09/2016 7.0 Albumin (g/dL) Date Value 06/09/2016 4.1 Calcium (mg/dL) Date Value 04/28/2018 9.0 Alkaline Phosphatase (U/L) Date Value 06/09/2016 77 Bilirubin, Total (mg/dL) Date Value 06/09/2016 0.3 AST (U/L) Date Value 06/09/2016 26 ALT (U/L) Date Value 06/09/2016 29 CBC with diff: WBC 7.17 04/28/2018 RBC 5.36 04/28/2018 Hemoglobin 14.6 04/28/2018 Hematocrit 44.7 04/28/2018 MCV 83.4 04/28/2018 MCH 27.2 04/28/2018 MCHC 32.7 04/28/2018 RDW-CV 14.4 12/19/2016 Platelet Count 301 04/28/2018 MPV 9.3 04/28/2018 Neut% 49.5 12/19/2016 Lymph% 37.6 12/19/2016 [place]% 10.2 12/19/2016 Eosin% 1.9 12/19/2016 Baso% 0.8 12/19/2016 Abs Neut (ANC) 2.58 12/19/2016 Abs [place] 0.53 12/19/2016 Abs Eosin 0.10 12/19/2016 Abs Baso 0.04 12/19/2016 pH, Urine Date Value Ref Range Status 03/25/2018 6.0 5.0 - 8.0 Final Specific [place], Ur Date Value Ref Range Status 03/25/2018 1.018 1.005 - 1.030 Final Glucose, Urine Date Value Ref Range Status 03/25/2018 NEGATIVE Negative mg/dL Final Bilirubin, Urine Date Value Ref Range Status 03/25/2018 NEGATIVE Negative Final Ketones, Urine Date Value Ref Range Status 03/25/2018 NEGATIVE Negative mg/dL Final Hemoglobin/Blood,Ur Date Value Ref Range Status 03/25/2018 small Neg Final Protein, Urine Date Value Ref Range Status 03/25/2018 NEGATIVE Negative mg/dL Final Urobilinogen Date Value Ref Range Status 12/19/2016 Normal Normal Final Nitrites Urine Date Value Ref Range Status 03/25/2018 NEGATIVE Negative Final WBC, Urine Date Value Ref Range Status 03/25/2018 0.3 0.0 - 5.0 /hpf Final Radiology: see KUB SIGNATURE: Camron F Perez, MD PATIENT NAME: Attila Del Cid DATE: May 01, 2018 TIME: 12:47 PM PAGER: ANES PREOP Observed: 05/01/2018 Status: COMPLETED Source: [place] 11:41 AM CLINIC OTHER CAMPUS REPOSITORY HNO ID: [id number] Author: Keila Delgado Service: Anesthesiology Author Type: Physician Type: Anesthesia PreOp Filed: 05/01/2018 11:42 AM Note Text: ANESTHESIOLOGY DAY OF SURGERY NOTE SERVICE DATE: 05/01/2018 SERVICE TIME: 11:41 AM : 1970 Procedure(s) (LRB): LASER LITHOTRIPSY STONES URETER ~HOLMIUM (Right) INSERTION STENT DOUBLE J (Right) Surgeon(s): Camron Landa (Res) Giuseppe Estimated body mass index is 33.47 kg/m? as calculated from the following: Height as of 04/16/18: 180.3 cm (5' 11). Weight as of 04/16/18: 108.9 kg (240 lb). Most recent hematocrit and potassium results: Hematocrit 44.7 04/28/2018 Potassium 4.2 04/28/2018 ANES DOS/PREOP NOTE: Vitals: There were no vitals filed for this visit. 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 Kidney Stones Acute Right Flank Pain Ectatic Thoracic Aorta (Hcc) PAST MEDICAL HISTORY Diagnosis Date - Acute right flank pain 03/25/2018 - Aneurysm of ascending aorta (HCC) - Aortic aneurysm (HCC) - Arthritis - Atrial fibrillation (HCC) - Calculi, ureter - Calculus of kidney - Hematuria - Hypertension - Kidney stones 03/25/2018 - Pneumonia - Psychiatric disorder anxiety PAST SURGICAL HISTORY Procedure Laterality Date - BACK SURGERY HX 2015 FUSION, L4-L5 - COLONOSCOP W/ OR W/O BRSH SPEC 05/14/2014 Colonoscopy - EGD W/O OR W/BRUSH/WASH 05/14/2014 EGD - FRAGMENTING/KIDNEY STONE Right 2017 Lithotripsy - KNEE SURGERY HX Right 03/2017 patella replacement - [place] ANESTH,KNEE JOINT; NOS 12/2017 Left FAMILY HISTORY Problem Relation Age of Onset - Diabetes Mother - Colon Cancer Mother - Heart disease Mother - Hypertension Mother - Diabetes Sister - Skin Cancer Father Social History: Social History Substance Use Topics - Smoking status: Never Smoker - Smokeless tobacco: Never Used - Alcohol use No No current facility-administered medications on file prior to encounter. Current Outpatient Prescriptions on File Prior to Encounter: tamsulosin ER (FLOMAX) 0.4 mg cp24 every day apixaban (ELIQUIS) 5 mg tab tab(s) Take by mouth twice daily. carvedilol (COREG) 25 mg tablet Take 1 tablet by mouth twice daily with meals. meclizine (ANTIVERT) 12.5 mg tab Take 2 tablets by mouth twice daily as needed. pantoprazole DR (PROTONIX) 40 mg tablet Take 1 tablet by mouth once daily. acetaminophen 325 mg-caffeine 40 mg-butalbital 50 mg (FIORICET) per tablet gabapentin (NEURONTIN) 300 mg capsule oxyCODONE-acetaminophen (PERCOCET) 5-325 mg tablet sertraline (ZOLOFT) 100 mg tablet 200 mg. busPIRone HCl 7.5 mg tablet Take 7.5 mg by mouth twice daily. (RX given Sept and has 2 more refills) lisinopril (ZESTRIL, PRINIVIL) 20 mg tablet Take 1 tablet by mouth once daily. rOPINIRole (REQUIP) 1 mg tablet Take 1 tablet by mouth daily at bedtime. For restless legs (Patient not taking: Reported on 04/16/2018 ) albuterol HFA (PROVENTIL HFA, VENTOLIN HFA) 90 mcg/actuation inhaler Inhale 2 Puffs as instructed every 4 hours as needed. ibuprofen (MOTRIN) 600 mg tablet Take 1 tablet by mouth every 6 hours as needed for Pain or Fever. (Patient not taking: Reported on 04/16/2018 ) promethazine (PHENERGAN) 25 mg tablet Take 25 mg by mouth every 6 hours as needed. No current facility-administered medications for this encounter. Allergies: ALLERGIES Allergen Reactions - Celebrex [Celecoxib] Vomiting Nausea - Clonidine Rash - Fentanyl GI Upset - Levofloxacin Rash pt reports to [facility] PT 04-13-2017 - Penicillin G Rash - Relpax [Eletriptan * Vomiting Nausea - Topamax [Topiramate] Vomiting - Vicodin [Hydrocodon* Vomiting - Wellbutrin [Bupropi* Vomiting Nausea DOS EXAM: Adequate NPO status: Yes Anesthetic risks, benefits, alternatives, personnel and consent discussed: Yes Patient agrees to proceed: Yes Previous Anesthesia: No history of adverse event. Airway Assessment: MP 3; Neck ROM: Full ROM without neurologic symptoms; Airway Evaluation: Short Neck, Thick neck and Short Thyromental Distance Symptoms of Sleep Apnea: Hypertension and Male gender Dentition: Poor dentition Additional Physical Exam: Lungs: Patient health status unchanged since recent history and physical. See history and physical for exam findings. Cardiac: Patient health status unchanged since recent history and physical. See history and physical for exam findings. Additional Pertinent Findings: N/A Blood Products: Not anticipated for this procedure. Anesthetic Plan: General, Standard ASA Monitors Pain Management Plan: Parenteral or Oral ASA Class: 3 Other Medical Problems: None Chronic Beta Carolee medication administered within 24 hours: Yes I have interviewed and examined the patient. I have reviewed the medical record and/or the pre-anesthesia evaluation, pertinent labs, and test results. Significant changes in the patient's condition since the History and Physical, not otherwise documented in primary service progress notes: No This contains updated information obtained within 48 hours of Surgery/Procedure. SIGNATURE: Keila Delgado MD PATIENT NAME: Attila Del Cid DATE: May 01, 2018 TIME: 11:41 AM CSN: [id number] BRIEF OP NOT Observed: 05/01/2018 Status: COMPLETED Source: [place] 11:15 AM [facility] OTHER CAMPUS REPOSITORY [facility] ID: [id number] Author: Byron Chin Service: Urology Author Type: Resident Type: Brief Op Note Filed: 05/01/2018 1:47 PM Note Text: UROLOGY BRIEF OPERATIVE NOTE Date: 05/01/2018 Patient Name: Attila Del Cid Date of : 1970 Surgeon: Camron Perez MD Filler Machine Operator: Byron Chin MD Anesthesia: General Preop Diagnosis: Right renal calculi Postop Diagnosis: Same Procedure: Cystoscopy, pyelograms, right ureteroscopic laser lithotripsy Estimated Blood Loss: <50cc Findings: See OP note Specimens: Stone for analysis Complications: None SIGNATURE: Byron Chin MD PATIENT NAME: Attila Del Cid DATE: May 01, 2018 TIME: 11:15 AM PAGER/CONTACT #: [email or web address] Observed: 05/01/2018 Status: COMPLETED Source: [place] 12:00 AM CLINIC OTHER CAMPUS REPOSITORY Telephone (AKPRAD) ATTILA DEL CID ([id number]) 1970 M [facility] Date Time Provider Department 05/01/18 CAMRON PEREZ During your visit today, we recorded the following information about you: Camron Perez MD 05/01/2018 3:34 PM Signed See me in 2 - 3 months for post op , with KUB Allergies As of Date: 05/01/2018 Noted Allergy Reaction CELEBREX (CELECOXIB) 07/17/2016 11 - Vomiting Comments: Nausea CLONIDINE 07/17/2016 2 - Rash FENTANYL 07/17/2016 8 - GI Upset LEVOFLOXACIN 04/13/2017 2 - Rash Comments: pt reports to [facility] PT 6--2017 PENICILLIN G 12/30/2013 2 - Rash RELPAX (ELETRIPTAN HBR) 07/17/2016 11 - Vomiting Comments: Nausea TOPAMAX (TOPIRAMATE) 07/17/2016 11 - Vomiting VICODIN (HYDROCODONE-ACETAMINOPHE*12/30/2013 11 - Vomiting WELLBUTRIN (BUPROPION HCL) 07/17/2016 11 - Vomiting Comments: Nausea Date Reviewed: 05/01/2018 Reviewed by: Rossi (Rn) ALE Walls - Fully Assessed Reason for Visit: Future Appointment [256] Prescriptions as of 05/01/2018 Sig: DOCUSATE SODIUM 100 MG CAPSULE Take 1 capsule by mouth twice* FLECAINIDE 100 MG TABLET Take 100 mg by mouth twice da* AMLODIPINE 5 MG TABLET Take 5 mg by mouth once daily. BABY ASPIRIN ORAL Take 1 tablet by mouth once d* OXYCODONE-ACETAMINOPHEN 5 MG-* Take 1 tablet by mouth every * TAMSULOSIN 0.4 MG CAPSULE every day [id number]* GABAPENTIN 300 MG CAPSULE APIXABAN 5 MG TABLET Take by mouth twice daily. SERTRALINE 100 MG TABLET 200 mg. CARVEDILOL 25 MG TABLET Take 1 tablet by mouth twice * BUSPIRONE 7.5 MG TABLET Take 7.5 mg by mouth twice da* MECLIZINE 12.5 MG TABLET Take 2 tablets by mouth twice* LISINOPRIL 20 MG TABLET Take 1 tablet by mouth once d* ROPINIROLE 1 MG TABLET Take 1 tablet by mouth daily * Patient not taking: Reported on 04/16/2018 PANTOPRAZOLE 40 MG TABLET,DEL* Take 1 tablet by mouth once d* ALBUTEROL SULFATE HFA 90 MCG/* Inhale 2 Puffs as instructed * IBUPROFEN 600 MG TABLET Take 1 tablet by mouth every * PROMETHAZINE 25 MG TABLET Take 25 mg by mouth every 6 h* Problem List As Of Date 05/01/2018 Noted Resolved Primary osteoarthritis of right knee [M17.11] INVALID FOR* Chest pain at rest [R07.9] INVALID FOR* HTN (hypertension) [I10] INVALID FOR* Atrial fibrillation (HCC) [I48.91] INVALID FOR* More... Atypical chest pain [R07.89] INVALID FOR* Patellofemoral instability of right knee with p*INVALID FOR* Kidney stones [N20.0] INVALID FOR* Acute right flank pain [R10.9] INVALID FOR* Ectatic thoracic aorta (HCC) [I77.810] INVALID FOR* More... Encounter Status:Closed by CAMRON PEREZ MD on 05/01/18 OPERATIVE NO Observed: 05/01/2018 Status: COMPLETED Source: [place] 12:00 AM [facility] OTHER CAMPUS REPOSITORY [facility] ID: [id number] Author: Camron Perez Service: Urology Author Type: Physician Type: Operative Report Filed: 05/02/2018 7:05 AM Note Text: [facility] - Operative Report SURGEON: Camron Perez MD PATIENT NAME: ATTILA DEL CID CSN: [id number] DATE OF SURGERY: 05/01/2018 DATE OF : 1970 SEX/AGE: M/48 PATIENT TYPE: V HOSP SVC: UROL LOCATION: [address] DATE OF SURGERY: 05/01/2018 SURGEON: Camron Perez MD REFERRING PHYSICIAN: CAMRON PEREZ PACU RN: Byron Chin MD PREOPERATIVE DIAGNOSIS: Right renal calculi. POSTOPERATIVE DIAGNOSIS: Right renal calculi. PROCEDURE PERFORMED: Cystoscopy with right ureteroscopic stone basket extraction. ANTIBIOTICS: Clindamycin. ANESTHESIA: General. INDICATION FOR PROCEDURE: This patient is a 48-year-old male with a history of stones. Surveillance KUB showed 2 new stones in the right lower pole. He understood the risks, benefits, and alternatives to the procedure and consented to proceed. DESCRIPTION OF PROCEDURE: The patient was taken to the operating suite and after adequate general anesthesia was achieved, the patient was prepped and draped in normal sterile fashion in the dorsal lithotomy position. A #21-Jordanian cystoscope with 30-degree lens was inserted into the bladder without difficulty. The bladder was visualized in its entirety and demonstrated no abnormalities. Fluoroscopic imaging demonstrated the lower pole right renal stones to be radiopaque. KUB image was saved. A 0.035 inch wire was inserted into the right ureter and subsequently a medium ureteral access sheath was placed over the wire under fluoroscopic guidance. Once this was confirmed to be in good position, flexible ureteroscopy was performed and all calyces were visualized. There was 1 larger stone in the right lower pole, which was grasped with a Willows basket and removed with a stone basket. There were 2 other small stones, 1 in the lower pole and 1 in the mid pole which were also removed using a stone basket. These were sent for chemical analysis. Due to the very short duration of the procedure as well as the wide patency of the ureter, it was decided not to leave a ureteral stent. The ureter was examined as the scope was removed and demonstrated minimal to no edema and no erythema. The cystoscope was reinserted and the bladder was drained. The scope was then removed. The patient tolerated the procedure well and was taken to recovery room in stable condition. This procedure was performed by myself with the assistance of my resident as I was scrubbed for the entire procedure. Camron Perez MD Urology DB:alyce /[id number] PROGRESS Observed: 04/30/2018 Status: COMPLETED Source: [place] 2:10 PM CLINIC OTHER CAMPUS REPOSITORY O ID: [id number] Author: Cherelle Demarco Service: (none) Author Type: (none) Type: Progress Notes Filed: 04/30/2018 2:11 PM Note Text: I called Dr. Perez's office spoke to susan regarding consent per susan consent will be done day of surgery. [facility] INTERNAL MEDICINE Observed: 04/29/2018 Status: F Source: [place] OFFICE VISIT 10:46 AM [facility] Internal Medicine [address] [place] [address] [place] [address] OFFICE VISIT Date of Service: 04/28/18 MR#: [id number] Acct: [id number] Name: ATTILA DEL CID Rep #: [id number] : 1970 Provider: Nyla Bearden MD Age/Sex: 48/M Location: [facility] Status: Signed Intake Vital Signs04/28/18 Height 5 ft 11 in Intake Visit Reasons: 2 MO FU Chief Complaint: follow-up visit Is patient in pain?: No Allergies clonidine Allergy (Intermediate, Verified 04/22/18 09:37) rash levofloxacin [From Levaquin] Allergy (Verified 04/22/18 09:37) Rash Penicillins Allergy (Verified 04/22/18 09:37) Hives bupropion Adverse Reaction (Intermediate, Verified 04/22/18 09:37) vomiting celecoxib [From Celebrex] Adverse Reaction (Intermediate, Verified 04/22/18 09:37) vomiting eletriptan Adverse Reaction (Intermediate, Verified 04/22/18 09:37) Vomiting topiramate [From Topamax] Adverse Reaction (Intermediate, Verified 04/22/18 09:37) vomiting hydrocodone bitartrate [From Vicodin] Adverse Reaction (Verified 04/22/18 09:37) Nausea Medications Pantoprazole Sodium [Protonix] 40 mg PO DAILY 04/22/16 [History Confirmed 04/22/18] Carvedilol [Coreg] 25 mg PO BID 01/31/17 [History Confirmed 04/22/18] Albuterol Inhaler [Ventolin Hfa] 1 - 2 puff INHALATION Q4H PRN PRN #1 inhaler 07/15/17 [Rx Confirmed 04/22/18] Apixaban [Eliquis] 5 mg PO BID 09/21/17 [History Confirmed 04/22/18] meclizine 12.5 mg tablet 12.5 mg PO QODAY PRN #30 tab 01/14/18 [Rx Confirmed 04/22/18] amlodipine 5 mg tablet 5 mg PO DAILY #90 tab 02/26/18 [Rx Confirmed 04/22/18] Furosemide 40 mg PO QDAY 03/20/18 [History Confirmed 04/22/18] Aspirin [Aspir-Low] 81 mg PO QDAY 04/09/18 [History Confirmed 04/22/18] Tamsulosin HCl [Flomax] 0.4 mg PO QDAY 04/09/18 [History Confirmed 04/22/18] lisinopril 20 mg tablet 20 mg PO BID #60 tab 04/18/18 [Rx Confirmed 04/22/18] atorvastatin 20 mg tablet 20 mg PO QDAY #90 tab 04/28/18 [Rx Confirmed 04/28/18] escitalopram 10 mg tablet 15 mg PO QDAY #90 tab 04/28/18 [Rx Confirmed 04/28/18] gabapentin 100 mg capsule 100 mg PO QHS cap 04/28/18 [History Confirmed 04/28/18] PFSH Medical History Ascending aorta dilatation (Chronic) SVT (supraventricular tachycardia) (Chronic) LORETTA (obstructive sleep apnea) (Chronic) Atherosclerotic heart disease of [place] coronary artery without angina pectoris (Chronic) Nephrolithiasis (Chronic) HTN (hypertension) (Chronic) Anxiety (Chronic) PAF (paroxysmal atrial fibrillation) (Chronic) GERD (gastroesophageal reflux disease) (Chronic) Obesity (BMI 30-39.9) (Chronic) BPPV (benign paroxysmal positional vertigo) (Chronic) HLD (hyperlipidemia) (Chronic) Thoracic aortic aneurysm without rupture (Chronic) Surgical History History of left heart catheterization (Chronic) History of cardiac radiofrequency ablation (Resolved) H/O arthroscopic knee surgery (Resolved) History of back surgery (Resolved) History of right knee surgery (Resolved) Family History Brother Hypertension Mother Heart disease Colon cancer Sister Diabetes Sister Diabetes Sister Diabetes Social History Smoking Status: Never smoker alcohol intake: never substance use type: does not use caffeine: No what type of physical activity do you participate in: walking frequency: 1-2 times per week duration: 15-30 minutes/day seatbelt use: always do you feel safe at home: Yes HPI HPI Chief Complaint: follow-up visit Details: ATTILA DEL CID is a 48yo M who presents to the office today for follow-up of his anxiety. He has done well since starting Lexapro. He denies any new complaints at this time. Scheduled to follow-up at the [facility] to start on sotalol. ROS Const Constitutional: No weight change, body ache, chills, fatigue, sleep problems, fever(s), change in appetite, snoring, weakness, frequent falls, headache(s) or excessive sweating Eyes Eyes: No change in vision, eye pain, light sensitivity or blurry vision ENT ENT: No headache(s), abnormal hearing, ear pain, tinnitus, nasal congestion, sore throat or neck pain Resp Respiratory: No snoring, cough, shortness of breath or wheezing Cardio Cardiology: No excessive sweating, chest pain at rest, chest pain with exertion, shortness of breath, dyspnea on exertion, palpitations, orthopnea or lightheadedness Gastro GI: No abdominal pain, change in bowel habits, constipation, diarrhea, vomiting, nausea/dyspepsia or cramping Genitourinary Male: No painful urination, urinary incontinence, urinary frequency, urinary urgency, blood in urine, testicle pain or other Musc Musculoskeletal: No neck pain, abnormal walking, joint pain, back pain, limited range of motion, numbness or tingling Skin Skin: No redness, dry skin, itching, lesions, wounds or rash Neuro Neurology: No weakness, frequent falls, headache(s), abnormal hearing, abnormal walking, numbness, tingling, abnormal speech, dizziness or memory loss Psych Psychiatric: No change in appetite, No memory loss, No anxiety, No depression, No Thoughts of harming yourself/Others Endo Endocrine: No fatigue, excessive sweating, cold intolerance, increased thirst/drinking, heat intolerance, flushing or increased hunger Aller/Imm Allergy/Immunologic: No wheezing, itchy eyes, hives or seasonal allergy symptoms Matias/Lymp Hematologic/Lymphatic: No easy bleeding, easy bruising or enlarged lymph nodes Exam Const General: cooperative, no acute distress Orientation: alert, awake, oriented x3 HENMT Head: atraumatic, normocephalic Ears: hearing grossly normal bilaterally Resp Effort AND Inspection: normal respiratory effort, able to speak in complete sentences Auscultation: Bilateral: Clear to Auscultation Cardio Rate: regular rate Heart Sounds: S1 normal, S2 normal GI Palpation: soft, no hepatosplenomegaly Neuro General: alert, awake, oriented x3, moves all extremities, CN's II-XI intact bilaterally Extrem General: no clubbing, cyanosis or edema Psych Appearance: grossly normal Mood: congruent mood Affect: normal affect Assessment AND Plan 1. Anxiety F41.9 Plan Better controlled on Lexapro. Increase to 15 mg daily. Follow-up in 1 month, if still not at goal we will increase to 20 mg. 2. PAF (paroxysmal atrial fibrillation) I48.0 Plan Stable. In normal sinus rhythm at this time. Scheduled to follow-up at [facility] to be started on sotalol. Will follow. This note was generated with [employer] dictation software. It may contain incorrect words, spelling, and punctuation that were not noted in checking the note before signing. Plan Detail Other Medications New: Changed: Discontinued: Follow Up 1 Month Coding Level of Care Code Off vis,est,level 3 Diagnoses Anxiety F41.9 PAF (paroxysmal atrial fibrillation) I48.0 04/29/18 1046 <Electronically signed by Nyla Bearden MD> Date Nyla Bearden MD Cosigner Signature: Date (if applicable) CC: HEMOGRAM Collected: 04/28/2018 Status: F Source: [facility] 2:20 PM HEALTH SYSTEM REPOSITORY TYPE CODE TESTS RESULT OUT OF REFERENCE UNITS RANGE LAB WBC(LOINC) 4.23-9.07 thou/cmm WBC 7.17 LAB RBC(LOINC) 4.63-6.08 mil/cmm RBC 5.36 LAB HGB(LOINC) 13.7-17.5 g/dL Hgb 14.6 LAB HCT(LOINC) 40.1-51.0 % Hct 44.7 LAB MCV(LOINC) 83.2-95.6 fl MCV 83.4 LAB MCH(LOINC) 25.7-32.2 pg MCH 27.2 LAB MCHC(LOINC) 32.3-36.5 % MCHC 32.7 LAB RDW(LOINC) 11.6-14.4 % High RDW 15.0 LAB RDWSD(LOINC 36.1-45.8 fl ) RDW SD 45.0 LAB PLT(LOINC) 141-365 thou/cmm Platelet 301 LAB MPV(LOINC) 8.7-12.0 fl MPV 9.3 Performed By: #### CBC1 #### [facility] [address] [place] [address] BASIC PANEL Collected: 04/28/2018 Status: F Source: [facility] 2:20 PM HEALTH SYSTEM REPOSITORY TYPE CODE TESTS RESULT OUT OF REFERENCE UNITS RANGE LAB NA(LOINC) 136-145 mEq/L Sodium Blood 140 LAB K(LOINC) 3.5-5.1 mEq/L Potassium Blood 4.2 LAB CL(LOINC) 98-107 mEq/L Chloride Blood 107 LAB CO2(LOINC) 21-32 mEq/L CO2 Blood 28 LAB GLU(LOINC) 70-99 mg/dL Glucose Blood 77 LAB BUN(LOINC) 7-18 mg/dL BUN Blood 13 LAB CREA(LOINC 0.67-1.17 mg/dL ) Creatinine Blood 0.83 LAB CA(LOINC) 8.5-10.1 mg/dL Calcium Blood 9.0 LAB ANGAP(LOIN 8-16 C) Anion Gap 9 Performed By: #### P8 #### [place] [address] MDRD GFR Collected: 04/28/2018 Status: F Source: [facility] 2:20 PM HEALTH SYSTEM REPOSITORY TYPE CODE TESTS RESULT OUT OF RANGE REFERENCE UNITS LAB GFRFN(LOINC >60mL/min/1.73m ) 2 eGFR >60 Result Comment: If the patient is , multiply the result by 1.210. Performed By: #### GFR #### [facility] [address] [place] [address] HOSP Observed: 04/25/2018 Status: COMPLETED Source: [place] 12:00 AM CLINIC OTHER CAMPUS REPOSITORY Patient:Attila Del Cid MRN: <[id number]> Height:5' 11(1.803 m) Weight:240 lb (108.863 kg) Outpatient Medications as of 05/02/18: docusate sodium (COLACE) 100 mg capsule flecainide (TAMBOCOR) 100 mg tablet amLODIPine (NORVASC) 5 mg tablet BABY ASPIRIN ORAL oxyCODONE-acetaminophen (PERCOCET) 5-325 mg tablet tamsulosin ER (FLOMAX) 0.4 mg cp24 acetaminophen 325 mg-caffeine 40 mg-butalbital 50 mg (FIORICET) per tablet gabapentin (NEURONTIN) 300 mg capsule apixaban (ELIQUIS) 5 mg tab tab(s) sertraline (ZOLOFT) 100 mg tablet carvedilol (COREG) 25 mg tablet busPIRone HCl 7.5 mg tablet meclizine (ANTIVERT) 12.5 mg tab lisinopril (ZESTRIL, PRINIVIL) 20 mg tablet rOPINIRole (REQUIP) [address] (PROTONIX) 40 mg tablet albuterol HFA (PROVENTIL HFA, VENTOLIN HFA) 90 mcg/actuation inhaler ibuprofen (MOTRIN) 600 mg tablet promethazine (PHENERGAN) 25 mg tablet Admission/Clinic Administered Medications as of 05/02/18: ipratropium-albuterol 3 mL nebulizer solution (DUONEB) lactated ringers infusion fentaNYL 50 mcg/mL 50 mcg injection (SUBLIMAZE) HYDROmorphone 0.5 mg injection (DILAUDID) oxyCODONE IR 5 mg tab(s) (ROXICODONE) acetaminophen 650 mg tab(s) (TYLENOL) ondansetron (PF) 4 mg injection (ZOFRAN) prochlorperazine 10 mg injection (COMPAZINE) labetalol 5 mg injection syringe (NORMODYNE) meperidine (PF) 12.5 mg injection (DEMEROL) ciprofloxacin 400 mg in D5W 200 mL (CIPRO) lactated ringers infusion lidocaine 10 mg/mL (1 %) 1-2 mg injection (XYLOCAINE) carvedilol 25 mg tab(s) (COREG) busPIRone 7.5 mg tab(s) (BUSPAR) flecainide 100 mg tab(s) (TAMBOCOR) gabapentin 300 mg cap(s) (NEURONTIN) lisinopril 20 mg tab(s) (ZESTRIL, PRINIVIL) albuterol HFA 90 mcg/actuation 2 Puff (PROVENTIL HFA, VENTOLIN HFA) amLODIPine 5 mg tab(s) (NORVASC) apixaban 5 mg tab(s) (ELIQUIS) sertraline 200 mg tab(s) (ZOLOFT) pantoprazole DR 40 mg tab(s) (PROTONIX) NaCl 0.9% iv infusion oxyCODONE-acetaminophen 5-325 mg 1-2 tablet (PERCOCET) morphine 1-2 mg injection ondansetron (PF) 4 mg injection (ZOFRAN) tamsulosin ER 0.4 mg cap(s) (FLOMAX) prochlorperazine 5 mg injection (COMPAZINE) ketorolac 30 mg injection (TORADOL) ibuprofen 600 mg tab(s) (MOTRIN) docusate sodium 100 mg cap(s) (COLACE) Problem List: Primary osteoarthritis of right knee [M17.11] Chest pain at rest [R07.9] HTN (hypertension) [I10] Atrial fibrillation (HCC) [I48.91] Atypical chest pain [R07.89] 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 [M25.361, M25.561] Kidney stones [N20.0] Acute right flank pain [R10.9] Ectatic thoracic aorta (HCC) [I77.810] Renal calculus, right [N20.0] Allergies: Celebrex [Celecoxib] Clonidine Fentanyl Levofloxacin Penicillin G Relpax [Eletriptan Hbr] Topamax [Topiramate] Vicodin [Hydrocodone-Acetaminophen] Wellbutrin [Bupropion Hcl] Date Verified: 05/02/18 Lab Values Lab Value Units Date High Low POTA* 3.7 mEq/L 05/02/2018 5.1 3.5 MATIAS* 40.5 % 05/02/2018 51.0 40.1 Progress Notes (AK PROVIDER ADULT): Camron Perez MD 05/01/2018 3:34 PM Signed See me in 2 - 3 months for post op , with JUDY Wan 05/01/2018 4:15 PM Signed May 01, 2018 4:15 PM Left patient a message to call the office to schedule-SANAM Wan Progress Notes (): Cherelle Demarco 04/30/2018 2:11 PM Signed I called Dr. Perez's office spoke to susan regarding consent per susan consent will be done day of surgery. Melinda Perez MD 05/02/2018 7:05 AM Signed [facility] - Operative Report SURGEON: Camron Perez MD PATIENT NAME: ATTILA DEL CID CSN: [id number] DATE OF SURGERY: 05/01/2018 DATE OF : 1970 SEX/AGE: M/48 PATIENT TYPE: V HOSP SVC: UROL LOCATION: [address] DATE OF SURGERY: 05/01/2018 SURGEON: Camron Perez MD REFERRING PHYSICIAN: CAMRON PEREZ PACU RN: Byron Chin MD PREOPERATIVE DIAGNOSIS: Right renal calculi. POSTOPERATIVE DIAGNOSIS: Right renal calculi. PROCEDURE PERFORMED: Cystoscopy with right ureteroscopic stone basket extraction. ANTIBIOTICS: Clindamycin. ANESTHESIA: General. INDICATION FOR PROCEDURE: This patient is a 48-year-old male with a history of stones. Surveillance KUB showed 2 new stones in the right lower pole. He understood the risks, benefits, and alternatives to the procedure and consented to proceed. DESCRIPTION OF PROCEDURE: The patient was taken to the operating suite and after adequate general anesthesia was achieved, the patient was prepped and draped in normal sterile fashion in the dorsal lithotomy position. A #21-Jordanian cystoscope with 30-degree lens was inserted into the bladder without difficulty. The bladder was visualized in its entirety and demonstrated no abnormalities. Fluoroscopic imaging demonstrated the lower pole right renal stones to be radiopaque. KUB image was saved. A 0.035 inch wire was inserted into the right ureter and subsequently a medium ureteral access sheath was placed over the wire under fluoroscopic guidance. Once this was confirmed to be in good position, flexible ureteroscopy was performed and all calyces were visualized. There was 1 larger stone in the right lower pole, which was grasped with a [place] basket and removed with a stone basket. There were 2 other small stones, 1 in the lower pole and 1 in the mid pole which were also removed using a stone basket. These were sent for chemical analysis. Due to the very short duration of the procedure as well as the wide patency of the ureter, it was decided not to leave a ureteral stent. The ureter was examined as the scope was removed and demonstrated minimal to no edema and no erythema. The cystoscope was reinserted and the bladder was drained. The scope was then removed. The patient tolerated the procedure well and was taken to recovery room in stable condition. This procedure was performed by myself with the assistance of my resident as I was scrubbed for the entire procedure. Camron Perez MD Urology DB:[email or web address] /[id number] Byron Chin MD 05/01/2018 1:47 PM Signed UROLOGY BRIEF OPERATIVE NOTE Date: 05/01/2018 Patient Name: Attila Del Cid Date of : 1970 Surgeon: Camron Perez MD Filler Machine Operator: Byron Chin MD Anesthesia: General Preop Diagnosis: Right renal calculi Postop Diagnosis: Same Procedure: Cystoscopy, pyelograms, right ureteroscopic laser lithotripsy Estimated Blood Loss: <50cc Findings: See OP note Specimens: Stone for analysis Complications: None SIGNATURE: Byron Chin MD PATIENT NAME: Attila Del Cid DATE: May 01, 2018 TIME: 11:15 AM PAGER/CONTACT #: Keila Delgado MD 05/01/2018 11:42 AM Signed ANESTHESIOLOGY DAY OF SURGERY NOTE SERVICE DATE: 05/01/2018 SERVICE TIME: 11:41 AM : 1970 Procedure(s) (LRB): LASER LITHOTRIPSY STONES URETER ~HOLMIUM (Right) INSERTION STENT DOUBLE J (Right) Surgeon(s): Camron Landa (Res) Giuseppe Estimated body mass index is 33.47 kg/m? as calculated from the following: Height as of 04/16/18: 180.3 cm (5' 11). Weight as of 04/16/18: 108.9 kg (240 lb). Most recent hematocrit and potassium results: Hematocrit 44.7 04/28/2018 Potassium 4.2 04/28/2018 ANES DOS/PREOP NOTE: Vitals: There were no vitals filed for this visit. 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 Kidney Stones Acute Right Flank Pain Ectatic Thoracic Aorta (Hcc) PAST MEDICAL HISTORY Diagnosis Date - Acute right flank pain 03/25/2018 - Aneurysm of ascending aorta (HCC) - Aortic aneurysm (HCC) - Arthritis - Atrial fibrillation (HCC) - Calculi, ureter - Calculus of kidney - Hematuria - Hypertension - Kidney stones 03/25/2018 - Pneumonia - Psychiatric disorder anxiety PAST SURGICAL HISTORY Procedure Laterality Date - BACK SURGERY HX 2015 FUSION, L4-L5 - COLONOSCOP W/ OR W/O BRSH SPEC 05/14/2014 Colonoscopy - EGD W/O OR W/BRUSH/WASH 05/14/2014 EGD - FRAGMENTING/KIDNEY STONE Right 2017 Lithotripsy - KNEE SURGERY HX Right 03/2017 patella replacement - [place] ANESTH,KNEE JOINT; NOS 12/2017 Left FAMILY HISTORY Problem Relation Age of Onset - Diabetes Mother - Colon Cancer Mother - Heart disease Mother - Hypertension Mother - Diabetes Sister - Skin Cancer Father Social History: Social History Substance Use Topics - Smoking status: Never Smoker - Smokeless tobacco: Never Used - Alcohol use No No current facility-administered medications on file prior to encounter. Current Outpatient Prescriptions on File Prior to Encounter: tamsulosin ER (FLOMAX) 0.4 mg cp24 every day apixaban (ELIQUIS) 5 mg tab tab(s) Take by mouth twice daily. carvedilol (COREG) 25 mg tablet Take 1 tablet by mouth twice daily with meals. meclizine (ANTIVERT) 12.5 mg tab Take 2 tablets by mouth twice daily as needed. pantoprazole DR (PROTONIX) 40 mg tablet Take 1 tablet by mouth once daily. acetaminophen 325 mg-caffeine 40 mg-butalbital 50 mg (FIORICET) per tablet gabapentin (NEURONTIN) 300 mg capsule oxyCODONE-acetaminophen (PERCOCET) 5-325 mg tablet sertraline (ZOLOFT) 100 mg tablet 200 mg. busPIRone HCl 7.5 mg tablet Take 7.5 mg by mouth twice daily. (RX given Sept and has 2 more refills) lisinopril (ZESTRIL, PRINIVIL) 20 mg tablet Take 1 tablet by mouth once daily. rOPINIRole (REQUIP) 1 mg tablet Take 1 tablet by mouth daily at bedtime. For restless legs (Patient not taking: Reported on 04/16/2018 ) albuterol HFA (PROVENTIL HFA, VENTOLIN HFA) 90 mcg/actuation inhaler Inhale 2 Puffs as instructed every 4 hours as needed. ibuprofen (MOTRIN) 600 mg tablet Take 1 tablet by mouth every 6 hours as needed for Pain or Fever. (Patient not taking: Reported on 04/16/2018 ) promethazine (PHENERGAN) 25 mg tablet Take 25 mg by mouth every 6 hours as needed. No current facility-administered medications for this encounter. Allergies: ALLERGIES Allergen Reactions - Celebrex [Celecoxib] Vomiting Nausea - Clonidine Rash - Fentanyl GI Upset - Levofloxacin Rash pt reports to [facility] PT 04-13-2017 - Penicillin G Rash - Relpax [Eletriptan * Vomiting Nausea - Topamax [Topiramate] Vomiting - Vicodin [Hydrocodon* Vomiting - Wellbutrin [Bupropi* Vomiting Nausea DOS EXAM: Adequate NPO status: Yes Anesthetic risks, benefits, alternatives, personnel and consent discussed: Yes Patient agrees to proceed: Yes Previous Anesthesia: No history of adverse event. Airway Assessment: MP 3; Neck ROM: Full ROM without neurologic symptoms; Airway Evaluation: Short Neck, Thick neck and Short Thyromental Distance Symptoms of Sleep Apnea: Hypertension and Male gender Dentition: Poor dentition Additional Physical Exam: Lungs: Patient health status unchanged since recent history and physical. See history and physical for exam findings. Cardiac: Patient health status unchanged since recent history and physical. See history and physical for exam findings. Additional Pertinent Findings: N/A Blood Products: Not anticipated for this procedure. Anesthetic Plan: General, Standard ASA Monitors Pain Management Plan: Parenteral or Oral ASA Class: 3 Other Medical Problems: None Chronic Beta Carolee medication administered within 24 hours: Yes I have interviewed and examined the patient. I have reviewed the medical record and/or the pre-anesthesia evaluation, pertinent labs, and test results. Significant changes in the patient's condition since the History and Physical, not otherwise documented in primary service progress notes: No This contains updated information obtained within 48 hours of Surgery/Procedure. SIGNATURE: Keila Delgado MD PATIENT NAME: Attila Del Cid DATE: May 01, 2018 TIME: 11:41 AM CSN: [id number] Camron Perez MD 05/01/2018 12:49 PM Signed H and P : UROLOGY SERVICE SERVICE DATE: 05/01/2018 SERVICE TIME: 12:47 PM Assessment: R renal calc Plan: C and P , R ULL < R stent Subjective Mr. Del Cid is a 48 year old male who presents for R renal calc laser litho ; Prior stones, KUB showed stone burden ; cannot do ESWL , due to anticoag and ? Of aneurysm ; . PAST MEDICAL HISTORY Diagnosis Date - Acute right flank pain 03/25/2018 - Aneurysm of ascending aorta (HCC) - Aortic aneurysm (HCC) - Arthritis - Atrial fibrillation (HCC) - Calculi, ureter - Calculus of kidney - Hematuria - Hypertension - Kidney stones 03/25/2018 - Pneumonia - Psychiatric disorder anxiety PAST SURGICAL HISTORY Procedure Laterality Date - BACK SURGERY HX 2015 FUSION, L4-L5 - COLONOSCOP W/ OR W/O BRSH SPEC 05/14/2014 Colonoscopy - EGD W/O OR W/BRUSH/WASH 05/14/2014 EGD - FRAGMENTING/KIDNEY STONE Right 2017 Lithotripsy - KNEE SURGERY HX Right 03/2017 patella replacement - [place] ANESTH,KNEE JOINT; NOS 12/2017 Left FAMILY HISTORY Problem Relation Age of Onset - Diabetes Mother - Colon Cancer Mother - Heart disease Mother - Hypertension Mother - Diabetes Sister - Skin Cancer Father Social History Substance Use Topics - Smoking status: Never Smoker - Smokeless tobacco: Never Used - Alcohol use No flecainide (TAMBOCOR) 100 mg tablet, Take 100 mg by mouth twice daily., Disp: , Rfl: , 04/30/2018 at Unknown time amLODIPine (NORVASC) 5 mg tablet, Take 5 mg by mouth once daily., Disp: , Rfl: , 04/30/2018 at Unknown time BABY ASPIRIN ORAL, Take 1 tablet by mouth once daily., Disp: , Rfl: , 04/30/2018 at Unknown time tamsulosin ER (FLOMAX) 0.4 mg cp24, every day, Disp: , Rfl: , 04/30/2018 at Unknown time acetaminophen 325 mg-caffeine 40 mg-butalbital 50 mg (FIORICET) per tablet, , Disp: , Rfl: , Unknown at Unknown time gabapentin (NEURONTIN) 300 mg capsule, , Disp: , Rfl: , 04/28/2018 at Unknown time apixaban (ELIQUIS) 5 mg tab tab(s), Take by mouth twice daily., Disp: , Rfl: , 04/30/2018 at Unknown time carvedilol (COREG) 25 mg tablet, Take 1 tablet by mouth twice daily with meals., Disp: 60 tablet, Rfl: , 04/30/2018 at 2230 meclizine (ANTIVERT) 12.5 mg tab, Take 2 tablets by mouth twice daily as needed., Disp: , Rfl: , 04/30/2018 at Unknown time lisinopril (ZESTRIL, PRINIVIL) 20 mg tablet, Take 1 tablet by mouth once daily., Disp: 30 tablet, Rfl: , 04/30/2018 at Unknown time pantoprazole DR (PROTONIX) 40 mg tablet, Take 1 tablet by mouth once daily., Disp: 30 tablet, Rfl: , 04/30/2018 at Unknown time albuterol HFA (PROVENTIL HFA, VENTOLIN HFA) 90 mcg/actuation inhaler, Inhale 2 Puffs as instructed every 4 hours as needed., Disp: 1 Inhaler, Rfl: 0, Unknown at Unknown time ibuprofen (MOTRIN) 600 mg tablet, Take 1 tablet by mouth every 6 hours as needed for Pain or Fever., Disp: 28 tablet, Rfl: 0, 04/24/2018 promethazine (PHENERGAN) 25 mg tablet, Take 25 mg by mouth every 6 hours as needed., Disp: , Rfl: , Unknown at Unknown time oxyCODONE-acetaminophen (PERCOCET) 5-325 mg tablet, , Disp: , Rfl: , Not Taking sertraline (ZOLOFT) 100 mg tablet, 200 mg., Disp: , Rfl: , Not Taking busPIRone HCl 7.5 mg tablet, Take 7.5 mg by mouth twice daily. (RX given Sept and has 2 more refills), Disp: , Rfl: , Not Taking rOPINIRole (REQUIP) 1 mg tablet, Take 1 tablet by mouth daily at bedtime. For restless legs (Patient not taking: Reported on 04/16/2018
), Disp: 30 tablet, Rfl: 5, Not Taking lactated ringers infusion, 125 mL/hr, INTRAVENOUS, (PACU) CONTINUOUS fentaNYL 50 mcg/mL 25 mcg injection (SUBLIMAZE), 25 mcg, INTRAVENOUS, (PACU) PRN ondansetron (PF) 4 mg injection (ZOFRAN), 4 mg, INTRAVENOUS, (PACU) PRN lactated ringers infusion, 50 mL/hr, INTRAVENOUS, CONTINUOUS lidocaine 10 mg/mL (1 %) 1-2 mg injection (XYLOCAINE), 0.1- 0.2 mL, INTRADERMAL, PRN Allergies As of Date: 04/25/2018 Allergen Noted Reaction CELEBREX [CELECOXIB] 07/17/2016 Vomiting CLONIDINE 07/17/2016 Rash FENTANYL 07/17/2016 GI Upset LEVOFLOXACIN 04/13/2017 Rash PENICILLIN G 12/30/2013 Rash RELPAX [ELETRIPTAN HBR] 07/17/2016 Vomiting TOPAMAX [TOPIRAMATE] 07/17/2016 Vomiting VICODIN [HYDROCODONE-ACETAMINOPHE*12/30/2013 Vomiting WELLBUTRIN [BUPROPION HCL] 07/17/2016 Vomiting Fully Assessed 04/16/2018 COMPLETE REVIEW OF SYSTEMS: PAIN ASSESSMENT: Negative for pain, history of chronic pain, or current treatment for a chronic pain condition. Objective PHYSICAL EXAM: Patient Vitals in the past 24 hrs: 05/01/18 1148, BP:127/91, Temp:36.5 ?C (97.7 ?F), Temp src:Temporal Art, Pulse:74, Resp:16, SpO2:100 % There is no height or weight on file to calculate BMI. GENERAL: Alert, no distress, cooperative LUNGS: symmetric respiration HEART : RRR ABDOMEN: Soft, nontender EXTREMITIES: FROM NEURO: no anxiety GENITALIA: RECTAL: DATA: Diagnostic tests reviewed for today's visit: PSA (ng/mL) Date Value 11/21/2016 1.33 Glucose (mg/dL) Date Value 04/28/2018 77 BUN (mg/dL) Date Value 04/28/2018 13 Creatinine (mg/dL) Date Value 04/28/2018 0.83 Sodium (mEq/L) Date Value 04/28/2018 140 Potassium (mEq/L) Date Value 04/28/2018 4.2 Chloride (mEq/L) Date Value 04/28/2018 107 CO2 (mEq/L) Date Value 04/28/2018 28 Protein, Total (g/dL) Date Value 06/09/2016 7.0 Albumin (g/dL) Date Value 06/09/2016 4.1 Calcium (mg/dL) Date Value 04/28/2018 9.0 Alkaline Phosphatase (U/L) Date Value 06/09/2016 77 Bilirubin, Total (mg/dL) Date Value 06/09/2016 0.3 AST (U/L) Date Value 06/09/2016 26 ALT (U/L) Date Value 06/09/2016 29 CBC with diff: WBC 7.17 04/28/2018 RBC 5.36 04/28/2018 Hemoglobin 14.6 04/28/2018 Hematocrit 44.7 04/28/2018 MCV 83.4 04/28/2018 MCH 27.2 04/28/2018 MCHC 32.7 04/28/2018 RDW-CV 14.4 12/19/2016 Platelet Count 301 04/28/2018 MPV 9.3 04/28/2018 Neut% 49.5 12/19/2016 Lymph% 37.6 12/19/2016 [place]% 10.2 12/19/2016 Eosin% 1.9 12/19/2016 Baso% 0.8 12/19/2016 Abs Neut (ANC) 2.58 12/19/2016 Abs [place] 0.53 12/19/2016 Abs Eosin 0.10 12/19/2016 Abs Baso 0.04 12/19/2016 pH, Urine Date Value Ref Range Status 03/25/2018 6.0 5.0 - 8.0 Final Specific [place], Ur Date Value Ref Range Status 03/25/2018 1.018 1.005 - 1.030 Final Glucose, Urine Date Value Ref Range Status 03/25/2018 NEGATIVE Negative mg/dL Final Bilirubin, Urine Date Value Ref Range Status 03/25/2018 NEGATIVE Negative Final Ketones, Urine Date Value Ref Range Status 03/25/2018 NEGATIVE Negative mg/dL Final Hemoglobin/Blood,Ur Date Value Ref Range Status 03/25/2018 small Neg Final Protein, Urine Date Value Ref Range Status 03/25/2018 NEGATIVE Negative mg/dL Final Urobilinogen Date Value Ref Range Status 12/19/2016 Normal Normal Final Nitrites Urine Date Value Ref Range Status 03/25/2018 NEGATIVE Negative Final WBC, Urine Date Value Ref Range Status 03/25/2018 0.3 0.0 - 5.0 /hpf Final Radiology: see KUB SIGNATURE: Camron Perez MD PATIENT NAME: Attila Del Cid DATE: May 01, 2018 TIME: 12:47 PM PAGER: Rossi Walls, RN, RN 05/01/2018 4:17 PM Signed Pt having 10/[address] Chin aware and ordered toradol. Bladder scanned for 97cc. Pt states he doesn't feel like he has to void. Emilia Nathan, RN, RN 05/01/2018 4:[address] Chin notified of pt continued c/o pain 07/30. States someone will be in to evaluate. Family to bedside. Emilia Nathan RN, RN 05/01/2018 5:[address] Chin visits. Keila Delgado MD 05/01/2018 5:41 PM Signed POST ANESTHESIA EVALUATION NOTE SERVICE DATE: 05/01/2018 SERVICE TIME: 5:40 PM : 1970 Vitals: 05/01/18 1148 05/01/18 1352 Temp: 36.5 ?C (97.7 ?F) 36.2 ?C (97.2 ?F) 05/01/18 1630 05/01/18 1645 05/01/18 1700 05/01/18 1715 BP: 141/101 142/103 143/110 138/102 05/01/18 1630 05/01/18 1645 05/01/18 1700 05/01/18 1715 Pulse: 67 78 66 63 05/01/18 1630 05/01/18 1645 05/01/18 1700 05/01/18 1715 Resp: 16 21 17 18 05/01/18 1630 05/01/18 1645 05/01/18 1700 05/01/18 1715 SpO2: 96% 96% 100% 100% Validated Vital Signs: Yes POST ANES STATUS: No apparent anesthetic complications. The patient is appropriately hydrated with stable respiratory and cardiovascular status. Patient has safe and adequate airway control. The patient has appropriate pain relief and no significant post operative nausea or vomiting. The patient has achieved baseline mental status. Further assessment by Anesthesia Service: None Other Remarks: SIGNATURE: Keila Delgado MD PATIENT NAME: Attila Del Cid DATE: May 01, 2018 TIME: 5:40 PM PAGER/CONTACT #: Rosi Reyes RN, RN 05/01/2018 7:17 PM Signed Pt eating dinner in nad aware that he will be staying on in PACU Rosi Reyes RN, RN 05/01/2018 7:34 PM Signed Pt moved to PACU spot 1. Placed in hospital bed Rosi Reyes RN, RN 05/01/2018 7:42 PM Signed {blood work sent to lab Rosi Reyes RN, RN 05/01/2018 9:36 PM Signed {Pt remains aANDox3. Polite and appropriate. Walked per request and fan placed on pt. has left for the night, but PACU phone number provided. Medicated per order for c/o right flank pain. Extra snacks and drink given per request. Urinal at bedside and call light within reach. Pt watching TV. Refuses Flomax this evening and states that he will take it in the am Rosi Reyes RN RN 05/02/2018 3:49 AM Signed Pt requests to be ambulated to bathroom so he can Get freshened up. Hygiene supplies provided along with gowns and towels. Pt steady on feet Rosi Reyes RN, RN 05/02/2018 3:49 AM Signed {am blood work sent to lab Rosi Reyes RN, RN 05/02/2018 4:24 AM Signed Family updated Diony Gaines DO, MBA, DO 05/02/2018 1:14 PM Signed UROLOGY PROGRESS NOTE PATIENT NAME: Attila Del Cid DATE OF : 1970 ADMISSION DATE: 05/01/2018 10:22 AM Subjective No acute events overnight. No fevers/chills overnight Urine has had some blood but is clearing up Pt has rt. Flank pain this AM- has taken multiple doses of narcotics including morphine Denies nausea/vomiting Objective VS: BP 134/85 Pulse 69 Temp 36.3 ?C (97.3 ?F) Resp 16 SpO2 98% I AND O - 24hr: Intake/Output Summary (Last 24 hours) at 05/02/18 0604 Last data filed at 05/02/18 0345 Gross per 24 hour Intake 1550 ml Output 1500 ml Net 50 ml Physical Exam: General: Neck: Resp: Abdomen: No acute distress Supple Normal effort Soft, non-tender, nondistended : Right CVA tenderness Labs and Imaging Studies LABS: BMP: Glucose (mg/dL) Date Value 05/02/2018 88 Potassium (mEq/L) Date Value 05/02/2018 3.7 Sodium (mEq/L) Date Value 05/02/2018 145 Chloride (mEq/L) Date Value 05/02/2018 115 CO2 (mEq/L) Date Value 05/02/2018 23 Creatinine (mg/dL) Date Value 05/02/2018 0.65 BUN (mg/dL) Date Value 05/02/2018 10 Anion Gap (no units) Date Value 05/02/2018 11 Calcium (mg/dL) Date Value 05/02/2018 7.2 CBC: Hemoglobin (g/dL) Date Value 12/19/2016 14.7 HGB (g/dL) Date Value 05/02/2018 12.9 Hematocrit (%) Date Value 05/02/2018 40.5 WBC (thou/cmm) Date Value 05/02/2018 7.60 Platelet Count (thou/cmm) Date Value 05/02/2018 236 Urinalysis: Specific [place], Ur Date Value Ref Range Status 03/25/2018 1.018 1.005 - 1.030 Final Glucose, Urine Date Value Ref Range Status 03/25/2018 NEGATIVE Negative mg/dL Final Bilirubin, Urine Date Value Ref Range Status 03/25/2018 NEGATIVE Negative Final Ketones, Urine Date Value Ref Range Status 03/25/2018 NEGATIVE Negative mg/dL Final Hemoglobin/Blood,Ur Date Value Ref Range Status 03/25/2018 small Neg Final Protein, Urine Date Value Ref Range Status 03/25/2018 NEGATIVE Negative mg/dL Final Urobilinogen, Urine Date Value Ref Range Status 03/25/2018 0.2 0.0 - 1.0 EU/dL Final Nitrites Date Value Ref Range Status 03/25/2018 neg Neg Final Nitrites Urine Date Value Ref Range Status 03/25/2018 NEGATIVE Negative Final Leukocytes Date Value Ref Range Status 03/25/2018 neg Neg Final WBC, Urine Date Value Ref Range Status 03/25/2018 0.3 0.0 - 5.0 /hpf Final Urine Culture: Urine Culture (no units) Date Value 03/25/2018 No growth RADIOLOGY: retrograde urogram: A couple of tiny calculi project over right kidney. The left ureter and collecting system are opacifiedl no hydronephrosis, convincing filling defect or stricture. The right renal calculi are not convincingly seen on the final image. Assessment and Plan ASSESSMENT: 48 year old male w/ history of A fib, calculi of the right kidney s/p right laser lithotripsy 05/01 without stent placement. PLAN: NPO last had food at 4am Pt still insignificant pain 810 requiring IV narcotics to control Discussed with the patient that he would need ureteral stent placement due to continued pain. Pt agrees. For surgery Cont. Current pain meds Strain all urine. Will add on for OR. Cuco Werner, MS IV I agree with above assessment and plan. Will need OR intervention. Shama Rajan MD Attending Note I evaluated the patient and personally participated in the gauthier components. I agree with the resident's findings and plan as documented and have discussed the case and management of the patient's care with the resident. Signature: Diony Gaines DO, MBA Date: 05/02/2018 Time: 1:14 PM Previous Version Rosi Reyes RN, RN 05/02/2018 7:[address] Rajan to bs. Has been decided that pt will go back to OR for stent placement r/t pain throughout night. Pt aware to remain NPO, able to take meds with sips Previous Version Rosi Reyes RN, RN 05/02/2018 7:[address] Rajan paged for npo/med orders clarification. Trixie Lewis RN, RN 05/02/2018 8:[address] Chin at bedside 0745 Talked with pt concerning OR for stent today OR permit signed Trixie Lewis RN, RN 05/02/2018 11:31 AM Signed 1030 Pt notified of OR time 1345 for stint placement Bradly Cuevas MD 05/02/2018 1:20 PM Signed ANESTHESIOLOGY DAY OF SURGERY NOTE SERVICE DATE: 05/02/2018 SERVICE TIME: 1:18 PM : 1970 Procedure(s) (LRB): cystoscopy, right INSERTION STENT URETERAL (Right) Surgeon(s): René Russell (Res) Arias Estimated body mass index is 33.47 kg/m? as calculated from the following: Height as of this encounter: 180.3 cm (5' 11). Weight as of this encounter: 108.9 kg (240 lb). 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 Kidney Stones Acute Right Flank Pain Ectatic Thoracic Aorta (Hcc) Renal Calculus, Right PAST MEDICAL HISTORY Diagnosis Date - Acute right flank pain 03/25/2018 - Aneurysm of ascending aorta (HCC) - Aortic aneurysm (HCC) - Arthritis - Atrial fibrillation (HCC) - Calculi, ureter - Calculus of kidney - Hematuria - Hypertension - Kidney stones 03/25/2018 - Pneumonia - Psychiatric disorder anxiety PAST SURGICAL HISTORY Procedure Laterality Date - BACK SURGERY HX 2015 FUSION, L4-L5 - COLONOSCOP W/ OR W/O BRSH SPEC 05/14/2014 Colonoscopy - EGD W/O OR W/BRUSH/WASH 05/14/2014 EGD - FRAGMENTING/KIDNEY STONE Right 2017 Lithotripsy - KNEE SURGERY HX Right 03/2017 patella replacement - [place] ANESTH,KNEE JOINT; NOS 12/2017 Left FAMILY HISTORY Problem Relation Age of Onset - Diabetes Mother - Colon Cancer Mother - Heart disease Mother - Hypertension Mother - Diabetes Sister - Skin Cancer Father Social History: Social History Substance Use Topics - Smoking status: Never Smoker - Smokeless tobacco: Never Used - Alcohol use No No current facility-administered medications on file prior to encounter. Current Outpatient Prescriptions on File Prior to Encounter: tamsulosin ER (FLOMAX) 0.4 mg cp24 every day acetaminophen 325 mg-caffeine 40 mg-butalbital 50 mg (FIORICET) per tablet gabapentin (NEURONTIN) 300 mg capsule apixaban (ELIQUIS) 5 mg tab tab(s) Take by mouth twice daily. carvedilol (COREG) 25 mg tablet Take 1 tablet by mouth twice daily with meals. meclizine (ANTIVERT) 12.5 mg tab Take 2 tablets by mouth twice daily as needed. lisinopril (ZESTRIL, PRINIVIL) 20 mg tablet Take 1 tablet by mouth once daily. pantoprazole DR (PROTONIX) 40 mg tablet Take 1 tablet by mouth once daily. albuterol HFA (PROVENTIL HFA, VENTOLIN HFA) 90 mcg/actuation inhaler Inhale 2 Puffs as instructed every 4 hours as needed. ibuprofen (MOTRIN) 600 mg tablet Take 1 tablet by mouth every 6 hours as needed for Pain or Fever. promethazine (PHENERGAN) 25 mg tablet Take 25 mg by mouth every 6 hours as needed. sertraline (ZOLOFT) 100 mg tablet 200 mg. busPIRone HCl 7.5 mg tablet Take 7.5 mg by mouth twice daily. (RX given Sept and has 2 more refills) rOPINIRole (REQUIP) 1 mg tablet Take 1 tablet by mouth daily at bedtime. For restless legs (Patient not taking: Reported on 04/16/2018 ) Current Facility-Administered Medications: lactated ringers infusion 50 mL/hr INTRAVENOUS CONTINUOUS Camron Perez Last Rate: 50 mL/hr at 05/02/18 1200 50 mL/hr at 05/02/181199 lidocaine 10 mg/mL (1 %) 1-2 mg injection (XYLOCAINE) 0.1- 0.2 mL INTRADERMAL PRN Camron Perez carvedilol 25 mg tab(s) (COREG) 25 mg ORAL BID w MEALS Byron (Dillan) Yunker 25 mg at 05/01/182029 busPIRone 7.5 mg tab(s) (BUSPAR) 7.5 mg ORAL BID Byron (Francisco Saldañanker 7.5 mg at 05/01/182099 flecainide 100 mg tab(s) (TAMBOCOR) 100 mg ORAL BID Byron (Dillan) Pipernker 100 mg at 05/01/182099 gabapentin 300 mg cap(s) (NEURONTIN) 300 mg ORAL DAILY Byron (Francisco Saldañanker 300 mg at 05/01/182029 lisinopril 20 mg tab(s) (ZESTRIL, PRINIVIL) 20 mg ORAL DAILY Byron (Francisco Sarmientoker 20 mg at 05/01/182029 albuterol HFA 90 mcg/actuation 2 Puff (PROVENTIL HFA, VENTOLIN HFA) 2 Puff INHALATION q 4 H PRN Byron Chin amLODIPine 5 mg tab(s) (NORVASC) 5 mg ORAL DAILY Byron (Francisco Saldañanker 5 mg at 05/01/182029 apixaban 5 mg tab(s) (ELIQUIS) 5 mg ORAL BID Byron (Francisco Saldañanker 5 mg at 05/02/18 0835 sertraline 200 mg tab(s) (ZOLOFT) 200 mg ORAL DAILY Byron (Francisco Chin pantoprazole DR 40 mg tab(s) (PROTONIX) 40 mg ORAL DAILY Byron (Res) Pipernker 40 mg at 05/02/18 0837 NaCl 0.9% iv infusion 100 mL/hr INTRAVENOUS CONTINUOUS Byron (Res) Giuseppe Last Rate: 100 mL/hr at 05/01/18 1800 100 mL/hr at 05/01/18 1800 oxyCODONE-acetaminophen 5-325 mg 1-2 tablet (PERCOCET) 1-2 tablet ORAL q 4 H PRN Byron (Res) Pipernryan 2 tablet at 05/01/18 2107 morphine 1-2 mg injection 1-2 mg INTRAVENOUS q 2 H PRN Byron (Res) Pipernker 2 mg at 05/02/18 0836 ondansetron (PF) 4 mg injection (ZOFRAN) 4 mg INTRAVENOUS q 6 H PRN Byron (Res) Giuseppe tamsulosin ER 0.4 mg cap(s) (FLOMAX) 0.4 mg ORAL DAILY Byron (Res) Pipernryan 0.4 mg at 05/02/18 0600 prochlorperazine 5 mg injection (COMPAZINE) 5 mg INTRAVENOUS q 6 H PRN Byron (Res) Giuseppe ketorolac 30 mg injection (TORADOL) 30 mg INTRAVENOUS q 6 H Byron (Res) Pipernker 30 mg at 05/02/18 0835 Followed by ibuprofen 600 mg tab(s) (MOTRIN) 600 mg ORAL q 6 H Byron (Res) Giuseppe docusate sodium 100 mg cap(s) (COLACE) 100 mg ORAL BID Byron (Res) Pipernker 100 mg at 05/01/18 2100 Allergies: ALLERGIES Allergen Reactions - Celebrex [Celecoxib] Vomiting Nausea - Clonidine Rash - Fentanyl GI Upset - Levofloxacin Rash pt reports to [facility] PT 04-13-2017 - Penicillin G Rash - Relpax [Eletriptan * Vomiting Nausea - Topamax [Topiramate] Vomiting - Vicodin [Hydrocodon* Vomiting - Wellbutrin [Bupropi* Vomiting Nausea DOS EXAM: Adequate NPO status: Yes Anesthetic risks, benefits, alternatives, personnel and consent discussed: Yes Patient agrees to proceed: Yes Previous Anesthesia: No history of adverse event. Airway Assessment: MP 3; Neck ROM: Full ROM without neurologic symptoms; Airway Evaluation: No significant abnormalities Symptoms of Sleep Apnea: None Dentition: Poor dentition Additional Physical Exam: Lungs: Patient health status unchanged since recent history and physical. See history and physical for exam findings. Cardiac: Patient health status unchanged since recent history and physical. See history and physical for exam findings. Additional Pertinent Findings: N/A Blood Products: Not anticipated for this procedure. Anesthetic Plan: General, Standard ASA Monitors Pain Management Plan: Parenteral or Oral ASA Class: 3 Other Medical Problems: None Chronic Beta Carolee medication administered within 24 hours: Yes I have interviewed and examined the patient. I have reviewed the medical record and/or the pre-anesthesia evaluation, pertinent labs, and test results. Significant changes in the patient's condition since the History and Physical, not otherwise documented in primary service progress notes: No This contains updated information obtained within 48 hours of Surgery/Procedure. SIGNATURE: Bradly Cuevas MD PATIENT NAME: Attila Del Cid DATE: May 02, 2018 TIME: 1:18 PM CSN: [id number] INTERNAL MEDICINE Observed: 04/22/2018 Status: F Source: [facility] OFFICE VISIT 12:31 PM [facility] Internal Medicine [address] [place] [address] [place] [address] OFFICE VISIT Date of Service: 04/22/18 MR#: [id number] Acct: [id number] Name: ATTILA DEL CID Rep #: [id number] : 1970 Provider: Tawanda Colon NP Age/Sex: 48/M Location: [facility] [place] Status: Signed Intake Vital Signs04/22/18 Blood Pressure 128/92 04/22/18 Height 5 ft 11 in 04/22/18 Weight: 236 lb 04/22/18 Body Mass Index (BMI) 32.9 04/22/18 Blood Pressure 137/98 Intake Visit Reasons: s/p hosp Chief Complaint: F/U HOSP - Chest pain Is patient in pain?: No Allergies clonidine Allergy (Intermediate, Verified 04/22/18 09:37) rash levofloxacin [From Levaquin] Allergy (Verified 04/22/18 09:37) Rash Penicillins Allergy (Verified 04/22/18 09:37) Hives bupropion Adverse Reaction (Intermediate, Verified 04/22/18 09:37) vomiting celecoxib [From Celebrex] Adverse Reaction (Intermediate, Verified 04/22/18 09:37) vomiting eletriptan Adverse Reaction (Intermediate, Verified 04/22/18 09:37) Vomiting topiramate [From Topamax] Adverse Reaction (Intermediate, Verified 04/22/18 09:37) vomiting hydrocodone bitartrate [From Vicodin] Adverse Reaction (Verified 04/22/18 09:37) Nausea Medications Pantoprazole Sodium [Protonix] 40 mg PO DAILY 04/22/16 [History Confirmed 04/22/18] Carvedilol [Coreg] 25 mg PO BID 01/31/17 [History Confirmed 04/22/18] Albuterol Inhaler [Ventolin Hfa] 1 - 2 puff INHALATION Q4H PRN PRN #1 inhaler 07/15/17 [Rx Confirmed 04/22/18] Apixaban [Eliquis] 5 mg PO BID 09/21/17 [History Confirmed 04/22/18] meclizine 12.5 mg tablet 12.5 mg PO QODAY PRN #30 tab 01/14/18 [Rx Confirmed 04/22/18] amlodipine 5 mg tablet 5 mg PO DAILY #90 tab 02/26/18 [Rx Confirmed 04/22/18] Furosemide 40 mg PO QDAY 03/20/18 [History Confirmed 04/22/18] Aspirin [Aspir-Low] 81 mg PO QDAY 04/09/18 [History Confirmed 04/22/18] Atorvastatin Calcium [Lipitor] 20 mg PO QDAY 04/09/18 [History Confirmed 04/22/18] Tamsulosin HCl [Flomax] 0.4 mg PO QDAY 04/09/18 [History Confirmed 04/22/18] lisinopril 20 mg tablet 20 mg PO BID #60 tab 04/18/18 [Rx Confirmed 04/22/18] escitalopram 10 mg tablet 10 mg PO QDAY 04/22/18 [History Confirmed 04/22/18] [facility] Medical History Ascending aorta dilatation (Chronic) SVT (supraventricular tachycardia) (Chronic) LORETTA (obstructive sleep apnea) (Chronic) Atherosclerotic heart disease of [place] coronary artery without angina pectoris (Chronic) Nephrolithiasis (Chronic) HTN (hypertension) (Chronic) Anxiety (Chronic) PAF (paroxysmal atrial fibrillation) (Chronic) GERD (gastroesophageal reflux disease) (Chronic) Obesity (BMI 30-39.9) (Chronic) BPPV (benign paroxysmal positional vertigo) (Chronic) HLD (hyperlipidemia) (Chronic) Thoracic aortic aneurysm without rupture (Chronic) Surgical History History of left heart catheterization (Chronic) History of cardiac radiofrequency ablation (Resolved) H/O arthroscopic knee surgery (Resolved) History of back surgery (Resolved) History of right knee surgery (Resolved) Family History Brother Hypertension Mother Heart disease Colon cancer Sister Diabetes Sister Diabetes Sister Diabetes Social History Smoking Status: Never smoker alcohol intake: never substance use type: does not use caffeine: No what type of physical activity do you participate in: walking frequency: 1-2 times per week duration: 15-30 minutes/day seatbelt use: always do you feel safe at home: Yes HPI HPI Chief Complaint: F/U HOSP - Chest pain Details: ATTILA DEL CID, is a 48 M who presents to the office today for hospital follow-up he has a past medical history as listed above. The patient presented to [facility] emergency department on 04/09/2018 with complaints of chest pain and lightheadedness. A previous cardiac cath was done on 04/07/2018 which demonstrated normal coronaries and ejection fraction of 60%. In the emergency department his heart rate was 214 bpm but spontaneously improved to 82 bpm. There were no significant lab abnormalities. Chest x-ray was done which was within normal limits. He was admitted to the hospital on 04/09/2018 for observation. His isosorbide was discontinued and his lisinopril was decreased due to his blood pressures. He was also resumed on flecainide. The patient was discharged on 04/09/2018 with a 30 day event monitor ordered and his chest pain was thought to be due to anxiety which was worsened from his Effexor therapy and therefore he was discharged home to taper off of the Effexor at 75 mg daily and then follow- up with our office to consider SSRI therapy. He was also referred to behavioral health as well. The patient states that since being discharged from the hospital he did have an ER visit where he had an anxiety attack on 04/16/2018. It was recommended that he follow-up with his PCP regarding anxiety treatment. This past Saturday, he was started on Lexapro 10 mg daily. He states that almost immediately after starting the Lexapro, his anxiety has improved drastically and he no longer has fast heart rates or chest pain. He also states that his occasional abdominal pain has improved as well. He is currently off of the Effexor entirely and is on Lexapro 10 mg daily. He does also note that his lisinopril was increased to 20 mg twice daily due to his blood pressure readings. He notes that he is unable to tolerate a Holter monitor due to the localized skin reaction that he gets from the leads. A CT of the chest was reviewed with the patient which was performed on 04/01/2018 and demonstrated a descending thoracic aorta measuring 4.3 cm and a nonspecific punctate nodule at left upper lobe peripheral. The patient states he is unaware of ever having a nodule before. He denies any significant smoking history and does however note that his father had skin cancer and his mother had colon cancer. He otherwise denies any fever, chills, nausea, vomiting, shortness of breath, chest pain or pressure, syncope or presyncopal episodes. ROS Const Constitutional: No chills, fatigue, fever(s), frequent falls, malaise, weakness, sleep problems or change in appetite Eyes Eyes: No blurry vision, change in vision, double vision, discharge or visual disturbances ENT ENT: No abnormal hearing, ear pain, ear pressure, tinnitus or dizziness/vertigo Resp Respiratory: No cough, shortness of breath or wheezing Cardio Cardiology: No chest pain at rest, chest pain with exertion, shortness of breath, dyspnea on exertion, generalized swelling, irregular heart rhythm, lightheadedness, orthopnea, fast heart rate or palpitations Gastro GI: No abdominal pain, change in bowel habits, constipation, diarrhea, nausea/dyspepsia or vomiting Genitourinary Male: No difficulty urinating, burning urination, painful urination, urinary incontinence, urinary frequency, urinary urgency, urinary hesitancy, urinary retention, blood in urine, Frequent nighttime urination/ nocturia, sexual problems, testicle lump or testicle pain Musc Musculoskeletal: No joint pain, back pain, joint swelling, limited range of motion, muscle weakness, numbness or tingling Skin Skin: No change in skin color, itching, rash or wounds Breast Breast: No breast lump or breast pain Neuro Neurology: No frequent falls, weakness, abnormal hearing, numbness, tingling, unsteady gait/balance, dizziness, loss of vision, memory loss or visual disturbances Psych Psychiatric: No memory loss, Positive for anxiety (improving), No change in appetite, No depression, No Thoughts of harming yourself/Others Endo Endocrine: No fatigue, heat intolerance, increased thirst/drinking, increased hunger or increased urination Aller/Imm Allergy/Immunologic: No wheezing, itchy eyes or seasonal allergy symptoms Matias/Lymp Hematologic/Lymphatic: No easy bleeding, easy bruising or enlarged lymph nodes Exam Const General: cooperative, comfortable, no acute distress Nutritional Appearance: average body habitus, well nourished Orientation: alert, oriented x3 Limitations: mental status not altered Resp Effort AND Inspection: normal respiratory effort, able to speak in complete sentences, normal respiratory pattern, symmetric chest movement, no audible wheezes, no cough Auscultation: Bilateral: Clear to Auscultation Cardio Palpation: normal PMI Rate: regular rate Heart Sounds: S1 normal, S2 normal, normal S1 and S2, no click, no gallops, no murmurs, no rubs Musc Musculoskeletal: No muscle weakness Skin General: no rashes or lesions noted, elasticity normal, turgor normal Lesions: no lesions Rashes: no rashes Neuro General: alert, awake, oriented x3, CN's II-XI intact bilaterally Speech: speech normal Gait: normal gait Motor: muscle tone normal throughout Extrem General: normal to inspection, normal gait, no edema, no pedal edema Psych Appearance: grossly normal Mental Status: mental status grossly normal Mood: anxious mood Affect: anxious affect Speech and Movement: speech and movement normal Attitude: cooperative Thought Process: normal Thought Content: normal Assessment AND Plan 1. Anxiety F41.9 Plan Much improved with initiation of Lexapro 10 mg daily. Did instruct patient to notify our office in a week and if his anxiety is not 100% controlled, then will consider increasing to 20 mg daily. He was previously referred to the counseling center. However the patient states that he is seeing a counseling center called [facility] in [facility] and that he is calling them today for an appointment. No thoughts of harming self or others. The patient does note that his chest pain, and fast heart rate has completely resolved since starting the Lexapro as well. 2. Chest pain, unspecified type R07.9 Plan Resolved, he will continue to follow-up with his cardiology specialists. 3. Lung nodule R91.1 Plan He does have a lung nodule as described above on CT. He denies any significant smoking history. Will call radiology department to speak with radiologist to get measurements on his lung nodule. Will follow in the future. May need repeat CT in 3-6 months for comparison. 4. Essential hypertension I10 Plan Hypertension: stable on current medications, will not make any adjustments at this time. Will continue with current medication regimen, risk factor reduction, and lifestyle modifications. Discussed dietary changes that should be considered which include reducing the amount of sodium intake. 5. Nephrolithiasis N20.0 Plan Deferred to urology, he does state that he has an upcoming lithotripsy that urology is considering due to his stones being increased to 5 mm in diameter. Dragon disclaimer Plan Detail Other Medications Discontinued: Follow Up 4 weeks or sooner if needed Coding Level of Care Code Off vis,est,level 4 Diagnoses Anxiety F41.9 Chest pain, unspecified type R07.9 Lung nodule R91.1 Essential hypertension I10 Nephrolithiasis N20.0 04/22/18 1231 <Electronically signed by Tawanda KLEIN> Date Tawanda KLEIN Cosigner Signature: Date (if applicable) CC: XR ABDOMEN 1V SUPINE Observed: 04/18/2018 Status: F Source: [facility] 3:23 PM [facility] REPOSITORY * * *Final Report* * * DATE OF EXAM: Apr 18 2018 3:23PM WRX [id number] - XR ABDOMEN 1V SUPINE / PROCEDURE REASON: Calculus of kidney * * * * Physician Interpretation * * * * ABDOMEN, 1 VIEW. CLINICAL INFORMATION: History of stones TECHNIQUE: Supine abdomen, 2 image(s) COMPARISON: 09/30/2017 RESULT: Several RIGHT lower pole renal calculi are seen, largest 4-5 mm, not definitely seen on the prior exam. No LEFT renal calculi or calculi in the expected location of either ureter or the bladder. Stable pelvic phleboliths. There are no dilated bowel loops. Orthopedic hardware in the spine. IMPRESSION: RIGHT NEPHROLITHIASIS 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: NEAL Transcribe Date/Time: Apr 18 2018 3:37P Dictated by : SHAMA SHIN MD This examination was interpreted and the report reviewed and electronically signed by: SHAMA SHIN MD on Apr 18 2018 3:39PM EST [id number] PROGRESS Observed: 04/18/2018 Status: COMPLETED Source: [facility] 3:17 PM [facility] [place] REPOSITORY O ID: [id number] Author: Corrie Abreu (Rt) Roney Lopez Service: (none) Author Type: Sociology Adjunct Instructor Type: Progress Notes Filed: 04/18/2018 3:24 PM Note Text: Radiology Service Progress Note PATIENT NAME: Attila Del Cid DATE OF SERVICE: April 18, 2018 TIME: 3:17 PM PATIENT IDENTITY VERIFICATION COMPLETED USING TWO (2) METHODS: Patient confirmed name verbally and Date of . PATIENT GENDER DATA: Male PATIENT RELEVANT IMPLANT DATA REVIEWED: Not Applicable RADIOLOGY DEPARTMENT: General X-ray: Exam(s) Completed: Abdomen X-Ray Abdomen PERIPHERAL IV DATA: Not applicable SIGNED BY: RT Camille April 18, 2018 3:17 PM 12 LEAD ELECTROCARDIOGRAM Observed: 04/18/2018 Status: F Source: [facility] 9:19 AM [facility] REPOSITORY [facility] Cardiovascular Services [address] [place] [id number] 12 Lead EKG 04/16/18 1903 MR#: [id number] Acct: [id number] Name: ATTILA DEL CID Rep #: [id number] : 1970 48 From: Jesse Stokes MD Attending Dr: Status: DEP ER Ordering Dr: Irwin Alejo MD Date: 04/16/18 Location: ED Sex: M C Admitted: Test Reason : CP Blood Pressure : / mmHG Vent. Rate : 082 BPM Atrial Rate : 082 BPM P-R Int : 178 ms QRS Dur : 076 ms QT Int : 360 ms P-R-T Axes : 009 -03 002 degrees QTc Int : 420 ms Normal sinus rhythm Normal ECG Confirmed by JESSE STOKES MD ([id number]), dictionary editor CRISTIAN KAUR ([id number]) on 04/18/2018 9:19:17 AM Referred By: ED PHYSICIAN Confirmed By:JESSE STOKES MD 04/18/18 0919 Date Jesse Stokes MD CC: Nyla Bearden MD; Irwin Alejo MD Signed EMERGENCY DEPARTMENT Observed: 04/16/2018 Status: F Source: [facility] SUMMARY 9:09 PM [facility] REPOSITORY [facility] Medical Records Department [address] [place] [address] Emergency Department Summary 04/16/18 1946 MR#: [id number] Acct: [id number] Name: ATTILA DEL CID Rep #: [id number] : 1970 48 From: Iriwn Aeljo MD PCP: Nyla Bearden MD Status: REG ER - ER Visit Summary Date of Service: 04/16/18 Chief Complaint: Left-sided chest pain History of Present Illness: The patient is a 48 M who presents with left-sided chest pain that he localizes lateral the sternum over the fourth fifth intercostal space. He denies any recent URI symptoms. He denies nasal congestion, earache, sore throat or productive cough. He states he has a mild cough. He was driving home from [employer] after seeing a cardiothoracic surgeon who has been following his known thoracic aneurysm that is 4.5 cm in size. He denies history of PE or DVT. Denies leg pain, swelling discoloration. He has no risk factors for VTE Patient states pain is sharp pinching in nature without radiation. He may have slight shortness of breath. He denies radiation to the jaw, neck, shoulders or back. He is concerned this may represent an anxiety attack. He states he has been under significant stress. He denies hematemesis, melena hematochezia. He denies any history of trauma. He does have history of anxiety disorder. He also has history of hypertension. Physical Examination: Vital signs are unremarkable. His respiratory rate on my count was 16. The monitor had his rest rate of 12 and not 23. He is not febrile nor is he hypoxic. He does appear anxious. He has bilateral hearing aids. Nares patent with mild drainage noted. No frontal, ethmoid maxillary sinus tenderness. Posterior pharynx without erythema or exudate. Uvula midline. There is no postnasal drainage. Trach is midline. There is no stridor. There is no reproducible chest pain. Lungs are clear to auscultation. Heart is regular without murmur, gallop or rub. Abdomen soft nontender. There is no asymmetry, swelling, discoloration, leg vein distention, palpable cords or tenderness along the distribution of the deep venous system. Test Results: Two-view chest x-ray reveals a widened mediastinum is unchanged from prior secondary to known thoracic aneurysm. Cardiac silhouette normal. Lung parenchyma normal. EKG sinus rhythm rate of 82 and normal. Troponin is normal. Emergency Department Course and Treatment: Patient is PERC negative based on my respiratory count. Heart score is 2. Will obtain EKG, chest x-ray and troponin. If workup is unremarkable have him follow-up with PCP. Treatment Plan: Patient with atypical left-sided chest pain suspect anxiety. Heart score is 2. He is considered low risk and outpatient follow-up workup is acceptable. Disposition: Discharged to home Impression: 1. Left parasternal chest pain 2. Anxiety This note was generated with [employer] dictation software. It may contain incorrect words, spelling, and punctuation that were not noted in review of the chart prior to signing ED Disposition - Plan for ED Patient: Disposition: Home or Assisted Living Chief Complaint: Chest Pain Instructions: ED Chest Pain Atypical Unkn Cause Referrals: Nyla Bearden MD [Primary Care Provider] - 3-5 Days What to do if you have Problems For any increased pain, shortness of breath, bleeding, nausea or vomiting, chest pain, or any unexpected problems, contact your Primary Care Provider. Call [facility] ([phone]) or report to the closest Emergency Room. Call 911 if necessary. 04/16/18 9653 <Electronically signed by Irwin Alejo MD> Date [facility]win Alejo MD [facility] Signature (If Indicated): Date CC: Nyla Bearden MD TROPONIN-I Collected: 04/16/2018 Status: F Source: [facility] 7:20 PM [facility] REPOSIT[facility] TYPE CODE TESTS RESULT OUT OF RANGE REFERENCE UNITS LAB L501.4010 <0.045 ng/mL Normal < 0.015 TROPONIN-I Result Comment: TROPONIN-I EXPECTED VALUES <0.045 Negative 0.045 - 0.590 Consistent with Cardiac Damage > OR = 0.600 Critical Value Not every elevated troponin is indicative of MA. These values should be used with clinical judgement in examining the patient's clinical picture for diagnosis. To establish a diagnosis of MA versus myocardial injury, there must be a demonstrated rise and/or fall in the troponin values, in addition to ischemic symptoms, EKG changes, new regional wall motion abnormality, and/or angiographical evidence. PLEASE NOTE: REFERENCE RANGES EDITED 18 Performed By: #### L501.4010 #### [facility] [address] [place], [address] CHEST PA AND LATERAL Observed: 04/16/2018 Status: F Source: [facility] 7:11 PM [facility] RE[facility] Imaging Services [address] [place] [address] Chest PA and Lateral MR#: [id number] Acct: [id number] Name: ATTILA DEL CID Rep #: [id number] : 1970 M 48 From: Chavez Gil MD PCP: Nyla Bearden MD Status: REG ER Study: Chest PA and Lateral Date of Exam: 04/16/18 Exam# [id number] Ordering Dr: Irwin Alejo MD STUDY: X-RAY CHEST REASON FOR EXAM: Male, 48 years old. Chest pain and dizziness TECHNIQUE: PA and lateral COMPARISON: April 08, 2018. FINDINGS: The lungs are clear and expanded. There is no demonstrated pleural abnormality. Normal size heart. Mediastinal widening likely due to tortuous aorta or fat deposition.. Normal visualized pulmonary arteries. Normal visualized aortic arch and descending thoracic aorta. Dorsal spine demonstrates mild spondylosis Normal visualized ribs, clavicles, and shoulders. There is no demonstrated abnormality of the visualized soft tissue structures of the upper abdomen. RAD/Chest PA and Lateral IMPRESSION: Nonspecific mediastinal widening CTA would be helpful to exclude aortic pathology if indicated Otherwise no acute cardiopulmonary pathology. Electronically Signed: Chavez Gil MD at 20:10 EDT , Service support , CC: yNla Bearden MD; Irwin Alejo MD 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: Signed PROGRESS Observed: 04/16/2018 Status: COMPLETED Source: [facility] 3:19 PM [facility] REPOSITORY HNO ID: [id number] Author: Phani Ragsdale Service: (none) Author Type: Physician Type: Progress Notes Filed: 04/16/2018 4:17 PM Note Text: Attila Del Cid is a 48 year old male here for a self-referred second opinion regarding a dilated ascending aorta. HPI: This patient is an unhealthy 48-year-old male who has a known dilated ascending aorta for the last couple of years. He additionally has had paroxysmal atrial fibrillation and underwent a cryoablation pulmonary vein isolation back in September. The patient notes that he has had at least 2 cardioversions in the last several weeks. There is some difference of opinion between his local acid condenser in [place] and his acid condenser in [place] regarding next steps and medications. The patient presented here for discussion of his dilated ascending aorta. He does have sharp-type chest pain which varies in intensity on an almost daily basis. He did apparently undergo a cardiac catheterization in the last several weeks in [place] which, according to the patient, showed normal coronary arteries. There is a family history for premature heart disease in male members of the family in their 40s and 50s but no apparent known family history of aneurysms. He is a nonsmoker. MEDICATIONS: Current Outpatient Prescriptions: benzonatate (TESSALON PERLE) 100 mg capsule Take 1 capsule by mouth three times daily as needed for up to 10 days. Disp: 30 capsule Rfl: 0 tamsulosin ER (FLOMAX) 0.4 mg cp24 every day Disp: Rfl: apixaban (ELIQUIS) 5 mg tab tab(s) Take by mouth twice daily. Disp: Rfl: carvedilol (COREG) 25 mg tablet Take 1 tablet by mouth twice daily with meals. Disp: 60 tablet Rfl: 11 meclizine (ANTIVERT) 12.5 mg tab Take 2 tablets by mouth twice daily as needed. Disp: Rfl: lisinopril (ZESTRIL, PRINIVIL) 20 mg tablet Take 1 tablet by mouth once daily. Disp: 30 tablet Rfl: [address] (PROTONIX) 40 mg tablet Take 1 tablet by mouth once daily. Disp: 30 tablet Rfl: 11 albuterol HFA (PROVENTIL HFA, VENTOLIN HFA) 90 mcg/actuation inhaler Inhale 2 Puffs as instructed every 4 hours as needed. Disp: 1 Inhaler Rfl: 0 promethazine (PHENERGAN) 25 mg tablet Take 25 mg by mouth every 6 hours as needed. Disp: Rfl: guaiFENesin (MUCINEX) 600 mg 12 hr tablet Take 2 tablets by mouth twice daily for 10 days. (Patient not taking: Reported on 04/16/2018 ) Disp: 40 tablet Rfl: 0 acetaminophen 325 mg-caffeine 40 mg-butalbital 50 mg (FIORICET) per tablet Disp: Rfl: gabapentin (NEURONTIN) 300 mg capsule Disp: Rfl: oxyCODONE-acetaminophen (PERCOCET) 5-325 mg tablet Disp: Rfl: sertraline (ZOLOFT) 100 mg tablet 200 mg. Disp: Rfl: busPIRone HCl 7.5 mg tablet Take 7.5 mg by mouth twice daily. (RX given Sept and has 2 more refills) Disp: Rfl: rOPINIRole (REQUIP) 1 mg tablet Take 1 tablet by mouth daily at bedtime. For restless legs (Patient not taking: Reported on 04/16/2018 ) Disp: 30 tablet Rfl: 5 ibuprofen (MOTRIN) 600 mg tablet Take 1 tablet by mouth every 6 hours as needed for Pain or Fever. (Patient not taking: Reported on 04/16/2018 ) Disp: 28 tablet Rfl: 0 No current facility-administered medications for this visit. ALLERGIES Allergen Reactions - Celebrex [Celecoxib] Vomiting Nausea - Clonidine Rash - Fentanyl GI Upset - Levofloxacin Rash pt reports to [facility] PT 04-13-2017 - Penicillin G Rash - Relpax [Eletriptan * Vomiting Nausea - Topamax [Topiramate] Vomiting - Vicodin [Hydrocodon* Vomiting - Wellbutrin [Bupropi* Vomiting Nausea Past medical history is notable for hypertension, paroxysmal atrial fibrillation as noted above, dilated ascending aorta, disability for the last couple of years due to cardiac issues and 2 lumbar surgeries including spinal fusion. He believes the ascending aorta was a little over 4 cm in 2017 perhaps 4.2 cm at . Past surgical history is remarkable for the lumbar surgeries, cryo-pulmonary vein isolation, and cardiac catheterizations. Social history the patient's a lifelong nonsmoker with minimal childhood secondhand exposure. Denies alcohol intake. Currently on disability. Review of systems is remarkable for a approximately 15 pound weight loss in the last few months which he relates mostly to stress. Was not intentional. He does admit to shortness of breath with one flight of stairs. As noted above, any chest pain he has almost daily as somewhat stabbing sharp in nature and varies in intensity. This is being evaluate by cardiology and EP according to the patient. BP 122/82 Pulse 95 Resp 16 Ht 5' 11 (1.80m) Wt 240 lb (108.9kg) SpO2 97% BMI 33.49 kg/(m2). PHYSICAL EXAM: Well-developed well-nourished abdominally obese male in no acute distress. He is wearing hearing aids. Cardiac exam is remarkable for regular rhythm without obvious murmur. Lungs clear to auscultation anteriorly and posteriorly. I have reports available from some recent studies. No CDs or films to review. CTA of the chest performed apparently when he was in the emergency room being evaluated again for chest pain from February 17, 2018 shows the ascending aorta to be prominent at 4.4 cm. Slight bronchiectasis was noted in the lower lobes. No other acute findings were noted. He had a CT of the abdomen and pelvis March 212017 which does not make any remarks regarding an enlarged abdominal aorta and only some scattered vascular vascular calcifications and kidney stones were noted. My office trying to track down an echo report I assume he probably has a tricuspid aortic valve. The history, physical examination, and counseling session occupied greater than 20 minutes of [id number]-rj-[id number] time in the exam room. ASSESSMENT: Ectatic ascending aorta. The aortic size index 1.93 and cross-sectional area to height ratio 8.4 place him in the low risk category. PLAN: I explained to the patient that he does not technically have an aneurysm at this point. Given the calculations noted above, surgical resection and replacement of ascending aorta is not indicated at this time. I have again recommended serial surveillance of the aorta with CT scans with the next one to be performed in 12 months which has been done by his [place] acid condenser.. The patient is already on beta carolee therapy. He was advised to avoid strenuous heavy lifting and to seek medical attention for very severe chest or back pain and to advise any caregivers of the presence of a dilated ascending aorta should he be undergoing evaluation for this. FOLLOW UP: Continue follow-up with his acid condenser in [place]. He had no further questions at this point. Phani Ragsdale MD CNOV Observed: 04/16/2018 Status: COMPLETED Source: [place] 2:30 PM [facility] OTHER CAMPUS REPOSITORY Office Visit (AGVASACC) ATTILA DEL CID ([id number]) 1970 M [facility] Date Time Provider Department 04/16/18 2:30 PM PHANI RAGSDALE [facility] During your visit today, we recorded the following information about you: Pulse Respiration Blood pressure Weight 95/minute 16/minute 122/82 108.9 kg Height 1.803 m Phani Ragsdale MD 04/16/2018 4:17 PM Addendum Attila Del Cid is a 48 year old male here for a self-referred second opinion regarding a dilated ascending aorta. HPI: This patient is an unhealthy 48-year-old male who has a known dilated ascending aorta for the last couple of years. He additionally has had paroxysmal atrial fibrillation and underwent a cryoablation pulmonary vein isolation back in September. The patient notes that he has had at least 2 cardioversions in the last several weeks. There is some difference of opinion between his local acid condenser in [place] and his EP acid condenser in [place] regarding next steps and medications. The patient presented here for discussion of his dilated ascending aorta. He does have sharp-type chest pain which varies in intensity on an almost daily basis. He did apparently undergo a cardiac catheterization in the last several weeks in [place] which, according to the patient, showed normal coronary arteries. There is a family history for premature heart disease in male members of the family in their 40s and 50s but no apparent known family history of aneurysms. He is a nonsmoker. MEDICATIONS: Current Outpatient Prescriptions: benzonatate (TESSALON PERLE) 100 mg capsule Take 1 capsule by mouth three times daily as needed for up to 10 days. Disp: 30 capsule Rfl: 0 tamsulosin ER (FLOMAX) 0.4 mg cp24 every day Disp: Rfl: apixaban (ELIQUIS) 5 mg tab tab(s) Take by mouth twice daily. Disp: Rfl: carvedilol (COREG) 25 mg tablet Take 1 tablet by mouth twice daily with meals. Disp: 60 tablet Rfl: 11 meclizine (ANTIVERT) 12.5 mg tab Take 2 tablets by mouth twice daily as needed. Disp: Rfl: lisinopril (ZESTRIL, PRINIVIL) 20 mg tablet Take 1 tablet by mouth once daily. Disp: 30 tablet Rfl: [address] (PROTONIX) 40 mg tablet Take 1 tablet by mouth once daily. Disp: 30 tablet Rfl: 11 albuterol HFA (PROVENTIL HFA, VENTOLIN HFA) 90 mcg/actuation inhaler Inhale 2 Puffs as instructed every 4 hours as needed. Disp: 1 Inhaler Rfl: 0 promethazine (PHENERGAN) 25 mg tablet Take 25 mg by mouth every 6 hours as needed. Disp: Rfl: guaiFENesin (MUCINEX) 600 mg 12 hr tablet Take 2 tablets by mouth twice daily for 10 days. (Patient not taking: Reported on 04/16/2018 ) Disp: 40 tablet Rfl: 0 acetaminophen 325 mg-caffeine 40 mg-butalbital 50 mg (FIORICET) per tablet Disp: Rfl: gabapentin (NEURONTIN) 300 mg capsule Disp: Rfl: oxyCODONE-acetaminophen (PERCOCET) 5-325 mg tablet Disp: Rfl: sertraline (ZOLOFT) 100 mg tablet 200 mg. Disp: Rfl: busPIRone HCl 7.5 mg tablet Take 7.5 mg by mouth twice daily. (RX given Sept and has 2 more refills) Disp: Rfl: rOPINIRole (REQUIP) 1 mg tablet Take 1 tablet by mouth daily at bedtime. For restless legs (Patient not taking: Reported on 04/16/2018 ) Disp: 30 tablet Rfl: 5 ibuprofen (MOTRIN) 600 mg tablet Take 1 tablet by mouth every 6 hours as needed for Pain or Fever. (Patient not taking: Reported on 04/16/2018 ) Disp: 28 tablet Rfl: 0 No current facility-administered medications for this visit. ALLERGIES Allergen Reactions - Celebrex [Celecoxib] Vomiting Nausea - Clonidine Rash - Fentanyl GI Upset - Levofloxacin Rash pt reports to [facility] PT 04-13-2017 - Penicillin G Rash - Relpax [Eletriptan * Vomiting Nausea - Topamax [Topiramate] Vomiting - Vicodin [Hydrocodon* Vomiting - Wellbutrin [Bupropi* Vomiting Nausea Past medical history is notable for hypertension, paroxysmal atrial fibrillation as noted above, dilated ascending aorta, disability for the last couple of years due to cardiac issues and 2 lumbar surgeries including spinal fusion. He believes the ascending aorta was a little over 4 cm in 2017 perhaps 4.2 cm at . Past surgical history is remarkable for the lumbar surgeries, cryo-pulmonary vein isolation, and cardiac catheterizations. Social history the patient's a lifelong nonsmoker with minimal childhood secondhand exposure. Denies alcohol intake. Currently on disability. Review of systems is remarkable for a approximately 15 pound weight loss in the last few months which he relates mostly to stress. Was not intentional. He does admit to shortness of breath with one flight of stairs. As noted above, any chest pain he has almost daily as somewhat stabbing sharp in nature and varies in intensity. This is being evaluate by cardiology and EP according to the patient. BP 122/82 Pulse 95 Resp 16 Ht 5' 11 (1.80m) Wt 240 lb (108.9kg) SpO2 97% BMI 33.49 kg/(m2). PHYSICAL EXAM: Well-developed well-nourished abdominally obese male in no acute distress. He is wearing hearing aids. Cardiac exam is remarkable for regular rhythm without obvious murmur. Lungs clear to auscultation anteriorly and posteriorly. I have reports available from some recent studies. No CDs or films to review. CTA of the chest performed apparently when he was in the emergency room being evaluated again for chest pain from February 17, 2018 shows the ascending aorta to be prominent at 4.4 cm. Slight bronchiectasis was noted in the lower lobes. No other acute findings were noted. He had a CT of the abdomen and pelvis March 212017 which does not make any remarks regarding an enlarged abdominal aorta and only some scattered vascular vascular calcifications and kidney stones were noted. My office trying to track down an echo report I assume he probably has a tricuspid aortic valve. The history, physical examination, and counseling session occupied greater than 20 minutes of [id number] time in the exam room. ASSESSMENT: Ectatic ascending aorta. The aortic size index 1.93 and cross- sectional area to height ratio 8.4 place him in the low risk category. PLAN: I explained to the patient that he does not technically have an aneurysm at this point. Given the calculations noted above, surgical resection and replacement of ascending aorta is not indicated at this time. I have again recommended serial surveillance of the aorta with CT scans with the next one to be performed in 12 months which has been done by his [place] acid condenser.. The patient is already on beta carolee therapy. He was advised to avoid strenuous heavy lifting and to seek medical attention for very severe chest or back pain and to advise any caregivers of the presence of a dilated ascending aorta should he be undergoing evaluation for this. FOLLOW UP: Continue follow-up with his acid condenser in [place]. He had no further questions at this point. Phani Ragsdale MD Referring Provider: NYLA BEARDEN [[id number]] Allergies As of Date: 04/16/2018 Noted Allergy Reaction CELEBREX (CELECOXIB) 07/17/2016 11 - Vomiting Comments: Nausea CLONIDINE 07/17/2016 2 - Rash FENTANYL 07/17/2016 8 - GI Upset LEVOFLOXACIN 04/13/2017 2 - Rash Comments: pt reports to [facility] PT --2017 PENICILLIN G 12/30/2013 2 - Rash RELPAX (ELETRIPTAN HBR) 07/17/2016 11 - Vomiting Comments: Nausea TOPAMAX (TOPIRAMATE) 07/17/2016 11 - Vomiting VICODIN (HYDROCODONE-ACETAMINOPHE*12/30/2013 11 - Vomiting WELLBUTRIN (BUPROPION HCL) 07/17/2016 11 - Vomiting Comments: Nausea Date Reviewed: 04/16/2018 Reviewed by: Phani Ragsdale - Fully Assessed Reason for Visit: Consult [502] Cmt: Ref by Dr. Stokes Ascending Aortic Aneurysm CT A/P 03-21-18 Primary Visit Diagnosis:Ectatic thoracic aorta (HCC) [I77.810] Comment:ascending aorta Prescriptions as of 04/16/2018 Sig: BENZONATATE 100 MG CAPSULE Take 1 capsule by mouth three* TAMSULOSIN 0.4 MG CAPSULE every day APIXABAN 5 MG TABLET Take by mouth twice daily. CARVEDILOL 25 MG TABLET Take 1 tablet by mouth twice * MECLIZINE 12.5 MG TABLET Take 2 tablets by mouth twice* LISINOPRIL 20 MG TABLET Take 1 tablet by mouth once d* PANTOPRAZOLE 40 MG TABLET,DEL* Take 1 tablet by mouth once d* ALBUTEROL SULFATE HFA 90 MCG/* Inhale 2 Puffs as instructed * PROMETHAZINE 25 MG TABLET Take 25 mg by mouth every 6 h* GUAIFENESIN ER 600 MG TABLET,* Take 2 tablets by mouth twice* Patient not taking: Reported on 04/16/2018 [id number]* GABAPENTIN 300 MG CAPSULE OXYCODONE-ACETAMINOPHEN 5 MG-* SERTRALINE 100 MG TABLET 200 mg. BUSPIRONE 7.5 MG TABLET Take 7.5 mg by mouth twice da* ROPINIROLE 1 MG TABLET Take 1 tablet by mouth daily * Patient not taking: Reported on 04/16/2018 IBUPROFEN 600 MG TABLET Take 1 tablet by mouth every * Patient not taking: Reported on 04/16/2018 Problem List As Of Date 04/16/2018 Noted Resolved Primary osteoarthritis of right knee [M17.11] INVALID FOR* Chest pain at rest [R07.9] INVALID FOR* HTN (hypertension) [I10] INVALID FOR* Atrial fibrillation (HCC) [I48.91] INVALID FOR* More... Atypical chest pain [R07.89] INVALID FOR* Patellofemoral instability of right knee with p*INVALID FOR* Kidney stones [N20.0] INVALID FOR* Acute right flank pain [R10.9] INVALID FOR* Ectatic thoracic aorta (HCC) [I77.810] INVALID FOR* More... Disposition: Return as needed. F/U w acid condenser in [place].. Follow-up and Disposition History Recorded Letter Text Encounter Status:Closed by PHANI RAGSDALE MD on 04/16/18 NCS AND/OR EMG Observed: 04/15/2018 Status: F Source: [facility] PATIENT 10:38 AM [facility] REPOSITORY [facility] Pulmonary Services/Neurology [address] [place] [address] MR#: [id number] Acct: [id number] Name: ATTILA DEL CID Rep #: [id number] : 1970 48 From: Rosales Espinal MD Referring Dr: Claribel Batista DO Status: REG CLI Ordering Dr: Date: Location: [facility] Sex: M C NCS and/or EMG Patient Report Ordering Doctor: Claribel Batista DATE OF SERVICE: 04/15/18 This is a right upper extremity EMG and nerve conduction study performed on this 48-year-old male with a history of pain in his right shoulder radiating to his elbow. His symptoms have been present for 6 months and accompanied by numbness and tingling in all of the fingers in his right hand. He is healthy otherwise without a history of diabetes. He denies neck pain, and no radiation of symptoms with changes in his neck or head position. Right upper extremity sensory and motor nerve conduction studies performed. Median motor and sensory distal latencies mildly prolonged with intact amplitudes and conduction velocities. The ulnar motor and sensory and radial sensory response is intact. The median and ulnar F-wave latencies are intact. Right upper extremity needle electromyography is performed. Muscles evaluated included the first dorsal interosseous, abductor pollicis brevis, brachioradialis, biceps, triceps and deltoid muscles. All muscles demonstrated normal insertional activity with absence of pathologic spontaneous activity. Motor unit potential recruitment pattern and amplitude is normal in all muscles tested. Impression: This is an abnormal electrophysiologic study of the right upper extremity consistent with mild carpal tunnel syndrome at the wrist. 04/15/18 1038 <Electronically signed by Rosales Espinal MD> Date Rosales Espinal MD CC: Claribel Batista DO; Nyla Bearden MD; Rosales Espinal MD Date Dictated: 04/15/18 1034 Date Transcribed: 04/15/181033 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: REGINO Signed PROGRESS Observed: 04/13/2018 Status: COMPLETED Source: [place] 1:50 PM [facility] REPOSITORY HNO ID: [id number] Author: Sandra ([facility]) Mirela Service: (none) Author Type: Nurse Practitioner Type: Progress Notes Filed: 04/13/2018 2:31 PM Note Text: Subjective HPI Attila Del Cid is a 48 year old male who presents with cough for the last 2 days. He has a headache and shortness of breath. He feels tightness in his chest when he coughs. He has taken nothing at home for symptom relief. He is currently wearing a Holter monitor for 28 days for monitoring of Afib. Review of Systems Constitutional: Negative. Negative for chills and fever. HENT: Positive for congestion and sore throat. Negative for ear pain. Respiratory: Positive for cough and shortness of breath. Cardiovascular: Negative. Negative for chest pain and leg swelling. Gastrointestinal: Positive for diarrhea and nausea. Negative for abdominal pain and vomiting. Musculoskeletal: Negative. BP 100/80 Pulse 115 Temp 36.5 ?C (97.7 ?F) (Left Tympanic) Resp 16 Wt 109 kg (240 lb 6.4 oz) SpO2 99% BMI 33.53 kg/m? PAST MEDICAL HISTORY Diagnosis Date - Acute right flank pain 03/25/2018 - Aortic aneurysm (HCC) - Arthritis - Atrial fibrillation (HCC) - Calculi, ureter - Calculus of kidney - Hematuria - Hypertension - Kidney stones 03/25/2018 - Pneumonia - Psychiatric disorder anxiety PAST SURGICAL HISTORY Procedure Laterality Date - BACK SURGERY HX 2015 FUSION, L4-L5 - COLONOSCOP W/ OR W/O BRSH SPEC 05/14/2014 Colonoscopy - EGD W/O OR W/BRUSH/WASH 05/14/2014 EGD - KNEE SURGERY HX Right patella replacement - [place] ANESTH,KNEE JOINT; NOS Left ALLERGIES Celebrex [Celecoxib]; Clonidine; Fentanyl; Levofloxacin; Penicillin G; Relpax [Eletriptan Hbr]; Topamax [Topiramate]; Vicodin [Hydrocodone-Acetaminophen]; Wellbutrin [Bupropion Hcl] MEDICATIONS tamsulosin ER (FLOMAX) 0.4 mg cp24 every day acetaminophen 325 mg-caffeine 40 mg-butalbital 50 mg (FIORICET) per tablet gabapentin (NEURONTIN) 300 mg capsule apixaban (ELIQUIS) 5 mg tab tab(s) Take by mouth twice daily. sertraline (ZOLOFT) 100 mg tablet 200 mg. carvedilol (COREG) 25 mg tablet Take 1 tablet by mouth twice daily with meals. busPIRone HCl 7.5 mg tablet Take 7.5 mg by mouth twice daily. (RX given Sept and has 2 more refills) meclizine (ANTIVERT) 12.5 mg tab Take 2 tablets by mouth twice daily as needed. lisinopril (ZESTRIL, PRINIVIL) 20 mg tablet Take 1 tablet by mouth once daily. rOPINIRole (REQUIP) 1 mg tablet Take 1 tablet by mouth daily at bedtime. For restless legs pantoprazole DR (PROTONIX) 40 mg tablet Take 1 tablet by mouth once daily. albuterol HFA (PROVENTIL HFA, VENTOLIN HFA) 90 mcg/actuation inhaler Inhale 2 Puffs as instructed every 4 hours as needed. ibuprofen (MOTRIN) 600 mg tablet Take 1 tablet by mouth every 6 hours as needed for Pain or Fever. promethazine (PHENERGAN) 25 mg tablet Take 25 mg by mouth every 6 hours as needed. oxyCODONE-acetaminophen (PERCOCET) 5-325 mg tablet FAMILY HISTORY Problem Relation Age of Onset - Diabetes Mother - Colon Cancer Mother - Diabetes Sister - Skin Cancer Father Social History Substance Use Topics - Smoking status: Never Smoker - Smokeless tobacco: Never Used - Alcohol use No Objective Physical Exam Constitutional: He is well-developed, well-nourished, and in no distress. HENT: Head: Normocephalic. Right Ear: Tympanic membrane, external ear and ear canal normal. Left Ear: Tympanic membrane, external ear and ear canal normal. Nose: Nose normal. Mouth/Throat: Uvula is midline, oropharynx is clear and moist and mucous membranes are normal. No posterior oropharyngeal edema or posterior oropharyngeal erythema. Eyes: Conjunctivae are normal. Neck: Neck supple. Cardiovascular: Normal rate, regular rhythm and normal heart sounds. Pulmonary/Chest: Effort normal and breath sounds normal. No respiratory distress. He has no wheezes. He has no rales. Lymphadenopathy: He has no cervical adenopathy. Neurological: He is alert. Skin: Skin is warm and dry. No rash noted. Nursing note and vitals reviewed. ASSESSMENT/PLAN: 1. Viral URI with cough - ICD9: 465.9, ICD10: J06.9, B97.89 - Discussed viral etiology and rationale for treatment. - Symptomatic treatment with prn analgesia - Supportive care with fluids and rest - GUAIFENESIN ER 600 MG TABLET, EXTENDED RELEASE 12 HR - BENZONATATE 100 MG CAPSULE - Follow-up with your PCP in 3-5 days if symptoms have not improved or sooner if symptoms worsen - Discussed red flags and need for immediate medical evaluation if any occur. - Discussed supportive care treatment with fluids, rest and analgesia. - Discussed expected course of illness Sandra iDetz APRN.CNP CNOV Observed: 04/13/2018 Status: COMPLETED Source: [place] 1:45 PM [facility] REPOSITORY Office Visit (WSTR) ATTILA DEL CID ([id number]) 1970 M [facility] Date Time Provider Department 04/13/18 1:45 PM SANDRA DIETZ ([facility]) [facility] During your visit today, we recorded the following information about you: Temperature Pulse Respiration Blood pressure 97.7 degrees 115/minute 16/minute 100/80 Weight 109 kg Sandra Dietz APRN.CNP 04/13/2018 2:31 PM Signed Subjective HPI Attilamelchor Del Cid is a 48 year old male who presents with cough for the last 2 days. He has a headache and shortness of breath. He feels tightness in his chest when he coughs. He has taken nothing at home for symptom relief. He is currently wearing a Holter monitor for 28 days for monitoring of Afib. Review of Systems Constitutional: Negative. Negative for chills and fever. HENT: Positive for congestion and sore throat. Negative for ear pain. Respiratory: Positive for cough and shortness of breath. Cardiovascular: Negative. Negative for chest pain and leg swelling. Gastrointestinal: Positive for diarrhea and nausea. Negative for abdominal pain and vomiting. Musculoskeletal: Negative. BP 100/80 Pulse 115 Temp 36.5 ?C (97.7 ?F) (Left Tympanic) Resp 16 Wt 109 kg (240 lb 6.4 oz) SpO2 99% BMI 33.53 kg/m? PAST MEDICAL HISTORY Diagnosis Date - Acute right flank pain 03/25/2018 - Aortic aneurysm (HCC) - Arthritis - Atrial fibrillation (HCC) - Calculi, ureter - Calculus of kidney - Hematuria - Hypertension - Kidney stones 03/25/2018 - Pneumonia - Psychiatric disorder anxiety PAST SURGICAL HISTORY Procedure Laterality Date - BACK SURGERY HX 2015 FUSION, L4-L5 - COLONOSCOP W/ OR W/O BRSH SPEC 05/14/2014 Colonoscopy - EGD W/O OR W/BRUSH/WASH 05/14/2014 EGD - KNEE SURGERY HX Right patella replacement - [place] ANESTH,KNEE JOINT; NOS Left ALLERGIES Celebrex [Celecoxib]; Clonidine; Fentanyl; Levofloxacin; Penicillin G; Relpax [Eletriptan Hbr]; Topamax [Topiramate]; Vicodin [Hydrocodone-Acetaminophen]; Wellbutrin [Bupropion Hcl] MEDICATIONS tamsulosin ER (FLOMAX) 0.4 mg cp24 every day acetaminophen 325 mg-caffeine 40 mg-butalbital 50 mg (FIORICET) per tablet gabapentin (NEURONTIN) 300 mg capsule apixaban (ELIQUIS) 5 mg tab tab(s) Take by mouth twice daily. sertraline (ZOLOFT) 100 mg tablet 200 mg. carvedilol (COREG) 25 mg tablet Take 1 tablet by mouth twice daily with meals. busPIRone HCl 7.5 mg tablet Take 7.5 mg by mouth twice daily. (RX given Sept and has 2 more refills) meclizine (ANTIVERT) 12.5 mg tab Take 2 tablets by mouth twice daily as needed. lisinopril (ZESTRIL, PRINIVIL) 20 mg tablet Take 1 tablet by mouth once daily. rOPINIRole (REQUIP) 1 mg tablet Take 1 tablet by mouth daily at bedtime. For restless legs pantoprazole DR (PROTONIX) 40 mg tablet Take 1 tablet by mouth once daily. albuterol HFA (PROVENTIL HFA, VENTOLIN HFA) 90 mcg/actuation inhaler Inhale 2 Puffs as instructed every 4 hours as needed. ibuprofen (MOTRIN) 600 mg tablet Take 1 tablet by mouth every 6 hours as needed for Pain or Fever. promethazine (PHENERGAN) 25 mg tablet Take 25 mg by mouth every 6 hours as needed. oxyCODONE-acetaminophen (PERCOCET) 5-325 mg tablet FAMILY HISTORY Problem Relation Age of Onset - Diabetes Mother - Colon Cancer Mother - Diabetes Sister - Skin Cancer Father Social History Substance Use Topics - Smoking status: Never Smoker - Smokeless tobacco: Never Used - Alcohol use No Objective Physical Exam Constitutional: He is well-developed, well-nourished, and in no distress. HENT: Head: Normocephalic. Right Ear: Tympanic membrane, external ear and ear canal normal. Left Ear: Tympanic membrane, external ear and ear canal normal. Nose: Nose normal. Mouth/Throat: Uvula is midline, oropharynx is clear and moist and mucous membranes are normal. No posterior oropharyngeal edema or posterior oropharyngeal erythema. Eyes: Conjunctivae are normal. Neck: Neck supple. Cardiovascular: Normal rate, regular rhythm and normal heart sounds. Pulmonary/Chest: Effort normal and breath sounds normal. No respiratory distress. He has no wheezes. He has no rales. Lymphadenopathy: He has no cervical adenopathy. Neurological: He is alert. Skin: Skin is warm and dry. No rash noted. Nursing note and vitals reviewed. ASSESSMENT/PLAN: 1. Viral URI with cough - ICD9: 465.9, ICD10: J06.9, B97.89 - Discussed viral etiology and rationale for treatment. - Symptomatic treatment with prn analgesia - Supportive care with fluids and rest - GUAIFENESIN ER 600 MG TABLET, EXTENDED RELEASE 12 HR - BENZONATATE 100 MG CAPSULE - Follow-up with your PCP in 3-5 days if symptoms have not improved or sooner if symptoms worsen - Discussed red flags and need for immediate medical evaluation if any occur. - Discussed supportive care treatment with fluids, rest and analgesia. - Discussed expected course of illness GRISEL Falcon APRN.CNP 04/13/2018 1:58 PM Signed Treatment for Viral Upper Respiratory Tract Infections Your body will kill off the virus by itself. Additionally, you can prime your body's immune system. This may help you get better more quickly. 1. Drink lots of fluids - at least one gallon of non-caffeinated liquids per day 2. Make sure you are eating well 3. Get plenty of rest - at least 8 hours of sleep per night for adults and more for children We do not have any medications that kill off these viruses. Antibiotics are used to treat bacterial infections; however, they are not active against viral infections. There are some things that might help you feel better, though. 1. Vaporizers, humidifiers, hot showers, and hot fluids help open respiratory and sinus passages 2. [place] Nasal [place] may offer relief of nasal and head congestion 3. Nawaf's Vapor Rub placed on a hot towel and draped over the head may relieve congestion 4. Tylenol and Advil help control fevers and headaches 5. Salt water gargles help relieve sore throats 6. Chloraceptic spray or throat lozenges may also help relieve sore throat symptoms Occasionally, viral infections turn into something more serious. You should see your doctor or return to the Urgent Care if: 1. You have fevers for longer than five days 2. You have fevers above 102 degrees 3. You are still sick after 10 days 4. You have shortness of breath or wheezing 5. After several days you are getting worse rather than better Referring Provider: SELF [200] Allergies As of Date: 04/13/2018 Noted Allergy Reaction CELEBREX (CELECOXIB) 07/17/2016 11 - Vomiting Comments: Nausea CLONIDINE 07/17/2016 2 - Rash FENTANYL 07/17/2016 8 - GI Upset LEVOFLOXACIN 04/13/2017 2 - Rash Comments: pt reports to [facility] PT - PENICILLIN G 12/30/2013 2 - Rash RELPAX (ELETRIPTAN HBR) 07/17/2016 11 - Vomiting Comments: Nausea TOPAMAX (TOPIRAMATE) 07/17/2016 11 - Vomiting VICODIN (HYDROCODONE-ACETAMINOPHE*12/30/2013 11 - Vomiting WELLBUTRIN (BUPROPION HCL) 07/17/2016 11 - Vomiting Comments: Nausea Date Reviewed: 04/13/2018 Reviewed by: Sandra ([facility]) Mirela - Fully Assessed Reason for Visit: Cough [28] Chest Congestion [236] Primary Visit Diagnosis:Viral URI with cough [J06.9, B97.89] Order(s):guaiFENesin (MUCINEX) 600 mg 12 hr tabletTake 2 tablets by mouth twice daily for 10 days.Disp: 40 tabletRfl: 0 benzonatate (TESSALON PERLE) 100 mg capsuleTake 1 capsule by mouth three times daily as needed for up to 10 days.Disp: 30 capsuleRfl: 0 Prescriptions as of 04/13/2018 Sig: TAMSULOSIN 0.4 MG CAPSULE every day [id number]* GABAPENTIN 300 MG CAPSULE APIXABAN 5 MG TABLET Take by mouth twice daily. SERTRALINE 100 MG TABLET 200 mg. CARVEDILOL 25 MG TABLET Take 1 tablet by mouth twice * BUSPIRONE 7.5 MG TABLET Take 7.5 mg by mouth twice da* MECLIZINE 12.5 MG TABLET Take 2 tablets by mouth twice* LISINOPRIL 20 MG TABLET Take 1 tablet by mouth once d* ROPINIROLE 1 MG TABLET Take 1 tablet by mouth daily * PANTOPRAZOLE 40 MG TABLET,DEL* Take 1 tablet by mouth once d* ALBUTEROL SULFATE HFA 90 MCG/* Inhale 2 Puffs as instructed * IBUPROFEN 600 MG TABLET Take 1 tablet by mouth every * PROMETHAZINE 25 MG TABLET Take 25 mg by mouth every 6 h* GUAIFENESIN ER 600 MG TABLET,* Take 2 tablets by mouth twice* BENZONATATE 100 MG CAPSULE Take 1 capsule by mouth three* OXYCODONE-ACETAMINOPHEN 5 MG-* Problem List As Of Date 04/13/2018 Noted Resolved Primary osteoarthritis of right knee [M17.11] INVALID FOR* Chest pain at rest [R07.9] INVALID FOR* HTN (hypertension) [I10] INVALID FOR* Atrial fibrillation (HCC) [I48.91] INVALID FOR* More... Atypical chest pain [R07.89] INVALID FOR* Patellofemoral instability of right knee with p*INVALID FOR* Kidney stones [N20.0] INVALID FOR* Acute right flank pain [R10.9] INVALID FOR* Other instructions from your clinician: Treatment for Viral Upper Respiratory Tract Infections Your body will kill off the virus by itself. Additionally, you can prime your body's immune system. This may help you get better more quickly. 1. Drink lots of fluids - at least one gallon of non-caffeinated liquids per day 2. Make sure you are eating well 3. Get plenty of rest - at least 8 hours of sleep per night for adults and more for children We do not have any medications that kill off these viruses. Antibiotics are used to treat bacterial infections; however, they are not active against viral infections. There are some things that might help you feel better, though. 1. Vaporizers, humidifiers, hot showers, and hot fluids help open respiratory and sinus passages 2. [place] Nasal [place] may offer relief of nasal and head congestion 3. Nawaf's Vapor Rub placed on a hot towel and draped over the head may relieve congestion 4. Tylenol and Advil help control fevers and headaches 5. Salt water gargles help relieve sore throats 6. Chloraceptic spray or throat lozenges may also help relieve sore throat symptoms Occasionally, viral infections turn into something more serious. You should see your doctor or return to the Urgent Care if: 1. You have fevers for longer than five days 2. You have fevers above 102 degrees 3. You are still sick after 10 days 4. You have shortness of breath or wheezing 5. After several days you are getting worse rather than better Prescriptions ordered this encounter Disp Refills Start End GUAIFENESIN ER 600 MG TABLET, EXTEND* 40 t* 0 04/13/2018 04/23/2018 Route: ORAL Sig: Take 2 tablets by mouth twice daily for 10 days. BENZONATATE 100 MG CAPSULE 30 c* 0 04/13/2018 04/23/2018 Route: ORAL Sig: Take 1 capsule by mouth three times daily as needed for up to 10 days. Encounter Status:Closed by SANDRA DIETZ on 04/13/18 12 LEAD ELECTROCARDIOGRAM Observed: 04/10/2018 Status: F Source: [place] 9:50 AM [facility] Cardiovascular Services [facility] [place] [address] [place] [address] 12 Lead EKG 04/09/18 0229 MR#: [id number] Acct: [id number] Name: ATTILA DEL CID Rep #: [id number] : 1970 48 From: Jesse Stokes MD Attending Dr: hSelbie Knox Status: DIS FERCHO Ordering Dr: Edgar Sinclair MD Date: 04/09/18 Location: [facility] Sex: M C Admitted: 04/08/18 Test Reason : ADMIT Blood Pressure : / mmHG Vent. Rate : 081 BPM Atrial Rate : 081 BPM P-R Int : 174 ms QRS Dur : 086 ms QT Int : 390 ms P-R-T Axes : 008 018 025 degrees QTc Int : 453 ms Normal sinus rhythm Normal ECG When compared with ECG of 02-APR-2018 12:31, ST no longer depressed in Lateral leads Confirmed by JESSE STOKES MD ([id number]), dictionary editor RICCO LEWIS ([id number]) on 04/10/2018 9:50:28 AM Referred By: Jesse Stokes Confirmed By:JESSE STOKES MD 04/10/18 0950 Date Jesse Stokes MD CC: Shelbie Knox; Nyla Bearden MD; Edgar Sinclair MD Signed 12 LEAD ELECTROCARDIOGRAM Observed: 04/10/2018 Status: F Source: [place] 9:07 AM [facility] Cardiovascular Services [address] [place] [id number] 12 Lead EKG 04/08/181953 MR#: [id number] Acct: [id number] Name: ATTILA DEL CID Rep #: [id number] : 1970 48 From: Jesse Stokes MD Attending Dr: Shelbie Knox Status: DIS FERCHO Ordering Dr: Rosalba Stein MD Date: 04/08/18 Location: [facility] Sex: M C Admitted: 04/08/18 Test Reason : CP Blood Pressure : / mmHG Vent. Rate : 098 BPM Atrial Rate : 098 BPM P-R Int : 170 ms QRS Dur : 076 ms QT Int : 336 ms P-R-T Axes : 016 012 014 degrees QTc Int : 428 ms Normal sinus rhythm Normal ECG Confirmed by JESSE STOKES MD ([id number]), dictionary editor RICCO LEWIS ([id number]) on 04/10/2018 9:06:39 AM Referred By: Jesse Stokes Confirmed By:JESSE STOKES MD 04/10/18 0906 Date Jesse Stokes MD CC: Rosalba Stein MD; Shelbie Knox; Nyla Bearden MD Signed DISCHARGE SUMMARY Observed: 04/09/2018 Status: F Source: [place] 4:04 PM [facility] Medical Records Department [address] [place] [address] [place] [address] Discharge Summary 04/09/18 1543 MR#: [id number] Acct: [id number] Name: ATTLIA DEL CID Rep #: [id number] : 1970 48 From: Simon Knox DO PCP: Nyla Bearden MD Status: ADM FERCHO Y Location: [place] [address] Discharge Date and Diagnosis - Problem List Patient Problems: Active and Suspected Problems (Last Reviewed 02/26/18 @ 11:43 by ERNIE Carrillo) Non-cardiac chest pain (Acute) Date of Admission: 04/09/18 Date of Discharge: 04/09/18 - Primary Discharge Diagnosis Active and Suspected Problems (Last Reviewed 02/26/18 @ 11:43 by ERNIE Carrillo) Non-cardiac chest pain (Acute) - suspect due to panic attack - Secondary Discharge Diagnosis Chronic Problems (Last Reviewed 02/26/18 @ 11:43 by ERNIE Carrillo) Ascending aorta dilatation (Chronic) SVT (supraventricular tachycardia) (Chronic) LORETTA (obstructive sleep apnea) (Chronic) Atherosclerotic heart disease of [place] coronary artery without angina pectoris (Chronic) History of left heart catheterization (Chronic) 11/09/2016 @ [facility], per Dr. Shama Harley: normal coronaries 04/07/2018 @ [facility] per Dr. Stokes: normal coronaries Nephrolithiasis (Chronic) HTN (hypertension) (Chronic) Anxiety (Chronic) - not adequately controlled PAF (paroxysmal atrial fibrillation) (Chronic) Multiple cardioversions, [facility] ablation (2nd). Recent ED presentation 02/24/18 w/ Atrial Fibrillation w/ RVR, successful cardioversion performed. GERD (gastroesophageal reflux disease) (Chronic) Obesity (BMI 30-39.9) (Chronic) BPPV (benign paroxysmal positional vertigo) (Chronic) HLD (hyperlipidemia) (Chronic) Thoracic aortic aneurysm without rupture (Chronic) Hospital Course and Treatment Imaging Results: Clinical Impression(s) from Imaging Studies Chest X-Ray 04/08/18 20:45 IMPRESSION: No acute cardiopulmonary disease Electronically Signed: Lazaro Hoang DO at 21:20 EDT Tel , Service support , Laboratory Tests WBC 7.8 RBC 5.37 Hgb 14.4 Hct 44.6 MCV 83.1 MCH 26.8 L MCHC 32.3 RDW 15.4 H none Operations: None Procedures: None Summary of Care Provided: The patient is a 48 year old M with a past medical history of obesity, SVT with history of ablations, LORETTA, fast coronary artery disease but normal coronary arteries on cardiac cath 04/07/2018 at [facility], history of nephrolithiasis, hypertension, anxiety with panic attacks, paroxysmal atrial fibrillation, GERD, benign paroxysmal positional vertigo, hyperlipidemia and thoracic aortic aneurysm without rupture who presented to [facility] emergency room on 04/09/2018 complaining of chest pain and lightheadedness. Was not associated with exertion. He had a cardiac catheterization done by Dr. Jesse Stokes on 04/07/2018 and had normal coronaries and an ejection fraction of 60%. He was discharged at that time on flecainide and Imdur. He called Dr. Hale who was on-call for Dr. Stokes complaining of chest pain and lightheadedness and was told to come to the emergency room. In the emergency room his heart rate was 214 bpm but spontaneously improved to 82 bpm. But pressure was unremarkable and he was not tachypneic or hypoxic. No significant lab abnormalities at admission. Chest x-ray showed no infiltrates, pleural effusions or pulmonary vascular congestion. He was admitted to the hospital for observation. Telemetry showed occasional sinus tachycardia with heart rates in the 120s. Blood pressures were within normal limits. I spoke with Dr. Stokes and the Imdur was discontinued. Lisinopril was decreased to 10 mg twice daily from 40 mg daily. He will resume the flecainide. A 30 day event monitor was ordered prior to discharge from the hospital and he will follow up with Dr. Stokes in the office in 5-6 weeks to review the results of the 30 day event monitor. He has suffered from anxiety for a long time. He is currently on Effexor 150 mg daily for treatment of anxiety. He has been on benzodiazepines in the past that worked well to control his anxiety but they are highly addictive. He has had psychotherapy in the past but not for many years. Effexor can actually increase anxiety in patients whose problem is mostly anxiety. He has had panic attacks in the past with chest pain, shortness of breath, palpitations and a sensation that he is going to . Prior to discharge he met with Zachery Brush from the Behavioral Health program. The 150mg dose of Effexor was discontinued and he was given a prescription for 75mg capsules and will take 1 daily in the AM for 1 week and then discontinue. He will follow up with Josefina Colon NP 1 week after discontinuing the Effexor and I recommend he be started on a pure SSRI. He has tried Buspar in the past and it did not control his sx. I am hopeful he will be able to follow up in the program for therapy to learn to control his anxiety and panic attacks. Discharge Activity: Return to Normal Activity Call your doctor if you observe: Fever of 101 or Higher, Fainting spells Home Medications: Medications to take at Discharge Pantoprazole Sodium [Protonix] 40 mg PO DAILY 04/22/16 Carvedilol [Coreg] 25 mg PO BID 01/31/17 Albuterol Inhaler [Ventolin Hfa] 1 - 2 puff INHALATION Q4H PRN PRN #1 inhaler 07/15/17 Apixaban [Eliquis] 5 mg PO BID 09/21/17 gabapentin 100 mg capsule 100 mg PO QHS #30 cap 01/14/18 meclizine 12.5 mg tablet 12.5 mg PO QODAY PRN #30 tab 01/14/18 amlodipine 5 mg tablet 5 mg PO DAILY #90 tab 02/26/18 Furosemide 40 mg PO QDAY 03/20/18 Aspirin [Aspir-Low] 81 mg PO QDAY 04/09/18 Atorvastatin Calcium [Lipitor] 20 mg PO QDAY 04/09/18 Lisinopril [Zestril] 10 mg PO BID #60 tab 04/09/18 Tamsulosin HCl [Flomax] 0.4 mg PO QDAY 04/09/18 Venlafaxine HCl [Effexor Xr] 75 mg PO DAILY #7 cap.er.24h 04/09/18 Following Prescrptions Were Given to Patient: Venlafaxine HCl [Effexor Xr] 75 mg PO DAILY #7 cap.er.24h Lisinopril [Zestril] 10 mg PO BID #60 tab Other Amb Orders: 30-Day Event Recorder [[facility]] Location: None Selected Primary Care Physician: Nyla Bearden MD [Primary Care Provider] - Please follow up with your Primary Care Physician in: 2 weeks with Tawanda Colon Please Follow Up With: Jesse Stokes MD When: 5-6 weeks Patient Instructions: Your Body's Response to Anxiety, Understanding Panic Disorder (Panic Attack), Treating Anxiety Disorders with Therapy Disposition: Home Minutes spent on discharge:: 30 Patient Condition:: Good Medical Necessity - Tobacco Use Smoking Status: Never smoker Meaningful Use Info Meaningful Use Diagnoses (Choose all that apply): None applicable Code Visit OBSV E AND M: 99446 Observation care discharge 04/09/18 1604 <Electronically signed by Simon Knox DO> Date Simon Knox DO Cosigner Signature (if applicable): Date CC: Shelbie Knox; Jesse Stokes MD; Nyla Bearden MD Signed DISCHARGE INSTRUCTION Observed: 04/09/2018 Status: F Source: [place] 3:42 PM [facility] Medical Records Department [address] [place] [address] Instructions for Home/Discharge Instructions 04/09/18 1514 MR#: [id number] Acct: [id number] Name: ATTILA DEL CID Rep #: [id number] : 1970 48 From: Simon Knox DO PCP: Nyla Bearden MD Status: ADM FERCHO - Discharge Diagnoses Current Active Problems: Current Active and Chronic Problems (Last Reviewed 02/26/18 @ 11:43 by Tawanda Colon NP-Tate) Atypical chest pain (Acute) You will use the following diet at home:: Cardiac Your food should be the consistency of: Regular Your liquids should be the consistency of: Regular/Thin Discharge Activity: Return to Normal Activity Call your doctor if you observe: Fever of 101 or Higher, Fainting spells Instructions: Your Body's Response to Anxiety, Understanding Panic Disorder (Panic Attack), Treating Anxiety Disorders with Therapy Additional Instructions: 1. The Imdur has been discontinued. The dose of the Lisinopril has been reduced. This should take care of the problem with the low blood pressure. 2. You heart rate sometimes increases but it is regular. This is often associated with anxiety. Anxiety can lead to panic attacks. When you have a panic attack your chest gets tight, you feel short of breath(like the breath will not go the whole way down), sometimes your lips will get numb, your heart races and you feel as though you may . You have a lot of medical problems for someone so young and I can understand your anxiety but, this does not make for very good quality of life an it is treatable. You are on Effexor which is a good antidepressant but, some people get more anxious with Effexor. I think the best way to treat anxiety is with medication in conjunction with therapy. We have a behavioral health program at [facility] and they can help you to better control your anxiety. Allergies/Adverse Reactions: Allergies clonidine Allergy (Intermediate, Verified 04/02/18 12:11) rash levofloxacin [From Levaquin] Allergy (Verified 04/02/18 12:11) Rash Penicillins Allergy (Verified 04/02/18 12:11) Hives bupropion Adverse Reaction (Intermediate, Verified 04/02/18 12:11) vomiting celecoxib [From Celebrex] Adverse Reaction (Intermediate, Verified 04/02/18 12:11) vomiting eletriptan Adverse Reaction (Intermediate, Verified 04/02/18 12:11) Vomiting topiramate [From Topamax] Adverse Reaction (Intermediate, Verified 04/02/18 12:11) vomiting hydrocodone bitartrate [From Vicodin] Adverse Reaction (Verified 04/02/18 12:11) Nausea Medications to take at Discharge Pantoprazole Sodium [Protonix] 40 mg PO DAILY 04/22/16 Carvedilol [Coreg] 25 mg PO BID 01/31/17 Albuterol Inhaler [Ventolin Hfa] 1 - 2 puff INHALATION Q4H PRN PRN #1 inhaler 07/15/17 Apixaban [Eliquis] 5 mg PO BID 09/21/17 gabapentin 100 mg capsule 100 mg PO QHS #30 cap 01/14/18 meclizine 12.5 mg tablet 12.5 mg PO QODAY PRN #30 tab 01/14/18 amlodipine 5 mg tablet 5 mg PO DAILY #90 tab 02/26/18 Furosemide 40 mg PO QDAY 03/20/18 Aspirin [Aspir-Low] 81 mg PO QDAY 04/09/18 Atorvastatin Calcium [Lipitor] 20 mg PO QDAY 04/09/18 Lisinopril [Zestril] 10 mg PO BID #60 tab 04/09/18 Tamsulosin HCl [Flomax] 0.4 mg PO QDAY 04/09/18 Venlafaxine HCl [Effexor Xr] 75 mg PO DAILY #7 cap.er.24h 04/09/18 The following prescriptions were given: Venlafaxine HCl [Effexor Xr] 75 mg PO DAILY #7 cap.er.24h Lisinopril [Zestril] 10 mg PO BID #60 tab Orders to be completed after discharge: 30-Day Event Recorder [[facility]] Location: None Selected Primary Care Physician: Nyla Bearden MD [Primary Care Provider] - Please follow up with your Primary Care Physician in: 2 weeks with Tawanda Colon Please Follow Up With: Jesse Stokes MD When: 5-6 weeks Proposed Discharge Date: 04/09/18 04/09/18 1234 <Electronically signed by Simon Knox DO> Date Simon Knox DO CC: Jesse Stokes MD; Nyla Bearden MD HISTORY AND PHYSICAL Observed: 04/09/2018 Status: F Source: [place] EXAM 3:45 AM [facility] Medical Records Department [address] [place] [address] History and Physical 04/09/18 0333 MR#: [id number] Acct: [id number] Name: ATTILA DEL CID Rep #: [id number] : 1970 48 From: Edgar Sinclair MD PCP: Nyla Bearden MD Status: ADM FERCHO Y Location: [place] [address] Problem List (1) Atypical chest pain Status: Acute (2) Obesity (BMI 30.0-34.9) Status: Chronic (3) Chest pain Status: Acute Qualifiers: (4) Ascending aorta dilatation Status: Chronic (5) SVT (supraventricular tachycardia) Status: Chronic (6) LORETTA (obstructive sleep apnea) Status: Chronic (7) Atherosclerotic heart disease of [place] coronary artery without angina pectoris Status: Chronic Qualifiers: (8) History of left heart catheterization Status: Chronic Comment: 11/09/2016 @ [facility], per Dr. Shama Harley: normal coronaries 04/07/2018 @ [facility] per Dr. Stokes: normal coronaries (9) History of cardiac radiofrequency ablation Status: Resolved Comment: 10/09/[address] [facility] [address] Adnrew (10) Nephrolithiasis Status: Chronic (11) HTN (hypertension) Status: Chronic Qualifiers: (12) Anxiety Status: Chronic (13) PAF (paroxysmal atrial fibrillation) Status: Chronic Comment: Multiple cardioversions, [facility] ablation (2nd). Recent ED presentation 02/24/18 w/ Atrial Fibrillation w/ RVR, successful cardioversion performed. (14) GERD (gastroesophageal reflux disease) Status: Chronic Qualifiers: (15) Obesity (BMI 30-39.9) Status: Chronic (16) BPPV (benign paroxysmal positional vertigo) Status: Chronic Qualifiers: (17) HLD (hyperlipidemia) Status: Chronic Qualifiers: (18) Thoracic aortic aneurysm without rupture Status: Chronic History of Present Illness Date of Admission: 04/09/18 Chief Complaint: Chest pain or near syncope symptoms yesterday afternoon The patient is a 48 year old M with multiple comorbidities as mentioned above including paroxysmal A. fib status post cardioversion twice in February 2018 on Eliquis, had cardiac cath on Saturday by Dr. stokes, found to be normal coronary arteries with normal LV size, wall motion and systolic function and was discharged on flecainide and Imdur. Patient started having chest pain yesterday afternoon along with dizziness, and felt like near fall. Patient has chronic chest pain complain of localized midsternal squeezing chest pain but no associated shortness of breath, diaphoresis. In the ED, his heart rate was 214/min but later on improved to 82/min this spontaneously. No significant change in blood pressure or tachypnea or hypoxia. Patient was told to resume Eliquis from today. ER physician Dr. Stein talk to Dr Hale and advised observation and hold flecainide and Imdur. EKG shows normal sinus rhythm at 98 bpm. QTc 453 ms. Normal axis. Troponin negative. Chest x-ray no acute cardiopulmonary disease. Past Medical History Past Medical History (Chronic Problems): Chronic Problems (Last Reviewed 02/26/18 @ 11:43 by Tawanda Colon NP-Tate) Obesity (BMI 30.0-34.9) (Chronic) Ascending aorta dilatation (Chronic) SVT (supraventricular tachycardia) (Chronic) LORETTA (obstructive sleep apnea) (Chronic) Atherosclerotic heart disease of [place] coronary artery without angina pectoris (Chronic) History of left heart catheterization (Chronic) 11/09/2016 @ [facility], per Dr. Shama Harley: normal coronaries 04/07/2018 @ [facility] per Dr. Stokes: normal coronaries Nephrolithiasis (Chronic) HTN (hypertension) (Chronic) Anxiety (Chronic) PAF (paroxysmal atrial fibrillation) (Chronic) Multiple cardioversions, [facility] ablation (2nd). Recent ED presentation 02/24/18 w/ Atrial Fibrillation w/ RVR, successful cardioversion performed. GERD (gastroesophageal reflux disease) (Chronic) Obesity (BMI 30-39.9) (Chronic) BPPV (benign paroxysmal positional vertigo) (Chronic) HLD (hyperlipidemia) (Chronic) Thoracic aortic aneurysm without rupture (Chronic) Medical History: Medical History (Last Reviewed 02/26/18 @ 11:43 by ERNIE Carrillo) Ascending aorta dilatation (Chronic) I77.810 SVT (supraventricular tachycardia) (Chronic) I47.1 LORETTA (obstructive sleep apnea) (Chronic) G47.33 Atherosclerotic heart disease of [place] coronary artery without angina pectoris (Chronic) I25.10 Nephrolithiasis (Chronic) N20.0 HTN (hypertension) (Chronic) I10 Anxiety (Chronic) F41.9 PAF (paroxysmal atrial fibrillation) (Chronic) I48.0 Multiple cardioversions, [facility] ablation (2nd). Recent ED presentation 02/24/18 w/ Atrial Fibrillation w/ RVR, successful cardioversion performed. GERD (gastroesophageal reflux disease) (Chronic) K21.9 Obesity (BMI 30-39.9) (Chronic) E66.9 BPPV (benign paroxysmal positional vertigo) (Chronic) H81.10 HLD (hyperlipidemia) (Chronic) E78.5 Thoracic aortic aneurysm without rupture (Chronic) I71.2 Allergies clonidine Allergy (Intermediate, Verified 04/02/18 12:11) rash levofloxacin [From Levaquin] Allergy (Verified 04/02/18 12:11) Rash Penicillins Allergy (Verified 04/02/18 12:11) Hives bupropion Adverse Reaction (Intermediate, Verified 04/02/18 12:11) vomiting celecoxib [From Celebrex] Adverse Reaction (Intermediate, Verified 04/02/18 12:11) vomiting eletriptan Adverse Reaction (Intermediate, Verified 04/02/18 12:11) Vomiting topiramate [From Topamax] Adverse Reaction (Intermediate, Verified 04/02/18 12:11) vomiting hydrocodone bitartrate [From Vicodin] Adverse Reaction (Verified 04/02/18 12:11) Nausea Home Medications: Ambulatory Orders Medication Instructions Recorded Pantoprazole Sodium [Protonix] 40 mg PO DAILY 04/22/16 Carvedilol [Coreg] 25 mg PO BID 01/31/17 Albuterol Inhaler [Ventolin Hfa] 1 - 2 puff INHALATION Q4H PRN PRN 07/15/17 Surgical History: Surgical History (Last Updated 04/07/18 @ 17:03 by Pilar Martinez) History of left heart catheterization (Chronic) Z98.890 11/09/2016 @ [facility], per Dr. Shama Harley: normal coronaries 04/07/2018 @ [facility] per Dr. Stokes: normal coronaries History of cardiac radiofrequency ablation (Resolved) Z98.890 10/09/[address] [facility] [address] Andrew H/O arthroscopic knee surgery Z98.890 History of back surgery Z98.890 History of right knee surgery Z98.890 Surgical History: - - Nephrolithiasis w/ 3 lithotripsies in the right side, back surgery, R TKR, cardiac catheterization without PCI. Psychiatric History: Anxiety Smoking Status: Never smoker - *Family History Maternal Family History: Family History (Last Reviewed 02/26/18 @ 11:43 by ERNIE Carrillo) Brother Hypertension Mother Heart disease Colon cancer Sister Diabetes Sister Diabetes Sister Diabetes History Items: - - Maternal family history of DM, Colon CA, Valvular Heart Disease. Paternal Family History: Family History (Last Reviewed 02/26/18 @ 11:43 by ERNIE Carrillo) Brother Hypertension Mother Heart disease Colon cancer Sister Diabetes Sister Diabetes Sister Diabetes History Items: - - Paternal family history of skin CA. Review of Systems Constitutional: Denies: Chills, Fever, Weight Change HEENT: Reports: Difficulty Hearing - Perhaps has congenital hearing loss and uses hearing aid. Denies: Head Aches, Sinus Congestion, Sinus Drainage Cardiovascular: Reports: Chest Pain, Light Headedness. Denies: Palpitations Respiratory: Denies: Cough, Shortness of breath at rest, Sputum production Gastrointestinal: Denies: Abdominal Pain, Nausea, Vomiting Genitourinary: Denies: Dysuria Musculoskeletal: Denies: Joint Pain, Joint Tenderness Skin: Denies: Rash, Wounds Neurological: Denies: Numbness, Tingling, Focal weakness Psychiatric: Denies: Anxiety, Depression, Homicidal Ideations, Suicidal Ideations Hematologic/ Lymphatic: Denies: Easy Bruising, Easy Bleeding VTE Information - Inpt Only VTE Present on Admission: No VTE Mechan Device Prophylaxis: None Reason prophylaxis not ordered:: Procedure Not Indicated - On Eliquis Patient Problems: Active and Suspected Problems (Last Reviewed 02/26/18 @ 11:43 by ERNIE Carrillo) Atypical chest pain (Acute) - Physical Exam General: Alert, Oriented x3, Cooperative HEENT: Atraumatic, PERRLA, EOMI, Normocephalic Neck: Supple, No JVD, Negative Carotid Bruits Lungs: Clear to auscultation, Normal air movement Cardiovascular: Regular rate, Regular Rhythm, Normal S1, Normal S2, No murmurs Abdomen: Bowel Sounds Present, Soft, Non Tender, Non-Distended Extremities: No edema, Capillary Refill Less than 3 Seconds Skin: No rashes, No breakdown Musculoskeletal: No Tenderness to Palpation of Joints or Extremities, Arthritic Changes - Status post right TKR Neurological: Cranial nerves II-XII grossly intact, Neuro grossly intact Psych/Mental Status: Normal Affect, Appropriate Vital Signs Temp Pulse Resp BP Pulse Ox 97.9 F 78 18 103/66 98 04/09/18 01:00 04/09/18 02:10 04/09/18 01:35 04/09/18 01:00 04/09/18 02:39 Oxygen Flow Rate (L/min) 2 Oxygen Delivery Method Nasal Cannula Weight: 234 lb 2.095 oz Body Mass Index (BMI) 32.6 Assessment/Plan All Active Problems (Last Reviewed 02/26/18 @ 11:43 by ERNIE Carrillo) Atypical chest pain (Acute) Chest pain (Acute) History of cardiac radiofrequency ablation (Resolved) Double vision (Resolved) The patient is a 48 year old M with multiple comorbidities as mentioned above including paroxysmal A. fib status post cardioversion twice in February 2018 on Eliquis, had cardiac cath on Saturday by Dr. stokes, found to be normal coronary arteries with normal LV size, wall motion and systolic function and was discharged on flecainide and Imdur. Patient started having chest pain yesterday afternoon along with dizziness, and felt like near fall. Patient has chronic chest pain complain of localized midsternal squeezing chest pain but no associated shortness of breath, diaphoresis. In the ED, his heart rate was 214/min but later on improved to 82/min this spontaneously. No significant change in blood pressure or tachypnea or hypoxia. Patient was told to resume Eliquis from today. ER physician Dr. Stein talk to Dr Hale and advised observation and hold flecainide and Imdur. EKG shows normal sinus rhythm at 98 bpm. QTc 453 ms. Normal axis. Troponin negative. Chest x-ray no acute cardiopulmonary disease. 1. Atypical chest pain, localized most probably musculoskeletal chest pain: As mentioned above patient had cardiac cath on this past Saturday and normal coronaries were performed. No cardiac enzyme testing. Continue home cardiac medications 2. Sinus tachycardia: There is no explanation for his tachycardia, 214/min found in ER. Currently normal sinus rhythm. Orthostatic hold vital signs ordered. Hold flecainide and Imdur. Dr. Hale advised Dr. stokes consult. 3. Paroxysmal A. fib/ supraventricular tachycardia status post recent cardioversion: Continue home medication including carvedilol, baby aspirin, atorvastatin. Resume apixaban today 4. Multiple chronic comorbidities including atherosclerotic coronary artery disease and had multiple cardiac cath but no significant coronary stenosis found. Chronic ascending aortic dilatation, anxiety, obesity, GERD, dyslipidemia, chronic vertigo/BPPV: Home medication reconciliation done. DVT prophylaxis: Patient on Eliquis 5 mg twice daily This note was generated with Cloud[employer] dictation software. Every effort was made to ensure accuracy, however computerized spring up supervisor mistakes may persist. Code Visit OBSV E AND M: [id number] Initial observation care L3 04/09/18 0345 <Electronically signed by Edgar Sinclair MD> Date Edgar Sinclair MD Cosigner Signature: Date (if applicable) CC: Nyla Bearden MD; Edgar Sinclair MD Signed EMERGENCY DEPARTMENT Observed: 04/09/2018 Status: F Source: [place] SUMMARY 12:10 AM [facility] REPOSIT[facility] Medical Records Department [address] [place] [address] Emergency Department Summary 04/08/18 2237 MR#: [id number] Acct: [id number] Name: ATTILA DEL CID Rep #: [id number] : 1970 48 From: Rosalba Stein MD PCP: Nyla Bearden MD Status: REG ER - ER Visit Summary Date of Service: 04/08/18 Chief Complaint: Dizziness History of Present Illness: The patient is a 48 M presenting with dizziness which started around 3:30 PM. Patient had a heart catheterization yesterday with which showed normal coronary arteries. He was started on 2 new medications flecainide and Imdur. He took these medications around noon today. He states at 330pm he began feeling dizzy, nausea and had vomiting. He has chest pain and shortness of breath. Physical Examination: Vitals are stable. Patient is afebrile. Alert no acute distress. HEENT exam is unremarkable. Neck is supple. Lungs are clear and equal bilaterally. Heart is regular rate and rhythm. Abdomen is soft nontender nondistended. Extremities are unremarkable. Skin is warm and dry. No focal neurologic deficit. Remainder of exam is unremarkable. Emergency Department Course and Treatment: On arrival to the ED patient was dizzy, diaphoretic, nauseated. His heart rate was 214 in triage. When they brought him back to the ER bed his heart rate was 100. He was given IV fluids, zofran. He has chest pain which is not unusual for him. CBC, chemistries unremarkable. Troponin is negative. EKG is sinus rate of 98. Chest x-ray shows no acute process. Discussed with Dr. Hale who recommends holding his flecainide and Imdur and starting low-dose beta-carolee. He will be observed on telemetry overnight. Will discuss with the hospitalist. Disposition: Observation Impression: Tachycardia, possible medication reaction This note was generated with Cloudcity dictation software. It may contain incorrect words, spelling, and punctuation that were not noted in review of the chart prior to signing ED Disposition - Plan for ED Patient: Chief Complaint: Dizziness Referrals: Nyla Bearden MD [Primary Care Provider] - What to do if you have Problems For any increased pain, shortness of breath, bleeding, nausea or vomiting, chest pain, or any unexpected problems, contact your Primary Care Provider. Call [facility] ([phone]) or report to the closest Emergency Room. Call 911 if necessary. 04/09/18 0010 <Electronically signed by Rosalba Stein MD> Date Rosalba Gabriel Signature (If Indicated): Date CC: Nyla Bearden MD CHEST 1 VIEW Observed: 04/08/2018 Status: F Source: [place] (PORTABLE) 8:45 PM [facility] Imaging Services [address] [place] [address] Chest 1 View (Portable) MR#: [id number] Acct: [id number] Name: ATTILA DEL CID Rep #: [id number] : 1970 M 48 From: Lazaro Hoang DO PCP: Nyla Bearden MD Status: REG ER Study: Chest 1 View (Portable) Date of Exam: 04/08/18 Exam# [id number] Ordering Dr: Rosalba Stein MD STUDY: X-RAY CHEST REASON FOR EXAM: Male, 48 years old. Dizziness. History of aneurysm in the chest TECHNIQUE: Single AP portable view of the chest. COMPARISON: 04/02/2018 FINDINGS: Grossly unchanged widening of the mediastinum. Corresponding to given history of aneurysm of the thoracic aorta. The lungs are clear and expanded. There is no demonstrated pleural abnormality. Normal size heart. Normal mediastinum and ruben. Normal visualized pulmonary arteries. Normal visualized aortic arch and descending thoracic aorta. Normal visualized thoracic spine. Normal visualized ribs, clavicles, and shoulders. There is no demonstrated abnormality of the visualized soft tissue structures of the upper abdomen. RAD/Chest 1 View (Portable) IMPRESSION: No acute cardiopulmonary disease Electronically Signed: Lazaro Hoang DO at 21:20 EDT Tel , Service support , CC: Rosalba Stein MD; Nyla Bearden MD 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: Signed CBC W/DIFF, AUTOMATED Collected: 04/08/2018 Status: F Source: [place] 7:55 PM [facility] RE[facility] TYPE CODE TESTS RESULT OUT OF RANGE REFERENCE UNITS LAB L100.1000 4.4-11.0 K/mm3 Normal WBC 7.8 LAB L100.1200 4.6-6.2 M/mm3 Normal RBC 5.37 LAB L100.1300 13.0-16.5 g/dl Normal HGB 14.4 LAB L100.1400 40-54 % Normal HCT 44.6 LAB L100.1500 80-94 fL Normal MCV 83.1 LAB L100.1600 27.0-32.0 pg Low MCH 26.8 LAB L100.1700 32-36 g/gl Normal MCHC 32.3 LAB L100.1810 11.6-14.6 % High RDW CV 15.4 LAB L100.1820 35.1-43.9 fl High RDW SD 46.8 LAB L100.1900 150-450 K/mm3 Normal PLT 323 LAB L100.2000 6.2-12.0 fl Normal MPV 9.0 LAB L100.2100 47-70 % Normal NEUT% 53.4 LAB L100.2200 19-41 % Normal LY% 36.3 LAB L100.2300 0-10 % Normal MONO% 9.1 LAB L100.2400 0-5 % Normal EO% 0.8 LAB L100.2500 0-1 % Normal BASO% 0.4 LAB L100.2550 0.0-0.9 % Normal IM GRAN % 0.000 Result Comment: IG% - Immature Granulocytes (promyelocytes, myelocytes and metamyelocytes) > 1% indicates that a LEFT SHIFT is Present. LAB L100.2620 2.0-7.7 X10 3/uL Normal Absolute Neut 4.2 LAB L100.2720 0.83-4.51 X10 3/ul Normal Absolute Lymph 2.84 Performed By: #### L100.0100 #### [facility] [address] [place], [address] BASIC METABOLIC Collected: 04/08/2018 Status: F Source: [place] PROFILE (BMP) 7:55 PM [facility] REPOS[facility] TYPE CODE TESTS RESULT OUT OF RANGE REFERENCE UNITS LAB L501.0100 74-106 mg/dL Normal GLU 100 Result Comment: Fasting Glucose result from 100 to 125 mg/dL suggests IMPAIRED HOMEOSTASIS per A.D.A. criteria. Please note revised GLUCOSE reference range effective 2017. LAB L501.1000 7-18 mg/dL Normal BUN 14 LAB L501.1100 0.70-1.30 mg/dL Normal CREAT,SERUM 0.94 Result Comment: The validity of the calculated GFR AND GFRAA in patients over 70 years has not been determined. Clinical correlation is essential. LAB L501.1110 >60 mL/min Normal EST GFR 92 Result Comment: Non- GFR Calc LAB L501.1115 >60 mL/min Normal EST GFR - AA 111 Result Comment: GFR Calc LAB L501.1255 ml/min Normal Estimated CRCL 102.36 LAB L501.1300 10-20 RATIO BUN/CRE Normal 15.0 LAB L501.2200 8.5-10 mg/dL .1 CA Normal 8.9 LAB L501.5300 136-14 mmol/L 5 NA Normal 139 LAB L501.5600 3.5-5. mmol/L 1 K Normal 4.3 Result Comment: Moderate Hemolysis, Result may be falsely increased. LAB L501.5900 98-107 mmol/L Normal CL 105 LAB L501.6100 21.0-32.0 mmol/L Normal CO2 29.0 LAB L501.6200 5-15 Normal 5 GAP Performed By: #### L500.2500, L501.4010 #### [facility] [address] [place], [address] TROPONIN-I Collected: 04/08/2018 Status: F Source: [place] 7:55 PM [facility] TYPE CODE TESTS RESULT OUT OF RANGE REFERENCE UNITS LAB L501.4010 <0.045 ng/mL Normal < 0.015 TROPONIN-I Result Comment: TROPONIN-I EXPECTED VALUES <0.045 Negative 0.045 - 0.590 Consistent with Cardiac Damage > OR = 0.600 Critical Value Not every elevated troponin is indicative of MA. These values should be used with clinical judgement in examining the patient's clinical picture for diagnosis. To establish a diagnosis of MA versus myocardial injury, there must be a demonstrated rise and/or fall in the troponin values, in addition to ischemic symptoms, EKG changes, new regional wall motion abnormality, and/or angiographical evidence. PLEASE NOTE: REFERENCE RANGES EDITED 18 Performed By: #### L500.2500, L501.4010 #### [facility] [address] [facility] [place], [address] 12 LEAD ELECTROCARDIOGRAM Observed: 04/07/2018 Status: F Source: [place] 8:58 AM [facility] Cardiovascular Services [address] [place] [address] 12 Lead EKG 04/02/18 1231 MR#: [id number] Acct: [id number] Name: ATTILA DEL CID Rep #: [id number] : 1970 48 From: Asael Hale MD Attending Dr: Status: DEP ER Ordering Dr: Vazquez Mulligan MD Date: 04/02/18 Location: ED Sex: M C Admitted: Test Reason : PALPS Blood Pressure : / mmHG Vent. Rate : 114 BPM Atrial Rate : 114 BPM P-R Int : 160 ms QRS Dur : 076 ms QT Int : 312 ms P-R-T Axes : 000 -02 -01 degrees QTc Int : 430 ms Sinus tachycardia Nonspecific ST segment abnormality Abnormal ECG Confirmed by ALEXIA CONNOR, ASAEL ([id number]), dictionary editor RICCO LEWIS ([id number]) on 04/04/2018 2:39:43 PM Referred By: CANDACE Confirmed By:ASAEL HALE MD 04/04/18 1439 Date Asael Hale MD CC: Román Mulligan MD; Nyla Bearden MD Signed 12 LEAD ELECTROCARDIOGRAM Observed: 04/07/2018 Status: F Source: [place] 8:58 AM [facility] Cardiovascular Services [address] [place] [address] 12 Lead EKG 04/02/18 1213 MR#: [id number] Acct: [id number] Name: ATTILA DEL CID Rep #: [id number] : 1970 48 From: Asael aHle MD Attending Dr: Status: DEP ER Ordering Dr: Vazquez Mulligan MD Date: 04/02/18 Location: ED Sex: M C Admitted: Test Reason : PALPS Blood Pressure : / mmHG Vent. Rate : 187 BPM Atrial Rate : 202 BPM P-R Int : 000 ms QRS Dur : 078 ms QT Int : 256 ms P-R-T Axes : 000 012 180 degrees QTc Int : 451 ms Supraventricular tachycardia Nonspecific ST abnormality Abnormal ECG Confirmed by ASAEL HALE MD ([id number]), dictionary editor RICCO LEWIS ([id number]) on 04/04/2018 2:42:44 PM Referred By: CANDACE Confirmed By:ASAEL HALE MD 04/04/18 1442 Date Asael Hale MD CC: Román Mulligan MD; Nyla Bearden MD Signed 12 LEAD ELECTROCARDIOGRAM Observed: 04/07/2018 Status: F Source: [place] 8:51 AM [facility] Cardiovascular Services [address] [place] [address] 12 Lead EKG 03/20/18 0445 MR#: [id number] Acct: [id number] Name: ATTILA DEL CID Rep #: [id number] : 1970 48 From: Attila Oliva MD Attending Dr: Bradly Davis DO Status: DIS FERCHO Ordering Dr: Kandi Wylie Date: 03/20/18 Location: [facility] Sex: M C Admitted: 03/20/18 Test Reason : AM EKG Blood Pressure : / mmHG Vent. Rate : 063 BPM Atrial Rate : 063 BPM P-R Int : 158 ms QRS Dur : 088 ms QT Int : 398 ms P-R-T Axes : -02 004 006 degrees QTc Int : 407 ms Normal sinus rhythm Normal ECG When compared with ECG of 20-MAR-2018 02:35, MANUAL COMPARISON REQUIRED, DATA IS UNCONFIRMED Confirmed by ATTILA OLIVA ([id number]), dictionary editor RICCO LEWIS ([id number]) on 04/02/2018 7:47:29 PM Referred By: MARIBEL Confirmed By:ATTILA OLIVA 04/02/181946 Date Attila Oliva MD CC: Kandi Wylie; Nyla Bearden MD; Bradly Davis DO Signed 12 LEAD ELECTROCARDIOGRAM Observed: 04/07/2018 Status: F Source: [place] 8:41 AM [facility] Cardiovascular Services [address] [place] [address] 12 Lead EKG 04/01/18 1621 MR#: [id number] Acct: [id number] Name: ATTILA DEL CID Rep #: [id number] : 1970 48 From: Jesse Stokes MD Attending Dr: Status: DEP ER Ordering Dr: Attila Hutchinson DO Date: 04/01/18 Location: ED Sex: M C Admitted: Test Reason : CP Blood Pressure : / mmHG Vent. Rate : 091 BPM Atrial Rate : 091 BPM P-R Int : 148 ms QRS Dur : 082 ms QT Int : 356 ms P-R-T Axes : -02 007 021 degrees QTc Int : 437 ms Normal sinus rhythm Normal ECG Confirmed by JESSE STOKES MD ([id number]), dictionary editor RICCO LEWIS ([id number]) on 04/02/2018 4:59:24 PM Referred By: ZAKI Confirmed By:JESSE STOKES MD 04/02/18 6815 Date Jesse Stokes MD CC: Attila Hutchinson DO; Nyla Bearden MD Signed 12 LEAD ELECTROCARDIOGRAM Observed: 04/07/2018 Status: F Source: [place] 8:40 AM [facility] Cardiovascular Services [address] [place] [address] 12 Lead EKG 03/20/18 0235 MR#: [id number] Acct: [id number] Name: ATTILA DEL CID Rep #: [id number] : 1970 48 From: Attila Oliva MD Attending Dr: Bradly Davis DO Status: DIS FERCHO Ordering Dr: Maryjo Woods Date: 03/20/18 Location: [facility] Sex: M C Admitted: 03/20/18 Test Reason : CP Blood Pressure : / mmHG Vent. Rate : 075 BPM Atrial Rate : 075 BPM P-R Int : 158 ms QRS Dur : 082 ms QT Int : 362 ms P-R-T Axes : 008 005 001 degrees QTc Int : 404 ms Normal sinus rhythm Normal ECG Confirmed by ATTILA OLIVA ([id number]), dictionary editor RICCO LEWIS ([id number]) on 03/31/2018 6:42:01 PM Referred By: NIDA Confirmed By:ATTILA OLIVA 03/31/18 1842 Date Attila Oliva MD CC: Maryjo Woods; Nyla Bearden MD; Bradly Davis DO Signed CONSULTATION Observed: 04/07/2018 Status: F Source: [place] 7:47 AM [facility] Medical Records Department [address] [place] [address] Consultation 04/07/18 0742 MR#: [id number] Acct: [id number] Name: ATTILA DEL CID Rep #: [id number] : 1970 48 From: Jesse Stokes MD PCP: Nyla Bearden MD Status: PRE [facility] Location: [facility] Reason for Consult Date of Consultation: 04/07/18 Reason for Consultation: Preop consultation History of Present Illness: ATTILA DEL CID, is a 48 M who presents to the hospital today for a cardiac catheterization.. He is a gentleman with a history of supraventricular tachycardia status post SVT ablation over 20 years ago he had had palpitations undergone multiple cardioversion procedures and was noted to have atrial fibrillation with rapid ventricular response rate and was sent to the [facility] where he underwent a repeat ablation. As you know he also has a 5 cm ascending aortic aneurysm. After the ablation he tells me that he has continued to have some chest discomfort he had presented to the emergency room and there was no evidence of pericardial effusion. He continues to have neck discomfort and chest discomfort sometimes which are sharp and other times dull. He had been placed on colchicine as well as nonsteroidal anti-inflammatory agents but it appears that he has discontinued both of these. His echocardiogram was remembered demonstrated an ejection fraction of 60-65% with mild pulmonary hypertension. He recently presented to the emergency room with a supraventricular tachyarrhythmia. He has continued to complain of chest pain despite normal stress test as well as echocardiograms. His last catheterization was in October 2016 which was noted to be normal. His physical exam today demonstrates clear lung jackson regular rate and rhythm and no pedal edema. There is no pericardial friction rub noted. Past Medical History Allergies/Adverse Reactions: Allergies clonidine Allergy (Intermediate, Verified 04/02/18 12:11) rash levofloxacin [From Levaquin] Allergy (Verified 04/02/18 12:11) Rash Penicillins Allergy (Verified 04/02/18 12:11) Hives bupropion Adverse Reaction (Intermediate, Verified 04/02/18 12:11) vomiting celecoxib [From Celebrex] Adverse Reaction (Intermediate, Verified 04/02/18 12:11) vomiting eletriptan Adverse Reaction (Intermediate, Verified 04/02/18 12:11) Vomiting topiramate [From Topamax] Adverse Reaction (Intermediate, Verified 04/02/18 12:11) vomiting fentanyl Adverse Reaction (Unknown, Verified 04/02/18 12:11) unknown hydrocodone bitartrate [From Vicodin] Adverse Reaction (Verified 04/02/18 12:11) Nausea Home Medications: Ambulatory Orders Medication Instructions Recorded Pantoprazole Sodium [Protonix] 40 mg PO DAILY 04/22/16 Carvedilol [Coreg] 25 mg PO BID 01/31/17 Past Medical History (Chronic Problems): Chronic Problems (Last Reviewed 02/26/18 @ 11:43 by ERNIE Carrillo) Obesity (BMI 30.0-34.9) (Chronic) Ascending aorta dilatation (Chronic) SVT (supraventricular tachycardia) (Chronic) LORETTA (obstructive sleep apnea) (Chronic) Atherosclerotic heart disease of [place] coronary artery without angina pectoris (Chronic) History of left heart catheterization (Chronic) 11/09/2016 @ [facility], per Dr. Shama Harley: normal coronaries Nephrolithiasis (Chronic) HTN (hypertension) (Chronic) Anxiety (Chronic) PAF (paroxysmal atrial fibrillation) (Chronic) Multiple cardioversions, [facility] ablation (2nd). Recent ED presentation 02/24/18 w/ Atrial Fibrillation w/ RVR, successful cardioversion performed. GERD (gastroesophageal reflux disease) (Chronic) Obesity (BMI 30-39.9) (Chronic) BPPV (benign paroxysmal positional vertigo) (Chronic) HLD (hyperlipidemia) (Chronic) Thoracic aortic aneurysm without rupture (Chronic) Surgical History: - - Nephrolithiasis w/ 3 lithotripsies in the right side, back surgery, R TKR, cardiac catheterization without PCI. Psychiatric History: Anxiety - *Family History Maternal Family History: Family History (Last Reviewed 02/26/18 @ 11:43 by ERNIE Carrillo) Brother Hypertension Mother Heart disease Colon cancer Sister Diabetes Sister Diabetes Sister Diabetes History Items: - - Maternal family history of DM, Colon CA, Valvular Heart Disease. Paternal Family History: Family History (Last Reviewed 02/26/18 @ 11:43 by ERNIE Carrillo) Brother Hypertension Mother Heart disease Colon cancer Sister Diabetes Sister Diabetes Sister Diabetes History Items: - - Paternal family history of skin CA. Smoking Status: Never smoker Review of Systems - Review of Systems General: Denies: Fever, Night Sweats, Fatigue Cardiovascular: Denies: Chest Discomfort, Shortness of Breath, Orthopnea, PND, Peripheral Edema, Palpitations, Lightheadedness, Dizziness, Near Syncope, Syncope Respiratory: Denies: Cough, Sputum Production, Hemoptysis Gastrointestinal: Denies: Hematemesis, Hematochezia, Melena Genitourinary: Denies: Dysuria, Hematuria Skin: Denies: Rash Subjectve: Pleasant gentleman in no apparent distress Objective: Weight: 239 lb Body Mass Index (BMI) 33.3 Finger Stick Blood Glucose 95 General: Awake, Alert, Oriented x 3 HEENT: PERRL, EOMI, Sclera Non Icteric Neck: Supple, Good ROM, No Lymph Node Enlargement Lungs: Clear to auscultation Cardiovascular: Regular Rhythm, Normal S1, Normal S2, No Murmurs, No Rubs, No Gallops Rhythm: EKG: ECHO: Stress Test: Cardiac Cath: PCI: CT Surgery: Holter monitor: EPS: PPM: CXR: Chest CT Scan: Assessment/Plan 1. Chest pain. Patient presents with recurrent chest discomfort despite a normal coronary anatomy documented approximately a year and a half ago. He continues to present to the emergency room with the above and therefore it is felt that he should have a follow- up evaluation of his coronary anatomy. Risks benefits alternatives have been explained to him he understands and agrees to proceed. 2. Hypertension. Patient appears to have hypertension which is under good control and no changes will be made to his medications. 3. Supraventricular tachyarrhythmia. Patient has a history of paroxysmal atrial fibrillation as well as supraventricular tachyarrhythmia. He had this ablated. But he says he continues to have symptoms. He will continue to be followed up through the EP service. Thank you for allowing me to participate in the care of your patient. Please don't hesitate to call if any issues arise 04/07/18 0747 <Electronically signed by Jesse Stokes MD> Date Jesse Stokes MD Cosigner Signature (if applicable): Date CC: Jesse Stokes MD; Nyla Bearden MD Signed EMERGENCY DEPARTMENT Observed: 04/04/2018 Status: F Source: [facility] SUMMARY 4:09 PM [facility] REPOSITORY [facility] Medical Records Department [address] [place] [address] Emergency Department Summary 04/01/18 1909 MR#: [id number] Acct: [id number] Name: ATTILA DEL CID Rep #: [id number] : 1970 48 From: Attila Hutchinson DO PCP: Nyla Bearden MD Status: DEP ER - ER Visit Summary Date of Service: 04/01/18 Chief Complaint: Chest pain History of Present Illness: The patient is a 48 M who states for the past 4 days he is on on and off chest pain. He describes it as sharp and tight in the left side of his chest going up into his neck. States his atrial fibrillation has been off and on yesterday about 4 times once today. Call for his office and advised him to come to the emergency room. Had a heart catheterization in October 2016 was negative. He was just admitted to the hospital in February 2018 the stress test that was negative. He has another heart catheterization scheduled in 6 days. He has a known thoracic aneurysm in about 4.3 cm and he is worried that his aneurysm has ruptured. He denies any cough. No significant shortness of breath except on exertion. Physical Examination: Afebrile vital signs are stable Gen: Well-nourished well-developed Head: Normocephalic atraumatic Eyes: Perrl EOMI ENT: TMs clear no rhinorrhea moist mucous membranes Neck: Supple no lymphadenopathy no JVD nontender CVS: Regular rate rhythm no murmurs normal S1-S2 Respiratory: No distress clear to auscultation bilaterally chest nontender Abdomen: Soft nontender nondistended normal bowel sounds no masses Back: Nontender Extremity: Nontender no edema Skin: Normal color no rash Neuro: alert orientated 3 CN II-XII intact normal strength sensation reflexes gait cerebellar Psych: Anxious Test Results: EKG sinus at a rate of 91 appears unchanged from prior. CBC chemistries showed a chloride of 109 troponin less than 0.015. CT of the chest demonstrated no PE no evidence of dissection and his aneurysm is at 4.3. Emergency Department Course and Treatment: Patient received Toradol and Xanax. 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 Chest pain 2. Thoracic aortic aneurysm This note was generated with [employer]ation software. It may contain incorrect words, spelling, and punctuation that were not noted in review of the chart prior to signing ED Disposition - Plan for ED Patient: Disposition: Home or Assisted Living Chief Complaint: Chest Pain Instructions: ED Chest Pain Atypical Unkn Cause Referrals: Nyla Bearden MD [Primary Care Provider] - Jesse Stokes MD [STAFF PHYSICIAN] - Keep Gabrielle appointment What to do if you have Problems For any increased pain, shortness of breath, bleeding, nausea or vomiting, chest pain, or any unexpected problems, contact your Primary Care Provider. Call [facility] ([phone]) or report to the closest Emergency Room. Call 911 if necessary. 04/04/18 1601 <Electronically signed by Attila Hutchinson DO> Date Attila Hutchinson DO Cosigner Signature (If Indicated): Date CC: N[facility] Bearden MD [facility] Observed: 04/04/2018 Status: COMPLETED Source: [facility] 12:00 AM CLINIC OTHER CAMPUS REPOSITORY Telephone (AKURFL) ATTILA DEL CID ([id number]) 1970 [facility] Date Time Provider Department 04/04/18 CAMRON PEREZ [facility] During your visit today, we recorded the following information about you: Camron Perez MD 04/04/2018 8:19 AM Signed recent appointment with Li. Imaging shows right renal stones. does he want to consider shockwave lithotripsy.If so will need KUB. I will enter order for KUB Linda Fonseca Teller Supervisor 04/04/2018 12:14 PM Signed Please see message below per provider Linda Fonseca Teller Supervisor Allergies As of Date: 04/04/2018 Noted Allergy Reaction CELEBREX (CELECOXIB) 07/17/2016 11 - Vomiting Comments: Nausea CLONIDINE 07/17/2016 2 - Rash FENTANYL 07/17/2016 8 - GI Upset LEVOFLOXACIN 04/13/2017 2 - Rash Comments: pt reports to [facility] PT 6-24-2017 PENICILLIN G 12/30/2013 2 - Rash RELPAX (ELETRIPTAN HBR) 07/17/2016 11 - Vomiting Comments: Nausea TOPAMAX (TOPIRAMATE) 07/17/2016 11 - Vomiting VICODIN (HYDROCODONE-ACETAMINOPHE*12/30/2013 11 - Vomiting WELLBUTRIN (BUPROPION HCL) 07/17/2016 11 - Vomiting Comments: Nausea Date Reviewed: 03/25/2018 Reviewed by: Li Winston (Pa) - Fully Assessed Reason for Visit: Results [95] Prescriptions as of 04/04/2018 Sig: TAMSULOSIN 0.4 MG CAPSULE every day ILKOITTXSP-BAXZPZEESLBTM-JIMI* GABAPENTIN 300 MG CAPSULE OXYCODONE-ACETAMINOPHEN 5 MG-* APIXABAN 5 MG TABLET Take by mouth twice daily. SERTRALINE 100 MG TABLET 200 mg. CARVEDILOL 25 MG TABLET Take 1 tablet by mouth twice * BUSPIRONE 7.5 MG TABLET Take 7.5 mg by mouth twice da* MECLIZINE 12.5 MG TABLET Take 2 tablets by mouth twice* LISINOPRIL 20 MG TABLET Take 1 tablet by mouth once d* ROPINIROLE 1 MG TABLET Take 1 tablet by mouth daily * PANTOPRAZOLE 40 MG TABLET,DEL* Take 1 tablet by mouth once d* ALBUTEROL SULFATE HFA 90 MCG/* Inhale 2 Puffs as instructed * IBUPROFEN 600 MG TABLET Take 1 tablet by mouth every * PROMETHAZINE 25 MG TABLET Take 25 mg by mouth every 6 h* Problem List As Of Date 04/04/2018 Noted Resolved Primary osteoarthritis of right knee [M17.11] INVALID FOR* Chest pain at rest [R07.9] INVALID FOR* HTN (hypertension) [I10] INVALID FOR* Atrial fibrillation (HCC) [I48.91] INVALID FOR* More... Atypical chest pain [R07.89] INVALID FOR* Patellofemoral instability of right knee with p*INVALID FOR* Kidney stones [N20.0] INVALID FOR* Acute right flank pain [R10.9] INVALID FOR* Encounter Status:Closed by CAMRON PEREZ MD on 04/04/18 EMERGENCY DEPARTMENT Observed: 04/02/2018 Status: F Source: [facility] SUMMARY 3:01 PM [facility] REPOSITORY [facility] Medical Records Department [address] [place] [address] Emergency Department Summary 04/02/18 1449 MR#: [id number] Acct: [id number] Name: ATTILA DEL CID Rep #: [id number] : 1970 48 From: Vazquez Mulligan MD PCP: Nyla Bearden MD Status: REG ER - ER Visit Summary Date of Service: 04/02/18 Chief Complaint: Palpitations History of Present Illness: The patient is a 48 M with a history of recurrent SVT with multiple cardioversions in the past presents with SVT. He felt himself go into it this morning. He has no chest pain or shortness of breath. No diaphoresis. He is not certain if he missed a dose of medication. He had an ablation last September and has not had an episode since then. He is scheduled for a heart cath with Dr. Sotkes next Saturday. He is still on his anticoagulants until this Saturday and after that he is holding them for the procedure. Physical Examination: He is tachycardic in the 180s. Other vitals are within normal limits. He is not in distress. Neck is supple. Heart tones are regular. No murmur. Lungs clear bilaterally. No clinical evidence of DVT. Normal neurologic exam. Test Results: Is all within normal limits. Troponin negative. EKG revealed SVT. He was consented and treated with one 6 mg dose of adenosine. He converted easily to sinus rhythm. He remained in sinus rhythm with a normal rate throughout the rest of his stay and his vital signs all remained within normal limits. He now has no complaints. I discussed the case with Dr. Stokes who knows him well. He is comfortable with discharge home and he will keep his heart cath appointment. He will return if worse before then. Emergency Department Course and Treatment: Follow-up with Dr. Stokes for heart cath Treatment Plan: Follow-up Disposition: Home stable condition Impression: Initial encounter SVT with chemical cardioversion This note was generated with [employer]ation software. It may contain incorrect words, spelling, and punctuation that were not noted in review of the chart prior to signing ED Disposition - Plan for ED Patient: Chief Complaint: Palpitations Diagnosis: SVT (supraventricular tachycardia) Additional Instructions: Keep your heart cath appointment What to do if you have Problems For any increased pain, shortness of breath, bleeding, nausea or vomiting, chest pain, or any unexpected problems, contact your Primary Care Provider. Call [facility] ([phone]) or report to the closest Emergency Room. Call 911 if necessary. 04/02/18 1501 <Electronically signed by Vazquez Mulligan MD> Date Vazquez Mulligan MD Cosigner Signature (If Indicated): Date CC: Nyla Bearden MD CHEST 1 VIEW Observed: 04/02/2018 Status: F Source: [facility] (PORTABLE) 12:37 PM [facility] REPOSITORY [facility] Imaging Services [address] [place] [id number] Chest 1 View (Portable) MR#: [id number] Acct: [id number] Name: ATTILA DEL CID Rep #: [id number] : 1970 M 48 From: Sasha Valverde MD PCP: Nyla Bearden MD Status: REG ER Study: Chest 1 View (Portable) Date of Exam: 04/02/18 Exam# [id number] Ordering Dr: Vazquez Mulligan MD STUDY: X-RAY CHEST REASON FOR EXAM: Male, 48 years old. A. Fib TECHNIQUE: Single frontal view of the chest. COMPARISON: March 20, 2018 FINDINGS: The lungs are clear and expanded. There is no demonstrated pleural abnormality. Normal size heart. Normal mediastinum and ruben. Normal visualized pulmonary arteries. There is a stable prominent ascending aorta. Normal visualized thoracic spine. Normal visualized ribs, clavicles, and shoulders. There is no demonstrated abnormality of the visualized soft tissue structures of the upper abdomen. RAD/Chest 1 View (Portable) IMPRESSION: Stable examination demonstrating no acute cardiopulmonary process. Electronically Signed: Sasha Valverde MD at 14:39 EDT Tel , Service support , CC: Román Mulligan MD; Nyla Bearden MD 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: Signed CBC W/DIFF, AUTOMATED Collected: 04/02/2018 Status: F Source: [facility] 12:22 PM [facility] REPOSITORY TYPE CODE TESTS RESULT OUT OF RANGE REFERENCE UNITS LAB L100.1000 4.4-11.0 K/mm3 Normal WBC 8.4 LAB L100.1200 4.6-6.2 M/mm3 Normal RBC 5.83 LAB L100.1300 13.0-16.5 g/dl Normal HGB 15.8 LAB L100.1400 40-54 % Normal HCT 48.4 LAB L100.1500 80-94 fL Normal MCV 83.0 LAB L100.1600 27.0-32.0 pg Normal MCH 27.1 LAB L100.1700 32-36 g/gl Normal MCHC 32.6 LAB L100.1810 11.6-14.6 % High RDW CV 15.8 LAB L100.1820 35.1-43.9 fl High RDW SD 47.8 LAB L100.1900 150-450 K/mm3 Normal PLT 305 LAB L100.2000 6.2-12.0 fl Normal MPV 8.7 LAB L100.2100 47-70 % Normal NEUT% 52.4 LAB L100.2200 19-41 % Normal LY% 39.7 LAB L100.2300 0-10 % Normal MONO% 6.2 LAB L100.2400 0-5 % Normal EO% 1.2 LAB L100.2500 0-1 % Normal BASO% 0.4 LAB L100.2550 0.0-0.9 % Normal IM GRAN % 0.100 Result Comment: IG% - Immature Granulocytes (promyelocytes, myelocytes and metamyelocytes) > 1% indicates that a LEFT SHIFT is Present. LAB L100.2620 2.0-7.7 X10 3/uL Normal Absolute Neut 4.4 LAB L100.2720 0.83-4.51 X10 3/ul Normal Absolute Lymph 3.32 Performed By: #### L100.0100 #### [facility] [address] [place], [address] BASIC METABOLIC Collected: 04/02/2018 Status: F Source: [facility] PROFILE ([facility]) 12:22 PM [facility] REPOSITORY TYPE CODE TESTS RESULT OUT OF RANGE REFERENCE UNITS LAB L501.0100 74-106 mg/dL Normal GLU 100 Result Comment: Fasting Glucose result from 100 to 125 mg/dL suggests IMPAIRED HOMEOSTASIS per A.D.A. criteria. Please note revised GLUCOSE reference range effective 2017. LAB L501.1000 7-18 mg/dL Normal BUN 12 LAB L501.1100 0.70-1.30 mg/dL Normal CREAT,SERUM 0.95 Result Comment: The validity of the calculated GFR AND GFRAA in patients over 70 years has not been determined. Clinical correlation is essential. LAB L501.1110 >60 mL/min Normal EST GFR 90 Result Comment: Non- GFR Calc LAB L501.1115 >60 mL/min Normal EST GFR - AA 109 Result Comment: GFR Calc LAB L501.1255 ml/min Normal Estimated CRCL 101.28 LAB L501.1300 10-20 RATIO BUN/CRE Normal 12.6 LAB L501.2200 8.5-10 mg/dL .1 CA Normal 9.0 LAB L501.5300 136-14 mmol/L 5 NA Normal 140 LAB L501.5600 3.5-5. mmol/L 1 K Normal 3.8 LAB L501.5900 98-107 mmol/L CL Normal 106 LAB L501.6100 21.0-3 mmol/L 2.0 CO2 Normal 29.0 LAB L501.6200 5-15 GAP Normal 5 Performed By: #### L500.2500, L501.4010 #### [facility] [address] [place], [address] TROPONIN-I Collected: 04/02/2018 Status: F Source: [place] 12:22 PM [facility] REPOSIT[facility] TYPE CODE TESTS RESULT OUT OF RANGE REFERENCE UNITS LAB L501.4010 <0.045 ng/mL Normal < 0.015 TROPONIN-I Result Comment: TROPONIN-I EXPECTED VALUES <0.045 Negative 0.045 - 0.590 Consistent with Cardiac Damage > OR = 0.600 Critical Value Not every elevated troponin is indicative of MA. These values should be used with clinical judgement in examining the patient's clinical picture for diagnosis. To establish a diagnosis of MA versus myocardial injury, there must be a demonstrated rise and/or fall in the troponin values, in addition to ischemic symptoms, EKG changes, new regional wall motion abnormality, and/or angiographical evidence. PLEASE NOTE: REFERENCE RANGES EDITED 18 Performed By: #### L500.2500, L501.4010 #### [facility] [address] [facility] [place], [address] CBC W/DIFF, AUTOMATED Collected: 04/01/2018 Status: F Source: [place] 5:15 PM [facility] REPOSITORY TYPE CODE TESTS RESULT OUT OF RANGE REFERENCE UNITS LAB L100.1000 4.4-11.0 K/mm3 Normal WBC 6.9 LAB L100.1200 4.6-6.2 M/mm3 Normal RBC 5.26 LAB L100.1300 13.0-16.5 g/dl Normal HGB 14.0 LAB L100.1400 40-54 % Normal HCT 43.9 LAB L100.1500 80-94 fL Normal MCV 83.5 LAB L100.1600 27.0-32.0 pg Low MCH 26.6 LAB L100.1700 32-36 g/gl Low MCHC 31.9 LAB L100.1810 11.6-14.6 % High RDW CV 15.9 LAB L100.1820 35.1-43.9 fl High RDW SD 48.5 LAB L100.1900 150-450 K/mm3 Normal PLT 266 LAB L100.2000 6.2-12.0 fl Normal MPV 8.7 LAB L100.2100 47-70 % Normal NEUT% 53.0 LAB L100.2200 19-41 % Normal LY% 36.9 LAB L100.2300 0-10 % Normal MONO% 8.2 LAB L100.2400 0-5 % Normal EO% 1.2 LAB L100.2500 0-1 % Normal BASO% 0.4 LAB L100.2550 0.0-0.9 % Normal IM GRAN % 0.300 Result Comment: IG% - Immature Granulocytes (promyelocytes, myelocytes and metamyelocytes) > 1% indicates that a LEFT SHIFT is Present. LAB L100.2620 2.0-7.7 X10 3/uL Normal Absolute Neut 3.6 LAB L100.2720 0.83-4.51 X10 3/ul Normal Absolute Lymph 2.53 Performed By: #### L100.0100 #### [facility] [address] [place], [address] BASIC METABOLIC Collected: 04/01/2018 Status: F Source: [facility] PROFILE ([facility]) 5:15 PM [facility]IT[facility] TYPE CODE TESTS RESULT OUT OF RANGE REFERENCE UNITS LAB L501.0100 74-106 mg/dL Normal GLU 84 Result Comment: Please note revised GLUCOSE reference range effective 2017. LAB L501.1000 7-18 mg/dL Normal BUN 14 LAB L501.1100 0.70-1.30 mg/dL Normal CREAT,SERUM 0.76 Result Comment: The validity of the calculated GFR AND GFRAA in patients over 70 years has not been determined. Clinical correlation is essential. LAB L501.1110 >60 mL/min Normal EST GFR 117 Result Comment: Non- GFR Calc LAB L501.1115 >60 mL/min Normal EST GFR - AA 142 Result Comment: GFR Calc LAB L501.1300 10-20 RATIO Normal BUN/CRE 18.5 LAB L501.2200 8.5-10.1 mg/dL CA Normal 8.6 LAB L501.5300 136-145 mmol/L NA Normal 140 LAB L501.5600 3.5-5.1 mmol/L K Normal 3.8 LAB L501.5900 98-107 mmol/L High CL 109 LAB L501.6100 21.0-32.0 mmol/L Normal CO2 26.0 LAB L501.6200 5-15 Normal GAP 5 Performed By: #### L500.2500, L501.4010 #### [facility] [address] [place], [address] TROPONIN-I Collected: 04/01/2018 Status: F Source: [facility] 5:15 PM [facility]IT[facility] TYPE CODE TESTS RESULT OUT OF RANGE REFERENCE UNITS LAB L501.4010 <0.045 ng/mL Normal < 0.015 TROPONIN-I Result Comment: TROPONIN-I EXPECTED VALUES <0.045 Negative 0.045 - 0.590 Consistent with Cardiac Damage > OR = 0.600 Critical Value Not every elevated troponin is indicative of MA. These values should be used with clinical judgement in examining the patient's clinical picture for diagnosis. To establish a diagnosis of MA versus myocardial injury, there must be a demonstrated rise and/or fall in the troponin values, in addition to ischemic symptoms, EKG changes, new regional wall motion abnormality, and/or angiographical evidence. PLEASE NOTE: REFERENCE RANGES EDITED 18 Performed By: #### L500.2500, L501.4010 #### [facility] [address] [place], [address] CTA CHEST W/WO Observed: 04/01/2018 Status: F Source: [place] CONTRAST 4:58 PM [facility] REPOSITORY [facility] Imaging Services [address] [place] [address] CTA Chest W/WO Contrast MR#: [id number] Acct: [id number] Name: ATTILA DEL CID Rep #: [id number] : 1970 M 48 From: Carlos Atkins DO PCP: Nyla Bearden MD Status: REG ER Study: CTA Chest W/WO Contrast Date of Exam: 04/01/18 Exam# [id number] Ordering Dr: Attila Hutchinson DO STUDY: CTA CHEST REASON FOR EXAM: Male, 48 years old. Chest pain RADIATION DOSAGE (If Supplied By Facility): CTDIvol = ( 15.06 ) mGy, DLP = ( 681.51 ) mGycm TECHNIQUE: The examination was performed with the intravenous administration of 100 ml of Isovue 300 contrast material. Post-processing of the angiographic images was performed, with multiplanar reformation and 3D reconstruction. Individualized dose optimization techniques were used for this CT. COMPARISON: None. FINDINGS: Normal enhancement of the main pulmonary artery and right and left pulmonary arteries. Normal enhancement of the bilateral peripheral pulmonary arteries. There is no demonstrated pulmonary embolism. Ectatic ascending thoracic aorta measuring 4.3 cm in diameter. Normal visualized great vessels. There is no demonstrated aortic dissection. Normal heart and pericardium. Normal mediastinum. Normal hilar regions. Normal visualized trachea and bronchi. The lungs are well expanded. Nonspecific punctate left upper lobe peripheral nodule, image 172.. Normal pleura. Normal chest wall structures. Normal osseous structures. Normal visualized upper abdomen. CT/CTA Chest W/WO Contrast IMPRESSION: No demonstrated pulmonary embolism or arterial dissection. Dilated ascending aorta. Nonspecific left upper lobe punctate nodule in the periphery. Electronically Signed: Carlos Atkins DO at 18:18 EDT Tel [phone], Service support , CC: Attila Hutchinson DO; Nyla Bearden MD 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: Signed URINALYSIS ROUTINE Collected: 03/25/2018 Status: F Source: [facility] 5:00 PM HEALTH SYSTEM REPOSITORY TYPE CODE TESTS RESULT OUT OF REFERENCE UNITS RANGE LAB COLOR(LOIN C) Urine Color YELLOW LAB APPUR(LOIN C) Urine Appearance CLEAR LAB GLUUR(LOIN Negative mg/dL C) Glucose Urine NEGATIVE LAB KETON(LOIN Negative mg/dL C) Ketone Urine NEGATIVE LAB HGBUR(LOIN Negative C) Hemoglobin,Urine NEGATIVE LAB PROTU(LOIN Negative mg/dL C) Protein Urine NEGATIVE LAB NITRI(LOIN Negative C) Nitrites Urine NEGATIVE LAB BILIU(LOIN Negative C) Bilirubin Urine NEGATIVE LAB SPG(LOINC) 1.005-1.030 Specific [place], Ur 1.018 LAB PHUR(LOINC 5.0-8.0 ) pH,Urine 6.0 LAB UROBI(LOIN 0.0-1.0 EU/dL C) Urobilinogen,Ur 0.2 LAB LEUKO(LOIN Negative C) Leukocytes NEGATIVE Esterase LAB RBCU1(LOIN 0.0-5.0 /hpf C) RBC,Urine 0.8 LAB WBCU1(LOIN 0.0-5.0 /hpf C) WBC, Urine 0.3 LAB EPIT1(LOIN 0.0-5.0 /hpf C) Ep Cells Urine 0.1 LAB BACT1(LOIN None C) Bacteria Urine NONE LAB HYCA1(LOIN 0.0-1.0 /lpf C) Hyaline Cast 0.0 Performed By: #### URIN2 #### [place] [address] Observed: 03/25/2018 Status: F Source: [facility] URINE 3:00 PM HEALTH SYSTEM REPOSITORY Test performed at [facility] No growth Performed By: #### C_URI #### [place] [address] PROGRESS Observed: 03/25/2018 Status: COMPLETED Source: [place] 11:38 AM CLINIC OTHER CAMPUS REPOSITORY HNO ID: [id number] Author: Li Winston (Pa) Service: (none) Author Type: Physician Filler Machine Operator Type: Progress Notes Filed: 03/25/2018 12:55 PM Note Text: ESTABLISHED PATIENT OFFICE VISIT HISTORY OF PRESENT ILLNESS: Attila Del Cid is a 48 year old male, Ht 180.3 cm (5' 11) BMI 32.08 kg/m2 with a PMH significant for right flank pain x several days. Pt with h/o kidney stones. Pt went to [facility] for right flank pain, imaging done, not on epic. pt has some nausea with pain. Pain is intermittent, pressure like. Pt denies fever, chills, hematuria. . LAB: Creatinine Date Value Ref Range Status 04/12/2017 0.78 0.67 - 1.17 mg/dL Final PSA (ng/mL) Date Value 11/21/2016 1.33 Glucose, Urine (mg/dL) Date Value 03/25/2018 neg Bilirubin, Urine (no units) Date Value 03/25/2018 neg Ketones, Urine (no units) Date Value 03/25/2018 neg Specific [place], Ur (no units) Date Value 03/25/2018 1.020 Hemoglobin/Blood,Ur (no units) Date Value 03/25/2018 small pH, Urine (no units) Date Value 03/25/2018 6.0 Protein, Urine (mg/dL) Date Value 03/25/2018 neg Urobilinogen, Urine (EU) Date Value 03/25/2018 0.2 Nitrites (no units) Date Value 03/25/2018 neg Leukocytes (no units) Date Value 03/25/2018 neg Color/Appearance (comment:) Date Value 03/25/2018 yellow/cloudy MEDICATIONS: tamsulosin ER (FLOMAX) 0.4 mg cp24 every day acetaminophen 325 mg-caffeine 40 mg-butalbital 50 mg (FIORICET) per tablet gabapentin (NEURONTIN) 300 mg capsule oxyCODONE-acetaminophen (PERCOCET) 5-325 mg tablet apixaban (ELIQUIS) 5 mg tab tab(s) Take by mouth twice daily. sertraline (ZOLOFT) 100 mg tablet 200 mg. carvedilol (COREG) 25 mg tablet Take 1 tablet by mouth twice daily with meals. busPIRone HCl 7.5 mg tablet Take 7.5 mg by mouth twice daily. (RX given Sept and has 2 more refills) meclizine (ANTIVERT) 12.5 mg tab Take 2 tablets by mouth twice daily as needed. lisinopril (ZESTRIL, PRINIVIL) 20 mg tablet Take 1 tablet by mouth once daily. rOPINIRole (REQUIP) 1 mg tablet Take 1 tablet by mouth daily at bedtime. For restless legs pantoprazole DR (PROTONIX) 40 mg tablet Take 1 tablet by mouth once daily. albuterol HFA (PROVENTIL HFA, VENTOLIN HFA) 90 mcg/actuation inhaler Inhale 2 Puffs as instructed every 4 hours as needed. ibuprofen (MOTRIN) 600 mg tablet Take 1 tablet by mouth every 6 hours as needed for Pain or Fever. promethazine (PHENERGAN) 25 mg tablet Take 25 mg by mouth every 6 hours as needed. Review of Systems Constitutional: Negative for chills, fatigue and fever. Respiratory: Negative for shortness of breath and wheezing. Gastrointestinal: Negative for abdominal pain, constipation, diarrhea and nausea. Genitourinary: See HPI Neurological: Negative for dizziness, light-headedness and headaches. Psychiatric/Behavioral: Negative for behavioral problems. The patient is not nervous/anxious. HISTORIES PAST MEDICAL HISTORY Diagnosis Date - Aortic aneurysm (HCC) - Arthritis - Atrial fibrillation (HCC) - Calculi, ureter - Calculus of kidney - Hematuria - Hypertension - Pneumonia - Psychiatric disorder anxiety FAMILY HISTORY Problem Relation Age of Onset - Diabetes Mother - Colon Cancer Mother - Diabetes Sister - Skin Cancer Father Social History Substance Use Topics - Smoking status: Never Smoker - Smokeless tobacco: Never Used - Alcohol use No PHYSICAL EXAMINATION GENERAL APPEARANCE: Well appearing, alert, in no acute distress, well-hydrated, well nourished. PHYSICAL EXAM: Back:positive cva tenderness on right, left was negative for cva tenderness. ASSESSMENT/PLAN: 1. Urinary tract infection without hematuria, site unspecified - ICD9: 599.0, ICD10: N39.0 (primary diagnosis) Rule out - UA DIP B/O 2. Kidney stone - ICD9: 592.0, ICD10: N20.0 - URINE CULTURE - URINALYSIS WITH MICROSCOPIC Get imaging from [facility] 3. Acute right flank pain - ICD9: 789.09, 338.19, ICD10: R10.9 - Continue tamsulosin Doxycycline Follow up with dr. Perez after reviewing imaging. KEYLA Duarte Observed: 03/25/2018 Status: COMPLETED Source: [facility] 11:30 AM CLINIC OTHER CAMPUS REPOSITORY Office Visit (AKURFL) ATTILA DEL CID ([id number]) 1970 M [facility] Date Time Provider Department 03/25/18 11:30 AM LI WINSTON (PA) During your visit today, we recorded the following information about you: Blood pressure Weight Height 130/94 104.3 kg 1.803 m Li Winston PA-C 03/25/2018 12:55 PM Signed ESTABLISHED PATIENT OFFICE VISIT HISTORY OF PRESENT ILLNESS: Attila Del Cid is a 48 year old male, Ht 180.3 cm (5' 11) BMI 32.08 kg/m2 with a PMH significant for right flank pain x several days. Pt with h/o kidney stones. Pt went to [facility] for right flank pain, imaging done, not on epic. pt has some nausea with pain. Pain is intermittent, pressure like. Pt denies fever, chills, hematuria. . LAB: Creatinine Date Value Ref Range Status 04/12/2017 0.78 0.67 - 1.17 mg/dL Final PSA (ng/mL) Date Value 11/21/2016 1.33 Glucose, Urine (mg/dL) Date Value 03/25/2018 neg Bilirubin, Urine (no units) Date Value 03/25/2018 neg Ketones, Urine (no units) Date Value 03/25/2018 neg Specific [place], Ur (no units) Date Value 03/25/2018 1.020 Hemoglobin/Blood,Ur (no units) Date Value 03/25/2018 small pH, Urine (no units) Date Value 03/25/2018 6.0 Protein, Urine (mg/dL) Date Value 03/25/2018 neg Urobilinogen, Urine (EU) Date Value 03/25/2018 0.2 Nitrites (no units) Date Value 03/25/2018 neg Leukocytes (no units) Date Value 03/25/2018 neg Color/Appearance (comment:) Date Value 03/25/2018 yellow/cloudy MEDICATIONS: tamsulosin ER (FLOMAX) 0.4 mg cp24 every day acetaminophen 325 mg-caffeine 40 mg-butalbital 50 mg (FIORICET) per tablet gabapentin (NEURONTIN) 300 mg capsule oxyCODONE-acetaminophen (PERCOCET) 5-325 mg tablet apixaban (ELIQUIS) 5 mg tab tab(s) Take by mouth twice daily. sertraline (ZOLOFT) 100 mg tablet 200 mg. carvedilol (COREG) 25 mg tablet Take 1 tablet by mouth twice daily with meals. busPIRone HCl 7.5 mg tablet Take 7.5 mg by mouth twice daily. (RX given Sept and has 2 more refills) meclizine (ANTIVERT) 12.5 mg tab Take 2 tablets by mouth twice daily as needed. lisinopril (ZESTRIL, PRINIVIL) 20 mg tablet Take 1 tablet by mouth once daily. rOPINIRole (REQUIP) 1 mg tablet Take 1 tablet by mouth daily at bedtime. For restless legs pantoprazole DR (PROTONIX) 40 mg tablet Take 1 tablet by mouth once daily. albuterol HFA (PROVENTIL HFA, VENTOLIN HFA) 90 mcg/actuation inhaler Inhale 2 Puffs as instructed every 4 hours as needed. ibuprofen (MOTRIN) 600 mg tablet Take 1 tablet by mouth every 6 hours as needed for Pain or Fever. promethazine (PHENERGAN) 25 mg tablet Take 25 mg by mouth every 6 hours as needed. Review of Systems Constitutional: Negative for chills, fatigue and fever. Respiratory: Negative for shortness of breath and wheezing. Gastrointestinal: Negative for abdominal pain, constipation, diarrhea and nausea. Genitourinary: See HPI Neurological: Negative for dizziness, light-headedness and headaches. Psychiatric/Behavioral: Negative for behavioral problems. The patient is not nervous/anxious. HISTORIES PAST MEDICAL HISTORY Diagnosis Date - Aortic aneurysm (HCC) - Arthritis - Atrial fibrillation (HCC) - Calculi, ureter - Calculus of kidney - Hematuria - Hypertension - Pneumonia - Psychiatric disorder anxiety FAMILY HISTORY Problem Relation Age of Onset - Diabetes Mother - Colon Cancer Mother - Diabetes Sister - Skin Cancer Father Social History Substance Use Topics - Smoking status: Never Smoker - Smokeless tobacco: Never Used - Alcohol use No PHYSICAL EXAMINATION GENERAL APPEARANCE: Well appearing, alert, in no acute distress, well-hydrated, well nourished. PHYSICAL EXAM: Back:positive cva tenderness on right, left was negative for cva tenderness. ASSESSMENT/PLAN: 1. Urinary tract infection without hematuria, site unspecified - ICD9: 599.0, ICD10: N39.0 (primary diagnosis) Rule out - UA DIP B/O 2. Kidney stone - ICD9: 592.0, ICD10: N20.0 - URINE CULTURE - URINALYSIS WITH MICROSCOPIC Get imaging from [facility] 3. Acute right flank pain - ICD9: 789.09, 338.19, ICD10: R10.9 - Continue tamsulosin Doxycycline Follow up with dr. Perez after reviewing imaging. Li Winston PA-C Referring Provider: VANESSA GONAZLEZ [[id number]] Allergies As of Date: 03/25/2018 Noted Allergy Reaction CELEBREX (CELECOXIB) 07/17/2016 11 - Vomiting Comments: Nausea CLONIDINE 07/17/2016 2 - Rash FENTANYL 07/17/2016 8 - GI Upset LEVOFLOXACIN 04/13/2017 2 - Rash Comments: pt reports to [facility] PT 6-24-2017 PENICILLIN G 12/30/2013 2 - Rash RELPAX (ELETRIPTAN HBR) 07/17/2016 11 - Vomiting Comments: Nausea TOPAMAX (TOPIRAMATE) 07/17/2016 11 - Vomiting VICODIN (HYDROCODONE-ACETAMINOPHE*12/30/2013 11 - Vomiting WELLBUTRIN (BUPROPION HCL) 07/17/2016 11 - Vomiting Comments: Nausea Date Reviewed: 03/25/2018 Reviewed by: Li Winston (Pa) - Fully Assessed Reason for Visit: Flank Pain [356] Primary Visit Diagnosis:Urinary tract infection without hematuria, site unspecified [N39.0] Other Visit Diagnoses:Kidney stone [N20.0] Kidney stones [N20.0] Acute right flank pain [R10.9] Order(s):UA DIP B/O [7499356] Order #: [id number] URINE CULTURE [SQURCUL] Order #: [id number] URINALYSIS WITH MICROSCOPIC [SQUAWMIC] Order #: [id number] FUTURE doxycycline monohydrate (MONODOX) 100 mg capsuleTake 1 capsule by mouth twice daily for 7 days.Disp: 14 capsuleRfl: 0 Prescriptions as of 03/25/2018 Sig: TAMSULOSIN 0.4 MG CAPSULE every day DOXYCYCLINE MONOHYDRATE 100 M* Take 1 capsule by mouth twice* BPVSTYRNIX-IDVODWNSDLSAF-OJYC* GABAPENTIN 300 MG CAPSULE OXYCODONE-ACETAMINOPHEN 5 MG-* APIXABAN 5 MG TABLET Take by mouth twice daily. SERTRALINE 100 MG TABLET 200 mg. CARVEDILOL 25 MG TABLET Take 1 tablet by mouth twice * BUSPIRONE 7.5 MG TABLET Take 7.5 mg by mouth twice da* MECLIZINE 12.5 MG TABLET Take 2 tablets by mouth twice* LISINOPRIL 20 MG TABLET Take 1 tablet by mouth once d* ROPINIROLE 1 MG TABLET Take 1 tablet by mouth daily * PANTOPRAZOLE 40 MG TABLET,DEL* Take 1 tablet by mouth once d* ALBUTEROL SULFATE HFA 90 MCG/* Inhale 2 Puffs as instructed * IBUPROFEN 600 MG TABLET Take 1 tablet by mouth every * PROMETHAZINE 25 MG TABLET Take 25 mg by mouth every 6 h* Medication notes this encounter SERTRALINE 100 MG TABLET >> Li Winston PA-C 03/25/2018 11:46 AM >> LI WINSTON Mar 25, 2018 11:46 AM PROMETHAZINE 25 MG TABLET >> Li Winston PA-C 03/25/2018 11:46 AM >> LI WINSTON Mar 25, 2018 11:46 AM Problem List As Of Date 03/25/2018 Noted Resolved Primary osteoarthritis of right knee [M17.11] INVALID FOR* Chest pain at rest [R07.9] INVALID FOR* HTN (hypertension) [I10] INVALID FOR* Atrial fibrillation (HCC) [I48.91] INVALID FOR* More... Atypical chest pain [R07.89] INVALID FOR* Patellofemoral instability of right knee with p*INVALID FOR* Kidney stones [N20.0] INVALID FOR* Acute right flank pain [R10.9] INVALID FOR* Prescriptions ordered this encounter Disp Refills Start End DOXYCYCLINE MONOHYDRATE 100 MG CAPSU* 14 c* 0 03/25/2018 04/01/2018 Route: ORAL Sig: Take 1 capsule by mouth twice daily for 7 days. Disposition: Return in about 1 week (around 04/01/2018) for kidney stones. Follow-up and Disposition History Recorded Encounter Status:Closed by LI WINSTON on 03/25/18 EMERGENCY DEPARTMENT Observed: 03/22/2018 Status: F Source: [place] SUMMARY 3:00 AM [facility] REPOSIT[facility] Medical Records Department [address] [place] [address] Emergency Department Summary 03/21/18 2236 MR#: [id number] Acct: [id number] Name: ATTILA DEL CID Rep #: [id number] : 1970 48 From: Bolivar Nice PCP: Nyla Bearden MD Status: DEP ER - ER Visit Summary Date of Service: 03/21/18 Chief Complaint: Abdominal pain, flank pain History of Present Illness: The patient is a 48 M presents with increasing upper abdominal and flank pain since this morning. Nausea vomiting 1. No hematemesis. States has dysuria. Similar symptoms when he had kidney stone in the past. He states one needed to be removed a year ago, followed by Dr. Perez. Pain is 9 out of 10. Use Tylenol 10 AM this morning.patient is on Eliquis for history of paroxysmal atrial fibrillation. Patient is discharged yesterday for chest pain symptoms. Denies any current chest pains. Physical Examination: General: Alert and oriented 3, mild distress HEENT: Normocephalic, atraumatic. Moist mucosa membranes Neck: supple, nontender. Cardiovascular: Regular rate and rhythm, no murmurs Respiratory: Normal breath sounds, symmetric, no distress Abdomen: Soft, nontender, nondistended, negative Mckee's or McBurney's tenderness. Back: No CVA tenderness Extremities: Nontender, no edema, pulses intact 4 Neuro: no focal neurological deficits. Test Results: CBC, BMP normal. Lipase 196. Liver enzymes normal. UA normal. No hematuria. CT flank with no acute process. Renal stones with no urolithiasis. Emergency Department Course and Treatment: Patient states pain is 9 out of 10. History of nephrolithiasis. Is concerned due to bilateral symptoms. Abdominal labs are negative UA was negative. Flank CT obtain reports noting similar renal stones from the past. There is no urolithiasis. Discussed with patient these do not cause pain unless they moved down. Patient will follow up with his urologist as scheduled in the upcoming week for discussion for further management. He will use Tylenol in the meantime. All questions were answered. Treatment Plan: [] Disposition: Discharge Impression: Flank pain unknown etiology This note was generated with [employer]ation software. It may contain incorrect words, spelling, and punctuation that were not noted in review of the chart prior to signing ED Disposition - Plan for ED Patient: Disposition: Home or Assisted Living Chief Complaint: Complaint Diagnosis: Flank pain Instructions: ED Flank Pain Uncertain Cause Referrals: Nyla Bearden MD [Primary Care Provider] - Additional Instructions: Follow with Dr. Perez as scheduled next week. Use Tylenol as needed for pain. What to do if you have Problems For any increased pain, shortness of breath, bleeding, nausea or vomiting, chest pain, or any unexpected problems, contact your Primary Care Provider. Call [facility] ([phone]) or report to the closest Emergency Room. Call 911 if necessary. 03/22/18 0300 <Electronically signed by Bolivar Nice> Date Bolivar Nice Cosigner Signature (If Indicated): Date CC: Nyla Bearden MD ABDOMEN/PELVIS WITHOUT Observed: 03/21/2018 Status: F Source: [place] CONT 11:40 PM [facility] REPOSITORY [facility] Imaging Services [address] [address] Abdomen/Pelvis without Cont MR#: [id number] Acct: [id number] Name: ATTILA DEL CID Rep #: [id number] : 1970 M 48 From: Diana Baptiste MD PCP: Nyla Bearden MD Status: REG ER Study: Abdomen/Pelvis without Cont Date of Exam: 03/21/18 Exam# [id number] Ordering Dr: Bolivar Fonseca DO STUDY: CT ABDOMEN AND PELVIS WITHOUT CONTRAST REASON FOR EXAM: Male, 48 years old. Flank pain RADIATION DOSAGE (If Supplied By Facility): CTDIvol = ( 13.00 ) mGy, DLP = ( 1092.36 ) mGycm TECHNIQUE: Transaxial images were obtained from the lower chest to the upper thighs without oral contrast, and without intravenous contrast. Sagittal and coronal images were reconstructed. Individualized dose optimization techniques were used for this CT. COMPARISON: February 16, 2018 FINDINGS: There is minimal dependent atelectasis in both lung bases. There is no pleural effusion. The heart is normal in size. The liver is unremarkable. The gallbladder and biliary ducts are unremarkable. The spleen is unremarkable. The pancreas is unremarkable. The adrenal glands are unremarkable. There is a 3 mm calcification in the midpole of the right kidney. There are approximately five calcifications in the lower pole of the right kidney with the largest measuring almost 5 mm in size. There is no dilatation of the collecting system in the right kidney. The left kidney is unremarkable. There is no dilatation of the collecting system in the left kidney. The stomach is unremarkable. The small bowel is unremarkable. The colon is unremarkable. The appendix is visualized and appears normal. There are minimal scattered vascular calcifications. The IVC is unremarkable. The retroperitoneum is unremarkable. There is no free fluid in the abdomen. The urinary bladder is unremarkable. The prostate is normal in size with coarse calcifications. There are small phleboliths scattered in the lower pelvis. The soft tissues are unremarkable. There are mild degenerative changes in the visualized spine. There are surgical changes in the lower lumbar spine. CT/Abdomen/Pelvis without Cont IMPRESSION: Calyceal stones are again seen in the right kidney. At least six are seen in the mid and lower poles. The largest measures almost 5 mm in size. There is no dilatation of the collecting system on the right side. No stones are seen on the left and there is no dilatation of the collecting system on the left side. There are no acute bowel abnormalities. There is no ascites, free air, inflammation or significant lymphadenopathy. Electronically Signed: Diana Baptiste MD at 1:15 EDT Tel Direct: [phone], Service support , CC: Nyla Bearden MD; Bolivar Fonseca 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: Signed URINALYSIS, COMPLETE Collected: 03/21/2018 Status: F Source: [place] 11:00 PM [facility] REPOSITORY Order Comment: How was Urine Obtained? CLEAN CATCH TYPE CODE TESTS RESULT OUT OF RANGE REFERENCE UNITS LAB L400.3000 Yellow COLOR Normal Yellow LAB L400.3050 Clear Normal CLARITY Sl. Cloudy LAB L400.3200 Normal mg/dl Normal GLUCOSE, UR Normal LAB L400.3300 Negative mg/dL Normal BILIRUBIN URINE Negative LAB L400.3400 Negative mg/dl Normal KETONE UR Negative LAB L400.3465 1.002-1.030 Normal SP.GR. DIPSTX 1.010 LAB L400.3550 5.0 - 8.0 pH UR Normal 7.0 LAB L400.3600 Negative mg/dl PROT Normal DIPSTX Negative LAB L400.3700 Normal mg/dl Normal UROBILI Normal LAB L400.3750 Negative Normal NITRITE UR Negative LAB L400.3780 Negative /ul Normal OCCULT BLOOD-UR Negative LAB L400.3800 Negative /ul LEUK Normal ESTERASE Negative LAB L400.4050 0-5 /hpf WBC 0 Normal SEEN LAB L400.4100 0-5 /hpf 0 Normal RBC-UA SEEN LAB L400.4150 0-5 /hpf SQUAM Normal EPI 0-5 SEEN LAB L400.4300 None Seen /hpf 0 Normal BACTERIA SEEN LAB L400.4350 <or=2+ /hpf 0 Normal MUCUS, URINE SEEN Performed By: #### L400.0001 #### [facility] [address] [place], [address] CBC W/DIFF, AUTOMATED Collected: 03/21/2018 Status: F Source: [place] 10:50 PM [facility] RE[facility] TYPE CODE TESTS RESULT OUT OF RANGE REFERENCE UNITS LAB L100.1000 4.4-11.0 K/mm3 Normal WBC 10.9 LAB L100.1200 4.6-6.2 M/mm3 Normal RBC 5.51 LAB L100.1300 13.0-16.5 g/dl Normal HGB 14.9 LAB L100.1400 40-54 % Normal HCT 46.2 LAB L100.1500 80-94 fL Normal MCV 83.8 LAB L100.1600 27.0-32.0 pg Normal MCH 27.0 LAB L100.1700 32-36 g/gl Normal MCHC 32.3 LAB L100.1810 11.6-14.6 % High RDW CV 16.3 LAB L100.1820 35.1-43.9 fl High RDW SD 50.2 LAB L100.1900 150-450 K/mm3 Normal PLT 279 LAB L100.2000 6.2-12.0 fl Normal MPV 8.7 LAB L100.2100 47-70 % Normal NEUT% 52.2 LAB L100.2200 19-41 % Normal LY% 35.8 LAB L100.2300 0-10 % High MONO% 10.5 LAB L100.2400 0-5 % Normal EO% 1.1 LAB L100.2500 0-1 % Normal BASO% 0.3 LAB L100.2550 0.0-0.9 % Normal IM GRAN % 0.100 Result Comment: IG% - Immature Granulocytes (promyelocytes, myelocytes and metamyelocytes) > 1% indicates that a LEFT SHIFT is Present. LAB L100.2620 2.0-7.7 X10 3/uL Normal Absolute Neut 5.7 LAB L100.2720 0.83-4.51 X10 3/ul Normal Absolute Lymph 3.88 Performed By: #### L100.0100 #### [facility] [place], [address] BASIC METABOLIC Collected: 03/21/2018 Status: F Source: [place] PROFILE (BMP) 10:50 PM [facility] RE[facility]IT[facility] TYPE CODE TESTS RESULT OUT OF RANGE REFERENCE UNITS LAB L501.0100 74-106 mg/dL Normal GLU 79 Result Comment: Please note revised GLUCOSE reference range effective 2017. LAB L501.1000 7-18 mg/dL Normal BUN 13 LAB L501.1100 0.70-1.30 mg/dL Normal CREAT,SERUM 0.86 Result Comment: The validity of the calculated GFR AND GFRAA in patients over 70 years has not been determined. Clinical correlation is essential. LAB L501.1110 >60 mL/min Normal EST GFR 101 Result Comment: Non- GFR Calc LAB L501.1115 >60 mL/min Normal EST GFR - AA 123 Result Comment: GFR Calc LAB L501.1255 ml/min Normal Estimated CRCL 111.88 LAB L501.1300 10-20 RATIO BUN/CRE Normal 15.2 LAB L501.2200 8.5-10 mg/dL .1 CA Normal 9.4 LAB L501.5300 136-14 mmol/L 5 NA Normal 139 LAB L501.5600 3.5-5. mmol/L 1 K Normal 4.1 LAB L501.5900 98-107 mmol/L CL Normal 105 LAB L501.6100 21.0-3 mmol/L 2.0 CO2 Normal 28.0 LAB L501.6200 5-15 GAP Normal 6 Performed By: #### L500.2500, L500.3400, L501.2450 #### [facility] [address] [place], [place], [address] LIVER PROFILE Collected: 03/21/2018 Status: F Source: [place] 10:50 PM [facility] TYPE CODE TESTS RESULT OUT OF RANGE REFERENCE UNITS LAB L501.1500 6.4-8.2 g/dL Normal T PROT 7.2 LAB L501.1800 3.2-5.0 g/dL Normal ALB 3.6 LAB L501.1950 2.2-4.2 g/dL Normal GLOB 3.6 LAB L501.4100 15-37 U/L Normal AST 20 LAB L501.4305 45-117 U/L Normal ALK P 106 LAB L501.4405 16-61 U/L Normal ALT 37 LAB L501.4600 0.20-1.00 mg/dL Normal T BILI 0.30 LAB L501.4700 0.00-0.30 mg/dL Normal D BILI 0.10 Performed By: #### L500.2500, L500.3400, L501.2450 #### [facility] [address] [place], [address] LIPASE Collected: 03/21/2018 Status: F Source: [place] 10:50 PM [facility] TYPE CODE TESTS RESULT OUT OF RANGE REFERENCE UNITS LAB L501.2450 73-393 U/L Normal LIPASE 196 Performed By: #### L500.2500, L500.3400, L501.2450 #### [facility] [address] [place], [address] ECHO, COMPLETE W/ Observed: 03/20/2018 Status: F Source: [place] CONTRAST 4:39 PM [facility] REPOSITORY [facility] Cardiovascular Services [address] [place] [address] Echo Complete W/ Contrast 03/20/18 1426 MR#: [id number] Acct: [id number] Name: ATTILA DEL CID Rep #: [id number] : 1970 48 From: Attila Oliva MD Attending Dr: Bradly Davis DO Status: DIS FERCHO Ordering Dr: Kandi Wylie Date: 03/20/18 Location: [facility] Sex: M C Admitted: 03/20/18 Reason For Study: AFIB/FLUTTER Procedure This was a 2D Doppler, Color Flow transthoracic echocardiogram. Exam performed portable in patient room. Left Ventricle Normal size and thickness. The estimated ejection fraction is 65 %. Normal diastology for age. No regional wall motion abnormalities noted. Right Ventricle Normal size and thickness. Normal systolic function. Atria Normal left atrium. Normal right atrium. Normal atrial septum. Mitral Valve The mitral valve is structurally normal. No prolapse or stenosis seen. Tricuspid Valve Normal tricuspid valve. Trivial tricuspid valve insufficiency. Right ventricular systolic pressure estimated to be 39 mmHg. Aortic Valve Trisinus/trileaflet aortic valve. Pulmonic Valve Normal pulmonic valve. Great Vessels Normal aortic root. Normal arch. Normal inferior vena cava. Inferior vena cava collapse with sniff. Pericardium/Pleural No pericardial effusion. Medication Diluted definity 3ml given slow IV push to enhance endocardial definition. MMode/2D Measurements AND Calculations LVIDd: 4.5 cm IVSd: 0.97 cm LAV(MOD- bp): 46.6 ml LVIDs: 2.9 cm LVPWd: 1.1 cm LAV(MOD- bp) Indexed: 20.9 ml/m2 RVDd: 3.0 cm FS: 35.9 % LAV(MOD- sp2): 48.9 ml LAV(MOD-sp4): 41.5 ml LA A4 area: 16.9 cm2 RA A4 area: 12.3 cm2 Time Measurements MV dec time: 0.21 sec Doppler Measurements AND Calculations MV E max corine: 72.0 cm/sec Lat Peak E' Corine: 11.1 cm/sec Med Peak E' Corine: 7.8 cm/sec MV A max corine: 71.6 cm/sec E/E' lat: 6.5 E/E' med: 9.2 MV E/A: 1.0 Ao V2 max: 141.6 cm/sec LV V1 max: 97.2 cm/sec TR max corine: 290.9 cm/sec Ao max P.0 mmHg LV V1 max P.8 mmHg TR max P.9 mmHg Interpretation Summary The estimated ejection fraction is 65 %. Normal diastology for age. Trivial tricuspid valve insufficiency. Right ventricular systolic pressure estimated to be 39 mmHg. COmpared to echo report dated 10/15/2017, LV function has remained the same, and RVSP has decreased from 52 to 39 mm Hg. The study was technically difficult. Contrast injection was performed. Ordering Physician: Kandi Wylie Referring Physician: Claribel Batista Performed By: Jennifer Carter RDCS 03/20/18 1639 Date Attila Oliva MD CC: Kandi Wylie; Nyla Bearden MD; Bradly Davis DO Date Dictated: 03/20/18 1426 Date Transcribed: 03/20/18 1639 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: Signed DISCHARGE SUMMARY Observed: 03/20/2018 Status: F Source: [place] 2:25 PM [facility] RE[facility]IT[facility] Medical Records Department [address] [place] [address] Discharge Summary 03/20/18 1345 MR#: [id number] Acct: [id number] Name: ATTILA DEL CID Rep #: [id number] : 1970 48 From: Thiago AGUILERA PCP: Nyla Bearden MD Status: ADM FERCHO Y Location: [facility] [id number] <Thiago Hernández - Last Filed: 03/20/18 13:45> Discharge Date and Diagnosis - Problem List Patient Problems: Active and Suspected Problems (Last Reviewed 02/26/18 @ 11:43 by ERNIE Carrillo) Chest pain (Acute) Date of Admission: 03/20/18 Date of Discharge: 03/20/18 - Primary Discharge Diagnosis Active and Suspected Problems (Last Reviewed 02/26/18 @ 11:43 by ERNIE Carrillo) Chest pain (Acute) - musculoskeletal CAD status post cath October 2016 with no intervention Paroxysmal atrial fibrillation-currently in sinus rhythm, status post recent ablation and cardioversion Hypertension Hyperlipidemia Obesity GERD BPH Stable ascending aortic aneurysm LORETTA - Secondary Discharge Diagnosis Chronic Problems (Last Reviewed 02/26/18 @ 11:43 by ERNIE Carrillo) Obesity (BMI 30.0-34.9) (Chronic) Ascending aorta dilatation (Chronic) SVT (supraventricular tachycardia) (Chronic) [place] (obstructive sleep apnea) (Chronic) Atherosclerotic heart disease of [place] coronary artery without angina pectoris (Chronic) History of left heart catheterization (Chronic) 11/09/2016 @ [facility], per Dr. Shama Harley: normal coronaries Nephrolithiasis (Chronic) HTN (hypertension) (Chronic) Anxiety (Chronic) PAF (paroxysmal atrial fibrillation) (Chronic) Multiple cardioversions, [facility] ablation (2nd). Recent ED presentation 02/24/18 w/ Atrial Fibrillation w/ RVR, successful cardioversion performed. GERD (gastroesophageal reflux disease) (Chronic) Obesity (BMI 30-39.9) (Chronic) BPPV (benign paroxysmal positional vertigo) (Chronic) HLD (hyperlipidemia) (Chronic) Thoracic aortic aneurysm without rupture (Chronic) Hospital Course and Treatment Imaging Results: 03/20/18 05:55 Nuclear Stress Test - Chemical [NM] AM (NON MEDS)-negative for inducible ischemia RAD/Chest 1 View (Portable) IMPRESSION: No active pulmonary disease. Operations: None Procedures: 2-D Echocardiogram, Stress test Summary of Care Provided: Physical exam on day of discharge: General: Resting comfortably NAD Psych: A/Ox3 normal affect HEENT: [place] AT NC Neck: Supple NT CV: RRR no m/t/r/g/h, CP reproducible with palpation. Resp: CTA Abd: [id number] Soft NT no guarding or rigidity Ext: DP2+= no edema Skin: W/D normal turgor Lymph/Heme: No active bleeding or adenopathy Neuro: CN2-12 intact Hospital course: The patient is a 48 year old M with a history of CAD status post cath in October 2016 with no intervention, obesity, paroxysmal atrial fibrillation status post recent ablation and cardioversion, obstructive sleep apnea, hypertension, hyperlipidemia, known ascending aortic aneurysm, and GERD, who presented to the emergency room complaining of midsternal sharp chest pain intermittently for about 2 months, progressively worsening. He had no dyspnea or nausea. He is found to have a negative chest x-ray, negative troponin, no EKG changes. He was admitted to the PCU and placed on cardiac monitoring. Troponin was cycled and remained negative. He had no events on telemetry. He remained in sinus rhythm throughout. He had a recent CTA of the chest for his AAA in January which measured 4.4 cm, and his prior CTA 3 months before that also measured 4.4. The following morning he underwent a stress test which was negative for inducible ischemia. His chest pain was felt to be musculoskeletal due to its nature and ability to reproduce it with palpation. At discharge I advised him to discontinue taking ibuprofen, and that he should use acetaminophen for pain. Ibuprofen is contraindicated with concurrent use of Eliquis. Patient was discharged home in stable condition. I advised him to follow-up with his PCP and with his acid condenser Dr. Stokes. This patient was seen by Thiago Hernández PA-C under the supervision of Doctor Susan. [] Discharge Diet: Low fat/ Low Cholesterol, 2000 mg Sodium Diet Discharge Activity: Return to Normal Activity Home Medications: Medications to take at Discharge Pantoprazole Sodium [Protonix] 40 mg PO DAILY 04/22/16 Carvedilol [Coreg] 25 mg PO BID 01/31/17 Albuterol Inhaler [Ventolin Hfa] 1 - 2 puff INHALATION Q4H PRN PRN #1 inhaler 07/15/17 Apixaban [Eliquis] 5 mg PO BID 09/21/17 lisinopril 40 mg tablet 40 mg PO QDAY #90 tab 10/29/17 atorvastatin 20 mg tablet 20 mg PO QDAY #60 tab 11/11/17 gabapentin 100 mg capsule 100 mg PO QHS #30 cap 01/14/18 meclizine 12.5 mg tablet 12.5 mg PO QODAY PRN #30 tab 01/14/18 tamsulosin 0.4 mg capsule 0.4 mg PO QDAY #90 cap 02/18/18 amlodipine 5 mg tablet 5 mg PO DAILY #90 tab 02/26/18 Colchicine 0.6 mg PO QDAY 03/20/18 Furosemide 40 mg PO QDAY 03/20/18 Venlafaxine HCl [Venlafaxine HCl ER] 150 mg PO QDAY 05/31/18 Primary Care Physician: Nyla Bearden MD [Primary Care Provider] - Please follow up with your Primary Care Physician in: 1-2 weeks Please Follow Up With: Jesse Stokes MD When: 2 weeks Disposition: Home Minutes spent on discharge:: 35 Patient Condition:: Stable Medical Necessity - Tobacco Use Smoking Status: Never smoker Tobacco Use: Non-smoker Meaningful Use Info Meaningful Use Diagnoses (Choose all that apply): None applicable <Bradly Davis - Last Filed: 03/20/18 14:24> Discharge Date and Diagnosis Date of Admission: 03/20/18 Date of Discharge: 03/20/18 - Primary Discharge Diagnosis Active and Suspected Problems (Last Reviewed 02/26/18 @ 11:43 by ERNIE Carrillo) Chest pain (Acute) - Secondary Discharge Diagnosis Chronic Problems (Last Reviewed 02/26/18 @ 11:43 by ERNIE Carrillo) Obesity (BMI 30.0-34.9) (Chronic) Ascending aorta dilatation (Chronic) SVT (supraventricular tachycardia) (Chronic) LORETTA (obstructive sleep apnea) (Chronic) Atherosclerotic heart disease of [place] coronary artery without angina pectoris (Chronic) History of left heart catheterization (Chronic) 11/09/2016 @ [facility], per Dr. Shama Harley: normal coronaries Nephrolithiasis (Chronic) HTN (hypertension) (Chronic) Anxiety (Chronic) PAF (paroxysmal atrial fibrillation) (Chronic) Multiple cardioversions, [facility] ablation (2nd). Recent ED presentation 02/24/18 w/ Atrial Fibrillation w/ RVR, successful cardioversion performed. GERD (gastroesophageal reflux disease) (Chronic) Obesity (BMI 30-39.9) (Chronic) BPPV (benign paroxysmal positional vertigo) (Chronic) HLD (hyperlipidemia) (Chronic) Thoracic aortic aneurysm without rupture (Chronic) Hospital Course and Treatment Imaging Results: 03/20/18 05:55 Nuclear Stress Test - Chemical [NM] AM (NON MEDS) Operations: None Procedures: 2-D Echocardiogram, Stress test Summary of Care Provided: In and examined independently. Agree with the above note by the nurse practitioner. The patient is a 48 year old M is with chest pain. Said it was worse with cough and deep respirations. Patient underwent stress test today that was negative. Patient on my physical exam did have some reproducible anterior chest wall tenderness and was some prominence of some of his anterior ribs which were tender to palpation. I feel that the patient's chest pain was a muscular skeletal in etiology and does not warrant further workup at this time. Patient is discharged home in stable condition. [] Discharge Diet: Low fat/ Low Cholesterol, 2000 mg Sodium Diet Discharge Activity: Return to Normal Activity Disposition: Home Patient Condition:: Stable Medical Necessity - Tobacco Use Smoking Status: Never smoker Tobacco Use: Non-smoker Meaningful Use Info Meaningful Use Diagnoses (Choose all that apply): None applicable Code Visit OBSV E AND M: 56000 Observation care discharge 03/20/18 1352 <Electronically signed by Thiago AGUILERA> Date Thiago AGUILERA 03/20/18 1425<Electronically signed by Bradly Davis DO> Cosigner Signature (if applicable): Date Bradly Davis DO CC: ALE Hernández; Nyla Bearden MD; Bradly Davis DO Signed DISCHARGE INSTRUCTION Observed: 03/20/2018 Status: F Source: [place] 1:45 PM [facility] REPOSIT[facility] Medical Records Department [address] [place] [address] Instructions for Home/Discharge Instructions 03/20/18 1343 MR#: [id number] Acct: [id number] Name: ATTILA DEL CID Rep #: [id number] : 1970 48 From: Thiago AGUILERA PCP: Nyla Bearden MD Status: ADM FERCHO - Discharge Diagnoses Current Active Problems: Current Active and Chronic Problems (Last Reviewed 02/26/18 @ 11:43 by Tawanda Colon NP-Tate) Obesity (BMI 30.0-34.9) (Chronic) Chest pain (Acute) You will use the following diet at home:: Cardiac - <2000 mg sodium daily, low cholesterol, low fat Your food should be the consistency of: Regular Your liquids should be the consistency of: Regular/Thin Discharge Activity: Return to Normal Activity Allergies/Adverse Reactions: Allergies clonidine Allergy (Intermediate, Verified 02/26/18 10:12) rash levofloxacin [From Levaquin] Allergy (Verified 02/26/18 10:12) Rash Penicillins Allergy (Verified 02/26/18 10:12) Hives bupropion Adverse Reaction (Intermediate, Verified 02/26/18 10:12) vomiting celecoxib [From Celebrex] Adverse Reaction (Intermediate, Verified 02/26/18 10:12) vomiting eletriptan Adverse Reaction (Intermediate, Verified 02/26/18 10:12) Vomiting topiramate [From Topamax] Adverse Reaction (Intermediate, Verified 02/26/18 10:12) vomiting fentanyl Adverse Reaction (Unknown, Verified 02/26/18 10:12) unknown hydrocodone bitartrate [From Vicodin] Adverse Reaction (Verified 02/26/18 10:12) Nausea Medications to take at Discharge Pantoprazole Sodium [Protonix] 40 mg PO DAILY 04/22/16 Carvedilol [Coreg] 25 mg PO BID 01/31/17 Albuterol Inhaler [Ventolin Hfa] 1 - 2 puff INHALATION Q4H PRN PRN #1 inhaler 07/15/17 Apixaban [Eliquis] 5 mg PO BID 09/21/17 lisinopril 40 mg tablet 40 mg PO QDAY #90 tab 10/29/17 atorvastatin 20 mg tablet 20 mg PO QDAY #60 tab 11/11/17 gabapentin 100 mg capsule 100 mg PO QHS #30 cap 01/14/18 meclizine 12.5 mg tablet 12.5 mg PO QODAY PRN #30 tab 01/14/18 tamsulosin 0.4 mg capsule 0.4 mg PO QDAY #90 cap 02/18/18 amlodipine 5 mg tablet 5 mg PO DAILY #90 tab 02/26/18 Colchicine 0.6 mg PO QDAY 03/20/18 Furosemide 40 mg PO QDAY 03/20/18 Venlafaxine HCl [Venlafaxine HCl ER] 150 mg PO QDAY 03/20/18 Primary Care Physician: Nyla Bearden MD [Primary Care Provider] - Please follow up with your Primary Care Physician in: 1-2 weeks Please Follow Up With: Jesse Stokes MD When: 2 weeks Proposed Discharge Date: 03/20/18 03/20/18 1345 <Electronically signed by Thiago AGUILERA> Date Thiago AGUILERA CC: Nyla Bearden MD STRESS REPORT Observed: 03/20/2018 Status: F Source: [place] 1:16 PM [facility] Cardiovascular Services [address] [place] [address] MR#: [id number] Acct: [id number] Name: ATTILA DEL CID Rep #: [id number] : 1970 48 From: Asael Hale MD Primary Care: Nyla Bearden MD Status: ADM FERCHO Ordering Dr: Sex: Simon Ybarra Stress Test Report Date: 03/20/2018 Procedure: Pharmacologic stress nuclear imaging study Indications: Chest pain Consent: Per the patient Procedure: The patient underwent pharmacologic (Regadenoson) evaluation with a peak heart rate of 94 beats per minute (54 predicted maximal heart rate) and a peak blood pressure of 142/98 mmHg. The baseline ECG demonstrated sinus rhythm. The peak pharmacologic ECG demonstrated no obvious ECG changes. There were no cardiac dysrhythmias pretest, during pharmacologic infusion, or recovery. There was no complaint of chest discomfort during pharmacologic infusion or recovery. The examination was discontinued secondary to completion of protocol. Impression: 1. Pharmacologic (Regadenoson) evaluation 2. Peak pharmacologic ECG with no obvious ECG changes. 3. No cardiac dysrhythmias pretest, during pharmacologic infusion, or recovery 4. Nuclear images pending Myocardial perfusion imaging study: Technique: The patient was injected with 14.7 millicuries of technetium 99m Cardiolite and subsequently rest SPECT Cardiolite nuclear imaging was obtained in the horizontal long, vertical long, and short axis views. The patient underwent pharmacologic (Regadenoson) evaluation with a peak heart rate of 94 beats per minute (54 % percent predicted maximal heart rate) and a peak blood pressure of 142/98 mmHg. The patient was injected with 45 millicuries of technetium 99m Cardiolite and subsequently stress SPECT Cardiolite nuclear imaging was obtained in the horizontal long, vertical long, and short axis views. A gated Cardiolite study at peak stress was obtained. Interpretation: Rest and stress SPECT Cardiolite nuclear imaging status post realignment, normalization, and attenuation correction demonstrate relative uniform tracer uptake and myocardial perfusion appearing within normal limits. There is end systolic thickening and brightening. The gated Cardiolite study demonstrates myocardial thickening and inward wall motion. The reported LVEF is 81 %. Impression: 1. Rest and stress SPECT Cardiolite nuclear imaging demonstrate relative uniform tracer uptake and myocardial perfusion appearing within normal limits. 2. The gated Cardiolite study reports an LVEF of 81 %. This note was generated with [employer]ation software. It may contain incorrect words, spelling, and punctuation that were not noted in checking the note before signing. 03/20/18 1316 <Electronically signed by Asael Hale MD> Date Asael Hale MD CC: Nyla Bearden MD; Bradly Davis DO Date Dictated: 03/20/18 1311 Date Transcribed: 03/20/181310 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: PM Signed TROPONIN-I Collected: 03/20/2018 Status: F Source: [place] 8:30 AM [facility] REPOSITORY Order Comment: 'TROP' Serial specimen #1, #2 or #3: 3 TYPE CODE TESTS RESULT OUT OF RANGE REFERENCE UNITS LAB L501.4010 <0.045 ng/mL Normal < 0.015 TROPONIN-I Result Comment: TROPONIN-I EXPECTED VALUES <0.045 Negative 0.045 - 0.590 Consistent with Cardiac Damage > OR = 0.600 Critical Value Not every elevated troponin is indicative of MA. These values should be used with clinical judgement in examining the patient's clinical picture for diagnosis. To establish a diagnosis of MA versus myocardial injury, there must be a demonstrated rise and/or fall in the troponin values, in addition to ischemic symptoms, EKG changes, new regional wall motion abnormality, and/or angiographical evidence. PLEASE NOTE: REFERENCE RANGES EDITED 18 Performed By: #### L501.4010 #### [facility] [address] [place], [address] EMERGENCY DEPARTMENT Observed: 03/20/2018 Status: F Source: [place] SUMMARY 7:13 AM [facility] RE[facility] Medical Records Department [address] [place] [address] Emergency Department Summary 03/20/18 0326 MR#: [id number] Acct: [id number] Name: ATTILA DEL CID Rep #: [id number] : 1970 48 From: Maryjo Woods PCP: Nyla Bearden MD Status: ADM FERCHO - ER Visit Summary Date of Service: 03/20/18 Chief Complaint: [Chest pain] History of Present Illness: The patient is a 48 M [who presents the emergency department with chest pain. It started a couple of days ago was intermittent with exertion or with going up steps. Was more persistent at 11 PM this evening. Associated with shortness of breath. Associated with nausea. It radiates to his left shoulder. He had a cath one year ago that showed minimal disease. He has had an MA. No stents. He has a history of high blood pressure. He sees Dr. Stokes. He states the pain is an 8 out of 10 substernal pressure. He does have a history of a 5 cm ascending aortic aneurysm. He denies any radiation of the pain to the back. He has had multiple CTAs in the past.] Physical Examination: [] Blood pressure 161/113 other vitals within normal limits WN WD NAD PERRL EOMI MMM NECK supple and nontender, no masses RRR no murmur rub or gallop, no peripheral edema, symmetric radial pulses CTAB no respiratory distress ABDOMEN is soft and nontender, normal bowel sounds, no distension, no rebound or guarding SKIN is warm and dry no rashes Alert and Oriented x3, CN II-XII in tact, no motor or sensory deficits, gait normal No lymphadenopathy Test Results: [EKG is sinus at a rate of 75 with no acute ischemic changes unchanged from previous EKG on February 24, 2018] Emergency Department Course and Treatment: [Patient was given aspirin and nitroglycerin. His pain did not improve. Screening labs were unremarkable for acute process. Chest x-ray showed chronic widening of the mediastinum. Patient got nauseated and was given antiemetics. He continued to complain of pain and was given for morphine. Last cath was a year ago and showed minimal disease. He has had multiple CTAs in the past all of which have shown stable ascending aortic aneurysm. At this time not re- CTA him. He will be admitted for observation.] Treatment Plan: [] Disposition: [Admit] Impression: Chest pain [] This note was generated with [employer] dictation software. It may contain incorrect words, spelling, and punctuation that were not noted in review of the chart prior to signing ED Disposition - Plan for ED Patient: Disposition: Acute Care Hospital [facility] Chief Complaint: Chest Pain What to do if you have Problems For any increased pain, shortness of breath, bleeding, nausea or vomiting, chest pain, or any unexpected problems, contact your Primary Care Provider. Call [facility] ([phone]) or report to the closest Emergency Room. Call 911 if necessary. 03/20/18 0713 <Electronically signed by Maryjo Woods > Date Maryjo Woods Cosigner Signature (If Indicated): Date CC: Nyla Bearden MD PROTHROMBIN TIME W/INR Collected: 03/20/2018 Status: F Source: [place] 6:00 AM [facility] TYPE CODE TESTS RESULT OUT OF RANGE REFERENCE UNITS LAB L300.4150 11.7-14.9 SECONDS Normal PROTIME 12.2 LAB L300.4200 Normal INR 0.9 Performed By: #### L300.3900, L300.4310 #### [facility] [address] [place], [address] PARTIAL THROMBOPLAST Collected: 03/20/2018 Status: F Source: [place] TIME 6:00 AM [facility] TYPE CODE TESTS RESULT OUT OF RANGE REFERENCE UNITS LAB L300.4310 24.1-36.2 Seconds Normal PTT 26.6 Performed By: #### L300.3900, L300.4310 #### [facility] [address] [place], [place], [address] CBC-COMPLETE BLOOD CNT Collected: 03/20/2018 Status: F Source: [place] NO DIFF 4:52 AM [facility] TYPE CODE TESTS RESULT OUT OF RANGE REFERENCE UNITS LAB L100.1000 4.4-11.0 K/mm3 Normal WBC 5.7 LAB L100.1200 4.6-6.2 M/mm3 Normal RBC 4.77 LAB L100.1300 13.0-16.5 g/dl Low HGB 12.6 LAB L100.1400 40-54 % Low HCT 39.4 LAB L100.1500 80-94 fL Normal MCV 82.6 LAB L100.1600 27.0-32.0 pg Low MCH 26.4 LAB L100.1700 32-36 g/gl Normal MCHC 32.0 LAB L100.1810 11.6-14.6 % High RDW CV 16.3 LAB L100.1820 35.1-43.9 fl High RDW SD 49.8 LAB L100.1900 150-450 K/mm3 Normal PLT 213 LAB L100.2000 6.2-12.0 fl Normal MPV 8.7 Performed By: #### L100.0500 #### [facility] [address] [place], [place], [address] TROPONIN-I Collected: 03/20/2018 Status: F Source: [place] 4:52 AM [facility] Order Comment: 'TROP' Serial specimen #1, #2 or #3: 2 TYPE CODE TESTS RESULT OUT OF RANGE REFERENCE UNITS LAB L501.4010 <0.045 ng/mL Normal < 0.015 TROPONIN-I Result Comment: TROPONIN-I EXPECTED VALUES <0.045 Negative 0.045 - 0.590 Consistent with Cardiac Damage > OR = 0.600 Critical Value Not every elevated troponin is indicative of MA. These values should be used with clinical judgement in examining the patient's clinical picture for diagnosis. To establish a diagnosis of MA versus myocardial injury, there must be a demonstrated rise and/or fall in the troponin values, in addition to ischemic symptoms, EKG changes, new regional wall motion abnormality, and/or angiographical evidence. PLEASE NOTE: REFERENCE RANGES EDITED 18 Performed By: #### L501.4010 #### [facility] [address] [place], [address] BASIC METABOLIC Collected: 03/20/2018 Status: F Source: [place] PROFILE (BMP) 4:52 AM [facility] TYPE CODE TESTS RESULT OUT OF RANGE REFERENCE UNITS LAB L501.0100 74-106 mg/dL Normal GLU 97 Result Comment: Please note revised GLUCOSE reference range effective 2017. LAB L501.1000 7-18 mg/dL Normal BUN 18 LAB L501.1100 0.70-1.30 mg/dL Normal CREAT,SERUM 0.73 Result Comment: The validity of the calculated GFR AND GFRAA in patients over 70 years has not been determined. Clinical correlation is essential. LAB L501.1110 >60 mL/min Normal EST GFR 122 Result Comment: Non- GFR Calc LAB L501.1115 >60 mL/min Normal EST GFR - AA 148 Result Comment: GFR Calc LAB L501.1255 ml/min Normal Estimated CRCL 131.80 LAB L501.1300 10-20 RATIO High BUN/CRE 24.7 LAB L501.2200 8.5-10 mg/dL Low .1 CA 8.2 LAB L501.5300 136-14 mmol/L 5 NA Normal 144 LAB L501.5600 3.5-5. mmol/L 1 K Normal 3.8 LAB L501.5900 98-107 mmol/L High CL 113 LAB L501.6100 21.0-3 mmol/L 2.0 CO2 Normal 22.0 LAB L501.6200 5-15 GAP Normal 9 Performed By: #### L500.2500, L500.4100, L501.5200, L501.9520, L506.0400 #### [facility] [address] [place], [address] LIPID PROFILE Collected: 03/20/2018 Status: F Source: [place] 4:52 AM [facility] TYPE CODE TESTS RESULT OUT OF RANGE REFERENCE UNITS LAB L501.4900 200 mg/dL Normal CHOL 110 Result Comment: <200 mg/dL Desirable 200-240 mg/dL Borderline >240 mg/dL High Risk LAB L501.5000 mg/dL Normal TRIG 82 Result Comment: The drugs N-Acetylcysteine and Metamizole may falsely depress this assay. Serum Triglycerides Reference Interval Normal <150 mg/dL Borderline high 150 - 199 mg/dL High 200 - 499 mg/dL Very High > or = 500 mg/dL LAB L501.6400 mg/dL Low HDL 36 Result Comment: The drugs N-Acetylcysteine and Metamizole may falsely depress this assay. Reference Range HDL <40 mg/dL Low HDL Cholesterol HDL >or= 60 mg/dL High HDL Cholesterol LAB L501.6500 0-130 mg/dL Normal LDL 58 LAB L501.6600 5-40 mg/dL Normal VLDL 16 Performed By: #### L500.2500, L500.4100, L501.5200, L501.9520, L506.0400 #### [facility] [address] [place], [place], [id number] MAGNESIUM Collected: 03/20/2018 Status: F Source: [place] 4:52 AM [facility] TYPE CODE TESTS RESULT OUT OF RANGE REFERENCE UNITS LAB L501.5200 1.6-2.6 mg/dL Normal MG 2.0 Performed By: #### L500.2500, L500.4100, L501.5200, L501.9520, L506.0400 #### [facility] [address] [place], [place], [address] THYROID STIM HORMONE Collected: 03/20/2018 Status: F Source: [place] (TSH) 4:52 AM [facility] TYPE CODE TESTS RESULT OUT OF RANGE REFERENCE UNITS LAB L501.9520 0.358-3.74 uIU/mL High TSH 3.92 Performed By: #### L500.2500, L500.4100, L501.5200, L501.9520, L506.0400 #### [facility] [address] [place], [place], [address] T4 FREE DIRECT Collected: 03/20/2018 Status: F Source: [place] 4:52 AM [facility] TYPE CODE TESTS RESULT OUT OF RANGE REFERENCE UNITS LAB L506.0400 0.76-1.46 ng/dL Normal T4 FREE 1.17 DIRECT Performed By: #### L500.2500, L500.4100, L501.5200, L501.9520, L506.0400 #### [facility] [address] [place], [address] HISTORY AND PHYSICAL Observed: 03/20/2018 Status: F Source: [place] EXAM 4:04 AM [facility] Medical Records Department [address] [place] [address] History and Physical 03/20/18 0341 MR#: [id number] Acct: [id number] Name: ATTILA DEL CID Rep #: [id number] : 1970 48 From: Kandi Wylie PCP: Nyla Bearden MD Status: ADM FERCHO Y Location: [place] [address] Problem List (1) Chest pain Status: Acute Qualifiers: Chest pain type: unspecified Qualified Code(s): R07.9 - Chest pain, unspecified (2) Obesity (BMI 30.0-34.9) Status: Chronic (3) Ascending aorta dilatation Status: Chronic (4) SVT (supraventricular tachycardia) Status: Chronic (5) LORETTA (obstructive sleep apnea) Status: Chronic (6) Atherosclerotic heart disease of [place] coronary artery without angina pectoris Status: Chronic Qualifiers: [place] vs. transplanted heart: unspecified whether [place] or transplanted heart Qualified Code(s): I25.10 - Atherosclerotic heart disease of [place] coronary artery without angina pectoris (7) HTN (hypertension) Status: Chronic Qualifiers: Hypertension type: essential hypertension (8) Anxiety Status: Chronic (9) PAF (paroxysmal atrial fibrillation) Status: Chronic Comment: Multiple cardioversions, [facility] ablation (2nd). Recent ED presentation 02/24/18 w/ Atrial Fibrillation w/ RVR, successful cardioversion performed. (10) GERD (gastroesophageal reflux disease) Status: Chronic Qualifiers: Esophagitis presence: esophagitis presence not specified (11) Obesity (BMI 30-39.9) Status: Chronic (12) BPPV (benign paroxysmal positional vertigo) Status: Chronic Qualifiers: Laterality: unspecified laterality (13) HLD (hyperlipidemia) Status: Chronic Qualifiers: Hyperlipidemia type: unspecified Qualified Code(s): E78.5 - Hyperlipidemia, unspecified History of Present Illness Date of Admission: 03/20/18 Chief Complaint: Chest pain, palpitations The patient is a 48 y/o M w/ PMHx: Obesity, Anxiety, HTN, HLD, CAD, LORETTA, Hx AAA, BPPV, GERD, PAF s/p serial prior cardioversions and ablation x 2 attempts who presents to the [facility] ED on 03/20/18 with history of 2 months progressively more frequent short periods, 30 seconds-1 minute regular heart rhythm, racing sensation with associated central substernal chest discomfort described as pressure without radiation with associated dyspnea and nausea. He notes these episodes have become more frequent and more severe in nature. He notes ongoing chest discomfort rated 7-8/10 following his 2 or 3 in NG SL series. He was recently in the emergency room and had atrial fibrillation with RVR with successful cardioversion. In the ED work-up included AF, HR 74, BP 129/89, RR 18, 99% on 2L NC, unremarkable CBC, BMP with sodium 146, chloride 112, BUN/creatinine 19/0.88, troponin less than 0.015, EKG with sinus rhythm with no acute evidence of ischemia, chest x-ray with no acute findings. In the emergency room patient administered aspirin, nitroglycerin sublingual, Zofran, Phenergan. Past Medical History Past Medical History (Chronic Problems): Chronic Problems (Last Reviewed 02/26/18 @ 11:43 by Tawanda Colon NP-Tate) Obesity (BMI 30.0-34.9) (Chronic) Ascending aorta dilatation (Chronic) SVT (supraventricular tachycardia) (Chronic) LORETTA (obstructive sleep apnea) (Chronic) Atherosclerotic heart disease of [place] coronary artery without angina pectoris (Chronic) History of left heart catheterization (Chronic) 11/09/2016 @ [facility], per Dr. Shama Harley: normal coronaries Nephrolithiasis (Chronic) HTN (hypertension) (Chronic) Anxiety (Chronic) PAF (paroxysmal atrial fibrillation) (Chronic) Multiple cardioversions, [facility] ablation (2nd). Recent ED presentation 02/24/18 w/ Atrial Fibrillation w/ RVR, successful cardioversion performed. GERD (gastroesophageal reflux disease) (Chronic) Obesity (BMI 30-39.9) (Chronic) BPPV (benign paroxysmal positional vertigo) (Chronic) HLD (hyperlipidemia) (Chronic) Thoracic aortic aneurysm without rupture (Chronic) Medical History: Medical History (Last Reviewed 02/26/18 @ 11:43 by Tawanda Colon CAREER TECHNICAL SUPERVISOR-C) Ascending aorta dilatation (Chronic) I77.810 SVT (supraventricular tachycardia) (Acute) I47.1 LORETTA (obstructive sleep apnea) (Acute) G47.33 Atherosclerotic heart disease of [place] coronary artery without angina pectoris (Chronic) I25.10 Nephrolithiasis (Chronic) N20.0 HTN (hypertension) (Chronic) I10 Anxiety (Chronic) F41.9 PAF (paroxysmal atrial fibrillation) (Chronic) I48.0 GERD (gastroesophageal reflux disease) (Chronic) K21.9 Obesity (BMI 30-39.9) (Chronic) E66.9 BPPV (benign paroxysmal positional vertigo) (Chronic) H81.10 HLD (hyperlipidemia) (Chronic) E78.5 Thoracic aortic aneurysm without rupture (Chronic) I71.2 Allergies clonidine Allergy (Intermediate, Verified 02/26/18 10:12) rash levofloxacin [From Levaquin] Allergy (Verified 02/26/18 10:12) Rash Penicillins Allergy (Verified 02/26/18 10:12) Hives bupropion Adverse Reaction (Intermediate, Verified 02/26/18 10:12) vomiting celecoxib [From Celebrex] Adverse Reaction (Intermediate, Verified 02/26/18 10:12) vomiting eletriptan Adverse Reaction (Intermediate, Verified 02/26/18 10:12) Vomiting topiramate [From Topamax] Adverse Reaction (Intermediate, Verified 02/26/18 10:12) vomiting fentanyl Adverse Reaction (Unknown, Verified 02/26/18 10:12) unknown hydrocodone bitartrate [From Vicodin] Adverse Reaction (Verified 02/26/18 10:12) Nausea Home Medications: Ambulatory Orders Medication Instructions Recorded Pantoprazole Sodium [Protonix] 40 mg PO DAILY 04/22/16 Carvedilol [Coreg] 25 mg PO BID 01/31/17 Albuterol Inhaler [Ventolin Hfa] 1 - 2 puff INHALATION Q4H PRN PRN 07/15/17 Surgical History: Surgical History (Last Reviewed 02/26/18 @ 11:43 by ERNIE Carrillo) History of left heart catheterization (Chronic) Z98.890 11/09/2016 @ [facility], per Dr. Shama Harley: normal coronaries History of cardiac radiofrequency ablation (Resolved) Z98.890 10/09/[address] [facility] [address] Andrew H/O arthroscopic knee surgery Z98.890 History of back surgery Z98.890 History of right knee surgery Z98.890 Surgical History: - - Nephrolithiasis w/ 3 lithotripsies in the right side, back surgery, R TKR, cardiac catheterization without PCI. Psychiatric History: Anxiety Lives: Spouse/ Significant Other, With Family Smoking Status: Never smoker Tobacco Use: Non-smoker Alcohol: None Drugs: None - *Family History Maternal Family History: Family History (Last Reviewed 02/26/18 @ 11:43 by ERNIE Carrillo) Brother Hypertension Mother Heart disease Colon cancer Sister Diabetes Sister Diabetes Sister Diabetes History Items: - - Maternal family history of DM, Colon CA, Valvular Heart Disease. Paternal Family History: Family History (Last Reviewed 02/26/18 @ 11:43 by ERNIE Carrillo) Brother Hypertension Mother Heart disease Colon cancer Sister Diabetes Sister Diabetes Sister Diabetes History Items: - - Paternal family history of skin CA. Review of Systems Constitutional: Reports: Malaise, Weakness, Fatigue. Denies: Chills, Fever, Weight Change HEENT: Denies: Head Aches, Sinus Congestion, Sinus Drainage Cardiovascular: Reports: Chest Pain, Chest Pressure, Chest Tightness, Palpitations Respiratory: Reports: Shortness of Breath. Denies: Cough, Shortness of breath at rest, Sputum production Gastrointestinal: Reports: Nausea. Denies: Abdominal Pain, Vomiting Genitourinary: Denies: Dysuria Musculoskeletal: Reports: Back Pain. Denies: Joint Pain, Joint Tenderness Skin: Denies: Rash, Wounds Neurological: Denies: Numbness, Tingling, Focal weakness Psychiatric: Reports: Anxiety. Denies: Depression, Homicidal Ideations, Suicidal Ideations Hematologic/ Lymphatic: Denies: Easy Bruising, Easy Bleeding VTE Information - Inpt Only VTE Present on Admission: No VTE Mechan Device Prophylaxis: SCD's VTE Pharm Prophylaxis ordered?: No Reason prophylaxis not ordered:: Treatment Not Indicated - On Eliquis. Patient Problems: Active and Suspected Problems (Last Reviewed 02/26/18 @ 11:43 by ERNIE Carrillo) Chest pain (Acute) Subjective: Seated upright in the ED bed, fatigued appearing, notes ongoing chest discomfort. Objective: Physical Examination: General: awake, alert, oriented x 3 and cooperative, seated upright in the ED bed, ongoing chest discomfort. Skin: normal color, turgor, no icterus, cyanosis. HEENT: AT/NC, EOMI, PERRLA, mildly dry MM, no carotid bruits or JVD noted. Lungs: CTA bilaterally, moderate effort, mild decrease BL bases, no rales, ronchi or wheezing. Heart: Regular rate and rhythm; no gallop, rub audible. Abdomen: soft, obese, NTTP, ND, normal BS, no HSM. Extremities: no cyanosis, clubbing, or edema. Neurological: patient awake, alert, oriented x 3; cognitive function intact; pupils equally reactive to light and accomodation; cranial nerves II-XII grossly normal, moving all 4 extremities, no focal deficits, strength moderately to severely globally decreased secondary to acute presentation. Psychiatric: affect appears fatigued, no acute evidence of depressive or anxiety feelings. - Physical Exam Vital Signs Temp Pulse Resp BP Pulse Ox 98.7 F 74 14 142/86 H 99 03/20/18 02:34 03/20/18 03:24 03/20/18 02:53 03/20/18 03:24 03/20/18 02:54 Oxygen Flow Rate (L/min) 2 Oxygen Delivery Method Nasal Cannula Weight: 230 lb Body Mass Index (BMI) 32.1 Finger Stick Blood Glucose 95 Laboratory Tests Past 24 Hrs WBC 6.2 RBC 4.90 Hgb 13.6 Hct 41.0 MCV 83.7 MCH 27.8 MCHC 33.2 RDW 16.4 H RDW Differential 50.1 H Assessment/Plan All Active Problems (Last Reviewed 02/26/18 @ 11:43 by ENRIE Carrillo) Chest pain (Acute) History of cardiac radiofrequency ablation (Resolved) Double vision (Resolved) The patient is a 48 y/o M w/ PMHx: Obesity, Anxiety, HTN, HLD, CAD, LORETTA, Hx AAA, BPPV, GERD, PAF s/p serial prior cardioversions and ablation x 2 attempts who presents to the [facility] ED on 03/20/18 with history of 2 months progressively more frequent short periods, 30 seconds-1 minute regular heart rhythm, racing sensation with associated central substernal chest discomfort described as pressure without radiation with associated dyspnea and nausea. He notes these episodes have become more frequent and more severe in nature. (1) Atypical Chest Pain: EKG in ED SR without acute evidence of ischemia and no marked events on telemetry in the emergency room, CXR w/ no acute findings, initial trop <0.015. Will admit to PCU, place on a monitored bed to assure no acute myocardial infarction with serial cardiac enzymes and EKGs. Patient is unable to perform exercise thus will proceed with AM nuclear stress testing. ASA, NG, morphine. FLP in AM. Mag pending. Recent CTPA, not repeated given history noted #10. (2) CAD: Follows w/ Dr. Stokes. Cardiac catheterization 10/2016 with mild disease, no intervention. Will continue home regimen asa, statin, BB. (3) PAF w/ Intermittent Palpitations: Multiple cardioversions, [facility] ablation (2nd). Recent ED presentation 02/24/18 w/ Atrial Fibrillation w/ RVR, successful cardioversion performed. Maintain on telemetry, if cardiac stress unremarkable, may benefit from event monitor upon discharge. Continue home Coreg, Eliquis regimen. ECHO pending. (4) Hypertension: Continue home regimen including Norvasc, Coreg, Lasix, lisinopril, PRN hydralazine. (5) Hyperlipidemia: Continue home statin regimen. AM FLP. (6) Anxiety and Depression: Continue home venlafaxine regimen. (7) Obesity: Weight loss and lifestyle changes encouraged. (8) GERD: Maintain on home PPI. (9) BPH: Continue home Flomax regimen. (10) AAA: Followed closely, serial CTPA secondary to frequent ED chest pain complaint, last CTPA on 02/17/18 w/ prominent ascending aorta with 4.4 cm diameter. (11) LORETTA: CPAP q HS. (12) DVT prophylaxis: SCDs, Eliquis. Code Visit OBSV E AND M: [id number] Initial observation care L3 03/20/18 0404 <Electronically signed by Kandi Wylie > Date Kandi Wylie Nery Signature: Date (if applicable) CC: Kandi Wylie; Nyla Bearden MD Signed CHEST 1 VIEW Observed: 03/20/2018 Status: F Source: [place] (PORTABLE) 2:55 AM [facility] RE[facility] Imaging Services [address] [place] [address] Chest 1 View (Portable) MR#: [id number] Acct: [id number] Name: ATTILA DEL CID Rep #: [id number] : 1970 48 From: Adrien Franks MD PCP: Nyla Bearden MD Status: REG ER Study: Chest 1 View (Portable) Date of Exam: 03/20/18 Exam# [id number] Ordering Dr: Maryjo Woods STUDY: X-RAY CHEST REASON FOR EXAM: Male, 48 years old. Chest pain. TECHNIQUE: Single AP portable view of the chest. COMPARISON: 02/24/2018. FINDINGS: The lungs are somewhat hyperinflated particularly in the lung apices. No focal infiltrate is seen. There is no demonstrated pleural abnormality. Normal size heart. There is widening of the mediastinum probably exaggerated by patient's positioning. Normal visualized pulmonary arteries. Normal visualized aortic arch and descending thoracic aorta. Thoracic spine is obscured. Normal visualized ribs, clavicles, and shoulders. There is no demonstrated abnormality of the visualized soft tissue structures of the upper abdomen. RAD/Chest 1 View (Portable) IMPRESSION: No active pulmonary disease. Electronically Signed: Adrien Franks MD at 3:39 EDT Tel , Service support , CC: Maryjo Woods; Nyla Bearden MD 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: Signed CBC W/DIFF, AUTOMATED Collected: 03/20/2018 Status: F Source: [place] 2:30 AM [facility] TYPE CODE TESTS RESULT OUT OF RANGE REFERENCE UNITS LAB L100.1000 4.4-11.0 K/mm3 Normal WBC 6.2 LAB L100.1200 4.6-6.2 M/mm3 Normal RBC 4.90 LAB L100.1300 13.0-16.5 g/dl Normal HGB 13.6 LAB L100.1400 40-54 % Normal HCT 41.0 LAB L100.1500 80-94 fL Normal MCV 83.7 LAB L100.1600 27.0-32.0 pg Normal MCH 27.8 LAB L100.1700 32-36 g/gl Normal MCHC 33.2 LAB L100.1810 11.6-14.6 % High RDW CV 16.4 LAB L100.1820 35.1-43.9 fl High RDW SD 50.1 LAB L100.1900 150-450 K/mm3 Normal PLT 254 LAB L100.2000 6.2-12.0 fl Normal MPV 9.0 LAB L100.2100 47-70 % Low NEUT% 44.0 LAB L100.2200 19-41 % High LY% 43.6 LAB L100.2300 0-10 % High MONO% 10.4 LAB L100.2400 0-5 % Normal EO% 1.3 LAB L100.2500 0-1 % Normal BASO% 0.5 LAB L100.2550 0.0-0.9 % Normal IM GRAN % 0.200 Result Comment: IG% - Immature Granulocytes (promyelocytes, myelocytes and metamyelocytes) > 1% indicates that a LEFT SHIFT is Present. LAB L100.2620 2.0-7.7 X10 3/uL Normal Absolute Neut 2.7 LAB L100.2720 0.83-4.51 X10 3/ul Normal Absolute Lymph 2.69 Performed By: #### L100.0100 #### [facility] [place], [address] BASIC METABOLIC Collected: 03/20/2018 Status: F Source: [place] PROFILE (BMP) 2:30 AM [facility] TYPE CODE TESTS RESULT OUT OF RANGE REFERENCE UNITS LAB L501.0100 74-106 mg/dL Normal GLU 97 Result Comment: Please note revised GLUCOSE reference range effective 2017. LAB L501.1000 7-18 mg/dL High BUN 19 LAB L501.1100 0.70-1.30 mg/dL Normal CREAT,SERUM 0.88 Result Comment: The validity of the calculated GFR AND GFRAA in patients over 70 years has not been determined. Clinical correlation is essential. LAB L501.1110 >60 mL/min Normal EST GFR 98 Result Comment: Non- GFR Calc LAB L501.1115 >60 mL/min Normal EST GFR - AA 119 Result Comment: GFR Calc LAB L501.1255 ml/min Normal Estimated CRCL 109.34 LAB L501.1300 10-20 RATIO High BUN/CRE 21.6 LAB L501.2200 8.5-10 mg/dL .1 CA Normal 8.5 LAB L501.5300 136-14 mmol/L High 5 NA 146 LAB L501.5600 3.5-5. mmol/L 1 K Normal 4.1 LAB L501.5900 98-107 mmol/L High CL 110 LAB L501.6100 21.0-3 mmol/L 2.0 CO2 Normal 27.0 LAB L501.6200 5-15 GAP Normal 9 Performed By: #### L500.2500, L501.4010 #### [facility] [address] [place], [place], [address] TROPONIN-I Collected: 03/20/2018 Status: F Source: [place] 2:30 AM [facility] TYPE CODE TESTS RESULT OUT OF RANGE REFERENCE UNITS LAB L501.4010 <0.045 ng/mL Normal < 0.015 TROPONIN-I Result Comment: TROPONIN-I EXPECTED VALUES <0.045 Negative 0.045 - 0.590 Consistent with Cardiac Damage > OR = 0.600 Critical Value Not every elevated troponin is indicative of MA. These values should be used with clinical judgement in examining the patient's clinical picture for diagnosis. To establish a diagnosis of MA versus myocardial injury, there must be a demonstrated rise and/or fall in the troponin values, in addition to ischemic symptoms, EKG changes, new regional wall motion abnormality, and/or angiographical evidence. PLEASE NOTE: REFERENCE RANGES EDITED 18 Performed By: #### L500.2500, L501.4010 #### [facility] [address] [place], [address] ORTHOPEDIC VISIT Observed: 03/11/2018 Status: F Source: [place] REPORT 3:53 PM [facility] [address] [place] [address] [address] [place] [address] OFFICE VISIT Date of Service: 02/13/18 MR#: [id number] Acct: [id number] Name: ATTILA DEL CID Rep #: [id number] : 1970 Provider: Claribel Batista DO Age/Sex: 48/M Location: [facility] Status: Signed Intake Intake Visit Reasons: RIGHT SHOULDER Chief Complaint: F/U Anxiety med Allergies clonidine Allergy (Intermediate, Verified 02/26/18 10:12) rash levofloxacin [From Levaquin] Allergy (Verified 02/26/18 10:12) Rash Penicillins Allergy (Verified 02/26/18 10:12) Hives bupropion Adverse Reaction (Intermediate, Verified 02/26/18 10:12) vomiting celecoxib [From Celebrex] Adverse Reaction (Intermediate, Verified 02/26/18 10:12) vomiting eletriptan Adverse Reaction (Intermediate, Verified 02/26/18 10:12) Vomiting topiramate [From Topamax] Adverse Reaction (Intermediate, Verified 02/26/18 10:12) vomiting fentanyl Adverse Reaction (Unknown, Verified 02/26/18 10:12) unknown hydrocodone bitartrate [From Vicodin] Adverse Reaction (Verified 02/26/18 10:12) Nausea Medications Pantoprazole Sodium [Protonix] 40 mg PO DAILY 04/22/16 [History Confirmed 03/07/18] Carvedilol [Coreg] 25 mg PO BID 01/31/17 [History Confirmed 03/07/18] Albuterol Inhaler [Ventolin Hfa] 1 - 2 puff INHALATION Q4H PRN PRN #1 inhaler 07/15/17 [Rx Confirmed 03/07/18] Apixaban [Eliquis] 5 mg PO BID 09/21/17 [History Confirmed 03/07/18] furosemide 40 mg tablet 40 mg PO QDAY #90 tab 10/29/17 [Rx Confirmed 03/07/18] lisinopril 40 mg tablet 40 mg PO QDAY #90 tab 10/29/17 [Rx Confirmed 03/07/18] atorvastatin 20 mg tablet 20 mg PO QDAY #60 tab 11/11/17 [Rx Confirmed 03/07/18] gabapentin 100 mg capsule 100 mg PO QHS #30 cap 01/14/18 [Rx Confirmed 03/07/18] meclizine 12.5 mg tablet 12.5 mg PO QODAY PRN #30 tab 01/14/18 [Rx Confirmed 03/07/18] tamsulosin 0.4 mg capsule 0.4 mg PO QDAY #90 cap 02/18/18 [Rx Confirmed 03/07/18] colchicine 0.6 mg tablet 0.6 mg PO QDAY #30 tab 02/21/18 [Rx Confirmed 03/07/18] amlodipine 5 mg tablet 5 mg PO DAILY #90 tab 02/26/18 [Rx Confirmed 03/07/18] venlafaxine ER 150 mg tablet,extended release 24 hr 150 mg PO QDAY #30 tab 02/26/18 [Rx Confirmed 03/07/18] Oxycodone HCl/Acetaminophen [Percocet 5/325] 1 tab PO Q6H PRN PRN 3 Days #12 tab 03/07/18 [Rx] PFSH Medical History Ascending aorta dilatation (Chronic) SVT (supraventricular tachycardia) (Acute) LORETTA (obstructive sleep apnea) (Acute) Atherosclerotic heart disease of [place] coronary artery without angina pectoris (Chronic) Nephrolithiasis (Chronic) HTN (hypertension) (Chronic) Anxiety (Chronic) PAF (paroxysmal atrial fibrillation) (Chronic) GERD (gastroesophageal reflux disease) (Chronic) Obesity (BMI 30-39.9) (Chronic) BPPV (benign paroxysmal positional vertigo) (Chronic) HLD (hyperlipidemia) (Chronic) Thoracic aortic aneurysm without rupture (Chronic) Surgical History History of left heart catheterization (Chronic) History of cardiac radiofrequency ablation (Resolved) H/O arthroscopic knee surgery (Resolved) History of back surgery (Resolved) History of right knee surgery (Resolved) Family History Brother Hypertension Mother Heart disease Colon cancer Sister Diabetes Sister Diabetes Sister Diabetes Social History Smoking Status: Never smoker alcohol intake: never substance use type: does not use caffeine: No what type of physical activity do you participate in: walking frequency: 1-2 times per week duration: 15-30 minutes/day seatbelt use: always do you feel safe at home: Yes HPI RIGHT SHOULDER: Details: ATTILA DEL CID is a 48 year old M here today for right shoulder pain. He states that he fell up the stairs 2 days ago, catching himself with his right arm. He notes that he felt a pop when he landed. Patient notes that his range of motion is decreased and has worsened since his fall. Patient rates his pain at a 5/10 currently. Patient was going to therapy but had to cancel his appointment yesterday due to the fall. Patient notes that therapy was helping. He has pain over his anterior shoulder currently. He denies any recent xrays. ROS Const Reports system reviewed and no additional complaints, except as docu Eyes Reports system reviewed and no additional complaints, except as docu ENT Reports system reviewed and no additional complaints, except as docu Card Reports system reviewed and no additional complaints, except as docu Resp Reports system reviewed and no additional complaints, except as docu GI Reports system reviewed and no additional complaints, except as docu Reports system reviewed and no additional complaints, except as docu Musc Reports joint pain, Reports limited joint movement, Reports muscle weakness Skin/Breast Reports system reviewed and no additional complaints, except as docu Neuro Yes system reviewed and no additional complaints, except as docu Psych Reports system reviewed and no additional complaints, except as docu Endo Reports system reviewed and no additional complaints, except as docu Office Procedures Ortho Injections Injections Yes Subacromial Injection Right Details: Obtained consent for injection. Under sterile conditions, injected the patients right subacromial joint with a 10cc cocktail of 8cc bupivacaine and 2cc kenalog. The patient tolerated the injection well without any noted complication. Patient should call our office if redness develops, pain worsens or if they have any concerns. Office Meds Kenalog Performing Provider: Claribel Batista DO Administered by: Claribel Batista DO on 02/13/18 13:12 Dose Route Admin Location Lot Number Expiration DateNDC Tip Inserter 2 mg Intra-Articularright sub [id number] 02/18/19 8019-5476-81 BRISTOL HAMILTON azl SQUIBB Assessment AND Plan Orders Orders: Medications Discontinued: Kenalog (triamcinolone acetonide) 2 mg (0.2 mL) Intra-Articular ONCE NM75.42 Jagdish Miller Discontinued Reason: Office MedicaS tion has been Documented as given Coding Level of Care Code Off vis,est,level 4 Additional Codes yoga teacher.sub (40520) 03/11/18 8705 <Electronically signed by Claribel Batista DO> Date Claribel Colladoigner Signature: Date (if applicable) CC: EMERGENCY DEPARTMENT Observed: 03/07/2018 Status: F Source: [place] SUMMARY 11:36 PM [facility] Medical Records Department [address] [place] [address] Emergency Department Summary 03/07/18 2331 MR#: [id number] Acct: [id number] Name: ATTILA DEL CID Rep #: [id number] : 1970 48 From: Attila Johnson MD PCP: Nyla Bearden MD Status: REG ER - ER Visit Summary Date of Service: 03/07/18 Chief Complaint: Flank pain History of Present Illness: The patient is a 48 M with right- sided flank pain today. The patient has a history of kidney stones. He had a CT several weeks ago that showed several stones on the right side and he is concerned that he may be passing 1. He noted some hematuria earlier today. Physical Examination: Afebrile and vital signs unremarkable. The patient is sitting and appears in no acute distress. Skin appears normal. Heart regular. Lungs clear. Abdomen soft and nontender. Right CVA tender to palpation. Test Results: Laboratory studies were unremarkable. Urinalysis shows no significant blood or sign of infection. Previous CT was reviewed, and we did check a renal ultrasound today. That showed right-sided nephrolithiasis without hydronephrosis. Left kidney was normal. Emergency Department Course and Treatment: Patient received fluids, morphine, and Zofran. On reassessment he was comfortable. His workup did not show any evidence of infection, sepsis, renal failure, obstruction, or any other complication. I suspect his pain and hematuria may be from passing a small stone. There is nothing to suggest GI or vascular pathology. Patient will be prescribed a short course of Percocet. He has multiple prescribers and prescriptions over the last year. He is not currently on any opioid medications. I believe this is safer given his concurrent use of Eliquis. He also should continue his Flomax. He has nausea medicine at home. He will follow-up with Dr. Perez. Return for any new or worsening symptoms. Treatment Plan: As above Disposition: Discharged Impression: 1. Right flank pain This note was generated with [employer] dictation software. It may contain incorrect words, spelling, and punctuation that were not noted in review of the chart prior to signing ED Disposition - Plan for ED Patient: Chief Complaint: Flank Pain Referrals: Nyla Bearden MD [Primary Care Provider] - What to do if you have Problems For any increased pain, shortness of breath, bleeding, nausea or vomiting, chest pain, or any unexpected problems, contact your Primary Care Provider. Call [facility] ([phone]) or report to the closest Emergency Room. Call 911 if necessary. 03/07/18 7598 <Electronically signed by Attila Johnson MD> Date Attila Johnson MD Cosigner Signature (If Indicated): Date CC: Nyla Bearden MD DISCHARGE INSTRUCTION Observed: 03/07/2018 Status: F Source: [place] 11:36 PM [facility] Medical Records Department [address] [place] [address] Discharge Instruction 03/07/18 2333 MR#: [id number] Acct: [id number] Name: ATTILA DEL CID Rep #: [id number] : 1970 48 From: Attila Johnson MD PCP: Nyla Bearden MD Status: REG ER ED Disposition - Plan for ED Patient: Chief Complaint: Flank Pain Instructions: ED Flank Pain Uncertain Cause Prescriptions: Oxycodone HCl/Acetaminophen [Percocet 5/325] 1 tab PO Q6H PRN PRN 3 Days #12 tab PRN Reason: Pain Referrals: Camron Perez MD [NON-STAFF] - What to do if you have Problems For any increased pain, shortness of breath, bleeding, nausea or vomiting, chest pain, or any unexpected problems, contact your Primary Care Provider. Call [facility] ([phone]) or report to the closest Emergency Room. Call 911 if necessary. 03/07/186 <Electronically signed by Attila Johnson MD> Date Attila Johnson MD Cosigner Signature (If Indicated): Date CC: Nyla Bearden MD CBC W/DIFF, AUTOMATED Collected: 03/07/2018 Status: F Source: [place] 10:10 PM [facility] TYPE CODE TESTS RESULT OUT OF RANGE REFERENCE UNITS LAB L100.1000 4.4-11.0 K/mm3 Normal WBC 7.8 LAB L100.1200 4.6-6.2 M/mm3 Normal RBC 5.12 LAB L100.1300 13.0-16.5 g/dl Normal HGB 13.9 LAB L100.1400 40-54 % Normal HCT 41.4 LAB L100.1500 80-94 fL Normal MCV 80.9 LAB L100.1600 27.0-32.0 pg Normal MCH 27.1 LAB L100.1700 32-36 g/gl Normal MCHC 33.6 LAB L100.1810 11.6-14.6 % High RDW CV 15.8 LAB L100.1820 35.1-43.9 fl High RDW SD 46.1 LAB L100.1900 150-450 K/mm3 Normal PLT 240 LAB L100.2000 6.2-12.0 fl Normal MPV 8.7 LAB L100.2100 47-70 % Normal NEUT% 62.9 LAB L100.2200 19-41 % Normal LY% 26.6 LAB L100.2300 0-10 % Normal MONO% 9.5 LAB L100.2400 0-5 % Normal EO% 0.6 LAB L100.2500 0-1 % Normal BASO% 0.3 LAB L100.2550 0.0-0.9 % Normal IM GRAN % 0.100 Result Comment: IG% - Immature Granulocytes (promyelocytes, myelocytes and metamyelocytes) > 1% indicates that a LEFT SHIFT is Present. LAB L100.2620 2.0-7.7 X10 3/uL Normal Absolute Neut 4.9 LAB L100.2720 0.83-4.51 X10 3/ul Normal Absolute Lymph 2.08 Performed By: #### L100.0100 #### [facility] [address] [place], [address] COMPREHENSIVE METABOLIC Collected: 03/07/2018 Status: F Source: [facility] 10:10 PM [facility]POS[facility] TYPE CODE TESTS RESULT OUT OF RANGE REFERENCE UNITS LAB L501.0100 74-106 mg/dL Normal GLU 90 Result Comment: Please note revised GLUCOSE reference range effective 2017. LAB L501.1000 7-18 mg/dL High BUN 29 LAB L501.1100 0.70-1.30 mg/dL Normal CREAT,SERUM 1.29 Result Comment: The validity of the calculated GFR AND GFRAA in patients over 70 years has not been determined. Clinical correlation is essential. LAB L501.1110 >60 mL/min Normal EST GFR 63 Result Comment: Non- GFR Calc LAB L501.1115 >60 mL/min Normal EST GFR - AA 76 Result Comment: GFR Calc LAB L501.1255 ml/min Normal Estimated CRCL 74.59 LAB L501.1300 10-20 RATIO High BUN/CRE 22.5 LAB L501.1500 6.4-8. g/dL Normal 2 T PROT 6.4 LAB L501.1800 3.2-5. g/dL Normal 0 ALB 3.2 LAB L501.1950 2.2-4. g/dL Normal 2 GLOB 3.2 LAB L501.2000 0.9-2. RATIO Normal 4 A/G 1.0 LAB L501.2200 8.5-10 mg/dL Low .1 CA 8.3 LAB L501.4100 15-37 U/L Normal AST 22 LAB L501.4305 45-117 U/L Normal ALK P 89 LAB L501.4405 16-61 U/L Normal ALT 45 LAB L501.4600 0.20-1 mg/dL Normal .00 T BILI 0.40 LAB L501.5300 136-14 mmol/L Normal 5 NA 141 LAB L501.5600 3.5-5. mmol/L Normal 1 K 3.8 LAB L501.5900 98-107 mmol/L High CL 110 LAB L501.6100 21.0-3 mmol/L Normal 2.0 CO2 25.0 LAB L501.6200 5-15 Normal GAP 6 Performed By: #### L500.4050, L501.2450 #### [facility] [address] [place], [address] LIPASE Collected: 03/07/2018 Status: F Source: [place] 10:10 PM [facility] REPOSITORY TYPE CODE TESTS RESULT OUT OF RANGE REFERENCE UNITS LAB L501.2450 73-393 U/L Normal LIPASE 207 Performed By: #### L500.4050, L501.2450 #### [facility] [address] [place], [address] KIDNEY AND BLADDER Observed: 03/07/2018 Status: F Source: [place] 10:01 PM [facility] REPOSITORY [facility] Imaging Services [address] [place] [address] Kidney and Bladder MR#: [id number] Acct: [id number] Name: MARIA EUGENIAATTILA Lois Rep #: [id number] : 1970 M 48 From: Liz Hardy MD PCP: Nyla Bearden MD Status: [facility] Study: Kidney and Bladder Date of Exam: 03/07/18 Exam# [id number] Ordering Dr: Attila Johnson MD STUDY: RENAL ULTRASOUND - COMPLETE REASON FOR EXAM: Male, 48 years old. Right flank pain TECHNIQUE: Ultrasound evaluation of the kidneys was performed with real-time and static lopez-scale imaging. COMPARISON: None. FINDINGS: RIGHT KIDNEY: Normal location of the right kidney, which is normal in size. The right kidney measures 11.6 x 5.7 x 5.5 cm. There is a normal cortex of the right kidney. The renal cortex measures 2.0 cm. There is no right renal mass or cyst. Multiple echogenic foci of the right kidney mid and lower pole. There is no right hydronephrosis. DISTAL RIGHT URETER: There is non-visualization of the distal right ureter. There is no demonstrated right ureteral jet. LEFT KIDNEY: Normal location of the left kidney, which is normal in size. The left kidney measures 12.2 x 5.0 x 5.1 cm. There is a normal cortex of the left kidney. The renal cortex measures 1.7 cm. There is no left renal mass or cyst. There are no left renal calculi. There is no left hydronephrosis. DISTAL LEFT URETER: There is non-visualization of the distal left ureter. There is no demonstrated left ureteral jet. BLADDER: The nondistended urinary bladder has a volume of 18 ml. There is a normal wall thickness of the distended urinary bladder. There is no demonstrated mass within the urinary bladder. There are no demonstrated bladder calculi. US/Kidney and Bladder IMPRESSION: Normal size of the right kidney. Multiple echogenic foci of the right kidney in the mid and lower pole consistent with nephrolithiasis without hydronephrosis. Normal left kidney without stones or hydronephrosis. Electronically Signed: Liz Hardy MD at 23:04 EDT , Service support , CC: Attila Johnson MD; Nyla Bearden MD 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: Signed URINALYSIS, COMPLETE Collected: 03/07/2018 Status: F Source: [place] 9:35 PM [facility] REPOSITORY Order Comment: How was Urine Obtained? CLEAN CATCH TYPE CODE TESTS RESULT OUT OF RANGE REFERENCE UNITS LAB L400.3000 Yellow COLOR Normal Yellow LAB L400.3050 Clear Normal CLARITY Clear LAB L400.3200 Normal mg/dl Normal GLUCOSE, UR Normal LAB L400.3300 Negative mg/dL Normal BILIRUBIN URINE Negative LAB L400.3400 Negative mg/dl Normal KETONE UR Negative LAB L400.3465 1.002-1.030 Normal SP.GR. DIPSTX 1.030 LAB L400.3550 5.0 - 8.0 pH UR Normal 5.0 LAB L400.3600 Negative mg/dl High PROT 30 DIPSTX LAB L400.3700 Normal mg/dl High 1 UROBILI LAB L400.3750 Negative Normal NITRITE UR Negative LAB L400.3780 Negative /ul High 25 OCCULT BLOOD-UR LAB L400.3800 Negative /ul LEUK Normal ESTERASE Negative LAB L400.4050 0-5 /hpf WBC 0 Normal SEEN LAB L400.4100 0-5 /hpf Normal RBC-UA 0-5 SEEN LAB L400.4150 0-5 /hpf SQUAM Normal EPI 0-5 SEEN LAB L400.4300 None Seen /hpf Normal BACTERIA RARE LAB L400.4350 <or=2+ /hpf 1+ Normal MUCUS, URINE LAB L400.4400 0-5 /lpf Normal HYALINE CAST 0-5 SEEN LAB L400.4700 <or=2+ /hpf CA OX Normal CRYSTAL RARE Performed By: #### L400.0001 #### [facility] [address] [place], [place], [id number] ORTHOPEDIC VISIT Observed: 03/04/2018 Status: F Source: [place] REPORT 11:55 AM [facility] REPOSITORY [facility] [address] [place], [place] [address] OFFICE VISIT Date of Service: 02/13/18 MR#: [id number] Acct: [id number] Name: ATTILA DEL CID Rep #: [id number] : 1970 Provider: Claribel Batista DO Age/Sex: 48/M Location: [facility] Status: Signed Intake Intake Visit Reasons: RIGHT SHOULDER Chief Complaint: F/U Anxiety med Allergies clonidine Allergy (Intermediate, Verified 02/21/18 10:19) rash levofloxacin [From Levaquin] Allergy (Verified 02/21/18 10:19) Rash Penicillins Allergy (Verified 02/21/18 10:19) Hives bupropion Adverse Reaction (Intermediate, Verified 02/21/18 10:19) vomiting celecoxib [From Celebrex] Adverse Reaction (Intermediate, Verified 02/21/18 10:19) vomiting eletriptan Adverse Reaction (Intermediate, Verified 02/21/18 10:19) Vomiting topiramate [From Topamax] Adverse Reaction (Intermediate, Verified 02/21/18 10:19) vomiting fentanyl Adverse Reaction (Unknown, Verified 02/21/18 10:19) unknown acetaminophen [From Vicodin] Adverse Reaction (Verified 02/21/18 10:19) Nausea hydrocodone bitartrate [From Vicodin] Adverse Reaction (Verified 02/21/18 10:19) Nausea Medications Pantoprazole Sodium [Protonix] 40 mg PO DAILY 04/22/16 [History Confirmed 02/24/18] Carvedilol [Coreg] 25 mg PO BID 01/31/17 [History Confirmed 02/24/18] Albuterol Inhaler [Ventolin Hfa] 1 - 2 puff INHALATION Q4H PRN PRN #1 inhaler 07/15/17 [Rx Confirmed 02/24/18] Apixaban [Eliquis] 5 mg PO BID 09/21/17 [History Confirmed 02/24/18] furosemide 40 mg tablet 40 mg PO QDAY #90 tab 10/29/17 [Rx Confirmed 02/24/18] lisinopril 40 mg tablet 40 mg PO QDAY #90 tab 10/29/17 [Rx Confirmed 02/24/18] atorvastatin 20 mg tablet 20 mg PO QDAY #60 tab 11/11/17 [Rx Confirmed 02/24/18] gabapentin 100 mg capsule 100 mg PO QHS #30 cap 01/14/18 [Rx Confirmed 02/24/18] meclizine 12.5 mg tablet 12.5 mg PO QODAY PRN #30 tab 01/14/18 [Rx Confirmed 02/24/18] venlafaxine ER 75 mg tablet,extended release 24 hr 75 mg PO QDAY #30 tab 01/14/18 [Rx Confirmed 02/24/18] amlodipine 5 mg tablet 5 mg PO DAILY tab 01/21/18 [History Confirmed 02/24/18] tamsulosin 0.4 mg capsule 0.4 mg PO QDAY #90 cap 02/18/18 [Rx Confirmed 02/24/18] colchicine 0.6 mg tablet 0.6 mg PO QDAY #30 tab 02/21/18 [Rx Confirmed 02/24/18] PFSH Medical History Ascending aorta dilatation (Chronic) SVT (supraventricular tachycardia) (Acute) LORETTA (obstructive sleep apnea) (Acute) Atherosclerotic heart disease of [place] coronary artery without angina pectoris (Chronic) Nephrolithiasis (Chronic) HTN (hypertension) (Chronic) Anxiety (Chronic) PAF (paroxysmal atrial fibrillation) (Chronic) GERD (gastroesophageal reflux disease) (Chronic) Obesity (BMI 30-39.9) (Chronic) BPPV (benign paroxysmal positional vertigo) (Chronic) HLD (hyperlipidemia) (Chronic) Thoracic aortic aneurysm without rupture (Chronic) Surgical History History of left heart catheterization (Chronic) History of cardiac radiofrequency ablation (Resolved) H/O arthroscopic knee surgery (Resolved) History of back surgery (Resolved) History of right knee surgery (Resolved) Family History Brother Hypertension Mother Heart disease Colon cancer Sister Diabetes Sister Diabetes Sister Diabetes Social History Smoking Status: Never smoker alcohol intake: never substance use type: does not use caffeine: No what type of physical activity do you participate in: walking frequency: 1-2 times per week duration: 15-30 minutes/day seatbelt use: always do you feel safe at home: Yes HPI RIGHT SHOULDER: Details: ATTILA DEL CID is a 48 year old M here today for increased right shoulder pain after he fell and landed on the right side. He states he did not feel the shoulder dislocate and Denies numbness, tingling or other associated symptoms. He does have decreased rom today due to pain. No bruising or swelling noted today. Ortho Exam Right Shoulder Skin/Wound: Yes CDI Contralateral Normal: Yes Testing: Positive AROM-Forward Elevation 0-180 (120), AROM- External Rotation at side 0-60, Hawkin's, Neer's and empty can Office Procedures Ortho Injections Injections Yes Subacromial Injection Right Details: Obtained consent for injection. Under sterile conditions, injected the patients right subacromial joint with a 10cc cocktail of 8cc bupivacaine and 2cc kenalog. The patient tolerated the injection well without any noted complication. Patient should call our office if redness develops, pain worsens or if they have any concerns. Office Meds Kenalog Performing Provider: Claribel Batista DO Administered by: Claribel Batista DO on 02/13/18 13:12 Dose Route Admin Location Lot Number Expiration DateNDC Tip Inserter 2 mg Intra-Articularright sub [id number] 02/18/19 6704-9202-87 [facility] Assessment AND Plan 1. Subacromial bursitis of right shoulder joint M75.51 Plan Reviewed treatment options, another injection , PT or shoulder scope for debridement. We will inject today and gave [facility]OS shoulder program for HEP. Follow up in 3-4 months or sooner if pain, swelling, numbness or associated symptoms, or concerns develop. All questions answered. Patient in agreement of plan. 2. 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 ([id number]) 03/04/18 3815 <Electronically signed by Claribel Batista DO> Date Claribel Batista DO Cosigner Signature: Date (if applicable) CC: INTERNAL MEDICINE Observed: 02/26/2018 Status: F Source: [place] OFFICE VISIT 3:03 PM [facility] Internal Medicine [address] [place] [address] OFFICE VISIT Date of Service: 02/26/18 MR#: [id number] Acct: [id number] Name: ATTILA DEL CID Rep #: [id number] : 1970 Provider: Tawanda Colon NP Age/Sex: 48/M Location: [facility] [place] Status: Signed Intake Vital Signs02/26/18 Height 5 ft 11 in 02/26/18 Weight: 244 lb 02/26/18 Body Mass Index (BMI) 34.0 02/26/18 Blood Pressure 118/84 02/26/18 Blood Pressure Location Lt brachial Intake Visit Reasons: FU ER Chief Complaint: Follow-up cardioversion done in the ED 02/24/18 Is patient in pain?: No Allergies clonidine Allergy (Intermediate, Verified 02/26/18 10:12) rash levofloxacin [From Levaquin] Allergy (Verified 02/26/18 10:12) Rash Penicillins Allergy (Verified 02/26/18 10:12) Hives bupropion Adverse Reaction (Intermediate, Verified 02/26/18 10:12) vomiting celecoxib [From Celebrex] Adverse Reaction (Intermediate, Verified 02/26/18 10:12) vomiting eletriptan Adverse Reaction (Intermediate, Verified 02/26/18 10:12) Vomiting topiramate [From Topamax] Adverse Reaction (Intermediate, Verified 02/26/18 10:12) vomiting fentanyl Adverse Reaction (Unknown, Verified 02/26/18 10:12) unknown acetaminophen [From Vicodin] Adverse Reaction (Verified 02/26/18 10:12) Nausea hydrocodone bitartrate [From Vicodin] Adverse Reaction (Verified 02/26/18 10:12) Nausea Medications Pantoprazole Sodium [Protonix] 40 mg PO DAILY 04/22/16 [History Confirmed 02/26/18] Carvedilol [Coreg] 25 mg PO BID 01/31/17 [History Confirmed 02/26/18] Albuterol Inhaler [Ventolin Hfa] 1 - 2 puff INHALATION Q4H PRN PRN #1 inhaler 07/15/17 [Rx Confirmed 02/26/18] Apixaban [Eliquis] 5 mg PO BID 09/21/17 [History Confirmed 02/26/18] furosemide 40 mg tablet 40 mg PO QDAY #90 tab 10/29/17 [Rx Confirmed 02/26/18] lisinopril 40 mg tablet 40 mg PO QDAY #90 tab 10/29/17 [Rx Confirmed 02/26/18] atorvastatin 20 mg tablet 20 mg PO QDAY #60 tab 11/11/17 [Rx Confirmed 02/26/18] gabapentin 100 mg capsule 100 mg PO QHS #30 cap 01/14/18 [Rx Confirmed 02/26/18] meclizine 12.5 mg tablet 12.5 mg PO QODAY PRN #30 tab 01/14/18 [Rx Confirmed 02/26/18] tamsulosin 0.4 mg capsule 0.4 mg PO QDAY #90 cap 02/18/18 [Rx Confirmed 02/26/18] colchicine 0.6 mg tablet 0.6 mg PO QDAY #30 tab 02/21/18 [Rx Confirmed 02/26/18] amlodipine 5 mg tablet 5 mg PO DAILY #90 tab 02/26/18 [Rx Confirmed 02/26/18] venlafaxine ER 150 mg tablet,extended release 24 hr 150 mg PO QDAY #30 tab 02/26/18 [Rx Confirmed 02/26/18] PFSH Medical History Ascending aorta dilatation (Chronic) SVT (supraventricular tachycardia) (Acute) LORETTA (obstructive sleep apnea) (Acute) Atherosclerotic heart disease of [place] coronary artery without angina pectoris (Chronic) Nephrolithiasis (Chronic) HTN (hypertension) (Chronic) Anxiety (Chronic) PAF (paroxysmal atrial fibrillation) (Chronic) GERD (gastroesophageal reflux disease) (Chronic) Obesity (BMI 30-39.9) (Chronic) BPPV (benign paroxysmal positional vertigo) (Chronic) HLD (hyperlipidemia) (Chronic) Thoracic aortic aneurysm without rupture (Chronic) Surgical History History of left heart catheterization (Chronic) History of cardiac radiofrequency ablation (Resolved) H/O arthroscopic knee surgery (Resolved) History of back surgery (Resolved) History of right knee surgery (Resolved) Family History Brother Hypertension Mother Heart disease Colon cancer Sister Diabetes Sister Diabetes Sister Diabetes Social History Smoking Status: Never smoker alcohol intake: never substance use type: does not use caffeine: No what type of physical activity do you participate in: walking frequency: 1-2 times per week duration: 15-30 minutes/day seatbelt use: always do you feel safe at home: Yes HPI HPI Chief Complaint: Follow-up cardioversion done in the ED 02/24/18 Details: ATTILA DEL CID, is a 48 M who presents to the office today for a follow up recent cardioversion done in [facility] ED on 02/24/2018. He has a past medical history significant for LORETTA, hypertension, anxiety, paroxysmal A. fib, GERD, CAD, hyperlipidemia, thoracic aortic aneurysm without rupture, and obesity. From a cardiac standpoint, his symptoms have improved since electrical cardioversion 2 days ago. He denies any chest pain or pressure, palpitations, dizziness, syncope or presyncopal episodes. He does complain of some minor fatigue, but states it generally takes him a few weeks to get over this after cardioversion. He has had 2 ablations and this is his third cardioversion. He follows with Dr. Andrew at the [facility] and cardiology locally. He does note that his heart rate feels a little fast, rate today in the office is 94 counted manually. The patient states that he had some minor dyspnea with exertion last evening, but it has not recurred today. With regard to his depression and anxiety, the patient wonders if an increase in his venlafaxine which show some improvement as he has not noticed a change on his current 75 mg daily. The patient also notes that we had increased his amlodipine to 10 mg; however, at his last visit with Dr. Andrew he was hypotensive and symptomatic, so the dose was decreased back to 5 mg. The patient otherwise denies any fever, chills, nausea, vomiting, orthopnea, lower extremity edema, syncope or presyncopal episodes. ROS Const Constitutional: No anorexia, body ache, chills, fever(s), decreased energy, malaise, night sweats, weight change, sleep problems, other, snoring, weakness, frequent falls, headache(s), abnormal sleep pattern, change in appetite, excessive sweating or fatigue Eyes Eyes: No blurry vision, change in vision, double vision, discharge, dry eyes, bulging eyes, floaters, eye pain, light sensitivity, spots in vision, tunnel vision, other or visual disturbances ENT ENT: No ear pain, ear discharge, ear pressure, hearing loss, tinnitus, dizziness/vertigo, balance problems, nosebleed/epistaxis, nasal congestion, nasal obstruction, nose pain, sinus pressure, sinus pain, nasal discharge, post nasal drip, facial pain, dental pain, dry mouth, bad breath, hoarseness, mouth lesions, mouth pain, sore throat, difficulty swallowing, neck pain, abnormal hearing, headache(s), other, lip swelling, throat swelling or tongue swelling Resp Respiratory: Positive for shortness of breath; no cough, change in phlegm color, chest congestion, excessive phlegm production, hemoptysis, pain on inspiration, pain with cough, snoring, stridor, other or wheezing Cardio Cardiology: Positive for irregular heart rhythm (hx of - not current); no chest pain at rest, chest pain with exertion, leg pain with exertion, shortness of breath, dyspnea on exertion, generalized swelling, lightheadedness, orthopnea, radiating jaw, neck or arm pain, fast heart rate, slow heart rate, palpitations, other or excessive sweating Gastro GI: No abdominal pain, belching, bloating, change in bowel habits, change in stool character, coffee ground emesis, constipation, cramping, diarrhea, heartburn, difficulty swallowing, feeling full early, excessive flatus, incontinent of stools, Vomiting blood/hematemesis, blood in stool, loose stools, Black,tarry stools, nausea/dyspepsia, pain with swallowing, vomiting or other Genitourinary Male: No difficulty urinating, burning urination, painful urination, urinary incontinence, urinary frequency, urinary urgency, urinary hesitancy, urinary retention, blood in urine, Frequent nighttime urination/ nocturia, post void dribbling, suprapubic fullness, side pain, sexual problems, genital lesions, genital itching, erectile dysfunction, penile discharge, difficulty with ejaculations, blood in semen, scrotal swelling, testicle lump, testicle pain or other Musc Musculoskeletal: No joint pain, back pain, deformity, joint swelling, limited range of motion, loss of height, muscle cramps, muscle weakness, decreased muscle mass, body aches, neck pain, radiating pain into limb, stiffness, other, abnormal walking, numbness or tingling Skin Skin: No acne, hair loss, change in hair, nail changes, boil, change in skin color, dry skin, redness, excessive hair growth, yellowing of the skin, lesions, rash, skin pain, skin ulcer, sores, skin swelling, wounds, other or itching Breast Breast: No other Neuro Neurology: No abnormal walking, abnormal hearing, abnormal movements, abnormal speech, unsteady gait/balance, dizziness, weakness, frequent falls, headache(s), lack of coordination, loss of vision, numbness, tingling, visual disturbances, restless legs, fainting, tremor(s), other, behavioral changes, confusion or memory loss Psych Psychiatric: No abnormal sleep pattern, No lack of enjoyment, Positive for anxiety, No behavioral changes, No change in appetite, No confusion, No depression, No difficulty concentrating, No hopelessness, No irritability, No memory loss, No mood swings, No panic attacks, No paranoia, No Thoughts of harming yourself/Others, No hallucinations, No other Endo Endocrine: No change in body appearance, cold intolerance, excessive sweating, fatigue, flushing, heat intolerance, increased thirst/drinking, increased hunger, increased urination or other Aller/Imm Allergy/Immunologic: No food intolerance, itchy eyes, lip swelling, seasonal allergy symptoms, throat swelling, tongue swelling, hives, wheezing or other Matias/Lymp Hematologic/Lymphatic: No easy bleeding, easy bruising, enlarged lymph nodes or other Exam Const General: cooperative, comfortable, no acute distress Nutritional Appearance: average body habitus, obese Orientation: alert, oriented x3 Limitations: mental status not altered Resp Effort AND Inspection: normal respiratory effort, able to speak in complete sentences, normal respiratory pattern, symmetric chest movement, no audible wheezes, no cough Auscultation: Bilateral: Clear to Auscultation Cardio Palpation: normal PMI Rate: regular rate Heart Sounds: S1 normal, S2 normal, normal S1 and S2, no click, no gallops, no murmurs, no rubs Musc Musculoskeletal: No muscle weakness Neuro General: alert, awake, oriented x3, CN's II-XI intact bilaterally Speech: speech normal Gait: normal gait Motor: muscle tone normal throughout Extrem General: normal to inspection, normal gait, no edema, no pedal edema Psych Appearance: grossly normal Mental Status: mental status grossly normal Affect: indifferent, anxious affect Speech and Movement: restless, speech clear Attitude: guarded, cooperative Thought Process: normal Thought Content: normal Assessment AND Plan 1. PAF (paroxysmal atrial fibrillation) I48.0 Plan Based on physical exam, the patient appears to be in sinus rhythm. His heart rate is controlled and he is anticoagulated on his factor X inhibitor. Patient's symptoms have improved since being cardioverted. EKG ordered to be done today. Patient is to follow-up with cardiology as scheduled, or sooner if needed. Orders Orders: 2. Anxiety F41.9 Plan Patient is agreeable to increasing the dose of venlafaxine to 150 mg daily to start today. Discussed red flag symptoms that require urgent medical attention, patient will follow-up in 2 months or sooner if needed. 3. Essential hypertension I10 Plan Patient's amlodipine was previously decreased to 5 mg daily due to hypotension. His blood pressure is stable at today's office visit. Discussed risk factor reduction and lifestyle modifications. Discussed dietary changes that should be considered which include reducing the amount of sodium intake. Plan Detail Other Medications New: Changed: Discontinued: Coding Level of Care Code Off vis,est,level 3 Diagnoses PAF (paroxysmal atrial fibrillation) I48.0 Anxiety F41.9 Essential hypertension I10 Hypertension type: essential hypertension 02/26/18 1503 <Electronically signed by Tawanda KLEIN> Date Tawanda KLEIN Cosigner Signature: Date (if applicable) CC: Rosalinda Lee 12 LEAD ELECTROCARDIOGRAM Observed: 02/26/2018 Status: F Source: [place] 2:01 PM [facility] REPOSITORY [facility] Cardiovascular Services [facility] [place] [address] 12 Lead EKG 02/24/18 0829 MR#: [id number] Acct: [id number] Name: ATTILA DEL CID Rep #: [id number] : 1970 48 From: Asael Hale MD Attending Dr: Status: DEP ER Ordering Dr: Isaac Ahmadi MD Date: 02/24/18 Location: ED Sex: M C Admitted: Test Reason : POST CARDIOVERSION Blood Pressure : / mmHG Vent. Rate : 097 BPM Atrial Rate : 097 BPM P-R Int : 158 ms QRS Dur : 082 ms QT Int : 328 ms P-R-T Axes : 002 000 -04 degrees QTc Int : 416 ms Normal sinus rhythm Normal ECG Confirmed by ASAEL HALE MD ([id number]), dictionary editor RICCO LEWIS ([id number]) on 02/26/2018 2:00:56 PM Referred By: CARRIE Confirmed By:ASAEL HALE MD 02/26/18 1400 Date Asael Hale MD CC: Nyla Bearden MD; Isaac Ahmadi MD Signed 12 LEAD ELECTROCARDIOGRAM Observed: 02/26/2018 Status: F Source: [place] 2:00 PM [facility] REPOSITORY [facility] Cardiovascular Services [address] [place] [id number] 12 Lead EKG 02/24/18 0803 MR#: [id number] Acct: [id number] Name: ATTILA DEL CID Rep #: [id number] : 1970 48 From: Asael Hale MD Attending Dr: Status: DEP ER Ordering Dr: Isaac Ahmadi MD Date: 02/24/18 Location: ED Sex: M C Admitted: Test Reason : CP Blood Pressure : / mmHG Vent. Rate : 158 BPM Atrial Rate : 148 BPM P-R Int : 000 ms QRS Dur : 074 ms QT Int : 272 ms P-R-T Axes : 000 008 003 degrees QTc Int : 441 ms Atrial fibrillation Nonspecific ST and T wave abnormality Abnormal ECG Confirmed by ASAEL HALE MD ([id number]), dictionary editor RICCO LEWIS ([id number]) on 02/26/2018 1:59:57 PM Referred By: CARRIE Confirmed By:ASAEL HALE MD 02/26/18 1400 Date Asael Hale MD CC: Nyla Bearden MD; Isaac Ahmadi MD Signed 12 LEAD ELECTROCARDIOGRAM Observed: 02/24/2018 Status: F Source: [place] 1:54 PM [facility] Cardiovascular Services [address] [place] [address] 12 Lead EKG 02/20/18 1937 MR#: [id number] Acct: [id number] Name: ATTILA DEL CID Rep #: [id number] : 1970 48 From: Jesse Stokes MD Attending Dr: Status: DEP ER Ordering Dr: Irwin Alejo MD Date: 02/20/18 Location: ED Sex: M C Admitted: Test Reason : CP Blood Pressure : / mmHG Vent. Rate : 089 BPM Atrial Rate : 089 BPM P-R Int : 156 ms QRS Dur : 086 ms QT Int : 344 ms P-R-T Axes : 026 027 030 degrees QTc Int : 418 ms Normal sinus rhythm Normal ECG Confirmed by STEVEN CONNOR, JESSE ([id number]), dictionary editor RICCO LEWIS ([id number]) on 02/24/2018 1:54:22 PM Referred By: Confirmed By:JESSE STOKES MD 02/24/18 1354 Date Jesse Stokes MD CC: Nyla Bearden MD; Irwin Alejo MD Signed DISCHARGE INSTRUCTION Observed: 02/24/2018 Status: F Source: [place] 9:00 AM [facility] Medical Records Department [address] [place] [address] Discharge Instruction 02/24/18 0859 MR#: [id number] Acct: [id number] Name: ATTILA DEL CID Rep #: [id number] : 1970 48 From: Isaac Ahmadi MD PCP: Nyla Bearden MD Status: REG ER ED Disposition - Plan for ED Patient: Disposition: Home or Assisted Living Chief Complaint: Palpitations Instructions: ED Afib Referrals: Nyla Bearden MD [Primary Care Provider] - What to do if you have Problems For any increased pain, shortness of breath, bleeding, nausea or vomiting, chest pain, or any unexpected problems, contact your Primary Care Provider. Call [facility] ([phone]) or report to the closest Emergency Room. Call 911 if necessary. 02/24/18 0900 <Electronically signed by Isaac Ahmadi MD> Date Isaac Ahmadi MD Cosigner Signature (If Indicated): Date CC: Nyla Bearden MD EMERGENCY DEPARTMENT Observed: 02/24/2018 Status: F Source: [place] SUMMARY 8:59 AM [facility] Medical Records Department [address] [place] [address] Emergency Department Summary 02/24/18 0826 MR#: [id number] Acct: [id number] Name: ATTILA DEL CID Rep #: [id number] : 1970 48 From: Isaac Ahmadi MD PCP: Nyla Bearden MD Status: REG ER - ER Visit Summary Date of Service: 02/24/18 Chief Complaint: Palpitations, A. fib History of Present Illness: The patient is a 48 M who presents with palpitations. He woke up with them this morning. He states when he went to bed last night he was normal and had no symptoms. He currently feels short of breath. His chest feels tight. He has a history of paroxysmal atrial fibrillation. He has had an ablation and cardioversion in the past. He is on Eliquis. He sees Dr. Stokes for his cardiology Physical Examination: Vital signs reviewed. HEENT exam unremarkable. Heart is really irregular and tachycardic without murmurs. Lungs are clear to auscultation. Abdomen is soft and nontender. Extremities reveal no edema. Peripheral pulses are equal. Skin exam normal. Neurologic exam normal. Test Results: EKG was atrial fibrillation with rate 150. No ST changes. Laboratory studies are unremarkable. Chest x-ray unremarkable Emergency Department Course and Treatment: I spoke with Dr. Stokes. He saw the patient on Saturday. He states that the patient has atypical chest pain. He recommended electrical cardioversion for this patient and discharged home if he was able to be converted. Patient was sedated with 50 mg of propofol. 100 J of synchronized cardioversion was performed and the patient converted to a normal sinus rhythm. He is complaining of chest pain afterwards that he was given Toradol. Patient will be discharged home to continue his home medications Treatment Plan: [] Disposition: Discharge Impression: Atrial fibrillation with RVR Procedural sedation by ED physician Electrical cardioversion by ED physician by second ED physician This note was generated with [employer] dictation software. It may contain incorrect words, spelling, and punctuation that were not noted in review of the chart prior to signing ED Disposition - Plan for ED Patient: Chief Complaint: Palpitations Referrals: Nyla Bearden MD [Primary Care Provider] - What to do if you have Problems For any increased pain, shortness of breath, bleeding, nausea or vomiting, chest pain, or any unexpected problems, contact your Primary Care Provider. Call [facility] ([phone]) or report to the closest Emergency Room. Call 911 if necessary. 02/24/18 0859 <Electronically signed by Isaac Ahmadi MD> Date Isaac Ahmadi MD Cosigner Signature (If Indicated): Date CC: Nyla Bearden MD CBC W/DIFF, AUTOMATED Collected: 02/24/2018 Status: F Source: [place] 8:11 AM [facility] TYPE CODE TESTS RESULT OUT OF RANGE REFERENCE UNITS LAB L100.1000 4.4-11.0 K/mm3 High WBC 13.4 LAB L100.1200 4.6-6.2 M/mm3 Normal RBC 6.06 LAB L100.1300 13.0-16.5 g/dl Normal HGB 16.0 LAB L100.1400 40-54 % Normal HCT 48.8 LAB L100.1500 80-94 fL Normal MCV 80.5 LAB L100.1600 27.0-32.0 pg Low MCH 26.4 LAB L100.1700 32-36 g/gl Normal MCHC 32.8 LAB L100.1810 11.6-14.6 % High RDW CV 16.2 LAB L100.1820 35.1-43.9 fl High RDW SD 47.2 LAB L100.1900 150-450 K/mm3 Normal PLT 352 LAB L100.2000 6.2-12.0 fl Normal MPV 9.1 LAB L100.2100 47-70 % Normal NEUT% 65.4 LAB L100.2200 19-41 % Normal LY% 25.3 LAB L100.2300 0-10 % Normal MONO% 8.6 LAB L100.2400 0-5 % Normal EO% 0.4 LAB L100.2500 0-1 % Normal BASO% 0.1 LAB L100.2550 0.0-0.9 % Normal IM GRAN % 0.200 Result Comment: IG% - Immature Granulocytes (promyelocytes, myelocytes and metamyelocytes) > 1% indicates that a LEFT SHIFT is Present. LAB L100.2620 2.0-7.7 X10 3/uL High Absolute Neut 8.8 LAB L100.2720 0.83-4.51 X10 3/ul Normal Absolute Lymph 3.39 Performed By: #### L100.0100 #### [facility] [address], [address] BASIC METABOLIC Collected: 02/24/2018 Status: F Source: [place] PROFILE (BMP) 8:11 AM [facility] Order Comment: 'TROP' Serial specimen #1, #2, #3, or #4: 1 TYPE CODE TESTS RESULT OUT OF RANGE REFERENCE UNITS LAB L501.0100 74-106 mg/dL Normal GLU 90 Result Comment: Please note revised GLUCOSE reference range effective 2017. LAB L501.1000 7-18 mg/dL Normal BUN 17 LAB L501.1100 0.70-1.30 mg/dL Normal CREAT,SERUM 0.88 Result Comment: The validity of the calculated GFR AND GFRAA in patients over 70 years has not been determined. Clinical correlation is essential. LAB L501.1110 >60 mL/min Normal EST GFR 98 Result Comment: Non- GFR Calc LAB L501.1115 >60 mL/min Normal EST GFR - AA 118 Result Comment: GFR Calc LAB L501.1255 ml/min Normal Estimated CRCL 109.34 LAB L501.1300 10-20 RATIO BUN/CRE Normal 19.2 LAB L501.2200 8.5-10 mg/dL .1 CA Normal 8.9 LAB L501.5300 136-14 mmol/L 5 NA Normal 139 LAB L501.5600 3.5-5. mmol/L 1 K Normal 4.2 Result Comment: Slight Hemolysis, Result may be falsely increased. LAB L501.5900 98-107 mmol/L Normal CL 105 LAB L501.6100 21.0-32.0 mmol/L Normal CO2 27.0 LAB L501.6200 5-15 Normal 7 GAP Performed By: #### L500.2500, L501.4010 #### [facility] [address] [place], [address] TROPONIN-I Collected: 02/24/2018 Status: F Source: [place] 8:11 AM [facility] Order Comment: 'TROP' Serial specimen #1, #2, #3, or #4: 1 TYPE CODE TESTS RESULT OUT OF RANGE REFERENCE UNITS LAB L501.4010 <0.06 ng/mL Normal < 0.02 TROPONIN-I Result Comment: TROPONIN-I EXPECTED VALUES <0.05 NEGATIVE 0.06 - 0.59 AT RISK OF MA > OR = 0.60 SUGGEST MA Performed By: #### L500.2500, L501.4010 #### [facility] [address] [place], [address] CHEST 1 VIEW Observed: 02/24/2018 Status: F Source: [place] (PORTABLE) 8:07 AM [facility] Imaging Services [address] [place] [address] Chest 1 View (Portable) MR#: [id number] Acct: [id number] Name: ATTILA DEL CID Rep #: [id number] : 1970 M 48 From: Pablito Young MD PCP: Nyla Bearden MD Status: REG ER Study: Chest 1 View (Portable) Date of Exam: 02/24/18 Exam# [id number] Ordering Dr: Isaac Ahmadi MD STUDY: X-RAY CHEST REASON FOR EXAM: Male, 48 years old. Chest pain. TECHNIQUE: Single AP portable view of the chest. COMPARISON: Comparison is made with prior study dated February 17, 2018. FINDINGS: EKG electrodes are seen. Hyperinflation. The lungs are clear. There is no demonstrated pleural abnormality. Normal size heart. Normal mediastinum and ruben. Normal visualized pulmonary arteries. Normal visualized aortic arch and descending thoracic aorta. Normal visualized thoracic spine. Normal visualized ribs, clavicles, and shoulders. There is no demonstrated abnormality of the visualized soft tissue structures of the upper abdomen. RAD/Chest 1 View (Portable) IMPRESSION: Normal x-ray examination of the chest. Electronically Signed: Pablito Young MD at 8:44 EDT Tel [phone], Service support , CC: Nyla Bearden MD; Isaac Ahmadi MD 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: Signed 12 LEAD ELECTROCARDIOGRAM Observed: 02/21/2018 Status: F Source: [place] 3:15 PM [facility] Cardiovascular Services [address] [place] [address] 12 Lead EKG 02/17/18 1919 MR#: [id number] Acct: [id number] Name: ATTILA DEL CID Rep #: [id number] : 1970 48 From: Jesse Stokes MD Attending Dr: Status: DEP ER Ordering Dr: Rosalba Stein MD Date: 02/17/18 Location: ED Sex: M C Admitted: Test Reason : CP Blood Pressure : / mmHG Vent. Rate : 078 BPM Atrial Rate : 078 BPM P-R Int : 142 ms QRS Dur : 080 ms QT Int : 360 ms P-R-T Axes : 016 003 -08 degrees QTc Int : 410 ms Normal sinus rhythm Normal ECG Confirmed by JESSE STOKES MD ([id number]), dictionary editor RICCO LEWIS ([id number]) on 02/21/2018 3:14:37 PM Referred By: VITALIY/ALEX Confirmed By:JESSE STOKES MD 02/21/18 1514 Date Jesse Stokes MD CC: Rosalba Stein MD; Nyla Bearden MD Signed 12 LEAD ELECTROCARDIOGRAM Observed: 02/21/2018 Status: F Source: [place] 3:15 PM [facility] Cardiovascular Services [address] [place] [address] 12 Lead EKG 02/17/18 2204 MR#: [id number] Acct: [id number] Name: ATTILA DEL CID Rep #: [id number] : 1970 48 From: Jesse Stokes MD Attending Dr: Status: DEP ER Ordering Dr: Rosalba Stein MD Date: 02/17/18 Location: ED Sex: M C Admitted: Test Reason : REPEAT Blood Pressure : / mmHG Vent. Rate : 070 BPM Atrial Rate : 070 BPM P-R Int : 146 ms QRS Dur : 084 ms QT Int : 378 ms P-R-T Axes : -10 004 -08 degrees QTc Int : 408 ms Normal sinus rhythm Normal ECG Confirmed by JESSE STOKES MD ([id number]), dictionary editor RICCO LEWIS ([id number]) on 02/21/2018 3:14:54 PM Referred By: ALEX Confirmed By:JESSE STOKES MD 02/21/18 1514 Date Jesse Stokes MD CC: Rosalba Stein MD; Nyla Bearden MD Signed CARDIOLOGY VISIT Observed: 02/21/2018 Status: F Source: [place] REPORT 10:44 AM [facility] [address] [place] [address] OFFICE VISIT Date of Service: 02/21/18 MR#: [id number] Acct: [id number] Name: ATTILA DEL CID Rep #: [id number] : 1970 Provider: Jesse Stokes MD Age/Sex: 48/M Location: [facility] Status: Signed HPI HPI Chief Complaint: Follow-up visit. Details: ATTILA DEL CID, is a 48 M who presents to the office today for a follow-up visit. He is a gentleman with a history of supraventricular tachycardia status post SVT ablation over 20 years ago he had had palpitations undergone multiple cardioversion procedures and was noted to have atrial fibrillation with rapid ventricular response rate and was sent to the [facility] where he underwent a repeat ablation. As you know he also has a 5 cm ascending aortic aneurysm. After the ablation he tells me that he has continued to have some chest discomfort he had presented to the emergency room and there was no evidence of pericardial effusion. He continues to have neck discomfort and chest discomfort sometimes which are sharp and other times dull. He had been placed on colchicine as well as nonsteroidal anti-inflammatory agents but it appears that he has discontinued both of these. His echocardiogram was remembered demonstrated an ejection fraction of 60-65% with mild pulmonary hypertension. His physical exam today demonstrates clear lung jackson regular rate and rhythm and no pedal edema. There is no pericardial friction rub noted. Intake Vital Signs02/21/18 Height 5 ft 11 in 02/21/18 Weight: 239 lb 02/21/18 Body Mass Index (BMI) 33.3 02/21/18 Blood Pressure 136/108 02/21/18 Blood Pressure Location Lt brachial Intake Visit Reasons: 3 M FU Material Mixer Required: No Accompanied by: None Is patient in pain?: Yes (chest discomfort) Pain scale (1- 10): 4 Allergies clonidine Allergy (Intermediate, Verified 02/21/18 10:19) rash levofloxacin [From Levaquin] Allergy (Verified 02/21/18 10:19) Rash Penicillins Allergy (Verified 02/21/18 10:19) Hives bupropion Adverse Reaction (Intermediate, Verified 02/21/18 10:19) vomiting celecoxib [From Celebrex] Adverse Reaction (Intermediate, Verified 02/21/18 10:19) vomiting eletriptan Adverse Reaction (Intermediate, Verified 02/21/18 10:19) Vomiting topiramate [From Topamax] Adverse Reaction (Intermediate, Verified 02/21/18 10:19) vomiting fentanyl Adverse Reaction (Unknown, Verified 02/21/18 10:19) unknown acetaminophen [From Vicodin] Adverse Reaction (Verified 02/21/18 10:19) Nausea hydrocodone bitartrate [From Vicodin] Adverse Reaction (Verified 02/21/18 10:19) Nausea Medications Pantoprazole Sodium [Protonix] 40 mg PO DAILY 04/22/16 [History Confirmed 02/21/18] Carvedilol [Coreg] 25 mg PO BID 01/31/17 [History Confirmed 02/21/18] Albuterol Inhaler [Ventolin Hfa] 1 - 2 puff INHALATION Q4H PRN PRN #1 inhaler 07/15/17 [Rx Confirmed 02/21/18] Apixaban [Eliquis] 5 mg PO BID 09/21/17 [History Confirmed 02/21/18] furosemide 40 mg tablet 40 mg PO QDAY #90 tab 10/29/17 [Rx Confirmed 02/21/18] lisinopril 40 mg tablet 40 mg PO QDAY #90 tab 10/29/17 [Rx Confirmed 02/21/18] atorvastatin 20 mg tablet 20 mg PO QDAY #60 tab 11/11/17 [Rx Confirmed 02/21/18] gabapentin 100 mg capsule 100 mg PO QHS #30 cap 01/14/18 [Rx Confirmed 02/21/18] meclizine 12.5 mg tablet 12.5 mg PO QODAY PRN #30 tab 01/14/18 [Rx Confirmed 02/21/18] venlafaxine ER 75 mg tablet,extended release 24 hr 75 mg PO QDAY #30 tab 01/14/18 [Rx Confirmed 02/21/18] amlodipine 5 mg tablet 5 mg PO .q day tab 01/21/18 [History Confirmed 02/21/18] tamsulosin 0.4 mg capsule 0.4 mg PO QDAY #90 cap 02/18/18 [Rx Confirmed 02/21/18] colchicine 0.6 mg tablet 0.6 mg PO QDAY #30 tab 02/21/18 [Rx Confirmed 02/21/18] Ejection fraction %: 65 to 70 (65% per echo 10/15/2017 at [facility] Medical History Ascending aorta dilatation (Chronic) SVT (supraventricular tachycardia) (Acute) LORETTA (obstructive sleep apnea) (Acute) Atherosclerotic heart disease of [place] coronary artery without angina pectoris (Chronic) Nephrolithiasis (Chronic) HTN (hypertension) (Chronic) Anxiety (Chronic) PAF (paroxysmal atrial fibrillation) (Chronic) GERD (gastroesophageal reflux disease) (Chronic) Obesity (BMI 30-39.9) (Chronic) BPPV (benign paroxysmal positional vertigo) (Chronic) HLD (hyperlipidemia) (Chronic) Thoracic aortic aneurysm without rupture (Chronic) Surgical History History of left heart catheterization (Chronic) History of cardiac radiofrequency ablation (Resolved) H/O arthroscopic knee surgery (Resolved) History of back surgery (Resolved) History of right knee surgery (Resolved) Family History Brother Hypertension Mother Heart disease Colon cancer Sister Diabetes Sister Diabetes Sister Diabetes Social History Smoking Status: Former smoker alcohol intake: never substance use type: does not use caffeine: No what type of physical activity do you participate in: walking frequency: 1-2 times per week duration: 15-30 minutes/day seatbelt use: always do you feel safe at home: Yes ROS Const Const: Negative for body ache, fever(s), chills, night sweats, daytime sleepiness, difficulty sleeping, weight gain, weight loss, increased appetite, poor appetite, anorexia, other, frequent falls, headache(s), weakness, fatigue or excessive sweating Eyes Eyes: Negative for blind spots, loss of peripheral vision, transient loss of vision, change in vision, floaters, tunnel vision, other, blurry vision or double vision ENT ENT: Positive for neck pain; negative for hearing loss, tinnitus, Nosebleed/epistaxis, post nasal drip, bleeding gums, hoarseness, dry mouth, other, balance problems, dizziness, headache(s), tongue swelling or lip swelling Cardio Chest Pain: Yes Frequency: daily Character: other (heavy) Location: mid sternal Duration: hours (30 seconds up to an hour), brief (30 seconds up to an hour) Relieving: rest Palpitations: No Edema: None Muscle aches with walking: None Resp Respiratory: Positive for SOB with activity; negative for SOB at rest, SOB orthopnea\SOB lying down, Cough, Coughing up blood/hemoptysis, chest congestion, pain on inspiration, snoring, stridor, wheezing, crackles, paroxysmal nocturnal dyspnea or other GI GI: Positive for nausea; negative vomiting, heartburn, constipation, belching, bloating, cramping, vomiting blood/hematemesis, bright, red blood in stools, black,tarry stools, loose stools, Difficulty Swallowing or other : Negative for hematuria, frequent nighttime urination/ nocturia, erectile dysfunction or abnormal vaginal bleeding Musc Musc: Negative for muscle aches/ myalgia, muscle weakness, joint pain or balance problems Skin Skin: Negative redness, non-healing lesions, unusual bruising, skin ulcer, wounds, jaundice, other or rash Neuro Neuro: Negative for dizziness, lightheadedness, near syncope, syncope, orthostatic symptoms, frequent falls, headache(s), weakness, confusion, memory loss, restless legs, blurry vision, double vision, vertigo, seizures, lack of coordination or other Matias Hematologic/Lymphatic: Negative for easy bleeding, easy bruising, enlarged lymph nodes or other Endo Endo: Negative for fatigue, cold intolerance, heat intolerance, excessive sweating, flushing, increased thirst/drinking, increased hunger, hair loss, hair growth or other Psych Psych: Positive for anxiety; negative for depression, thoughts of harming anyone, thoughts of harming yourself, visual hallucinations, panic attacks or audible hallucinations Allergy Allergy/Immunology: Negative for throat swelling, Negative for tongue swelling, Negative for hives, Negative for rash, Negative for lip swelling Cardiology Exam Const Appearance: cooperative, healthy appearing, well developed, well groomed and no acute distress Nutritional Appearance: well nourished and average body habitus Orientation: alert, awake and oriented x3 Head Head: normal to inspection, normocephalic and atraumatic Ears: hearing grossly normal bilaterally and external ears normal Nose: external nose normal, nasal mucous membranes and turbinates normal, nares normal, septum normal, no nasal discharge Face and Sinus: face symmetric Mouth: oral mucosae normal, tongue normal, oropharynx normal and moist mucous membranes Teeth and gingiva: dentition normal Throat: posterior oropharynx normal, tonsils normal and uvula midline Eyes General: appearance normal, both eyes and all related structures Eyelids: eyelids normal Conjunctivae: conjunctivae normal Pupils: PERRL, normal by confrontation and accommodation normal EOM: EOM intact bilaterally Neck Neck: normal visual inspection, trachea midline and no JVD JVD: +5 Carotids: normal carotid upstroke and bounding pulses Chest Chest inspection: normal inspection of the chest, symmetric chest movement and normal respiratory effort Auscultation: Bilateral: Clear to Auscultation Cardio Palpation: normal PMI Rate: regular rate Rhythm: regular rhythm Heart sounds: S1 normal, S2 normal and normal, physiologic split S2; negative rub, gallop or murmur GI GI: normal to inspection, soft, no hepatosplenomegaly and bowel sounds present Neuro General: alert, awake, oriented x3, no focal sensory deficit, gait normal and moves all extremities Skin Skin: no rashes or lesions noted Extremities Pulses: Normal: Right Femoral Pulse, Left Femoral Pulse, Right Dorsalis Pedis Pulse, Left Dorsalis Pedis Pulse, Right Posterior Tibial Pulse, Left Posterior Tibial Pulse, Right Radial Pulse, Left Radial Pulse Lower Extremity Edema: None: Bilateral Musculoskel Musculoskeletal: No joint tenderness Psych Psychological: normal affect Assessment AND Plan 1. PAF (paroxysmal atrial fibrillation) I48.0 Plan He continues to have continued chest discomfort. The above was evaluated and an echocardiogram which was noted to be normal this was post his age of fibrillation ablation. I would recommend that we put him on ibuprofen 200 mg 3 times a day for approximately a week. I would like him to be started on colchicine once again at 0.6 mg once a day. His aspirin can be held in the interim and he will continue on his PPI inhibitor. I suspect his chest pain may be coming from his elevated pulmonary pressures as well as his diastolic function. I would recommend adding Lasix 40 mg a day to his regimen, and increasing his lisinopril to 40 mg a day. He continues to keep a diary of his paroxysms of atrial fibrillation they appear to be largely short-lived less than a minute. This has been sent to the [facility] public information coordinator. 2. Essential hypertension I10 Plan His blood pressure appears to be under good control on the current medical therapy and to be continued without making any changes. 3. Pure hypercholesterolemia E78.00 Plan He will continue on the statin and we will monitor the above. 4. Ascending aorta dilatation I77.810 Plan His ascending aorta measures 5 cm and will continue to monitor this with serial CAT scans as appropriate. No changes will be made at this time. 5. Chest pain, unspecified type R07.9 Plan He continues to have chest pain which is unspecified. Appears to be secondary to possible pericarditis. As you know he did have normal coronary arteries which were documented less than 2 years ago and his descending aorta has been fairly stable. My recommendation would be for him to resume his ibuprofen and then also start colchicine 0.6 mg once a day. He should continue this for at least 3 months. Plan Detail Other Medications New: Discontinued: Follow Up 6 Months ([facility]) Coding Level of Care Code Off vis,est,level 4 Diagnoses PAF (paroxysmal atrial fibrillation) I48.0 Essential hypertension I10 Hypertension type: essential hypertension Pure hypercholesterolemia E78.00 Hyperlipidemia type: pure hypercholesterolemia Ascending aorta dilatation I77.810 Chest pain, unspecified type R07.9 Chest pain type: unspecified Coding Level of Care Code Off vis,est,level 4 Diagnoses PAF (paroxysmal atrial fibrillation) I48.0 Essential hypertension I10 Hypertension type: essential hypertension Pure hypercholesterolemia E78.00 Hyperlipidemia type: pure hypercholesterolemia Ascending aorta dilatation I77.810 Chest pain, unspecified type R07.9 Chest pain type: unspecified 02/21/18 1044 <Electronically signed by Jesse Stokes MD> Date Jesse Stephen Signature: Date (if applicable) CC: Nyla Bearden MD EMERGENCY DEPARTMENT Observed: 02/20/2018 Status: F Source: [place] SUMMARY 8:30 PM [facility] Medical Records Department [address] [place] [address] Emergency Department Summary 02/20/182024 MR#: [id number] Acct: [id number] Name: ATTILA DEL CID Rep #: [id number] : 1970 48 From: Irwin Alejo MD PCP: Nyla Bearden MD Status: REG ER - ER Visit Summary Date of Service: 02/20/18 Chief Complaint: Left-sided chest pain shortness of breath A. fib History of Present Illness: The patient is a 48 M who has been seen twice within the past week. He was seen most recently for left-sided sharp tight test discomfort with shortness of breath. He and his states he had a cardiac cath approximately 12 months ago at [facility] and it was normal. Even though he has a normal cardiac cath he reports prior MA. He has no stents. He did have an ablation at [facility] for A. fib. This pain started several hours ago. This is similar to the pain he had February 17. His workup at that time was negative and included a chest x-ray and CTA of the chest. He was seen on February 16 and diagnosed with renal lithiasis. He believes that renal lithiasis is causing his chest pain. He appears anxious. He denies fever, chills night sweats. Denies any ocular, visual or auditory symptoms. He denies any abdominal pain. He denies leg pain, swelling or discoloration or he has no history of PE or DVT. Reports available from the February 16 and February 17 visits were reviewed. Physical Examination: Vital signs are marked for slight elevation blood pressure of 135/85. He appears anxious. BMI is 33.7. HEENT is unremarkable. Heart is regular without murmur, gallop or rub. Lungs are clear to auscultation with good air bilaterally. He has no reproducible chest pain. Abdomen is soft nontender. There is no asymmetry, swelling, discoloration, leg vein distention, palpable cords or tenderness along the distribution of the deep venous system. Test Results: EKG was obtained and reveals a normal sinus rhythm rate of 89. Troponin with pain less than 0.02. Since this pain is similar to the pain he experienced on the his workup was negative at that time did not believe a repeat x-ray is of any value since CTA. And there is no indication for repeat CBC or BMP. Emergency Department Course and Treatment: In light of patient's past medical history and complaints EKG and troponin were obtained. Treatment Plan: Since his workup again is negative and there was thought that this is related to anxiety he will be discharged to home to follow-up with Dr. Bearden. Disposition: Discharge to home in stable condition with spouse Impression: Left-sided chest pain of unknown etiology History of CVA History of coronary artery disease History of hypertension History of hypercholesterolemia History of atrial fibrillation This note was generated with [employer] dictation software. It may contain incorrect words, spelling, and punctuation that were not noted in review of the chart prior to signing ED Disposition - Plan for ED Patient: Disposition: Home or Assisted Living Chief Complaint: Chest Pain Instructions: ED Chest Pain NonCardiac Referrals: Nyla Bearden MD [Primary Care Provider] - 3-5 Days What to do if you have Problems For any increased pain, shortness of breath, bleeding, nausea or vomiting, chest pain, or any unexpected problems, contact your Primary Care Provider. Call [facility] ([phone]) or report to the closest Emergency Room. Call 911 if necessary. 02/20/182029 <Electronically signed by Irwin Alejo MD> Date Irwin Alejo MD Cosigner Signature (If Indicated): Date CC: Nyla Bearden MD TROPONIN-I Collected: 02/20/2018 Status: F Source: [place] 7:30 PM [facility] Order Comment: 'TROP' Serial specimen #1, #2, #3, or #4: 1 TYPE CODE TESTS RESULT OUT OF RANGE REFERENCE UNITS LAB L501.4010 <0.06 ng/mL Normal < 0.02 TROPONIN-I Result Comment: TROPONIN-I EXPECTED VALUES <0.05 NEGATIVE 0.06 - 0.59 AT RISK OF MA > OR = 0.60 SUGGEST MA Performed By: #### L501.4010 #### [facility] [address] [place], [address] INTERNAL MEDICINE Observed: 02/18/2018 Status: F Source: [place] OFFICE VISIT 5:03 PM [facility] [address] [place] [address] [place] [address] OFFICE VISIT Date of Service: 02/18/18 MR#: [id number] Acct: [id number] Name: ATTILA DEL CID Rep #: [id number] : 1970 Provider: Tawanda Colon NP Age/Sex: 48/M Location: [facility] [place] Status: Signed Intake Vital Signs02/18/18 Height 5 ft 11 in 02/18/18 Weight: 243 lb 02/18/18 Body Mass Index (BMI) 33.9 02/18/18 Blood Pressure 122/85 Intake Visit Reasons: FU ER 02/16 KIDNEY STONE Chief Complaint: F/U ER Kidney stone Is patient in pain?: Yes (chest) Pain scale (1-10): 5 Allergies clonidine Allergy (Intermediate, Verified 02/18/18 14:56) rash levofloxacin [From Levaquin] Allergy (Verified 02/18/18 14:56) Rash Penicillins Allergy (Verified 02/18/18 14:56) Hives bupropion Adverse Reaction (Intermediate, Verified 02/18/18 14:56) vomiting celecoxib [From Celebrex] Adverse Reaction (Intermediate, Verified 02/18/18 14:56) vomiting eletriptan Adverse Reaction (Intermediate, Verified 02/18/18 14:56) Vomiting topiramate [From Topamax] Adverse Reaction (Intermediate, Verified 02/18/18 14:56) vomiting fentanyl Adverse Reaction (Unknown, Verified 02/18/18 14:56) unknown acetaminophen [From Vicodin] Adverse Reaction (Verified 02/18/18 14:56) Nausea hydrocodone bitartrate [From Vicodin] Adverse Reaction (Verified 02/18/18 14:56) Nausea Medications Pantoprazole Sodium [Protonix] 40 mg PO DAILY 04/22/16 [History Confirmed 02/18/18] Carvedilol [Coreg] 25 mg PO BID 01/31/17 [History Confirmed 02/18/18] Albuterol Inhaler [Ventolin Hfa] 1 - 2 puff INHALATION Q4H PRN PRN #1 inhaler 07/15/17 [Rx Confirmed 02/18/18] Apixaban [Eliquis] 5 mg PO BID 09/21/17 [History Confirmed 02/18/18] furosemide 40 mg tablet 40 mg PO QDAY #90 tab 10/29/17 [Rx Confirmed 02/18/18] lisinopril 40 mg tablet 40 mg PO QDAY #90 tab 10/29/17 [Rx Confirmed 02/18/18] atorvastatin 20 mg tablet 20 mg PO QDAY #60 tab 11/11/17 [Rx Confirmed 02/18/18] gabapentin 100 mg capsule 100 mg PO QHS #30 cap 01/14/18 [Rx Confirmed 02/18/18] meclizine 12.5 mg tablet 12.5 mg PO QODAY PRN #30 tab 01/14/18 [Rx Confirmed 02/18/18] venlafaxine ER 75 mg tablet,extended release 24 hr 75 mg PO QDAY #30 tab 01/14/18 [Rx Confirmed 02/18/18] amlodipine 5 mg tablet 5 mg PO .q day tab 01/21/18 [History Confirmed 02/18/18] tamsulosin 0.4 mg capsule 0.4 mg PO QDAY #90 cap 02/18/18 [Rx Confirmed 02/18/18] PFSH Medical History Ascending aorta dilatation (Chronic) SVT (supraventricular tachycardia) (Acute) LORETTA (obstructive sleep apnea) (Acute) Atherosclerotic heart disease of [place] coronary artery without angina pectoris (Chronic) Nephrolithiasis (Chronic) HTN (hypertension) (Chronic) Anxiety (Chronic) PAF (paroxysmal atrial fibrillation) (Chronic) GERD (gastroesophageal reflux disease) (Chronic) Obesity (BMI 30-39.9) (Chronic) BPPV (benign paroxysmal positional vertigo) (Chronic) HLD (hyperlipidemia) (Chronic) Thoracic aortic aneurysm without rupture (Chronic) Surgical History History of left heart catheterization (Chronic) History of cardiac radiofrequency ablation (Resolved) H/O arthroscopic knee surgery (Resolved) History of back surgery (Resolved) History of right knee surgery (Resolved) Family History Brother Hypertension Mother Heart disease Colon cancer Sister Diabetes Sister Diabetes Sister Diabetes Social History Smoking Status: Former smoker alcohol intake: never substance use type: does not use what type of physical activity do you participate in: walking frequency: 1-2 times per week duration: 15-30 minutes/day HPI HPI Chief Complaint: F/U ER Kidney stone Details: ATTILA DEL CID, is a 48 M who presents to the office today for follow-up ER visits. He has a past medical history as listed above. He was seen at [facility] emergency department on 02/16/2018 with complaints of right flank pain and was seen again on 02/17/2018 with complaint of chest pain. On 02-16, CT demonstrated that the patient had bilateral renal calculi which were nonobstructive. The patient states that he has a history of kidney stones and was placed on Flomax in the past, however is unsure why this was discontinued as he no longer takes it. He continues to have right-sided flank pain that at its worst is a 4-7 out of 10 pain. He states that he also does not drink very much fluids and that his urine is dark and concentrated. Regarding the chest discomfort, the patient states that his chest pain and tightness started yesterday after he noticed an episode of atrial fibrillation where he became short of breath and the pain radiated to his left shoulder. He states that he noted palpitations 4 times yesterday and that he has a history of paroxysmal atrial fibrillation status post ablation with Dr. keith. Cardiac workup was normal at the emergency department, however patient states that on the monitor it demonstrated that he went into atrial fibrillation at a rate of 137 bpm on the monitor. This however was not noted in the documentation. 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 Reyna the near future as well. He states that his chest is mildly tender at this time and that the pain has improved. He otherwise denies any fever, chills, vomiting, shortness of breath, syncope or presyncopal episode ROS Const Constitutional: No chills, fatigue, fever(s), frequent falls, malaise, weakness, sleep problems or change in appetite Eyes Eyes: No blurry vision, change in vision, double vision, discharge or visual disturbances ENT ENT: No abnormal hearing, ear pain, ear pressure, tinnitus or dizziness/vertigo Resp Respiratory: Positive for cough and shortness of breath; no wheezing Cardio Cardiology: Positive for chest pain at rest, chest pain with exertion, shortness of breath and fast heart rate (sometimes AND becoming more frequent); no dyspnea on exertion, generalized swelling, irregular heart rhythm, lightheadedness, orthopnea or palpitations Gastro GI: Positive for nausea/dyspepsia; no abdominal pain, change in bowel habits, constipation, diarrhea or vomiting Genitourinary Male: Positive for side pain (Rt side); no difficulty urinating, burning urination, painful urination, urinary incontinence, urinary frequency, urinary urgency, urinary hesitancy, urinary retention, blood in urine, Frequent nighttime urination/ nocturia, sexual problems, testicle lump or testicle pain Musc Musculoskeletal: No joint pain, back pain, joint swelling, limited range of motion, muscle weakness, numbness or tingling Skin Skin: No change in skin color, itching, rash or wounds Breast Breast: No breast lump or breast pain Neuro Neurology: No frequent falls, weakness, abnormal hearing, numbness, tingling, unsteady gait/balance, dizziness, loss of vision, memory loss or visual disturbances Psych Psychiatric: No memory loss, No anxiety, No change in appetite, No depression, No Thoughts of harming yourself/Others Endo Endocrine: No fatigue, heat intolerance, increased thirst/drinking, increased hunger or increased urination Aller/Imm Allergy/Immunologic: No wheezing, itchy eyes or seasonal allergy symptoms Matias/Lymp Hematologic/Lymphatic: No easy bleeding, easy bruising or enlarged lymph nodes Exam Const General: cooperative, comfortable, no acute distress Nutritional Appearance: average body habitus, well nourished Orientation: alert, oriented x3 Limitations: mental status not altered Chest Chest palpation AND inspection: normal inspection of the chest, tenderness other (Left upper chest on palpation) Resp Effort AND Inspection: normal respiratory effort, able to speak in complete sentences, normal respiratory pattern, symmetric chest movement, no audible wheezes, no cough Auscultation: Bilateral: Clear to Auscultation Cardio Palpation: normal PMI Rate: regular rate Heart Sounds: S1 normal, S2 normal, normal S1 and S2, no click, no gallops, no murmurs, no rubs General: CVA tenderness on the right Musc Musculoskeletal: No muscle weakness Psych Appearance: grossly normal Mental Status: mental status grossly normal Affect: normal affect Attitude: cooperative Thought Process: normal Assessment AND Plan 1. Chest pain R07.9 Plan See HPI, chest pain is improving since yesterday. Cardiac workup in the ER was negative. The patient does state that he often gets chest pain prior to having episodes of atrial fibrillation, which he states that he noted 4 episodes yesterday of palpitations that lasted 30-45 minutes which she assumes were episodes of atrial fibrillation. He has an appointment to follow-up with cardiology later this week and will also follow- up with Dr. Chou office to discuss whether or not another ablation is indicated. Discussed red flag symptoms of worsening chest pain that require urgent medical attention. 2. Nephrolithiasis N20.0 Plan Patient does have renal calculi bilaterally with the largest being 3 mm. Did discuss conservative measures to take such as increasing fluid intake and taking Tylenol for pain. Will restart the patient back on Flomax as this is helped prior in the past. Discussed red flag symptoms that require urgent medical attention. 3. PAF (paroxysmal atrial fibrillation) I48.0 Plan Based on physical exam, the patient does not seem to be in atrial fibrillation at this time. His heart rate is controlled and his blood pressure is controlled and he is anticoagulated. He will follow-up with his cardiology specialists in the near future 4. Essential hypertension I10 Plan Hypertension: Controlled on current medications, will not make any adjustments at this time. Will continue with current medication regimen, risk factor reduction, and lifestyle modifications. Discussed dietary changes that should be considered which include reducing the amount of sodium intake. This note was generated with [employer]ation software. It may contain incorrect words, spelling, and punctuation that were not noted in checking the note before signing. Plan Detail Other Medications New: tamsulosin (Flomax) administer 30 minutes after same me0.4 mg PO QDAY ERNIE Carrillo al each day; swallow whole with liquid; do not crush/chew/ dissolve/open Discontinued: Follow Up 1 month or sooner Coding Level of Care Code Off vis,est,level 4 Diagnoses Chest pain R07.9 Nephrolithiasis N20.0 PAF (paroxysmal atrial fibrillation) I48.0 Essential hypertension I10 Hypertension type: essential hypertension 02/18/18 1703 <Electronically signed by Tawanda KLEIN> Date Tawanda KLEIN Cosigner Signature: Date (if applicable) CC: DISCHARGE INSTRUCTION Observed: 02/18/2018 Status: F Source: [place] 1:20 AM [facility] Medical Records Department [address] [place] [address] Discharge Instruction 02/18/18 0119 MR#: [id number] Acct: [id number] Name: ATTILA DEL CID Rep #: [id number] : 1970 48 From: Rosalba Stein MD PCP: Nyla Bearden MD Status: REG ER ED Disposition - Plan for ED Patient: Chief Complaint: Chest Pain Instructions: ED Chest Pain Atypical Unkn Cause Referrals: Nyla Bearden MD [Primary Care Provider] - Jesse Stokes MD [STAFF PHYSICIAN] - What to do if you have Problems For any increased pain, shortness of breath, bleeding, nausea or vomiting, chest pain, or any unexpected problems, contact your Primary Care Provider. Call [facility] ([phone]) or report to the closest Emergency Room. Call 911 if necessary. 02/18/18 0120 <Electronically signed by Rosalba Stein MD> Date Rosalba Stein MD Cosigner Signature (If Indicated): Date CC: Nyla Bearden MD EMERGENCY DEPARTMENT Observed: 02/18/2018 Status: F Source: [place] SUMMARY 1:19 AM [facility] Medical Records Department [address] [place] [address] Emergency Department Summary 02/17/181935 MR#: [id number] Acct: [id number] Name: ATTILA DEL CID Rep #: [id number] : 1970 48 From: Rosalba Stein MD PCP: Nyla Bearden MD Status: REG ER - ER Visit Summary Date of Service: 02/17/18 Chief Complaint: Chest pain History of Present Illness: The patient is a 48 M presenting with chest pain 1 hour. He states the pain has been intermittent. It is sharp and heavy. Pain is in the left chest going to his left shoulder and jaw. He has nausea and shortness of breath associated with this. He has lightheadedness. He had palpitations. He has history of hypertension, hyperlipidemia, family history of early heart disease. He has a history of previous upper extremity DVT. He has history of ablation for A. fib in September 2017. He is not a smoker. Physical Examination: Vitals are stable. Patient is afebrile. Alert no acute distress. HEENT exam is unremarkable. Neck is supple. Lungs are clear and equal bilaterally. Heart is regular rate and rhythm. Abdomen is soft nontender nondistended. Extremities are unremarkable. Skin is warm and dry. No focal neurologic deficit. Remainder of exam is unremarkable. Emergency Department Course and Treatment: Patient is given morphine, Zofran, aspirin. EKG is sinus rate of 78 with no acute ischemic changes. CBC chemistries unremarkable. Troponin is negative. He continues to have chest pain and was given additional morphine. Repeat EKG is unchanged. Chest x-ray shows no acute process. CTA chest shows no evidence of PE or dissection, dilated ascending aorta. Pain is improved after morphine. Patient had a cardiac cath October 2016 which showed no obstructive arthrosclerosis. Chest discomfort did not appear to be of cardiac etiology at that time. Patient was seen by Dr. Stokes as follow-up from his ablation in October. At that time he was found to have noncardiac chest pain. Discussed with Dr. Stokes. He is agreeable with repeat troponin and discharge if normal. Repeat troponin is negative. He is advised to follow-up with Dr. Stokes and his primary care physician. Advised return ED for worsening complaints. Disposition: Discharge home Impression: Chest pain This note was generated with [employer] dictation software. It may contain incorrect words, spelling, and punctuation that were not noted in review of the chart prior to signing ED Disposition - Plan for ED Patient: Chief Complaint: Chest Pain Referrals: Nyla Bearden MD [Primary Care Provider] - What to do if you have Problems For any increased pain, shortness of breath, bleeding, nausea or vomiting, chest pain, or any unexpected problems, contact your Primary Care Provider. Call [facility] ([phone]) or report to the closest Emergency Room. Call 911 if necessary. 02/18/18 0119 <Electronically signed by Rosalba Stein MD> Date Rosalba Stein MD Cosigner Signature (If Indicated): Date CC: Nyla Bearden MD TROPONIN-I Collected: 02/18/2018 Status: F Source: [place] 12:35 AM [facility] Order Comment: 'TROP' Serial specimen #1, #2, #3, or #4: 2 TYPE CODE TESTS RESULT OUT OF RANGE REFERENCE UNITS LAB L501.4010 <0.06 ng/mL Normal < 0.02 TROPONIN-I Result Comment: TROPONIN-I EXPECTED VALUES <0.05 NEGATIVE 0.06 - 0.59 AT RISK OF MA > OR = 0.60 SUGGEST MA Performed By: #### L501.4010 #### [facility] [address] [place], [address] CTA CHEST W/WO Observed: 02/17/2018 Status: F Source: [place] CONTRAST 7:36 PM [facility] Imaging Services [address] [place] [address] CTA Chest W/WO Contrast MR#: [id number] Acct: [id number] Name: ATTILA DEL CID Rep #: [id number] : 1970 48 From: Carlos Atkins DO PCP: Nyla Bearden MD Status: REG ER Study: CTA Chest W/WO Contrast Date of Exam: 02/17/18 Exam# [id number] Ordering Dr: Rosalba Stein MD STUDY: CTA CHEST REASON FOR EXAM: Male, 48 years old. Chest and left arm pain, shortness of breath RADIATION DOSAGE (If Supplied By Facility): CTDIvol = ( 14.82 ) mGy, DLP = ( 673.40 ) mGycm TECHNIQUE: The examination was performed with the intravenous administration of 100ML ml of Isovue 370 contrast material. Post-processing of the angiographic images was performed, with multiplanar reformation and 3D reconstruction. Individualized dose optimization techniques were used for this CT. COMPARISON: None. FINDINGS: Normal enhancement of the main pulmonary artery and right and left pulmonary arteries. Normal enhancement of the bilateral peripheral pulmonary arteries. There is no demonstrated pulmonary embolism. Normal thoracic aorta and visualized great vessels. Prominent ascending aorta at 4.4 cm in diameter. There is no demonstrated aortic dissection. Normal heart and pericardium. Normal mediastinum. Normal hilar regions. Normal visualized trachea and bronchi. Slight bronchiectasis in the lower lobes. The lungs are well expanded. Normal pulmonary parenchyma. Normal pleura. Normal chest wall structures. Normal osseous structures. Normal visualized upper abdomen. CT/CTA Chest W/WO Contrast IMPRESSION: No demonstrated pulmonary embolism or arterial dissection. Dilated ascending aorta. Electronically Signed: Carlos Atkins DO at 20:48 EDT Tel [phone], Service support , CC: Rosalba Stein MD; Nyla Bearden MD 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: Signed CHEST 1 VIEW Observed: 02/17/2018 Status: F Source: [place] (PORTABLE) 7:28 PM [facility] Imaging Services [address] [place] [address] Chest 1 View (Portable) MR#: [id number] Acct: [id number] Name: ATTILA DEL CID Rep #: [id number] : 1970 M 48 From: Carlos Atkins DO PCP: Nyla Bearden MD Status: REG ER Study: Chest 1 View (Portable) Date of Exam: 02/17/18 Exam# [id number] Ordering Dr: Rosalba Stein MD STUDY: X-RAY CHEST REASON FOR EXAM: Male, 48 years old. Chest pain TECHNIQUE: Single frontal view COMPARISON: December 16, 2017 FINDINGS: The lungs are clear and expanded. There is no demonstrated pleural abnormality. Normal size heart. Normal mediastinum and ruben. Normal visualized pulmonary arteries. Normal visualized aortic arch and descending thoracic aorta. Normal visualized thoracic spine. Normal visualized ribs, clavicles, and shoulders. There is no demonstrated abnormality of the visualized soft tissue structures of the upper abdomen. RAD/Chest 1 View (Portable) IMPRESSION: Normal x-ray examination of the chest. Electronically Signed: Carlos Atkins DO at 20:02 EDT Tel [phone], Service support , CC: Rosalba Stein MD; Nyla Bearden MD 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: Signed CBC W/DIFF, AUTOMATED Collected: 02/17/2018 Status: F Source: [place] 7:20 PM [facility] TYPE CODE TESTS RESULT OUT OF RANGE REFERENCE UNITS LAB L100.1000 4.4-11.0 K/mm3 Normal WBC 11.0 LAB L100.1200 4.6-6.2 M/mm3 Normal RBC 5.60 LAB L100.1300 13.0-16.5 g/dl Normal HGB 14.7 LAB L100.1400 40-54 % Normal HCT 44.7 LAB L100.1500 80-94 fL Low MCV 79.8 LAB L100.1600 27.0-32.0 pg Low MCH 26.3 LAB L100.1700 32-36 g/gl Normal MCHC 32.9 LAB L100.1810 11.6-14.6 % High RDW CV 15.5 LAB L100.1820 35.1-43.9 fl High RDW SD 44.9 LAB L100.1900 150-450 K/mm3 Normal PLT 318 LAB L100.2000 6.2-12.0 fl Normal MPV 8.8 LAB L100.2100 47-70 % Normal NEUT% 66.8 LAB L100.2200 19-41 % Normal LY% 21.5 LAB L100.2300 0-10 % High MONO% 11.3 LAB L100.2400 0-5 % Normal EO% 0.0 LAB L100.2500 0-1 % Normal BASO% 0.1 LAB L100.2550 0.0-0.9 % Normal IM GRAN % 0.300 Result Comment: IG% - Immature Granulocytes (promyelocytes, myelocytes and metamyelocytes) > 1% indicates that a LEFT SHIFT is Present. LAB L100.2620 2.0-7.7 X10 3/uL Normal Absolute Neut 7.4 LAB L100.2720 0.83-4.51 X10 3/ul Normal Absolute Lymph 2.36 Performed By: #### L100.0100 #### [facility] [address] [address] [place], [place], [address] BASIC METABOLIC Collected: 02/17/2018 Status: F Source: [place] PROFILE (BMP) 7:20 PM [facility] Order Comment: 'TROP' Serial specimen #1, #2, #3, or #4: 1 TYPE CODE TESTS RESULT OUT OF RANGE REFERENCE UNITS LAB L501.0100 74-106 mg/dL Low GLU 68 Result Comment: Please note revised GLUCOSE reference range effective 2017. LAB L501.1000 7-18 mg/dL High BUN 22 LAB L501.1100 0.70-1.30 mg/dL Normal CREAT,SERUM 0.89 Result Comment: The validity of the calculated GFR AND GFRAA in patients over 70 years has not been determined. Clinical correlation is essential. LAB L501.1110 >60 mL/min Normal EST GFR 97 Result Comment: Non- GFR Calc LAB L501.1115 >60 mL/min Normal EST GFR - AA 117 Result Comment: GFR Calc LAB L501.1255 ml/min Normal Estimated CRCL 108.11 LAB L501.1300 10-20 RATIO High BUN/CRE 24.6 LAB L501.2200 8.5-10 mg/dL .1 CA Normal 8.9 LAB L501.5300 136-14 mmol/L 5 NA Normal 143 LAB L501.5600 3.5-5. mmol/L 1 K Normal 3.6 LAB L501.5900 98-107 mmol/L High CL 108 LAB L501.6100 21.0-3 mmol/L 2.0 CO2 Normal 26.0 LAB L501.6200 5-15 GAP Normal 9 Performed By: #### L500.2500, L501.4010 #### [facility] [address] [place], [place], [address] TROPONIN-I Collected: 02/17/2018 Status: F Source: [place] 7:20 PM [facility] REPOSITORY Order Comment: 'TROP' Serial specimen #1, #2, #3, or #4: 1 TYPE CODE TESTS RESULT OUT OF RANGE REFERENCE UNITS LAB L501.4010 <0.06 ng/mL Normal < 0.02 TROPONIN-I Result Comment: TROPONIN-I EXPECTED VALUES <0.05 NEGATIVE 0.06 - 0.59 AT RISK OF MA > OR = 0.60 SUGGEST MA Performed By: #### L500.2500, L501.4010 #### [facility] [address] [place], [address] EMERGENCY DEPARTMENT Observed: 02/17/2018 Status: F Source: [place] SUMMARY 12:30 AM [facility] REPOSITORY [facility] Medical Records Department [address] [place] [address] Emergency Department Summary 02/16/18 2345 MR#: [id number] Acct: [id number] Name: ATTILA DEL CID Rep #: [id number] : 1970 48 From: Chavez Byrd MD PCP: Nyla Bearden MD Status: DEP ER - ER Visit Summary Date of Service: 02/16/18 Chief Complaint: Right flank pain History of Present Illness: The patient is a 48 M reportedly history of kidney stones. Prior CVA, CAD, MA and hypertension. Patient complaining of right flank pain that began today suddenly. Mild to moderate with associated nausea. No vomiting. No diarrhea. Had a bowel movement today around 10 AM. Denies any trauma. No fever. Able to urinate. Physical Examination: Well-appearing middle-age male. Vital signs stable afebrile. HEENT exam unremarkable. Neck nontender. Lungs clear to auscultation bilaterally. Heart regular rhythm no murmur. Chest wall nontender. Abdomen soft. Nontender. Nondistended. Normal bowel sounds. No peritoneal signs. No pulsatile mass. Moving all 4 extremities. Neurovascular intact. Back exam nontender. No CVA tenderness. Test Results: BMP normal. UA shows no signs of infection or blood. Renal function is normal on the BMP. CT flank study without contrast shows bilateral renal stones but no acute ureteral calculi. Calcifications of the aorta but no aneurysm. No acute abnormality. Emergency Department Course and Treatment: Patient initially treated with morphine, Phenergan and Toradol. Treatment Plan: Repeat exam the patient is doing well at 2341. Abdomen is benign. Will be discharged to home. With outpatient follow-up with his primary care physician. Disposition: Discharge Impression: Right flank pain of uncertain etiology History of renal calculi This note was generated with [employer] dictation software. It may contain incorrect words, spelling, and punctuation that were not noted in review of the chart prior to signing ED Disposition - Plan for ED Patient: Chief Complaint: Flank Pain Referrals: Nyla Bearden MD [Primary Care Provider] - What to do if you have Problems For any increased pain, shortness of breath, bleeding, nausea or vomiting, chest pain, or any unexpected problems, contact your Primary Care Provider. Call [facility] ([phone]) or report to the closest Emergency Room. Call 911 if necessary. 02/17/1829 <Electronically signed by Chavez Byrd MD> Date Chavez Byrd MD Cosigner Signature (If Indicated): Date CC: Nyla Bearden MD DISCHARGE INSTRUCTION Observed: 02/17/2018 Status: F Source: [place] 12:30 AM [facility] REPOSITORY [facility] Medical Records Department [address] [place] [address] Discharge Instruction 02/16/18 2348 MR#: [id number] Acct: [id number] Name: ATTILA DEL CID Rep #: [id number] : 1970 48 From: Chavez Byrd MD PCP: Nyla Bearden MD Status: [facility] ER ED Disposition - Plan for ED Patient: Disposition: Home or Assisted Living Chief Complaint: Flank Pain Instructions: ED Flank Pain Uncertain Cause Referrals: Nyla Bearden MD [Primary Care Provider] - 3-5 Days if not improving What to do if you have Problems For any increased pain, shortness of breath, bleeding, nausea or vomiting, chest pain, or any unexpected problems, contact your Primary Care Provider. Call [facility] ([phone]) or report to the closest Emergency Room. Call 911 if necessary. 02/17/1829 <Electronically signed by Chavez Byrd MD> Date Chavez Byrd MD Cosigner Signature (If Indicated): Date CC: Nyla Bearden MD URINALYSIS, COMPLETE Collected: 02/16/2018 Status: F Source: [place] 8:24 PM [facility] REPOSITORY Order Comment: Order Date: 02/16/18 Has pt arrived? Y How was Urine Obtained? CLEAN CATCH TYPE CODE TESTS RESULT OUT OF RANGE REFERENCE UNITS LAB L400.3000 Yellow COLOR Normal Yellow LAB L400.3050 Clear Normal CLARITY Clear LAB L400.3200 Normal mg/dl Normal GLUCOSE, UR Normal LAB L400.3300 Negative mg/dL Normal BILIRUBIN URINE Negative LAB L400.3400 Negative mg/dl Normal KETONE UR Negative LAB L400.3465 1.002-1.030 Normal SP.GR. DIPSTX 1.020 LAB L400.3550 5.0 - 8.0 pH UR Normal 6.0 LAB L400.3600 Negative mg/dl PROT Normal DIPSTX Negative LAB L400.3700 Normal mg/dl Normal UROBILI Normal LAB L400.3750 Negative Normal NITRITE UR Negative LAB L400.3780 Negative /ul High 10 OCCULT BLOOD-UR LAB L400.3800 Negative /ul LEUK Normal ESTERASE Negative LAB L400.4050 0-5 /hpf WBC 0 Normal SEEN LAB L400.4100 0-5 /hpf Normal RBC-UA 0-5 SEEN LAB L400.4150 0-5 /hpf SQUAM Normal EPI 0-5 SEEN LAB L400.4300 None Seen /hpf 0 Normal BACTERIA SEEN LAB L400.4350 <or=2+ /hpf 3+ Normal MUCUS, URINE Performed By: #### L400.0001 #### [facility] [address] [place], [place], [address] ABDOMEN/PELVIS WITHOUT Observed: 02/16/2018 Status: F Source: [place] CONT 7:34 PM [facility] REPOSITORY [facility] Imaging Services [address] [place] [address] Abdomen/Pelvis without Cont MR#: [id number] Acct: [id number] Name: ATTILA DEL CID Rep #: [id number] : 1970 M 48 From: Freddy Contreras MD PCP: Nyla Bearden MD Status: REG ER Study: Abdomen/Pelvis without Cont Date of Exam: 02/16/18 Exam# [id number] Ordering Dr: Chavez Byrd MD STUDY: CT ABDOMEN AND PELVIS WITHOUT CONTRAST REASON FOR EXAM: Male, 48 years old. RIGHT FLANK PAIN WITH NAUSEA AND DIFFICULTY WITH URINATION, HX KS WITH LITHOTRIPSY AND BASKET RETRIEVAL, AAA, HERNIA REPAIR RADIATION DOSAGE (If Supplied By Facility): CTDIvol = ( 19.17 ) mGy, DLP = ( 1082.63 ) mGycm TECHNIQUE: Transaxial images were obtained from the dome of the diaphragm to the symphysis pubis without oral contrast, and without intravenous contrast. Sagittal and coronal images were reconstructed. Individualized dose optimization techniques were used for this CT. COMPARISON: None. FINDINGS: The visualized lung bases are unremarkable. The visualized portions of the heart are within normal limits. Normal liver. Normal gallbladder and extrahepatic biliary system. Normal spleen. Normal pancreas. Normal bilateral adrenal glands. Multiple inferior right renal calculi. These are nonobstructive. The largest measures 3.2 mm. Non obstructive 1 to 2 mm left renal parenchymal stone in the mid kidney. Normal visualized stomach. Normal small intestine. Normal colon. The appendix is visualized and appears normal. There is diffuse atherosclerotic calcification of the abdominal aorta, without a demonstrated aneurysm. Normal inferior vena cava. Normal retroperitoneum. Normal urinary bladder. There are prostatic calcifications. There are bilateral inguinal hernias containing fat. There is no bowel involvement. There is no incarceration. There is no findings suggesting that this is causing a bowel obstruction. Normal osseous structures. Lumbar spinal fixation device. CT/Abdomen/Pelvis without Cont IMPRESSION: Non obstructive 1 to 2 mm left renal parenchymal stone in the mid kidney. Multiple inferior right renal calculi. These are nonobstructive. The largest measures 3.2 mm. There are calcifications of the abdominal aorta. This is consistent for atherosclerotic disease. There is no abdominal aortic aneurysm. Electronically Signed: Freddy Contreras MD at 20:36 EDT , Service support , CC: Nyla Bearden MD; Chavez Byrd MD 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: Signed BASIC METABOLIC Collected: 02/16/2018 Status: F Source: [place] PROFILE (BMP) 7:30 PM [facility] REPOS[facility]ORY TYPE CODE TESTS RESULT OUT OF RANGE REFERENCE UNITS LAB L501.0100 74-106 mg/dL Normal GLU 98 Result Comment: Please note revised GLUCOSE reference range effective 2017. LAB L501.1000 7-18 mg/dL High BUN 23 LAB L501.1100 0.70-1.30 mg/dL Normal CREAT,SERUM 0.93 Result Comment: The validity of the calculated GFR AND GFRAA in patients over 70 years has not been determined. Clinical correlation is essential. LAB L501.1110 >60 mL/min Normal EST GFR 92 Result Comment: Non- GFR Calc LAB L501.1115 >60 mL/min Normal EST GFR - AA 111 Result Comment: GFR Calc LAB L501.1255 ml/min Normal Estimated CRCL 103.46 LAB L501.1300 10-20 RATIO High BUN/CRE 24.6 LAB L501.2200 8.5-10 mg/dL .1 CA Normal 8.9 LAB L501.5300 136-14 mmol/L 5 NA Normal 138 LAB L501.5600 3.5-5. mmol/L 1 K Normal 3.7 LAB L501.5900 98-107 mmol/L CL Normal 107 LAB L501.6100 21.0-3 mmol/L 2.0 CO2 Normal 26.0 LAB L501.6200 5-15 GAP Normal 5 Performed By: #### L500.2500 #### [facility] [address] [place], [address] INITAL EVALUATION (1) Observed: 02/05/2018 Status: F Source: [place] - PT 5:13 PM [facility] REPOSITORY [facility] [address] [place] [address] Fax REHABILITATION SERVICES INITIAL EVALUATION MR#: [id number] Acct: [id number] Name: ATTILA DEL CID Rep #: [id number] : 1970 48 From: Joaquina Harris PT, Cert. MDT Referring Dr.: Claribel Batista DO Status: REG RCR Insurance: MEDICARE PART A B SELF PAY INSURANCE Patient's Visit Information ATTILA DEL CID is a 48 year old M referred to Physical Therapy by Claribel Batista DO with a diagnosis of R RC TENDINOSIS/BICEPS TENDINOSIS/SUBACROMIAL IMPINGEMENT. Date of Evaluation: 02/05/18 Physical Therapist: Joaquina Harris - Visit Plan Frequency: 2-3x /Week Duration: 4-6 Weeks Plan: RIGHT LATERAL SHOULDER AND RIGHT LATERAL ELBOW UE. MH AND CP NEEDED. POSTURE CORRECTION/STRENGTHENING, INSTRUCTION IN APPROPRIATE BODY MECHANICS AND ACTIVITY MODIFICATIONS. DENG UE ROM, STRETCHING AND STRENGTHENING. HEP INSTRUCTION. - Subjective Subjective: Diagnosis: R RC TENDINOSIS/BICEPS TENDINOSIS/SUBACROMIAL IMPINGEMENT. Work/Leisure: UNEMPLOYEED. 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 Disability: NOV 2016 WENT ON DISABILITY FOR HEART RELATED ISSUES. Present symptoms: RIGHT SHOULDER/UPPER ARM. NUMBNESS AND TINGLING IN THE PALM OF HIS HAND. STATES HE ALSO HAS CARPAL TUNNEL. Present since: ABOUT 5 MONTHS AGO. Pain Scale: WORST 9/10, LEAST 3/10. Currently: 6/10. Commenced as a result of: PATIENT REPORTS HE HAS BEEN USING HIS RIGHT ARM A LOT TO REMODEL A HOUSE. Symptoms at onset: RIGHT SHOULDER. Worse: TAKING A SHOWER, ANYTHING HE USES HIS ARM FOR, TYPING, WRITING, LEAVING IT IN ONE PLACE TOO LONG, AT NIGHT ONLY ALLOWS HIM ABOUT 3 HOURS OF SLEEP BECAUSE IT HURTS SO BAD. Better: ICE OR HEAT. Disturbed sleep: YES. Previous history/Previous treatment: HAS DISLOCATED THE RIGHT SHOULDER TWICE ABOUT 20 YEARS AGO. HAS DISLOCATED THE LEFT SHOULDER TOO. NO PRIOR PT. ONE INJECTION IN RIGHT SHOULDER ABOUT [address] KAHN. REFERRED TO DR. KAHN BY DR. ALVAREZ. CHANGED FAMILY DOCTORS AND WAS REFERRED TO DR. BATISTA FOR SURGICAL CONSULT. NO SURGERY RECOMMENDED BY DR. BATISTA AT THIS TIME PENDING OUTCOME OF PT. ALSO DID NOT RECOMMEND INJECTIONS DUE TO POSSIBLE FURTHER THINNING OF MUSCLE PER PATIENT. Dizziness: NO. Tinnitis: YES - CHRONIC X 15 YEARS. Nausea: NO. Difficulty Swollowing: NO. Gait: NORMAL. Accidents: NO. Unexplained weight loss: NO. Imaging: RIGHT SHOULDER X-RAYS AND MRI. RECENT MRI IMPRESSION: 1. Tendinopathy of the supraspinatus tendon and subscapularis tendon. 2. Degenerative arthropathy of the acromioclavicular joint. PMH: LEFT KNEE ACL REPAIR ABOUT A YEAR AGO. RIGHT KNEE PARTIAL RPLM. SPIINAL FUSION - 2 BACK SURGERIES. CARDIAC ABLATION SEP 2017. ANEURYSM. HTN. MINOR CVA 2017. SEES A CHIROPRACTOR ONCE A MONTH FOR MIGRAINES AND NECK PAIN. EPISODIC NECK PAIN STARTING ABOUT 2 YEARS AGO AND PATIENT RELATES IT TO STRESS AND ANXIETY. CHIROPRACTIC HISTORY FOR ABOUT 8-9 MONTHS NOW. BRAIN MRI. DENG HEARING AIDS. OTHER: DROPPING THINGS WITH RIGHT UE. - Objective Sitting Posture: POOR. Standing Posture: POOR. Active Correction of posture: WORSE. Other Observations: INDEP GAIT INTO PT WITHOUT ANY ASSISTIVE DEVICES. PATIENT IS COOPERATIVE AND FOLLOWS COMMANDS WELL. 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 PATIENT IS RIGHT HAND DOMINANT. MMT RIGHT SHOULDER FLEX 3-/5, ABD 3-/5, ER 3-/5, IR 3-/5. RIGHT ELBOW FLEX 5/5, EXT 5/5. WRIST EXT 3-/5. Sensory deficit: DECREASED LIGHT TOUCH OF THE RIGHT DORSAL, ULNAR AND RADIAL FOREARM AND THE ENTIRE RIGHT HAND COMPARED TO LEFT. ROM deficit: 116 DEG ACTIVE FLEX AND 108 DEG ACTIVE ABD OF RIGHT SHOULDER. SUPINE RIGHT SHOULDER INTERNAL ROTATION 52 DEG AND ER 70 DEG WITH 90 DEG ABD. ER PAIN WITH RIGHT SHOULDER ROOM TESTING ALL PLANES. FULL RIGHT ELBOW ROM. FULL FOREARM ROM. DECREASED RIGHT WRIST EXT. Cervical Mvmt Loss: Flex: NIL. Pro: NIL. Ext: MOD. Ret: MOD - PROVOKES RIGHT NECK PAIN. RSB: MIN. LSB: MIN. R Rot: MIN. L Rot: MIN. Postural strength: POOR. Palpation: RIGHT LATERAL SHOULDER TENDERNESS DISTAL TO AC JOINT. TENDERNESS RIGH LATERAL EPICONDYLE REGION. CERVICAL SPINE IS NOT TENDER. OTHER: POSITIVE RIGHT LATERAL EPICONDYLITIS TEST. - Goals Goal 1:: DECREASE C/O RIGHT UE PAIN Goal Time Frame: 4-6 Weeks Goal 2:: IMPROVE REACHING, LIFTING, ADL, WORK AND SLEEP FUNCTION Goal Time Frame: 4-6 Weeks Goal 3:: INDEP HEP FOR CONTINUED IMPROVEMENT ONCE FORMAL PHYSICAL THERAPY CONCLUDES Goal Time Frame: 4-6 Weeks - Rehabilitation Potential Rehabilitation Potential: Fair - Anticipated Interventions Patient/Client Instruction: Educate patient on: Condition, Plan of Care, Risk Factors, Benefits of Fitness Program For the Purpose of:: To improve self management Therapeutic Exercise to Include: Strength training, Body mechanics, Postural training, Flexibilty training, Passive ROM, Active ROM, Scapular Strength/Stabilization For the Purpose of:: To decrease pain, To increase ROM, To improve muscle performance and motor function, To improve ability to perform ADL's, To increase tolerance to activity/condition/position, To improve ability of physical actions for home/community/work/leisure Cryotherapy (ice pack, ice massage): Yes Thermo therapy (hot pack): Yes Ultrasound (thermal/non thermal): Yes For the Purpose of:: To decrease pain, To decrease swelling/inflammation, To increase ROM Thank you for the opportunity to evaluate your patient. For Medicare and Medicare HMO plans, please review the plan of care and approve it. It will need to be FAXED BACK to us at [phone] for Medicare purposes. Please let me know if there are questions or concerns regarding this plan of care. Physician Signature: Date: <Electronically signed by Joaquina Harris PT, Cert. T> 02/05/18 2015 CC: Claribel Batista DO; Nyla Bearden MD EMMANUEL Signed For Medicare only, by signing this I certify the plan of care. Physicians Signature Date FRANCESCA Observed: 02/04/2018 Status: COMPLETED Source: [place] 12:00 AM [facility] REPOSITORY Patient Outreach (FAMPST) ATTILA DEL CID ([id number]) 1970 M Date Time Provider Department [facility] your visit today, we recorded the following information about you: Allergies As of Date: 02/04/2018 Noted Allergy Reaction CELEBREX (CELECOXIB) 07/17/2016 11 - Vomiting Comments: Nausea CLONIDINE 07/17/2016 2 - Rash FENTANYL 07/17/2016 8 - GI Upset LEVOFLOXACIN 04/13/2017 2 - Rash Comments: pt reports to [facility] PT 6--2017 PENICILLIN G 12/30/2013 2 - Rash RELPAX (ELETRIPTAN HBR) 07/17/2016 11 - Vomiting Comments: Nausea TOPAMAX (TOPIRAMATE) 07/17/2016 11 - Vomiting VICODIN (HYDROCODONE-ACETAMINOPHE*12/30/2013 11 - Vomiting WELLBUTRIN (BUPROPION HCL) 07/17/2016 11 - Vomiting Comments: Nausea Date Reviewed: 10/02/2017 Reviewed by: Camron Perez - Fully Assessed Visit Diagnosis:Medication management [Z79.899] Order(s):BASIC METABOLIC PNL [SQBMP] Order #: [id number] FUTURE LIPID PANEL BASIC [SQLIPB] Order #: [id number] FUTURE Prescriptions as of 02/04/2018 Sig: GABAPENTIN 300 MG CAPSULE Take 100 mg by mouth daily at* X [id number]* X OXYCODONE-ACETAMINOPHEN 5 MG-* APIXABAN 5 MG TABLET Take by mouth twice daily. X SERTRALINE 100 MG TABLET 200 mg. MECLIZINE 12.5 MG TABLET Take 2 tablets by mouth twice* LISINOPRIL 20 MG TABLET Take 1 tablet by mouth once d* PANTOPRAZOLE 40 MG TABLET,DEL* Take 1 tablet by mouth once d* X CARVEDILOL 25 MG TABLET Take 1 tablet by mouth twice * X BUSPIRONE 7.5 MG TABLET Take 7.5 mg by mouth twice da* X ROPINIROLE 1 MG TABLET Take 1 tablet by mouth daily * Patient not taking: Reported on 04/16/2018 ALBUTEROL SULFATE HFA 90 MCG/* Inhale 2 Puffs as instructed * X IBUPROFEN 600 MG TABLET Take 1 tablet by mouth every * Patient not taking: Reported on 05/14/2018 X PROMETHAZINE 25 MG TABLET Take 25 mg by mouth every 6 h* Problem List As Of Date 02/04/2018 Noted Resolved Primary osteoarthritis of right knee [M17.11] INVALID FOR* Chest pain at rest [R07.9] INVALID FOR* HTN (hypertension) [I10] INVALID FOR* Atrial fibrillation (HCC) [I48.91] INVALID FOR* More... Atypical chest pain [R07.89] INVALID FOR* Patellofemoral instability of right knee with p*INVALID FOR* Encounter Status:Closed by [facility], PRODUSER on 08/01/18 GASTRIC EMPTYING Observed: 01/20/2018 Status: F Source: [place] STUDY 10:45 AM [facility] REPOSITORY [facility] Imaging Services [address] [place] [address] Gastric Emptying Study MR#: [id number] Acct: [id number] Name: ATTILA DEL CID Rep #: [id number] : 1970 M 47 From: Nirmala Hayes DO PCP: Nyla Bearden MD Status: REG CLI Study: Gastric Emptying Study Date of Exam: 01/20/18 Exam# [id number] Ordering Dr: John Davis MD CLINICAL: 47-year-old male with reported history of chronic nausea. SEMI-SOLID PHASE 99m Tc SULFUR COLLOID GASTRIC EMPTYING STUDY COMPARISON: None available FINDINGS: The patient was administered 1.1 mCi of 99m Tc sulfur colloid mixed with oatmeal and consumed per os. Image acquisitions in the anterior-posterior projections for a total of 60 minutes. There is prompt visualization of the stomach. There is no gastroesophageal reflux identified. The T1/2 linear fit was calculated to be 36.01 minutes, (Normal: 12-56 minutes). NM/Gastric Emptying Study IMPRESSION: 1. NORMAL 99m Tc sulfur colloid semi-solid phase (oatmeal) gastric emptying imaging examination. A. There is normal and preserved semi-solid phase gastric emptying compared to normal controls. (Jabier et al, J Nucl Med Tech 38: 186, 2010). Electronically Signed: Nirmala Hayes DO at 22:45 EDT Tel , Service support , CC: Nyla Bearden MD; John Davis 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: Signed ORTHOPEDIC VISIT Observed: 01/16/2018 Status: F Source: [place] REPORT 9:25 AM [facility] Orthopaedics AND Sports Medicine [address] [place] [address] OFFICE VISIT Date of Service: 01/14/18 MR#: [id number] Acct: [id number] Name: ATTILA DEL CID Lois Rep #: [id number] : 1970 Provider: Claribel Batista DO Age/Sex: 47/M Location: [facility] [place] [facility] [place]: Signed Intake Intake Visit Reasons: RIGHT SHOULDER Is patient in pain?: Yes Pain scale (1-10): 7 Allergies clonidine Allergy (Intermediate, Verified 01/14/18 14:04) rash levofloxacin [From Levaquin] Allergy (Verified 01/14/18 14:04) Rash Penicillins Allergy (Verified 01/14/18 14:04) Hives bupropion Adverse Reaction (Intermediate, Verified 01/14/18 14:04) vomiting celecoxib [From Celebrex] Adverse Reaction (Intermediate, Verified 01/14/18 14:04) vomiting eletriptan Adverse Reaction (Intermediate, Verified 01/14/18 14:04) Vomiting topiramate [From Topamax] Adverse Reaction (Intermediate, Verified 01/14/18 14:04) vomiting fentanyl Adverse Reaction (Unknown, Verified 01/14/18 14:04) unknown acetaminophen [From Vicodin] Adverse Reaction (Verified 01/14/18 14:04) Nausea hydrocodone bitartrate [From Vicodin] Adverse Reaction (Verified 01/14/18 14:04) Nausea Medications Pantoprazole Sodium [Protonix] 40 mg PO DAILY 04/22/16 [History Confirmed 01/14/18] Carvedilol [Coreg] 25 mg PO BID 01/31/17 [History Confirmed 01/14/18] Albuterol Inhaler [Ventolin Hfa] 1 - 2 puff INHALATION Q4H PRN PRN #1 inhaler 07/15/17 [Rx Confirmed 01/14/18] Acetaminophen/Butalbital/Caffe [Fioricet] 1 tab PO Q4H PRN PRN #8 tab 09/11/17 [Rx Confirmed 01/14/18] Apixaban [Eliquis] 5 mg PO BID 09/21/17 [History Confirmed 01/14/18] furosemide 40 mg tablet 40 mg PO QDAY #90 tab 10/29/17 [Rx Confirmed 01/14/18] lisinopril 40 mg tablet 40 mg PO QDAY #90 tab 10/29/17 [Rx Confirmed 01/14/18] atorvastatin 20 mg tablet 20 mg PO QDAY #60 tab 11/11/17 [Rx Confirmed 01/14/18] amlodipine 10 mg tablet 10 mg PO QDAY #30 tab 01/14/18 [Rx Confirmed 01/14/18] gabapentin 100 mg capsule 100 mg PO QHS #30 cap 01/14/18 [Rx Confirmed 01/14/18] meclizine 12.5 mg tablet 12.5 mg PO QODAY PRN #30 tab 01/14/18 [Rx Confirmed 01/14/18] venlafaxine ER 75 mg tablet,extended release 24 hr 75 mg PO QDAY #30 tab 01/14/18 [Rx Confirmed 01/14/18] PFSH Medical History Chest pain (Acute) Elevated troponin (Acute) Nephrolithiasis (Chronic) HTN (hypertension) (Chronic) Anxiety (Chronic) PAF (paroxysmal atrial fibrillation) (Chronic) GERD (gastroesophageal reflux disease) (Chronic) Obesity (BMI 30-39.9) (Chronic) BPPV (benign paroxysmal positional vertigo) (Chronic) HLD (hyperlipidemia) (Chronic) Thoracic aortic aneurysm without rupture (Chronic) Surgical History History of left heart catheterization (Chronic) History of cardiac radiofrequency ablation (Acute) Family History Brother Hypertension Mother Heart disease Colon cancer Sister Diabetes Sister Diabetes Sister Diabetes Social History Smoking Status: Never smoker alcohol intake: never substance use type: does not use what type of physical activity do you participate in: walking frequency: 1-2 times per week duration: 15-30 minutes/day HPI RIGHT SHOULDER: Details: ATTILA DEL CID is a 47 year old M here today for MRI f/u, he complains of pain with rom that radiates into his elbow. He has decreased rom and is unable to find a comfortable position to sleep in. He also states that entire hand feels numb in the morning and after increased use. He is unable to reach overhead without increased pain. ROS Const Reports system reviewed and no additional complaints, except as docu Eyes Reports system reviewed and no additional complaints, except as docu ENT Reports system reviewed and no additional complaints, except as docu Card Reports system reviewed and no additional complaints, except as docu Resp Reports system reviewed and no additional complaints, except as docu GI Reports system reviewed and no additional complaints, except as docu Musc Reports as per HPI, Reports joint pain, Reports limited joint movement, Reports stiffness, Reports numbness, Reports tingling, Reports radiating pain into limb, Reports muscle weakness Skin/Breast Reports system reviewed and no additional complaints, except as docu Neuro Yes system reviewed and no additional complaints, except as docu, Yes numbness, Yes tingling Psych Reports system reviewed and no additional complaints, except as docu Endo Reports system reviewed and no additional complaints, except as docu Ortho Exam Right Wrist/Hand Skin/Wound: Yes CDI Contralateral Normal: Yes A1 valerie trigger: No Right Wrist: Yes ROM-Extension 0-60, ROM-Supination 0-90, ROM-Flexion 0-80, ROM-Pronation 0-80 and Durken's Test Motor: EPL: 5, FDP-2: 5, 1st Dorsal Interosseous: 5, APB: 5 Sensation: Radial: I, Ulnar: I, Median: I Right Shoulder Skin/Wound: Yes CDI Contralateral Normal: Yes Testing: Positive Hawkin's, Neer's, AROM-Forward Elevation 0-180, PROM-External Rotation at side 0-60, TTP AC Joint and TTP Biceps Assessment AND Plan 1. Biceps tendinitis of right shoulder M75.21 Plan Personally reviewed the MRI and explained he has biceps tendonitis, shoulder OA and ac OA, rtc tendonitis. His options are repeat injections every four months and explained the risk of degeneration of the rtc with too many injections. Gave PT script today and instructed to return in a month if he would like to try another injection. Educated on the innervation of the nerves and his n/t, he has thenar atrophy today and we will order an EMG for carpal tunnel. His treatment options are do nothing, wear a brace or injection but we will get EMG before injection, if it's severe or moderate will discuss surgery. Follow up in 6wks or sooner if pain, swelling, numbness or associated symptoms, or concerns develop. All questions answered. Patient in agreement of plan. 2. Right rotator cuff tendonitis M75.81 3. Impingement syndrome of right shoulder M75.41 4. Arthritis of right acromioclavicular joint M19.011 5. Right carpal tunnel syndrome G56.01 Orders Orders: Plan Detail Other Medications Discontinued: Coding Level of Care Code Off vis,est,level 4 Diagnoses Biceps tendinitis of right shoulder M75.21 Right rotator cuff tendonitis M75.81 Impingement syndrome of right shoulder M75.41 Arthritis of right acromioclavicular joint M19.011 Laterality: right Right carpal tunnel syndrome G56.01 01/16/18 0925 <Electronically signed by Claribel TATE Date Claribel Colladoigndolores Signature: Date (if applicable) CC: INTERNAL MEDICINE Observed: 01/14/2018 Status: F Source: [facility] OFFICE VISIT 6:04 PM [facility] Internal Medicine [facility] [place] [address] OFFICE VISIT Date of Service: 01/14/18 MR#: [id number] Acct: [id number] Name: ATTILA DEL CID Lois Rep #: [id number] : 1970 Provider: Tawanda Colon NP Age/Sex: 47/M Location: [facility] [place] Status: Signed Intake Vital Signs01/14/18 Height 5 ft 11 in 01/14/18 Weight: 246 lb 01/14/18 Body Mass Index (BMI) 34.2 01/14/18 Blood Pressure 151/103 Intake Visit Reasons: follow up Chief Complaint: F/U Anxiety med Is patient in pain?: Yes (Rt shoulder - saw Ortho ) Pain scale (1-10): 7 Allergies clonidine Allergy (Intermediate, Verified 01/14/18 14:04) rash levofloxacin [From Levaquin] Allergy (Verified 01/14/18 14:04) Rash Penicillins Allergy (Verified 01/14/18 14:04) Hives bupropion Adverse Reaction (Intermediate, Verified 01/14/18 14:04) vomiting celecoxib [From Celebrex] Adverse Reaction (Intermediate, Verified 01/14/18 14:04) vomiting eletriptan Adverse Reaction (Intermediate, Verified 01/14/18 14:04) Vomiting topiramate [From Topamax] Adverse Reaction (Intermediate, Verified 01/14/18 14:04) vomiting fentanyl Adverse Reaction (Unknown, Verified 01/14/18 14:04) unknown acetaminophen [From Vicodin] Adverse Reaction (Verified 01/14/18 14:04) Nausea hydrocodone bitartrate [From Vicodin] Adverse Reaction (Verified 01/14/18 14:04) Nausea Medications Pantoprazole Sodium [Protonix] 40 mg PO DAILY 04/22/16 [History Confirmed 01/14/18] Carvedilol [Coreg] 25 mg PO BID 01/31/17 [History Confirmed 01/14/18] Albuterol Inhaler [Ventolin Hfa] 1 - 2 puff INHALATION Q4H PRN PRN #1 inhaler 07/15/17 [Rx Confirmed 01/14/18] Acetaminophen/Butalbital/Caffe [Fioricet] 1 tab PO Q4H PRN PRN #8 tab 09/11/17 [Rx Confirmed 01/14/18] Apixaban [Eliquis] 5 mg PO BID 09/21/17 [History Confirmed 01/14/18] furosemide 40 mg tablet 40 mg PO QDAY #90 tab 10/29/17 [Rx Confirmed 01/14/18] lisinopril 40 mg tablet 40 mg PO QDAY #90 tab 01/09/18 [Rx Confirmed 01/14/18] atorvastatin 20 mg tablet 20 mg PO QDAY #60 tab 11/11/17 [Rx Confirmed 01/14/18] amlodipine 10 mg tablet 10 mg PO QDAY #30 tab 01/14/18 [Rx Confirmed 01/14/18] gabapentin 100 mg capsule 100 mg PO QHS #30 cap 01/14/18 [Rx Confirmed 01/14/18] meclizine 12.5 mg tablet 12.5 mg PO QODAY PRN #30 tab 01/14/18 [Rx Confirmed 01/14/18] venlafaxine ER 75 mg tablet,extended release 24 hr 75 mg PO QDAY #30 tab 01/14/18 [Rx Confirmed 01/14/18] PFSH Medical History Chest pain (Acute) Elevated troponin (Acute) Nephrolithiasis (Chronic) HTN (hypertension) (Chronic) Anxiety (Chronic) PAF (paroxysmal atrial fibrillation) (Chronic) GERD (gastroesophageal reflux disease) (Chronic) Obesity (BMI 30-39.9) (Chronic) BPPV (benign paroxysmal positional vertigo) (Chronic) HLD (hyperlipidemia) (Chronic) Thoracic aortic aneurysm without rupture (Chronic) Surgical History History of left heart catheterization (Chronic) History of cardiac radiofrequency ablation (Acute) Family History Brother Hypertension Mother Heart disease Colon cancer Sister Diabetes Sister Diabetes Sister Diabetes Social History Smoking Status: Never smoker alcohol intake: never substance use type: does not use what type of physical activity do you participate in: walking frequency: 1-2 times per week duration: 15-30 minutes/day HPI HPI Chief Complaint: F/U Anxiety med Details: ATTILA DEL CID, is a 47 M who presents to the office today for a follow-up of his chronic conditions. He has a past medical history as listed above. The patient was previously started on Effexor 37.5 mg daily at his previous office visit for his anxiety. He does state that this is helped his anxiety, however he feels that it is not entirely controlled on this and is wondering if he can titrate up on the medication. He also notes that he has carpal tunnel syndrome with rotator cuff tendinitis which has seen the orthopedic doctor for and that due to his numbness tingling and pain he has had difficulty sleeping at night and wonders if he can start on a medication for this. He states that he has been on gabapentin before in the past for his neuropathy and has done well on this. He does bring up the fact that his blood pressures have been elevated at home to and have been averaging 150 systolic over 100s diastolic. He denies any chest pain or pressure or shortness of breath. He does however bring up the fact that he has had occasional episodes of palpitations over the past week and a half and these are the first episodes since getting his ablation. He states that he is going to contact Dr. Chou office about his palpitations. He denies any other complaints at this time. ROS Const Constitutional: No fever(s), chills, weakness, change in appetite, sleep problems, fatigue, malaise or frequent falls Eyes Eyes: No blurry vision, change in vision, double vision or discharge ENT ENT: No abnormal hearing, ear pain, ear pressure or dizziness/vertigo Resp Respiratory: No cough, wheezing or shortness of breath Cardio Cardiology: Positive for palpitations; no chest pain at rest, chest pain with exertion, shortness of breath, dyspnea on exertion, lightheadedness, fast heart rate, orthopnea or generalized swelling Gastro GI: No abdominal pain, change in bowel habits, constipation, diarrhea, vomiting or nausea/dyspepsia Musc Musculoskeletal: No joint pain, back pain, limited range of motion, joint swelling, muscle weakness, tingling or numbness Skin Skin: No change in skin color, wounds, rash or itching Neuro Neurology: No weakness, frequent falls, abnormal hearing, tingling, numbness, unsteady gait/balance, dizziness, loss of vision or memory loss Psych Psychiatric: No change in appetite, No memory loss, Positive for anxiety, No depression, No Thoughts of harming yourself/Others Endo Endocrine: No fatigue, increased thirst/drinking, increased urination, increased hunger or heat intolerance Aller/Imm Allergy/Immunologic: No wheezing, itchy eyes or seasonal allergy symptoms Matias/Lymp Hematologic/Lymphatic: No easy bleeding, easy bruising or enlarged lymph nodes Exam Const General: cooperative, comfortable, no acute distress Nutritional Appearance: average body habitus, well nourished Orientation: alert, oriented x3 Limitations: mental status not altered Resp Effort AND Inspection: normal respiratory effort, able to speak in complete sentences, normal respiratory pattern, symmetric chest movement, no audible wheezes, no cough Auscultation: Bilateral: Clear to Auscultation Cardio Palpation: normal PMI Rate: regular rate Heart Sounds: S1 normal, S2 normal, normal S1 and S2, no click, no gallops, no murmurs, no rubs Musc Musculoskeletal: No muscle weakness Skin General: no rashes or lesions noted, elasticity normal, turgor normal Lesions: no lesions Rashes: no rashes Neuro General: alert, awake, oriented x3, CN's II-XI intact bilaterally Speech: speech normal Gait: normal gait Motor: muscle tone normal throughout Extrem General: normal to inspection, normal gait, no edema, no pedal edema Psych Appearance: grossly normal Mental Status: mental status grossly normal Affect: anxious affect Attitude: cooperative Thought Process: normal Assessment AND Plan 1. Essential hypertension I10 Plan Hypertension: Blood pressure is suboptimal at this time. Will make changes to current medication regimen which include the addition of amlodipine 10 mg daily, instructed patient to take half of a pill for a couple days and then call our office with his BP readings and if still elevated to take a full pill. Baseline labs reviewed. Educated patient on the potential side effects of the new medication and to keep a log of their blood pressures at home. Discussed risk factor reduction and lifestyle modifications. Discussed dietary changes that should be considered which include reducing the amount of sodium intake. Patient instructed to follow up in 6 weeks for hypertension follow up visit in 2 weeks for a nurse visit BP recheck. 2. Anxiety F41.9 Plan Anxiety is still not completely controlled, will increase his Effexor to 75 mg daily and patient will follow-up regarding his anxiety in 6 weeks. 3. Insomnia G47.00 Plan Insomnia secondary to his neuropathy given his carpal tunnel syndrome and his pain, gabapentin has worked for him in the past. A prescription of 100 mg gabapentin nightly was sent to his pharmacy. 4. CTS (carpal tunnel syndrome) G56.00 Plan Deferred to orthopedics, he will continue with his conservative wrist brace therapy 5. PAF (paroxysmal atrial fibrillation) I48.0 Plan Patient appears to be in sinus rhythm given his physical exam, however given his recent symptoms of palpitations, instructed him to follow-up with either his acid condenser office or the physician who performed the ablation on him. Patient states he will contact our office today. Plan Detail Other Medications New: Changed: Discontinued: Follow Up 6 weeks or sooner if needed Coding Level of Care Code Off vis,est,level 4 Diagnoses Essential hypertension I10 Hypertension type: essential hypertension Anxiety F41.9 Insomnia G47.00 CTS (carpal tunnel syndrome) G56.00 PAF (paroxysmal atrial fibrillation) I48.0 01/14/18 1804 <Electronically signed by Tawanda KLEIN> Date Tawanda KLEIN Cosigner Signature: Date (if applicable) CC: EMERGENCY DEPARTMENT Observed: 01/10/2018 Status: F Source: [facility] SUMMARY 11:09 PM [facility] Medical Records Department [address] [place] [address] Emergency Department Summary 01/10/18 2205 MR#: [id number] Acct: [id number] Name: ATTILA DEL CID Rep #: [id number] : 1970 47 From: Cassy Arauz MD PCP: Nyla Bearden MD Status: DEP ER - ER Visit Summary Date of Service: 01/10/18 Chief Complaint: Right shoulder pain History of Present Illness: The patient is a 47 M with significant comorbidities who presents to the emergency department with right shoulder pain. The patient has had this pain for about 2 months. He has started following with Dr. Morris. He states that he had an MRI done 7 days ago but has not had the results. He states they suspect he is a rotator cuff tear. He has not had any surgery. He states he took some Tylenol with no improvement. He states that the wrist tonight, the pain is worsened. He has been doing light work with the shoulder. He denies any trauma. He denies any chest pain. The patient is on anticoagulants. Physical Examination: Vital signs reviewed General: Well-nourished, well-developed Head: Normocephalic, atraumatic Eyes: Pupils equal and reactive, extraocular muscles intact Neck, supple, no lymphadenopathy Heart: Regular rate and rhythm Respiratory: No distress, clear bilaterally Abdomen: Soft, nontender, nondistended, no peritoneal signs Back: Nontender Extremities: Tenderness to palpation over the right shoulder, but no erythema or edema. Axillary nerve is preserved. Diminished range of motion secondary to pain. Normal pulses. Skin: Normal color no rash Neuro: Alert and oriented, no focal or lateralizing deficits Test Results: [] Emergency Department Course and Treatment: I did review the patient's MRI from 7 days ago. There is arthropathy of the cuff, but no significant tear. I do for the patient likely has continued pain from his underlying cuff arthropathy. The patient was given oral oxycodone with improvement. There is no evidence of infected joint. He has normal pulses. There is normal neurovascular function. I do for the patient is safe for discharge. He will follow-up with Dr. Morris as scheduled. Treatment Plan: [] Disposition: Discharge Impression:. Right rotator cuff arthropathy This note was generated with [employer] dictation software. It may contain incorrect words, spelling, and punctuation that were not noted in review of the chart prior to signing ED Disposition - Plan for ED Patient: Chief Complaint: Upper Extremity Injury Instructions: ED Tendinitis Rotator Cuff Referrals: Claribel Batista, DO [STAFF PHYSICIAN] - What to do if you have Problems For any increased pain, shortness of breath, bleeding, nausea or vomiting, chest pain, or any unexpected problems, contact your Primary Care Provider. Call [facility] ([phone]) or report to the closest Emergency Room. Call 911 if necessary. 01/10/18 3874 <Electronically signed by Cassy Arauz MD> Date Cassy Arauz MD Cosigner Signature (If Indicated): Date CC: Nyla Bearden MD UPPER EXT JOINT Observed: 01/03/2018 Status: F Source: [facility] ONLY(ROUTINE) 5:01 PM [facility] Imaging Services [address] [place] [address] Upper Ext Joint Only(Routine) MR#: [id number] Acct: [id number] Name: ATTILA DEL CID Rep #: [id number] : 1970 M 47 From: Leonila Lewis MD PCP: Nyla Bearden MD Status: REG CLI Study: Upper Ext Joint Only(Routine) Date of Exam: 01/03/18 Exam# [id number] Ordering Dr: Claribel Batista DO STUDY: MRI RIGHT SHOULDER REASON FOR EXAM: Male, 47 years old. Decreased range of motion. Patient has had right-sided shoulder pain for two months. TECHNIQUE: Standardized fat and water weighted pulse sequences were obtained in all 3 orthogonal planes. COMPARISON: Right-sided shoulder radiograph dated December 19, 2017. FINDINGS: There is supraspinatus tendinosis with tendon attrition, but without a demonstrated supraspinatus tendon tear. Normal infraspinatus tendon. There is subscapularis tendinosis with tendon attrition, but without a demonstrated subscapularis tendon tear. Normal teres minor tendon. Normal supraspinatus muscle. Normal infraspinatus muscle. Normal subscapularis muscle. Normal teres minor muscle. Normal glenohumeral articulation. Normal humeral head and visualized proximal humerus. Normal biceps labral complex. Normal intracapsular long biceps tendon. Normal labrum. Normal capsulo- ligamentous complex. Normal rotator interval. There is mild osteoarthritis of the acromioclavicular articulation. There is a Type II morphology (curved). There is no subacromial- subdeltoid bursal fluid. Normal axillary space. Normal deltoid muscle. Normal trapezius muscle. MRI/Upper Ext Joint Only(Routine) IMPRESSION: 1. Tendinopathy of the supraspinatus tendon and subscapularis tendon. 2. Degenerative arthropathy of the acromioclavicular joint. Electronically Signed: Leonila Lewis MD at 18:26 EDT , Service support , CC: Claribel Batista DO; Nyla Bearden MD 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: Signed ORTHOPEDIC VISIT Observed: 12/19/2017 Status: F Source: [facility] REPORT 2:07 PM [facility] Orthopaedics AND Sports Medicine [address] [place] [address] [address] [place] [address] OFFICE VISIT Date of Service: 12/19/17 MR#: [id number] Acct: [id number] Name: ATTILA DEL CID Rep #: [id number] : 1970 Provider: Claribel Batista DO Age/Sex: 47/M Location: [facility] [place] [facility] Status: Signed Intake Intake Visit Reasons: RIGHT SHOULDER Is patient in pain?: Yes Pain scale (1-10): 7 Allergies clonidine Allergy (Intermediate, Verified 12/16/17 20:51) rash levofloxacin [From Levaquin] Allergy (Verified 12/16/17 20:51) Rash Penicillins Allergy (Verified 12/16/17 20:51) Hives bupropion Adverse Reaction (Intermediate, Verified 12/16/17 20:51) vomiting celecoxib [From Celebrex] Adverse Reaction (Intermediate, Verified 12/16/17 20:51) vomiting eletriptan Adverse Reaction (Intermediate, Verified 12/16/17 20:51) Vomiting topiramate [From Topamax] Adverse Reaction (Intermediate, Verified 12/16/17 20:51) vomiting fentanyl Adverse Reaction (Unknown, Verified 12/16/17 20:51) unknown acetaminophen [From Vicodin] Adverse Reaction (Verified 12/16/17 20:51) Nausea hydrocodone bitartrate [From Vicodin] Adverse Reaction (Verified 12/16/17 20:51) Nausea Medications Pantoprazole Sodium [Protonix] 40 mg PO DAILY 04/22/16 [History Confirmed 12/16/17] Carvedilol [Coreg] 25 mg PO BID 01/31/17 [History Confirmed 12/16/17] Meclizine HCl [Antivert] 12.5 mg PO QODAY 06/16/17 [History Confirmed 12/16/17] Albuterol Inhaler [Ventolin Hfa] 1 - 2 puff INHALATION Q4H PRN PRN #1 inhaler 07/15/17 [Rx Confirmed 12/16/17] Acetaminophen/Butalbital/Caffe [Fioricet] 1 tab PO Q4H PRN PRN #8 tab 09/11/17 [Rx Confirmed 12/16/17] Apixaban [Eliquis] 5 mg PO BID 09/21/17 [History Confirmed 12/16/17] Ondansetron [Zofran Odt] 4 mg PO Q8H PRN PRN #10 tab 10/18/17 [Rx Confirmed 12/16/17] furosemide 40 mg tablet 40 mg PO QDAY #90 tab 10/29/17 [Rx Confirmed 12/16/17] lisinopril 40 mg tablet 40 mg PO QDAY #90 tab 10/29/17 [Rx Confirmed 12/16/17] atorvastatin 20 mg tablet 20 mg PO QDAY #60 tab 11/11/17 [Rx Confirmed 12/16/17] venlafaxine ER 37.5 mg tablet,extended release 24 hr 37.5 mg PO QDAY #30 tab 11/11/17 [Rx Confirmed 12/16/17] PFSH Medical History Chest pain (Acute) Elevated troponin (Acute) Nephrolithiasis (Chronic) HTN (hypertension) (Chronic) Anxiety (Chronic) PAF (paroxysmal atrial fibrillation) (Chronic) GERD (gastroesophageal reflux disease) (Chronic) Obesity (BMI 30-39.9) (Chronic) BPPV (benign paroxysmal positional vertigo) (Chronic) HLD (hyperlipidemia) (Chronic) Thoracic aortic aneurysm without rupture (Chronic) Surgical History History of left heart catheterization (Chronic) History of cardiac radiofrequency ablation (Acute) Family History Brother Hypertension Mother Heart disease Colon cancer Sister Diabetes Sister Diabetes Sister Diabetes Social History Smoking Status: Never smoker alcohol intake: never substance use type: does not use what type of physical activity do you participate in: walking frequency: 1-2 times per week duration: 15-30 minutes/day HPI RIGHT SHOULDER: Details: ATTILA DEL CID is a 47 year old M here today for right shoulder pain. Patient has had right shoulder for about 2 months. He denies any recent injury but notes he dislocated it 20 years ago. Patient has pain over his anterior and lateral shoulder. He has decreased range of motion and weakness. Patient has increased pain with all activities. His pain is constant and nothing takes away his pain. He completed physical therapy about 3 months ago which was not helpful. Patient had an injection about 2 months ago by a doctor at the [facility] which was helpful for about 3 weeks. Patient had xrays which he did not bring with him. He denies any MRI. Denies numbness, tingling or other associated symptoms. ROS Const Reports system reviewed and no additional complaints, except as docu Eyes Reports system reviewed and no additional complaints, except as docu ENT Reports system reviewed and no additional complaints, except as docu Card Reports system reviewed and no additional complaints, except as docu Resp Reports system reviewed and no additional complaints, except as docu GI Reports system reviewed and no additional complaints, except as docu Reports system reviewed and no additional complaints, except as docu Musc Reports joint pain, Reports stiffness, Reports muscle weakness Skin/Breast Reports system reviewed and no additional complaints, except as docu Neuro Yes system reviewed and no additional complaints, except as docu Psych Reports system reviewed and no additional complaints, except as docu Endo Reports system reviewed and no additional complaints, except as docu Ortho Exam Right Shoulder Skin/Wound: Yes CDI Contralateral Normal: Yes Testing: Positive AROM-Forward Elevation 0-180, AROM-External Rotation at side 0-60, empty can, Drop Arm and TTP Biceps Internal Rotation: T12 SHOULDER: weak ER, Assessment AND Plan Plan Personally reviewed the patient's medical history, medications, surgeries and recent exams if available. X-rays were reviewed. There is no obvious fracture, dislocation, or lucency noted. Educated the patient on the anatomy of the shoulder and etiology of his pain, explained that he rtc weakness and pos drop arm. We will order an MRI for RTC eval, its too soon for another injection and has failed PT> Follow up after MRI or sooner if pain, swelling, numbness or associated symptoms, or concerns develop. All questions answered. Patient in agreement of plan. Orders Orders: Medications Discontinued: Coding Level of Care Code Off vis,new,level 3 12/19/17 1407 <Electronically signed by Claribel Batista DO> Date Claribel Batista DO Cosigner Signature: Date (if applicable) CC: SHOULDER MIN 2 VIEWS Observed: 12/19/2017 Status: F Source: [facility] 1:29 PM [facility] Imaging Services [address] [place] [address] Shoulder min 2 Views MR#: [id number] Acct: [id number] Name: ATTILA DEL CID Rep #: [id number] : 1970 M 47 From: Teto Mccann DO PCP: Nyla Bearden MD Status: REG CLI Study: Shoulder min 2 Views Date of Exam: 12/19/17 Exam# [id number] Ordering Dr: Claribel Batista DO STUDY: X-RAY - RIGHT SHOULDER REASON FOR EXAM: Male, 47 years old. Pain x2 months. No history of an injury. TECHNIQUE: 3 view(s) of the shoulder. COMPARISON: None. FINDINGS: Normal glenohumeral articulation. Normal acromioclavicular joint. Normal acromion. There is no demonstrated inferior acromial spur. Normal humeral head and visualized proximal humerus. The soft tissue structures are unremarkable. Normal visualized pulmonary apex. RAD/Shoulder min 2 Views IMPRESSION: Normal x-ray examination of the shoulder. Electronically Signed: Teto Mccann DO at 15:20 EST Tel , Service support , CC: Claribel Batista DO; Nyla Bearden MD 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: Signed 12 LEAD ELECTROCARDIOGRAM Observed: 12/18/2017 Status: F Source: [place] 2:11 PM [facility] Cardiovascular Services [address] [place] [address] 12 Lead EKG 12/16/172050 MR#: [id number] Acct: [id number] Name: ATTILA DEL CID Rep #: [id number] : 1970 47 From: Jesse Stokes MD Attending Dr: Status: DEP ER Ordering Dr: Provider, Ed P. Date: 12/16/17 Location: ED Sex: M C Admitted: Test Reason : CP Blood Pressure : / mmHG Vent. Rate : 080 BPM Atrial Rate : 080 BPM P-R Int : 160 ms QRS Dur : 084 ms QT Int : 366 ms P-R-T Axes : 006 016 047 degrees QTc Int : 422 ms Normal sinus rhythm Normal ECG Confirmed by STEVEN CONNOR, JESSE ([id number]), dictionary editor RICCO LEWIS ([id number]) on 12/18/2017 2:11:11 PM Referred By: EMMANUEL Confirmed By:JESSE STOKES MD 12/18/17 1411 Date Jesse Stokes MD CC: ED PHYSICIAN PROVIDER; Nyla Bearden MD Signed EMERGENCY DEPARTMENT Observed: 12/17/2017 Status: F Source: [place] SUMMARY 1:22 AM [facility] REPOSIT[facility] Medical Records Department [address] [place] [address] Emergency Department Summary 12/16/17 2303 MR#: [id number] Acct: [id number] Name: ATTILA DEL CID Rep #: [id number] : 1970 47 From: Rosalba Stein MD PCP: Nyla Bearden MD Status: PRE ER - ER Visit Summary Date of Service: 12/16/17 Chief Complaint: Chest pain History of Present Illness: The patient is a 47 M presenting with chest pain 1 hour. Patient complains of a midsternal pain radiating to both his shoulders. He denies diaphoresis. He has mild shortness of breath associated with this. He has nausea with no vomiting. He has a history of hypertension, hypercholesterolemia. He had an ablation performed at [facility] in September for atrial fibrillation. He had a heart catheterization approximately 1 year ago with no intervention. He has a history of ascending aortic aneurysm which is followed by Dr. Stokes. He had a CTA chest 1 month ago which showed stable aneurysm. Physical Examination: Vitals are stable. Patient is afebrile. Alert no acute distress. HEENT exam is unremarkable. Neck is supple. Lungs are clear and equal bilaterally. Heart is regular rate and rhythm. Abdomen is soft nontender nondistended. Extremities are unremarkable. Skin is warm and dry. No focal neurologic deficit. Remainder of exam is unremarkable. Emergency Department Course and Treatment: Patient was given aspirin, nitro. He had no change with nitro. He is given morphine, Zofran with improvement. EKG is sinus rhythm rate of 80 with no acute ischemic changes. Chest x-ray shows no acute process. CBC, chemistries unremarkable. Troponin is negative. Discussed with Dr. Stokes, he knows the patient well. He agrees with delta troponin and outpatient follow up if negative. Delta troponin is negative. He is advised to return to the ED for any worsening complaints. Advised to follow up with Dr. Stokes. Disposition: Discharge home Impression: Chest pain This note was generated with Cloudcity dictation software. It may contain incorrect words, spelling, and punctuation that were not noted in review of the chart prior to signing ED Disposition - Plan for ED Patient: Chief Complaint: Chest Pain Instructions: ED Chest Pain Atypical Unkn Cause Referrals: Jesse Stokes MD [STAFF PHYSICIAN] - Nyla Bearden MD [Primary Care Provider] - What to do if you have Problems For any increased pain, shortness of breath, bleeding, nausea or vomiting, chest pain, or any unexpected problems, contact your Primary Care Provider. Call [facility] ([phone]) or report to the closest Emergency Room. Call 911 if necessary. 12/17/17 012 <Electronically signed by Rosalba Stein MD> Date Rosalba Stein MD Cosigner Signature (If Indicated): Date CC: Nyla Bearden MD DISCHARGE INSTRUCTION Observed: 12/17/2017 Status: F Source: [place] 1:11 AM [facility] REPOSIT[facility] Medical Records Department [address] [place] [address] Discharge Instruction 12/17/17109 MR#: [id number] Acct: [id number] Name: ATTILA DEL CID Rep #: [id number] : 1970 47 From: Rosalba Stein MD PCP: Nlya Bearden MD Status: PRE ER ED Disposition - Plan for ED Patient: Chief Complaint: Chest Pain Instructions: ED Chest Pain Atypical Unkn Cause Referrals: Nyla Bearden MD [Primary Care Provider] - Jesse Stokes MD [STAFF PHYSICIAN] - What to do if you have Problems For any increased pain, shortness of breath, bleeding, nausea or vomiting, chest pain, or any unexpected problems, contact your Primary Care Provider. Call [facility] ([phone]) or report to the closest Emergency Room. Call 911 if necessary. 12/17/17 011 <Electronically signed by Rosalba Stein MD> Date Rosalba Romeroigndolores Signature (If Indicated): Date CC: Nyla Bearden MD TROPONIN-I Collected: 12/17/2017 Status: F Source: [place] 12:25 AM [facility] Order Comment: 'TROP' Serial specimen #1, #2, #3, or #4: 2 TYPE CODE TESTS RESULT OUT OF RANGE REFERENCE UNITS LAB L501.4010 <0.06 ng/mL Normal < 0.02 TROPONIN-I Result Comment: TROPONIN-I EXPECTED VALUES <0.05 NEGATIVE 0.06 - 0.59 AT RISK OF MA > OR = 0.60 SUGGEST MA Performed By: #### L501.4010 #### [facility] [address] [place], [place], [address] CBC W/DIFF, AUTOMATED Collected: 12/16/2017 Status: F Source: [place] 9:05 PM [facility] TYPE CODE TESTS RESULT OUT OF RANGE REFERENCE UNITS LAB L100.1000 4.4-11.0 K/mm3 Normal WBC 7.2 LAB L100.1200 4.6-6.2 M/mm3 Normal RBC 5.69 LAB L100.1300 13.0-16.5 g/dl Normal HGB 14.6 LAB L100.1400 40-54 % Normal HCT 44.8 LAB L100.1500 80-94 fL Low MCV 78.7 LAB L100.1600 27.0-32.0 pg Low MCH 25.7 LAB L100.1700 32-36 g/gl Normal MCHC 32.6 LAB L100.1810 11.6-14.6 % Normal RDW CV 14.5 LAB L100.1820 35.1-43.9 fl Normal RDW SD 41.1 LAB L100.1900 150-450 K/mm3 Normal PLT 276 LAB L100.2000 6.2-12.0 fl Normal MPV 9.1 LAB L100.2100 47-70 % Normal NEUT% 58.7 LAB L100.2200 19-41 % Normal LY% 31.5 LAB L100.2300 0-10 % Normal MONO% 8.1 LAB L100.2400 0-5 % Normal EO% 1.3 LAB L100.2500 0-1 % Normal BASO% 0.4 LAB L100.2550 0.0-0.9 % Normal IM GRAN % 0.000 Result Comment: IG% - Immature Granulocytes (promyelocytes, myelocytes and metamyelocytes) > 1% indicates that a LEFT SHIFT is Present. LAB L100.2620 2.0-7.7 X10 3/uL Normal Absolute Neut 4.2 LAB L100.2720 0.83-4.51 X10 3/ul Normal Absolute Lymph 2.26 Performed By: #### L100.0100 #### [facility] [address] [place], [address] BASIC METABOLIC Collected: 12/16/2017 Status: F Source: [place] PROFILE (BMP) 9:05 PM [facility] Order Comment: 'TROP' Serial specimen #1, #2, #3, or #4: 1 TYPE CODE TESTS RESULT OUT OF RANGE REFERENCE UNITS LAB L501.0100 74-106 mg/dL Normal GLU 96 Result Comment: Please note revised GLUCOSE reference range effective 2017. LAB L501.1000 7-18 mg/dL Normal BUN 12 LAB L501.1100 0.70-1.30 mg/dL Normal CREAT,SERUM 0.87 Result Comment: The validity of the calculated GFR AND GFRAA in patients over 70 years has not been determined. Clinical correlation is essential. LAB L501.1110 >60 mL/min Normal EST GFR 99 Result Comment: Non- GFR Calc LAB L501.1115 >60 mL/min Normal EST GFR - AA 120 Result Comment: GFR Calc LAB L501.1255 ml/min Normal Estimated CRCL 111.80 LAB L501.1300 10-20 RATIO BUN/CRE Normal 13.8 LAB L501.2200 8.5-10 mg/dL .1 CA Normal 9.1 LAB L501.5300 136-14 mmol/L 5 NA Normal 141 LAB L501.5600 3.5-5. mmol/L 1 K Normal 3.6 LAB L501.5900 98-107 mmol/L CL Normal 105 LAB L501.6100 21.0-3 mmol/L 2.0 CO2 Normal 29.0 LAB L501.6200 5-15 GAP Normal 7 Performed By: #### L500.2500, L501.4010 #### [facility] [address] [place], [address] TROPONIN-I Collected: 12/16/2017 Status: F Source: [place] 9:05 PM [facility] Order Comment: 'TROP' Serial specimen #1, #2, #3, or #4: 1 TYPE CODE TESTS RESULT OUT OF RANGE REFERENCE UNITS LAB L501.4010 <0.06 ng/mL Normal < 0.02 TROPONIN-I Result Comment: TROPONIN-I EXPECTED VALUES <0.05 NEGATIVE 0.06 - 0.59 AT RISK OF MA > OR = 0.60 SUGGEST MA Performed By: #### L500.2500, L501.4010 #### [facility] [address] [facility] [place] [place], [address] CHEST 1 VIEW Observed: 12/16/2017 Status: F Source: [place] (PORTABLE) 8:53 PM [facility] RE[facility] Imaging Services [address] [place] [address] Chest 1 View (Portable) MR#: [id number] Acct: [id number] Name: ATTILA DEL CID Rep #: [id number] : 1970 M 47 From: Soto Mena MD PCP: Nyla Bearden MD Status: PRE ER Study: Chest 1 View (Portable) Date of Exam: 12/16/17 Exam# [id number] Ordering Dr: Rosalba Stein MD STUDY: X-RAY CHEST REASON FOR EXAM: Male, 47 years old. Chest pain TECHNIQUE: Single AP portable view of the chest. COMPARISON: 10/25/2017. FINDINGS: The lungs are clear and expanded. There is no demonstrated pleural abnormality. Normal size heart. Normal mediastinum and ruben. Normal visualized pulmonary arteries. Normal visualized aortic arch and descending thoracic aorta. Normal visualized thoracic spine. Normal visualized ribs, clavicles, and shoulders. There is no demonstrated abnormality of the visualized soft tissue structures of the upper abdomen. RAD/Chest 1 View (Portable) IMPRESSION: Normal x-ray examination of the chest. Electronically Signed: Soto Mena MD at 21:49 EST , Service support , CC: Rosalba Stein MD; Nyla Bearden MD 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: Signed EGD ([facility] SITE) Observed: 12/02/2017 Status: F Source: [place] 11:57 AM [facility] Patient: ATTILA DEL CID : 1970 (47/M) Acct Num: [id number] Phys: John Davis Unit Num: [id number] Loc: LABSPEC Specimen: [id number] Received: 12/02/17 - 1614 Spec Type: EGD BIOPSY TISSUES TISSUES: Gastric mucous membrane COMMENT The results of immunohistochemistry for Helicobacter pylori will be reported separately ([id number]). GROSS DESCRIPTION Received in fixative is one container labeled with the patient's name and designated gastric biopsy. The specimen consists of multiple irregular fragments of light casiano soft tissue that in aggregate measure 0.6 x 0.2 x 0.1 cm. The specimen is totally submitted in one cassette. / AM:abbe 12/03/17 TC:3 CPT: 70716 HEADER OPERATION: EGD with biopsy PRE-OP DIAGNOSIS: Nausea, abdomen pain TISSUE SUBMITTED: Biopsy gastric antrum/body, rule out gastritis MICROSCOPIC DESCRIPTION Slides are reviewed. Sections show small collections and groups of plasma cells in the mucosa. Active inflammation is not present. These findings are consistent with mild chronic gastritis. MICROSCOPIC DIAGNOSIS Gastric antrum/body, biopsy: Gastritis. AM:abbe 12/04/17 Signed Calvin Dawson 12/04/17 <signature on file> Performed By: #### PEGD #### [facility] [address] [place], [address] IMMUNOHISTOCHEMISTRY Observed: 12/02/2017 Status: F Source: [place] 12:00 AM [facility] Patient: ATTILA DEL CID : 1970 (47/M) Acct Num: [id number] Phys: John Davis Unit Num: [id number] Loc: LABSPEC Specimen: [id number] Received: 12/04/17 - 1111 Spec Type: IMMUNO TISSUES TISSUES: Stomach, NOS SPECIMEN INFORMATION: Tissue Source: Biopsy gastric antrum/body Clinical Info: Nausea, abdomen pain Specimen Number: [id number] CPT code: 16041 METHODOLOGY: Deparaffinized sections of prefer/formalin-fixed tissue or PAP/DQ stained slides are incubated with monoclonal/polyclonal antibodies/oligonucleotide probes. Localization is made via biotin free immunoperoxidase method. Appropriate controls are performed and reacted as expected. Results on target cell population are indicated in the following table: RESULTS: ANTIBODY / CLONE RESULT H Pylori (polyclonal) negative These tests were developed and their performance characteristics determined by [facility]. They may not have been cleared or approved by the U.S. Food and Drug Administration. The FDA has determined that such clearance or approval is not necessary. INTERPRETATION: Gastric antrum/body, biopsy: Negative for Helicobacter pylori organisms. AM:rg 12/05/17 PHYSICIAN AND INSTITUTION [place] [address] Signed [facility] 12/05/17 <signature on file> Performed By: #### PIMM #### [facility] [address] [place] [address]. [place], [address] EMERGENCY DEPARTMENT Observed: 12/01/2017 Status: F Source: [place] SUMMARY 12:08 AM [facility] Medical Records Department [address] [place] [address] Emergency Department Summary 11/30/17 2356 MR#: [id number] Acct: [id number] Name: ATTILA DEL CID Rep #: [id number] : 1970 47 From: Wyatt Brunson MD PCP: Nyla Bearden MD Status: REG ER - ER Visit Summary Date of Service: 11/30/17 Chief Complaint: Right shoulder pain History of Present Illness: The patient is a 47 M with gradual onset of pain in his right shoulder for the past approximately 1.5-2 months, 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 He is right- hand dominant. He was referred to sports medicine Dr. Kahn, who performed a cortisone injection in his bursa, he states he had relative relief for about 2 weeks but then it gradually became worse and now it is more severe. Hurts more to lie on his right shoulder. Overhead movements are the worst pain. Pain occasionally shoots down towards hand. Physical Examination: Vital signs are normal he is in no distress. He does have subacromial pain and tenderness of the right shoulder, intact axial nerve sensation and distally in his right upper extremity. No anterior tenderness. No deformities. He has full range of motion of the right shoulder, but more pain when he goes over his head. Positive Alford test. Also has increased pain when he uses his right hand to touch his left shoulder. Test Results: n/a Emergency Department Course and Treatment: His symptoms and exam are consistent with right shoulder bursitis. He had x-rays obtained in the office as an outpatient and there is no indication to repeat those at this time. I reviewed and oars report, he has had multiple prescriptions for narcotics in the past, none that are active, the last of which was 1-2 months ago. We will give him a short course of [place]; considered Voltaren gel since he is on Eliquis, but it appears that the combination is relatively contraindicated, so will avoid. Treatment Plan: As above and close outpatient follow-up with sports medicine Disposition: Discharge home Impression: Right shoulder impingement syndrome This note was generated with Cloudcity dictation software. It may contain incorrect words, spelling, and punctuation that were not noted in review of the chart prior to signing ED Disposition - Plan for ED Patient: Disposition: Home or Assisted Living Chief Complaint: Upper Extremity Injury Instructions: What Is Impingement Syndrome? Prescriptions: Oxycodone HCl/Acetaminophen [Percocet 5/325] 1 tab PO Q6H PRN PRN 3 Days #10 tab PRN Reason: Pain Referrals: Camron Kahn, [STAFF PHYSICIAN] - 5-7 Days What to do if you have Problems For any increased pain, shortness of breath, bleeding, nausea or vomiting, chest pain, or any unexpected problems, contact your Primary Care Provider. Call [facility] ([phone]) or report to the closest Emergency Room. Call 911 if necessary. 12/01/17 0008 <Electronically signed by Wyatt Brunson MD> Date Wyatt Brunson MD Cosigner Signature (If Indicated): Date CC: Camron Kahn DO; Nyla Bearden MD INTERNAL MEDICINE Observed: 11/18/2017 Status: F Source: [place] OFFICE VISIT 8:42 AM [facility] Internal Medicine [address] [place] [address] OFFICE VISIT Date of Service: 11/11/17 MR#: [id number] Acct: [id number] Name: ATTILA DEL CID Rep #: [id number] : 1970 Provider: Nyla Bearden MD Age/Sex: 47/M Location: [facility] Status: Signed Intake Vital Signs11/11/17 Height 5 ft 11 in 11/11/17 Weight: 250 lb 8 oz Intake 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 Accompanied by: None Is patient in pain?: No Allergies clonidine Allergy (Intermediate, Verified 10/28/17 20:52) rash levofloxacin [From Levaquin] Allergy (Verified 10/28/17 20:52) Rash Penicillins Allergy (Verified 10/28/17 20:52) Hives bupropion Adverse Reaction (Intermediate, Verified 10/28/17 20:52) vomiting celecoxib [From Celebrex] Adverse Reaction (Intermediate, Verified 10/28/17 20:52) vomiting eletriptan Adverse Reaction (Intermediate, Verified 10/28/17 20:52) Vomiting topiramate [From Topamax] Adverse Reaction (Intermediate, Verified 10/28/17 20:52) vomiting fentanyl Adverse Reaction (Unknown, Verified 10/28/17 20:52) unknown acetaminophen [From Vicodin] Adverse Reaction (Verified 10/28/17 20:52) Nausea hydrocodone bitartrate [From Vicodin] Adverse Reaction (Verified 10/28/17 20:52) Nausea Medications Pantoprazole Sodium [Protonix] 40 mg PO DAILY 04/22/16 [History Confirmed 10/25/17] Carvedilol [Coreg] 25 mg PO BID 01/31/17 [History Confirmed 10/25/17] Meclizine HCl [Antivert] 12.5 mg PO QODAY 06/16/17 [History Confirmed 10/25/17] Albuterol Inhaler [Ventolin Hfa] 1 - 2 puff INHALATION Q4H PRN PRN #1 inhaler 07/15/17 [Rx Confirmed 10/25/17] Acetaminophen/Butalbital/Caffe [Fioricet] 1 tab PO Q4H PRN PRN #8 tab 09/11/17 [Rx Confirmed 10/25/17] Apixaban [Eliquis] 5 mg PO BID 09/21/17 [History Confirmed 10/25/17] Doxycycline Monohydrate 100 mg PO BID #20 cap 10/18/17 [Rx Confirmed 10/28/17] Ondansetron [Zofran Odt] 4 mg PO Q8H PRN PRN #10 tab 10/18/17 [Rx Confirmed 10/28/17] Colchicine 0.6 mg PO BID #20 cap 10/25/17 [Rx Confirmed 10/28/17] furosemide 40 mg tablet 40 mg PO QDAY #90 tab 10/29/17 [Rx Confirmed 10/29/17] lisinopril 40 mg tablet 40 mg PO QDAY #90 tab 10/29/17 [Rx Confirmed 10/29/17] atorvastatin 20 mg tablet 20 mg PO QDAY #60 tab 11/11/17 [Rx Confirmed 11/11/17] venlafaxine ER 37.5 mg tablet,extended release 24 hr 37.5 mg PO QDAY #30 tab 11/11/17 [Rx Confirmed 11/11/17] PFSH Medical History Chest pain (Acute) Elevated troponin (Acute) Nephrolithiasis (Chronic) HTN (hypertension) (Chronic) Anxiety (Chronic) PAF (paroxysmal atrial fibrillation) (Chronic) GERD (gastroesophageal reflux disease) (Chronic) Obesity (BMI 30-39.9) (Chronic) BPPV (benign paroxysmal positional vertigo) (Chronic) HLD (hyperlipidemia) (Chronic) Thoracic aortic aneurysm without rupture (Chronic) Surgical History History of left heart catheterization (Chronic) History of cardiac radiofrequency ablation (Acute) Family History Brother Hypertension Mother Heart disease Colon cancer Sister Diabetes Sister Diabetes Sister Diabetes Social History Smoking Status: Never smoker alcohol intake: never substance use type: does not use what type of physical activity do you participate in: walking frequency: 1-2 times per week duration: 15-30 minutes/day HPI PHYSICAL: Details: ATTILA DEL CID, is a 47yo M who presents to the office today to establish care. he was referred here by Dr. Stokse. He reports a history of Anxiety spanning several years. He is currently on Buspirone and prior to that was on Zoloft which helped control his anxiety for about 6 years. He states that his anxiety is not well controlled on Buspirone even after increasing the dose from 7.5mg daily to BID. He would like another medication for this. He was seen by Dr. Stokes about 2 weeks ago. In September, he had an ablative procedure for Afib done at the [facility]. He is currently in NSR. ROS Const Constitutional: Positive for headache(s), sleep problems and snoring; no body ache, chills, fatigue, fever(s), frequent falls, weight change, change in appetite, excessive sweating or weakness Eyes Eyes: No blurry vision, change in vision, eye pain or light sensitivity ENT ENT: Positive for headache(s) and neck pain; no abnormal hearing, ear pain, nasal congestion, nasal discharge or sore throat Resp Respiratory: Positive for snoring; no shortness of breath or wheezing Cardio Cardiology: No excessive sweating, chest pain at rest, chest pain with exertion, shortness of breath, dyspnea on exertion, orthopnea, palpitations or lightheadedness Gastro GI: No abdominal pain, change in bowel habits, diarrhea, constipation, vomiting, nausea/dyspepsia or cramping Musc Musculoskeletal: Positive for neck pain; no abnormal walking, joint pain, back pain, limited range of motion, numbness or tingling Skin Skin: No redness, dry skin, itching, lesions, wounds or rash Neuro Neurology: Positive for headache(s); no frequent falls, weakness, abnormal hearing, abnormal walking, numbness, tingling, abnormal speech, dizziness or memory loss Psych Psychiatric: No change in appetite, No memory loss, Positive for anxiety, Positive for depression, No Thoughts of harming yourself/Others Endo Endocrine: No fatigue, excessive sweating, cold intolerance, increased thirst/drinking, heat intolerance, increased hunger or flushing Aller/Imm Allergy/Immunologic: No wheezing, itchy eyes, seasonal allergy symptoms or hives Matias/Lymp Hematologic/Lymphatic: No easy bleeding, easy bruising or enlarged lymph nodes Exam Const General: cooperative, no acute distress Orientation: alert, awake, oriented x3 HENMT Head: atraumatic, normocephalic Ears: hearing grossly normal bilaterally Resp Effort AND Inspection: normal respiratory effort, able to speak in complete sentences Auscultation: Bilateral: Clear to Auscultation Cardio Rate: regular rate Rhythm: regular rhythm Heart Sounds: S1 normal, S2 normal GI Inspection: obesity Palpation: soft, no hepatosplenomegaly Neuro General: alert, awake, oriented x3, CN's II-XI intact bilaterally, moves all extremities Extrem General: no clubbing, cyanosis or edema Psych Appearance: grossly normal Mental Status: mental status grossly normal Affect: sad Speech and Movement: speech and movement normal Assessment AND Plan 1. Anxiety F41.9 Plan Initially on Zoloft however, was started on Buspirone after he had appeared to have experienced a plateau on Zoloft. Buspirone is not properly controlling his symptoms. Advised to taper off Buspar over 2 weeks. Will start on Effexor 37.5mg daily and jun up as tolerated. Follow up in 2 weeks. 2. Pure hypercholesterolemia E78.00 Plan Last Lipid profile with a normal total cholesterol and LDL. HDL however low with a high VLDL. Advised to resume his Statin next month as stated in cardiology assesement. Prescription sent to the pharmacy. 3. Other chest pain R07.89 Plan Resolved since starting Ibuprofen. Continue current management. Follow up with Cardio as scheduled. This note was generated with Dragon dictation software. It may contain incorrect words, spelling, and punctuation that were not noted in checking the note before signing. Plan Detail Other Medications New: Discontinued: Follow Up 6 Weeks Coding Level of Care Code Off vis,new,level 3 Diagnoses Anxiety F41.9 Pure hypercholesterolemia E78.00 Hyperlipidemia type: pure hypercholesterolemia Other chest pain R07.89 Chest pain type: other chest pain 11/18/17 0842 <Electronically signed by Nyla Bearden MD> Date Nyla Bearden MD Cosigner Signature: Date (if applicable) CC: ALLERGIES ALLERGIES DATE TYPE / CODE NAME / CODE REACTION SEVERITY SOURCE 11/08/2018 Drug hydrocodone Nausea Unknown [facility]/416 bitartrate/[id number] Hospital 420872(SNOM 555(RXNORM) Repository ED CT) 11/08/2018 Drug Penicillins/E92934 Hives Unknown [facility]/416 0476(RXNORM) Hospital 500157(SNOM Repository ED CT) 11/08/2018 Drug clonidine/[id number] Rash [place] [facility]/416 95(RXNORM) Hospital 896429(SNOM Repository ED CT) 11/08/2018 Drug bupropion/[id number] Vomiting [facility]/416 11(RXNORM) [facility] 192849(SNOM Repository ED CT) 11/08/2018 Drug topiramate/O101115 Vomiting [facility]/416 453(RXNORM) [facility] 576427(SNOM Repository ED CT) 11/08/2018 Drug levofloxacin/F0060 Rash Unknown [facility]/416 39716(RXNORM) Hospital 822342(SNOM Repository ED CT) 11/08/2018 Drug celecoxib/[id number] Vomiting [place] [facility]/416 31(RXNORM) Hospital 297213(SNOM Repository ED CT) 11/08/2018 Drug eletriptan/P366481 Vomiting [facility]/416 521(RXNORM) [facility] 810601(SNOM Repository ED CT) 11/08/2018 Drug ketorolac/V1841965 Other Unknown [facility]/416 12(RXNORM) Hospital 426803(SNOM Repository ED CT) 11/04/2018 DRUG KETOROLAC [facility] INGREDI/[address] 654140(SNOM Repository ED CT) 10/28/2018 DRUG LEVOFLOXACIN RASH [facility] INGREDI/419 System Repository 647610(SNOM ED CT) 10/28/2018 [facility]99746 System Repository 1003(SNOMED CT) 10/28/2018 DRUG/747033 HYDROCODONE-ACETAM [facility]ET [facility]AC [facility] [facility] 003(SNOMED INOPHEN System Repository CT) 04/02/2018 Drug fentanyl/[id number] Unknown Unknown [facility]/416 1(RXNORM) Hospital 213534(SNOM Repository ED CT) 02/26/2018 Drug acetaminophen/F006 Nausea Unknown [facility] Allergy/416 547012(RXNORM) Hospital 662309(SNOM Repository ED CT) 10/09/2017 DRUG ATORVASTATIN OTHER: SEE C [facility] INGREDI/419 Main [place] 979243(SNOM Repository ED CT) 04/13/2017 DRUG LEVOFLOXACIN RASH [facility] INGREDI/419 Main [place] 666028(SNOM Repository ED CT) 07/17/2016 DRUG CELECOXIB Vomiting [facility] INGREDI/419 Main [place] 947220(SNOM Repository ED CT) 07/17/2016 DRUG CLONIDINE RASH [facility] INGREDI/419 Main [place] 035006(SNOM Repository ED CT) 07/17/2016 DRUG FENTANYL GI UPSET [facility] INGREDI/419 Main [place] 316543(SNOM Repository ED CT) 07/17/2016 DRUG ELETRIPTAN HBR Vomiting [facility] INGREDI/419 Main [place] 091402(SNOM Repository ED CT) 07/17/2016 DRUG TOPIRAMATE Vomiting [facility] INGREDI/419 Main [place] 563621(SNOM Repository ED CT) 07/17/2016 DRUG BUPROPION HCL Vomiting [facility] INGREDI/419 Main [place] 401558(SNOM Repository ED CT) 12/30/2013 DRUG PENICILLIN G RASH [facility] INGREDI/419 Main [place] 697724(SNOM Repository ED CT) 12/30/2013 DRUG/008270 HYDROCODONE-ACETAM Vomiting [facility] 003(SNOMED INOPHEN [facility] CT) Repository 11/17/2002 Drug NO KNOWN DRUG [facility] Class/70804 ALLERGIES System Repository 1003(SNOMED CT) NG/42098038 ATORVASTATIN [facility]) Repository NG/99218388 CELECOXIB [facility] CT) Repository NG/51812281 CLONIDINE [facility]OMED [facility] CT) Repository NG/96273906 FENTANYL [facility](SNOMED [facility] CT) Repository NG/35649357 LEVOFLOXACIN [facility]OMED [facility] CT) Repository NG/00883301 PENICILLIN G [facility](SNOMED [facility] CT) Repository NG/10430843 ELETRIPTAN HBR [facility](SNOMED [facility] CT) Repository NG/95839470 TOPIRAMATE [facility](SNOMED [facility] CT) Repository NG/67409554 HYDROCODONE-ACETAM [facility](SNOMED [facility] CT) Repository NG/68852405 BUPROPION HCL [facility](SNOMED Health System CT) Repository ENCOUNTERS ENCOUNTERS ADMIT/DISCHARGE ACCOUNT NUMBER ADMITTING ENCOUNTER LOCATION SOURCE CLASS 11/15/2018 [id number] Ambulatory Building:[facility] URoom: [place] Y769Ojl: [place] [address] Center Repository 11/12/2018/ [id number] Emergency BBuilding:[address] Repository 11/12/2018/ [id number] Ambulatory [address] Repository 11/12/2018/ [id number] Ambulatory [address] Repository 11/12/2018 [id number] Ambulatory [facility] MEDICAL Repository CENTERBuildi ng:URAG 11/08/2018/ [id number] Emergency [place] ding:ED Repository 11/07/2018/ [id number] Ambulatory BMSBuilding: [place] [address] [place] [address] Repository 11/05/2018/ [id number] Emergency [address] ding:ED Repository 11/04/2018/ [id number] Ambulatory [address] Main [place] Repository 10/31/2018 [id number] Ambulatory [address]in[address] [place] [address] CDURoom: 1A System CDUBed: Repository [id number] 10/28/2018/ [id number] Unknown Emergency [facility] 019 uildin [facility] 59Room: BV System ED 05Bed: BV Repository ED 05 10/28/2018/ [id number] Ambulatory 9531Building [facility] 019 :PMERRoom: [facility] KXDF5Enc: Repository PMER22 10/28/2018 [id number] Unknown Ambulatory [facility] The [facility] Repository 10/28/2018 [id number] Unknown Ambulatory [facility] The [facility] Repository 10/27/2018/ [id number] Emergency [address] ding:ED Repository 10/23/2018/ [id number] Emergency [address] ding:ED Repository 10/23/2018/ [id number] Ambulatory BBuilding:[facility] 019 D [facility] Repository 10/22/2018 [id number] Ambulatory [facility] MEDICAL Repository CENTERBuildi ng:URAG 10/10/2018 [id number] Ambulatory Building:[facility] Repository 10/09/2018/ [id number] Ambulatory BBuilding:[facility] [employer] 018 D [facility] Repository 10/01/2018/ [id number] Emergency ABuilding:[address] Repository 09/24/2018/ [id number] Emergency [address] Other [place] Repository 09/24/2018/ [id number] Emergency [address] MEDICAL Repository CENTERBuildi ng:AKEDBRoom : EDBed: 01 09/22/2018/12/04 [id number] Emergency [facility] 018 [facility] Other [place] Repository 09/22/2018/ [id number] Emergency ARPIT Brenner [address] MEDICAL Repository CENTERBuildi ng:Meli : EDBed: 06 09/18/2018/ [id number] Ambulatory [place] 018 [facility] Main [place] Repository 09/16/2018/ [id number] Emergency [place] 018 [facility] Other [place] Repository 09/01/2018/ [id number] Emergency BBuilding:ER [facility] 018 O [facility] Repository 08/31/2018/ [id number] Emergency [place] 018 [facility] ding:ED Repository 08/28/2018/ [id number] Emergency BBuilding:ER [facility] 018 O [facility] Repository 08/28/2018/ [id number] Ambulatory Bernie 018 [facility] Main [place] Repository 08/22/2018/ [id number] Ambulatory [address] ding:DROP Repository 08/15/2018 [id number] Ambulatory BuildinA [facility] 2ERoom: System 7X730Ecu: Repository [id number] 08/15/2018 [id number] Ambulatory BuildinB [facility] EDRoom: System 3S624Oyo: Repository [id number] 08/15/2018/ [id number] Emergency BBuilding:ER [facility] 018 O [facility] Repository 08/11/2018/ [id number] Emergency [place] 018 [facility] Other [place] Repository 08/10/2018/ [id number] Emergency [place] 018 [facility] Other [place] Repository 08/09/2018/ [id number] Emergency BBuilding:ER [facility] 018 O [facility] Repository 08/04/2018/ [id number] Emergency [place] 018 [facility] Other [place] Repository 08/02/2018/ [id number] Emergency BBuilding:ER [facility] 018 O [facility] Repository 07/28/2018/10/10 [id number] Ambulatory [address] Repository 07/21/2018/ [id number] Emergency BBuilding:ER Izzy Hodges 018 O [facility] Repository 07/18/2018/ [id number] Emergency BBuilding:ER Izzy Hodges 018 O [facility] Repository 07/18/2018/ [id number] Emergency [place] 018 [facility] ding:ED Repository 07/15/2018/ [id number] KARAN CONNOR, Inpatient ABuilding:CC Izzy Perera Encounter URoom: [facility] 0349Bed: A Repository 07/14/2018/ [id number] KARAN CONNOR, Ambulatory BBuilding:MS Izzy Perera URRoom: [facility] 0236Bed: A Repository 07/14/2018 [id number] [facility] 07/12/2018/ [id number] Emergency [place] ding:ED Repository 07/10/2018 [id number] CHRIS, Ambulatory [facility] MEDICAL Repository WINDSORBuildi ng:AKSUR 07/10/2018/ [id number] CHRIS, Inpatient [address] MEDICAL Repository CENTERBuildi ng:AKORRoom: POOLBed: 30 07/10/2018/ [id number] CHRIS, Ambulatory [address] Repository 07/09/2018 [id number] Ambulatory [facility] MEDICAL Repository CENTERBuildi ng:AKPATB 07/08/2018/ [id number] Emergency [place] ding:ED Repository 07/08/2018 [id number] Ambulatory [facility] ding:PT Repository 07/07/2018 [id number] Ambulatory [facility] ding:HPRAD Repository 07/07/2018/ [id number] Ambulatory BMSBuilding: [place] 018 BMS.[facility] Repository 07/03/2018 [id number] Ambulatory [facility] MEDICAL Repository ALMA ROSABuildi ng:EMILIANOPAG 07/01/2018/ [id number] Emergency [place] 018 [facility] ding:ED Repository 06/27/2018/ [id number] Ambulatory BMSBuilding: [place] 018 BMS.[facility] Repository 06/21/2018 [id number] Emergency [address] [place] [address] EGRoom: System 3A3VCVJhr: Repository [id number] 06/17/2018/ [id number] Emergency [place] 018 [facility] ding:ED Repository 06/17/2018 [id number] Ambulatory BMSBuilding: [place] BMS.[facility] Repository 06/15/2018/ [id number] Emergency [place] 018 [facility] Repository 06/01/2018/ [id number] THUESTAD, Inpatient [place] 018 MARIAH RIVERA) Encounter [facility] Repository 05/30/2018/ [id number] Ambulatory BMSBuilding: [place] 018 BMS.[facility] Repository 05/29/2018/ [id number] Emergency [place] 018 [facility] ding:ED Repository 05/27/2018/ [id number] Emergency [place] 018 [facility] Repository 05/23/2018 [id number] Ambulatory BMSBuilding: [place] BMS.[facility] Repository 05/22/2018 [id number] ISAIAH ANDREW Ambulatory [facility] Repository 05/21/2018/ [id number] Emergency [place] 018 [facility] Repository 05/20/2018/ [id number] Emergency [place] 018 [facility] ding:ED Repository 05/20/2018/ [id number] Ambulatory BMSBuilding: [place] 018 BMS.[facility] Repository 05/16/2018/ [id number] Agyepong, Inpatient [place] Allen Jayden [facility] ding:PCURoom Repository : QCM244Bot: 1 05/16/2018 [id number] Agyepong, Ambulatory BMSBuilding: [place] BMS.[facility] Repository 05/16/2018 [id number] Agyepong, Ambulatory BMSBuilding: [place] Carpenter BMS.[facility] Repository 05/16/2018 [id number] Agyepong, Ambulatory BMSBuilding: Dillonrickey Carpenter BMS..[facility] Repository 05/16/2018 [id number] Agyepong, Ambulatory BMSBuilding: [place] Carpenter BMS.[facility] Repository 05/16/2018 [id number] Agyepong, Ambulatory BMSBuilding: [place] Carpenter BMS.[facility] Repository 05/16/2018/ [id number] Ambulatory BMSBuilding: [place] 018 [facility] Repository 05/15/2018 [id number] Agyepong, Ambulatory BMSBuilding: [place] Carpenter BMS.[facility] Repository 05/15/2018 [id number] Agyepong, Ambulatory BMSBuilding: [place] Carpenter BMS.[facility] Repository 05/15/2018/ [id number] Ambulatory BMSBuilding: [place] 018 B[facility] Repository 05/15/2018/ [id number] Ambulatory BMSBuilding: [place] 018 [facility] Repository 05/14/2018/ [id number] Ambulatory [address] Repository 05/14/2018/ [id number] Ambulatory [address] MEDICAL Repository CENTERBuildi ng:URGR 05/13/2018/ [id number] Emergency [address] Repository 05/07/2018/ [id number] Emergency [address] ding:ED Repository 05/06/2018/ [id number] Ambulatory [address] Repository 05/01/2018/ [id number] CHRIS, Inpatient [address] MEDICAL Repository CENTERBuildi ng:Brenda: POOLBed: 15 05/01/2018/ [id number] PEREZ, Ambulatory Bernie 018 [facility] Repository 04/28/2018 [id number] Ambulatory [facility] Repository 04/28/2018/ [id number] Ambulatory [address] MEDICAL Repository CENTERBuildi ng:AKLBB 04/28/2018/ [id number] Ambulatory BMSBuilding: [place] 018 [facility] Repository 04/22/2018/ [id number] Ambulatory BMSBuilding: [place] 018 [facility] Repository 04/18/2018/ [id number] Ambulatory [address] Repository 04/17/2018 [id number] Ambulatory [facility] MEDICAL Repository CENTERBuildi ng:AGVASACC 04/16/2018/ [id number] Emergency [address] ding:ED Repository 04/16/2018/ [id number] Ambulatory [address] Repository 04/16/2018/ [id number] Ambulatory [address] MEDICAL Repository CENTERBuildi ng:AGVASACC 04/15/2018 [id number] Ambulatory [facility] ding:PSN Repository 04/13/2018/ [id number] Ambulatory [address] Repository 04/11/2018 [id number] Ambulatory [facility] ding:CVS Repository 04/11/2018 [id number] Ambulatory BMSBuilding: [place] [facility] Repository 04/09/2018/ [id number] Ambulatory BMSBuilding: [place] 018 [facility] Repository 04/08/2018/ [id number] Yahir, Ambulatory [place] 018 [facility] ding:PCURoom Repository : YET480Ydy: 1 04/08/2018 [id number] Yahir, Ambulatory BMSBuilding: [place] Edgar BMS.[facility] Repository 04/07/2018 [id number] Ambulatory [place] [facility] ding:CLSP Repository 04/07/2018 [id number] Ambulatory BMSBuilding: [place] [facility] Repository 04/07/2018 [id number] Ambulatory BMSBuilding: [place] BMS.CF.[facility] Repository 04/02/2018/ [id number] Emergency [place] 018 [facility] ding:ED Repository 04/01/2018/ [id number] Emergency [place] 018 [facility] ding:ED Repository 04/01/2018/ [id number] Ambulatory BMSBuilding: [place] 018 [facility] Repository 03/25/2018 [id number] Ambulatory [facility] Repository 03/25/2018/ [id number] Ambulatory [address] MEDICAL Repository CENTERBuildi ng:AKLB 03/25/2018/ [id number] Ambulatory [address] Repository 03/25/2018/ [id number] Ambulatory [address] MEDICAL Repository CENTERBuildi ng:AKUF 03/21/2018/ [id number] Emergency [place] ding:ED Repository 03/20/2018 [id number] Ambulatory BMSBuilding: [place] BMS.[facility] Repository 03/20/2018/ [id number] White, Ambulatory [place] 018 [facility] ding:PCURoom Repository : LZH766Jbu: 1 03/20/2018 [id number] White, Ambulatory BMSBuilding: [place] Kandi BMS.[facility] Repository 03/20/2018/ [id number] Ambulatory BMSBuilding: [place] 018 [facility] Repository 03/20/2018/ [id number] Ambulatory BMSBuilding: [place] 018 [facility] Repository 03/18/2018 [id number] Ambulatory BMSBuilding: [place] BMS.[facility] Repository 03/18/2018 [id number] Ambulatory [facility] MEDICAL Repository CENTERBuildi ng:URGR 03/07/2018/ [id number] Emergency [place] 018 [facility] ding:ED Repository 02/26/2018/ [id number] Ambulatory BMSBuilding: [place] 018 BMS.[facility] Repository 02/25/2018 [id number] Ambulatory BMSBuilding: [place] BMS.[facility] Repository 02/24/2018/ [id number] Emergency [place] 018 [facility] ding:ED Repository 02/21/2018/ [id number] Ambulatory BMSBuilding: [place] 018 B[facility] Repository 02/20/2018/ [id number] Emergency [place] 018 [facility] ding:ED Repository 02/18/2018/ [id number] Ambulatory BMSBuilding: [place] 018 BMS.[facility] Repository 02/18/2018 [id number] Ambulatory BMSBuilding: [place] BMS.[facility] Repository 02/17/2018/ [id number] Emergency [place] 018 [facility] ding:ED Repository 02/16/2018/ [id number] Emergency [place] 018 [facility] ding:ED Repository 02/13/2018/ [id number] Ambulatory BMSBuilding: [place] 018 B[facility] Repository 02/05/2018/ [id number] Ambulatory [place] 018 [facility] ding:PT Repository 01/28/2018 [id number] Ambulatory BMSBuilding: [place] BMS.[facility] Repository 01/21/2018 [id number] Ambulatory Building:[facility] Repository 01/20/2018 [id number] Ambulatory [place] [facility] ding:NM Repository 01/14/2018/ [id number] Ambulatory BMSBuilding: [place] 018 BMS.[facility] Repository 01/14/2018/ [id number] Ambulatory BMSBuilding: [place] 018 BMS.[facility] Repository 01/10/2018/ [id number] Emergency [address] ding:ED Repository 01/03/2018 [id number] Ambulatory [facility] ding:MRI Repository 12/19/2017 [id number] Ambulatory [facility] ding:HPRAD Repository 12/19/2017/ [id number] Ambulatory BMSBuilding: [place] 018 BMS.[facility] Repository 12/16/2017/ [id number] Emergency [address] ding:ED Repository 12/06/2017 [id number] Ambulatory BMSBuilding: [place] BMS.[facility] Repository 12/02/2017 [id number] Ambulatory [facility] ding:LABSPEC Repository 11/30/2017/ [id number] Emergency [place] ding:ED Repository 11/11/2017/ [id number] Ambulatory BMSBuilding: [place] 018 BMS.[facility] Repository PAYERS PAYERS ENCOUNTER GUARANTOR PAYER SUBSCRIBER SOURCE 11/15/2018 ATTILA Abreu [facility] MISCHLERDOB: Insurance:MEDICARE A MISCHLERDOB: [place] AND BPolicy Number: [id number] [facility] [id number] 2 [place], [place] Date:5833-93-64Otvh [place], [place] Repository [address]Now: 330 Name:CARE 48[address]Pxz: (PT) [phone] () 11/12/2018 ATT[facility]A [facility] Center[facility]LERD[facility]: Insurance:MEDICARE MISCHLERDOB: [facility] PART B INSCOPolicy [id number] Repository PILOT STATION Number: 2 [place], [place] [id number] [place] [address]~QHRJKC40@ Date:2018-11-12 01460Jgk: (759) Jose [place]: [phone] (HP) Name:[facility] ()Tel: [phone]) Lpgcdbwjaslxip LLCYJ [phone] () [address] [place] [address]44[address]GK: 11/12/2018 ATTILA Brenner [facility] MISCHLERDOB: Insurance:MEDICARE A MISCHLERDOB: Health System AND BPolicy Number: [id number] Repository PILOT STATION [id number] [place], [place] Date: [address]Zkq: () 11/08/2018 ATTILA AGUIAR Primary ATTILA Carranza [id number] [place]CE[place] Insurance:MEDICARE MISCHLERDOB: Community KAUFMAN PART A [facility] [id number] Number: Repository [address]Dkx: 330 [id number] [phone] () Date:2018-11-08 11/08/2018 Secondary NOT GIVENUNK [place] Insurance:SELF PAY [facility] Number: Effective Repository Date:2018-11-08 11/07/2018 [facility]A [facility]12 [place] Insurance:MEDICARE MISCHLERDOB: Community KAUFMAN PART A olic [id number], [place] Number: Repository 1975[address]Ycn: 330 [id number] [phone] () Date:2018-10-30 11/07/2018 Secondary NOT GIVENUNK [place] Insurance:SELF PAY [facility] Number: Effective Repository Date:2018-11-06 11/05/2018 ATTILA Carranza [id number] [place] Insurance:MEDICARE MISCHLERDOB: Community KAUFMAN PART A olicy [id number] [place], [place] Number: Repository [address]Ekl: 330 [id number] [phone] (HP) Date:2018-11-05 11/05/2018 Secondary ROCCO Carranza Insurance:SELF PAY [facility] Number: Effective Repository Date:2018-11-05 10/31/2018 Attila Abreu [facility] MischlerDOB: Insurance:MedicarePol MischlerDOB: System icy Number: Effective [id number] Repository [place] Date:2017-02-18 [place], [place] [address]Eab: (HP) 10/31/2018 Secondary Attila Abreu [facility] Insurance:MedicarePol MischlerDOB: System icy Number: Effective [id number] Repository Date:2017-02-18 10/28/2018 ATTILA Abreu [facility] MISCHLERDOB: Insurance:MEDICARE MISCHLERDOB: System PART APolicy Number: [id number] Repository PILOT STATION [id number] 2 [place], [place] Date:2017-02-18 [place], [place] [address]Mgl: [phone]: (HP)Tel: [phone] (HP) () 10/28/2018 ATTILA HANEY [facility] MISCHLERDOB: Insurance:MedicarePol MISCHLERDOB: Center icy Number: [id number] Repository NIKOLAS PERDUE, [id number] 3 [place] [id number]: Date:Plan Name:Cody PERDUE [place] B [id number]: (CU) (HP) 10/28/2018 ATTILA Abreu [facility] MISCHLERDOB: Insurance:MEDICARE MISCHLERDOB: System PART APolicy Number: [id number] Repository PILOT STATION [id number] 2 [place], [place] Date:2017-02-18 [place], [place] [address]Vjs: [phone]: (HP)Tel: [phone] (HP) (WP) 10/28/2018 ATTILA Abreu Primary ATTILA Abreu [facility] MISCHLERDOB: Insurance:MEDICARE MISCHLERDOB: System PART APolicy Number: [id number] Repository PILOT STATION [id number] 2 [place], [place] Date:2017-02-18 [place], [place] [address]Bhy: [phone]: (HP)Tel: [phone] (HP) (WP) 10/27/2018 ATTILA Blairoster [id number] [place] Insurance:MEDICARE MISCHLERDOB: [facility] PART A [facility] [id number] Number: Repository [address]Knc: 330 [id number] [phone] (HP) Date:2018-10-27 10/27/2018 Secondary NOT GIVENUNK [place] Insurance:SELF PAY [facility] Hospital Number: Effective Repository Date:2018-10-27 10/23/2018 ATTILA Abreu [place] [id number] [place] Insurance:MEDICARE MISCHLERDOB: [facility] PART A [facility] [id number], [place] Number: Repository [address]Lio: 330 [id number] [phone] (HP) Date:2018-10-23 10/23/2018 Secondary NOT GIVENUNK [place] Insurance:SELF PAY [facility] Hospital Number: Effective Repository Date:2018-10-23 10/23/2018 ATTILA Abreu [facility] MISCHLERDOB: Insurance:MEDICARE MISCHLERDOB: [facility] PART B INSCOPolicy [id number] Repository PILOT STATION Number: [address] [place], [place] [id number] [place] [address]~NOPNYV62@ Date:2018-10-23 9[address]Oez: (330) Jose Manuel: [id number] [phone] (HP) Name:[facility] (HP)Tel: (000) Administrators LLCPO 000-0000 (WP) [address] [place] [address] 197[address]EI: 10/22/2018 ATTILA Abreu [facility] MISCHLERDOB: Insurance:MEDICARE A MISCHLERDOB: [facility] AND BPolicy Number: [id number] Repository PILOT STATION [id number] [place], [place] Date: [address]Pfi: () 10/10/2018 ATTILA Abreu [facility] MISCHLERDOB: Insurance:MEDICARE A MISCHLERDOB: [place] AND BPolicy Number: [id number] [facility] [id number] 2 [place], [place] Date:4786-50-55Hlck [place] Repository [address]Slw: (330) Name:CARE 245[address]Syr: () [phone] () 10/09/2018 ATTILA Abreu Primary ATTILA Abreu [facility] MISCHLERDOB: Insurance:MEDICARE MISCHLERDOB: [facility] PART B INSCOPolicy [id number] Repository PILOT STATION Number: [address] [place], [place] [id number] [place] [address]~DEKFRY95@ Date:2018-10-09 92607Gba: (330) Jose Manuel: [id number] [phone] (HP) Name:[facility] (HP)Tel: (000) Administrators LLCPO 000-0000 (WP) [address] [address]Hjihfxhhb, [place] [address]QW: 10/01/2018 ATTILA Abreu [facility] MISCHLERDOB: Insurance:MEDICARE MISCHLERDOB: [facility] PART B INSCOPolicy [id number] Repository MARIELOS KAUFMAN Number: 2 MARIELOS [place]AUFMAN [place], [place] [id number] [facility] [place] [address]Vsq: (330) Date:2018-10-01 [phone]: (HP) [id number] [phone] Name:[facility] ()Tel: (000) Administrators LLCPO 000-0000 (WP) [address] [address]Jnqkwldxy, [place] [address]SH: 09/24/2018 ATTILA Abreu [place] [facility] MISCHLERDOB: Insurance:MEDICARE A MISCHLERDOB: Health System AND BPolicy Number: [id number] Repository [place] [id number] [facility] [place] Date: [address]Dof: () 09/22/2018 ATTILA [facility]breu [place] [facility]: Insurance:MEDICARE A MISCHLERDOB: Health System AND BPolicy Number: [id number] Repository [place] [place] [id number] [facility] [place] Date: [address]Cyf: () 09/01/2018 [facility] Insurance:MEDICARE MISCHLERDOB: [facility] PART BPolicy Number: [id number] Repository ARCEO [place] [id number] 2 [place]IEL[place], [place] Date:2018-09-01 - [place], [place] [address]Mps: 330 [id number] 428[address]Fjj: () Name:PCGS [phone] Administrators LLCPO (HP)Tel: (000) [address] [address]Prznmbzpl, 000-0000 (WP) [place] [address]SZ: 08/31/2018 ATTILA AIKEN Lois [place] [id number] ARCEO Insurance:MEDICARE MISCHLERDOB: [facility] PART A BPolicy [id number] Number: Repository [address]Afg: 330 [id number] [phone] (HP) Date:2018-08-31 08/31/2018 Secondary NOT GIVENUNK [place] Insurance:SELF PAY [facility] Number: Effective Repository Date:2018-08-31 08/28/2018 ATTILA Abreu Primary ATTILA Lois Izzy [facility] MISCHLERDOB: Insurance:MEDICARE MISCHLERDOB: [facility] PART BPolicy Number: [id number] Repository [place] [id number] 2 [place], [place] Date:2018-08-28 - [place], [place] [address]Leq: 330 [id number] 08[address]Pvd: (HP) Name:[facility] [phone] Administrators LLCPO (HP)Tel: (000) Box , 000-0000 (WP) [place] [address]NQ: 08/22/2018 ATTILA Abreu Primary ATTILAMELCHOR Guyltman [facility] MISCHLERDOB: Insurance:MEDICARE MISCHLERDOB: [facility] PART BPolicy Number: [id number] Repository [place] [id number] 2 [place], [place] Date:2018-08-22 - [place], [place] [address]Ksu: 330 [id number] 237[address]Jux: (HP) Name:[facility] [phone] Administrators LLCPO (HP)Tel: (000) [address] [address]Zfpyilpkh, 000-0000 (WP) [place] [address]CH: 08/15/2018 Attila Abreu Primary Attila Lois [facility] MischlerDOB: Insurance:MedicarePol MischlerDOB: System icy Number: Effective [id number] Repository [place] Date:2017-02-18 [place] [address]Nte: () 08/15/2018 Secondary Attila Abreu [facility] Insurance:MedicarePol MischlerDOB: System icy Number: Effective [id number] Repository Date:2017-02-18 08/15/2018 Attila K Primary Attila Abreu [facility] MischlerDOB: Insurance:MedicarePol MischlerDOB: System icy Number: Effective [id number] Repository [place] Date:2017-02-18 [place] [address]Dvd: () 08/15/2018 Secondary Attila Abreu [facility] [employer] Insurance:MedicarePol MischlerDOB: System icy Number: Effective [id number] Repository Date:2017-02-18 08/15/2018 ATTILA K Primary [facility] MISCHLER[facility]OB: Insurance:MEDICARE MISCHLERDOB: [facility] PART BPolicy Number: [id number] Repository [place] [id number] 2 [place] [place] [facility] [place] Date:2018-08-15 - [place], [place] [address]Stq: [phone] [id number] 916[address]Nxe: () Name:[place] [phone] Administrators LLCPO ()Tel: (071) Tyz [address], 0000000 () [place] [address]FK: 08/09/2018 ATTILA K Primary [facility]A [facility] MISCHLERDOB: Insurance:MEDICARE MISCHLERDOB: [facility] PART BPolicy Number: [id number] Repository [place] [place] [id number] 2 [facility] [place] Date:2018-08-09 - [place], [place] [address]Suf: [phone] [address]Myl: (HP) Name:[facility] [phone] Administrators LLCPO (HP)Tel: (000) [address] [address]Eyporemuw, 000-0000 (WP) [place] [address]RP: 08/02/2018 ATTILA [facility] Insurance:MEDICARE MISCHLERDOB: [facility] PART BPolicy Number: [id number] Repository [place] [id number] 2 [place], [place] Date:2018-08-02 - [place], [place] [address]Jmc: (330) [phone] 150[address]Tuk: (HP) Name:[facility]Angelique [phone] Administrators LLCPO (HP)Tel: (000) [address] 85[address]Olrnvzwcr, 000-0000 (WP) [place] [address]TE: 07/21/2018 [facility] Insurance:MEDICARE MISCHLERDOB: [facility] PART BPolicy Number: [id number] Repository [place] [id number] 2 [place], [place] Date:2018-07-21 - [place], [place] [address]Mex: (330) 5533-64-56Vcmj 188[address]Kqi: (HP) Name:[facility]ique [phone] Administrators LLCPO (HP)Tel: (000) Box , 000-0000 (WP) [place] [address]RV: 07/18/2018 ATTILA [facility] Hospital[facility]: Insurance:MEDICARE MISCHLERDOB: [facility] PART BPolicy Number: [id number] Repository [place] [id number] 2 [place], [place] Date:2018-07-18 - [place], [place] [address]Eju: (330) [phone] 919[address]Mas: (HP) Name:[facility] [phone] Administrators LLCPO (HP)Tel: (000) [address] [address]Cuhejxvfg, 000-0000 (WP) [place] [address]EW: 07/18/2018 ATTIAL Abreu Primary ATTILA Carranza [facility] Insurance:MEDICARE MISCHLERDOB: [place] PART A BPolicy [id number] Hospital [address]Xxl: (330) Number: Repository [phone] () [id number] Date:2018-07-18 07/18/2018 Secondary NOT GIVENKD Carranza Insurance:SELF PAY [facility] Number: Effective Repository Date:2018-07-18 07/15/2018 ATTILA KIRBYEL [facility]: Insurance:MEDICARE MISCHLERDOB: [facility] PART APolicy Number: [id number] Repository [place] [id number] 2 [place], [place] Date:2018-07-15 - [place], [place] [address]Hvc: (330) [phone] [address]Oda: () Name:[facility] Code [phone] [address] (HP)Tel: (000) [phone], [place] 000-0000 (WP) [address]CZ: 07/15/2018 Secondary [facility] Insurance:MEDICARE MISCHLERDOB: [facility] PART BPolicy Number: [id number] Repository [id number] 2 [place] Date:2018-07-15 - [place] 6733-24-69Emqa [address]Vxj: (330) Name:[facility] [phone] Administrators LLCPO (HP)Tel: (000) [address] 19877Dslimnfzk, 000-0000 (WP) [place] [address]YP: 07/14/2018 ATTILA KIRBYEL [facility] CenterERDOB: Insurance:MEDICARE MISCHLERDOB: [facility] PART BPolicy Number: [id number] Repository [place] [id number] 2 [place], [place] Date:2018-07-14 - [place], [place] [address]Jfq: (765) [id number] [address]Pcr: () Name:[facility] [phone] Administrators MICHELLEPO ()Tel: (002) Iqc [address], 000-0000 () [place] [address]UR: 07/14/2018 ATTILA Abreu [place] [id number] Insurance:MEDICARE MISCHLERDOB: Community ND[place], PART A BPolicy [id number] Sunrise Regional Treatment Center [address]Hrq: Number: Repository [id number] () Date:2018-07-14 07/14/2018 Secondary NOT GIVENUNK [place] Insurance:SELF PAY [facility] Number: Effective Repository Date:2018-07-14 07/12/2018 ATTILA Blairoster [id number] Insurance:MEDICARE MISCHLERDOB: Community NDIA[place], PART A BPolicy [id number] Sunrise Regional Treatment Center [address]Ror: Number: Repository [id number] () Date:2018-07-12 07/12/2018 Secondary NOT GIVENUNK [place] Insurance:SELF PAY [facility] Number: Effective Repository Date:2018-07-12 07/10/2018 ATTILA [facility] MISCHLERDOB: Insurance:MEDICARE A MISCHLERDOB: Health System AND BPolicy Number: [id number] Repository [place], [id number] [place] [address]Gbd: Date: () 07/10/2018 ATTILA Abreu [facility] MISCHLERDOB: Insurance:MEDICARE A MISCHLERDOB: Health System AND BPolicy Number: [id number] Repository NDIA[address], [id number] [place] [address]Jkt: Date: () 07/09/2018 ATTILA K Primary ATTILA [facility] MISCHLERDOB: Insurance:MEDICARE A MISCHLERDOB: Health System AND [facility] Number: [id number] Repository NIKOLAS PERDUE, [id number] [place] [address]Iaw: Date: () 07/08/2018 ATTILA Abreu Primary ATTILA Abreu [place] [id number] Insurance:MEDICARE MISCHLERDOB: Community NDIAYESARAH CLAYTONER, PART A [facility] [id number] [facility] [place] [address]Jhu: Number: Repository [id number] () Date:2018-07-08 07/08/2018 Secondary NOT GIVENUNK [place] Insurance:SELF PAY [facility] Number: Effective Repository Date:2018-07-08 07/08/2018 ATTILA K Primary ATTILA Abreu [place] [id number] Insurance:MEDICARE MISCHLERDOB: Community NDIAYE [place], PART A [facility] [id number] Sunrise Regional Treatment Center [address]Mxo: Number: Repository [id number] () Date:2017-02-18 07/08/2018 Secondary NOT GIVENUNK [place] Insurance:SELF PAY [facility] Number: Effective Repository Date:2018-07-07 07/07/2018 ATTILA Abreu [place] [id number] Insurance:MEDICARE MISCHLERDOB: Community NDIAYE [place], PART A [facility] [id number] Sunrise Regional Treatment Center [address]Nct: Number: Repository [id number] () Date:2018-07-07 07/07/2018 Secondary NOT GIVENUNK [place] Insurance:SELF PAY [facility] Number: Effective Repository Date:2018-07-07 07/07/2018 ATTILA Blairoster [id number] Insurance:MEDICARE MISCHLERDOB: Community NDIAYE [place], PART A [facility] [id number] [place] [address]Tqy: Number: Repository [id number] (HP) Date:2018-07-01 07/07/2018 Secondary NOT GIVENUNK [place] Insurance:SELF PAY [facility] Number: Effective Repository Date:2018-07-07 07/03/2018 ATTILA Abreu Primary ATTILA Abreu [facility] MISCHLERDOB: Insurance:MEDICARE A MISCHLERDOB: Health System AND BPolicy Number: [id number] Repository NIKOLAS PERDUE [id number] [place] [address]Jlt: Date: () 07/01/2018 ATTILA Abreu Primary ATTILA Abreu [place] [id number] Insurance:MEDICARE MISCHLERDOB: [facility] NIKOLAS PERDUE, PART A [facility] [id number] Sunrise Regional Treatment Center [address]Rgs: Number: Repository [id number] () Date:2018-07-01 07/01/2018 Secondary NOT GIVENUNK [place] Insurance:SELF PAY [facility] Number: Effective Repository Date:2018-07-01 06/27/2018 ATTILA Abreu Primary ATTILA Abreu [place] [id number] Insurance:MEDICARE MISCHLERDOB: [facility] NIKOLAS PERDUE, PART A [facility] [id number] Sunrise Regional Treatment Center [address]Gmt: Number: Repository [id number] () Date:2018-06-26 06/27/2018 Secondary NOT GIVENUNK [place] Insurance:SELF PAY [facility] Number: Effective Repository Date:2018-06-27 06/21/2018 Attila Abreu Primary Attila Abreu [facility] MischlerDOB: Insurance:MedicarePol MischlerDOB: System icy Number: Effective [id number] Repository Nikolas Perdue, Date:2017-02-18 [place] [address]Gbk: (HP) 06/21/2018 Secondary Attila [facility] Insurance:MedicarePol MischlerDOB: System icy Number: Effective [id number] Repository Date:2017-02-18 06/17/2018 ATTILA Carranza [id number] Insurance:MEDICARE MISCHLERDOB: Community NDIAYE [place], PART A olic [id number] Sunrise Regional Treatment Center [address]Czi: Number: Repository [id number] () Date:2018-06-17 06/17/2018 Secondary NOT GIVENUNK [place] Insurance:SELF PAY [facility] Number: Effective Repository Date:2018-06-17 06/17/2018 ATTILA Carranza [id number] Insurance:MEDICARE MISCHLERDOB: Community ND[place], PART A olic [id number] Sunrise Regional Treatment Center [address]Egm: Number: Repository [id number] () Date:2018-05-20 06/17/2018 Secondary NOT GIVENUNK [place] Insurance:SELF PAY [facility] Number: Effective Repository Date:2018-05-20 05/30/2018 ATTILA Carranza [id number] Insurance:MEDICARE MISCHLERDOB: Community ND[place], PART A [facility] [id number] Sunrise [facility] Treatment Center [address]Zzy: Number: Repository [id number] () Date:2018-05-30 05/30/2018 Secondary NOT GIVENUNK [place] Insurance:SELF PAY [facility] Number: Effective Repository Date:2018-05-30 05/29/2018 ATTILA Carranza [id number] Insurance:MEDICARE MISCHLERDOB: Community ND[place], PART A olicy [id number] Sunrise Regional Treatment Center [address]Bzu: Number: Repository [id number] () Date:2018-05-29 05/29/2018 Secondary NOT GIVENUNK [place] Insurance:SELF PAY [facility] Number: Effective Repository Date:2018-05-29 05/23/2018 ATTILA Carranza [id number] Insurance:MEDICARE MISCHLERDOB: Community ND[place], PART A [facility] [id number] Sunrise [facility] Center [address]Xhd: Number: Repository [id number] () Date:2018-04-28 05/23/2018 Secondary NOT GIVENUNK [place] Insurance:SELF PAY [facility] Number: Effective Repository Date:2018-04-28 05/22/2018 ATTILA AIKEN Lois [facility] MISCHLERDOB: Insurance:MEDICARE A MISCHLERDOB: [place] [id number] AND [facility] Number: [id number] [facility] [id number] 2 [place], [place] Date:1490-42-55Wnbh [place] Repository [address]Ney: (857) Name:CARE [address]Idk: (HP) [phone] (HP) 05/20/2018 ATTILA Abreu Primary ATTILA K [place] [id number] Insurance:MEDICARE MISCHLERDOB: Community ND[place], PART A [facility] [id number] Sunrise Regional Treatment Center [address]Hkx: Number: Repository [id number] (HP) Date:2018-05-20 05/20/2018 Secondary NOT GIVENUNK [place] Insurance:SELF PAY [facility] Number: Effective Repository Date:2018-05-20 05/20/2018 ATTILA Abreu Primary ATTILA K [place] [id number] Insurance:MEDICARE MISCHLERDOB: Community ND[place], PART A [facility] [id number] Sunrise [facility] Center [address]Gyf: Number: Repository [id number] (HP) Date:2018-04-22 05/20/2018 Secondary NOT GIVENUNK [place] Insurance:SELF PAY [facility] Number: Effective Repository Date:2018-05-19 05/16/2018 ATTILA Abreu Primary ATTILA K [place] [id number] Insurance:MEDICARE MISCHLERDOB: Community ND[place], PART A [facility] [id number] Sunrise Regional Treatment Center [address]Onm: Number: Repository [id number] (HP) Date:2018-05-15 05/16/2018 Secondary NOT GIVENUNK [place] Insurance:SELF PAY [facility] Number: Effective Repository Date:2018-05-15 05/16/2018 ATTILA Carranza [id number] Insurance:MEDICARE MISCHLERDOB: Community ND[place], PART A [facility] [id number] Sunrise Regional Treatment Center [address]Msq: Number: Repository [id number] (HP) Date:2018-05-15 05/16/2018 Secondary NOT GIVENUNK [place] Insurance:SELF PAY [facility] Number: Effective Repository Date:2018-05-16 05/16/2018 ATTILA Carranza [id number] Insurance:MEDICARE MISCHLERDOB: Community ND[place], PART A [facility] [id number] Sunrise Regional Treatment Center [address]Hct: Number: Repository [id number] (HP) Date:2018-05-15 05/16/2018 Secondary NOT GIVENUNK [place] Insurance:SELF PAY [facility] Number: Effective Repository Date:2018-05-16 05/16/2018 ATTILA Carranza [id number] Insurance:MEDICARE MISCHLERDOB: Community [place], PART A [facility] [id number] Sunrise Regional Treatment Center [address]Coi: Number: Repository [id number] (HP) Date:2018-05-15 05/16/2018 Secondary NOT GIVENUNK [place] Insurance:SELF PAY [facility] Number: Effective Repository Date:2018-05-16 05/16/2018 ATTILA Carranza [id number] Insurance:MEDICARE MISCHLERDOB: Community ND[place], PART A [facility] [id number] [place] [address]Kgo: Number: Repository [id number] (HP) Date:2018-05-15 05/16/2018 Secondary NOT GIVENUNK [place] Insurance:SELF PAY [facility] Number: Effective Repository Date:2018-05-16 05/16/2018 ATTILA Abreu Primary ATTILA Carranza [id number] Insurance:MEDICARE MISCHLERDOB: Community [place], PART A [facility] [id number] Sunrise [facility] [address]Bwt: Number: Repository [id number] (HP) Date:2018-05-15 05/16/2018 Secondary NOT GIVENUNK [place] Insurance:SELF PAY [facility] Number: Effective Repository Date:2018-05-16 05/16/2018 ATTILA Abreu Primary ATTILA Carranza [id number] Insurance:MEDICARE MISCHLERDOB: Community ND[place], PART A [facility] [id number] Sunrise Regional Treatment Center [address]Cco: Number: Repository [id number] (HP) Date:2018-05-15 05/16/2018 Secondary NOT GIVENUNK [place] Insurance:SELF PAY [facility] Number: Effective Repository Date:2018-05-16 05/15/2018 ATTILA Abreu Primary ATTILA Carranza [id number] Insurance:MEDICARE MISCHLERDOB: Community [place], PART A [facility] [id number] Sunrise Regional Treatment Center [address]Veq: Number: Repository [id number] (HP) Date:2018-05-15 05/15/2018 Secondary NOT GIVENUNK [place] Insurance:SELF PAY [facility] Number: Effective Repository Date:2018-05-15 05/15/2018 ATTILA Abreu Primary ATTILA Carranza [id number] Insurance:MEDICARE MISCHLERDOB: Community ND[place], PART A [facility] [id number] Sunrise [facility] [address]Uen: Number: Repository [id number] (HP) Date:2018-05-15 05/15/2018 Secondary NOT GIVENUNK [place] Insurance:SELF PAY [facility] Number: Effective Repository Date:2018-05-15 05/15/2018 ATTILA Abreu Primary ATTILA K [place] [id number] Insurance:MEDICARE MISCHLERDOB: Community ND[place], PART A [facility] [id number] Sunrise Regional Treatment Center [address]Ado: Number: Repository [id number] () Date:2018-04-18 05/15/2018 Secondary NOT GIVENUNK [place] Insurance:SELF PAY [facility] Number: Effective Repository Date:2018-05-15 05/15/2018 ATTILA K Primary ATTILA Blairoster [id number] Insurance:MEDICARE MISCHLERDOB: Community NDIAYE DRWESTEPHANIASTER, PART A [facility] [id number] Sunrise Regional Treatment Center [address]Vur: Number: Repository [id number] () Date:2018-05-15 05/15/2018 Secondary NOT GIVENUNK [place] Insurance:SELF PAY [facility] Number: Effective Repository Date:2018-05-15 05/14/2018 ATTILA Abreu Primary ATTILA K [facility] MISCHLERDOB: Insurance:MEDICARE A MISCHLERDOB: Health System AND BPolicy Number: [id number] Repository NIKOLAS PERDUE, [id number] [place] [address]Zeu: Date: () 05/07/2018 ATTILA Abreu Primary ATTILA Carranza [id number] Insurance:MEDICARE MISCHLERDOB: Community NDIYAE [place], PART A [facility] [id number] Sunrise Regional Treatment Center [address]Bhn: Number: Repository [id number] () Date:2018-05-07 05/07/2018 Secondary NOT GIVENUNK [place] Insurance:SELF PAY [facility] Number: Effective Repository Date:2018-05-07 05/01/2018 ATTILA Abreu Primary ATTILAMELCHOR [facility] MISCHLERDOB: Insurance:MEDICARE A MISCHLERDOB: Health System AND BPolicy Number: [id number] Repository [address] [id number] RDSSAN LUIS [place], [place] Date: [address]Bwn: (HP) 04/28/2018 ATTILA Abreu Primary ATTILA [facility] MISCHLERDOB: Insurance:MEDICARE A MISCHLERDOB: Health System AND BPolicy Number: [id number] Repository NIKOLAS PERDUE, [id number] [place] [address]Onz: Date: () 04/28/2018 ATTILA Abreu Primary ATTILA [place] [id number] Insurance:MEDICARE MISCHLERDOB: Community NDIAYE [place], PART A olic [id number] Hospital [place] [address]Uym: Number: Repository [id number] () Date:2018-02-26 04/28/2018 Secondary NOT GIVENUNK [place] Insurance:SELF PAY [facility] Number: Effective Repository Date:2018-04-28 04/22/2018 ATTILA K Primary ATTILA Abreu [place] [id number] Insurance:MEDICARE MISCHLERDOB: Community ND[place], PART A [facility] [id number] [place] [address]Lde: Number: Repository [id number] () Date:2018-04-15 04/22/2018 Secondary NOT GIVENUNK [place] Insurance:SELF PAY [facility] Number: Effective Repository Date:2018-04-15 04/17/2018 ATTILA [facility] MISCHLERDOB: Insurance:MEDICARE A MISCHLERDOB: Health System AND BPolicy Number: [id number] Repository NIKOLAS PERDUE, [id number] [place] [address]Inc: Date: () 04/16/2018 ATTILA [place] [id number] Insurance:MEDICARE MISCHLERDOB: Community ND[place], PART A [facility] [id number] Hospital [place] [address]Lqe: Number: Repository [id number] () Date:2018-04-16 04/16/2018 Secondary NOT GIVENUNK [place] Insurance:SELF PAY [facility] Number: Effective Repository Date:2018-04-16 04/16/2018 ATTILA Abreu Primary ATTILA [facility] MISCHLERDOB: Insurance:MEDICARE A MISCHLERDOB: Health System AND [facility] Number: [id number] Repository [facility] SYSTEMMARYANSTBAN[facility] [id number] [place] [address]Ppf: Date: () 04/15/2018 ATTILA Abreu Primary ATTILA Carranza [id number] Insurance:MEDICARE MISCHLERDOB: Community NDIAYE [place], PART A [facility] [id number] [address]Cxn: Number: Repository [id number] () Date:2018-01-15 04/15/2018 Secondary NOT GIVENUNK [place] Insurance:SELF PAY [facility] Number: Effective Repository Date:2018-01-15 04/11/2018 ATTILA Abreu Primary NOT GIVENUNK [place] [id number] Insurance:SELF PAY [facility] [place] [address]Zjj: Number: Effective Repository Date:2018-04-10 () 04/11/2018 ATTILA Carranza [id number] Insurance:MEDICARE MISCHLERDOB: Community ND[place]YE [place], PART A [facility] [id number] [place] [address]Ywz: Number: Repository [id number] () Date:2018-01-15 04/11/2018 Secondary NOT GIVENUNK [place] Insurance:SELF PAY [facility] Number: Effective Repository Date:2018-04-11 04/09/2018 ATTILA Abreu Primary ATTILA Carranza [id number] Insurance:MEDICARE MISCHLERDOB: Community NDIAYE [place], PART A [facility] [id number] [place] [address]Gjj: Number: Repository [id number] () Date:2018-04-08 04/09/2018 Secondary NOT GIVENUNK [place] Insurance:SELF PAY [facility] Number: Effective Repository Date:2018-04-09 04/08/2018 ATTILA Carranza [id number] Insurance:MEDICARE MISCHLERDOB: Community ND[place], PART A [facility] [id number] Sunrise Regional Treatment Center [address]Ggu: Number: Repository [id number] () Date:2018-04-08 04/08/2018 Secondary NOT GIVENUNK [place] Insurance:SELF PAY [facility] Number: Effective Repository Date:2018-04-08 04/08/2018 ATTILA Abreu Primary ATTILA Carranza [id number] Insurance:MEDICARE MISCHLERDOB: Community NDIAYE [place], PART A [facility] [id number] Sunrise [facility] Center [address]Yvd: Number: Repository [id number] (HP) Date:2018-04-08 04/08/2018 Secondary NOT GIVENUNK [place] Insurance:SELF PAY [facility] Number: Effective Repository Date:2018-04-08 04/07/2018 ATTILA Blairoster [id number] Insurance:MEDICARE MISCHLERDOB: Community NDIAYE [place], PART A [facility] [id number] [facility] [address]Ajm: Number: Repository [id number] (HP) Date:2018-04-01 04/07/2018 Secondary NOT GIVENUNK [place] Insurance:SELF PAY [facility] Number: Effective Repository Date:2018-04-01 04/07/2018 ATTILA Carranza [id number] Insurance:MEDICARE MISCHLERDOB: Community NDIAYE [place], PART A [facility] [id number] [facility] [address]Pxs: Number: Repository [id number] (HP) Date:2018-04-01 04/07/2018 Secondary NOT GIVENUNK [place] Insurance:SELF PAY [facility] Number: Effective Repository Date:2018-04-07 04/07/2018 ATTILA Carranza [id number] Insurance:MEDICARE MISCHLERDOB: Community [place], PART A [facility] [id number] [facility] [address]Xmk: Number: Repository [id number] () Date:2018-04-01 04/07/2018 Secondary NOT GIVENUNK [place] Insurance:SELF PAY [facility] Number: Effective Repository Date:2018-04-07 04/02/2018 ATTILA Bl[place]ster [id number] Insurance:MEDICARE MISCHLERDOB: Community NDIAYE [place], PART A [facility] [id number] [facility]rise Regional Treatment Center 78207Kkf: Number: Repository [id number] () Date:2018-04-02 04/02/2018 Secondary NOT GIVENUNK [place] Insurance:SELF PAY [facility] Number: Effective Repository Date:2018-04-02 04/01/2018 ATTILA Blairoster [id number] Insurance:MEDICARE MISCHLERDOB: Community [place]YE [place], PART A [facility] [id number] Sunrise Regional Treatment Center 92850Ykb: Number: Repository [id number] () Date:2018-04-01 04/01/2018 Secondary NOT GIVENUNK [place] Insurance:SELF PAY [facility] Number: Effective Repository Date:2018-04-01 04/01/2018 ATTILA Abreu [place] [id number] Insurance:MEDICARE MISCHLERDOB: Community [place]YE [place], PART A [facility] [id number] [facility]rise Regional Treatment Center 89468Kfs: Number: Repository [id number] () Date:2018-04-14 04/01/2018 Secondary NOT GIVENUNK [place] Insurance:SELF PAY [facility] Number: Effective Repository Date:2018-04-17 03/25/2018 ATTILA Abreu [facility] MISCHLERDOB: Insurance:MEDICARE A MISCHLERDOB: Health System AND BPolicy Number: [id number] Repository NIKOLAS PERDUE, [id number] [place] [address]Dky: Date: () 03/25/2018 ATTILA K Primary ATTILA [facility] MISCHLERDOB: Insurance:MEDICARE A MISCHLERDOB: Health System AND BPolicy Number: [id number] Repository NIKOLAS PERDUE, [id number] [place] [address]Aer: Date: (HP) 03/21/2018 ATTILA Abreu Primary ATTILA Carranza [id number] Insurance:MEDICARE MISCHLERDOB: Community [place], PART A [facility] [id number] Sunrise Regional Treatment Center [address]Zld: Number: Repository [id number] () Date:2018-03-21 03/21/2018 Secondary NOT GIVENUNK [place] Insurance:SELF PAY [facility] Number: Effective Repository Date:2018-03-21 03/20/2018 ATTILA K Primary ATTILA Carranza [id number] Insurance:MEDICARE MISCHLERDOB: Community [place], PART A [facility] [id number] Sunrise Regional Treatment Center 136[address]Pps: Number: Repository [id number] () Date:2018-03-19 03/20/2018 Secondary NOT GIVENUNK [place] Insurance:SELF PAY [facility] Number: Effective Repository Date:2018-03-19 03/20/2018 ATTILA Abreu Primary ATTILA Carranza [id number] Insurance:MEDICARE MISCHLERDOB: Community [place], PART A [facility] [id number] [address]Iqc: Number: Repository [id number] () Date:2018-03-20 03/20/2018 Secondary NOT GIVENUNK [place] Insurance:SELF PAY [facility] Number: Effective Repository Date:2018-03-20 03/20/2018 ATTILA K Primary ATTILA Carranza [id number] Insurance:MEDICARE MISCHLERDOB: Community NDIAYE [facility] [id number] Sunrise Regional Treatment Center [address]Pjj: Number: Repository [id number] () Date:2018-03-20 03/20/2018 Secondary NOT GIVENUNK [place] Insurance:SELF PAY [facility] Number: Effective Repository Date:2018-03-20 03/20/2018 ATTILA Lois Primary ATTILA Abreu [place] [id number] Insurance:MEDICARE MISCHLERDOB: [facility] [id number] Sunrise Regional Treatment Center [address]Nia: Number: Repository [id number] () Date:2018-03-20 03/20/2018 Secondary NOT GIVENUNK [place] Insurance:SELF PAY [facility] Number: Effective Repository Date:2018-03-20 03/20/2018 ATTILA Abreu Primary ATTILA K [place] [id number] Insurance:MEDICARE MISCHLERDOB: Community NDIAYE [facility], PART A [facility] [id number] Sunrise Regional Treatment Center [address]Ysi: Number: Repository [id number] () Date:2018-03-20 03/20/2018 Secondary NOT GIVENUNK [place] Insurance:SELF PAY [facility] Number: Effective Repository Date:2018-03-20 03/18/2018 ATTILA Lois Primary ATTILA K [place] [id number] Insurance:MEDICARE MISCHLERDOB: Community NDIAYE PART A [facility] [id number], [place] Number: Repository [id number]: 330 [id number] [phone] () Date:2018-02-18 03/18/2018 Secondary NOT GIVENUNK [place] Insurance:SELF PAY [facility] Number: Effective Repository Date:2018-02-18 03/18/2018 ATTILA Abreu Primary ATTILA K [facility] MISCHLERDOB: Insurance:MEDICARE A MISCHLERDOB: Health System AND [facility] Number: [id number] [place] [id number] [place] [address]Jqg: Date: () 03/07/2018 ATTILA Carranza [id number] Insurance:MEDICARE MISCHLERDOB: Community NDIAYE [place], PART A [facility] [id number] Sunrise Regional Treatment Center [address]Brb: Number: Repository [id number] () Date:2018-03-07 03/07/2018 Secondary NOT GIVENUNK [place] Insurance:SELF PAY [facility] Number: Effective Repository Date:2018-03-07 02/26/2018 ATTILA K Primary ATTILA Abreu [place] [id number] Insurance:MEDICARE MISCHLERDOB: Community NDIAYE PART A [facility] [id number], [place] Number: Repository [phone]: [phone]) [id number] [phone] () Date:2018-02-25 02/26/2018 Secondary NOT GIVENUNK [place] Insurance:SELF PAY [facility] Number: Effective Repository Date:2018-02-26 02/25/2018 ATTILA K Primary ATTILA Abreu [place] [id number] Insurance:MEDICARE MISCHLERDOB: Community [place]YE [place], PART A [facility] [id number] Sunrise Regional Treatment Center [address]Uzm: Number: Repository [id number] () Date:2018-01-14 02/25/2018 Secondary NOT GIVENUNK [place] Insurance:SELF PAY [facility] Number: Effective Repository Date:2018-01-14 02/24/2018 ATTIAL [place] [id number] Insurance:MEDICARE MISCHLERDOB: Community NDIAYE PART A [facility] [id number], [place] Number: Repository [id number]: [phone]) [id number] [phone] () Date:2018-02-24 02/24/2018 Secondary NOT GIVENUNK [place] Insurance:SELF PAY [facility] Number: Effective Repository Date:2018-02-24 02/21/2018 ATTILA Carranza [id number] Insurance:MEDICARE MISCHLERDOB: Community NDIAYE PART A olic [id number], [place] Number: Repository [id number]: 330 [id number] [phone] () Date:2017-10-29 02/21/2018 Secondary NOT GIVENUNK [place] Insurance:SELF PAY [facility] Number: Effective Repository Date:2018-02-21 02/20/2018 ATTILA Abreu Primary ATTILA [place] [id number] Insurance:MEDICARE MISCHLERDOB: Community [place], PART A [facility] [id number] Sunrise Regional Treatment Center [address]Bej: Number: Repository [id number] () Date:2018-02-20 02/20/2018 Secondary NOT GIVENUNK [place] Insurance:SELF PAY [facility] Number: Effective Repository Date:2018-02-20 02/18/2018 ATTILA Abreu [place] [id number] Insurance:MEDICARE MISCHLERDOB: Community [place], PART A [facility] [id number] Sunrise Regional Treatment Center [address]Riz: Number: Repository [id number] () Date:2018-02-17 02/18/2018 Secondary NOT GIVENUNK [place] Insurance:SELF PAY [facility] Number: Effective Repository Date:2018-02-18 02/18/2018 ATTILA Abreu [place] [id number] Insurance:MEDICARE MISCHLERDOB: Community [place], PART A olic [id number] Sunrise Regional Treatment Center [address]Nog: Number: Repository [id number] () Date:2018-02-18 02/18/2018 Secondary NOT GIVENUNK [place] Insurance:SELF PAY [facility] Number: Effective Repository Date:2018-02-18 02/17/2018 ATTILA Abreu [place] [id number] Insurance:MEDICARE MISCHLERDOB: Community [place], PART A [facility] [id number] Sunrise Regional Treatment Center [address]Qyf: Number: Repository [id number] (HP) Date:2018-02-17 02/17/2018 Secondary NOT GIVENUNK [place] Insurance:SELF PAY [facility] Number: Effective Repository Date:2018-02-17 02/16/2018 ATTILA Abreu [place] [id number] Insurance:MEDICARE MISCHLERDOB: Community NDIAYE [facility], PART A [facility] [id number] Sunrise Regional Treatment Center [address]38[address]Knw: Number: Repository [id number] (HP) Date:2018-02-16 02/16/2018 Secondary NOT GIVENUNK [place] Insurance:SELF PAY [facility] Number: Effective Repository Date:2018-02-16 02/13/2018 ATTILA Abreu [place] [id number] Insurance:MEDICARE MISCHLERDOB: Community [facility] [id number] Sunrise Regional Treatment Center [address]Fxa: Number: Repository [id number] (HP) Date:2018-02-12 02/13/2018 Secondary NOT GIVENUNK [place] Insurance:SELF PAY [facility] Number: Effective Repository Date:2018-02-13 02/05/2018 ATTILA Abreu [place] [id number] Insurance:MEDICARE MISCHLERDOB: Community NDIAYE [place], PART A [facility] [id number] Sunrise Regional Treatment Center [address]Vws: Number: Repository [id number] (HP) Date:2017-02-18 02/05/2018 Secondary NOT GIVENUNK [place] Insurance:SELF PAY [facility] Number: Effective Repository Date:2018-01-20 01/28/2018 ATTILA Abreu [place] [id number] Insurance:MEDICARE MISCHLERDOB: Community [place], PART A [facility] [id number] Sunrise Regional Treatment Center [address]Iue: Number: Repository [id number] (HP) Date:2018-01-14 01/28/2018 Secondary NOT GIVENUNK [place] Insurance:SELF PAY [facility] Number: Effective Repository Date:2018-01-14 01/21/2018 ATTILA Abreu [facility] MISCHLERDOB: Insurance:MEDICARE A MISCHLERDOB: [place] [id number] AND [facility] Number: [id number] [facility], [id number] [address] [place] [address]Jcp: Date:2222-58-86UchzStopover, [place] Repository Name:[place] [id number]: [phone]) () [phone] () 01/20/2018 ATTILA Carranza [id number] Insurance:MEDICARE MISCHLERDOB: [facility], PART A [facility] [id number] Sunrise Regional Treatment Center [address]Snx: Number: Repository [id number] () Date:2017-12-09 01/20/2018 Secondary NOT GIVENUNK [place] Insurance:SELF PAY [facility] Number: Effective Repository Date:2017-12-09 01/14/2018 ATTILA Carranza [id number] Insurance:MEDICARE MISCHLERDOB: [facility], PART A [facility] [id number] Sunrise Regional Treatment Center 276[address]Wtw: Number: Repository [id number] () Date:2018-01-09 01/14/2018 Secondary NOT GIVENUNK [place] Insurance:SELF PAY [facility] Number: Effective Repository Date:2018-01-14 01/14/2018 ATTILA Carranza [id number] Insurance:MEDICARE MISCHLERDOB: [facility], PART A [facility] [id number] Sunrise Regional Treatment Center 189[address]Udg: Number: Repository [id number] () Date:2018-01-09 01/14/2018 Secondary NOT GIVENUNK [place] Insurance:SELF PAY [facility] Number: Effective Repository Date:2018-01-14 01/10/2018 ATTILA Abreu Primary ATTILA Carranza [id number] Insurance:MEDICARE MISCHLERDOB: Community [place], PART A [facility] [id number] Sunrise Regional Treatment Center [address]Wsz: Number: Repository [id number] (HP) Date:2018-01-10 01/10/2018 Secondary NOT GIVENUNK [place] Insurance:SELF PAY [facility] Number: Effective Repository Date:2018-01-10 01/03/2018 ATTILA Abreu Primary ATTILA Carranza [id number] Insurance:MEDICARE MISCHLERDOB: Community [place], PART A [facility] [id number] Sunrise Regional Treatment Center 77[address]Moe: Number: Repository [id number] (HP) Date:2017-12-26 01/03/2018 Secondary NOT GIVENUNK [place] Insurance:SELF PAY [facility] Number: Effective Repository Date:2017-12-26 12/19/2017 ATTILA Abreu Primary ATTILA Carranza [id number] Insurance:MEDICARE MISCHLERDOB: Community [place], PART A [facility] [id number] Sunrise Regional Treatment Center [address]Nxj: Number: Repository [id number] (HP) Date:2017-12-19 12/19/2017 Secondary NOT GIVENUNK [place] Insurance:SELF PAY [facility] Number: Effective Repository Date:2017-12-19 12/19/2017 ATTILA Abreu Primary ATTILA Carranza [id number] Insurance:MEDICARE MISCHLERDOB: Community [place], PART A [facility] [id number] Sunrise Regional Treatment Center [address]Bie: Number: Repository [id number] (HP) Date:2017-12-10 12/19/2017 Secondary NOT GIVENUNK [place] Insurance:SELF PAY [facility] Number: Effective Repository Date:2017-12-10 12/16/2017 ATTILA Carranza [id number] Insurance:MEDICARE MISCHLERDOB: Community NDIAYE DRWESTEPHANIASTER, PART A [facility] [id number] Sunrise Regional Treatment Center [address]Dfq: Number: Repository [id number] () Date:2017-12-16 12/16/2017 Secondary NOT GIVENUNK [place] Insurance:SELF PAY [facility] Number: Effective Repository Date:2017-12-16 12/06/2017 ATTILA K Primary ATTILA Abreu [place] [id number] Insurance:MEDICARE MISCHLERDOB: Community [place], PART A [facility] [id number] Sunrise Regional Treatment Center 314[address]Oob: Number: Repository [id number] (HP) Date:2017-12-04 12/06/2017 Secondary NOT GIVENUNK [place] Insurance:SELF PAY [facility] Number: Effective Repository Date:2017-12-04 12/02/2017 ATTILA Abreu Primary ATTILA Abreu [place] [id number] Insurance:MEDICARE MISCHLERDOB: Community [place], PART A [facility] [id number] Sunrise Regional Treatment Center 814[address]Uqj: Number: Repository [id number] (HP) Date:2017-12-02 12/02/2017 Secondary NOT GIVENUNK [place] Insurance:SELF PAY [facility] Number: Effective Repository Date:2017-12-02 11/30/2017 ATTILAMELCHOR Abreu [place] [id number] Insurance:MEDICARE MISCHLERDOB: Community [place], PART A [facility] [id number] Sunrise Regional Treatment Center 97387Ylh: Number: Repository [id number] (HP) Date:2017-11-30 11/30/2017 Secondary NOT GIVENUNK [place] Insurance:SELF PAY [facility] Number: Effective Repository Date:2017-11-30 11/11/2017 ATTILAMELCHOR Abreu [place] [id number] Insurance:MEDICARE MISCHLERDOB: Community [place]IAYE [place]PH[place]IASTER, PART A [facility] [id number] Sunrise Regional Treatment Center 77417Mzf: Number: Repository [id number] (HP) Date:2017-11-05 11/11/2017 Secondary NOT GIVENUNK [place] Insurance:SELF PAY [facility] Number: Effective Repository Date:2017-11-05
== END 2018-11-06 01:55 | disposition home or self-care (01) ==
LOC: ED 11-06 00:15
PROVIDERS: Emergency Provider Emergency Medicine; Family Provider Family Medicine; PCP Family Medicine
DX: R10.9 Unspecified abdominal pain (principal); R19.7 Diarrhea, unspecified; R11.0 Nausea; I48.91 Unspecified atrial fibrillation; I10 Essential (primary) hypertension; Z79.01 Long term (current) use of anticoagulants; Z79.899 Other long term (current) drug therapy
CPT/HCPCS: 74176; 80048; 80076; 81001; 83690; 85025; 96361; 96374; 99284; J7030; A4216; J2405

== ENCOUNTER 2018-11-08 17:53 | Emergency (ER) | payer MEDICARE, SELFPAY ==
[2018-11-07 08:43] VITALS: BMI 33.3
[2018-11-08 17:54] VITALS: BP 126/90; PULSE 116; RESP 14; TEMP 36.9; O2SAT 100; BMI 33.3
[2018-11-08] MEDS: oxyCODONE 5 MG Tablet PO (18:09)
--- NOTE | 2018-11-08 18:10 | RAD_ITS ---
STUDY: X-RAY - RIGHT SHOULDER REASON FOR EXAM: Male, 48 years old. Fall. TECHNIQUE: 2 view(s) of the shoulder. COMPARISON: None. FINDINGS: Normal glenohumeral articulation. Normal acromioclavicular joint. Normal acromion. Normal humeral head and visualized proximal humerus. The soft tissue structures are unremarkable. There is no demonstrated fracture. Normal visualized pulmonary apex. RAD/Shoulder min 2 Views IMPRESSION: Normal x-ray examination of the shoulder. Electronically Signed: Soto Mena MD at 19:15 EST , Service support ,
--- NOTE | 2018-11-08 18:15 | ED.VISSUMM ---
- ER Visit Summary Date of Service: 11/08/18 Chief Complaint: Right shoulder injury History of Present Illness: The patient is a 48 M with history of recurrent right shoulder dislocations. Patient was shoveling snow approximate hour and a half prior to arrival. He believes his shoulder popped out and is not sure if it completely reduced. He states he initially had some tingling in his hand that is now improved. Physical Examination: Vital signs remarkable only for heart rate of 116. Patient sitting upright in bed no acute distress. Head neck examination reveals no C-spine tenderness. Heart is regular rate and rhythm. Lung sounds are clear. Right upper extremity examination reveals tenderness to the posterior aspect of the shoulder. There is no evidence of dislocation on exam. He has strong distal pulses and strong hand grasp. He has decreased range of motion of the shoulder secondary to pain. Test Results: Right shoulder x-rays are normal. Emergency Department Course and Treatment: Patient was given oxycodone p.o. Test results are discussed with the patient. He will be given a sling to use as needed. He will be given a short course of oxycodone. We will avoid anti-inflammatories as he is on Eliquis. He is to follow-up with orthopedics. Treatment Plan: [] Disposition: Discharge Impression: Right shoulder sprain This note was generated with [employer] dictation software. It may contain incorrect words, spelling, and punctuation that were not noted in review of the chart prior to signing ED Disposition - Plan for ED Patient: Chief Complaint: Upper Extremity Injury Referrals: Care Physician,No Primary [NON-STAFF] -
--- NOTE | 2018-11-08 19:45 | ED.DEP ---
ED Disposition - Plan for ED Patient: Disposition: Home or Assisted Living Chief Complaint: Upper Extremity Injury Instructions: ED Sprain Shoulder Prescriptions: Oxycodone HCl/Acetaminophen [Percocet 5/325] 1 tablet PO Q6H PRN PRN 3 Days #12 tablet PRN Reason: Pain Referrals: Jayden Franco DO [STAFF PHYSICIAN] - 1 Week if not improving
--- OUTSIDE RECORDS SUMMARY | 2019-01-12 10:35 | XMS RPT_ITS | Summary of Care ---
:1970 Author Organization [facility] Address [address] [place] [address] Phone Care Team Providers Name Role Phone Jesse Harris MD Unavailable Obdulia Benitez MD Primary Care Provider Reason for Referral Radiology (Routine) Status Reason Specialty Diagnoses / Procedures Referred By Referred To Contact Contact New Request Diagnoses Paroxysmal atrial fibrillation Huy Andrew, Procedures ECG MD [address] [place] [address] Reason for Visit Reason Comments Follow-up Encounter Details Date Type Department Care Team Description 10/10/2018 Office Visit [facility] Huy Andrew, Paroxysmal atrial Center fibrillation (Primary [address]) [place] [id number] Allergies Active Allergy Reactions Severity Noted Date Comments Atorvastatin 10/09/2017 Chest pain Bupropion High 07/08/2017 unknown Celecoxib 07/08/2017 rash from it Clonidine 07/08/2017 upset stomach Eletriptan 07/08/2017 rash Fentanyl High 07/08/2017 upset stomach Hydrocodone 07/08/2017 upset stomach Levofloxacin 07/08/2017 rash Penicillins 07/08/2017 rash Topiramate 07/08/2017 upset stomach as of this encounter Medications Prescription Sig. Disp. Refills Start Date End Date Status lisinopril 20 MG Tab Take 20 mg by Active mouth at bedtime. meclizine 12.5 MG Tab take 12.5 mg by Active mouth daily as needed.. pantoprazole (PROTONIX) take 40 mg by Active [address] mouth daily.. carveDILOL 25 MG Tab take 25 mg by Active mouth 2 times daily.. BusPIRone HCl (BUSPAR Take 7.5 mg by Active PO)Indications: mouth 2 times Paroxysmal atrial daily. fibrillation, Pulmonary vein stenosis albuterol 108 (90 Base) Inhale 1 puff Active MCG/ACT Aero Soln every 6 hours as inhalerIndications: needed for Paroxysmal atrial Wheezing. fibrillation, Pulmonary vein stenosis ondansetron 8 MG Tab Take 8 mg by Active tabletIndications: mouth every 8 Paroxysmal atrial hours as needed fibrillation, Pulmonary for Nausea. vein stenosis apixaban 5 MG Tab Take 1 tablet by 60 tablet 5 09/17/2017 Active tabletIndications: mouth every 12 Paroxysmal atrial hours. fibrillation, Pulmonary vein stenosis as of this encounter Active Problems Problem Noted Date Obesity: body mass index of 30.0-34.9 10/10/2018 PAF (paroxysmal atrial fibrillation) 04/09/2018 Overview: Added automatically from request for surgery [id number] Paroxysmal atrial fibrillation 09/17/2017 Overview: Added automatically from request for surgery [id number] Pulmonary vein stenosis 09/17/2017 Overview: Added automatically from request for surgery [id number] Social History Tobacco Use Types Packs/Day Years Used Date Never Smoker Smokeless Tobacco: Never Used Alcohol Use Drinks/Week oz/Week Comments No Sex Assigned at Date Recorded Not on file as of this encounter Last Filed Vital Signs Vital Sign Reading Time Taken Blood Pressure 122/89 10/10/2018 1:19 PM EST Pulse 78 10/10/2018 1:19 PM EST Temperature - - Respiratory Rate 18 10/10/2018 1:19 PM EST Oxygen Saturation - - Inhaled Oxygen Concentration - - Weight 106.4 kg (234 lb 8 oz) 10/10/2018 1:19 PM EST Height 180.3 cm (5' 11) 10/10/2018 1:19 PM EST Body Mass Index 32.71 10/10/2018 1:19 PM EST in this encounter Instructions Patient Instructions - Melida Jhaveri RN - 10/10/2018 1:34 PM ESTContinue all meds Follow-up appointment may be scheduled/determined with MD or EP Nurse Practitioner as needed Thank you for choosing [facility] for your Heart Care. Patient Information regarding testing completed at [facility]: O[employer] is an available tool to securely access your online medical information. Please ask to enroll during any [facility] appointment. Once enrolled, your MD reviewed test results will be available for you to review at your convenience. When scheduling a follow-up appt plan to have at least 30 days between Holter monitor return and clinic visit Reviewed Cardiac Testing Abnormal test results are prioritized and contact is primarily by phone. Normal test results require 2 weeks for turnaround and physician review. If you have not received a letter, MyChart messge or phone call, after 4 weeks from test date, please call. Reviewed Holter and Event monitors require 2-4 weeks after completion, for physician review. Notification may be a letter, MyChart message or phone call. If we are sending you an Event monitor and you have not received it when expected, please call the office. For any questions/problems with your monitor please call [place] at [phone]. Paperwork Please allow 2 weeks to complete disability, FMLA, and insurance paperwork Call Melida for questions/concerns [phone] M-F 8 to 4:30 Please leave your name with spelling, date of and question or update All calls are prioritized and responses researched, if possible, prior to calls being returned. Call Scheduling for any appointment/procedure verification or changes [phone] [facility] testing and procedure patient Instructions may be obtained at: [email or web address] Insurance Concerns: [email or web address] [email or web address] [email or web address]/patient-care/gxidgiw-yxq-bxyryss-guide/insurances-we -accept in this encounter Progress Notes Huy Andrew MD - 10/10/2018 1:00 PM ESTFormatting of this note may be different from the original. Assessment and Plan Weight loss 30# No AFib LORET[place] Blood pressure 122/89, pulse 78, resp. rate 18, height 1.803 m (5' 11), weight 106.4 kg (234 lb 8 oz). Pt ID: Jeferson Perdomo is a 48 y.o. male Chief Complaint Patient presents with ??? Follow-up Patient Active Problem List Diagnosis Date Noted ??? PAF (paroxysmal atrial fibrillation) 04/09/2018 Added automatically from request for surgery [id number] ??? Paroxysmal atrial fibrillation 09/17/2017 Added automatically from request for surgery [id number] ??? Pulmonary vein stenosis 09/17/2017 Added automatically from request for surgery [id number] Current Outpatient Prescriptions Medication Sig ??? albuterol 108 (90 Base) MCG/ACT Aero Soln inhaler Inhale 1 puff every 6 hours as needed for Wheezing. ??? apixaban 5 MG Tab tablet Take 1 tablet by mouth every 12 hours. ??? BusPIRone HCl (BUSPAR PO) Take 7.5 mg by mouth 2 times daily. ??? carveDILOL 25 MG Tab take 25 mg by mouth 2 times daily.. ??? lisinopril 20 MG Tab Take 20 mg by mouth at bedtime. ??? meclizine 12.5 MG Tab take 12.5 mg by mouth daily as needed.. ??? ondansetron 8 MG Tab tablet Take 8 mg by mouth every 8 hours as needed for Nausea. ??? pantoprazole (PROTONIX) [address] take 40 mg by mouth daily.. Social History Social History ??? Marital status: Single Spouse name: N/A ??? Number of children: N/A ??? Years of education: N/A Occupational History ??? Not on file. Social History Main Topics ??? Smoking status: Never Smoker ??? Smokeless tobacco: Never Used ??? Alcohol use No ??? Drug use: No ??? Sexual activity: Not on file Other Topics Concern ??? Not on file Social History Narrative ??? No narrative on file Review of Systems Constitutional:well; weiht loss Skin: Negative. Eyes: Negative. Cardiovascular: CP atypical NTG Respiratory: Negative. Gastrointestinal: Negative. Musculoskeletal: N Neurological: Negative. Psychiatric: Negative. Allergy/Immunology: Negative. Endocrine: Negative. Physical Exam Constitutional: alert and oriented Head: Normocephalic. Neck: Neck supple. Cardiovascular: Normal rate, regular rhythm Lower Extremities: No peripheral edema Pulmonary/Chest: Effort normal Skin: Warm and dry. Psychiatric: Affect normal. Huy Andrew MD 10/10/2018 1:28 PM [employer] [place], [facility] Cardiac Electrophysiology in this encounter Plan of Treatment Scheduled Tests Name Priority Associated Diagnoses Order Schedule ECG Routine Paroxysmal atrial fibrillation Ordered: 10/10/2018 Health Maintenance Due Date Last Done Comments HIV SCREENING DISCUSSION 1983 TETANUS 02/04/1988 TDAP (ADULT) 1989 LIPID SCREENING 2010 INFLUENZA VACCINE (#1) 2018 08/23/2017 as of this encounter Visit Diagnoses Diagnosis Paroxysmal atrial fibrillation - Primary Atrial fibrillation
--- OUTSIDE RECORDS SUMMARY | 2019-01-12 10:39 | XMS RPT_ITS ---
:1970 Author Organization [place] Support Name Relationship Address Phone JONAH GARCIA Unavailable Unavailable Unavailable PEGATTILA ORTIZ Unavailable Unavailable Unavailable JONAH GARCIA Unavailable Unavailable + JONAH GARCIA Unavailable Unavailable + D Unavailable Unavailable Unavailable JONAH GARCIA Unavailable [address] + [place] [address] D Unavailable Unavailable Unavailable JONAH GARCIA Unavailable [address] + [place] [address] D Unavailable Unavailable Unavailable JONAH GARCIA Unavailable [address] + [place] [address] Jonah Laguerre Unavailable Unavailable + JONAH GARCIA Unavailable [address] + [place] [address] (FIANCEE)JONAH Unavailable Unavailable + JONAH GARCIA Unavailable Unavailable + JONAH GARCIA Unavailable [address] + [place] [address] JONAH GARCIA Unavailable [address] + [place] [address] D Unavailable Unavailable Unavailable JONAH GARCIA Unavailable [address] + [place] [address] D Unavailable Unavailable Unavailable JONAH GARCIA Unavailable [address] + [place] [address] JONAH GARCIA Unavailable Unavailable + JONAH GARCIA Unavailable Unavailable + JONAH GARCIA Unavailable Unavailable Unavailable ATTILA DEL CID Unavailable Unavailable Unavailable JONAH GARCIA Unavailable Unavailable + JONAH GARCIA Unavailable Unavailable + EDILBERTO, JONAH Unavailable Unavailable + EDILBERTO, JONAH Unavailable Unavailable + DEILBERTO, JONAH Unavailable Unavailable + D Unavailable Unavailable Unavailable EDILBERTO, JONAH Unavailable [address] + [facility] [place] [address] EDILBERTO, JONAH Unavailable Unavailable + EDILBERTO, JONAH Unavailable Unavailable + Gordan, Jonah Unavailable Unavailable + Gordan, Jonah Unavailable Unavailable + EDILBERTO, JONAH Unavailable Unavailable + EDILBERTO, JONAH Unavailable Unavailable + EDILBERTO, JONAH Unavailable Unavailable + D Unavailable Unavailable Unavailable EDILBERTO, JONAH Unavailable [address] + [place] [address] D Unavailable Unavailable Unavailable EDILBERTO, JONAH Unavailable [address] + [place] [address] D Unavailable Unavailable Unavailable EDILBERTO, JONAH Unavailable [address] + [place] [address] D Unavailable Unavailable Unavailable EDILBERTO, JONAH Unavailable [address] + [place] [address] D Unavailable Unavailable Unavailable EDILBERTO, JONAH Unavailable [address] + [place] [address] D Unavailable Unavailable Unavailable EDILBERTO, JONAH Unavailable [address] + [place] [address] D Unavailable Unavailable Unavailable EDILBERTO, JONAH Unavailable [address] + [place] [address] D Unavailable Unavailable Unavailable EDILBERTO, JONAH Unavailable [address] + [place] [address] D Unavailable Unavailable Unavailable EDILBERTO, JONAH Unavailable [address] + [place] [address] Bakcherise, Cally Unavailable Unavailable + Gordan, Jonah Unavailable Unavailable + D Unavailable Unavailable Unavailable EDILBERTO, JONAH Unavailable [address] + [place] [address] D Unavailable Unavailable Unavailable EDILBERTO, JONAH Unavailable [address] + [place] [address] D Unavailable Unavailable Unavailable EDILBERTO, JONAH Unavailable [address] + [place] [address] D Unavailable Unavailable Unavailable EDILBERTO, JONAH Unavailable [address] + [place] [address] D Unavailable Unavailable Unavailable EDILBERTO, JONAH Unavailable [address] + [place] [address] EDILBERTO, JONAH Unavailable Unavailable Unavailable MARIA EUGENIA ATTILA Unavailable Unavailable Unavailable D Unavailable Unavailable Unavailable EDILBERTO, JONAH Unavailable [address] + [place] [address] D Unavailable Unavailable Unavailable EDILBERTO, JONAH Unavailable [address] + [place] [address] D Unavailable Unavailable Unavailable EDILBERTO, JONAH Unavailable [address] + [place] [address] D Unavailable Unavailable Unavailable EDILBERTO, JONAH Unavailable [address] + [place] [address] D Unavailable Unavailable Unavailable EDILBERTO, JONAH Unavailable [address] + [place] [address] D Unavailable Unavailable Unavailable EDILBERTO, JONAH Unavailable [address] + [place] [address] D Unavailable Unavailable Unavailable EDILBERTO, JONAH Unavailable [address] + [place] [address] D Unavailable Unavailable Unavailable EDILBERTO, JONAH Unavailable [address] + [place] [address] D Unavailable Unavailable Unavailable EDILBERTO, JONAH Unavailable [address] + [place] [address] D Unavailable Unavailable Unavailable EDILBERTO, JONAH Unavailable [address] + [place] [address] D Unavailable Unavailable Unavailable EDILBERTO, JONAH Unavailable [address] + [place] [address] D Unavailable Unavailable Unavailable EDILBERTO, JONAH Unavailable [address] + [place] [address] D Unavailable Unavailable Unavailable EDILBERTO, JONAH Unavailable [address] + [place] [address] D Unavailable Unavailable Unavailable EDILBERTO, JONAH Unavailable [address] + [place] [address] D Unavailable Unavailable Unavailable EDILBERTO, JONAH Unavailable [address] + [place] [address] D Unavailable Unavailable Unavailable EDILBERTO, JONAH Unavailable [address] + [place] [address] D Unavailable Unavailable Unavailable EDILBERTO, JONAH Unavailable [address] + [place] [address] D Unavailable Unavailable Unavailable EDILBERTO, JONAH Unavailable [address] + [place] [address] D Unavailable Unavailable Unavailable EDILBERTO, JONAH Unavailable [address] + [place] [address] D Unavailable Unavailable Unavailable EDILBERTO, JONAH Unavailable [address] + [place] [address] D Unavailable Unavailable Unavailable EDILBERTO, JONAH Unavailable [address] + [place] [address] D Unavailable Unavailable Unavailable EDILBERTO, JONAH Unavailable [address] + [place] [address] D Unavailable Unavailable Unavailable EDILBERTO, JONAH Unavailable [address] + [place] [address] D Unavailable Unavailable Unavailable EDILBERTO, JONAH Unavailable [address] + [place] [address] D Unavailable Unavailable Unavailable EDILBERTO, JONAH Unavailable [address] + [place] [address] D Unavailable Unavailable Unavailable EDILBERTO, JONAH Unavailable [address] + [place] [address] D Unavailable Unavailable Unavailable EDILBERTO, JONAH Unavailable [address] + [place] [address] D Unavailable Unavailable Unavailable EDILBERTO, JONAH Unavailable [address] + [place] [address] D Unavailable Unavailable Unavailable EDILBERTO, JONAH Unavailable [address] + [place] [address] D Unavailable Unavailable Unavailable EDILBERTO, JONAH Unavailable [address] + [place] [address] D Unavailable Unavailable Unavailable EDILBERTO, JONAH Unavailable [address] + [place] [address] D Unavailable Unavailable Unavailable EDILBERTO, JONAH Unavailable [address] + [place] [address] D Unavailable Unavailable Unavailable EDILBERTO, JONAH Unavailable [address] + [place] [address] D Unavailable Unavailable Unavailable EDILBERTO, JONAH Unavailable [address] + [place] [address] D Unavailable Unavailable Unavailable EDILBERTO, JONAH Unavailable [address] + [place] [address] D Unavailable Unavailable Unavailable EDILBERTO, JONAH Unavailable [address] + [place] [address] D Unavailable Unavailable Unavailable EDILBERTO, JONAH Unavailable [address] + [place] [address] D Unavailable Unavailable Unavailable EDILBERTO, JONAH Unavailable [address] + [place] [address] D Unavailable Unavailable Unavailable EDILBERTO, JONAH Unavailable [address] + [place] [address] D Unavailable Unavailable Unavailable EDILBERTO, JONAH Unavailable [address] + [place] [address] D Unavailable Unavailable Unavailable EDILBERTO, JONAH Unavailable [address] + [place] [address] D Unavailable Unavailable Unavailable EDILBERTO, JONAH Unavailable [address] + [place] [address] D Unavailable Unavailable Unavailable EDILBERTO, JONAH Unavailable [address] + [place] [address] D Unavailable Unavailable Unavailable EDILBERTO, JONAH Unavailable [address] + [place] [address] D Unavailable Unavailable Unavailable EDILBERTO, JONAH Unavailable [address] + [place] [address] D Unavailable Unavailable Unavailable EDILBERTO, JONAH Unavailable [address] + [place] [address] D Unavailable Unavailable Unavailable EDILBERTO, JONAH Unavailable [address] + [place] [address] D Unavailable Unavailable Unavailable EDILBERTO, JONAH Unavailable [...] Primary Care Unavailable Jona PEREZ Attending Unavailable IMCA Referring Unavailable IMCA Primary Care Unavailable IMCA [...] VANESSA Referring Unavailable IMCA Primary Care Unavailable IMCA Primary Care Unavailable SHANIQUE DELGADILLO Attending Unavailable IMCA Primary Care Unavailable RENETTA MACIAS Attending Unavailable CAMRON PEREZ Referring Unavailable CAMRON PEREZ Referring Unavailable MICHEAL WILKINSON Attending Unavailable MICHEAL WILKINSON Attending Unavailable MICHEAL WILKINSON Referring Unavailable Crozhanna, Wyatt Referring Unavailable Crombie, Wyatt Primary Care Unavailable Fernando Meyer Attending Unavailable PROVIDER, UNKNOWN Referring Unavailable No, PCP Primary Care Unavailable René Ruiz Attending Unavailable René Ruiz Attending Unavailable PROVIDER, UNKNOWN Referring Unavailable No, PCP Primary Care Unavailable Crombie, Wyatt Referring Unavailable Crombie, Wyatt Primary Care Unavailable [facility] Attending Unavailable PROVIDER, UNKNOWN Admitting Unavailable PEPE PATTERSON Attending Unavailable PROVIDER, UNKNOWN Admitting Unavailable PROVIDER, UNKNOWN Attending Unavailable PROVIDER, UNKNOWN Admitting Unavailable PROVIDER, UNKNOWN Attending Unavailable NATALIE, ISAIAH G Admitting Unavailable NATALIE, ISAAIH G Attending Unavailable TALAMPAS, VANESSA Primary Care Unavailable NATALIE, ISAIAH G Attending Unavailable TALAMPAS, VANESSA Referring Unavailable TALAMPAS, VANESSA Primary Care Unavailable TALAMPAS, VANESSA Primary Care Unavailable CONSULT, CARDIOLOGY Consulting Unavailable ALYSHA MANCILLA Attending Unavailable NATALIE, ISAIAH G Attending Unavailable TALAMPAS, VANESSA Referring Unavailable TALAMPAS, VANESSA Primary Care Unavailable LI WINSTON (ALE) Attending Unavailable TALAMPAS, VANESSA D Referring Unavailable LI WINSTON (ALE) Referring Unavailable PHANI RAGSDALE Attending Unavailable NYLA BEARDEN Referring Unavailable CAMRON PEREZ Referring Unavailable CAMRON PEREZ Admitting Unavailable CAMRON PEREZ Attending Unavailable CAMRON PEREZ Referring Unavailable CAMRON PEREZ Attending Unavailable OLEGHE, EFEWONGBE B Referring Unavailable MARIAH DESAI) Admitting Unavailable JUDE REDDY Attending Unavailable MICHEAL HUNTER JR Consulting Unavailable CAMRON PEREZ Admitting Unavailable CAMRON PEREZ Attending Unavailable CHRIS, CAMRON JAMES Referring Unavailable GALILEO RUVALCABA Attending Unavailable RENÉ GARCIA Attending Unavailable DENNIS ALFORD Attending Unavailable REGINA FRANCISCO Attending Unavailable SHANIQUE DELGADILLO Attending Unavailable RENETTA MACIAS Attending Unavailable SUDHA SINGH Primary Care Unavailable Graham Mendoza Attending Unavailable Attila Hutchinson Attending Unavailable Primay Care Aziza, No Primary Care Unavailable Shanique Omer Attending Unavailable Mike, Micheal Primary Care Unavailable Jayden Franco Attending Unavailable Wyomissing, Micheal Primary Care Unavailable Diana Mays Attending Unavailable WYATT BRUNSON Attending Unavailable Oleghe, Efewongbe Primary Care Unavailable John Davis Attending Unavailable Oleghe, Efewongbe Primary Care Unavailable Claribel Batista Attending Unavailable Oleghe, Efewongbe Referring Unavailable John Davis Attending Unavailable Oleghe, Efewongbe Primary Care Unavailable Oleghe, Efewongbe Primary Care Unavailable Rosalba Stein Attending Unavailable Claribel Btaista Attending Unavailable Oleghe, Efewongbe Referring Unavailable Oleghe, Efewongbe Primary Care Unavailable Claribel Batista Attending Unavailable Oleghe, Efewongbe Primary Care Unavailable Claribel Batista Attending Unavailable Oleghe, Efewongbe Primary Care Unavailable Oleghe, Efewongbe Primary Care Unavailable Cassy Arauz Attending Unavailable Claribel Batista Attending Unavailable Oleghe, Efewongbe Referring Unavailable Oleghe, Efewongbe Primary Care Unavailable Tawanda Colon NP-C Attending Unavailable Oleghe, Efewongbe Referring Unavailable Oleghe, [...] Unavailable Rosalinda Yousif Attending Unavailable Tawanda Colon MOBILE APPLICATION ENGINEER-C Attending Unavailable Oleghe, Efewongbe Referring Unavailable Oleghe, Efewongbe Primary Care Unavailable Oleghe, Efewongbe Attending Unavailable Oleghe, Efewongbe Referring Unavailable Oleghe, Efewongbe Primary Care Unavailable Irwin Alejo Attending Unavailable Steven, Jesse Attending Unavailable Vanessa Gonzalez Referring Unavailable Oleghe, Efewongbe Primary Care Unavailable Isaac Ahmadi Attending Unavailable Tawanda Colon MOBILE APPLICATION ENGINEER-C Attending Unavailable Oleghe, Efewongbe Referring Unavailable Oleghe, Efewongbe Primary Care Unavailable Oleghe, Efewongbe Attending Unavailable Oleghe, Efewongbe Referring Unavailable Oleghe, Efewongbe Primary Care Unavailable Attila Johnson Attending Unavailable Oleghe, Efewongbe Primary Care Unavailable White, Kandi Admitting Unavailable Bradly Davis Attending Unavailable White, Kandi Admitting Unavailable White, Kandi Attending Unavailable Oleghe, Efewongbe Primary Care Unavailable White, Kandi Consulting Unavailable Tawanda Colon MOBILE APPLICATION ENGINEER-C Attending Unavailable Oleghe, Efewongbe Referring Unavailable Oleghe, Efewongbe Primary Care Unavailable Bolivar Fonseca Attending Unavailable Oleghe, Efewongbe Primary Care Unavailable Attila Hutchinson Attending Unavailable Oleghe, Efewongbe Primary Care Unavailable Jhon Mulligan Attending Unavailable Steven, Sanders Attending Unavailable Steven, Jesse Referring Unavailable Oleghe, Efewongbe Primary Care Unavailable Steven, Jesse Attending Unavailable Steven, Sanders Referring Unavailable Oleghe, Efewongbe Primary Care Unavailable Steven, Sanders Consulting Unavailable Oleghe, Efewongbe Primary Care Unavailable Yahir, Edgar Admitting Unavailable Shelbie Knox Attending Unavailable Steven, Sanders Consulting Unavailable Yahir, Edgar Admitting Unavailable Yahir, Edgar Attending Unavailable Oleghe, Efewongbe Primary Care Unavailable Yahir, Edgar Consulting Unavailable Claribel Batista Attending Unavailable Claribel Batista Referring Unavailable Oleghe, Efewongbe Primary Care Unavailable Steven, Jesse Attending Unavailable Steven, Jesse Referring Unavailable Oleghe, Efewongbe Primary Care Unavailable Oleghe, Efewongbe Primary Care Unavailable Irwin Alejo Attending Unavailable Tawanda Colon NP-C Attending Unavailable Oleghe, Efewongbe Referring Unavailable Oleghe, Efewongbe Primary Care Unavailable Asael Hale Attending Unavailable Asael Hale Referring Unavailable Tawanda Colon MOBILE APPLICATION ENGINEER-C Attending Unavailable Oleghe, Efewongbe Referring Unavailable Oleghe, [...] Primary Care Unavailable Jayden Mike Admitting Unavailable Ashelfah, Ghasem Attending Unavailable Asael Hale Consulting Unavailable Jayden Mike Admitting Unavailable Jayden Mike Attending Unavailable Olee, Efewongbe Primary Care Unavailable Jayden Mike Consulting Unavailable Jayden Mike Admitting Unavailable HiisAsael retana Attending Unavailable Oleghe, Efewongbe Primary Care Unavailable Asael Hale Consulting Unavailable Jacobelfah, Ghasem Consulting Unavailable Jayden Mike Admitting Unavailable Ashelfah, Ghasem Attending Unavailable Oleghe, Efewongbe Primary Care Unavailable Asael Hale Consulting Unavailable Jacobelfah, Ghasem Consulting Unavailable Jayden Mike Admitting Unavailable Ashelfah, Ghasem Attending Unavailable Oleghe, Efewongbe Primary Care Unavailable Asael Hale Consulting Unavailable Jacobelfah, Ghasem Consulting Unavailable Jayden Mike Admitting Unavailable MoodispaAsael perera Attending Unavailable Oleghe, Efewongbe Primary Care Unavailable Asael Hale Consulting Unavailable Ashelfah, Ghasem Consulting Unavailable Jayden Mike Admitting Unavailable Ashelfah, Ghasem Attending Unavailable Oleghe, Efewongbe Primary Care Unavailable Asael Hale Consulting Unavailable Ashelfah, Ghasem Consulting Unavailable Jayden Mike Admitting Unavailable Asael Hale Attending Unavailable Oleghe, Efewongbe Primary Care Unavailable Alexia Asael Consulting Unavailable Ashelfah, Ghasem Consulting Unavailable Oleghe, Efewongbe Attending Unavailable Oleghe, Efewongbe Referring Unavailable Oleghe, Efewongbe Primary Care Unavailable Oleghe, Efewongbe Attending Unavailable Oleghe, Efewongbe Referring Unavailable Oleghe, Efewongbe Primary Care Unavailable Chavez Byrd Attending Unavailable Steven, Jesse Attending Unavailable Steven, Jesse Referring Unavailable Steven Sanders Attending Unavailable Oleghe, Efewongbe Primary Care Unavailable Graham Mendoza Attending Unavailable Tawanda Colon MOBILE APPLICATION ENGINEER-C Attending Unavailable Oleghe, Efewongbe Referring Unavailable Oleghe, Efewongbe Primary Care Unavailable Oleghe, Efewongbe Attending Unavailable Oleghe, Efewongbe Referring Unavailable Oleghe, Efewongbe Primary Care Unavailable Attila Johnson Attending Unavailable Tawanda Colon MOBILE APPLICATION ENGINEER-C Attending Unavailable Oleghe, Efewongbe Referring Unavailable Oleghe, Efewongbe Primary Care Unavailable Asael Hale Attending Unavailable Jacobelfah, Ghasem Referring Unavailable Asael Hale Attending Unavailable Jayden Mike Referring Unavailable Oleghe, Efewongbe Primary Care Unavailable Diana Mays Attending Unavailable ChicClaribel east Attending Unavailable Oleghe, Efewongbe Referring Unavailable Oleghe, Efewongbe Primary Care Unavailable Claribel Batista Attending Unavailable Oleghe, Efewongbe Primary Care Unavailable Claribel Batista Attending Unavailable Lucyorelnayla Claribel Referring Unavailable Oleghe, Efewongbe Primary Care Unavailable Oleghe, Efewongbe Primary Care Unavailable Cassy Cruz Attending Unavailable Oleghe, Efewongbe Primary Care Unavailable Attila Hutchinson Attending Unavailable Myesha Perez Attending Unavailable Oleghe, Efewongbe Primary Care Unavailable Chavez Byrd Attending Unavailable Keyon Grace Attending Unavailable SUDHA SINGH Primary Care Unavailable Oleghe, Efewongbe Attending Unavailable Talampas, Vanessa Referring Unavailable Talampas, Vanessa Primary Care Unavailable Shama Harley Primary Care Unavailable Tam, Dr. Devorah Soria Attending Unavailable PHYSICIAN, NONE Primary Care Unavailable RODRICK RUSSO MD Admitting Unavailable RODRICK RUSSO MD Attending Unavailable KARAN CONNOR, RODRICK Perera Admitting Unavailable RODRICK RUSSO MD Attending Unavailable PHYSICIAN, NONE Primary Care Unavailable MCKENZIE BAUMAN, MD. ELIZABETH Perera Consulting Unavailable OSWALD DEE MD, LUCY Consulting Unavailable IRAIS BAUMAN, DR. PEDRAZA Attending Unavailable PHYSICIAN, NONE Primary Care Unavailable BYRON JORGE Attending Unavailable PHYSICIAN, NONE Primary Care Unavailable HIEN GÓMEZ MD Attending Unavailable BYRON JORGE Attending Unavailable BEN SRINIVASAN, DR. RENETTA Sinha Attending Unavailable PHYSICIAN, NONE Primary Care Unavailable BILLY SILVERMAN Attending Unavailable PHYSICIAN, NONE Primary Care Unavailable RAINER LEE Attending Unavailable PHYSICIAN, NONE Primary Care Unavailable BYRON JORGE Attending Unavailable PHYSICIAN, NONE Primary Care Unavailable ANDRA, BILLY Primary Care Unavailable IRAIS BAUMAN, DR. PEDRAZA Attending Unavailable BILLY SILVERMAN Referring Unavailable JOSE FRANCISCO SRINIVASAN, DR. JIMENEZ Attending Unavailable ANDRA, BILLY Primary Care Unavailable MILLI BAUMAN, DR. KEILA Herrera Attending Unavailable ANDRA, BILLY Primary Care Unavailable JAVIER CONNOR, MARY Attending Unavailable MICHEAL WILKINSON MD Primary Care Unavailable PROBLEMS PROBLEMS DATE TYPE CONDITION / CODE ATTENDING STATUS SOURCE Admitting Other chest pain / ALYSHA MANCILLA Active [place] [address] diagnosis R07.89(ICD-10) [facility] Repository Admitting Thoracic aortic ALYSHA MANCILLA Active [place] [address] diagnosis aneurysm, without [facility] rupture / [facility] I71.2(ICD-10) Center Repository Admitting Obstructive sleep ALYSHA MANCILLA Active [place] [address] diagnosis apnea (adult) [facility] (pediatric) / [facility] G47.33(ICD-10) Center Repository Admitting Chest pain, ALYSHA MANCILLA Active [place] [address] diagnosis unspecified / [facility] R07.9(ICD-10) [facility] Repository Admitting Essential (primary) ALYSHA MANCILLA Active [place] [address] diagnosis hypertension / [facility] I10(ICD-10) [facility] Repository Active Cough / R05(ICD-10) NA Active [address] Repository Unknown S43.401A - Diana Mays Active [place] 9 Unspecified sprain of Community right shoulder joint, Hospital initial encounter / Repository S43.401A(ICD-10) Admitting Hyperlipidemia, ital, Active [facility] Diagnosis unspecified / [facility] E78.5(ICD-10) Repository Admitting Restless legs Dhital, Active [facility] 9 Diagnosis syndrome / [facility] G25.81(ICD-10) Repository Admitting Major depressive ital, Active [place] 9 Diagnosis disorder, single [facility] episode, unspecified Repository / F32.9(ICD-10) Admitting Unspecified atrial [facility], Active [facility] 9 Diagnosis fibrillation / [facility] I48.91(ICD-10) Repository Admitting Prsnl hx of TIA ital, Active [facility] 9 Diagnosis (TIA), and cereb [facility] infrc w/o resid Repository deficits / Z86.73(ICD-10) Admitting Allergy status to oth [facility], Active [facility] 9 Diagnosis drug/meds/biol subst [facility] status / Repository Z88.8(ICD-10) Admitting Allergy status to [facility], Active [facility] 9 Diagnosis penicillin / [facility] Z88.0(ICD-10) Repository Admitting Unspecified abdominal Dhital, Active [facility] 9 Diagnosis pain / R10.9(ICD-10) [facility] Repository Admitting snf (current) [facility], Active [place] 9 Diagnosis use of aspirin / [facility] Z79.82(ICD-10) Repository Admitting Allergy status to [facility], Active [facility] 9 Diagnosis other antibiotic [facility] agents status / Repository Z88.1(ICD-10) Admitting Nausea / Dhital, Active [facility] 9 Diagnosis R11.0(ICD-10) [facility] Repository Admitting Hypertensive heart ital, [facility] [place] [address] Diagnosis disease with heart [facility] failure / Repository I11.0(ICD-10) Admitting Heart failure, ital, [facility] unspecified / [facility] I50.9(ICD-10) Repository Final Dyspnea, unspecified Dr. Tam Active [place] 9 diagnosis / R06.00(ICD-10) [facility] (discharge) Repository Active Dyspnea, unspecified Dr. Tam Active [place] [facility] / R06.00(ICD-10) [facility] Repository Unknown S50.00XA - Contusion UngGraham mcdermott Active [place] 9 of unspecified elbow, Community initial encounter / Hospital S50.00XA(ICD-10) Repository Admitting Follow-up / 145() ISAIAH ANDREW Active [place] [address] diagnosis [facility] Repository Active Hematuria, RENETTA MACIAS Active [place] 8 unspecified / Clinic Other R31.9(ICD-10) [place] Repository Active Essential (primary) RENETTA MACIAS [facility] 8 hypertension / Clinic Other I10(ICD-10) [place] Repository Active Calculus of kidney / NA [facility] 8 N20.0(ICD-10) Clinic Main [place] Repository Active Other chest pain / DULLE, REGINA Active [place] 8 R07.89(ICD-10) [facility] Other [place] Repository Admitting Pure BALMARCIA, BILLY Active [place] [address] Diagnosis hypercholesterolemia, Foundation unspecified / Repository E78.00(ICD-10) Admitting Gastro-esophageal René Ruiz [facility] [place] [address] Diagnosis reflux disease System without esophagitis / Repository K21.9(ICD-10) Admitting personal carer (current) René Ruiz [facility] [place] [address] Diagnosis use of anticoagulants System / Z79.01(ICD-10) Repository Admitting Hypokalemia / [facility] Diagnosis E87.6(ICD-10) System Repository Admitting Anxiety disorder, René Ruiz [facility] 8 Diagnosis unspecified / System F41.9(ICD-10) Repository Admitting Paroxysmal atrial René Ruiz [facility] 8 Diagnosis fibrillation / System I48.0(ICD-10) Repository Admitting Benign prostatic René Ruiz [facility] 8 Diagnosis hyperplasia without System lower urinry tract Repository symp / N40.0(ICD-10) Admitting Allergy status to René Ruiz [facility] 8 Diagnosis narcotic agent status System / Z88.5(ICD-10) Repository Admitting Obesity, unspecified René Ruiz [facility] 8 Diagnosis / E66.9(ICD-10) System Repository Admitting Body mass index (BMI) René Ruiz [facility] 8 Diagnosis 32.0-32.9, adult / System Z68.32(ICD-10) Repository Admitting Personal history of René Ruiz [facility] 8 Diagnosis urinary calculi / System Z87.442(ICD-10) Repository Admitting Unknown / Jona PEREZ Active [facility] 8 diagnosis UNK(Unknown) [facility] Repository Unknown M25.511 - Pain in Chicorel, Active [place] 8 right shoulder / [facility] M25.511(ICD-10) Hospital Repository Unknown S43.006A - Diana Mays Active [place] 8 Unspecified Community dislocation of Hospital unspecified shoulder Repository joint, initial encounter / S43.006A(ICD-10) Admitting Calculus of kidney / Rewardable, i-nexus 8 Diagnosis N20.0(ICD-10) [facility] Repository Admitting Shortness of breath / [place], i-nexus 8 Diagnosis R06.02(ICD-10) [facility] System Repository Admitting Athscl heart disease Rewardable, i-nexus 8 Diagnosis of [place] coronary [facility] System artery w/o ang pctrs Repository / I25.10(ICD-10) Admitting Thoracic aortic Rewardable, i-nexus 8 Diagnosis ectasia / [facility] System I77.810(ICD-10) Repository Unknown N20.1 - Calculus of ElizabethAttila rodriguez Active [place] 8 ureter / Community N20.1(ICD-10) Hospital Repository Active Nausea with vomiting, NA Active [place] [facility] unspecified / Clinic Other R11.2(ICD-10) [place] Repository Active Chest pain, BALDI, JUDE Active [place] 8 unspecified / Clinic Other R07.9(ICD-10) [place] [facility] Active Transient cerebral BALDI, JUDE Active [place] 8 ischemic attack, Clinic Other unspecified / [place] G45.9(ICD-10) Repository Unknown I48.0 - Paroxysmal Moodisp[place], Asael Active [place] 8 atrial fibrillation / Community I48.0(ICD-10) Hospital Repository Unknown I10 - Essential MoodispaAsael perera Active [place] 8 (primary) Community hypertension / Hospital I10(ICD-10) Repository Unknown R07.9 - Chest pain, Moodispaw, Asael Active [place] 8 unspecified / Community R07.9(ICD-10) Hospital Repository Unknown R07.89 - Other chest Moodispayael, Asael Active [place] 8 pain / R07.89(ICD-10) [facility] Hospital Repository Unknown I47.1 - MoodispaAsael perera Active [place] 8 Supraventricular Community tachycardia / Hospital I47.1(ICD-10) Repository Unknown I48.92 - Unspecified MoodispaAsael perera Active [place] 8 atrial flutter / Community I48.92(ICD-10) Hospital Repository Unknown M25.531 - Pain in Chicorelli, Active [place] 8 right wrist / [facility] M25.531(ICD-10) Hospital Repository Unknown R10.9 - Unspecified Diana Mays Active [place] 8 abdominal pain / Community R10.9(ICD-10) Hospital Repository Active Thoracic aortic CHARLES, Active [place] 8 ectasia / PHANI JAYDEN Clinic Other I77.810(ICD-10) [place] Repository Unknown R00.2 - Palpitations StevenCelso calvinril Active [place] 8 / R00.2(ICD-10) Community Hospital Repository Unknown R00.0 - Tachycardia, Steven, Sanders Active [place] 8 unspecified / Community R00.0(ICD-10) Hospital Repository Unknown I25.10 - Steven, Sanders Active [place] 8 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 / I25.10(ICD-10) Active Calculus of kidney NA Active [place] 8 with calculus of Clinic Other ureter / [place] N20.2(ICD-10) Repository Active Unspecified abdominal KOVACLI HARRIS Active [place] 8 pain / R10.9(ICD-10) ([place]) Clinic Other [place] Repository Active Urinary tract KOVACLI HARRIS Active [place] 8 infection, site not ([place]) Clinic Other specified / [place] N39.0(ICD-10) Repository Unknown R06.02 - Shortness of Attila Oliva Active [place] 8 breath / Community R06.02(ICD-10) Hospital Repository Unknown I25.2 - Old Attila Oliva Active [place] 8 myocardial infarction Community / I25.2(ICD-10) Hospital Repository Unknown N20.0 - Calculus of Attila Johnson Active [place] 8 kidney / Community N20.0(ICD-10) Hospital Repository Unknown E78.00 - Pure Steven, Sanders Active [place] 8 hypercholesterolemia, Community unspecified / Hospital E78.00(ICD-10) Repository Unknown I77.810 - Thoracic Steven, 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 / Community I77.810(ICD-10) Hospital Repository Unknown M75.42 - Impingement Chicorelli, Active [place] 8 [facility] Hospital M75.42(ICD-10) Repository Unknown M75.81 - Other Chicorelli, Active [place] 8 shoulder lesions, [facility] right shoulder / Hospital M75.81(ICD-10) Repository Unknown 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, 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, [facility]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 / Hospital G56.01(ICD-10) Repository Unknown M75.101 - Unspecified Chicorelli, Active [place] 8 rotator cuff tear or [facility] rupture of right Hospital shoulder, not Repository specified as traumatic / M75.101(ICD-10) Unknown M75.41 - Impingement WYATT BRUNSON Active [place] 8 syndrome of right [facility] shoulder / Hospital M75.41(ICD-10) Repository PROCEDURES PROCEDURES DATE CODE DESCRIPTION STATUS SOURCE 10/28/2018 40026(C4) BASIC METABOLIC PANEL Completed [facility] Repository 10/28/2018 64814(C4) COMPLETE BLOOD COUNT Completed [facility] W/DIFF (RAPID RESPONSE System Repository LABS) 10/28/2018 72014(C4) PARTIAL THROMBOPLASTIN Completed [facility] TIME System Repository 10/28/2018 39974(C4) PROTHROMBIN TIME AND Completed [facility] INR System Repository 10/28/2018 91938(C4) TROPONIN I Completed [facility] Repository 10/28/2018 04661(C4) XR CHEST PA+LAT Completed [facility] Repository 10/28/2018 87692(C4) EKG 12 LEAD - PERFORM Completed [facility] Repository 10/28/2018 34515(C4) CREATINE KINASE Completed [facility] Repository 10/28/2018 51144(C4) CBC WITH Completed [facility] DIFFERENTIAL-RAPID System Repository RESPONSE LABS 10/28/2018 31716(C4) D-DIMER Completed [facility] Repository 10/28/2018 12092(C4) CTA CHEST PULMONARY Completed [facility] EMBOLISM W/ CTA System Repository 10/28/2018 28227(C4) TROPONIN I Completed [facility] Repository 10/28/2018 77748(C4) EKG 12 LEAD - PERFORM Completed [facility] Repository 10/28/2018 ED103(C4) DISCHARGE PATIENT Completed [facility] Repository 10/28/2018 72307([facility] [address] Completed [facility] CPT-4) Center Repository RESULTS RESULTS CBC WITH DIFF AUDREY Collected: 11/16/2018 Status: F Source: [facility] 5:15 AM [facility] REPOSITORY TYPE CODE TESTS RESULT OUT OF [...] Lymph 2.35 LAB AMONO 0.24-0.93 K/uL Abs Long 0.76 LAB AEOS 0.00-0.48 K/uL Abs Eos 0.19 LAB ABASO 0.00-0.09 K/uL Abs Baso 0.07 Performed By: #### CBCDFJ #### Audrey CCCT, [facility] [address] [place], [place] [address] CHEM 7 ED - CHRI Collected: 11/16/2018 Status: F Source: [facility] 5:15 AM [facility] REPOSITORY TYPE CODE TESTS RESULT OUT OF REFERENCE UNITS RANGE LAB BUN 7-22 mg/dL BUN 12 LAB CREA 0.70-1.30 mg/dL Creatinine 0.77 LAB NA 133-143 mmol/L Sodium 138 LAB K 3.5-5.0 mmol/L Potassium 3.7 LAB CL 98-108 mmol/L Chloride 108 LAB CO2 22-30 mmol/L Carbon Dioxide 24 LAB GLUC 70-99 mg/dL Glucose High 102 LAB GFR >60 mL/min/1.73 sqM Est GFR,non >60 Kazakh LAB GFRA >60 mL/min/1.73 sqM Est GFR, >60 LAB GAP 7-17 mmol/L Anion Gap 10 LAB BC BUN/CREA Ratio 16 LAB OSMC 278-305 mOsm/kg Osmolality 288 (Calc) Performed By: #### ALISEDFJ #### Audrey CCCT, [facility] [address] [place], [place] [address] URINE DRUG SCREEN Collected: 11/16/2018 Status: F Source: [facility] 2:19 AM [facility] REPOSITORY TYPE CODE TESTS RESULT OUT OF REFERENCE UNITS RANGE LAB AURES MORPHINE URINE DRUGS EPHEDRINE/PSEUDOE DETECTED PHEDRINE LIDOCAINE CITALOPRAM LAB AUDRG For Medical Urine Drug Purposes Only, Screen Non-forensic, screen results are presumptive. No confirmatory testing will follow. Result Comment: This Liquid Chromatography Mass Spectrometry (LC/MS/MS) test was developed and its performance characteristics determined by Toxicology Laboratory at [facility]. It has not been cleared or approved [...] Amitriptyline(50), Amphetamine(250), Atenolol(500), Barbiturates(200), Benzoylecgonine(50), Buprenorphine(500), Bupropion(25), Caffeine(61008), Cannabinoids(THC)(50), Chlordiazepoxide(50), Chlorpheniramine(100), Chlorpromazine(50), Citalopram(100), Clonazepam(200), Cocaine(25), [...] Zolpidem(200) Performed By: #### UDRG #### [facility] [address] [place] [address] [place] [address] CT ANGIO CHEST Observed: 11/16/2018 Status: F Source: [facility] (NONCORONARY) 12:30 AM [facility] REPOSITORY EXAM: CT ANGIO CHEST (NONCORONARY), 11/15/2018 [...] W/ MICROSCOPIC-CHRI Collected: 11/16/2018 Status: F Source: [facility] 12:20 AM [facility] REPOSITORY TYPE CODE TESTS RESULT OUT OF RANGE REFERENCE UNITS LAB HAND FORMER HELPER Clear Appearance Urine Clear LAB SPGR 1.001-1.035 Specific [place] urine 1.015 LAB UPH 5.0-7.0 High pH [...] None Performed By: #### URNJ #### [facility] [place] [address] TROPONIN - CHRI Collected: 11/16/2018 Status: F Source: [facility] 12:20 AM [facility] REPOSITORY TYPE CODE TESTS RESULT OUT OF REFERENCE UNITS RANGE LAB TROP <0.11 ng/mL Troponin I <0.01 XR CHEST AP PORTABLE Observed: 11/15/2018 Status: F Source: [facility] ED 10:28 PM [facility] REPOSITORY EXAM: XR CHEST AP PORTABLE ED, [...] DIFF AUDREY Collected: 11/15/2018 Status: F Source: [facility] 9:35 PM [facility] REPOSITORY TYPE CODE TESTS RESULT OUT OF [...] Lymph 2.21 LAB AMONO 0.24-0.93 K/uL Abs Long 0.80 LAB AEOS 0.00-0.48 K/uL Abs Eos 0.15 LAB ABASO 0.00-0.09 K/uL Abs Baso 0.05 Performed By: #### CBCDFJ #### [facility]rey CCCT, [facility] [address] [place] [address] #### TROP #### [facility] [address] [place] [address] [place], [place] [address] PT*PTT - CHRI Collected: 11/15/2018 Status: F Source: [facility] 9:35 PM [facility] REPOSITORY TYPE CODE TESTS RESULT OUT OF RANGE REFERENCE UNITS LAB PT 11.9-14.2 sec PT 12.6 LAB INR 0.9-1.1 INR 0.9 LAB PTT 24.0-34.3 sec PTT 30.1 Performed By: #### CBCDFJ #### [facility]rey [facility] [address] [place] [address] #### TROP #### [facility] [address] [place] [address] [place] [address] [address] [place] [address] CALCIUM - CHRI Collected: 11/15/2018 Status: F Source: [facility] 9:35 PM [facility] REPOSITORY TYPE CODE TESTS RESULT OUT OF REFERENCE UNITS RANGE LAB CA 8.6-10.5 mg/dL Calcium 8.9 Performed By: #### ALISEDFJ #### [facility] [address] [place] [address] #### TROP #### [facility] [address] [place] [address] [place] [address] [address] [place] [address] CHEM 7 - CHRI Collected: 11/15/2018 Status: F Source: [facility] 9:35 PM [facility] REPOSITORY TYPE CODE TESTS RESULT OUT OF REFERENCE UNITS RANGE LAB BUN 7-22 mg/dL BUN 11 LAB CREA 0.70-1.30 mg/dL Creatinine 0.91 LAB NA 133-143 mmol/L Sodium 139 LAB K 3.5-5.0 mmol/L Low Potassium 3.3 LAB CL 98-108 mmol/L Chloride 107 LAB CO2 22-30 mmol/L Carbon Dioxide 24 LAB GLUC 70-99 mg/dL Glucose 89 LAB GFR >60 mL/min/1.73 sqM Est GFR,non >60 Kazakh LAB GFRA >60 mL/min/1.73 sqM Est GFR, >60 LAB GAP 7-17 mmol/L Anion Gap 11 LAB BC BUN/CREA Ratio 12 LAB OSMC 278-305 mOsm/kg Osmolality 288 (Calc) Performed By: #### CBCDFJ #### Audrey [facility] [address] [place] [address] #### TROP #### [facility] [address] [place] [address] [facility] [address] [place] [address] INORG PHOSPHATE - CHRI Collected: 11/15/2018 Status: F Source: [facility] 9:35 PM [facility] REPOSITORY TYPE CODE TESTS RESULT OUT OF REFERENCE UNITS RANGE LAB IP 2.2-4.6 mg/dL Inorg Phosphate 2.3 Performed By: #### CBCDFJ #### Audrey [facility] [address] [place] [address] #### TROP #### [facility] [address] [place] [address] [facility] [address] [place] [address] MAGNESIUM - CHRI Collected: 11/15/2018 Status: F Source: [facility] 9:35 PM [facility] REPOSITORY TYPE CODE TESTS RESULT OUT OF REFERENCE UNITS RANGE LAB MG 1.6-2.6 mg/dL Magnesium 1.9 Performed By: #### CBCDFJ #### [facility]rey [facility] [address] [place] [address] #### TROP #### [facility] [address] [place] [address] [facility] [address] [place] [address] TROPONIN I Collected: 11/15/2018 Status: F Source: [facility] 9:35 PM [facility] REPOSITORY TYPE CODE TESTS RESULT OUT OF REFERENCE UNITS RANGE LAB BNP 0-100 pg/mL B-Type Natriuretic 18 Peptide Performed By: #### CBCDFJ #### [facility], [facility] [address] [place] [address] #### TROP #### [facility] [address] [place] [address] [facility] [address] [place] [address] TROP Collected: 11/12/2018 Status: F Source: [facility] 6:23 PM [facility] REPOSITORY TYPE CODE TESTS RESULT [...] ECG changes may help assess possibility of MN. *Other non-acute coronary syndrome conditions such as CHF, myocarditis, pulmonary emboli, sepsis and cardiac surgery could result in myocardial damage and increased troponin levels. Performed By: #### TROP, BMP, GFR #### [place] [address] #### CBC, ADIFF, ANEU, DIFF, MORPH #### [address] [address] BMP Collected: 11/12/2018 Status: F Source: [facility] 6:23 [facility] REPOSITORY [...] Performed By: #### TROP, BMP, GFR #### [place] [address] #### CBC, ADIFF, ANEU, DIFF, MORPH #### [place] [id number] [place], [place] [address] .GFR Collected: 11/12/2018 Status: F Source: [facility] 6:23 PM [facility] REPOSITORY TYPE CODE TESTS RESULT OUT OF REFERENCE UNITS RANGE LAB GFRAA(LOINC ml/min/1.73 ) sqm GFR 99 Kazakh Result Comment: GFR Population mean for , [...] Performed By: #### TROP, BMP, GFR #### [address] [address] #### CBC, ADIFF, ANEU, DIFF, MORPH #### [place] [address] [place], [place] [address] CBC Collected: 11/12/2018 Status: C Source: [facility] 6:23 PM [facility] REPOSITORY TYPE CODE [...] Performed By: #### TROP, BMP, GFR #### [place] [address] #### CBC, ADIFF, ANEU, DIFF, MORPH #### [address] [address] .AUTO DIFF Collected: 11/12/2018 Status: C Source: [facility] 6:23 [facility] REPOSITORY [...] Performed By: #### TROP, BMP, GFR #### [place] [address] #### CBC, ADIFF, ANEU, DIFF, MORPH #### [place] [address] [place], [place] [address] .NEUABS Collected: 11/12/2018 Status: C Source: [facility] 6:23 [facility] REPOSITORY TYPE CODE TESTS RESULT OUT OF REFERENCE UNITS RANGE LAB ANEU(LOINC) 2.85-6.16 10 3/mcL Neutrophil, 3.64 Absolute Performed By: #### TROP, BMP, GFR #### [place] [address] #### CBC, ADIFF, ANEU, DIFF, MORPH #### [address] [address] .MANUAL DIFF Collected: 11/12/2018 Status: C Source: [facility] 6:23 PM [facility] REPOSITORY TYPE CODE TESTS RESULT OUT OF REFERENCE UNITS RANGE LAB NEUM(LOINC 37.0-80.0 % ) Neutrophil %, 65.0 Manual LAB LYMM(LOINC 10.0-50.0 % ) Lymphocyte %, 28.0 Manual LAB MONM(LOINC 1.7-13.0 % ) Monocyte %, Manual 7.0 LAB EOM(LOINC) 0.0-7.0 % Eosinophil %, 0.0 Manual LAB BASM(LOINC 0.0-2.5 % ) Basophil %, Manual 0.0 Performed By: #### TROP, BMP, GFR #### [place] [address] #### CBC, ADIFF, ANEU, DIFF, MORPH #### [address] [address] .MORPH Collected: 11/12/2018 Status: C Source: [facility] 6:23 [facility] REPOSITORY TYPE CODE TESTS RESULT OUT OF REFERENCE UNITS RANGE LAB PLTE(LOINC) Platelet Normal Estimate Performed By: #### TROP, BMP, GFR #### [place] [address] #### CBC, ADIFF, ANEU, DIFF, MORPH #### [address] [address] XR CHEST 1 VIEW Observed: 11/12/2018 Status: F Source: [facility] 6:21 PM [facility] REPOSITORY ORIGINAL XR CHEST 1 VIEW Upright [...] 2V FRONTAL/LAT Observed: 11/12/2018 Status: F Source: [place] 2:21 PM [facility] REPOSITORY * * *Final Report* * * [...] aorta. No developing abnormality or acute process. Grill Chef: PSCB Transcribe Date/Time: Nov 12 2018 3:08P Dictated by : AARTI KNIGHT MD This examination was interpreted and the report reviewed and electronically signed by: AARTI KNIGHT MD on Nov 12 2018 3:09PM EST [id number] Observed: 11/12/2018 Status: COMPLETED Source: [place] 2:12 PM [facility] REPOSITORY HNO ID: [id number] Author: Lindsey Ojeda (Rt) Roney Ruiz Service: (none) Author Type: Affirmative Action Specialist Type: Progress Notes Filed: 11/12/2018 2:21 PM [...] ASSAY FLU Collected: 11/12/2018 Status: F Source: [place] 2:00 PM [facility] REPOSITORY TYPE CODE TESTS RESULT OUT OF REFERENCE UNITS RANGE LAB FLRS Nasopharyngeal Specimen Swab Source LAB PCRFLA Negative for Influenza A Influenza A by RT PCR PCR LAB PCRFLB Negative for Influenza B Influenza B by RT PCR PCR Performed By: #### FLUPCR #### [facility] [address] [place] [id number] PROGRESS Observed: 11/12/2018 Status: COMPLETED Source: [place] 1:41 PM [facility] REPOSITORY HNO ID: [id number] Author: Micheal Wilkinson Service: (none) Author Type: [...] Upset - Levofloxacin Rash pt reports to [facility] PT 04-13-2017 - Penicillin G Rash - [...] SURGERY HX Right 03/2017 patella replacement - CT ANESTH,KNEE JOINT; NOS 12/2017 Left - REMOVAL [...] MD CNOV Observed: 11/12/2018 Status: COMPLETED Source: [place] 1:20 PM [facility] REPOSITORY [facility] ATTILA DEL CID ([id number]) 1970 M Date Time Provider Department 11/12/18 1:20 PM MICHEAL WILKINSON [facility] During your visit today, we recorded the following information about you: Temperature Pulse Blood pressure Weight 98.4 degrees 100/minute 102/62 105.7 kg Thalia Schulte LPN 11/12/2018 1:35 PM Signed [...] Upset - Levofloxacin Rash pt reports to [facility] PT 04-13-2017 - Penicillin G Rash - [...] SURGERY HX Right 03/2017 patella replacement - CT ANESTH,KNEE JOINT; NOS 12/2017 Left - REMOVAL [...] 2 - Rash Comments: pt reports to [facility] PT 6-24-2017 PENICILLIN G 12/30/2013 2 - [...] PCR ASSAY FOR INFLUENZA [SQFLUPCR] Order #: [id number] XR CHEST 2V FRONTAL/LAT [[id number]] Order #: [id number] FUTURE oseltamivir (TAMIFLU) 75 mg capsuleTake 1 [...] [F41.9] INVALID FOR* Visit Notes: >> Thalia Schulte [employer]IVE [employer]DITION[employer]CH[employer]IC SatNov 12, 2018 1:32 PM Status: Signed ENT: [...] EMERGENCY DEPARTMENT Observed: 11/08/2018 Status: F Source: [place] SUMMARY 9:59 PM [facility] REPOSITORY [facility] Medical Records Department [address] [facility] [place] [address] Emergency Department Summary 11/08/18 1815 MR#: [id number] Acct: [id number] Name: ATTILA DEL CID Rep #: [id number] : 1970 48 From: Diana Mays MD [...] shoulder sprain This note was generated with Preggers dictation software. It may contain incorrect words, [...] your Primary Care Provider. Call [facility] ([phone]) or report to the closest Emergency Room. Call 911 if necessary. 11/08/182158 <Electronically signed by Diana Mays MD> Date Diana Mays MD Cosigner Signature (If Indicated): Date CC: Micheal Wilkinson MD DISCHARGE INSTRUCTION Observed: 11/08/2018 Status: F Source: [place] 7:48 PM [facility] REPOSITORY [facility] Medical Records Department [address] [place] [address] Discharge Instruction 11/08/181947 MR#: [id number] Acct: [id number] Name: ATTILA DEL CID Rep #: [id number] : 1970 48 From: Diana Mays MD [...] your Primary Care Provider. Call [facility] ([phone]) or report to the closest Emergency Room. Call 911 if necessary. 11/08/181947 <Electronically signed by Diana Mays MD> Date Diana Mays MD Cosigner Signature (If Indicated): Date CC: Micheal Wilkinson MD DISCHARGE INSTRUCTION Observed: 11/08/2018 Status: F Source: [place] 7:47 PM [facility] REPOSITORY [facility] Medical Records Department [address] [place] [address] [place] [address] Discharge Instruction 11/08/181944 MR#: [id number] Acct: [id number] Name: ATTILA DEL CID Rep #: [id number] : 1970 48 From: Diana Mays MD PCP: Micheal Wilkinson MD Status: REG ER ED Disposition - Plan for ED Patient: Disposition: Home or Assisted Living Chief Complaint: Upper Extremity Injury Instructions: ED Sprain Shoulder Prescriptions: Oxycodone HCl/Acetaminophen [Percocet 5/325] 1 tablet PO Q6H PRN PRN 3 Days #12 tablet PRN Reason: Pain Referrals: Jayden Franoc DO [STAFF PHYSICIAN] - 1 Week if not improving What to do if you have Problems For any increased pain, shortness of breath, bleeding, nausea or vomiting, chest pain, or any unexpected problems, contact your Primary Care Provider. Call [facility] ([phone]) or report to the closest Emergency Room. Call 911 if necessary. 11/08/181946 <Electronically signed by Diana Mays MD> Date Diana Mays MD [facility] Signature (If Indicated): Date CC: Micheal Wilkinson MD SHOULDER MIN 2 VIEWS Observed: 11/08/2018 Status: F Source: [place] 6:06 PM [facility] REPOSITORY [facility] Imaging Services [address] [place] [address] Shoulder min 2 Views MR#: [id number] Acct: [id number] Name: ATTILA DEL CID Rep #: [id number] : 1970 48 From: Soto Mena MD PCP: Micheal Wilkinson MD Status: REG ER Study: Shoulder min 2 Views Date of Exam: 11/08/18 Exam# [id number] Ordering Dr: Diana Mays MD STUDY: X-RAY [...] CC: Diana Mays MD; Micheal Wilkinson MD Grill Chef: Signed ORTHOPEDIC VISIT Observed: 11/07/2018 Status: F Source: [place] RE[place] 10:15 AM [facility] REPOSITORY [facility] [address] [facility] [address] [place] [address] OFFICE VISIT Date of Service: 11/07/18 MR#: [id number] Acct: [id number] Name: ATTILA DEL CID Rep #: [id number] : 1970 Provider: Jayden Franco DO Age/Sex: 48/M Location: [facility].[place] Status: Signed Intake Vital [...] [History Confirmed 11/06/18] Fluticasone 0.05% [Flonase Nasal [place]] 1 spray NASAL DAILY #1 nasal.sry 08/31/18 [...] sleep apnea) (Chronic) Atherosclerotic heart disease of [place] coronary artery without angina pectoris (Chronic) Nephrolithiasis [...] elbow M24.022 11/07/18 1004 <Electronically signed by Jayden Franco DO> Date Jayden Adames Signature: Date (if applicable) CC: No Primary Care Physician EMERGENCY DEPARTMENT Observed: 11/06/2018 Status: F Source: [place] SUMMARY 1:41 AM [facility] REPOSITORY [facility] Medical Records Department [address] [place] [address] Emergency Department Summary 11/06/18 0139 MR#: [id number] Acct: [id number] Name: ATTILA DEL CID Rep #: [id number] : 1970 48 From: Shanique Omer MD [...] pain Diarrhea This note was generated with Preggers dictation software. It may contain incorrect words, [...] your Primary Care Provider. Call [facility] ([phone]) or report to the closest Emergency Room. Call 911 if necessary. 11/06/18140 <Electronically signed by Shanique Omer MD> Date Shanique Omer MD Cosigner Signature (If Indicated): Date CC: Micheal Wilkinson MD DISCHARGE INSTRUCTION Observed: 11/06/2018 Status: F Source: [place] 1:41 AM [facility] REPOSITORY [facility] Medical Records Department [address] [place] [address] Discharge Instruction 11/06/18140 MR#: [id number] Acct: [id number] Name: ATTILA DEL CID Rep #: [id number] : 1970 48 From: Shanique Omer MD [...] your Primary Care Provider. Call [facility] ([phone]) or report to the closest Emergency Room. Call 911 if necessary. 11/06/18 0141 <Electronically signed by Shanique Omer MD> Date Shanique Omer MD Cosigner Signature (If Indicated): Date CC: Micheal Wilkinson MD URINALYSIS, COMPLETE Collected: 11/06/2018 Status: F Source: [place] 1:07 AM [facility] REPOSITORY Order Comment: Order Date: 11/06/18 How [...] URINE SEEN Performed By: #### L400.0001 #### [facility] [address] [place], [address] ABDOMEN/PELVIS WITHOUT Observed: 11/06/2018 Status: F Source: [place] CONT 12:05 AM [facility] REPOSITORY [facility] Imaging Services [address] [place] [address] Abdomen/Pelvis without Cont MR#: [id number] Acct: [id number] Name: ATTILA DEL CID Rep #: [id number] : 1970 M 48 From: Rodrick Ayala MD PCP: Micheal Wilkinson MD Status: REG ER Study: Abdomen/Pelvis without Cont Date of Exam: 11/06/18 Exam# [id number] Ordering Dr: Shanique Omer MD STUDY: CT [...] CC: Shanique Omer MD; Micheal Wilkinson MD Grill Chef: Signed CBC W/DIFF, AUTOMATED Collected: 11/05/2018 Status: F Source: [place] 11:57 PM [facility] REPOSITORY TYPE CODE TESTS RESULT OUT OF [...] Lymph 2.44 Performed By: #### L100.0100 #### [facility] [address] [place], [place], [address] BASIC METABOLIC Collected: 11/05/2018 Status: F Source: [place] PROFILE (BMP) 11:57 PM [facility] REPOSITORY TYPE CODE TESTS RESULT OUT OF [...] Performed By: #### L500.2500, L500.3400, L501.2450 #### [facility] [address] [place], [place], [address] LIVER PROFILE Collected: 11/05/2018 Status: F Source: [place] 11:57 PM [facility] REPOSITORY TYPE CODE TESTS RESULT OUT OF [...] Performed By: #### L500.2500, L500.3400, L501.2450 #### [facility] [address] [place], [address] LIPASE Collected: 11/05/2018 Status: F Source: [place] 11:57 PM [facility] REPOSITORY TYPE CODE TESTS RESULT OUT OF RANGE REFERENCE UNITS LAB L501.2450 73-393 U/L Normal LIPASE 203 Performed By: #### L500.2500, L500.3400, L501.2450 #### [facility] [address] [place], [address] PROGRESS Observed: 11/04/2018 Status: COMPLETED Source: [place] 2:00 PM [facility] REPOSITORY O ID: [id number] Author: Micheal Wilkinson Service: (none) Author Type: Physician Type: Progress Notes Filed: 11/04/2018 2:46 PM Note Text: Patient presents with: Establish Care HPI: Patient presents today for office visit for establishing care. Recently was hospitalized at [facility] for non cardiac chest pain. Saw inpatient [...] which were negative. Did also see his certified alcohol and drug counselor who felt it was noncardiac. Just saw cardiology in [place] and is aware of his chest pain. He is seeing a surgeon in [place] for his aorta on November 18 although [...] Upset - Levofloxacin Rash pt reports to [facility] PT 04-13-2017 - Penicillin G Rash - [...] SURGERY HX Right 03/2017 patella replacement - CT ANESTH,KNEE JOINT; NOS 12/2017 Left - REMOVAL [...] No Other Topics Concern Caffeine Concern Yes Comment:torie Reviewed current medications, allergies, past medical history, [...] MD RTO in six weeks. and prn. CNOV Observed: 11/04/2018 Status: COMPLETED Source: [place] 2:00 PM [facility] REPOSITORY Office Visit (FAMPWS) ATTILA DEL CID ([id number]) 1970 M Date Time Provider Department 11/04/18 2:00 PM [facility] During your visit today, we recorded the following information about you: Pulse Respiration Blood pressure Weight 98/minute 18/minute 124/80 108.4 kg Micheal Wilkinson MD 11/04/2018 2:46 PM Signed Patient presents with: Establish Care HPI: Patient presents today for office visit for establishing care. Recently was hospitalized at [facility] for non cardiac chest pain. Saw inpatient [...] which were negative. Did also see his certified alcohol and drug counselor who felt it was noncardiac. Just saw cardiology in [place] and is aware of his chest pain. He is seeing a surgeon in [place] for his aorta on November 18 although [...] Upset - Levofloxacin Rash pt reports to [facility] PT 04-13-2017 - Penicillin G Rash - [...] SURGERY HX Right 03/2017 patella replacement - CT ANESTH,KNEE JOINT; NOS 12/2017 Left - REMOVAL [...] be seen by just stopping at the front desk attendant on arrival. It also allows you to [...] we are also available by phone at [phone]. You can also contact our office directly [...] 2 - Rash Comments: pt reports to [facility] PT - PENICILLIN G 12/30/2013 2 - [...] Rfl: CBC + DIFF [SQCBCDIF] Order #: [id number] FUTURE COMP METABOLIC PANEL [SQCMP] Order #: [id number] FUTURE LIPID PANEL BASIC [SQLIPB] Order #: [id number] FUTURE PHYSICAL THERAPY EVALUATION [[id number]] Order #: [id number]: 1 Prescriptions as of 11/04/2018 Sig: BUSPIRONE [...] be seen by just stopping at the front desk attendant on arrival. It also allows you to [...] we are also available by phone at [phone]. You can also contact our office directly [...] DISCHARGE SUMMARY Observed: 10/31/2018 Status: F Source: [place] 3:10 PM SYSTEM REPOSITORY CDU Discharge Summary [...] flank pain, initially. Pt was seen at [place] ED with complaints of flank pain, once [...] and sick contacts. Pt was seen at [facility] ED on 10/28/18 for the same symptoms and discharged with negative cardiac work-up and negative CTA of chest, and instructed to follow-up with his car trimmer Dr. Andrew. Pt noting previous heart attack 4 years ago at this hospital. No documentation of this has been identified - will continue to look through EMR. Pt has multiple visits for chest pain at multiple facilities in area. Per pt his ablation for afib was done at [facility] in 10/06, he notes April of 2018 he underwent a heart catheterization at [facility] resulting in no stents. May of 2018 he notes he has a stress test done at [place] that was positive. Diagnostic test completed during [...] MEDICATIONS: Attila Del Cid Home Medication Instructions SOURAV:[id number] Printed on:10/31/18 9217 Medication Information amLODIPine (NORVASC) 5 MG tablet [...] Time: 10/30/2018 8:38 10/31/2018 ?1:32 PM - [facility], [facility] Incoming Cardiology Results From Merge/Epiphany Narrative ? [facility] ? Test Date: ? ?2018-10-30 Pat Name: ? ? Attila Fordjoiedolores ?Department: ? 1DEM MRN: ?[id number] ? Room: ? 1CDU Gender: ? ? ? M ?Affirmative Action Specialist: ? PASTORA : ?1970 ? Requested By: SANJAY Order Number: [id number] ?Reading : ? Vidal Tripp ? Measurements Intervals ?[place] ? Rate: ? 70 ? P: ?16 CT: ? 161 ?QRS: ?9 QRSD: ? 97 [...] GLUCOSE 78 CALCIUM 9.3 TROPONIN: Recent Labs 10/30/18214810/31/18 0651 TROPONINI <0.012 <0.012 10/30/2018 11:19 PM [facility] [place] Results From [place]/[facility] Component Results Component Value Ref Range & Units Status Collected Lab D-Dimer, Quant 0.36 0.00 - 0.50 mg/L Final 10/30/2018 10:43 PM [facility] D-Dimer values of <0.50 mg/L [...] on the Discharge Instructions. SIGNED: DIANA FITZPATRICK APRN-NEEDLE PROCESS F[employer]T GOODS SUPERVISOR 10/31/2018, 11:41 PM TROPONIN I Collected: 10/31/2018 Status: F Source: [place] 6:51 AM SYSTEM REPOSITORY TYPE CODE TESTS RESULT OUT OF RANGE REFERENCE UNITS LAB TROP4 0.000-0.034 ng/mL Normal Troponin I < 0.012 Result Comment: 0.046 - 0.400 = Indeterminate > 0.400 = Consider Myocardial Injury Performed By: #### TROPN #### [facility] [address] [place] [id number] [address] CHEST W/ CONTRAST Observed: 10/31/2018 Status: F Source: [place] 1:08 AM SYSTEM REPOSITORY Patient Name: ATTILA DEL CID CT Exam Date/Time 10/31/2018 00:30:[address] Chest w/ Contrast Ordering Physician [id number] LARSON Accession Number [id number] CPT4 Codes 16302 (), Q9967 (CT ISOVUE 370MG/[id number]) Reason For Exam AORTIC DZ, NON-TRAUMATIC, KNOWN [...] D-DIMER, INNOVANCE Collected: 10/30/2018 Status: F Source: [place] 10:43 PM SYSTEM REPOSITORY TYPE CODE TESTS [...] thrombosis (DVT). Performed By: #### DDI2 #### [facility] [address] [address] HEMOGRAM W/ AUTODIFF Collected: 10/30/2018 Status: F Source: [place] 9:49 PM SYSTEM REPOSITORY TYPE CODE TESTS [...] Performed By: #### HEMDF, BMP3, TROPN #### [employer] [address] [place] [address] BASIC METABOLIC PANEL Collected: 10/30/2018 Status: F Source: [place] 9:49 PM SYSTEM REPOSITORY TYPE CODE TESTS [...] Performed By: #### HEMDF, BMP3, TROPN #### [employer] [facility] [address] [place] [address] TROPONIN I Collected: 10/30/2018 Status: F Source: [place] 9:49 PM SYSTEM REPOSITORY TYPE CODE TESTS RESULT OUT OF RANGE REFERENCE UNITS LAB TROP4 0.000-0.034 ng/mL Normal Troponin I < 0.012 Result Comment: 0.046 - 0.400 = Indeterminate > 0.400 = Consider Myocardial Injury Performed By: #### HEMDF, BMP3, TROPN #### [employer] [address] [place] [address] CT ABDOMEN/PELVIS W/O Observed: 10/30/2018 Status: F Source: [place] CONTRAST 8:38 PM SYSTEM REPOSITORY Patient Name: ATTILA DEL CID CT Exam Date/Time 10/30/2018 20:30:[address] Abdomen/Pelvis (No PO, No IV) Ordering Physician [id number] LARSON Accession Number [id number] CPT4 Codes 48383 (CT Abdomen/Pelvis (No PO, No IV)) Reason [...] 8:38 URINALYSIS,MACRO Collected: 10/30/2018 Status: F Source: [facility] 8:13 PM SYSTEM REPOSITORY TYPE CODE TESTS RESULT OUT OF REFERENCE UNITS RANGE LAB APPUR Clear NA Appearance Clear LAB COLUR Lt. Yellow NA Color Yellow LAB USG 1.005-1.030 NA Specific Normal [place],Urine 1.020 LAB UPH 5.0-8.0 NA pH,Urine Normal [...] Negative Performed By: #### UAMAC, UAMIC #### [address] [address] URINALYSIS,MICROSCOPIC Collected: Status: F Source: [facility] 10/30/2018 8:13 PM HEALTH SYSTEM REPOSITORY TYPE CODE TESTS RESULT OUT OF REFERENCE UNITS RANGE LAB WBCU 0-5 /[HPF] 0 WBC,Urine - 2 LAB RBCU 0-2 /[HPF] RBC,Urine Negative LAB EPIU 3-5 /[HPF] 0 Epithelial Cells - 2 LAB CRISTINA Negative NA Bacteria Few (1-5) Performed By: #### UAMAC, UAMIC #### [address] [address] 12 LEAD ELECTROCARDIOGRAM Observed: 10/29/2018 Status: F Source: [place] 2:39 PM [facility] REPOSITORY [facility] Cardiovascular Services [address] [place] [address] 12 Lead EKG 10/27/18 1733 MR#: [id number] Acct: [id number] Name: MARIA EUGENIAATTILA K Rep #: [id number] : 1970 48 From: Asael Hale MD [...] Sinus tachycardia Otherwise normal ECG Confirmed by ASAEL HALE MD ([id number]), dictionary editor RICCO LEWIS ([id number]) on 10/29/2018 2:38:50 PM Referred By: ZAKI Confirmed By:AASEL HALE MD 10/29/18 1438 Date Asael Hale MD CC: No Primary Care Physician; Attila Hutchinson DO Signed 12 LEAD ELECTROCARDIOGRAM Observed: 10/29/2018 Status: F Source: [place] 2:37 PM [facility] Cardiovascular Services [address] [place] [address] 12 Lead EKG 10/27/18 1609 MR#: [id number] Acct: [id number] Name: MARIA EUGENIAKOFIATTILA K Rep #: [id number] : 1970 48 From: Asael Hale MD [...] Sinus tachycardia Otherwise normal ECG Confirmed by ASAEL HALE MD ([id number]), dictionary editor RICCO LEWIS ([id number]) on 10/29/2018 2:37:16 PM Referred By: ZAKI Confirmed By:ASAEL HALE MD 10/29/18 1435 Date Asael Hale MD CC: No Primary Care Physician; Attila Hutchinson DO Signed TROPONIN I Collected: 10/29/2018 Status: F Source: THE [employer] 1:28 AM SYSTEM REPOSITORY TYPE CODE TESTS RESULT OUT OF REFERENCE UNITS RANGE LAB trop istat 0.00-0.09 ng/mL TROP I, 0.00 I-STAT Performed By: #### TROP I #### [facility] [address] [facility] [place] [address] CTA CHEST PULMONARY Observed: 10/28/2018 Status: F Source: THE [employer] EMBOLISM W/ CTA 11:45 PM SYSTEM REPOSITORY [...] per 1 lb. INTRA-PROCEDURE MEDS: Contrast Agent [id number] 100ml Bottle 100 milliliter 10/28/2018 INTRAVENOUS FINDINGS: [...] PA+LAT Observed: 10/28/2018 Status: F Source: THE [employer] 11:00 PM SYSTEM REPOSITORY EXAMINATION: XR CHEST [...] D-DIMER Collected: 10/28/2018 Status: F Source: THE [employer] 10:54 PM SYSTEM REPOSITORY Order Comment: A [...] DIMER 241 Performed By: #### DIMER #### [facility] [address] [place] [address] [place] [address] CBC WITH DIFFERENTIAL-RAPID Collected: Status: F Source: THE [facility] 10/28/2018 10:28 PM [employer] SYSTEM REPOSITORY TYPE CODE TESTS RESULT OUT [...] # 0.01 Performed By: #### CBCDSAT #### [facility] [address] [place] [address] [place] [phone] TROPONIN I Collected: 10/28/2018 Status: F Source: THE [employer] 10:28 PM SYSTEM REPOSITORY TYPE CODE TESTS RESULT OUT OF REFERENCE UNITS RANGE LAB trop istat 0.00-0.09 ng/mL TROP I, 0.00 I-STAT Performed By: #### TROP I #### [facility] [address] [place] [address] [place] [address] PROTHROMBIN TIME AND Collected: 10/28/2018 Status: F Source: THE [facility] 10:28 PM [facility] TYPE CODE TESTS RESULT OUT OF REFERENCE UNITS RANGE LAB PT PAT 9.6-12.4 sec PROTIME 12.2 LAB INR 0.90-1.10 INR 1.07 Performed By: #### PT, APTT #### [facility] [address] [place] [address] [place] [phone] PARTIAL THROMBOPLASTIN Collected: 10/28/2018 Status: F Source: THE TIME 10:28 PM [employer] SYSTEM REPOSITORY TYPE CODE TESTS RESULT OUT OF RANGE REFERENCE UNITS LAB APTT 21-33 sec APTT 27 Performed By: #### PT, APTT #### [facility] [address] [place] [address] [place] [phone] BASIC METABOLIC PANEL Collected: 10/28/2018 Status: F Source: THE [employer] 10:28 PM SYSTEM REPOSITORY TYPE CODE TESTS [...] Performed By: #### CH8, CK #### [facility] [address] [place] [address] [place] [address] CREATINE KINASE Collected: 10/28/2018 Status: F Source: [facility] 10:28 PM SYSTEM REPOSITORY TYPE CODE TESTS RESULT OUT OF REFERENCE UNITS RANGE LAB dC 57-374 IU/L CREATINE 76 KINASE Performed By: #### CH8, CK #### [facility] [address] [place] [address] [place] [address] CHEST 2 VIEW PA AND Observed: 10/28/2018 Status: F Source: [facility] 8:03 PM [facility] REPOSITORY Patient Name: ATTILA DEL CID STUDY: Chest dated 10/28/2018. INDICATION: Signs/Symptoms: Chest pain and /or palpitations COMPARISON: Chest dated 04/18/2017. ACCESSION NUMBER(S): [id number] ORDERING CLINICIAN: DEVORAH WELLS TECHNIQUE: PA and lateral radiograph of the chest. FINDINGS: The lungs are clear. No pneumothorax or effusion is evident. The cardiomediastinal silhouette is not enlarged. The soft tissues are grossly unremarkable. IMPRESSION: No acute cardiopulmonary process is evident. Electronically signed by: NIRMALA HADDAD MD CBC AND DIFFERENTIAL Collected: 10/28/2018 Status: F Source: [facility] 7:35 PM MEDICAL CENTER REPOSITORY TYPE [...] BASOPHIL 0.04 Performed By: #### CBCDF #### [facility] [address] [place] [address] BNP Collected: 10/28/2018 Status: F Source: [facility] 7:35 PM MEDICAL CENTER REPOSITORY TYPE [...] is performed using different testing methodology at [facility] than at other [facility] hospitals. Direct result comparisons should only be made within the same method. Performed By: #### BNP2 #### [facility] [address] [place] [address] COMPREHENSIVE PANEL Collected: 10/28/2018 Status: F Source: [facility] 7:35 PM MEDICAL CENTER REPOSITORY TYPE [...] for ALT. Performed By: #### CMP #### [facility] [address] [place] [address] TROPONIN I Collected: 10/28/2018 Status: F Source: [facility] 7:35 PM [facility] REPOSITORY TYPE CODE TESTS RESULT OUT [...] is performed using different testing methodology at [facility] than at other [facility]. Direct result comparisons should only be made within the same method. Performed By: #### TROP2 #### [facility] [address] [place] [address] TRIAGE - ED Observed: 10/28/2018 Status: UNK Source: [facility] 7:25 PM [facility] REPOSITORY Quick Triage: The patient and/or [...] immunocompromised related to: N/A Travel outside of [place]: no Allergies: yes Patient has suicidal thoughts: [...] and spouse/significant other Language: Spoken Language Preferred: Sudanese Reading Language Preferred: Sudanese Exhibitions And Collections Manager Requested: no inspector watch parts was requested MDRO: History of MDRO: no [...] Past Medical History Reviewedyes Electronic Signatures: Megan Lopez (NINA) (Signed 28-Oct-2018 20:13) Authored: Triage, Past Medical History Last Updated: 28-Oct-2018 20:13 by Megan Lopez) EMERGENCY DEPARTMENT Observed: 10/28/2018 Status: F Source: [place] SUMMARY 1:13 AM [facility] Medical Records Department [address] [place] [address] Emergency Department Summary 10/27/18 2349 MR#: [id number] Acct: [id number] Name: ATTILA DEL CID Rep #: [id number] : 1970 48 From: Attila Hutchinson DO [...] States he recently followed up with his car trimmer and had his lisinopril up to which [...] 2. Weakness This note was generated with Preggers dictation software. It may contain incorrect words, spelling, and punctuation that were not noted in review of the chart prior to signing ED Disposition - Plan for ED Patient: Disposition: Home or Assisted Living Chief Complaint: Chest Pain Instructions: ED Chest Pain Atypical Unkn Cause Additional Instructions: I would recommend you follow-up with your primary care doctor and your car trimmer What to do if you have Problems For any increased pain, shortness of breath, bleeding, nausea or vomiting, chest pain, or any unexpected problems, contact your Primary Care Provider. Call [facility] ([phone]) or report to the closest Emergency Room. Call 911 if necessary. 10/28/18 0113 <Electronically signed by Attila Hutchinson DO> Date Attila Hutchinson DO Cosigner Signature (If Indicated): Date CC: No Primary Care Physician TROPONIN-I Collected: 10/27/2018 Status: F Source: [place] 10:05 PM [facility] REPOSITORY TYPE CODE TESTS RESULT OUT OF RANGE REFERENCE UNITS LAB L501.4010 <0.045 ng/mL Normal < 0.015 TROPONIN-I Result Comment: TROPONIN-I EXPECTED VALUES <0.045 Negative 0.045 - 0.590 Consistent with Cardiac Damage > OR = 0.600 Critical Value Not every elevated troponin is indicative of MN. These values should be used with clinical judgement in examining the patient's clinical picture for diagnosis. To establish a diagnosis of MN versus myocardial injury, there must be a demonstrated rise and/or fall in the troponin values, in addition to ischemic symptoms, EKG changes, new regional wall motion abnormality, and/or angiographical evidence. PLEASE NOTE: REFERENCE RANGES EDITED 18 Performed By: #### L501.4010 #### [facility] [address] [place], [address] CTA CHEST W/WO Observed: 10/27/2018 Status: F Source: [place] CONTRAST 7:08 PM [facility] REPOSITORY [facility] Imaging Services [address] [place] [address] CTA Chest W/WO Contrast MR#: [id number] Acct: [id number] Name: ATTILA DEL CID Rep #: [id number] : 1970 M 48 From: Wyatt Kwon MD PCP: Care Physician, No Primary Status: REG ER Study: CTA Chest W/WO Contrast Date of Exam: 10/27/18 Exam# [id number] Ordering Dr: Attila Hutchinson DO STUDY: CTA [...] No Primary Care Physician; Attila Hutchinson DO Grill Chef: Signed BASIC METABOLIC Collected: 10/27/2018 Status: F Source: [place] PROFILE (BMP) 4:50 PM [facility] REPOSITORY TYPE CODE TESTS RESULT OUT OF [...] 11 Performed By: #### L500.2500, L501.4010 #### [facility] [address] [place], [place], [address] TROPONIN-I Collected: 10/27/2018 Status: F Source: [place] 4:50 PM [facility] REPOSITORY TYPE CODE TESTS RESULT OUT OF RANGE REFERENCE UNITS LAB L501.4010 <0.045 ng/mL Normal < 0.015 TROPONIN-I Result Comment: TROPONIN-I EXPECTED VALUES <0.045 Negative 0.045 - 0.590 Consistent with Cardiac Damage > OR = 0.600 Critical Value Not every elevated troponin is indicative of MN. These values should be used with clinical judgement in examining the patient's clinical picture for diagnosis. To establish a diagnosis of MN versus myocardial injury, there must be a demonstrated rise and/or fall in the troponin values, in addition to ischemic symptoms, EKG changes, new regional wall motion abnormality, and/or angiographical evidence. PLEASE NOTE: REFERENCE RANGES EDITED 18 Performed By: #### L500.2500, L501.4010 #### [facility] [place], [address] CBC W/DIFF, AUTOMATED Collected: 10/27/2018 Status: F Source: [place] 4:50 PM [facility] REPOSITORY TYPE CODE TESTS RESULT OUT OF [...] Lymph 1.80 Performed By: #### L100.0100 #### [facility] Laboratory [address] [place], [address] BRAIN/HEAD WITHOUT Observed: 10/27/2018 Status: F Source: [place] CONTRAST 4:31 PM [facility] REPOSITORY [facility] Imaging Services [address] [place] [address] Brain/Head without Contrast MR#: [id number] Acct: [id number] Name: ATTILA DEL CID Rep #: [id number] : 1970 M 48 From: Wyatt Kwon MD PCP: Care Physician, No Primary Status: REG ER Study: Brain/Head without Contrast Date of Exam: 10/27/18 Exam# [id number] Ordering Dr: Attila Hutchinson DO STUDY: CT [...] No Primary Care Physician; Attila Hutchinson DO Grill Chef: Signed CHEST PA AND LATERAL Observed: 10/27/2018 Status: F Source: [place] 4:31 PM [facility] REPOSIT[facility] Imaging Services [address] [place] [address] Chest PA and Lateral MR#: [id number] Acct: [id number] Name: ATTILA DEL CID Rep #: [id number] : 1970 M 48 From: Wyatt Kwon MD PCP: Care Physician, No Primary Status: REG ER Study: Chest PA and Lateral Date of Exam: 10/27/18 Exam# [id number] Ordering Dr: Attila Hutchinson DO STUDY: X-RAY [...] No Primary Care Physician; Attila Hutchinson DO Grill Chef: Signed DISCHARGE INSTRUCTION Observed: 10/23/2018 Status: F Source: [place] 9:51 PM [facility] REPOSITORY [facility] Medical Records Department [address] [place] [address] Discharge Instruction 10/23/182148 MR#: [id number] Acct: [id number] Name: ATTILA DEL CID Rep #: [id number] : 1970 48 From: Graham Mendoza DO PCP: OUT OF TOWN DOCTOR Status: REG ER ED Disposition - Plan for ED Patient: Chief Complaint: Fall Instructions: ED Mechanical Fall, ED Contusion Elbow, ED Sprain Wrist Prescriptions: Oxycodone HCl/Acetaminophen [Percocet 5/325] 1 tab PO Q6H PRN PRN 3 Days #12 tab PRN Reason: Pain Referrals: [facility] Doctor,Out of [Primary Care Provider] - 5-7 Days What to do if you have Problems For any increased pain, shortness of breath, bleeding, nausea or vomiting, chest pain, or any unexpected problems, contact your Primary Care Provider. Call [facility] ([phone]) or report to the closest Emergency Room. Call 911 if necessary. 10/23/182150 <Electronically signed by Graham Mendoza DO> Date Graham Mendoza DO Cosigner Signature (If Indicated): Date CC: OUT OF TOWN DOCTOR EMERGENCY DEPARTMENT Observed: 10/23/2018 Status: F Source: [place] SUMMARY 9:49 PM [facility] REPOSITORY [facility] Medical Records Department [address] [place] [address] Emergency Department Summary 10/23/18 2146 MR#: [id number] Acct: [id number] Name: ATTILA DEL CID Rep #: [id number] : 1970 48 From: Graham Mendoza DO [...] wrist sprain] This note was generated with Preggers dictation software. It may contain incorrect words, spelling, and punctuation that were not noted in review of the chart prior to signing ED Disposition - Plan for ED Patient: Chief Complaint: Fall Referrals: [facility] Doctor,Out of [Primary Care Provider] - What to do if you have Problems For any increased pain, shortness of breath, bleeding, nausea or vomiting, chest pain, or any unexpected problems, contact your Primary Care Provider. Call [facility] ([phone]) or report to the closest Emergency Room. Call 911 if necessary. 10/23/18 2149 <Electronically signed by Graham Mendoza DO> Date Graham Mendoza DO Cosigner Signature (If Indicated): Date CC: OUT OF TOWN DOCTOR ELBOW MIN 3 VIEWS Observed: 10/23/2018 Status: F Source: [place] 8:48 PM [facility] REPOSITORY [facility] Imaging Services [address] [place] [address] Elbow min 3 Views MR#: [id number] Acct: [id number] Name: ATTILA DEL CID Rep #: [id number] : 1970 M 48 From: Dennis Loo MD PCP: OUT OF TOWN DOCTOR Status: REG ER Study: Elbow min 3 Views Date of Exam: 10/23/18 Exam# [id number] Ordering Dr: Graham Mendoza DO STUDY: X-RAY [...] OUT OF TOWN DOCTOR; Graham Mendoza DO Grill Chef: Signed WRIST MIN 3 VIEWS Observed: 10/23/2018 Status: F Source: [place] 8:48 PM [facility] REPOSITORY [facility] Imaging Services [address] [place] [address] Wrist min 3 Views MR#: [id number] Acct: [id number] Name: ATTILA DEL CID Rep #: [id number] : 1970 M 48 From: Dennis Loo MD PCP: OUT OF TOWN DOCTOR Status: REG ER Study: Wrist min 3 Views Date of Exam: 10/23/18 Exam# [id number] Ordering Dr: Graham Mendoza DO STUDY: X-RAY [...] OUT OF TOWN DOCTOR; Graham Mendoza DO Grill Chef: Signed XR ELBOW MINIMUM 3 Observed: 10/23/2018 Status: F Source: [facility] VIEWS LEFT 3:27 PM [facility] REPOSITORY ORIGINAL XR ELBOW 4 VIEWS LEFT, [...] SPINE LUMBAR Observed: 10/09/2018 Status: F Source: [place] AP/LAT 3:52 PM [facility] REPOSITORY ORIGINAL XR [...] ABDOMEN/PELVIS W/O Observed: 10/01/2018 Status: F Source: [place] CONTRAST 9:00 PM [facility] ORIGINAL CT ABDOMEN/PELVIS W/O CONTRAST CLINICAL [...] Collected: 10/01/2018 Status: F Source: [facility] 8:14 PM [facility] REPOSITORY TYPE CODE [...] #### CBC, ADIFF, ANEU, BMP, GFR #### [address] [address] .AUTO DIFF Collected: 10/01/2018 Status: F Source: [facility] 8:14 PM [facility] REPOSITORY TYPE CODE TESTS RESULT [...] #### CBC, ADIFF, ANEU, BMP, GFR #### [place] [address] .NEUABS Collected: 10/01/2018 Status: F Source: [facility] 8:14 PM [facility] REPOSITORY TYPE CODE TESTS RESULT OUT OF REFERENCE UNITS RANGE LAB ANEU(LOINC) 2.25-8.10 10 3/mcL Neutrophil, 5.10 Absolute Performed By: #### CBC, ADIFF, ANEU, BMP, GFR #### [place] [address] BMP Collected: 10/01/2018 Status: F Source: [facility] 8:14 PM [facility] REPOSITORY TYPE CODE TESTS RESULT [...] #### CBC, ADIFF, ANEU, BMP, GFR #### [place] [address] .GFR Collected: 10/01/2018 Status: F Source: [facility] 8:14 PM [facility] REPOSITORY TYPE CODE TESTS RESULT OUT OF REFERENCE UNITS RANGE LAB GFRAA(LOINC ml/min/1.73 ) sqm GFR >60 [place] Result Comment: GFR Population mean for , [...] #### CBC, ADIFF, ANEU, BMP, GFR #### [address] [address] UA Collected: 10/01/2018 Status: F Source: [facility] 8:14 PM [facility] REPOSITORY TYPE CODE TESTS RESULT [...] Negative Performed By: #### UA, UAMIC #### [address] [address] UAMIC Collected: 10/01/2018 Status: F Source: [facility] 8:14 PM [facility] REPOSITORY TYPE CODE TESTS RESULT OUT OF RANGE REFERENCE UNITS LAB RBCUA(LOIN 0-2 /hpf C) UA RBC Negative LAB WBCUA(LOIN 0-5 /hpf C) UA WBC 0-2 LAB EPIUA(LOIN 0-20 /hpf C) UA Squam Epithelial Negative LAB CRBCU(LOIN /hpf C) UA Unknown Crenated RBCs 3-5 Performed By: #### UA, UAMIC #### [facility] [address] [place] [address] ED NOTE Observed: 09/24/2018 Status: COMPLETED Source: [place] 11:17 PM CLINIC OTHER CAMPUS REPOSITORY HNO ID: [id number] Author: Audrey AminRn) NINA Schmidt Service: Emergency Medicine Author Type: Registered [...] ED NOTE Observed: 09/24/2018 Status: COMPLETED Source: [place] 10:35 PM [facility] REPOSITORY HNO ID: [id number] Author: Audrey Sloan) NINA Schmidt Service: Emergency Medicine Author Type: Registered Nurse Type: ED Notes Filed: 09/24/2018 10:36 PM Note Text: Pt is resting in bed, no pain improvement, and has family is in room. Dr. Macias is aware. URINALYSIS ROUTINE Collected: 09/24/2018 Status: F Source: [facility] 10:12 PM HEALTH SYSTEM REPOSITORY TYPE CODE [...] NEGATIVE LAB MSPG(LOINC 1.005-1.030 ) Specific 1.015 [place], Ur LAB MPHUR(LOIN 5.0-8.0 C) pH,Urine 7.5 LAB MUROB(LOIN 0.0-1.0 EU/dL C) Urobilinogen,Ur 0.2 LAB MLEUK(LOIN Negative C) Leukocytes NEGATIVE Esterase LAB MRBCU(LOIN 0-3 /hpf C) Abnormal RBC,Urine 4-6 LAB MWBCU(LOIN 0-5 /hpf C) WBC, Urine 0-2 LAB MEPIT(LOIN 0-5 /hpf C) Ep Cells Urine NONE Performed By: #### CONIIN #### [facility] [address] [id number] ED PROV NOTE Observed: 09/24/2018 Status: COMPLETED Source: [place] 10:02 PM CLINIC OTHER CAMPUS REPOSITORY HNO ID: [id number] Author: Renetta Macias MD Service: Emergency Medicine [...] SURGERY HX Right 03/2017 patella replacement - CT ANESTH,KNEE JOINT; NOS 12/2017 Left - REMOVAL [...] Upset - Levofloxacin Rash pt reports to [facility] PT 04-13-2017 - Penicillin G Rash - [...] stable. SIGNATURE: MD Renetta Tate MD 09/24/18 8878 ED NOTE Observed: 09/24/2018 Status: COMPLETED Source: [place] 9:47 PM [facility] OTHER CAMPUS REPOSITORY O ID: [id number] Author: Audrey Sloan) NINA Schmidt Service: Emergency Medicine Author Type: Registered Nurse Type: ED Notes Filed: 09/24/2018 9:48 PM Note Text: Pt c/o right flank pain, N and V. Pt was at ER on 09/22. Pt is still having symptoms of a kidney stone. Pt states he was told to come back if still having further problems. ED PROV NOTE Observed: 09/23/2018 Status: COMPLETED Source: [place] 12:21 AM CLINIC OTHER CAMPUS REPOSITORY [facility] ID: [id number] Author: Shanique Delgadillo MD Service: Emergency Medicine [...] SURGERY HX Right 03/2017 patella replacement - CT ANESTH,KNEE JOINT; NOS 12/2017 Left - REMOVAL [...] Upset - Levofloxacin Rash pt reports to [facility] PT 04-13-2017 - Penicillin G Rash - [...] patient without CT imaging and ordered a npcyx-zu-ylhy ultrasound and KUB. I also ordered labs [...] 1 VIEW Observed: 09/22/2018 Status: F Source: [facility] [id number] 11:02 PM HEALTH SYSTEM REPOSITORY Performed at [facility] APPROVED BY: LESLY PHILLIPS MD EXAMINATION: ABDOMEN 1 VIEW 34275 CLINICAL HISTORY: Flank pain Technique: ABDOMEN 1 VIEW 25903 -- with views on images Comparison: CT [...] ED NOTE Observed: 09/22/2018 Status: COMPLETED Source: [place] 10:56 PM CLINIC OTHER CAMPUS REPOSITORY HNO ID: [id number] Author: Andressa (Rn) NINA Ferro Service: (none) Author Type: Registered Nurse [...] have. HEMOGRAM/DIFF Collected: 09/22/2018 Status: F Source: [facility] 10:40 PM HEALTH SYSTEM REPOSITORY TYPE CODE [...] 2.70 LAB MMONN(LOIN 0.19-0.80 thou/cmm C) Abs. Long 0.74 LAB MEOSN(LOIN 0.00-0.36 thou/cmm C) Abs. Eosin 0.13 LAB MBASN(LOIN 0.00-0.08 thou/cmm C) Abs. Baso 0.04 Performed By: #### NCBCD #### [place] [address] COMPREHENSIVE PANEL Collected: 09/22/2018 Status: F Source: [facility] 10:40 PM HEALTH SYSTEM REPOSITORY TYPE CODE [...] Gap 12 Performed By: #### MP14 #### [facility] [address] [place] [address] LIPASE BLOOD Collected: 09/22/2018 Status: F Source: [facility] 10:40 PM HEALTH SYSTEM REPOSITORY TYPE CODE TESTS RESULT OUT OF REFERENCE UNITS RANGE LAB MLIP(LOINC) 73-393 U/L Lipase Blood 197 Performed By: #### MLIP #### [facility] [address] [place] [address] MDRD EGFR Collected: 09/22/2018 Status: F Source: [facility] 10:37 PM HEALTH SYSTEM REPOSITORY TYPE CODE TESTS RESULT OUT OF RANGE REFERENCE UNITS LAB MGFRF(LOINC >60mL/min/1.73m ) 2 eGFR >60 Result Comment: If the patient is , multiply the result by 1.210. Performed By: #### MGFR #### [facility] [address] [place] [address] URINALYSIS ROUTINE Collected: 09/22/2018 Status: F Source: [facility] 10:03 PM HEALTH SYSTEM REPOSITORY TYPE CODE [...] Urine NEGATIVE LAB MSPG(LOIN 1.005-1.030 C) Specific [place], Ur >=1.030 LAB MPHUR(CHELA 5.0-8.0 NC) pH,Urine [...] manually reviewed. Performed By: #### MALOU #### [facility] [address] [place] [address] ED NOTE Observed: 09/22/2018 Status: COMPLETED Source: [place] 10:02 PM [facility] OTHER CAMPUS REPOSITORY HNO ID: [id number] Author: Cally AminRn) NINA Hernandez Service: (none) Author Type: Registered Nurse Type: ED Notes Filed: 09/22/2018 10:02 PM Note Text: Bed: [address] [place] [address] Expected date: 09/22/18 Expected time: 11:52 AM Means of arrival: Comments: ED NOTE Observed: 09/22/2018 Status: COMPLETED Source: [place] 10:00 PM [facility] REPOSITORY HNO ID: [id number] Author: Estee AminRn) NINA Beltran Service: Emergency Medicine Author Type: Registered Nurse Type: ED Notes Filed: 09/22/2018 10:01 PM Note Text: C/o right flank pain 730 pm. Taking tylenol PRN with minimal relief for known kidney stones. Mild hematuria noted earlier today. Cannot get in to see urologist until October. XR ABDOMEN 1V SUPINE Observed: 09/18/2018 Status: F Source: [place] 5:50 PM [facility] REPOSITORY * * *Final Report* * * [...] abnormalities are seen IMPRESSION: No acute pathology. Grill Chef: NEAL Transcribe Date/Time: Sep 21 2018 9:08A Dictated by : AMARILIS GREENE DO This examination was interpreted and the report reviewed and electronically signed by: AMARILIS GREENE DO on Sep 21 2018 9:09AM EST [id number] PROGRESS Observed: 09/18/2018 Status: COMPLETED Source: [place] 5:43 PM [facility] REPOSITORY HNO ID: [id number] Author: Joaquina Ny Service: (none) Author Type: [...] ED NOTE Observed: 09/17/2018 Status: COMPLETED Source: [place] 12:53 AM [facility] REPOSITORY HNO ID: [id number] Author: Maria Guadalupe (Rn) NINA Almazan Service: Nursing Author Type: Registered Nurse Type: ED Notes Filed: 09/17/2018 12:53 AM Note Text: Discharge instructions reviewed with pt and spouse. All questions answered. Pt leaving ambulatory with zero prescriptions URINALYSIS Collected: 09/16/2018 Status: F Source: [place] 11:15 PM [facility] REPOSITORY TYPE CODE TESTS RESULT OUT OF REFERENCE UNITS RANGE LAB UCOL Yellow Color Yellow LAB [facility] Clear Clarity Clear LAB UGLUC Negative mg/dL Glucose, Urine Negative LAB UBIL Negative Bilirubin, Urine Negative LAB UKET Negative Ketones, Urine Negative LAB USPG 1.001-1.029 Specific [place], Ur 1.020 LAB UHGB Negative Hemoglobin/Blood, Negative Ur LAB UPH 5.0-8.0 pH 7.0 LAB UPROT Negative mg/dL Protein, Urine Negative LAB UUROB 0.2-1.0 Urobilinogen 0.2 LAB UNITR Negative Nitrites Negative LAB ULKEST Negative Leukest Negative Performed By: #### UA #### [facility] [address] [facility] [phone] HIGH SENS TROPONIN T Collected: 09/16/2018 Status: F Source: [place] 11:15 PM [facility] REPOSITORY TYPE CODE TESTS RESULT OUT OF [...] day MACE. Performed By: #### HSTNT #### [facility] [address] [phone] XR CHEST 2V FRONTAL/LAT Observed: 09/16/2018 Status: F Source: [place] 11:05 PM [facility]AMP[facility] REPOSITORY * * *Final Report* [...] abnormality seen. IMPRESSION: No acute radiographic abnormality. Grill Chef: NEAL Transcribe Date/Time: Sep 16 2018 11:05P Dictated by : LESLY PHILLIPS MD This examination was interpreted and the report reviewed and electronically signed by: LESLY PHILLIPS MD on Sep 16 2018 11:06PM EST [id number] ED NOTE Observed: 09/16/2018 Status: COMPLETED Source: [place] 10:59 PM [facility]AMP[facility] REPOSITORY HNO ID: [id number] Author: Aurea (Rn) Deuce, RN Service: (none) Author Type: Registered Nurse Type: ED Notes Filed: 09/16/2018 10:59 PM Note Text: Patient transported to [facility] with Nurse. ED NOTE Observed: 09/16/2018 Status: COMPLETED Source: [place] 10:59 PM [facility]AMP[facility] REPOSITORY HNO ID: [id number] Author: Aurea (Rn) Deuce, RN Service: (none) Author Type: Registered Nurse Type: ED Notes Filed: 09/16/2018 10:59 PM Note Text: CBC AND DIFFERENTIAL Collected: 09/16/2018 Status: F Source: [place] 10:00 PM [facility]AMP[facility] REPOSITORY TYPE CODE TESTS [...] k/uL Abs Lymph 3.02 LAB AMONO % Long% 11.2 LAB AAMONO <0.87 k/uL Abs Long High 1.03 LAB AEOS % Eosin% 0.8 LAB AAEOS <0.46 k/uL Abs Eosin 0.07 LAB ABASO % Baso% 0.4 LAB AABASO <0.11 k/uL Abs Baso 0.04 Performed By: #### CBCDIF, CK, CMP #### [facility] Laboratory [address] [place] [address] CK Collected: 09/16/2018 Status: F Source: [facility] 10:00 PM OTHER CAMPUS REPOSITORY TYPE CODE TESTS RESULT OUT OF RANGE REFERENCE UNITS LAB CK 51-298 U/L Low CK 32 Performed By: #### CBCDIF, CK, CMP #### [facility] [address] [place] [address] COMP METABOLIC PANEL Collected: 09/16/2018 Status: F Source: [place] 10:00 PM [facility] REPOSITORY TYPE CODE TESTS [...] 74-99 mg/dL Glucose 76 Result Comment: The [place] Diabetes Association (ADA) provides guidance for cutoff [...] Standards of Medical Care in Diabetes 2016, [place] Diabetes Association. Diabetes Care. 2016.39(Suppl 1). LAB [...] has been calibrated to be traceable to IDKoudai. An eGFR <60 mL/min/1.73m2 for >3 months is consistent with chronic kidney disease. Refer to KDOQI guidelines for clinical interpretation. In patients with unstable renal function, e.g. those with acute kidney injury, the eGFR may not accurately reflect actual GFR. Performed By: #### CBCDIF, CK, CMP #### [facility] [address] [phone] HIGH SENS TROPONIN T Collected: 09/16/2018 Status: F Source: [place] 10:00 PM [facility] REPOSITORY TYPE CODE TESTS [...] day MACE. Performed By: #### HSTNT #### [facility] [address] [phone] ED PROV NOTE Observed: 09/16/2018 Status: COMPLETED Source: [place] 9:51 PM [facility] REPOSITORY HNO ID: [id number] Author: Regina Francisco MD Service: (none) Author [...] SURGERY HX Right 03/2017 patella replacement - CT ANESTH,KNEE JOINT; NOS 12/2017 Left - REMOVAL [...] Upset - Levofloxacin Rash pt reports to [facility] PT 04-13-2017 - Penicillin G Rash - [...] Abs Lymph 3.02 1.00 - 4.00 k/uL Long% 11.2 % Abs Long 1.03 (H) <0.87 k/uL Eosin% 0.8 % Abs Eosin 0.07 <0.46 k/uL Baso% 0.4 % Abs Baso 0.04 <0.11 k/uL URINALYSIS Result Value Ref Range Color Yellow Yellow Appearance (U) Clear Clear Glucose, Urine Negative Negative mg/dL Bilirubin, Urine Negative Negative Ketones, Urine Negative Negative Specific [place], Ur 1.020 1.001 - 1.029 Hemoglobin/Blood,Ur Negative Negative pH, Urine 7.0 5.0 - 8.0 Protein, Urine Negative Negative mg/dL Urobilinogen 0.2 0.2 - 1.0 Nitrites Negative Negative Leukest Negative Negative HIGH SENSITIVITY TROPONIN T Result Value Ref Range NARGIS High Sensitivity <6 <12 ng/L XR CHEST 2V FRONTAL/LAT Final Result IMPRESSION: No acute radiographic abnormality. Grill Chef: NEAL Transcribe Date/Time: Sep 16 2018 11:05P Dictated by : LESLY PHILLIPS MD This examination was interpreted and the report reviewed and electronically signed by: LESLY PHILLIPS MD on Sep 16 2018 11:06PM EST Procedures ED Course / Clinical Impression Clinical Impressions as of Sep 17 15 Right flank pain Other chest pain MDM [...] 0035 EKG Observed: 09/16/2018 Status: F Source: [place] 9:50 PM CLINIC OTHER CAMPUS REPOSITORY NAME : ATTILA DEL CID PID : [id number] : 1970 Gender : Male Race : ORD : [id number] Procedure Date : Sep 16 2018 21:50:24 Edit Date : Sep 25 2018 13:39:38 Diagnosis:NORMAL SINUS RHYTHM NORMAL ECG normal - Dr. Travis Dixon [id number] Confirmed by Jona DIXON, CARLOS Martinez ([id number]), dictionary editor LESLY ROCKWELL ([id number]) on 09/25/2018 1:39:36 PM Ventricular Rate : 78 BPM Atrial Rate : 78 BPM P-R Interval : 150 ms QRS Duration : 82 ms Q-T Interval : 394 ms QTC Calculation(Bezet) : 449 ms P [place] : 27 degrees R [place] : 13 degrees T [place] : 29 degrees Test Reason : Chest Pain Location : 1 : ER 1 Overread By : Jona DIXON MATTHEW D. Edited By : LESLY ROCKWELL Referred By : , Acquired by : [place] GALLO NOTE Observed: 09/16/2018 Status: COMPLETED Source: [place] 9:33 PM CLINIC OTHER CAMPUS REPOSITORY HNO ID: [id number] Author: Maria Guadalupe (Rn) NINA Almazan Service: Nursing Author Type: Registered Nurse Type: ED Notes Filed: 09/16/2018 9:34 PM Note Text: Pt presents to ED with c/o flank pain on and off for a week. Also complains of chest pain. History of kidney stones. States it feels like another one XR CHEST 2 VIEWS Observed: 09/01/2018 Status: F Source: [place] 5:52 PM [facility] REPOSITORY ORIGINAL XR CHEST 2 VIEWS CLINICAL [...] Brody Long MD Preliminary Report By: Varsha Han MD Electronically Signed By: Brody Long MD Dictated Date: 09/01/2018 6:04:23 PM Prelim Date: 09/01/2018 6:06:40 PM Sign Date: 09/01/2018 6:13:16 PM EMERGENCY DEPARTMENT Observed: 08/31/2018 Status: F Source: [place] SUMMARY 3:48 PM [facility] REPOSITORY [facility] Medical Records Department [address] [place] [address] Emergency Department Summary 08/31/18 1336 MR#: [id number] Acct: [id number] Name: ATTILA DEL CID Rep #: [id number] : 1970 48 From: Keyon Grace MD [...] his nose. He has no history of [place] PE or DVT his other health conditions have been very stable he spoke with the nurse practitioner ironer or presser was instructed to come to the hospital [...] harsh cough This note was generated with [employer]mbera [employer]ation software. It may contain incorrect words, spelling, [...] problems, contact your Primary Care Provider. Call [facility] ([phone]) or report to the closest Emergency Room. Call 911 if necessary. 08/31/18 1548 <Electronically signed by Keyon Grace MD> Date Keyon Grace MD Cosigner Signature (If Indicated): Date CC: OUT OF TOWN DOCTOR DISCHARGE INSTRUCTION Observed: 08/31/2018 Status: F Source: [place] 1:42 PM [facility] REPOSITORY [facility] Medical Records Department [address] [facility] [place] [address] Discharge Instruction 08/31/18 1340 MR#: [id number] Acct: [id number] Name: ATTILA DEL CID Rep #: [id number] : 1970 48 From: Keyon Grace MD PCP: Nyla Bearden MD Status: PRE ER ED Disposition - Plan for ED Patient: Chief Complaint: Shortness of Breath Instructions: ED Upper Resp Infec No Abx Tx Prescriptions: Fluticasone 0.05% [Flonase Nasal [place]] 1 spray NASAL DAILY #1 nasal.sry Guaifenesin [Mucinex] 1,200 mg PO BID #14 tbmp.12hr Referrals: Nyla Bearden MD [Primary Care Provider] - What to do if you have Problems For any increased pain, shortness of breath, bleeding, nausea or vomiting, chest pain, or any unexpected problems, contact your Primary Care Provider. Call [facility] ([phone]) or report to the closest Emergency Room. Call 911 if necessary. 08/31/18 1342 <Electronically signed by Keyon Grace MD> Date Keyon Grace MD Cosigner Signature (If Indicated): Date CC: Nyla Bearden MD PROGRESS Observed: 08/28/2018 Status: COMPLETED Source: [place] 6:16 PM [facility] REPOSITORY HNO ID: [id number] Author: Jude Allen (Pa) Service: (none) Author Type: Physician Paving And Surfacing Labourer Type: Progress Notes Filed: 08/28/2018 6:20 PM Note Text: Triage note: Patient was c/o midsternal chest pressure, SOB with exertion, and new onset dizziness (different from his baseline vertigo) that started last night. Pt was immediately sent to ED for further evaluation. CNOV Observed: 08/28/2018 Status: COMPLETED Source: [place] 6:00 PM [facility] REPOSITORY Office Visit ([facility]) KOFI DEL CIDMELCHOR Abreu ([id number]) 1970 M Date Time Provider Department 08/28/18 6:[address] [facility] W[facility] During your visit today, we recorded [...] 2 - Rash Comments: pt reports to [facility] PT --2016 PENICILLIN G 12/30/2013 2 - Rash RELPAX (ELETRIPTAN HBR) 07/17/2016 11 - Vomiting Comments: Nausea TOPAMAX (TOPIRAMATE) 07/17/2016 11 - Vomiting VICODIN (HYDROCODONE-ACETAMINOPHE*12/30/2013 11 - Vomiting WELLBUTRIN (BUPROPION HCL) 07/17/2016 11 - Vomiting Comments: Nausea Date Reviewed: 08/10/2018 Reviewed by: Fiona (Rn) NINA Choe - Fully Assessed Reason for Visit: [...] 08/28/18 HOSP Observed: 08/26/2018 Status: COMPLETED Source: [place] 12:00 AM [facility] REPOSITORY Patient Update (ME) ATTILA DEL CID ([id number]) 1970 M Date Time Provider Department 08/26/18 CARLOS DIXON During your visit today, we recorded the following information about you: Carlos Dixon MD, MD 08/26/2018 3:33 PM Signed MULTIDISCIPLINARY [...] 2 - Rash Comments: pt reports to [facility] PT 6--2017 PENICILLIN G 12/30/2013 2 - Rash RELPAX (ELETRIPTAN HBR) 07/17/2016 11 - Vomiting Comments: Nausea TOPAMAX (TOPIRAMATE) 07/17/2016 11 - Vomiting VICODIN (HYDROCODONE-ACETAMINOPHE*12/30/2013 11 - Vomiting WELLBUTRIN (BUPROPION HCL) 07/17/2016 11 - Vomiting Comments: Nausea Date Reviewed: 08/10/2018 Reviewed by: Fiona Sloan) NINA Choe - Fully Assessed Prescriptions as of [...] Collected: 08/22/2018 Status: F Source: [facility] 3:19 PM FOUNDATION REPOSITORY TYPE CODE [...] Cholesterol 102 Performed By: #### LIPID #### [place] [address] DISCHARGE SUMMARY Observed: 08/17/2018 Status: F Source: [facility] [employer] [facility] 12:23 PM SYSTEM REPOSITORY Hospitalist Discharge Summary [...] above mentioned past medical history presented to [place] ED with complaints of bilateral flank pain. [...] Medications: Attila Del Cid Home Medication Instructions SOURAV:[id number] Printed on:08/22/18 0219 Medication Information amLODIPine (NORVASC) 5 MG tablet [...] mouth daily Recommended Follow-up: Wyatt Street MD [address] [place] [id number] Schedule an appointment as soon as possible for a visit call for followup appt in one week Complexity of Follow up: [x] Moderate Complexity: follow up within 7-14 calendar days (39404) [x] Severe Complexity: follow up within 7 calendar days (41022) Follow up Testing, Pending results or Referrals [...] W/ AUTODIFF Collected: 08/17/2018 Status: F Source: [facility] 5:30 AM SYSTEM REPOSITORY TYPE CODE TESTS [...] Baso Cnt Normal 0.0 Performed By: #### MORIAH SIMS #### [employer] [address] [place] [address] BASIC METABOLIC PANEL Collected: 08/17/2018 Status: F Source: [facility] 5:30 AM SYSTEM REPOSITORY TYPE CODE TESTS [...] mg/dL Normal Calcium 9.3 Performed By: #### KRISHNA SIMS3M #### [employer] [address] [facility] [place] [address] CTA CHEST W/ + W/O Observed: 08/16/2018 Status: F Source: [facility] CONTRAST 4:40 PM SYSTEM REPOSITORY Patient Name: ATTILA DEL CID CT Exam Date/Time 08/16/2018 15:24:56 EDT Exam CTA Chest w/ + w/o Contrast Ordering Physician MD RAKESH, CARLO Oneal Accession Number [id number] CPT4 Codes 27466 (), Q9967 (CT ISOVUE 370MG/[id number]) Reason For Exam Pain between the shoulder blades, h/o aortic aneurysm Report CLINICAL INFORMATION: Progressive chest and back pain. Evaluate for thoracic aortic aneurysm. After 75 mL Isovue IV contrast, 1 mm axial cuts through the chest are obtained. 3D reconstructions are performed by ky and reviewed simultaneously on the separate [employer] workstation. Sagittal and coronal reconstructions are also [...] 4:44 HEMOGRAM Collected: 08/16/2018 Status: F Source: [facility] 3:38 AM SYSTEM REPOSITORY TYPE CODE TESTS [...] PT, APTT, BMP3M, MG3, LIPD2, TROPN #### [employer] [address] [place] [address] D-DIMER, INNOVANCE Collected: 08/16/2018 Status: F Source: [facility] 3:38 AM SYSTEM REPOSITORY TYPE CODE TESTS [...] PT, APTT, BMP3M, MG3, LIPD2, TROPN #### [employer] [address] [place] [address] PROTHROMBIN TIME Collected: 08/16/2018 Status: F Source: [facility] 3:38 AM SYSTEM REPOSITORY TYPE CODE TESTS [...] PT, APTT, BMP3M, MG3, LIPD2, TROPN #### [employer] [address] [facility] [address] APTT Collected: 08/16/2018 Status: F Source: [facility] 3:38 AM SYSTEM REPOSITORY TYPE CODE TESTS RESULT OUT OF RANGE REFERENCE UNITS LAB PTTA 20.0-30.5 s Normal APTT 23.5 Result Comment: NOTE: The therapeutic time for Heparin anticoagulation, based on Xa activity inhibition, is an APTT of 46-80 seconds. Performed By: #### HEMOG, DDI2, PT, APTT, BMP3M, MG3, LIPD2, TROPN #### [employer] [address] [place] [address] BASIC METABOLIC PANEL Collected: 08/16/2018 Status: F Source: [facility] 3:38 AM SYSTEM REPOSITORY TYPE CODE TESTS [...] PT, APTT, BMP3M, MG3, LIPD2, TROPN #### [employer] [address] [place] [address] MAGNESIUM Collected: 08/16/2018 Status: F Source: [facility] 3:38 AM SYSTEM REPOSITORY TYPE CODE TESTS RESULT OUT OF RANGE REFERENCE UNITS LAB MG3 1.6-2.3 mg/dL Normal Magnesium 2.1 Performed By: #### HEMOG, DDI2, PT, APTT, BMP3M, MG3, LIPD2, TROPN #### [employer] [address] [place] [address] LIPID PANEL Collected: 08/16/2018 Status: F Source: [facility] 3:38 AM SYSTEM REPOSITORY TYPE CODE TESTS [...] PT, APTT, BMP3M, MG3, LIPD2, TROPN #### [employer] [address] [place] [address] TROPONIN I Collected: 08/16/2018 Status: F Source: [facility] 3:38 AM SYSTEM REPOSITORY TYPE CODE TESTS RESULT OUT OF RANGE REFERENCE UNITS LAB TROP4 0.000-0.034 ng/mL Normal Troponin I < 0.012 Result Comment: 0.046 - 0.400 = Indeterminate > 0.400 = Consider Myocardial Injury Performed By: #### HEMOG, DDI2, PT, APTT, BMP3M, MG3, LIPD2, TROPN #### [employer] [address] [place] [address] TROPONIN I Collected: 08/16/2018 Status: F Source: [facility] 3:38 AM SYSTEM REPOSITORY TYPE CODE TESTS RESULT OUT OF RANGE REFERENCE UNITS LAB TROP4 0.000-0.034 ng/mL Normal Troponin I < 0.012 Result Comment: 0.046 - 0.400 = Indeterminate > 0.400 = Consider Myocardial Injury Performed By: #### TROPN #### [employer] [address] [place] [address] TROPONIN I Collected: 08/16/2018 Status: F Source: [facility] 1:22 AM SYSTEM REPOSITORY TYPE CODE TESTS RESULT OUT OF RANGE REFERENCE UNITS LAB TROP4 0.000-0.034 ng/mL Normal Troponin I < 0.012 Result Comment: 0.046 - 0.400 = Indeterminate > 0.400 = Consider Myocardial Injury Performed By: #### TROPN #### [facility] [address] [place] [place] [address] CT ABDOMEN/PELVIS W/O Observed: 08/15/2018 Status: F Source: [facility] CONTRAST 9:54 PM SYSTEM REPOSITORY Patient Name: ATTILA DEL CID CT Exam Date/Time 08/15/2018 21:46:[address] Abdomen/Pelvis (No PO, No IV) Ordering Physician MD HAN DEEPIKA Accession Number [id number] CPT4 Codes 89397 (CT Abdomen/Pelvis (No PO, No IV)) Reason [...] CHEST PA/LAT Observed: 08/15/2018 Status: F Source: [facility] 9:28 PM SYSTEM REPOSITORY Patient Name: ATTILA DEL CID Diagnostic Radiology Exam Date/Time 08/15/2018 21:22:30 EDT Exam CR Chest PA/LAT Ordering Physician MD HAN DEEPIKA Accession Number [id number] CPT4 Codes 03763 () Reason For Exam b/l posterior rib [...] W/ AUTODIFF Collected: 08/15/2018 Status: F Source: [facility] 9:25 PM SYSTEM REPOSITORY TYPE CODE TESTS [...] #### HEMDF, BMP3, LFT3, LIPA4, TROPN #### [employer] [address] [place] [address] BASIC METABOLIC PANEL Collected: 08/15/2018 Status: F Source: [facility] 9:25 PM SYSTEM REPOSITORY TYPE CODE TESTS [...] #### HEMDF, BMP3, LFT3, LIPA4, TROPN #### [employer] [address] [place] [address] HEPATIC FUNCTION Collected: 08/15/2018 Status: F Source: [facility] 9:25 PM SYSTEM REPOSITORY TYPE CODE TESTS [...] #### HEMDF, BMP3, LFT3, LIPA4, TROPN #### [facility] [address] [facility] [place] [address] LIPASE Collected: 08/15/2018 Status: F Source: [facility] 9:25 PM SYSTEM REPOSITORY TYPE CODE TESTS RESULT OUT OF RANGE REFERENCE UNITS LAB LIPA4 23-300 U/L Normal Lipase 87 Performed By: #### HEMDF, BMP3, LFT3, LIPA4, TROPN #### [facility] [address] [facility] [place] [address] TROPONIN I Collected: 08/15/2018 Status: F Source: [facility] 9:25 PM SYSTEM REPOSITORY TYPE CODE TESTS RESULT OUT OF RANGE REFERENCE UNITS LAB TROP4 0.000-0.034 ng/mL Normal Troponin I < 0.012 Result Comment: 0.046 - 0.400 = Indeterminate > 0.400 = Consider Myocardial Injury Performed By: #### HEMDF, BMP3, LFT3, LIPA4, TROPN #### [facility] [address] [place] [address] URINALYSIS,MACRO Collected: 08/15/2018 Status: F Source: [facility] 9:25 PM SYSTEM REPOSITORY TYPE CODE TESTS RESULT OUT OF REFERENCE UNITS RANGE LAB APPUR Clear NA Appearance CLEAR LAB COLUR Lt. Yellow NA Color YELLOW LAB USG 1.005-1.030 NA Specific Normal [place],Urine 1.010 LAB UPH 5.0-8.0 NA pH,Urine Normal 7.0 LAB ULUK Negative NA Leukocytes NEGATIVE LAB UNIT Negative NA Nitrites NEGATIVE LAB UPRO Negative mg/dL Total Protein,Urine NEGATIVE LAB UGLU Negative mg/dL Glucose,Urine NEGATIVE LAB UKET Negative mg/dL Ketone,Urine TRACE LAB UURO 0-1 mg/dL Urobilinogen 0.2 LAB UBIL Negative NA Bilirubin,Ur NEGATIVE LAB UBLD Negative {RBC}/uL Occult Blood,Ur NEGATIVE Performed By: #### UAMAC #### [facility] [address] [facility] [place] [address] DRUGS OF ABUSE Collected: 08/15/2018 Status: F Source: [facility] 9:25 PM SYSTEM REPOSITORY TYPE CODE TESTS [...] separate order. Performed By: #### DRGA4 #### [facility] [address] [place] [address] XR CHEST 1 VIEW Observed: 08/15/2018 Status: F Source: [facility] 4:49 PM FOUNDATION REPOSITORY ORIGINAL XR CHEST 1 VIEW CLINICAL [...] Collected: 08/15/2018 Status: F Source: [facility] [address] [place] [address] REPOSITORY TYPE CODE TESTS RESULT OUT OF [...] fL Low MPV 7.2 Performed By: #### CBC, ADIFF, ANEU #### [address] [address] #### BMP, TROP, GFR #### [address] [address] .AUTO DIFF Collected: 08/15/2018 Status: F Source: [facility] [address] [place] [address] REPOSITORY TYPE CODE TESTS RESULT OUT OF [...] Performed By: #### CBC, ADIFF, ANEU #### [place] [address] [place], [place] [address] #### BMP, TROP, GFR #### [address] [address] .NEUABS Collected: 08/15/2018 Status: F Source: [facility] 4:[address] [facility] [place] REPOSITORY TYPE CODE TESTS RESULT OUT OF REFERENCE UNITS RANGE LAB ANEU(LOINC) 2.85-6.16 10 3/mcL Neutrophil, 5.40 Absolute Performed By: #### CBC, ADIFF, ANEU #### [address] [address] #### BMP, TROP, GFR #### [address] [address] BMP Collected: 08/15/2018 Status: F Source: [facility] 4:[address] [facility] [place] REPOSITORY [...] Performed By: #### CBC, ADIFF, ANEU #### [place] [address] [place], [place] [address] #### BMP, TROP, GFR #### [address] [address] TROP Collected: 08/15/2018 Status: F Source: [facility] 4:[address] [facility] [place] REPOSITORY [...] ECG changes may help assess possibility of MN. *Other non-acute coronary syndrome conditions such as CHF, myocarditis, pulmonary emboli, sepsis and cardiac surgery could result in myocardial damage and increased troponin levels. Performed By: #### CBC, ADIFF, ANEU #### [address] [address] #### BMP, TROP, GFR #### [address] [address] .GFR Collected: 08/15/2018 Status: F Source: [facility] 4:32 [facility] [place] REPOSITORY TYPE CODE TESTS RESULT OUT OF REFERENCE UNITS RANGE LAB GFRAA(LOINC ml/min/1.73 ) sqm GFR 118 [place] Result Comment: GFR Population mean for , [...] Performed By: #### CBC, ADIFF, ANEU #### [facility] [address] [place], [place] [address] #### BMP, TROP, GFR #### [facility] [address] [place] [address] ED NOTE Observed: 08/11/2018 Status: COMPLETED Source: [place] 9:50 PM CLINIC OTHER CAMPUS REPOSITORY HNO ID: [id number] Author: Jonah (Rn) Julissa, RN Service: (none) Author Type: Registered Nurse Type: ED Notes Filed: 08/11/2018 10:03 PM Note Text: Discharge inst reviewed with pt, discussed new pain prescription, discussed follow up with pcp and pain management, pt verbalized understanding via teach back method, pt stable upon departure from ED HIGH SENS TROPONIN T Collected: 08/11/2018 Status: F Source: [place] 7:50 PM CLINIC OTHER CAMPUS REPOSITORY TYPE [...] day MACE. Performed By: #### HSTNT #### [facility] [address] [facility] [phone] ED NOTE Observed: 08/11/2018 Status: COMPLETED Source: [place] 7:46 PM CLINIC OTHER CAMPUS REPOSITORY HNO ID: [id number] Author: Jonah AminRn) Julissa, RN Service: (none) Author Type: Registered Nurse Type: ED Notes Filed: 08/11/2018 7:56 PM Note Text: Pt returned from CT scan complaining that his chest pain has returned at that it is 04/29. notified PROGRESS Observed: 08/11/2018 Status: COMPLETED Source: [place] 7:39 PM [facility] REPOSITORY HNO ID: [id number] Author: JOHANA Ramos (Ct) Service: (none) Author Type: Clinical Affirmative Action Specialist Type: Progress Notes Filed: 08/11/2018 7:39 PM [...] W IVCON Observed: 08/11/2018 Status: F Source: [place] 7:38 PM CLINIC OTHER CAMPUS REPOSITORY * * *Final Report* * * DATE OF EXAM: Aug 11 2018 7:38PM [facility] 0466 - CTA ABD/PELV [...] or dissection. No acute findings are identified. Grill Chef: PSCB Transcribe Date/Time: Aug 11 2018 8:46P Dictated by : SHAMA COLE MD This examination was interpreted and the report reviewed and electronically signed by: SHAMA COLE MD on Aug 11 2018 9:16PM EST [id number] CTA CHEST (GATED) Observed: 08/11/2018 Status: F Source: [place] WO/W IVCON 7:38 PM CLINIC OTHER CAMPUS REPOSITORY * * *Final Report* * * DATE OF EXAM: Aug 11 2018 7:38PM [facility] 0126 - CTA CHEST [...] or dissection. No acute findings are identified. Grill Chef: NEAL Transcribe Date/Time: Aug 11 2018 8:46P Dictated by : SHAMA COLE MD This examination was interpreted and the report reviewed and electronically signed by: SHAMA COLE MD on Aug 11 2018 9:16PM EST [id number] ED NOTE Observed: 08/11/2018 Status: COMPLETED Source: [place] 6:30 PM [facility] REPOSITORY HNO ID: [id number] Author: Dominga AminRn) NINA Saldivar Service: (none) Author Type: Registered Nurse Type: ED Notes Filed: 08/11/2018 6:31 PM Note Text: Plan of care -Monitor Patient's Vital Signs for changes in condition -Monitor patient for changes in pain -Maintain patient safety and privacy -Provide comfort measures -Call light in place Siderails up, bed in locked and low position ED NOTE Observed: 08/11/2018 Status: COMPLETED Source: [place] 6:30 PM CLINIC OTHER CAMPUS REPOSITORY HNO ID: [id number] Author: Dominga (Rn) NINA Saldivar Service: (none) Author Type: Registered Nurse Type: ED Notes Filed: 08/11/2018 6:30 PM Note Text: Labs were drawn and sent. CBC AND DIFFERENTIAL Collected: 08/11/2018 Status: F Source: [place] 6:30 PM [facility] OTHER CAMPUS REPOSITORY TYPE CODE TESTS [...] k/uL Abs Lymph 1.60 LAB AMONO % Long% 10.4 LAB AAMONO <0.87 k/uL Abs Long 0.70 LAB AEOS % Eosin% 2.2 LAB AAEOS <0.46 k/uL Abs Eosin 0.15 LAB ABASO % Baso% 0.4 LAB AABASO <0.11 k/uL Abs Baso 0.03 Performed By: #### CBCDIF, CMP #### [facility] [address] [facility] [phone] COMP METABOLIC PANEL Collected: 08/11/2018 Status: F Source: [place] 6:30 PM [facility] OTHER CAMPUS REPOSITORY TYPE CODE TESTS RESULT OUT OF REFERENCE UNITS RANGE LAB TP 6.3-8.0 g/dL Protein, Total 6.7 LAB ALB 3.9-4.9 g/dL Albumin 4.1 LAB CA 8.5-10.2 mg/dL Calcium, Total 9.4 LAB TBIL 0.2-1.3 mg/dL Bilirubin, Total 0.2 LAB ALKP 38-113 U/L Alkaline Phosphatase 94 LAB AST 14-40 U/L AST 32 LAB GLU 74-99 mg/dL Glucose 94 Result Comment: The [place] Diabetes Association (ADA) provides guidance for cutoff [...] Standards of Medical Care in Diabetes 2016, [place] Diabetes Association. Diabetes Care. 2016.39(Suppl 1). LAB [...] GFR. Performed By: #### CBCDIF, CMP #### [facility] [address] [facility] [phone] CK, TOTAL AND CKMB Collected: 08/11/2018 Status: F Source: [place] 6:30 PM CLINIC OTHER CAMPUS REPOSITORY TYPE CODE TESTS RESULT OUT OF REFERENCE UNITS RANGE LAB CK 51-298 U/L 88 CK LAB MB <7.7 ng/mL MB 1.3 LAB CKMBRI 0.0-4.0 % CK CK MB MB % not % reported with CK <100 U/L. Performed By: #### CKCKMB #### [facility] [address] [facility] [phone] HIGH SENS TROPONIN T Collected: 08/11/2018 Status: F Source: [place] 6:30 PM [facility] [place] REPOSITORY TYPE CODE TESTS RESULT OUT OF [...] day MACE. Performed By: #### HSTNT #### [facility] [address] [facility] [phone] XR CHEST 2V FRONTAL/LAT Observed: 08/11/2018 Status: F Source: [place] 6:19 PM [facility] REPOSITORY * * *Final Report* * * [...] Other: . IMPRESSION: No acute radiographic abnormality. Grill Chef: PSCB Transcribe Date/Time: Aug 11 2018 6:27P Dictated by : RADHA MITCHELL MD This examination was interpreted and the report reviewed and electronically signed by: RADHA MITCHELL MD on Aug 11 2018 6:28PM EST [id number] ED NOTE Observed: 08/11/2018 Status: COMPLETED Source: [place] 6:16 PM [facility] REPOSITORY HNO ID: [id number] Author: Berenice AminRn) NINA Pederson Service: (none) Author Type: Registered Nurse Type: ED Notes Filed: 08/11/2018 6:17 PM Note Text: Pt to radiology per the wheelchair He will then be housed in er room 3 Cailin WOOD was made aware of the pt re roomed pts is bedside URINALYSIS Collected: 08/11/2018 Status: F Source: [place] 6:13 PM [facility] REPOSITORY TYPE CODE TESTS RESULT OUT OF RANGE REFERENCE UNITS LAB UCOL Yellow Color Yellow LAB [facility] Clear Clarity Clear LAB UGLUC Negative mg/dL Glucose, Urine Negative LAB UBIL Negative Bilirubin, Urine Negative LAB UKET Negative Ketones, Abnormal Urine Trace Alert LAB USPG 1.001-1.029 High Specific [place], Ur >1.029 LAB UHGB Negative Hemoglobin/Blood, Negative Ur LAB UPH 5.0-8.0 pH 6.0 LAB UPROT Negative mg/dL Protein, Urine Negative LAB UUROB 0.2-1.0 Urobilinogen 0.2 LAB UNITR Negative Nitrites Negative LAB ULKEST Negative Leukest Negative Performed By: #### UA #### [facility] [address] [facility] [phone] ED PROV NOTE Observed: 08/11/2018 Status: COMPLETED Source: [place] 6:12 PM [facility] REPOSITORY HNO ID: [id number] Author: Carolina Bender (Pa) Service: (none) Author Type: Physician Paving And Surfacing Labourer Type: ED Provider Notes Filed: 08/11/2018 11:35 [...] SURGERY HX Right 03/2017 patella replacement - CT ANESTH,KNEE JOINT; NOS 12/2017 Left - REMOVAL [...] Upset - Levofloxacin Rash pt reports to [facility] PT 04-13-2017 - Penicillin G Rash - [...] 2140 Others' Documentation Mon Aug 11, 2018 184 UA negative for UTI and blood in urine [KS] 1903 no leukocytosis or anemia [KS] 1918 CK MB normal [KS] 1918 normal electrolytes, renal function, hepatic function [KS] 1999 troponin [KS] ED Course User Index [KS] Carolina Liang) Sniff Clinical Impressions as of Aug 11 2140 Chest pain, unspecified type XR CHEST 2V FRONTAL/LAT Final Result IMPRESSION: No acute radiographic abnormality. Grill Chef: PSCB Transcribe Date/Time: Aug 11 2018 6:27P [...] of the patient and have reviewed the PA/DIRECTOR CLIENT note. My gauthier findings include: History - [...] aneurysm and high sensitivity troponins to exclude MN. Nothing acute on w/u. Incidentally, he's had > 10 CT's in last 2 mo. He's had 26 providers write narcotics on his OARRS, several in the last few mo. We discussed he needs to f/u w/ pain management. He has no obstructing stone. Other additions or changes: None Signature: Dennis Alford MD Date: 08/11/2018 Time: 7:04 PM Carolina Liang) Napoleon 08/11/18 2335 ED NOTE Observed: 08/11/2018 Status: COMPLETED Source: [place] 5:57 PM CLINIC OTHER CAMPUS REPOSITORY HNO ID: [id number] Author: Berenice AminRn) NINA Pederson Service: (none) Author Type: Registered Nurse Type: ED Notes Filed: 08/11/2018 5:58 PM Note Text: Pt report was received ED NOTE Observed: 08/11/2018 Status: COMPLETED Source: [place] 5:54 PM [facility]AMP[facility] REPOSITORY HNO ID: [id number] Author: Jenny AminRn) NINA Crawford Service: (none) Author Type: Registered Nurse Type: ED Notes Filed: 08/11/2018 5:55 PM Note Text: Patient with known right kidney stone with increased pain. Chest pain started today. Two nitros taken bar captain with minimal relief. EKG Observed: 08/11/2018 Status: F Source: [place] 5:48 PM CLINIC OTHER CAMPUS REPOSITORY NAME : ATTILA DEL CID PID : [id number] : 1970 Gender : Male Race : ORD : [id number] Procedure Date : Aug 11 2018 17:48:19 Edit Date : Aug 12 2018 07:51:19 Diagnosis:NORMAL SINUS RHYTHM MINIMAL VOLTAGE CRITERIA FOR LVH, MAY BE NORMAL VARIANT BORDERLINE ECG WHEN COMPARED WITH ECG OF 15-JUN-2018 18:31, NO SIGNIFICANT CHANGE WAS FOUND no stemi Confirmed by Jona ALFORD, DENNIS Guerrero ([id number]), dictionary editor ANDRESSA TOBIN ([id number]) on 08/12/2018 7:51:13 AM Ventricular Rate : 86 BPM Atrial Rate : 86 BPM P-R Interval : 158 ms QRS Duration : 88 ms Q-T Interval : 372 ms QTC Calculation(Bezet) : 445 ms P [place] : 16 degrees R [place]a : 1 degrees T Bon Aqua : 20 degrees Test Reason : Chest Pain Location : 1 : ER TR Overread By : Jona ALFODR,DENNIS Guerrero Edited By : ANDRESSA TOBIN Referred By : , Acquired by : PS, ED NOTE Observed: 08/11/2018 Status: COMPLETED Source: [place] 12:11 AM [facility] REPOSITORY HNO ID: [id number] Author: René (Rn) NINA Cooley Service: Emergency Medicine Author Type: Registered Nurse Type: ED Notes Filed: 08/11/2018 12:11 AM Note Text: Patient informed: the name of medication, why we are giving it, possible side effects, what they may expect to feel, and was offered a chance to ask questions, prior to the administration of norflex. RADHA Observed: 08/11/2018 Status: COMPLETED Source: [place] 12:00 AM [facility] REPOSITORY Telephone (AKURFL) ATTILA DEL CID ([id number]) 1970 M Date Time Provider Department 08/11/18 CAMRON PEREZ [facility] During your visit today, we recorded the following information about you: Jeremiah Tapia RN, RN 08/11/2018 3:36 PM Signed Attila Del Cid called today. : 1970 Allergies: Atorvastatin; Celebrex [Celecoxib]; Clonidine; Fentanyl; Levofloxacin; Penicillin G; Relpax [Eletriptan Hbr]; Topamax [Topiramate]; Vicodin [Hydrocodone-Acetaminophen]; Wellbutrin [Bupropion Hcl] (home) [phone] (cell) Message can be left with: with patient only Reason for call: Patient called and stated that he was seen at the ED on 08-04-2018 and 08-10-2018 at [place]. ED did a CT and showed kidney [...] has been captured for this encounter? yes NINA Perales MD 08/11/2018 4:21 PM Signed Agree with plan, No blockages on imaging , so not clear that stone is causing the pain ; May need referral to pain managemnt or 2nd opinion regarding stones; I think he should not have any more CT either due to radiation exposure Jeremiah Tapia RN, RN 08/12/2018 8:29 AM Signed Left message on phone to return call to office. Regarding pain issue. NINA Perales CMA 08/12/2018 9:25 AM Signed Patient returned call and was notified of message below regarding per provider. Patient States the ER gave him the name and number to pain management Patient acknowledged understanding of instructions and has no further questions. Linda Tapia RN, RN 09/19/2018 9:22 AM Signed See message below. Jeremiah Tapia RN Allergies As of Date: 08/11/2018 Noted Allergy Reaction ATORVASTATIN 10/09/2017 14 - Other: See Comments Comments: Chest pain CELEBREX (CELECOXIB) 07/17/2016 11 - Vomiting Comments: Nausea CLONIDINE 07/17/2016 2 - Rash FENTANYL 07/17/2016 8 - GI Upset LEVOFLOXACIN 04/13/2017 2 - Rash Comments: pt reports to [facility] PT 04-13-2017 PENICILLIN G 12/30/2013 2 - Rash RELPAX (ELETRIPTAN HBR) 07/17/2016 11 - Vomiting Comments: Nausea TOPAMAX (TOPIRAMATE) 07/17/2016 11 - Vomiting VICODIN (HYDROCODONE-ACETAMINOPHE*12/30/2013 11 - Vomiting WELLBUTRIN (BUPROPION HCL) 07/17/2016 11 - Vomiting Comments: Nausea Date Reviewed: 08/10/2018 Reviewed by: Fiona (Rn) NINA Choe - Fully Assessed Reason for Visit: [...] AND PELVIS Observed: 08/10/2018 Status: F Source: [place] W/O CONTRAST 10:29 PM HEALTH SYSTEM REPOSITORY Performed at [facility] APPROVED BY: FREDDY HERNANDEZ DO EXAMINATION: CT ABDOMEN AND PELVIS W/O CONTRAST REASON FOR EXAM: Flank pain, recurrent stone disease suspected TECHNIQUE: CT ABDOMEN AND PELVIS W/O CONTRAST; CT of the abdomen and pelvis was performed without intravenous contrast using standard technique. CT Dose Reduction Employed: Automated exposure control (AEC) COMPARISON: CT abdomen/pelvis, 08/04/2018 FINDINGS: Staff Rn: No additional finding. Lower Thorax: Bibasilar atelectasis. [...] ED NOTE Observed: 08/10/2018 Status: COMPLETED Source: [place] 10:26 PM [facility] REPOSITORY HNO ID: [id number] Author: René (Rn) NINA Cooley Service: Emergency Medicine Author Type: Registered Nurse Type: ED Notes Filed: 08/10/2018 10:26 PM Note Text: Patient returned to the Emergency Department. MACROSCOPIC URINALYSIS Collected: 08/10/2018 Status: F Source: [facility] 10:00 PM HEALTH SYSTEM REPOSITORY TYPE CODE [...] Urine NEGATIVE LAB LSPG(LOINC 1.005-1.030 ) Specific [place], Ur 1.020 LAB LPHUR(LOIN 5.0-8.0 C) pH,Urine 8.0 LAB LUROB(LOIN 0.0-1.0 EU/dL C) Urobilinogen,Ur 1.0 LAB LLEUK(LOIN Negative C) Leukocytes NEGATIVE Esterase Performed By: #### LMACU #### [facility] [address] [address] ED NOTE Observed: 08/10/2018 Status: COMPLETED Source: [place] 9:56 PM [facility] REPOSITORY HNO ID: [id number] Author: René AminRn) NINA Cooley Service: Emergency Medicine Author Type: Registered Nurse Type: ED Notes Filed: 08/10/2018 9:56 PM Note Text: Voided urine specimen obtained and sent. ED NOTE Observed: 08/10/2018 Status: COMPLETED Source: [place] 9:54 PM [facility] REPOSITORY HNO ID: [id number] Author: Michela AminRn) NINA Walton Service: Emergency Medicine Author Type: Registered Nurse Type: ED Notes Filed: 08/10/2018 9:55 PM Note Text: See paper charting for epic downtime ED NOTE Observed: 08/10/2018 Status: COMPLETED Source: [place] 9:53 PM [facility] REPOSITORY HNO ID: [id number] Author: Cally AminRn) NINA Tam Service: Emergency Medicine Author Type: Registered Nurse Type: ED Notes Filed: 08/10/2018 9:53 PM Note Text: Patient informed: the name of medication, why we are giving it, possible side effects, what they may expect to feel, and was offered a chance to ask questions, prior to the administration of toradol, percocet. ED PROV NOTE Observed: 08/10/2018 Status: COMPLETED Source: [place] 9:53 PM [facility] REPOSITORY HNO ID: [id number] Author: René Garcia MD Service: Emergency Medicine [...] SURGERY HX Right 03/2017 patella replacement - CT ANESTH,KNEE JOINT; NOS 12/2017 Left - REMOVAL [...] Upset - Levofloxacin Rash pt reports to [facility] PT 04-13-2017 - Penicillin G Rash - [...] ED NOTE Observed: 08/10/2018 Status: COMPLETED Source: [place] 9:40 PM [facility] REPOSITORY HNO ID: [id number] Author: René (Rn) NINA Cooley Service: Emergency Medicine Author Type: Registered Nurse Type: ED Notes Filed: 08/10/2018 9:40 PM Note Text: See paper chart. Computer down time. CT ABDOMEN/PELVIS W/O Observed: 08/09/2018 Status: F Source: [place] 3:02 PM [facility] REPOSITORY ORIGINAL CT ABDOMEN/PELVIS W/O CONTRAST TECHNIQUE: [...] 1 VIEW Observed: 08/09/2018 Status: F Source: [place] 3:02 PM [facility] REPOSITORY ORIGINAL XR CHEST 1 VIEW PORTABLE [...] PM CBC Collected: 08/09/2018 Status: F Source: [place] 2:37 PM [facility] REPOSITORY TYPE CODE TESTS RESULT [...] Performed By: #### CBC, ADIFF, ANEU #### [address] [place], [place] [address] #### BMP, GFR #### [address] [address] .AUTO DIFF Collected: 08/09/2018 Status: F Source: [facility] 2:37 [facility] REPOSITORY [...] Performed By: #### CBC, ADIFF, ANEU #### [place] [address] #### BMP, GFR #### [place] [address] .NEUABS Collected: 08/09/2018 Status: F Source: [facility] 2:[address] [place] [address] REPOSITORY TYPE CODE TESTS RESULT OUT OF REFERENCE UNITS RANGE LAB ANEU(LOINC) 2.85-6.16 10 3/mcL Neutrophil, 5.60 Absolute Performed By: #### CBC, ADIFF, ANEU #### [address] [address] #### BMP, GFR #### [place] [address] BMP Collected: 08/09/2018 Status: F Source: [facility] 2:37 [facility] REPOSITORY [...] Performed By: #### CBC, ADIFF, ANEU #### [facility] [address] [place], [place] [address] #### BMP, GFR #### [facility] [address] [place] [address] .GFR Collected: 08/09/2018 Status: F Source: [facility] 2:37 PM [facility] REPOSITORY TYPE CODE TESTS RESULT OUT OF REFERENCE UNITS RANGE LAB GFRAA(LOINC ml/min/1.73 ) sqm GFR 114 Kazakh Result Comment: GFR Population mean for , [...] By: #### CBC, ADIFF, ANEU #### [address] [place] [address] [place], [place] [address] #### BMP, GFR #### [facility] [address] [place] [address] ED NOTE Observed: 08/04/2018 Status: COMPLETED Source: [place] 9:55 PM [facility] REPOSITORY HNO ID: [id number] Author: Jena (Rn) NINA Heath Service: Emergency Medicine Author Type: Registered Nurse Type: ED Notes Filed: 08/04/2018 9:55 PM Note Text: D/C to home with , instructed to follow up as directed sand return prn ED NOTE Observed: 08/04/2018 Status: COMPLETED Source: [place] 9:12 PM [facility] REPOSITORY HNO ID: [id number] Author: René AminRn) NINA Cooley Service: Emergency Medicine Author Type: Registered Nurse Type: ED Notes Filed: 08/04/2018 9:12 PM Note Text: Patient informed: the name of medication, why we are giving it, possible side effects, what they may expect to feel, and was offered a chance to ask questions, prior to the administration of dilaudid. CT ABDOMEN AND PELVIS Observed: 08/04/2018 Status: F Source: [facility] W/O CONTRAST 9:10 PM HEALTH SYSTEM REPOSITORY Performed at [facility] APPROVED BY: CASSY CHRISTINE MD EXAMINATION: CT [...] ED NOTE Observed: 08/04/2018 Status: COMPLETED Source: [place] 8:55 PM [facility] REPOSITORY HNO ID: [id number] Author: Fiona AminRn) NINA Choe Service: Emergency Medicine Author Type: Registered Nurse Type: ED Notes Filed: 08/04/2018 9:05 PM Note Text: Pt to CT via cart EKG (AK,AV,EU,FV,HL,ALLY,MM,SP) Observed: Status: F Source: [place] 08/04/2018 8:39 PM [facility] REPOSITORY NAME : ATTILA DEL CID PID : [id number] : 1970 Gender : Male Race : ORD : [id number] Procedure Date : Aug 04 2018 20:39 Edit Date : Aug 08 2018 16:29 Diagnosis:BASELINE ARTIFACT NORMAL SINUS RHYTHM MODERATE VOLTAGE CRITERIA FOR LVH, MAY BE NORMAL VARIANT BORDERLINE ECG WHEN COMPARED WITH ECG OF 02-MAY-2016 01:16, NO SIGNIFICANT CHANGE WAS FOUND Confirmed by MD Starr, Arcadio Mccall ([id number]) on 08/08/2018 4:29:40 PM Ventricular Rate : 80 BPM Atrial Rate : 80 BPM P-R Interval : 162 ms QRS Duration : 78 ms Q-T Interval : 374 ms QTC Calculation(Bezet) : 431 ms P Bon Aqua : 3 degrees R Bon Aqua : 4 degrees T Bon Aqua : -3 degrees Test Reason : Chest Pain Location : 150 : [place] ED Overread By : MD Starr,Arcadio Mccall Editted By : MD Clements Vinayak A. Referred By : GALILEO RUVALCABA Acquired by : Justina Bauer ED NOTE Observed: 08/04/2018 Status: COMPLETED Source: [place] 8:34 PM [facility] REPOSITORY HNO ID: [id number] Author: Fiona (Rn) Дмитрий RN Service: Emergency Medicine Author Type: Registered Nurse Type: ED Notes Filed: 08/04/2018 9:06 PM Note Text: While initiating IV pt c/o chest pain, reports he had to take a Nitro yesterday for similar symptoms. Pt placed on furniture restorer. Dr Ruvalcaba notified, EKG ordered. URINALYSIS ROUTINE Collected: 08/04/2018 Status: F Source: [facility] 8:30 PM HEALTH SYSTEM REPOSITORY TYPE CODE [...] NEGATIVE LAB LSPG(LOIN 1.005-1.030 C) 1.020 Specific [place], Ur LAB LPHUR(CHELA 5.0-8.0 NC) 7.5 pH,Urine LAB LUROB(CHELA 0.0-1.0 EU/dL NC) 0.2 Urobilinogen,Ur LAB LLEUK(CHELA Negative NC) Leukocytes NEGATIVE Esterase LAB LWBCU(CHELA 0-5 /hpf NC) WBC, 0-2 Urine LAB LRBCU(CHELA 0-3 /hpf NC) 0-3 RBC,Urine LAB LEPIT(CHELA 0-5 /hpf NC) Ep 0-2 Cells Urine LAB LBACT(CHELA None NC) Bacteria Urine Occasional LAB LAMPH(CHELA None NC) FEW Abnormal Amorphous Phosphates Performed By: #### HORTENSIA #### [facility] [address] [address] ED NOTE Observed: 08/04/2018 Status: COMPLETED Source: [place] 8:20 PM [facility] REPOSITORY HNO ID: [id number] Author: Fiona (Rn) NINA Choe Service: Emergency Medicine Author Type: Registered Nurse Type: ED Notes Filed: 08/04/2018 8:21 PM Note Text: Patient informed: the name of medication, why we are giving it, possible side effects, what they may expect to feel, and was offered a chance to ask questions, prior to the administration of Zofran, Toradol, Morphine. ED PROV NOTE Observed: 08/04/2018 Status: COMPLETED Source: [place] 8:13 PM [facility] REPOSITORY HNO ID: [id number] Author: Galileo Ruvalcaba MD Service: Emergency Medicine [...] SURGERY HX Right 03/2017 patella replacement - CT ANESTH,KNEE JOINT; NOS 12/2017 Left - REMOVAL [...] Upset - Levofloxacin Rash pt reports to [facility] PT 04-13-2017 - Penicillin G Rash - [...] per minute AXIS: Normal axis INTERVALS: Normal CT interval QRS COMPLEX: Normal ST SEGMENT: Normal ST-T segments QT INTERVAL: Normal COMPARED WITH PRIOR: unchanged from prior Galileo Ruvalcaba MD 08/04/18 2146 HEMOGRAM/DIFF Collected: 08/04/2018 Status: F Source: [facility] 8:13 PM HEALTH SYSTEM REPOSITORY TYPE CODE [...] 2.77 LAB LMONN(LOIN 0.20-1.00 thou/cmm C) Abs. Long 0.71 LAB LEOSN(LOIN 0.00-0.41 thou/cmm C) Abs. Eosin 0.15 LAB LBASN(LOIN 0.00-0.08 thou/cmm C) Abs. Baso 0.04 Performed By: #### LCBCD #### [facility] [address] [address] COMPREHENSIVE PANEL Collected: 08/04/2018 Status: F Source: [facility] 8:13 PM HEALTH SYSTEM REPOSITORY TYPE CODE TESTS RESULT OUT OF REFERENCE UNITS RANGE LAB GUEST RELATIONS ASSOCIATE(LOINC) 136-145 mEq/L Sodium Blood 137 LAB LK(LOINC) [...] 19 Ratio Performed By: #### LP14 #### [facility] [address] [place], [place] [address] LIPASE BLOOD Collected: 08/04/2018 Status: F Source: [facility] 8:13 PM HEALTH SYSTEM REPOSITORY TYPE CODE TESTS RESULT OUT OF REFERENCE UNITS RANGE LAB LLIP(LOINC) 73-393 U/L Lipase Blood 201 Performed By: #### LLIP #### [facility] [address] [place], [place] [address] MDRD EGFR Collected: 08/04/2018 Status: F Source: [facility] 8:13 PM HEALTH SYSTEM REPOSITORY TYPE CODE TESTS RESULT OUT OF RANGE REFERENCE UNITS LAB LGFRF(LOINC >60mL/min/1.73m ) 2 eGFR >60 Result Comment: If the patient is , multiply the result by 1.210. Performed By: #### LGFR #### [facility] [address] [address] TROPONIN I Collected: 08/04/2018 Status: F Source: [facility] 8:13 HEALTH SYSTEM REPOSITORY TYPE CODE TESTS RESULT OUT OF REFERENCE UNITS RANGE LAB LTRP(LOINC) <=0.07 ng/mL Troponin I <0.03 Performed By: #### LTRP #### [facility] [address] [address] XR CHEST 1 VIEW Observed: 08/02/2018 Status: F Source: [place] 3:03 PM [facility] REPOSITORY ORIGINAL XR CHEST 1 VIEW, 08/02/2018 [...] PM CBC Collected: 08/02/2018 Status: F Source: [place] 2:41 PM [facility] REPOSITORY TYPE CODE TESTS [...] Performed By: #### CBC, ADIFF, ANEU #### [address] [address] #### BMP, GFR, TROP, PBNP #### [address] [address] .AUTO DIFF Collected: 08/02/2018 Status: F Source: [facility] 2:41 PM [facility] REPOSITORY TYPE CODE [...] Performed By: #### CBC, ADIFF, ANEU #### [address] [address] #### BMP, GFR, TROP, PBNP #### [address] [address] .NEUABS Collected: 08/02/2018 Status: F Source: [facility] 2:41 [facility] REPOSITORY TYPE CODE TESTS RESULT OUT OF REFERENCE UNITS RANGE LAB ANEU(LOINC) 2.85-6.16 10 3/mcL Neutrophil, 4.60 Absolute Performed By: #### CBC, ADIFF, ANEU #### [address] [address] #### BMP, GFR, TROP, PBNP #### [address] [address] BMP Collected: 08/02/2018 Status: F Source: [facility] 2:41 [facility] REPOSITORY [...] Performed By: #### CBC, ADIFF, ANEU #### [address] [address] #### BMP, GFR, TROP, PBNP #### [address] [address] .GFR Collected: 08/02/2018 Status: F Source: [facility] 2:41 [facility] REPOSITORY TYPE CODE TESTS RESULT OUT OF REFERENCE UNITS RANGE LAB GFRAA(LOINC ml/min/1.73 ) sqm GFR 100 [place] Result Comment: GFR Population mean for , [...] Performed By: #### CBC, ADIFF, ANEU #### [address] [address] #### BMP, GFR, TROP, PBNP #### [place] [address] TROP Collected: 08/02/2018 Status: F Source: [facility] 2:41 PM [facility] REPOSITORY TYPE CODE [...] ECG changes may help assess possibility of MN. *Other non-acute coronary syndrome conditions such as CHF, myocarditis, pulmonary emboli, sepsis and cardiac surgery could result in myocardial damage and increased troponin levels. Performed By: #### CBC, ADIFF, ANEU #### [address] [address] #### BMP, GFR, TROP, PBNP #### [facility] [address] [place] [address] PBNP Collected: 08/02/2018 Status: F Source: [facility] 2:41 PM [facility] REPOSITORY TYPE CODE TESTS RESULT OUT OF REFERENCE UNITS RANGE LAB PBNP(LOINC) 0-125 pg/mL N-Terminal 78 proBNP Result Comment: NT-proBNP results of less than 300 pg/mL effectively rules out acute congestive heart failure with 99% negative predictive value. 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 He had a CXR done at [facility] and was told he had a spot that could be the start of pneumonia- he was not prescribed any antibiotics. He presented to the ER with chest pain-referred to cardiology. Cough is productive. Chest pain is improved. Cardiac w/u was negative at that time. PMH of afib. PMH of aortic aneurysm-4.6 cm- meeting with cardiothoracic surgeon in [place]. Patient has an appointment with cardiology tomorrow. [...] to seek care sooner. Yinka Herrera PA-C CNOV Observed: 07/28/2018 Status: COMPLETED Source: [place] 7:15 PM [facility] REPOSITORY Office Visit ([facility]) ATTILA DEL CID ([id number]) 1970 M Date Time Provider Department 07/28/18 7:15 PM YINKA HERRERA) WSTR During your visit today, we recorded [...] days. He had a CXR done at [facility] and was told he had a spot that could be the start of pneumonia-he was not prescribed any antibiotics. He presented to the ER with chest pain-referred to cardiology. Cough is productive. Chest pain is improved. Cardiac w/u was negative at that time. PMH of afib. PMH of aortic aneurysm-4.6 cm- meeting with cardiothoracic surgeon in [place]. Patient has an appointment with cardiology tomorrow. [...] 2 - Rash Comments: pt reports to [facility] PT 6--2017 PENICILLIN G 12/30/2013 2 - [...] Observed: 07/21/2018 Status: F Source: [facility] 9:55 PM [facility] REPOSITORY ORIGINAL XR CHEST 1 VIEW CLINICAL [...] Collected: 07/21/2018 Status: F Source: [facility] 9:51 PM [facility] REPOSITORY TYPE CODE TESTS RESULT [...] Performed By: #### CBC, ADIFF, ANEU #### [address] [address] #### BMP, TROP, GFR #### [address] [address] .AUTO DIFF Collected: 07/21/2018 Status: F Source: [facility] 9:51 PM [facility] REPOSITORY TYPE CODE TESTS RESULT [...] Performed By: #### CBC, ADIFF, ANEU #### [address] [address] #### BMP, TROP, GFR #### [address] [address] .NEUABS Collected: 07/21/2018 Status: F Source: [facility] 9:51 PM [facility] REPOSITORY TYPE CODE TESTS RESULT OUT OF REFERENCE UNITS RANGE LAB ANEU(LOINC) 2.85-6.16 10 3/mcL Neutrophil, 4.30 Absolute Performed By: #### CBC, ADIFF, ANEU #### [address] [address] #### BMP, TROP, GFR #### [place] [address] BMP Collected: 07/21/2018 Status: F Source: [facility] 9:51 PM [facility] REPOSITORY TYPE CODE TESTS RESULT [...] Performed By: #### CBC, ADIFF, ANEU #### [place] [address] #### BMP, TROP, GFR #### [place] [address] TROP Collected: 07/21/2018 Status: F Source: [facility] 9:51 PM [facility] REPOSITORY TYPE CODE TESTS RESULT [...] ECG changes may help assess possibility of MN. *Other non-acute coronary syndrome conditions such as CHF, myocarditis, pulmonary emboli, sepsis and cardiac surgery could result in myocardial damage and increased troponin levels. Performed By: #### RADHA CARRERO, ANEU #### [address] [place], [place] [address] #### BMP, TROP, GFR #### [facility] [address] [place] [address] .GFR Collected: 07/21/2018 Status: F Source: [facility] 9:51 PM [facility] REPOSITORY TYPE CODE TESTS RESULT OUT OF REFERENCE UNITS RANGE LAB GFRAA(LOINC ml/min/1.73 ) sqm GFR 103 Kazakh Result Comment: GFR Population mean for , [...] Performed By: #### CBC, ADIFF, ANEU #### [facility] [address] [place], [place] [address] #### BMP, TROP, GFR #### [address] [address] 12 LEAD ELECTROCARDIOGRAM Observed: 07/21/2018 Status: F Source: [place] 3:01 PM [facility] REPOSITORY [facility] Cardiovascular Services [address] [place] [address] 12 Lead EKG 07/18/18 1510 MR#: [id number] Acct: [id number] Name: ATTILA DEL CID Rep #: [id number] : 1970 48 From: Asael Hale MD [...] normal variant Borderline ECG Confirmed by ALEXIA CONNOR, ASAEL ([id number]), dictionary editor RICCO LEWIS ([id number]) on 07/21/2018 3:01:28 PM Referred By: Confirmed By:ASAEL HALE MD 07/21/18 1501 Date Asael Hale MD CC: Nyla Bearden MD; Chavez Byrd MD Signed ORTHOPEDIC VISIT Observed: 07/21/2018 Status: F Source: [place] REPORT 10:39 AM [facility] REPOSITORY [facility] [address] [facility] [address] [place] [address] OFFICE VISIT Date of Service: 07/07/18 MR#: [id number] Acct: [id number] Name: ATTILA DEL CID Rep #: [id number] : 1970 Provider: Claribel Batista DO Age/Sex: 48/M Location: [facility].SMO Status: Signed Intake Intake Visit Reasons: RIGHT [...] sleep apnea) (Chronic) Atherosclerotic heart disease of [place] coronary artery without angina pectoris (Chronic) Nephrolithiasis [...] Discontinued: lisinopril Discontinued Reason: Order edited - [id number] mg PO BID 60 tabs 11RF g original order Coding Level of Care Code Off vis,est,level 4 Diagnoses 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 07/21/18 1039 <Electronically signed by Claribel TATE Date Claribel Colladoigndolores Signature: Date (if applicable) CC: EMERGENCY DEPARTMENT Observed: 07/18/2018 Status: F Source: [place] SUMMARY 11:51 PM [facility] REPOSITORY [facility] Medical Records Department [address] [place] [address] [place] [address] Emergency Department Summary 07/18/18 1525 MR#: [id number] Acct: [id number] Name: ATTILA DEL CID Rep #: [id number] : 1970 48 From: Chavez Byrd MD PCP: Nyla Bearden MD Status: DEP ER - ER Visit Summary Date of Service: 07/18/18 Chief Complaint: Chest pain History of Present Illness: The patient is a 48 M this is been having sharp intermittent chest pain for last hour. Patient states he has a cardiac history states he had a prior MN. However the medical records show that he has had workups including a recent cardiac catheterization March of this year at [facility] showing no coronary disease, nor any type of blockage. Patient denies ever having any cardiac stents. He is never had a CABG. He is on Eliquis for intermittent A. fib. He does have a known thoracic aneurysm. Patient states that he is recently been in the hospital both here and at [facility]. Denies any prior history of PE or [...] symmetrical radial pulses. [address] Back nontender. Neurologically is awake and [...] outpatient. 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 Jesse Stokes. He knows the patient very well. He states the patient had extensive invasive and noninvasive cardiac workups which show no signs of coronary disease. Disposition: Discharge Impression: Chest pain of uncertain etiology History of intermittent A. fib Anticoagulated on Eliquis This note was generated with Preggers dictation software. It may contain incorrect words, [...] problems, contact your Primary Care Provider. Call [facility] ([phone]) or report to the closest Emergency Room. Call 911 if necessary. 07/18/18 2351 <Electronically signed by Chavez Byrd MD> Date Chavez Byrd MD Cosigner Signature (If Indicated): Date CC: Nyla Bearden MD DISCHARGE INSTRUCTION Observed: 07/18/2018 Status: Source: [place] 11:51 PM [facility] REPOSITORY [facility] Medical Records Department [address] [place] [address] Discharge Instruction 07/18/18 1600 MR#: [id number] Acct: [id number] Name: ATTILA DEL CID Rep #: [id number] : 1970 48 From: Chavez Byrd MD PCP: Nyla Bearedn MD Status: [facility] ER ED Disposition - Plan for ED [...] your Primary Care Provider. Call [facility] ([phone]) or report to the closest Emergency Room. Call 911 if necessary. 07/18/18 2351 <Electronically signed by Chavez Byrd MD> Date Chavez Byrd MD Cosigner Signature (If Indicated): Date CC: Nyla Bearden MD XR CHEST 1 VIEW Observed: 07/18/2018 Status: F Source: [facility] 11:11 PM [facility] REPOSITORY ORIGINAL XR CHEST 1 VIEW CLINICAL [...] Collected: 07/18/2018 Status: F Source: [facility] 10:57 PM [facility] REPOSITORY TYPE CODE TESTS RESULT [...] Performed By: #### CBC, ADIFF, ANEU #### [place] [id number] #### TROP, BMP, GFR #### [address] [address] .AUTO DIFF Collected: 07/18/2018 Status: F Source: [facility] 10:57 PM [facility] REPOSITORY TYPE CODE TESTS RESULT [...] Performed By: #### CBC, ADIFF, ANEU #### [address] [address] #### TROP, BMP, GFR #### [address] [address] .NEUABS Collected: 07/18/2018 Status: F Source: [facility] 10:57 [facility] [place] REPOSITORY TYPE CODE TESTS RESULT OUT OF REFERENCE UNITS RANGE LAB ANEU(LOINC) 2.85-6.16 10 3/mcL Neutrophil, 3.10 Absolute Performed By: #### CBC, ADIFF, ANEU #### [address] [address] #### TROP, BMP, GFR #### [place] [address] TROP Collected: 07/18/2018 Status: F Source: [facility] 10:57 [facility] [place] REPOSITORY [...] ECG changes may help assess possibility of MN. *Other non-acute coronary syndrome conditions such as CHF, myocarditis, pulmonary emboli, sepsis and cardiac surgery could result in myocardial damage and increased troponin levels. Performed By: #### CBC, YNESIFF, ANEU #### [place] [address] #### TROP, BMP, GFR #### [place] [address] BMP Collected: 07/18/2018 Status: F Source: [facility] 10:57 [facility] [place] REPOSITORY [...] By: #### CBC, ADIFF, ANEU #### [place] [address] [place], [place] [address] #### TROP, BMP, GFR #### [place] [address] .GFR Collected: 07/18/2018 Status: F Source: [facility] 10:57 PM [facility] REPOSITORY TYPE CODE TESTS RESULT OUT OF REFERENCE UNITS RANGE LAB GFRAA(LOINC ml/min/1.73 ) sqm GFR 112 Kazakh Result Comment: GFR Population mean for , [...] By: #### CBC, ADIFF, ANEU #### [place] [address] [place], [place] [address] #### TROP, BMP, GFR #### [place] [id number] [place] [address] CBC W/DIFF, AUTOMATED Collected: 07/18/2018 Status: F Source: [place] 3:13 PM [facility] REPOSITORY TYPE CODE TESTS RESULT OUT OF [...] Lymph 1.89 Performed By: #### L100.0100 #### [facility] [address] [place], [place], [id number] BASIC METABOLIC Collected: 07/18/2018 Status: F Source: [place] PROFILE (BMP) 3:13 PM [facility] REPOSITORY TYPE CODE TESTS RESULT OUT OF [...] GAP Performed By: #### L500.2500, L501.4010 #### [facility] [address] [place], [place], [address] TROPONIN-I Collected: 07/18/2018 Status: F Source: [place] 3:13 PM [facility] REPOSITORY TYPE CODE TESTS RESULT OUT OF RANGE REFERENCE UNITS LAB L501.4010 <0.045 ng/mL Normal < 0.015 TROPONIN-I Result Comment: TROPONIN-I EXPECTED VALUES <0.045 Negative 0.045 - 0.590 Consistent with Cardiac Damage > OR = 0.600 Critical Value Not every elevated troponin is indicative of MN. These values should be used with clinical judgement in examining the patient's clinical picture for diagnosis. To establish a diagnosis of MN versus myocardial injury, there must be a demonstrated rise and/or fall in the troponin values, in addition to ischemic symptoms, EKG changes, new regional wall motion abnormality, and/or angiographical evidence. PLEASE NOTE: REFERENCE RANGES EDITED 18 Performed By: #### L500.2500, L501.4010 #### [facility] [address] [place], [address] CHEST 1 VIEW Observed: 07/18/2018 Status: F Source: [place] (PORTABLE) 3:10 PM [facility] REPOSITORY [facility] Imaging Services [address] [place] [address] Chest 1 View (Portable) MR#: [id number] Acct: [id number] Name: ATTILA DEL CID Rep #: [id number] : 1970 M 48 From: Pablito Young MD PCP: Nyla Bearden MD Status: REG ER Study: Chest 1 View (Portable) Date of Exam: 07/18/18 Exam# [id number] Ordering Dr: Chavez Byrd MD STUDY: X-RAY [...] Pablito Young MD at 15:37 EDT Tel [phone], Service support , CC: Nyla Bearden MD; Chavez Byrd MD Grill Chef: Signed 12 LEAD ELECTROCARDIOGRAM Observed: 07/16/2018 Status: F Source: [place] 8:56 AM [facility] REPOSITORY [facility] Cardiovascular Services [address] [place] [address] 12 Lead EKG 07/12/18 1458 MR#: [id number] Acct: [id number] Name: ATTILA DEL CID Rep #: [id number] : 1970 48 From: Jesse Stokes MD [...] Collected: 07/16/2018 Status: F Source: [facility] 4:28 AM [facility] REPOSITORY TYPE CODE TESTS RESULT OUT OF REFERENCE UNITS RANGE LAB MG(LOINC) 1.6-2.4 mg/dL Magnesium Lvl 2.3 Performed By: #### MG, CMP, GFR, CBC, ADIFF, ANEU, TROPI #### [place] [address] CMP Collected: 07/16/2018 Status: F Source: [facility] 4:28 AM [facility] REPOSITORY TYPE CODE TESTS RESULT [...] CMP, GFR, CBC, ADIFF, ANEU, TROPI #### [place] [address] .GFR Collected: 07/16/2018 Status: F Source: [facility] 4:28 AM [facility] REPOSITORY TYPE CODE TESTS RESULT OUT OF REFERENCE UNITS RANGE LAB GFRAA(LOINC ml/min/1.73 ) sqm GFR >60 Kazakh Result Comment: GFR Population mean for , [...] CMP, GFR, CBC, ADIFF, ANEU, TROPI #### [place] [address] CBC Collected: 07/16/2018 Status: F Source: [facility] 4:28 AM [facility] REPOSITORY TYPE CODE [...] CMP, GFR, CBC, ADIFF, ANEU, TROPI #### [address] [address] .AUTO DIFF Collected: 07/16/2018 Status: F Source: [facility] 4:28 AM [facility] REPOSITORY TYPE CODE TESTS RESULT [...] CMP, GFR, CBC, ADIFF, ANEU, TROPI #### [place] [address] .NEUABS Collected: 07/16/2018 Status: F Source: [facility] 4:28 AM [facility] REPOSITORY TYPE CODE TESTS RESULT OUT OF REFERENCE UNITS RANGE LAB ANEU(LOINC) 2.25-8.10 10 3/mcL Neutrophil, 2.90 Absolute Performed By: #### MG, CMP, GFR, CBC, ADIFF, ANEU, TROPI #### [address] [address] TROPI Collected: 07/16/2018 Status: F Source: [facility] 4:28 AM [facility] REPOSITORY TYPE CODE TESTS RESULT [...] ECG changes may help assess possibility of MN. *Other non-acute coronary syndrome conditions such as CHF, myocarditis, pulmonary emboli, sepsis and cardiac surgery could result in myocardial damage and increased troponin levels. Performed By: #### MG, CMP, GFR, CBC, ADIFF, ANEU, TROPI #### [address] [address] TROP Collected: 07/15/2018 Status: F Source: [facility] 9:07 AM [facility] REPOSITORY TYPE CODE TESTS RESULT [...] ECG changes may help assess possibility of MN. *Other non-acute coronary syndrome conditions such as CHF, myocarditis, pulmonary emboli, sepsis and cardiac surgery could result in myocardial damage and increased troponin levels. Performed By: #### TROP #### [address] [address] [place] MYOCARDIAL SPECT Observed: 07/15/2018 Status: F Source: [place] STRESS/REST 5:32 AM [facility] REPOSITORY ORIGINAL NM MYOCARDIAL SPECT STRESS/REST CLINICAL [...] PM TROP Collected: 07/15/2018 Status: F Source: [place] 2:03 AM [facility] REPOSITORY TYPE CODE TESTS RESULT [...] ECG changes may help assess possibility of MN. *Other non-acute coronary syndrome conditions such as CHF, myocarditis, pulmonary emboli, sepsis and cardiac surgery could result in myocardial damage and increased troponin levels. Performed By: #### TROP #### [place] [address] CT ANGIOGRAPHY CHEST Observed: 07/15/2018 Status: F Source: [place] W/CONTRAST 12:53 AM [facility] REPOSITORY ORIGINAL Clinical history: Chest pain. History [...] 2 VIEWS Observed: 07/14/2018 Status: F Source: [place] 10:01 PM [facility] REPOSITORY ORIGINAL XR CHEST 2 VIEWS PA [...] PM CBC Collected: 07/14/2018 Status: F Source: [place] 9:20 PM [facility] REPOSITORY TYPE CODE TESTS [...] Performed By: #### CBC, ADIFF, ANEU #### [address] [address] #### TROP, BMP, GFR #### [address] [address] .AUTO DIFF Collected: 07/14/2018 Status: F Source: [facility] 9:20 PM [facility] REPOSITORY TYPE CODE [...] Performed By: #### CBC, ADIFF, ANEU #### [address] [address] #### TROP, BMP, GFR #### [place] [id number] .NEUABS Collected: 07/14/2018 Status: F Source: [facility] 9:20 PM [facility] REPOSITORY TYPE CODE TESTS RESULT OUT OF REFERENCE UNITS RANGE LAB ANEU(LOINC) 2.85-6.16 10 3/mcL Neutrophil, 3.30 Absolute Performed By: #### CBC, ADIFF, ANEU #### [place] [id number] #### TROP, BMP, GFR #### [place] [address] TROP Collected: 07/14/2018 Status: F Source: [facility] 9:20 PM [facility] REPOSITORY TYPE CODE TESTS RESULT [...] ECG changes may help assess possibility of MN. *Other non-acute coronary syndrome conditions such as CHF, myocarditis, pulmonary emboli, sepsis and cardiac surgery could result in myocardial damage and increased troponin levels. Performed By: #### CBC, ADIFF, ANEU #### [place] [address] #### TROP, BMP, GFR #### [place] [address] BMP Collected: 07/14/2018 Status: F Source: [facility] 9:20 PM [facility] REPOSITORY TYPE CODE TESTS RESULT [...] Performed By: #### CBC, ADIFF, ANEU #### [facility] [address] [place], [place] [address] #### TROP, BMP, GFR #### [facility] [address] [place] [address] .GFR Collected: 07/14/2018 Status: F Source: [facility] 9:20 PM [facility] REPOSITORY TYPE CODE TESTS RESULT OUT OF REFERENCE UNITS RANGE LAB GFRAA(LOINC ml/min/1.73 ) sqm GFR 125 Kazakh Result Comment: GFR Population mean for , [...] Performed By: #### CBC, ADIFF, ANEU #### [facility] [address] [place], [place] [address] #### TROP, BMP, GFR #### [address] [address] FES Collected: 07/14/2018 Status: F Source: [facility] 9:19 PM [facility] REPOSITORY TYPE CODE TESTS RESULT OUT OF RANGE REFERENCE UNITS LAB FE(LOINC) 65-175 mcg/dL Low Iron 28 LAB IBC(LOINC) 250-450 mcg/dL TIBC 384 LAB FESAT(LOINC % ) Iron Sat 7 Performed By: #### FES #### [address] [address] MG Collected: 07/14/2018 Status: F Source: [facility] 9:19 PM [facility] REPOSITORY TYPE CODE TESTS RESULT OUT OF REFERENCE UNITS RANGE LAB MG(LOINC) 1.8-2.4 mg/dL Magnesium Lvl 1.9 Performed By: #### MG #### [address] [address] ED NOTE Observed: 07/13/2018 Status: COMPLETED Source: [place] 7:17 PM [facility] REPOSITORY HNO ID: [id number] Author: Sudah (Rn) NINA Melgar Service: Emergency Medicine Author Type: Registered Nurse Type: ED Notes Filed: 07/25/2018 1:20 AM Note Text: CHART ACCESSED FOR PI CHART AUDIT 07/25/18 @0120 ED PROV NOTE Observed: 07/13/2018 Status: COMPLETED Source: [place] 6:52 PM [facility] REPOSITORY HNO ID: [id number] Author: Aurea Hua MD Service: Emergency Medicine [...] SURGERY HX Right 03/2017 patella replacement - CT ANESTH,KNEE JOINT; NOS 12/2017 Left - REMOVAL [...] Upset - Levofloxacin Rash pt reports to [facility] PT 04-13-2017 - Penicillin G Rash - [...] disposition: stable SIGNATURE: MD Aurea Macario MD 07/13/181853 SHOULDER 3V OR MORE Observed: 07/13/2018 Status: F Source: [facility] AP/TRUE AP/OTHER 6:15 PM HEALTH SYSTEM RIGHT REPOSITORY Performed at [facility] APPROVED BY: Jung Salinas MD EXAM TITLE: SHOULDER 3V OR MORE AP/TRUE AP/OTHER RIGHT DATE: 07/13/2018 18:01 INDICATION: Injury to right shoulder. Limited range of motion. COMPARISON: None. AP, oblique, and scapular Y views of the right shoulder show normal alignment. No fracture. No bone erosion or bone destruction. IMPRESSION: Negative views of right shoulder. ED NOTE Observed: 07/13/2018 Status: COMPLETED Source: [place] 6:10 PM [facility] REPOSITORY HNO ID: [id number] Author: Sindy Garcia (Rn) NINA Jordan Service: (none) Author Type: Registered Nurse Type: ED Notes Filed: 07/13/2018 6:15 PM Note Text: Patient transported to radiology with Tech. ED NOTE Observed: 07/13/2018 Status: COMPLETED Source: [place] 5:57 PM [facility] REPOSITORY O ID: [id number] Author: Sindy Garcia (Rn) NINA Jordan Service: (none) Author Type: Registered Nurse Type: ED Notes Filed: 07/13/2018 5:58 PM Note Text: Pt states moving boxes for several days C/O right shoulder pain Reports h/o shoulder dislocation EMERGENCY DEPARTMENT Observed: 07/13/2018 Status: F Source: [place] SUMMARY 12:42 AM [facility] REPOSITORY [facility] Medical Records Department [address] [place] [address] Emergency Department Summary 07/12/18 1601 MR#: [id number] Acct: [id number] Name: ATTILA DEL CID Rep #: [id number] : 1970 48 From: Attila Hutchinson DO [...] He states he has a history of MN but has had negative heart catheterizations in [...] 2. Lightheadedness This note was generated with [employer]mber[employer]ation software. It may contain incorrect words, spelling, [...] your Primary Care Provider. Call [facility] ([phone]) or report to the closest Emergency Room. Call 911 if necessary. 07/13/18 0042 <Electronically signed by Attila Hutchinson DO> Date Attila Hutchinson DO Cosigner Signature (If Indicated): Date CC: Nyla Bearden MD CTA CHEST W/WO Observed: 07/12/2018 Status: F Source: [place] CONTRAST 3:42 PM [facility] REPOSITORY [facility] Imaging Services [address] [place] [address] CTA Chest W/WO Contrast MR#: [id number] Acct: [id number] Name: ATTILA DEL CID Rep #: [id number] : 1970 M 48 From: Vishnu Aranda MD PCP: Nyla Bearden MD Status: REG ER Study: CTA Chest W/WO Contrast Date of Exam: 07/12/18 Exam# [id number] Ordering Dr: Attila Hutchinson DO STUDY: CTA [...] Tel , Service support , CC: Attila Hutchinson DO; Nyla Bearden MD Grill Chef: Signed CBC W/DIFF, AUTOMATED Collected: 07/12/2018 Status: F Source: [place] 2:55 PM [facility] REPOSITORY TYPE CODE TESTS RESULT OUT OF [...] Lymph 3.12 Performed By: #### L100.0100 #### [facility] [address] [place] [address]. [place], [place], [address] BASIC METABOLIC Collected: 07/12/2018 Status: F Source: [place] PROFILE (BMP) 2:55 PM [facility] REPOSITORY TYPE CODE TESTS RESULT OUT OF [...] 10 Performed By: #### L500.2500, L501.4010 #### [facility] [address] [facility]. [place], [place], [address] TROPONIN-I Collected: 07/12/2018 Status: F Source: [place] 2:55 PM [facility] REPOSITORY TYPE CODE TESTS RESULT OUT OF RANGE REFERENCE UNITS LAB L501.4010 <0.045 ng/mL Normal < 0.015 TROPONIN-I Result Comment: TROPONIN-I EXPECTED VALUES <0.045 Negative 0.045 - 0.590 Consistent with Cardiac Damage > OR = 0.600 Critical Value Not every elevated troponin is indicative of MN. These values should be used with clinical judgement in examining the patient's clinical picture for diagnosis. To establish a diagnosis of MN versus myocardial injury, there must be a demonstrated rise and/or fall in the troponin values, in addition to ischemic symptoms, EKG changes, new regional wall motion abnormality, and/or angiographical evidence. PLEASE NOTE: REFERENCE RANGES EDITED 18 Performed By: #### L500.2500, L501.4010 #### [facility] [address] [facility]. [place], [place], [address] OPERATIVE NO Observed: 07/11/2018 Status: COMPLETED Source: [place] 12:00 AM CLINIC OTHER CAMPUS REPOSITORY HNO ID: [id number] Author: Camron Perez Service: Urology Author Type: Physician Type: Operative Report Filed: 07/14/2018 6:58 AM Note Text: [facility] - Operative Report ATTILA DEL CID : 1970 AGE: 48. SEX: M PATIENT TYPE: A HOSP SVC: UROL LOCATION: [facility] ATTENDING PHYSICIAN: CAMRON PEREZ CSN NUMBER: [id number] DATE OF SURGERY/PROCEDURE: 07/10/2018 INCISION/PROCEDURE START TIME: 12:55 PM INCISION CLOSE/PROCEDURE END TIME: 1:07 PM PREOPERATIVE DIAGNOSIS: Right renal calculus, right hydronephrosis. POSTOPERATIVE DIAGNOSIS: Right renal calculus, right hydronephrosis. SURGEON: Camron Perez MD BIOCHEMISTRY TEACHER: None. SURGERY/PROCEDURE: Cystoscopy with right ureteroscopy and [...] sterile fashion in dorsal lithotomy position. A #21-Tajik cystoscope with 30-degree lens was inserted into [...] room in stable condition. Camron Perez MD DB:[id number] /[id number] ANES POST Observed: 07/10/2018 Status: COMPLETED Source: [place] 3:18 PM [facility] REPOSITORY HNO ID: [id number] Author: Keila Delgado Service: Anesthesiology Author Type: [...] NURSING PROG Observed: 07/10/2018 Status: COMPLETED Source: [place] 2:27 PM [facility] REPOSITORY HNO ID: [id number] Author: Fannie AminRn) NINA Bernard Service: Nursing Author Type: Registered Nurse Type: Nursing Progress Note Filed: 07/10/2018 2:29 PM Note Text: Dr. Gurrola at the bedside and instilled 2 gtts of Topramax eye gtts into deng eyes for patient. Instructions for home use given. NURSING PROG Observed: 07/10/2018 Status: COMPLETED Source: [place] 1:45 PM [facility] OTHER CAMPUS REPOSITORY HNO ID: [id number] Author: Fannie AminRn) NINA Bernard Service: Nursing Author Type: Registered Nurse Type: Nursing Progress Note Filed: 07/10/2018 1:46 PM Note Text: Patient c/o feeling like something is in the inner corner of right eye. Dr. Gurrola to see patient in recovery. CALCULI ANALYSIS Collected: 07/10/2018 Status: F Source: [facility] 1:20 PM HEALTH SYSTEM REPOSITORY TYPE CODE [...] and its performance characteristics determined by the [facility] [place] ([facility]). It has not been cleared or approved by the FDA. -[facility] is regulated under CLIA as qualified to perform high-complexity testing. This test is used for clinical purposes. It should not be regarded as investigational or for research. Performing Laboratory: [facility] [address] [place] [address] Performed By: #### STONX #### [facility] [address] [place] [address] OR UROGRAM WITH Observed: 07/10/2018 Status: F Source: [facility] 1:05 PM HEALTH SYSTEM REPOSITORY Performed at [facility] APPROVED BY: Shahriar Mcknight MD EXAM TITLE: [...] TO 1 Observed: 07/10/2018 Status: F Source: [facility] 1:05 PM HEALTH SYSTEM REPOSITORY Performed at [facility] APPROVED BY: Jorge Wylie MD IMPRESSION: 31 seconds of fluoroscopy time was utilized for this exam. ANES PREOP Observed: 07/10/2018 Status: COMPLETED Source: [place] 11:45 AM [facility] REPOSITORY HNO ID: [id number] Author: Jayden Gurrola Service: Anesthesiology Author Type: [...] SURGERY HX Right 03/2017 patella replacement - CT ANESTH,KNEE JOINT; NOS 12/2017 Left - REMOVAL [...] Upset - Levofloxacin Rash pt reports to [facility] PT 04-13-2017 - Penicillin G Rash - [...] July 10, 2018 TIME: 11:45 AM CSN: [id number] NURSING PROG Observed: 07/10/2018 Status: COMPLETED Source: [place] 11:43 AM [facility] REPOSITORY HNO ID: [id number] Author: Meagan (Rn) NINA Escobar Service: Nursing Author Type: Registered Nurse Type: Nursing Progress Note Filed: 07/10/2018 11:44 AM Note Text: B/P reported to dr gurrola and recheck done. HISTORY PHYSICAL Observed: 07/10/2018 Status: COMPLETED Source: [place] 11:16 AM [facility] REPOSITORY HNO ID: [id number] Author: aCmron Perez Service: Urology Author Type: Physician Type: [...] SURGERY HX Right 03/2017 patella replacement - CT ANESTH,KNEE JOINT; NOS 12/2017 Left - REMOVAL [...] 06/15/2018 Neut% 62.1 06/15/2018 Lymph% 26.8 06/15/2018 Long% 9.7 06/15/2018 Eosin% 0.9 06/15/2018 Baso% 0.5 06/15/2018 Abs Neut (ANC) 6.56 06/15/2018 Abs Long 1.02 06/15/2018 Abs Eosin 0.09 06/15/2018 Abs Baso 0.05 06/15/2018 pH, Urine Date Value Ref Range Status 06/28/2018 7.0 5.0 - 8.0 Final Specific [place], Ur Date Value Ref Range Status 06/28/2018 [...] PAGER: PROGRESS Observed: 07/09/2018 Status: COMPLETED Source: [place] 11:59 AM [facility] REPOSITORY O ID: [id number] Author: Cherelle Demarco Service: (none) Author Type: (none) Type: Progress Notes Filed: 07/09/2018 12:00 PM Note Text: I called Dr. Perez office talked to susan regarding consent per office consent will be done day of surgery. [facility] EMERGENCY DEPARTMENT Observed: 07/09/2018 Status: F Source: [facility] 2:35 AM [facility] REPOSITORY [facility] Medical Records Department [address] [place] [address] Emergency Department Summary 07/08/18 1709 MR#: [id number] Acct: [id number] Name: ATTILA DEL CID Rep #: [id number] : 1970 48 From: Cassy Cruz MD [...] spontaneous reduction This note was generated with Preggers dictation software. It may contain incorrect words, [...] your Primary Care Provider. Call [facility] ([phone]) or report to the closest Emergency Room. Call 911 if necessary. 07/09/18 0235 <Electronically signed by Cassy Cruz MD> Date Cassy Cruz MD Cosigner Signature (If Indicated): Date CC: Nyla Bearden MD SHOULDER MIN 2 VIEWS Observed: 07/08/2018 Status: F Source: [place] 4:45 PM [facility] REPOSITORY [facility] Imaging Services [address] [place] [address] Shoulder min 2 Views MR#: [id number] Acct: [id number] Name: ATTILA DEL CID Rep #: [id number] : 1970 M 48 From: Nirmala Zee MD PCP: Nyla Bearden MD Status: DEP ER Study: Shoulder min 2 Views Date of Exam: 07/08/18 Exam# [id number] Ordering Dr: Cassy Cruz MD STUDY: X-RAY [...] axillary view. No fracture. Electronically Signed: Nirmala Zee, at 17:18 EDT Tel , Service support , CC: Nyla Bearden MD; Cassy Cruz Grill Chef: Signed SHOULDER ONE VIEW Observed: 07/07/2018 Status: F Source: [place] 11:06 AM [facility] REPOSITORY [facility] Imaging Services [address] [place] [address] Shoulder One View MR#: [id number] Acct: [id number] Name: ATTILA DEL CID Rep #: [id number] : 1970 M 48 From: Camron Louis MD PCP: Nyla Bearden MD Status: REG CLI Study: Shoulder One View Date of Exam: 07/07/18 Exam# [id number] Ordering Dr: Claribel Batista DO STUDY: X-RAY [...] CC: Claribel Batista DO; Nyla Bearden MD Grill Chef: Signed HOSP Observed: 07/07/2018 Status: COMPLETED Source: [place] 12:00 AM CLINIC OTHER CAMPUS REPOSITORY Patient:Attila Del Cid MRN: <[id number]> Height:5' 11(1.803 m) Weight:238 lb (107.956 kg) [...] SURGERY HX Right 03/2017 patella replacement - CT ANESTH,KNEE JOINT; NOS 12/2017 Left - REMOVAL [...] 06/15/2018 Neut% 62.1 06/15/2018 Lymph% 26.8 06/15/2018 Long% 9.7 06/15/2018 Eosin% 0.9 06/15/2018 Baso% 0.5 06/15/2018 Abs Neut (ANC) 6.56 06/15/2018 Abs Long 1.02 06/15/2018 Abs Eosin 0.09 06/15/2018 Abs Baso 0.05 06/15/2018 pH, Urine Date Value Ref Range Status 06/28/2018 7.0 5.0 - 8.0 Final Specific [place], Ur Date Value Ref Range Status 06/28/2018 [...] 10, 2018 TIME: 11:16 AM PAGER: Meagan Escobar, RN, RN 07/10/2018 11:44 AM Signed B/P [...] SURGERY HX Right 03/2017 patella replacement - CT ANESTH,KNEE JOINT; NOS 12/2017 Left - REMOVAL [...] Upset - Levofloxacin Rash pt reports to [facility] PT 04-13-2017 - Penicillin G Rash - [...] July 10, 2018 TIME: 11:45 AM CSN: [id number] Progress Notes (UROL CHRISSIEWAnish): Jena Lincoln 07/07/2018 2:27 PM Signed Outpatient Right Holmium Laser Lithotripsy AND possible Right Ureteral Stent Placement, [facility] Main, [place] 07/10/18, 1:00 pm. Presurgical testing, [place] 07/09/18, 8:40 am. Patient agreeable to dates, times. Not enough time to mail surgery booklet. Susan Ynag 12 LEAD ELECTROCARDIOGRAM Observed: 07/04/2018 Status: F Source: [place] 1:16 PM [facility] REPOSITORY [facility] Cardiovascular Services [address] [place] [address] 12 Lead EKG 07/01/18 1714 MR#: [id number] Acct: [id number] Name: ATTILA DEL CID Rep #: [id number] : 1970 48 From: Jesse Stokes MD [...] Signed PROGRESS Observed: 07/02/2018 Status: COMPLETED Source: [place] 11:41 AM CLINIC OTHER CAMPUS REPOSITORY HNO ID: [id number] Author: Trixie Ratliff Service: Urology Author Type: Nurse Practitioner Type: Progress Notes Filed: 07/02/2018 11:42 AM Note Text: Patient a No Show at PST 07/02/2018. Phone busy at surgery scheduling, voice message left. EMERGENCY DEPARTMENT Observed: 07/02/2018 Status: F Source: [place] SUMMARY 12:19 AM [facility] REPOSITORY [facility] Medical Records Department [address] [place] [address] Emergency Department Summary 07/01/18 1738 MR#: [id number] Acct: [id number] Name: ATTILA DEL CID Rep #: [id number] : 1970 48 From: Diana Mays MD [...] chest pain This note was generated with Imbera Electronics[employer] software. It may contain incorrect words, spelling, [...] your Primary Care Provider. Call [facility] ([phone]) or report to the closest Emergency Room. Call 911 if necessary. 07/02/18 0019 <Electronically signed by Diana Mays MD> Date Diana Mays MD Cosigner Signature (If Indicated): Date CC: Nyla Bearden MD DISCHARGE INSTRUCTION Observed: 07/01/2018 Status: F Source: [place] 6:59 PM [facility] REPOSITORY [facility] Medical Records Department [address] [place] [address] Discharge Instruction 07/01/18 1857 MR#: [id number] Acct: [id number] Name: ATTILA DEL CID Rep #: [id number] : 1970 48 From: Diana Mays MD PCP: Nyla Bearden MD Status: REG ER ED Disposition - Plan for ED Patient: Disposition: Home or Assisted Living Chief Complaint: Chest Pain Instructions: ED Dislocation Shoulder Redu, ED Chest Pain Atypical Unkn Cause Prescriptions: Oxycodone HCl/Acetaminophen [Percocet 5/325] 1 tablet PO Q6H PRN PRN 5 Days #20 tablet PRN Reason: Pain Referrals: yNla Bearden MD [Primary Care Provider] - Claribel Batista DO [STAFF PHYSICIAN] - As soon as possible What to do if you have Problems For any increased pain, shortness of breath, bleeding, nausea or vomiting, chest pain, or any unexpected problems, contact your Primary Care Provider. Call [facility] ([phone]) or report to the closest Emergency Room. Call 911 if necessary. 07/01/18 4461 <Electronically signed by Diana Mays MD> Date Diana Mays MD Cosigner Signature (If Indicated): Date CC: Nyla Bearden MD CBC W/DIFF, AUTOMATED Collected: 07/01/2018 Status: F Source: [place] 5:50 PM [facility] REPOSITORY TYPE CODE TESTS RESULT OUT OF [...] Lymph 2.39 Performed By: #### L100.0100 #### [facility] [address] [place], [place], [address] BASIC METABOLIC Collected: 07/01/2018 Status: F Source: [place] PROFILE (BMP) 5:50 PM [facility] REPOSITORY TYPE CODE TESTS RESULT OUT OF [...] 10 Performed By: #### L500.2500, L501.4010 #### [facility] [address] [place], [place], [address] TROPONIN-I Collected: 07/01/2018 Status: F Source: [place] 5:50 PM [facility] REPOSITORY TYPE CODE TESTS RESULT OUT OF RANGE REFERENCE UNITS LAB L501.4010 <0.045 ng/mL Normal < 0.015 TROPONIN-I Result Comment: TROPONIN-I EXPECTED VALUES <0.045 Negative 0.045 - 0.590 Consistent with Cardiac Damage > OR = 0.600 Critical Value Not every elevated troponin is indicative of MN. These values should be used with clinical judgement in examining the patient's clinical picture for diagnosis. To establish a diagnosis of MN versus myocardial injury, there must be a demonstrated rise and/or fall in the troponin values, in addition to ischemic symptoms, EKG changes, new regional wall motion abnormality, and/or angiographical evidence. PLEASE NOTE: REFERENCE RANGES EDITED 18 Performed By: #### L500.2500, L501.4010 #### [facility] [address] [facility] [place], [address] CHEST 1 VIEW Observed: 07/01/2018 Status: F Source: [place] (PORTABLE) 5:36 PM [facility] REPOSITORY [facility] Imaging Services [address] [place] [address] Chest 1 View (Portable) MR#: [id number] Acct: [id number] Name: ATTILA DEL CID Rep #: [id number] : 1970 48 From: Carlos Eduardo Johnson DO PCP: Nyla Bearden MD Status: REG ER Study: Chest 1 View (Portable) Date of Exam: 07/01/18 Exam# [id number] Ordering Dr: Diana Mays MD STUDY: X-RAY [...] Eduardo Johnson DO at 18:15 EDT Tel [phone], Service support , CC: Nyla Bearden MD; Diana Mays MD Grill Chef: Signed SHOULDER MIN 2 VIEWS Observed: 07/01/2018 Status: F Source: [place] 5:36 PM [facility] REPOSITORY [facility] Imaging Services [address] [place] [address] Shoulder min 2 Views MR#: [id number] Acct: [id number] Name: ATTILA DEL CID Rep #: [id number] : 1970 48 From: Carlos Eduardo Johnson DO PCP: Nyla Bearden MD Status: REG ER Study: Shoulder min 2 Views Date of Exam: 07/01/18 Exam# [id number] Ordering Dr: Diana Mays MD STUDY: X-RAY [...] Eduardo Johnson DO at 18:22 EDT Tel [phone], Service support , CC: Nyla Bearden MD; Diana Mays MD Grill Chef: Signed ED NOTE Observed: 06/28/2018 Status: COMPLETED Source: [place] 12:27 AM [facility] REPOSITORY HNO ID: [id number] Author: Brie AminRn) NINA Chau Service: Emergency Medicine Author Type: Registered Nurse Type: ED Notes Filed: 06/28/2018 12:28 AM Note Text: Patient informed: the name of medication, why we are giving it, possible side effects, what they may expect to feel, and was offered a chance to ask questions, prior to the administration of morphine and phenergan ED PROV NOTE Observed: 06/28/2018 Status: COMPLETED Source: [place] 12:27 AM [facility] REPOSITORY HNO ID: [id number] Author: Galileo Ruvalcaba MD Service: Emergency Medicine Author Type: Physician Type: ED Provider Notes Filed: 06/28/2018 12:47 AM Note Text: ED Provider Note Patient Name: Attila Del Cid SERVICE DATE: 06/28/18 History Patient [...] SURGERY HX Right 03/2017 patella replacement - CT ANESTH,KNEE JOINT; NOS 12/2017 Left FAMILY HISTORY [...] Upset - Levofloxacin Rash pt reports to [facility] PT 04-13-2017 - Penicillin G Rash - [...] ED NOTE Observed: 06/28/2018 Status: COMPLETED Source: [place] 12:18 AM [facility] REPOSITORY HNO ID: [id number] Author: Brie (Rn) NINA Chau Service: Emergency Medicine Author Type: Registered Nurse Type: ED Notes Filed: 06/28/2018 12:18 AM Note Text: urine specimen obtained and sent. URINALYSIS ROUTINE Collected: 06/28/2018 Status: F Source: [facility] 12:15 AM HEALTH SYSTEM REPOSITORY TYPE CODE [...] NEGATIVE LAB LSPG(LOINC 1.005-1.030 ) Specific 1.025 [place], Ur LAB LPHUR(LOIN 5.0-8.0 C) pH,Urine 7.0 LAB LUROB(LOIN 0.0-1.0 EU/dL C) Urobilinogen,Ur 1.0 LAB LLEUK(LOIN Negative C) Leukocytes NEGATIVE Esterase LAB LWBCU(LOIN 0-5 /hpf C) WBC, Urine 0-2 LAB LRBCU(LOIN 0-3 /hpf C) RBC,Urine 0-3 LAB LEPIT(LOIN 0-5 /hpf C) Ep Cells Urine NONE LAB LAMPH(LOIN None C) Abnormal Amorphous FEW Phosphates Performed By: #### LURIN #### [place] [address] INTERNAL MEDICINE Observed: 06/27/2018 Status: F Source: [place] OFFICE VISIT 10:20 AM [facility] Internal Medicine [address] [place] [address] [place] [address] OFFICE VISIT Date of Service: 06/27/18 MR#: [id number] Acct: [id number] Name: ATTILA DEL CID Rep #: [id number] : 1970 Provider: Tawanda Colon NP Age/Sex: 48/M Location: [facility] Status: Signed Intake Vital Signs06/27/18 Height 5 [...] sleep apnea) (Chronic) Atherosclerotic heart disease of [place] coronary artery without angina pectoris (Chronic) Nephrolithiasis [...] he has been taking Zofran and Imodium eluv-vcb-[id number] which has been effective. He stated he [...] oriented x3 Limitations: mental status not altered HENMT Head: normal to inspection Ears: hearing grossly [...] CC: RADHA Observed: 06/25/2018 Status: COMPLETED Source: [place] 12:00 AM CLINIC OTHER CAMPUS REPOSITORY Telephone (ALBARO) ATTILA DEL CID ([id number]) 1970 [facility] Date Time Provider Department 06/25/18 CAMRON PEREZ [...] or just wait and see Li Fonseca [facility] 06/25/2018 12:47 PM Signed Left message on phone to return call to office. iLnda Fonseca Cma 06/26/2018 9:07 AM Signed Pt notified and states he would like to move forward with SURGERY: Pt states he also had CT done at [facility] - requesting results now Linda Fonseca Cma Allergies As of Date: 06/25/2018 Noted Allergy Reaction CELEBREX (CELECOXIB) 07/17/2016 11 - Vomiting Comments: Nausea CLONIDINE 07/17/2016 2 - Rash FENTANYL 07/17/2016 8 - GI Upset LEVOFLOXACIN 04/13/2017 2 - Rash Comments: pt reports to [facility] PT 04-13-2016 PENICILLIN G 12/30/2013 2 - Rash RELPAX (ELETRIPTAN HBR) 07/17/2016 11 - Vomiting Comments: Nausea TOPAMAX (TOPIRAMATE) 07/17/2016 11 - Vomiting VICODIN (HYDROCODONE-ACETAMINOPHE*12/30/2013 11 - Vomiting WELLBUTRIN (BUPROPION HCL) 07/17/2016 11 - Vomiting Comments: Nausea Date Reviewed: 06/15/2018 Reviewed by: Destiny (Rn) NINA Gallo - Fully Assessed Reason for Visit: [...] on 06/25/18 Observed: 06/21/2018 Status: F Source: [place] CULTURE URINE 11:00 PM SYSTEM REPOSITORY CULTURE URINE --> Status: F No growth (<1,000 CFU/ml). Performed By: #### UAMAC, UAMIC #### [employer] [facility] [place] [address] #### C/UR #### [employer] [address] [place] [phone] TROPONIN I Collected: 06/21/2018 Status: F Source: [place] 9:27 PM SYSTEM REPOSITORY TYPE CODE TESTS RESULT OUT OF RANGE REFERENCE UNITS LAB TROP4 0.000-0.034 ng/mL Normal Troponin I < 0.012 Result Comment: 0.046 - 0.400 = Indeterminate > 0.400 = Consider Myocardial Injury Performed By: #### TROPN #### [employer] [address] [place] [address] CTA CHEST W/ + W/O Observed: 06/21/2018 Status: F Source: [place] CONTRAST 7:42 PM SYSTEM REPOSITORY Patient Name: ATTILA DEL CID CT Exam Date/Time 06/21/2018 19:24:51 EDT Exam CTA Chest w/ + w/o Contrast Ordering Physician COOKIE POOLE GINA Accession Number [id number] CPT4 Codes 54275 (), Q9967 () Reason For Exam cp, hx of thoracic aneursym Report Reasons for examination: Chest pain/ shortness of breath. Noncontrast CT the chest is first ordered and performed showing some coronary artery calcified plaques CT scan of the chest were performed with bolus contrast and high resolution scans for CT pulmonary angiographic study, with images post-processed by myself on frents workstation, with 3D - volume rendered CT [...] ABDOMEN/PELVIS W/O Observed: 06/21/2018 Status: F Source: [place] CONTRAST 7:37 PM SYSTEM REPOSITORY Patient Name: ATTILA DEL CID CT Exam Date/Time 06/21/2018 19:24:[address] Abdomen/Pelvis (No PO, No IV) Ordering Physician COOKIE POOLE GINA Accession Number [id number] CPT4 Codes 03243 (CT Abdomen/Pelvis (No PO, No IV)) Reason [...] CHEST PORTABLE Observed: 06/21/2018 Status: F Source: [place] 7:31 PM SYSTEM REPOSITORY Patient Name: ATTILA DEL CID Diagnostic Radiology Exam Date/Time 06/21/2018 19:29:00 EDT Exam CR Chest Portable Ordering Physician COOKIE POOLE GINA Accession Number [id number] CPT4 Codes 66850 () Reason For Exam cp sob Report [...] W/ AUTODIFF Collected: 06/21/2018 Status: F Source: [place] 6:29 PM SYSTEM REPOSITORY TYPE CODE TESTS [...] By: #### HEMDF, BMP3, PT/AP, TROPN #### [facility] [place] [address] [place] [address] BASIC METABOLIC PANEL Collected: 06/21/2018 Status: F Source: [place] 6:29 PM SYSTEM REPOSITORY TYPE CODE TESTS [...] mg/dL Normal Calcium 9.0 Performed By: #### HEMDF, BMP3, PT/AP, TROPN #### [employer] [facility] [place] [address] PROTIME AND APTT Collected: 06/21/2018 Status: F Source: [place] 6:29 PM SYSTEM REPOSITORY TYPE CODE TESTS [...] By: #### HEMDF, BMP3, PT/AP, TROPN #### [employer] [facility] [place] [address] TROPONIN I Collected: 06/21/2018 Status: F Source: [place] 6:29 PM SYSTEM REPOSITORY TYPE CODE TESTS RESULT OUT OF RANGE REFERENCE UNITS LAB TROP4 0.000-0.034 ng/mL Normal Troponin I < 0.012 Result Comment: 0.046 - 0.400 = Indeterminate > 0.400 = Consider Myocardial Injury Performed By: #### HEMDF, BMP3, PT/AP, TROPN #### [employer] [address] [place] [address] URINALYSIS,MACRO Collected: 06/21/2018 Status: F Source: [facility] [place] 6:29 PM SYSTEM REPOSITORY TYPE CODE TESTS RESULT OUT OF REFERENCE UNITS RANGE LAB APPUR Clear NA Appearance Clear LAB COLUR Lt. Yellow NA Color Yellow LAB USG 1.005-1.030 NA Specific Normal [place],Urine 1.015 LAB UPH 5.0-8.0 NA pH,Urine Normal [...] Negative Performed By: #### UAMAC, UAMIC #### [address] [address] #### C/UR #### [employer] [address] URINALYSIS,MICROSCOPIC Collected: Status: F Source: [facility] 06/21/2018 6:29 PM HEALTH SYSTEM REPOSITORY TYPE CODE TESTS RESULT OUT OF REFERENCE UNITS RANGE LAB VOLUR NA 12 Volume,Urine ml LAB WBCU 0-5 /[HPF] 6 WBC,Urine - 10 LAB RBCU 0-2 /[HPF] RBC,Urine Negative LAB EPIU 3-5 /[HPF] 0 Epithelial Cells - 2 LAB CRISTINA Negative NA Bacteria Negative Performed By: #### UAMAC, UAMIC #### [place] [address] #### C/UR #### [address] EMERGENCY DEPARTMENT Observed: 06/17/2018 Status: F Source: [place] SUMMARY 11:46 PM [facility] REPOSITORY [facility] Medical Records Department [address] [place] [address] Emergency Department Summary 06/17/18 2338 MR#: [id number] Acct: [id number] Name: ATTILA DEL CID Rep #: [id number] : 1970 48 From: Attila Johnson MD [...] ureteral colic This note was generated with Pre[employer] dictation software. It may contain incorrect words, [...] problems, contact your Primary Care Provider. Call [facility] ([phone]) or report to the closest Emergency Room. Call 911 if necessary. 06/17/18 9528 <Electronically signed by Attila Johnson MD> Date Attila Johnson MD Cosigner Signature (If Indicated): Date CC: Nyla Bearden MD DISCHARGE INSTRUCTION Observed: 06/17/2018 Status: F Source: [place] 11:46 PM [facility] REPOSITORY [facility] Medical Records Department [address] [place] [address] Discharge Instruction 06/17/183 MR#: [id number] Acct: [id number] Name: ATTILA DEL CID Rep #: [id number] : 1970 48 From: Attila Johnson MD [...] your Primary Care Provider. Call [facility] ([phone]) or report to the closest Emergency Room. Call 911 if necessary. 06/17/18 9646 <Electronically signed by Attila Johnson MD> Date Attila Johsnon MD Cosigner Signature (If Indicated): Date CC: Nyla Bearden MD URINALYSIS, COMPLETE Collected: 06/17/2018 Status: F Source: [place] 10:45 PM [facility] REPOSITORY Order Comment: Order Date: 06/17/18 How [...] AMORPHOUS PHOS Performed By: #### L400.0001 #### [facility] [address], [address] CBC W/DIFF, AUTOMATED Collected: 06/17/2018 Status: F Source: [place] 9:32 PM [facility] REPOSITORY TYPE CODE TESTS RESULT OUT OF [...] Lymph 3.29 Performed By: #### L100.0100 #### [facility] [address] [place], [place], [address] BASIC METABOLIC Collected: 06/17/2018 Status: F Source: [place] PROFILE (BMP) 9:32 PM [facility] REPOSITORY TYPE CODE TESTS RESULT OUT OF [...] GAP 9 Performed By: #### L500.2500 #### [facility] [address] [facility] [place], [address] KIDNEY AND BLADDER Observed: 06/17/2018 Status: F Source: [place] 9:15 PM [facility] REPOSITORY [facility] Imaging Services [address] [place] [address] Kidney and Bladder MR#: [id number] Acct: [id number] Name: ATTILA DEL CID Rep #: [id number] : 1970 M 48 From: Wyatt Kwon MD PCP: Nyla Bearden MD Status: REG ER Study: Kidney and Bladder Date of Exam: 06/17/18 Exam# [id number] Ordering Dr: Attila Johnson MD STUDY: RENAL [...] CC: Attila Johnson MD; Nyla Bearden MD Grill Chef: Signed CNPN Observed: 06/17/2018 Status: COMPLETED Source: [place] 12:00 AM CLINIC OTHER CAMPUS REPOSITORY Telephone (AKURFL) ATTILA DEL CID ([id number]) 1970 [facility] Date Time Provider Department 06/17/18 CAMRON PEREZ During your visit today, we recorded the following information about you: Anais [facility] 06/17/2018 3:59 PM Signed Pt called the office and states he is having painful spasms and wanted to know if you responded to message from yesterday. I told pt message was sent yesterday. If pain gets unmanageable, than he will have to go back to the ER. Pt said he may go to [facility] main this evening. Anais [facility] Camron Perez MD 06/18/2018 9:28 AM Signed [place] with waqas KIM and US prior ; check UA at time of visit Anais [facility] 06/18/2018 2:50 PM Signed Ronel tavera. Anais Upton [facility] Allergies As of Date: 06/17/2018 Noted Allergy Reaction CELEBREX (CELECOXIB) 07/17/2016 11 - Vomiting Comments: Nausea CLONIDINE 07/17/2016 2 - Rash FENTANYL 07/17/2016 8 - GI Upset LEVOFLOXACIN 04/13/2017 2 - Rash Comments: pt reports to [facility] PT --2017 PENICILLIN G 12/30/2013 2 - Rash RELPAX (ELETRIPTAN HBR) 07/17/2016 11 - Vomiting Comments: Nausea TOPAMAX (TOPIRAMATE) 07/17/2016 11 - Vomiting VICODIN (HYDROCODONE-ACETAMINOPHE*12/30/2013 11 - Vomiting WELLBUTRIN (BUPROPION HCL) 07/17/2016 11 - Vomiting Comments: Nausea Date Reviewed: 06/15/2018 Reviewed by: Destiny Sloan) NINA Gallo - Fully Assessed Reason for Visit: [...] ED NOTE Observed: 06/15/2018 Status: COMPLETED Source: [place] 7:38 PM CLINIC OTHER READING REPOSITORY HNO ID: [id number] Author: Berenice AminRn) NINA Pederson Service: (none) Author Type: Registered Nurse Type: ED Notes Filed: 06/15/2018 7:39 PM Note Text: Pt was discharged home he was instructed to follow up with his family medical dr as per needed His was bedside For transport and she was driving him home ED NOTE Observed: 06/15/2018 Status: COMPLETED Source: [place] 6:37 PM [facility] REPOSITORY HNO ID: [id number] Author: Berenice [place]) NINA Pederson Service: (none) Author Type: Registered Nurse Type: ED Notes Filed: 06/15/2018 6:37 PM Note Text: Pt is resting Denies needs is bedside US KIDNEY/BLADDER Observed: 06/15/2018 Status: F Source: [place] 6:34 PM [facility] REPOSITORY * * *Final Report* * * DATE OF EXAM: Jun 15 2018 6:34PM MDU 1055 - US KIDNEY/BLADDER / PROCEDURE REASON: [...] ureter jets are seen. IMPRESSION: Normal study. Grill Chef: NEAL Transcribe Date/Time: Jun 15 2018 6:42P Dictated by : GWEN LEE MD This examination was interpreted and the report reviewed and electronically signed by: GWEN LEE MD on Jun 15 2018 6:43PM EST [id number] EKG Observed: 06/15/2018 Status: F Source: [place] 6:31 PM [facility] OTHER CAMPUS REPOSITORY NAME : ATTILA DEL CID PID : [id number] : 1970 Gender : Male Race : ORD : [id number] Procedure Date : Jun 15 2018 18:31:32 Edit Date : Jun 16 2018 09:10:17 Diagnosis:NORMAL SINUS RHYTHM MINIMAL VOLTAGE CRITERIA FOR LVH, MAY BE NORMAL VARIANT BORDERLINE ECG NO PREVIOUS ECGS AVAILABLE Confirmed by MD CHEEMA CHRISTOPHER ([id number]), dictionary editor Divina Jc ([id number]) on 06/16/2018 9:10:13 AM Ventricular Rate : 83 BPM Atrial Rate : 83 BPM P-R Interval : 154 ms QRS Duration : 78 ms Q-T Interval : 372 ms QTC Calculation(Bezet) : 437 ms P Bon [place]a : 17 degrees R Bon Aqua : 6 degrees T Bon Aqua : 4 degrees Test Reason : Arrhythmia Location : 1 : ER ER19 Overread By : MD CHEEMA CHRISTOPHER Edited By : Divina Jc Referred By : , Acquired by : [place] CARIAS NOTE Observed: 06/15/2018 Status: COMPLETED Source: [place] 6:28 PM [facility] OTHER CAMPUS REPOSITORY HNO ID: [id number] Author: Berenice AminRn) NINA Pederson Service: (none) Author Type: Registered Nurse Type: ED Notes Filed: 06/15/2018 6:28 PM Note Text: Ultrasound is completed ED NOTE Observed: 06/15/2018 Status: COMPLETED Source: [place] 6:14 PM [facility] REPOSITORY HNO ID: [id number] Author: Berenice AminRn) NINA Pederson Service: (none) Author Type: Registered Nurse Type: ED Notes Filed: 06/15/2018 6:14 PM Note Text: Ultrasound is bedside URINALYSIS Collected: 06/15/2018 Status: F Source: [place] 5:49 PM [facility] REPOSITORY TYPE CODE TESTS RESULT OUT OF RANGE REFERENCE UNITS LAB UCOL Yellow Color Abnormal Straw Alert LAB [facility] Clear Clarity Clear LAB UGLUC Negative mg/dL Glucose, Urine Negative LAB UBIL Negative Bilirubin, Urine Negative LAB UKET Negative Ketones, Urine Negative LAB USPG 1.001-1.029 Specific [place], Ur 1.010 LAB UHGB Negative Hemoglobin/Blood, Negative Ur LAB UPH 5.0-8.0 pH 7.5 LAB UPROT Negative mg/dL Protein, Urine Negative LAB UUROB 0.2-1.0 Urobilinogen 0.2 LAB UNITR Negative Nitrites Negative LAB ULKEST Negative Leukest Negative Performed By: #### UA #### [facility] [address] [phone] ED NOTE Observed: 06/15/2018 Status: COMPLETED Source: [place] 5:44 PM [facility] REPOSITORY HNO ID: [id number] Author: Berenice AminRn) NINA Pederson Service: (none) Author Type: Registered Nurse Type: ED Notes Filed: 06/15/2018 5:44 PM Note Text: Pt is sitting on the er bed in a semi comfortable position is bedside AH the PA has rounded CBC AND DIFFERENTIAL Collected: 06/15/2018 Status: F Source: [place] 5:35 PM [facility] OTHER CAMPUS REPOSITORY TYPE CODE TESTS [...] k/uL Abs Lymph 2.82 LAB AMONO % Long% 9.7 LAB AAMONO <0.87 k/uL Abs Long High 1.02 LAB AEOS % Eosin% 0.9 LAB AAEOS <0.46 k/uL Abs Eosin 0.09 LAB ABASO % Baso% 0.5 LAB AABASO <0.11 k/uL Abs Baso 0.05 Performed By: #### CBCDIF, PT, PTT, CMP, LIPA, MG1 #### [facility] [address] [facility] [phone] PROTIME Collected: 06/15/2018 Status: F Source: [place] 5:35 PM CLINIC OTHER CAMPUS REPOSITORY TYPE CODE TESTS RESULT OUT OF RANGE REFERENCE UNITS LAB PSEC 9.7-13.0 sec PT Sec 9.8 LAB INR 0.9-1.3 PT INR 0.9 Result Comment: Vitamin K Antagonist (VKA) Therapeutic Range: INR 2 to 3 (Target INR of 2.5) Note: For patients treated with VKA drugs, such as warfarin, the [place] [employer] 2012 Guideline recommends [...] RAMIREZ, et al. Chest 2012, 141:7S-47S Amy BA, et al. [facility] 2017, 70: 252-289 Performed By: #### CBCDIF, PT, PTT, CMP, LIPA, MG1 #### [facility] [address] [phone] APTT Collected: 06/15/2018 Status: F Source: [place] 5:35 PM [facility]AMP[facility] REPOSITORY TYPE CODE TESTS [...] laboratory APTT reagent in use throughout the [facility]. Performed By: #### CBCDIF, PT, PTT, CMP, LIPA, MG1 #### [facility] [address] [facility] [phone] COMP METABOLIC PANEL Collected: 06/15/2018 Status: F Source: [place] 5:[address] [facility] REPOSITORY TYPE CODE TESTS RESULT OUT OF REFERENCE UNITS RANGE LAB TP 6.3-8.0 g/dL Protein, Total 6.7 LAB ALB 3.9-4.9 g/dL Albumin 3.9 LAB CA 8.5-10.2 mg/dL Calcium, Total 10.0 LAB TBIL 0.2-1.3 mg/dL Bilirubin, Total 0.4 LAB ALKP 36-108 U/L Alkaline Phosphatase 73 LAB AST 14-40 U/L AST 21 LAB GLU 74-99 mg/dL Glucose 95 Result Comment: The [place] Diabetes Association (ADA) provides guidance for cutoff [...] Standards of Medical Care in Diabetes 2016, [place] Diabetes Association. Diabetes Care. 2016.39(Suppl 1). LAB [...] CBCDIF, PT, PTT, CMP, LIPA, MG1 #### [facility] [address] [place] [address] LIPASE Collected: 06/15/2018 Status: F Source: [place] 5:35 PM [facility] REPOSITORY TYPE CODE TESTS RESULT OUT OF REFERENCE UNITS RANGE LAB LIPA 16-61 U/L Lipase 47 Performed By: #### CBCDIF, PT, PTT, CMP, LIPA, MG1 #### [facility] [address] [place] [address] MAGNESIUM Collected: 06/15/2018 Status: F Source: [place] 5:35 PM [facility] REPOSITORY TYPE CODE TESTS RESULT OUT OF REFERENCE UNITS RANGE LAB MG 1.7-2.3 mg/dL Magnesium 1.9 Performed By: #### CBCDIF, PT, PTT, CMP, LIPA, MG1 #### [facility] [address] [facility] [phone] TROPONIN T Collected: 06/15/2018 Status: F Source: [place] 5:35 PM [facility] OTHER CAMPUS REPOSITORY TYPE CODE TESTS RESULT OUT OF REFERENCE UNITS RANGE LAB TROPT 0.000-0.029 ng/mL Troponin T <0.010 Performed By: #### NARGIS #### [facility] [address] [facility] [phone] ED PROV NOTE Observed: 06/15/2018 Status: COMPLETED Source: [place] 5:21 PM [facility] REPOSITORY HNO ID: [id number] Author: Brendan Kahn III Service: (none) Author Type: Physician Paving And Surfacing Labourer Type: ED Provider Notes Filed: 06/15/2018 7:02 [...] SURGERY HX Right 03/2017 patella replacement - CT ANESTH,KNEE JOINT; NOS 12/2017 Left Medications: No [...] Abs Lymph 2.82 1.00 - 4.00 k/uL Long% 9.7 % Abs Long 1.02 (H) <0.87 k/uL Eosin% 0.9 % Abs Eosin 0.09 <0.46 k/uL Baso% 0.5 % Abs Baso 0.05 <0.11 k/uL URINALYSIS Result Value Ref Range Color Straw (A) Yellow Appearance (U) Clear Clear Glucose, Urine Negative Negative mg/dL Bilirubin, Urine Negative Negative Ketones, Urine Negative Negative Specific [place], Ur 1.010 1.001 - 1.029 Hemoglobin/Blood,Ur Negative [...] US KIDNEY/BLADDER Final Result IMPRESSION: Normal study. Grill Chef: NEAL Transcribe Date/Time: Jun 15 2018 6:42P Dictated by : GWEN ELE MD This examination was interpreted and the [...] discussed with Dr Cheema SIGNATURE: KEYLA Huang III, Pa-C, III 06/15/18 190 ED NOTE Observed: 06/15/2018 Status: COMPLETED Source: [place] 5:10 PM [facility] OTHER [facility] REPOSITORY HNO ID: [id number] Author: Destiny AminRnLaurel Gallo RN Service: (none) Author Type: Registered Nurse Type: ED Notes Filed: 06/15/2018 5:10 PM Note Text: Patient presents to ED with complaints of flank pain CASE MANAGEM Observed: 06/04/2018 Status: COMPLETED Source: [place] 4:32 PM [facility] OTHER [facility] REPOSITORY HNO ID: [id number] Author: Maria Luz Livingston RN Service: Case Management Author Type: Registered [...] during this admission? No HANDOFF COMMUNICATION: bedside NINA Encinas TRANSPORTATION ARRANGEMENTS: Car Family ADDITIONAL CONTACT RESOURCES: Discharge Information Row Name ED to Hosp-Admission (Current) from 06/01/2018 in [facility] Follow-Up Appointment Specialty PCP Provider Name Nyla Bearden MD Address [address], [facility] [address] Phone Number [phone] Appointment Date 06/10/18 Appointment Time 2:00pm Additonal Instructions Patient should bring the following to appointment: Picture ID, Insurance Card, Copay (if applicable), Medications/Med List. Please provide a minimum of 24 hours' notice for cancelations/rescheduling. Please arrive 15 minutes prior to your appointment. SIGNATURE: Maria Luz Livingston RN PATIENT NAME: Attila Del Cid DATE: June 04, 2018 TIME: 4:32 PM PAGER/CONTACT #: [phone] CNDS Observed: 06/04/2018 Status: COMPLETED Source: [place] 4:04 PM CLIN[facility] OTHER CAMPUS REPOSITORY HNO ID: [id number] Author: Jude Reddy Service: General Internal Medicine [...] Upset - Levofloxacin Rash pt reports to [facility] PT 04-13-2017 - Penicillin G Rash - Relpax [Eletriptan * Vomiting Nausea - Topamax [Topiramate] Vomiting - Vicodin [Hydrocodon* Vomiting - Wellbutrin [Bupropi* Vomiting Nausea DISCHARGE MEDICATION: Current Discharge Medication List START taking these medications divalproex DR (DEPAKOTE) 250 mg Take 250 mg by [...] ED to Hosp-Admission (Current) from 06/01/2018 in [facility] Medical Follow-Up Appointment Specialty PCP Provider Name Nyla Bearden MD Address [address], [place] [address] Phone Number [phone] Appointment Date 06/10/18 Appointment Time 2:00pm Additonal [...] min SIGNATURE: Jude Reddy MD PAGER/CONTACT #: [phone] DATE: June 04, 2018 TIME: 4:04 PM NURSING PROG Observed: 06/04/2018 Status: COMPLETED Source: [place] 2:32 PM [facility] OTHER CAMPUS REPOSITORY HNO ID: [id number] Author: Ce (Rn) NINA Anderson Service: (none) Author Type: Registered Nurse Type: Nursing Progress Note Filed: 06/04/2018 2:34 PM Note Text: Nursing Progress Note Patient Name: Attila Del Cid Patient Location: [id number] Daily Note: 14[address] Amador discuss patient and plan of care. Dr. Reddy states there is not longer a need for neurological checks or NIH stroke scale. Discharge anticipated. I will continue to monitor patient. This note was completed by: Ce Anderson RN PROGRESS Observed: 06/04/2018 Status: COMPLETED Source: [place] 1:54 AM [facility] REPOSITORY HNO ID: [id number] Author: Mariah Rivera) Cynthia Service: Hospital Medicine [...] AM CNCO Observed: 06/04/2018 Status: COMPLETED Source: [place] 12:00 AM [facility] REPOSITORY Letter Text June 04, 2018 Attila Del Cid [address] [place] [address] Dear Mr. Del Cid, The nurses and staff of [facility] hope this letter finds you feeling well [...] stay, please feel free to contact me, Sherin Kent RN ([phone]) or email me at, Additionally, you will receive a survey in [...] participation and thank you for choosing the [facility] for your health needs. Sincerely, Nurse Manager Web: Sherin Kent RN ([phone]) [facility] Unit: 2 North Letter Text June 05, 2018 Department of Hospital Medicine [address] [place] [address] Re: Attila Del Cid Dear Dr. Bearden: A patient of your practice, Attila K Pegdolores (: 1970) was treated at [facility] under the care of the [facility] Department of Hospital Medicine, and discharged on 06/04/2018. A transcribed discharge summary should be forthcoming promptly. If you need additional information or assistance, you may contact the Department of Hospital Medicine at [phone] during regular business hours, and we?ll be happy to assist you. Best Regards, René Dumont [facility] [place] MEDICINE Observed: 06/03/2018 Status: F Source: [place] OFFICE VISIT 9:19 AM [facility] Internal Medicine [address] [place] [address] [place] [address] OFFICE VISIT Date of Service: 05/30/18 MR#: [id number] Acct: [id number] Name: MARIA EUGENIAATTILA Abreu Rep #: [id number] : 1970 Provider: Tawanda Colon NP Age/Sex: 48/M Location: [facility] Status: Signed Intake Vital Signs05/30/18 Height 5 [...] sleep apnea) (Chronic) Atherosclerotic heart disease of [place] coronary artery without angina pectoris (Chronic) Nephrolithiasis [...] states that on 05/29/2018 he presented to [facility] emergency department with complaints of chest pain [...] acute distress Orientation: alert, awake, oriented x3 [facility] Head: atraumatic, normocephalic Ears: hearing grossly normal [...] the outpatient behavioral health center program at [facility]. Orders Referrals: 2. Chest pain R07.9 Plan [...] KLEIN Cosigner Signature: Date (if applicable) CC: CL Observed: 06/03/2018 Status: COMPLETED Source: [place] 12:00 AM [facility] MAIN CAMP[facility] REPOSITORY Letter Text June 03, 2018 Department of Hospital Medicine [address] [place] [address]/[place] [address] Regarding: Attila Del Cid (: 1970) Dear Dr. Bearden: A patient of your practice, Attila Del Cid, was admitted on 06/01/2018 to [facility] under the services of the Department of Hospital Medicine, and is currently under the care of Dr. Reddy. We look forward to collaborating with you regarding his care. If you have any questions or concerns, please call us in the Department of Hospital Medicine at [facility], at [phone]. Best Regards, René [facility] ED Observed: 06/02/2018 Status: COMPLETED Source: [place] 4:43 PM [facility] REPOSITORY HNO ID: [id number] Author: Trinity Veliz (Pharmacy Resdient) Service: Pharmacy Author Type: Pharmacist Type: Patient Education Filed: 06/02/2018 4:45 PM Note Text: PATIENT EDUCATION TOPIC: TIA PATIENT LOCATION: [id number] Attila Del Cid [id number] TEACHING POINTS: Activation of EMS for Stroke [...] REFERRAL (RECOMMENDATION): None Electronically Signed By: TRINITY VELIZ, WEDDING MAKEUP ARTIST PROGRESS Observed: 06/02/2018 Status: COMPLETED Source: [place] 3:41 PM CLINIC OTHER CAMPUS REPOSITORY O ID: [id number] Author: Jude Ludivina Service: General Internal Medicine Author Type: Physician [...] 1500 vte non-pharmacologic prophylaxis - none indicated (md,oh) 06/01/18 1500 vte current anticoag therapy (md,ne) 06/01/18 1500 activity - mobilize patient (md,ne) VTE Prophylaxis: VTE prophylaxis appropriate SIGNATURE: Jude Reddy MD PATIENT NAME: Attila Del Cid DATE: June 02, 2018 TIME: 3:41 PM PAGER/CONTACT #: [phone] CASE MGT INIT Observed: 06/02/2018 Status: COMPLETED Source: [facility] 2:23 PM CLINIC OTHER CAMPUS REPOSITORY HNO ID: [id number] Author: Maria Luz SloanLaurel Livingston RN Service: Case Management Author Type: Registered Nurse Type: Care Mgt Initial Assessment Filed: 06/02/2018 2:28 PM Note Text: CARE MANAGEMENT: ASSESSMENT AND DISCHARGE PLAN SERVICE DATE: 06/02/2018 SERVICE TIME: 2:23 PM PRIMARY CARE PHYSICIAN: Nyla Bearden MD Confirmed , likes afternoons any day for follow up. 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 No Advance Directive: Current Advance Directive: None Maternity Floor Supervisor Assisted with AD Completion: Yes Action: Education [...] CPAP Has the Patient Been in a [facility] Facility in the Past 30 days? No SOCIAL: Living Arrangement: Home Lives With: SIG Financial Resources: Disabled Primary Contact: Extended Emergency Contact Information Primary Emergency Contact: EdilbertoJonah Address: [address] [place] [address] [facility] Relation: Significant other Supportive: Yes Other Important [...] 0 I feel financially burdened by my [id number] expenses for my prescription medication: Disagree mostly -0 Patient is categorized as low risk < 2 Are you interested in bedside delivery of your medications? Yes , uses [employer] Concerns: In the Last Month, Have [...] TRANSITION PLANS Home To Be Determined Bedside NINA Obrien SIGNATURE: Maria Luz Livingston RN PATIENT NAME: Attila Del Cid DATE: June 02, 2018 TIME: 2:23 PM PAGER/CONTACT #: [phone] 12 LEAD ELECTROCARDIOGRAM Observed: 06/02/2018 Status: F Source: [place] 2:00 PM [facility] REPOSITORY [facility] Cardiovascular Services [address] [place] [address] 12 Lead EKG 05/29/18 1619 MR#: [id number] Acct: [id number] Name: ATTILA DEL CID Rep #: [id number] : 1970 48 From: Jesse Stokes MD [...] Sinus tachycardia Otherwise normal ECG Confirmed by JESSE STOKES MD ([id number]), dictionary editor RICCO LEWIS ([id number]) on 06/02/2018 2:00:04 PM Referred By: /RU Confirmed By:JESSE STOKES MD 06/02/18 1400 Date Jesse Stokes MD CC: Nyla Bearden MD; Graham Mendoza DO Signed CONSULT Observed: 06/02/2018 Status: COMPLETED Source: [place] 1:53 PM CLINIC OTHER CAMPUS REPOSITORY HNO ID: [id number] Author: Lucero Amador Service: Neurology Author Type: Physician Type: Consults Filed: 06/02/2018 2:19 PM Note Text: INITIAL CONSULT NEURO STROKE SERVICE DATE: 06/02/2018 PCP: Nyla Bearden MD REASON FOR STROKE EVALUATION: diplopia dizziness and headache Subjective HPI: 48 year old male with hx of AFIB on anticoagulation, ascending aortic aneurysm, kidney stone, HTN, dyslipidemia, Migraine headache ,Hearing loss bilaterally ,obesity who presents to [place] ER for diplopia ,blurred vision, FANG which [...] SURGERY HX Right 03/2017 patella replacement - CT ANESTH,KNEE JOINT; NOS 12/2017 Left Social History [...] Upset - Levofloxacin Rash pt reports to [facility] PT 04-13-2017 - Penicillin G Rash - [...] THERAPY NT Observed: 06/02/2018 Status: COMPLETED Source: [place] 1:29 PM [facility]IN[facility] OTHER CAMPUS REPOSITORY HNO ID: [id number] Author: Jaquan (Pt) Eveline Service: Physical Therapy Author Type: Physical Therapist Type: Therapy (PT/OT/Speech/Resp) Filed: 06/02/2018 1:51 PM Note Text: Physical Therapy Evaluation SERVICE DATE: 06/02/2018 SERVICE TIME: 1109 to 1141 ROOM: [place] [address] Recommended Discharge Disposition: Home Recommended Discharge Disposition Comments: Patient demonstrating safe basic mobility for homegoing with supervision from ance. Recommend reinforcement of instruction to attend to [...] Unsteadiness on feet Interventions Provided: Evaluation;Therapeutic Activity (06425) $ Evaluation-Low (33595) Billed Units: 1 unit Therapeutic Activity (04638) Treatment Minutes: 10 1 unit Skilled Intervention(s): [...] G CODE: PT 6 Clicks Score: 24 (06/02/181108) $ Mobility: Walking and Moving Around Current Status (G8978): (06/02/181108) $ Mobility: Walking and Moving Around Goal Status (G8979): (06/02/181108) $ Mobility: Walking and Moving Around Discharge Status (G8980): (06/02/181108) Based on clinical assessment and the score [...] Lives With: Significant Other (fiance) Assistance Available: night time babysitter Entry To Home: Stairs;With Rail Number Of Stairs Into Home: 6 (5+1) Number Of Stairs To Bed/Bath: 5 Stairs to Bed/Bath with: Unilateral Rail Equipment Owned: Cane;Crutch(es);Wheeled Walker Prior Functional Level: Within Functional Limits (Indep amb no device, ADLs,disability,+home remodeling, TV) OBJECTIVE: Range Of Motion: Within Functional Limits (BUE/LE; reports soreness w/R shldr motions) Strength: Within Functional Limits (grossly 4-/5 B shldr, road conductor, 4/5 B elb,LE) Vital Signs Intra Assessment [...] NURSING PROG Observed: 06/02/2018 Status: COMPLETED Source: [place] 12:26 PM [facility] OTHER CAMPUS REPOSITORY O ID: [id number] Author: Camille (Rn) NINA Hinds Service: (none) Author Type: Registered Nurse Type: Nursing Progress Note Filed: 06/02/2018 6:23 PM Note Text: Nursing Progress Note Patient Name: Attila Del Cid Patient [facility]: [facility]0268/[id number] Daily Note:0740: Pt off of floor at [...] RN EKG Observed: 06/02/2018 Status: F Source: [place] 12:17 PM [facility] REPOSITORY NAME : ATTILA DEL CID PID : [id number] : 1970 Gender : Male Race : ORD : [id number] Procedure Date : Jun 02 2018 12:17:09 Edit Date : Jun 02 2018 14:17:57 Diagnosis:NORMAL SINUS RHYTHM NORMAL ECG WHEN COMPARED WITH ECG OF 01-JUN-2018 10:02, NO SIGNIFICANT CHANGE WAS FOUND Confirmed by MD STROUD QARAB ([id number]) on 06/02/2018 2:17:50 PM Ventricular Rate : 60 BPM Atrial Rate : 60 BPM P-R Interval : 170 ms QRS Duration : 94 ms Q-T Interval : 420 ms QTC Calculation(Bezet) : 420 ms P Bon Aqua : 14 degrees R Bon Aqua : 15 degrees T Bon Aqua : 12 degrees Test Reason : Arrhythmia Location : 3 : 2N 268 Overread By : MD STROUD QARAB Edited By : MD STROUD QARAB Referred By : HOSPITALIST, Acquired by : SALUD MERAZ Observed: 06/02/2018 Status: COMPLETED Source: [place] 10:11 AM [facility] REPOSITORY HNO ID: [id number] Author: Layne Boswellr/Darlene Reyes Service: Occupational Therapy Author Type: Occupational Therapist Type: Therapy (PT/OT/Speech/Resp) Filed: 06/02/2018 10:14 AM Note Text: OCCUPATIONAL THERAPY MISSED VISIT SERVICE DATE: 06/02/2018 SERVICE TIME: 1011 to 1011 ROOM: [id number] Attempted Evaluation. Patient not seen due to [...] discontinue OT order at this time. SIGNATURE: EDGARDO Patiño/Lynette PATIENT NAME: Attila Del Cid DATE: June 02, 2018 TIME: 10:11 AM MRI BRAIN WO IVCON Observed: 06/02/2018 Status: F Source: [place] 10:00 AM CLINIC OTHER CAMPUS REPOSITORY * * *Final Report* * * DATE OF EXAM: Jun 02 2018 10:00AM [facility] 0294 - MRI BRAIN WO IVCON / [...] are unremarkable. IMPRESSION: No acute intracranial abnormality. Grill Chef: PSCTrey Transcribe Date/Time: Jun 02 2018 3:25P Dictated by : SHAMA CHAPARRO MD This examination was interpreted and the report reviewed and electronically signed by: SHAMA CHAPARRO MD on Jun 02 2018 3:29PM EST [id number] THERAPY NT Observed: 06/02/2018 Status: COMPLETED Source: [place] 8:23 AM [facility] REPOSITORY HNO ID: [id number] Author: Layne AminOtr/LLaurel Reyes Service: Occupational Therapy Author Type: Occupational Therapist Type: Therapy (PT/OT/Speech/Resp) Filed: 06/02/2018 8:24 AM Note Text: OCCUPATIONAL THERAPY MISSED VISIT SERVICE DATE: 06/02/2018 SERVICE TIME: 822 to 822 ROOM: [id number] Attempted Evaluation. Patient not seen due to Another service at bedside (Speech Therapy). Will attempt as able. SIGNATURE: EDGARDO Patiño/Lynette PATIENT NAME: Attila Del Cid DATE: June 02, 2018 TIME: 8:23 AM THERAPY NT Observed: 06/02/2018 Status: COMPLETED Source: [place] 8:00 AM [facility] REPOSITORY HNO ID: [id number] Author: Agatha (Coordinator Of Placement) Edmundo Thao [facility] Service: Speech/Swallow Author Type: Speech Language Pathologist Type: Therapy (PT/OT/Speech/Resp) Filed: 06/02/2018 8:55 AM Note Text: Speech Therapy Speech Evaluation, Clinical Swallow Evaluation SERVICE DATE: 06/02/2018 SERVICE TIME: 08 to 0845 ROOM: [place] [address] Diet Recommendations: Regular Consistency;Thin liquids Swallowing Precautions [...] Skilled Need Interventions Provided: Speech Language Eval (98819);Clinical Swallow Evaluation (33903) $ Speech Language Eval (85698) Billed Units: 1 unit Assessment of the patient's Expressive / Receptive Language skills within the acute care setting is completed to determine patient's ability to effectively communicate ADL needs and potential need for additional therapeutic intervention $ Clinical Swallow Evaluation (68498) Billed Units: 1 unit Clinical Swallowing assessment completed to determine the patient's current swallowing skills and potential need for additional diagnostics and/or therapeutic intervention. Total Treatment Time (minutes): 45 FUNCTIONAL G CODE: $ Spoken Language Expression Current Status (G9162): CH (06/02/18 08) $ Spoken Language Expression Goal Status (G9163): (06/02/18799) $ Spoken Language Expression Discharge Status (G9164): (06/02/18 08) Based on clinical assessment and the score [...] for this therapy evaluation/treatment. SIGNATURE: Agatha Thao [facility] PATIENT NAME: Attila Del Cid DATE: June 02, 2018 TIME: 8:52 AM PAGER: [phone] LIPID PANEL, BASIC Collected: 06/02/2018 Status: F Source: [place] 5:52 AM CLINIC OTHER CAMPUS REPOSITORY TYPE [...] Desk Reference: National Heart, Lung, and Blood [place]. National Institutes of Health. 2001: NIH Publication No. 01-3305. 2. An International Atherosclerosis Society position paper: global recommendations for the management of dyslipidemia: executive summary, Atherosclerosis. 2014: 232(2):410-413. Performed By: #### LIPB #### [facility] [address] [place] [id number] NURSING PROG Observed: 06/01/2018 Status: COMPLETED Source: [place] 10:51 PM [facility] REPOSITORY HNO ID: [id number] Author: Angela AminRn) NINA Johnson Service: (none) Author Type: Registered Nurse Type: Nursing Progress Note Filed: 06/02/2018 6:14 AM Note Text: Nursing Progress Note Patient Name: Attila Del Cid Patient [facility]: [facility]0268/[id number] Daily Note: 1900: Bedside report received. Pt [...] HISTORY PHYSICAL Observed: 06/01/2018 Status: COMPLETED Source: [place] 9:48 PM [facility] REPOSITORY HNO ID: [id number] Author: Mariah Rivera) Thuestad Service: Hospital Medicine Author Type: Physician Type: HANDP Filed: 06/01/2018 10:06 PM Note Text: HOSPITAL MEDICINE HISTORY AND PHYSICAL EXAM PATIENT NAME: Attila Del Cid SERVICE DATE: 06/01/2018 SERVICE TIME: 9:48 PM Primary Care Physician: Nyla Bearden MD NIGHT COVERAGE Page [phone] for any questions between 5.30p-7.30a ASSESSMENT AND PLAN Active Hospital Problems Diagnosis - TIA (transient ischemic attack) - Atypical chest pain - Ectatic thoracic aorta (HCC) ascending aorta - Kidney stones - Atrial fibrillation (HCC) 09/2017 Dr. Suzanne HAMILTONU to complete atrial ablation 10/09/2017. On Eliquis. [...] stone, HTN, dyslipidemia, obesity who presents to [place] ER for chest pain, blurred vision, FANG [...] SURGERY HX Right 03/2017 patella replacement - CT ANESTH,KNEE JOINT; NOS 12/2017 Left FAMILY HISTORY: [...] Upset - Levofloxacin Rash pt reports to [facility] PT 04-13-2017 - Penicillin G Rash - [...] TROPONIN T Collected: 06/01/2018 Status: F Source: [place] 4:36 PM CLINIC OTHER CAMPUS REPOSITORY TYPE CODE TESTS RESULT OUT OF REFERENCE UNITS RANGE LAB TROPT 0.000-0.029 ng/mL Troponin T <0.010 Performed By: #### NARGIS #### [facility] [address] [facility] [phone] NURSING PROG Observed: 06/01/2018 Status: COMPLETED Source: [place] 3:00 PM [facility] REPOSITORY HNO ID: [id number] Author: Kelsi AminRn) NINA Vu Service: Nursing Author Type: Registered Nurse Type: Nursing Progress Note Filed: 06/01/2018 4:11 PM Note Text: Nursing Progress Note Patient Name: Attila Del Cid Patient Location: [place] [address]/[id number]- Daily Note: Pt AANDO x 3, calm [...] This note was completed by: Kelsi Vu, BAG END SEWER NOTE Observed: 06/01/2018 Status: COMPLETED Source: [place] 1:28 PM [facility] REPOSITORY HNO ID: [id number] Author: Anais AminRn) NINA Savage Service: (none) Author Type: Registered Nurse Type: ED Notes Filed: 06/01/2018 1:28 PM Note Text: Called to floor for report, Kelsi asked if she could call me back in 10 minutes, they just had a on the floor. CT CHEST JOHNNIE CÁRDENAS Observed: 06/01/2018 Status: F Source: [place] 12:38 PM [facility] REPOSITORY * * *Final Report* * * DATE OF EXAM: Jun 01 2018 12:38PM [facility] 0541 - CT CHEST [...] No significant change since the comparison study. Grill Chef: NEAL Transcribe Date/Time: Jun 01 2018 12:46P Dictated by : JUNG AYON MD This examination was interpreted and the report reviewed and electronically signed by: JNUG AYON MD on Jun 01 2018 12:48PM EST [id number] ED NOTE Observed: 06/01/2018 Status: COMPLETED Source: [place] 12:06 PM [facility] REPOSITORY HNO ID: [id number] Author: Anais AminRn) NINA Savage Service: (none) Author Type: Registered Nurse Type: ED Notes Filed: 06/01/2018 12:06 PM Note Text: Patient has been to and from CT scan ED NOTE Observed: 06/01/2018 Status: COMPLETED Source: [place] 11:25 AM [facility] REPOSITORY HNO ID: [id number] Author: Anais AminRn) NINA Savage Service: (none) Author Type: Registered Nurse Type: ED Notes Filed: 06/01/2018 11:32 AM Note Text: Clean catch urine specimen obtained and sent. URINALYSIS Collected: 06/01/2018 Status: F Source: [place] 11:25 AM [facility] REPOSITORY TYPE CODE TESTS RESULT OUT OF REFERENCE UNITS RANGE LAB UCOL Yellow Color Yellow LAB [facility] Clear Clarity Clear LAB UGLUC Negative mg/dL Glucose, Urine Negative LAB UBIL Negative Bilirubin, Urine Negative LAB UKET Negative Ketones, Urine Negative LAB USPG 1.001-1.029 Specific [place], Ur 1.010 LAB UHGB Negative Hemoglobin/Blood, Negative Ur LAB UPH 5.0-8.0 pH 6.5 LAB UPROT Negative mg/dL Protein, Urine Negative LAB UUROB 0.2-1.0 Urobilinogen 0.2 LAB UNITR Negative Nitrites Negative LAB ULKEST Negative Leukest Negative Performed By: #### UA #### [facility] [address] [phone] CTA NECK W IVCON Observed: 06/01/2018 Status: F Source: [place] 11:14 AM [facility] OTHER CAMPUS REPOSITORY * * *Final Report* * * DATE OF EXAM: Jun 01 2018 11:14AM [facility] 0024 - CTA NECK [...] codominant. Vertebrobasilar Circulation: configuration of the right MANAGER [employer] with hypoplastic right P1 segment. Distal vertebral arteries (right dominant), basilar trunk and c architect are otherwise normal in caliber. Proximal SCAs, [...] by NASCET criteria. Patent cervical vertebral arteries. Grill Chef: NEAL Transcribe Date/Time: Jun 01 2018 11:04A Dictated by : CARLOS GUTIERREZ MD This examination was interpreted and the report reviewed and electronically signed by: CARLOS GUTIERREZ MD on Jun 01 2018 11:18AM EST [id number] CTA HEAD W IVCON Observed: 06/01/2018 Status: F Source: [place] 11:14 AM [facility] OTHER CAMPUS REPOSITORY * * *Final Report* * * DATE OF EXAM: Jun 01 2018 11:14AM [facility] 0022 - CTA HEAD [...] codominant. Vertebrobasilar Circulation: configuration of the right [employer] with hypoplastic right P1 segment. Distal vertebral arteries (right dominant), basilar trunk and c architect are otherwise normal in caliber. Proximal SCAs, [...] by NASCET criteria. Patent cervical vertebral arteries. Grill Chef: [facility] Transcribe Date/Time: Jun 01 2018 11:04A Dictated by : CARLOS GUTIERREZ MD This examination was interpreted and the report reviewed and electronically signed by: CARLOS GUTIERREZ MD on Jun 01 2018 11:18AM EST [id number] CT BRAIN WO IVCON Observed: 06/01/2018 Status: F Source: [place] 11:14 AM [facility] CAMP[facility] REPOSITORY * * *Final Report* * * DATE OF EXAM: Jun 01 2018 11:14AM [facility] 0504 - CT BRAIN [...] codominant. Vertebrobasilar Circulation: configuration of the right [employer] with hypoplastic right P1 segment. Distal vertebral arteries (right dominant), basilar trunk and c architect are otherwise normal in caliber. Proximal SCAs, [...] by NASCET criteria. Patent cervical vertebral arteries. Grill Chef: NEAL Transcribe Date/Time: Jun 01 2018 11:04A Dictated by : CARLOS GUTIERREZ MD This examination was interpreted and the report reviewed and electronically signed by: CARLOS GUTIERREZ MD on Jun 01 2018 11:18AM EST [id number] ED PROV NOTE Observed: 06/01/2018 Status: COMPLETED Source: [place] 11:08 AM [facility] OTHER [facility] REPOSITORY HNO ID: [id number] Author: Dennis Alford MD Service: (none) Author [...] SURGERY HX Right 03/2017 patella replacement - CT ANESTH,KNEE JOINT; NOS 12/2017 Left FAMILY HISTORY [...] Upset - Levofloxacin Rash pt reports to [facility] PT 04-13-2017 - Penicillin G Rash - [...] NIHSS NIHSS - Initial or Subsequent? Initial - NIHSS Initial - LIP ENTRY ONLY !!!!! [...] Motor Right Arm 0 - no drift -EH Motor Left Leg 0 - no drift -EH Motor Right Leg 0 - no drift [...] get read prior to admit to r/o MN or stroke, give ASA after. The attending who evaluated and managed this patient was Dennis Alford . Plan: The patient was admitted to Regular nursing floor. Case discussed with admitting physician, Dr. Desai. Consent: A procedure or transfusion was performed - No Dennis Alford MD SIGNATURE: MD Dennis Ram MD 06/01/18 1245 ED NOTE Observed: 06/01/2018 Status: COMPLETED Source: [place] 10:44 AM [facility] REPOSITORY HNO ID: [id number] Author: Diana (Rn) NINA Minor Service: (none) Author Type: Registered Nurse Type: ED Notes Filed: 06/01/2018 10:44 AM Note Text: Patient transported to [facility] scan with Tech. ED NOTE Observed: 06/01/2018 Status: COMPLETED Source: [place] 10:44 AM [facility] OTHER [facility]AMP[facility] REPOSITORY HNO ID: [id number] Author: Diana AminRn) NINA Minor Service: (none) Author Type: Registered Nurse Type: ED Notes Filed: 06/01/2018 10:44 AM Note Text: Patient aware that a urine specimen is needed. Urinal given. ED NOTE Observed: 06/01/2018 Status: COMPLETED Source: [place] 10:21 AM [facility] REPOSITORY HNO ID: [id number] Author: Diana AminRn) NINA Minor Service: (none) Author Type: Registered Nurse Type: ED Notes Filed: 06/01/2018 10:21 AM Note Text: Dr Alford at bedside ED NOTE Observed: 06/01/2018 Status: COMPLETED Source: [place] 10:08 AM [facility] REPOSITORY HNO ID: [id number] Author: Diana AminRn) NINA Minor Service: (none) Author Type: Registered Nurse Type: ED Notes Filed: 06/01/2018 10:08 AM Note Text: Labs were drawn and sent. CBC AND DIFFERENTIAL Collected: 06/01/2018 Status: F Source: [place] 10:04 AM [facility] REPOSITORY TYPE CODE TESTS [...] k/uL Abs Lymph 2.24 LAB AMONO % Long% 10.3 LAB AAMONO <0.87 k/uL Abs Long 0.65 LAB AEOS % Eosin% 1.9 LAB AAEOS <0.46 k/uL Abs Eosin 0.12 LAB ABASO % Baso% 0.6 LAB AABASO <0.11 k/uL Abs Baso 0.04 Performed By: #### CBCDIF, CMP, MG1, PT, PTT #### [facility] [address] [phone] COMP METABOLIC PANEL Collected: 06/01/2018 Status: F Source: [place] 10:04 AM [facility] OTHER CAMPUS REPOSITORY TYPE [...] 74-99 mg/dL Glucose 90 Result Comment: The [place] Diabetes Association (ADA) provides guidance for cutoff [...] Standards of Medical Care in Diabetes 2016, [place] [employer]. Diabetes Care. 2016.39(Suppl 1). LAB [...] #### CBCDIF, CMP, MG1, PT, PTT #### [facility] [address] [phone] MAGNESIUM Collected: 06/01/2018 Status: F Source: [place] 10:04 AM [facility] REPOSITORY TYPE CODE TESTS RESULT OUT OF REFERENCE UNITS RANGE LAB MG 1.7-2.3 mg/dL Magnesium 2.0 Performed By: #### CBCDIF, CMP, MG1, PT, PTT #### [facility] [address] [place] [address] PROTIME Collected: 06/01/2018 Status: F Source: [place] 10:04 AM [facility] REPOSITORY TYPE CODE TESTS RESULT OUT OF RANGE REFERENCE UNITS LAB PSEC 9.7-13.0 sec PT Sec 10.3 LAB INR 0.9-1.3 PT INR 1.0 Result Comment: Vitamin K Antagonist (VKA) Therapeutic Range: INR 2 to 3 (Target INR of 2.5) Note: For patients treated with VKA drugs, such as warfarin, the [place] [employer] 2012 Guideline recommends [...] Chest 2012, 141:7S-47S Amy RA, et al. [facility] 2017, 70: 252-289 Performed By: #### CBCDIF, CMP, MG1, PT, PTT #### [facility] [address] [place] [phone] APTT Collected: 06/01/2018 Status: F Source: [place] 10:04 [facility] OTHER READING REPOSITORY TYPE CODE TESTS RESULT OUT OF [...] laboratory APTT reagent in use throughout the [facility]. Performed By: #### CBCDIF, CMP, MG1, PT, PTT #### [facility] [address] [place] [phone] TROPONIN T Collected: 06/01/2018 Status: F Source: [place] 10:04 [facility] REPOSITORY TYPE CODE TESTS RESULT OUT OF REFERENCE UNITS RANGE LAB TROPT 0.000-0.029 ng/mL Troponin T <0.010 Performed By: #### NARGIS #### [facility] [address] [place] [phone] NT PRO BNP Collected: 06/01/2018 Status: F Source: [place] 10:04 [facility] REPOSITORY TYPE CODE TESTS RESULT OUT OF REFERENCE UNITS RANGE LAB PBNP <125 pg/mL PRO B Natr 30 Peptide Performed By: #### NTBNP, CKCKMB #### [facility] [address] [place] [phone] CK, TOTAL AND CKMB Collected: 06/01/2018 Status: F Source: [place] 10:04 [facility] OTHER READING REPOSITORY TYPE CODE TESTS RESULT OUT OF REFERENCE UNITS RANGE LAB CK 51-298 U/L 65 CK LAB MB <7.7 ng/mL MB 1.1 LAB CKMBRI 0.0-4.0 % CK CK MB MB % not % reported with CK <100 U/L. Performed By: #### NTBNP, CKCKMB #### [facility] [address] [phone] HEMOGLOBIN A1C Collected: 06/01/2018 Status: F Source: [place] 10:04 AM [facility] REPOSITORY TYPE CODE TESTS RESULT OUT OF REFERENCE UNITS RANGE LAB HGBA1C 4.3-5.6 % Hemoglobin A1c 5.2 LAB HBA0 mg/dL Est. Average Glucose 103 Result Comment: eAG: (Estimated average glucose) is a calculated value from HgbA1c and is territory sales representative of the average blood glucose level in the last 2-3 month period. Performed By: #### HBA1C #### [facility] [address] [place] [phone] EKG Observed: 06/01/2018 Status: F Source: [place] 10:02 AM [facility] REPOSITORY NAME : ATTILA DEL CID PID : [id number] : 1970 Gender : Male Race : ORD : [id number] Procedure Date : Jun 01 2018 10:02:36 Edit Date : Jun 02 2018 14:25:38 Diagnosis:NORMAL SINUS RHYTHM MODERATE VOLTAGE CRITERIA FOR LVH, MAY BE NORMAL VARIANT BORDERLINE ECG WHEN COMPARED WITH ECG OF 27-MAY-2018 16:52, NO SIGNIFICANT CHANGE WAS FOUND Confirmed by MD STROUD QARAB ([id number]) on 06/02/2018 2:25:32 PM Ventricular Rate : 70 BPM Atrial Rate : 70 BPM P-R Interval : 158 ms QRS Duration : 82 ms Q-T Interval : 398 ms QTC Calculation(Bezet) : 429 ms P Bon Aqua : 1 degrees R Bon Aqua : -3 degrees T Bon Aqua : -1 degrees Test Reason : Arrhythmia Location : 1 : ER 0268 Overread By : MD STROUD QARAB Edited By : MD STROUD QARAB Referred By : , Acquired by : [place] MINOR NOTE Observed: 06/01/2018 Status: COMPLETED Source: [place] 9:55 AM [facility] REPOSITORY HNO ID: [id number] Author: Anais AminRn) NINA Savage Service: (none) Author Type: Registered Nurse Type: ED Notes Filed: 06/01/2018 9:56 AM Note Text: Patient presents with c/o headache that started this am 05/30, vision issues that started yesterday and states has chest pain that comes and goes that started this am DISCHARGE INSTRUCTION Observed: 05/29/2018 Status: F Source: [place] 5:57 PM [facility] RE[facility]IT[facility] Medical Records Department [address] [place] [address] Discharge Instruction 05/29/184 MR#: [id number] Acct: [id number] Name: ATTILA DEL CID Rep #: [id number] : 1970 48 From: Graham Mendoza DO [...] your Primary Care Provider. Call [facility] ([phone]) or report to the closest Emergency Room. Call 911 if necessary. 05/29/181756 <Electronically signed by Graham Mendoza DO> Date Graham Mendoza DO Cosigner Signature (If Indicated): Date CC: Nyla Bearden MD EMERGENCY DEPARTMENT Observed: 05/29/2018 Status: F Source: [place] SUMMARY 5:54 PM [facility] REPOSITORY [facility] Medical Records Department [address] [place] [address] Emergency Department Summary 05/29/180 MR#: [id number] Acct: [id number] Name: ATTILA DEL CID Lois Rep #: [id number] : 1970 48 From: Graham Mendoza DO [...] pain-etiology uncertain] This note was generated with Preggers dictation software. It may contain incorrect words, [...] your Primary Care Provider. Call [facility] ([phone]) or report to the closest Emergency Room. Call 911 if necessary. 05/29/18 4188 <Electronically signed by Graham Mendoza DO> Date Graham Mendoza DO Cosigner Signature (If Indicated): Date CC: Nyla Bearden MD BASIC METABOLIC Collected: 05/29/2018 Status: F Source: [place] PROFILE (BMP) 4:50 PM [facility] REPOSITORY TYPE CODE TESTS RESULT OUT OF [...] By: #### L500.2500, L500.3400, L501.2450, L501.4010 #### [facility] [address] [place], [place], [phone] LIVER PROFILE Collected: 05/29/2018 Status: F Source: [place] 4:50 PM [facility] REPOSITORY TYPE CODE TESTS RESULT OUT OF [...] By: #### L500.2500, L500.3400, L501.2450, L501.4010 #### [facility] [address] [place], [address] LIPASE Collected: 05/29/2018 Status: F Source: [place] 4:50 PM [facility] REPOSITORY TYPE CODE TESTS RESULT OUT OF RANGE REFERENCE UNITS LAB L501.2450 73-393 U/L Normal LIPASE 227 Performed By: #### L500.2500, L500.3400, L501.2450, L501.4010 #### [facility] [address] [place], [address] TROPONIN-I Collected: 05/29/2018 Status: F Source: [place] 4:50 PM [facility] REPOSITORY TYPE CODE TESTS RESULT OUT OF RANGE REFERENCE UNITS LAB L501.4010 <0.045 ng/mL Normal < 0.015 TROPONIN-I Result Comment: TROPONIN-I EXPECTED VALUES <0.045 Negative 0.045 - 0.590 Consistent with Cardiac Damage > OR = 0.600 Critical Value Not every elevated troponin is indicative of MN. These values should be used with clinical judgement in examining the patient's clinical picture for diagnosis. To establish a diagnosis of MN versus myocardial injury, there must be a demonstrated rise and/or fall in the troponin values, in addition to ischemic symptoms, EKG changes, new regional wall motion abnormality, and/or angiographical evidence. PLEASE NOTE: REFERENCE RANGES EDITED 18 Performed By: #### L500.2500, L500.3400, L501.2450, L501.4010 #### [facility] [address] [place], [address] CBC W/DIFF, AUTOMATED Collected: 05/29/2018 Status: F Source: [place] 4:50 PM [facility] REPOSITORY TYPE CODE TESTS RESULT OUT OF [...] Lymph 2.73 Performed By: #### L100.0100 #### [facility] [address] [facility] [place], [address] CHEST 1 VIEW Observed: 05/29/2018 Status: F Source: [place] (PORTABLE) 4:38 PM [facility] REPOSITORY [facility] Imaging Services [address] [place] [address] Chest 1 View (Portable) MR#: [id number] Acct: [id number] Name: ATTILA DEL CID Lois Rep #: [id number] : 1970 M 48 From: Carlos Eduardo Johnson DO PCP: Nyla Bearden MD Status: PRE ER Study: Chest 1 View (Portable) Date of Exam: 05/29/18 Exam# [id number] Ordering Dr: Graham Mendoza DO STUDY: X-RAY [...] Eduardo Johnson DO at 17:02 EDT Tel [phone], Service support , CC: Nyla Bearden MD; Graham Mendoza DO Grill Chef: Signed HIGH SENS TROPONIN T Collected: 05/27/2018 Status: F Source: [place] 5:25 PM [facility]AMP[facility] REPOSITORY TYPE CODE TESTS [...] day MACE. Performed By: #### HSTNT #### [facility] [address] [phone] ED NOTE Observed: 05/27/2018 Status: COMPLETED Source: [place] 5:16 PM [facility]AMP[facility] REPOSITORY HNO ID: [id number] Author: Devorah AminRn) NINA Delacruz Service: (none) Author Type: Registered Nurse Type: ED Notes Filed: 05/27/2018 5:16 PM Note Text: Patient returned to the Emergency Department. CT FLANK WO IVCON Observed: 05/27/2018 Status: F Source: [place] 5:11 PM [facility]INIC OTHER CAMPUS REPOSITORY * * *Final Report* * * DATE OF EXAM: May 27 2018 5:11PM [facility] 0529 - CT FLANK [...] scarring/atelectasis. IMPRESSION: STABLE RIGHT-SIDED NEPHROLITHIASIS WITHOUT HYDRONEPHROSIS. Grill Chef: NEAL Transcribe Date/Time: May 27 2018 5:12P Dictated by : JENA BRAXTON MD This examination was interpreted and the report reviewed and electronically signed by: JENA BRAXTON MD on May 27 2018 5:16PM EST [id number] ED NOTE Observed: 05/27/2018 Status: COMPLETED Source: [place] 5:06 PM [facility] REPOSITORY HNO ID: [id number] Author: Devorah AminRn) Jayme, RN Service: (none) Author Type: Registered Nurse Type: ED Notes Filed: 05/27/2018 5:06 PM Note Text: Patient transported to tn with Tech. EKG Observed: 05/27/2018 Status: F Source: [place] 4:52 PM [facility] OTHER CAMPUS REPOSITORY NAME : ATTILA DEL CID PID : [id number] : 1970 Gender : Male Race : ORD : [id number] Procedure Date : May 27 2018 16:52:59 Edit Date : May 29 2018 22:09:29 Diagnosis:NORMAL SINUS RHYTHM MINIMAL VOLTAGE CRITERIA FOR LVH, MAY BE NORMAL VARIANT BORDERLINE ECG WHEN COMPARED WITH ECG OF 13-MAY-2018 20:15, NO SIGNIFICANT CHANGE WAS FOUND Confirmed by Jona CHARLES AN-JEN ([id number]) on 05/29/2018 10:09:28 PM Ventricular Rate : 74 BPM Atrial Rate : 74 BPM P-R Interval : 140 ms QRS Duration : 84 ms Q-T Interval : 392 ms QTC Calculation(Bezet) : 435 ms P Bon Aqua : -5 degrees R Bon Aqua : -1 degrees T Bon Aqua : -4 degrees Test Reason : Chest Pain Location : 1 : ER ED2 Overread By : Jona CHARLES AN-JEN Edited By : Jona CHARLES AN-JEN Referred By : , Acquired by : , ED NOTE Observed: 05/27/2018 Status: COMPLETED Source: [place] 4:48 PM [facility] OTHER [facility] REPOSITORY HNO ID: [id number] Author: Devorah AminRn) NINA Delacruz Service: (none) Author Type: Registered Nurse Type: ED Notes Filed: 05/27/2018 4:56 PM Note Text: Pt called out, pt states abd pain is back 05/30, pt reports chest pain that is sharp started 20 mins ago, pt rates it /10. Vs stable, [facility] made aware, per [facility] do ekg. monitoring ED PROV NOTE Observed: 05/27/2018 Status: COMPLETED Source: [place] 4:31 PM [facility] OTHER CAMPUS REPOSITORY O ID: [id number] Author: Isma Jenkins (Pa) Service: Emergency Medicine Author Type: Physician Paving And Surfacing Labourer Type: ED Provider Notes Filed: 05/27/2018 6:08 [...] SURGERY HX Right 03/2017 patella replacement - CT ANESTH,KNEE JOINT; NOS 12/2017 Left FAMILY HISTORY [...] Upset - Levofloxacin Rash pt reports to [facility] PT 04-13-2017 - Penicillin G Rash - [...] - Abnormal; Notable for the following: Abs Long 0.92 (*) <0.87 k/uL All other components within normal limits MAGNESIUM BLD LIPASE BLD URINALYSIS HIGH SENSITIVITY TROPONIN T HIGH SENSITIVITY TROPONIN T CT FLANK WO IVCON Final Result IMPRESSION: STABLE RIGHT-SIDED NEPHROLITHIASIS WITHOUT HYDRONEPHROSIS. Grill Chef: NEAL Transcribe Date/Time: May 27 2018 5:12P [...] Abs Lymph 2.20 1.00 - 4.00 k/uL Long% 10.8 % Abs Long 0.92 (H) <0.87 k/uL Eosin% 1.3 % Abs Eosin 0.11 <0.46 k/uL Baso% 0.5 % Abs Baso 0.04 <0.11 k/uL URINALYSIS Result Value Ref Range Color Yellow Yellow Appearance (U) Clear Clear Glucose, Urine Negative Negative mg/dL Bilirubin, Urine Negative Negative Ketones, Urine Negative Negative Specific [place], Ur 1.015 1.001 - 1.029 Hemoglobin/Blood,Ur Negative [...] in writing to patient (patient guardian / territory sales representative), who verbalized understanding. This note was partially generated using Preggers voice recognition system, and there may be [...] Condition at time of disposition: stable SIGNATURE: Isma Jenkins PA-C Ismachristopher Liang) Alice 05/27/18 180 Isma Liang) Alice 05/27/18 1802 CBC AND DIFFERENTIAL Collected: 05/27/2018 Status: F Source: [place] 3:50 PM [facility]INIC OTHER CAMPUS REPOSITORY TYPE [...] k/uL Abs Lymph 2.20 LAB AMONO % Long% 10.8 LAB AAMONO <0.87 k/uL Abs Long High 0.92 LAB AEOS % Eosin% 1.3 LAB AAEOS <0.46 k/uL Abs Eosin 0.11 LAB ABASO % Baso% 0.5 LAB AABASO <0.11 k/uL Abs Baso 0.04 Performed By: #### CBCDIF, CMP, LIPA, MG1 #### [facility] [address] [place] [address] COMP METABOLIC PANEL Collected: 05/27/2018 Status: F Source: [place] 3:50 PM [facility] CAMPUS REPOSITORY TYPE CODE TESTS RESULT OUT OF REFERENCE UNITS RANGE LAB TP 6.3-8.0 g/dL Protein, Total 7.5 LAB ALB 3.9-4.9 g/dL Albumin 4.2 LAB CA 8.5-10.2 mg/dL Calcium, Total 9.3 LAB TBIL 0.2-1.3 mg/dL Bilirubin, Total 0.4 LAB ALKP 36-108 U/L Alkaline Phosphatase 101 LAB AST 14-40 U/L AST High 45 LAB GLU 74-99 mg/dL Glucose 86 Result Comment: The [place] Diabetes Association (ADA) provides guidance for cutoff [...] Standards of Medical Care in Diabetes 2016, [place] Diabetes Association. Diabetes Care. 2016.39(Suppl 1). LAB [...] has been calibrated to be traceable to IDKoudai. An eGFR <60 mL/min/1.73m2 for >3 months is consistent with chronic kidney disease. Refer to KDOQI guidelines for clinical interpretation. In patients with unstable renal function, e.g. those with acute kidney injury, the eGFR may not accurately reflect actual GFR. Performed By: #### CBCDIF, CMP, LIPA, MG1 #### [facility] [address] [phone] LIPASE Collected: 05/27/2018 Status: F Source: [place] 3:50 PM [facility] REPOSITORY TYPE CODE TESTS RESULT OUT OF REFERENCE UNITS RANGE LAB LIPA 16-61 U/L Lipase 53 Performed By: #### CBCDIF, CMP, LIPA, MG1 #### [facility] [address] [phone] MAGNESIUM Collected: 05/27/2018 Status: F Source: [place] 3:50 PM [facility] REPOSITORY TYPE CODE TESTS RESULT OUT OF REFERENCE UNITS RANGE LAB MG 1.7-2.3 mg/dL Magnesium 1.9 Performed By: #### CBCDIF, CMP, LIPA, MG1 #### [facility] [address] [place] [address] URINALYSIS Collected: 05/27/2018 Status: F Source: [place] 3:50 [facility] REPOSITORY TYPE CODE TESTS RESULT OUT OF REFERENCE UNITS RANGE LAB UCOL Yellow Color Yellow LAB [facility] Clear Clarity Clear LAB UGLUC Negative mg/dL Glucose, Urine Negative LAB UBIL Negative Bilirubin, Urine Negative LAB UKET Negative Ketones, Urine Negative LAB USPG 1.001-1.029 Specific [place], Ur 1.015 LAB UHGB Negative Hemoglobin/Blood, Negative Ur LAB UPH 5.0-8.0 pH 7.0 LAB UPROT Negative mg/dL Protein, Urine Negative LAB UUROB 0.2-1.0 Urobilinogen 1.0 LAB UNITR Negative Nitrites Negative LAB ULKEST Negative Leukest Negative Performed By: #### UA #### [facility] [address] [place] [address] HIGH SENS TROPONIN T Collected: 05/27/2018 Status: F Source: [place] 3:[address] [place] [address] OTHER READING REPOSITORY TYPE CODE TESTS RESULT OUT OF [...] day MACE. Performed By: #### HSTNT #### [facility] [address] [phone] ED NOTE Observed: 05/27/2018 Status: COMPLETED Source: [place] 3:25 PM [facility]INIC OTHER CAMPUS REPOSITORY HNO ID: [id number] Author: Diana (Rn) NINA Minor Service: (none) Author Type: Registered Nurse Type: ED Notes Filed: 05/27/2018 3:26 PM Note Text: Right flank pain started last evening, hx of multiple kidney stones. INTERNAL MEDICINE Observed: 05/23/2018 Status: F Source: [place] OFFICE VISIT 1:32 PM [facility] REPOSITORY [facility] [address] [place] [address] [place] [address] OFFICE VISIT Date of Service: 05/20/18 MR#: [id number] Acct: [id number] Name: ATTILA DEL CID Rep #: [id number] : 1970 Provider: Nyla Bearden MD Age/Sex: 48/M Location: [facility] Status: Signed Intake Vital Signs05/20/18 Height 5 [...] sleep apnea) (Chronic) Atherosclerotic heart disease of [place] coronary artery without angina pectoris (Chronic) Nephrolithiasis [...] significant abnormalities. Has a follow-up with his certified alcohol and drug counselor and [facility]. He was advised to keep this. Also advised to continue follow-up with cardiology. Relaxation techniques discussed. Follow-up in 1 month 2. Anxiety F41.9 Plan Patient states that this is well controlled on Lexapro. Relaxation techniques as above. Continue current medication 3. LORETTA (obstructive sleep apnea) G47.33 Plan Stable. He reports compliance with his CPAP. Continue current plan. This note was generated with Preggers dictation software. It may contain incorrect words, spelling, and punctuation that were not noted in checking the note before signing. Plan Detail Other Medications Discontinued: Coding Level of Care Code Off vis,est,level 3 Diagnoses Atrial fibrillation and flutter I48.91; I48.92 Anxiety F41.9 LORETTA (obstructive sleep apnea) G47.33 05/23/18 1332 <Electronically signed by Nyla Bearden MD> Date Nyla Gabriel Signature: Date (if applicable) CC: 12 LEAD ELECTROCARDIOGRAM Observed: 05/23/2018 Status: F Source: [place] 8:26 AM [facility] REPOSITORY [facility] Cardiovascular Services [address] [place] [address] 12 Lead EKG 05/17/18 0540 MR#: [id number] Acct: [id number] Name: ATTILA DEL CID Rep #: [id number] : 1970 48 From: Asael Hale MD Attending Dr: Boogie Alberto Status: DIS IN Ordering Dr: Asael Hale MD Date: 05/16/18 Location: [facility] Sex: M C Admitted: 05/16/18 Test Reason [...] By: MARBELLA Confirmed By:ASAEL HALE MD 05/23/18 0825 Date Asael Hale MD CC: Nyla Bearden MD; Boogie Alberto; Asael Hale MD Signed 12 LEAD ELECTROCARDIOGRAM Observed: 05/23/2018 Status: F Source: [place] 8:26 AM [facility] REPOSITORY [facility] Cardiovascular Services [address] [place] [address] 12 Lead EKG 05/16/18 2303 MR#: [id number] Acct: [id number] Name: ATTILA DEL CID Rep #: [id number] : 1970 48 From: Asael Hale MD Attending Dr: Boogie Alberto Status: DIS IN Ordering Dr: Asael Hale MD Date: 05/16/18 Location: [facility] Sex: M C Admitted: 05/16/18 Test Reason [...] By: DR FITZPATRICK Confirmed By:ASAEL HALE MD 05/23/18 0826 Date Asael Hale MD CC: Nyla Bearden MD; Boogie Alberto; Asael Hale MD Signed 12 LEAD ELECTROCARDIOGRAM Observed: 05/23/2018 Status: F Source: [place] 8:25 AM [facility] Cardiovascular Services [address] [place] [address] 12 Lead EKG 05/17/18 1025 MR#: [id number] Acct: [id number] Name: ATTILA DEL CID Rep #: [id number] : 1970 48 From: Asael Hale MD Attending Dr: Boogie Alberto Status: DIS IN Ordering Dr: Asael Hale MD Date: 05/17/18 Location: [facility] Sex: M C Admitted: 05/16/18 Test Reason : MED Blood Pressure : / mmHG Vent. Rate : 070 BPM Atrial Rate : 070 BPM P-R Int : 168 ms QRS Dur : 092 ms QT Int : 406 ms P-R-T Axes : 008 012 009 degrees QTc Int : 438 ms Normal sinus rhythm Normal ECG Confirmed by ASAEL HALE MD ([id number]), dictionary editor RICCO LEWIS ([id number]) on 05/23/2018 8:24:47 AM Referred By: ALEXIA Confirmed By:ASAEL HALE MD 05/23/18823 Date Asael Hale MD CC: Nyla Bearden MD; Boogie Alberto; Asael Hale MD Signed 12 LEAD ELECTROCARDIOGRAM Observed: 05/23/2018 Status: F Source: [place] 8:22 AM [facility] REPOSITORY [facility] Cardiovascular Services [address] [place] [address] 12 Lead EKG 05/17/18 2219 MR#: [id number] Acct: [id number] Name: ATTILA DEL CID Rep #: [id number] : 1970 48 From: Asael Hale MD Attending Dr: Boogie Alberto Status: DIS IN Ordering Dr: Asael Hale MD Date: 05/17/18 Location: [facility] Sex: M C Admitted: 05/16/18 Test Reason [...] Normal ECG Confirmed by ASAEL HALE MD ([id number]), dictionary editor RICCO LEWIS ([id number]) on 05/23/2018 8:22:15 AM Referred By: DR HALE Confirmed By:ASAEL HALE MD 05/23/18821 Date Asael Hale MD CC: Nyla Bearden MD; Boogie Alberto; Asael Hale MD Signed 12 LEAD ELECTROCARDIOGRAM Observed: 05/23/2018 Status: F Source: [place] 8:21 AM [facility] REPOSITORY [facility] Cardiovascular Services [address] [place] [address] 12 Lead EKG 05/18/18 1021 MR#: [id number] Acct: [id number] Name: MARIA EUGENIAATTILA K Rep #: [id number] : 1970 48 From: Asael Hale MD Attending Dr: Boogie Alberto Status: DIS IN Ordering Dr: Boogie Alberto MD Date: 05/18/18 Location: U Sex: M C Admitted: 05/16/18 Test Reason : MEDICATION [...] Referred By: MARBELLA Confirmed By:ASAEL HALE MD 05/23/18820 Date Asael Hale MD CC: Nyla Bearden MD; Boogie Alberto Signed 12 LEAD ELECTROCARDIOGRAM Observed: 05/22/2018 Status: F Source: [place] 11:51 AM [facility] REPOSITORY [facility] Cardiovascular Services [address] [place] [address] 12 Lead EKG 05/20/18 205 MR#: [id number] Acct: [id number] Name: ASTERJENIATTILA K Rep #: [id number] : 1970 48 From: Asael Hale MD [...] normal ECG Confirmed by ALEXIA CONNOR, ASAEL ([id number]), dictionary editor RICCO LEWIS ([id number]) on 05/22/2018 11:50:40 AM Referred By: CANDACE Confirmed By:ASAEL HALE MD 05/22/18 1150 Date Asael Hale MD CC: Nyla Bearden MD; Chavez Byrd MD Signed ED NOTE Observed: 05/21/2018 Status: COMPLETED Source: [place] 9:54 PM [facility] REPOSITORY HNO ID: [id number] Author: Michela AminRn) NINA Day Service: Nursing Author Type: Registered Nurse Type: ED Notes Filed: 05/26/2018 12:20 PM Note Text: No answer ED NOTE Observed: 05/21/2018 Status: COMPLETED Source: [place] 9:53 PM [facility] [place] REPOSITORY HNO ID: [id number] Author: Vidal AminRn) NINA Palacios Service: (none) Author Type: Registered Nurse Type: ED Notes Filed: 05/21/2018 9:53 PM Note Text: The patient verbalizes understanding of discharge instructions. No additional questions or concerns at this time. Patient Vital signs stable, no acute distress noted. Patient ambulatory out of ED. Prescription(S) x 2 given. URINALYSIS Collected: 05/21/2018 Status: F Source: [place] 8:56 PM [facility] REPOSITORY TYPE CODE TESTS RESULT OUT OF REFERENCE UNITS RANGE LAB UCOL Yellow Color Yellow LAB [facility] Clear Clarity Clear LAB UGLUC Negative mg/dL Glucose, Urine Negative LAB UBIL Negative Bilirubin, Urine Negative LAB UKET Negative Ketones, Urine Negative LAB USPG 1.001-1.029 Specific [place], Ur 1.015 LAB UHGB Negative Hemoglobin/Blood, Negative Ur LAB UPH 5.0-8.0 pH 6.0 LAB UPROT Negative mg/dL Protein, Urine Negative LAB UUROB 0.2-1.0 Urobilinogen 0.2 LAB UNITR Negative Nitrites Negative LAB ULKEST Negative Leukest Negative Performed By: #### UA #### [facility] [address] [place] [address] CBC AND DIFFERENTIAL Collected: 05/21/2018 Status: F Source: [place] 8:47 PM [facility] REPOSITORY TYPE CODE TESTS [...] k/uL Abs Lymph 3.49 LAB AMONO % Long% 9.1 LAB AAMONO <0.87 k/uL Abs Long High 0.91 LAB AEOS % Eosin% 1.2 LAB AAEOS <0.46 k/uL Abs Eosin 0.12 LAB ABASO % Baso% 0.7 LAB AABASO <0.11 k/uL Abs Baso 0.07 Performed By: #### CBCDIF, CMP, LIPA #### [facility] [address] [place] [address] COMP METABOLIC PANEL Collected: 05/21/2018 Status: F Source: [place] 8:47 PM [facility] [place] REPOSITORY TYPE CODE TESTS RESULT OUT OF REFERENCE UNITS RANGE LAB TP 6.3-8.0 g/dL Protein, Total 7.1 LAB ALB 3.9-4.9 g/dL Albumin 4.1 LAB CA 8.5-10.2 mg/dL Calcium, Total 9.1 LAB TBIL 0.2-1.3 mg/dL Bilirubin, Total 0.3 LAB ALKP 36-108 U/L Alkaline Phosphatase 93 LAB AST 14-40 U/L AST 22 LAB GLU 74-99 mg/dL Glucose 87 Result Comment: The [place] Diabetes Association (ADA) provides guidance for cutoff [...] Standards of Medical Care in Diabetes 2016, [place] [employer] Association. Diabetes Care. 2016.39(Suppl 1). LAB [...] Performed By: #### CBCDIF, CMP, LIPA #### [facility] [address] [facility] [phone] LIPASE Collected: 05/21/2018 Status: F Source: [place] 8:47 PM [facility] OTHER CAMPUS REPOSITORY TYPE CODE TESTS RESULT OUT OF REFERENCE UNITS RANGE LAB LIPA 16-61 U/L High Lipase 87 Performed By: #### CBCDIF, CMP, LIPA #### [facility] [address] [facility] [phone] CT FLANK WO IVCON Observed: 05/21/2018 Status: F Source: [place] 8:15 PM [facility] REPOSITORY * * *Final Report* * * DATE OF EXAM: May 21 2018 8:15PM [facility] 0529 - CT FLANK [...] obstructive uropathy or definite solid renal mass. 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 fib. He [...] SURGERY HX Right 03/2017 patella replacement - CT ANESTH,KNEE JOINT; NOS 12/2017 Left FAMILY HISTORY [...] Upset - Levofloxacin Rash pt reports to [facility] PT 04-13-2017 - Penicillin G Rash - [...] appearing male resting comfortably in bed in NAD HENT: Head: Normocephalic and atraumatic. Eyes: Conjunctivae [...] the following: Result Value Ref Range Abs Long 0.91 (*) <0.87 k/uL All other components [...] aortic aneurysm however he was admitted to [place] last week and had stable appearance of [...] ED NOTE Observed: 05/21/2018 Status: COMPLETED Source: [place] 7:38 PM [facility] OTHER CAMPUS REPOSITORY O ID: [id number] Author: Dominga Sloan) NINA Saldivar Service: (none) Author Type: Registered Nurse Type: ED Notes Filed: 05/21/2018 7:39 PM Note Text: Patient presents to the ED with flank pain and nausea/vomiting that started yesterday. EMERGENCY DEPARTMENT Observed: 05/21/2018 Status: F Source: [place] SUMMARY 12:41 AM [facility] REPOSITORY [facility] Medical Records Department [address] [place] [address] Emergency Department Summary 05/20/180 MR#: [id number] Acct: [id number] Name: ATTILA DEL CID Rep #: [id number] : 1970 48 From: Chavez Byrd MD PCP: Nyla Bearden MD Status: DEP ER - ER Visit Summary Date of Service: 05/20/18 Chief Complaint: Chest pain and palpitations History of Present Illness: The patient is a 48 M history of reported TIA, MN, A. fib, kidney stones. Patient reportedly had [...] be discharged home to follow-up with his car trimmer Dr. Jesse Stokes. Treatment Plan: Discharged to home Disposition: Discharge Impression: Acute transient palpitations resolved History of A. fib Chest pain uncertain etiology This note was generated with Pre[employer] dictation software. It may contain incorrect words, [...] problems, contact your Primary Care Provider. Call [facility] ([phone]) or report to the closest Emergency Room. Call 911 if necessary. 05/21/18 0041 <Electronically signed by Chavez Byrd MD> Date Chavez Gabriel Signature (If Indicated): Date CC: Nyla Bearden MD DISCHARGE INSTRUCTION Observed: 05/21/2018 Status: F Source: [place] 12:41 AM [facility] REPOSITORY [facility] Medical Records Department [address] [place] [address] Discharge Instruction 05/20/18 2222 MR#: [id number] Acct: [id number] Name: ATTILA DEL CID Rep #: [id number] : 1970 48 From: Chavez Byrd MD [...] your Primary Care Provider. Call [facility] ([phone]) or report to the closest Emergency Room. Call 911 if necessary. 05/21/18 0041 <Electronically signed by Chavez Byrd MD> Date Chavez Gabriel Signature (If Indicated): Date CC: Nyla Bearden MD CHEST 1 VIEW Observed: 05/20/2018 Status: F Source: [place] (PORTABLE) 9:38 PM [facility] Imaging Services [address] [place] [address] Chest 1 View (Portable) MR#: [id number] Acct: [id number] Name: ATTILA DEL CID Rep #: [id number] : 1970 M 48 From: Dennis Loo MD PCP: Nyla Bearden MD Status: REG ER Study: Chest 1 View (Portable) Date of Exam: 05/20/18 Exam# [id number] Ordering Dr: Chavez Byrd MD STUDY: X-RAY CHEST REASON FOR EXAM: Male, 48 years old. Chest pain and palpitations, history of A. fib TECHNIQUE: Single AP portable view of the chest. COMPARISON: Prior study of 05/15/2018 FINDINGS: power system engineer leads are present. The lungs are clear [...] CC: Nyla Bearden MD; Chavez Byrd MD Grill Chef: Signed CBC W/DIFF, AUTOMATED Collected: 05/20/2018 Status: F Source: [place] 9:00 PM [facility] REPOSITORY TYPE CODE TESTS RESULT OUT OF [...] Lymph 3.13 Performed By: #### L100.0100 #### [facility] [address] [place], [place], [address] BASIC METABOLIC Collected: 05/20/2018 Status: F Source: [place] PROFILE ([facility]) 9:00 PM [facility] REPOSITORY TYPE CODE TESTS RESULT OUT OF [...] 7 Performed By: #### L500.2500, L501.4010 #### [facility] [address] [facility]. [place], [place], [address] TROPONIN-I Collected: 05/20/2018 Status: F Source: [place] 9:00 PM [facility] REPOSITORY TYPE CODE TESTS RESULT OUT OF RANGE REFERENCE UNITS LAB L501.4010 <0.045 ng/mL Normal < 0.015 TROPONIN-I Result Comment: TROPONIN-I EXPECTED VALUES <0.045 Negative 0.045 - 0.590 Consistent with Cardiac Damage > OR = 0.600 Critical Value Not every elevated troponin is indicative of MN. These values should be used with clinical judgement in examining the patient's clinical picture for diagnosis. To establish a diagnosis of MN versus myocardial injury, there must be a demonstrated rise and/or fall in the troponin values, in addition to ischemic symptoms, EKG changes, new regional wall motion abnormality, and/or angiographical evidence. PLEASE NOTE: REFERENCE RANGES EDITED 18 Performed By: #### L500.2500, L501.4010 #### [facility] [address] [place], [address] 12 LEAD ELECTROCARDIOGRAM Observed: 05/20/2018 Status: F Source: [place] 3:29 PM [facility] Cardiovascular Services [address] [place] [address] 12 Lead EKG 05/15/18 2215 MR#: [id number] Acct: [id number] Name: ATTILA DEL CID Rep #: [id number] : 1970 48 From: Asael Hale MD Attending Dr: Boogie Alberto Status: DIS IN Ordering Dr: Jayden Mike MD Date: 05/15/18 Location: [facility] Sex: M C Admitted: 05/16/18 Test Reason : CP ADMIT Blood Pressure : / mmHG Vent. Rate : 073 BPM Atrial Rate : 073 BPM P-R Int : 166 ms QRS Dur : 088 ms QT Int : 404 ms P-R-T Axes : -06 007 018 degrees QTc Int : 445 ms Normal sinus rhythm Normal ECG Confirmed by ALEXIA CONNOR, ASAEL ([id number]), dictionary editor RICCO LEWIS ([id number]) on 05/20/2018 3:29:12 PM Referred By: DR COLEY Confirmed By:ASAEL HALE MD 05/20/18 1529 Date Asael Hale MD CC: Nyla Bearden MD; Boogie Alberto; Jayden Mike MD Signed 12 LEAD ELECTROCARDIOGRAM Observed: 05/20/2018 Status: F Source: [place] 3:27 PM [facility] Cardiovascular Services [address] [place] [address] 12 Lead EKG 05/16/1818 MR#: [id number] Acct: [id number] Name: ATTILA DEL CID Rep #: [id number] : 1970 48 From: Asael Hale MD Attending Dr: Boogie Alberto Status: DIS IN Ordering Dr: Jayden Mike MD Date: 05/16/18 Location: [facility] Sex: M C Admitted: 05/16/18 Test Reason : AM EKG Blood Pressure : / mmHG Vent. Rate : 066 BPM Atrial Rate : 066 BPM P-R Int : 186 ms QRS Dur : 094 ms QT Int : 422 ms P-R-T Axes : 008 010 014 degrees QTc Int : 442 ms Normal sinus rhythm Normal ECG Confirmed by ASAEL HALE MD ([id number]), dictionary editor RICCO LEWIS ([id number]) on 05/20/2018 3:27:05 PM Referred By: DR GUERRA Confirmed By:ASAEL HALE MD 05/20/18 1527 Date Asael Hale MD CC: Nyla Bearden MD; Boogie Alberto; Jayden Mike MD Signed 12 LEAD ELECTROCARDIOGRAM Observed: 05/20/2018 Status: F Source: [place] 2:52 PM [facility] REPOSITORY [facility] Cardiovascular Services [address] [place] [address] 12 Lead EKG 05/15/18 1839 MR#: [id number] Acct: [id number] Name: ATTILA DEL CID Rep #: [id number] : 1970 48 From: Asael Hale MD Attending Dr: Boogie Alberto Status: DIS IN Ordering Dr: Keyon Grace MD Date: 05/15/18 Location: [facility] Sex: M C Admitted: 05/16/18 Test Reason : CP Blood Pressure : / mmHG Vent. Rate : 088 BPM Atrial Rate : 088 BPM P-R Int : 180 ms QRS Dur : 084 ms QT Int : 378 ms P-R-T Axes : -01 003 008 degrees QTc Int : 457 ms Sinus rhythm with Fusion complexes Otherwise normal ECG Confirmed by ASAEL HALE MD ([id number]), dictionary editor RICCO LEWIS ([id number]) on 05/20/2018 2:52:16 PM Referred By: CARRIE Confirmed By:ASAEL HALE MD 05/20/18 0024 Date Asael Hale MD CC: MD García Queenyed; Nyla Bearden MD; Booige Alberto Signed DISCHARGE SUMMARY Observed: 05/18/2018 Status: F Source: [place] 5:11 PM [facility] REPOSITORY [facility] Medical Records Department [address] [place] [address] Discharge Summary 05/18/18 1701 MR#: [id number] Acct: [id number] Name: ATTILA DEL CID Rep #: [id number] : 1970 48 From: Boogie Alberto MD PCP: Nyla Bearden MD Status: DIS IN Y Location: [place] [address] Discharge Date and Diagnosis Date of Admission: 05/15/18 Date of Discharge: 05/18/18 - Primary Discharge Diagnosis #1 recurrent chest pain. #2 paroxysmal A. fib/flutter. - Secondary Discharge Diagnosis Chronic Problems (Last Reviewed 04/22/18 @ 09:38 by Brittani Qureshi) SVT (supraventricular tachycardia) (Chronic) LORETTA (obstructive sleep apnea) (Chronic) Atherosclerotic heart disease of [place] coronary artery without angina pectoris (Chronic) History of left heart catheterization (Chronic) 11/09/2016 @ [facility], per Dr. Shama Harley: normal coronaries 04/07/2018 @ [facility] per Dr. Stokes: normal coronaries Nephrolithiasis [...] BID #90 tab Primary Care Physician: Nyla Beadren MD [Primary Care Provider] - Please follow [...] applicable Code Visit Inpatient E AND M: [id number] Disch Hosp 05/18/18 1711 <Electronically signed by Boogie Alberto MD> Date Boogie Alberto MD Cosigner Signature (if applicable): Date CC: Nyla Bearden MD; Boogie Alberto; Asael Hale MD Signed DISCHARGE INSTRUCTION Observed: 05/18/2018 Status: F Source: [place] 2:04 PM [facility] REPOSITORY [facility] Medical Records Department [address] [place] [address] Instructions for Home/Discharge Instructions 05/18/18 1403 MR#: [id number] Acct: [id number] Name: ATTILA DEL CID Rep #: [id number] : 1970 48 From: Boogie Alberto MD [...] appointment, if applicable. Please Follow Up With: Asael Hale MD When: call his office. 05/18/18 8342 <Electronically signed by Boogie Alberto MD> Date Boogie Alberto MD CC: Nyla Bearden MD; Asael Hale MD CONSULTATION Observed: 05/16/2018 Status: F Source: [place] 9:22 AM [facility] REPOSITORY [facility] Medical Records Department [address] [place] [address] Consultation 05/16/18 0906 MR#: [id number] Acct: [id number] Name: ATTILA DEL CID Rep #: [id number] : 1970 48 From: Asael Hale MD PCP: Nyla Bearden MD Status: ADM FERHCO Y Location: [place] [address] Problem List (1) Non-cardiac chest pain Status: [...] invasive cardiovascular evaluation in the past at [facility] and outside institutions. On 03/20/2018 the patient [...] the patient underwent diagnostic cardiac catheterization at [facility]. The left ventricle was normal with an LVEF of 60%. The coronary angiography reported normal coronary arteries. Of note the patient had a previous cardiac catheterization performed at [facility] on 11/09/2016. At that time the LV [...] chest discomfort. He was recently evaluated at [facility]. This was for recurrent chest discomfort. According [...] rhythm with no acute ECG changes. 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 Shama Harley: normal coronaries 04/07/2018 @ [facility] per Dr. Stokes: normal coronaries Nephrolithiasis [...] that his medication adjustment be performed at [facility]. Thus the present time he will continue [...] this approach. This note was generated with [employer] software. It may contain incorrect words, spelling, and punctuation that were not noted in checking the note before signing. 05/16/18 0922 <Electronically signed by Asael Hale MD> Date Asael Hale MD Cosigner Signature (if applicable): Date CC: Jesse Stokes MD; Nyla Bearden MD; Pepe Walsh MD; Asael Hale MD Signed HISTORY AND PHYSICAL Observed: 05/16/2018 Status: F Source: [place] EXAM 5:45 AM [facility] REPOSITORY [facility] Medical Records Department [address] [place] [address] History and Physical 05/15/181931 MR#: [id number] Acct: [id number] Name: ATTILA DEL CID Rep #: [id number] : 1970 48 From: Jayden Mike MD PCP: Nyla Bearden MD Status: ADM FERCHO Y Location: [place] [address] Problem List (1) Chest pain Status: Acute Qualifiers: (2) Ascending aorta dilatation Status: Chronic (3) PAF (paroxysmal atrial fibrillation) Status: Chronic History of Present Illness Date of Admission: 05/15/18 Chief Complaint: Chest pain 3 days. The patient is a 48 year old M with a significant history of HTN, MN, thoracic aortic aneurysm, and A. fib who presented because of a 3 day history of chest pain. Patient was at [facility] 3 days ago because of chest pain and because of his history of thoracic aortic aneurysm a CTA of his chest was done but this was unremarkable. Cardiac workup including cardiac enzymes at [facility] was unremarkable. In regard to his A. fib, patient follows up with Dr. Andrew, certified alcohol and drug counselor at [facility]. He had an ablation done in 2017 at [facility]. Plan is for him to go back to [facility] for 3 days of hospitalization where he [...] sleep apnea) (Chronic) Atherosclerotic heart disease of [place] coronary artery without angina pectoris (Chronic) History of left heart catheterization (Chronic) 11/09/2016 @ [facility], per Dr. Shama Harley: normal coronaries 04/07/2018 @ [facility] per Dr. Stokes: normal coronaries Nephrolithiasis [...] apnea) (Chronic) G47.33 Atherosclerotic heart disease of [place] coronary artery without angina pectoris (Chronic) I25.10 [...] left heart catheterization (Chronic) Z98.890 11/09/2016 @ [facility], per Dr. Shama Harley: normal coronaries 04/07/2018 @ [facility] per Dr. Stokes: normal coronaries History [...] M with a significant history of HTN, MN, thoracic aortic aneurysm, and A. 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 Code Visit Inpatient E AND M: [id number] Init Hosp L2 05/16/18 0545 <Electronically signed by Jayden Mike MD> Date Jayden Mike MD Cosigner Signature: Date (if applicable) CC: Nyla Bearden MD; Jayden Mike MD Signed PROTHROMBIN TIME W/INR Collected: 05/16/2018 Status: F Source: [place] 5:12 AM [facility] REPOSITORY Order Comment: Comments: stress test protocol TYPE CODE TESTS RESULT OUT OF RANGE REFERENCE UNITS LAB L300.4150 11.7-14.9 SECONDS Normal PROTIME 13.7 LAB L300.4200 Normal INR 1.1 Performed By: #### L300.3900, L300.4310, L500.2500 #### [facility] [address] [place], [place], [id number] PARTIAL THROMBOPLAST Collected: 05/16/2018 Status: F Source: [place] TIME 5:12 AM [facility] REPOSITORY Order Comment: Comments: stress test protocol TYPE CODE TESTS RESULT OUT OF RANGE REFERENCE UNITS LAB L300.4310 24.1-36.2 Seconds Normal PTT 30.4 Performed By: #### L300.3900, L300.4310, L500.2500 #### [facility] [address] [place], [address] BASIC METABOLIC Collected: 05/16/2018 Status: F Source: [place] PROFILE (BMP) 5:12 AM [facility] REPOSITORY Order Comment: Comments: stress test protocol [...] Performed By: #### L300.3900, L300.4310, L500.2500 #### [facility] [address] [place], [place], [address] CBC-COMPLETE BLOOD CNT Collected: 05/16/2018 Status: F Source: [place] NO DIFF 5:12 AM [facility] REPOSITORY TYPE CODE TESTS RESULT OUT OF [...] MPV 8.7 Performed By: #### L100.0500 #### [facility] [address] [place], [address] TROPONIN-I Collected: 05/16/2018 Status: F Source: [place] 1:30 AM [facility] REPOSITORY Order Comment: 'TROP' Serial specimen #1, #2 or #3: 3 TYPE CODE TESTS RESULT OUT OF RANGE REFERENCE UNITS LAB L501.4010 <0.045 ng/mL Normal < 0.015 TROPONIN-I Result Comment: TROPONIN-I EXPECTED VALUES <0.045 Negative 0.045 - 0.590 Consistent with Cardiac Damage > OR = 0.600 Critical Value Not every elevated troponin is indicative of MN. These values should be used with clinical judgement in examining the patient's clinical picture for diagnosis. To establish a diagnosis of MN versus myocardial injury, there must be a demonstrated rise and/or fall in the troponin values, in addition to ischemic symptoms, EKG changes, new regional wall motion abnormality, and/or angiographical evidence. PLEASE NOTE: REFERENCE RANGES EDITED 18 Performed By: #### L501.4010 #### [facility] [address] [facility] [place], [address] EMERGENCY DEPARTMENT Observed: 05/15/2018 Status: F Source: [place] SUMMARY 9:05 PM [facility] REPOSITORY [facility] Medical Records Department [address] [place] [address] Emergency Department Summary 05/15/18 1855 MR#: [id number] Acct: [id number] Name: ATTILA DEL CID Rep #: [id number] : 1970 48 From: Keyon Grace MD PCP: Nyla Bearden MD Status: REG ER - ER Visit Summary Date of Service: 05/15/18 Chief Complaint: [] Chest pain for 3 or 4 days recently admitted [facility] with negative workup History of Present Illness: The patient is a 48 M [] 3 of A. fib history of mild heart attack, reports that he has been having chest pain since about Saturday or Saturday he was admitted [facility] on Saturday stay there for about 2448 hrs., during that visit he indicates he was told his cardiac workup was negative including a negative chest CTA for dissection or PE as he has a history of a thoracic aneurysm measuring 4.7 cm. He is seen by a car trimmer named Dr. Vásquez in the [place] area at [facility] there is some thought [...] will try to review the records from [place] to evaluate all the above and arrange for admission for cardiac stress testing and further management of his arrhythmia/A. fib as clinically warranted Test Results: [] Emergency Department Course and Treatment: [] Please note the patient's labs are all unremarkable as his EKG and chest x-ray, we are waiting the results of the records from [facility] and the CTA report the plan is as above, discussed with hospitalist Treatment Plan: [] Disposition: [] Admit evaluation for chest pain Impression: [] Chest pain etiology unclear history of thoracic aneurysm 4.7 cm, history of A. fib This note was generated with Preggers dictation software. It may contain incorrect words, spelling, and punctuation that were not noted in review of the chart prior to signing ED Disposition - Plan for ED Patient: Chief Complaint: Chest Pain Referrals: Nlya Bearden MD [Primary Care Provider] - What to do if you have Problems For any increased pain, shortness of breath, bleeding, nausea or vomiting, chest pain, or any unexpected problems, contact your Primary Care Provider. Call [facility] ([phone]) or report to the closest Emergency Room. Call 911 if necessary. 05/15/182104 <Electronically signed by Keyon Grace MD> Date Keyon Grace MD Cosigner Signature (If Indicated): Date CC: Nyla Bearden MD CHEST 1 VIEW Observed: 05/15/2018 Status: F Source: [place] (PORTABLE) 6:43 PM [facility] REPOSITORY [facility] Imaging Services [address] [place] [address] Chest 1 View (Portable) MR#: [id number] Acct: [id number] Name: ATTILA DEL CID Rep #: [id number] : 1970 M 48 From: Sasha Valverde MD PCP: Nyla Bearden MD Status: PRE ER Study: Chest 1 View (Portable) Date of Exam: 05/15/18 Exam# [id number] Ordering Dr: Keyon Grace MD STUDY: X-RAY [...] CC: MD García Grace; Nyla Bearden MD Grill Chef: Signed CBC W/DIFF, AUTOMATED Collected: 05/15/2018 Status: F Source: [place] 6:40 PM [facility] REPOSITORY TYPE CODE TESTS RESULT OUT OF [...] Performed By: #### L100.0100, L500.2500, L501.4010 #### [facility] [address] [place], [address] BASIC METABOLIC Collected: 05/15/2018 Status: F Source: [place] PROFILE (BMP) 6:40 PM [facility] REPOSITORY TYPE CODE TESTS RESULT OUT OF [...] Performed By: #### L100.0100, L500.2500, L501.4010 #### [facility] [address] [place], [address] TROPONIN-I Collected: 05/15/2018 Status: F Source: [place] 6:40 PM [facility] REPOSITORY TYPE CODE TESTS RESULT OUT OF RANGE REFERENCE UNITS LAB L501.4010 <0.045 ng/mL Normal < 0.015 TROPONIN-I Result Comment: TROPONIN-I EXPECTED VALUES <0.045 Negative 0.045 - 0.590 Consistent with Cardiac Damage > OR = 0.600 Critical Value Not every elevated troponin is indicative of MN. These values should be used with clinical judgement in examining the patient's clinical picture for diagnosis. To establish a diagnosis of MN versus myocardial injury, there must be a demonstrated rise and/or fall in the troponin values, in addition to ischemic symptoms, EKG changes, new regional wall motion abnormality, and/or angiographical evidence. PLEASE NOTE: REFERENCE RANGES EDITED 18 Performed By: #### L100.0100, L500.2500, L501.4010 #### [facility] [address] [place], [address] BNP,B-TYPE NATRIURETIC Collected: 05/15/2018 Status: F Source: [place] 6:40 PM [facility] REPOSITORY TYPE CODE TESTS RESULT OUT OF RANGE REFERENCE UNITS LAB L503.6620 0-100 pg/mL Normal B-TYPE 6.8 ABIDA PEP Performed By: #### L503.6620 #### [facility] [address] [facility] [place], [address] ORTHOPEDIC VISIT Observed: 05/15/2018 Status: F Source: [place] REPORT 10:18 AM [facility] REPOSITORY [facility] [address] [place] [address] OFFICE VISIT Date of Service: 05/15/18 MR#: [id number] Acct: [id number] Name: ATTILA DEL CID Rep #: [id number] : 1970 Provider: Claribel Chicorelli DO Age/Sex: 48/M Location: BMS.SMO Status: Signed Intake Intake Visit Reasons: Right [...] sleep apnea) (Chronic) Atherosclerotic heart disease of [place] coronary artery without angina pectoris (Chronic) Nephrolithiasis [...] home: Yes HPI Right Wrist Pain: Details: ATTLIA DEL CID is a 48 year old M here today for review his recent EMG and that he continues to have tingling and pain. 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 [...] Performing Provider: Claribel Batista DO Administered by: Clraibel Batista DO on 05/15/18 09:26 Dose Route Admin Location Lot Number Expiration DateNDC Ham Doctor 0.5 mg Tendon Sheath Iright carpal AAU 3232 02/18/19 [id number] [facility] Assessment AND Plan 1. Right carpal tunnel [...] 0.5 mg (0.01 mL) Tendon Sheath Inj. M25.531 Jagdish Paul Discontinued Reason: Office MedicaONCE NS tion has been Documented as given Coding Level of Care Code Off vis,est,level 4 Diagnoses Right carpal tunnel syndrome G56.01 Additional Codes electrical line splicer.carp ([id number]) 05/15/18 1018 <Electronically signed by Claribel Batista DO> Date Claribel Batista DO Cosigner Signature: Date (if applicable) CC: PROCEDURE Observed: 05/14/2018 Status: COMPLETED Source: [place] 11:39 AM [facility] OTHER [facility]AMPUS REPOSITORY HNO ID: [id number] Author: Camron Perez Service: (none) Author Type: Physician Type: Procedures Filed: 05/14/2018 11:41 AM Note Text: CYSTOSCOPY PROCEDURE NOTE: Attila Del Cid is a 48 year old male who presents with Indwelling right ureteral stent for cystoscopy and stent removal. Pt ID verified with patient: Yes Procedure verified with patient: Yes Procedure confirmed with physician and student support advisor: Yes Pre Procedure Pain Assessment: 0 Sign [...] M.D. CNOV Observed: 05/14/2018 Status: COMPLETED Source: [place] 9:30 AM [facility] OTHER [facility]US REPOSITORY Office Visit (AKURGR) ATTILA DEL CID ([id number]) 1970 M [facility] Date Time Provider Department 05/14/18 9:30 AM CAMRON PEREZ During your visit today, we recorded the following information about you: Blood pressure Weight Height 142/90 111.1 kg 1.803 m Linda Raymundo [facility] 05/14/2018 9:45 AM Signed Attila Del Cid has been off all blood thinners for 0 days. Allergies are ALLERGIES Allergen Reactions - Celebrex [Celecoxib] Vomiting Nausea - Clonidine Rash - Fentanyl GI Upset - Levofloxacin Rash pt reports to [facility] PT 04-13-2017 - Penicillin G Rash - Relpax [Eletriptan * Vomiting Nausea - Topamax [Topiramate] Vomiting - Vicodin [Hydrocodon* Vomiting - Wellbutrin [Bupropi* Vomiting Nausea Allergy to amoxicillin, betadine, cipro, latex or lidocaine? Yes Meds given prior to procedure: Keflex 500 mg Lot #[id number] EX # 10/2018 Linda Fonseca [facility] Camron Perez MD 05/14/2018 11:41 AM Signed CYSTOSCOPY PROCEDURE NOTE: Attila Del Cid is a 48 year old male who presents with Indwelling right ureteral stent for cystoscopy and stent removal. Pt ID verified with patient: Yes Procedure verified with patient: Yes Procedure confirmed with physician and student support advisor: Yes Pre Procedure Pain Assessment: 0 Sign [...] Camron Candelaria M.D. Referring Provider: NYLA BEARDEN [[id number]] Allergies As of Date: 05/14/2018 Noted Allergy Reaction CELEBREX (CELECOXIB) 07/17/2016 11 - Vomiting Comments: Nausea CLONIDINE 07/17/2016 2 - Rash FENTANYL 07/17/2016 8 - GI Upset LEVOFLOXACIN 04/13/2017 2 - Rash Comments: pt reports to [facility] PT - PENICILLIN G 12/30/2013 2 - [...] of kidney [N20.0] Order(s):UA DIP, URINE (POC) [[id number]] Order #: [id number] #:[id number] CYSTO W/URETER STENT EXTRACT [90864MGZ] Order #: [id number] XR ABDOMEN 1V SUPINE [[id number]] Order #: [id number] FUTURE Prescriptions as of 05/14/2018 Sig: ATORVASTATIN [...] 25 mg by mouth every 6 h* BJUHGMEGIK-YVFEQANSDTCEH-XQUF* BUSPIRONE 7.5 MG TABLET Take 7.5 mg [...] INVALID FOR* Visit Notes: >> Linda Fonseca [facility] Wed May 14, 2018 9:32 AM Status: Signed Attila Del Cid has been off all blood thinners for 0 days. Allergies are ALLERGIES Allergen Reactions - Celebrex [Celecoxib] Vomiting Nausea - Clonidine Rash - Fentanyl GI Upset - Levofloxacin Rash pt reports to [facility] PT 04-13-2017 - Penicillin G Rash - Relpax [Eletriptan * Vomiting Nausea - Topamax [Topiramate] Vomiting - Vicodin [Hydrocodon* Vomiting - Wellbutrin [Bupropi* Vomiting Nausea Allergy to amoxicillin, betadine, cipro, latex or lidocaine? Yes Meds given prior to procedure: Keflex 500 mg Lot #[id number] EX # 10/2018 Linda Fonseca [facility] Encounter Status:Closed by CAMRON PEREZ MD on 05/14/18 HIGH SENS TROPONIN T Collected: 05/13/2018 Status: F Source: [place] 8:32 PM [facility] OTHER CAMPUS REPOSITORY TYPE CODE TESTS [...] day MACE. Performed By: #### HSTNT #### [facility] [address] [facility] [phone] CT CHEST W IVCON PE Observed: 05/13/2018 Status: F Source: [place] 8:21 PM CLINIC OTHER CAMPUS REPOSITORY * * *Final Report* * * DATE OF EXAM: May 13 2018 8:21PM [facility] 0540 - CT CHEST [...] aorta 3. No pleural effusion or consolidation Grill Chef: [facility] Transcribe Date/Time: May 13 2018 8:31P Dictated by : SHERIN RAYMOND MD This examination was interpreted and the report reviewed and electronically signed by: SHERIN RAYMOND MD on May 13 2018 8:36PM EST [id number] EKG Observed: 05/13/2018 Status: F Source: [place] 8:15 PM [facility] OTHER CAMPUS REPOSITORY NAME : ATTILA DEL CID PID : [id number] : 1970 Gender : Male Race : ORD : [id number] Procedure Date : May 13 2018 20:15:02 Edit Date : May 14 2018 08:26:10 Diagnosis:NORMAL SINUS RHYTHM MINIMAL VOLTAGE CRITERIA FOR LVH, MAY BE NORMAL VARIANT BORDERLINE ECG WHEN COMPARED WITH ECG OF 13-MAY-2018 18:33, NO SIGNIFICANT CHANGE WAS FOUND Confirmed by MD Stroud Qarab ([id number]) on 05/14/2018 8:26:07 AM Ventricular Rate : 82 BPM Atrial Rate : 82 BPM P-R Interval : 158 ms QRS Duration : 74 ms Q-T Interval : 384 ms QTC Calculation(Bezet) : 448 ms P Bon Aqua : 12 degrees R Bon Aqua : -1 degrees T Bon Aqua : -3 degrees Test Reason : Chest Pain Location : 1 : ER 15 Overread By : MD Stroud Qarab Edited By : MD Stroud Qarab Referred By : , Acquired by : DAYANNA CBC AND DIFFERENTIAL Collected: 05/13/2018 Status: F Source: [place] 7:12 PM [facility] OTHER [facility]AMPUS REPOSITORY TYPE [...] k/uL Abs Lymph 2.64 LAB AMONO % Long% 11.3 LAB AAMONO <0.87 k/uL Abs Long High 0.90 LAB AEOS % Eosin% 1.3 LAB AAEOS <0.46 k/uL Abs Eosin 0.10 LAB ABASO % Baso% 0.5 LAB AABASO <0.11 k/uL Abs Baso 0.04 Performed By: #### CBCDIF, CMP, MG1 #### [facility] [address] [phone] COMP METABOLIC PANEL Collected: 05/13/2018 Status: F Source: [place] 7:12 PM [facility] OTHER CAMPUS REPOSITORY TYPE [...] mg/dL Glucose High 107 Result Comment: The [place] Diabetes Association (ADA) provides guidance for cutoff [...] Standards of Medical Care in Diabetes 2016, [place] [employer] Association. Diabetes Care. 2016.39(Suppl 1). LAB [...] Performed By: #### CBCDIF, CMP, MG1 #### [facility] [address] [phone] MAGNESIUM Collected: 05/13/2018 Status: F Source: [place] 7:12 PM [facility] OTHER [place] REPOSITORY TYPE CODE TESTS RESULT OUT OF REFERENCE UNITS RANGE LAB MG 1.7-2.3 mg/dL Magnesium 2.0 Performed By: #### CBCDIF, CMP, MG1 #### [facility] [address] [phone] CK, TOTAL AND CKMB Collected: 05/13/2018 Status: F Source: [place] 7:12 [facility] REPOSITORY TYPE CODE TESTS RESULT OUT OF REFERENCE UNITS RANGE LAB CK 51-298 U/L 82 CK LAB MB <7.7 ng/mL MB 1.2 LAB CKMBRI 0.0-4.0 % CK CK MB MB % not % reported with CK <100 U/L. Performed By: #### CKCKMB #### [facility] [address] [phone] HIGH SENS TROPONIN T Collected: 05/13/2018 Status: F Source: [place] 7:12 [facility] OTHER [place] REPOSITORY TYPE CODE TESTS RESULT OUT OF [...] day MACE. Performed By: #### HSTNT #### [facility] [address] [place] [address] ED PROV NOTE Observed: 05/13/2018 Status: COMPLETED Source: [place] 7:04 PM [facility] OTHER CAMPUS REPOSITORY HNO ID: [id number] Author: Isma Jenkins (Pa) Service: Emergency Medicine Author Type: Physician Paving And Surfacing Labourer Type: ED Provider Notes Filed: 05/13/2018 9:17 [...] SURGERY HX Right 03/2017 patella replacement - CT ANESTH,KNEE JOINT; NOS 12/2017 Left FAMILY HISTORY [...] Upset - Levofloxacin Rash pt reports to [facility] PT 04-13-2017 - Penicillin G Rash - [...] aorta 3. No pleural effusion or consolidation Grill Chef: NEAL Transcribe Date/Time: May 13 2018 8:31P [...] Abs Lymph 2.64 1.00 - 4.00 k/uL Long% 11.3 % Abs Long 0.90 (H) <0.87 k/uL Eosin% 1.3 % [...] in writing to patient (patient guardian / territory sales representative), who verbalized understanding. This note was partially generated using Preggers voice recognition system, and there may be [...] ED NOTE Observed: 05/13/2018 Status: COMPLETED Source: [place] 6:38 PM [facility]IN[facility] OTHER CAMPUS REPOSITORY O ID: [id number] Author: Jonah Sloan) NINA Tobias Service: (none) Author Type: Registered Nurse [...] position EKG Observed: 05/13/2018 Status: F Source: [place] 6:33 PM [facility]INIC OTHER CAMPUS REPOSITORY NAME : ATTILA DEL CID PID : [id number] : 1970 Gender : Male Race : ORD : [id number] Procedure Date : May 13 2018 18:33:19 Edit Date : May 14 2018 08:26:45 Diagnosis:NORMAL SINUS RHYTHM NORMAL ECG NO PREVIOUS ECGS AVAILABLE Confirmed by MD Stroud Qarab ([id number]) on 05/14/2018 8:26:38 AM Ventricular Rate : 95 BPM Atrial Rate : 95 BPM P-R Interval : 148 ms QRS Duration : 84 ms Q-T Interval : 344 ms QTC Calculation(Bezet) : 432 ms P Bon Aqua : -9 degrees R Bon Aqua : 6 degrees T Bon Aqua : 12 degrees Test Reason : Chest Pain Location : 1 : ER ED Overread By : MD Stroud Qarab Edited By : MD Stroud Qarab Referred By : , Acquired by : SP, EMERGENCY DEPARTMENT Observed: 05/08/2018 Status: F Source: [facility] 10:32 AM [facility] REPOSITORY [facility] Medical Records Department [address] [place] [address] Emergency Department Summary 05/07/18 2329 MR#: [id number] Acct: [id number] Name: ATTILA DEL CID Rep #: [id number] : 1970 48 From: Diana Mays MD [...] the following day. His procedure was done [facility] with Dr. Perez. Patient states he [...] stent placement This note was generated with Preggers dictation software. It may contain incorrect words, [...] problems, contact your Primary Care Provider. Call [facility] ([phone]) or report to the closest Emergency Room. Call 911 if necessary. 05/08/18 1032 <Electronically signed by Diana Mays MD> Date Diana Mays MD Cosigner Signature (If Indicated): Date CC: Nyla Bearden MD DISCHARGE INSTRUCTION Observed: 05/07/2018 Status: F Source: [place] 11:32 PM [facility] REPOSITORY [facility] Medical Records Department [address] [place] [address] Discharge Instruction 05/07/18 4829 MR#: [id number] Acct: [id number] Name: ATTILA DEL CID Rep #: [id number] : 1970 48 From: Diana Mays MD [...] your Primary Care Provider. Call [facility] ([phone]) or report to the closest Emergency Room. Call 911 if necessary. 05/07/18 8058 <Electronically signed by Diana Mays MD> Date Diana Gabriel Signature (If Indicated): Date CC: Nyla Bearden MD CBC W/DIFF, AUTOMATED Collected: 05/07/2018 Status: F Source: [place] 9:18 PM [facility] REPOSITORY TYPE CODE TESTS RESULT OUT OF [...] Lymph 2.54 Performed By: #### L100.0100 #### [facility] [address] [place], [address] BASIC METABOLIC Collected: 05/07/2018 Status: F Source: [place] PROFILE (BMP) 9:18 PM [facility] REPOSITORY TYPE CODE TESTS RESULT OUT OF [...] Normal 8 Performed By: #### L500.2500 #### [facility] [address] [place], [address] URINALYSIS, COMPLETE Collected: 05/07/2018 Status: F Source: [place] 9:12 PM [facility] REPOSITORY Order Comment: How was Urine Obtained? [...] URINE SEEN Performed By: #### L400.0001 #### [facility] [address] [facility] [place], [address] ABDOMEN/PELVIS WITHOUT Observed: 05/07/2018 Status: F Source: [place] CONT 9:07 PM [facility] REPOSITORY [facility] Imaging Services [address] [place] [address] Abdomen/Pelvis without Cont MR#: [id number] Acct: [id number] Name: ATTILA DEL CID Rep #: [id number] : 1970 M 48 From: Freddy Contreras MD PCP: Nyla Bearden MD Status: REG ER Study: Abdomen/Pelvis without Cont Date of Exam: 05/07/18 Exam# [id number] Ordering Dr: Diana Mays MD STUDY: CT [...] CC: Nyla Bearden MD; Diana Mays MD Grill Chef: Signed PROGRESS Observed: 05/06/2018 Status: COMPLETED Source: [place] 9:01 PM [facility] REPOSITORY HNO ID: [id number] Author: Alexus Merino (Rafy Fitzpatrick Service: (none) Author Type: Nurse Practitioner Type: [...] SURGERY HX Right 03/2017 patella replacement - CT ANESTH,KNEE JOINT; NOS 12/2017 Left ALLERGIES Celebrex [...] Patient agreeable to treatment plan. Alexus Fitzpatrick APRN.CNP Observed: 05/06/2018 Status: F Source: [place] URINE CULTURE 7:50 PM [facility] REPOSITORY Sp. Request/Comment: - Specimen received in preservative Culture Result - No growth (<1,000 CFU/ml) Performed By: #### URCUL #### [facility] [address] [place] [address] CNOV Observed: 05/06/2018 Status: COMPLETED Source: [place] 7:30 PM [facility] REPOSITORY Office Visit (UCWSTR) ATTILA DEL CID ([id number]) 1970 [facility] Date Time Provider Department 05/06/18 7:30 PM ALEXUS FITZPATRICK (MOBILE APPLICATION ENGINEER) WSTR During your visit today, we recorded [...] SURGERY HX Right 03/2017 patella replacement - CT ANESTH,KNEE JOINT; NOS 12/2017 Left ALLERGIES Celebrex [...] Patient agreeable to treatment plan. Alexus Fitzpatrick APRN.NEEDLE PROCESS FELT GOODS SUPERVISOR Referring Provider: SELF [200] Allergies As of Date: 05/06/2018 Noted Allergy Reaction CELEBREX (CELECOXIB) 07/17/2016 11 - Vomiting Comments: Nausea CLONIDINE 07/17/2016 2 - Rash FENTANYL 07/17/2016 8 - GI Upset LEVOFLOXACIN 04/13/2017 2 - Rash Comments: pt reports to [facility] PT 6--2017 PENICILLIN G 12/30/2013 2 - Rash RELPAX (ELETRIPTAN HBR) 07/17/2016 11 - Vomiting Comments: Nausea TOPAMAX (TOPIRAMATE) 07/17/2016 11 - Vomiting VICODIN (HYDROCODONE-ACETAMINOPHE*12/30/2013 11 - Vomiting WELLBUTRIN (BUPROPION HCL) 07/17/2016 11 - Vomiting Comments: Nausea Date Reviewed: 05/06/2018 Reviewed by: Alexus Moore) Amari - Fully Assessed Primary Visit Diagnosis:Urinary frequency [R35.0] Other Visit Diagnosis:Burning with urination [R30.0] Order(s):UA DIP B/O [[id number]] Order #: [id number] URINE CULTURE [SQURCUL] Order #: [id number] cephALEXin (KEFLEX) 500 mg capsuleTake 1 capsule [...] d* TAMSULOSIN 0.4 MG CAPSULE every day XOZSXUZDAT-UWPXQLSONQKXL-OHAU* GABAPENTIN 300 MG CAPSULE APIXABAN 5 MG [...] Encounter Status:Closed by ALEXUS FITZPATRICK on 05/07/18 RADHA Observed: 05/05/2018 Status: COMPLETED Source: [place] 12:00 AM [facility] REPOSITORY Telephone (AKURFL) ATTILA DEL CID ([id number]) 1970 [facility] Date Time Provider Department 05/05/18 CAMRON PEREZ During your visit today, we recorded the following information about you: Andrewsylvie Singh CMA 05/05/2018 11:00 AM Signed Pt [...] to call with any other questions. Andrew Signh CMA Allergies As of Date: 05/05/2018 Noted Allergy Reaction CELEBREX (CELECOXIB) 07/17/2016 11 - Vomiting Comments: Nausea CLONIDINE 07/17/2016 2 - Rash FENTANYL 07/17/2016 8 - GI Upset LEVOFLOXACIN 04/13/2017 2 - Rash Comments: pt reports to [facility] PT --2016 PENICILLIN G 12/30/2013 2 - Rash RELPAX (ELETRIPTAN HBR) 07/17/2016 11 - Vomiting Comments: Nausea TOPAMAX (TOPIRAMATE) 07/17/2016 11 - Vomiting VICODIN (HYDROCODONE-ACETAMINOPHE*12/30/2013 11 - Vomiting WELLBUTRIN (BUPROPION HCL) 07/17/2016 11 - Vomiting Comments: Nausea Date Reviewed: 05/02/2018 Reviewed by: Linda (Rn) NINA Low - Fully Assessed Reason for Visit: [...] * TAMSULOSIN 0.4 MG CAPSULE every day [id number]* GABAPENTIN 300 MG CAPSULE APIXABAN 5 MG [...] OPERATIVE NO Observed: 05/02/2018 Status: COMPLETED Source: [place] 2:23 PM CLINIC OTHER CAMPUS REPOSITORY O ID: [id number] Author: René Morales Service: Urology Author Type: Physician Type: Operative Report Filed: 05/02/2018 4:04 PM Note Text: UROLOGY OPERATIVE REPORT PATIENT NAME: Attila Del Cid DATE OF : 1970 TODAY'S DATE: 05/02/18 PreOp Dx: Right flank pain PostOp Dx: Same Operation: Cystoscopy, bilateral retrograde pyelograms, right ureteral stent insertion Surgeon: René Morales MD Assist: Drew Bianchi MD EBL Minimal Drains/Stent: [id number] [place]: none Specimen: none Medications/fluids: Per anesthesia notes [...] free of filling defects, strictures, or hydronephrosis. Brewer catheter was advanced over the wire to [...] room. Drew Bianchi MD Urology, PGY-3 Pager [phone] 05/02/18 2:23 PM I was present and participated during the entire procedure, including on gauthier portions. René Morales M.D. UROGRAM RETROGRADE Observed: 05/02/2018 Status: F Source: [facility] 2:04 PM HEALTH SYSTEM REPOSITORY Performed at [facility] APPROVED BY: Aman Alejandra MD EXAM TITLE: [...] NURSING PROG Observed: 05/02/2018 Status: COMPLETED Source: [place] 1:43 PM [facility] REPOSITORY HNO ID: [id number] Author: Trixie (Rn) NINA Lewis Service: Nursing Author Type: Registered Nurse Type: Nursing Progress Note Filed: 05/02/2018 1:45 PM Note Text: 1340 Pt returned to OR for stint placement Eyeglasses , hearing aid and phone in lock box This chart closed and new chart started for OR ANES PREOP Observed: 05/02/2018 Status: COMPLETED Source: [place] 1:18 PM [facility] REPOSITORY HNO ID: [id number] Author: Bradly Cuevas Service: Anesthesiology Author Type: Physician Type: Anesthesia PreOp Filed: 05/02/2018 1:20 PM Note Text: ANESTHESIOLOGY DAY OF SURGERY NOTE SERVICE DATE: 05/02/2018 SERVICE TIME: 1:18 PM : 1970 Procedure(s) (LRB): cystoscopy, right INSERTION STENT URETERAL (Right) Surgeon(s): René Russell (Res) Ali Estimated body mass index is 33.47 kg/m? [...] SURGERY HX Right 03/2017 patella replacement - CT ANESTH,KNEE JOINT; NOS 12/2017 Left FAMILY HISTORY [...] tab(s) (BUSPAR) 7.5 mg ORAL BID Byron (Res) Yunker 7.5 mg at 05/01/182099 flecainide 100 mg tab(s) (TAMBOCOR) 100 mg ORAL BID Byron (Res) Pipernker 100 mg at 05/01/182099 gabapentin 300 mg cap(s) (NEURONTIN) 300 mg ORAL DAILY Byron (Res) Yunker 300 mg at 05/01/182029 lisinopril 20 mg tab(s) (ZESTRIL, PRINIVIL) 20 mg ORAL DAILY Byron (Res) Yunker 20 mg at 05/01/182029 albuterol HFA 90 mcg/actuation 2 Puff (PROVENTIL HFA, VENTOLIN HFA) 2 Puff INHALATION q 4 H PRN Byron (Dillan) Giuseppe amLODIPine 5 mg tab(s) (NORVASC) 5 mg ORAL DAILY Byron (Dillan) Yunker 5 mg at 05/01/182029 apixaban 5 mg tab(s) (ELIQUIS) 5 mg ORAL BID Byron (Francisco Saldañanker 5 mg at 05/02/18 0835 sertraline 200 mg tab(s) (ZOLOFT) 200 mg ORAL DAILY Byron Chin pantoprazole DR 40 mg tab(s) (PROTONIX) 40 mg ORAL DAILY Byron (Francisco Chin 40 mg at 05/02/18 0837 NaCl 0.9% iv infusion 100 mL/hr INTRAVENOUS CONTINUOUS Byron Chin Last Rate: 100 mL/hr at 05/01/18 1800 100 mL/hr at 05/01/18 1800 oxyCODONE-acetaminophen 5-325 mg 1-2 tablet (PERCOCET) 1-2 tablet ORAL q 4 H PRN Byron Chin 2 tablet at 05/01/18 2107 morphine 1-2 mg injection 1-2 mg INTRAVENOUS q 2 H PRN Byron Chin 2 mg at 05/02/18 0836 ondansetron (PF) 4 mg injection (ZOFRAN) 4 mg INTRAVENOUS q 6 H PRN Byron (Dillan) Giuseppe tamsulosin ER 0.4 mg cap(s) (FLOMAX) 0.4 mg ORAL DAILY Byron (Francisco Chin 0.4 mg at 05/02/18 0600 prochlorperazine 5 mg injection (COMPAZINE) 5 mg INTRAVENOUS q 6 H PRN Byron (Francisco Chin ketorolac 30 mg injection (TORADOL) 30 mg INTRAVENOUS q 6 H Byron Chin 30 mg at 05/02/18 0835 Followed by ibuprofen 600 mg tab(s) (MOTRIN) 600 mg ORAL q 6 H Byron (Dillan) Giuseppe docusate sodium 100 mg cap(s) (COLACE) 100 mg ORAL BID Byron (Francisco Chin 100 mg at 05/01/18 2100 Allergies: ALLERGIES Allergen Reactions - Celebrex [Celecoxib] Vomiting Nausea - Clonidine Rash - Fentanyl GI Upset - Levofloxacin Rash pt reports to [facility] PT 04-13-2017 - Penicillin G Rash - [...] May 02, 2018 TIME: 1:18 PM CSN: [id number] NURSING PROG Observed: 05/02/2018 Status: COMPLETED Source: [place] 11:30 AM [facility] REPOSITORY HNO ID: [id number] Author: Trixie AminRn) NINA Lewis Service: Nursing Author Type: Registered Nurse Type: Nursing Progress Note Filed: 05/02/2018 11:31 AM Note Text: 1030 Pt notified of OR time 1345 for stint placement NURSING PROG Observed: 05/02/2018 Status: COMPLETED Source: [place] 8:39 AM [facility] REPOSITORY HNO ID: [id number] Author: Trixie AminRn) Joshua RN Service: Nursing Author Type: Registered Nurse Type: Nursing Progress Note Filed: 05/02/2018 8:41 AM Note Text: Dr Chin at bedside 0745 Talked with pt concerning OR for stent today OR permit signed CNDS Observed: 05/02/2018 Status: COMPLETED Source: [place] 7:43 AM [facility] OTHER [facility] REPOSITORY HNO ID: [id number] Author: Drew Bianchi Service: Urology Author Type: [...] for pain control. Patient continued to have coat presser pain overnight despite IV pain medications and [...] NURSING PROG Observed: 05/02/2018 Status: COMPLETED Source: [place] 6:41 AM [facility] REPOSITORY HNO ID: [id number] Author: Rosi AminRn) NINA Reyes Service: (none) Author Type: Registered Nurse Type: Nursing Progress Note Filed: 05/02/2018 7:02 AM Note Text: Dr. Rajan to bs. Has been decided that pt will go back to OR for stent placement r/t pain throughout night. Pt aware to remain NPO, able to take meds with sips PROGRESS Observed: 05/02/2018 Status: COMPLETED Source: [place] 6:04 AM [facility] REPOSITORY HNO ID: [id number] Author: Diony Gaines DO Service: Urology Author [...] (thou/cmm) Date Value 05/02/2018 236 Urinalysis: Specific [place], Ur Date Value Ref Range Status 03/25/2018 [...] food at 4am Pt still insignificant pain 8/10 requiring IV narcotics to control Discussed with [...] NURSING PROG Observed: 05/02/2018 Status: COMPLETED Source: [place] 4:23 AM [facility] REPOSITORY HNO ID: [id number] Author: Rosi AminRn) NINA Reyes Service: (none) Author Type: Registered Nurse Type: Nursing Progress Note Filed: 05/02/2018 4:24 AM Note Text: Family updated NURSING PROG Observed: 05/02/2018 Status: COMPLETED Source: [place] 3:49 AM [facility] REPOSITORY HNO ID: [id number] Author: Rosi AminRn) NINA Reyes Service: (none) Author Type: Registered Nurse Type: Nursing Progress Note Filed: 05/02/2018 3:49 AM Note Text: {am blood work sent to lab NURSING PROG Observed: 05/02/2018 Status: COMPLETED Source: [place] 3:48 AM [facility] REPOSITORY HNO ID: [id number] Author: Rosi Sloan) King RN Service: (none) Author Type: Registered Nurse Type: Nursing Progress Note Filed: 05/02/2018 3:49 AM Note Text: Pt requests to be ambulated to bathroom so he can Get freshened up. Hygiene supplies provided along with gowns and towels. Pt steady on feet HEMOGRAM Collected: 05/02/2018 Status: F Source: [facility] 3:35 AM HEALTH SYSTEM REPOSITORY TYPE CODE [...] MPV 8.9 Performed By: #### CBC1 #### [place] [address] BASIC PANEL Collected: 05/02/2018 Status: F Source: [facility] 3:35 AM HEALTH SYSTEM REPOSITORY TYPE CODE [...] Gap 11 Performed By: #### P8 #### [place] [address] MDRD GFR Collected: 05/02/2018 Status: F Source: [facility] 3:35 AM HEALTH SYSTEM REPOSITORY TYPE CODE TESTS RESULT OUT OF RANGE REFERENCE UNITS LAB GFRFN(LOINC >60mL/min/1.73m ) 2 eGFR >60 Result Comment: If the patient is , multiply the result by 1.210. Performed By: #### GFR #### [facility] [address] [place] [address] CNPN Observed: 05/02/2018 Status: COMPLETED Source: [place] 12:00 AM CLINIC OTHER CAMPUS REPOSITORY Telephone (UROLAE) ATTILA DEL CID ([id number]) 1970 M T Date Time Provider Department 05/02/18 RENÉ MORALES During your visit today, we recorded the following information about you: René Morales MD 05/02/2018 4:10 PM Signed 05/02/2018: CANDP, Right stent Needs cysto stent d/c 1 week or so. Camron ePrez MD 05/05/2018 7:33 AM Signed Needs cysto stent removal in office in 7 - 10 days Linda [employer] 05/05/2018 8:04 AM Signed Please see message below per provider 05/14/18 - 9:30 in [place] office - THANK YOU Linda [employer] Allergies As of Date: 05/02/2018 Noted Allergy Reaction CELEBREX (CELECOXIB) 07/17/2016 11 - Vomiting Comments: Nausea CLONIDINE 07/17/2016 2 - Rash FENTANYL 07/17/2016 8 - GI Upset LEVOFLOXACIN 04/13/2017 2 - Rash Comments: pt reports to [facility] PT --2016 PENICILLIN G 12/30/2013 2 - Rash RELPAX (ELETRIPTAN HBR) 07/17/2016 11 - Vomiting Comments: Nausea TOPAMAX (TOPIRAMATE) 07/17/2016 11 - Vomiting VICODIN (HYDROCODONE-ACETAMINOPHE*12/30/2013 11 - Vomiting WELLBUTRIN (BUPROPION HCL) 07/17/2016 11 - Vomiting Comments: Nausea Date Reviewed: 05/02/2018 Reviewed by: Linda (Rn) NINA Low - Fully Assessed Reason for Visit: [...] * TAMSULOSIN 0.4 MG CAPSULE every day [id number]* GABAPENTIN 300 MG CAPSULE APIXABAN 5 MG [...] NURSING PROG Observed: 05/01/2018 Status: COMPLETED Source: [place] 9:34 PM CLINIC OTHER CAMPUS REPOSITORY HNO ID: [id number] Author: Rosi (Rn) NINA Reyes Service: (none) Author Type: Registered Nurse [...] PT ED Observed: 05/01/2018 Status: COMPLETED Source: [place] 7:42 PM [facility] OTHER CAMPUS REPOSITORY HNO ID: [id number] Author: Rosi (Rn) King RN Service: (none) Author Type: Registered Nurse Type: Patient Education Filed: 05/01/2018 7:42 PM Note Text: {blood work sent to lab PROTIME Collected: 05/01/2018 Status: F Source: [facility] 7:38 PM HEALTH SYSTEM REPOSITORY TYPE CODE TESTS RESULT OUT OF REFERENCE UNITS RANGE LAB PTI(LOINC) 9.3-11.9 sec Prothrombin Time 10.7 LAB INR(LOINC) INR 1.02 Result Comment: Standard Therapy 2.0-3.0 High Dose 2.5-3.5 Performed By: #### PT #### [place] [address] NURSING PROG Observed: 05/01/2018 Status: COMPLETED Source: [place] 7:33 PM [facility] REPOSITORY HNO ID: [id number] Author: Rosi AminRn) King RN Service: (none) Author Type: Registered Nurse Type: Nursing Progress Note Filed: 05/01/2018 7:34 PM Note Text: Pt moved to PACU spot 1. Placed in hospital bed NURSING PROG Observed: 05/01/2018 Status: COMPLETED Source: [place] 7:16 PM [facility] REPOSITORY HNO ID: [id number] Author: Rosi (Rn) , RN Service: (none) Author Type: Registered Nurse Type: Nursing Progress Note Filed: 05/01/2018 7:17 PM Note Text: Pt eating dinner in nad aware that he will be staying on in PACU ANES POST Observed: 05/01/2018 Status: COMPLETED Source: [place] 5:40 PM CLINIC OTHER CAMPUS REPOSITORY HNO ID: [id number] Author: Keila Delgado Service: Anesthesiology Author Type: [...] NURSING PROG Observed: 05/01/2018 Status: COMPLETED Source: [place] 5:37 PM CLINIC OTHER CAMPUS REPOSITORY HNO ID: [id number] Author: Emilia Sloan) NINA Nathan Service: Nursing Author Type: Registered Nurse Type: Nursing Progress Note Filed: 05/01/2018 5:38 PM Note Text: Dr. Giuseppe villar. NURSING PROG Observed: 05/01/2018 Status: COMPLETED Source: [place] 4:56 PM CLINIC OTHER CAMPUS REPOSITORY HNO ID: [id number] Author: Emilia Sloan) NINA Nathan Service: Nursing Author Type: Registered Nurse Type: Nursing Progress Note Filed: 05/01/2018 4:58 PM Note Text: Dr. Chin notified of pt continued c/o pain 07/30. States someone will be in to evaluate. Family to bedside. NURSING PROG Observed: 05/01/2018 Status: COMPLETED Source: [place] 4:16 PM CLINIC OTHER CAMPUS REPOSITORY HNO ID: [id number] Author: Rossi (Rn) NINA Walls Service: Nursing Author Type: Registered Nurse Type: Nursing Progress Note Filed: 05/01/2018 4:17 PM Note Text: Pt having 10/[address] Chin aware and ordered toradol. Bladder scanned for 97cc. Pt states he doesn't feel like he has to void. UROGRAM RETROGRADE Observed: 05/01/2018 Status: F Source: [facility] 1:26 PM HEALTH SYSTEM REPOSITORY Performed at [facility] APPROVED BY: Jay Fay MD EXAMINATION: RETROGRADE [...] CALCULI ANALYSIS Collected: 05/01/2018 Status: F [facility] 1:15 PM HEALTH SYSTEM REPOSITORY TYPE CODE [...] and its performance characteristics determined by the [facility] [place] ([facility]). It has not been cleared or approved by the FDA. -PL[facility] is regulated under CLIA as qualified to perform high-complexity testing. This test is used for clinical purposes. It should not be regarded as investigational or for research. Performing Laboratory: [facility] [address] [place] [address] Performed By: #### STONX #### [facility] [address] [place] [id number] HISTORY PHYSICAL Observed: 05/01/2018 Status: COMPLETED Source: [place] 12:47 PM CLINIC OTHER CAMPUS REPOSITORY HNO ID: [id number] Author: Camron Perez Service: Urology Author Type: [...] SURGERY HX Right 03/2017 patella replacement - CT ANESTH,KNEE JOINT; NOS 12/2017 Left FAMILY HISTORY [...] 04/28/2018 Neut% 49.5 12/19/2016 Lymph% 37.6 12/19/2016 Long% 10.2 12/19/2016 Eosin% 1.9 12/19/2016 Baso% 0.8 12/19/2016 Abs Neut (ANC) 2.58 12/19/2016 Abs Long 0.53 12/19/2016 Abs Eosin 0.10 12/19/2016 Abs Baso 0.04 12/19/2016 pH, Urine Date Value Ref Range Status 03/25/2018 6.0 5.0 - 8.0 Final Specific [place], Ur Date Value Ref Range Status 03/25/2018 [...] SIGNATURE: Camron Perez MD PATIENT NAME: Attila eDl Cid DATE: May 01, 2018 TIME: 12:47 PM PAGER: ANES PREOP Observed: 05/01/2018 Status: COMPLETED Source: [place] 11:41 AM [facility] REPOSITORY O ID: [id number] Author: Keila Delgado Service: Anesthesiology Author Type: Physician Type: Anesthesia PreOp Filed: 05/01/2018 11:42 AM Note Text: ANESTHESIOLOGY DAY OF SURGERY NOTE SERVICE DATE: 05/01/2018 SERVICE TIME: 11:41 AM : 1970 Procedure(s) (LRB): LASER LITHOTRIPSY STONES URETER ~HOLMIUM (Right) INSERTION STENT DOUBLE J (Right) Surgeon(s): Camron Landa (Francisco Chin Estimated body mass index is 33.47 kg/m? [...] SURGERY HX Right 03/2017 patella replacement - CT ANESTH,KNEE JOINT; NOS 12/2017 Left FAMILY HISTORY [...] Upset - Levofloxacin Rash pt reports to [facility] PT 04-13-2017 - Penicillin G Rash - [...] May 01, 2018 TIME: 11:41 AM CSN: [id number] BRIEF OP NOT Observed: 05/01/2018 Status: COMPLETED Source: [place] 11:15 AM [facility] REPOSITORY HNO ID: [id number] Author: Byron Chin Service: Urology Author Type: Resident Type: Brief Op Note Filed: 05/01/2018 1:47 PM Note Text: UROLOGY BRIEF OPERATIVE NOTE Date: 05/01/2018 Patient Name: Attila Del Cid Date of : 1970 Surgeon: Camron Perez MD Paving And Surfacing Labourer: Byron Chin MD Anesthesia: General Preop Diagnosis: Right renal calculi Postop Diagnosis: Same Procedure: Cystoscopy, pyelograms, right ureteroscopic laser lithotripsy Estimated Blood Loss: <50cc Findings: See OP note Specimens: Stone for analysis Complications: None SIGNATURE: Byron Chin MD PATIENT NAME: Attila Del Cid DATE: May 01, 2018 TIME: 11:15 AM PAGER/CONTACT #: CNPN Observed: 05/01/2018 Status: COMPLETED Source: [place] 12:00 AM [facility] Telephone (AKPRAD) MAR[facility] EUGENIAATTILA K ([id number]) 1970 [facility] Date Time Provider Department 05/01/18 CAMRON PEREZ [...] 2 - Rash Comments: pt reports to [facility] PT 6--2017 PENICILLIN G 12/30/2013 2 - Rash RELPAX (ELETRIPTAN HBR) 07/17/2016 11 - Vomiting Comments: Nausea TOPAMAX (TOPIRAMATE) 07/17/2016 11 - Vomiting VICODIN (HYDROCODONE-ACETAMINOPHE*12/30/2013 11 - Vomiting WELLBUTRIN (BUPROPION HCL) 07/17/2016 11 - Vomiting Comments: Nausea Date Reviewed: 05/01/2018 Reviewed by: Rossi (Rn) NINA Walls - Fully Assessed Reason for Visit: [...] * TAMSULOSIN 0.4 MG CAPSULE every day [id number]* GABAPENTIN 300 MG CAPSULE APIXABAN 5 MG [...] OPERATIVE NO Observed: 05/01/2018 Status: COMPLETED Source: [place] 12:00 AM CLINIC OTHER CAMPUS REPOSITORY HNO ID: [id number] Author: Camron Perez Service: Urology Author Type: Physician Type: Operative Report Filed: 05/02/2018 7:05 AM Note Text: [facility] - Operative Report SURGEON: Camron Perez MD PATIENT NAME: ATTILA DEL CID CSN: [id number] DATE OF SURGERY: 05/01/2018 DATE OF : 1970 SEX/AGE: M/48 PATIENT TYPE: V HOSP SVC: UROL LOCATION: [address] DATE OF SURGERY: 05/01/2018 SURGEON: Camron Perez MD REFERRING PHYSICIAN: CAMRON PEREZ BIOCHEMISTRY TEACHER: Byron Chin MD PREOPERATIVE DIAGNOSIS: Right renal [...] fashion in the dorsal lithotomy position. A #21-Tajik cystoscope with 30-degree lens was inserted into [...] lower pole, which was grasped with a Lamar basket and removed with a stone basket. [...] entire procedure. Camron Perez MD Urology DB:modl /[id number] PROGRESS Observed: 04/30/2018 Status: COMPLETED Source: [place] 2:10 PM CLINIC OTHER CAMPUS REPOSITORY O ID: [id number] Author: Cherelle Demarco Service: (none) Author Type: (none) Type: Progress Notes Filed: 04/30/2018 2:11 PM Note Text: I called Dr. Perez's office spoke to susan regarding consent per susan consent will be done day of surgery. [facility] INTERNAL MEDICINE Observed: 04/29/2018 Status: F Source: [place] OFFICE VISIT 10:46 AM [facility] [place] [address] [place] [address] OFFICE VISIT Date of Service: 04/28/18 MR#: [id number] Acct: [id number] Name: ATTILA DEL CID Rep #: [id number] : 1970 Provider: Nyla Bearden MD Age/Sex: 48/M Location: [facility] Status: Signed Intake Vital Signs04/28/18 Height 5 [...] PO QHS cap 04/28/18 [History Confirmed 04/28/18] [facility] Medical History Ascending aorta dilatation (Chronic) SVT (supraventricular tachycardia) (Chronic) LORETTA (obstructive sleep apnea) (Chronic) Atherosclerotic heart disease of [place] coronary artery without angina pectoris (Chronic) Nephrolithiasis [...] Chief Complaint: follow-up visit Details: ATTILA DEL CID, is a 48yo M who presents to the office today for follow-up of his anxiety. He has done well since starting Lexapro. He denies any new complaints at this time. Scheduled to follow-up at the [facility] to start on sotalol. ROS Const Constitutional: [...] at this time. Scheduled to follow-up at [facility] to be started on sotalol. Will follow. This note was generated with [employer] dictation software. It may contain incorrect words, [...] CC: HEMOGRAM Collected: 04/28/2018 Status: F Source: [facility] 2:20 PM HEALTH SYSTEM REPOSITORY TYPE CODE [...] MPV 9.3 Performed By: #### CBC1 #### [facility] [address] [place] [address] BASIC PANEL Collected: 04/28/2018 Status: F Source: [facility] 2:20 PM HEALTH SYSTEM REPOSITORY TYPE CODE [...] Gap 9 Performed By: #### P8 #### [facility] [address] [place] [address] MDRD GFR Collected: 04/28/2018 Status: F Source: [facility] 2:20 PM HEALTH SYSTEM REPOSITORY TYPE CODE TESTS RESULT OUT OF RANGE REFERENCE UNITS LAB GFRFN(LOINC >60mL/min/1.73m ) 2 eGFR >60 Result Comment: If the patient is , multiply the result by 1.210. Performed By: #### GFR #### [facility] [address] [place] [address] HOSP Observed: 04/25/2018 Status: COMPLETED Source: [place] 12:00 AM CLINIC OTHER CAMPUS REPOSITORY Patient:Attila Del Cid MRN: <[id number]> Height:5' 11(1.803 m) Weight:240 lb (108.863 kg) [...] Melinda Perez MD 05/02/2018 7:05 AM Signed [facility] - Operative Report SURGEON: Camron Perez MD PATIENT NAME: ATTILA DEL CID CSN: [id number] DATE OF SURGERY: 05/01/2018 DATE OF : 1970 SEX/AGE: M/48 PATIENT TYPE: V HOSP SVC: UROL LOCATION: [address] DATE OF SURGERY: 05/01/2018 SURGEON: Camron Perez MD REFERRING PHYSICIAN: CAMRON PEREZ BIOCHEMISTRY TEACHER: Byron Chin MD PREOPERATIVE DIAGNOSIS: Right renal [...] fashion in the dorsal lithotomy position. A #21-Tajik cystoscope with 30-degree lens was inserted into [...] lower pole, which was grasped with a Lamar basket and removed with a stone basket. [...] entire procedure. Camron Perez MD Urology DB:modl /[id number] Byron Chin MD 05/01/2018 1:47 PM Signed UROLOGY BRIEF OPERATIVE NOTE Date: 05/01/2018 Patient Name: Attila Del Cid Date of : 1970 Surgeon: Camron Perez MD [employer]aving And Surfacing Labourer: Byron Chin MD Anesthesia: General Preop Diagnosis: [...] SURGERY HX Right 03/2017 patella replacement - CT ANESTH,KNEE JOINT; NOS 12/2017 Left FAMILY HISTORY [...] Upset - Levofloxacin Rash pt reports to [facility] PT 04-13-2017 - Penicillin G Rash - [...] May 01, 2018 TIME: 11:41 AM CSN: [id number] Camron Perez MD 05/01/2018 12:49 PM Signed [...] SURGERY HX Right 03/2017 patella replacement - CT ANESTH,KNEE JOINT; NOS 12/2017 Left FAMILY HISTORY [...] Patient Vitals in the past 24 hrs: 07/12/18 1148, BP:127/91, Temp:36.5 ?C (97.7 ?F), Temp [...] 04/28/2018 Neut% 49.5 12/19/2016 Lymph% 37.6 12/19/2016 Long% 10.2 12/19/2016 Eosin% 1.9 12/19/2016 Baso% 0.8 12/19/2016 Abs Neut (ANC) 2.58 12/19/2016 Abs Long 0.53 12/19/2016 Abs Eosin 0.10 12/19/2016 Abs Baso 0.04 12/19/2016 pH, Urine Date Value Ref Range Status 03/25/2018 6.0 5.0 - 8.0 Final Specific [place], Ur Date Value Ref Range Status 03/25/2018 [...] 01, 2018 TIME: 12:47 PM PAGER: Rossi Walls RN, RN 05/01/2018 4:17 PM Signed Pt having [address] Chin aware and ordered toradol. Bladder scanned for 97cc. Pt states he doesn't feel like he has to void. Emilia Nathan, NINA, RN 05/01/2018 4:[address] Chin notified of pt continued c/o pain 07/30. States someone will be in to evaluate. Family to bedside. Emilia Nathan RN, RN 05/01/2018 5:[address] Giuseppe villar. Keila Deglado MD 05/01/2018 5:41 PM Signed POST ANESTHESIA [...] take it in the am Rosi Reyes RN, RN 05/02/2018 3:49 AM Signed Pt requests to be ambulated to bathroom so he can Get freshened up. Hygiene supplies provided along with gowns and towels. Pt steady on feet Rosi Reyes RN, RN 05/02/2018 3:49 AM Signed {am blood work sent to lab Rosi Reyes RN, RN 05/02/2018 4:24 AM Signed Family updated Diony Gaines DO, NELY, DO 05/02/2018 1:14 PM Signed UROLOGY PROGRESS [...] (thou/cmm) Date Value 05/02/2018 236 Urinalysis: Specific [place], Ur Date Value Ref Range Status 03/25/2018 [...] food at 4am Pt still insignificant pain 8/10 requiring IV narcotics to control Discussed with [...] 8:[address] Chin at bedside [id number] Talked with pt concerning OR for stent today OR permit signed Trixie Lewis RN, RN 05/02/2018 11:31 AM Signed [id number] Pt notified of OR time 1345 for stint placement Bradly Cuevas MD 05/02/2018 1:20 PM Signed ANESTHESIOLOGY DAY OF SURGERY NOTE SERVICE DATE: 05/02/2018 SERVICE TIME: 1:18 PM : 1970 Procedure(s) (LRB): cystoscopy, right INSERTION STENT URETERAL (Right) Surgeon(s): René Russell (Res) Ali Estimated body mass index is 33.47 kg/m? [...] SURGERY HX Right 03/2017 patella replacement - CT ANESTH,KNEE JOINT; NOS 12/2017 Left FAMILY HISTORY [...] tab(s) (BUSPAR) 7.5 mg ORAL BID Byron (Res) Yunker 7.5 mg at 05/01/182099 flecainide 100 mg [...] iv infusion 100 mL/hr INTRAVENOUS CONTINUOUS Byron (Francisco Chin Last Rate: 100 mL/hr at 05/01/18 1800 100 mL/hr at 05/01/18 1800 oxyCODONE-acetaminophen 5-325 mg 1-2 tablet (PERCOCET) 1-2 tablet ORAL q 4 H PRN Byron (Francisco Chin 2 tablet at 05/01/18 2107 morphine 1-2 mg injection 1-2 mg INTRAVENOUS q 2 H PRN Byron (Francisco Chin 2 mg at 05/02/18 0836 ondansetron (PF) 4 mg injection (ZOFRAN) 4 mg INTRAVENOUS q 6 H PRN Byron (Francisco Chin tamsulosin ER 0.4 mg cap(s) (FLOMAX) 0.4 mg ORAL DAILY Byron (Francisco Chin 0.4 mg at 05/02/18 0600 prochlorperazine 5 mg injection (COMPAZINE) 5 mg INTRAVENOUS q 6 H PRN Byron (Res) Pipernker ketorolac 30 mg injection (TORADOL) 30 mg INTRAVENOUS q 6 H Byron (Res) Yunker 30 mg at 05/02/18 0835 Followed by ibuprofen 600 mg tab(s) (MOTRIN) 600 mg ORAL q 6 H Byrno (Res) Pipernker docusate sodium 100 mg cap(s) (COLACE) 100 mg ORAL BID Byron (Res) Yunker 100 mg at 05/01/18 2100 Allergies: ALLERGIES Allergen Reactions - Celebrex [Celecoxib] Vomiting Nausea - Clonidine Rash - Fentanyl GI Upset - Levofloxacin Rash pt reports to [facility] PT 04-13-2017 - Penicillin G Rash - [...] May 02, 2018 TIME: 1:18 PM CSN: [id number] INTERNAL MEDICINE Observed: 04/22/2018 Status: F Source: [place] OFFICE VISIT 12:31 PM [facility] [address] [place] [address] OFFICE VISIT Date of Service: 04/22/18 MR#: [id number] Acct: [id number] Name: ATTILA DEL CID Rep #: [id number] : 1970 Provider: Tawanda Colon NP Age/Sex: 48/M Location: [facility] Status: Signed Intake Vital Signs04/22/18 Blood Pressure [...] mg PO QDAY 04/22/18 [History Confirmed 04/22/18] PFSH Medical History Ascending aorta dilatation (Chronic) SVT (supraventricular tachycardia) (Chronic) LORETTA (obstructive sleep apnea) (Chronic) Atherosclerotic heart disease of [place] coronary artery without angina pectoris (Chronic) Nephrolithiasis [...] as listed above. The patient presented to [facility] emergency department on 04/09/2018 with complaints of [...] a counseling center [facility] in [facility] and that he is calling [...] being increased to 5 mm in diameter. Rossy disclaimer Plan Detail Other Medications Discontinued: Follow Up 4 weeks or sooner if needed Coding Level of Care Code Off vis,est,level 4 Diagnoses Anxiety F41.9 Chest pain, unspecified type R07.9 Lung nodule R91.1 Essential hypertension I10 Nephrolithiasis N20.0 04/22/18 1231 <Electronically signed by Tawanda KLEIN> Date Tawanda Colon MELISSA-C Cosigner Signature: Date (if applicable) CC: XR ABDOMEN 1V SUPINE Observed: 04/18/2018 Status: F Source: [place] 3:23 PM [facility] REPOSITORY * * *Final Report* * * [...] hardware in the spine. IMPRESSION: RIGHT NEPHROLITHIASIS Grill Chef: PSCTrey Transcribe Date/Time: Apr 18 2018 3:37P Dictated by : SHAMA SHIN MD This examination was interpreted and the report reviewed and electronically signed by: SHAMA SHIN MD on Apr 18 2018 3:39PM EST [id number] Observed: 04/18/2018 Status: COMPLETED Source: [place] 3:17 PM [facility] REPOSITORY HNO ID: [id number] Author: Corrie Abreu (Rt) Roney Lopez Service: (none) Author Type: Affirmative Action Specialist Type: Progress Notes Filed: 04/18/2018 3:24 PM [...] LEAD ELECTROCARDIOGRAM Observed: 04/18/2018 Status: F Source: [place] 9:19 AM [facility] Cardiovascular Services [address] [place] [address] 12 Lead EKG 04/16/181902 MR#: [id number] Acct: [id number] Name: PEGATTILA ORTIZ Lois Rep #: [id number] : 1970 48 From: Jesse Stokes MD [...] EMERGENCY DEPARTMENT Observed: 04/16/2018 Status: F Source: [place] SUMMARY 9:09 PM [facility] Medical Records Department [address] [place] [address] Emergency Department Summary 04/16/181945 MR#: [id number] Acct: [id number] Name: MARIA EUGENIAATTILA K Rep #: [id number] : 1970 48 From: Irwin Alejo MD [...] mild cough. He was driving home from [place] after seeing a cardiothoracic surgeon who has [...] 2. Anxiety This note was generated with Preggers dictation software. It may contain incorrect words, [...] problems, contact your Primary Care Provider. Call [facility] ([phone]) or report to the closest Emergency Room. Call 911 if necessary. 04/16/18 2109 <Electronically signed by Irwin Alejo MD> Date Irwin Alejo MD Cosigner Signature (If Indicated): Date CC: Nyla Bearden MD TROPONIN-I Collected: 04/16/2018 Status: F Source: [place] 7:20 PM [facility] REPOSITORY TYPE CODE TESTS RESULT OUT OF RANGE REFERENCE UNITS LAB L501.4010 <0.045 ng/mL Normal < 0.015 TROPONIN-I Result Comment: TROPONIN-I EXPECTED VALUES <0.045 Negative 0.045 - 0.590 Consistent with Cardiac Damage > OR = 0.600 Critical Value Not every elevated troponin is indicative of MN. These values should be used with clinical judgement in examining the patient's clinical picture for diagnosis. To establish a diagnosis of MN versus myocardial injury, there must be a demonstrated rise and/or fall in the troponin values, in addition to ischemic symptoms, EKG changes, new regional wall motion abnormality, and/or angiographical evidence. PLEASE NOTE: REFERENCE RANGES EDITED 18 Performed By: #### L501.4010 #### [facility] Laboratory [address] [place], [address] CHEST PA AND LATERAL Observed: 04/16/2018 Status: F Source: [place] 7:11 PM [facility] REPOSITORY [facility] Imaging Services [address] [place] [address] Chest PA and Lateral MR#: [id number] Acct: [id number] Name: ATTILA DEL CID Rep #: [id number] : 1970 M 48 From: Chavez Gil MD PCP: Nyla Bearden MD Status: REG ER Study: Chest PA and Lateral Date of Exam: 04/16/18 Exam# [id number] Ordering Dr: Irwin Alejo MD STUDY: X-RAY [...] 20:10 EDT , Service support , CC: Nyla Bearden MD; Irwin Alejo MD Grill Chef: Signed PROGRESS Observed: 04/16/2018 Status: COMPLETED Source: [place] 3:19 PM [facility] REPOSITORY O ID: [id number] Author: Phani Ragsdale Service: (none) Author Type: [...] some difference of opinion between his local car trimmer in [place] and his EP car trimmer in [place] regarding next steps and medications. The patient presented here for discussion of his dilated ascending aorta. He does have sharp-type chest pain which varies in intensity on an almost daily basis. He did apparently undergo a cardiac catheterization in the last several weeks in [place] which, according to the patient, showed normal [...] Upset - Levofloxacin Rash pt reports to [facility] PT 04-13-2017 - Penicillin G Rash - [...] session occupied greater than 20 minutes of yadt-bk-badk time in the exam room. ASSESSMENT: Ectatic [...] months which has been done by his [place] car trimmer.. The patient is already on beta carolee therapy. He was advised to avoid strenuous heavy lifting and to seek medical attention for very severe chest or back pain and to advise any caregivers of the presence of a dilated ascending aorta should he be undergoing evaluation for this. FOLLOW UP: Continue follow-up with his car trimmer in [place]. He had no further questions at this point. Phani Ragsdale MD CNOV Observed: 04/16/2018 Status: COMPLETED Source: [place] 2:30 PM [facility] REPOSITORY Office Visit (AGVASACC) ATTILA DEL CID ([id number]) 1970 M [facility] Date Time Provider Department 04/16/18 2:30 [...] some difference of opinion between his local car trimmer in [place] and his EP car trimmer in [place] regarding next steps and medications. The patient presented here for discussion of his dilated ascending aorta. He does have sharp-type chest pain which varies in intensity on an almost daily basis. He did apparently undergo a cardiac catheterization in the last several weeks in [place] which, according to the patient, showed normal [...] Upset - Levofloxacin Rash pt reports to [facility] PT 04-13-2017 - Penicillin G Rash - [...] session occupied greater than 20 minutes of zgnd-xd-fhrw time in the exam room. ASSESSMENT: Ectatic [...] months which has been done by his [place] car trimmer.. The patient is already on beta carolee therapy. He was advised to avoid strenuous heavy lifting and to seek medical attention for very severe chest or back pain and to advise any caregivers of the presence of a dilated ascending aorta should he be undergoing evaluation for this. FOLLOW UP: Continue follow-up with his car trimmer in [place]. He had no further questions at this point. Phani Ragsdale MD Referring Provider: NYLA BEARDEN [[id number]] Allergies As of Date: 04/16/2018 Noted Allergy Reaction CELEBREX (CELECOXIB) 07/17/2016 11 - Vomiting Comments: Nausea CLONIDINE 07/17/2016 2 - Rash FENTANYL 07/17/2016 8 - GI Upset LEVOFLOXACIN 04/13/2017 2 - Rash Comments: pt reports to [facility] PT 04-13-2016 PENICILLIN G 12/30/2013 2 - Rash RELPAX [...] twice* Patient not taking: Reported on 04/16/2018 [id number]* GABAPENTIN 300 MG CAPSULE OXYCODONE-ACETAMINOPHEN 5 MG-* [...] More... Disposition: Return as needed. F/U w car trimmer in [place].. Follow-up and Disposition History Recorded Letter Text Encounter Status:Closed by PHANI RAGSDALE MD on 04/16/18 NCS AND/OR EMG Observed: 04/15/2018 Status: F Source: [place] PATIENT 10:38 AM [facility] REPOSITORY [facility] Pulmonary Services/Neurology [address] [place] [address] MR#: [id number] Acct: [id number] Name: ATTILA DEL CID Rep #: [id number] : 1970 48 From: Rosales Espinal MD Referring Dr: Claribel Batista DO Status: REG CLI Ordering Dr: Date: Location: [facility] Sex: M C NCS and/or EMG Patient [...] Espinal MD CC: Claribel Batista DO; Nyla Beadren MD; Rosales Espinal MD Date Dictated: 04/15/18 1034 Date Transcribed: 04/15/18 1034 Grill Chef: NF Signed PROGRESS Observed: 04/13/2018 Status: COMPLETED Source: [place] 1:50 PM [facility] REPOSITORY HNO ID: [id number] Author: Sandra (Cookie) Mirela Service: (none) Author Type: Nurse Practitioner [...] KNEE SURGERY HX Right patella replacement - CT ANESTH,KNEE JOINT; NOS Left ALLERGIES Celebrex [Celecoxib]; [...] - Discussed expected course of illness Sandra Dietz APRN.CNP CNOV Observed: 04/13/2018 Status: COMPLETED Source: [place] 1:45 PM [facility] REPOSITORY Office Visit (WSTR) ATTILA DEL CID ([id number]) 1970 M [facility] Date Time Provider Department 04/13/18 1:45 PM SANDRA DIETZ (COOKIE) [facility] During your visit today, we recorded the following information about you: Temperature Pulse Respiration Blood pressure 97.7 degrees 115/minute 16/minute 100/80 Weight 109 kg Sandra Dietz APRN.CNP 04/13/2018 2:31 PM Signed Subjective HPI Attila Del Cid is a [...] KNEE SURGERY HX Right patella replacement - CT ANESTH,KNEE JOINT; NOS Left ALLERGIES Celebrex [Celecoxib]; [...] help open respiratory and sinus passages 2. [place] Nasal [place] may offer relief of nasal and head [...] 2 - Rash Comments: pt reports to [facility] PT 6--2016 PENICILLIN G 12/30/2013 2 - Rash RELPAX (ELETRIPTAN HBR) 07/17/2016 11 - Vomiting Comments: Nausea TOPAMAX (TOPIRAMATE) 07/17/2016 11 - Vomiting VICODIN (HYDROCODONE-ACETAMINOPHE*12/30/2013 11 - Vomiting WELLBUTRIN (BUPROPION HCL) 07/17/2016 11 - Vomiting Comments: Nausea Date Reviewed: 04/13/2018 Reviewed by: Sandra ([facility]) Mirela - Fully Assessed Reason for [...] Sig: TAMSULOSIN 0.4 MG CAPSULE every day [id number]* GABAPENTIN 300 MG CAPSULE APIXABAN 5 MG [...] help open respiratory and sinus passages 2. [place] Nasal [place] may offer relief of nasal and head [...] LEAD ELECTROCARDIOGRAM Observed: 04/10/2018 Status: F Source: [place] 9:50 AM [facility] REPOSITORY [facility] Cardiovascular Services [address] [place] [address] 12 Lead EKG 04/09/18 0229 MR#: [id number] Acct: [id number] Name: ATTILA DEL CID Rep #: [id number] : 1970 48 From: Jesse Stokes MD Attending Dr: Shelbie Knox Status: DIS FERCHO Ordering Dr: Edgar Sinclair MD Date: 04/09/18 Location: [facility] Sex: M C Admitted: 04/08/18 Test Reason [...] ELECTROCARDIOGRAM Observed: 04/10/2018 Status: F Source: [place] 9:07 AM [facility] RE[facility] Cardiovascular Services [address] [place] [address] 12 Lead EKG 04/08/184 MR#: [id number] Acct: [id number] Name: ATTILA DEL CID Rep #: [id number] : 1970 48 From: Jesse Stokes MD Attending Dr: Shelbie Knox Status: DIS FERCHO Ordering Dr: Rosalba Stein MD Date: 04/08/18 Location: [facility] Sex: M C Admitted: 04/08/18 Test Reason [...] Jesse Stokes Confirmed By:JESSE STOKES MD 04/10/18 09 Date Jesse Stokes MD CC: Rosalba Stein MD; Shelbie Knox; Nyla Bearden MD Signed DISCHARGE SUMMARY Observed: 04/09/2018 Status: F Source: [place] 4:04 PM [facility] Medical Records Department [address] [place] [address] Discharge Summary 04/09/18 1543 MR#: [id number] Acct: [id number] Name: ATTILA DEL CID Rep #: [id number] : 1970 48 From: Simon Knox DO PCP: Nyla Bearden MD Status: ADM FERCHO Y Location: [place] [address] Discharge Date and Diagnosis - Problem List [...] sleep apnea) (Chronic) Atherosclerotic heart disease of [place] coronary artery without angina pectoris (Chronic) History of left heart catheterization (Chronic) 11/09/2016 @ [facility], per Dr. Shama Harley: normal coronaries 04/07/2018 @ [facility] per Dr. Stokes: normal coronaries Nephrolithiasis [...] coronary arteries on cardiac cath 04/07/2018 at [facility], history of nephrolithiasis, hypertension, anxiety with panic attacks, paroxysmal atrial fibrillation, GERD, benign paroxysmal positional vertigo, hyperlipidemia and thoracic aortic aneurysm without rupture who presented to [facility] emergency room on 04/09/2018 complaining of chest [...] applicable Code Visit OBSV E AND M: 49306 Observation care discharge 04/09/18 1604 <Electronically signed by Simon Knox DO> Date Simon Knox DO Cosigner Signature (if applicable): Date CC: Shelbie Knox; Jesse Stokes MD; Nyla Bearden MD Signed DISCHARGE INSTRUCTION Observed: 04/09/2018 Status: F Source: [place] 3:42 PM [facility] REPOSITORY [facility] Medical Records Department [address] [place] [address] Instructions for Home/Discharge Instructions 04/09/18 1514 MR#: [id number] Acct: [id number] Name: ATTILA DEL CID Rep #: [id number] : 1970 48 From: Simon Knox DO PCP: Nyla Bearden MD Status: ADM FERCHO - Discharge Diagnoses Current Active Problems: Current Active and Chronic Problems (Last Reviewed 02/26/18 @ 11:43 by Tawanda Colon, MOBILE APPLICATION ENGINEER-C) Atypical chest pain (Acute) You will use [...] We have a behavioral health program at [facility] and they can help you to better [...] 5-6 weeks Proposed Discharge Date: 04/09/18 04/09/18 1542 <Electronically signed by Simon Knox DO> Date Simon Knox DO CC: Jesse Stokes MD; Nyla Bearden MD HISTORY AND PHYSICAL Observed: 04/09/2018 Status: F Source: [place] EXAM 3:45 AM [facility] REPOSITORY [facility] Medical Records Department [address] [place] [address] History and Physical 04/09/18 0333 MR#: [id number] Acct: [id number] Name: ASTERJOIEDOLORESATTILA Rep #: [id number] : 1970 48 From: Edgar Sinclair MD PCP: Nyla Bearden MD Status: ADM FERCHO Y Location: [place] [address] Problem List (1) Atypical chest pain Status: Acute (2) Obesity (BMI 30.0-34.9) Status: Chronic (3) Chest pain Status: Acute Qualifiers: (4) Ascending aorta dilatation Status: Chronic (5) SVT (supraventricular tachycardia) Status: Chronic (6) LORETTA (obstructive sleep apnea) Status: Chronic (7) Atherosclerotic heart disease of [place] coronary artery without angina pectoris Status: Chronic Qualifiers: (8) History of left heart catheterization Status: Chronic Comment: 11/09/2016 @ [facility], per Dr. Shama Harley: normal coronaries 04/07/2018 @ [facility] per Dr. Stokes: normal coronaries (9) History of cardiac radiofrequency ablation Status: Resolved Comment: 10/09/[address] [facility] [address] Andrew (10) Nephrolithiasis Status: Chronic (11) HTN (hypertension) [...] Problems (Last Reviewed 02/26/18 @ 11:43 by Tawanad Colon NP-Tate) Obesity (BMI 30.0-34.9) (Chronic) Ascending aorta dilatation (Chronic) SVT (supraventricular tachycardia) (Chronic) LORETTA (obstructive sleep apnea) (Chronic) Atherosclerotic heart disease of [place] coronary artery without angina pectoris (Chronic) History of left heart catheterization (Chronic) 11/09/2016 @ [facility], per Dr. Shama Harley: normal coronaries 04/07/2018 @ [facility] per Dr. Stokes: normal coronaries Nephrolithiasis [...] apnea) (Chronic) G47.33 Atherosclerotic heart disease of [place] coronary artery without angina pectoris (Chronic) I25.10 [...] left heart catheterization (Chronic) Z98.890 11/09/2016 @ [facility], per Dr. Shama Harley: normal coronaries 04/07/2018 @ [facility] per Dr. Stokes: normal coronaries History [...] twice daily This note was generated with Imbera Electronicsation software. Every effort was made to ensure accuracy, however computerized wash crew person mistakes may persist. Code Visit OBSV Misty CARPIO M: [id number] Initial observation care L3 04/09/18 0345 <Electronically signed by Edgar Sinclair MD> Date Edgar Sinclair MD Cosigner Signature: Date (if applicable) CC: Nyla Bearden MD; Edgar Sinclair MD Signed EMERGENCY DEPARTMENT Observed: 04/09/2018 Status: F Source: [place] SUMMARY 12:10 AM [facility] REPOSITORY [facility] Medical Records Department [address] [place] [address] Emergency Department Summary 04/08/18 2237 MR#: [id number] Acct: [id number] Name: ATTILA DEL CID Rep #: [id number] : 1970 48 From: Rosalba Stein MD [...] medication reaction This note was generated with [employer] software. It may contain incorrect words, spelling, [...] your Primary Care Provider. Call [facility] ([phone]) or report to the closest Emergency Room. Call 911 if necessary. 04/09/18 0010 <Electronically signed by Rosalba Stein MD> Date Rosalba Stein MD Cosigner Signature (If Indicated): Date CC: Nyla Bearden MD CHEST 1 VIEW Observed: 04/08/2018 Status: F Source: [place] (PORTABLE) 8:45 PM [facility] REPOSITORY [facility] Imaging Services [address] [place] [address] Chest 1 View (Portable) MR#: [id number] Acct: [id number] Name: ATTILA DEL CID Rep #: [id number] : 1970 M 48 From: Lazaro Hoang DO PCP: Nyla Bearden MD Status: REG ER Study: Chest 1 View (Portable) Date of Exam: 04/08/18 Exam# [id number] Ordering Dr: Rosalba Stein MD STUDY: X-RAY [...] CC: Rosalba Stein MD; Nyla Bearden MD Grill Chef: Signed CBC W/DIFF, AUTOMATED Collected: 04/08/2018 Status: F Source: [place] 7:55 PM [facility] REPOSITORY TYPE CODE TESTS RESULT OUT OF [...] Lymph 2.84 Performed By: #### L100.0100 #### [facility] Laboratory [address] [place], [place], [address] BASIC METABOLIC Collected: 04/08/2018 Status: F Source: [place] PROFILE (BMP) 7:55 PM [facility] REPOSITORY TYPE CODE TESTS RESULT OUT OF [...] GAP Performed By: #### L500.2500, L501.4010 #### [facility] Laboratory [address] [facility] [place], [place], [address] TROPONIN-I Collected: 04/08/2018 Status: F Source: [place] 7:55 PM [facility] REPOSITORY TYPE CODE TESTS RESULT OUT OF RANGE REFERENCE UNITS LAB L501.4010 <0.045 ng/mL Normal < 0.015 TROPONIN-I Result Comment: TROPONIN-I EXPECTED VALUES <0.045 Negative 0.045 - 0.590 Consistent with Cardiac Damage > OR = 0.600 Critical Value Not every elevated troponin is indicative of MN. These values should be used with clinical judgement in examining the patient's clinical picture for diagnosis. To establish a diagnosis of MN versus myocardial injury, there must be a demonstrated rise and/or fall in the troponin values, in addition to ischemic symptoms, EKG changes, new regional wall motion abnormality, and/or angiographical evidence. PLEASE NOTE: REFERENCE RANGES EDITED 18 Performed By: #### L500.2500, L501.4010 #### [facility] Laboratory [address] [facility] [place], [place], [address] 12 LEAD ELECTROCARDIOGRAM Observed: 04/07/2018 Status: F Source: [place] 8:58 AM [facility] REPOSITORY [facility] Cardiovascular Services [address] [place] [address] 12 Lead EKG 04/02/18 1231 MR#: [id number] Acct: [id number] Name: ATTILA DEL CID Rep #: [id number] : 1970 48 From: Asael Hale MD [...] ST segment abnormality Abnormal ECG Confirmed by ASAEL AHLE MD ([id number]), dictionary editor RICCO LEWIS ([id number]) on 04/04/2018 2:39:43 PM Referred By: CANDACE Confirmed By:ASAEL HALE MD 04/04/18 1439 Date Asael Hale MD CC: Jhon Mulligan MD; Nyla Bearden MD Signed 12 LEAD ELECTROCARDIOGRAM Observed: 04/07/2018 Status: F Source: [place] 8:58 AM [facility] REPOSITORY [facility] Cardiovascular Services [address] [place] [address] 12 Lead EKG 04/02/18 1213 MR#: [id number] Acct: [id number] Name: ATTILA DEL CID Rep #: [id number] : 1970 48 From: Asael Hale MD [...] Abnormal ECG Confirmed by ASAEL HALE MD ([id number]), dictionary editor RICCO LEWIS ([id number]) on 04/04/2018 2:42:44 PM Referred By: CANDACE Confirmed By:ASAEL HALE MD 04/04/18 1442 Date Asael Hale MD CC: Jhon Mulligan MD; Nyla Beardne MD Signed 12 LEAD ELECTROCARDIOGRAM Observed: 04/07/2018 Status: F Source: [place] 8:51 AM [facility] RE[facility]IT[facility] Cardiovascular Services [address] [place] [address] 12 Lead EKG 03/20/18 0445 MR#: [id number] Acct: [id number] Name: ATTILA DEL CID Rep #: [id number] : 1970 48 From: Attila Oliva MD Attending Dr: Bradly [place] DO Status: DIS FERCHO Ordering Dr: Kandi Wylie Date: 03/20/18 Location: [facility] Sex: M C Admitted: 03/20/18 Test Reason [...] PM Referred By: MARIBEL Confirmed By:ATTILA OLIVA 04/02/18 194 Date Attila Oliva MD CC: Kandi Wylie; Nyla Bearden MD; Bradly [place] DO Signed 12 LEAD ELECTROCARDIOGRAM Observed: 04/07/2018 Status: F Source: [place] 8:41 AM [facility] REPOSITORY [facility] Cardiovascular Services [address] [place] [address] 12 Lead EKG 04/01/18 1621 MR#: [id number] Acct: [id number] Name: ATTILA DEL CID Rep #: [id number] : 1970 48 From: Jesse Stokes MD [...] By: ZAKI Confirmed By:JESSE STOKES MD 04/02/18 1659 Date Jesse Stokes MD CC: Attila uHtchinson DO; Nyla Bearden MD Signed 12 LEAD ELECTROCARDIOGRAM Observed: 04/07/2018 Status: F Source: [place] 8:40 AM [facility] REPOSITORY [facility] Cardiovascular Services [address] [place] [address] 12 Lead EKG 03/20/18 0235 MR#: [id number] Acct: [id number] Name: ATTILA DEL CID Rep #: [id number] : 1970 48 From: Attila Oliva MD Attending Dr: Bradly Davis DO Status: DIS FERCHO Ordering Dr: Maryjo Woods Date: 03/20/18 Location: U Sex: M C Admitted: 03/20/18 Test Reason [...] Signed CONSULTATION Observed: 04/07/2018 Status: F Source: [place] 7:47 AM [facility] REPOSITORY [facility] Medical Records Department [address] [place] [address] Consultation 04/07/18 0742 MR#: [id number] Acct: [id number] Name: ATTILA DEL CID Rep #: [id number] : 1970 48 From: Jesse Stokes MD PCP: Nyla Bearden MD Status: PRE SDC Y Location: [facility] Reason for Consult Date of Consultation: 04/07/18 [...] response rate and was sent to the [facility] where he underwent a repeat ablation. [...] (Last Reviewed 02/26/18 @ 11:43 by Tawanda Colon, MOBILE APPLICATION ENGINEER-C) Obesity (BMI 30.0-34.9) (Chronic) Ascending aorta dilatation (Chronic) SVT (supraventricular tachycardia) (Chronic) LORETTA (obstructive sleep apnea) (Chronic) Atherosclerotic heart disease of [place] coronary artery without angina pectoris (Chronic) History of left heart catheterization (Chronic) 11/09/2016 @ [facility], per Dr. Shama Harley: normal coronaries Nephrolithiasis [...] EMERGENCY DEPARTMENT Observed: 04/04/2018 Status: F Source: [place] SUMMARY 4:09 PM [facility] REPOSITORY [facility] Medical Records Department [address] [place] [address] Emergency Department Summary 04/01/18 1909 MR#: [id number] Acct: [id number] Name: ATTILA DEL CID Rep #: [id number] : 1970 48 From: Attila Hutchinson DO [...] be discharged home to follow-up with his car trimmer return if worsening or concerns Impression: 1. Chest pain 2. Thoracic aortic aneurysm This note was generated with Preggers dictation software. It may contain incorrect words, [...] your Primary Care Provider. Call [facility] ([phone]) or report to the closest Emergency Room. Call 911 if necessary. 04/04/18 5546 <Electronically signed by Attila Hutchinson DO> Date Attila Hutchinson DO Cosigner Signature (If Indicated): Date CC: Nyla Bearden MD CNPN Observed: 04/04/2018 Status: COMPLETED Source: [place] 12:00 AM CLINIC OTHER CAMPUS REPOSITORY Telephone (AKURFL) ATTILA DEL CID ([id number]) 1970 M T Date Time Provider Department 04/04/18 CAMRON PEREZURFLynette During your visit today, we recorded the following information about you: Camron Perez MD 04/04/2018 8:19 AM Signed recent appointment with Li. Imaging shows right renal stones. does he want to consider shockwave lithotripsy.If so will need KUB. I will enter order for KUB Linda Fonseca Cma 04/04/2018 12:14 PM Signed Please see message below per provider Linda Fonseca Automotive Welder Allergies As of Date: 04/04/2018 Noted Allergy Reaction CELEBREX (CELECOXIB) 07/17/2016 11 - Vomiting Comments: Nausea CLONIDINE 07/17/2016 2 - Rash FENTANYL 07/17/2016 8 - GI Upset LEVOFLOXACIN 04/13/2017 2 - Rash Comments: pt reports to [facility] PT 6-24-2017 PENICILLIN G 12/30/2013 2 - [...] Sig: TAMSULOSIN 0.4 MG CAPSULE every day [id number]-IWOP* GABAPENTIN 300 MG CAPSULE OXYCODONE-ACETAMINOPHEN 5 MG-* [...] EMERGENCY DEPARTMENT Observed: 04/02/2018 Status: F Source: [place] SUMMARY 3:01 PM [facility] REPOSITORY [facility] Medical Records Department [address] [place] [address] Emergency Department Summary 04/02/18 1449 MR#: [id number] Acct: [id number] Name: ATTILA DEL CID Rep #: [id number] : 1970 48 From: Vazquez Mulligan MD [...] scheduled for a heart cath with Dr. Stokes next Saturday. He is still on his [...] chemical cardioversion This note was generated with Preggers dictation software. It may contain incorrect words, [...] problems, contact your Primary Care Provider. Call [facility] ([phone]) or report to the closest Emergency Room. Call 911 if necessary. 04/02/18 1502 <Electronically signed by Vazquez Mulligan MD> Date Vazquez Mulligan MD Cosigner Signature (If Indicated): Date CC: Nyla Bearden MD CHEST 1 VIEW Observed: 04/02/2018 Status: F Source: [place] (PORTABLE) 12:37 PM [facility] Imaging Services [address] [place] [address] Chest 1 View (Portable) MR#: [id number] Acct: [id number] Name: ATTILA DEL CID Rep #: [id number] : 1970 M 48 From: Sasha Valverde MD PCP: Nyla Bearden MD Status: REG ER Study: Chest 1 View (Portable) Date of Exam: 04/02/18 Exam# [id number] Ordering Dr: Vazquez Mulligan MD STUDY: X-RAY [...] EDT Tel , Service support , CC: Jhon Mulligan MD; Nyla Bearden MD Grill Chef: Signed CBC W/DIFF, AUTOMATED Collected: 04/02/2018 Status: F Source: [place] 12:22 PM [facility] REPOSITORY TYPE CODE TESTS RESULT OUT OF [...] Lymph 3.32 Performed By: #### L100.0100 #### [facility] [address] [place], [place], [address] BASIC METABOLIC Collected: 04/02/2018 Status: F Source: [place] PROFILE ([facility]) 12:22 PM [facility] REPOSITORY TYPE CODE TESTS RESULT OUT OF [...] 5 Performed By: #### L500.2500, L501.4010 #### [facility] [address] [facility] [place], [address] TROPONIN-I Collected: 04/02/2018 Status: F Source: [place] 12:22 PM [facility] REPOSITORY TYPE CODE TESTS RESULT OUT OF RANGE REFERENCE UNITS LAB L501.4010 <0.045 ng/mL Normal < 0.015 TROPONIN-I Result Comment: TROPONIN-I EXPECTED VALUES <0.045 Negative 0.045 - 0.590 Consistent with Cardiac Damage > OR = 0.600 Critical Value Not every elevated troponin is indicative of MN. These values should be used with clinical judgement in examining the patient's clinical picture for diagnosis. To establish a diagnosis of MN versus myocardial injury, there must be a demonstrated rise and/or fall in the troponin values, in addition to ischemic symptoms, EKG changes, new regional wall motion abnormality, and/or angiographical evidence. PLEASE NOTE: REFERENCE RANGES EDITED 18 Performed By: #### L500.2500, L501.4010 #### [facility] [address] [place], [place], [address] CBC W/DIFF, AUTOMATED Collected: 04/01/2018 Status: F Source: [place] 5:15 PM [facility] REPOSITORY TYPE CODE TESTS RESULT OUT OF [...] Lymph 2.53 Performed By: #### L100.0100 #### [facility] [address] [place], [address] BASIC METABOLIC Collected: 04/01/2018 Status: F Source: [place] PROFILE (BMP) 5:15 PM [facility] REPOSITORY TYPE CODE TESTS RESULT OUT OF [...] 5 Performed By: #### L500.2500, L501.4010 #### [facility] [address] [place], [address] TROPONIN-I Collected: 04/01/2018 Status: F Source: [place] 5:15 PM [facility] REPOSITORY TYPE CODE TESTS RESULT OUT OF RANGE REFERENCE UNITS LAB L501.4010 <0.045 ng/mL Normal < 0.015 TROPONIN-I Result Comment: TROPONIN-I EXPECTED VALUES <0.045 Negative 0.045 - 0.590 Consistent with Cardiac Damage > OR = 0.600 Critical Value Not every elevated troponin is indicative of MN. These values should be used with clinical judgement in examining the patient's clinical picture for diagnosis. To establish a diagnosis of MN versus myocardial injury, there must be a demonstrated rise and/or fall in the troponin values, in addition to ischemic symptoms, EKG changes, new regional wall motion abnormality, and/or angiographical evidence. PLEASE NOTE: REFERENCE RANGES EDITED 18 Performed By: #### L500.2500, L501.4010 #### [facility] [address] [place], [address] CTA CHEST W/WO Observed: 04/01/2018 Status: F Source: [place] CONTRAST 4:58 PM [facility] REPOSITORY [facility] Imaging Services [address] [place] [address] CTA Chest W/WO Contrast MR#: [id number] Acct: [id number] Name: ATTILA DEL CID Rep #: [id number] : 1970 M 48 From: Carlos Atkins DO PCP: Nyla Bearden MD Status: REG ER Study: CTA Chest W/WO Contrast Date of Exam: 04/01/18 Exam# [id number] Ordering Dr: Attila Hutchinson DO STUDY: CTA [...] Carlos Atkins DO at 18:18 EDT Tel [phone], Service support , CC: Attila Hutchinson DO; Nyla Bearden MD Grill Chef: Signed URINALYSIS ROUTINE Collected: 03/25/2018 Status: F Source: [facility] 5:00 PM HEALTH SYSTEM REPOSITORY TYPE CODE [...] Bilirubin Urine NEGATIVE LAB SPG(LOINC) 1.005-1.030 Specific [place], Ur 1.018 LAB PHUR(LOINC 5.0-8.0 ) pH,Urine [...] Cast 0.0 Performed By: #### URIN2 #### [facility] [address] [place], [place] [address] Observed: 03/25/2018 Status: F Source: [facility] URINE 3:00 PM HEALTH SYSTEM REPOSITORY Test performed at [facility] No growth Performed By: #### C_URI #### [place] [id number] PROGRESS Observed: 03/25/2018 Status: COMPLETED Source: [place] 11:38 AM CLINIC OTHER CAMPUS REPOSITORY HNO ID: [id number] Author: Li Winston (Pa) Service: (none) Author Type: Physician Paving And Surfacing 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 Pt with h/o kidney stones. Pt went to [facility] for right flank pain, imaging done, not [...] (no units) Date Value 03/25/2018 neg Specific [place], Ur (no units) Date Value 03/25/2018 1.020 [...] - URINALYSIS WITH MICROSCOPIC Get imaging from [facility] 3. Acute right flank pain - ICD9: 789.09, 338.19, ICD10: R10.9 - Continue tamsulosin Doxycycline Follow up with dr. Perez after reviewing imaging. Li Winston PA-C CNOV Observed: 03/25/2018 Status: COMPLETED Source: [place] 11:30 AM CLINIC OTHER CAMPUS REPOSITORY Office Visit (YUNIOR) ATTILA DEL CID ([id number]) 1970 M [facility] Date Time Provider Department 03/25/18 11:30 [...] with h/o kidney stones. Pt went to [facility] for right flank pain, imaging done, not [...] (no units) Date Value 03/25/2018 neg Specific [place], Ur (no units) Date Value 03/25/2018 1.020 [...] - URINALYSIS WITH MICROSCOPIC Get imaging from [facility] 3. Acute right flank pain - ICD9: 789.09, 338.19, ICD10: R10.9 - Continue tamsulosin Doxycycline Follow up with dr. Perez after reviewing imaging. Li Winston PA-C Referring Provider: VANESSA GONZALEZ [[id number]] Allergies As of Date: 03/25/2018 Noted Allergy Reaction CELEBREX (CELECOXIB) 07/17/2016 11 - Vomiting Comments: Nausea CLONIDINE 07/17/2016 2 - Rash FENTANYL 07/17/2016 8 - GI Upset LEVOFLOXACIN 04/13/2017 2 - Rash Comments: pt reports to [facility] PT 6--2017 PENICILLIN G 12/30/2013 2 - [...] right flank pain [R10.9] Order(s):UA DIP B/O [[id number]] Order #: [id number] URINE CULTURE [SQURCUL] Order #: [id number] URINALYSIS WITH MICROSCOPIC [SQUAWMIC] Order #: [id number] FUTURE doxycycline monohydrate (MONODOX) 100 mg capsuleTake 1 capsule by mouth twice daily for 7 days.Disp: 14 capsuleRfl: 0 Prescriptions as of 03/25/2018 Sig: TAMSULOSIN 0.4 MG CAPSULE every day DOXYCYCLINE MONOHYDRATE 100 M* Take 1 capsule by mouth twice* [id number]-[id number]* GABAPENTIN 300 MG CAPSULE OXYCODONE-ACETAMINOPHEN 5 MG-* [...] PA-C 03/25/2018 11:46 AM >> LI WINSTON misty Mar 25, 2018 11:46 AM PROMETHAZINE 25 [...] EMERGENCY DEPARTMENT Observed: 03/22/2018 Status: F Source: [place] SUMMARY 3:00 AM [facility] REPOSITORY [facility] Medical Records Department [address] [place] [address] Emergency Department Summary 03/21/18 2236 MR#: [id number] Acct: [id number] Name: ATTILA DEL CID Rep #: [id number] : 1970 48 From: Bolivar Nice PCP: [...] unknown etiology This note was generated with Preggers dictation software. It may contain incorrect words, [...] your Primary Care Provider. Call [facility] ([phone]) or report to the closest Emergency Room. Call 911 if necessary. 03/22/18 0300 <Electronically signed by Bolivar Nice> Date Bolivar Nice Cosigner Signature (If Indicated): Date CC: Nyla Bearden MD ABDOMEN/PELVIS WITHOUT Observed: 03/21/2018 Status: F Source: [place] CONT 11:40 PM [facility] REPOSITORY [facility] Imaging Services [address] [place] [address] Abdomen/Pelvis without Cont MR#: [id number] Acct: [id number] Name: ATTILA DEL CID Rep #: [id number] : 1970 [facility] From: Diana Baptiste MD PCP: Nyla Bearden MD Status: REG ER Study: Abdomen/Pelvis without Cont Date of Exam: 03/21/18 Exam# [id number] Ordering Dr: Bolivar Fonseca DO STUDY: CT [...] Baptiste MD at 1:15 EDT Tel Direct: [phone], Service support , CC: Nyla Bearden MD; Bolivar Fonseca Grill Chef: Signed URINALYSIS, COMPLETE Collected: 03/21/2018 Status: F Source: [place] 11:00 PM [facility] REPOSITORY Order Comment: How was Urine Obtained? [...] URINE SEEN Performed By: #### L400.0001 #### [facility] [address] [place], [address] CBC W/DIFF, AUTOMATED Collected: 03/21/2018 Status: F Source: [place] 10:50 PM [facility] REPOSITORY TYPE CODE TESTS RESULT OUT OF [...] Lymph 3.88 Performed By: #### L100.0100 #### [facility] [address] [place], [address] BASIC METABOLIC Collected: 03/21/2018 Status: F Source: [place] PROFILE (BMP) 10:50 PM [facility] REPOSITORY TYPE CODE TESTS RESULT OUT OF [...] Performed By: #### L500.2500, L500.3400, L501.2450 #### [facility] [address] [place], [address] LIVER PROFILE Collected: 03/21/2018 Status: F Source: [place] 10:50 PM [facility] REPOSITORY TYPE CODE TESTS RESULT OUT OF [...] Performed By: #### L500.2500, L500.3400, L501.2450 #### [facility] [address] [place], [address] LIPASE Collected: 03/21/2018 Status: F Source: [place] 10:50 PM [facility] REPOSITORY TYPE CODE TESTS RESULT OUT OF RANGE REFERENCE UNITS LAB L501.2450 73-393 U/L Normal LIPASE 196 Performed By: #### L500.2500, L500.3400, L501.2450 #### [facility] [address] [place], [address] ECHO, COMPLETE W/ Observed: 03/20/2018 Status: F Source: [place] CONTRAST 4:39 PM [facility] REPOSITORY [facility] Cardiovascular Services [address] [place] [address] Echo Complete W/ Contrast 03/20/18 1426 MR#: [id number] Acct: [id number] Name: ATTILA DEL CID Rep #: [id number] : 1970 48 From: Attila Oliva MD Attending Dr: Bradly Davis DO Status: DIS FERCHO Ordering Dr: Kandi Wylie Date: 03/20/18 Location: [facility] Sex: M C Admitted: 03/20/18 Reason For [...] Batista Performed By: Jennifer Carter RDCS 03/20/18 9589 Date Attila Oliva MD CC: Kandi Wylie; Nyla Bearden MD; Bradly Davis DO Date Dictated: 03/20/18 1426 Date Transcribed: 03/20/18 1639 Grill Chef: Signed DISCHARGE SUMMARY Observed: 03/20/2018 Status: F Source: [place] 2:25 PM [facility] REPOSITORY [facility] Medical Records Department [address] [place] [address] Discharge Summary 03/20/18 1345 MR#: [id number] Acct: [id number] Name: ATTILA DEL CID Rep #: [id number] : 1970 48 From: Thiago AGUILERA PCP: Nyla Bearden MD Status: ADM FERCHO Y Location: [place] [address] <Thiago Hernández - Last Filed: 03/20/18 13:45> [...] sleep apnea) (Chronic) Atherosclerotic heart disease of [place] coronary artery without angina pectoris (Chronic) History of left heart catheterization (Chronic) 11/09/2016 @ [facility], per Dr. Shama Harley: normal coronaries Nephrolithiasis [...] follow-up with his PCP and with his car trimmer Dr. Stokes. This patient was seen by [...] sleep apnea) (Chronic) Atherosclerotic heart disease of [place] coronary artery without angina pectoris (Chronic) History of left heart catheterization (Chronic) 11/09/2016 @ [facility], per Dr. Shama Harley: normal coronaries Nephrolithiasis [...] applicable Code Visit OBSV E AND M: 47707 Observation care discharge 03/20/18 0532 <Electronically signed by Thiago AGUILERA> Date Thiago AGUILERA 03/20/18 0595<Electronically signed by Bradly Davis DO> Cosigner Signature (if applicable): Date Bradly Davis DO CC: ALE Hernández; Nyla Bearden MD; Bradly Davis DO Signed DISCHARGE INSTRUCTION Observed: 03/20/2018 Status: F Source: [place] 1:45 PM [facility] REPOSITORY [facility] Medical Records Department [address] [place] [address] Instructions for Home/Discharge Instructions 03/20/18 1343 MR#: [id number] Acct: [id number] Name: ATTILA DEL CID Rep #: [id number] : 1970 48 From: Thiago AGUILERA PCP: Nyla Bearden MD Status: ADM FERCHO - Discharge Diagnoses Current Active Problems: Current Active and Chronic Problems (Last Reviewed 02/26/18 @ 11:43 by Tawanda Colon MOBILE APPLICATION ENGINEER-C) Obesity (BMI 30.0-34.9) (Chronic) Chest pain (Acute) [...] STRESS REPORT Observed: 03/20/2018 Status: F Source: [place] 1:16 PM [facility] REPOSITORY [facility] Cardiovascular Services [facility] [place] [address] MR#: [id number] Acct: [id number] Name: ASTERJOIEDOLORESATTILA Lois Rep #: [id number] : 1970 48 From: Asael Hale MD Primary Care: Nyla Bearden MD Status: ADM FERCHO Ordering Dr: Sex: M C Stress Test Report Date: 03/20/2018 Procedure: Pharmacologic [...] 81 %. This note was generated with Imbera Electronicsation software. It may contain incorrect words, spelling, and punctuation that were not noted in checking the note before signing. 03/20/18 1316 <Electronically signed by Asael Hale MD> Date Asael Hale MD CC: Nyla Bearden MD; Bradly Davis DO Date Dictated: 03/20/181310 Date Transcribed: 03/20/181310 Grill Chef: PM Signed TROPONIN-I Collected: 03/20/2018 Status: F Source: [place] 8:30 AM [facility] REPOSITORY Order Comment: 'TROP' Serial specimen #1, #2 or #3: 3 TYPE CODE TESTS RESULT OUT OF RANGE REFERENCE UNITS LAB L501.4010 <0.045 ng/mL Normal < 0.015 TROPONIN-I Result Comment: TROPONIN-I EXPECTED VALUES <0.045 Negative 0.045 - 0.590 Consistent with Cardiac Damage > OR = 0.600 Critical Value Not every elevated troponin is indicative of MN. These values should be used with clinical judgement in examining the patient's clinical picture for diagnosis. To establish a diagnosis of MN versus myocardial injury, there must be a demonstrated rise and/or fall in the troponin values, in addition to ischemic symptoms, EKG changes, new regional wall motion abnormality, and/or angiographical evidence. PLEASE NOTE: REFERENCE RANGES EDITED 18 Performed By: #### L501.4010 #### [facility] [address] [facility] [place], [address] EMERGENCY DEPARTMENT Observed: 03/20/2018 Status: F Source: [place] SUMMARY 7:13 AM [facility] REPOSITORY [facility] Medical Records Department [address] [place] [address] Emergency Department Summary 03/20/18 0326 MR#: [id number] Acct: [id number] Name: ATTILA DEL CID Rep #: [id number] : 1970 48 From: Maryjo Woods PCP: [...] showed minimal disease. He has had an MN. No stents. He has a history of [...] pain [] This note was generated with Preggers dictation software. It may contain incorrect words, spelling, and punctuation that were not noted in review of the chart prior to signing ED Disposition - Plan for ED Patient: Disposition: Acute Care Hospital [facility] Chief Complaint: Chest Pain What to do if you have Problems For any increased pain, shortness of breath, bleeding, nausea or vomiting, chest pain, or any unexpected problems, contact your Primary Care Provider. Call [facility] ([phone]) or report to the closest Emergency Room. Call 911 if necessary. 03/20/18 6444 <Electronically signed by Maryjo Woods > Date Maryjo Romeroigner Signature (If Indicated): Date CC: Nyla Bearden MD PROTHROMBIN TIME W/INR Collected: 03/20/2018 Status: F Source: [place] 6:00 AM [facility] REPOSITORY TYPE CODE TESTS RESULT OUT OF RANGE REFERENCE UNITS LAB L300.4150 11.7-14.9 SECONDS Normal PROTIME 12.2 LAB L300.4200 Normal INR 0.9 Performed By: #### L300.3900, L300.4310 #### [facility] [address] [facility] [place], [place], [address] PARTIAL THROMBOPLAST Collected: 03/20/2018 Status: F Source: [place] TIME 6:00 AM [facility] REPOSITORY TYPE CODE TESTS RESULT OUT OF RANGE REFERENCE UNITS LAB L300.4310 24.1-36.2 Seconds Normal PTT 26.6 Performed By: #### L300.3900, L300.4310 #### [facility] [address] [facility] [place], [place], [address] CBC-COMPLETE BLOOD CNT Collected: 03/20/2018 Status: F Source: [place] NO DIFF 4:52 AM [facility] REPOSITORY TYPE CODE TESTS RESULT OUT OF [...] MPV 8.7 Performed By: #### L100.0500 #### [facility] [address] [place], [address] TROPONIN-I Collected: 03/20/2018 Status: F Source: [place] 4:52 AM [facility] REPOSITORY Order Comment: 'TROP' Serial specimen #1, #2 or #3: 2 TYPE CODE TESTS RESULT OUT OF RANGE REFERENCE UNITS LAB L501.4010 <0.045 ng/mL Normal < 0.015 TROPONIN-I Result Comment: TROPONIN-I EXPECTED VALUES <0.045 Negative 0.045 - 0.590 Consistent with Cardiac Damage > OR = 0.600 Critical Value Not every elevated troponin is indicative of MN. These values should be used with clinical judgement in examining the patient's clinical picture for diagnosis. To establish a diagnosis of MN versus myocardial injury, there must be a demonstrated rise and/or fall in the troponin values, in addition to ischemic symptoms, EKG changes, new regional wall motion abnormality, and/or angiographical evidence. PLEASE NOTE: REFERENCE RANGES EDITED 18 Performed By: #### L501.4010 #### [facility] [address] [facility] [place], [address] BASIC METABOLIC Collected: 03/20/2018 Status: F Source: [place] PROFILE (BMP) 4:52 AM [facility] REPOSITORY TYPE CODE TESTS RESULT OUT OF [...] #### L500.2500, L500.4100, L501.5200, L501.9520, L506.0400 #### [facility] [address] [facility]. [place], [place], [id number] LIPID PROFILE Collected: 03/20/2018 Status: F Source: [place] 4:52 AM [facility] REPOSITORY TYPE CODE TESTS RESULT OUT OF [...] #### L500.2500, L500.4100, L501.5200, L501.9520, L506.0400 #### [facility] [address] [place], [place], [id number] [phone] Collected: 03/20/2018 Status: F Source: [place] 4:52 AM [facility] REPOSITORY TYPE CODE TESTS RESULT OUT OF RANGE REFERENCE UNITS LAB L501.5200 1.6-2.6 mg/dL Normal MG 2.0 Performed By: #### L500.2500, L500.4100, L501.5200, L501.9520, L506.0400 #### [facility] [address] [facility] [place], [address] THYROID STIM HORMONE Collected: 03/20/2018 Status: F Source: [place] (TSH) 4:52 AM [facility] REPOSITORY TYPE CODE TESTS RESULT OUT OF RANGE REFERENCE UNITS LAB L501.9520 0.358-3.74 uIU/mL High TSH 3.92 Performed By: #### L500.2500, L500.4100, L501.5200, L501.9520, L506.0400 #### [facility] [address] [facility] [place], [address] T4 FREE DIRECT Collected: 03/20/2018 Status: F Source: [place] 4:52 AM [facility] REPOSITORY TYPE CODE TESTS RESULT OUT OF RANGE REFERENCE UNITS LAB L506.0400 0.76-1.46 ng/dL Normal T4 FREE 1.17 DIRECT Performed By: #### L500.2500, L500.4100, L501.5200, L501.9520, L506.0400 #### [facility] [address] [facility] [place], [address] HISTORY AND PHYSICAL Observed: 03/20/2018 Status: F Source: [place] EXAM 4:04 AM [facility] REPOSITORY [facility] Medical Records Department [address] [place] [address] [place] [address] History and Physical 03/20/18 0341 MR#: [id number] Acct: [id number] Name: ATTILA DEL CID Rep #: [id number] : 1970 48 From: Kandi Wylie PCP: Nyla Bearden MD Status: ADM FERCHO Y Location: PCU [id number] Problem List (1) Chest pain Status: Acute Qualifiers: Chest pain type: unspecified Qualified Code(s): R07.9 - Chest pain, unspecified (2) Obesity (BMI 30.0-34.9) Status: Chronic (3) Ascending aorta dilatation Status: Chronic (4) SVT (supraventricular tachycardia) Status: Chronic (5) LORETTA (obstructive sleep apnea) Status: Chronic (6) Atherosclerotic heart disease of [place] coronary artery without angina pectoris Status: Chronic Qualifiers: [place] vs. transplanted heart: unspecified whether [place] or transplanted heart Qualified Code(s): I25.10 - Atherosclerotic heart disease of [place] coronary artery without angina pectoris (7) HTN [...] x 2 attempts who presents to the [facility] ED on 03/20/18 with history of [...] sleep apnea) (Chronic) Atherosclerotic heart disease of [place] coronary artery without angina pectoris (Chronic) History of left heart catheterization (Chronic) 11/09/2016 @ [facility], per Dr. Shama Harley: normal coronaries Nephrolithiasis [...] apnea) (Acute) G47.33 Atherosclerotic heart disease of [place] coronary artery without angina pectoris (Chronic) I25.10 [...] left heart catheterization (Chronic) Z98.890 11/09/2016 @ [facility], per Dr. Shama Harley: normal coronaries History [...] 02/26/18 @ 11:43 by Tawanda Colon NP-Tate) Chest pain (Acute) History of cardiac radiofrequency ablation (Resolved) Double vision (Resolved) The patient is a 48 y/o M w/ PMHx: Obesity, Anxiety, HTN, HLD, CAD, LORETTA, Hx AAA, BPPV, GERD, PAF s/p serial prior cardioversions and ablation x 2 attempts who presents to the [facility] ED on 03/20/18 with history of [...] Eliquis. Code Visit OBSV E AND M: 24406 Initial observation care L3 03/20/18 0404 <Electronically signed by Kandi Wylie > Date Kandi Wylie Cosigner Signature: Date (if applicable) CC: Kandi Wylie; Nyla Bearden MD Signed CHEST 1 VIEW Observed: 03/20/2018 Status: F Source: [place] (PORTABLE) 2:55 AM [facility] REPOSITORY [facility] Imaging Services [address] [place] [address] Chest 1 View (Portable) MR#: [id number] Acct: [id number] Name: PEGDOLORESKOFIATTILA Lois Rep #: [id number] : 1970 M 48 From: Adrien Franks MD PCP: Nyla Bearden MD Status: REG ER Study: Chest 1 View (Portable) Date of Exam: 03/20/18 Exam# [id number] Ordering Dr: Maryjo Woods STUDY: X-RAY CHEST [...] , CC: Maryjo Woods; Nyla Bearden MD Grill Chef: Signed CBC W/DIFF, AUTOMATED Collected: 03/20/2018 Status: F Source: [place] 2:30 AM [facility] REPOSITORY TYPE CODE TESTS RESULT OUT OF [...] Lymph 2.69 Performed By: #### L100.0100 #### [facility] [address] [place], [address] BASIC METABOLIC Collected: 03/20/2018 Status: F Source: [place] PROFILE ([facility]) 2:30 AM [facility] REPOSITORY TYPE CODE TESTS RESULT OUT OF [...] 9 Performed By: #### L500.2500, L501.4010 #### [facility] [address] [place], [address] TROPONIN-I Collected: 03/20/2018 Status: F Source: [place] 2:30 AM [facility] REPOSITORY TYPE CODE TESTS RESULT OUT OF RANGE REFERENCE UNITS LAB L501.4010 <0.045 ng/mL Normal < 0.015 TROPONIN-I Result Comment: TROPONIN-I EXPECTED VALUES <0.045 Negative 0.045 - 0.590 Consistent with Cardiac Damage > OR = 0.600 Critical Value Not every elevated troponin is indicative of MN. These values should be used with clinical judgement in examining the patient's clinical picture for diagnosis. To establish a diagnosis of MN versus myocardial injury, there must be a demonstrated rise and/or fall in the troponin values, in addition to ischemic symptoms, EKG changes, new regional wall motion abnormality, and/or angiographical evidence. PLEASE NOTE: REFERENCE RANGES EDITED 18 Performed By: #### L500.2500, L501.4010 #### [facility] [address] [facility] [place], [address] ORTHOPEDIC VISIT Observed: 03/11/2018 Status: F Source: [place] REPORT 3:53 PM [facility] REPOSITORY [facility] [address] [place] [address] 5 [place] [address] OFFICE VISIT Date of Service: 02/13/18 MR#: [id number] Acct: [id number] Name: ATTILA DEL CID Rep #: [id number] : 1970 Provider: Claribel Batista DO Age/Sex: 48/M Location: [facility] Status: Signed Intake Intake Visit Reasons: RIGHT [...] sleep apnea) (Acute) Atherosclerotic heart disease of [place] coronary artery without angina pectoris (Chronic) Nephrolithiasis [...] Route Admin Location Lot Number Expiration DateNDC Ham Doctor 2 mg Intra-Articularright sub [id number] 02/18/19 5671-1794-66 BRISTOL HAMILTON [facility] SQUIBB Assessment AND Plan Orders Orders: Medications Discontinued: Kenalog (triamcinolone acetonide) 2 mg (0.2 mL) Intra-Articular ONCE NM75.42 Jagdish Paul Discontinued Reason: Office MedicaS tion has been Documented as given Coding Level of Care Code Off vis,est,level 4 Additional Codes electrical line splicer.sub (54591) 03/11/18 3776 <Electronically signed by Claribel Batista DO> Date Claribel Batista DO Cosigner Signature: Date (if applicable) CC: EMERGENCY DEPARTMENT Observed: 03/07/2018 Status: F Source: [place] SUMMARY 11:36 PM [facility] REPOSITORY [facility] Medical Records Department [address] [place] [address] Emergency Department Summary 03/07/18 2331 MR#: [id number] Acct: [id number] Name: ATTILA DEL CID Rep #: [id number] : 1970 48 From: Attila Johnson MD [...] flank pain This note was generated with Preggers dictation software. It may contain incorrect words, [...] your Primary Care Provider. Call [facility] ([phone]) or report to the closest Emergency Room. Call 911 if necessary. 03/07/182335 <Electronically signed by Attila Johnson MD> Date Attila Johnson MD Cosigner Signature (If Indicated): Date CC: Nyla Bearden MD DISCHARGE INSTRUCTION Observed: 03/07/2018 Status: F Source: [place] 11:36 PM [facility] REPOSITORY [facility] Medical Records Department [address] [place] [address] Discharge Instruction 03/07/182332 MR#: [id number] Acct: [id number] Name: ATTILA DEL CID Rep #: [id number] : 1970 48 From: Attila Johnson MD [...] your Primary Care Provider. Call [facility] ([phone]) or report to the closest Emergency Room. Call 911 if necessary. 03/07/182335 <Electronically signed by Attila Johnson MD> Date Attila Johnson MD Cosigndolores Signature (If Indicated): Date CC: Nyla Bearden MD CBC W/DIFF, AUTOMATED Collected: 03/07/2018 Status: F Source: [place] 10:10 PM [facility] REPOSITORY TYPE CODE TESTS RESULT OUT OF [...] Lymph 2.08 Performed By: #### L100.0100 #### [facility] [address] [place], [place], [address] COMPREHENSIVE METABOLIC Collected: 03/07/2018 Status: F Source: [place] [facility] 10:10 PM [facility] REPOSITORY TYPE CODE TESTS RESULT OUT OF [...] 6 Performed By: #### L500.4050, L501.2450 #### [facility] [address] [place], [address] LIPASE Collected: 03/07/2018 Status: F Source: [place] 10:10 PM [facility] REPOSITORY TYPE CODE TESTS RESULT OUT OF RANGE REFERENCE UNITS LAB L501.2450 73-393 U/L Normal LIPASE 207 Performed By: #### L500.4050, L501.2450 #### [facility] [address] [place], [address] KIDNEY AND BLADDER Observed: 03/07/2018 Status: F Source: [place] 10:01 PM [facility] REPOSITORY [facility] Imaging Services [address] [facility] [place] [address] Kidney and Bladder MR#: [id number] Acct: [id number] Name: ATTILA DEL CID Rep #: [id number] : 1970 M 48 From: Liz Hardy MD PCP: Nyla Bearden MD Status: REG ER Study: Kidney and Bladder Date of Exam: 03/07/18 Exam# [id number] Ordering Dr: Attila Johnson MD STUDY: RENAL [...] CC: Attila Johnson MD; Nyla Bearden MD Grill Chef: Signed URINALYSIS, COMPLETE Collected: 03/07/2018 Status: F Source: [place] 9:35 PM [facility] REPOSITORY Order Comment: How was Urine Obtained? [...] CRYSTAL RARE Performed By: #### L400.0001 #### [facility] [address] [place], [address] ORTHOPEDIC VISIT Observed: 03/04/2018 Status: F Source: [place] REPORT 11:55 AM [facility] REPOSITORY [facility] [address] [place] [address] OFFICE VISIT Date of Service: 02/13/18 MR#: [id number] Acct: [id number] Name: ASTERJOIEDOLORESATTILA Lois Rep #: [id number] : 1970 Provider: Claribel Batista DO Age/Sex: 48/M Location: [facility] Status: Signed Intake Intake Visit Reasons: RIGHT [...] sleep apnea) (Acute) Atherosclerotic heart disease of [place] coronary artery without angina pectoris (Chronic) Nephrolithiasis [...] Route Admin Location Lot Number Expiration DateNDC Ham Doctor 2 mg Intra-Articularright sub [id number] 02/18/19 5448-1216-18 Accuradio SQUIBB Assessment AND Plan 1. 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 (49352) 03/04/18 1155 <Electronically signed by Claribel Batista DO> Date Claribel Colladoigndolores Signature: Date (if applicable) CC: INTERNAL MEDICINE Observed: 02/26/2018 Status: F Source: [place] OFFICE VISIT 3:03 PM [facility] Internal Medicine [address] [place] [address] [place] [address] OFFICE VISIT Date of Service: 02/26/18 MR#: [id number] Acct: [id number] Name: ATTILA DEL CID Lois Rep #: [id number] : 1970 Provider: Tawanda Colon NP Age/Sex: 48/M Location: [facility] Status: Signed Intake Vital Signs02/26/18 Height 5 [...] sleep apnea) (Acute) Atherosclerotic heart disease of [place] coronary artery without angina pectoris (Chronic) Nephrolithiasis [...] a follow up recent cardioversion done in [facility] ED on 02/24/2018. He has a past [...] He follows with Dr. Andrew at the [facility] and cardiology locally. He does note [...] <Electronically signed by Tawanda KLEIN> Date Tawanda Colon NP-C Cosigner Signature: Date (if applicable) CC: Rosalinda Lee 12 LEAD ELECTROCARDIOGRAM Observed: 02/26/2018 Status: F Source: [place] 2:01 PM [facility] REPOSITORY [facility] Cardiovascular Services [address] [place] [address] 12 Lead EKG 02/24/18 0829 MR#: [id number] Acct: [id number] Name: ATTILA DEL CID Rep #: [id number] : 1970 48 From: Asael Hale MD Attending Dr: Status: DEP Ordering Dr: Isaac Ahmadi MD Date: 02/24/18 [...] Normal ECG Confirmed by ALEXIA CONNOR, ASAEL ([id number]), dictionary editor RICCO LEWIS ([id number]) on 02/26/2018 2:00:56 PM Referred By: CARRIE Confirmed By:ASAEL HALE MD 02/26/18 1400 Date Asael Hale MD CC: Nyla Bearden MD; Isaac Ahmadi MD Signed 12 LEAD ELECTROCARDIOGRAM Observed: 02/26/2018 Status: F Source: [place] 2:00 PM [facility] Cardiovascular Services [address] [place] [address] 12 Lead EKG 02/24/18 0803 MR#: [id number] Acct: [id number] Name: ATTILA DEL CID Rep #: [id number] : 1970 48 From: Asael Hale MD [...] T wave abnormality Abnormal ECG Confirmed by ALEXIA CONNOR, ASAEL ([id number]), dictionary editor RICCO LEWIS (56) on 02/26/2018 1:59:57 PM Referred By: CARRIE Confirmed By:ASAEL HALE MD 02/26/18 1400 Date Asael Hale MD CC: Nyla Bearden MD; Isaac Ahmadi MD Signed 12 LEAD ELECTROCARDIOGRAM Observed: 02/24/2018 Status: F Source: [place] 1:54 PM [facility] RE[facility]IT[facility] Cardiovascular Services [address] [place] [address] 12 Lead EKG 02/20/18 1937 MR#: [id number] Acct: [id number] Name: ATTILA DEL CID Rep #: [id number] : 1970 48 From: Jesse Stokes MD [...] DISCHARGE INSTRUCTION Observed: 02/24/2018 Status: F Source: [place] 9:00 AM [facility] Medical Records Department [address] [place] [address] Discharge Instruction 02/24/18 0859 MR#: [id number] Acct: [id number] Name: ATTILA DEL CID Rep #: [id number] : 1970 48 From: Isaac Ahmadi MD [...] your Primary Care Provider. Call [facility] ([phone]) or report to the closest Emergency Room. Call 911 if necessary. 02/24/18 0900 <Electronically signed by Isaac Ahmadi MD> Date Isaac Ahmadi MD Cosigner Signature (If Indicated): Date CC: Nyla Bearden MD EMERGENCY DEPARTMENT Observed: 02/24/2018 Status: F Source: [place] SUMMARY 8:59 AM [facility] REPOSITORY [facility] Medical Records Department [address] [place] [address] Emergency Department Summary 02/24/18 0826 MR#: [id number] Acct: [id number] Name: ATTILA DEL CID Rep #: [id number] : 1970 48 From: Isaac Ahmadi MD [...] ED physician This note was generated with Preggers dictation software. It may contain incorrect words, [...] your Primary Care Provider. Call [facility] ([phone]) or report to the closest Emergency Room. Call 911 if necessary. 02/24/18 0859 <Electronically signed by Isaac Ahmadi MD> Date Isaac Ahmadi MD Cosigner Signature (If Indicated): Date CC: Nyla Bearden MD CBC W/DIFF, AUTOMATED Collected: 02/24/2018 Status: F Source: [place] 8:11 AM [facility] REPOSITORY TYPE CODE TESTS RESULT OUT OF [...] Lymph 3.39 Performed By: #### L100.0100 #### [facility] [address] [place], [address] BASIC METABOLIC Collected: 02/24/2018 Status: F Source: [place] PROFILE (BMP) 8:11 AM [facility] REPOSITORY Order Comment: 'TROP' Serial specimen #1, [...] GAP Performed By: #### L500.2500, L501.4010 #### [facility] [address] [facility] [place], [address] TROPONIN-I Collected: 02/24/2018 Status: F Source: [place] 8:11 AM [facility] REPOSITORY Order Comment: 'TROP' Serial specimen #1, #2, #3, or #4: 1 TYPE CODE TESTS RESULT OUT OF RANGE REFERENCE UNITS LAB L501.4010 <0.06 ng/mL Normal < 0.02 TROPONIN-I Result Comment: TROPONIN-I EXPECTED VALUES <0.05 NEGATIVE 0.06 - 0.59 AT RISK OF MN > OR = 0.60 SUGGEST MN Performed By: #### L500.2500, L501.4010 #### [facility] [address] [facility] [place], [place], [address] CHEST 1 VIEW Observed: 02/24/2018 Status: F Source: [place] (PORTABLE) 8:07 AM [facility] REPOSITORY [facility] Imaging Services [address] [place] [address] Chest 1 View (Portable) MR#: [id number] Acct: [id number] Name: ATTILA DEL CID Rep #: [id number] : 1970 M 48 From: Pablito Young MD PCP: Nyla Bearden MD Status: REG ER Study: Chest 1 View (Portable) Date of Exam: 02/24/18 Exam# [id number] Ordering Dr: Isaac Ahmadi MD STUDY: X-RAY [...] Pablito Young MD at 8:44 EDT Tel [phone], Service support , CC: Nyla Bearden MD; Isaac Ahmadi MD Grill Chef: Signed 12 LEAD ELECTROCARDIOGRAM Observed: 02/21/2018 Status: F Source: [place] 3:15 PM [facility] REPOSITORY [facility] Cardiovascular Services [address] [place] [address] 12 Lead EKG 02/17/181918 MR#: [id number] Acct: [id number] Name: ATTILA DEL CID Rep #: [id number] : 1970 48 From: Jesse Stokes MD [...] 02/21/2018 Status: F Source: [place] 3:15 PM [facility] REPOSITORY [facility] Cardiovascular Services [address] [place] [address] 12 Lead EKG 02/17/18 2204 MR#: [id number] Acct: [id number] Name: PEGDOLORESATTILA Lois Rep #: [id number] : 1970 48 From: Jesse Stokes MD [...] CARDIOLOGY VISIT Observed: 02/21/2018 Status: F Source: [place] REPORT 10:44 AM [facility] REPOSITORY [facility] [address] [place] [address] OFFICE VISIT Date of Service: 02/21/18 MR#: [id number] Acct: [id number] Name: ATTILA DEL CID Rep #: [id number] : 1970 Provider: Jesse Stokes MD Age/Sex: 48/M Location: [facility] Status: Signed HPI HPI Chief Complaint: Follow-up [...] response rate and was sent to the [facility] where he underwent a repeat ablation. 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 This has been sent to the [facility] certified alcohol and drug counselor. 2. Essential hypertension I10 Plan His blood [...] Medications New: Discontinued: Follow Up 6 Months (r) Coding Level of Care Code Off vis,est,level [...] Stokes MD> Date Jesse Stokes MD Cosigner Signature: Date (if applicable) CC: Nyla Bearden MD EMERGENCY DEPARTMENT Observed: 02/20/2018 Status: F Source: [place] SUMMARY 8:30 PM [facility] REPOSITORY [facility] Medical Records Department [address] [place] [address] Emergency Department Summary 02/20/182024 MR#: [id number] Acct: [id number] Name: ATTILA DEL CID Rep #: [id number] : 1970 48 From: Irwin Alejo MD [...] cardiac cath approximately 12 months ago at [facility] and it was normal. Even though he has a normal cardiac cath he reports prior MN. He has no stents. He did have [...] atrial fibrillation This note was generated with Preggers dictation software. It may contain incorrect words, spelling, and punctuation that were not noted in review of the chart prior to signing ED Disposition - Plan for ED Patient: Disposition: Home or Assisted Living Chief Complaint: Chest Pain Instructions: ED Chest Pain NonCardiac Referrals: Nlya Bearden MD [Primary Care Provider] - 3-5 Days What to do if you have Problems For any increased pain, shortness of breath, bleeding, nausea or vomiting, chest pain, or any unexpected problems, contact your Primary Care Provider. Call [facility] ([phone]) or report to the closest Emergency Room. Call 911 if necessary. 02/20/182029 <Electronically signed by Irwin Alejo MD> Date Irwin Alejo MD Cosigner Signature (If Indicated): Date CC: Nyla Bearden MD TROPONIN-I Collected: 02/20/2018 Status: F Source: [place] 7:30 PM [facility] REPOSITORY Order Comment: 'TROP' Serial specimen #1, #2, #3, or #4: 1 TYPE CODE TESTS RESULT OUT OF RANGE REFERENCE UNITS LAB L501.4010 <0.06 ng/mL Normal < 0.02 TROPONIN-I Result Comment: TROPONIN-I EXPECTED VALUES <0.05 NEGATIVE 0.06 - 0.59 AT RISK OF MN > OR = 0.60 SUGGEST MN Performed By: #### L501.4010 #### [facility] [address] [place], [address] INTERNAL MEDICINE Observed: 02/18/2018 Status: F Source: [place] OFFICE VISIT 5:03 PM [facility] REPOSITORY [facility] [address] [place] [address] OFFICE VISIT Date of Service: 02/18/18 MR#: [id number] Acct: [id number] Name: ATTILA DEL CID Rep #: [id number] : 1970 Provider: Tawanda Colon NP Age/Sex: 48/M Location: [facility] Status: Signed Intake Vital Signs02/18/18 Height 5 [...] sleep apnea) (Acute) Atherosclerotic heart disease of [place] coronary artery without angina pectoris (Chronic) Nephrolithiasis [...] as listed above. He was seen at [facility] emergency department on 02/16/2018 with complaints of [...] follow-up appointment later this week with his car trimmer and that he has seeing Dr. Reyna [...] sodium intake. This note was generated with Preggers dictation software. It may contain incorrect words, [...] DISCHARGE INSTRUCTION Observed: 02/18/2018 Status: F Source: [place] 1:20 AM [facility] REPOSITORY [facility] Medical Records Department [address] [place] [address] Discharge Instruction 02/18/18 0119 MR#: [id number] Acct: [id number] Name: PEGDOLORESKOFIATTILA Lois Rep #: [id number] : 1970 48 From: Rosalba Stein MD [...] problems, contact your Primary Care Provider. Call [facility] ([phone]) or report to the closest Emergency Room. Call 911 if necessary. 02/18/18 0120 <Electronically signed by Rosalba Stein MD> Date Rosalba Stein MD Cosigner Signature (If Indicated): Date CC: Nyla Bearden MD EMERGENCY DEPARTMENT Observed: 02/18/2018 Status: F Source: [place] SUMMARY 1:19 AM [facility] RE[facility]IT[facility] Medical Records Department [address] [place] [address] Emergency Department Summary 02/17/18 193 MR#: [id number] Acct: [id number] Name: ATTILA DEL CID Rep #: [id number] : 1970 48 From: Rosalba Stein MD [...] Chest pain This note was generated with Preggers dictation software. It may contain incorrect words, [...] your Primary Care Provider. Call [facility] ([phone]) or report to the closest Emergency Room. Call 911 if necessary. 02/18/18 0119 <Electronically signed by Rosalba Stein MD> Date Rosalba Stein MD Cosigner Signature (If Indicated): Date CC: Nyla Bearden MD TROPONIN-I Collected: 02/18/2018 Status: F Source: [place] 12:35 AM [facility] REPOSITORY Order Comment: 'TROP' Serial specimen #1, #2, #3, or #4: 2 TYPE CODE TESTS RESULT OUT OF RANGE REFERENCE UNITS LAB L501.4010 <0.06 ng/mL Normal < 0.02 TROPONIN-I Result Comment: TROPONIN-I EXPECTED VALUES <0.05 NEGATIVE 0.06 - 0.59 AT RISK OF [place] > OR = 0.60 SUGGEST [place] Performed By: #### L501.4010 #### [facility] [address] [place] [address]. [place], [address] CTA CHEST W/WO Observed: 02/17/2018 Status: F Source: [place] CONTRAST 7:36 PM [facility] REPOSITORY [facility] Imaging Services [address] [place] [address] CTA Chest W/WO Contrast MR#: [id number] Acct: [id number] Name: ATTILA DEL CID Rep #: [id number] : 1970 M 48 From: Carlos Atkins DO PCP: Nyla Bearden MD Status: REG ER Study: CTA Chest W/WO Contrast Date of Exam: 02/17/18 Exam# [id number] Ordering Dr: Rosalba Stein MD STUDY: CTA [...] Carlos Atkins DO at 20:48 EDT Tel [phone], Service support , CC: Rosalba Stein MD; Nyla Bearden MD Grill Chef: Signed CHEST 1 VIEW Observed: 02/17/2018 Status: F Source: [place] (PORTABLE) 7:28 PM [facility] REPOSITORY [facility] Imaging Services [address] [place] [address] Chest 1 View (Portable) MR#: [id number] Acct: [id number] Name: ATTILA DEL CID Rep #: [id number] : 1970 M 48 From: Carlos Atkins DO PCP: Nyla Bearden MD Status: REG ER Study: Chest 1 View (Portable) Date of Exam: 02/17/18 Exam# [id number] Ordering Dr: Rosalba Stein MD STUDY: X-RAY [...] Carlos Atkins DO at 20:02 EDT Tel [phone], Service support , CC: Rosalba Stein MD; Nyla Bearden MD Grill Chef: Signed CBC W/DIFF, AUTOMATED Collected: 02/17/2018 Status: F Source: [place] 7:20 PM [facility] REPOSITORY TYPE CODE TESTS RESULT OUT OF [...] Lymph 2.36 Performed By: #### L100.0100 #### [facility] [address] [place], [address] BASIC METABOLIC Collected: 02/17/2018 Status: F Source: [place] PROFILE (BMP) 7:20 PM [facility] REPOSITORY Order Comment: 'TROP' Serial specimen #1, [...] 9 Performed By: #### L500.2500, L501.4010 #### [facility] [address] [place], [address] TROPONIN-I Collected: 02/17/2018 Status: F Source: [place] 7:20 PM [facility] REPOSITORY Order Comment: 'TROP' Serial specimen #1, #2, #3, or #4: 1 TYPE CODE TESTS RESULT OUT OF RANGE REFERENCE UNITS LAB L501.4010 <0.06 ng/mL Normal < 0.02 TROPONIN-I Result Comment: TROPONIN-I EXPECTED VALUES <0.05 NEGATIVE 0.06 - 0.59 AT RISK OF [place] > OR = 0.60 SUGGEST [place] Performed By: #### L500.2500, L501.4010 #### [facility] [address] [facility] [place], [address] EMERGENCY DEPARTMENT Observed: 02/17/2018 Status: F Source: [place] SUMMARY 12:30 AM [facility] REPOSITORY [facility] Medical Records Department [address] [place] [address] Emergency Department Summary 02/16/18 2345 MR#: [id number] Acct: [id number] Name: ATTILA DEL CID Rep #: [id number] : 1970 48 From: Chavez Byrd MD PCP: Nyla Bearden MD Status: DEP ER - ER Visit Summary Date of Service: 02/16/18 Chief Complaint: Right flank pain History of Present Illness: The patient is a 48 M reportedly history of kidney stones. Prior CVA, CAD, [place] and hypertension. Patient complaining of right flank [...] renal calculi This note was generated with Preggers dictation software. It may contain incorrect words, [...] your Primary Care Provider. Call [facility] ([phone]) or report to the closest Emergency Room. Call 911 if necessary. 02/17/18 0030 <Electronically signed by Chavez Byrd MD> Date Chavez Byrd MD Cosigner Signature (If Indicated): Date CC: Nyla Bearden MD DISCHARGE INSTRUCTION Observed: 02/17/2018 Status: F Source: [place] 12:30 AM [facility] REPOSITORY [facility] Medical Records Department [address] [place] [address] Discharge Instruction 02/16/18 2348 MR#: [id number] Acct: [id number] Name: ATTILA DEL CID Rep #: [id number] : 1970 48 From: Chavez Byrd MD [...] your Primary Care Provider. Call [facility] ([phone]) or report to the closest Emergency Room. Call 911 if necessary. 02/17/18 0030 <Electronically signed by Chavez Byrd MD> Date Chavez Byrd MD Cosigner Signature (If Indicated): Date CC: Nyla Bearden MD URINALYSIS, COMPLETE Collected: 02/16/2018 Status: F Source: [place] 8:24 PM [facility] REPOSITORY Order Comment: Order Date: 02/16/18 Has [...] MUCUS, URINE Performed By: #### L400.0001 #### [facility] [address] [facility] [place], [address] ABDOMEN/PELVIS WITHOUT Observed: 02/16/2018 Status: F Source: [place] CONT 7:34 PM [facility] REPOSITORY [facility] Imaging Services [address] [place] [address] Abdomen/Pelvis without Cont MR#: [id number] Acct: [id number] Name: ATTILA DEL CID Rep #: [id number] : 1970 M 48 From: Freddy Contreras MD PCP: Nyla Bearden MD Status: REG ER Study: Abdomen/Pelvis without Cont Date of Exam: 02/16/18 Exam# [id number] Ordering Dr: Chavez Byrd MD STUDY: CT [...] CC: Nyla Bearden MD; Chavez Byrd MD Grill Chef: Signed BASIC METABOLIC Collected: 02/16/2018 Status: F Source: [place] PROFILE (BMP) 7:30 PM [facility] REPOSITORY TYPE CODE TESTS RESULT OUT OF [...] Normal 5 Performed By: #### L500.2500 #### [facility] [address] [place], [place], [address] INITAL EVALUATION (1) Observed: 02/05/2018 Status: F Source: [place] - PT 5:13 PM [facility] REPOSITORY [facility] [address] [place] [address]. [address] [place] [address] Fax REHABILITATION SERVICES INITIAL EVALUATION MR#: [id number] Acct: [id number] Name: ATTILA DEL CID Rep #: [id number] : 1970 48 From: Joaquina Harris PT, Cert. MDT Referring Dr.: Claribel Batista DO Status: REG RCR Insurance: MEDICARE PART A B SELF PAY INSURANCE Patient's Visit Information ATTILA DEL CID is a 48 year old M referred to Physical Therapy by Claribel Batista DO with a diagnosis of R RC TENDINOSIS/BICEPS TENDINOSIS/SUBACROMIAL IMPINGEMENT. Date of Evaluation: 02/05/18 Physical Therapist: oJaquina Harris - Visit Plan Frequency: 2-3x /Week [...] Pain Scale: WORST 9/10, LEAST 3/10. Currently: /10. 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 PATIENT IS RIGHT HAND DOMINANT. MMT [...] to be FAXED BACK to us at [phone] for Medicare purposes. Please let me know if there are questions or concerns regarding this plan of care. Physician Signature: Date: <Electronically signed by Joaquina Harris PT, Cert. MDT> 02/05/18 1713 CC: Claribel Batista DO; Nyla Bearden MD EMMANUEL Signed For Medicare only, by signing this I certify the plan of care. Physicians Signature Date CNPTOUTREACH Observed: 02/04/2018 Status: COMPLETED Source: [place] 12:00 AM [facility] REPOSITORY Patient Outreach (FAMPST) ATTILA DEL CID ([id number]) 1970 M Date Time Provider Department 02/04/18 [facility] During your visit today, we recorded the following information about you: Allergies As of Date: 02/04/2018 Noted Allergy Reaction CELEBREX (CELECOXIB) 07/17/2016 11 - Vomiting Comments: Nausea CLONIDINE 07/17/2016 2 - Rash FENTANYL 07/17/2016 8 - GI Upset LEVOFLOXACIN 04/13/2017 2 - Rash Comments: pt reports to [facility] PT 6--2017 PENICILLIN G 12/30/2013 2 - Rash RELPAX (ELETRIPTAN HBR) 07/17/2016 11 - Vomiting Comments: Nausea TOPAMAX (TOPIRAMATE) 07/17/2016 11 - Vomiting VICODIN (HYDROCODONE-ACETAMINOPHE*12/30/2013 11 - Vomiting WELLBUTRIN (BUPROPION HCL) 07/17/2016 11 - Vomiting Comments: Nausea Date Reviewed: 10/02/2017 Reviewed by: Camron Perez - Fully Assessed Visit Diagnosis:Medication management [Z79.899] Order(s):BASIC METABOLIC PNL [SQBMP] Order #: [id number] FUTURE LIPID PANEL BASIC [SQLIPB] Order #: [id number] FUTURE Prescriptions as of 02/04/2018 Sig: GABAPENTIN 300 MG CAPSULE Take 100 mg by mouth daily at* X DVQYOJYRKU-PBVEQAXOPAWZO-XHCI* X OXYCODONE-ACETAMINOPHEN 5 MG-* APIXABAN 5 MG [...] knee with p*INVALID FOR* Encounter Status:Closed by EPIC, PRODUSER on 08/01/18 GASTRIC EMPTYING Observed: 01/20/2018 Status: F Source: [place] STUDY 10:45 AM [facility] REPOSITORY [facility] Imaging Services [address] [place] [address] Gastric Emptying Study MR#: [id number] Acct: [id number] Name: ATTILA DEL CID Lois Rep #: [id number] : 1970 M 47 From: Nirmala Hayes DO PCP: Nyla Bearden MD Status: REG CLI Study: Gastric Emptying Study Date of Exam: 01/20/18 Exam# [id number] Ordering Dr: John Davis MD CLINICAL: 47-year-old [...] , CC: Nyla Bearden MD; John Davis Grill Chef: Signed ORTHOPEDIC VISIT Observed: 01/16/2018 Status: F Source: [place] REPORT 9:25 AM [facility] REPOSITORY [facility] [address] [place] [address] OFFICE VISIT Date of Service: 01/14/18 MR#: [id number] Acct: [id number] Name: ATTILA DEL CID Rep #: [id number] : 1970 Provider: Claribel Batista DO Age/Sex: 47/M Location: [facility] Status: Signed Intake Intake [...] tablet 20 mg PO QDAY #60 tab 01/22/18 [Rx Confirmed 01/14/18] amlodipine 10 mg tablet [...] G56.01 01/16/18 0925 <Electronically signed by Claribel Batista DO> Date Claribel Batista DO Cosigner Signature: Date (if applicable) CC: INTERNAL MEDICINE Observed: 01/14/2018 Status: F Source: [place] OFFICE VISIT 6:04 PM [facility] [place] [address] OFFICE VISIT Date of Service: 01/14/18 MR#: [id number] Acct: [id number] Name: ATTILA DEL CID Rep #: [id number] : 1970 Provider: Tawanda Colon NP Age/Sex: 47/M Location: [facility].[place] Status: Signed Intake Vital Signs01/14/18 Height 5 [...] instructed him to follow-up with either his car trimmer office or the physician who performed the [...] EMERGENCY DEPARTMENT Observed: 01/10/2018 Status: F Source: [place] SUMMARY 11:09 PM [facility] REPOSITORY [facility] Medical Records Department [address] [place] [address] Emergency Department Summary 01/10/18 2205 MR#: [id number] Acct: [id number] Name: ATTILA DEL CID Rep #: [id number] : 1970 47 From: Cassy Arauz MD [...] for discharge. He will follow-up with Dr. Alexandra as scheduled. Treatment Plan: [] Disposition: Discharge Impression:. Right rotator cuff arthropathy This note was generated with Preggers dictation software. It may contain incorrect words, spelling, and punctuation that were not noted in review of the chart prior to signing ED Disposition - Plan for ED Patient: Chief Complaint: Upper Extremity Injury Instructions: ED Tendinitis Rotator Cuff Referrals: Claribel Batista DO [STAFF PHYSICIAN] - What to do if you have Problems For any increased pain, shortness of breath, bleeding, nausea or vomiting, chest pain, or any unexpected problems, contact your Primary Care Provider. Call [facility] ([phone]) or report to the closest Emergency Room. Call 911 if necessary. 01/10/18 8182 <Electronically signed by Cassy Arauz MD> Date Cassy Arauz MD Cosigner Signature (If Indicated): Date CC: Nyla Bearden MD UPPER EXT JOINT Observed: 01/03/2018 Status: F Source: [place] ONLY(ROUTINE) 5:01 PM [facility] REPOSITORY [facility] Imaging Services [address] [place] [address] Upper Ext Joint Only(Routine) MR#: [id number] Acct: [id number] Name: ATTILA DEL CID Rep #: [id number] : 1970 M 47 From: Leonila Lewis MD PCP: Nyla Bearden MD Status: REG CLI Study: Upper Ext Joint Only(Routine) Date of Exam: 01/03/18 Exam# [id number] Ordering Dr: Claribel Batista DO STUDY: MRI [...] CC: Claribel Batista DO; Nyla Bearden MD Grill Chef: Signed ORTHOPEDIC VISIT Observed: 12/19/2017 Status: F Source: [place] REPORT 2:07 PM [facility] REPOSITORY [facility] [address] [place] [address] OFFICE VISIT Date of Service: 12/19/17 MR#: [id number] Acct: [id number] Name: ATTILA DEL CID Rep #: [id number] : 1970 Provider: Claribel Batista DO Age/Sex: 47/M Location: [facility] Status: Signed Intake Intake Visit Reasons: RIGHT [...] months ago by a doctor at the [facility] which was helpful for about 3 [...] Claribel Batista DO> Date Claribel Batista DO Cosigndolores Signature: Date (if applicable) CC: SHOULDER MIN 2 VIEWS Observed: 12/19/2017 Status: F Source: [place] 1:29 PM [facility] REPOSITORY [facility] Imaging Services [address] [place], [place] [address] [address] Shoulder min 2 Views MR#: [id number] Acct: [id number] Name: ATTILA DEL CID Rep #: [id number] : 1970 M 47 From: Teto Mccann DO PCP: Nyla Bearden MD Status: REG CLI Study: Shoulder min 2 Views Date of Exam: 12/19/17 Exam# [id number] Ordering Dr: Claribel Batista DO STUDY: X-RAY [...] CC: Claribel Batista DO; Nyla Bearden MD Grill Chef: Signed 12 LEAD ELECTROCARDIOGRAM Observed: 12/18/2017 Status: F Source: [place] 2:11 PM [facility] REPOSITORY [facility] Cardiovascular Services [address] [place] [address] 12 Lead EKG 12/16/172050 MR#: [id number] Acct: [id number] Name: ATTILA DEL CID Rep #: [id number] : 1970 47 From: Jesse Stokes MD Attending Dr: Status: DEP ER Ordering Dr: Rickey, [place] P. Date: 12/16/17 Location: ED Sex: M [...] EMERGENCY DEPARTMENT Observed: 12/17/2017 Status: F Source: [place] SUMMARY 1:22 AM [facility] REPOSITORY [facility] Medical Records Department [address] [place] [address] Emergency Department Summary 12/16/17 2303 MR#: [id number] Acct: [id number] Name: ATTILA DEL CID Rep #: [id number] : 1970 47 From: Rosalba Stein MD [...] Chest pain This note was generated with Preggers dictation software. It may contain incorrect words, [...] your Primary Care Provider. Call [facility] ([phone]) or report to the closest Emergency Room. Call 911 if necessary. 12/17/17 0122 <Electronically signed by Rosalba Stein MD> Date Rosalba Stein MD Cosigner Signature (If Indicated): Date CC: Nyla Bearden MD DISCHARGE INSTRUCTION Observed: 12/17/2017 Status: F Source: [place] 1:11 AM [facility] REPOSITORY [facility] Medical Records Department [address] [place] [address] Discharge Instruction 12/17/17 0110 MR#: [id number] Acct: [id number] Name: ATTILA DEL CID Rep #: [id number] : 1970 47 From: Rosalba Stein MD [...] your Primary Care Provider. Call [facility] ([phone]) or report to the closest Emergency Room. Call 911 if necessary. 12/17/17 0111 <Electronically signed by Rosalba Stein MD> Date Rosalba Stein MD Cosigner Signature (If Indicated): Date CC: Nyla Bearden MD TROPONIN-I Collected: 12/17/2017 Status: F Source: [place] 12:25 AM [facility] REPOSITORY Order Comment: 'TROP' Serial specimen #1, #2, #3, or #4: 2 TYPE CODE TESTS RESULT OUT OF RANGE REFERENCE UNITS LAB L501.4010 <0.06 ng/mL Normal < 0.02 TROPONIN-I Result Comment: TROPONIN-I EXPECTED VALUES <0.05 NEGATIVE 0.06 - 0.59 AT RISK OF [place] > OR = 0.60 SUGGEST [place] Performed By: #### L501.4010 #### [facility] [address] [place], [address] CBC W/DIFF, AUTOMATED Collected: 12/16/2017 Status: F Source: [place] 9:05 PM [facility] REPOSITORY TYPE CODE TESTS RESULT OUT OF [...] Lymph 2.26 Performed By: #### L100.0100 #### [facility] [address] [place], [place], [address] BASIC METABOLIC Collected: 12/16/2017 Status: F Source: [place] PROFILE ([facility]) 9:05 PM [facility] REPOSITORY Order Comment: 'TROP' Serial specimen #1, [...] 7 Performed By: #### L500.2500, L501.4010 #### [facility] [address] [facility] [address] [place], [place], [address] TROPONIN-I Collected: 12/16/2017 Status: F Source: [place] 9:05 PM [facility] REPOSITORY Order Comment: 'TROP' Serial specimen #1, #2, #3, or #4: 1 TYPE CODE TESTS RESULT OUT OF RANGE REFERENCE UNITS LAB L501.4010 <0.06 ng/mL Normal < 0.02 TROPONIN-I Result Comment: TROPONIN-I EXPECTED VALUES <0.05 NEGATIVE 0.06 - 0.59 AT RISK OF MN > OR = 0.60 SUGGEST [place] Performed By: #### L500.2500, L501.4010 #### [facility] [address] [place], [place], [address] CHEST 1 VIEW Observed: 12/16/2017 Status: F Source: [place] (PORTABLE) 8:53 PM [facility] REPOSITORY [facility] Imaging Services [address] [place] [address] [place] [address] Chest 1 View (Portable) MR#: [id number] Acct: [id number] Name: ATTILA DEL CID Rep #: [id number] : 1970 M 47 From: Soto Mena MD PCP: Nyla Bearden MD Status: PRE ER Study: Chest 1 View (Portable) Date of Exam: 12/16/17 Exam# [id number] Ordering Dr: Rosalba Stein MD STUDY: X-RAY [...] CC: Rosalba Stein MD; Nyla Bearden MD Grill Chef: Signed EGD ([facility]) Observed: 12/02/2017 Status: F Source: [place] 11:57 AM [facility] REPOSITORY Patient: ATTILA DEL CID : 1970 (47/M) Acct Num: [id number] Phys: John [place] Unit Num: [id number] Loc: LABSPEC Specimen: [id number] Received: 12/02/17 - 8374 Spec Type: EGD BIOPSY TISSUES TISSUES: Gastric mucous membrane COMMENT The results of immunohistochemistry for Helicobacter pylori will be reported separately ([id number]). GROSS DESCRIPTION Received in fixative is one container labeled with the patient's name and designated gastric biopsy. The specimen consists of multiple irregular fragments of light casiano soft tissue that in aggregate measure 0.6 x 0.2 x 0.1 cm. The specimen is totally submitted in one cassette. / AM: 12/03/17 TC:3 CPT: 84012 HEADER OPERATION: EGD with biopsy PRE-OP DIAGNOSIS: Nausea, abdomen pain TISSUE SUBMITTED: Biopsy gastric antrum/body, rule out gastritis MICROSCOPIC DESCRIPTION Slides are reviewed. Sections show small collections and groups of plasma cells in the mucosa. Active inflammation is not present. These findings are consistent with mild chronic gastritis. MICROSCOPIC DIAGNOSIS Gastric antrum/body, biopsy: Gastritis. AM: 12/04/17 Signed [place] Eunice 12/04/17 <signature on file> Performed By: #### PEGD #### [facility] [address] [place], [address] IMMUNOHISTOCHEMISTRY Observed: 12/02/2017 Status: F Source: [place] 12:00 AM [facility] REPOSITORY Patient: ATTILA DEL CID : 1970 (47/M) Acct Num: [id number] Phys: John [place] Unit Num: [id number] Loc: LABSPEC Specimen: [id number] Received: 12/04/17 - 1111 Spec Type: IMMUNO TISSUES TISSUES: Stomach, NOS SPECIMEN INFORMATION: Tissue Source: Biopsy gastric antrum/body Clinical Info: Nausea, abdomen pain Specimen Number: [id number] CPT code: 44621 METHODOLOGY: Deparaffinized sections of prefer/formalin-fixed tissue or PAP/DQ stained slides are incubated with monoclonal/polyclonal antibodies/oligonucleotide probes. Localization is made via biotin free immunoperoxidase method. Appropriate controls are performed and reacted as expected. Results on target cell population are indicated in the following table: RESULTS: ANTIBODY / CLONE RESULT H Pylori (polyclonal) negative These tests were developed and their performance characteristics determined by [facility]. They may not have been cleared or approved by the U.S. Food and Drug Administration. The FDA has determined that such clearance or approval is not necessary. INTERPRETATION: Gastric antrum/body, biopsy: Negative for Helicobacter pylori organisms. AM:abbe 12/05/17 PHYSICIAN [facility] INSTITUTION [address] [address] Signed Calvin Eunice 12/05/17 <signature on file> Performed By: #### PIMM #### [facility] [address] [place] [address]. [place], [address] EMERGENCY DEPARTMENT Observed: 12/01/2017 Status: F Source: [place] SUMMARY 12:08 AM [facility] REPOSITORY [facility] Medical Records Department [address] [place] [address] Emergency Department Summary 11/30/17 2356 MR#: [id number] Acct: [id number] Name: ATTILA DEL CID Lois Rep #: [id number] : 1970 47 From: Wyatt Brunson MD [...] will give him a short course of [place]; considered Voltaren gel since he is on Eliquis, but it appears that the combination is relatively contraindicated, so will avoid. Treatment Plan: As above and close outpatient follow-up with sports medicine Disposition: Discharge home Impression: Right shoulder impingement syndrome This note was generated with Preggers dictation software. It may contain incorrect words, [...] #10 tab PRN Reason: Pain Referrals: Camron Kahn DO [STAFF PHYSICIAN] - 5-7 Days What to do if you have Problems For any increased pain, shortness of breath, bleeding, nausea or vomiting, chest pain, or any unexpected problems, contact your Primary Care Provider. Call [facility] ([phone]) or report to the closest Emergency Room. Call 911 if necessary. 12/01/17 0008 <Electronically signed by Wyatt Brunson MD> Date Wyatt Brunson MD Cosigner Signature (If Indicated): Date CC: Camron Kahn DO; Nyla Bearden MD INTERNAL MEDICINE Observed: 11/18/2017 Status: F Source: [place] OFFICE VISIT 8:42 AM [facility] [address] [place] [address] OFFICE VISIT Date of Service: 11/11/17 MR#: [id number] Acct: [id number] Name: ATTILA DEL CID Rep #: [id number] : 1970 Provider: Nyla Bearden MD Age/Sex: 47/M Location: [facility] Status: Signed Intake Vital Signs11/11/17 Height 5 ft 11 in 11/11/17 Weight: 250 lb 8 oz Intake Visit 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 he was referred here by Dr. Stokes. He reports a history of Anxiety spanning [...] as scheduled. This note was generated with Pre[employer] dictation software. It may contain incorrect words, [...] SEVERITY SOURCE 11/08/2018 Drug hydrocodone Nausea Unknown [facility]416 bitartrate/V083437 Hospital 236789(SNOM 555(RXNORM) Repository ED CT) 11/08/2018 Drug Penicillins/R82371 Hives Unknown [facility]/416 0476(RXNORM) Hospital 450101(SNOM Repository ED CT) 11/08/2018 Drug clonidine/[id number] Rash [place] [facility]/416 95(RXNORM) Hospital 524364(SNOM Repository ED CT) 11/08/2018 Drug bupropion/[id number] Vomiting [place] [facility]/416 11(RXNORM) Hospital 572988(SNOM Repository ED CT) 11/08/2018 Drug ketorolac/B0528137 Other Unknown [facility]/416 12(RXNORM) Hospital 406662(SNOM Repository ED CT) 11/08/2018 Drug topiramate/L322814 Vomiting [place] [facility]ergy/416 453(RXNORM) Hospital 167584(SNOM Repository ED CT) 11/08/2018 Drug levofloxacin/F0060 Rash Unknown [place] [facility]/416 16516(RXNORM) Hospital 886994(SNOM Repository ED CT) 11/08/2018 Drug celecoxib/D4115154 Vomiting [place] [facility]ergy/416 31(RXNORM) Hospital 900504(SNOM Repository ED CT) 11/08/2018 Drug eletriptan/I877258 Vomiting [place] [facility]ergy/416 521(RXNORM) Hospital 308342(SNOM Repository ED CT) 11/04/2018 DRUG KETOROLAC [facility] INGREDI/419 [address] [place] 196756(SNOM Repository ED CT) 10/28/2018 DRUG LEVOFLOXACIN RASH [facility] INGREDI/419 System Repository 967634(SNOM ED CT) 10/28/2018 Drug [facility]ILLINS [facility]58981 [facility] 1003(SNOMED CT) 10/28/2018 DRUG/789638 HYDROCODONE-ACETAM UPSET STOMAC [facility] 003(SNOMED INOPHEN System Repository CT) 04/02/2018 Drug fentanyl/[id number] Unknown Unknown [facility]/416 1(RXNORM) Hospital 476902(SNOM Repository ED CT) 02/26/2018 Drug acetaminophen/F006 Nausea Unknown [facility]/416 880248(RXNORM) Hospital 216426(SNOM Repository ED CT) 10/09/2017 DRUG ATORVASTATIN OTHER: SEE C [facility] INGREDI/419 [address] [place] 548615(SNOM Repository ED CT) 04/13/2017 DRUG LEVOFLOXACIN RASH [facility] INGREDI/419 [address] [place] 534850(SNOM Repository ED CT) 07/17/2016 DRUG CELECOXIB Vomiting [facility] INGREDI/419 [address] [place] 253427(SNOM Repository ED CT) 07/17/2016 DRUG CLONIDINE RASH [facility] INGREDI/419 [address] [place] 425884(SNOM Repository ED CT) 07/17/2016 DRUG FENTANYL GI UPSET [facility] INGREDI/419 [address] [place] 970350(SNOM Repository ED CT) 07/17/2016 DRUG ELETRIPTAN HBR Vomiting [facility] INGREDI/419 [address] [place] 611577(SNOM Repository ED CT) 07/17/2016 DRUG TOPIRAMATE Vomiting [facility] INGREDI/419 [address] [place] 118213(SNOM Repository ED CT) 07/17/2016 DRUG BUPROPION HCL Vomiting [facility] INGREDI/419 [address] [place] 494329(SNOM Repository ED CT) 12/30/2013 DRUG PENICILLIN G RASH [facility] INGREDI/419 [address] [place] 508884(SNOM Repository ED CT) 12/30/2013 DRUG/327479 HYDROCODONE-ACETAM Vomiting [facility] 003(SNOMED INOPHEN [place] CT) Repository 11/17/2002 Drug NO KNOWN DRUG [facility] Class/94977 ALLERGIES System Repository 1003(SNOMED CT) NG/82897407 ATORVASTATIN [facility] 6(SNOMED Health System CT) Repository NG/82448421 CELECOXIB [facility] 6(SNOMED Health System CT) Repository NG/01995119 CLONIDINE [facility] 6(SNOMED Health System CT) Repository NG/31747517 FENTANYL [facility] 6(SNOMED Health System CT) Repository NG/05168215 LEVOFLOXACIN [facility] 6(SNOMED Health System CT) Repository NG/89540744 PENICILLIN G [facility] 6(SNOMED Health System CT) Repository NG/71860069 ELETRIPTAN HBR [facility] 6(SNOMED Health System CT) Repository NG/35242411 TOPIRAMATE [facility] 6(SNOMED Health System CT) Repository NG/78726654 HYDROCODONE-ACETAM [facility] 6(Bizdom [facility] Flowgram System CT) Repository NG/31273631 BUPROPION HCL [facility] 6(Confidex System CT) Repository ENCOUNTERS ENCOUNTERS ADMIT/DISCHARGE ACCOUNT NUMBER ADMITTING ENCOUNTER LOCATION SOURCE CLASS 11/15/2018 [id number] Ambulatory Building:[facility] [place] [id number]: [address] Repository 11/12/2018/ [id number] Emergency BBuilding:ER [address] Repository 11/12/2018/ [id number] Ambulatory [address] Repository 11/12/2018/ [id number] Ambulatory [address] Repository 11/12/2018 [id number] Ambulatory VARON [facility] MEDICAL Repository CENTERBuildi ng:URAG 11/08/2018/ [id number] Emergency [place] 019 [facility] ding:ED Repository 11/07/2018/ [id number] Ambulatory BMSBuilding: [place] 019 [facility] Repository 11/05/2018/ [id number] Emergency [place] [address] [place] [address] ding:ED Repository 11/04/2018/ [id number] Ambulatory [address] Repository 10/31/2018 [id number] Ambulatory Buildin[address] [place] [address] CDURoom: System CDUBed: Repository [id number] 10/28/2018/ [id number] Unknown Emergency [facility] 0[facility] u[facility] 59Room: BV System ED 05Bed: BV Repository ED 05 10/28/2018/ [id number] Ambulatory 9531Building [facility] 019 :PMERRoom: Medical Center ASHV4Xtr: Repository PMER22 10/28/2018 [id number] Unknown Ambulatory [facility] Repository 10/28/2018 [id number] Unknown Ambulatory [facility] Repository 10/27/2018/ [id number] Emergency [address] ding:ED Repository 10/23/2018/ [id number] Emergency [address] ding:ED Repository 10/23/2018/ [id number] Ambulatory BBuilding:RA [facility] 0[facility] Repository 10/22/2018 [id number] [facility] MEDICAL Repository [place]IVER[place]uild[place] ng:URAG 10/10/2018 [id number] Ambulatory Building:[facility] Repository 10/09/2018/ [id number] Ambulatory BBuilding:RA Izzy [facility] 018 [address] [facility] Repository 10/01/2018/ [id number] Emergency ABuilding:ER [facility] 018 [facility] Repository 09/24/2018/ [id number] Emergency [place] 018 [facility] Other [place] Repository 09/24/2018/ [id number] Emergency [address] MEDICAL Repository [place] RIVERABuildi ng:AKEDBRoom : EDBed: 09/22/2018/ [id number] Emergency [place] 018 [facility] Other [place] Repository 09/22/2018/ [id number] Emergency [address] MEDICAL Repository [place] RIVERABuildi ng:AKEDBRoom : EDBed: 09/18/2018/ [id number] Ambulatory [place] 018 [facility] [place] Repository 09/16/2018/ [id number] Emergency [place] 018 [facility] Other [place] Repository 09/01/2018/ [id number] Emergency BBuilding:ER Izzy [facility] 018 O [facility] Repository 08/31/2018/ [id number] Emergency [address] ding:ED Repository 08/28/2018/ [id number] Emergency BBuilding:ER [place] [facility] 018 O [facility] Repository 08/28/2018/ [id number] Ambulatory [place] 018 [facility] [place] Repository 08/22/2018/ [id number] Ambulatory IZZY [place] 018 [facility] ding:DROP Repository 08/15/2018 [id number] Ambulatory BuildinA [facility] 2ERoom: System 0S852Iml: Repository [id number] 08/15/2018 [id number] Ambulatory BuildinB [facility] EDRoom: System 9A416Ogu: Repository [id number] 08/15/2018/ [id number] Emergency BBuilding:ER [facility] 018 O [facility] Repository 08/11/2018/ [id number] Emergency [address] Other [place] Repository 08/10/2018/ [id number] Emergency [address] Repository 08/09/2018/ [id number] Emergency BBuilding:ER [facility] 018 O [facility] Repository 08/04/2018/ [id number] Emergency [address] Other [place] Repository 08/02/2018/ [id number] Emergency BBuilding:ER Izzy [facility] 018 O [facility] Repository 07/28/2018/ [id number] Ambulatory [address] [place] Repository 07/21/2018/ [id number] Emergency BBuilding:ER Izzy [facility] 018 O [facility] Repository 07/18/2018/ [id number] Emergency BBuilding:ER [facility] 018 O [facility] Repository 07/18/2018/ [id number] Emergency [place] 018 [facility] ding:ED Repository 07/15/2018/ [id number] KARAN CONNOR, Inpatient ABuilding:CC [facility] Tiffany RODRICK W Encounter URoom: [facility] 0349Bed: A Repository 07/14/2018/ [id number] KARAN CONNOR, Ambulatory BBuilding:MS [facility] Allen RODRICK W URRoom: [facility] 0236Bed: A Repository 07/14/2018 [id number] Ambulatory BMSBuilding: [place] [facility] Repository 07/12/2018/ [id number] Emergency [place] ding:ED Repository 07/10/2018 [id number] CHRIS, Ambulatory VAARI [facility] MEDICAL Repository CENTERBuildi ng:AKSUR 07/10/2018/ [id number] CHRIS, Inpatient [address] MEDICAL Repository CENTERBuildi ng:AKORRoom: POOLBed: 30 07/10/2018/ [id number] CHRIS, Ambulatory [address] Repository 07/09/2018 [id number] [facility] MEDICAL Repository CENTERBuildi ng:AKPATB 07/08/2018/ [id number] Emergency [address] ding:ED Repository 07/08/2018 [id number] Ambulatory [facility] ding:PT Repository 07/07/2018 [id number] Ambulatory [facility] ding:HPRAD Repository 07/07/2018/ [id number] Ambulatory BMSBuilding: [place] 018 BMS.[facility] Repository 07/03/2018 [id number] [facility] MEDICAL Repository CENTERBuildi ng:AKPAG 07/01/2018/ [id number] Emergency [address] ding:ED Repository 06/27/2018/ [id number] Ambulatory BMSBuilding: [place] 018 [facility] Repository 06/21/2018 [id number] Emergency [address]in[address] [place] [address] EGRoom: System [id number]: Repository [id number] 06/17/2018/ [id number] Emergency [address] ding:ED Repository 06/17/2018 [id number] Ambulatory BMSBuilding: [place] BMS.[facility] Repository 06/15/2018/ [id number] Emergency [address] Repository 06/01/2018/ [id number] THUESTAD, Inpatient [place] 018 MARIAH RIVERA) Encounter [facility] Repository 05/30/2018/ [id number] Ambulatory BMSBuilding: [place] 018 BMS.[facility] Repository 05/29/2018/ [id number] Emergency [place] 018 [facility] ding:ED Repository 05/27/2018/ [id number] Emergency [place] 018 [facility] Repository 05/23/2018 [id number] Ambulatory BMSBuilding: [place] BMS.[facility] Repository 05/22/2018 [id number] ISAIAH ANDRWE Ambulatory Building:[facility] Repository 05/21/2018/ [id number] Emergency [place] 018 [facility] Repository 05/20/2018/ [id number] Emergency [place] 018 [facility] ding:ED Repository 05/20/2018/ [id number] Ambulatory BMSBuilding: [place] 018 BMS.[facility] Repository 05/16/2018/ [id number] Agyepong, Inpatient [place] 018 [place] Encounter [facility] ding:PCURoom Repository : UAN949Lfk: 1 05/16/2018 [id number] Agyepong, Ambulatory BMSBuilding: [place] BMS.[facility] Repository 05/16/2018 [id number] Agyepong, Ambulatory BMSBuilding: [place] BMS.[facility] Repository 05/16/2018 [id number] Agyepong, Ambulatory BMSBuilding: [place] BMS..[facility] Repository 05/16/2018 [id number] Agyepong, Ambulatory BMSBuilding: [place] BMS.[facility] Repository 05/16/2018 [id number] Agyepong, Ambulatory BMSBuilding: [place]den BMS.CF.[facility] Repository 05/16/2018/ [id number] Ambulatory BMSBuilding: [place] 018 [facility] Repository 05/15/2018 [id number] Agyepong, Ambulatory BMSBuilding: [place] Jayden BMS.WIP [facility] Repository 05/15/2018 [id number] Agyepong, Ambulatory BMSBuilding: [place] BMS.CF.WHG [facility] Repository 05/15/2018/ [id number] Ambulatory BMSBuilding: [place] 018 BMS.SMO [facility] Repository 05/15/2018/ [id number] Ambulatory BMSBuilding: [place] 018 [facility] Repository 05/14/2018/ [id number] Ambulatory [address] Repository 05/14/2018/ [id number] Ambulatory [address] MEDICAL Repository CENTERBuildi ng:URGR 05/13/2018/ [id number] Emergency [address] Repository 05/07/2018/ [id number] Emergency [place] 018 [facility] ding:ED Repository 05/06/2018/ [id number] Ambulatory [address] Repository 05/01/2018/ [id number] CHRIS Inpatient [facility] Tiffany Tenorio [facility] MEDICAL Repository [place] RIVERABuildi ng:AKORRoom: POOLBed: 15 05/01/2018/ [id number] CHRIS, Ambulatory [address] Repository 04/28/2018 [id number] Ambulatory [facility] Repository 04/28/2018/ [id number] Ambulatory VARON [address] MEDICAL Repository CENTERBuildi ng:AKLBB 04/28/2018/ [id number] Ambulatory BMSBuilding: [place] 018 [facility] Repository 04/22/2018/ [id number] Ambulatory BMSBuilding: [place] 018 [facility] Repository 04/18/2018/ [id number] Ambulatory [address] Repository 04/17/2018 [id number] [facility] MEDICAL Repository CENTERBuildi ng:AGVASACC 04/16/2018/ [id number] Emergency [place] ding:ED Repository 04/16/2018/ [id number] Ambulatory [address] [place] Repository 04/16/2018/ [id number] Ambulatory ARPIT Brenner [address] MEDICAL Repository CENTERBuildi ng:AGVASACC 04/15/2018 [id number] Ambulatory [facility] ding:PSN Repository 04/13/2018/ [id number] Ambulatory [address] Repository 04/11/2018 [id number] Ambulatory [facility] ding:CVS Repository 04/11/2018 [id number] Ambulatory BMSBuilding: [facility] Repository 04/09/2018/ [id number] Ambulatory BMSBuilding: [place] 018 [facility] Repository 04/08/2018/ [id number] [facility], Ambulatory [place] ding:PCURoom Repository : TQI883Lbg: 1 04/08/2018 [id number] [facility], Ambulatory BMSBuilding: [place] [facility] BMS.[facility] Repository 04/07/2018 [id number] Ambulatory [facility] ding:CLSP Repository 04/07/2018 [id number] Ambulatory BMSBuilding: [facility] Repository 04/07/2018 [id number] Ambulatory BMSBuilding: [place] BMS.CF.[facility] Repository 04/02/2018/ [id number] Emergency [place] ding:ED Repository 04/01/2018/ [id number] Emergency [place] ding:ED Repository 04/01/2018/ [id number] Ambulatory BMSBuilding: [place] 018 BMS.[facility] Repository 03/25/2018 [id number] Ambulatory [facility] Repository 03/25/2018/06/05 [id number] Ambulatory [address] MEDICAL Repository CENTERBuildi ng:AKLB 03/25/2018/ [id number] Ambulatory [address] Repository 03/25/2018/ [id number] Ambulatory [address] MEDICAL Repository CENTERBuildi ng:AKUF 03/21/2018/ [id number] Emergency [place] 018 [facility] ding:ED Repository 03/20/2018 [id number] Ambulatory BMSBuilding: [place] BMS.[facility] Repository 03/20/2018/ [id number] White, Ambulatory [place] 018 [facility] ding:PCURoom Repository : YJX665Kvi: 1 03/20/2018 [id number] White, Ambulatory BMSBuilding: [place] Kandi BMS.[facility] Repository 03/20/2018/ [id number] Ambulatory BMSBuilding: [place] 018 [facility] Repository 03/20/2018/ [id number] Ambulatory BMSBuilding: [place] 018 [facility] Repository 03/18/2018 [id number] Ambulatory BMSBuilding: [place] BMS.[facility] Repository 03/18/2018 [id number] [facility] MEDICAL Repository CENTERBuildi ng:URGR 03/07/2018/ [id number] Emergency [place] 018 [facility] ding:ED Repository 02/26/2018/ [id number] Ambulatory BMSBuilding: [place] 018 BMS.[facility] Repository 02/25/2018 [id number] Ambulatory BMSBuilding: [place] BMS.[facility] Repository 02/24/2018/ [id number] Emergency [place] 018 [facility] ding:ED Repository 02/21/2018/ [id number] Ambulatory BMSBuilding: [place] 018 [facility] Repository 02/20/2018/ [id number] Emergency [place] 018 [facility] ding:ED Repository 02/18/2018/ [id number] Ambulatory BMSBuilding: [place] 018 BMS.[facility] Repository 02/18/2018 [id number] Ambulatory BMSBuilding: [place] [facility]MS.[facility] Repository 02/17/2018/ [id number] Emergency [place] 018 [facility] ding:ED Repository 02/16/2018/ [id number] Emergency [place] 018 [facility] ding:ED Repository 02/13/2018/ [id number] Ambulatory BMSBuilding: [place] 018 BMS.[facility] Repository 02/05/2018/ [id number] Ambulatory [place] 018 [facility] ding:PT Repository 01/28/2018 [id number] Ambulatory BMSBuilding: [place] BMS.[facility] Repository 01/21/2018 [id number] Ambulatory Building:[facility] Repository 01/20/2018 [id number] Ambulatory [place] [facility] ding:NM Repository 01/14/2018/ [id number] Ambulatory BMSBuilding: [place] 018 BMS.[facility] Repository 01/14/2018/ [id number] Ambulatory BMSBuilding: [place] 018 BMS.[facility] Repository 01/10/2018/ [id number] Emergency [place] 018 [facility] ding:ED Repository 01/03/2018 [id number] Ambulatory [place] [facility] ding:MRI Repository 12/19/2017 [id number] [facility] Repository 12/19/2017/ [id number] Ambulatory BMSBuilding: [place] 018 BMS.[facility] Repository 12/16/2017/ [id number] Emergency [place] [address] [place] [address] ding:ED Repository 12/06/2017 [id number] Ambulatory BMSBuilding: [place] BMS.[facility] Repository 12/02/2017 [id number] Ambulatory [place] [facility] ding:LABSPEC Repository 11/30/2017/ [id number] Emergency [place] 018 [facility] ding:ED Repository 11/11/2017/ [id number] Ambulatory BMSBuilding: [place] 018 BMS.[facility] Repository PAYERS PAYERS ENCOUNTER GUARANTOR PAYER SUBSCRIBER SOURCE 11/15/2018 ATTILA Abreu [facility] MISCHLERDOB: Insurance:MEDICARE A MISCHLERDOB: [place] AND BPolicy Number: [id number] [facility] [id number] [address] [place], [place] Date:7751-23-43[place], [place] Repository [address]Oxp: 330) Name:CARE [id number]: () [phone] () 11/12/2018 ATTILA Abreu [facility] MISCHLERDOB: Insurance:MEDICARE MISCHLERDOB: [facility] PART B INSCOPolicy [id number] Repository [place] Number: [address] [place], [place] [id number] [place] [address]~SMLHBP12@ Date:2018-11-12 24464Ljw: (400) SYMONEmelchor: (794) [id number] [phone] () Name:[facility] ()Tel: (133) [id number] LLCUJ [phone] () [address] [place] [address] 10457FU: 11/12/2018 ATTILA Brenner [facility] MISCHLERDOB: Insurance:MEDICARE A MISCHLERDOB: Health System AND BPolicy Number: [id number] Repository [place] [id number] [place], [place] Date: [address]Vgl: () 11/08/2018 ATTILA AGUIAR Primary ATTILA Carranza [id number] ARCEO Insurance:MEDICARE MISCHLERDOB: Community [place] PART A [facility] [id number], [place] Number: Repository [address]Mgt: 330 [id number] [phone] () Date:2018-11-08 11/08/2018 Secondary NOT GIVENUNK [place] Insurance:SELF PAY [facility] Number: Effective Repository Date:2018-11-08 11/07/2018 ATTILA AGUIAR Primary ATTILA Carranza [id number] ARCEO Insurance:MEDICARE MISCHLERDOB: [facility] PART A [facility] [id number], [place] Number: Repository [id number]: 330 [id number] [phone] () Date:2018-10-30 11/07/2018 Secondary NOT GIVENUNK [place] Insurance:SELF PAY [facility] Number: Effective Repository Date:2018-11-06 11/05/2018 ATTILA Abreu Primary ATTILA Abreu [place] [id number] ARCEO Insurance:MEDICARE MISCHLERDOB: [facility] PART A [facility] [id number], [place] Number: Repository [address]Yzu: 330 [id number] [phone] () Date:2018-11-05 11/05/2018 Secondary NOT GIVENUNK [place] Insurance:SELF PAY [facility] Number: Effective Repository Date:2018-11-05 10/31/2018 Attila Abreu Primary Attila [facility]breu [facility] MischlerDOB: Insurance:MedicarePol MischlerDOB: System [id number] icy Number: Effective [id number] Repository [place] Date:2017-02-18 [place], [place] [address]Ozk: () 10/31/2018 Secondary [facility] Insurance:MedicarePol MischlerDOB: System icy Number: Effective [id number] Repository Date:2017-02-18 10/28/2018 ATTILA Abreu [facility] MISCHLERDOB: Insurance:MEDICARE MISCHLERDOB: System PART APolicy Number: [id number] Repository [place] [id number] [address] [place], [place] Date:2017-02-18 [place], [place] [address]Dep: [phone]: (HP)Tel: [phone] (HP) (WP) 10/28/2018 ATTILA HANEY [facility] MISCHLERDOB: [facility] MISCHLERDOB: Center icy Number: [id number] Repository [place] JONAS, [id number] 3 [place] [id number]: Date:Plan Name:Cody PRITESH [place] [id number]: (ED) (HP) 10/28/2018 ATTILA Abreu [facility] MISCHLERDOB: Insurance:MEDICARE MISCHLERDOB: System PART APolicy Number: [id number] Repository [place] [id number] [address] [place], [place] Date:2017-02-18 [place], [place] [address]Cas: [phone]: (HP)Tel: [phone] (HP) (WP) 10/28/2018 ATTILA Abreu [facility] MISCHLERDOB: Insurance:MEDICARE MISCHLERDOB: System PART APolicy Number: [id number] Repository [place] [id number] [address] [place], [place] Date:2017-02-18 [place], [place] [address]Mfh: [phone]: (HP)Tel: [phone] (HP) (WP) 10/27/2018 ATTILA KIRBYMELCHOR Abreu [place] [id number] ARCEO Insurance:MEDICARE MISCHLERDOB: Community [place] PART A [facility] [id number], [place] Number: Repository [id number]: 330 [id number] [phone] () Date:2018-10-27 10/27/2018 Secondary NOT GIVENUNK [place] Insurance:SELF PAY [facility] Number: Effective Repository Date:2018-10-27 10/23/2018 ATTILA K Primary ATTILA K [place] [id number] ARCEO Insurance:MEDICARE MISCHLERDOB: [facility] PART A [facility] [id number], [place] Number: Repository [phone]: 330 [id number] [phone] () Date:2018-10-23 10/23/2018 Secondary NOT GIVENUNK [place] Insurance:SELF PAY [facility] Number: Effective Repository Date:2018-10-23 10/23/2018 ATTILA Abreu [facility] MISCHLERDOB: Insurance:MEDICARE MISCHLERDOB: [facility] PART B INSCOPolicy [id number] Repository [place] Number: [address] [place], [place] [id number] [place] [address]~FPMLJW36@ Date:2018-10-23 84171Jrs: 330 Jose Manuel: [phone] [id number] [phone] (HP) Name:[facility] ()Tel: ([phone]) Administrators LLCFF [phone] () [address] [place] [address] 19174AW: 10/22/2018 ATTILA Abreu [facility] MISCHLERDOB: Insurance:MEDICARE A MISCHLERDOB: [facility] System AND BPolicy Number: [id number] Repository [place] [id number] [place], [place] Date: [address]Txo: () 10/10/2018 ATTILA Abreu [facility] MISCHLERDOB: Insurance:MEDICARE A MISCHLERDOB: [place] AND BPolicy Number: [id number] [facility] [id number] [address] [place], [place] Date:6523-64-56Sqbn [place] Repository [address]Eis: (330) Name:CARE [address]Xyx: (HP) [phone] (HP) 10/09/2018 ATTILA Abreu Primary ATTILA Abreu [facility] MISCHLERDOB: Insurance:MEDICARE MISCHLERDOB: [facility] [id number] Repository [place] Number: [address] [place], [place] [id number] [place] [address]~VEDIJI14@ Date:2018-10-09Tel: (330) SYMONEel: [phone] [id number] [phone] (HP) Name:[facility] ()Tel: (000) Administrators LLCPO 000-0000 (WP) [address] [place] [address] 66960RS: 10/01/2018 [facility]: Insurance:MEDICARE MISCHLERDOB: [facility] [id number] Repository [place] Number: [address] [place], [place] [id number] [place], [place] [address]Dkq: (330) Date:2018-10-01Tel: () [id number] [phone] Name:[facility] ()Tel: (000) Administrators LLCPO 000-0000 (WP) [address] [place] [address] 33753CY: 09/24/2018 ATTILA Abreu [facility] MISCHLERDOB: Insurance:MEDICARE A MISCHLERDOB: Health System AND BPolicy Number: [id number] Repository [place] [id number] [place], [place] Date: [address]Jmq: (HP) 09/22/2018 ATTILA Abreu [facility] MISCHLERDOB: Insurance:MEDICARE A MISCHLERDOB: Health System AND BPolicy Number: [id number] Repository [place] [id number] [place], [place] Date: [address]Mqa: (HP) 09/01/2018 ATTILA Abreu [facility] MISCHLERDOB: Insurance:MEDICARE MISCHLERDOB: [facility] PART BPolicy Number: [id number] Repository [place] [id number] [address] [place], [place] Date:2018-09-01 - [place], [place] [address]Psz: [phone] [id number] [phone]: (HP) Name:[facility] 46[facility] [facility]72 Administrators LLCPO ()Tel: (760) Par [address], [phone] () [place] [address]BJ: 08/31/2018 ATTILA Carranza [id number] [place] Insurance:MEDICARE MISCHLERDOB: [facility] PART A BPolicy [id number] [place] Number: Repository [address]Xme: [phone]) [id number] [phone] (HP) Date:2018-08-31 08/31/2018 Secondary NOT GIVENUNK [place] Insurance:SELF PAY [facility] Number: Effective Repository Date:2018-08-31 08/28/2018 [facility] MISCHLERDOB: [facility] PART BPolicy Number: [id number] Repository [facility] [id number] [address] [place], [place] Date:2018-08-28 - [place], [place] [address]Ogf: [phone] [id number] 733[address]Nzr: (HP) Name:[place] [id number] Administrators LLCPO (HP)Tel: (000) [address] [address]Trbwxintu, 000-0000 (WP) [place] [address]DK: 08/22/2018 ATTILA Abreu Primary ATTILA Abreu [facility] MISCHLERDOB: Insurance:MEDICARE MISCHLERDOB: [facility] PART BPolicy Number: [id number] Repository [place] [id number] [address] [place], [place] Date:2018-08-22 - [place], [place] [address]Acc: [phone] [id number] [phone]: (HP) Name:[facility] [phone] Administrators LLCPO (HP)Tel: (000) [address]Loolmmiep, 000-0000 (WP) [place] [address]KX: 08/15/2018 Attila Abreu Primary Attila Abreu [facility] MischlerDOB: Insurance:MedicarePol MischlerDOB: System icy Number: Effective [id number] Repository [place] Date:2017-02-18 [place], [place] [address]Jip: (HP) 08/15/2018 Secondary Attila Abreu [facility] Insurance:MedicarePol MischlerDOB: System icy Number: Effective [id number] Repository Date:2017-02-18 08/15/2018 Attila Abreu Primary Attila Lois [facility] MischlerDOB: Insurance:MedicarePol MischlerDOB: System icy Number: Effective [id number] Repository [place] Date:2017-02-18 [place], [place] [address]Xlj: (HP) 08/15/2018 Secondary [facility] Insurance:MedicarePol MischlerDOB: System icy Number: Effective [id number] Repository Date:2017-02-18 08/15/2018 [facility] Insurance:MEDICARE MISCHLERDOB: [facility] PART BPolicy Number: [id number] Repository [place] [id number] 2 [facility], [place] Date:2018-08-15 - [place], [place] [address]Yzz: [phone]) [id number] [phone]: (HP) Name:[facility] [phone] Administrators LLCPO (HP)Tel: (000) [address] [address]Njpuytgfd, 000-0000 (WP) [place] [address]QF: 08/09/2018 [facility]A [facility]breu [facility]: Insurance:MEDICARE MISASHT[facility]UL[facility]ENTERERDOB: [facility] PART BPolicy Number: [id number] Repository [place] [id number] 2 [facility], [place] Date:2018-08-09 - [place], [place] [address]Yoq: [phone]) [id number] 722[address]Rbq: (HP) Name:[facility] [phone] Administrators LLCPO (HP)Tel: (000) [address] [address]Ywxlxifns, 000-0000 (WP) [place] [address]WY: 08/02/2018 ATTILA [facility]Former[facility]: Insurance:MEDICARE MISCHLERDOB: [facility] PART BPolicy Number: [id number] Repository [place] [id number] 2 [facility], [place] Date:2018-08-02 - [place], [place] [address]Kog: [phone]) [id number] [address]Hty: (HP) Name:[facility] [phone] Administrators LLCPO (HP)Tel: (000) [address] [address]Xpoeitfnx, 000-0000 (WP) [place] [address]XO: 07/21/2018 [facility]A [facility] MISCHLERDOB: Insurance:MEDICARE MISCHLERDOB: [facility] PART BPolicy Number: [id number] Repository [place] [id number] [address] [place], [place] Date:2018-07-21 - [place], [place] [address]Nev: 330 [id number] 749[address]Zbn: (HP) Name:[facility] [phone] Administrators LLCPO (HP)Tel: (000) [address] [address]Dqdrdywly, 000-0000 (WP) [place] [address]GP: 07/18/2018 [facility]AMELCHOR [facility] Insurance:MEDICARE MISASHT[facility]ENTERERDOB: [facility] PART BPolicy Number: [id number] Repository [place] [id number] [address] [place], [place] Date:2018-07-18 - [place], [place] [address]Kzx: (330 [id number] 27[address]Snb: (HP) Name:[facility] [phone] Administrators LLCPO (HP)Tel: (000) [address] [address]Uxouhrnrz, 000-0000 (WP) [place] [address]OK: 07/18/2018 ATTILA Blairoster [facility] Insurance:MEDICARE MISCHLERDOB: [place] PART A BPolicy [id number] [facility] [address]Ros: (330) Number: Repository [phone] () [id number] Date:2018-07-18 07/18/2018 Secondary NOT GIVENUNK [place] Insurance:SELF PAY [facility] Number: Effective Repository Date:2018-07-18 07/15/2018 ATTILAMELCHOR [facility] AntonioERDOB: Insurance:MEDICARE MISASHT[facility]ENTERERDOB: [facility] PART APolicy Number: [id number] Repository [place] [id number] [address] [place], [place] Date:2018-07-15 - [place], [place] [address]Htf: (330 [id number] [address]Nki: (HP) Name:[facility] Code [phone] [address] (HP)Tel: ([phone], [place] 000-0000 ([place]) [address]VX: 07/15/2018 Secondary [facility] Insurance:MEDICARE MISCHLERDOB: [facility] PART BPolicy Number: [id number] Repository [id number] 2 [place] Date:2018-07-15 - [place] 5595-08-12Xikq [address]Isv: (330) Name:[facility] [phone] Administrators LLCPO (HP)Tel: (000) Box , 000-0000 (WP) [place] [address]XJ: 07/14/2018 ATTILA Oglesby [facility] MISCHLERDOB: Insurance:MEDICARE MISCHLERDOB: [facility] PART BPolicy Number: [id number] Repository [place] [id number] [address] [place] [address] Date:2018-07-14 - [place], [place] [address]Qnm: 330 [id number] [address]Iro: (HP) Name:[facility] [phone] Administrators LLCPO (HP)Tel: (000) [address] [address]Wszvmwupu, 000-0000 (WP) [place] [address]QR: 07/14/2018 ATTILA Abreu Primary ATTILA Bliaroster [id number] Insurance:MEDICARE MISCHLERDOB: Community NDIAYE PRIT[place], PART A BPolicy [id number] Valley Hospital [address]Nuc: Number: Repository [id number] () Date:2018-07-14 07/14/2018 Secondary NOT GIVENUNK [place] Insurance:SELF PAY [facility] Number: Effective Repository Date:2018-07-14 07/12/2018 ATTILA Abreu Primary ATTILA Abreu [place] [id number] Insurance:MEDICARE MISCHLERDOB: Community NDIAYE [place], PART A BPolicy [id number] [place] [address]Tfm: Number: Repository [id number] () Date:2018-07-12 07/12/2018 Secondary NOT GIVENUNK [place] Insurance:SELF PAY [facility] Number: Effective Repository Date:2018-07-12 07/10/2018 ATTILA Abreu Primary ATTILAMELCHOR [facility] MISCHLERDOB: Insurance:MEDICARE A MISCHLERDOB: Health System AND BPolicy Number: [id number] Repository NIKOLAS JONAS, [id number] [place] [address]Bsr: Date: () 07/10/2018 ATTILA Abreu Primary ATTILAMELCHOR [facility] MISCHLERDOB: Insurance:MEDICARE A MISCHLERDOB: [facility] AND BPolicy Number: [id number] Repository NIKOLAS JONAS, [id number] [place] [address]Dfc: Date: () 07/09/2018 ATTILA Abreu Primary ATTILAMELCHOR [facility] MISCHLERDOB: Insurance:MEDICARE A MISCHLERDOB: [facility] System AND BPolicy Number: [id number] Repository NIKOLAS JONAS, [id number] [place] [address]Loz: Date: () 07/08/2018 ATTILA Abreu Primary ATTILA K [place] [id number] Insurance:MEDICARE MISCHLERDOB: Community NDIAYE [place], PART A BPolicy [id number] [place] [address]Xpl: Number: Repository [id number] () Date:2018-07-08 07/08/2018 Secondary NOT GIVENUNK [place] Insurance:SELF PAY [facility] Number: Effective Repository Date:2018-07-08 07/08/2018 ATTILA Abreu Primary ATTILA K [place] [id number] Insurance:MEDICARE MISCHLERDOB: Community NDIAYE [place], PART A [facility] [id number] Valley Hospital [address]Ycp: Number: Repository [id number] () Date:2017-02-18 07/08/2018 Secondary NOT GIVENUNK [place] Insurance:SELF PAY [facility] Number: Effective Repository Date:2018-07-07 07/07/2018 ATTILA K Primary ATTILA Blairoster [id number] Insurance:MEDICARE MISCHLERDOB: Community NDIAYE [place], PART A [facility] [id number] Valley Hospital [address]Dsh: Number: Repository [id number] () Date:2018-07-07 07/07/2018 Secondary NOT GIVENUNK [place] Insurance:SELF PAY [facility] Number: Effective Repository Date:2018-07-07 07/07/2018 ATTILA K Primary ATTILA [place] [id number] Insurance:MEDICARE MISCHLERDOB: Community NDIAYE [place], PART A [facility] [id number] Valley Hospital [address]Qjz: Number: Repository [id number] () Date:2018-07-01 07/07/2018 Secondary NOT GIVENUNK [place] Insurance:SELF PAY [facility] Number: Effective Repository Date:2018-07-07 07/03/2018 ATTILA K Primary ATTILA Abreu [facility] MISCHLERDOB: Insurance:MEDICARE A MISASHT[facility]ENTERERDOB: [facility] AND [facility] Number: [id number] Repository NIKOLAS JONAS, [id number] [place] [address]Ctq: Date: () 07/01/2018 ATTILA K Primary ATTILA [place] [id number] Insurance:MEDICARE MISCHLERDOB: Community NDIAYE [place], PART A [facility] [id number] Valley Hospital [address]Thv: Number: Repository [id number] () Date:2018-07-01 07/01/2018 Secondary NOT GIVENUNK [place] Insurance:SELF PAY [facility] Number: Effective Repository Date:2018-07-01 06/27/2018 ATTILA Abreu Primary ATTILA Carranza [id number] Insurance:MEDICARE MISCHLERDOB: Community NDIAYE DRW[place], PART A [facility] [id number] Valley Hospital [address]Plj: Number: Repository [id number] (HP) Date:2018-06-26 06/27/2018 Secondary NOT GIVENUNK [place] Insurance:SELF PAY [facility] Number: Effective Repository Date:2018-06-27 06/21/2018 Attila Abreu Primary [facility] MischlerDOB: Insurance:MedicarePol MischlerDOB: System [id number] icy Number: Effective [id number] Repository [facility], Date:2017-02-18 [place] [address]Gxr: () 06/21/2018 Secondary At[facility]a [facility] Insurance:MedicarePol MischlerDOB: System icy Number: Effective [id number] Repository Date:2017-02-18 06/17/2018 ATTILA Abreu Primary ATTILA [place] [id number] Insurance:MEDICARE MISCHLERDOB: Community NDIAYE DRW[place], PART A [facility] [id number] Valley Hospital [address]Otr: Number: Repository [id number] (HP) Date:2018-06-17 06/17/2018 Secondary NOT GIVENUNK [place] Insurance:SELF PAY [facility] Number: Effective Repository Date:2018-06-17 06/17/2018 ATTILA Abreu Primary ATTILA Abreu [place] [id number] Insurance:MEDICARE MISCHLERDOB: Community NDIAYE DRWESTEPHANIASTER, PART A [facility] [id number] Valley Hospital [address]Ysy: Number: Repository [id number] (HP) Date:2018-05-20 06/17/2018 Secondary NOT GIVENUNK [place] Insurance:SELF PAY [facility] Number: Effective Repository Date:2018-05-20 05/30/2018 ATTILA Carranza [id number] Insurance:MEDICARE MISCHLERDOB: Community NDIAYE [place], PART A [facility] [id number] Valley Hospital [address]Nre: Number: Repository [id number] () Date:2018-05-30 05/30/2018 Secondary NOT GIVENUNK [place] Insurance:SELF PAY [facility] Number: Effective Repository Date:2018-05-30 05/29/2018 ATTILA Carranza [id number] Insurance:MEDICARE MISCHLERDOB: Community NDIAYE [place], PART A [facility] [id number] Valley Hospital [address]Buz: Number: Repository [id number] () Date:2018-05-29 05/29/2018 Secondary NOT GIVENUNK [place] Insurance:SELF PAY [facility] Number: Effective Repository Date:2018-05-29 05/23/2018 ATTILA K Primary ATTILA Carranza [id number] Insurance:MEDICARE MISCHLERDOB: Community NDIAYE [place], PART A [facility] [id number] Valley Hospital [address]Qnf: Number: Repository [id number] () Date:2018-04-28 05/23/2018 Secondary NOT GIVENUNK [place] Insurance:SELF PAY [facility] Number: Effective Repository Date:2018-04-28 05/22/2018 ATTILAMELCHOR Abreu [facility] MISCHLERDOB: Insurance:MEDICARE A MISCHLERDOB: [place] [id number] AND [facility] Number: [id number] [facility] [id number] [address] [place], [place] Date:2274-81-67Mzle [place] Repository [address]Jeq: (330) Name:CARE 20[address]Vng: (HP) [phone] (HP) 05/20/2018 ATTILA K Primary ATTILA Carranza [id number] Insurance:MEDICARE MISCHLERDOB: Community NDIAYE DRWESTEPHANIASTER, PART A [facility] [id number] Valley Hospital [address]Qna: Number: Repository [id number] () Date:2018-05-20 05/20/2018 Secondary NOT GIVENUNK [place] Insurance:SELF PAY [facility] Number: Effective Repository Date:2018-05-20 05/20/2018 ATTILA Abreu Primary ATTILA Abreu [place] [id number] Insurance:MEDICARE MISCHLERDOB: Community NDIAYE DRWESTEPHANIASTER, PART A [facility] [id number] Valley Hospital [address]Jku: Number: Repository [id number] (HP) Date:2018-04-22 05/20/2018 Secondary NOT GIVENUNK [place] Insurance:SELF PAY [facility] Number: Effective Repository Date:2018-05-19 05/16/2018 ATTILA K Primary ATTILA Abreu [place] [id number] Insurance:MEDICARE MISCHLERDOB: Community NDIAYE DRWESTEPHANIASTER, PART A [facility] [id number] Valley Hospital [address]Fzu: Number: Repository [id number] () Date:2018-05-15 05/16/2018 Secondary NOT GIVENUNK [place] Insurance:SELF PAY [facility] Number: Effective Repository Date:2018-05-15 05/16/2018 ATTILA Abreu Primary ATTILA Abreu [place] [id number] Insurance:MEDICARE MISCHLERDOB: Community NDIAYE [place], PART A [facility] [id number] Valley Hospital [address]Qms: Number: Repository [id number] (HP) Date:2018-05-15 05/16/2018 Secondary NOT GIVENUNK [place] Insurance:SELF PAY [facility] Number: Effective Repository Date:2018-05-16 05/16/2018 ATTILA Abreu [place] [id number] Insurance:MEDICARE MISCHLERDOB: Community NDIAYE DRWESTEPHANIASTER, PART A [facility] [id number] Valley Hospital [address]Sac: Number: Repository [id number] (HP) Date:2018-05-15 05/16/2018 Secondary NOT GIVENUNK [place] Insurance:SELF PAY [facility] Number: Effective Repository Date:2018-05-16 05/16/2018 ATTILA Carranza [id number] Insurance:MEDICARE MISCHLERDOB: Community ND[place]YE [place], PART A [facility] [id number] Hospital [place] [address]Cas: Number: Repository [id number] (HP) Date:2018-05-15 05/16/2018 Secondary NOT GIVENUNK [place] Insurance:SELF PAY [facility] Number: Effective Repository Date:2018-05-16 05/16/2018 ATTILA Carranza [id number] Insurance:MEDICARE MISCHLERDOB: Community NDIAYE [place], PART A [facility] [id number] Valley Hospital [address]Zww: Number: Repository [id number] (HP) Date:2018-05-15 05/16/2018 Secondary NOT GIVENUNK [place] Insurance:SELF PAY [facility] Number: Effective Repository Date:2018-05-16 05/16/2018 ATTILA Carranza [id number] Insurance:MEDICARE MISCHLERDOB: Community NDIAYE [place], PART A [facility] [id number] Valley Hospital [address]Bzo: Number: Repository [id number] (HP) Date:2018-05-15 05/16/2018 Secondary NOT GIVENUNK [place] Insurance:SELF PAY [facility] Number: Effective Repository Date:2018-05-16 05/16/2018 ATTILA Carranza [id number] Insurance:MEDICARE MISCHLERDOB: Community NDIAYE [place], PART A [facility] [id number] [place] [address]Ukx: Number: Repository [id number] (HP) Date:2018-05-15 05/16/2018 Secondary NOT GIVENUNK [place] Insurance:SELF PAY [facility] Number: Effective Repository Date:2018-05-16 05/15/2018 ATTILA Abreu Primary ATTILA Carranza [id number] Insurance:MEDICARE MISCHLERDOB: Community NDIAYE [place], PART A [facility] [id number] Valley Hospital [address]Gek: Number: Repository [id number] (HP) Date:2018-05-15 05/15/2018 Secondary NOT GIVENUNK [place] Insurance:SELF PAY [facility] Number: Effective Repository Date:2018-05-15 05/15/2018 ATTILA Abreu Primary ATTILA Carranza [id number] Insurance:MEDICARE MISCHLERDOB: Community NDIAYE [place], PART A [facility] [id number] Valley Hospital [address]Xah: Number: Repository [id number] (HP) Date:2018-05-15 05/15/2018 Secondary NOT GIVENUNK [place] Insurance:SELF PAY [facility] Number: Effective Repository Date:2018-05-15 05/15/2018 ATTILA K Primary ATTILA Blairoster [id number] Insurance:MEDICARE MISCHLERDOB: Community NDIAYE [place], PART A [facility] [id number] Valley Hospital [address]Zia: Number: Repository [id number] (HP) Date:2018-04-18 05/15/2018 Secondary NOT GIVENUNK [place] Insurance:SELF PAY [facility] Number: Effective Repository Date:2018-05-15 05/15/2018 ATTILA Abreu Primary ATTILA Abreu [place] [id number] Insurance:MEDICARE MISCHLERDOB: [facility] NDIAYE DRW[place], PART A [facility] [id number] Valley Hospital [address]Ybg: Number: Repository [id number] (HP) Date:2018-05-15 05/15/2018 Secondary NOT GIVENUNK [place] Insurance:SELF PAY [facility] Number: Effective Repository Date:2018-05-15 05/14/2018 ATTILA K Primary ATTILA Abreu [facility] MISCHLERDOB: Insurance:MEDICARE A MISCHLERDOB: Health System AND BPolicy Number: [id number] Repository NIKOLAS JONAS, [id number] [place] [address]Sjr: Date: () 05/07/2018 ATTILA Abreu Primary ATTILA Abreu [place] [id number] Insurance:MEDICARE MISCHLERDOB: Community NDIAYE [place], PART A [facility] [id number] [place] [address]Qkg: Number: Repository [id number] () Date:2018-05-07 05/07/2018 Secondary NOT GIVENUNK [place] Insurance:SELF PAY [facility] Number: Effective Repository Date:2018-05-07 05/01/2018 ATTILA Abreu Primary ATTILAMELCHOR [facility] MISCHLERDOB: Insurance:MEDICARE A MISCHLERDOB: Health System AND BPolicy Number: [id number] Repository [place] [id number] [place], [place] Date: [address]Gvc: () 04/28/2018 ATTILA Abreu Primary ATTILAMELCHOR [facility] MISCHLERDOB: Insurance:MEDICARE A MISCHLERDOB: Health System AND BPolicy Number: [id number] Repository NIKOLAS JONAS, [id number] [place] [address]Prn: Date: () 04/28/2018 ATTILA KIRBYMELCHOR Abreu [place] [id number] Insurance:MEDICARE MISCHLERDOB: Community NDIAYE [place], PART A [facility] [id number] [place] [address]Ywe: Number: Repository [id number] () Date:2018-02-26 04/28/2018 Secondary NOT GIVENUNK [place] Insurance:SELF PAY [facility] Number: Effective Repository Date:2018-04-28 04/22/2018 ATTILA KIRBYMELCHOR Abreu [place] [id number] Insurance:MEDICARE MISCHLERDOB: Community NDIAYE [place], PART A [facility] [id number] [place] [address]Ygx: Number: Repository [id number] () Date:2018-04-15 04/22/2018 Secondary NOT GIVENUNK [place] Insurance:SELF PAY [facility] Number: Effective Repository Date:2018-04-15 04/17/2018 ATTILA Lois Menedl [facility] MISCHLERDOB: Insurance:MEDICARE A MISCHLERDOB: Health System AND BPolicy Number: [id number] Repository NIKOLAS JONAS, [id number] [place] [address]Abt: Date: () 04/16/2018 ATTILA Abreu Primary ATTILA Carranza [id number] Insurance:MEDICARE MISCHLERDOB: Community NDIAYE [place], PART A [id number] [address]Emn: Number: Repository [id number] () Date:2018-04-16 04/16/2018 Secondary NOT GIVENUNK [place] Insurance:SELF PAY [facility] Number: Effective Repository Date:2018-04-16 04/16/2018 ATTILA Abreu Primary ATTILA Brenner [facility] MISCHLERDOB: Insurance:MEDICARE A MISCHLERDOB: [facility] AND BPolicy Number: [id number] Repository NIKOLAS JONAS, [id number] [place] [address]Psk: Date: () 04/15/2018 ATTILAMELCHOR [place] [id number] Insurance:MEDICARE MISCHLERDOB: Community NDIAYE [place], PART A [facility] [id number] [address]Qps: Number: Repository [id number] () Date:2018-01-15 04/15/2018 Secondary NOT GIVENUNK [place] Insurance:SELF PAY [facility] Number: Effective Repository Date:2018-01-15 04/11/2018 ATTILA Abreu Primary NOT GIVENUNK [place] [id number] Insurance:SELF PAY [facility] [address]Zqr: Number: Effective Repository Date:2018-04-10 (HP) 04/11/2018 ATTILA Abreu Primary ATTILA Abreu [place] [id number] Insurance:MEDICARE MISCHLERDOB: [facility] NDIAYE DRWSTER, PART A [facility] [id number] Valley Hospital [address]Aqo: Number: Repository [id number] () Date:2018-01-15 04/11/2018 Secondary NOT GIVENUNK [place] Insurance:SELF PAY [facility] Number: Effective Repository Date:2018-04-11 04/09/2018 ATTILA Abreu Primary ATTILA Abreu [place] [id number] Insurance:MEDICARE MISCHLERDOB: Community NDIAYE [place], PART A [facility] [id number] Valley Hospital [address]Xri: Number: Repository [id number] (HP) Date:2018-04-08 04/09/2018 Secondary NOT GIVENUNK [place] Insurance:SELF PAY [facility] Number: Effective Repository Date:2018-04-09 04/08/2018 ATTILA Abreu Primary ATTILA Abreu [place] [id number] Insurance:MEDICARE MISCHLERDOB: Community NDIAYE [place], PART A [facility] [id number] Valley Hospital [address]Hxk: Number: Repository [id number] (HP) Date:2018-04-08 04/08/2018 Secondary NOT GIVENUNK [place] Insurance:SELF PAY [facility] Number: Effective Repository Date:2018-04-08 04/08/2018 ATTILA Abreu Primary ATTILA Abreu [place] [id number] Insurance:MEDICARE MISCHLERDOB: Community NDIAYE [place], PART A [facility] [id number] Valley Hospital [address]Fpb: Number: Repository [id number] (HP) Date:2018-04-08 04/08/2018 Secondary NOT GIVENUNK [place] Insurance:SELF PAY [facility] Number: Effective Repository Date:2018-04-08 04/07/2018 ATTILA Abreu Primary ATTILA Carranza [id number] Insurance:MEDICARE MISCHLERDOB: Community NDIAYE [place], PART A [facility] [id number] Valley Hospital 16[address]Lgj: Number: Repository [id number] (HP) Date:2018-04-01 04/07/2018 Secondary NOT GIVENUNK [place] Insurance:SELF PAY [facility] Number: Effective Repository Date:2018-04-01 04/07/2018 ATTILA Abreu Primary ATTILA Carranza [id number] Insurance:MEDICARE MISCHLERDOB: Community NDIAYE [place], PART A [facility] [id number] Valley Hospital [address]Bae: Number: Repository [id number] (HP) Date:2018-04-01 04/07/2018 Secondary NOT GIVENUNK [place] Insurance:SELF PAY [facility] Number: Effective Repository Date:2018-04-07 04/07/2018 ATTILA Abreu Primary ATTILA [place] [id number] Insurance:MEDICARE MISCHLERDOB: Community NDIAYE [place], PART A [facility] [id number] Valley Hospital [address]Pgd: Number: Repository [id number] (HP) Date:2018-04-01 04/07/2018 Secondary NOT GIVENUNK [place] Insurance:SELF PAY [facility] Number: Effective Repository Date:2018-04-07 04/02/2018 ATTILA Abreu Primary ATTILA Carranza [id number] Insurance:MEDICARE MISCHLERDOB: Community ND[place]YE [place], PART A [facility] [id number] Valley Hospital 11478Gka: Number: Repository [id number] (HP) Date:2018-04-02 04/02/2018 Secondary NOT GIVENUNK [place] Insurance:SELF PAY [facility] Number: Effective Repository Date:2018-04-02 04/01/2018 ATTILA Carranza [id number] Insurance:MEDICARE MISCHLERDOB: Community NDIAYE DRWESTEPHANIASTER, PART A [facility] [id number] Valley Hospital [address]Huf: Number: Repository [id number] () Date:2018-04-01 04/01/2018 Secondary NOT GIVENUNK [place] Insurance:SELF PAY [facility] Number: Effective Repository Date:2018-04-01 04/01/2018 ATTILA Abreu Primary ATTILA Carranza [id number] Insurance:MEDICARE MISCHLERDOB: Community ND[place]YE [place], PART A [facility] [id number] Valley Hospital [address]Isb: Number: Repository [id number] () Date:2018-04-14 04/01/2018 Secondary NOT GIVENUNK [place] Insurance:SELF PAY [facility] Number: Effective Repository Date:2018-04-17 03/25/2018 ATTILA K Primary ATTILA [facility] MISCHLERDOB: Insurance:MEDICARE A MISCHLERDOB: [facility] AND BPolicy Number: [id number] Repository NIKOLAS JONAS, [id number] [place] [address]Sxk: Date: () 03/25/2018 ATTILA [facility] MISCHLERDOB: Insurance:MEDICARE A MISCHLERDOB: [facility] AND BPolicy Number: [id number] Repository NIKOLAS JONAS, [id number] [place] [address]Hvi: Date: () 03/21/2018 ATTILA Carranza [id number] Insurance:MEDICARE MISCHLERDOB: Community NDIAYE [place], PART A [facility] [id number] Hospital [place] [address]Ctg: Number: Repository [id number] () Date:2018-03-21 03/21/2018 Secondary NOT GIVENUNK [place] Insurance:SELF PAY [facility] Number: Effective Repository Date:2018-03-21 03/20/2018 ATTILA Abreu Primary ATTILA Carranza [id number] Insurance:MEDICARE MISCHLERDOB: Community [place] [address], PART A [facility] [id number] Valley Hospital [address]1100Sbz: Number: Repository [id number] (HP) Date:2018-03-19 03/20/2018 Secondary NOT GIVENUNK [place] Insurance:SELF PAY [facility] Number: Effective Repository Date:2018-03-19 03/20/2018 ATTILA Abreu Primary ATTILA Carranza [id number] Insurance:MEDICARE MISCHLERDOB: Community [place], PART A [facility] [id number] Valley Hospital [address]Ant: Number: Repository [id number] (HP) Date:2018-03-20 03/20/2018 Secondary NOT GIVENUNK [place] Insurance:SELF PAY [facility] Number: Effective Repository Date:2018-03-20 03/20/2018 ATTILA Carranza [id number] Insurance:MEDICARE MISCHLERDOB: Community [place], PART A [facility] [id number] Valley Hospital [address]Fki: Number: Repository [id number] (HP) Date:2018-03-20 03/20/2018 Secondary NOT GIVENUNK [place] Insurance:SELF PAY [facility] Number: Effective Repository Date:2018-03-20 03/20/2018 ATTILA Carranza [id number] Insurance:MEDICARE MISCHLERDOB: Community [place], PART A [facility] [id number] Valley Hospital [address]Fas: Number: Repository [id number] (HP) Date:2018-03-20 03/20/2018 Secondary NOT GIVENUNK [place] Insurance:SELF PAY [facility] Number: Effective Repository Date:2018-03-20 03/20/2018 ATTILA Carranza [id number] Insurance:MEDICARE MISCHLERDOB: Community NDIAYE [facility], PART A [facility] [id number] Hospital [place] [address]Npd: Number: Repository [id number] () Date:2018-03-20 03/20/2018 Secondary NOT GIVENUNK [place] Insurance:SELF PAY [facility] Number: Effective Repository Date:2018-03-20 03/18/2018 ATTILA Abreu Primary ATTILA [place] [id number] Insurance:MEDICARE MISCHLERDOB: Community NDIAYE PART A [facility] [id number] Number: Repository [id number]: (304) [id number] [phone] () Date:2018-02-18 03/18/2018 Secondary NOT GIVENUNK [place] Insurance:SELF PAY [facility] Number: Effective Repository Date:2018-02-18 03/18/2018 ATTILA Abreu Primary ATTILA K [facility] MISCHLERDOB: Insurance:MEDICARE A MISCHLERDOB: [facility] AND [facility] Number: [id number] [facility], [id number] [place] [address]Xnw: Date: () 03/07/2018 ATTILA K Primary ATTILA Carranza [id number] Insurance:MEDICARE MISCHLERDOB: Community NDIAYE [facility], PART A [facility] [id number] [place] [address]Nmr: Number: Repository [id number] () Date:2018-03-07 03/07/2018 Secondary NOT GIVENUNK [place] Insurance:SELF PAY [facility] Number: Effective Repository Date:2018-03-07 02/26/2018 ATTILA Abreu Primary ATTILAMELCHOR Carranza [id number] Insurance:MEDICARE MISCHLERDOB: Community NDIAYE PART A [facility] [id number] [place] Number: Repository [id number]: [phone]) [id number] [phone] () Date:2018-02-25 02/26/2018 Secondary NOT GIVENUNK [place] Insurance:SELF PAY [facility] Number: Effective Repository Date:2018-02-26 02/25/2018 ATTILA Carranza [id number] Insurance:MEDICARE MISCHLERDOB: Community NDIAYE [facility], PART A [facility] [id number] Valley Hospital [address]Pnz: Number: Repository [id number] () Date:2018-01-14 02/25/2018 Secondary NOT GIVENUNK [place] [facility] Number: Effective Repository Date:2018-01-14 02/24/2018 ATTILA Abreu Primary ATTILA Carranza [id number] Insurance:MEDICARE MISCHLERDOB: Community NDIAYE PART A [facility] [id number] Number: Repository [id number]: 330 [id number] [phone] () Date:2018-02-24 02/24/2018 Secondary NOT GIVENUNK [place] Insurance:SELF PAY [facility] Number: Effective Repository Date:2018-02-24 02/21/2018 ATTILA Abreu Primary ATTILA Abreu [place] [id number] Insurance:MEDICARE MISCHLERDOB: Community NDIAYE PART A [facility] [id number] [place], [place] Number: Repository [id number]: 330 [id number] [phone] () Date:2017-10-29 02/21/2018 Secondary NOT GIVENUNK [place] Insurance:SELF PAY [facility] Number: Effective Repository Date:2018-02-21 02/20/2018 ATTILA Abreu Primary ATTILA [place] [id number] Insurance:MEDICARE MISCHLERDOB: [facility] [id number] Valley Hospital [address]Bjj: Number: Repository [id number] () Date:2018-02-20 02/20/2018 Secondary NOT GIVENUNK [place] Insurance:SELF PAY [facility] Number: Effective Repository Date:2018-02-20 02/18/2018 ATTILA Carranza [id number] Insurance:MEDICARE MISCHLERDOB: Community [place], PART A [facility] [id number] Valley Hospital [address]Xwk: Number: Repository [id number] () Date:2018-02-17 02/18/2018 Secondary NOT GIVENUNK [place] Insurance:SELF PAY [facility] Number: Effective Repository Date:2018-02-18 02/18/2018 ATTILA Carranza [id number] Insurance:MEDICARE MISCHLERDOB: Community [place], PART A [facility] [id number] Valley Hospital [address]Fln: Number: Repository [id number] () Date:2018-02-18 02/18/2018 Secondary NOT GIVENUNK [place] Insurance:SELF PAY [facility] Number: Effective Repository Date:2018-02-18 02/17/2018 ATTILA Blairoster [id number] Insurance:MEDICARE MISCHLERDOB: Community [place], PART A [facility] [id number] Valley Hospital [address]Qfg: Number: Repository [id number] () Date:2018-02-17 02/17/2018 Secondary NOT GIVENUNK [place] Insurance:SELF PAY [facility] Number: Effective Repository Date:2018-02-17 02/16/2018 ATTILA Bl[place]ster [id number] Insurance:MEDICARE MISCHLERDOB: Community [place], PART A [facility] [id number] Valley Hospital [address]Nwp: Number: Repository [id number] () Date:2018-02-16 02/16/2018 Secondary NOT GIVENUNK [place] Insurance:SELF PAY [facility] Number: Effective Repository Date:2018-02-16 02/13/2018 ATTILA Carranza [id number] Insurance:MEDICARE MISCHLERDOB: Community [place], PART A [facility] [id number] Valley Hospital [address]Xur: Number: Repository [id number] () Date:2018-02-12 02/13/2018 Secondary NOT GIVENUNK [place] Insurance:SELF PAY [facility] Number: Effective Repository Date:2018-02-13 02/05/2018 ATTILA Abreu [place] [id number] Insurance:MEDICARE [facility]: [facility] PART A [facility] [id number] Valley Hospital [address]Fac: Number: Repository [id number] () Date:2017-02-18 02/05/2018 Secondary NOT GIVENUNK [place] Insurance:SELF PAY [facility] Number: Effective Repository Date:2018-01-20 01/28/2018 ATTILA Abreu [place] [id number] Insurance:MEDICARE MISCHLERDOB: [facility], PART A [facility] [id number] Valley Hospital [address]Dtd: Number: Repository [id number] () Date:2018-01-14 01/28/2018 Secondary NOT GIVENUNK [place] Insurance:SELF PAY [facility] Number: Effective Repository Date:2018-01-14 01/21/2018 ATTILA Abreu [facility] MISCHLERDOB: Insurance:MEDICARE A MISCHLERDOB: [place] AND [facility] Number: [id number] [facility], [id number] [address] [place] [address]Lqa: Date:7924-72-05QqwcCent[place], [place] [facility] [address]Akg: 330) (AW) [phone] () 01/20/2018 ATTILA Abreu [place] [id number] Insurance:MEDICARE MISCHLERDOB: [facility], PART A [facility] [id number] Valley Hospital [address]Pnx: Number: Repository [id number] (HP) Date:2017-12-09 01/20/2018 Secondary NOT GIVENUNK [place] Insurance:SELF PAY [facility] Number: Effective Repository Date:2017-12-09 01/14/2018 ATTILA Carranza [id number] Insurance:MEDICARE MISCHLERDOB: Community [place], PART A [facility] [id number] Valley Hospital [address]Aei: Number: Repository [id number] (HP) Date:2018-01-09 01/14/2018 Secondary NOT GIVENUNK [place] Insurance:SELF PAY [facility] Number: Effective Repository Date:2018-01-14 01/14/2018 ATTILA Carranza [id number] Insurance:MEDICARE MISCHLERDOB: Community [place], PART A [facility] [id number] Valley Hospital [address]Fcm: Number: Repository [id number] (HP) Date:2018-01-09 01/14/2018 Secondary NOT GIVENUNK [place] Insurance:SELF PAY [facility] Number: Effective Repository Date:2018-01-14 01/10/2018 ATTILA Carranza [id number] Insurance:MEDICARE MISCHLERDOB: Community [place], PART A [facility] [id number] Valley Hospital [address]Svi: Number: Repository [id number] (HP) Date:2018-01-10 01/10/2018 Secondary NOT GIVENUNK [place] Insurance:SELF PAY [facility] Number: Effective Repository Date:2018-01-10 01/03/2018 ATTILA Carranza [id number] Insurance:MEDICARE MISCHLERDOB: Community [place], PART A [facility] [id number] Valley Hospital [address]Scu: Number: Repository [id number] (HP) Date:2017-12-26 01/03/2018 Secondary NOT GIVENUNK [place] Insurance:SELF PAY [facility] Number: Effective Repository Date:2017-12-26 12/19/2017 ATTILA Abreu Primary ATTILA Carranza [id number] Insurance:MEDICARE MISCHLERDOB: Community [place], PART A [facility] [id number] Valley Hospital [address]Dma: Number: Repository [id number] (HP) Date:2017-12-19 12/19/2017 Secondary NOT GIVENUNK [place] Insurance:SELF PAY [facility] Number: Effective Repository Date:2017-12-19 12/19/2017 ATTILA Abreu Primary ATTILA Carranza [id number] Insurance:MEDICARE MISCHLERDOB: Community [place], PART A [facility] [id number] Valley Hospital [address]Rur: Number: Repository [id number] (HP) Date:2017-12-10 12/19/2017 Secondary NOT GIVENUNK [place] Insurance:SELF PAY [facility] Number: Effective Repository Date:2017-12-10 12/16/2017 ATTILA Carranza [id number] Insurance:MEDICARE MISCHLERDOB: Community [place], PART A [facility] [id number] Valley Hospital [address]Gbq: Number: Repository [id number] (HP) Date:2017-12-16 12/16/2017 Secondary NOT GIVENUNK [place] Insurance:SELF PAY [facility] Number: Effective Repository Date:2017-12-16 12/06/2017 ATTILA Carranza [id number] Insurance:MEDICARE MISCHLERDOB: Community [place], PART A [facility] [id number] Valley Hospital [address]Hrt: Number: Repository [id number] (HP) Date:2017-12-04 12/06/2017 Secondary NOT GIVENUNK [place] Insurance:SELF PAY [facility] Number: Effective Repository Date:2017-12-04 12/02/2017 ATTILA Carranza [id number] Insurance:MEDICARE MISCHLERDOB: Community NDIAYESARAH CLAYTONER, PART A [facility] [id number] Valley Hospital [address]Aaz: Number: Repository [id number] () Date:2017-12-02 12/02/2017 Secondary NOT GIVENUNK [place] Insurance:SELF PAY [facility] Number: Effective Repository Date:2017-12-02 11/30/2017 ATTILA Oglesby ATTILA Abreu [place] [id number] Insurance:MEDICARE MISCHLERDOB: Community NDIAYE [place], PART A [facility] [id number] Valley Hospital [address]Kkr: Number: Repository [id number] () Date:2017-11-30 11/30/2017 Secondary NOT GIVENUNK [place] Insurance:SELF PAY [facility] Number: Effective Repository Date:2017-11-30 11/11/2017 ATTILA Oglesby ATTILA Abreu [place] [id number] Insurance:MEDICARE MISCHLERDOB: Community NDIAYE [place], PART A [facility] [id number] Valley Hospital [address]Ffb: Number: Repository [id number] () Date:2017-11-05 11/11/2017 Secondary NOT GIVENUNK [place] Insurance:SELF PAY [facility] Number: Effective Repository Date:2017-11-05
== END 2018-11-08 19:55 | disposition home or self-care (01) ==
PROVIDERS: Emergency Provider Emergency Medicine; Family Provider Family Medicine; PCP Family Medicine
DX: S43.401A Unspecified sprain of right shoulder joint, initial encounter (principal); X58.XXXA Exposure to other specified factors, initial encounter; Y93.H1 Activity, digging, shoveling and raking; Y92.9 Unspecified place or not applicable; I10 Essential (primary) hypertension; I47.1 Supraventricular tachycardia; I48.91 Unspecified atrial fibrillation; I48.92 Unspecified atrial flutter; Z79.01 Long term (current) use of anticoagulants; Z79.899 Other long term (current) drug therapy
CPT/HCPCS: 73030; 99283; A4216

== ENCOUNTER 2018-11-21 20:37 | Emergency (ER) | payer MEDICARE, SELFPAY ==
[2018-11-21 20:38] VITALS: BP 134/80; PULSE 93; RESP 17; TEMP 36.6; O2SAT 96; BMI 32.8
--- NOTE | 2018-11-21 21:00 | CT_ITS ---
STUDY: CT ABDOMEN AND PELVIS WITHOUT CONTRAST REASON FOR EXAM: Male, 48 years old. Bilateral flank pain. RADIATION DOSAGE (If Supplied By Facility): CTDIvol = ( 16.57 ) mGy, DLP = ( 952.44 ) mGycm TECHNIQUE: Transaxial images were obtained from the dome of the diaphragm to the symphysis pubis without oral contrast, and without intravenous contrast. Sagittal and coronal images were reconstructed. Individualized dose optimization techniques were used for this CT. COMPARISON: None. FINDINGS: Lung bases are clear. Visualized heart is normal. The liver is unremarkable. The gallbladder is unremarkable. The spleen and pancreas are unremarkable. The adrenal glands are normal. Multiple nonobstructing right renal stones are noted, measuring up to 4 mm. The left kidney is unremarkable. There is no hydronephrosis. There is mild haziness of the central mesentery, with shotty adenopathy. The aorta is normal in caliber. There is no free fluid, free air, or organized collection. No bowel obstruction or inflammatory change. Normal appendix. Urinary bladder is unremarkable. Normal abdominal wall. Normal osseous structures. CT/Abdomen/Pelvis without Cont IMPRESSION: 1. Haziness of the central mesentery and shotty adenopathy, suggesting mesenteric panniculitis. 2. Nonobstructing right renal stones. There is no evidence of obstructive uropathy. Electronically Signed: Di Ryan MD at 22:22 EST Tel , Service support ,
--- NOTE | 2018-11-21 21:01 | ED.VISSUMM ---
- ER Visit Summary Date of Service: 11/21/18 Chief Complaint: Flank pain dysuria History of Present Illness: The patient is a 48 M with history of kidney stones presents with bilateral flank pain suprapubic pain and dysuria. No fever. No upper abdominal pain or chest pain. Pain does not radiate into his testicle he has no testicular pain. No recent trauma. Pain is aching sharp and stabbing similar to prior kidney stones, however he has not had bilateral pain with kidney stones before. Physical Examination: Patient appears in some distress, he does not appear toxic Moist mucous membranes, no obvious facial deformity No C-spine tenderness supple neck. Regular rate and rhythm without any obvious murmurs Clear lungs bilaterally speaking in full sentences without any obvious respiratory distress Abdomen soft with slight suprapubic pain, no guarding or rebound. He does have bilateral CVA tenderness although this is ill reproduced. Moves all extremities without any difficulty or pain. Skin does not show any obvious rashes or lesions, no trauma. 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 I will put him on analgesics and follow-up with surgery. Disposition: Discharge stable condition Impression: Mesenteric panniculitis This note was generated with [employer] dictation software. It may contain incorrect words, spelling, and punctuation that were not noted in review of the chart prior to signing ED Disposition - Plan for ED Patient: Disposition: Home or Assisted Living Prescriptions: Hydrocodone Bitart/Apap 5-325 [[place] 5MG-325MG] 1 tab PO Q4H PRN PRN 2 Days #12 tab PRN Reason: Pain Referrals: Elisabeth Lerma MD [STAFF PHYSICIAN] - Additional Instructions: Have been diagnosed with mesenteric panniculitis, the cause is unknown, we will write to pain medications as needed. If he had fever or chills please return to the emergency department. If your pain gets worse please return.
[2018-11-21 21:17] LABS: Bacteria 0 SEEN /hpf (None Seen); Red Blood Cells-Urine 0 SEEN /hpf (0-5); Squamous Epithelial Cells - UA 0 SEEN /hpf (0-5); White Blood Cells 0 SEEN /hpf (0-5)
[2018-11-21 21:21] LABS: Color, Urine Yellow (Yellow); Glucose, Dipstick Normal (Normal); Ketone-Dipstick Negative (Negative); Leukocyte Esterase-Dipstick Negative /ul (Negative); Nitrite-Dipstick Negative (Negative); Occult Blood-Urine Negative /ul (Negative); Protein-Dipstick 15 mg/dl (Negative); Urine Bilirubin Dipstick Negative (Negative); Urine Clarity Clear (Clear); Urine Urobilinogen 1 mg/dl (Normal)
[2018-11-21] MEDS: Ketorolac 30 MG/ML Syringe IV (21:25)
[2018-11-21] MEDS: Morphine 4 MG/ML Syringe IV (21:25)
[2018-11-21] MEDS: 0.9% Normal Saline 1,000 ML 1000 ML IV (21:25)
[2018-11-21] MEDS: Ondansetron 4 MG/2 ML Vial IV (21:25)
[2018-11-21 21:29] LABS: Absolute Lymphocyte Count 2.63 X10^3/ul (0.83-4.51); Absolute Neutrophil Count 3.2 X10^3/uL (2.0-7.7); Basophil# 0.04 X10^3/uL; Basophil% 0.6 % (0-1); Eosinophil# 0.13 X10^3/uL; Hematocrit 36.9 % (40-54); Hemoglobin 11.7 g/dl (13.0-16.5); Lymphocyte # 2.63 X10^3/ul (4.0); Lymphocyte % 39.7 % (19-41); Mean Corp Hgb Conc 31.7 g/gl (32-36); Mean Corpuscular Hgb 25.1 pg (27.0-32.0); Mean Platelet Vol. 8.8 fl (6.2-12.0); Monocyte# 0.58 X10^3/uL; Monocyte% 8.8 % (0-10); Neutrophil # 3.23 X10^3/uL (2.7-7.7); Neutrophil % 48.7 % (47-70); POSITIVE COUNT NO; POSITIVE DIFFERENTIAL NO; POSITIVE MORPHOLOGY NO; Platelet Count 310 K/mm3 (150-450); RBC Distribution Width CV 14.9 % (11.6-14.6); RBC Distribution Width SD 42.4 fl (35.1-43.9); Red Blood Count 4.67 M/mm3 (4.6-6.2); White Blood Count 6.6 K/mm3 (4.4-11.0)
[2018-11-21 21:36] LABS: Mucous, Urine 2+ /hpf (<or=2+)
[2018-11-21 21:45] LABS: AST(SGOT) 21 U/L (15-37); Alanine Aminotransfer ALT/SGPT 27 U/L (16-61); Albumin, Serum 3.4 g/dL (3.2-5.0); Alkaline Phosphatase 106 U/L (45-117); Anion Gap 10 (5-15); BUN 17 mg/dL (7-18); BUN/Creat Ratio 20.6 RATIO (10-20); Calcium,Total 8.2 mg/dL (8.5-10.1); Chloride 111 mmol/L (98-107); Creatinine, Serum 0.83 mg/dL (0.70-1.30); EST Glomerular Filtration Rate 105 mL/min (>60); Est Glom Filt Rate - Afr Amer 128 mL/min (>60); Estimated Creatinine Clearance 115.92 ml/min; Globulin 3.4 g/dL (2.2-4.2); Glucose 76 mg/dL (74-106); Potassium 3.5 mmol/L (3.5-5.1); Protein, Total 6.8 g/dL (6.4-8.2); Sodium Level 145 mmol/L (136-145)
[2018-11-21 22:58] VITALS: PULSE 78; RESP 14; O2SAT 99
== END 2018-11-21 22:59 | disposition home or self-care (01) ==
PROVIDERS: Emergency Provider Emergency Medicine; Family Provider Family Medicine; PCP Family Medicine
DX: K65.4 Sclerosing mesenteritis (principal); I11.0 Hypertensive heart disease with heart failure; I50.9 Heart failure, unspecified; I48.91 Unspecified atrial fibrillation; Z79.01 Long term (current) use of anticoagulants; Z79.899 Other long term (current) drug therapy
CPT/HCPCS: 74176; 80053; 81001; 85025; 96361; 96374; 96375; 99283; J2405

== ENCOUNTER 2018-11-24 18:52 | Emergency (ER) | payer MEDICARE, SELFPAY ==
[2018-11-24 18:53] VITALS: BP 154/87; PULSE 89; RESP 22; TEMP 36.2; O2SAT 99; BMI 33.0
--- NOTE | 2018-11-24 19:13 | RAD_ITS ---
STUDY: X-RAY CHEST REASON FOR EXAM: Male, 48 years old. Shortness of breath TECHNIQUE: Frontal view of the chest COMPARISON: 10/27/2018 FINDINGS: The lungs are clear. There are no pleural effusions. There is no pneumothorax. The heart is normal in size. The visualized osseous structures are within normal limits. RAD/Chest 1 View (Portable) IMPRESSION: No acute thoracic pathology. Electronically Signed: Vishnu Aranda, at 19:22 EST Tel , Service support ,
[2018-11-24 20:07] VITALS: RESP 18; O2SAT 100
[2018-11-24 20:09] VITALS: BP 135/102; PULSE 88; RESP 18; O2SAT 100
[2018-11-24 20:10] VITALS: O2SAT 100
[2018-11-24 20:32] LABS: Bacteria 0 SEEN /hpf (None Seen); Mucous, Urine 0 SEEN /hpf (<or=2+); Red Blood Cells-Urine 0 SEEN /hpf (0-5); White Blood Cells 0 SEEN /hpf (0-5)
[2018-11-24] MEDS: Ondansetron 4 MG/2 ML Vial IV (20:35)
[2018-11-24] MEDS: Morphine 4 MG/ML Syringe IV ×2 (20:35→22:12)
[2018-11-24] MEDS: 0.9% Normal Saline 1,000 ML 999 ML IV (20:35)
[2018-11-24 20:36] LABS: Absolute Lymphocyte Count 2.64 X10^3/ul (0.83-4.51); Basophil# 0.03 X10^3/uL; Basophil% 0.5 % (0-1); Eosinophil# 0.12 X10^3/uL; Eosinophils% 1.9 % (0-5); Hematocrit 39.4 % (40-54); Hemoglobin 12.4 g/dl (13.0-16.5); Lymphocyte # 2.64 X10^3/ul (4.0); Lymphocyte % 42.4 % (19-41); Mean Corp Hgb Conc 31.5 g/gl (32-36); Mean Corpuscular Hgb 24.7 pg (27.0-32.0); Mean Corpuscular Volume 78.3 fL (80-94); Mean Platelet Vol. 8.8 fl (6.2-12.0); Monocyte# 0.41 X10^3/uL; Monocyte% 6.6 % (0-10); Neutrophil # 3.01 X10^3/uL (2.7-7.7); Neutrophil % 48.4 % (47-70); Platelet Count 342 K/mm3 (150-450); RBC Distribution Width CV 14.5 % (11.6-14.6); RBC Distribution Width SD 40.8 fl (35.1-43.9); Red Blood Count 5.03 M/mm3 (4.6-6.2); White Blood Count 6.2 K/mm3 (4.4-11.0)
[2018-11-24 20:40] LABS: POSITIVE COUNT NO; POSITIVE DIFFERENTIAL NO; POSITIVE MORPHOLOGY NO
[2018-11-24 20:43] LABS: Color, Urine Yellow (Yellow); Glucose, Dipstick Normal (Normal); Ketone-Dipstick Negative (Negative); Leukocyte Esterase-Dipstick Negative /ul (Negative); Nitrite-Dipstick Negative (Negative); Occult Blood-Urine Negative /ul (Negative); Protein-Dipstick Negative (Negative); Urine Bilirubin Dipstick Negative (Negative); Urine Clarity Sl. Cloudy (Clear); Urine Urobilinogen 1 mg/dl (Normal)
[2018-11-24 20:46] LABS: Amorphous Sediment 1+ PHOS; Squamous Epithelial Cells - UA 0-5 SEEN /hpf (0-5)
[2018-11-24 20:47] VITALS: BP 135/98
[2018-11-24 20:47] LABS: Anion Gap 10 (5-15); BUN 15 mg/dL (7-18); BUN/Creat Ratio 16.6 RATIO (10-20); Calcium,Total 8.7 mg/dL (8.5-10.1); Chloride 106 mmol/L (98-107); EST Glomerular Filtration Rate 95 mL/min (>60); Est Glom Filt Rate - Afr Amer 115 mL/min (>60); Estimated Creatinine Clearance 106.91 ml/min; Glucose 94 mg/dL (74-106); Potassium 3.5 mmol/L (3.5-5.1); Sodium Level 142 mmol/L (136-145)
--- NOTE | 2018-11-24 21:45 | ED.VISSUMM ---
- ER Visit Summary Date of Service: 11/24/18 Chief Complaint: Right flank pain History of Present Illness: The patient is a 48 M worsening right flank pain the past few hours. Been on and off past 3 days. States was seen here 3 days ago with a workup for kidney stones that were negative. He states there is an abnormal finding on CT for which he was referred to surgeon Dr. Lerma. He had abdominal pain at this time. States that is improving. Reports had blood in his urine initially which is also improving. Nausea without vomiting. No diarrhea. States he is also been dealing with cardiac issues with an aneurysm on CT surgeon appointment tomorrow. Reports had a CAT scan of his chest and [facility] in this past week. He is on Eliquis for history of A. fib with no missed doses. No cough. They do the flank pain feels short of breath. Pain feels like his kidney stone. Physical Examination: General: Alert and oriented ?3, no acute distress HEENT: Normocephalic, atraumatic. Moist mucosa membranes Neck: supple, nontender. Cardiovascular: Regular rate and rhythm, no murmurs Respiratory: Normal breath sounds, symmetric, no distress Abdomen: Soft, nontender, nondistended Back: Right flank tenderness with no rash. No ecchymosis. Extremities: Nontender, no edema, pulses intact ?4 Neuro: no focal neurological deficits. Test Results: CBC White count 6.2 hemoglobin 12.4. Creatinine 0.90 urine negative. Chest x-ray with no acute process. Emergency Department Course and Treatment: Review patient's workup 3 days ago there is no blood in the urine labs are stable CT no renal stones there was noted mesenteric panniculitis. Clinically he states his abdominal pain is improving. Patient has right flank pain, he reports mild dyspnea chest x-ray negative. I did evaluate records from [facility], noted he had CTA chest and [facility] on 11/16 neg for PE noted stable thoracic ascending aneurysm. In addition there was a CT chest at [facility] on 11/19 but also notes similar findings. Patient being on Eliquis with 2- CTs in the last week, do not feel this would be PE related. Labs are stable urine negative. Unclear etiology for right flank pain. Treated with morphine in the ED. Discussed monitoring for rash. Discussed with patient's pain is worsened if he would like to be monitored in the hospital however he states he has had symptoms with no clear etiologies. He would like to go home and follow-up as an outpatient. Prescription of [place] was written. He tolerated this recently. [facility] report showed no overlap. Treatment Plan: [] Disposition: Discharge Impression: Right flank pain This note was generated with [employer] dictation software. It may contain incorrect words, spelling, and punctuation that were not noted in review of the chart prior to signing ED Disposition - Plan for ED Patient: Disposition: Home or Assisted Living Diagnosis: Flank pain Instructions: ED Flank Pain Uncertain Cause Prescriptions: Hydrocodone Bitart/Apap 5-325 [[place] 5MG-325MG] 1 tablet PO Q6H PRN PRN 3 Days #10 tablet PRN Reason: Pain Referrals: Ar Mckeon MD [Primary Care Provider] - 3-5 Days
[2018-11-24 22:58] VITALS: RESP 14
== END 2018-11-24 23:00 | disposition home or self-care (01) ==
PROVIDERS: Emergency Medicine; Emergency Provider Emergency Medicine; Family Provider Family Medicine; PCP Family Medicine
DX: R10.9 Unspecified abdominal pain (principal); I25.10 Atherosclerotic heart disease of native coronary artery without angina pectoris; I10 Essential (primary) hypertension; I48.91 Unspecified atrial fibrillation; E66.9 Obesity, unspecified; Z68.33 Body mass index [BMI] 33.0-33.9, adult; Z87.442 Personal history of urinary calculi; Z79.01 Long term (current) use of anticoagulants; Z79.899 Other long term (current) drug therapy
CPT/HCPCS: 71045; 80048; 81001; 85025; 94760; 96361; 96374; 96375; 96376; 99283; J7030; A4216; J2405

== ENCOUNTER 2018-11-28 16:55 | Emergency (ER) | payer MEDICARE, SELFPAY ==
[2018-11-28 16:56] VITALS: BP 167/112; PULSE 102; RESP 16; TEMP 37.2; O2SAT 100; BMI 37.6
--- NOTE | 2018-11-28 17:07 | ED.VISSUMM ---
- ER Visit Summary Date of Service: 11/28/18 Chief Complaint: Upper abdominal pain History of Present Illness: The patient is a 48 M recently diagnosed with mesenteric panniculitis according the patient a week ago. States has had cramping and loose stool for approximately a week. Also associated nausea vomiting. Mild blood mixed with his stool is bright red. He denies any hematemesis. Denies any fever. No dysuria. He is never had any prior abdominal surgeries. Of note he is on Eliquis for prior strokes. He also has a known thoracic aneurysm. Physical Examination: Well-appearing middle-age male. Vital signs are stable. Initial blood pressure 167/112. Afebrile. He does not look septic or toxic. He is in no acute distress. HEENT exam unremarkable. Moist weeks membranes. Neck nontender no lymphadenopathy. Lungs clear to auscultation bilaterally. Heart regular rhythm rate about 100 no murmur. Abdomen is soft. Nondistended. Normal bowel sounds. He is tender in epigastric region. There is no rebound, guarding or rigidity. No signs of traction. Positive bowel sounds and soft. Patient is moving all 4 extremities. They are neurovascularly intact. Calves are nontender without edema or cords. Back is nontender. Neurologically is awake alert with no focal motor deficits. Test Results: CBC showed a white count of 5. Hemoglobin of 12.8 which is his baseline chronic anemia. Lites unremarkable normal creatinine and gap. Liver enzymes unremarkable. Lipase normal at 118. UA negative. Emergency Department Course and Treatment: Treated with IV fluids. IV Zofran. Repeat exam patient is doing well at 1742 and again at 1826. He and I went over all his test. He had a recent CAT scan showing mesenteric panniculitis. I do not feel he needs any further imaging. Treatment Plan: Discharged to home. Tylenol or Motrin for pain. Follow-up with his primary care physician. Disposition: Discharge Impression: Acute abdominal pain Recently diagnosed with mesenteric panniculitis This note was generated with [employer] dictation software. It may contain incorrect words, spelling, and punctuation that were not noted in review of the chart prior to signing ED Disposition - Plan for ED Patient: Referrals: Ar Mckeon MD [Primary Care Provider] -
[2018-11-28 17:21] LABS: Absolute Neutrophil Count 3.8 X10^3/uL (2.0-7.7); Basophil# 0.03 X10^3/uL; Basophil% 0.5 % (0-1); Eosinophils% 1.7 % (0-5); Hematocrit 40.8 % (40-54); Hemoglobin 12.8 g/dl (13.0-16.5); Lymphocyte % 25.6 % (19-41); Mean Corp Hgb Conc 31.4 g/gl (32-36); Mean Corpuscular Hgb 24.6 pg (27.0-32.0); Mean Corpuscular Volume 78.3 fL (80-94); Mean Platelet Vol. 8.6 fl (6.2-12.0); Monocyte# 0.46 X10^3/uL; Monocyte% 7.9 % (0-10); Neutrophil # 3.76 X10^3/uL (2.7-7.7); Neutrophil % 64.3 % (47-70); Platelet Count 301 K/mm3 (150-450); RBC Distribution Width CV 14.4 % (11.6-14.6); RBC Distribution Width SD 40.9 fl (35.1-43.9); Red Blood Count 5.21 M/mm3 (4.6-6.2); White Blood Count 5.9 K/mm3 (4.4-11.0)
[2018-11-28 17:23] LABS: POSITIVE COUNT NO; POSITIVE DIFFERENTIAL NO; POSITIVE MORPHOLOGY NO
[2018-11-28] MEDS: Ondansetron 4 MG/2 ML Vial IV (17:25)
[2018-11-28] MEDS: 0.9% Normal Saline 1,000 ML 1000 ML IV (17:25)
[2018-11-28 17:26] LABS: Bacteria 0 SEEN /hpf (None Seen); Red Blood Cells-Urine 0 SEEN /hpf (0-5); Squamous Epithelial Cells - UA 0 SEEN /hpf (0-5); White Blood Cells 0 SEEN /hpf (0-5)
[2018-11-28 17:37] LABS: AST(SGOT) 32 U/L (15-37); Alanine Aminotransfer ALT/SGPT 36 U/L (16-61); Albumin, Serum 3.8 g/dL (3.2-5.0); Alkaline Phosphatase 115 U/L (45-117); Anion Gap 7 (5-15); BUN 14 mg/dL (7-18); BUN/Creat Ratio 13.9 RATIO (10-20); Bilirubin, Direct 0.09 mg/dL (0.00-0.30); Calcium,Total 8.5 mg/dL (8.5-10.1); Chloride 108 mmol/L (98-107); Creatinine, Serum 1.01 mg/dL (0.70-1.30); EST Glomerular Filtration Rate 84 mL/min (>60); Est Glom Filt Rate - Afr Amer 101 mL/min (>60); Estimated Creatinine Clearance 95.26 ml/min; Globulin 3.5 g/dL (2.2-4.2); Glucose 114 mg/dL (74-106); Lipase 118 U/L (73-393); Potassium 3.7 mmol/L (3.5-5.1); Protein, Total 7.3 g/dL (6.4-8.2); Sodium Level 141 mmol/L (136-145)
[2018-11-28 17:41] LABS: Color, Urine Yellow (Yellow); Glucose, Dipstick Normal (Normal); Ketone-Dipstick 5 mg/dl (Negative); Leukocyte Esterase-Dipstick 25 /ul (Negative); Nitrite-Dipstick Negative (Negative); Occult Blood-Urine Negative /ul (Negative); Protein-Dipstick 15 mg/dl (Negative); Specific Gravity, Urine 1.015 (1.002-1.030); Urine Bilirubin Dipstick Negative (Negative); Urine Clarity Clear (Clear); Urine Urobilinogen 1 mg/dl (Normal)
[2018-11-28] MEDS: Dicyclomine 10 MG Capsule 20 MG PO (17:49)
[2018-11-28 18:18] LABS: Mucous, Urine 2+ /hpf (<or=2+)
--- NOTE | 2018-11-28 18:29 | ED.DEP ---
ED Disposition - Plan for ED Patient: Disposition: Home or Assisted Living Prescriptions: Dicyclomine HCl [Bentyl] 10 mg PO TIDAC #14 cap Referrals: Ar Mckeon MD [Primary Care Provider] - 1 Week if not improving Additional Instructions: Plenty of fluids and rest. Tylenol and/or Motrin for pain. Bentyl as needed for abdominal cramping. Follow-up with your doctor if not improving. Your labs today were unremarkable.
[2018-11-28 18:43] VITALS: BP 140/107; PULSE 86; RESP 15; O2SAT 99
== END 2018-11-28 18:47 | disposition home or self-care (01) ==
LOC: ED 18:34
PROVIDERS: Emergency Provider Emergency Medicine; Family Provider Family Medicine; PCP Family Medicine
DX: K65.4 Sclerosing mesenteritis (principal); I71.2 Thoracic aortic aneurysm, without rupture; I25.2 Old myocardial infarction; I10 Essential (primary) hypertension; Z86.73 Personal history of transient ischemic attack (TIA), and cerebral infarction without residual deficits; Z79.01 Long term (current) use of anticoagulants; Z79.899 Other long term (current) drug therapy
CPT/HCPCS: 80048; 80076; 81001; 83690; 85025; 96374; 99284; J7030; J2405

== ENCOUNTER → 2018-12-02 12:22 | Outpatient (CLI) | payer MEDICARE, SELFPAY ==
[2018-11-28 16:56] VITALS: BMI 37.6
[2018-12-02 14:10] LABS: Amphetamine Urine VISTA NEGATIVE (<1000 ng/mL); Barbiturate Urine VISTA NEGATIVE (< 200 ng/mL); Benzodiazepine Urine VISTA NEGATIVE (< 200 ng/mL); Cocaine Urine VISTA NEGATIVE (< 300 ng/mL); Ecstacy Urine VISTA NEGATIVE (< 500 ng/mL); Methadone Urine VISTA NEGATIVE (< 300 ng/mL); PCP Urine VISTA NEGATIVE (< 25 ng/mL); THC Urine VISTA NEGATIVE (< 50 ng/mL); Vista UDS pH Range 7
== END ==
PROVIDERS: Family Provider Family Medicine; PCP Family Medicine; Referring Provider Anesthesiology Pain Medicine; Visit Provider Anesthesiology Pain Medicine
DX: F11.20 Opioid dependence, uncomplicated (principal)
CPT/HCPCS: 80307

== ENCOUNTER 2018-12-03 22:28 | Emergency (ER) | payer MEDICARE, SELFPAY ==
[2018-12-03 22:28] VITALS: BP 140/101; PULSE 79; RESP 14; TEMP 36.6; O2SAT 100; BMI 33.2
--- NOTE | 2018-12-03 22:40 | ED.RN ---
case management consult placed for pt related to frequency of visits to ed. pt has been to ed 11 times since the start of the year. [facility] he is currently in pain management with dr milton. ronnie lo, rn [id number]
--- NOTE | 2018-12-03 22:51 | CM.ED ---
Social Work Note Discussed with physician and will complete chart review for potential EDCP. RAFIA Verma, CAR
--- NOTE | 2018-12-03 23:01 | RAD_ITS ---
STUDY: X-RAY - LEFT ELBOW REASON FOR EXAM: Male, 48 years old. Left elbow pain with swelling. TECHNIQUE: 3 view(s) of the elbow. COMPARISON: 10/23/2018. FINDINGS: There is no acute fracture. There is no dislocation. There is an old healed supracondylar fracture of the humerus with mild posttraumatic deformity. There are several well-corticated ossific fragments in the anterior joint space consistent with remote fracture. There is mild narrowing of the ulnar trochlear joint, with coronoid spurring. RAD/Elbow min 3 Views IMPRESSION: 1. No acute findings. 2. Old healed fracture deformity and well-corticated fracture fragments. 3. Mild degenerative changes. Electronically Signed: Di Ryan MD at 23:19 EST Tel , Service support ,
--- NOTE | 2018-12-03 23:38 | ED.VISSUMM ---
- ER Visit Summary Date of Service: 12/03/18 Chief Complaint: Left elbow swelling History of Present Illness: The patient is a 48 M who fell 3 weeks ago and struck his elbow against a wall. He followed up with orthopedics for some old fragments that were noted in the elbow joint. Today he noted some swelling along the extensor surface of the elbow. He is right-hand dominant. He is noted to be on Eliquis. Physical Examination: Vital signs unremarkable. Patient sitting upright in bed no acute distress. Left upper extremity examination does reveal some edema to the left olecranon bursa. He has full range of motion of the elbow. There is no erythema or excessive warmth noted. Test Results: Left elbow x-ray shows no acute findings. There is evidence of old healed fracture deformity and well-corticated fracture fragments. Emergency Department Course and Treatment: I did aspirate fluid from the bursa but no return of fluid. Dressing is applied with Fabrice wrap to provide pressure to help encourage fluid reabsorption. Treatment Plan: [] Disposition: Discharge Impression: Left olecranon bursitis This note was generated with [employer] dictation software. It may contain incorrect words, spelling, and punctuation that were not noted in review of the chart prior to signing ED Disposition - Plan for ED Patient: Disposition: Home or Assisted Living Instructions: ED Bursitis Elbow Olecranon Referrals: Ar Mckeon MD [Primary Care Provider] - 1 Week
[2018-12-03 23:44] VITALS: BP 125/90; PULSE 68; RESP 17; O2SAT 94
== END 2018-12-03 23:45 | disposition home or self-care (01) ==
PROVIDERS: Emergency Provider Emergency Medicine; Family Provider Family Medicine; PCP Family Medicine
DX: M70.22 Olecranon bursitis, left elbow (principal); I25.10 Atherosclerotic heart disease of native coronary artery without angina pectoris; I10 Essential (primary) hypertension; I48.91 Unspecified atrial fibrillation; I48.92 Unspecified atrial flutter; I47.1 Supraventricular tachycardia; Z79.01 Long term (current) use of anticoagulants; Z79.899 Other long term (current) drug therapy
CPT/HCPCS: 73080; 99282

== ENCOUNTER 2018-12-12 10:55 | Emergency (ER) | payer MEDICARE, SELFPAY ==
[2018-12-12] VITALS (9 sets, daily range): BP systolic 109–151; BP diastolic 87–114; PULSE 81–171; RESP 10–33; TEMP 36.5; O2SAT 95–100; BMI 33.3
--- NOTE | 2018-12-12 10:59 | RAD_ITS ---
STUDY: X-RAY CHEST REASON FOR EXAM: Male, 48 years old. Dyspnea. Palpitations. TECHNIQUE: Single AP portable view of the chest. COMPARISON: Comparison is made with prior study dated November 24, 2018. FINDINGS: EKG electrodes are seen. Mild increased markings at the lung bases suggestive of linear atelectasis. There is no demonstrated pleural abnormality. Normal size heart. Normal mediastinum and ruben. Normal visualized pulmonary arteries. There is atherosclerotic tortuosity of the aortic arch and descending thoracic aorta. There are diffuse degenerative changes of the visualized thoracic spine. Normal visualized ribs, clavicles, and shoulders. There is no demonstrated abnormality of the visualized soft tissue structures of the upper abdomen. RAD/Chest 1 View (Portable) IMPRESSION: Mild increased markings at the lung bases suggestive of linear atelectasis. Electronically Signed: Pablito Young MD at 12:28 EST , Service support ,
--- NOTE | 2018-12-12 11:00 | EKG12_ITS ---
Test Reason : POST CARDIOVERT Blood Pressure : / mmHG Vent. Rate : 088 BPM Atrial Rate : 088 BPM P-R Int : 164 ms QRS Dur : 080 ms QT Int : 378 ms P-R-T Axes : 019 013 024 degrees QTc Int : 457 ms Normal sinus rhythm Normal ECG Confirmed by NABILA CONNOR, JEANCARLOS ([id number]), assistant film editor CRISTIAN KAUR ([id number]) on 12/16/2018 4:41:13 PM Referred By: EMMANUEL Confirmed By:JEANCARLOS DAHL MD
[2018-12-12] MEDS: 0.9% Normal Saline 1,000 ML 150 ML IV (11:06)
[2018-12-12] MEDS: Ondansetron 4 MG/2 ML Vial IV ×2 (11:06→12:55)
[2018-12-12] MEDS: Propofol 200 MG/20 ML Vial IV BOLUS (11:09)
--- NOTE | 2018-12-12 11:11 | EKG12_ITS ---
Test Reason : CP Blood Pressure : / mmHG Vent. Rate : 169 BPM Atrial Rate : 170 BPM P-R Int : 000 ms QRS Dur : 084 ms QT Int : 282 ms P-R-T Axes : 000 045 -31 degrees QTc Int : [address] & T wave abnormality, consider inferior ischemia Abnormal ECG Confirmed by NABILA CONNOR, JEANCARLOS ([id number]), editor city CRISTIAN KAUR ([id number]) on 12/16/2018 4:41:30 PM Referred By: EMMANUEL Confirmed By:JEANCARLOS DAHL MD
--- NOTE | 2018-12-12 11:20 | ED.DCSUM_ITS ---
History of Present Illness Chief Complaint: Palpitations Detail of Chief Complaint: Awoke with symptoms this morning Informant: Patient Onset: Today Context: Sudden Onset Timing: Continuous Quality: Palpitations, chest discomfort, shortness of breath Location: Chest Current Severity: Moderate Maximum Severity: Moderate Worsened by: None Relieved by: None Associated Symptoms: No other symptoms Narrative: Patient is a 48-year-old male with multiple medical problems who presents with palpitations. He states he had no symptoms when he went to bed. He did report chest discomfort 2 days ago. He states he had a cardiac cath 1 year ago and his coronaries were normal. He is on Eliquis for atrial fibrillation. Prehospital EKG performed by EMS revealed a heart rate of 150 with narrow complex. In light of history with A. fib EKG consistent with a flutter. Prior similar symptoms: Yes Recent Illness/Hospitalization: No Past Medical History - Allergies and Home Meds Allergies/Adverse Reactions: Allergies clonidine Allergy (Intermediate, Verified 12/12/18 11:01) rash levofloxacin [From Levaquin] Allergy (Verified 12/12/18 11:01) Rash Penicillins Allergy (Verified 12/12/18 11:01) Hives bupropion Adverse Reaction (Intermediate, Verified 12/12/18 11:01) vomiting celecoxib [From Celebrex] Adverse Reaction (Intermediate, Verified 12/12/18 11:01) vomiting eletriptan Adverse Reaction (Intermediate, Verified 12/12/18 11:01) Vomiting topiramate [From Topamax] Adverse Reaction (Intermediate, Verified 12/12/18 11:01) vomiting hydrocodone bitartrate [From Vicodin] Adverse Reaction (Verified 12/12/18 11:01) Nausea ketorolac [From Toradol] Adverse Reaction (Verified 12/12/18 11:01) Other PT ON BLOOD THINNERS, PER DR VICTOR HAVE TORADOL Primary Care Physician: Ar Mckeon MD [Primary Care Provider] - Past Medical History: - - Atrial fibrillation, supraventricular tachycardia, hypertension, anxiety, paroxysmal benign positional vertigo, hypercholesterolemia, hypertension, obstructive sleep apnea Surgical History: - - Left heart catheterization 1 year ago and ablation Lives: Alone Smoking Status: Never smoker Alcohol: None Drugs: None - Family History Maternal Family History: Family History (Last Reviewed 06/27/18 @ 08:50 by Brittani Qureshi) Brother Hypertension Mother Heart disease Colon cancer Sister Diabetes Sister Diabetes Sister Diabetes Family History: Reports: - - Maternal family history of DM, Colon CA, Valvular Heart Disease. Paternal Family History: Family History (Last Reviewed 06/27/18 @ 08:50 by Brittani Qureshi) Brother Hypertension Mother Heart disease Colon cancer Sister Diabetes Sister Diabetes Sister Diabetes Family History: Reports: - - Paternal family history of skin CA. Review of Systems General: Denies: Chills, Fever, Sweats Eyes: Denies: Visual changes - bilaterally, Diplopia ENT: Denies: Rhinorrhea, Sore throat Cardiovascular: Reports: Chest pain, Palpitations, - - Patient states that the discomfort is worse than prior episodes. He also states he had chest discomfort 2 days ago. She duration less than 15 minutes without radiation or associated symptoms. Respiratory: Denies: Dyspnea, Cough, Dyspnea on exertion, Orthopnea, Paroxysmal nocturnal dyspnea Gastrointestinal: Denies: Abdominal pain, Nausea, Vomiting, Diarrhea, Melena, Hematochezia Genitourinary: Denies: Dysuria, Hematuria, Frequency Musculoskeletal: Denies: Back pain, Extremity Pain Skin: Denies: Rash, Wounds Neurological: Denies: Headache, Weakness, Numbness Hematologic: Denies: Easy bruising, Easy bleeding Allergy: Denies: Uticaria, Swelling of the mouth Physical Exam Vital Signs/Narrative: Vital Signs Temp Pulse Pulse Pulse Pulse Resp Resp 12/12/18 11:09 170 H 92 89 28 H 12/12/18 11:08 171 H 24 H 12/12/18 11:02 165 H 33 H 12/12/18 10:56 97.7 F L 168 H 24 H Resp Resp BP BP BP BP Pulse Ox 12/12/18 11:09 10 L 18 134/114 H 126/95 H 114/91 H 12/12/18 11:08 134/114 H 95 12/12/18 11:02 97 12/12/18 10:56 151/93 H 98 Inital Vital Signs reviewed: Yes General: Well nourished, Well developed, Obese Head: Normocephalic, Atraumatic Eyes: Perrl, EOMI. Negative for: Pale conjunctiva, Scleral icterus ENT: Moist mucous membranes, No rhinorrhea Neck: Supple, Nontender, No lymphadenopathy - Yes, No JVD Cardiovascular: Regular rate, Normal S1, Normal S2 - Yes, Tachycardia Respiratory: No distress, CTA bilaterally, Chest nontender Abdomen: Soft, Nontender, Nondistended, Normal bowel sounds, No masses. Negative for: Hepatomegaly, Splenomegaly - I do not disagree Rectal: Deferred Back: Nontender Extremities: Nontender, No edema. Negative for: Tenderness, Calf Tenderness Skin: Normal color, No rash Neurological: Alert, Oriented x3, Cranial nerves II-XII grossly intact, Normal Strength, Normal Sensation Psychological: - - Patient appears anxious Diagnostic/Tx/Re-eval Chest X-Ray - ED: 1 View, Normal, Heart, Lungs, Mediastinum, Bony Structures, No Acute Disease, - - Possible linear atelectasis bilaterally - Rhythm Strip Rhythm Strip: Narrow complex tachycardia reentry versus a flutter Rate: 155 Ectopy: None - EKG Initial EKG Interpretation: Atrial Flutter, Non-Specific ST Changes, - - Heart rate is 165. NE interval, QRS duration and axis are normal Prior: Changed Follow-up EKG Interpretation: Sinus Rhythm, - - Rate is 100 and EKG is normal. No standard instances Route: 80 mg of propofol administered by ut - Medical Decision Making Patient received 6 mg of adenosine and 12 mg then see prior to arrival. With history of A. fib as well as SVT will cardiovert. Patient states he has not eaten or had anything to drink since last evening and he is present on [facility]. He has been cardioverted 6 prior times. The most recent 6 months ago. He states he had a cardiac cath 1 year ago by breakdown man at [facility] that was reported as normal. Because patient complained of pain 2 days ago troponin was obtained. Electric panel was obtained as well as CBC. Because patient complained of dyspnea will obtain chest x-ray. Patient was consented for deep sedation with propofol. He has no allergy to soy products or egg products. He has had no prior complication. He does report history obstructive sleep apnea. Patient was given opportunity ask questions. None were asked. Proceeded with deep sedation and cardioversion Head of the bed was elevated to 30 degrees. He received a total of 80 mg of propofol. He was successfully cardioverted with 100 J. EKG reveals sinus rhythm with no ischemic changes. Total time of procedure 7 minutes Patient was informed of his results and need to follow-up with breakdown man. Procedures Procedure(s): Deep sedation and successful cardioversion as documented in the medical decision making portion of the chart. Patient had no complications and tolerated procedure well. There was no episode of hemodynamic instability or hypoxia. ED Disposition - Plan for ED Patient: Disposition: Home or Assisted Living Diagnosis: SVT (supraventricular tachycardia) Instructions: ED Tachycardia Pat PSVT Referrals: Ar Mckeon MD [Primary Care Provider] - Additional Instructions: Keep appointment with your breakdown man Dr. Valencia
[2018-12-12 11:42] LABS: Absolute Lymphocyte Count 2.68 X10^3/ul (0.83-4.51); Absolute Neutrophil Count 5.5 X10^3/uL (2.0-7.7); Basophil# 0.04 X10^3/uL; Basophil% 0.4 % (0-1); Eosinophil# 0.22 X10^3/uL; Eosinophils% 2.4 % (0-5); Hematocrit 44.5 % (40-54); Hemoglobin 13.7 g/dl (13.0-16.5); Lymphocyte # 2.68 X10^3/ul (4.0); Lymphocyte % 28.7 % (19-41); Mean Corp Hgb Conc 30.8 g/gl (32-36); Mean Corpuscular Hgb 23.7 pg (27.0-32.0); Mean Corpuscular Volume 77.1 fL (80-94); Mean Platelet Vol. 8.9 fl (6.2-12.0); Monocyte# 0.91 X10^3/uL; Monocyte% 9.8 % (0-10); Neutrophil # 5.46 X10^3/uL (2.7-7.7); Neutrophil % 58.5 % (47-70); Platelet Count 437 K/mm3 (150-450); RBC Distribution Width CV 14.9 % (11.6-14.6); RBC Distribution Width SD 41.2 fl (35.1-43.9); Red Blood Count 5.77 M/mm3 (4.6-6.2); White Blood Count 9.3 K/mm3 (4.4-11.0)
[2018-12-12 11:43] LABS: POSITIVE COUNT NO; POSITIVE DIFFERENTIAL NO; POSITIVE MORPHOLOGY NO
[2018-12-12 11:53] LABS: Anion Gap 8 (5-15); BUN 13 mg/dL (7-18); BUN/Creat Ratio 13.4 RATIO (10-20); Chloride 108 mmol/L (98-107); Creatinine, Serum 0.97 mg/dL (0.70-1.30); EST Glomerular Filtration Rate 87 mL/min (>60); Est Glom Filt Rate - Afr Amer 106 mL/min (>60); Estimated Creatinine Clearance 99.19 ml/min; Glucose 83 mg/dL (74-106); Potassium 3.8 mmol/L (3.5-5.1); Sodium Level 139 mmol/L (136-145)
[2018-12-12] MEDS: Morphine 2 MG/ML Syringe IV (12:52)
== END 2018-12-12 14:02 | disposition home or self-care (01) ==
PROVIDERS: Emergency Provider Emergency Medicine; Family Provider Family Medicine; PCP Family Medicine
DX: I47.1 Supraventricular tachycardia (principal); I48.91 Unspecified atrial fibrillation; I10 Essential (primary) hypertension; E78.00 Pure hypercholesterolemia, unspecified; H81.10 Benign paroxysmal vertigo, unspecified ear; F41.9 Anxiety disorder, unspecified; E66.9 Obesity, unspecified; Z79.01 Long term (current) use of anticoagulants; Z79.899 Other long term (current) drug therapy
CPT/HCPCS: 92960; 71045; 80048; 85025; 93005; 96361; 96374; 96375; 96376; 99285; J7030; A4216; J0153; J2405

== ENCOUNTER 2018-12-13 18:41 | Inpatient (IN) | payer MEDICARE, SELFPAY ==
[2018-12-12 10:56] VITALS: BMI 33.3
[2018-12-13] VITALS (10 sets, daily range): BP systolic 129–142; BP diastolic 90–109; PULSE 79–94; RESP 14–20; TEMP 36.4; O2SAT 98–100; BMI 32.1
--- NOTE | 2018-12-13 18:50 | CT_ITS ---
STUDY: CT BRAIN WITHOUT CONTRAST REASON FOR EXAM: Male, 48 years old. Dizziness, right-sided headache. RADIATION DOSAGE (If Supplied By Facility): CTDIvol = ( 44.99 ) mGy, DLP = ( 796.11 ) mGycm TECHNIQUE: Transaxial CT imaging of the brain was performed without administration of intravenous contrast material. Individualized dose optimization techniques were used for this CT. COMPARISON: 10/27/2018. FINDINGS: Normal soft tissue structures. Normal calvarium. Normal size ventricles and extra-axial spaces for the patient's age. Normal white matter tracts of the cerebral hemispheres. Normal basal ganglia and thalami. Normal brainstem. Normal cerebellum. There is no intracranial hemorrhage. There are no findings of an acute ischemic infarction. There is a moderate retention cyst in the right maxillary sinus, unchanged compared to the prior study. There is mild mucosal thickening in the right maxillary sinus. Demonstrated sinuses are otherwise clear. CT/Brain/Head without Contrast IMPRESSION: 1. No intracranial findings. 2. Chronic right maxillary sinusitis. Electronically Signed: Di Ryan MD at 19:51 EST Tel , Service support ,
--- NOTE | 2018-12-13 18:50 | RAD_ITS ---
STUDY: X-RAY CHEST REASON FOR EXAM: Male, 48 years old. Dizziness. TECHNIQUE: AP chest. COMPARISON: 12/12/2018. 11/24/2018. CTA chest 10/27/2018. FINDINGS: The lungs are clear and expanded. There is no demonstrated pleural abnormality. Normal size heart. Normal mediastinum and ruben. The mediastinum is widened, without significant change from recent studies. Soft tissues and bony structures are unremarkable. RAD/Chest 1 View IMPRESSION: Widened mediastinum is consistent with previously documented thoracic aortic aneurysm. No acute findings. Electronically Signed: Di Ryan MD at 21:56 EST Tel , Service support ,
--- NOTE | 2018-12-13 18:50 | EKG12_ITS ---
Test Reason : DIZZINESS, CP Blood Pressure : / mmHG Vent. Rate : 078 BPM Atrial Rate : 078 BPM P-R Int : 150 ms QRS Dur : 082 ms QT Int : 376 ms P-R-T Axes : -01 009 021 degrees QTc Int : 428 ms Normal sinus rhythm Normal ECG Confirmed by NABILA CONNOR, JEANCARLOS ([id number]), photo editor CRISTIAN KAUR ([id number]) on 12/16/2018 4:54:14 PM Referred By: Jayden Mike Confirmed By:JEANCARLOS DAHL MD
--- NOTE | 2018-12-13 19:01 | ED.DCSUM_ITS ---
- ER Visit Summary Date of Service: 12/13/18 Chief Complaint: Dizziness History of Present Illness: The patient is a 48 M with history of atrial fibrillation, fully anticoagulated on Xarelto, and prior TIA presents to the emergency department with dizziness. Patient was actually here yesterday. At that time, he was in SVT. He underwent cardioversion. He states that since the cardioversion, he has had mild headache, dizziness, and sensation of motion. His also states that he had some trouble getting his words out. He does have history of prior TIA that has presented similar. He states he also has a history of vertigo but this feels different. He denies fevers. He denies chest pain. He said no chills or sweats. He denies any trauma. He states his been compliant with all of his medications. Physical Examination: Vital signs reviewed General: Well-nourished, well-developed Head: Normocephalic, atraumatic Eyes: Pupils equal and reactive, extraocular muscles intact Neck, supple, no lymphadenopathy Heart: Regular rate and rhythm Respiratory: No distress, clear bilaterally Abdomen: Soft, nontender, nondistended, no peritoneal signs Back: Nontender Extremities: Nontender, no edema, no cords Skin: Normal color no rash Neuro: Alert and oriented, no focal or lateralizing deficits Test Results: [] Emergency Department Course and Treatment: The patient's NIH is 0. However, he does have rapid beating nystagmus. I do feel that his symptoms are consistent mostly with vertigo, however his also states that he has been having trouble getting his words out. This happened after he was cardioverted. He has been compliant with his anticoagulants. He does not meet any criteria for stroke team and is outside the window for any TPA along with his NIH being 0. Head CT was obtained was unremarkable. Screening labs are unremarkable. Patient had little change with Zofran. Given the onset of his symptoms after cardioversion, history of prior TIA, and his reported dysarthria I do feel that the most prudent thing would be to keep him for MRI. Patient was discussed with the hospitalist. Treatment Plan: [] Disposition: Admission Impression: 1. Dizziness 2. Dysarthria This note was generated with [employer] dictation software. It may contain incorrect words, spelling, and punctuation that were not noted in review of the chart prior to signing ED Disposition - Plan for ED Patient: Referrals: Ar Mckeon MD [Primary Care Provider] -
[2018-12-13 19:19] LABS: Absolute Neutrophil Count 5.7 X10^3/uL (2.0-7.7); Basophil# 0.05 X10^3/uL; Basophil% 0.5 % (0-1); Eosinophil# 0.21 X10^3/uL; Eosinophils% 2.2 % (0-5); Hematocrit 43.2 % (40-54); Hemoglobin 13.3 g/dl (13.0-16.5); Lymphocyte % 28.8 % (19-41); Mean Corp Hgb Conc 30.8 g/gl (32-36); Mean Corpuscular Hgb 24.1 pg (27.0-32.0); Mean Corpuscular Volume 78.3 fL (80-94); Mean Platelet Vol. 9.1 fl (6.2-12.0); Monocyte# 0.67 X10^3/uL; Monocyte% 7.2 % (0-10); Neutrophil # 5.71 X10^3/uL (2.7-7.7); POSITIVE COUNT NO; POSITIVE DIFFERENTIAL NO; POSITIVE MORPHOLOGY NO; Platelet Count 410 K/mm3 (150-450); RBC Distribution Width CV 14.4 % (11.6-14.6); RBC Distribution Width SD 40.7 fl (35.1-43.9); Red Blood Count 5.52 M/mm3 (4.6-6.2); White Blood Count 9.4 K/mm3 (4.4-11.0)
[2018-12-13 19:20] LABS: International Normalized Ratio 0.9
[2018-12-13 19:21] LABS: Partial Thromboplast Time 28.6 Seconds (24.1-36.2)
[2018-12-13 19:28] LABS: Anion Gap 8 (5-15); BUN 16 mg/dL (7-18); BUN/Creat Ratio 16.7 RATIO (10-20); Calcium,Total 8.9 mg/dL (8.5-10.1); Chloride 106 mmol/L (98-107); Creatinine, Serum 0.96 mg/dL (0.70-1.30); EST Glomerular Filtration Rate 89 mL/min (>60); Est Glom Filt Rate - Afr Amer 107 mL/min (>60); Estimated Creatinine Clearance 100.23 ml/min; Glucose 79 mg/dL (74-106); Potassium 3.5 mmol/L (3.5-5.1); Sodium Level 137 mmol/L (136-145)
[2018-12-13] MEDS: LORazepam 2 MG/ML Syringe 1 MG IV (20:04)
--- NOTE | 2018-12-13 20:06 | PCM.HP.STD ---
Problem List (1) Vertigo Status: Acute (2) Stroke-like symptoms Status: Acute History of Present Illness Date of Admission: 12/13/18 Chief Complaint: Vertigo The patient is a 48 year old M with a significant history of paroxysmal A. fib; SVT; BPPV who was seen at the emergency department 1 day before presentation with SVT but failed adenosine therapy and was subsequently cardioverted who presents today (12/13/2018) with lightheadedness and vertigo that started after his cardioversion (12/12/2018). Also, his fianc?e reported that patient has had some difficulty bringing his words out. At emergency department CT of the head was unremarkable. Emergency department doctor reported nystagmus to the left side of the eye. Associated with her symptoms is left-sided chest pain which has been going on for some time that his family attributes to a thoracic aneurysm for which he has a cardiac cath scheduled on December 31 2018 after which there may be an open heart surgery to fix the thoracic aneurysm which patient reports at 4.9 cm. The patient reports pain at his entire left side. Further, he has nausea and vomiting. He has a running nose and he has been sneezing. Three to four days ago he was at [facility] because he felt faint. Past Medical History Past Medical History (Chronic Problems): Chronic Problems (Last Reviewed 12/13/18 @ 21:07 by Jayden Mike MD) Essential hypertension (Chronic) Atrial fibrillation and flutter (Chronic) SVT (supraventricular tachycardia) (Chronic) LORETTA (obstructive sleep apnea) (Chronic) Atherosclerotic heart disease of [place] coronary artery without angina pectoris (Chronic) History of left heart catheterization (Chronic) 11/09/2016 @ [facility], per Dr. Cory Harley: normal coronaries 04/07/[address] [facility] per Dr. Harris: normal coronaries Nephrolithiasis (Chronic) Anxiety (Chronic) PAF (paroxysmal atrial fibrillation) (Chronic) GERD (gastroesophageal reflux disease) (Chronic) Obesity (BMI 30-39.9) (Chronic) BPPV (benign paroxysmal positional vertigo) (Chronic) HLD (hyperlipidemia) (Chronic) Thoracic aortic aneurysm without rupture (Chronic) Medical History: Medical History (Last Reviewed 12/13/18 @ 21:07 by Jayden Mike MD) SVT (supraventricular tachycardia) (Chronic) I47.1 LORETTA (obstructive sleep apnea) (Chronic) G47.33 Atherosclerotic heart disease of [place] coronary artery without angina pectoris (Chronic) I25.10 Nephrolithiasis (Chronic) N20.0 Anxiety (Chronic) F41.9 PAF (paroxysmal atrial fibrillation) (Chronic) I48.0 GERD (gastroesophageal reflux disease) (Chronic) K21.9 Obesity (BMI 30-39.9) (Chronic) E66.9 BPPV (benign paroxysmal positional vertigo) (Chronic) H81.10 HLD (hyperlipidemia) (Chronic) E78.5 Thoracic aortic aneurysm without rupture (Chronic) I71.2 Allergies clonidine Allergy (Intermediate, Verified 12/12/18 11:01) rash levofloxacin [From Levaquin] Allergy (Verified 12/12/18 11:01) Rash Penicillins Allergy (Verified 12/12/18 11:01) Hives bupropion Adverse Reaction (Intermediate, Verified 12/12/18 11:01) vomiting celecoxib [From Celebrex] Adverse Reaction (Intermediate, Verified 12/12/18 11:01) vomiting eletriptan Adverse Reaction (Intermediate, Verified 12/12/18 11:01) Vomiting topiramate [From Topamax] Adverse Reaction (Intermediate, Verified 12/12/18 11:01) vomiting hydrocodone bitartrate [From Vicodin] Adverse Reaction (Verified 12/12/18 11:01) Nausea ketorolac [From Toradol] Adverse Reaction (Verified 12/12/18 11:01) Other PT ON BLOOD THINNERS, PER DR KAYLEIGH LOREDO TORADOL Home Medications: Ambulatory Orders Medication Instructions Recorded Pantoprazole Sodium [Protonix] 40 mg PO DAILY 04/22/16 Albuterol Inhaler [Ventolin Hfa] 1 - 2 puff INHALATION Q4H PRN PRN 07/15/17 #1 inhaler Apixaban [Eliquis] 5 mg PO BID 09/21/17 Sotalol Hydrochloride [Betapace 120 mg PO BID #90 tab 05/18/18 (Beta Linda)] meclizine 12.5 mg tablet 12.5 mg PO BID PRN #60 tab 07/03/18 Escitalopram Oxalate [Lexapro] 15 mg PO DAILY 08/31/18 Fluticasone 0.05% [Flonase Nasal 1 spray NASAL DAILY #1 nasal.sry 08/31/18 Rose] Metoprolol Succinate 25 mg PO DAILY 08/31/18 Promethazine HCl 25 mg PO DAILY 08/31/18 Ranolazine [Ranexa] 500 mg PO BID 08/31/18 lisinopril 20 mg tablet 20 mg PO DAILY #90 tab 11/03/18 Amlodipine Besylate [Norvasc] 5 mg PO BID 11/06/18 Nitroglycerin [Nitrostat] 0.4 mg SUBLINGUAL Q5M PRN 11/06/18 Atorvastatin Calcium [Lipitor] 20 mg PO DAILY 11/21/18 Ondansetron [Zofran Odt] 4 mg PO Q8H PRN PRN #10 tablet 11/24/18 Hydrocodone/Acetaminophen [[place] 1 each PO DAILY 12/03/18 5-325 Tablet] Surgical History: Surgical History (Last Reviewed 12/13/18 @ 21:07 by Jayden Mike MD) History of left heart catheterization (Chronic) Z98.890 11/09/2016 @ [facility], per Dr. Cory Harley: normal coronaries 04/07/[address] [facility] per Dr. Harris: normal coronaries History of cardiac radiofrequency ablation (Resolved) Z98.890 10/09/[address] [facility] [address] Andrew laser lithotripsy Onset Date: ~06/2018 H/O arthroscopic knee surgery Z98.890 History of back surgery Z98.890 History of right knee surgery Z98.890 Surgical History: - - Left heart catheterization 1 year ago and ablation Lives: Spouse/ Significant Other Smoking Status: Never smoker Alcohol: None - *Family History Maternal Family History: Family History (Last Reviewed 12/13/18 @ 21:07 by Jayden Mike MD) Brother Hypertension Mother Heart disease Colon cancer Sister Diabetes Sister Diabetes Sister Diabetes History Items: - - Maternal family history of DM, Colon CA, Valvular Heart Disease. Paternal Family History: Family History (Last Reviewed 12/13/18 @ 21:07 by Jayden Mike MD) Brother Hypertension Mother Heart disease Colon cancer Sister Diabetes Sister Diabetes Sister Diabetes History Items: - - Paternal family history of skin CA. Review of Systems Constitutional: Denies: Chills, Fever, Weight Change HEENT: Reports: Sinus Drainage. Denies: Head Aches, Sinus Congestion Cardiovascular: Reports: Chest Pain. Denies: Palpitations Respiratory: Denies: Cough, Shortness of breath at rest, Sputum production Gastrointestinal: Denies: Abdominal Pain, Nausea, Vomiting Genitourinary: Denies: Dysuria Musculoskeletal: Reports: Arm Pain - Left, Leg Pain - Left side. Denies: Joint Pain, Joint Tenderness Skin: Denies: Rash, Wounds Neurological: Reports: Balance problems. Denies: Focal weakness, Numbness, Tingling Psychiatric: Denies: Anxiety, Depression, Homicidal Ideations, Suicidal Ideations Hematologic/ Lymphatic: Denies: Easy Bruising, Easy Bleeding VTE Information - Inpt Only VTE Present on Admission: No VTE Mechan Device Prophylaxis: None VTE Pharm Prophylaxis ordered?: No Reason prophylaxis not ordered:: Treatment Not Indicated - We will continue home Eliquis for A. fib. Patient Problems: Active and Suspected Problems (Last Reviewed 12/13/18 @ 21:07 by Jayden Mike MD) Vertigo (Acute) Stroke-like symptoms (Acute) - Physical Exam General: Alert, Oriented x3, Cooperative HEENT: Atraumatic, PERRLA, Normocephalic, - - Ocular eye movements with nystagmus of the left eye Neck: Supple, No JVD, Negative Carotid Bruits Lungs: Clear to auscultation, Normal air movement Cardiovascular: Regular rate, No murmurs Abdomen: Bowel Sounds Present, Soft, Non Tender Extremities: No edema, Capillary Refill Less than 3 Seconds Skin: No rashes, No breakdown Musculoskeletal: No Tenderness to Palpation of Joints or Extremities Neurological: Neuro grossly intact - Except with nystagmus on the left eye but Lori-Hallpike maneuver was negative. Patient wears hearing aids. Psych/Mental Status: Normal Affect, Appropriate Vital Signs Temp Pulse Resp BP Pulse Ox 97.5 F L 83 14 133/96 H 98 12/13/18 18:44 12/13/18 19:09 12/13/18 19:09 12/13/18 19:09 12/13/18 19:09 Oxygen Delivery Method Room Air Weight: 104.326 kg Body Mass Index (BMI) 32.1 Finger Stick Blood Glucose 95 Laboratory Tests Past 24 Hrs 12/13/18 12/13/18 12/13/18 19:00 19:00 19:00 WBC 9.4 RBC 5.52 Hgb 13.3 Hct 43.2 MCV 78.3 L MCH 24.1 L MCHC 30.8 L RDW 14.4 RDW Differential 40.7 Plt Count 410 MPV 9.1 Immature Gran % (Auto) 0.300 Neut % (Auto) 61.0 Lymph % (Auto) 28.8 [place] % (Auto) 7.2 Eos % (Auto) 2.2 Baso % (Auto) 0.5 Absolute Neuts (auto) 5.7 Absolute Lymphs (auto) 2.70 Total Counted Not Reportable PT 12.0 INR 0.9 APTT 28.6 Sodium 137 Potassium 3.5 Chloride 106 Carbon Dioxide 23.0 Anion Gap 8 BUN 16 Creatinine 0.96 Estim Creat Clear Calc 100.23 Est GFR (MDRD) Af Amer 107 Est GFR (MDRD) Non-Af 89 BUN/Creatinine Ratio 16.7 Glucose 79 Calcium 8.9 Troponin I < 0.015 Assessment/Plan All Active Problems (Last Reviewed 12/13/18 @ 21:07 by Jayden Mike MD) Vertigo (Acute) Stroke-like symptoms (Acute) History of cardiac radiofrequency ablation (Resolved) Double vision (Resolved) The patient is a 48-year-old male with a significant history of proximal A. fib; SVT; BPPV who was seen at the emergency department 1 day before presentation with SVT but failed adenosine therapy and was subsequently cardioverted now presenting with dizziness and dysarthria. Strokelike symptoms NIH at emergency department was 0. Blood glucose was unremarkable. CT of the head did not show any acute pathology. -Check Lipid level Physical therapy, occupational therapy and speech therapy to work with patient. N.p.o. until bedside swallow eval. Daily aspirin. At home patient is on Lipitor 20 mg daily. Will escalate Lipitor to high intensity statin of Lipitor 80 mg nightly Permissive hypertension. Control blood pressure with labetalol for systolic blood pressure of more than 220 or diastolic blood pressure of more than 120. Hold home blood pressure medications MRI/MRAM of head; brain; and neck. Echocardiogram ordered. Meclizine 25 mg 3 times daily scheduled. At home patient is on meclizine 12.5 mg twice daily as needed Consider Valium if his vertigo symptoms persist while on meclizine. PRN Zofran ordered. Phenergan IV as needed ordered Chest pain Chronic We will get an EKG. Aspirin 325 mg x1. Baby aspirin daily High intensity statin ordered Received Nitropaste at emergency department. Nitropaste continued. We will trend troponin. Home ranolazine continued Proximal A. fib Eliquis continued We will continue to Sotalol for A. fib especially as patient was cardioverted previous day for SVT Hypertension On admission his blood pressure was not within goal. However we will hold home blood pressure medication for permissive hypertension for probable stroke. At home patient takes lisinopril and metoprolol. However will continue continued Sotalol for A. fib. Trend blood pressures. Nasal congestion Flonase continued GERD Protonix continued Depression/Anxiety Escitalopram continued DVT prophylaxis Not indicated in the setting of patient receiving Eliquis for A. fib. Eliquis continued. Code Visit OBSV E&M: 72835 Initial observation care L3
[2018-12-13] MEDS: Nitroglycerin Oint 1 INCH PACKET TRANSDERM. (20:38)
--- NOTE | 2018-12-13 21:00 | ECHOCS_ITS ---
Reason For Study: CVA Procedure This was a 2D Doppler, Color Flow transthoracic echocardiogram. Contrast injection was performed. The exam was of poor technical quality due to poor acoustic windows. Exam performed portable in patient room. Left Ventricle Normal LV size. Left ventricular systolic function is normal. The estimated ejection fraction is 65 %. No evidence for diastolic dysfunction. No regional wall motion abnormalities noted. Right Ventricle Normal RV size. Normal systolic function. Atria Normal left atrium. Normal right atrium. Mitral Valve Normal mitral valve. Tricuspid Valve Normal tricuspid valve. Aortic Valve The aortic valve is not well visualized. Pulmonic Valve The pulmonic valve is not well visualized. Great Vessels Mildly dilated aortic root. The pulmonary artery is normal size. Normal inferior vena cava. Pericardium/Pleural No pericardial effusion. Medication Diluted definity 3ml given slow IV push to enhance endocardial definition. MMode/2D Measurements & Calculations LVIDd: 4.3 cm IVSd: 1.1 cm Ao root diam: 3.8 cm LVIDs: 2.6 cm LVPWd: 1.1 cm RVDd: 4.2 cm FS: 38.6 % LAV(MOD-bp): 63.1 ml LVAd ap4: 33.8 cm2 SV(MOD-sp4): 69.4 ml LAV(MOD-bp) Indexed: 28.3 ml/m2 EDV(MOD-sp4): 106.2 ml LAV(MOD-sp2): 73.7 ml EDV(sp4-el): 107.7 ml LAV(MOD-sp4): 52.6 ml LVAs ap4: 17.9 cm2 ESV(MOD-sp4): 36.9 ml ESV(sp4-el): 37.1 ml EF(MOD-sp4): 65.3 % EF(sp4-el): 65.5 % SV(sp4-el): 70.6 ml LA A4 area: 19.4 cm2 LA dimension(2D): 4.1 cm RA A4 area: 12.9 cm2 Time Measurements MV dec time: 0.26 sec Doppler Measurements & Calculations MV E max mikal: 80.9 cm/sec Lat Peak E' Mikal: 12.3 cm/sec Med Peak E' Mikal: 5.8 cm/sec MV A max mikal: 65.7 cm/sec E/E' lat: 6.6 E/E' med: 13.9 MV E/A: 1.2 Ao V2 max: 160.7 cm/sec LV V1 max: 150.7 cm/sec PA V2 max: 115.5 cm/sec Ao max P.3 mmHg LV V1 max P.1 mmHg Interpretation Summary Normal LV size. Left ventricular systolic function is normal. The estimated ejection fraction is 65 %. No evidence for diastolic dysfunction. Mildly dilated aortic root. Contrast injection was performed. Ordering Physician: Jayden Mike Referring Physician: MICHEAL WILKINSON Performed By: Jen Momin, JOCELYN, RVT
--- NOTE | 2018-12-13 21:00 | EKG12_ITS ---
Test Reason : CP Blood Pressure : / mmHG Vent. Rate : 078 BPM Atrial Rate : 078 BPM P-R Int : 164 ms QRS Dur : 086 ms QT Int : 384 ms P-R-T Axes : 007 007 020 degrees QTc Int : 437 ms Normal sinus rhythm Normal ECG Confirmed by INDER CONNOR, ASAEL ([id number]), editor at large CRISTIAN KAUR ([id number] on 12/17/2018 10:47:14 AM Referred By: Jayden Mike Confirmed By:ASAEL LOVING MD
[2018-12-14] VITALS (14 sets, daily range): BP systolic 103–133; BP diastolic 67–90; PULSE 75–94; RESP 16–18; TEMP 36.5–36.8; O2SAT 94–98; BMI 32.1
[2018-12-14] MEDS: proMETHazine 25 MG/ML Syringe 6.25 MG IV (02:03)
[2018-12-14] MEDS: 0.9% NaCl Peripheral Flush Adult/Peds IV ×2 (02:04→02:05)
[2018-12-14 07:40] LABS: Cholesterol 120 mg/dL (200); High Density Lipoprotein 32 mg/dL; Triglycerides 111 mg/dL; Very Low Density Lipoprotein 22 mg/dL (5-40)
[2018-12-14] MEDS: Acetaminophen 500 MG Tablet 1000 MG PO ×2 (11:57→23:13)
[2018-12-14] MEDS: Meclizine HCl 25 MG Tablet PO ×2 (11:57→22:04)
[2018-12-14] MEDS: Pantoprazole Sodium 40 MG Tablet PO (11:59)
[2018-12-14] MEDS: Fluticasone 0.05% 1 SPRAY NASAL.SRY NASAL (11:59)
[2018-12-14] MEDS: amLODIPine 5 MG Tablet PO ×2 (11:59→22:04)
[2018-12-14] MEDS: Ranolazine 500 MG Tablet PO ×2 (11:59→22:04)
[2018-12-14] MEDS: Escitalopram Oxalate 10 MG Tablet 15 MG PO (11:59)
[2018-12-14] MEDS: APIXABAN 5 MG TABLET PO ×2 (12:00→22:04)
[2018-12-14] MEDS: Aspirin 81 MG TAB.CHEW PO (12:00)
--- NOTE | 2018-12-14 13:34 | PN_ITS ---
<Thiago Hernández - Last Filed: 12/14/18 13:25> Patient Problems: Active and Suspected Problems (Last Reviewed 12/13/18 @ 21:07 by Jayden Mike MD) Vertigo (Acute) Stroke-like symptoms (Acute) Subjective: Pt has chronic vertigo but states the vertigo he is having is different than his norm. This continues with no relief. He takes meclizine at home. He follows ENT (Dr. Cisse). He continues to have ongoing whole body left sided pain. He has no focal weakness or slurred speech. He complains of his left elbow being swollen and painful and states this is why he came to the hospital. He sustained this wound striking his left elbow on a rail 6 months ago. - Physical Exam General: Alert, Oriented x3, Cooperative HEENT: Atraumatic, PERRLA, EOMI, Normocephalic Neck: Supple, No JVD, Negative Carotid Bruits Lungs: Clear to auscultation, Normal air movement Cardiovascular: Regular rate, No murmurs Abdomen: Bowel Sounds Present, Soft, Non Tender Extremities: No edema, Capillary Refill Less than 3 Seconds Skin: No rashes, No breakdown, Ulcer/ Wound Musculoskeletal: - - swelling and tenderness around the olecranon. left Neurological: Cranial nerves II-XII grossly intact Psych/Mental Status: Normal Affect, Appropriate, Alert and oriented to time, place, person, mood and affect Vital Signs Temp Pulse Resp BP Pulse Ox 97.7 F L 80 16 129/85 H 97 12/14/18 09:30 12/14/18 11:09 12/14/18 09:30 12/14/18 09:30 12/14/18 09:30 Oxygen Delivery Method Room Air Weight: 229 lb 15.074 oz Body Mass Index (BMI) 32.1 Finger Stick Blood Glucose 95 Intake and Output for Last 24 Hours 12/12/18 12/13/18 12/14/18 23:59 23:59 23:59 Output Total 200 / 200 200 / 200 Balance -200 / -200 -200 / -200 Laboratory Tests Past 24 Hrs 12/13/18 12/13/18 12/13/18 19:00 19:00 19:00 WBC 9.4 RBC 5.52 Hgb 13.3 Hct 43.2 MCV 78.3 L MCH 24.1 L MCHC 30.8 L RDW 14.4 RDW Differential 40.7 Plt Count 410 MPV 9.1 Immature Gran % (Auto) 0.300 Neut % (Auto) 61.0 Lymph % (Auto) 28.8 [place] % (Auto) 7.2 Eos % (Auto) 2.2 Baso % (Auto) 0.5 Absolute Neuts (auto) 5.7 Absolute Lymphs (auto) 2.70 Total Counted Not Reportable PT 12.0 INR 0.9 APTT 28.6 Sodium 137 Potassium 3.5 Chloride 106 Carbon Dioxide 23.0 Anion Gap 8 BUN 16 Creatinine 0.96 Estim Creat Clear Calc 100.23 Est GFR (MDRD) Af Amer 107 Est GFR (MDRD) Non-Af 89 BUN/Creatinine Ratio 16.7 Glucose 79 Calcium 8.9 Troponin I < 0.015 Triglycerides Cholesterol LDL Cholesterol VLDL Cholesterol HDL Cholesterol 12/13/18 12/14/18 12/14/18 22:06 01:11 05:58 WBC RBC Hgb Hct MCV MCH MCHC RDW RDW Differential Plt Count MPV Immature Gran % (Auto) Neut % (Auto) Lymph % (Auto) [place] % (Auto) Eos % (Auto) Baso % (Auto) Absolute Neuts (auto) Absolute Lymphs (auto) Total Counted PT INR APTT Sodium Potassium Chloride Carbon Dioxide Anion Gap BUN Creatinine Estim Creat Clear Calc Est GFR (MDRD) Af Amer Est GFR (MDRD) Non-Af BUN/Creatinine Ratio Glucose Calcium Troponin I < 0.015 < 0.015 Triglycerides 111 Cholesterol 120 LDL Cholesterol 66 VLDL Cholesterol 22 HDL Cholesterol 32 L Medical Necessity - Tobacco Use Smoking Status: Never smoker Assessment/Plan All Active Problems (Last Reviewed 12/13/18 @ 21:07 by Jayden Mike MD) Vertigo (Acute) Stroke-like symptoms (Acute) History of cardiac radiofrequency ablation (Resolved) Double vision (Resolved) 1. Stroke like symptoms, vertigo - prn meclizine / valium. CT brain chronic maxillary sinusitis. MRI brain with no stroke. MRA head neg. MRA neck pending. Echo will be done tomorrow. 2. Recent SVT (12/12/18) with cardioversion - no events on tele 3. Hx thoracic aortic aneurysm - CTA chest negative 4. Chest pain - prn SL nitro. EKG neg. heart cath 2018 normal coronaries. 6. Paroxysmal Afib - SR. Rate controlled. Eliquis. 7. GERD - protonix 8. HLD - statin 9. Hx Chronic vertigo - f/u Dr. Cisse. 10. Depression - lexapro 11. HTN - stable 11. Elbow pain - edema around olecranon. Add Ice. Get repeat xray. Injury 6 months prior. If changes consult ortho. DVT ppx: Quinn OATES planning: echo in AM This patient was seen by Thiago Hernández PA-C under the supervision of Doctor oDlly. <Boogie Alberto E - Last Filed: 12/14/18 14:01> - Physical Exam Vital Signs Temp Pulse Resp BP Pulse Ox 97.7 F L 80 16 129/85 H 97 12/14/18 09:30 12/14/18 11:09 12/14/18 09:30 12/14/18 09:30 12/14/18 09:30 Oxygen Delivery Method Room Air Weight: 229 lb 15.074 oz Body Mass Index (BMI) 32.1 Finger Stick Blood Glucose 95 Intake and Output for Last 24 Hours 12/12/18 12/13/18 12/14/18 23:59 23:59 23:59 Intake Total 480 / 480 Output Total 200 / 200 200 / 200 Balance -200 / -200 280 / 280 Laboratory Tests Past 24 Hrs 12/13/18 12/13/18 12/13/18 19:00 19:00 19:00 WBC 9.4 RBC 5.52 Hgb 13.3 Hct 43.2 MCV 78.3 L MCH 24.1 L MCHC 30.8 L RDW 14.4 RDW Differential 40.7 Plt Count 410 MPV 9.1 Immature Gran % (Auto) 0.300 Neut % (Auto) 61.0 Lymph % (Auto) 28.8 [place] % (Auto) 7.2 Eos % (Auto) 2.2 Baso % (Auto) 0.5 Absolute Neuts (auto) 5.7 Absolute Lymphs (auto) 2.70 Total Counted Not Reportable PT 12.0 INR 0.9 APTT 28.6 Sodium 137 Potassium 3.5 Chloride 106 Carbon Dioxide 23.0 Anion Gap 8 BUN 16 Creatinine 0.96 Estim Creat Clear Calc 100.23 Est GFR (MDRD) Af Amer 107 Est GFR (MDRD) Non-Af 89 BUN/Creatinine Ratio 16.7 Glucose 79 Calcium 8.9 Troponin I < 0.015 Triglycerides Cholesterol LDL Cholesterol VLDL Cholesterol HDL Cholesterol 12/13/18 12/14/18 12/14/18 22:06 01:11 05:58 WBC RBC Hgb Hct MCV MCH MCHC RDW RDW Differential Plt Count MPV Immature Gran % (Auto) Neut % (Auto) Lymph % (Auto) [place] % (Auto) Eos % (Auto) Baso % (Auto) Absolute Neuts (auto) Absolute Lymphs (auto) Total Counted PT INR APTT Sodium Potassium Chloride Carbon Dioxide Anion Gap BUN Creatinine Estim Creat Clear Calc Est GFR (MDRD) Af Amer Est GFR (MDRD) Non-Af BUN/Creatinine Ratio Glucose Calcium Troponin I < 0.015 < 0.015 Triglycerides 111 Cholesterol 120 LDL Cholesterol 66 VLDL Cholesterol 22 HDL Cholesterol 32 L Assessment/Plan Hospitalist note: I am seeing this patient in conjunction with Thiago Hernández . I independently seen and examined the patient. Progress note above, laboratory data and imaging studies reviewed and I concur with the above workup plan. Patient seen and examined today. He still complaining of dizziness, described as vertigo. He does have a history of bradycardia in the past but he is stating that his symptoms yesterday today are different. Also, he complained of left-sided chest pain and pain on the whole left side of his body. He complained of left elbow being swelling and painful, had elbow injury couple of months ago. His vital signs are stable. - Physical Exam General: Alert, Oriented x3, Cooperative, No apparent distress. HEENT: Atraumatic, PERRLA, EOMI. Neck: Supple, No JVD, Negative Carotid Bruits, Trachea Midline, Thyroid Normal. Lungs: Clear to auscultation, Normal air movement, No rhonchi, No wheeze, No rales. Cardiovascular: Regular rate, Regular Rhythm, Normal S1, Normal S2, PMI Normal. Abdomen: Bowel Sounds Present, Soft, Non Tender, Non-Distended, No Hepato- splenomegaly. Extremities: No clubbing, No cyanosis, No edema Skin: No rashes, No breakdown Neurological: Neuro grossly intact Vital Signs are stable. Assessment and plan: #1 strokelike symptoms: Vertigo, left side body tingling, pain. CT scan brain without acute stroke or infarction. MRI brain done this morning and revealed no acute intracranial bleed, mass or ischemia. MRA of the head and neck are pending. His vital signs are stable, blood pressure under control. He is on aspirin, Eliquis and statins. 2D echocardiogram ordered. Plan: Continue same treatment, awaiting 2D echocardiogram. #2 left-sided chest pain/left-sided body pain: Unclear W, CTA chest was negative for PE or dissection. EKG revealed normal sinus rhythm, no acute ischemic changes. Troponin is negative. At this time, I doubt cardiac etiology. Plan for pain control with sublingual nitro. #3 recent history of SVT: Status post cardioversion. At this time, he is in sinus rhythm, blood pressure and heart rate are controlled. #4 other chronic medical problems: Stable, continue current medications as above. This note was generated with [employer] software. It may contain incorrect words, spelling, and punctuation that were not noted in checking the note before signing. Code Visit OBSV E&M: 15491 Subsequent observation care L2
[2018-12-14] MEDS: diazePAM 2 MG Tablet PO ×2 (16:16→23:13)
--- NOTE | 2018-12-14 17:16 | RAD_ITS ---
STUDY: X-RAY - LEFT ELBOW REASON FOR EXAM: Male, 48 years old. Trauma 3 weeks ago. Edema posterior elbow. TECHNIQUE: 2 view(s) of the elbow. COMPARISON: December 03, 2018. FINDINGS: No significant change since the prior study. Deformity of the distal humerus compatible with an old fracture. Well-corticated densities anterior to the distal humerus on the lateral view unchanged. Small bony projection lateral aspect of the radial head unchanged. Humeral fat pads are nondisplaced. No significant soft tissue swelling. RAD/Elbow 2 Views IMPRESSION: Old posttraumatic and degenerative changes of the elbow. No evidence of acute fracture. No significant change since the prior study. Electronically Signed: Talat Lombardo MD at 4:14 EST , Service support ,
--- NOTE | 2018-12-14 20:42 | EKG12_ITS ---
Test Reason : Blood Pressure : / mmHG Vent. Rate : 096 BPM Atrial Rate : 096 BPM P-R Int : 166 ms QRS Dur : 084 ms QT Int : 346 ms P-R-T Axes : 026 021 026 degrees QTc Int : 437 ms Normal sinus rhythm Normal ECG Confirmed by INDER CONNOR, ASAEL ([id number]), slot editor CRISTIAN KAUR ([id number]) on 12/17/2018 10:43:51 AM Referred By: Jayden Mike Confirmed By:ASAEL LOVING MD
--- NOTE | 2018-12-14 21:00 | MRI_ITS ---
STUDY: MRA OF THE HEAD WITHOUT CONTRAST REASON FOR EXAM: Male, 48 years old. Dizziness and loss of balance. TECHNIQUE: 3-D [id number] (TOF) imaging was performed with MIPs. The study was performed unenhanced. COMPARISON: August 2017. FINDINGS: Normal bilateral petrous carotid arteries. Normal right cavernous carotid artery with a normal supraclinoid bifurcation. Normal left cavernous carotid artery with a normal supraclinoid bifurcation. Normal right A1 segments of the anterior cerebral artery. Normal left A1 segments of the anterior cerebral artery. Normal intact anterior communicating artery (ACOM). Normal bilateral A2 segments of the anterior cerebral arteries. Normal right M1 and M2 segments of the middle cerebral arteries, with a normal M1 bifurcation. Normal left M1 and M2 segments of the middle cerebral arteries, with a normal M1 bifurcation. There is a persistent origin of the right posterior cerebral artery with absence of the P1 segment of the right posterior cerebral artery. There is non-visualization of the left posterior communicating artery (PCOM). Diminutive left vertebral artery V4 segment is present. Normal basilar artery with a normal basilar bifurcation. The visualized bilateral superior cerebellar (SCA) arteries are normal. Normal bilateral P1, P2 and visualized P3 segments of the posterior cerebral arteries. There is no demonstrated aneurysm of the [place]. There is no major vessel occlusion or hemodynamically significant stenosis. There is no demonstrated abnormality of the visualized brain. MRI/MRA Head ONLY without Contrast IMPRESSION: No evidence of significant steno-occlusive disease or aneurysm. Electronically Signed: Dwight Avila DO at 11:18 EST , Service support ,
--- NOTE | 2018-12-14 21:00 | MRI_ITS ---
STUDY: MRA NECK WITH AND WITHOUT CONTRAST REASON FOR EXAM: Male, 48 years old. CVA, dizziness, loss of balance x 2 days. TECHNIQUE: 3-D [id number] (TOF) imaging was performed in an 1.5 T MRI scanner. Gadavist 10 IV was administered for the contrast enhanced images. COMPARISON: None. FINDINGS: RIGHT CAROTID ARTERIES: Normal right common carotid artery (CCA). Normal right common carotid bulb. There is moderate atherosclerotic plaque formation of the origin of the right internal carotid artery with an estimated stenosis of 50-69% stenosis. Normal visualized cervical portion of the right internal carotid artery. Normal origin of the right external carotid artery (ECA). LEFT CAROTID ARTERIES: Normal left common carotid artery (CCA). There is mild atherosclerotic plaque formation with minimal narrowing of the left carotid bulb. There is mild atherosclerotic plaque formation of the origin of the left internal carotid artery with less than 50% cross sectional diameter stenosis. Normal visualized cervical portion of the left internal carotid artery. Normal origin of the left external carotid artery (ECA). VERTEBRAL ARTERIES: Normal antegrade flow within the bilateral vertebral artery without a hemodynamically significant stenosis. There is possibly duplicated left vertebral artery. MRI/MRA Neck WITH and W/O Contrast IMPRESSION: 50-69% stenosis of the right ICA. 50% stenosis of the left ICA. Further evaluation with carotid sonography can be obtained. Electronically Signed: Melanie Giles MD at 15:20 EST Tel , Service support ,
--- NOTE | 2018-12-14 21:00 | MRI_ITS ---
STUDY: MRI BRAIN WITHOUT CONTRAST REASON FOR EXAM: Male, 48 years old. CVA, dizziness with loss of balance. TECHNIQUE: Standardized multiplanar fat and water weighted pulse sequences were obtained. COMPARISON: None. FINDINGS: Normal size of the ventricles and extra-axial spaces for the patient's age. Normal white matter tracts of the supratentorial brain. There is no evidence for recent intracranial ischemia or other cause of cytotoxic edema on diffusion weighted imaging (DWI). Normal T2* images of the brain without demonstrated susceptibility artifact. There is no demonstrated hemosiderin stain. Normal bilateral basal ganglia. Normal thalami. There is no extra-axial fluid accumulation. Normal flow voids within the major intracranial circulation suggesting patency by spin echo criteria. Normal sella turcica, pituitary gland, infundibular stalk, optic chiasm and hypothalamus. Normal tectal plate and pineal gland. Normal midbrain, ashia and medulla. Normal cerebellum. Normal basal cisterns. Normal bilateral temporal bones. Normal bilateral internal auditory canals. No demonstrated orbital abnormality, within the constraints of a routine brain study. Right maxillary mucosal thickening with inferior right mucoid retention cyst versus polyp present. Normal calvarium and skull base. Normal visualized soft tissue structures. Normal visualized upper cervical spine. MRI/Brain without Contrast IMPRESSION: No evidence of acute intracranial bleed, mass or ischemia. Electronically Signed: Dwight Avila DO at 11:13 EST , Service support ,
[2018-12-14] MEDS: Atorvastatin Calcium 80 MG Tablet PO (22:04)
--- NOTE | 2018-12-14 23:47 | CT_ITS ---
HISTORY: LT SIDED CHESTPAIN,DIZZINESS,PT HAD CARDIOVERSION DONE 12-12-2018HX:A-FIB,GERD,HLD,HTN,THORACIC ANEURYSM TECHNIQUE: Helically acquired images were obtained of the chest following IV contrast as per pulmonary angiogram protocol with 3D reconstructions. A radiation dose optimization technique was used for this scan. IV Contrast dosage and agent: 100 cc Isovue 370 contrast COMPARISON: 10/27/2018 FINDINGS: The main, segmental, and visualized subsegmental pulmonary arteries show normal opacification and appearance. No PE. Thoracic aorta is normal in caliber without aneurysm or dissection. No pericardial effusion. No lymphadenopathy. Left lower lobe not bronchiectasis and minor linear parenchymal scarring, unchanged. Right lower lobe mild bronchial dilatation. CT/CTA Chest W/WO Contrast IMPRESSION: 1. No PE, thoracic aortic dissection, or acute disease. 2. Left lower lobe mild bronchiectasis and minor scarring, unchanged. Individualized dose optimization techniques were used for this CT. at 0201 Reported and signed by: Isac Siddiqui MD Electronically Signed: Isac Siddiqui, at 2:00 EST Tel , Service support ,
[2018-12-15] VITALS (10 sets, daily range): BP systolic 114–138; BP diastolic 73–97; PULSE 80–110; RESP 16; TEMP 36.5–36.7; O2SAT 94–100
[2018-12-15] MEDS: diazePAM 2 MG Tablet PO ×2 (06:00→12:20)
[2018-12-15] MEDS: Fluticasone 0.05% 1 SPRAY NASAL.SRY NASAL (10:28)
[2018-12-15] MEDS: Acetaminophen 500 MG Tablet 1000 MG PO (10:30)
[2018-12-15] MEDS: amLODIPine 5 MG Tablet PO (10:30)
[2018-12-15] MEDS: Ranolazine 500 MG Tablet PO (10:30)
[2018-12-15] MEDS: Escitalopram Oxalate 10 MG Tablet 15 MG PO (10:31)
[2018-12-15] MEDS: APIXABAN 5 MG TABLET PO (10:31)
[2018-12-15] MEDS: Aspirin 81 MG TAB.CHEW PO (10:31)
[2018-12-15] MEDS: Pantoprazole Sodium 40 MG Tablet PO (10:32)
--- NOTE | 2018-12-15 11:07 | DCINST_ITS ---
- Discharge Diagnoses Current Active Problems: Current Active and Chronic Problems (Last Reviewed 12/13/18 @ 21:07 by Jayden Mike MD) Vertigo (Acute) Stroke-like symptoms (Acute) You will use the following diet at home:: Cardiac Your food should be the consistency of: Regular Your liquids should be the consistency of: Regular/Thin Discharge Activity: Return to Normal Activity Allergies/Adverse Reactions: Allergies clonidine Allergy (Intermediate, Verified 12/12/18 11:01) rash levofloxacin [From Levaquin] Allergy (Verified 12/12/18 11:01) Rash Penicillins Allergy (Verified 12/12/18 11:01) Hives bupropion Adverse Reaction (Intermediate, Verified 12/12/18 11:01) vomiting celecoxib [From Celebrex] Adverse Reaction (Intermediate, Verified 12/12/18 11:01) vomiting eletriptan Adverse Reaction (Intermediate, Verified 12/12/18 11:01) Vomiting topiramate [From Topamax] Adverse Reaction (Intermediate, Verified 12/12/18 11:01) vomiting hydrocodone bitartrate [From Vicodin] Adverse Reaction (Verified 12/12/18 11:01) Nausea ketorolac [From Toradol] Adverse Reaction (Verified 12/12/18 11:01) Other PT ON BLOOD THINNERS, PER DR VICTOR HAVE TORADOL Medications to take at Discharge Pantoprazole Sodium [Protonix] 40 mg PO DAILY 04/22/16 Albuterol Inhaler [Ventolin Hfa] 1 - 2 puff INHALATION Q4H PRN PRN #1 inhaler 07/15/17 Apixaban [Eliquis] 5 mg PO BID 09/21/17 meclizine 12.5 mg tablet 12.5 mg PO BID PRN #60 tab 07/03/18 Escitalopram Oxalate [Lexapro] 15 mg PO DAILY 08/31/18 Fluticasone 0.05% [Flonase Nasal [place]] 1 spray NASAL DAILY #1 nasal.sry 08/31/18 Metoprolol Succinate 25 mg PO DAILY 08/31/18 Promethazine HCl 25 mg PO DAILY 08/31/18 Ranolazine [Ranexa] 500 mg PO BID 08/31/18 lisinopril 20 mg tablet 20 mg PO DAILY #90 tab 11/03/18 Amlodipine Besylate [Norvasc] 5 mg PO BID 11/06/18 Nitroglycerin [Nitrostat] 0.4 mg SUBLINGUAL Q5M PRN 11/06/18 Atorvastatin Calcium [Lipitor] 20 mg PO DAILY 11/21/18 Ondansetron [Zofran Odt] 4 mg PO Q8H PRN PRN #10 tablet 11/24/18 Hydrocodone/Acetaminophen [[place] 5-325 Tablet] 1 each PO DAILY 12/03/18 Primary Care Physician: Ar Mckeon MD [Primary Care Provider] - Please follow up with your Primary Care Physician in: 1-2 weeks Test Results: Test results from this visit will be discussed in further detail at your follow- up appointment, if applicable. Please Follow Up With: Vidal Lucero MD When: 1-2 weeks Proposed Discharge Date: 12/15/18
--- NOTE | 2018-12-15 11:15 | CASEMGMT ---
Per Arron RAMIRES, he would like pt sent home with script for OP vestibular therapy. Script signed and faxed to [facility] at this time. Original to pt by Ivis WOOD CM. Joshua WOOD CM
--- NOTE | 2018-12-15 11:15 | CASEMGMT ---
RN CM Assessment Presentation: Lightheadedness, vertigo, difficulty with speech. Cardioversion on 12/12/18. Intro role of CM and purpose of RN CM assessment. Pt is able to participate in RN CM Assessment. PCP: Dr. Mckeon Preferred [facility]acy: [facility] Insurance: Medicare Prescription Benefit: yes Living Arrangements: lives independently with significant other, Erica Casanova Transportation: Pt drives. Discussed driving safety as pt continues to have dizziness. Pt states he can have someone drive him for f/u. DME: states he uses cane occasionally, has CPAP he thinks is from [facility], but denies oxygen. HHC: none DC PLAN: Anticipate Home on discharge. Vestibular Therapy script given to pt, faxed to [facility] and explained to pt.
--- NOTE | 2018-12-15 11:30 | EKG12_ITS ---
Test Reason : CP Blood Pressure : / mmHG Vent. Rate : 086 BPM Atrial Rate : 086 BPM P-R Int : 158 ms QRS Dur : 082 ms QT Int : 380 ms P-R-T Axes : 021 017 014 degrees QTc Int : 454 ms Normal sinus rhythm Normal ECG Confirmed by INDER CONNOR, ASAEL ([id number]), editor magazine CRISTIAN KAUR ([id number]) on 12/17/2018 10:54:15 AM Referred By: Jayden Mike Confirmed By:ASAEL LOVING MD
--- NOTE | 2018-12-15 11:51 | PCM.CONS.GEN ---
Problem List (1) Vertigo Status: Acute Reason for Consult Date of Consultation: 12/15/18 Reason for Consultation: dizziness History of Present Illness: The patient is a 48 year old M HTN, HLD, PAF on Eliquis, SVT, BPPV, LORETTA, H/O lower back surgery, obesity admitted with dizziness. Per patient he had SVT on Saturday (12/12/18) which was cardioverted following which he started having dizziness, which he described as spinning sensation, and also felt he had chest pain, per patient he has been seeing Dr. Cisse from ENT. Per documentation he was noted to have some nystagmus on admission. MRI brain done on this admission reported nothing acute, MRA head/neck reported to show Right ICA 50-69% stenosis and left ICA <50% stenosis. Per discussion with primary team patient had multiple recent admissions for similar complaints of dizziness at different hospitals (records not available) and patient also complaints of subjective mild left sided sensory loss. At present he denies any focal motor weakness, FANG, vision loss or speech disturbances. Denies any neck pain, new onset low back pain, radicular symptoms or urinary disturbances. [] Past Medical History Past Medical History (Chronic Problems): Chronic Problems (Last Reviewed 12/13/18 @ 21:07 by Jayden Mike MD) Essential hypertension (Chronic) Atrial fibrillation and flutter (Chronic) SVT (supraventricular tachycardia) (Chronic) LORETTA (obstructive sleep apnea) (Chronic) Atherosclerotic heart disease of [place] coronary artery without angina pectoris (Chronic) History of left heart catheterization (Chronic) 11/09/2016 @ [facility], per Dr. Cory Harley: normal coronaries 04/07/2018 @ [facility] per Dr. Harris: normal coronaries Nephrolithiasis (Chronic) Anxiety (Chronic) PAF (paroxysmal atrial fibrillation) (Chronic) GERD (gastroesophageal reflux disease) (Chronic) Obesity (BMI 30-39.9) (Chronic) BPPV (benign paroxysmal positional vertigo) (Chronic) HLD (hyperlipidemia) (Chronic) Thoracic aortic aneurysm without rupture (Chronic) Medical History: Medical History (Last Reviewed 12/13/18 @ 21:07 by Jayden Mike MD) SVT (supraventricular tachycardia) (Chronic) I47.1 LORETTA (obstructive sleep apnea) (Chronic) G47.33 Atherosclerotic heart disease of [place] coronary artery without angina pectoris (Chronic) I25.10 Nephrolithiasis (Chronic) N20.0 Anxiety (Chronic) F41.9 PAF (paroxysmal atrial fibrillation) (Chronic) I48.0 GERD (gastroesophageal reflux disease) (Chronic) K21.9 Obesity (BMI 30-39.9) (Chronic) E66.9 BPPV (benign paroxysmal positional vertigo) (Chronic) H81.10 HLD (hyperlipidemia) (Chronic) E78.5 Thoracic aortic aneurysm without rupture (Chronic) I71.2 Allergies clonidine Allergy (Intermediate, Verified 12/12/18 11:01) rash levofloxacin [From Levaquin] Allergy (Verified 12/12/18 11:01) Rash Penicillins Allergy (Verified 12/12/18 11:01) Hives bupropion Adverse Reaction (Intermediate, Verified 12/12/18 11:01) vomiting celecoxib [From Celebrex] Adverse Reaction (Intermediate, Verified 12/12/18 11:01) vomiting eletriptan Adverse Reaction (Intermediate, Verified 12/12/18 11:01) Vomiting topiramate [From Topamax] Adverse Reaction (Intermediate, Verified 12/12/18 11:01) vomiting hydrocodone bitartrate [From Vicodin] Adverse Reaction (Verified 12/12/18 11:01) Nausea ketorolac [From Toradol] Adverse Reaction (Verified 12/12/18 11:01) Other PT ON BLOOD THINNERS, PER DR KAYLEIGH LOREDO TORADOL Home Medications: Ambulatory Orders Medication Instructions Recorded Pantoprazole Sodium [Protonix] 40 mg PO DAILY 04/22/16 Albuterol Inhaler [Ventolin Hfa] 1 - 2 puff INHALATION Q4H PRN PRN 07/15/17 #1 inhaler Apixaban [Eliquis] 5 mg PO BID 09/21/17 meclizine 12.5 mg tablet 12.5 mg PO BID PRN #60 tab 07/03/18 Escitalopram Oxalate [Lexapro] 15 mg PO DAILY 08/31/18 Fluticasone 0.05% [Flonase Nasal 1 spray NASAL DAILY #1 nasal.sry 08/31/18 [place]] Metoprolol Succinate 25 mg PO DAILY 08/31/18 Promethazine HCl 25 mg PO DAILY 08/31/18 Ranolazine [Ranexa] 500 mg PO BID 08/31/18 lisinopril 20 mg tablet 20 mg PO DAILY #90 tab 11/03/18 Amlodipine Besylate [Norvasc] 5 mg PO BID 11/06/18 Nitroglycerin [Nitrostat] 0.4 mg SUBLINGUAL Q5M PRN 11/06/18 Atorvastatin Calcium [Lipitor] 20 mg PO DAILY 11/21/18 Ondansetron [Zofran Odt] 4 mg PO Q8H PRN PRN #10 tablet 11/24/18 Hydrocodone/Acetaminophen [[place] 1 each PO DAILY 12/03/18 5-325 Tablet] Surgical History: Surgical History (Last Reviewed 12/13/18 @ 21:07 by Jayden Mike MD) History of left heart catheterization (Chronic) Z98.890 11/09/2016 @ [facility], per Dr. Cory Harley: normal coronaries 04/07/2018 @ [facility] per Dr. Harris: normal coronaries History of cardiac radiofrequency ablation (Resolved) Z98.890 10/09/[address] [facility] [address] Andrew laser lithotripsy Onset Date: ~06/2018 H/O arthroscopic knee surgery Z98.890 History of back surgery Z98.890 History of right knee surgery Z98.890 Surgical History: - - Left heart catheterization 1 year ago and ablation Lives: Spouse/ Significant Other Smoking Status: Never smoker Alcohol: None Drugs: None - *Family History Maternal Family History: Family History (Last Reviewed 12/13/18 @ 21:07 by Jayden Mike MD) Brother Hypertension Mother Heart disease Colon cancer Sister Diabetes Sister Diabetes Sister Diabetes History Items: - - Maternal family history of DM, Colon CA, Valvular Heart Disease. Paternal Family History: Family History (Last Reviewed 12/13/18 @ 21:07 by Jayden Mike MD) Brother Hypertension Mother Heart disease Colon cancer Sister Diabetes Sister Diabetes Sister Diabetes History Items: - - Paternal family history of skin CA. Review of Systems Constitutional: Reports: - - complete ROS negative except as documented in HPI Patient Problems: Active and Suspected Problems (Last Reviewed 12/13/18 @ 21:07 by Jayden Mike MD) Vertigo (Acute) Stroke-like symptoms (Acute) - Physical Exam General: Alert HEENT: Normocephalic Neck: Supple Lungs: Normal air movement Cardiovascular: Normal S1, Normal S2 Abdomen: Bowel Sounds Present Extremities: No cyanosis Neurological: - - consious, alert, AoA x3, CN 2-12 grossly intact except subjective left facial mild decreased sensation, power 5/5 all 4 extremities, subjective mild left sided decreased sensation to light touch per patient, Reflexes + B/L B/S/T/k/A, gait deferred Psych/Mental Status: Normal Affect Vital Signs Temp Pulse Resp BP Pulse Ox 97.7 F L 105 H 16 138/88 H 94 12/15/18 11:32 12/15/18 11:32 12/15/18 11:32 12/15/18 11:32 12/15/18 11:32 Oxygen Delivery Method Room Air Weight: 104.3 kg Body Mass Index (BMI) 32.1 Finger Stick Blood Glucose 95 Intake and Output for Last 24 Hours 12/13/18 12/14/18 12/15/18 23:59 23:59 23:59 Intake Total 1280 / 1280 120 / 120 Output Total 200 / 200 200 / 200 Balance -200 / -200 1080 / 1080 120 / 120 Assessment/Plan All Active Problems (Last Reviewed 12/13/18 @ 21:07 by Jayden Mike MD) Vertigo (Acute) Stroke-like symptoms (Acute) History of cardiac radiofrequency ablation (Resolved) Double vision (Resolved) The patient is a 48 year old M HTN, HLD, PAF on Eliquis, SVT, BPPV, LORETTA, H/O lower back surgery, obesity admitted with dizziness. Per patient he had SVT on Saturday (12/12/18) which was cardioverted following which he started having dizziness, which he described as spinning sensation, and also felt he had chest pain, per patient he has been seeing Dr. Cisse from ENT. Per documentation he was noted to have some nystagmus on admission. MRI brain done on this admission reported nothing acute, MRA head/neck reported to show Right ICA 50-69% stenosis and left ICA <50% stenosis. Per discussion with primary team patient had multiple recent admissions for similar complaints of dizziness at different hospitals (records not available) and patient also complaints of subjective mild left sided sensory loss. At present he denies any focal motor weakness, FANG, vision loss or speech disturbances. Denies any neck pain, new onset low back pain, radicular symptoms or urinary disturbances. Impression Vertigo (likely peripheral etiology) Carotid stenosis-Right ICA 50-69% stenosis and left ICA <50% stenosis Plan -MRI brain no acute stroke -MRA head/neck- Right ICA 50-69% stenosis, left ICA < 50% stenosis -On Eliquis for Afib and on ASA. Bleeding risks discussed -On Lipitor 80 mg PO q hs -Vascular surgery consult -Vestibular therapy -ENT consult -Check orthostatic vitals. -Further medical management per hospitalist team -Follow up with Neurology as outpatient in 6 weeks. -Please call with questions if any -Thank you for allowing us to participate in patient's care and management Code Visit Inpatient E&M: 28840 Init Hosp L3
[2018-12-15] MEDS: Meclizine HCl 25 MG Tablet PO (14:27)
[2018-12-15] MEDS: Ondansetron 4 MG/2 ML Vial IV (14:29)
--- NOTE | 2018-12-15 15:39 | PCM.DC.SUM ---
<Thiago Hernández - Last Filed: 12/15/18 16:01> Discharge Date and Diagnosis - Problem List Patient Problems: Active and Suspected Problems (Last Reviewed 12/13/18 @ 21:07 by Jayden Mike MD) Vertigo (Acute) Stroke-like symptoms (Acute) Date of Admission: 12/13/18 Date of Discharge: 12/15/18 - Primary Discharge Diagnosis Active and Suspected Problems (Last Reviewed 12/13/18 @ 21:07 by Jayden Mike MD) Vertigo, BPPV Stroke ruled out Left sided whole body pain Chronic chest pain Recent SVT and Cardioversion LORETTA Anxiety PAF HLD Hx Thoracic aortic aneurysm Elbow edema, no acute process - Secondary Discharge Diagnosis Chronic Problems (Last Reviewed 12/13/18 @ 21:07 by Jayden Mike MD) Essential hypertension (Chronic) Atrial fibrillation and flutter (Chronic) SVT (supraventricular tachycardia) (Chronic) LORETTA (obstructive sleep apnea) (Chronic) Atherosclerotic heart disease of [place] coronary artery without angina pectoris (Chronic) History of left heart catheterization (Chronic) 11/09/2016 @ [facility], per Dr. Cory Harley: normal coronaries 04/07/2018 @ [facility] per Dr. Harris: normal coronaries Nephrolithiasis (Chronic) Anxiety (Chronic) PAF (paroxysmal atrial fibrillation) (Chronic) GERD (gastroesophageal reflux disease) (Chronic) Obesity (BMI 30-39.9) (Chronic) BPPV (benign paroxysmal positional vertigo) (Chronic) HLD (hyperlipidemia) (Chronic) Thoracic aortic aneurysm without rupture (Chronic) Hospital Course and Treatment Imaging Results: CT/Brain/Head without Contrast IMPRESSION: 1. No intracranial findings. 2. Chronic right maxillary sinusitis. RAD/Chest 1 View IMPRESSION: Widened mediastinum is consistent with previously documented thoracic aortic aneurysm. No acute findings. RAD/Elbow 2 Views IMPRESSION: Old posttraumatic and degenerative changes of the elbow. No evidence of acute fracture. No significant change since the prior study. CT/CTA Chest W/WO Contrast IMPRESSION: 1. No PE, thoracic aortic dissection, or acute disease. 2. Left lower lobe mild bronchiectasis and minor scarring, unchanged. Individualized dose optimization techniques were used for this CT. MRI/Brain without Contrast IMPRESSION: No evidence of acute intracranial bleed, mass or ischemia. MRI/MRA Head ONLY without Contrast IMPRESSION: No evidence of significant steno-occlusive disease or aneurysm. MRI/MRA Neck WITH and W/O Contrast IMPRESSION: 50-69% stenosis of the right ICA. 50% stenosis of the left ICA. Further evaluation with carotid sonography can be obtained. Consults: Pepe - Neuro Operations: None Procedures: 2-D Echocardiogram Summary of Care Provided: Hospital Course: The patient is a 48 year old M with pmhx of chronic BPPV, known thoracic aortic aneurysm, chronic chest pain 2/2 aneurysm, recent ER visit with SVT and cardioversion, hx paroxysmal Afib, HTN, GERD, Depression and anxiety, who presented to the ER 3 days after cardioversion with c/o dizziness. He had a negative CT brain, he did have lateral nystagmus on exam, and the patient insisted that his vertigo was different from his usual vertigo. He Also had been to [place] ER 4 days prior for feeling faint. He also complained of whole body left sided pain that was new. The family did however indicate he has chronic chest pain from his thoracic aortic aneurysm. A CTA of the chest was obtained which did not reveal an acute process. He was already on asa/statin, eliquis, norvasc, and ranexa, metoprolol. He was given meclizine and valium prn. He was admitted to the PCU on tele. He complained of persistent vertigo throughout his stay despite prn meds. MRI of the brain, MRA of the head and neck were obtained. No acute process was revealed. Neuro was consulted. They felt there was no acute process and that this was a peripheral vertigo, consistent with his known history. He already follows ENT as an outpatient - Dr. Lucero. Neuro recommended outpatient Vestibular therapy and ENT follow up. This was arranged for him. I did not feel further valium was indicated for outpatient therapy as it had no significant impact on his vertigo while he was here. As for his chest pain / whole left sided body pain, He had negative EKG. He had no events on tele. He had negative troponin x 3. CXR and CTA chest were negative for acute processes. He later changed his complaints, stating that reason he came to the ER was left elbow pain. He stated he had a traumatic injury 6 months prior and that it flared back up. An xray was obtained, no acute process was revealed. He was given ice and tylenol. NSAIDs are contraindicated. We recommended he follow up with his PCP for this as it was an old injury and may need drained again (done before for edema) as there was some edema here. He was discharged home in stable condition. He was advised to follow up with his pcp in 1-2 weeks. He should start vestibular therapy as soon as possible. He is placed on a driving restriction for vertigo. He will need to follow up with his ENT dr. Lucero in 1-2 weeks. Follow up with results with PCP. This patient was seen by Thiago Hernández PA-C under the supervision of Dr. Sinclair. [] Patient Problems: Active and Suspected Problems (Last Reviewed 12/13/18 @ 21:07 by Jayden Mike MD) Vertigo (Acute) Stroke-like symptoms (Acute) - Physical Exam General: Alert, Oriented x3, Cooperative HEENT: Atraumatic, PERRLA, EOMI, Normocephalic Neck: Supple, No JVD, Negative Carotid Bruits Lungs: Clear to auscultation, Normal air movement Cardiovascular: Regular rate, No murmurs Abdomen: Bowel Sounds Present, Soft, Non Tender Extremities: No edema, Capillary Refill Less than 3 Seconds Skin: No rashes, No breakdown Musculoskeletal: No Tenderness to Palpation of Joints or Extremities Neurological: Cranial nerves II-XII grossly intact Psych/Mental Status: Normal Affect, Appropriate, Alert and oriented to time, place, person, mood and affect Vital Signs Temp Pulse Resp BP Pulse Ox 98.0 F 92 16 126/97 H 97 12/15/18 15:36 12/15/18 15:36 12/15/18 15:36 12/15/18 15:36 12/15/18 15:36 Oxygen Delivery Method Room Air Weight: 229 lb 15.074 oz Body Mass Index (BMI) 32.1 Finger Stick Blood Glucose 95 Orthostatic Vital Signs Start: 12/15/18 12:22 Freq: q24h Status: Active Protocol: Activity Type Activity Date Activity User E-Sign Co-Sign Detail Recorded Client Recorded Date Recorded By Document 12/15/18 12:22 [facility] [id number] 12/15/18 12:25 BAM 12/15/18 12:22 Orthostatic Vitals Standing -Blood Pressure (90/60-120/80) 114/85 H -Extremity Use Right Arm -Pulse Rate (60-100) 110 H Sitting -Blood Pressure (90/60-120/80) 123/84 H -Extremity Use Right Arm -Pulse Rate (60-100) 106 H Lying -Blood Pressure (90/60-120/80) 115/86 H -Extremity Use Right Arm -Pulse Rate (60-100) 98 Intake and Output for Last 24 Hours 12/13/18 12/14/18 12/15/18 23:59 23:59 23:59 Intake Total 1280 / 1280 120 / 120 Output Total 200 / 200 200 / 200 Balance -200 / -200 1080 / 1080 120 / 120 Discharge Diet: Low fat/ Low Cholesterol, 2000 mg Sodium Diet Discharge Activity: Return to Normal Activity Home Medications: Medications to take at Discharge Pantoprazole Sodium [Protonix] 40 mg PO DAILY 04/22/16 Albuterol Inhaler [Ventolin Hfa] 1 - 2 puff INHALATION Q4H PRN PRN #1 inhaler 07/15/17 Apixaban [Eliquis] 5 mg PO BID 09/21/17 meclizine 12.5 mg tablet 12.5 mg PO BID PRN #60 tab 07/03/18 Escitalopram Oxalate [Lexapro] 15 mg PO DAILY 08/31/18 Fluticasone 0.05% [Flonase Nasal [place]] 1 spray NASAL DAILY #1 nasal.sry 08/31/18 Metoprolol Succinate 25 mg PO DAILY 08/31/18 Promethazine HCl 25 mg PO DAILY 08/31/18 Ranolazine [Ranexa] 500 mg PO BID 08/31/18 lisinopril 20 mg tablet 20 mg PO DAILY #90 tab 11/03/18 Amlodipine Besylate [Norvasc] 5 mg PO BID 11/06/18 Nitroglycerin [Nitrostat] 0.4 mg SUBLINGUAL Q5M PRN 11/06/18 Atorvastatin Calcium [Lipitor] 20 mg PO DAILY 11/21/18 Ondansetron [Zofran Odt] 4 mg PO Q8H PRN PRN #10 tablet 11/24/18 Hydrocodone/Acetaminophen [[place] 5-325 Tablet] 1 each PO DAILY 12/03/18 Primary Care Physician: Ar Mckeon MD [Primary Care Provider] - Please follow up with your Primary Care Physician in: 1-2 weeks Please Follow Up With: Vidal Lucero MD When: 1-2 weeks Please Follow Up With: Nivia Garcia NP-C Disposition: Home Minutes spent on discharge:: 40 Patient Condition:: Stable Medical Necessity - Tobacco Use Smoking Status: Never smoker Meaningful Use Info Meaningful Use Diagnoses (Choose all that apply): None applicable <Edgar Sinclair - Last Filed: 12/15/18 17:37> Discharge Date and Diagnosis - Primary Discharge Diagnosis Active and Suspected Problems (Last Reviewed 12/13/18 @ 21:07 by Jayden Mike MD) Vertigo (Acute) Stroke-like symptoms (Acute) - Secondary Discharge Diagnosis Chronic Problems (Last Reviewed 12/13/18 @ 21:07 by Jayden Mike MD) Essential hypertension (Chronic) Atrial fibrillation and flutter (Chronic) SVT (supraventricular tachycardia) (Chronic) LORETTA (obstructive sleep apnea) (Chronic) Atherosclerotic heart disease of [place] coronary artery without angina pectoris (Chronic) History of left heart catheterization (Chronic) 11/09/2016 @ [facility], per Dr. Cory Harley: normal coronaries 04/07/2018 @ [facility] per Dr. Harris: normal coronaries Nephrolithiasis (Chronic) Anxiety (Chronic) PAF (paroxysmal atrial fibrillation) (Chronic) GERD (gastroesophageal reflux disease) (Chronic) Obesity (BMI 30-39.9) (Chronic) BPPV (benign paroxysmal positional vertigo) (Chronic) HLD (hyperlipidemia) (Chronic) Thoracic aortic aneurysm without rupture (Chronic) Hospital Course and Treatment Summary of Care Provided: This patient was seen in conjunction with Thiago AGUILERA. I have independently interviewed and examined the patient and reviewed pertinent history, examination findings, laboratory and plan of management. I have reviewed the note and agree with the documented findings with the few additional points. In brief, patient is admitted for dizziness and vertigo. Patient had 10 ED visits in this year and [facility]. Patient had also been [facility] another hospital. Patient MRI brain does not show acute stroke. MRA head and neck reported as right ICA 50-69% stenosis, left ICA less than 50% stenosis. Patient is already on aspirin, Eliquis and statin for A. fib and dyslipidemia. Patient follows Dr. Vidal Lucero for long time secondary to chronic sensorineural deafness. Advised to keep following. Discharge medication reconciliation done. Discharge follow-up instructions completed. I have discussed my assessment with Thiago AGUILERA and orders have been reviewed. [] Subjective: Seen and examined. Patient has chronic noise-induced sensorineural hearing loss and uses hearing aid. 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 Patient denies tinnitus but has chronic vertigo and follows ENT, Dr. Vidal Lucero. - Physical Exam General: Alert, Oriented x3, Cooperative HEENT: Atraumatic, PERRLA, EOMI, Normocephalic, - - Chronic sensorineural deafness. Uses hearing aids. Neck: Supple, No JVD, Negative Carotid Bruits Lungs: Clear to auscultation, Normal air movement Cardiovascular: Regular rate, Regular Rhythm, Normal S1, Normal S2, No murmurs Abdomen: Bowel Sounds Present, Soft, Non Tender, Non-Distended Extremities: No edema, Capillary Refill Less than 3 Seconds Skin: No rashes, No breakdown Musculoskeletal: No Tenderness to Palpation of Joints or Extremities Neurological: Cranial nerves II-XII grossly intact, Deep Tendon Reflexes 2+/4 and Symmetrical, Neuro grossly intact Psych/Mental Status: Normal Affect, Appropriate Vital Signs Temp Pulse Resp BP Pulse Ox 98.0 F 92 16 126/97 H 97 12/15/18 15:36 12/15/18 15:36 12/15/18 15:36 12/15/18 15:36 12/15/18 15:36 Oxygen Delivery Method Room Air Weight: 229 lb 15.074 oz Body Mass Index (BMI) 32.1 Finger Stick Blood Glucose 95 Orthostatic Vital Signs Start: 12/15/18 12:22 Freq: q24h Status: Active Protocol: Activity Type Activity Date Activity User E-Sign Co-Sign Detail Recorded Client Recorded Date Recorded By Document 12/15/18 12:22 [facility] [id number] 12/15/18 12:25 [facility] 12/15/18 12:22 Orthostatic Vitals Standing -Blood Pressure (90/60-120/80) 114/85 H -Extremity Use Right Arm -Pulse Rate (60-100) 110 H Sitting -Blood Pressure (90/60-120/80) 123/84 H -Extremity Use Right Arm -Pulse Rate (60-100) 106 H Lying -Blood Pressure (90/60-120/80) 115/86 H -Extremity Use Right Arm -Pulse Rate (60-100) 98 Intake and Output for Last 24 Hours 12/13/18 12/14/18 12/15/18 23:59 23:59 23:59 Intake Total 1280 / 1280 120 / 120 Output Total 200 / 200 200 / 200 Balance -200 / -200 1080 / 1080 120 / 120 Meaningful Use Info Meaningful Use Diagnoses (Choose all that apply): None applicable Code Visit OBSV E&M: 25679 Observation care discharge
--- NOTE | 2018-12-15 15:44 | DS.PCM_ITS ---
Addendum entered and electronically signed by ALE Peña 12/15/18 16:02: Code Visit Addendum: he did have some carotid stenosis, non acute, seen on MRI, and Vascular follow up with Dr. Salgado was recommended as an outpatient. Original Note: <Thiago Hernández - Last Filed: 12/15/18 16:01> Discharge Date and Diagnosis - Problem List Patient Problems: Active and Suspected Problems (Last Reviewed 12/13/18 @ 21:07 by Jayden cohen MD) Vertigo (Acute) Stroke-like symptoms (Acute) Date of Admission: 12/13/18 Date of Discharge: 12/15/18 - Primary Discharge Diagnosis Active and Suspected Problems (Last Reviewed 12/13/18 @ 21:07 by Jayden Mike MD) Vertigo, BPPV Stroke ruled out Left sided whole body pain Chronic chest pain Recent SVT and Cardioversion LORETTA Anxiety PAF HLD Hx Thoracic aortic aneurysm Elbow edema, no acute process - Secondary Discharge Diagnosis Chronic Problems (Last Reviewed 12/13/18 @ 21:07 by Jayden Mike MD) Essential hypertension (Chronic) Atrial fibrillation and flutter (Chronic) SVT (supraventricular tachycardia) (Chronic) LORETTA (obstructive sleep apnea) (Chronic) 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 Cory Harley: normal coronaries 04/07/2018 @ [facility] per Dr. Harris: normal coronaries Nephrolithiasis (Chronic) Anxiety (Chronic) PAF (paroxysmal atrial fibrillation) (Chronic) GERD (gastroesophageal reflux disease) (Chronic) Obesity (BMI 30-39.9) (Chronic) BPPV (benign paroxysmal positional vertigo) (Chronic) HLD (hyperlipidemia) (Chronic) Thoracic aortic aneurysm without rupture (Chronic) Hospital Course and Treatment Imaging Results: CT/Brain/Head without Contrast IMPRESSION: 1. No intracranial findings. 2. Chronic right maxillary sinusitis. RAD/Chest 1 View IMPRESSION: Widened mediastinum is consistent with previously documented thoracic aortic aneurysm. No acute findings. RAD/Elbow 2 Views IMPRESSION: Old posttraumatic and degenerative changes of the elbow. No evidence of acute fracture. No significant change since the prior study. CT/CTA Chest W/WO Contrast IMPRESSION: 1. No PE, thoracic aortic dissection, or acute disease. 2. Left lower lobe mild bronchiectasis and minor scarring, unchanged. Individualized dose optimization techniques were used for this CT. MRI/Brain without Contrast IMPRESSION: No evidence of acute intracranial bleed, mass or ischemia. MRI/MRA Head ONLY without Contrast IMPRESSION: No evidence of significant steno-occlusive disease or aneurysm. MRI/MRA Neck WITH and W/O Contrast IMPRESSION: 50-69% stenosis of the right ICA. 50% stenosis of the left ICA. Further evaluation with carotid sonography can be obtained. Consults: Pepe - Neuro Operations: None Procedures: 2-D Echocardiogram Summary of Care Provided: Hospital Course: The patient is a 48 year old M with pmhx of chronic BPPV, known thoracic aortic aneurysm, chronic chest pain 2/2 aneurysm, recent ER visit with SVT and cardioversion, hx paroxysmal Afib, HTN, GERD, Depression and anxiety, who presented to the ER 3 days after cardioversion with c/o dizziness. He had a negative CT brain, he did have lateral nystagmus on exam, and the patient insisted that his vertigo was different from his usual vertigo. He Also had been to [place] [facility] 4 days prior for feeling faint. He also complained of whole body left sided pain that was new. The family did however indicate he has chronic chest pain from his thoracic aortic aneurysm. A CTA of the chest was obtained which did not reveal an acute process. He was already on asa/statin, eliquis, norvasc, and ranexa, metoprolol. He was given meclizine and valium prn. He was admitted to the PCU on tele. He complained of persistent vertigo throughout his stay despite prn meds. MRI of the brain, MRA of the head and neck were obtained. No acute process was revealed. Neuro was consulted. They felt there was no acute process and that this was a peripheral vertigo, consistent with his known history. He already follows ENT as an outpatient - Dr. Lucero. Neuro recommended outpatient Vestibular therapy and ENT follow up. This was arranged for him. I did not feel further valium was indicated for outpatient therapy as it had no significant impact on his vertigo while he was here. As for his chest pain / whole left sided body pain, He had negative EKG. He had no events on tele. He had negative troponin x 3. CXR and CTA chest were negative for acute processes. He later changed his complaints, stating that reason he came to the ER was left elbow pain. He stated he had a traumatic injury 6 months prior and that it flared back up. An xray was obtained, no acute process was revealed. He was given ice and tylenol. NSAIDs are contraindicated. We recommended he follow up with his PCP for this as it was an old injury and may need drained again (done before for edema) as there was some edema here. He was discharged home in stable condition. He was advised to follow up with his pcp in 1-2 weeks. He should start vestibular therapy as soon as possible. He is placed on a driving restriction for vertigo. He will need to follow up with his ENT dr. Lucero in 1- 2 weeks. Follow up with results with PCP. This patient was seen by Thiago Hernández PA-C under the supervision of Dr. Sinclair. [] Patient Problems: Active and Suspected Problems (Last Reviewed 12/13/18 @ 21:07 by Jayden Mike MD) Vertigo (Acute) Stroke-like symptoms (Acute) - Physical Exam General: Alert, Oriented x3, Cooperative HEENT: Atraumatic, PERRLA, EOMI, Normocephalic Neck: Supple, No JVD, Negative Carotid Bruits Lungs: Clear to auscultation, Normal air movement Cardiovascular: Regular rate, No murmurs Abdomen: Bowel Sounds Present, Soft, Non Tender Extremities: No edema, Capillary Refill Less than 3 Seconds Skin: No rashes, No breakdown Musculoskeletal: No Tenderness to Palpation of Joints or Extremities Neurological: Cranial nerves II-XII grossly intact Psych/Mental Status: Normal Affect, Appropriate, Alert and oriented to time, place, person, mood and affect Vital Signs Temp Pulse Resp BP Pulse Ox 98.0 F 92 16 126/97 H 97 12/15/18 15:36 12/15/18 15:36 12/15/18 15:36 12/15/18 15:36 12/15/18 15:36 Oxygen Delivery Method Room Air Weight: 229 lb 15.074 oz Body Mass Index (BMI) 32.1 Finger Stick Blood Glucose 95 Orthostatic Vital Signs Start: 12/15/18 12:22 Freq: q24h Status: Active Protocol: Activity Type Activity Date Activity User E-Sign Co-Sign Detail Recorded Client Recorded Date Recorded By Document 12/15/18 12:22 [facility] [id number] 12/15/18 12:25 [facility] 12/15/18 12:22 Orthostatic Vitals Standing -Blood Pressure (90/60-120/80) 114/85 H -Extremity Use Right Arm -Pulse Rate (60-100) 110 H Sitting -Blood Pressure (90/60-120/80) 123/84 H -Extremity Use Right Arm -Pulse Rate (60-100) 106 H Lying -Blood Pressure (90/60-120/80) 115/86 H -Extremity Use Right Arm -Pulse Rate (60-100) 98 Intake and Output for Last 24 Hours 12/13/18 12/14/18 12/15/18 23:59 23:59 23:59 Intake Total 1280 / 1280 120 / 120 Output Total 200 / 200 200 / 200 Balance -200 / -200 1080 / 1080 120 / 120 Discharge Diet: Low fat/ Low Cholesterol, 2000 mg Sodium Diet Discharge Activity: Return to Normal Activity Home Medications: Medications to take at Discharge Pantoprazole Sodium [Protonix] 40 mg PO DAILY 04/22/16 Albuterol Inhaler [Ventolin Hfa] 1 - 2 puff INHALATION Q4H PRN PRN #1 inhaler 07/15/17 Apixaban [Eliquis] 5 mg PO BID 09/21/17 meclizine 12.5 mg tablet 12.5 mg PO BID PRN #60 tab 07/03/18 Escitalopram Oxalate [Lexapro] 15 mg PO DAILY 08/31/18 Fluticasone 0.05% [Flonase Nasal Stanley] 1 spray NASAL DAILY #1 nasal.sry 08/31/18 Metoprolol Succinate 25 mg PO DAILY 08/31/18 Promethazine HCl 25 mg PO DAILY 08/31/18 Ranolazine [Ranexa] 500 mg PO BID 08/31/18 lisinopril 20 mg tablet 20 mg PO DAILY #90 tab 11/03/18 Amlodipine Besylate [Norvasc] 5 mg PO BID 11/06/18 Nitroglycerin [Nitrostat] 0.4 mg SUBLINGUAL Q5M PRN 11/06/18 Atorvastatin Calcium [Lipitor] 20 mg PO DAILY 11/21/18 Ondansetron [Zofran Odt] 4 mg PO Q8H PRN PRN #10 tablet 11/24/18 Hydrocodone/Acetaminophen [[place] 5-325 Tablet] 1 each PO DAILY 12/03/18 Primary Care Physician: Ar Mckeon MD [Primary Care Provider] - Please follow up with your Primary Care Physician in: 1-2 weeks Please Follow Up With: Vidal Lucero MD When: 1-2 weeks Please Follow Up With: Nivia Garcia NP-C Disposition: Home Minutes spent on discharge:: 40 Patient Condition:: Stable Medical Necessity - Tobacco Use Smoking Status: Never smoker Meaningful Use Info Meaningful Use Diagnoses (Choose all that apply): None applicable <YahirEdgar - Last Filed: 12/15/18 17:37> Discharge Date and Diagnosis - Primary Discharge Diagnosis Active and Suspected Problems (Last Reviewed 12/13/18 @ 21:07 by Jayden Mike MD) Vertigo (Acute) Stroke-like symptoms (Acute) - Secondary Discharge Diagnosis Chronic Problems (Last Reviewed 12/13/18 @ 21:07 by Jayden Mike MD) Essential hypertension (Chronic) Atrial fibrillation and flutter (Chronic) SVT (supraventricular tachycardia) (Chronic) LORETTA (obstructive sleep apnea) (Chronic) 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 Cory Harley: normal coronaries 04/07/2018 @ [facility] per Dr. Harris: normal coronaries Nephrolithiasis (Chronic) Anxiety (Chronic) PAF (paroxysmal atrial fibrillation) (Chronic) GERD (gastroesophageal reflux disease) (Chronic) Obesity (BMI 30-39.9) (Chronic) BPPV (benign paroxysmal positional vertigo) (Chronic) HLD (hyperlipidemia) (Chronic) Thoracic aortic aneurysm without rupture (Chronic) Hospital Course and Treatment Summary of Care Provided: This patient was seen in conjunction with Thiago AGUILERA. I have independently interviewed and examined the patient and reviewed pertinent history, examination findings, laboratory and plan of management. I have reviewed the note and agree with the documented findings with the few additional points. In brief, patient is admitted for dizziness and vertigo. Patient had 10 ED visits in this year and [facility]. Patient had also been [facility] another hospital. Patient MRI brain does not show acute stroke. MRA head and neck reported as right ICA 50-69% stenosis, left ICA less than 50% stenosis. Patient is already on aspirin, Eliquis and statin for A. fib and dyslipidemia. Patient follows Dr. Vidal Lucero for long time secondary to chronic sensorineural deafness. Advised to keep following. Discharge medication reconciliation done. Discharge follow-up instructions completed. I have discussed my assessment with Thiago AGUILERA and orders have been reviewed. [] Subjective: Seen and examined. Patient has chronic noise-induced sensorineural hearing loss and uses hearing aid. 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 Patient denies tinnitus but has chronic vertigo and follows ENT, Dr. Vidal Lucero. - Physical Exam General: Alert, Oriented x3, Cooperative HEENT: Atraumatic, PERRLA, EOMI, Normocephalic, - - Chronic sensorineural deafness. Uses hearing aids. Neck: Supple, No JVD, Negative Carotid Bruits Lungs: Clear to auscultation, Normal air movement Cardiovascular: Regular rate, Regular Rhythm, Normal S1, Normal S2, No murmurs Abdomen: Bowel Sounds Present, Soft, Non Tender, Non-Distended Extremities: No edema, Capillary Refill Less than 3 Seconds Skin: No rashes, No breakdown Musculoskeletal: No Tenderness to Palpation of Joints or Extremities Neurological: Cranial nerves II-XII grossly intact, Deep Tendon Reflexes 2+/4 and Symmetrical, Neuro grossly intact Psych/Mental Status: Normal Affect, Appropriate Vital Signs Temp Pulse Resp BP Pulse Ox 98.0 F 92 16 126/97 H 97 12/15/18 15:36 12/15/18 15:36 12/15/18 15:36 12/15/18 15:36 12/15/18 15:36 Oxygen Delivery Method Room Air Weight: 229 lb 15.074 oz Body Mass Index (BMI) 32.1 Finger Stick Blood Glucose 95 Orthostatic Vital Signs Start: 12/15/18 12:22 Freq: q24h Status: Active Protocol: Activity Type Activity Date Activity User E-Sign Co-Sign Detail Recorded Client Recorded Date Recorded By Document 12/15/18 12:22 [facility] [id number] 12/15/18 12:25 [facility] 12/15/18 12:22 Orthostatic Vitals Standing -Blood Pressure (90/60-120/80) 114/85 H -Extremity Use Right Arm -Pulse Rate (60-100) 110 H Sitting -Blood Pressure (90/60-120/80) 123/84 H -Extremity Use Right Arm -Pulse Rate (60-100) 106 H Lying -Blood Pressure (90/60-120/80) 115/86 H -Extremity Use Right Arm -Pulse Rate (60-100) 98 Intake and Output for Last 24 Hours 12/13/18 12/14/18 12/15/18 23:59 23:59 23:59 Intake Total 1280 / 1280 120 / 120 Output Total 200 / 200 200 / 200 Balance -200 / -200 1080 / 1080 120 / 120 Meaningful Use Info Meaningful Use Diagnoses (Choose all that apply): None applicable Code Visit OBSV E&M: 13501 Observation care discharge
--- NOTE | 2018-12-15 17:04 | CHAPLAIN ---
Type of Pastoral Visit _x__ Initial Visit ___ Follow-up Visit ___ On-call Visit ___ General Patient Visit ___ Spiritual Assessment ___ Family Conference ___ Bereavement ___ Rapid Response ___ Code Blue ___ Other (describe below) Pastoral Care Referral From _x__ Patient ___ Family ___ Nurse ___ Physician ___ Director Of Infection Prevention ___ Rack Pusher ___ Other (describe below) Sacrament/Intervention _x__ Active listening ___ Anointing ___ Uatsdin ___ Bereavement ___ Communion ___ Val exploration ___ _x__ Life review _x__ Prayer ___ Reconciliation ___ Sacrament of Sick _x__ Supportive presence ___ Wedding ___ Other (describe below) Pastoral Comments patient expresses some level of frustration and anxiety over unknown cause for symptoms and pending major surgery next month
--- NOTE | 2018-12-16 15:50 | CASEMGMT ---
[facility] Discharge Follow-up Phone Call: RAVI: Fortino Strata: 4 Call Date: 12/16/18 Discharge Date: 12/15/18 Time of Call: 1550 Duration: 1 min Admitting Diagnosis: Stroke Like Symptoms [facility] attempted to complete follow-up phone call after recent hospitalization. No answer, voice message left with return contact information. Patient has follow-up appt scheduled for 12/18/18 with PCP office. Script given for vestibular therapy.
== END 2018-12-15 18:36 | disposition home or self-care (01) | DRG 149 ==
LOC: ED 19:02 → PCU 20:38
PROVIDERS: Admitting Provider Hospitalist; Emergency Provider Emergency Medicine; Family Provider Family Medicine; PCP Family Medicine; Referring Provider Hospitalist; Visit Provider Internal Medicine
DX: H81.10 Benign paroxysmal vertigo, unspecified ear (principal); I47.1 Supraventricular tachycardia; J32.0 Chronic maxillary sinusitis; I71.2 Thoracic aortic aneurysm, without rupture; I48.0 Paroxysmal atrial fibrillation; E78.5 Hyperlipidemia, unspecified; I10 Essential (primary) hypertension; M25.522 Pain in left elbow; I65.23 Occlusion and stenosis of bilateral carotid arteries; R07.9 Chest pain, unspecified; G47.33 Obstructive sleep apnea (adult) (pediatric); F41.9 Anxiety disorder, unspecified; R60.9 Edema, unspecified; Z79.01 Long term (current) use of anticoagulants; I25.10 Atherosclerotic heart disease of native coronary artery without angina pectoris; K21.9 Gastro-esophageal reflux disease without esophagitis; E66.9 Obesity, unspecified; Z68.32 Body mass index [BMI] 32.0-32.9, adult; H90.5 Unspecified sensorineural hearing loss; Z79.899 Other long term (current) drug therapy
CPT/HCPCS: 36415; 70450; 70544; 70549; 70551; 71045; 71275; 73070; 80048; 80061; 84484; 85025; 85610; 85730; 92610; 92960; 93005; 93306; 96361; 96374; 96375; 96376; 97110; 97162; 97166; 97802; 99285; A9585; J7030; Q9957; Q9967; A4216; C8929; J0153; J2405

== ENCOUNTER 2019-02-21 22:48 | Emergency (ER) | payer MEDICARE, SELFPAY ==
[2018-12-14 01:52] VITALS: BMI 32.1
[2019-02-21 22:49] VITALS: BP 122/90; PULSE 79; RESP 15; TEMP 36.3; BMI 32.3
--- NOTE | 2019-02-21 23:16 | CT_ITS ---
HISTORY: PT STATED FALL X 2 DAYS AGO, PRESENTS WITH HEMATURIA, PAIN, DISTENTION EXAMINATION: CT Abdomen And Pelvis W/ Contrast TECHNIQUE: Helically acquired images were obtained of the abdomen and pelvis following IV contrast. A radiation dose optimization technique was used for this scan. IV Contrast dosage and agent: 100 Isovue 300 Oral contrast: None. COMPARISON: 11/21/18 CT abdomen and pelvis. FINDINGS: LOWER CHEST: Lung bases are clear. No cardiomegaly or pericardial effusion observed. LIVER: Homogeneous. No focal mass. GALLBLADDER AND BILIARY TREE: No calcified gallstones. There is no gallbladder distension or wall edema. No intra- or extrahepatic biliary ductal dilation. KIDNEYS AND URETERS: 3 left and 1 right nonobstructing renal stones, largest 5 mm lower pole right kidney. Normal renal enhancement. No hydronephrosis or hydroureter. ADRENAL GLANDS: Non-enlarged. SPLEEN: Normal size without focal cystic or solid mass. PANCREAS: No focal cystic or solid mass. BOWEL: No evidence of acute appendicitis. No stomach or bowel distension. No focal inflammatory change observed. LYMPH NODES: No enlarged mesenteric or retroperitoneal lymph nodes. PERITONEUM: No ascites or free air. No other fluid collection. VESSELS: Aorta is non-dilated. URINARY BLADDER: Unremarkable. REPRODUCTIVE ORGANS: No pelvic masses. ABDOMINAL WALL: Bilateral inguinal hernias contain fat but no bowel. BONES: No acute fracture. Posterior fusion and laminectomy and discectomy L4-5. Int[address] hardware. CT/Abdomen/Pelvis W IV Cont ONLY IMPRESSION: No apparent injury or other acute finding in the abdomen or pelvis. Small bilateral nonobstructing renal stones. Individualized dose optimization techniques were used for this CT. at 0100 Reported and signed by: Dennis Landon MD Electronically Signed: Dennis Landon, at 0:59 EDT Tel , Service support ,
--- NOTE | 2019-02-21 23:18 | ED.VISSUMM ---
- ER Visit Summary Date of Service: 02/21/19 Chief Complaint: Fall History of Present Illness: The patient is a 49 M presenting after fall. This occurred 2 days ago. He states he tripped over his cat and fell down 3 steps. He hit his right lower back. He did not hit his head or lose consciousness. He complains of persistent pain in his right lower back. He states he has noticed some specks of blood in his urine. He has not had gross hematuria. He is on Eliquis. He denies other complaints. Physical Examination: Vitals are stable. Patient is afebrile. Alert no acute distress. HEENT exam is unremarkable. Neck is nontender Lungs are clear and equal bilaterally. Heart is regular rate and rhythm. Abdomen is soft nontender nondistended. No guarding or rebound Back right lower back ecchymosis, no midline tenderness Extremities are unremarkable. Skin is warm and dry. No focal neurologic deficit. Remainder of exam is unremarkable. Emergency Department Course and Treatment: Urinalysis is unremarkable. CT abdomen pelvis with IV only contrast shows no acute process. Patient was given Tylenol. Advised to follow-up with his primary care physician. Advised return to ED if worsening complaints. Disposition: Discharge home Impression: Right back contusion status post mechanical fall This note was generated with [employer] dictation software. It may contain incorrect words, spelling, and punctuation that were not noted in review of the chart prior to signing ED Disposition - Plan for ED Patient: Disposition: Home or Assisted Living Instructions: ED Contusion Back Referrals: Ar Mckeon MD [Primary Care Provider] -
[2019-02-21 23:26] VITALS: PULSE 87; RESP 16; O2SAT 98
[2019-02-21 23:30] LABS: Bacteria 0 SEEN /hpf (None Seen); Mucous, Urine 0 SEEN /hpf (<or=2+); Red Blood Cells-Urine 0 SEEN /hpf (0-5); Squamous Epithelial Cells - UA 0 SEEN /hpf (0-5); White Blood Cells 0 SEEN /hpf (0-5)
[2019-02-21 23:36] LABS: Color, Urine Yellow (Yellow); Glucose, Dipstick Normal (Normal); Ketone-Dipstick 5 mg/dl (Negative); Leukocyte Esterase-Dipstick Negative /ul (Negative); Nitrite-Dipstick Negative (Negative); Occult Blood-Urine Negative /ul (Negative); Protein-Dipstick 15 mg/dl (Negative); Specific Gravity, Urine 1.025 (1.002-1.030); Urine Bilirubin Dipstick Negative (Negative); Urine Clarity Sl. Cloudy (Clear); Urine Urobilinogen 1 mg/dl (Normal)
[2019-02-22 00:06] LABS: Amorphous Sediment 1+
--- NOTE | 2019-02-22 01:12 | ED.DEP ---
ED Disposition - Plan for ED Patient: Instructions: ED Contusion Back Referrals: Ar Mckeon MD [Primary Care Provider] -
[2019-02-22] MEDS: Acetaminophen 500 MG Tablet 1000 MG PO (01:24)
== END 2019-02-22 01:30 | disposition home or self-care (01) ==
LOC: ED 23:24
PROVIDERS: Emergency Provider Emergency Medicine; Family Provider Family Medicine; PCP Family Medicine
DX: S30.0XXA Contusion of lower back and pelvis, initial encounter (principal); W01.0XXA Fall on same level from slipping, tripping and stumbling without subsequent striking against object, initial encounter; W10.8XXA Fall (on) (from) other stairs and steps, initial encounter; Y93.9 Activity, unspecified; Y92.9 Unspecified place or not applicable; I10 Essential (primary) hypertension; I48.91 Unspecified atrial fibrillation; Z86.73 Personal history of transient ischemic attack (TIA), and cerebral infarction without residual deficits; Z79.01 Long term (current) use of anticoagulants; Z79.899 Other long term (current) drug therapy
CPT/HCPCS: 74177; 81001; 99284; Q9967; A4216

== ENCOUNTER 2019-02-28 21:03 | Emergency (ER) | payer MEDICARE, SELFPAY ==
[2019-02-28 21:03] VITALS: BP 151/96; PULSE 78; RESP 16; TEMP 36.3; O2SAT 100; BMI 32.8
[2019-02-28] MEDS: oxyCODONE 5 MG Tablet 10 MG PO (21:22)
--- NOTE | 2019-02-28 21:48 | ED.VISSUMM ---
- ER Visit Summary Date of Service: 02/28/19 Chief Complaint: Back pain History of Present Illness: The patient is a 49 M presents to the emergency department back pain. Patient had a fall about 2 weeks ago. He was actually seen here a week ago because he was having hematuria. The patient is on anticoagulants. At that point, he underwent a CT scan. There is no evidence of fracture or renal injury. The patient followed up with his primary care and was started on antispasmodics with no improvement. He states that this pain is gotten worse today. It does not radiate down his legs. He denies any problems with bowel bladder. Denies any change in gait. He states he is been taking Tylenol with no improvement. Physical Examination: Afebrile, vitals unremarkable. Well-appearing male no acute distress. Head is normocephalic, atraumatic. Pupil's equal round reactive, extraocular muscles intact. Neck supple. Heart regular rate and rhythm. Lungs clear, chest nontender. Abdomen soft, nontender, nondistended. No pulsatile mass. Patient has paraspinal tenderness in the lumbar area, but no bony tenderness. Straight leg raise is negative bilaterally. 2+ symmetric lower extremity pulses. 2+ reflexes. No clonus. No weakness of dorsiflexion, plantar flexion, or extensor hallucis longus bilaterally. Test Results: [] Emergency Department Course and Treatment: Patient presents with exacerbation of his back pain. I did review his prior CT which was unremarkable. This all seems muscular. The patient is given a dose of analgesics. I do not see indication for repeating his imaging. The patient will be discharged home. Treatment Plan: [] Disposition: Discharge Impression: 1. Lumbar strain status post fall This note was generated with [employer] dictation software. It may contain incorrect words, spelling, and punctuation that were not noted in review of the chart prior to signing ED Disposition - Plan for ED Patient: Instructions: ED Sprain Strain Lumbar Prescriptions: Oxycodone HCl/Acetaminophen [Percocet 5/325] 1 tab PO Q6H PRN PRN 2 Days #6 tab PRN Reason: Pain Referrals: Ar Mckeon MD [Primary Care Provider] -
[2019-02-28 22:12] VITALS: RESP 18
== END 2019-02-28 22:22 | disposition home or self-care (01) ==
LOC: ED 21:28
PROVIDERS: Emergency Provider Emergency Medicine; Family Provider Family Medicine; PCP Family Medicine
DX: S39.012A Strain of muscle, fascia and tendon of lower back, initial encounter (principal); W19.XXXA Unspecified fall, initial encounter; Y93.9 Activity, unspecified; Y92.9 Unspecified place or not applicable
CPT/HCPCS: 99283

== ENCOUNTER 2019-03-13 14:55 | Emergency (ER) | payer MEDICARE, SELFPAY ==
[2019-03-13 14:56] VITALS: BP 138/109; PULSE 75; RESP 23; TEMP 36.7; O2SAT 100; BMI 32.8
--- NOTE | 2019-03-13 15:08 | RAD_ITS ---
STUDY: X-RAY CHEST REASON FOR EXAM: Male, 49 years old. Chest pain. History of thoracic aneurysm. TECHNIQUE: Single frontal view of the chest. COMPARISON: December 13, 2018 FINDINGS: There is stable mild hyperexpansion. There is no demonstrated pleural abnormality. There is moderate cardiomegaly. There is stable mediastinal widening. Normal visualized pulmonary arteries. Normal visualized aortic arch and descending thoracic aorta. Normal visualized thoracic spine. Normal visualized ribs, clavicles, and shoulders. There is no demonstrated abnormality of the visualized soft tissue structures of the upper abdomen. RAD/Chest 1 View (Portable) IMPRESSION: Stable appearance of the chest with no acute superimposed finding. Electronically Signed: Cricket Townsend MD at 15:23 EDT , Service support ,
--- NOTE | 2019-03-13 15:08 | EKG12_ITS ---
Test Reason : CP Blood Pressure : / mmHG Vent. Rate : 071 BPM Atrial Rate : 071 BPM P-R Int : 158 ms QRS Dur : 084 ms QT Int : 400 ms P-R-T Axes : -03 008 015 degrees QTc Int : 434 ms Normal sinus rhythm Normal ECG Confirmed by EDEL CASE ([id number]), linoleum mechanic RICCO LUZ ([id number]) on 03/18/2019 11:32:54 AM Referred By: TRACIE/DORA Confirmed By:GERALD CASE
[2019-03-13 15:13] VITALS: O2SAT 96
[2019-03-13] MEDS: Nitroglycerin SL (ED/IMG/CATH) 0.4 MG TABLET SUBLINGUAL ×3 (15:20→15:36)
--- NOTE | 2019-03-13 15:20 | ED.DCSUM_ITS ---
- ER Visit Summary Date of Service: 03/13/19 Chief Complaint: [Chest pain] History of Present Illness: The patient is a 49 M [presents the emergency department chest pain started 20 minutes ago. Patient states that he was doing the dishes when he began feeling some discomfort in his left chest and left gregorio ulder. Patient began feeling very lightheaded and diaphoretic. Patient had numbness and tingling in both hands. Patient still rates his pain or 6 of 7 out of 10. Patient had similar pain in the past. Patient does have history of prior MO with no intervention. Patient's had 2 heart catheterizations apparently in the last year and a half that have been unremarkable. He denies recent travel or surgery. Patient is currently on Eliquis for history of A. fib. Patient also tells me that he has a thoracic aneurysm that is just currently being followed and has not required any surgery. He denies recent cough or fever.] Physical Examination: [HEENT-PERRLA, EOMI. Cranial nerves II through XII grossly intact. TMs clear. Mucous membranes moist. No adenopathy. Cardiovascular-regular rate and rhythm without murmur or ectopy Lungs-clear to auscultation, chest wall stable without crepitus or subcu emphysema Abdomen-normoactive bowel sounds, soft, nontender, no rebound or rigidity, no peritoneal signs. Extremities-intact ?4, normal range of motion, normal pulses, atraumatic] Test Results: [EKG obtained on arrival showed a sinus rhythm with a ventricular rate of 71 bpm with no acute I segment changes. CBC with differential was normal. Chemistries normal. Lipase was normal at 146. Troponin is less than 0.015. Chest x-ray showed nothing acute.] Emergency Department Course and Treatment: [Patient received some sublingual nitro and had just mild relief for his discomfort which he states now that kind of comes and goes. Patient states that he has had recent adjustments in his anxiety medications and is noted that lately he has been a lot more shaky and feeling a lot more anxious. Patient received 1 mg of Ativan.] Treatment Plan: I do not feel that patient's chest pain is cardiac in nature. Patient had recent heart catheterization 4 months ago that was unremarkable per patient and required no type of intervention. Patient also had a CTA of his chest in November which showed a normal caliber aorta and no evidence of an aneurysm. I do not feel any further imaging is indicated. I suspect patient's symptoms more than likely anxiety related. [] Disposition: [Discharged home in stable condition]. Patient advised to return if worsening pain, increasing shortness of breath, or conditions worsen anyway. Impression: [Chest pain-atypical Anxiety] This note was generated with [employer] dictation software. It may contain incorrect words, spelling, and punctuation that were not noted in review of the chart prior to signing ED Disposition - Plan for ED Patient: Referrals: Ar Mckeon MD [Primary Care Provider] -
[2019-03-13] MEDS: 0.9% Normal Saline 1,000 ML 150 ML IV (15:30)
[2019-03-13 15:31] VITALS: BP 127/89; PULSE 74; RESP 20; O2SAT 97
[2019-03-13 15:36] VITALS: BP 124/79; PULSE 75; RESP 20; O2SAT 95
[2019-03-13 15:53] LABS: Absolute Neutrophil Count 3.2 X10^3/uL (2.0-7.7); Basophil# 0.03 X10^3/uL; Basophil% 0.5 % (0-1); Eosinophil# 0.08 X10^3/uL; Eosinophils% 1.4 % (0-5); Hematocrit 44.8 % (40-54); Hemoglobin 15.1 g/dl (13.0-16.5); Lymphocyte % 33.5 % (19-41); Mean Corp Hgb Conc 33.7 g/gl (32-36); Mean Corpuscular Hgb 27.6 pg (27.0-32.0); Mean Corpuscular Volume 81.8 fL (80-94); Mean Platelet Vol. 9.2 fl (6.2-12.0); Monocyte# 0.48 X10^3/uL; Monocyte% 8.5 % (0-10); Neutrophil # 3.18 X10^3/uL (2.7-7.7); Neutrophil % 55.9 % (47-70); Platelet Count 228 K/mm3 (150-450); RBC Distribution Width CV 22.1 % (11.6-14.6); RBC Distribution Width SD 63.6 fl (35.1-43.9); Red Blood Count 5.48 M/mm3 (4.6-6.2); White Blood Count 5.7 K/mm3 (4.4-11.0)
[2019-03-13 15:54] LABS: Differential Indicated SCAN CRITERIA MET; POSITIVE COUNT NO; POSITIVE DIFFERENTIAL NO; POSITIVE MORPHOLOGY YES
[2019-03-13 15:59] LABS: Anion Gap 5 (5-15); BUN 13 mg/dL (7-18); Calcium,Total 8.7 mg/dL (8.5-10.1); Chloride 111 mmol/L (98-107); Creatinine, Serum 0.87 mg/dL (0.70-1.30); EST Glomerular Filtration Rate 99 mL/min (>60); Est Glom Filt Rate - Afr Amer 120 mL/min (>60); Estimated Creatinine Clearance 109.39 ml/min; Glucose 107 mg/dL (74-106); Lipase 146 U/L (73-393); Potassium 3.6 mmol/L (3.5-5.1); Sodium Level 141 mmol/L (136-145)
[2019-03-13 16:22] LABS: Anisocytosis 1+; Platelet Estimate ADEQUATE (ADEQ); Platelet Morphology LARGE
[2019-03-13 16:32] VITALS: BP 120/87; PULSE 75; RESP 20; O2SAT 98
--- NOTE | 2019-03-13 16:38 | ED.DEP ---
ED Disposition - Plan for ED Patient: Instructions: ED Chest Pain Atypical Unkn Cause, ED Stress React Prescriptions: Lorazepam [Ativan] 1 mg PO TID PRN #10 tab PRN Reason: Anxiety Referrals: Ar Mckeon MD [Primary Care Provider] -
[2019-03-13] MEDS: LORazepam 2 MG/ML Syringe 1 MG IV (16:50)
[2019-03-13 17:18] VITALS: BP 126/91; PULSE 78; RESP 20; O2SAT 98
== END 2019-03-13 17:32 | disposition home or self-care (01) ==
PROVIDERS: Emergency Provider Emergency Medicine; Family Provider Family Medicine; PCP Family Medicine
DX: R07.89 Other chest pain (principal); F41.9 Anxiety disorder, unspecified; I25.2 Old myocardial infarction; I48.91 Unspecified atrial fibrillation; I10 Essential (primary) hypertension; Z79.01 Long term (current) use of anticoagulants; Z79.899 Other long term (current) drug therapy
CPT/HCPCS: 71045; 80048; 83690; 84484; 85025; 93005; 96361; 96374; 99284; J7030

== ENCOUNTER 2019-03-16 04:00 | Emergency (ER) | payer MEDICARE, SELFPAY ==
--- NOTE | 2019-03-16 04:03 | EKG12_ITS ---
Test Reason : SOB Blood Pressure : / mmHG Vent. Rate : 170 BPM Atrial Rate : 016 BPM P-R Int : 000 ms QRS Dur : 086 ms QT Int : 282 ms P-R-T Axes : 000 034 220 degrees QTc Int : 474 ms Supraventricular tachycardia Marked ST abnormality, possible inferolateral subendocardial injury Abnormal ECG Confirmed by ATTILA OLIVA ([id number]), editorial manager LINDA MORALES ([id number]) on 03/19/2019 8:28:13 AM Referred By: ERIC Confirmed By:ATTILA OLIVA
[2019-03-16 04:04] VITALS: BP 131/113; PULSE 168; RESP 28; TEMP 36.3; O2SAT 100; BMI 32.8
--- NOTE | 2019-03-16 04:04 | ED.RN ---
CALLED FOR EKG PER RN REQUEST, PULLED OLD EKGS FOR
[2019-03-16] MEDS: Aspirin 81 MG TAB.CHEW 324 MG PO (04:10)
[2019-03-16] MEDS: Adenosine 6 MG/2 ML Syringe IV (04:12)
[2019-03-16] MEDS: Adenosine 6 MG/2 ML Syringe 12 MG IV (04:14)
--- NOTE | 2019-03-16 04:15 | RAD_ITS ---
HISTORY: chest pain EXAM:XR Chest 1 View portable COMPARISON: 12/13/2018 FINDINGS: EKG leads in place. No significant change. Normal heart size. No vascular congestion, effusion, or acute pulmonary infiltration. No pneumothorax. The bony thorax appears intact. RAD/Chest 1 View (Portable) IMPRESSION: No acute cardiopulmonary disease. No significant interval change. at 0924 Reported and signed by: Isac Siddiqui MD Electronically Signed: Isac Siddiqui, at 4:44 EDT Tel , Service support ,
--- NOTE | 2019-03-16 04:16 | ED.VISSUMM ---
- ER Visit Summary Date of Service: 03/16/19 Chief Complaint: Accelerated heart rate with history of SVT and chest pain History of Present Illness: The patient is a 49 M history of prior SVT, A. fib, TIA, [place], hypertension and known thoracic aneurysm. Patient states about 50 minutes prior to arrival he awoke with chest pain accelerated heart rate. States he did recently clean cardiac catheterization. Physical Examination: Initial vital signs blood pressure 11/20/2000 13. Pulse ox 90% and heart rate 168 consistent with SVT on monitor. Patient is awake alert talking. Sitting upright in bed. He is tolerating well. H EENT exam unremarkable. Neck nontender no JVD no lymphadenopathy. Lungs clear to auscultation bilaterally. Heart tachycardic rate about 170 no murmur. Abdomen soft nontender normal bowel sounds without peritoneal signs. Patient is moving all 4 extremities. Calves are nontender without edema or cords. The upper and lower extremities have normal strength and no focal deficits. Neurologically is awake and alert with no focal motor deficits. Test Results: EKG showed SVT at 170. Chest x-ray portable one view showed a widened mediastinum which is been seen in the past and unchanged she has a known thoracic aneurysm. CBC normal white count 10 hemoglobin is 16. Chemistries unremarkable normal creatinine and gap. Troponin normal. Emergency Department Course and Treatment: Patient will undergo cardiac work-up. He was treated initially with 6 mg of adenosine which only slowed him down very briefly for a few seconds and he went back in the SVT with a heart rate in the 166 range. He was then given 12 mg IV adenosine and currently he is back to a sinus rhythm around 100. Repeat exam patient doing well at 4:49 AM. Currently his heart rate is 98 his blood pressure is 110/94. He is feeling improved. Treatment Plan: Follow-up with his primary care physician. Return if feeling worse Disposition: Discharge Impression: Acute and recurrent SVT Acute chest pain History of [place]IA, [place], hypertension, thoracic aneurysm and A. fib This note was generated with [employer] dictation software. It may contain incorrect words, spelling, and punctuation that were not noted in review of the chart prior to signing ED Disposition - Plan for ED Patient: Referrals: Ar Mckeon MD [Primary Care Provider] -
[2019-03-16 04:20] VITALS: BP 119/99; PULSE 92; RESP 17; O2SAT 100
--- NOTE | 2019-03-16 04:20 | ED.DCSUM_ITS ---
- ER Visit Summary Date of Service: 03/16/19 Chief Complaint: Accelerated heart rate with history of SVT and chest pain History of Present Illness: The patient is a 49 M history of prior SVT, A. fib, TIA, [place], hypertension and known thoracic aneurysm. Patient states about 50 minutes prior to arrival he awoke with chest pain accelerated heart rate. States he did recently clean cardiac catheterization. Physical Examination: Initial vital signs blood pressure 11/20/2000 13. Pulse ox 90% and heart rate 168 consistent with SVT on monitor. Patient is awake alert talking. Sitting upright in bed. He is tolerating well. H EENT exam unremarkable. Neck nontender no JVD no lymphadenopathy. Lungs clear to auscultation bilaterally. Heart tachycardic rate about 170 no murmur. Abdomen soft nontender normal bowel sounds without peritoneal signs. Patient is moving all 4 extremities. Calves are nontender without edema or cords. The upper and lower extremities have normal strength and no focal deficits. Neurologically is awake and alert with no focal motor deficits. Test Results: EKG showed SVT at 170. Chest x-ray portable one view showed a widened mediastinum which is been seen in the past and unchanged she has a known thoracic aneurysm. CBC normal white count 10 hemoglobin is 16. Chemistries unremarkable normal creatinine and gap. Troponin normal. Emergency Department Course and Treatment: Patient will undergo cardiac work-up. He was treated initially with 6 mg of adenosine which only slowed him down very briefly for a few seconds and he went back in the SVT with a heart rate in the 166 range. He was then given 12 mg IV adenosine and currently he is back to a sinus rhythm around 100. Repeat exam patient doing well at 4:49 AM. Currently his heart rate is 98 his blood pressure is 110/94. He is feeling improved. Treatment Plan: Follow-up with his primary care physician. Return if feeling worse Disposition: Discharge Impression: Acute and recurrent SVT Acute chest pain History of TIA, [place], hypertension, thoracic aneurysm and A. fib This note was generated with [employer] dictation software. It may contain incorrect words, spelling, and punctuation that were not noted in review of the chart prior to signing ED Disposition - Plan for ED Patient: Referrals: Ar Mckeon MD [Primary Care Provider] -
[2019-03-16 04:28] LABS: Absolute Neutrophil Count 5.4 X10^3/uL (2.0-7.7); Basophil# 0.04 X10^3/uL; Basophil% 0.4 % (0-1); Eosinophil# 0.13 X10^3/uL; Eosinophils% 1.3 % (0-5); Hematocrit 48.3 % (40-54); Hemoglobin 16.7 g/dl (13.0-16.5); Lymphocyte % 36.3 % (19-41); Mean Corp Hgb Conc 34.6 g/gl (32-36); Mean Platelet Vol. 9.4 fl (6.2-12.0); Monocyte# 0.84 X10^3/uL; Monocyte% 8.3 % (0-10); Neutrophil # 5.44 X10^3/uL (2.7-7.7); Neutrophil % 53.4 % (47-70); Platelet Count 283 K/mm3 (150-450); RBC Distribution Width CV 22.1 % (11.6-14.6); RBC Distribution Width SD 63.2 fl (35.1-43.9); Red Blood Count 5.96 M/mm3 (4.6-6.2); White Blood Count 10.2 K/mm3 (4.4-11.0)
[2019-03-16 04:29] LABS: Differential Indicated SCAN CRITERIA MET; POSITIVE COUNT NO; POSITIVE DIFFERENTIAL NO; POSITIVE MORPHOLOGY YES
[2019-03-16 04:33] LABS: Anion Gap 8 (5-15); BUN 12 mg/dL (7-18); BUN/Creat Ratio 12.7 RATIO (10-20); Calcium,Total 9.1 mg/dL (8.5-10.1); Chloride 108 mmol/L (98-107); Creatinine, Serum 0.94 mg/dL (0.70-1.30); EST Glomerular Filtration Rate 90 mL/min (>60); Est Glom Filt Rate - Afr Amer 109 mL/min (>60); Estimated Creatinine Clearance 101.25 ml/min; Glucose 105 mg/dL (74-106); Potassium 3.8 mmol/L (3.5-5.1); Sodium Level 142 mmol/L (136-145)
[2019-03-16] MEDS: Ondansetron 4 MG/2 ML Vial IV (04:34)
--- NOTE | 2019-03-16 04:50 | ED.DEP ---
ED Disposition - Plan for ED Patient: Disposition: Home or Assisted Living Instructions: ED Tachycardia Pat PSVT Referrals: Ar Mckeon MD [Primary Care Provider] - As Needed Additional Instructions: Continue current medications. Return if feeling worse.
[2019-03-16 05:06] VITALS: BP 110/94; PULSE 90; RESP 16; O2SAT 98
[2019-03-16 05:12] LABS: Anisocytosis 2+; Differential Comment SCANNED; Microcytosis 2+
--- NOTE | 2019-03-25 05:51 | ED.RN ---
OPENED CHART PER REQUEST OF [facility] ER REQUEST FOR MEDICAL RECORDS, REQUESTED INFORMATION WAS FAXED.
== END 2019-03-16 05:08 | disposition home or self-care (01) ==
PROVIDERS: Emergency Provider Emergency Medicine; Family Provider Family Medicine; PCP Family Medicine
DX: I47.1 Supraventricular tachycardia (principal); R07.9 Chest pain, unspecified; I25.2 Old myocardial infarction; I48.91 Unspecified atrial fibrillation; I71.2 Thoracic aortic aneurysm, without rupture; I10 Essential (primary) hypertension; Z79.01 Long term (current) use of anticoagulants; Z79.899 Other long term (current) drug therapy; Z86.73 Personal history of transient ischemic attack (TIA), and cerebral infarction without residual deficits
CPT/HCPCS: 71045; 80048; 84484; 85025; 93005; 96374; 96375; 99284; J7030; A4216; J0153; J2405

== ENCOUNTER 2019-03-28 15:50 | Emergency (ER) | payer MEDICARE, SELFPAY ==
[2019-03-28 15:51] VITALS: BP 146/92; PULSE 102; RESP 16; TEMP 36.6; O2SAT 99; BMI 32.4
--- NOTE | 2019-03-28 16:26 | CT_ITS ---
STUDY: CT ABDOMEN AND PELVIS WITHOUT CONTRAST REASON FOR EXAM: Male, 49 years old. Right groin pain with known right inguinal hernia RADIATION DOSAGE (If Supplied By Facility): CTDIvol = ( 18.92 ) mGy, DLP = ( 1167.37 ) mGycm TECHNIQUE: Transaxial images were obtained from the dome of the diaphragm to the symphysis pubis without oral contrast, and without intravenous contrast. Sagittal and coronal images were reconstructed. Individualized dose optimization techniques were used for this CT. COMPARISON: 02/21/2019 FINDINGS: The visualized lung bases are unremarkable. The visualized portions of the heart are within normal limits. Normal liver. Normal gallbladder and extrahepatic biliary system. Normal spleen. Normal pancreas. Normal bilateral adrenal glands. Similar punctate renal calculi. No hydronephrosis or ureter calculi seen. Normal visualized stomach. Normal small intestine. Normal colon. The appendix is visualized and appears normal. Normal abdominal aorta. Normal inferior vena cava. Normal retroperitoneum. Nondistended urinary bladder. There are bilateral inguinal hernia containing adipose tissue. Similar degenerative and operative changes of the lumbar spine. CT/Abdomen/Pelvis without Cont IMPRESSION: Similar bilateral nephrolithiasis without evidence of hydronephrosis or ureteric calcification. Electronically Signed: Pavan Trinh MD at 17:30 EDT , Service support ,
[2019-03-28] MEDS: 0.9% Normal Saline 1,000 ML 1000 ML IV (16:48)
[2019-03-28] MEDS: Morphine 4 MG/ML Syringe IV (16:48)
[2019-03-28] MEDS: Ondansetron 4 MG/2 ML Vial IV (16:48)
[2019-03-28 17:26] LABS: Color, Urine Yellow (Yellow); Glucose, Dipstick Normal (Normal); Ketone-Dipstick Negative (Negative); Leukocyte Esterase-Dipstick 25 /ul (Negative); Nitrite-Dipstick Negative (Negative); Occult Blood-Urine 10 /ul (Negative); Protein-Dipstick 15 mg/dl (Negative); Specific Gravity, Urine 1.015 (1.002-1.030); Urine Bilirubin Dipstick Negative (Negative); Urine Clarity Clear (Clear); Urine Urobilinogen Normal (Normal)
[2019-03-28 17:51] LABS: Bacteria RARE /hpf (None Seen); Mucous, Urine 2+ /hpf (<or=2+); Red Blood Cells-Urine 0-5 SEEN /hpf (0-5); Squamous Epithelial Cells - UA 0-5 SEEN /hpf (0-5); White Blood Cells 0-5 SEEN /hpf (0-5)
--- NOTE | 2019-03-28 18:00 | ED.VISSUMM ---
- ER Visit Summary Date of Service: 03/28/19 Chief Complaint: Abdominal pain History of Present Illness: The patient is a [address] Mckeon. He reports that he has recently been diagnosed with inguinal hernias. States that he has had pain in the right inguinal region that began 2 days ago. However, it became much worse 2 hours ago. It is a continuous sharp pain. Is 10 out of 10 at worst 9-10 currently. Is worsened by movement relieved by remaining still. Is been nausea and vomited once. No blood in his emesis. He is also had 2 episodes of diarrhea yesterday. No blood in stools or black tarry stools. On review of system he reports that he also has dysuria that began today. Physical Examination: Vitals: Stable. Afebrile. General: Well-nourished and well-developed. Head: Normocephalic atraumatic. Neck: Supple, no lymphadenopathy. No JVD. Nontender. Cardiovascular: Regular rate and rhythm. No murmurs. Respiratory: No respiratory distress. Clear to auscultation bilaterally. Abdominal: Soft, Mild tenderness to palpation the right inguinal region. I do not appreciate any herniated contents. Nondistended, normal bowel sounds. No guarding, rebound, or peritoneal signs. Back: Nontender. Extremities: Nontender, no edema. Skin: Normal color, no rash. Neurologic: Alert and oriented ?3. Cranial nerves II through XII are intact. Normal strength and sensation. Psych: Normal affect. Test Results: Urinalysis is negative. CT shows bilateral inguinal hernias with only adipose tissue present. Clinical Impression(s) from Imaging Studies Abdomen/Pelvis CT 03/28/19 16:26 IMPRESSION: Similar bilateral nephrolithiasis without evidence of hydronephrosis or ureteric calcification. Electronically Signed: Pavan Trinh MD at 17:30 EDT , Service support , Emergency Department Course and Treatment: Patient was treated with a dose of morphine and Zofran IV. He is resting comfortably. An [facility] report was obtained which shows he has had 20 prescriptions for opiates in the past year. At this time I do not feel that putting him on an opiate-based medication is in his best interest. Treatment Plan: Patient will be discharged with instructions to follow-up Dr. Chavira in 2 days as previously scheduled. Return to the emergency department for any worsening symptoms. Disposition: To home in improved and stable condition. Impression: 1. Bilateral inguinal hernias. This note was generated with [employer] dictation software. It may contain incorrect words, spelling, and punctuation that were not noted in review of the chart prior to signing ED Disposition - Plan for ED Patient: Disposition: Home or Assisted Living Instructions: ED Hernia Inguinal Referrals: Conrad Ga MD [STAFF PHYSICIAN] - Keep Gabrielle appointment
[2019-03-28 18:22] VITALS: BP 128/99; PULSE 67; RESP 16; O2SAT 99
[2019-03-28 18:23] VITALS: BP 128/99; PULSE 67; RESP 16; O2SAT 99
== END 2019-03-28 18:24 | disposition home or self-care (01) ==
LOC: ED 16:26
PROVIDERS: Emergency Provider Emergency Medicine; Family Provider Family Medicine; PCP Family Medicine
DX: K40.20 Bilateral inguinal hernia, without obstruction or gangrene, not specified as recurrent (principal); I48.91 Unspecified atrial fibrillation; I10 Essential (primary) hypertension; Z79.01 Long term (current) use of anticoagulants; Z79.899 Other long term (current) drug therapy
CPT/HCPCS: 74176; 81001; 96361; 96374; 96375; 99285; J7030; A4216; J2405

== ENCOUNTER 2019-03-31 18:58 | Emergency (ER) | payer MEDICARE, SELFPAY ==
[2019-03-31] VITALS (8 sets, daily range): BP systolic 102–161; BP diastolic 65–110; PULSE 81–168; RESP 11–29; TEMP 36.4; O2SAT 75–100; BMI 32.8
--- NOTE | 2019-03-31 19:15 | EKG12_ITS ---
Test Reason : CONFIRM RHYTHM Blood Pressure : / mmHG Vent. Rate : 081 BPM Atrial Rate : 081 BPM P-R Int : 174 ms QRS Dur : 080 ms QT Int : 364 ms P-R-T Axes : 009 001 010 degrees QTc Int : 422 ms Normal sinus rhythm Minimal voltage criteria for LVH, may be normal variant Borderline ECG Confirmed by EDEL CASE ([id number]), website/blog editor STEFFANIE MADISON ([id number]) on 04/02/2019 11:38:28 AM Referred By: GALI Confirmed By:GERALD CASE
[2019-03-31] MEDS: Propofol 200 MG/20 ML Vial IV BOLUS (19:49)
[2019-03-31 19:57] LABS: Absolute Lymphocyte Count 3.46 X10^3/ul (0.83-4.51); Absolute Neutrophil Count 4.8 X10^3/uL (2.0-7.7); Basophil# 0.04 X10^3/uL; Basophil% 0.4 % (0-1); Eosinophil# 0.16 X10^3/uL; Eosinophils% 1.7 % (0-5); Hemoglobin 16.9 g/dl (13.0-16.5); Lymphocyte # 3.46 X10^3/ul (4.0); Lymphocyte % 36.4 % (19-41); Mean Corp Hgb Conc 34.5 g/gl (32-36); Mean Corpuscular Hgb 27.5 pg (27.0-32.0); Mean Corpuscular Volume 79.7 fL (80-94); Mean Platelet Vol. 9.4 fl (6.2-12.0); Monocyte# 1.02 X10^3/uL; Monocyte% 10.7 % (0-10); Neutrophil % 50.6 % (47-70); Platelet Count 365 K/mm3 (150-450); RBC Distribution Width CV 20.4 % (11.6-14.6); RBC Distribution Width SD 58.2 fl (35.1-43.9); Red Blood Count 6.15 M/mm3 (4.6-6.2); White Blood Count 9.5 K/mm3 (4.4-11.0)
[2019-03-31 20:00] LABS: Anion Gap 7 (5-15); BUN 14 mg/dL (7-18); BUN/Creat Ratio 15.2 RATIO (10-20); Calcium,Total 9.1 mg/dL (8.5-10.1); Chloride 107 mmol/L (98-107); Creatinine, Serum 0.92 mg/dL (0.70-1.30); Differential Indicated SCAN CRITERIA MET; EST Glomerular Filtration Rate 93 mL/min (>60); Est Glom Filt Rate - Afr Amer 112 mL/min (>60); Estimated Creatinine Clearance 103.45 ml/min; Glucose 102 mg/dL (74-106); POSITIVE COUNT NO; POSITIVE DIFFERENTIAL NO; POSITIVE MORPHOLOGY YES; Potassium 3.2 mmol/L (3.5-5.1); Sodium Level 139 mmol/L (136-145)
--- NOTE | 2019-03-31 20:14 | EKG12_ITS ---
Test Reason : CP Blood Pressure : / mmHG Vent. Rate : 169 BPM Atrial Rate : 088 BPM P-R Int : 000 ms QRS Dur : 084 ms QT Int : 282 ms P-R-T Axes : 000 026 -09 degrees QTc Int : [address] depression, related to the tachyca rdia Abnormal ECG Confirmed by EDEL CASE ([id number]), online editor STEFFANIE MADISON ([id number]) on 04/02/2019 11:40:10 AM Referred By: GALI Confirmed By:GERALD CASE
[2019-03-31 20:19] LABS: Anisocytosis 1+; Microcytosis RARE; Platelet Estimate ADEQUATE (ADEQ)
[2019-03-31] MEDS: Morphine 4 MG/ML Syringe IV (20:19)
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
[2019-03-31] MEDS: Silver Sulfadiazine 1% Crm 50 gm Bottle 1 APPLIC TOPICAL (21:51)
== END 2019-03-31 21:52 | disposition home or self-care (01) ==
PROVIDERS: Emergency Provider Emergency Medicine; Family Provider Family Medicine; PCP Family Medicine
DX: I48.0 Paroxysmal atrial fibrillation (principal); I48.92 Unspecified atrial flutter; E87.6 Hypokalemia; I10 Essential (primary) hypertension; F32.9 Major depressive disorder, single episode, unspecified; F41.9 Anxiety disorder, unspecified; G47.33 Obstructive sleep apnea (adult) (pediatric); E66.9 Obesity, unspecified; Z79.01 Long term (current) use of anticoagulants; Z79.899 Other long term (current) drug therapy
CPT/HCPCS: 80048; 83735; 85025; 92960; 93005; 96374; 99284; J7030; A4216

== ENCOUNTER 2019-05-01 00:26 | Emergency (ER) | payer MEDICARE, SELFPAY ==
[2019-03-31 19:00] VITALS: BMI 32.8
[2019-05-01 00:26] VITALS: BP 142/89; PULSE 99; RESP 18; TEMP 36.4; O2SAT 100; BMI 33.0
[2019-05-01 00:32] VITALS: PULSE 98; RESP 16; TEMP 36.4; O2SAT 98
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
--- NOTE | 2019-05-01 00:46 | ED.DCSUM_ITS ---
History of Present Illness Chief Complaint: Wound Check Detail of Chief Complaint: Right inguinal hernia wound Informant: Patient Onset: Yesterday Current Severity: Mild Maximum Severity: Mild Narrative: Patient had right inguinal hernia repair on April [address] Chavira. Patient states he woke yesterday morning and had drainage and bleeding from the wound. He was seen by Dr. Chavira in the office. He was started on clindamycin. Patient states he fell asleep in his chair tonight when he awoke had fluid and blood draining from the wound again. He has had some chills but no fever. - Past Medical History (1) Vertigo Status: Acute (2) Anxiety Status: Chronic (3) Atherosclerotic heart disease of [place] coronary artery without angina pectoris Status: Chronic (4) Atrial fibrillation and flutter Status: Chronic (5) BPPV (benign paroxysmal positional vertigo) Status: Chronic (6) Essential hypertension Status: Chronic (7) GERD (gastroesophageal reflux disease) Status: Chronic (8) HLD (hyperlipidemia) Status: Chronic (9) Nephrolithiasis Status: Chronic (10) LORETTA (obstructive sleep apnea) Status: Chronic (11) PAF (paroxysmal atrial fibrillation) Status: Chronic (12) SVT (supraventricular tachycardia) Status: Chronic (13) Thoracic aortic aneurysm without rupture Status: Chronic (14) History of cardiac radiofrequency ablation Status: Resolved Comment: 10/09/[address] [facility] [address] Andrew Past Medical History - Allergies and Home Meds Allergies/Adverse Reactions: Allergies clonidine Allergy (Intermediate, Verified 05/01/19 00:28) rash levofloxacin [From Levaquin] Allergy (Verified 05/01/19 00:28) Rash Penicillins Allergy (Verified 05/01/19 00:28) Hives bupropion Adverse Reaction (Intermediate, Verified 05/01/19 00:28) vomiting celecoxib [From Celebrex] Adverse Reaction (Intermediate, Verified 05/01/19 00:28) vomiting eletriptan Adverse Reaction (Intermediate, Verified 05/01/19 00:28) Vomiting topiramate [From Topamax] Adverse Reaction (Intermediate, Verified 05/01/19 00:28) vomiting hydrocodone bitartrate [From Vicodin] Adverse Reaction (Verified 05/01/19 00:28) Nausea ketorolac [From Toradol] Adverse Reaction (Verified 05/01/19 00:28) Other PT ON BLOOD THINNERS, PER DR KAYLEIGH BROWER Primary Care Physician: Ar Mckeon MD [Primary Care Provider] - Prior records reviewed: Yes Past Medical History: - - Reviewed Surgical History: - - Left heart catheterization 1 year ago and ablation Smoking Status: Never smoker - Family History Maternal Family History: Family History (Last Reviewed 12/13/18 @ 21:07 by Jayden Mike MD) Brother Hypertension Mother Heart disease Colon cancer Sister Diabetes Sister Diabetes Sister Diabetes Family History: Reports: - - Maternal family history of DM, Colon CA, Valvular Heart Disease. Paternal Family History: Family History (Last Reviewed 12/13/18 @ 21:07 by Jayden Mike MD) Brother Hypertension Mother Heart disease Colon cancer Sister Diabetes Sister Diabetes Sister Diabetes Family History: Reports: - - Paternal family history of skin CA. Review of Systems General: Reports: Chills. Denies: Fever Cardiovascular: Denies: Chest pain Respiratory: Denies: Dyspnea, Cough Gastrointestinal: Reports: Abdominal pain. Denies: Nausea, Vomiting Neurological: Denies: Headache Physical Exam Vital Signs/Narrative: Vital Signs Temp Pulse Resp BP Pulse Ox 05/01/19 00:32 97.6 F L 98 16 98 05/01/19 00:26 97.6 F L 99 18 142/89 H 100 Inital Vital Signs reviewed: Yes General: Well nourished, Well developed ENT: Moist mucous membranes Cardiovascular: Regular rate, Regular rhythm Respiratory: No distress, CTA bilaterally Abdomen: Soft, - - Mild tenderness palpation along the right inguinal hernia surgical scar. Area around the wound is firm. There is minimal erythema. There is no spontaneous drainage from the incision at this time. I do not feel any surrounding fluctuance. Skin: - - As above Neurological: Alert, Oriented x3 Psychological: Normal affect Diagnostic/Tx/Re-eval Impressions Pelvis CT 05/01/19 00:45 IMPRESSION: Diffuse hemorrhage in the subcutaneous soft tissues in the right inguinal region. Electronically Signed: Dru Granados, at 2:33 EDT Tel , Service support , 05/01/19 00:45 CT Pel [Pelvis without IV Contrast] [CT] Stat Laboratory Results 05/01/19 05/01/19 00:55 00:55 WBC 8.2 RBC 4.40 L Hgb 12.7 L Hct 38.1 L MCV 86.6 MCH 28.9 MCHC 33.3 RDW 14.6 RDW Differential 43.5 Plt Count 257 MPV 8.6 Immature Gran % (Auto) 0.400 Neut % (Auto) 62.1 Lymph % (Auto) 26.1 [place] % (Auto) 9.5 Eos % (Auto) 1.5 Baso % (Auto) 0.4 Absolute Neuts (auto) 5.1 Absolute Lymphs (auto) 2.13 Total Counted Not Reportable Sodium 142 Potassium 3.7 Chloride 111 H Carbon Dioxide 25.0 Anion Gap 6 BUN 10 Creatinine 0.75 Estim Creat Clear Calc 126.89 Est GFR (MDRD) Af Amer 143 Est GFR (MDRD) Non-Af 118 BUN/Creatinine Ratio 13.4 Glucose 88 Calcium 8.5 - Medical Decision Making Patient is currently on Eliquis. Blood counts are stable. CT scan does show area of diffuse hemorrhage in the subcu tissues. I spoke with Dr. Lerma, on-call for Dr. Ga. Their office will call the patient and he will be reevaluated in the office today. When I went back to reevaluate the patient he states he was having some throbbing around his surgical site. He is given a single dose of oxycodone here. ED Disposition - Plan for ED Patient: Disposition: Home or Assisted Living Instructions: POST OP WOUND CHECK, Pain, POST OP WOUND CHECK, Bleeding Referrals: Ar Mckeon MD [Primary Care Provider] - Conrad Ga MD [STAFF PHYSICIAN] - Additional Instructions: Dr Ga's office will call you to be seen in the office today.
[2019-05-01 01:09] LABS: Absolute Lymphocyte Count 2.13 X10^3/ul (0.83-4.51); Absolute Neutrophil Count 5.1 X10^3/uL (2.0-7.7); Basophil# 0.03 X10^3/uL; Basophil% 0.4 % (0-1); Eosinophil# 0.12 X10^3/uL; Eosinophils% 1.5 % (0-5); Hematocrit 38.1 % (40-54); Hemoglobin 12.7 g/dl (13.0-16.5); Lymphocyte # 2.13 X10^3/ul (4.0); Lymphocyte % 26.1 % (19-41); Mean Corp Hgb Conc 33.3 g/gl (32-36); Mean Corpuscular Hgb 28.9 pg (27.0-32.0); Mean Corpuscular Volume 86.6 fL (80-94); Mean Platelet Vol. 8.6 fl (6.2-12.0); Monocyte# 0.78 X10^3/uL; Monocyte% 9.5 % (0-10); Neutrophil # 5.08 X10^3/uL (2.7-7.7); Neutrophil % 62.1 % (47-70); Platelet Count 257 K/mm3 (150-450); RBC Distribution Width CV 14.6 % (11.6-14.6); RBC Distribution Width SD 43.5 fl (35.1-43.9); White Blood Count 8.2 K/mm3 (4.4-11.0)
[2019-05-01 01:12] LABS: POSITIVE COUNT NO; POSITIVE DIFFERENTIAL NO; POSITIVE MORPHOLOGY NO
[2019-05-01 01:14] LABS: Anion Gap 6 (5-15); BUN 10 mg/dL (7-18); BUN/Creat Ratio 13.4 RATIO (10-20); Calcium,Total 8.5 mg/dL (8.5-10.1); Chloride 111 mmol/L (98-107); Creatinine, Serum 0.75 mg/dL (0.70-1.30); EST Glomerular Filtration Rate 118 mL/min (>60); Est Glom Filt Rate - Afr Amer 143 mL/min (>60); Estimated Creatinine Clearance 126.89 ml/min; Glucose 88 mg/dL (74-106); Potassium 3.7 mmol/L (3.5-5.1); Sodium Level 142 mmol/L (136-145)
--- NOTE | 2019-05-01 01:26 | ED.RN ---
SEPSIS SCREENS DO NOT NEED DONE PER DR. STARK.
[2019-05-01 02:16] VITALS: BP 115/86; PULSE 88; RESP 18; O2SAT 100
[2019-05-01 02:54] VITALS: BP 126/92; PULSE 83; O2SAT 100
[2019-05-01] MEDS: oxyCODONE 5 MG Tablet PO (02:55)
== END 2019-05-01 03:03 | disposition home or self-care (01) ==
PROVIDERS: Emergency Provider Emergency Medicine; Family Provider Family Medicine; PCP Family Medicine
DX: L76.22 Postprocedural hemorrhage of skin and subcutaneous tissue following other procedure (principal); F41.9 Anxiety disorder, unspecified; I25.10 Atherosclerotic heart disease of native coronary artery without angina pectoris; H81.10 Benign paroxysmal vertigo, unspecified ear; I10 Essential (primary) hypertension; K21.9 Gastro-esophageal reflux disease without esophagitis; E78.5 Hyperlipidemia, unspecified; G47.33 Obstructive sleep apnea (adult) (pediatric); I48.0 Paroxysmal atrial fibrillation; I47.1 Supraventricular tachycardia; I71.2 Thoracic aortic aneurysm, without rupture; Z87.442 Personal history of urinary calculi; Z98.890 Other specified postprocedural states; Z79.01 Long term (current) use of anticoagulants; Z79.899 Other long term (current) drug therapy
CPT/HCPCS: 72192; 80048; 85025; 99285; A4216

== ENCOUNTER 2019-05-11 06:05 | Emergency (ER) | payer MEDICARE, SELFPAY ==
[2019-05-11 06:07] VITALS: BP 126/99; PULSE 79; RESP 18; TEMP 36.4; O2SAT 99; BMI 33.1
--- NOTE | 2019-05-11 06:15 | EKG12_ITS ---
Test Reason : Blood Pressure : / mmHG Vent. Rate : 081 BPM Atrial Rate : 081 BPM P-R Int : 166 ms QRS Dur : 082 ms QT Int : 368 ms P-R-T Axes : 015 009 018 degrees QTc Int : 427 ms Normal sinus rhythm Normal ECG Confirmed by NABILA CONNOR, JEANCARLOS ([id number]), manuscript editor STEFFANIE MADISON ([id number]) on 05/12/2019 1:40:10 PM Referred By: Confirmed By:JEANCARLOS DAHL MD
--- NOTE | 2019-05-11 06:15 | ED.VIS.GEN ---
History of Present Illness Chief Complaint: Chest Pain Informant: Patient Narrative: She stated that he went into A. fib at home. He felt palpitations and heart racing. He got lightheaded. It lasted for about 10 minutes and then went away. Currently he is feeling better. He came in for further evaluation. He has had 8 cardioversions per patient in the last year alone. He has a history of paroxysmal A. fib and SVT. 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 He has had these remotely. Patient recently had a negative heart cath that was clean. Patient takes medications for his A. fib. - Past Medical History (1) Stroke-like symptoms Status: Acute (2) Vertigo Status: Acute (3) Anxiety Status: Chronic (4) Atherosclerotic heart disease of [place] coronary artery without angina pectoris Status: Chronic (5) Atrial fibrillation and flutter Status: Chronic (6) BPPV (benign paroxysmal positional vertigo) Status: Chronic (7) Essential hypertension Status: Chronic (8) GERD (gastroesophageal reflux disease) Status: Chronic (9) HLD (hyperlipidemia) Status: Chronic (10) History of left heart catheterization Status: Chronic Comment: 11/09/2016 @ [facility], per Dr. Cory Harley: normal coronaries 04/07/2018 @ [facility] per Dr. Harris: normal coronaries (11) Nephrolithiasis Status: Chronic (12) LORETTA (obstructive sleep apnea) Status: Chronic (13) Obesity (BMI 30-39.9) Status: Chronic (14) PAF (paroxysmal atrial fibrillation) Status: Chronic (15) SVT (supraventricular tachycardia) Status: Chronic (16) Thoracic aortic aneurysm without rupture Status: Chronic (17) History of cardiac radiofrequency ablation Status: Resolved Comment: 10/09/[address] [facility] [address] Andrew Past Medical History - Allergies and Home Meds Allergies/Adverse Reactions: Allergies clonidine Allergy (Intermediate, Verified 05/11/19 06:11) rash levofloxacin [From Levaquin] Allergy (Verified 05/11/19 06:11) Rash Penicillins Allergy (Verified 05/11/19 06:11) Hives bupropion Adverse Reaction (Intermediate, Verified 05/11/19 06:11) vomiting celecoxib [From Celebrex] Adverse Reaction (Intermediate, Verified 05/11/19 06:11) vomiting eletriptan Adverse Reaction (Intermediate, Verified 05/11/19 06:11) Vomiting topiramate [From Topamax] Adverse Reaction (Intermediate, Verified 05/11/19 06:11) vomiting hydrocodone bitartrate [From Vicodin] Adverse Reaction (Verified 05/11/19 06:11) Nausea ketorolac [From Toradol] Adverse Reaction (Verified 05/11/19 06:11) Other PT ON BLOOD THINNERS, PER DR VICTOR HAVE TORADOL Primary Care Physician: Ar Mckeon MD [Primary Care Provider] - Prior records reviewed: Yes Past Medical History: - - See problem list?reviewed Surgical History: - - Left heart catheterization 1 year ago and ablation Lives: Spouse/ Significant Other Smoking Status: Never smoker Alcohol: None Drugs: None - Family History Maternal Family History: Family History (Last Reviewed 12/13/18 @ 21:07 by Jayden Mike MD) Brother Hypertension Mother Heart disease Colon cancer Sister Diabetes Sister Diabetes Sister Diabetes Family History: Reports: - - Maternal family history of DM, Colon CA, Valvular Heart Disease. Paternal Family History: Family History (Last Reviewed 12/13/18 @ 21:07 by Jayden Mike MD) Brother Hypertension Mother Heart disease Colon cancer Sister Diabetes Sister Diabetes Sister Diabetes Family History: Reports: - - Paternal family history of skin CA. Review of Systems General: Denies: Chills, Fever, Sweats Eyes: Denies: Visual changes - bilaterally, Diplopia ENT: Denies: Rhinorrhea, Sore throat Cardiovascular: Reports: Chest pain, Palpitations, Heart racing Respiratory: Denies: Dyspnea, Cough, Dyspnea on exertion Gastrointestinal: Denies: Abdominal pain, Nausea, Vomiting, Diarrhea, Melena, Hematochezia Genitourinary: Denies: Dysuria, Hematuria, Frequency Musculoskeletal: Denies: Back pain, Extremity Pain Skin: Denies: Rash, Wounds Neurological: Denies: Headache, Weakness, Numbness Physical Exam Vital Signs/Narrative: Vital Signs Temp Pulse Resp BP Pulse Ox 05/11/19 06:07 97.6 F L 79 18 126/99 H 99 General: Well nourished, Well developed, No Acute Distress Head: Normocephalic, Atraumatic Eyes: Perrl, EOMI ENT: Moist mucous membranes, No rhinorrhea Neck: Supple, Nontender Cardiovascular: Regular rate, Regular rhythm, No murmurs Respiratory: No distress, CTA bilaterally, Chest nontender Abdomen: Soft, Nontender, Nondistended, Normal bowel sounds Back: Nontender, Normal Inspection Extremities: Nontender, No edema Skin: Normal color, No rash Neurological: Alert, Oriented x3, Cranial nerves II-XII grossly intact, Normal Strength, Normal Sensation Psychological: Normal affect, Normal Mood Diagnostic/Tx/Re-eval - Medical Decision Making KG shows normal sinus rhythm at a rate 81. The patient is no longer in a tachycardic rhythm. I suspect he had transient A. fib that resolved or SVT. He has had multiple cardioversions. He is washed on the monitor. Reassured. I do not think he needs further lab work or imaging. 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
[2019-05-11] MEDS: Ondansetron ODT 4 MG Tablet 8 MG PO (07:10)
[2019-05-11 07:11] VITALS: BP 99/67; PULSE 76; RESP 18; O2SAT 98
== END 2019-05-11 07:12 | disposition home or self-care (01) ==
PROVIDERS: Emergency Provider Emergency Medicine; Family Provider Family Medicine; PCP Family Medicine
DX: R00.2 Palpitations (principal); I25.10 Atherosclerotic heart disease of native coronary artery without angina pectoris; I10 Essential (primary) hypertension; I48.0 Paroxysmal atrial fibrillation; I48.92 Unspecified atrial flutter; I47.1 Supraventricular tachycardia; I71.2 Thoracic aortic aneurysm, without rupture; K21.9 Gastro-esophageal reflux disease without esophagitis; F41.9 Anxiety disorder, unspecified; E78.5 Hyperlipidemia, unspecified; H81.10 Benign paroxysmal vertigo, unspecified ear; E66.9 Obesity, unspecified; Z68.33 Body mass index [BMI] 33.0-33.9, adult; Z79.899 Other long term (current) drug therapy; Z79.01 Long term (current) use of anticoagulants
CPT/HCPCS: 93005; 99283

== ENCOUNTER 2019-05-20 20:48 | Emergency (ER) | payer MEDICARE, SELFPAY ==
[2019-05-20 20:49] VITALS: BP 131/86; PULSE 76; RESP 16; TEMP 36.6; O2SAT 98; BMI 32.5
--- NOTE | 2019-05-20 21:21 | ED.RN ---
per pt is not a septic pt,dcd protocal.
--- NOTE | 2019-05-20 21:36 | ED.DCSUM_ITS ---
- ER Visit Summary Date of Service: 05/20/19 Chief Complaint: Incisional bleeding History of Present Illness: The patient is a 49 M who presents with bleeding from his incision and his right inguinal area. Patient states he had a herniorrhaphy done by Dr. Ga on 04/22/2019. Patient states the bleeding b ecame worse again today. Patient states it was dark and bright red blood. Patient states he was seen in urgent care recently and had a culture done. Patient states he was placed on antibiotic recently. Patient states he is on Eliquis. Patient admits to nausea but denies any vomiting. Patient admits to subjective fevers at home. Patient also admits to increased anxiety recently. Physical Examination: Vital signs are stable. Patient is afebrile. Patient is in no acute distress. Heart was regular rate and rhythm. Lungs are clear and equal bilateral. Abdomen is soft. Bowel sounds are normal. There is no tenderness. The right inguinal incision appears to be healing well. There is a minimal amount of bleeding from the medial aspect of the incision. There is no erythema. There is no discharge or drainage. There is minimal tenderness. Cranial nerves II through XII are intact. There are no focal motor or sensory deficits noted. Test Results: CBC and basic metabolic profile within normal limits. PT with INR and PTT were normal. Emergency Department Course and Treatment: Patient had no further bleeding here in the emergency department. Patient was instructed to get plenty of rest. Patient was instructed to follow-up with Dr. Ga as scheduled. Patient and family understood and were agreeable with the plan. All questions were answered. Disposition: Discharge home Impression: Postoperative bleeding This note was generated with [employer] dictation software. It may contain incorrect words, spelling, and punctuation that were not noted in review of the chart prior to signing ED Disposition - Plan for ED Patient: Disposition: Home or Assisted Living Diagnosis: Postoperative bleeding from incision Instructions: POST OP WOUND CHECK, Bleeding Referrals: Ar Mckeon MD [Primary Care Provider] - 1-2 Weeks Conrad Ga MD [STAFF PHYSICIAN] - Keep Gabrielle appointment
[2019-05-20 21:41] LABS: Absolute Lymphocyte Count 2.42 X10^3/uL (0.83-4.51); Absolute Neutrophil Count 2.6 X10^3/uL (2.0-7.7); Basophil# 0.04 X10^3/uL; Basophil% 0.7 % (0-1); Eosinophil# 0.13 X10^3/uL; Eosinophils% 2.2 % (0-5); Hematocrit 43.7 % (40-54); Hemoglobin 14.7 g/dL (13.0-16.5); Lymphocyte # 2.42 X10^3/ul (4.0); Lymphocyte % 41.3 % (19-41); Mean Corp Hgb Conc 33.6 g/dL (32-36); Mean Corpuscular Hgb 29.6 pg (27.0-32.0); Mean Corpuscular Volume 87.9 fL (80-94); Mean Platelet Vol. 9.1 fl (6.2-12.0); Monocyte# 0.64 X10^3/uL; Monocyte% 10.9 % (0-10); NRBC Flagged by Analyzer 0 % (0-5); Neutrophil # 2.61 X10^3/uL (2.7-7.7); Neutrophil % 44.6 % (47-70); Platelet Count 231 K/mm3 (150-450); RBC Distribution Width CV 12.7 % (11.6-14.6); RBC Distribution Width SD 40.1 fl (35.1-43.9); Red Blood Count 4.97 M/mm3 (4.6-6.2); White Blood Count 5.9 K/mm3 (4.4-11.0)
[2019-05-20 21:54] LABS: Anion Gap 4 (5-15); BUN 12 mg/dL (7-18); Calcium,Total 8.7 mg/dL (8.5-10.1); Chloride 111 mmol/L (98-107); Creatinine, Serum 0.86 mg/dL (0.70-1.30); EST Glomerular Filtration Rate 101 mL/min (>60); Est Glom Filt Rate - Afr Amer 122 mL/min (>60); Estimated Creatinine Clearance 110.66 ml/min; Glucose 90 mg/dL (74-106); Potassium 3.8 mmol/L (3.5-5.1); Sodium Level 140 mmol/L (136-145)
[2019-05-20 22:32] LABS: Partial Thromboplast Time 31.9 Seconds (24.1-36.2); Prothrombin Time (Protime)PT. 13.4 SECONDS (11.7-14.9)
[2019-05-20 23:02] VITALS: BP 130/62; PULSE 75; RESP 18; O2SAT 98
== END 2019-05-20 23:02 | disposition home or self-care (01) ==
PROVIDERS: Emergency Provider Emergency Medicine; Family Provider Family Medicine; PCP Family Medicine
DX: L76.22 Postprocedural hemorrhage of skin and subcutaneous tissue following other procedure (principal); I10 Essential (primary) hypertension; I48.91 Unspecified atrial fibrillation; F41.9 Anxiety disorder, unspecified; Z79.01 Long term (current) use of anticoagulants; Z79.899 Other long term (current) drug therapy
CPT/HCPCS: 80048; 85025; 85610; 85730; 99284; A4216

== ENCOUNTER 2019-05-29 08:44 | Inpatient (IN) | payer MEDICARE, SELFPAY ==
[2019-05-29] VITALS (13 sets, daily range): BP systolic 125–156; BP diastolic 85–105; PULSE 66–98; RESP 16–20; TEMP 36.3–36.9; O2SAT 95–100; BMI 32.1; BMI 32.2
--- NOTE | 2019-05-29 09:02 | EKG12_ITS ---
Test Reason : NAUSEA AND V Blood Pressure : / mmHG Vent. Rate : 081 BPM Atrial Rate : 081 BPM P-R Int : 184 ms QRS Dur : 074 ms QT Int : 374 ms P-R-T Axes : 021 005 -02 degrees QTc Int : 434 ms Normal sinus rhythm Normal ECG Confirmed by ATTILA OLIVA ([id number]), sound editor LINDA MORALES ([id number]) on 06/01/2019 1:56:34 PM Referred By: Veda Ramon Confirmed By:ATTILA OLIVA
--- NOTE | 2019-05-29 09:02 | RAD_ITS ---
STUDY: X-RAY CHEST REASON FOR EXAM: Male, 49 years old. Shortness of breath. Nasogastric tube placement. TECHNIQUE: Single AP portable view of the chest. COMPARISON: Comparison is made with prior study dated March 16, 2019. FINDINGS: EKG electrodes are seen. The tip of the nasogastric tube is seen overlying the proximal/midportion of the esophagus. Elevation of the right hemidiaphragm. Mild linear atelectasis at the right lung base. There is no demonstrated pleural abnormality. Normal size heart. Prominence of the right paratracheal region. This is stable. Normal visualized pulmonary arteries. Normal visualized aortic arch and descending thoracic aorta. Normal visualized thoracic spine. Normal visualized ribs, clavicles, and shoulders. There is no demonstrated abnormality of the visualized soft tissue structures of the upper abdomen. RAD/Chest 1 View (Portable) IMPRESSION: The tip of the nasogastric tube is in the proximal/midportion of the esophagus. Stable widening of the right paratracheal region. Electronically Signed: Pablito Young, at 10:55 EDT , Service support ,
--- NOTE | 2019-05-29 09:05 | ED.DCSUM_ITS ---
- ER Visit Summary Date of Service: 05/29/19 Chief Complaint: Vomiting History of Present Illness: The patient is a 49 M presenting with nausea, vomiting since Saturday. Patient states he had several episodes of vomiting each day since Saturday. Yesterday he started having blood in his emesis. He went to see his primary care physician today who sent him to the ED because of the hematemesis. He is on Eliquis for history of A. fib. He complains of diffuse abdominal pain. He denies diarrhea. Denies blood in his stool. Denies other complaints. Physical Examination: Vitals are stable. Patient is afebrile. Alert no acute distress. HEENT exam is unremarkable. Neck is supple. Lungs are clear and equal bilaterally. Heart is regular rate and rhythm. Abdomen is soft mild diffuse tenderness with no guarding or rebound Extremities are unremarkable. Skin is warm and dry. No focal neurologic deficit. Remainder of exam is unremarkable. Emergency Department Course and Treatment: Patient given IV fluids, Phenergan. EKG is normal sinus rhythm rate of 81 with no acute ischemic changes. CBC, chemistries are unremarkable. Alk phos 131, AST 52, lipase 77. Troponin is negative. NG tube was placed and patient has coffee-ground emesis. KUB shows The tip of the nasogastric tube is in the body of the stomach. Patient was given Protonix IV. Discussed with Dr. Ramon and Dr. Ga and patient will be admitted. Disposition: Admission Impression: Upper GI bleed This note was generated with [employer] dictation software. It may contain incorrect words, spelling, and punctuation that were not noted in review of the chart prior to signing ED Disposition - Plan for ED Patient: Referrals: Ar Mckeon MD [Primary Care Provider] -
[2019-05-29] MEDS: Lidocaine 4% 5 ML Ampul 2 ML INHALATION ×2 (09:10→11:24)
[2019-05-29 09:15] LABS: Absolute Lymphocyte Count 1.53 X10^3/uL (0.83-4.51); Absolute Neutrophil Count 4.3 X10^3/uL (2.0-7.7); Basophil# 0.06 X10^3/uL; Basophil% 0.9 % (0-1); Eosinophil# 0.16 X10^3/uL; Eosinophils% 2.4 % (0-5); Hematocrit 43.9 % (40-54); Lymphocyte # 1.53 X10^3/ul (4.0); Lymphocyte % 22.5 % (19-41); Mean Corp Hgb Conc 34.2 g/dL (32-36); Mean Corpuscular Hgb 30.3 pg (27.0-32.0); Mean Corpuscular Volume 88.7 fL (80-94); Mean Platelet Vol. 8.7 fl (6.2-12.0); Monocyte# 0.68 X10^3/uL; NRBC Flagged by Analyzer 0 % (0-5); Neutrophil # 4.33 X10^3/uL (2.7-7.7); Neutrophil % 63.8 % (47-70); Platelet Count 231 K/mm3 (150-450); RBC Distribution Width CV 12.7 % (11.6-14.6); RBC Distribution Width SD 41.4 fl (35.1-43.9); Red Blood Count 4.95 M/mm3 (4.6-6.2); White Blood Count 6.8 K/mm3 (4.4-11.0)
[2019-05-29] MEDS: 0.9% Normal Saline 1,000 ML 1000 ML IV (09:19)
[2019-05-29] MEDS: proMETHazine 25 MG/ML Syringe 6.25 MG IV (09:19)
[2019-05-29 09:32] LABS: AST(SGOT) 52 U/L (15-37); Alanine Aminotransfer ALT/SGPT 49 U/L (16-61); Albumin, Serum 3.6 g/dL (3.2-5.0); Alkaline Phosphatase 131 U/L (45-117); Anion Gap 8 (5-15); BUN 12 mg/dL (7-18); BUN/Creat Ratio 12.4 RATIO (10-20); Calcium,Total 8.9 mg/dL (8.5-10.1); Chloride 107 mmol/L (98-107); Creatinine, Serum 0.97 mg/dL (0.70-1.30); EST Glomerular Filtration Rate 88 mL/min (>60); Est Glom Filt Rate - Afr Amer 106 mL/min (>60); Estimated Creatinine Clearance 98.11 ml/min; Globulin 3.5 g/dL (2.2-4.2); Glucose 79 mg/dL (74-106); Lipase 77 U/L (73-393); Potassium 3.9 mmol/L (3.5-5.1); Protein, Total 7.1 g/dL (6.4-8.2); Sodium Level 141 mmol/L (136-145)
[2019-05-29] MEDS: Morphine 4 MG/ML Syringe IV ×2 (11:07→12:14)
--- NOTE | 2019-05-29 11:53 | RAD_ITS ---
STUDY: X-RAY - ABDOMEN/PELVIS REASON FOR EXAM: Male, 49 years old. Nasogastric tube placement. TECHNIQUE: Single AP view of the abdomen / pelvis. COMPARISON: Comparison is made with prior examination earlier today. FINDINGS: The tip of the nasogastric tube is in the body of the stomach. RAD/Abdomen Single View (Portable) IMPRESSION: The tip of the nasogastric tube is in the body of the stomach. Electronically Signed: Pablito Young, at 12:36 EDT , Service support ,
[2019-05-29] MEDS: Ondansetron 4 MG/2 ML Vial IV (12:04)
--- NOTE | 2019-05-29 12:56 | HP.PCM_ITS ---
Problem List (1) Essential hypertension Status: Chronic (2) Atrial fibrillation and flutter Status: Chronic (3) SVT (supraventricular tachycardia) Status: Chronic (4) LORETTA (obstructive sleep apnea) Status: Chronic (5) Anxiety Status: Chronic (6) PAF (paroxysmal atrial fibrillation) Status: Chronic (7) GERD (gastroesophageal reflux disease) Status: Chronic Qualifiers: Esophagitis presence: esophagitis presence not specified Qualified Code(s): K21.9 - Gastro-esophageal reflux disease without esophagitis (8) Obesity (BMI 30-39.9) Status: Chronic History of Present Illness Date of Admission: 05/29/19 Chief Complaint: Coffee-ground emesis The patient is a 49 year old M with multiple comorbidities including paroxysmal atrial fibrillation, anxiety disorder who comes in feeling unwell for the past 4 days. He complained of feeling lightheaded, feeling fatigued and dizzy. He had fallen a couple of times over the last 4 days. Multiple times in the bathroom. Patient had severe nausea with vomiting over the last 2 days. Vomitus contents coffee-ground material. He is on Eliquis for the A. fib. He denies any use of NSAIDs. Vitals in the ED showed temperature 98.0 F, heart rate 83, blood pressure 142/102, respiratory rate 70, SPO2 100% on room air. Admitting blood work showed WBC count of 6.8, hemoglobin 15.0, platelet count of 231, BMP was unremarkable. Past Medical History Past Medical History (Chronic Problems): Chronic Problems (Last Reviewed 12/13/18 @ 21:07 by Jayden iMke MD) Essential hypertension (Chronic) Atrial fibrillation and flutter (Chronic) SVT (supraventricular tachycardia) (Chronic) LORETTA (obstructive sleep apnea) (Chronic) Atherosclerotic heart disease of [place] coronary artery without angina pectoris (Chronic) History of left heart catheterization (Chronic) 11/09/2016 @ [facility], [place], per Dr. Cory Harley: normal coronaries 04/07/2018 @ [facility] per Dr. Harris: normal coronaries Nephrolithiasis (Chronic) Anxiety (Chronic) PAF (paroxysmal atrial fibrillation) (Chronic) GERD (gastroesophageal reflux disease) (Chronic) Obesity (BMI 30-39.9) (Chronic) BPPV (benign paroxysmal positional vertigo) (Chronic) HLD (hyperlipidemia) (Chronic) Thoracic aortic aneurysm without rupture (Chronic) Medical History: Medical History (Last Reviewed 12/13/18 @ 21:07 by Jayden Mike MD) SVT (supraventricular tachycardia) (Chronic) I47.1 LORETTA (obstructive sleep apnea) (Chronic) G47.33 Atherosclerotic heart disease of [place] coronary artery without angina pectoris (Chronic) I25.10 Nephrolithiasis (Chronic) N20.0 Anxiety (Chronic) F41.9 PAF (paroxysmal atrial fibrillation) (Chronic) I48.0 GERD (gastroesophageal reflux disease) (Chronic) K21.9 Obesity (BMI 30-39.9) (Chronic) E66.9 BPPV (benign paroxysmal positional vertigo) (Chronic) H81.10 HLD (hyperlipidemia) (Chronic) E78.5 Thoracic aortic aneurysm without rupture (Chronic) I71.2 Allergies clonidine Allergy (Intermediate, Verified 05/29/19 08:45) rash clindamycin Allergy (Verified 05/29/19 08:45) Rash doxycycline Allergy (Verified 05/29/19 08:45) Rash levofloxacin [From Levaquin] Allergy (Verified 05/29/19 08:45) Rash Penicillins Allergy (Verified 05/29/19 08:45) Hives bupropion Adverse Reaction (Intermediate, Verified 05/29/19 08:45) vomiting celecoxib [From Celebrex] Adverse Reaction (Intermediate, Verified 05/29/19 08:45) vomiting eletriptan Adverse Reaction (Intermediate, Verified 05/29/19 08:45) Vomiting topiramate [From Topamax] Adverse Reaction (Intermediate, Verified 05/29/19 08:45) vomiting hydrocodone bitartrate [From Vicodin] Adverse Reaction (Verified 05/29/19 08:45) Nausea ketorolac [From Toradol] Adverse Reaction (Verified 05/29/19 08:45) Other PT ON BLOOD THINNERS, PER DR KAYLEIGH LOREDO TORADOL Home Medications: Ambulatory Orders Medication Instructions Recorded Pantoprazole Sodium [Protonix] 40 mg PO DAILY 04/22/16 Albuterol Inhaler [Ventolin Hfa] 1 - 2 puff INHALATION Q4H PRN PRN 07/15/17 #1 inhaler Apixaban [Eliquis] 5 mg PO BID 09/21/17 Fluticasone 0.05% [Flonase Nasal 1 spray NASAL DAILY #1 nasal.sry 08/31/18 [place]] Promethazine HCl 25 mg PO DAILY PRN 08/31/18 Amlodipine Besylate [Norvasc] 5 mg PO BID 11/06/18 Nitroglycerin (INPATIENT USE) 0.4 mg SUBLINGUAL Q5M PRN 11/06/18 [Nitrostat] Atorvastatin Calcium [Lipitor] 20 mg PO DAILY 11/21/18 Ondansetron [Zofran Odt] 4 mg PO Q8H PRN PRN #10 tablet 11/24/18 Sotalol HCl [Sotalol] 160 mg PO BID 05/11/19 Lisinopril 5 mg PO DAILY 05/29/19 Meclizine HCl [Antivert] 12.5 mg PO DAILY PRN PRN 05/29/19 Metoprolol Succinate [Toprol Xl] 25 mg PO DAILY 05/29/19 Potassium Chloride [Klor-Con M10] 10 meq PO BID 05/29/19 Venlafaxine HCl [Venlafaxine HCl 37.5 mg PO DAILY 05/29/19 ER] hydrOXYzine pamoate capsule 25 mg PO DAILY PRN PRN 05/29/19 [Vistaril pamoate capsule] Surgical History: Surgical History (Last Reviewed 12/13/18 @ 21:07 by Jayden Mike MD) History of left heart catheterization (Chronic) Z98.890 11/09/2016 @ [facility], [place], per Dr. Cory Harley: normal coronaries 04/07/2018 @ [facility] per Dr. Harris: normal coronaries History of cardiac radiofrequency ablation (Resolved) Z98.890 10/09/[address] [facility] [address] Andrew laser lithotripsy Onset Date: ~06/2018 H/O arthroscopic knee surgery Z98.890 History of back surgery Z98.890 History of right knee surgery Z98.890 Surgical History: - - Left heart catheterization 1 year ago and ablation Psychiatric History: Anxiety Smoking Status: Never smoker - *Family History Maternal Family History: Family History (Last Reviewed 12/13/18 @ 21:07 by Jayden Mike MD) Brother Hypertension Mother Heart disease Colon cancer Sister Diabetes Sister Diabetes Sister Diabetes History Items: - - Maternal family history of DM, Colon CA, Valvular Heart Disease. Paternal Family History: Family History (Last Reviewed 12/13/18 @ 21:07 by Jayden Mike MD) Brother Hypertension Mother Heart disease Colon cancer Sister Diabetes Sister Diabetes Sister Diabetes History Items: - - Paternal family history of skin CA. Review of Systems Constitutional: Reports: Malaise, Weakness, Fatigue. Denies: Anorexia, Chills, Fever, Night Sweats, Weight Change Eyes: Denies: Blurred vision, Cataracts, Conjunctivae Inflammation, Pain, Redness HEENT: Denies: Difficulty Hearing, Difficulty Swallowing, Head Aches, Hearing Changes, Sinus Congestion, Sinus Drainage Cardiovascular: Reports: Light Headedness. Denies: Chest Pain, Claudication, Orthopnea, Palpitations, Paroxysmal Noc. Dyspnea Respiratory: Denies: Cough, Hemoptysis, Shortness of Breath, Shortness of breath at rest, Shortness of breath upon exertion, Sputum production Gastrointestinal: Reports: Hematemesis, Nausea, Vomiting. Denies: Abdominal Pain, Constipation, Hematochezia, Melena Genitourinary: Denies: Dysuria, Frequency, Incontinence Musculoskeletal: Denies: Joint Pain, Joint stiffness, Joint Tenderness Skin: Denies: Rash, Wounds Neurological: Denies: Numbness, Tingling, Focal weakness Psychiatric: Denies: Anxiety, Depression, Homicidal Ideations, Suicidal Ideations Hematologic/ Lymphatic: Denies: Easy Bruising, Easy Bleeding VTE Information - Inpt Only VTE Present on Admission: No VTE Pharm Prophylaxis ordered?: Yes - Physical Exam General: Alert, Oriented x3, Cooperative, No apparent distress HEENT: Atraumatic, PERRLA, EOMI, Normocephalic Oral: Moist Mucosa Neck: Supple Lungs: Clear to auscultation, Normal air movement Cardiovascular: Regular rate, Regular Rhythm, Normal S1, Normal S2, No murmurs Abdomen: Bowel Sounds Present, Soft, Non Tender, Non-Distended, No Hepato- splenomegaly Extremities: No edema Skin: No rashes, No breakdown Musculoskeletal: No Tenderness to Palpation of Joints or Extremities Lymphatic: No Cervical, Supraclavicular, or Inguinal Adenopathy Neurological: Cranial nerves II-XII grossly intact, Neuro grossly intact Psych/Mental Status: Normal Affect, Appropriate Vital Signs Temp Pulse Resp BP Pulse Ox 98.0 F 78 19 H 156/105 H 100 05/29/19 08:45 05/29/19 11:24 05/29/19 11:24 05/29/19 11:06 05/29/19 11:06 Oxygen Delivery Method Room Air Weight: 104.6 kg Body Mass Index (BMI) 32.1 Finger Stick Blood Glucose 95 Laboratory Tests Past 24 Hrs 05/29/19 05/29/19 09:05 09:05 WBC 6.8 RBC 4.95 Hgb 15.0 Hct 43.9 MCV 88.7 MCH 30.3 MCHC 34.2 RDW Std Deviation 41.4 RDW Coeff of Michele 12.7 Plt Count 231 MPV 8.7 Immature Gran % (Auto) 0.400 Neut % (Auto) 63.8 Lymph % (Auto) 22.5 [place] % (Auto) 10.0 Eos % (Auto) 2.4 Baso % (Auto) 0.9 Absolute Neuts (auto) 4.3 Absolute Lymphs (auto) 1.53 Nucleated RBC % 0 Sodium 141 Potassium 3.9 Chloride 107 Carbon Dioxide 26.0 Anion Gap 8 BUN 12 Creatinine 0.97 Estim Creat Clear Calc 98.11 Est GFR (MDRD) Af Amer 106 Est GFR (MDRD) Non-Af 88 BUN/Creatinine Ratio 12.4 Glucose 79 Calcium 8.9 Total Bilirubin 0.50 AST 52 H ALT 49 Alkaline Phosphatase 131 H Troponin I < 0.015 Total Protein 7.1 Albumin 3.6 Globulin 3.5 Albumin/Globulin Ratio 1.0 Lipase 77 Assessment/Plan All Active Problems (Last Reviewed 12/13/18 @ 21:07 by Jayden Mike MD) Vertigo (Acute) Stroke-like symptoms (Acute) History of cardiac radiofrequency ablation (Resolved) Double vision (Resolved) 49 year old M with multiple comorbidities including paroxysmal atrial fibrillation, anxiety disorder who comes in feeling unwell for the past 4 days. He complained of feeling lightheaded, feeling fatigued, dizzy. 1. Acute upper GI bleed in a patient on Eliquis, stable vitals, hemoglobin is 15 Plan: Admit to PCU, hold Eliquis, gentle IV fluids, IV PPI, general surgery consulted- Dr. Ga 2. Paroxysmal atrial fibrillation, history of ablation, in normal sinus rhythm, continue on sotalol, Eliquis on hold 3. Hypertension, fairly uncontrolled secondary to anxiety, continue on home meds 4. Anxiety disorder, on IV Ativan prn, continue on venlafaxine 5. CAD status post stents/nephrolithiasis/LORETTA, stable 6. DVT PPx- SCDs Code Visit Inpatient E&M: 34390 Init Hosp L2
[2019-05-29 14:54] LABS: Hematocrit 40.7 % (40-54)
[2019-05-29] MEDS: 0.9% Normal Saline 1,000 ML 100 ML IV (15:00)
[2019-05-29] MEDS: Morphine 2 MG/ML Syringe IV ×2 (15:00→20:04)
[2019-05-29] MEDS: LORazepam 2 MG/ML Syringe 1 MG IV (15:57)
--- NOTE | 2019-05-29 18:16 | PCM.HP.STD ---
History of Present Illness Date of Admission: 05/29/19 Chief Complaint: hemetemesis The patient is a 49 year old M who presents with dizziness and hemetemesis. The patient was in [place] over the weekend and vomited blood/coffee grounds. He has since had additional episodes of coffee ground emesis since that time. He [id number] to his PCP today with the above complaints and was referred to [facility] ER. Dr. Mckeon noted: Lasha's history is complicated by a vast number of ER visits and physician visits for a large varied number of complaints. He has recently seen cardiology and vascular surgery. He has been seeing psychiatry. He has seen general surgery?but did not keep his appt yesterday.? He has significant psych issues which cloud his physical symptoms.? Discussed that he is getting himself worked up. Only sleeping two or three hours a night. He is accompanied by his significant other who agrees he is very anxious. He is having some nausea and stomach pain. He states he threw up a cup of blood yesterday. He is having some abd pain.? The patient has a history of atrial fibrillation and SVT status post cardioversion with an ascending aortic arch aneurysm which is currently being observed. ?The patient has had episodes of chest pain for which she recently had a cardiac catheterization which demonstrated mild coronary artery disease. ?He had an echocardiogram in December 15, 2018 ?which demonstrated normal left ventricular size, no systolic dysfunction, a 65% ejection fraction, and was described as a mildly dilated aortic root. He is on multiple medications including eliquis ? The patient feels he had 2 TIAs 3 months previously. ?He has no neurologic defects. ?He has a history of anxiety disorder. ? He's had previous lithotripsy for kidney stones. ?He's had lumbar fusion in the L4 5. Jeferson is a patient I am following for a right inguinal hernia. ?I performed a open right inguinal hernia repair with mesh on April 22, 2019. ?The patient was known to have a mixed direct and indirect or pantaloon type hernia. ?This was a larger defect requiring imbricating of the direct defect and placement of a large mesh plug in the indirect defect. ? The patient was discharged the day of surgery. ? The patient presented to [facility] emergency department on April 26, 2019 with the following complaints: ??He presented noting postop nausea and continued pain in the area. ?He also felt he had some fever and chills. ?He states he only had 1 bowel movement postoperatively despite taking stool softeners. ?His vitals are unremarkable with a 99% saturation on room air. ?His right inguinal incision was noted to be healing well without signs of cellulitis or seroma. ?His laboratory studies demonstrate a normal white cell blood count, normal hemoglobin and hematocrit and normal platelets. ?, ?Placement of a panel was remarkable for mildly elevated glucose and otherwise normal.his lipase ?is lipase level was normal. ?Abdominal x-ray demonstrated bilateral small renal calculi without other abnormalities noted. ? He has no signs of bowel obstruction and no significant fecal loading based on my review of his x-ray. ? The patient returns today with the following complaints-chest pain and chest discomfort, dizziness, shortness of breath, dyspnea on exertion, abdominal pain, right inguinal pain, testicular pain, back pain and leg pain. ? ?his?appetite has been good. ?he?denies fever, chills or abdominal pain. ?he?notes no bulges at the operative site. ? An EKG was obtained given his concern of chest pain. ?This demonstrated normal sinus rhythm without ST segment changes. ?There were voltage criteria for mild left ventricular hypertrophy. ? I saw him 2 days previously with the above complaints. ?Last night he felt he had a rapid heartbeat and presented to [place] ER. ?He was told he was given medicine lowers heart rates from the 190s to the low 100s. ? He then states he had bloody fluid draining from his incision he estimated half a cup. ?I saw the patient in office yesterday. ?There was scant drainage from the central aspect of the incision. ?He was started on clindamycin. ? Due to continued pain and his concerns, he went to the emergency department. ?He underwent CT scan of the abdomen and pelvis. ?This demonstrated changes in the pelvis consistent with postoperative hemorrhage hematoma and the site procedure 7 x 6.5 cm. ?My impression was that the site was actually smaller and along the inguinal canal but there were no signs of drainable fluid collections or deeper abnormalities. Past Medical History Past Medical History (Chronic Problems): Chronic Problems (Last Reviewed 12/13/18 @ 21:07 by Jayden Mike MD) Essential hypertension (Chronic) Atrial fibrillation and flutter (Chronic) SVT (supraventricular tachycardia) (Chronic) LORETTA (obstructive sleep apnea) (Chronic) Atherosclerotic heart disease of [place] coronary artery without angina pectoris (Chronic) History of left heart catheterization (Chronic) 11/09/2016 @ [facility], per Dr. Cory Harley: normal coronaries 04/07/2018 @ [facility] per Dr. Harris: normal coronaries Nephrolithiasis (Chronic) Anxiety (Chronic) PAF (paroxysmal atrial fibrillation) (Chronic) GERD (gastroesophageal reflux disease) (Chronic) Obesity (BMI 30-39.9) (Chronic) BPPV (benign paroxysmal positional vertigo) (Chronic) HLD (hyperlipidemia) (Chronic) Thoracic aortic aneurysm without rupture (Chronic) Medical History: Medical History (Last Reviewed 12/13/18 @ 21:07 by Jayden Mike MD) SVT (supraventricular tachycardia) (Chronic) I47.1 LORETTA (obstructive sleep apnea) (Chronic) G47.33 Atherosclerotic heart disease of [place] coronary artery without angina pectoris (Chronic) I25.10 Nephrolithiasis (Chronic) N20.0 Anxiety (Chronic) F41.9 PAF (paroxysmal atrial fibrillation) (Chronic) I48.0 GERD (gastroesophageal reflux disease) (Chronic) K21.9 Obesity (BMI 30-39.9) (Chronic) E66.9 BPPV (benign paroxysmal positional vertigo) (Chronic) H81.10 HLD (hyperlipidemia) (Chronic) E78.5 Thoracic aortic aneurysm without rupture (Chronic) I71.2 Allergies clonidine Allergy (Intermediate, Verified 05/29/19 08:45) rash clindamycin Allergy (Verified 05/29/19 08:45) Rash doxycycline Allergy (Verified 05/29/19 08:45) Rash levofloxacin [From Levaquin] Allergy (Verified 05/29/19 08:45) Rash Penicillins Allergy (Verified 05/29/19 08:45) Hives bupropion Adverse Reaction (Intermediate, Verified 05/29/19 08:45) vomiting celecoxib [From Celebrex] Adverse Reaction (Intermediate, Verified 05/29/19 08:45) vomiting eletriptan Adverse Reaction (Intermediate, Verified 05/29/19 08:45) Vomiting topiramate [From Topamax] Adverse Reaction (Intermediate, Verified 05/29/19 08:45) vomiting hydrocodone bitartrate [From Vicodin] Adverse Reaction (Verified 05/29/19 08:45) Nausea ketorolac [From Toradol] Adverse Reaction (Verified 05/29/19 14:35) PT ON BLOOD THINNERS, PER DR KAYLEIGH LOREDO TORNASIM Home Medications: Ambulatory Orders Medication Instructions Recorded Pantoprazole Sodium [Protonix] 40 mg PO DAILY 04/22/16 Albuterol Inhaler [Ventolin Hfa] 1 - 2 puff INHALATION Q4H PRN PRN 07/15/17 #1 inhaler Apixaban [Eliquis] 5 mg PO BID 09/21/17 Fluticasone 0.05% [Flonase Nasal 1 spray NASAL DAILY #1 nasal.sry 08/31/18 [place]] Promethazine HCl 25 mg PO DAILY PRN 08/31/18 Amlodipine Besylate [Norvasc] 5 mg PO BID 11/06/18 Nitroglycerin (INPATIENT USE) 0.4 mg SUBLINGUAL Q5M PRN 11/06/18 [Nitrostat] Atorvastatin Calcium [Lipitor] 20 mg PO DAILY 11/21/18 Ondansetron [Zofran Odt] 4 mg PO Q8H PRN PRN #10 tablet 11/24/18 Sotalol HCl [Sotalol] 160 mg PO BID 05/11/19 Lisinopril 5 mg PO DAILY 05/29/19 Meclizine HCl [Antivert] 12.5 mg PO DAILY PRN PRN 05/29/19 Metoprolol Succinate [Toprol Xl] 25 mg PO DAILY 05/29/19 Potassium Chloride [Klor-Con M10] 10 meq PO BID 05/29/19 Venlafaxine HCl [Venlafaxine HCl 37.5 mg PO DAILY 05/29/19 ER] hydrOXYzine pamoate capsule 25 mg PO DAILY PRN PRN 05/29/19 [Vistaril pamoate capsule] Surgical History: Surgical History (Last Reviewed 12/13/18 @ 21:07 by Jayden Mike MD) History of left heart catheterization (Chronic) Z98.890 11/09/2016 @ [facility], per Dr. Cory Harley: normal coronaries 04/07/2018 @ [facility] per Dr. Harris: normal coronaries History of cardiac radiofrequency ablation (Resolved) Z98.890 10/09/[address] [facility] [address] Andrew laser lithotripsy Onset Date: ~06/2018 H/O arthroscopic knee surgery Z98.890 History of back surgery Z98.890 History of right knee surgery Z98.890 Surgical History: - - Left heart catheterization 1 year ago and ablation Psychiatric History: Anxiety Smoking Status: Never smoker - *Family History Maternal Family History: Family History (Last Reviewed 12/13/18 @ 21:07 by Jayden Mike MD) Brother Hypertension Mother Heart disease Colon cancer Sister Diabetes Sister Diabetes Sister Diabetes History Items: - - Maternal family history of DM, Colon CA, Valvular Heart Disease. Paternal Family History: Family History (Last Reviewed 12/13/18 @ 21:07 by Jayden Mike MD) Brother Hypertension Mother Heart disease Colon cancer Sister Diabetes Sister Diabetes Sister Diabetes History Items: - - Paternal family history of skin CA. Review of Systems Constitutional: Reports: Anorexia, Fatigue HEENT: Denies: Head Aches, Sinus Congestion, Sinus Drainage Cardiovascular: Denies: Chest Pain, Palpitations Respiratory: Denies: Cough, Shortness of breath at rest, Sputum production Gastrointestinal: Reports: Hematemesis, Vomiting. Denies: Abdominal Pain, Nausea Neurological: Reports: Confusion Psychiatric: Reports: Anxiety Hematologic/ Lymphatic: Reports: Easy Bruising VTE Information - Inpt Only VTE Present on Admission: No VTE Mechan Device Prophylaxis: SCD's VTE Pharm Prophylaxis ordered?: No - Physical Exam General: Alert, Oriented x3, Cooperative HEENT: Atraumatic, PERRLA, EOMI, Normocephalic Lungs: Clear to auscultation, Normal air movement Cardiovascular: Regular rate, No murmurs Abdomen: Bowel Sounds Present, Soft, Non Tender, - - resolving hematoma in the right inguinal area with a small central sinus. Vital Signs Temp Pulse Resp BP Pulse Ox 98.4 F 74 20 H 145/96 H 97 05/29/19 14:43 05/29/19 14:57 05/29/19 14:43 05/29/19 14:43 05/29/19 16:15 Oxygen Delivery Method Room Air Weight: 104.689 kg Body Mass Index (BMI) 32.1 Finger Stick Blood Glucose 95 Intake and Output for Last 24 Hours 05/27/19 05/28/19 05/29/19 23:59 23:59 23:59 Intake Total 300 / 300 Output Total 100 / 100 Balance 200 / 200 Laboratory Tests Past 24 Hrs 05/29/19 05/29/19 05/29/19 09:05 09:05 14:50 WBC 6.8 RBC 4.95 Hgb 15.0 14.0 Hct 43.9 40.7 MCV 88.7 MCH 30.3 MCHC 34.2 RDW Std Deviation 41.4 RDW Coeff of Michele 12.7 Plt Count 231 MPV 8.7 Immature Gran % (Auto) 0.400 Neut % (Auto) 63.8 Lymph % (Auto) 22.5 [place] % (Auto) 10.0 Eos % (Auto) 2.4 Baso % (Auto) 0.9 Absolute Neuts (auto) 4.3 Absolute Lymphs (auto) 1.53 Nucleated RBC % 0 Sodium 141 Potassium 3.9 Chloride 107 Carbon Dioxide 26.0 Anion Gap 8 BUN 12 Creatinine 0.97 Estim Creat Clear Calc 98.11 Est GFR (MDRD) Af Amer 106 Est GFR (MDRD) Non-Af 88 BUN/Creatinine Ratio 12.4 Glucose 79 Calcium 8.9 Total Bilirubin 0.50 AST 52 H ALT 49 Alkaline Phosphatase 131 H Troponin I < 0.015 Total Protein 7.1 Albumin 3.6 Globulin 3.5 Albumin/Globulin Ratio 1.0 Lipase 77 Assessment/Plan All Active Problems (Last Reviewed 12/13/18 @ 21:07 by Jayden Mike MD) Vertigo (Acute) Stroke-like symptoms (Acute) History of cardiac radiofrequency ablation (Resolved) Double vision (Resolved) #1 - hematemesis- Patient's hemoglobin was initially 15 repeat hemoglobin demonstrated 14. He has a nasogastric tube in place which demonstrated some old blood. The patient took his Eliquis last night. This should be held. I'm okay with ice chips overnight and we'll keep the NG tube in place until tomorrow morning. The patient scheduled for EGD for evaluation of likely peptic ulcer disease findings. He was started on IV continuous Protonix.. #2 - Resolving hematoma-right inguinal hernia site the patient is status post awaiting repair on April 26 developed a large postoperative hematoma and the superficial fatty tissues is tracked extensively down his thigh. He has a small sinuses draining slightly. He does not have signs of chronic infection of the mesh. A consult was placed for wound care nurse evaluation. At this point I still feel this is resolving hematoma without signs of deeper infection. Do not want to have this site probed. #2 - multiple medical comorbidities, psychiatric issues of anxiety-comorbidities challenging to both numbers 1 and 2
[2019-05-29] MEDS: 0.9% NaCl Peripheral Flush Adult/Peds IV (20:05)
[2019-05-29 21:12] LABS: Hematocrit 40.7 % (40-54); Hemoglobin 13.9 g/dL (13.0-16.5)
[2019-05-29] MEDS: amLODIPine 5 MG Tablet PO (22:22)
[2019-05-29] MEDS: Sotalol Hydrochloride 80 MG Tablet 160 MG PO (22:22)
[2019-05-30] VITALS (10 sets, daily range): BP systolic 109–138; BP diastolic 68–92; PULSE 66–81; RESP 14–16; TEMP 36.4–36.6; O2SAT 93–100; BMI 32.1
[2019-05-30] MEDS: 0.9% Normal Saline 1,000 ML 100 ML IV (00:53)
[2019-05-30 05:08] LABS: Absolute Lymphocyte Count 1.52 X10^3/uL (0.83-4.51); Absolute Neutrophil Count 3.8 X10^3/uL (2.0-7.7); Basophil# 0.05 X10^3/uL; Basophil% 0.8 % (0-1); Eosinophil# 0.22 X10^3/uL; Eosinophils% 3.6 % (0-5); Hematocrit 42.7 % (40-54); Hemoglobin 14.2 g/dL (13.0-16.5); Lymphocyte # 1.52 X10^3/ul (4.0); Lymphocyte % 24.6 % (19-41); Mean Corp Hgb Conc 33.3 g/dL (32-36); Mean Corpuscular Hgb 30.1 pg (27.0-32.0); Mean Corpuscular Volume 90.5 fL (80-94); Mean Platelet Vol. 8.8 fl (6.2-12.0); Monocyte# 0.61 X10^3/uL; Monocyte% 9.9 % (0-10); NRBC Flagged by Analyzer 0 % (0-5); Neutrophil # 3.77 X10^3/uL (2.7-7.7); Neutrophil % 60.8 % (47-70); Platelet Count 199 K/mm3 (150-450); RBC Distribution Width CV 12.7 % (11.6-14.6); RBC Distribution Width SD 41.9 fl (35.1-43.9); Red Blood Count 4.72 M/mm3 (4.6-6.2); White Blood Count 6.2 K/mm3 (4.4-11.0)
[2019-05-30 05:22] LABS: Anion Gap 8 (5-15); BUN 9 mg/dL (7-18); BUN/Creat Ratio 13.2 RATIO (10-20); Calcium,Total 8.2 mg/dL (8.5-10.1); Chloride 110 mmol/L (98-107); Creatinine, Serum 0.68 mg/dL (0.70-1.30); EST Glomerular Filtration Rate 131 mL/min (>60); Est Glom Filt Rate - Afr Amer 159 mL/min (>60); Estimated Creatinine Clearance 139.96 ml/min; Glucose 86 mg/dL (74-106); Sodium Level 143 mmol/L (136-145)
--- NOTE | 2019-05-30 05:55 | EKG12_ITS ---
Test Reason : AM EKG Blood Pressure : / mmHG Vent. Rate : 063 BPM Atrial Rate : 063 BPM P-R Int : 160 ms QRS Dur : 088 ms QT Int : 424 ms P-R-T Axes : 011 025 007 degrees QTc Int : 433 ms Normal sinus rhythm Normal ECG Confirmed by INDER CONNOR, ASAEL ([id number]), desk editor LINDA MORALES ([id number]) on 06/02/2019 1:05:12 PM Referred By: Veda Ramon Confirmed By:ASAEL LOVING MD
--- NOTE | 2019-05-30 06:30 | NURSING ---
Pt off floor at this time for endo procedure. Report was given to endo rn.
--- NOTE | 2019-05-30 07:00 | IMM_PTH ---
PATIENT: ATTILA DEL CID LOC: U U#:[id number] AGE/SX: 49/M ROOM: [facility] RE05/29/[address]: Dr. Veda Ramon MD : 1970 BED: 1 DIS: 05/30/2019 SPEC #: [id number] RECD: 06/01/19 11:58 STATUS: JB REQ #: [id number] ARMEN: 05/30/19 07:[address]: Conrad Ga DEPT: IMMUNOHISTOCHEMISTRY RECD BY: Pearl Hull ENTERED: 06/01/19 11:59 SP TYPE: IMMUNO OTHR DR: MD Dr. Ar Gaona MD Tissues: A - Stomach, NOS Procedures: H Pylori (initial) PHYSICIAN & INSTITUTION [place] [id number] SPECIMEN INFORMATION: Tissue Source: A - Antral biopsy Clinical Info: GI bleed Specimen Number: [id number] CPT code: 92761 METHODOLOGY: Deparaffinized sections of prefer/formalin-fixed tissue or PAP/DQ stained slides are incubated with monoclonal/polyclonal antibodies/oligonucleotide probes. Localization is made via biotin free immunoperoxidase method. Appropriate controls are performed and reacted as expected. Results on target cell population are indicated in the following table: RESULTS: ANTIBODY / CLONE RESULT Block A H Pylori (polyclonal) negative These tests were developed and their performance characteristics determined by [facility]. They may not have been cleared or approved by the U.S. Food and Drug Administration. The FDA has determined that such clearance or approval is not necessary. INTERPRETATION: A. Antral biopsy: Negative for Helicobacter pylori organisms. AM:abbe 06/02/19
--- NOTE | 2019-05-30 07:00 | EGD_PTH ---
PATIENT: ATTILA DEL CID LOC: [facility] U#:[id number] AGE/SX: 49/M ROOM: [facility] RE05/29/[address]: Dr. Veda Ramon MD : 1970 BED: 1 DIS: 05/30/2019 SPEC #: [id number] RECD: 05/30/19 11:05 STATUS: JB REYoel #: [id number] ARMEN: 05/30/19 07:[address]: Conrad Ga DEPT: SURGICAL PATHOLOGY RECD BY: Jovana Yao ENTERED: 06/01/19 10:22 SP TYPE: EGD BIOPSY OTHR DR: MD Dr. Ar Gaona MD Tissues: A - Gastric mucous membrane B - Esophagus, NOS Procedures: PAS Fungus (control) Special Stain Group I Surgery Specimen Level IV AFB Stain (control) HEADER OPERATION: EGD ([facility] [place]) PRE-OP DIAGNOSIS: GI bleed TISSUE SUBMITTED: A. Antral biopsy for H. pylori and path, B. Mid esophagus biopsy MICROSCOPIC DIAGNOSIS A. Gastric antrum, biopsy: Mild chronic gastritis. See comment. B. Mid esophagus, biopsy: Marked acute esophagitis. Negative for acid fast bacilli. Negative for fungal organisms. See comment. AM:abbe 06/02/19 COMMENT A. The results of immunohistochemistry for Helicobacter pylori will be reported separately ([id number]). B. PASF and AFB stains with matched controls supports the above diagnosis. MICROSCOPIC DESCRIPTION Slides are reviewed. GROSS DESCRIPTION A - Received in fixative is one container labeled with the patient's name and designated antral biopsy. The specimen consists of three irregular fragments of light casiano soft tissue that in aggregate measure 0.3 x 0.2 x 0.1 cm. The specimen is totally submitted in one cassette. B - Received in fixative is one container labeled with the patient's name and designated mid esophagus biopsy. The specimen consists of two irregular fragments of light casiano soft tissue that in aggregate measure 0.5 x 0.5 x 0.1 cm. The specimen is totally submitted in one cassette. / AM:abbe 06/01/19 TC:2 CPT: 50797 x2, 75193 x2
--- NOTE | 2019-05-30 07:26 | OP.ENDO_ITS ---
05/30/2019 Ar Mckeon Re : Upper GI endoscopy procedure for Jeferson Perdomo Dear Mike This procedure was performed on Thursday, May 30, 2019. My impressions and recommendations are as follows: Impressions : - Normal examined jejunum. - Normal examined duodenum. - Normal stomach. Biopsied. - Normal gastroesophageal junction. - Normal lower third of esophagus. - Normal middle third of esophagus. Biopsied. - Normal hypopharynx. Recommendations : - [facility]. - Resume regular diet. - Continue present medications. My findings are described in the full procedure note, which is enclosed. If I can be of further assistance, please feel free to contact me at Doctor phone number(s): , Work: . Sincerely, Conrad Ga MD 05/30/2019 7:25:36 AM This report has been signed electronically.
[2019-05-30] MEDS: Acetaminophen 325 MG Tablet 650 MG PO (08:43)
[2019-05-30] MEDS: Fluticasone 0.05% 1 SPRAY NASAL.SRY NASAL (09:06)
[2019-05-30] MEDS: Sotalol Hydrochloride 80 MG Tablet 160 MG PO (09:08)
[2019-05-30] MEDS: Venlafaxine XR 75 MG Capsule PO (09:08)
[2019-05-30] MEDS: amLODIPine 5 MG Tablet PO (09:08)
--- NOTE | 2019-05-30 09:51 | DCINST_ITS ---
- Discharge Diagnoses Reason(s) for Visit for Discharge Instructions: Coffee-ground emesis You will use the following diet at home:: Cardiac Your food should be the consistency of: Regular Your liquids should be the consistency of: Regular/Thin Discharge Activity: Return to Normal Activity Additional Instructions: Continue to take all your medications as prescribed. Monitor for further bleeding. Let your primary care doctor know if you continue to have more coffe-ground emesis as you will need referral to ENT. Allergies/Adverse Reactions: Allergies clonidine Allergy (Intermediate, Verified 05/29/19 08:45) rash clindamycin Allergy (Verified 05/29/19 08:45) Rash doxycycline Allergy (Verified 05/29/19 08:45) Rash levofloxacin [From Levaquin] Allergy (Verified 05/29/19 08:45) Rash Penicillins Allergy (Verified 05/29/19 08:45) Hives bupropion Adverse Reaction (Intermediate, Verified 05/29/19 08:45) vomiting celecoxib [From Celebrex] Adverse Reaction (Intermediate, Verified 05/29/19 08:45) vomiting eletriptan Adverse Reaction (Intermediate, Verified 05/29/19 08:45) Vomiting topiramate [From Topamax] Adverse Reaction (Intermediate, Verified 05/29/19 08:45) vomiting hydrocodone bitartrate [From Vicodin] Adverse Reaction (Verified 05/29/19 08:45) Nausea ketorolac [From Toradol] Adverse Reaction (Verified 05/29/19 14:35) PT ON BLOOD THINNERS, PER DR VICTOR HAVE TORADOL Medications to take at Discharge Pantoprazole Sodium [Protonix] 40 mg PO DAILY 04/22/16 Albuterol Inhaler [Ventolin Hfa] 1 - 2 puff INHALATION Q4H PRN PRN #1 inhaler 07/15/17 Apixaban [Eliquis] 5 mg PO BID 09/21/17 Fluticasone 0.05% [Flonase Nasal [place]] 1 spray NASAL DAILY #1 nasal.sry 08/31/18 Promethazine HCl 25 mg PO DAILY PRN 08/31/18 Amlodipine Besylate [Norvasc] 5 mg PO BID 11/06/18 Nitroglycerin (INPATIENT USE) [Nitrostat] 0.4 mg SUBLINGUAL Q5M PRN 11/06/18 Atorvastatin Calcium [Lipitor] 20 mg PO DAILY 11/21/18 Ondansetron [Zofran Odt] 4 mg PO Q8H PRN PRN #10 tablet 11/24/18 Sotalol HCl [Sotalol] 160 mg PO BID 05/11/19 Lisinopril 5 mg PO DAILY 05/29/19 Meclizine HCl [Antivert] 12.5 mg PO DAILY PRN PRN 05/29/19 Metoprolol Succinate [Toprol Xl] 25 mg PO DAILY 05/29/19 Potassium Chloride [Klor-Con M10] 10 meq PO BID 05/29/19 Venlafaxine HCl [Venlafaxine HCl ER] 37.5 mg PO DAILY 05/29/19 hydrOXYzine pamoate capsule [Vistaril pamoate capsule] 25 mg PO DAILY PRN PRN 05/29/19 Primary Care Physician: Ar Mckeon MD [Primary Care Provider] - Please follow up with your Primary Care Physician in: within 1-2 weeks Test Results: Test results from this visit will be discussed in further detail at your follow- up appointment, if applicable. Proposed Discharge Date: 05/30/19
--- NOTE | 2019-05-30 09:59 | PCM.DC.SUM ---
Discharge Date and Diagnosis Date of Admission: 05/29/19 Date of Discharge: 05/30/19 - Primary Discharge Diagnosis Possible upper GI bleed - Secondary Discharge Diagnosis Chronic Problems (Last Reviewed 12/13/18 @ 21:07 by Jayden Mike MD) Essential hypertension (Chronic) Atrial fibrillation and flutter (Chronic) SVT (supraventricular tachycardia) (Chronic) LORETTA (obstructive sleep apnea) (Chronic) Atherosclerotic heart disease of [place] coronary artery without angina pectoris (Chronic) History of left heart catheterization (Chronic) 11/09/2016 @ [facility], per Dr. Cory Harley: normal coronaries 04/07/2018 @ [facility] per Dr. Harris: normal coronaries Nephrolithiasis (Chronic) Anxiety (Chronic) PAF (paroxysmal atrial fibrillation) (Chronic) GERD (gastroesophageal reflux disease) (Chronic) Obesity (BMI 30-39.9) (Chronic) BPPV (benign paroxysmal positional vertigo) (Chronic) HLD (hyperlipidemia) (Chronic) Thoracic aortic aneurysm without rupture (Chronic) Hospital Course and Treatment Imaging Results: Clinical Impression(s) from Imaging Studies Chest X-Ray 05/29/19 09:02 IMPRESSION: The tip of the nasogastric tube is in the proximal/midportion of the esophagus. Stable widening of the right paratracheal region. Electronically Signed: Pablito Young, at 10:55 EDT , Service support , KUB X-Ray 05/29/19 11:53 IMPRESSION: The tip of the nasogastric tube is in the body of the stomach. Electronically Signed: Pablito Young, at 12:36 EDT , Service support , Consultations 05/29/19 14:54 Consult: Onc/Wound/high wire artist Routine Comment: Do NOT probe wound without Dr. Burrell permission Reason for Consult:: Small Unapproximated area on transverse abdominal surgical site Comments:: post op 1 month General surgery - Dr. Ga Operations: None Procedures: EGD Summary of Care Provided: 49 year old M with multiple comorbidities including paroxysmal atrial fibrillation, anxiety disorder who comes in feeling unwell for the past 4 days. He complained of feeling lightheaded, feeling fatigued, dizzy. 2 days prior to his admission, patient had vomited coffee-ground materials. He complains of abdominal discomfort. An NG tube was passed in the emergency department and showed coffee-ground material. His admitting hemoglobin was 15. His vitals were stable. He was admitted to the telemetry floor. General surgery, Dr. Ga was consulted. Patient underwent EGD the next day and the findings were unremarkable. It was thought that he had possibly an nosebleed. Patient was resumed on his cardiac diet and monitored for any bleeding. There was no further bleeding and patient was discharged in a stable state. Subjective: On the day of discharge, he denied any new complaints. He felt improved. Denied dizziness or palpitation. No melena or hematochezia or nosebleeding. - Physical Exam General: Alert, Oriented x3, Cooperative, No apparent distress HEENT: Atraumatic, PERRLA, EOMI, Normocephalic Oral: Moist Mucosa Neck: Supple, No JVD, Negative Carotid Bruits Lungs: Clear to auscultation, Normal air movement Cardiovascular: Regular rate, Regular Rhythm, Normal S1, Normal S2, No murmurs Abdomen: Bowel Sounds Present, Soft, Non Tender, Non-Distended, No Hepato-splenomegaly Extremities: No edema Skin: No rashes, No breakdown Musculoskeletal: No Tenderness to Palpation of Joints or Extremities Lymphatic: No Cervical, Supraclavicular, or Inguinal Adenopathy Neurological: Cranial nerves II-XII grossly intact, Neuro grossly intact Psych/Mental Status: Normal Affect, Appropriate Vital Signs Temp Pulse Resp BP Pulse Ox 97.9 F 81 16 119/83 H 98 05/30/19 08:23 05/30/19 09:16 05/30/19 08:23 05/30/19 08:23 05/30/19 08:23 Oxygen Delivery Method Room Air Weight: 104.689 kg Body Mass Index (BMI) 32.1 Finger Stick Blood Glucose 95 Intake and Output for Last 24 Hours 05/28/19 05/29/19 05/30/19 23:59 23:59 23:59 Intake Total 967 / 967 852 / 852 Output Total 1125 / 1125 1225 / 1225 Balance -158 / -158 -373 / -373 Laboratory Tests Past 24 Hrs 05/29/19 05/29/19 05/30/19 14:50 20:50 04:50 WBC 6.2 RBC 4.72 Hgb 14.0 13.9 14.2 Hct 40.7 40.7 42.7 MCV 90.5 MCH 30.1 MCHC 33.3 RDW Std Deviation 41.9 RDW Coeff of Michele 12.7 Plt Count 199 MPV 8.8 Immature Gran % (Auto) 0.300 Neut % (Auto) 60.8 Lymph % (Auto) 24.6 Parker % (Auto) 9.9 Eos % (Auto) 3.6 Baso % (Auto) 0.8 Absolute Neuts (auto) 3.8 Absolute Lymphs (auto) 1.52 Nucleated RBC % 0 Sodium Potassium Chloride Carbon Dioxide Anion Gap BUN Creatinine Estim Creat Clear Calc Est GFR (MDRD) Af Amer Est GFR (MDRD) Non-Af BUN/Creatinine Ratio Glucose Calcium 05/30/19 04:50 WBC RBC Hgb Hct MCV MCH MCHC RDW Std Deviation RDW Coeff of Michele Plt Count MPV Immature Gran % (Auto) Neut % (Auto) Lymph % (Auto) Parker % (Auto) Eos % (Auto) Baso % (Auto) Absolute Neuts (auto) Absolute Lymphs (auto) Nucleated RBC % Sodium 143 Potassium 4.0 Chloride 110 H Carbon Dioxide 25.0 Anion Gap 8 BUN 9 Creatinine 0.68 L Estim Creat Clear Calc 139.96 Est GFR (MDRD) Af Amer 159 Est GFR (MDRD) Non-Af 131 BUN/Creatinine Ratio 13.2 Glucose 86 Calcium 8.2 L Discharge Diet: Low fat/ Low Cholesterol, 2000 mg Sodium Diet Discharge Activity: Return to Normal Activity Home Medications: Medications to take at Discharge Pantoprazole Sodium [Protonix] 40 mg PO DAILY 04/22/16 Albuterol Inhaler [Ventolin Hfa] 1 - 2 puff INHALATION Q4H PRN PRN #1 inhaler 07/15/17 Apixaban [Eliquis] 5 mg PO BID 09/21/17 Fluticasone 0.05% [Flonase Nasal [place]] 1 spray NASAL DAILY #1 nasal.sry 08/31/18 Promethazine HCl 25 mg PO DAILY PRN 11/11/18 Amlodipine Besylate [Norvasc] 5 mg PO BID 11/06/18 Nitroglycerin (INPATIENT USE) [Nitrostat] 0.4 mg SUBLINGUAL Q5M PRN 11/06/18 Atorvastatin Calcium [Lipitor] 20 mg PO DAILY 11/21/18 Ondansetron [Zofran Odt] 4 mg PO Q8H PRN PRN #10 tablet 11/24/18 Sotalol HCl [Sotalol] 160 mg PO BID 05/11/19 Lisinopril 5 mg PO DAILY 05/29/19 Meclizine HCl [Antivert] 12.5 mg PO DAILY PRN PRN 05/29/19 Metoprolol Succinate [Toprol Xl] 25 mg PO DAILY 05/29/19 Potassium Chloride [Klor-Con M10] 10 meq PO BID 05/29/19 Venlafaxine HCl [Venlafaxine HCl ER] 37.5 mg PO DAILY 05/29/19 hydrOXYzine pamoate capsule [Vistaril pamoate capsule] 25 mg PO DAILY PRN PRN 05/29/19 Primary Care Physician: Ar Mckeon MD [Primary Care Provider] - Please follow up with your Primary Care Physician in: within 1-2 weeks Disposition: Home Minutes spent on discharge:: 40 Patient Condition:: Stable Medical Necessity - Tobacco Use Smoking Status: Never smoker Tobacco Use: Non-smoker Meaningful Use Info Meaningful Use Diagnoses (Choose all that apply): None applicable Code Visit Inpatient E&M: 66278 Disch Hosp
--- NOTE | 2019-05-30 18:05 | PCM.PN.SRG ---
Subjective: multiple further output from the NG tube - Physical Exam General: Alert, Oriented x3, Cooperative Lungs: Clear to auscultation, Normal air movement Cardiovascular: Regular rate, Irregular Rate Abdomen: Bowel Sounds Present, Soft, Non Tender Vital Signs Temp Pulse Resp BP Pulse Ox 97.9 F 81 16 119/83 H 98 05/30/19 08:23 05/30/19 09:16 05/30/19 08:23 05/30/19 08:23 05/30/19 08:23 Oxygen Delivery Method Room Air Weight: 104.689 kg Body Mass Index (BMI) 32.1 Finger Stick Blood Glucose 95 Intake and Output for Last 24 Hours 05/28/19 05/29/19 05/30/19 23:59 23:59 23:59 Intake Total 967 / 967 1332 / 1332 Output Total 1125 / 1125 1775 / 1775 Balance -158 / -158 -443 / -443 Microbiology Past 72 Hours 05/30/19 09:49 Stool Occult Blood (OLIVER) - Final Stool Laboratory Tests Past 24 Hrs 05/29/19 05/30/19 05/30/19 20:50 04:50 04:50 WBC 6.2 RBC 4.72 Hgb 13.9 14.2 Hct 40.7 42.7 MCV 90.5 MCH 30.1 MCHC 33.3 RDW Std Deviation 41.9 RDW Coeff of Michele 12.7 Plt Count 199 MPV 8.8 Immature Gran % (Auto) 0.300 Neut % (Auto) 60.8 Lymph % (Auto) 24.6 [place] % (Auto) 9.9 Eos % (Auto) 3.6 Baso % (Auto) 0.8 Absolute Neuts (auto) 3.8 Absolute Lymphs (auto) 1.52 Nucleated RBC % 0 Sodium 143 Potassium 4.0 Chloride 110 H Carbon Dioxide 25.0 Anion Gap 8 BUN 9 Creatinine 0.68 L Estim Creat Clear Calc 139.96 Est GFR (MDRD) Af Amer 159 Est GFR (MDRD) Non-Af 131 BUN/Creatinine Ratio 13.2 Glucose 86 Calcium 8.2 L Medical Necessity - Tobacco Use Smoking Status: Never smoker Assessment/Plan All Active Problems (Last Reviewed 12/13/18 @ 21:07 by Jayden Mike MD) Vertigo (Acute) Stroke-like symptoms (Acute) History of cardiac radiofrequency ablation (Resolved) Double vision (Resolved) #1 - hematemesis- Patient's hemoglobin was initially 15 repeat hemoglobin demonstrated 14. He has a nasogastric tube in place which demonstrated some old blood. The patient took his Eliquis last night. upper endoscopy was performed. This demonstrated small suction dash consistent with the nasogastric suctioning but there were no ulcers or varices or signs of bleeding from the duodenum and stomach or esophagus. At this point, I recommend the patient to be fed. If he notes additional bleeding I would recommend ENT consult for possible posterior pharyngeal/nasopharynx bleed #2 - Resolving hematoma-right inguinal hernia site the patient is status post awaiting repair on April 26 developed a large postoperative hematoma and the superficial fatty tissues is tracked extensively down his thigh. He has a small sinuses draining slightly. He does not have signs of chronic infection of the mesh. A consult was placed for wound care nurse evaluation. At this point I still feel this is resolving hematoma without signs of deeper infection. Do not want to have this site probed. #2 - multiple medical comorbidities, psychiatric issues of anxiety-comorbidities challenging to both numbers 1 and 2
--- NOTE | 2019-06-01 14:12 | CASEMGMT ---
RN CM DC PHONE CALL DC DATE: 05/29/19 DC Disposition: Home Diagnosis on Discharge: possible UGIB LACE/STRATA: 31/01 Intro role of CM to patient via phone. Pt states no questions re: f/u, prescriptions or instructions. No care improvement suggestions given. Ivis ESPINALN RN ACM
== END 2019-05-30 12:34 | disposition home or self-care (01) | DRG 379 ==
LOC: ED 13:38 → PCU 14:14
PROVIDERS: Surgery; Admitting Provider Internal Medicine; Emergency Provider Emergency Medicine; Family Provider Family Medicine; PCP Family Medicine; Referring Provider Internal Medicine; Visit Provider Internal Medicine
PROC: 0DJ08ZZ Inspection of Upper Intestinal Tract, Via Natural or Artificial Opening Endoscopic (ICD-10-PCS; CPT 43235; principal; 2019-05-30 06:55)
DX: K92.2 Gastrointestinal hemorrhage, unspecified (principal); I25.10 Atherosclerotic heart disease of native coronary artery without angina pectoris; L76.32 Postprocedural hematoma of skin and subcutaneous tissue following other procedure; G47.33 Obstructive sleep apnea (adult) (pediatric); Y83.8 Other surgical procedures as the cause of abnormal reaction of the patient, or of later complication, without mention of misadventure at the time of the procedure; I10 Essential (primary) hypertension; Z95.5 Presence of coronary angioplasty implant and graft; E78.5 Hyperlipidemia, unspecified; Z79.01 Long term (current) use of anticoagulants; I71.2 Thoracic aortic aneurysm, without rupture; K21.9 Gastro-esophageal reflux disease without esophagitis; I48.0 Paroxysmal atrial fibrillation; F41.9 Anxiety disorder, unspecified
CPT/HCPCS: 36415; 71045; 74018; 80048; 80053; 82274; 83690; 84484; 85014; 85018; 85025; 88305; 88312; 88342; 93005; 94640; 97802; 99285; J7030; A4216; J2405

== ENCOUNTER 2019-06-13 15:30 | Emergency (ER) | payer MEDICARE, SELFPAY ==
[2019-05-30] VITALS: BMI 32.1
[2019-06-13 15:31] VITALS: BP 136/99; PULSE 118; RESP 18; TEMP 36.2; O2SAT 98; BMI 32.1
[2019-06-13 15:39] VITALS: BP 112/78; PULSE 105; RESP 18; O2SAT 98
[2019-06-13] MEDS: Ondansetron 4 MG/2 ML Vial IV (16:03)
[2019-06-13] MEDS: Morphine 4 MG/ML Syringe IV (16:03)
[2019-06-13] MEDS: Ketorolac 15 MG/ML Vial IV (16:03)
--- NOTE | 2019-06-13 17:27 | ED.VIS.GEN ---
History of Present Illness Chief Complaint: Back Informant: Patient Onset: Today Context: Sudden Onset Timing: Continuous Quality: Pain Location: Right lower back Current Severity: Mild Maximum Severity: Severe Worsened by: Movement of any type Relieved by: Better with rest Associated Symptoms: No associated symptoms Narrative: Patient is a 49-year-old male with multiple medical problems who presents with acute right lower back pain. This occurred this morning after rolling over and twisting in bed. He denies bowel bladder dysfunction. No saddle paresthesia or anesthesia. He denies radicular pain. He denies foot drop. He denies weakness or buckling of his knees going up or down steps. He has history of back surgery, remote. He denies flank pain. He denies dysuria, frequency, urgency or hematuria. Prior similar symptoms: No Recent Illness/Hospitalization: No - Past Medical History (1) Atherosclerotic heart disease of [place] coronary artery without angina pectoris Status: Chronic (2) Atrial fibrillation and flutter Status: Chronic (3) BPPV (benign paroxysmal positional vertigo) Status: Chronic (4) Essential hypertension Status: Chronic (5) GERD (gastroesophageal reflux disease) Status: Chronic (6) Nephrolithiasis Status: Chronic (7) LORETTA (obstructive sleep apnea) Status: Chronic (8) Obesity (BMI 30-39.9) Status: Chronic (9) SVT (supraventricular tachycardia) Status: Chronic (10) Thoracic aortic aneurysm without rupture Status: Chronic (11) History of cardiac radiofrequency ablation Status: Resolved Comment: 10/09/[address] [facility] [address] Andrew Past Medical History - Allergies and Home Meds Allergies/Adverse Reactions: Allergies clonidine Allergy (Intermediate, Verified 06/13/19 15:31) rash clindamycin Allergy (Verified 06/13/19 15:31) Rash doxycycline Allergy (Verified 06/13/19 15:31) Rash levofloxacin [From Levaquin] Allergy (Verified 06/13/19 15:31) Rash Penicillins Allergy (Verified 06/13/19 15:31) Hives bupropion Adverse Reaction (Intermediate, Verified 06/13/19 15:31) vomiting celecoxib [From Celebrex] Adverse Reaction (Intermediate, Verified 06/13/19 15:31) vomiting eletriptan Adverse Reaction (Intermediate, Verified 06/13/19 15:31) Vomiting topiramate [From Topamax] Adverse Reaction (Intermediate, Verified 06/13/19 15:31) vomiting hydrocodone bitartrate [From Vicodin] Adverse Reaction (Verified 06/13/19 15:31) Nausea ketorolac [From Toradol] Adverse Reaction (Verified 06/13/19 15:31) PT ON BLOOD THINNERS, PER DR VICTOR HAVE TORADOL Primary Care Physician: Ar Mckeon MD [Primary Care Provider] - Prior records reviewed: No Past Medical History: None Surgical History: - - Left heart catheterization 1 year ago and ablation Lives: Spouse/ Significant Other Smoking Status: Never smoker Alcohol: None Drugs: None - Family History Maternal Family History: Family History (Last Reviewed 12/13/18 @ 21:07 by Jayden Mike MD) Brother Hypertension Mother Heart disease Colon cancer Sister Diabetes Sister Diabetes Sister Diabetes Family History: Reports: - - Maternal family history of DM, Colon CA, Valvular Heart Disease. Paternal Family History: Family History (Last Reviewed 12/13/18 @ 21:07 by Jayden Mike MD) Brother Hypertension Mother Heart disease Colon cancer Sister Diabetes Sister Diabetes Sister Diabetes Family History: Reports: - - Paternal family history of skin CA. Review of Systems Respiratory: Denies: Dyspnea, Cough, Dyspnea on exertion Gastrointestinal: Denies: Abdominal pain, Nausea, Vomiting, Diarrhea, Constipation, Melena, Hematochezia, -, - Genitourinary: Denies: Dysuria, Hematuria, Frequency Musculoskeletal: Reports: Back pain. Denies: Myalgias, Arthralgias, Neck pain, Swelling, Extremity Pain, -, - Hematologic: Reports: Easy bruising. Denies: Easy bleeding Allergy: Denies: Uticaria, Swelling of the mouth Physical Exam Vital Signs/Narrative: Vital Signs Temp Pulse Resp BP Pulse Ox 06/13/19 15:39 105 H 18 112/78 98 06/13/19 15:31 97.1 F L 118 H 18 136/99 H 98 Inital Vital Signs reviewed: Yes General: Well nourished, Well developed, No Acute Distress Head: Normocephalic, Atraumatic Eyes: Perrl, EOMI. Negative for: Pale conjunctiva, Scleral icterus ENT: Moist mucous membranes, No rhinorrhea Cardiovascular: Regular rate, Regular rhythm, No murmurs Respiratory: No distress, CTA bilaterally, Chest nontender Abdomen: Soft, Nontender, Nondistended, Normal bowel sounds, No masses Back: Normal Inspection, - - Well-healed midline lower back incision from prior surgery. Straight leg test is negative. Crossover test is negative. Patella and ankle reflex are 2+ and symmetric. EHL is intact. Gait noted and no foot drop. Able to walk on heels and toes. Able to perform 1 legged squat. No numbness lateral dorsal or medial side of the right or left foot. DP and PT pulses are palpable.. Negative for: Nontender, CVA tenderness, Spinal tenderness Extremities: Nontender, No edema Skin: Normal color, No rash, No Trauma. Negative for: Cyanosis, Diaphoresis, Jaundice Neurological: Alert, Oriented x3, Cranial nerves II-XII grossly intact, Normal Strength, Normal Sensation, Normal DTR, Normal Gait Psychological: Normal Mood Diagnostic/Tx/Re-eval - Medical Decision Making Patient with muscular back pain. He appears in pain and grimaces with movement. He was treated with morphine, Toradol and Zofran. He did not receive a prescription for NSAIDs since he is on anticoagulant. ED Disposition - Plan for ED Patient: Disposition: Home or Assisted Living Diagnosis: Acute low back pain without sciatica Instructions: Back Sprain/Strain Prescriptions: Hydrocodone Bitart/Apap 5-325 [[place] 5MG-325MG] 1 tablet PO Q6H PRN PRN 3 Days #10 tablet PRN Reason: Pain Transmission Status: Sent to [facility] #30 Referrals: Ar Mckeon MD [Primary Care Provider] - Additional Instructions: Your prescription was electronically transmitted to [facility]
[2019-06-13 17:44] VITALS: BP 130/99; PULSE 78; RESP 16
== END 2019-06-13 17:51 | disposition home or self-care (01) ==
PROVIDERS: Emergency Provider Emergency Medicine; Family Provider Family Medicine; PCP Family Medicine
DX: M54.5 Low back pain (principal); I25.10 Atherosclerotic heart disease of native coronary artery without angina pectoris; I10 Essential (primary) hypertension; I48.91 Unspecified atrial fibrillation; I48.92 Unspecified atrial flutter; I47.1 Supraventricular tachycardia; I71.2 Thoracic aortic aneurysm, without rupture; K21.9 Gastro-esophageal reflux disease without esophagitis; G47.33 Obstructive sleep apnea (adult) (pediatric); E66.9 Obesity, unspecified; Z68.32 Body mass index [BMI] 32.0-32.9, adult; Z79.01 Long term (current) use of anticoagulants; Z79.899 Other long term (current) drug therapy
CPT/HCPCS: 99284; A4216; J2405

== ENCOUNTER 2019-06-16 21:44 | Emergency (ER) | payer MEDICARE, SELFPAY ==
[2019-06-16 21:45] VITALS: BP 134/109; PULSE 120; RESP 18; TEMP 36.8; O2SAT 98; BMI 32.1
--- NOTE | 2019-06-16 22:01 | ED.DCSUM_ITS ---
History of Present Illness Chief Complaint: Complaint Detail of Chief Complaint: Bilateral flank pain Informant: Patient Onset: Today Current Severity: Moderate Maximum Severity: Moderate Narrative: Patient was seen in the ER on June 13 with right lower back pain after twisting in bed. He received morphine in the ER and was given a prescription for Blair. He states this has improved the pain, but it is not completely resolved. Today he started getting bilateral flank pain that wraps around to the groins bilaterally. He states he is only urinated twice in the last 12 hours. He states 3 times a day he has felt the urge to urinate but was not able to get urine the past. He last urinated 20 minutes prior to arrival. Past Medical History - Allergies and Home Meds Allergies/Adverse Reactions: Allergies clonidine Allergy (Intermediate, Verified 06/16/19 21:45) rash clindamycin Allergy (Verified 06/16/19 21:45) Rash doxycycline Allergy (Verified 06/16/19 21:45) Rash levofloxacin [From Levaquin] Allergy (Verified 06/16/19 21:45) Rash Penicillins Allergy (Verified 06/16/19 21:45) Hives bupropion Adverse Reaction (Intermediate, Verified 06/16/19 21:45) vomiting celecoxib [From Celebrex] Adverse Reaction (Intermediate, Verified 06/16/19 21:45) vomiting eletriptan Adverse Reaction (Intermediate, Verified 06/16/19 21:45) Vomiting topiramate [From Topamax] Adverse Reaction (Intermediate, Verified 06/16/19 21:45) vomiting hydrocodone bitartrate [From Vicodin] Adverse Reaction (Verified 06/16/19 21:45) Nausea ketorolac [From Toradol] Adverse Reaction (Verified 06/16/19 21:45) PT ON BLOOD THINNERS, PER DR KAYLEIGH LOREDO TORADOL Primary Care Physician: Ar Mckeon MD [Primary Care Provider] - Prior records reviewed: Yes Past Medical History: - - Reviewed Surgical History: - - Left heart catheterization 1 year ago and ablation Lives: Spouse/ Significant Other Smoking Status: Never smoker - Family History Maternal Family History: Family History (Last Reviewed 12/13/18 @ 21:07 by Jayden Mike MD) Brother Hypertension Mother Heart disease Colon cancer Sister Diabetes Sister Diabetes Sister Diabetes Family History: Reports: - - Maternal family history of DM, Colon CA, Valvular Heart Disease. Paternal Family History: Family History (Last Reviewed 12/13/18 @ 21:07 by Jayden Mike MD) Brother Hypertension Mother Heart disease Colon cancer Sister Diabetes Sister Diabetes Sister Diabetes Family History: Reports: - - Paternal family history of skin CA. Review of Systems General: Denies: Chills, Fever Eyes: Denies: Visual changes - bilaterally ENT: Denies: Bilateral ear pain Cardiovascular: Denies: Chest pain Respiratory: Denies: Dyspnea Gastrointestinal: Reports: Abdominal pain. Denies: Nausea, Vomiting Genitourinary: Denies: Dysuria, Frequency Musculoskeletal: Reports: Back pain - Bilateral flank pain Skin: Denies: Rash, Wounds Neurological: Denies: Headache Hematologic: Denies: Easy bruising Allergy: Denies: Uticaria Physical Exam Vital Signs/Narrative: Vital Signs Temp Pulse Resp BP Pulse Ox 06/16/19 21:45 98.2 F 120 H 18 134/109 H 98 Diagnostic/Tx/Re-eval Laboratory Results 06/16/19 06/16/19 06/16/19 22:13 22:13 22:25 WBC 7.1 RBC 5.37 Hgb 15.8 Hct 46.0 MCV 85.7 MCH 29.4 MCHC 34.3 RDW Std Deviation 37.9 RDW Coeff of Michele 12.2 Plt Count 315 MPV 9.1 Immature Gran % (Auto) 0.100 Neut % (Auto) 47.3 Lymph % (Auto) 41.1 H [place] % (Auto) 9.3 Eos % (Auto) 1.5 Baso % (Auto) 0.7 Absolute Neuts (auto) 3.4 Absolute Lymphs (auto) 2.92 Nucleated RBC % 0 Sodium 140 Potassium 3.5 Chloride 110 H Carbon Dioxide 23.0 Anion Gap 7 BUN 13 Creatinine 0.88 Estim Creat Clear Calc 108.15 Est GFR (MDRD) Af Amer 118 Est GFR (MDRD) Non-Af 97 BUN/Creatinine Ratio 14.7 Glucose 113 H Calcium 9.1 Urine Color Yellow Urine Clarity Clear Urine pH 6.5 Ur Specific [place] 1.010 Urine Protein 15 H Urine Glucose (UA) Normal Urine Ketones Negative Urine Occult Blood 250 H Urine Nitrite Negative Urine Bilirubin Negative Urine Urobilinogen 1 H Ur Leukocyte Esterase 25 H Urine RBC 10-25 SEEN Urine WBC 0-5 SEEN Ur Squamous Epith Cells 0 SEEN Urine Bacteria 0 SEEN Urine Mucus 1+ - Medical Decision Making Patient was given morphine and Zofran for pain. Bladder scan does not reveal evidence of urinary retention. Urinalysis does show a small amount of blood. Last CT scan in March showed punctate bilateral renal stones. I advised the patient that even if he is passing a small stone it is not change her management at this point. He is to increase fluids over the next couple of days to help flush his kidneys. He will be given a new prescription for Blair as he is currently out. He cannot take anti-inflammatories secondary to his Eliquis. ED Disposition - Plan for ED Patient: Disposition: Home or Assisted Living Diagnosis: Flank pain Instructions: FLANK PAIN, Uncertain Cause Prescriptions: Hydrocodone Bitart/Apap 5-325 [Blair 5MG-325MG] 1 tablet PO Q6H PRN PRN 3 Days #10 tablet PRN Reason: Pain Referrals: Ar Mckeon MD [Primary Care Provider] - 5-7 Days
[2019-06-16] MEDS: Morphine 4 MG/ML Syringe IV (22:14)
[2019-06-16] MEDS: Ondansetron 4 MG/2 ML Vial IV (22:14)
[2019-06-16 22:28] LABS: Bacteria 0 SEEN /hpf (None Seen); Squamous Epithelial Cells - UA 0 SEEN /hpf (0-5)
[2019-06-16 22:29] LABS: Color, Urine Yellow (Yellow); Glucose, Dipstick Normal (Normal); Ketone-Dipstick Negative (Negative); Leukocyte Esterase-Dipstick 25 /ul (Negative); Nitrite-Dipstick Negative (Negative); Occult Blood-Urine 250 /ul (Negative); Protein-Dipstick 15 mg/dl (Negative); Urine Bilirubin Dipstick Negative (Negative); Urine Clarity Clear (Clear); Urine Urobilinogen 1 mg/dl (Normal); Urine pH 6.5 (5.0 - 8.0)
[2019-06-16 22:30] LABS: Absolute Lymphocyte Count 2.92 X10^3/uL (0.83-4.51); Absolute Neutrophil Count 3.4 X10^3/uL (2.0-7.7); Basophil# 0.05 X10^3/uL; Basophil% 0.7 % (0-1); Eosinophil# 0.11 X10^3/uL; Eosinophils% 1.5 % (0-5); Hemoglobin 15.8 g/dL (13.0-16.5); Lymphocyte # 2.92 X10^3/ul (4.0); Lymphocyte % 41.1 % (19-41); Mean Corp Hgb Conc 34.3 g/dL (32-36); Mean Corpuscular Hgb 29.4 pg (27.0-32.0); Mean Corpuscular Volume 85.7 fL (80-94); Mean Platelet Vol. 9.1 fl (6.2-12.0); Monocyte# 0.66 X10^3/uL; Monocyte% 9.3 % (0-10); NRBC Flagged by Analyzer 0 % (0-5); Neutrophil # 3.35 X10^3/uL (2.7-7.7); Neutrophil % 47.3 % (47-70); Platelet Count 315 K/mm3 (150-450); RBC Distribution Width CV 12.2 % (11.6-14.6); RBC Distribution Width SD 37.9 fl (35.1-43.9); Red Blood Count 5.37 M/mm3 (4.6-6.2); White Blood Count 7.1 K/mm3 (4.4-11.0)
[2019-06-16 22:38] LABS: Mucous, Urine 1+ /hpf (<or=2+)
[2019-06-16 22:39] LABS: Anion Gap 7 (5-15); BUN 13 mg/dL (7-18); BUN/Creat Ratio 14.7 RATIO (10-20); Calcium,Total 9.1 mg/dL (8.5-10.1); Chloride 110 mmol/L (98-107); Creatinine, Serum 0.88 mg/dL (0.70-1.30); EST Glomerular Filtration Rate 97 mL/min (>60); Est Glom Filt Rate - Afr Amer 118 mL/min (>60); Estimated Creatinine Clearance 108.15 ml/min; Glucose 113 mg/dL (74-106); Potassium 3.5 mmol/L (3.5-5.1); Sodium Level 140 mmol/L (136-145)
[2019-06-16 22:39] LABS: Red Blood Cells-Urine 10-25 SEEN /hpf (0-5)
[2019-06-16 22:40] LABS: White Blood Cells 0-5 SEEN /hpf (0-5)
[2019-06-16 23:11] VITALS: BP 138/100; RESP 20
== END 2019-06-16 23:12 | disposition home or self-care (01) ==
PROVIDERS: Emergency Provider Emergency Medicine; Family Provider Family Medicine; PCP Family Medicine
DX: R10.9 Unspecified abdominal pain (principal)
CPT/HCPCS: 80048; 81001; 85025; 96374; 96375; 99283; A4216; J2405

== ENCOUNTER → 2019-06-19 09:47 | Outpatient (CLI) | payer MEDICARE, SELFPAY ==
[2019-06-16 21:45] VITALS: BMI 32.1
--- NOTE | 2019-06-19 09:48 | RAD_ITS ---
STUDY: X-RAY - RIGHT SHOULDER REASON FOR EXAM: Pain. TECHNIQUE: 4 view(s) of the shoulder. COMPARISON: Radiographs 11/08/2018. FINDINGS: Normal glenohumeral articulation. Normal acromioclavicular joint. Normal acromion. Normal humeral head and visualized proximal humerus. The soft tissue structures are unremarkable. Normal visualized pulmonary apex. RAD/Shoulder min 2 Views IMPRESSION: Normal x-ray examination of the right shoulder. Electronically Signed: Camron Louis MD at 15:22 EDT Tel , Service support ,
== END ==
LOC: HPRAD 09:48
PROVIDERS: Family Provider Family Medicine; PCP Family Medicine; Referring Provider Orthopaedic Surgery; Visit Provider Orthopaedic Surgery
DX: M25.511 Pain in right shoulder (principal)
CPT/HCPCS: 73030

== ENCOUNTER 2019-06-20 19:06 | Emergency (ER) | payer MEDICARE, SELFPAY ==
[2019-06-19 10:11] VITALS: BMI 32.1
[2019-06-20 19:06] VITALS: BP 135/99; PULSE 108; PULSE 113; RESP 20; RESP 22; TEMP 36.6; O2SAT 97; O2SAT 99; BMI 32.1
--- NOTE | 2019-06-20 19:18 | EKG12_ITS ---
Test Reason : REPEAT CP Blood Pressure : / mmHG Vent. Rate : 099 BPM Atrial Rate : 099 BPM P-R Int : 174 ms QRS Dur : 080 ms QT Int : 348 ms P-R-T Axes : 012 000 003 degrees QTc Int : 446 ms Normal sinus rhythm Normal ECG Confirmed by INDER CONNOR, ASAEL ([id number]), writer editor STEFFANIE MADISON ([id number]) on 06/23/2019 11:07:08 AM Referred By: Claribel Batista Confirmed By:ASAEL LOVING MD
--- NOTE | 2019-06-20 19:19 | RAD_ITS ---
STUDY: X-RAY CHEST REASON FOR EXAM: Male, 49 years old. Chest pain. Shortness of breath TECHNIQUE: Single AP portable view of the chest. COMPARISON: 05/29/2019 FINDINGS: The lungs are clear and expanded. There is no demonstrated pleural abnormality. Normal size heart. Normal mediastinum and ruben. Normal visualized pulmonary arteries. Normal visualized aortic arch and descending thoracic aorta. Normal visualized thoracic spine. Normal visualized ribs, clavicles, and shoulders. There is no demonstrated abnormality of the visualized soft tissue structures of the upper abdomen. RAD/Chest 1 View (Portable) IMPRESSION: Normal x-ray examination of the chest. Electronically Signed: Lazaro Hoang DO at 19:37 EDT Tel , Service support ,
[2019-06-20 19:23] VITALS: O2SAT 99
[2019-06-20] MEDS: 0.9% Normal Saline 1,000 ML 150 ML IV (19:29)
[2019-06-20] MEDS: LORazepam 2 MG/ML Syringe 1 MG IV (19:30)
[2019-06-20 19:52] LABS: Absolute Lymphocyte Count 2.15 X10^3/uL (0.83-4.51); Absolute Neutrophil Count 3.4 X10^3/uL (2.0-7.7); Basophil# 0.07 X10^3/uL; Basophil% 1.1 % (0-1); Eosinophil# 0.09 X10^3/uL; Eosinophils% 1.4 % (0-5); Hematocrit 47.3 % (40-54); Lymphocyte # 2.15 X10^3/ul (4.0); Lymphocyte % 32.7 % (19-41); Mean Corp Hgb Conc 33.8 g/dL (32-36); Mean Corpuscular Hgb 29.5 pg (27.0-32.0); Mean Corpuscular Volume 87.1 fL (80-94); Monocyte# 0.86 X10^3/uL; Monocyte% 13.1 % (0-10); NRBC Flagged by Analyzer 0 % (0-5); Neutrophil # 3.38 X10^3/uL (2.7-7.7); Neutrophil % 51.4 % (47-70); Platelet Count 278 K/mm3 (150-450); RBC Distribution Width CV 12.6 % (11.6-14.6); RBC Distribution Width SD 39.8 fl (35.1-43.9); Red Blood Count 5.43 M/mm3 (4.6-6.2); White Blood Count 6.6 K/mm3 (4.4-11.0)
[2019-06-20 20:04] LABS: Anion Gap 7 (5-15); BUN 12 mg/dL (7-18); BUN/Creat Ratio 12.3 RATIO (10-20); Calcium,Total 9.1 mg/dL (8.5-10.1); Chloride 110 mmol/L (98-107); Creatinine, Serum 0.98 mg/dL (0.70-1.30); EST Glomerular Filtration Rate 87 mL/min (>60); Est Glom Filt Rate - Afr Amer 105 mL/min (>60); Estimated Creatinine Clearance 97.11 ml/min; Glucose 104 mg/dL (74-106); Potassium 3.3 mmol/L (3.5-5.1); Sodium Level 142 mmol/L (136-145)
[2019-06-20 20:08] LABS: Lipase 182 U/L (73-393)
--- NOTE | 2019-06-20 21:01 | EKG12_ITS ---
Test Reason : CP Blood Pressure : / mmHG Vent. Rate : 112 BPM Atrial Rate : 112 BPM P-R Int : 178 ms QRS Dur : 076 ms QT Int : 330 ms P-R-T Axes : 025 004 014 degrees QTc Int : 450 ms Sinus tachycardia Otherwise normal ECG Confirmed by INDER CONNOR, ASAEL ([id number]), editor trade journal STEFFANIE MADISON ([id number]) on 06/23/2019 11:09:10 AM Referred By: Claribel Batista Confirmed By:ASAEL LOVING MD
--- NOTE | 2019-06-20 21:03 | ED.VISSUMM ---
- ER Visit Summary Date of Service: 06/20/19 Chief Complaint: [Chest pain] History of Present Illness: The patient is a 49 M [presents the emergency department chest pain that started this morning around 4 AM and woke him up initially. Patient states he was diaphoretic with it and dizzy and short of breath. Patient has had symptoms like this multiple times in the past. Patient states that initially the chest pain resolved and he did well relatively throughout the day and then about an hour ago started having more symptoms. He describes a ache and tightness in his mid chest without any real radiation. Patient does have history of hypertension, A. fib, SVT, high cholesterol, and anxiety. Patient states that he recently had his anxiety medication change and was started on Lamictal. Patient states he had a heart catheterization about 3 months ago that required no intervention. Patient denies recent travel or surgery. Patient is on Eliquis and has been compliant.] Physical Examination: [HEENT-PERRLA, EOMI. Cranial nerves II through XII grossly intact. TMs clear. Mucous membranes moist. No adenopathy. Cardiovascular-regular rate and rhythm without murmur or ectopy Lungs-clear to auscultation, chest wall stable without crepitus or subcu emphysema Abdomen-normoactive bowel sounds, soft, nontender, no rebound or rigidity, no peritoneal signs. Extremities-intact ?4, normal range of motion, normal pulses, atraumatic] Test Results: [EKG obtained on arrival showed sinus rhythm with a ventricular rate of 112 bpm with no acute segment changes. CBC with it was normal. Chemistries normal other than a slightly depressed potassium 3.3. Lipase was 182. Troponin is less than 1015. Chest x-ray was normal.] Emergency Department Course and Treatment: [She received Ativan 1 mg IV and he did have improvement in symptomatology.] Treatment Plan: [Patient to follow-up with his primary care physician 3 to 5 days. Patient given a prescription for Ativan as needed. Given patient's recent heart catheterization and multiple visits for chest pain that have been negative and the fact that he has had pain since this morning at 4 AM and has a normal central EKG and troponin I do not feel his chest pain is cardiac and likely related to anxiety.] Disposition: [Discharged to home in stable condition] Impression: [Chest pain Anxiety] This note was generated with Dragon dictation software. It may contain incorrect words, spelling, and punctuation that were not noted in review of the chart prior to signing ED Disposition - Plan for ED Patient: Referrals: Ar Mckeon MD [Primary Care Provider] -
[2019-06-20 21:06] VITALS: BP 120/99; PULSE 102; RESP 20
--- NOTE | 2019-06-20 21:06 | ED.DEP ---
ED Disposition - Plan for ED Patient: Instructions: CHEST PAIN, Uncertain Cause, Panic Attack Prescriptions: Lorazepam [Ativan] 1 mg PO TID PRN #10 tab PRN Reason: Anxiety Prescription Printed Referrals: Ar Mckeon MD [Primary Care Provider] - 3-5 Days
[2019-06-20 21:16] VITALS: BP 120/99; PULSE 102; RESP 20
== END 2019-06-20 21:17 | disposition home or self-care (01) ==
LOC: ED 19:20
PROVIDERS: Emergency Provider Emergency Medicine; Family Provider Family Medicine; PCP Family Medicine
DX: R07.89 Other chest pain (principal); F41.9 Anxiety disorder, unspecified; R05 Cough; I10 Essential (primary) hypertension; I48.91 Unspecified atrial fibrillation; I47.1 Supraventricular tachycardia; E78.00 Pure hypercholesterolemia, unspecified; Z79.01 Long term (current) use of anticoagulants; Z79.899 Other long term (current) drug therapy
CPT/HCPCS: 71045; 80048; 83690; 84484; 85025; 93005; 96361; 96374; 99285; J7030; A4216

== ENCOUNTER 2019-06-24 19:25 | Emergency (ER) | payer MEDICARE, SELFPAY ==
[2019-06-24] VITALS (9 sets, daily range): BP systolic 112–137; BP diastolic 83–107; PULSE 86–115; RESP 16–24; TEMP 36.7; O2SAT 92–100; BMI 32.0
--- NOTE | 2019-06-24 19:33 | EKG12_ITS ---
Test Reason : CP Blood Pressure : / mmHG Vent. Rate : 116 BPM Atrial Rate : 116 BPM P-R Int : 180 ms QRS Dur : 076 ms QT Int : 314 ms P-R-T Axes : 020 014 020 degrees QTc Int : 436 ms Sinus tachycardia Otherwise normal ECG When compared with ECG of 20-JUN-2019 19:52, No significant change was found Confirmed by ATTILA OLIVA ([id number]), rewrite editor RICCO LUZ ([id number] on 07/07/2019 12:56:53 PM Referred By: Claribel Batista Confirmed By:ATTILA OLIVA
--- NOTE | 2019-06-24 19:38 | RAD_ITS ---
STUDY: X-RAY CHEST REASON FOR EXAM: Male, 49 years old. Chest pain TECHNIQUE: Frontal view COMPARISON: None. FINDINGS: The lungs are clear and expanded. There is no demonstrated pleural abnormality. Normal size heart. Normal mediastinum and ruben. Normal visualized pulmonary arteries. Normal visualized aortic arch and descending thoracic aorta. Normal visualized thoracic spine. Normal visualized ribs, clavicles, and shoulders. There is no demonstrated abnormality of the visualized soft tissue structures of the upper abdomen. RAD/Chest 1 View (Portable) IMPRESSION: Normal x-ray examination of the chest. Electronically Signed: Carlos Atkins DO at 21:41 EDT Tel [phone], Service support ,
[2019-06-24 19:54] LABS: Absolute Lymphocyte Count 2.02 X10^3/uL (0.83-4.51); Absolute Neutrophil Count 3.6 X10^3/uL (2.0-7.7); Basophil# 0.05 X10^3/uL; Basophil% 0.8 % (0-1); Eosinophil# 0.17 X10^3/uL; Eosinophils% 2.7 % (0-5); Hematocrit 43.9 % (40-54); Hemoglobin 14.6 g/dL (13.0-16.5); Lymphocyte # 2.02 X10^3/ul (4.0); Lymphocyte % 31.6 % (19-41); Mean Corp Hgb Conc 33.3 g/dL (32-36); Mean Corpuscular Hgb 29.1 pg (27.0-32.0); Mean Corpuscular Volume 87.6 fL (80-94); Mean Platelet Vol. 8.8 fl (6.2-12.0); Monocyte# 0.54 X10^3/uL; Monocyte% 8.5 % (0-10); NRBC Flagged by Analyzer 0 % (0-5); Neutrophil # 3.59 X10^3/uL (2.7-7.7); Neutrophil % 56.1 % (47-70); Platelet Count 243 K/mm3 (150-450); RBC Distribution Width CV 12.8 % (11.6-14.6); RBC Distribution Width SD 41.1 fl (35.1-43.9); Red Blood Count 5.01 M/mm3 (4.6-6.2); White Blood Count 6.4 K/mm3 (4.4-11.0)
[2019-06-24 20:00] LABS: International Normalized Ratio 1.1; Prothrombin Time (Protime)PT. 13.9 SECONDS (11.7-14.9)
--- NOTE | 2019-06-24 20:04 | CT_ITS ---
STUDY: CTA CHEST REASON FOR EXAM: Male, 49 years old. Chest pain RADIATION DOSAGE (If Supplied By Facility): CTDIvol = ( 11.48 ) mGy, DLP = ( 565.97 ) mGycm TECHNIQUE: The examination was performed with the intravenous administration of 100 IV Isovue 370. Post-processing of the angiographic images was performed, with multiplanar reformation and 3D reconstruction. Individualized dose optimization techniques were used for this CT. COMPARISON: December 14, 2018. FINDINGS: Normal enhancement of the main pulmonary artery and right and left pulmonary arteries. Normal enhancement of the bilateral peripheral pulmonary arteries. There is no demonstrated pulmonary embolism. Normal thoracic aorta and visualized great vessels. Dilated ascending aorta measuring 4.4 cm. There is no demonstrated aortic dissection. Normal heart and pericardium. Normal mediastinum. Normal hilar regions. Normal visualized trachea and bronchi. The lungs are well expanded. Normal pulmonary parenchyma. Normal pleura. Normal chest wall structures. Normal osseous structures. Normal visualized upper abdomen. CT/CTA Chest W/WO Contrast IMPRESSION: No demonstrated pulmonary embolism or arterial dissection. Dilated ascending aorta. Electronically Signed: Carlos Atkins DO at 21:20 EDT Tel [phone], Service support ,
[2019-06-24 20:14] LABS: Anion Gap 8 (5-15); BUN 12 mg/dL (7-18); BUN/Creat Ratio 12.1 RATIO (10-20); Calcium,Total 8.8 mg/dL (8.5-10.1); Chloride 111 mmol/L (98-107); Creatinine, Serum 0.99 mg/dL (0.70-1.30); EST Glomerular Filtration Rate 85 mL/min (>60); Est Glom Filt Rate - Afr Amer 103 mL/min (>60); Estimated Creatinine Clearance 96.13 ml/min; Glucose 95 mg/dL (74-106); Potassium 3.8 mmol/L (3.5-5.1); Sodium Level 144 mmol/L (136-145)
[2019-06-24] MEDS: Morphine 4 MG/ML Syringe IV (20:41)
--- NOTE | 2019-06-24 21:08 | ED.VISSUMM ---
- ER Visit Summary Date of Service: 06/24/19 Chief Complaint: Chest pain History of Present Illness: The patient is a 49 M who presents with chest pain that began approximately 10 minutes prior to arrival. Patient states it began while walking back to his house from his barn. Patient describes it as tightness and sharp. Patient states the pain is over the substernal area. Patient states the pain is worse with breathing. Patient admits to some nausea, vomiting, and shortness of breath. Patient also admits to some diaphoresis. Patient also states he passed out for a few seconds. Physical Examination: Vital signs are stable. Patient is afebrile. Patient is in no acute distress. Oral mucosa is pink and moist. Neck is supple. Trachea is midline. There is no JVD noted. Heart was regular rate and rhythm. Lungs are clear and equal bilateral. Abdomen is soft. Bowel sounds are normal. There is no tenderness. There is no guarding noted. Skin is warm dry. Cranial nerves II through XII are intact. There are no focal motor or sensory deficits noted. The remaining physical exam is within normal limits. Test Results: EKG showed sinus tachycardia with a rate of 116. There are no acute ST or T wave changes. CBC and basic metabolic profile are within normal limits. Troponin was normal. INR was normal. Portable chest x-ray was obtained and was normal. CTA of the chest was obtained. There is no evidence of pulmonary embolism or aortic dissection. The ascending aorta was 4.4 cm. A repeat EKG was obtained and does not show any changes except for the heart rate improved to 94. Repeat troponin was obtained and was normal. Emergency Department Course and Treatment: Patient was given morphine and initially. Patient was given aspirin and sublingual nitroglycerin. Patient had no improvement after the sublingual nitroglycerin. Patient has a HEART score of 3. Patient has a RUTH risk score of 1. Patient was advised that this is low risk for acute cardiac event. Patient was instructed to follow-up with his primary care physician in 3 to 5 days for further evaluation. Patient was instructed to take ibuprofen as needed for pain. Patient understood and was agreeable with the plan. All questions were answered. Disposition: Discharge home Impression: Chest pain of uncertain etiology This note was generated with [employer] dictation software. It may contain incorrect words, spelling, and punctuation that were not noted in review of the chart prior to signing ED Disposition - Plan for ED Patient: Disposition: Home or Assisted Living Diagnosis: Chest pain of uncertain etiology Instructions: CHEST PAIN, Uncertain Cause Referrals: Ar Mckeon MD [Primary Care Provider] - 3-5 Days
--- NOTE | 2019-06-24 22:37 | EKG12_ITS ---
Test Reason : REPEAT Blood Pressure : / mmHG Vent. Rate : 094 BPM Atrial Rate : 094 BPM P-R Int : 182 ms QRS Dur : 082 ms QT Int : 364 ms P-R-T Axes : 015 006 019 degrees QTc Int : 455 ms Poor data quality, interpretation may be adversely affected Normal sinus rhythm Normal ECG When compared with ECG of 24-JUN-2019 19:24, MANUAL COMPARISON REQUIRED, DATA IS UNCONFIRMED Confirmed by ATTILA OLIVA ([id number]), makeup editor RICCO LUZ ([id number]) on 07/07/2019 12:57:04 PM Referred By: MICHELLE Confirmed By:ATTILA OLIVA
--- NOTE | 2019-06-24 22:47 | ED.RN ---
PT C/O INCREASED CP. DR HODGES ADVISED
[2019-06-24] MEDS: Nitroglycerin SL (ED/IMG/CATH) 0.4 MG TABLET SUBLINGUAL ×3 (22:49→23:02)
[2019-06-25 00:28] VITALS: BP 127/97; PULSE 86; RESP 17; O2SAT 96
== END 2019-06-25 00:29 | disposition home or self-care (01) ==
PROVIDERS: Emergency Provider Emergency Medicine; Family Provider Family Medicine; PCP Family Medicine
DX: R07.89 Other chest pain (principal); R06.02 Shortness of breath; R11.2 Nausea with vomiting, unspecified; R55 Syncope and collapse; I10 Essential (primary) hypertension; I48.91 Unspecified atrial fibrillation; Z79.899 Other long term (current) drug therapy; Z79.01 Long term (current) use of anticoagulants
CPT/HCPCS: 71045; 71275; 80048; 84484; 85025; 85610; 93005; 96374; 99285; Q9967; A4216

== ENCOUNTER 2019-07-18 20:03 | Emergency (ER) | payer MEDICARE, SELFPAY ==
[2019-06-24 19:25] VITALS: BMI 32.0
[2019-07-18 20:04] VITALS: BP 140/91; PULSE 86; RESP 16; TEMP 36.7; O2SAT 98; BMI 32.1
--- NOTE | 2019-07-18 20:28 | CT_ITS ---
STUDY: CT ABDOMEN AND PELVIS WITHOUT CONTRAST REASON FOR EXAM: Male, 49 years old. Right flank pain RADIATION DOSAGE (If Supplied By Facility): CTDIvol = ( 17.39 ) mGy, DLP = ( 1025.54 ) mGycm TECHNIQUE: Transaxial images were obtained from the dome of the diaphragm to the symphysis pubis without oral contrast, and without intravenous contrast. Sagittal and coronal images were reconstructed. Individualized dose optimization techniques were used for this CT. COMPARISON: CT abdomen and pelvis March 28, 2019 FINDINGS: The visualized lung bases are unremarkable. 6 cm. Valvular or coronary artery calcifications. Normal liver. Normal gallbladder and extrahepatic biliary system. Normal spleen. Normal pancreas. Normal bilateral adrenal glands. Double-J right ureteral stent. Mild right hydronephrosis. 3 mm distal ureterolith on the right. Punctate nonobstructing nephrolith on the left. Normal visualized stomach. Normal small intestine. Normal colon. The appendix is visualized and appears normal. Normal abdominal aorta. Normal inferior vena cava. Normal retroperitoneum. Normal urinary bladder. Fat-containing left inguinal hernia. Normal abdominal wall. Posterior interbody fusion disc spacer at L4-5. CT/Abdomen/Pelvis without Cont IMPRESSION: Mild right hydronephrosis due to a distal 3 mm ureterolith. Right double-J ureteral stent. Electronically Signed: Vidal Luciano MD at 21:36 EDT , Service support ,
[2019-07-18] MEDS: Ondansetron 4 MG/2 ML Vial IV (20:47)
[2019-07-18] MEDS: morphine 8 MG/ML Syringe IV (20:50)
[2019-07-18] MEDS: 0.9% Normal Saline 1,000 ML 1000 ML IV (20:52)
[2019-07-18 21:06] LABS: Absolute Lymphocyte Count 2.29 X10^3/uL (0.83-4.51); Basophil# 0.05 X10^3/uL; Basophil% 0.7 % (0-1); Eosinophil# 0.15 X10^3/uL; Eosinophils% 2.1 % (0-5); Hematocrit 44.8 % (40-54); Hemoglobin 15.1 g/dL (13.0-16.5); Lymphocyte # 2.29 X10^3/ul (4.0); Lymphocyte % 32.2 % (19-41); Mean Corp Hgb Conc 33.7 g/dL (32-36); Mean Corpuscular Hgb 29.2 pg (27.0-32.0); Mean Corpuscular Volume 86.5 fL (80-94); Mean Platelet Vol. 9.1 fl (6.2-12.0); Monocyte# 0.58 X10^3/uL; Monocyte% 8.1 % (0-10); NRBC Flagged by Analyzer 0 % (0-5); Neutrophil # 4.04 X10^3/uL (2.7-7.7); Neutrophil % 56.8 % (47-70); Platelet Count 298 K/mm3 (150-450); RBC Distribution Width CV 12.8 % (11.6-14.6); RBC Distribution Width SD 40.2 fl (35.1-43.9); Red Blood Count 5.18 M/mm3 (4.6-6.2); White Blood Count 7.1 K/mm3 (4.4-11.0)
[2019-07-18 21:15] LABS: Anion Gap 9 (5-15); BUN 7 mg/dL (7-18); BUN/Creat Ratio 8.2 RATIO (10-20); Calcium,Total 9.2 mg/dL (8.5-10.1); Chloride 113 mmol/L (98-107); Creatinine, Serum 0.85 mg/dL (0.70-1.30); EST Glomerular Filtration Rate 102 mL/min (>60); Est Glom Filt Rate - Afr Amer 123 mL/min (>60); Estimated Creatinine Clearance 111.97 ml/min; Glucose 94 mg/dL (74-106); Potassium 3.5 mmol/L (3.5-5.1); Sodium Level 145 mmol/L (136-145)
[2019-07-18 21:42] VITALS: BP 133/98; PULSE 81; RESP 15; O2SAT 97
--- NOTE | 2019-07-18 22:11 | ED.DCSUM_ITS ---
- ER Visit Summary Date of Service: 07/18/19 Chief Complaint: Flank pain History of Present Illness: The patient is a 49 M history of prior TIA, hypertension, A. fib and kidney stone. On Eliquis. Patient states he was diagnosed with a kidney stone about 2-1/2 weeks ago. Had a ureteral stent placed by his urologist in [place]. He is complaining of right flank pain associated with nausea, vomiting and diarrhea. Denies any fever. No dysuria. Is able to urinate. Physical Examination: Middle-aged male no acute distress vital signs stable afebrile. H EENT exam unremarkable. Neck nontender. Lungs clear to auscultation. Heart regular rhythm no murmur. Abdomen is soft and nontender normal bowel sounds no peritoneal signs. Extremities moves all 4. No edema. Back nontender. No CVA tenderness. Neurologically is awake alert. Test Results: CBC showed a normal white count of 7. Hemoglobin 15. Chemistries normal with a normal creatinine and gap. UA shows gross blood. CT flank without contrast shows mild right hydro-with a 3 mm ureter stone with a ureteral stent. Appendix was seen and normal. Emergency Department Course and Treatment: Patient treated with initial dose of morphine a liter fluid and Zofran. He was given a second dose of morphine. On repeat exam he is doing well at 22:07 PM. Once his urine returns along there is no infection will be discharged home. He is comfortable with the plan. Treatment Plan: Continue his current pain medications. Follow-up with his urologist. Return if worse. Disposition: Discharge Impression: Right flank pain secondary to 3 mm stone and a ureteral stent History of stones This note was generated with [employer] dictation software. It may contain incorrect words, spelling, and punctuation that were not noted in review of the chart prior to signing ED Disposition - Plan for ED Patient: Referrals: Ar Mckeon MD [Primary Care Provider] -
[2019-07-18 22:12] LABS: Bacteria 0 SEEN /hpf (None Seen); Mucous, Urine 0 SEEN /hpf (<or=2+); Squamous Epithelial Cells - UA 0 SEEN /hpf (0-5); White Blood Cells 0 SEEN /hpf (0-5)
--- NOTE | 2019-07-18 22:14 | ED.DEP ---
ED Disposition - Plan for ED Patient: Disposition: Home or Assisted Living Instructions: KIDNEY STONE w/ Colic Additional Instructions: Continue your kidney stone pain medication. Plenty of fluids. Follow-up with your urologist as needed. Return if worse. Imodium for the diarrhea.
[2019-07-18 22:15] LABS: Color, Urine Red (Yellow); Glucose, Dipstick Normal (Normal); Ketone-Dipstick 5 mg/dl (Negative); Leukocyte Esterase-Dipstick 100 /ul (Negative); Nitrite-Dipstick Positive (Negative); Occult Blood-Urine 250 /ul (Negative); Protein-Dipstick 100 mg/dl (Negative); Specific Gravity, Urine 1.015 (1.002-1.030); Urine Bilirubin Dipstick Negative (Negative); Urine Clarity Cloudy (Clear); Urine Urobilinogen Normal (Normal); Urine pH 6.5 (5.0 - 8.0)
[2019-07-18 22:23] LABS: Red Blood Cells-Urine > 100 SEEN /hpf (0-5)
[2019-07-18] MEDS: morphine 8 MG/ML Syringe 6 MG IV (22:26)
[2019-07-18 22:49] VITALS: BP 148/116; PULSE 76; RESP 16; O2SAT 98
== END 2019-07-18 22:50 | disposition home or self-care (01) ==
PROVIDERS: Emergency Provider Emergency Medicine; Family Provider Family Medicine; PCP Family Medicine
DX: N13.2 Hydronephrosis with renal and ureteral calculous obstruction (principal); Z87.442 Personal history of urinary calculi; R19.7 Diarrhea, unspecified; I10 Essential (primary) hypertension; I48.91 Unspecified atrial fibrillation; Z79.01 Long term (current) use of anticoagulants; Z79.899 Other long term (current) drug therapy; Z86.73 Personal history of transient ischemic attack (TIA), and cerebral infarction without residual deficits
CPT/HCPCS: 74176; 80048; 81001; 85025; 96361; 96374; 96375; 96376; 99283; J7030; A4216; J2405

== ENCOUNTER 2019-07-20 02:39 | Emergency (ER) | payer MEDICARE, SELFPAY ==
--- NOTE | 2019-07-20 02:43 | CT_ITS ---
STUDY: CT BRAIN WITHOUT CONTRAST REASON FOR EXAM: Male, 49 years old. Status post fall. Hit head on door edge. RADIATION DOSAGE (If Supplied By Facility): CTDIvol = ( 44.99 ) mGy, DLP = ( 762.36 ) mGycm TECHNIQUE: Transaxial CT imaging of the brain was performed without administration of intravenous contrast material. Individualized dose optimization techniques were used for this CT. COMPARISON: 12/13/2018. FINDINGS: Normal soft tissue structures. Normal calvarium. Normal size ventricles and extra-axial spaces for the patient's age. Normal white matter tracts of the cerebral hemispheres. Normal basal ganglia and thalami. Normal brainstem. Normal cerebellum. There is no intracranial hemorrhage. There are no findings of an acute ischemic infarction. Normal visualized paranasal sinuses. CT/Brain/Head without Contrast IMPRESSION: Normal unenhanced CT scan of the brain. Electronically Signed: Inocente Aldrich MD at 3:36 EDT , Service support ,
--- NOTE | 2019-07-20 02:44 | EKG12_ITS ---
Test Reason : SYNCOPE Blood Pressure : / mmHG Vent. Rate : 083 BPM Atrial Rate : 083 BPM P-R Int : 172 ms QRS Dur : 086 ms QT Int : 376 ms P-R-T Axes : 010 -02 010 degrees QTc Int : 441 ms Normal sinus rhythm Minimal voltage criteria for LVH, may be normal variant Borderline ECG Confirmed by INDER CONNOR, ASAEL ([id number]), body builder STEFFANIE MADISON ([id number]) on 07/22/2019 12:20:38 PM Referred By: DORA Confirmed By:ASAEL LOVING MD
--- NOTE | 2019-07-20 02:44 | RAD_ITS ---
STUDY: X-RAY - LEFT SHOULDER REASON FOR EXAM: Male, 49 years old. Trauma. TECHNIQUE: 2 view(s) of the shoulder. COMPARISON: Chest x-ray 06/24/2019. FINDINGS: Normal glenohumeral articulation. Normal acromioclavicular joint. Normal acromion. Normal humeral head and visualized proximal humerus. The soft tissue structures are unremarkable. Normal visualized pulmonary apex. RAD/Shoulder min 2 Views IMPRESSION: Normal x-ray examination of the shoulder. Electronically Signed: Inocente Aldrich MD at 3:47 EDT , Service support ,
--- NOTE | 2019-07-20 02:45 | ED.DCSUM_ITS ---
History of Present Illness Chief Complaint: Fall Informant: Patient Onset: Today Context: Sudden Onset Timing: Continuous Current Severity: Moderate Maximum Severity: Moderate Narrative: The patient presents to the emergency department after a fall. The patient states he has a history of vertigo. Over the past few days, is gotten more frequent. He states he was getting up to go to the bathroom. He states that he got dizzy which she describes as a sensation of motion. He lost his balance and fell. He struck his left shoulder against the door frame. He also struck his head. He does not think he lost consciousness. He denies any nausea vomiting. He states he has chest pain, but that this is chronic. The patient does have a history of atrial flutter and is anticoagulated on Eliquis. He denies any other systemic symptoms. Prior similar symptoms: Yes Recent Illness/Hospitalization: No Past Medical History - Allergies and Home Meds Allergies/Adverse Reactions: Allergies clonidine Allergy (Intermediate, Verified 07/20/19 02:41) rash clindamycin Allergy (Verified 07/20/19 02:41) Rash doxycycline Allergy (Verified 07/20/19 02:41) Rash levofloxacin [From Levaquin] Allergy (Verified 07/20/19 02:41) Rash Penicillins Allergy (Verified 07/20/19 02:41) Hives bupropion Adverse Reaction (Intermediate, Verified 07/20/19 02:41) vomiting celecoxib [From Celebrex] Adverse Reaction (Intermediate, Verified 07/20/19 02:4 1) vomiting eletriptan Adverse Reaction (Intermediate, Verified 07/20/19 02:41) Vomiting topiramate [From Topamax] Adverse Reaction (Intermediate, Verified 07/20/19 02:41) vomiting hydrocodone bitartrate [From Vicodin] Adverse Reaction (Verified 07/20/19 02:41) Nausea ketorolac [From Toradol] Adverse Reaction (Verified 07/20/19 02:41) PT ON BLOOD THINNERS, PER DR KAYLEIGH LOREDO TORADOL Primary Care Physician: Ar Mckeon MD [Primary Care Provider] - Prior records reviewed: Yes Past Medical History: - - Reviewed Surgical History: - - Left heart catheterization 1 year ago and ablation Smoking Status: Never smoker - Family History Maternal Family History: Family History (Last Reviewed 12/13/18 @ 21:07 by Jayden Mike MD) Brother Hypertension Mother Heart disease Colon cancer Sister Diabetes Sister Diabetes Sister Diabetes Family History: Reports: - - Maternal family history of DM, Colon CA, Valvular Heart Disease. Paternal Family History: Family History (Last Reviewed 12/13/18 @ 21:07 by Jayden Mike MD) Brother Hypertension Mother Heart disease Colon cancer Sister Diabetes Sister Diabetes Sister Diabetes Family History: Reports: - - Paternal family history of skin CA. Review of Systems General: Denies: Chills, Fever, Sweats Eyes: Denies: Visual changes - bilaterally, Diplopia ENT: Denies: Rhinorrhea, Sore throat Cardiovascular: Denies: Chest pain, Palpitations Respiratory: Denies: Dyspnea, Cough, Dyspnea on exertion Gastrointestinal: Reports: Nausea. Denies: Abdominal pain, Vomiting, Diarrhea, Melena, Hematochezia Genitourinary: Denies: Dysuria, Hematuria, Frequency Musculoskeletal: Reports: Arthralgias. Denies: Back pain, Extremity Pain Skin: Denies: Rash, Wounds Neurological: Denies: Headache, Weakness, Numbness Psych: Denies: Depression Endocrine: Denies: Polyuria Physical Exam Inital Vital Signs reviewed: Yes General: Well nourished, Well developed, No Acute Distress Head: Normocephalic, Atraumatic Eyes: Perrl, EOMI ENT: Moist mucous membranes, No rhinorrhea Neck: Supple, Nontender Cardiovascular: Regular rate, Regular rhythm, No murmurs Respiratory: No distress, CTA bilaterally, Chest nontender Abdomen: Soft, Nontender, Nondistended, Normal bowel sounds Back: Nontender, Normal Inspection Extremities: No edema, Tenderness - Tenderness over left shoulder. Normal pulses. Axillary nerve preserved. No deformity. Skin: Normal color, No rash Neurological: Alert, Oriented x3, Cranial nerves II-XII grossly intact, Normal Strength, Normal Sensation Psychological: Normal affect, Normal Mood Diagnostic/Tx/Re-eval Clinical Impression(s) from Imaging Studies Brain CT 07/20/19 02:43 IMPRESSION: Normal unenhanced CT scan of the brain. Electronically Signed: Inocente Aldrich MD at 3:36 EDT , Service support , Shoulder X-Ray 07/20/19 02:44 IMPRESSION: Normal x-ray examination of the shoulder. Electronically Signed: Inocente Aldrich MD at 3:47 EDT , Service support , Abnormal Lab Results 07/20/19 07/20/19 02:50 02:50 WBC 5.5 RBC 4.93 Hgb 14.2 Hct 43.0 MCV 87.2 MCH 28.8 MCHC 33.0 RDW Std Deviation 41.2 RDW Coeff of Michele 13.0 Plt Count 244 MPV 8.8 Immature Gran % (Auto) 0.200 Neut % (Auto) 47.1 Lymph % (Auto) 38.2 [place] % (Auto) 11.0 H Eos % (Auto) 2.4 Baso % (Auto) 1.1 H Absolute Neuts (auto) 2.6 Absolute Lymphs (auto) 2.08 Nucleated RBC % 0 Sodium 143 Potassium 3.3 L Chloride 108 H Carbon Dioxide 26.0 Anion Gap 9 BUN 8 Creatinine 0.87 Estim Creat Clear Calc 109.39 Est GFR (MDRD) Af Amer 119 Est GFR (MDRD) Non-Af 98 BUN/Creatinine Ratio 9.2 L Glucose 97 Calcium 9.3 Total Bilirubin 0.40 AST 21 ALT 36 Alkaline Phosphatase 116 Total Protein 6.9 Albumin 3.5 Globulin 3.4 Albumin/Globulin Ratio 1.0 - Rhythm Strip Rhythm Strip: Sinus Rhythm Rate: 80 Ectopy: None - EKG Initial EKG Interpretation: Sinus Rhythm, No Acute Injury Pattern Prior: Unchanged - Medical Decision Making The patient presents to the emergency department with vertiginous symptoms that caused a fall. He has a reassuring neurologic examination. EKG was obtained which was sinus rhythm without acute ischemic change. The patient did strike his head and is on anticoagulants. Noncontrast head CT was obtained which was unremarkable. Plain films of the shoulder where he had direct trauma were also obtained were unremarkable. The patient was given fluids, antiemetics, and analgesics. His symptoms have improved. Lab work is unremarkable. At this point, I do feel that he is safe for outpatient therapy. The patient has had a recent negative MRI of his head. He has had intermittent vertiginous symptoms for 2 weeks. I do not suspect brainstem stroke. I am going to treat the patient with meclizine. He will continue ice and Tylenol for his shoulder pain. He will be discharged home. Impression 1. Vertigo 2. Left shoulder contusion ED Disposition - Plan for ED Patient: Instructions: VERTIGO, Unspecified Prescriptions: Meclizine HCl 25 mg PO TID PRN #30 tab PRN Reason: Dizziness Prescription Printed Referrals: Ar Mckeon MD [Primary Care Provider] -
[2019-07-20 02:46] VITALS: PULSE 86; RESP 17; TEMP 36.8; O2SAT 99; BMI 31.6
[2019-07-20] MEDS: 0.9% Normal Saline 1,000 ML 1000 ML IV (02:57)
[2019-07-20] MEDS: Morphine 4 MG/ML Syringe IV (02:59)
[2019-07-20] MEDS: proMETHazine 25 MG/ML Syringe 6.25 MG IV (02:59)
[2019-07-20 03:01] LABS: Absolute Lymphocyte Count 2.08 X10^3/uL (0.83-4.51); Absolute Neutrophil Count 2.6 X10^3/uL (2.0-7.7); Basophil# 0.06 X10^3/uL; Basophil% 1.1 % (0-1); Eosinophil# 0.13 X10^3/uL; Eosinophils% 2.4 % (0-5); Hemoglobin 14.2 g/dL (13.0-16.5); Lymphocyte # 2.08 X10^3/ul (4.0); Lymphocyte % 38.2 % (19-41); Mean Corpuscular Hgb 28.8 pg (27.0-32.0); Mean Corpuscular Volume 87.2 fL (80-94); Mean Platelet Vol. 8.8 fl (6.2-12.0); NRBC Flagged by Analyzer 0 % (0-5); Neutrophil # 2.57 X10^3/uL (2.7-7.7); Neutrophil % 47.1 % (47-70); Platelet Count 244 K/mm3 (150-450); RBC Distribution Width SD 41.2 fl (35.1-43.9); Red Blood Count 4.93 M/mm3 (4.6-6.2); White Blood Count 5.5 K/mm3 (4.4-11.0)
[2019-07-20 03:20] LABS: AST(SGOT) 21 U/L (15-37); Alanine Aminotransfer ALT/SGPT 36 U/L (16-61); Albumin, Serum 3.5 g/dL (3.2-5.0); Alkaline Phosphatase 116 U/L (45-117); Anion Gap 9 (5-15); BUN 8 mg/dL (7-18); BUN/Creat Ratio 9.2 RATIO (10-20); Calcium,Total 9.3 mg/dL (8.5-10.1); Chloride 108 mmol/L (98-107); Creatinine, Serum 0.87 mg/dL (0.70-1.30); EST Glomerular Filtration Rate 98 mL/min (>60); Est Glom Filt Rate - Afr Amer 119 mL/min (>60); Estimated Creatinine Clearance 109.39 ml/min; Globulin 3.4 g/dL (2.2-4.2); Glucose 97 mg/dL (74-106); Potassium 3.3 mmol/L (3.5-5.1); Protein, Total 6.9 g/dL (6.4-8.2); Sodium Level 143 mmol/L (136-145)
[2019-07-20] MEDS: LORazepam 2 MG/ML Syringe 1 MG IV (03:47)
[2019-07-20] MEDS: HYDROcodone Bitartrate/Apap 5/325 Tablet PO (04:21)
[2019-07-20 04:22] VITALS: BP 128/94; PULSE 84; RESP 18; O2SAT 97
== END 2019-07-20 04:28 | disposition home or self-care (01) ==
LOC: ED 02:51
PROVIDERS: Emergency Provider Emergency Medicine; Family Provider Family Medicine; PCP Family Medicine
DX: R42 Dizziness and giddiness (principal); S40.012A Contusion of left shoulder, initial encounter; W18.39XA Other fall on same level, initial encounter; Y93.89 Activity, other specified; I48.92 Unspecified atrial flutter; Z79.01 Long term (current) use of anticoagulants; Z79.899 Other long term (current) drug therapy
CPT/HCPCS: 70450; 73030; 80053; 85025; 93005; 96361; 96374; 96375; 99285; J7030; A4216

== ENCOUNTER 2019-07-30 08:21 | Observation (INO) | payer MEDICARE, SELFPAY ==
[2019-07-30] VITALS (15 sets, daily range): BP systolic 117–146; BP diastolic 81–112; PULSE 75–100; RESP 15–22; TEMP 36.4–36.7; O2SAT 94–100; BMI 32.1; BMI 31.4; BMI 102.0
--- NOTE | 2019-07-30 08:34 | EKG12_ITS ---
Test Reason : CP Blood Pressure : / mmHG Vent. Rate : 101 BPM Atrial Rate : 101 BPM P-R Int : 186 ms QRS Dur : 080 ms QT Int : 342 ms P-R-T Axes : 011 007 023 degrees QTc Int : 443 ms Sinus tachycardia Otherwise normal ECG Confirmed by EVIE CONNOR, EDEL ([id number]), non linear editor RICCO LUZ ([id number]) on 08/05/2019 9:33:07 AM Referred By: Cory Lomas Confirmed By:GERALD CASE MD
--- NOTE | 2019-07-30 08:34 | CT_ITS ---
STUDY: CTA CHEST REASON FOR EXAM: Male, 49 years old. RADIATION DOSAGE (If Supplied By Facility): CTDIvol = ( 20.82 ) mGy, DLP = ( 939.33 ) mGycm TECHNIQUE: The examination was performed with the intravenous administration of IV Isovue 370 100. Post-processing of the angiographic images was performed, with multiplanar reformation and 3D reconstruction. Individualized dose optimization techniques were used for this CT. COMPARISON: None. FINDINGS: Normal enhancement of the main pulmonary artery and right and left pulmonary arteries. Normal enhancement of the bilateral peripheral pulmonary arteries. There is no demonstrated pulmonary embolism. The ascending thoracic aorta demonstrates mild aneurysmal dilatation and the coronary sinus of Valsalva the aorta measures 4.28 x 3.63 cm in maximal transverse and AP dimension whereas at the level of the superior main pulmonary artery the estimated aorta measures 4.24 x 4.26 cm in maximal transverse and AP dimension.No evidence of an aortic dissection is identified and the mild aneurysmal dilatation of the ascending aorta appears unchanged from the previous CT scan of the chest obtained on 06/24/2019. There is a normal branch pattern to the aortic arch. The descending thoracic aorta appears to be normal. Normal heart and pericardium. Normal mediastinum. Normal hilar regions. Normal visualized trachea and bronchi. The lungs are well expanded. Normal pulmonary parenchyma. Normal pleura. Normal chest wall structures. Normal osseous structures. Normal visualized upper abdomen. CT/CTA Chest W/WO Contrast IMPRESSION: Mild aneurysmal dilatation is noted of the ascending aorta, which is unchanged from the previous CTA of the chest obtained on 06/24/2019. Electronically Signed: René Juan, at 11:18 EDT Tel , Service support ,
--- NOTE | 2019-07-30 08:38 | ED.DCSUM_ITS ---
- ER Visit Summary Date of Service: 07/30/19 Chief Complaint: Chest pain History of Present Illness: The patient is a 49 M with chest pain that started when he woke up this morning about 25 minutes ago. It is over his left chest and radiates to his back. Associated with sweats and nausea. History of ronaldo nary disease. History of atrial fibrillation. He takes Eliquis. History of thoracic aortic aneurysm, 4.9 cm, last evaluated by CT about 2 or 3 months ago. 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 He had a stress test just over a year ago which showed reversible ischemia and he had a cath about a year and a half ago that showed normal coronaries. Physical Examination: Afebrile vital signs unremarkable. Patient appears uncomfortable but not toxic or in distress. Alert and oriented. Heart regular rate and rhythm. Lungs clear. Abdomen soft. Extremities nontender with normal pulses, sensation, and no edema. Test Results: EKG showed sinus rhythm at a rate of 101 with no sign of acute ischemia or infarction pattern. Labs and CT are pending. Emergency Department Course and Treatment: Patient has an aspirin allergy. He was treated with morphine and Zofran while awaiting results. We will check EKG, CT, labs. Patient will likely need admission. EKG showed sinus rhythm at a rate of 101. No sign of acute ischemia or infarction pattern. CBC, metabolic panel, troponin normal. CTA of his chest showed stable aneurysmal dilation. Patient has a history of coronary disease. Presents with chest pain. I believe he needs further inpatient evaluation for this. Will contact the hospitalist fo r further care. Please note that the patient did have an extravasation injury when they were injecting for the CTA at the radiology. He did receive information about this and received pain medicine. Treatment Plan: As above Disposition: Admission Impression: 1. Chest pain This note was generated with ExpertFile dictation software. It may contain incorrect words, spelling, and punctuation that were not noted in review of the chart prior to signing ED Disposition - Plan for ED Patient: Referrals: Ar Mckeon MD [Primary Care Provider] -
[2019-07-30 08:44] LABS: Absolute Lymphocyte Count 2.32 X10^3/uL (0.83-4.51); Absolute Neutrophil Count 2.9 X10^3/uL (2.0-7.7); Basophil# 0.05 X10^3/uL; Basophil% 0.8 % (0-1); Eosinophil# 0.16 X10^3/uL; Eosinophils% 2.7 % (0-5); Hematocrit 47.6 % (40-54); Hemoglobin 15.7 g/dL (13.0-16.5); Lymphocyte # 2.32 X10^3/ul (4.0); Mean Corpuscular Hgb 28.5 pg (27.0-32.0); Mean Corpuscular Volume 86.4 fL (80-94); Mean Platelet Vol. 8.7 fl (6.2-12.0); Monocyte# 0.48 X10^3/uL; Monocyte% 8.1 % (0-10); NRBC Flagged by Analyzer 0 % (0-5); Neutrophil # 2.92 X10^3/uL (2.7-7.7); Neutrophil % 49.1 % (47-70); Platelet Count 267 K/mm3 (150-450); RBC Distribution Width CV 12.6 % (11.6-14.6); RBC Distribution Width SD 39.4 fl (35.1-43.9); Red Blood Count 5.51 M/mm3 (4.6-6.2)
[2019-07-30 08:57] LABS: Anion Gap 7 (5-15); BUN 17 mg/dL (7-18); BUN/Creat Ratio 18.6 RATIO (10-20); Calcium,Total 8.9 mg/dL (8.5-10.1); Chloride 106 mmol/L (98-107); Creatinine, Serum 0.91 mg/dL (0.70-1.30); EST Glomerular Filtration Rate 94 mL/min (>60); Est Glom Filt Rate - Afr Amer 113 mL/min (>60); Estimated Creatinine Clearance 104.58 ml/min; Glucose 88 mg/dL (74-106); Potassium 3.5 mmol/L (3.5-5.1); Sodium Level 140 mmol/L (136-145)
[2019-07-30] MEDS: Morphine 4 MG/ML Syringe IV ×2 (10:00→10:55)
[2019-07-30] MEDS: Ondansetron 4 MG/2 ML Vial IV (10:01)
--- NOTE | 2019-07-30 11:46 | NURSING ---
DR KARLENE FOWLER
--- NOTE | 2019-07-30 11:48 | NURSING ---
PCU OBS CP KARLENE
--- NOTE | 2019-07-30 11:54 | NURSING ---
[facility] 203
--- NOTE | 2019-07-30 12:15 | HP.PCM_ITS ---
Problem List (1) Vertigo Status: Resolved (2) Stroke-like symptoms Status: Resolved (3) Essential hypertension Status: Chronic (4) Atrial fibrillation and flutter Status: Chronic (5) SVT (supraventricular tachycardia) Status: Chronic (6) LORETTA (obstructive sleep apnea) Status: Chronic (7) Atherosclerotic heart disease of [place] coronary artery without angina pectoris Status: Chronic Qualifiers: (8) History of left heart catheterization Status: Chronic Comment: 11/09/2016 @ [facility], per Dr. Cory aHrley: normal coronaries 04/07/2018 @ [facility] per Dr. Harris: normal coronaries (9) History of cardiac radiofrequency ablation Status: Resolved Comment: 10/09/[address] [facility] [address] Andrew (10) Nephrolithiasis Status: Chronic (11) Anxiety Status: Chronic (12) PAF (paroxysmal atrial fibrillation) Status: Chronic (13) GERD (gastroesophageal reflux disease) Status: Chronic Qualifiers: (14) Obesity (BMI 30-39.9) Status: Chronic (15) BPPV (benign paroxysmal positional vertigo) Status: Chronic Qualifiers: (16) HLD (hyperlipidemia) Status: Chronic Qualifiers: (17) Thoracic aortic aneurysm without rupture Status: Chronic History of Present Illness Date of Admission: 07/30/19 Chief Complaint: Chest pain The patient is a 49 year old M past medical history sent in for essential hypertension, dyslipidemia, history of thoracic aneurysm without rupture who presented with chest pain. Patient symptoms started a day prior to coming in. He however was able to go to sleep. He woke up with recurrence of his pain he described the pain as pressure located in the retrosternal region with no radiation. He however took nitroglycerin without much relief subsequently presented to the emergency department. In the ED patient underwent CTA which was negative for dissection or pulmonary embolism. Of note patient had apparently undergone cardiac evaluation with a nuclear stress test 9 months prior to his admission which was reported to be positive for reversible ischemia. This was subsequently followed by a left heart catheterization which failed to demonstrate any hemodynamically significant obstructive lesions. In view of the persistent nature of his symptoms he was admitted to a monitored bed for further management Past Medical History Past Medical History (Chronic Problems): Chronic Problems (Last Reviewed 12/13/18 @ 21:07 by Jayden Mike MD) Essential hypertension (Chronic) Atrial fibrillation and flutter (Chronic) SVT (supraventricular tachycardia) (Chronic) LORETTA (obstructive sleep apnea) (Chronic) Atherosclerotic heart disease of [place] coronary artery without angina pectoris (Chronic) History of left heart catheterization (Chronic) 11/09/2016 @ [facility], per Dr. Cory Harley: normal coronaries 04/07/2018 @ [facility] per Dr. Harris: normal coronaries Nephrolithiasis (Chronic) Anxiety (Chronic) PAF (paroxysmal atrial fibrillation) (Chronic) GERD (gastroesophageal reflux disease) (Chronic) Obesity (BMI 30-39.9) (Chronic) BPPV (benign paroxysmal positional vertigo) (Chronic) HLD (hyperlipidemia) (Chronic) Thoracic aortic aneurysm without rupture (Chronic) Medical History: Medical History (Last Reviewed 07/30/19 @ 12:47 by Cory Lomas MD) SVT (supraventricular tachycardia) (Chronic) I47.1 LORETTA (obstructive sleep apnea) (Chronic) G47.33 Atherosclerotic heart disease of [place] coronary artery without angina pectoris (Chronic) I25.10 Nephrolithiasis (Chronic) N20.0 Anxiety (Chronic) F41.9 PAF (paroxysmal atrial fibrillation) (Chronic) I48.0 GERD (gastroesophageal reflux disease) (Chronic) K21.9 Obesity (BMI 30-39.9) (Chronic) E66.9 BPPV (benign paroxysmal positional vertigo) (Chronic) H81.10 HLD (hyperlipidemia) (Chronic) E78.5 Thoracic aortic aneurysm without rupture (Chronic) I71.2 Allergies clonidine Allergy (Intermediate, Verified 07/30/19 10:13) rash clindamycin Allergy (Verified 07/30/19 10:13) Rash doxycycline Allergy (Verified 07/30/19 10:13) Rash levofloxacin [From Levaquin] Allergy (Verified 07/30/19 10:13) Rash Penicillins Allergy (Verified 07/30/19 10:13) Hives bupropion Adverse Reaction (Intermediate, Verified 07/30/19 10:13) vomiting celecoxib [From Celebrex] Adverse Reaction (Intermediate, Verified 07/30/19 10:13) vomiting eletriptan Adverse Reaction (Intermediate, Verified 07/30/19 10:13) Vomiting topiramate [From Topamax] Adverse Reaction (Intermediate, Verified 07/30/19 10:13) vomiting hydrocodone bitartrate [From Vicodin] Adverse Reaction (Verified 07/30/19 10:13) Nausea ketorolac [From Toradol] Adverse Reaction (Verified 07/30/19 10:13) PT ON BLOOD THINNERS, PER DR KAYLEIGH BROWER Home Medications: Ambulatory Orders Medication Instructions Recorded Pantoprazole Sodium [Protonix] 40 mg PO DAILY 04/22/16 Albuterol Inhaler [Ventolin Hfa] 1 - 2 puff INHALATION Q4H PRN PRN 07/15/17 #1 inhaler Apixaban [Eliquis] 5 mg PO BID 09/21/17 Fluticasone 0.05% [Flonase Nasal 1 spray NASAL DAILY #1 nasal.sry 08/31/18 [place]] Promethazine HCl 25 mg PO DAILY PRN 08/31/18 Amlodipine Besylate [Norvasc] 5 mg PO BID 11/06/18 Nitroglycerin (INPATIENT USE) 0.4 mg SUBLINGUAL Q5M PRN 11/06/18 [Nitrostat] Atorvastatin Calcium [Lipitor] 20 mg PO DAILY 11/21/18 Ondansetron [Zofran Odt] 4 mg PO Q8H PRN PRN #10 tab 11/24/18 Sotalol HCl [Sotalol] 160 mg PO BID 05/11/19 Lisinopril 10 mg PO DAILY 05/29/19 Metoprolol Succinate [Toprol Xl] 25 mg PO BID 05/29/19 Potassium Chloride [Klor-Con M10] 10 meq PO BID 05/29/19 hydrOXYzine pamoate capsule 25 mg PO DAILY PRN PRN 05/29/19 [Vistaril pamoate capsule] Lamotrigine 100 mg PO DAILY 06/24/19 Meclizine HCl 25 mg PO TID PRN #30 tab 07/20/19 Surgical History: Surgical History (Last Reviewed 07/30/19 @ 12:47 by Cory Lomas MD) History of left heart catheterization (Chronic) Z98.890 11/09/2016 @ [facility], per Dr. Cory Harley: normal coronaries 04/07/2018 @ [facility] per Dr. Harris: normal coronaries History of cardiac radiofrequency ablation (Resolved) Z98.890 10/09/[address] [facility] [address] Andrew laser lithotripsy Onset Date: ~06/2018 H/O arthroscopic knee surgery Z98.890 History of back surgery Z98.890 History of right knee surgery Z98.890 Surgical History: - - Left heart catheterization 1 year ago and ablation Psychiatric History: Anxiety Smoking Status: Never smoker - *Family History Maternal Family History: Family History (Last Reviewed 07/30/19 @ 12:47 by Cory Lomas MD) Brother Hypertension Mother Heart disease Colon cancer Sister Diabetes Sister Diabetes Sister Diabetes History Items: - - Maternal family history of DM, Colon CA, Valvular Heart Disease. Paternal Family History: Family History (Last Reviewed 07/30/19 @ 12:47 by Cory Lomas MD) Brother Hypertension Mother Heart disease Colon cancer Sister Diabetes Sister Diabetes Sister Diabetes History Items: - - Paternal family history of skin CA. Review of Systems Constitutional: Denies: Anorexia, Chills, Fever, Night Sweats, Weight Change HEENT: Denies: Head Aches, Sinus Congestion, Sinus Drainage Cardiovascular: Reports: Chest Pain. Denies: Orthopnea, Palpitations, Paroxysmal Noc. Dyspnea Respiratory: Denies: Cough, Shortness of breath at rest, Shortness of breath upon exertion, Sputum production Gastrointestinal: Denies: Abdominal Pain, Hematemesis, Hematochezia, Nausea, Melena, Vomiting Genitourinary: Denies: Dysuria, Frequency, Hematuria, Urgency Musculoskeletal: Denies: Joint Pain, Joint Tenderness Skin: Denies: Rash Neurological: Denies: Focal weakness, Numbness, Tingling Psychiatric: Denies: Homicidal Ideations, Suicidal Ideations Hematologic/ Lymphatic: Denies: Easy Bruising, Easy Bleeding VTE Information - Inpt Only VTE Present on Admission: No VTE Mechan Device Prophylaxis: None VTE Pharm Prophylaxis ordered?: Yes Objective: GENERAL: cooperative HEENT: Atraumatic; moist oral mucosa EYES; Anicteric, Normal Conjunctiva NECK; supple, normal thyroid, RESPIRATORY: Diminished to auscultation bilaterally, CARDIOVASCULAR: Regular S1 S2, GI: soft, non-tender, normoactive bowel sounds, : No Renal angle tenderness; EXTREMITIES: No edema, no clubbing, no cyanosis. MUSCULOSKELETAL: No Joint Tenderness; NEURO: Awake; no lateralizing signs. SKIN: No Rash PSYCH; Normal affect - Physical Exam Vital Signs Temp Pulse Resp BP Pulse Ox 97.5 F L 83 18 124/112 H 99 10/10/19 08:22 07/30/19 12:00 07/30/19 12:00 07/30/19 12:00 07/30/19 12:00 Oxygen Delivery Method Room Air Weight: 104.326 kg Body Mass Index (BMI) 32.1 Finger Stick Blood Glucose 95 Laboratory Tests Past 24 Hrs 07/30/19 07/30/19 08:31 08:31 WBC 6.0 RBC 5.51 Hgb 15.7 Hct 47.6 MCV 86.4 MCH 28.5 MCHC 33.0 RDW Std Deviation 39.4 RDW Coeff of Michele 12.6 Plt Count 267 MPV 8.7 Immature Gran % (Auto) 0.300 Neut % (Auto) 49.1 Lymph % (Auto) 39.0 [place] % (Auto) 8.1 Eos % (Auto) 2.7 Baso % (Auto) 0.8 Absolute Neuts (auto) 2.9 Absolute Lymphs (auto) 2.32 Nucleated RBC % 0 Sodium 140 Potassium 3.5 Chloride 106 Carbon Dioxide 27.0 Anion Gap 7 BUN 17 Creatinine 0.91 Estim Creat Clear Calc 104.58 Est GFR (MDRD) Af Amer 113 Est GFR (MDRD) Non-Af 94 BUN/Creatinine Ratio 18.6 Glucose 88 Calcium 8.9 Troponin I < 0.015 Assessment/Plan All Active Problems (Last Reviewed 12/13/18 @ 21:07 by Jayden Mike MD) Vertigo (Resolved) Stroke-like symptoms (Resolved) History of cardiac radiofrequency ablation (Resolved) Double vision (Resolved) Patient is a 49-year-old gentleman presented with chest pain 1. Chest pain: ~Admitted to monitored bed ruling out MA with serial cardiac enzymes. Did not order a repeat stress test since patient had undergone recent cardiac evaluation 2. Paroxysmal atrial fibrillation ~patient is on sotalol as well as systemic anticoagulation with apixaban 3. Dyslipidemia ~patient is on statin therapy, continued at home dose 4. Hypertension ~ blood pressure controlled, home medications continued with dose adjustment as needed 5. Known history of thoracic aortic aneurysm without rupture ~CT obtained on admission demonstrated Mild aneurysmal dilatation is noted of the ascending aorta, which is unchanged from the previous CTA of the chest obtained on 06/24/2019 6. Obesity with BMI of 32.1 ~ Counseled on weight loss 7. DVT prophylaxis ~ patient is on apixaban no need for additional measures Active Medications Acetaminophen (Tylenol) 650 mg PO Q6H PRN PRN PRN Reason: Pain Score 1-3/Temp > 100.7 F Al Hydroxide/Mg Hydroxide (Mylanta Ii) 30 ml PO Q6H PRN PRN PRN Reason: Gastric Burning Albuterol Sulfate (Ventolin Aerosols) 2.5 mg INHALATION Q2H PRN PRN PRN Reason: SOB/Wheezing Amlodipine Besylate (Norvasc) 5 mg PO BID [facility] Apixaban (Eliquis) 5 mg PO BID [facility] Atorvastatin Calcium (Lipitor) 20 mg PO QHS [facility] Fluticasone Propionate (Flonase Nasal [place]) 1 spray NASAL DAILY [facility] Guaifenesin (Robitussin) 20 ml PO Q4H PRN PRN PRN Reason: COUGH Hydroxyzine Pamoate (Vistaril Pamoate Capsule) 25 mg PO DAILY PRN PRN PRN Reason: ANXIETY Sodium Chloride () 250 mls @ 15 mls/hr IV .[id number] PRN PRN Reason: SALINE FLUSH Lamotrigine (Lamictal) 100 mg PO DAILY [facility] Lisinopril (Zestril) 10 mg PO DAILY [facility] Magnesium Hydroxide (Milk Of Magnesia) 30 ml PO DAILY PRN PRN PRN Reason: Constipation Meclizine HCl (Antivert) 25 mg PO TID PRN PRN Reason: DIZZINESS Melatonin (Melatonin) 3 mg PO QHS PRN PRN PRN Reason: INSOMNIA Metoprolol Succinate (Toprol Xl (Beta [place])) 25 mg PO BID [facility] Ondansetron HCl (Zofran Odt) 4 mg PO Q8H PRN PRN PRN Reason: NAUSEA Ondansetron HCl (Zofran) 4 mg IV Q8H PRN PRN PRN Reason: NAUSEA/VOMITING Pantoprazole Sodium (Protonix) 40 mg PO DAILY [facility] Potassium Chloride (K-Dur) 10 meq PO BID [facility] Promethazine HCl (Phenergan Tablet) 25 mg PO DAILY PRN PRN Reason: NAUSEA Sodium Chloride () 5 - 15 ml IV UD PRN PRN Reason: SALINE FLUSH Sotalol HCl (Betapace (G)) 160 mg PO BID [facility] Clinical Impression(s) from Imaging Studies Chest CTA 07/30/19 08:34 IMPRESSION: Mild aneurysmal dilatation is noted of the ascending aorta, which is unchanged from the previous CTA of the chest obtained on 06/24/2019. Electronically Signed: René Juan, at 11:18 EDT Tel , Service support , Code Visit OBSV E&M: [id number] Initial observation care L3
[2019-07-30 13:26] LABS: Thyroid Stim Hormone (TSH) 2.83 uIU/mL (0.358-3.74)
[2019-07-30] MEDS: oxyCODONE 5 MG Tablet PO ×3 (14:08→23:00)
[2019-07-30] MEDS: amLODIPine 5 MG Tablet PO ×2 (14:21→21:23)
[2019-07-30] MEDS: Metoprolol(XL)Succ 25 MG Tablet PO ×2 (14:21→21:21)
[2019-07-30] MEDS: Ondansetron ODT 4 MG Tablet PO (14:27)
[2019-07-30] MEDS: hydrOXYzine PAM 25 MG Capsule PO (14:27)
[2019-07-30] MEDS: Sotalol Hydrochloride 80 MG Tablet 160 MG PO ×2 (15:15→21:22)
[2019-07-30] MEDS: Lisinopril 10 MG Tablet PO (15:15)
[2019-07-30] MEDS: lamoTRIgine 100 MG Tablet PO (15:16)
[2019-07-30] MEDS: Pantoprazole Sodium 40 MG Tablet PO (15:16)
[2019-07-30] MEDS: APIXABAN 5 MG TABLET PO ×2 (16:32→21:23)
[2019-07-30] MEDS: Acetaminophen 325 MG Tablet 650 MG PO (20:13)
--- NOTE | 2019-07-30 20:33 | NURSING ---
Tylenol given per pt request, his pain level was an 8/10 in his left arm, from IV extravasation from his previous CT scan. Pt has oxyir for pain level of 4-10 also for pain that is not due until 22:11.
[2019-07-31 02:15] VITALS: BP 132/88; PULSE 65; RESP 20; TEMP 36.4; O2SAT 96
[2019-07-31 04:00] VITALS: PULSE 58
[2019-07-31] MEDS: oxyCODONE 5 MG Tablet PO ×2 (05:17→09:39)
--- NOTE | 2019-07-31 07:39 | PCM.DC ---
You will use the following diet at home:: No restrictions Your food should be the consistency of: Regular Discharge Activity: Return to Normal Activity Allergies/Adverse Reactions: Allergies clonidine Allergy (Intermediate, Verified 07/30/19 10:13) rash clindamycin Allergy (Verified 07/30/19 10:13) Rash doxycycline Allergy (Verified 07/30/19 10:13) Rash levofloxacin [From Levaquin] Allergy (Verified 07/30/19 10:13) Rash Penicillins Allergy (Verified 07/30/19 10:13) Hives bupropion Adverse Reaction (Intermediate, Verified 07/30/19 10:13) vomiting celecoxib [From Celebrex] Adverse Reaction (Intermediate, Verified 07/30/19 10:13) vomiting eletriptan Adverse Reaction (Intermediate, Verified 07/30/19 10:13) Vomiting topiramate [From Topamax] Adverse Reaction (Intermediate, Verified 07/30/19 10:13) vomiting hydrocodone bitartrate [From Vicodin] Adverse Reaction (Verified 07/30/19 10:13) Nausea ketorolac [From Toradol] Adverse Reaction (Verified 07/30/19 10:13) PT ON BLOOD THINNERS, PER DR VICTOR HAVE TORADOL Medications to take at Discharge Pantoprazole Sodium [Protonix] 40 mg PO DAILY 04/22/16 Albuterol Inhaler [Ventolin Hfa] 1 - 2 puff INHALATION Q4H PRN PRN #1 inhaler 07/15/17 Apixaban [Eliquis] 5 mg PO BID 09/21/17 Fluticasone 0.05% [Flonase Nasal [place]] 1 spray NASAL DAILY #1 nasal.sry 08/31/18 Promethazine HCl 25 mg PO DAILY PRN 08/31/18 Amlodipine Besylate [Norvasc] 5 mg PO BID 11/06/18 Nitroglycerin (INPATIENT USE) [Nitrostat] 0.4 mg SUBLINGUAL Q5M PRN 11/06/18 Atorvastatin Calcium [Lipitor] 20 mg PO DAILY 11/21/18 Ondansetron [Zofran Odt] 4 mg PO Q8H PRN PRN #10 tab 11/24/18 Sotalol HCl [Sotalol] 160 mg PO BID 05/11/19 Lisinopril 10 mg PO DAILY 05/29/19 Metoprolol Succinate [Toprol Xl] 25 mg PO BID 05/29/19 Potassium Chloride [Klor-Con M10] 10 meq PO BID 05/29/19 hydrOXYzine pamoate capsule [Vistaril pamoate capsule] 25 mg PO BID 05/29/19 Lamotrigine 50 mg PO DAILY 06/24/19 Meclizine HCl 25 mg PO TID PRN #30 tab 07/20/19 Primary Care Physician: Ar Mckeon MD [Primary Care Provider] - Please follow up with your Primary Care Physician in: in 5-7 days Test Results: Test results from this visit will be discussed in further detail at your follow-up appointment, if applicable. Proposed Discharge Date: 07/31/19
--- NOTE | 2019-07-31 07:40 | PCM.DC.SUM ---
Discharge Date and Diagnosis Date of Admission: 07/30/19 Date of Discharge: 07/31/19 - Primary Discharge Diagnosis Atypical chest pain - Secondary Discharge Diagnosis Chronic Problems (Last Reviewed 07/30/19 @ 12:47 by Cory Lomas MD) Essential hypertension (Chronic) Atrial fibrillation and flutter (Chronic) SVT (supraventricular tachycardia) (Chronic) LORETTA (obstructive sleep apnea) (Chronic) Atherosclerotic heart disease of [place] coronary artery without angina pectoris (Chronic) History of left heart catheterization (Chronic) 11/09/2016 @ [facility], per Dr. Cory Harley: normal coronaries 04/07/2018 @ [facility] per Dr. Harris: normal coronaries Nephrolithiasis (Chronic) Anxiety (Chronic) PAF (paroxysmal atrial fibrillation) (Chronic) GERD (gastroesophageal reflux disease) (Chronic) Obesity (BMI 30-39.9) (Chronic) BPPV (benign paroxysmal positional vertigo) (Chronic) HLD (hyperlipidemia) (Chronic) Thoracic aortic aneurysm without rupture (Chronic) Hospital Course and Treatment Imaging Results: Clinical Impression(s) from Imaging Studies Chest CTA 07/30/19 08:34 IMPRESSION: Mild aneurysmal dilatation is noted of the ascending aorta, which is unchanged from the previous CTA of the chest obtained on 06/24/2019. Electronically Signed: René Juan, at 11:18 EDT Tel , Service support , Operations: None Summary of Care Provided: Patient is a 49-year-old gentleman presented with chest pain 1. Chest pain: ~Admitted to monitored bed did rule out TX with serial cardiac enzymes. Did not order a repeat stress test since patient had undergone recent cardiac evaluation and was discharged home instructed to follow-up with PT as well as primary staff internist office based only for subsequent management 2. Paroxysmal atrial fibrillation ~patient is on sotalol as well as systemic anticoagulation with apixaban 3. Dyslipidemia ~patient is on statin therapy, continued at home dose 4. Hypertension ~ blood pressure controlled, home medications continued with dose adjustment as needed 5. Known history of thoracic aortic aneurysm without rupture ~CT obtained on admission demonstrated Mild aneurysmal dilatation is noted of the ascending aorta, which is unchanged from the previous CTA of the chest obtained on 06/24/2019 6. Obesity with BMI of 32.1 ~ Counseled on weight loss 7. DVT prophylaxis ~ patient is on apixaban no need for additional measures Objective: GENERAL: cooperative HEENT: Atraumatic; moist oral mucosa EYES; Anicteric, Normal Conjunctiva NECK; supple, normal thyroid, RESPIRATORY: Diminished to auscultation bilaterally, CARDIOVASCULAR: Regular S1 S2, GI: soft, non-tender, normoactive bowel sounds, : No Renal angle tenderness; EXTREMITIES: No edema, no clubbing, no cyanosis. MUSCULOSKELETAL: No Joint Tenderness; NEURO: Awake; no lateralizing signs. SKIN: No Rash PSYCH; Normal affect - Physical Exam Vital Signs Temp Pulse Resp BP Pulse Ox 97.5 F L 58 L 20 H 132/88 H 96 07/31/19 02:15 07/31/19 04:00 07/31/19 02:15 07/31/19 02:15 07/31/19 02:15 Oxygen Delivery Method Room Air Weight: 102.6 kg Body Mass Index (BMI) 31.4 Finger Stick Blood Glucose 95 Intake and Output for Last 24 Hours 07/29/19 07/30/19 07/31/19 23:59 23:59 23:59 Intake Total 1144 / 1144 150 / 150 Output Total 625 / 625 Balance 519 / 519 150 / 150 Laboratory Tests Past 24 Hrs 07/30/19 07/30/19 07/30/19 08:31 08:31 12:55 WBC 6.0 RBC 5.51 Hgb 15.7 Hct 47.6 MCV 86.4 MCH 28.5 MCHC 33.0 RDW Std Deviation 39.4 RDW Coeff of Michele 12.6 Plt Count 267 MPV 8.7 Immature Gran % (Auto) 0.300 Neut % (Auto) 49.1 Lymph % (Auto) 39.0 [place] % (Auto) 8.1 Eos % (Auto) 2.7 Baso % (Auto) 0.8 Absolute Neuts (auto) 2.9 Absolute Lymphs (auto) 2.32 Nucleated RBC % 0 Sodium 140 Potassium 3.5 Chloride 106 Carbon Dioxide 27.0 Anion Gap 7 BUN 17 Creatinine 0.91 Estim Creat Clear Calc 104.58 Est GFR (MDRD) Af Amer 113 Est GFR (MDRD) Non-Af 94 BUN/Creatinine Ratio 18.6 Glucose 88 Calcium 8.9 Troponin I < 0.015 < 0.015 TSH 2.83 07/30/19 15:40 WBC RBC Hgb Hct MCV MCH MCHC RDW Std Deviation RDW Coeff of Michele Plt Count MPV Immature Gran % (Auto) Neut % (Auto) Lymph % (Auto) [place] % (Auto) Eos % (Auto) Baso % (Auto) Absolute Neuts (auto) Absolute Lymphs (auto) Nucleated RBC % Sodium Potassium Chloride Carbon Dioxide Anion Gap BUN Creatinine Estim Creat Clear Calc Est GFR (MDRD) Af Amer Est GFR (MDRD) Non-Af BUN/Creatinine Ratio Glucose Calcium Troponin I < 0.015 TSH Discharge Diet: No Restrictions Discharge Activity: Return to Normal Activity Home Medications: Medications to take at Discharge Pantoprazole Sodium [Protonix] 40 mg PO DAILY 04/22/16 Albuterol Inhaler [Ventolin Hfa] 1 - 2 puff INHALATION Q4H PRN PRN #1 inhaler 07/15/17 Apixaban [Eliquis] 5 mg PO BID 09/21/17 Fluticasone 0.05% [Flonase Nasal [place]] 1 spray NASAL DAILY #1 nasal.sry 08/31/18 Promethazine HCl 25 mg PO DAILY PRN 08/31/18 Amlodipine Besylate [Norvasc] 5 mg PO BID 11/06/18 Nitroglycerin (INPATIENT USE) [Nitrostat] 0.4 mg SUBLINGUAL Q5M PRN 11/06/18 Atorvastatin Calcium [Lipitor] 20 mg PO DAILY 11/21/18 Ondansetron [Zofran Odt] 4 mg PO Q8H PRN PRN #10 tab 11/24/18 Sotalol HCl [Sotalol] 160 mg PO BID 05/11/19 Lisinopril 10 mg PO DAILY 05/29/19 Metoprolol Succinate [Toprol Xl] 25 mg PO BID 05/29/19 Potassium Chloride [Klor-Con M10] 10 meq PO BID 05/29/19 hydrOXYzine pamoate capsule [Vistaril pamoate capsule] 25 mg PO BID 05/29/19 Lamotrigine 50 mg PO DAILY 06/24/19 Meclizine HCl 25 mg PO TID PRN #30 tab 07/20/19 Primary Care Physician: Ar Mckeon MD [Primary Care Provider] - Please follow up with your Primary Care Physician in: in 5-7 days Disposition: Home Minutes spent on discharge:: 35 Patient Condition:: Stable Medical Necessity - Tobacco Use Smoking Status: Never smoker Meaningful Use Info Meaningful Use Diagnoses (Choose all that apply): None applicable Code Visit OBSV E&M: 58015 Observation care discharge
[2019-07-31 07:47] VITALS: PULSE 59
[2019-07-31 07:53] VITALS: O2SAT 96
[2019-07-31 08:00] VITALS: BP 113/75; PULSE 63; RESP 20; TEMP 36.4; O2SAT 99
[2019-07-31] MEDS: Ondansetron ODT 4 MG Tablet PO (08:04)
[2019-07-31] MEDS: Sotalol Hydrochloride 80 MG Tablet 160 MG PO (09:21)
[2019-07-31 09:22] VITALS: PULSE 67
[2019-07-31] MEDS: Metoprolol(XL)Succ 25 MG Tablet PO (09:22)
[2019-07-31] MEDS: lamoTRIgine 100 MG Tablet PO (09:22)
[2019-07-31] MEDS: Lisinopril 10 MG Tablet PO (09:22)
[2019-07-31] MEDS: Pantoprazole Sodium 40 MG Tablet PO (09:22)
[2019-07-31] MEDS: amLODIPine 5 MG Tablet PO (09:22)
[2019-07-31] MEDS: APIXABAN 5 MG TABLET PO (09:42)
== END 2019-07-31 10:45 | disposition home or self-care (01) ==
LOC: ED 09:10 → ICU 12:04
PROVIDERS: Admitting Provider Internal Medicine; Emergency Provider Emergency Medicine; Family Provider Family Medicine; PCP Family Medicine; Referring Provider Internal Medicine; Visit Provider Internal Medicine
DX: R07.89 Other chest pain (principal); I10 Essential (primary) hypertension; G47.33 Obstructive sleep apnea (adult) (pediatric); I25.10 Atherosclerotic heart disease of native coronary artery without angina pectoris; I47.1 Supraventricular tachycardia; I48.0 Paroxysmal atrial fibrillation; K21.9 Gastro-esophageal reflux disease without esophagitis; E66.9 Obesity, unspecified; F41.9 Anxiety disorder, unspecified; E78.5 Hyperlipidemia, unspecified; H81.10 Benign paroxysmal vertigo, unspecified ear; Z71.3 Dietary counseling and surveillance; Z79.899 Other long term (current) drug therapy; Z79.01 Long term (current) use of anticoagulants; Z68.32 Body mass index [BMI] 32.0-32.9, adult
CPT/HCPCS: 71275; 80048; 84443; 84484; 85025; 93005; 96374; 96375; 96376; 97802; 99218; 99251; 99285; Q9967; A4216; G0378; G0463; J2405

== ENCOUNTER 2019-08-01 15:06 | Emergency (ER) | payer MEDICARE, SELFPAY ==
[2019-07-30 13:00] VITALS: BMI 31.4
[2019-08-01 15:07] VITALS: BP 136/83; PULSE 101; RESP 16; RESP 18; TEMP 35.9; BMI 31.8
--- NOTE | 2019-08-01 15:23 | ED.DEP ---
ED Disposition - Plan for ED Patient: Instructions: THROMBOPHLEBITIS, Superficial Referrals: Ar Mckeon MD [Primary Care Provider] -
--- NOTE | 2019-08-01 15:26 | ED.DCSUM_ITS ---
- ER Visit Summary Date of Service: 08/01/19 Chief Complaint: Left arm pain History of Present Illness: The patient is a 49 M presenting with left arm pain. Patient states he was seen on and had a CT scan done at that time. He states the IV infiltrated. He was concerned today due to pain in his left arm and concern for redness and swelling. He tried Tylenol at home. He is on Eliquis for history of A. fib. He denies chest pain or shortness of breath. Denies fever. Denies other complaints. Physical Examination: Vitals are stable. Patient is afebrile. Alert no acute distress. HEENT exam is unremarkable. Neck is supple. Lungs are clear and equal bilaterally. Heart is regular rate and rhythm. Extremities are unremarkable. There is no swelling, warmth, erythema. Active full range of motion. No tenderness to palpation. Normal distal pulses. Skin is warm and dry. No focal neurologic deficit. Remainder of exam is unremarkable. Emergency Department Course and Treatment: Patient is advised to use warm compresses. Advised to follow-up with primary care physician. Advised return to ED for worsening complaints. Disposition: Discharge home Impression: Left arm pain This note was generated with [employer] dictation software. It may contain incorrect words, spelling, and punctuation that were not noted in review of the chart prior to signing ED Disposition - Plan for ED Patient: Instructions: THROMBOPHLEBITIS, Superficial Referrals: Ar Mckeon MD [Primary Care Provider] -
[2019-08-01] MEDS: Acetaminophen 500 MG Tablet 1000 MG PO (15:28)
[2019-08-01 15:34] VITALS: BP 119/90; PULSE 85; RESP 18; O2SAT 92
== END 2019-08-01 15:35 | disposition home or self-care (01) ==
PROVIDERS: Emergency Provider Emergency Medicine; Family Provider Family Medicine; PCP Family Medicine
DX: M79.602 Pain in left arm (principal); I48.91 Unspecified atrial fibrillation; I25.10 Atherosclerotic heart disease of native coronary artery without angina pectoris; I47.1 Supraventricular tachycardia; I10 Essential (primary) hypertension; K21.9 Gastro-esophageal reflux disease without esophagitis; Z79.01 Long term (current) use of anticoagulants; Z79.899 Other long term (current) drug therapy
CPT/HCPCS: 99283

== ENCOUNTER 2019-08-04 09:21 | Emergency (ER) | payer MEDICARE, SELFPAY ==
[2019-08-04 09:22] VITALS: BP 145/100; PULSE 73; RESP 22; TEMP 36.5; O2SAT 98; BMI 32.3
--- NOTE | 2019-08-04 09:35 | EKG12_ITS ---
Test Reason : CP Blood Pressure : / mmHG Vent. Rate : 078 BPM Atrial Rate : 078 BPM P-R Int : 172 ms QRS Dur : 084 ms QT Int : 382 ms P-R-T Axes : 010 006 024 degrees QTc Int : 435 ms Normal sinus rhythm Normal ECG Confirmed by ATTILA OLIVA ([id number]), managing editor CRISTIAN KAUR ([id number] on 08/07/2019 10:19:09 AM Referred By: DC Confirmed By:ATTILA OLIVA
--- NOTE | 2019-08-04 09:35 | RAD_ITS ---
STUDY: X-RAY CHEST REASON FOR EXAM: Male, 49 years old. Sudden onset of chest pain. TECHNIQUE: Single AP portable view of the chest. COMPARISON: Comparison is made with prior examination dated June 24, 2019. FINDINGS: EKG electrodes are seen. Stable mild increased markings at the left lung base suggestive of linear scarring. There is no demonstrated pleural abnormality. Normal size heart. Stable prominence of the right paratracheal region. Normal visualized pulmonary arteries. Normal visualized aortic arch and descending thoracic aorta. Normal visualized thoracic spine. Normal visualized ribs, clavicles, and shoulders. There is no demonstrated abnormality of the visualized soft tissue structures of the upper abdomen. RAD/Chest 1 View (Portable) IMPRESSION: Stable mild increased markings at the left lung base suggestive of left basilar atelectasis. Stable prominence of the right paratracheal region. Electronically Signed: Pablito Young, at 10:15 EDT , Service support ,
[2019-08-04 09:48] VITALS: O2SAT 98
[2019-08-04 09:48] LABS: Absolute Lymphocyte Count 1.76 X10^3/uL (0.83-4.51); Absolute Neutrophil Count 4.3 X10^3/uL (2.0-7.7); Basophil# 0.06 X10^3/uL; Basophil% 0.9 % (0-1); Eosinophil# 0.12 X10^3/uL; Eosinophils% 1.7 % (0-5); Hematocrit 50.6 % (40-54); Hemoglobin 16.7 g/dL (13.0-16.5); Lymphocyte # 1.76 X10^3/ul (4.0); Lymphocyte % 25.5 % (19-41); Mean Corpuscular Hgb 28.9 pg (27.0-32.0); Mean Corpuscular Volume 87.5 fL (80-94); Monocyte% 8.7 % (0-10); NRBC Flagged by Analyzer 0 % (0-5); Neutrophil # 4.34 X10^3/uL (2.7-7.7); Neutrophil % 62.9 % (47-70); Platelet Count 272 K/mm3 (150-450); RBC Distribution Width CV 12.9 % (11.6-14.6); RBC Distribution Width SD 40.8 fl (35.1-43.9); Red Blood Count 5.78 M/mm3 (4.6-6.2); White Blood Count 6.9 K/mm3 (4.4-11.0)
[2019-08-04] MEDS: Ondansetron 4 MG/2 ML Vial IV (09:48)
[2019-08-04] MEDS: Morphine 4 MG/ML Syringe IV (09:48)
[2019-08-04] MEDS: 0.9% Normal Saline 1,000 ML 150 ML IV (09:49)
--- NOTE | 2019-08-04 10:01 | ED.DCSUM_ITS ---
- ER Visit Summary Date of Service: 08/04/19 Chief Complaint: [Chest pain] History of Present Illness: The patient is a 49 M [presents to the emergency department with complaint of chest pain that started about 1 hour ago. Patient states he was watching television when he had sudden onset of pain in the center of his chest that radiated straight up straight through to his back. Patient describes the pain as sharp. Patient states the pain is severe. Patient presents via EMS for evaluation. Patient has had multiple visits for similar complaints. Patient was admitted recently for the same complaint and had a cardiac rule out. Patient's last cardiac catheterization was in January at an outlying facility and he did not require any type of intervention. Within the last month he has had at least 2 CTAs of the chest to evaluate for a thoracic aneurysm that is known and is currently being followed. She is on Eliquis for history of paroxysmal A. fib and tells me that he has a planned ablation in about a month. Patient has already had an ablation. Patient has had multiple cardioversions for his A. fib. Patient also with history of anxiety. Patient has history of hypertension, high cholesterol, SVT, anxiety, GERD, and A. fib.] Physical Examination: [HEENT-PERRLA, EOMI. Cranial nerves II through XII grossly intact. TMs clear. Mucous membranes moist. No adenopathy. Cardiovascular-regular rate and rhythm without murmur or ectopy Lungs-clear to auscultation, chest wall stable without crepitus or subcu emphysema Abdomen-normoactive bowel sounds, soft, nontender, no rebound or rigidity, no peritoneal signs. Extremities-intact ?4, normal range of motion, normal pulses, atraumatic] Test Results: [EKG obtained arrival shows sinus rhythm with a ventricular rate of 70 bpm with no acute segment changes. CBC with it was normal. Chemistries unremarkable. Troponin is less than 0.15. LFTs were normal. Lipase was normal. Chest x-ray showed stable changes. Repeat troponin III hours after the first was normal.] Emergency Department Course and Treatment: [Initially medicated with morphine and Zofran given a milligram of Ativan. Patient was then given another half a milligram of Dilaudid.] Treatment Plan: [I do not feel his pain is cardiac in nature. Patient also has had several CT scans in the last month of his chest that do not feel his exam and history consistent with dissection or PE. Patient had recent admission for his chest pain has ruled out he had a recent heart catheterization and stress test. She will be given a prescription for a few Percocet for pain. Advised to follow with his primary care physician in 3 to 5 days.] Disposition: [Discharged home in stable condition] Impression: [Chest pain-etiology uncertain] This note was generated with [employer] dictation software. It may contain incorrect words, spelling, and punctuation that were not noted in review of the chart prior to signing ED Disposition - Plan for ED Patient: Referrals: Ar Mckeon MD [Primary Care Provider] -
[2019-08-04 10:02] LABS: AST(SGOT) 19 U/L (15-37); Alanine Aminotransfer ALT/SGPT 31 U/L (16-61); Albumin, Serum 3.7 g/dL (3.2-5.0); Alkaline Phosphatase 117 U/L (45-117); Anion Gap 6 (5-15); BUN 16 mg/dL (7-18); BUN/Creat Ratio 18.7 RATIO (10-20); Bilirubin, Direct 0.07 mg/dL (0.00-0.30); Calcium,Total 8.8 mg/dL (8.5-10.1); Chloride 111 mmol/L (98-107); Creatinine, Serum 0.86 mg/dL (0.70-1.30); EST Glomerular Filtration Rate 101 mL/min (>60); Est Glom Filt Rate - Afr Amer 122 mL/min (>60); Estimated Creatinine Clearance 110.66 ml/min; Globulin 3.6 g/dL (2.2-4.2); Glucose 84 mg/dL (74-106); Lipase 200 U/L (73-393); Potassium 4.1 mmol/L (3.5-5.1); Protein, Total 7.3 g/dL (6.4-8.2); Sodium Level 142 mmol/L (136-145)
[2019-08-04] MEDS: LORazepam 2 MG/ML Syringe 1 MG IV (10:15)
[2019-08-04] MEDS: HYDROmorphone 0.5 MG/0.5 ML SYRINGE IV (11:28)
[2019-08-04 11:29] VITALS: BP 126/89; PULSE 74; RESP 17; O2SAT 94
[2019-08-04 13:28] VITALS: BP 140/106; PULSE 75; RESP 16; O2SAT 97
--- NOTE | 2019-08-04 14:28 | ED.DEP ---
ED Disposition - Plan for ED Patient: Instructions: CHEST PAIN, Uncertain Cause Prescriptions: Oxycodone HCl/Acetaminophen [Percocet 5/325] 1 tab PO Q6H PRN PRN 3 Days #12 tab PRN Reason: Pain Prescription Printed Referrals: Ar Mckeon MD [Primary Care Provider] - 3-5 Days
== END 2019-08-04 14:46 | disposition home or self-care (01) ==
LOC: ED 09:48
PROVIDERS: Emergency Provider Emergency Medicine; Family Provider Family Medicine; PCP Family Medicine
DX: R07.9 Chest pain, unspecified (principal); I48.0 Paroxysmal atrial fibrillation; I47.1 Supraventricular tachycardia; I10 Essential (primary) hypertension; E78.00 Pure hypercholesterolemia, unspecified; F41.9 Anxiety disorder, unspecified; K21.9 Gastro-esophageal reflux disease without esophagitis; Z79.01 Long term (current) use of anticoagulants; Z79.899 Other long term (current) drug therapy
CPT/HCPCS: 71045; 80048; 80076; 83690; 84484; 85025; 93005; 96361; 96374; 96375; 99285; J7030; A4216; J2405

== ENCOUNTER 2019-08-10 19:10 | Emergency (ER) | payer MEDICARE, SELFPAY ==
[2019-08-10 19:12] VITALS: BP 140/104; PULSE 104; RESP 20; TEMP 36.1; O2SAT 100; BMI 31.4
--- NOTE | 2019-08-10 19:15 | EKG12_ITS ---
Test Reason : CP Blood Pressure : / mmHG Vent. Rate : 102 BPM Atrial Rate : 102 BPM P-R Int : 168 ms QRS Dur : 078 ms QT Int : 340 ms P-R-T Axes : 026 014 017 degrees QTc Int : 443 ms Sinus tachycardia Otherwise normal ECG Confirmed by NABILA CONNOR, JEANCARLOS ([id number]), film editor supervisor RICCO LUZ ([id number]) on 08/14/2019 10:37:56 AM Referred By: DIPAK Confirmed By:JEANCARLOS DAHL MD
--- NOTE | 2019-08-10 19:15 | RAD_ITS ---
STUDY: X-RAY CHEST REASON FOR EXAM: Male, 49 years old. Chest pain TECHNIQUE: Single AP portable view of the chest. COMPARISON: Prior study of 08/04/2019 FINDINGS: The lungs are clear and expanded. There is no demonstrated pleural abnormality. Normal size heart. Slight right paratracheal prominence is noted, stable in the interval. Normal visualized pulmonary arteries. Normal visualized aortic arch and descending thoracic aorta. Normal visualized thoracic spine. Normal visualized ribs, clavicles, and shoulders. There is no demonstrated abnormality of the visualized soft tissue structures of the upper abdomen. RAD/Chest 1 View (Portable) IMPRESSION: Slight prominence of the right paratracheal region stable in the interval. No acute cardiopulmonary disease process is seen. Electronically Signed: Dennis Loo MD at 19:56 EDT , Service support ,
--- NOTE | 2019-08-10 19:26 | ED.DCSUM_ITS ---
History of Present Illness Chief Complaint: Chest Pain Informant: Patient Onset: Today Context: Gradual Onset Timing: Continuous Current Severity: Moderate Maximum Severity: Moderate Narrative: The patient presents to the emergency department left-sided chest pain patient has a history of atrial flutter. He underwent cardiac ablation on Saturday at [place]. He states he has been having some postprocedure pain but, today got worse. Denies any fevers. He denies any cough. Worse. Prior similar symptoms: No Recent Illness/Hospitalization: No Past Medical History - Allergies and Home Meds Allergies/Adverse Reactions: Allergies clonidine Allergy (Intermediate, Verified 08/10/19 19:11) rash clindamycin Allergy (Verified 08/10/19 19:11) Rash doxycycline Allergy (Verified 08/10/19 19:11) Rash levofloxacin [From Levaquin] Allergy (Verified 08/10/19 19:11) Rash Penicillins Allergy (Verified 08/10/19 19:11) Hives bupropion Adverse Reaction (Intermediate, Verified 08/10/19 19:11) vomiting celecoxib [From Celebrex] Adverse Reaction (Intermediate, Verified 08/10/19 19:11) vomiting eletriptan Adverse Reaction (Intermediate, Verified 08/10/19 19:11) Vomiting topiramate [From Topamax] Adverse Reaction (Intermediate, Verified 08/10/19 19:11) vomiting hydrocodone bitartrate [From Vicodin] Adverse Reaction (Verified 08/10/19 19:11) Nausea ketorolac [From Toradol] Adverse Reaction (Verified 08/10/19 19:11) PT ON BLOOD THINNERS, PER DR VICTOR HAVE TORADOL Primary Care Physician: Ar Mckeon MD [Primary Care Provider] - Surgical History: - - Left heart catheterization 1 year ago and ablation Smoking Status: Never smoker - Family History Maternal Family History: Family History (Last Reviewed 07/30/19 @ 12:47 by Cory Lomas MD) Brother Hypertension Mother Heart disease Colon cancer Sister Diabetes Sister Diabetes Sister Diabetes Family History: Reports: - - Maternal family history of DM, Colon CA, Valvular Heart Disease. Paternal Family History: Family History (Last Reviewed 07/30/19 @ 12:47 by Cory Lomas MD) Brother Hypertension Mother Heart disease Colon cancer Sister Diabetes Sister Diabetes Sister Diabetes Family History: Reports: - - Paternal family history of skin CA. Physical Exam Vital Signs/Narrative: Vital Signs Temp Pulse Resp BP Pulse Ox 08/10/19 19:12 96.9 F L 104 H 20 H 140/104 H 100 Diagnostic/Tx/Re-eval Chest X-Ray - ED: 1 View, Normal, Heart, Lungs, Mediastinum Clinical Impression(s) from Imaging Studies Chest X-Ray 08/10/19 19:15 IMPRESSION: Slight prominence of the right paratracheal region stable in the interval. No acute cardiopulmonary disease process is seen. Electronically Signed: Dennis Loo MD at 19:56 EDT , Service support , Abnormal Lab Results 08/10/19 08/10/19 19:28 19:28 WBC 6.3 RBC 5.54 Hgb 15.9 Hct 47.2 MCV 85.2 MCH 28.7 MCHC 33.7 RDW Std Deviation 39.1 RDW Coeff of Michele 12.7 Plt Count 281 MPV 9.0 Immature Gran % (Auto) 0.200 Neut % (Auto) 50.1 Lymph % (Auto) 38.0 [place] % (Auto) 9.0 Eos % (Auto) 1.9 Baso % (Auto) 0.8 Absolute Neuts (auto) 3.2 Absolute Lymphs (auto) 2.40 Nucleated RBC % 0 Sodium 140 Potassium 3.2 L Chloride 106 Carbon Dioxide 26.0 Anion Gap 8 BUN 15 Creatinine 0.84 Estim Creat Clear Calc 113.30 Est GFR (MDRD) Af Amer 124 Est GFR (MDRD) Non-Af 103 BUN/Creatinine Ratio 17.8 Glucose 101 Calcium 9.5 Troponin I 0.201 H - Rhythm Strip Rhythm Strip: Sinus Rhythm Rate: 90 Ectopy: None - EKG Initial EKG Interpretation: Sinus Rhythm, No Acute Injury Pattern Prior: Unchanged - Medical Decision Making Patient presents with chest pain after a cardiac ablation. He has no dyspnea. He has no hypoxia or tachypnea. EKG was obtained which showed sinus rhythm without acute ischemia. It was unchanged from prior. Patient was treated with analgesics with improvement of his pain. His troponin was at the indeterminate range of 0.2. However, the patient has no documented history of coronary vascular disease. I did discuss this with Dr. Asif, senior safety management consultant on-call for the patient's senior safety management consultant, Dr. Marks. The patient's EKG is unchanged and he has no documented history of coronary vascular disease along with his recent ablation, he is comfortable with the plan for outpatient follow-up. The patient feels improved. He will be discharged home. Impression 1. Chest pain status post ablation ED Disposition - Plan for ED Patient: Instructions: CHEST PAIN, Uncertain Cause Referrals: Ar Mckeon MD [Primary Care Provider] -
[2019-08-10] MEDS: LORazepam 2 MG/ML Syringe 1 MG IV (19:41)
[2019-08-10 19:42] LABS: Absolute Neutrophil Count 3.2 X10^3/uL (2.0-7.7); Basophil# 0.05 X10^3/uL; Basophil% 0.8 % (0-1); Eosinophil# 0.12 X10^3/uL; Eosinophils% 1.9 % (0-5); Hematocrit 47.2 % (40-54); Hemoglobin 15.9 g/dL (13.0-16.5); Mean Corp Hgb Conc 33.7 g/dL (32-36); Mean Corpuscular Hgb 28.7 pg (27.0-32.0); Mean Corpuscular Volume 85.2 fL (80-94); Monocyte# 0.57 X10^3/uL; NRBC Flagged by Analyzer 0 % (0-5); Neutrophil # 3.16 X10^3/uL (2.7-7.7); Neutrophil % 50.1 % (47-70); Platelet Count 281 K/mm3 (150-450); RBC Distribution Width CV 12.7 % (11.6-14.6); RBC Distribution Width SD 39.1 fl (35.1-43.9); Red Blood Count 5.54 M/mm3 (4.6-6.2); White Blood Count 6.3 K/mm3 (4.4-11.0)
[2019-08-10] MEDS: Morphine 4 MG/ML Syringe IV (19:42)
[2019-08-10 19:56] LABS: Anion Gap 8 (5-15); BUN 15 mg/dL (7-18); BUN/Creat Ratio 17.8 RATIO (10-20); Calcium,Total 9.5 mg/dL (8.5-10.1); Chloride 106 mmol/L (98-107); Creatinine, Serum 0.84 mg/dL (0.70-1.30); EST Glomerular Filtration Rate 103 mL/min (>60); Est Glom Filt Rate - Afr Amer 124 mL/min (>60); Glucose 101 mg/dL (74-106); Potassium 3.2 mmol/L (3.5-5.1); Sodium Level 140 mmol/L (136-145)
[2019-08-10 20:38] VITALS: BP 127/93; PULSE 94; RESP 16; O2SAT 96
[2019-08-10 21:03] VITALS: BP 132/90; PULSE 92; RESP 14; O2SAT 94
[2019-08-10 21:11] VITALS: BP 136/80; PULSE 98; RESP 16; O2SAT 95
[2019-08-10] MEDS: HYDROmorphone 0.5 MG/0.5 ML SYRINGE IV (21:19)
== END 2019-08-10 21:24 | disposition home or self-care (01) ==
LOC: ED 19:37
PROVIDERS: Emergency Provider Emergency Medicine; Family Provider Family Medicine; PCP Family Medicine
DX: R07.89 Other chest pain (principal); G89.18 Other acute postprocedural pain; I48.92 Unspecified atrial flutter; Z79.01 Long term (current) use of anticoagulants; Z79.899 Other long term (current) drug therapy
CPT/HCPCS: 71045; 80048; 84484; 85025; 93005; 96374; 96375; 99284; A4216

== ENCOUNTER 2019-08-15 19:51 | Emergency (ER) | payer MEDICARE, SELFPAY ==
[2019-08-15 19:52] VITALS: BP 136/96; PULSE 90; RESP 28; TEMP 36.6; O2SAT 98; BMI 32.3
[2019-08-15 19:55] VITALS: BMI 32.3
--- NOTE | 2019-08-15 19:55 | ED.RN ---
patient now complaining of chest pain midsternal crushing pain ekg ordered at this time
[2019-08-15 20:06] LABS: Bedside Glucose 94 mg/dL (70-110)
--- NOTE | 2019-08-15 20:07 | EKG12_ITS ---
Test Reason : CP Blood Pressure : / mmHG Vent. Rate : 091 BPM Atrial Rate : 091 BPM P-R Int : 174 ms QRS Dur : 080 ms QT Int : 354 ms P-R-T Axes : 010 001 003 degrees QTc Int : 435 ms Normal sinus rhythm Minimal voltage criteria for LVH, may be normal variant Borderline ECG Confirmed by NABILA CONNOR, JEANCARLOS ([id number]), city editor LINDA MORALES ([id number]) on 08/18/2019 11:23:49 AM Referred By: CANDACE Confirmed By:JEANCARLOS DAHL MD
--- NOTE | 2019-08-15 20:07 | CT_ITS ---
STUDY: CT BRAIN WITHOUT CONTRAST REASON FOR EXAM: Male, 49 years old. Headache, blurred vision, shortness of breath RADIATION DOSAGE (If Supplied By Facility): CTDIvol = ( 44.99 ) mGy, DLP = ( 829.85 ) mGycm TECHNIQUE: Transaxial CT imaging of the brain was performed without administration of intravenous contrast material. Individualized dose optimization techniques were used for this CT. COMPARISON: Prior study of 07/20/2019 FINDINGS: Normal soft tissue structures. Normal calvarium. Normal size ventricles and extra-axial spaces for the patient's age. Normal white matter tracts of the cerebral hemispheres. Normal basal ganglia and thalami. Normal brainstem. Normal cerebellum. There is no intracranial hemorrhage. There are no findings of an acute ischemic infarction. There is mild mucosal thickening of the right maxillary sinus. CT/Brain/Head without Contrast IMPRESSION: Mild chronic right maxillary sinusitis. Electronically Signed: Dennis Loo MD at 20:41 EDT , Service support ,
[2019-08-15 20:19] LABS: Hematocrit 46.6 % (40-54); Hemoglobin 15.7 g/dL (13.0-16.5); Mean Corp Hgb Conc 33.7 g/dL (32-36); Mean Corpuscular Hgb 28.7 pg (27.0-32.0); Mean Corpuscular Volume 85.2 fL (80-94); Mean Platelet Vol. 9.2 fl (6.2-12.0); Platelet Count 314 K/mm3 (150-450); RBC Distribution Width CV 12.8 % (11.6-14.6); RBC Distribution Width SD 39.7 fl (35.1-43.9); Red Blood Count 5.47 M/mm3 (4.6-6.2); White Blood Count 6.8 K/mm3 (4.4-11.0)
--- NOTE | 2019-08-15 20:22 | RAD_ITS ---
STUDY: X-RAY CHEST REASON FOR EXAM: Male, 49 years old. Shortness of breath, left-sided weakness times one hour TECHNIQUE: Single AP portable view of the chest. COMPARISON: Prior study of 08/10/2019 FINDINGS: electronic device monitor leads are present. The lungs are clear and expanded. There is no demonstrated pleural abnormality. There is mild cardiac enlargement. There is again demonstrated slight prominence of the right mediastinum. Normal visualized pulmonary arteries. Normal visualized aortic arch and descending thoracic aorta. Normal visualized thoracic spine. Normal visualized ribs, clavicles, and shoulders. There is no demonstrated abnormality of the visualized soft tissue structures of the upper abdomen. RAD/Chest 1 View (Portable) IMPRESSION: Mild cardiomegaly. Slight prominence of the right mediastinum. No acute cardiopulmonary disease process is seen. Findings are similar to the previous study. Electronically Signed: Dennis Loo MD at 20:44 EDT , Service support ,
--- NOTE | 2019-08-15 20:31 | ED.RN ---
pt calls out complaining of increased CP. Dr Byrd notified and orders repeat EKG.
[2019-08-15 20:34] LABS: Anion Gap 4 (5-15); BUN 18 mg/dL (7-18); BUN/Creat Ratio 16.7 RATIO (10-20); Calcium,Total 8.8 mg/dL (8.5-10.1); Chloride 107 mmol/L (98-107); Creatinine, Serum 1.08 mg/dL (0.70-1.30); EST Glomerular Filtration Rate 77 mL/min (>60); Est Glom Filt Rate - Afr Amer 93 mL/min (>60); Estimated Creatinine Clearance 88.12 ml/min; Glucose 99 mg/dL (74-106); Sodium Level 140 mmol/L (136-145)
--- NOTE | 2019-08-15 20:34 | EKG12_ITS ---
Test Reason : WORSENING CP Blood Pressure : / mmHG Vent. Rate : 096 BPM Atrial Rate : 096 BPM P-R Int : 168 ms QRS Dur : 082 ms QT Int : 352 ms P-R-T Axes : 007 004 012 degrees QTc Int : 444 ms Normal sinus rhythm Minimal voltage criteria for LVH, may be normal variant Borderline ECG Confirmed by NABILA CONNOR, JEANCARLOS ([id number]), marketing editor LINDA MORALES ([id number]) on 08/18/2019 11:23:35 AM Referred By: CANDACE Confirmed By:JEANCARLOS DAHL MD
--- NOTE | 2019-08-15 21:37 | ED.VISSUMM ---
- ER Visit Summary Date of Service: 08/15/19 Chief Complaint: Dizziness History of Present Illness: The patient is a 49 M history of prior A. fib, TIA, hypertension, reported AR and thoracic aneurysm. Also history of kidney stones. Patient presents concerned he might be having a TIA. Complaining of dizziness. He denies any headache. No falls or head trauma. No trouble using his arms or legs. Patient is well-known to this emergency department has had extensive work-ups in the last several months. Physical Examination: Middle-aged male no acute distress vital signs stable afebrile. HEENT exam unremarkable. Round react light. Extra motions are intact. No facial droop. Normal speech. Neck nontender. Lungs clear to auscultation bilaterally. Heart regular rate and rhythm rate about 90 no murmur. Abdomen soft nontender normal bowel sounds no peritoneal signs. Extremities moves all 4. Neurovascular intact. 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 Dorsi plantarflexion intact. Neurologic exam is normal. His NIH score is 0. No facial droop. Normal speech. Fingertip to nose within normal limits normal dorsi plantarflexion. He can lift and raise either upper or lower extremity with no drift. Test Results: CBC normal white count of 6. Hemoglobin 15. Chemistries unremarkable glucose of 99. Normal creatinine gap. EKG sinus rhythm rate of 91 no acute signs of AR or ischemia no change. A repeat EKG was performed again a sinus rhythm rate of 96 with no acute abnormality. Chest x-ray shows normal cardiac silhouette borderline cardiomegaly at the worst. Prominent mediastinum. Unchanged from prior chest x-ray. CT brain no acute abnormality reviewed by me read by the radiologist. Emergency Department Course and Treatment: Repeat exam patient is doing well at 2138. Exam remains normal. Will be discharged to home. Treatment Plan: Outpatient follow-up with primary care physician. Return if worse. Disposition: Discharge Impression: Dizziness uncertain This note was generated with [employer] software. It may contain incorrect words, spelling, and punctuation that were not noted in review of the chart prior to signing ED Disposition - Plan for ED Patient: Referrals: Ar Mckeon MD [Primary Care Provider] -
--- NOTE | 2019-08-15 21:41 | ED.DEP ---
ED Disposition - Plan for ED Patient: Disposition: Home or Assisted Living Instructions: DIZZINESS, Unk Cause Referrals: Ar Mckeon MD [Primary Care Provider] - As soon as possible Additional Instructions: Follow-up with your doctor. Return to ER if you are feeling worse.
[2019-08-15 21:47] VITALS: BP 125/94; PULSE 92; RESP 18; O2SAT 96
== END 2019-08-15 21:51 | disposition home or self-care (01) ==
PROVIDERS: Emergency Provider Emergency Medicine; Family Provider Family Medicine; PCP Family Medicine
DX: R42 Dizziness and giddiness (principal); I48.91 Unspecified atrial fibrillation; I25.2 Old myocardial infarction; I10 Essential (primary) hypertension; Z79.01 Long term (current) use of anticoagulants; Z79.899 Other long term (current) drug therapy; Z86.73 Personal history of transient ischemic attack (TIA), and cerebral infarction without residual deficits
CPT/HCPCS: 70450; 71045; 80048; 82962; 85027; 93005; 99285; A4216

== ENCOUNTER 2019-08-20 20:02 | Emergency (ER) | payer MEDICARE, SELFPAY ==
[2019-08-20 20:03] VITALS: BP 140/89; PULSE 89; RESP 15; TEMP 36.4; O2SAT 98; BMI 32.3
[2019-08-20 20:23] LABS: Bacteria 0 SEEN /hpf (None Seen); Color, Urine Yellow (Yellow); Glucose, Dipstick Normal (Normal); Ketone-Dipstick Negative (Negative); Leukocyte Esterase-Dipstick Negative /ul (Negative); Mucous, Urine 0 SEEN /hpf (<or=2+); Nitrite-Dipstick Negative (Negative); Occult Blood-Urine Negative /ul (Negative); Protein-Dipstick Negative (Negative); Red Blood Cells-Urine 0 SEEN /hpf (0-5); Specific Gravity, Urine 1.025 (1.002-1.030); Squamous Epithelial Cells - UA 0 SEEN /hpf (0-5); Urine Bilirubin Dipstick Negative (Negative); Urine Clarity Clear (Clear); Urine Urobilinogen Normal (Normal); White Blood Cells 0 SEEN /hpf (0-5)
[2019-08-20 20:48] LABS: Absolute Lymphocyte Count 2.58 X10^3/uL (0.83-4.51); Absolute Neutrophil Count 4.2 X10^3/uL (2.0-7.7); Basophil# 0.05 X10^3/uL; Basophil% 0.7 % (0-1); Eosinophil# 0.13 X10^3/uL; Eosinophils% 1.7 % (0-5); Hematocrit 47.1 % (40-54); Hemoglobin 15.8 g/dL (13.0-16.5); Lymphocyte # 2.58 X10^3/ul (4.0); Lymphocyte % 33.6 % (19-41); Mean Corp Hgb Conc 33.5 g/dL (32-36); Mean Corpuscular Hgb 28.5 pg (27.0-32.0); Mean Platelet Vol. 8.7 fl (6.2-12.0); Monocyte# 0.69 X10^3/uL; NRBC Flagged by Analyzer 0 % (0-5); Neutrophil # 4.21 X10^3/uL (2.7-7.7); Neutrophil % 54.7 % (47-70); Platelet Count 336 K/mm3 (150-450); RBC Distribution Width CV 12.7 % (11.6-14.6); RBC Distribution Width SD 38.7 fl (35.1-43.9); Red Blood Count 5.54 M/mm3 (4.6-6.2); White Blood Count 7.7 K/mm3 (4.4-11.0)
[2019-08-20 21:07] LABS: Anion Gap 9 (5-15); BUN 17 mg/dL (7-18); Calcium,Total 9.5 mg/dL (8.5-10.1); Chloride 108 mmol/L (98-107); Creatinine, Serum 0.85 mg/dL (0.70-1.30); EST Glomerular Filtration Rate 102 mL/min (>60); Est Glom Filt Rate - Afr Amer 123 mL/min (>60); Estimated Creatinine Clearance 111.97 ml/min; Glucose 79 mg/dL (74-106); Potassium 3.6 mmol/L (3.5-5.1); Sodium Level 142 mmol/L (136-145)
--- NOTE | 2019-08-20 21:38 | CT_ITS ---
STUDY: CT ABDOMEN AND PELVIS WITHOUT CONTRAST REASON FOR EXAM: Male, 49 years old. Right flank pain RADIATION DOSAGE (If Supplied By Facility): CTDIvol = ( 20.20 ) mGy, DLP = ( 1181.05 ) mGycm TECHNIQUE: Transaxial images were obtained from the dome of the diaphragm to the symphysis pubis without oral contrast, and without intravenous contrast. Sagittal and coronal images were reconstructed. Individualized dose optimization techniques were used for this CT. COMPARISON: July 18, 2019 FINDINGS: There is minor interstitial thickening in the lower lobes.. The visualized portions of the heart are within normal limits. Normal liver. Normal gallbladder and extrahepatic biliary system. Normal spleen. Normal pancreas. Normal bilateral adrenal glands. There is a tiny nonobstructing renal calculus bilaterally. No evidence for hydronephrosis or ureteral calculus. There is no focal renal mass.. Normal visualized stomach. Normal small intestine. Scattered diverticular changes of the colon without evidence for acute diverticulitis The appendix is visualized and appears normal. Atherosclerotic changes of the aorta without evidence for aneurysm. Normal inferior vena cava. Normal retroperitoneum. Normal urinary bladder. Small fat-containing left inguinal hernia . Lumbar spine demonstrates mild spondylosis. Postop changes status post bilateral laminectomy and posterior fusion at L4-5. CT/Abdomen/Pelvis without Cont IMPRESSION: Minor diverticular changes of the colon without evidence for acute diverticulitis. Bilateral nephrolithiasis without evidence for hydronephrosis or ureteral calculus. Normal appendix Electronically Signed: Chavez Gil MD at 22:09 EDT , Service support ,
[2019-08-20] MEDS: Ondansetron 4 MG/2 ML Vial IV ×2 (21:43→23:31)
[2019-08-20] MEDS: HYDROmorphone 1 MG/ML Syringe IV (21:43)
--- NOTE | 2019-08-20 22:26 | US_ITS ---
HISTORY: RT FLANK PAIN THAT RADIATES to right groin EXAMINATION: US Scrotum (Contents) TECHNIQUE: Realtime ultrasound of the testicles was performed with grayscale, Color Doppler and spectral Doppler analysis. COMPARISON: CT abdomen and pelvis 08/20/2019 FINDINGS: Both testicles show normal size and echogenicity. Bilateral testicular blood flow. The right testicle measures 4.9 x 3.5 x 2.4 cm the left testicle measures 4.8 x 3.1 x 2.4 cm. No epididymal enlargement. Left hemiscrotal small to moderate hydrocele which is complex with low level internal echoes. No hydrocele on the right. No additional findings are noted. US/Testicular with Arterial Flow IMPRESSION: 1. Small to moderate left hydrocele which is complex. Otherwise negative exam. 2. Normal testicles. No sonographic findings of epididymitis. at 2311 Reported and signed by: Isac Siddiqui MD Electronically Signed: Isac Siddiqui, at 23:10 EDT Tel , Service support ,
[2019-08-20] MEDS: HYDROmorphone 0.5 MG/0.5 ML SYRINGE IV (23:31)
[2019-08-20 23:33] VITALS: BP 146/82; PULSE 91; RESP 17; O2SAT 97
--- NOTE | 2019-08-20 23:51 | ED.DCSUM_ITS ---
- ER Visit Summary Date of Service: 08/20/19 Chief Complaint: Right flank pain History of Present Illness: The patient is a 49 M presenting with right flank pain. Patient states this started 2 days ago. It has been intermittent. It worsened today. He tried Tylenol at home. He states this feels like his previous kidney stones. He has nausea with no vomiting. Denies fever. Denies other complaints. Physical Examination: Vitals are stable. Patient is afebrile. Alert no acute distress. HEENT exam is unremarkable. Neck is supple. Lungs are clear and equal bilaterally. Heart is regular rate and rhythm. Abdomen is soft nontender nondistended. No guarding or rebound Back right CVA tenderness mild right testicular tenderness Extremities are unremarkable. Skin is warm and dry. Remainder of exam is unremarkable. Emergency Department Course and Treatment: Patient was given Dilaudid, Zofran IV. CBC, chemistries unremarkable. Urinalysis unremarkable. CT abdomen pelvis shows minor diverticular changes of the colon without evidence for acute diverticulitis. Bilateral nephrolithiasis without evidence for hydronephrosis or ureteral calculus. Normal appendix. Testicular ultrasound shows small to moderate left hydrocele which is complex. Otherwise negative exam. Normal testicles. No sonographic findings of epididymitis. On reevaluation, patient is resting comfortably. He is advised to follow-up with his primary care physician. Advised return to ED for worsening complaints. Disposition: Discharge home Impression: Right flank pain This note was generated with [employer] dictation software. It may contain incorrect words, spelling, and punctuation that were not noted in review of the chart prior to signing ED Disposition - Plan for ED Patient: Instructions: FLANK PAIN, Uncertain Cause Prescriptions: Oxycodone HCl/Acetaminophen [Percocet 5/325] 1 tab PO Q6H PRN PRN 3 Days #6 tab PRN Reason: Pain Prescription Printed Referrals: Ar Mckeon MD [Primary Care Provider] -
--- NOTE | 2019-08-21 | ED.DEP ---
ED Disposition - Plan for ED Patient: Instructions: FLANK PAIN, Uncertain Cause Prescriptions: Oxycodone HCl/Acetaminophen [Percocet 5/325] 1 tablet PO Q6H PRN PRN 3 Days #6 tablet PRN Reason: Pain Referrals: Ar Mckeon MD [Primary Care Provider] -
[2019-08-21 00:19] VITALS: BP 132/67; PULSE 87; RESP 19; O2SAT 96
== END 2019-08-21 00:19 | disposition home or self-care (01) ==
PROVIDERS: Emergency Provider Emergency Medicine; Family Provider Family Medicine; PCP Family Medicine
DX: N20.0 Calculus of kidney (principal); Z87.442 Personal history of urinary calculi; N43.3 Hydrocele, unspecified; I10 Essential (primary) hypertension; I48.91 Unspecified atrial fibrillation; Z79.01 Long term (current) use of anticoagulants; Z79.899 Other long term (current) drug therapy
CPT/HCPCS: 74176; 76870; 80048; 81001; 85025; 93976; 96374; 96375; 96376; 99283; A4216; J2405

== ENCOUNTER 2019-08-23 19:46 | Emergency (ER) | payer MEDICARE, SELFPAY ==
[2019-08-23 19:47] VITALS: BP 154/98; PULSE 95; RESP 18; TEMP 36.8; O2SAT 100; BMI 32.1
[2019-08-23 20:00] VITALS: BP 131/105; PULSE 95; RESP 21
--- NOTE | 2019-08-23 20:10 | ED.RN ---
RN CALLED FOR EKG, PULLED OLD EKGS FOR
--- NOTE | 2019-08-23 20:44 | CT_ITS ---
STUDY: CT ABDOMEN AND PELVIS WITHOUT CONTRAST REASON FOR EXAM: Male, 49 years old. Back pain RADIATION DOSAGE (If Supplied By Facility): CTDIvol = ( 21.08 ) mGy, DLP = ( 2177.92 ) mGycm TECHNIQUE: Transaxial images were obtained from the dome of the diaphragm to the symphysis pubis without oral contrast, and without intravenous contrast. Sagittal and coronal images were reconstructed. Individualized dose optimization techniques were used for this CT. COMPARISON: None. FINDINGS: The visualized lung bases are unremarkable. The visualized portions of the heart are within normal limits. Liver is mildly fatty infiltrated without mass or bile duct dilatation. Normal gallbladder and extrahepatic biliary system. Normal spleen. Normal pancreas. Normal bilateral adrenal glands. There is multilobulated appearance to both kidneys. There is a tiny nonobstructing left renal calculus. No evidence for renal obstruction or ureteral calculus. There is no focal renal mass. Normal visualized stomach. Normal small intestine. Minor diverticular changes of the distal descending and sigmoid colon without evidence for acute diverticulitis. The appendix is visualized and appears normal. Minor atherosclerotic changes of the aorta without evidence for aneurysm periaortic leak or dissection.. Normal inferior vena cava. Normal retroperitoneum. Incompletely distended mildly thick-walled bladder.. There is mild scarring in the right inguinal region Moderate-sized left inguinal hernia noted. Postop change status post bilateral laminectomy and posterior fusion at L4-5 and bilateral laminectomy at L5-S1 CT/Abdomen/Pelvis W IV Cont ONLY IMPRESSION: Mild nonspecific fatty infiltration of the liver.. Left nephrolithiasis without evidence for hydronephrosis or ureteral calculus. No evidence for aortic aneurysm periaortic leak or dissection. Postsurgical changes in the lumbar spine at L4-5 and L5-S1 Other findings as above Electronically Signed: Chavez Gil MD at 22:27 EST , Service support ,
--- NOTE | 2019-08-23 20:44 | EKG12_ITS ---
Test Reason : CP Blood Pressure : / mmHG Vent. Rate : 094 BPM Atrial Rate : 094 BPM P-R Int : 174 ms QRS Dur : 080 ms QT Int : 358 ms P-R-T Axes : -13 000 004 degrees QTc Int : 447 ms Sinus rhythm with occasional Premature ventricular complexes Otherwise normal ECG Confirmed by INDER CONNOR, ASAEL ([id number]), editor publications LINDA MORALES ([id number]) on 08/26/2019 10:58:20 AM Referred By: MI Confirmed By:ASAEL LOVING MD
--- NOTE | 2019-08-23 20:45 | CT_ITS ---
STUDY: CTA CHEST REASON FOR EXAM: Male, 49 years old. Chest back and epigastric pain RADIATION DOSAGE (If Supplied By Facility): CTDIvol = ( 21.08 ) mGy, DLP = ( 2177.92 ) mGycm TECHNIQUE: The examination was performed with the intravenous administration of IV 100mL [id number]-[id number] 100ML. Post-processing of the angiographic images was performed, with multiplanar reformation and 3D reconstruction. Individualized dose optimization techniques were used for this CT. COMPARISON: None. FINDINGS: There is less than optimal enhancement of the pulmonary arteries due to bolus timing however there is no definitive evidence for pulmonary embolus. There is aneurysmal dilatation of the proximal ascending aorta measuring approximately 4.3 x 4.3 cm. There is no demonstrated aortic dissection. Normal heart and pericardium. Normal mediastinum. Normal hilar regions. Normal visualized trachea and bronchi. The lungs are well expanded. There is minimal subsegmental atelectasis in left lower lobe. No focal infiltration or pulmonary nodule Normal pleura. Normal chest wall structures. Normal osseous structures. Normal visualized upper abdomen. CT/CTA Chest W/WO Contrast IMPRESSION: Minimal subsegmental atelectasis in left lower lobe.. Ascending aortic aneurysm without evidence for dissection or periaortic leak. Less than optimal opacification of the pulmonary arteries due to delayed bolus technique but no definitive evidence for pulmonary embolus. If strong clinical suspicion for pulmonary embolus Doppler scan of the deep venous system of lower extremities and VQ scan would be helpful for further evaluation Electronically Signed: Chavez Gil MD at 21:59 EST , Service support ,
[2019-08-23 20:56] VITALS: BP 122/98; PULSE 93; RESP 17; O2SAT 97
[2019-08-23] MEDS: Ondansetron 4 MG/2 ML Vial IV (20:56)
[2019-08-23] MEDS: Morphine 4 MG/ML Syringe IV ×2 (20:56→22:53)
[2019-08-23] MEDS: 0.9% Normal Saline 1,000 ML 1000 ML IV (20:56)
[2019-08-23 20:59] LABS: Absolute Lymphocyte Count 1.92 X10^3/uL (0.83-4.51); Absolute Neutrophil Count 3.3 X10^3/uL (2.0-7.7); Basophil# 0.05 X10^3/uL; Basophil% 0.8 % (0-1); Eosinophil# 0.13 X10^3/uL; Eosinophils% 2.2 % (0-5); Hematocrit 45.5 % (40-54); Hemoglobin 15.5 g/dL (13.0-16.5); Lymphocyte # 1.92 X10^3/ul (4.0); Lymphocyte % 32.6 % (19-41); Mean Corp Hgb Conc 34.1 g/dL (32-36); Mean Corpuscular Hgb 29.2 pg (27.0-32.0); Mean Corpuscular Volume 85.8 fL (80-94); Mean Platelet Vol. 8.9 fl (6.2-12.0); Monocyte# 0.52 X10^3/uL; Monocyte% 8.8 % (0-10); NRBC Flagged by Analyzer 0 % (0-5); Neutrophil # 3.25 X10^3/uL (2.7-7.7); Neutrophil % 55.3 % (47-70); Platelet Count 329 K/mm3 (150-450); RBC Distribution Width CV 12.7 % (11.6-14.6); RBC Distribution Width SD 39.5 fl (35.1-43.9); White Blood Count 5.9 K/mm3 (4.4-11.0)
[2019-08-23 21:32] VITALS: BP 146/101; PULSE 83; RESP 21; O2SAT 98
--- NOTE | 2019-08-23 21:42 | ED.VISSUMM ---
- ER Visit Summary Date of Service: 08/23/19 Chief Complaint: Chest pain History of Present Illness: The patient is a 49 M who presents with chest pain that began approximately 45 minutes prior to arrival. Patient states he was having pain in his abdomen and into his back. Patient states the pain then went up into his chest. Patient describes the pain is sharp. Patient states pain is over the substernal area and radiates into his back. Patient states nothing makes it better or worse. Patient admits to nausea but denies any vomiting. Patient admits to some shortness of breath but denies any diaphoresis. Patient denies any fevers or chills. Patient admits to a cough. Patient also admits to some lightheadedness. Patient states he had a recent ablation for his atrial fibrillation. Patient denies any other recent surgeries. Physical Examination: Vital signs are stable. Patient is afebrile. Patient is in no acute distress. Oral mucosa is pink and moist. Neck is supple. Trachea is midline. There is no JVD. Heart was regular rate and rhythm. Lungs are clear and equal bilaterally. Abdomen is soft. Bowel sounds are normal. There is some mild epigastric tenderness. There is no rebound or guarding noted. Cranial nerves II through XII are intact. There are no focal motor or sensory deficits noted. Test Results: EKG showed normal sinus rhythm with a rate of 94. There is occasional PVC noted. There are no acute ST or T wave changes. This was unchanged compared to previous EKG dated 08/15/2019. CBC, comprehensive metabolic profile, lipase, and troponin were obtained and were all within normal limits. CTA of the chest was obtained due to his recent cardiac ablation. There is no evidence of pulmonary embolism. His thoracic aneurysm is stable. CT scan of the abdomen and pelvis was also obtained and does not show any acute anterior abdominal pathology. Emergency Department Course and Treatment: Patient was given morphine and Zofran here. Patient states he was still having some cramping in his abdomen. Patient was given a repeat dose of morphine. Patient was instructed to follow-up with his primary care physician in 3 to 5 days for further evaluation. Patient understood and was agreeable with the plan. All questions were answered. Disposition: Discharge home Impression: 1. Abdominal pain 2. Chest pain This note was generated with [employer] software. It may contain incorrect words, spelling, and punctuation that were not noted in review of the chart prior to signing ED Disposition - Plan for ED Patient: Disposition: Home or Assisted Living Diagnosis: Abdominal pain, Chest pain of unknown etiology Instructions: CHEST PAIN, Uncertain Cause, ABDOMINAL PAIN, Unkown Cause, (Male) Referrals: Ar Mckeon MD [Primary Care Provider] - 3-5 Days
[2019-08-23 22:22] LABS: ALB/GLOB Ratio 1.1 RATIO (0.9-2.4); AST(SGOT) 27 U/L (15-37); Alanine Aminotransfer ALT/SGPT 36 U/L (16-61); Albumin, Serum 3.8 g/dL (3.2-5.0); Alkaline Phosphatase 118 U/L (45-117); Anion Gap 7 (5-15); BUN 14 mg/dL (7-18); BUN/Creat Ratio 15.5 RATIO (10-20); Calcium,Total 8.8 mg/dL (8.5-10.1); Chloride 106 mmol/L (98-107); Creatinine, Serum 0.91 mg/dL (0.70-1.30); EST Glomerular Filtration Rate 94 mL/min (>60); Est Glom Filt Rate - Afr Amer 114 mL/min (>60); Estimated Creatinine Clearance 104.58 ml/min; Globulin 3.4 g/dL (2.2-4.2); Glucose 115 mg/dL (74-106); Lipase 152 U/L (73-393); Potassium 3.9 mmol/L (3.5-5.1); Protein, Total 7.2 g/dL (6.4-8.2); Sodium Level 140 mmol/L (136-145)
[2019-08-23 22:34] VITALS: BP 129/96; PULSE 91; RESP 15; O2SAT 99
[2019-08-23 23:03] VITALS: BP 132/90; PULSE 92; RESP 20; O2SAT 96
== END 2019-08-23 23:13 | disposition home or self-care (01) ==
PROVIDERS: Emergency Provider Emergency Medicine; Family Provider Family Medicine; PCP Family Medicine
DX: R07.9 Chest pain, unspecified (principal); R10.13 Epigastric pain; I48.91 Unspecified atrial fibrillation; I11.0 Hypertensive heart disease with heart failure; I50.9 Heart failure, unspecified; I71.2 Thoracic aortic aneurysm, without rupture; K21.9 Gastro-esophageal reflux disease without esophagitis; E66.9 Obesity, unspecified; Z79.01 Long term (current) use of anticoagulants; Z79.899 Other long term (current) drug therapy
CPT/HCPCS: 71275; 74177; 80053; 83690; 84484; 85025; 93005; 96361; 96374; 96375; 96376; 99284; J7030; Q9967; A4216; J2405

== ENCOUNTER 2019-09-02 18:04 | Emergency (ER) | payer MEDICARE, SELFPAY ==
[2019-09-02 18:08] VITALS: BP 129/102; PULSE 108; RESP 16; TEMP 36.9; O2SAT 98; BMI 33.2
--- NOTE | 2019-09-02 18:10 | RAD_ITS ---
STUDY: X-RAY - RIGHT SHOULDER REASON FOR EXAM: Male, 49 years old. Pain and popping sound after lifting something heavy. TECHNIQUE: 2 view(s) of the shoulder. COMPARISON: None. FINDINGS: Normal glenohumeral articulation. Normal acromioclavicular joint. Normal acromion. There is no acute fracture, dislocation or destructive osseous pathology. Normal humeral head and visualized proximal humerus. The soft tissue structures are unremarkable. Normal visualized pulmonary apex. RAD/Shoulder min 2 Views IMPRESSION: Normal x-ray examination of the shoulder. Electronically Signed: Carlos Eduardo Johnson DO at 18:36 EST Tel [phone], Service support ,
--- NOTE | 2019-09-02 18:42 | ED.VISSUMM ---
- ER Visit Summary Date of Service: 09/02/19 Chief Complaint: Shoulder pain History of Present Illness: The patient is a 49 M who states he has a history of right shoulder dislocation. He states that earlier today he felt that he had dislocated his right shoulder. He states that he believes he got it back again but is worried that it may still be subluxed. He is currently seeing Dr. Rivera at the [facility]. He states that he is supposed to have an MRI of the Physical Examination: Afebrile vital signs stable There is no obvious deformity/dislocation of the right shoulder. Moderately tender to palpation. Neurovascular intact without deficits. Test Results: Shoulder films were negative for dislocation. Emergency Department Course and Treatment: Patient states he does not have a sling or swath at home. We will provide that for him. He is to obtain his MRI and follow-up with orthopedics. Impression: 1. Right shoulder dislocation This note was generated with [employer] dictation software. It may contain incorrect words, spelling, and punctuation that were not noted in review of the chart prior to signing ED Disposition - Plan for ED Patient: Disposition: Home or Assisted Living Instructions: DISLOCATION: SHOULDER (Reduced) Additional Instructions: Follow-up with your orthopedist
[2019-09-02 19:14] VITALS: BP 152/108; PULSE 99; RESP 16; O2SAT 96
== END 2019-09-02 19:18 | disposition home or self-care (01) ==
PROVIDERS: Emergency Provider Emergency Medicine; Family Provider Family Medicine; PCP Family Medicine
DX: S43.004A Unspecified dislocation of right shoulder joint, initial encounter (principal); X58.XXXA Exposure to other specified factors, initial encounter; Y93.9 Activity, unspecified; Y92.9 Unspecified place or not applicable; K21.9 Gastro-esophageal reflux disease without esophagitis; I10 Essential (primary) hypertension; E78.00 Pure hypercholesterolemia, unspecified; E66.9 Obesity, unspecified; I48.0 Paroxysmal atrial fibrillation; Z79.01 Long term (current) use of anticoagulants; Z79.899 Other long term (current) drug therapy
CPT/HCPCS: 73030; 99282

== ENCOUNTER 2019-10-13 17:41 | Emergency (ER) | payer MEDICARE, SELFPAY ==
[2019-10-13 17:42] VITALS: BP 140/105; PULSE 102; RESP 18; TEMP 36.6; O2SAT 99; BMI 33.5
--- NOTE | 2019-10-13 17:52 | ED.DCSUM_ITS ---
History of Present Illness Chief Complaint: Abd Pain Detail of Chief Complaint: Nausea, vomiting and diarrhea as well Informant: Patient Onset: Days - Onset 3 days ago Context: Sudden Onset Timing: Intermittent, Waxes and wanes Quality: Diffuse pain Location: Abdomen Current Severity: Mild Maximum Severity: Severe Worsened by: Nothing Relieved by: Nothing Associated Symptoms: Nausea, vomiting diarrhea Narrative: Patient is a middle-age male who presents with abdominal pain that started 3 days ago. He said and vomiting for 2.5 days and reports diarrhea the past 2 days. He was having 3-5 episodes of vomiting. Based on description is bilious. He has watery soft stool. Last bowel movement noted blood on toilet paper. He has no history of inflammatory bowel disorder. States his pain is his worst right inguinal area. He had hernia repair by Dr. Ga in July. He denies dysuria, frequency, urgency or hematuria. He states the pain radiates through to his back. Prior similar symptoms: Yes Recent Illness/Hospitalization: Yes - Past Medical History (1) Anxiety Status: Chronic (2) Atherosclerotic heart disease of [place] coronary artery without angina pectoris Status: Chronic (3) Atrial fibrillation and flutter Status: Chronic (4) BPPV (benign paroxysmal positional vertigo) Status: Chronic (5) Essential hypertension Status: Chronic (6) GERD (gastroesophageal reflux disease) Status: Chronic (7) HLD (hyperlipidemia) Status: Chronic (8) LORETTA (obstructive sleep apnea) Status: Chronic (9) Obesity (BMI 30-39.9) Status: Chronic (10) SVT (supraventricular tachycardia) Status: Chronic (11) Thoracic aortic aneurysm without rupture Status: Chronic Past Medical History - Allergies and Home Meds Allergies/Adverse Reactions: Allergies clonidine Allergy (Intermediate, Verified 10/13/19 17:43) rash clindamycin Allergy (Verified 10/13/19 17:43) Rash doxycycline Allergy (Verified 10/13/19 17:43) Rash fentanyl Allergy (Verified 10/13/19 17:43) Rash levofloxacin [From Levaquin] Allergy (Verified 10/13/19 17:43) Rash Penicillins Allergy (Verified 10/13/19 17:43) Hives bupropion Adverse Reaction (Intermediate, Verified 10/13/19 17:43) vomiting celecoxib [From Celebrex] Adverse Reaction (Intermediate, Verified 10/13/19 17:43) vomiting eletriptan Adverse Reaction (Intermediate, Verified 10/13/19 17:43) Vomiting topiramate [From Topamax] Adverse Reaction (Intermediate, Verified 10/13/19 17:43) vomiting hydrocodone bitartrate [From Vicodin] Adverse Reaction (Verified 10/13/19 17:43) Nausea ketorolac [From Toradol] Adverse Reaction (Verified 10/13/19 17:43) PT ON BLOOD THINNERS, PER DR VICTOR HAVE TORADOL Primary Care Physician: Ar Mckeon MD [Primary Care Provider] - Prior records reviewed: Yes Surgical History: - - Left heart catheterization 1 year ago and ablation Lives: Spouse/ Significant Other Smoking Status: Never smoker Alcohol: None Drugs: None - Family History Maternal Family History: Family History (Last Reviewed 07/30/19 @ 12:47 by Cory Lomas MD) Brother Hypertension Mother Heart disease Colon cancer Sister Diabetes Sister Diabetes Sister Diabetes Family History: Reports: - - Maternal family history of DM, Colon CA, Valvular Heart Disease. Paternal Family History: Family History (Last Reviewed 07/30/19 @ 12:47 by Cory Lomas MD) Brother Hypertension Mother Heart disease Colon cancer Sister Diabetes Sister Diabetes Sister Diabetes Family History: Reports: - - Paternal family history of skin CA. Review of Systems General: Denies: Chills, Fever, Sweats Eyes: Denies: Visual changes - bilaterally, Blurred Vision - bilaterally, Diplopia ENT: Reports: - - Thirst and dry mouth. Denies: Rhinorrhea, Sore throat Cardiovascular: Denies: Chest pain, Palpitations Respiratory: Denies: Dyspnea, Cough, Dyspnea on exertion Gastrointestinal: Reports: Abdominal pain, Nausea, Vomiting, Diarrhea. Denies: Constipation, Melena, Hematochezia Genitourinary: Denies: Dysuria, Hematuria, Frequency Musculoskeletal: Reports: Back pain. Denies: Myalgias, Arthralgias, Neck pain, Swelling, Extremity Pain, -, - Skin: Denies: Rash, Wounds Neurological: Denies: Headache, Weakness, Numbness Hematologic: Denies: Easy bruising, Easy bleeding Allergy: Denies: Uticaria, Swelling of the mouth Physical Exam Vital Signs/Narrative: Vital Signs Temp Pulse Resp BP Pulse Ox 10/13/19 17:42 98 F 102 H 18 140/105 H 99 Inital Vital Signs reviewed: Yes General: Well nourished, Well developed, Obese, No Acute Distress Head: Normocephalic, Atraumatic Eyes: Perrl, EOMI. Negative for: Pale conjunctiva, Scleral icterus ENT: No rhinorrhea, Dry mucous membranes, - - Bilateral hearing aids Neck: Supple, Nontender, No lymphadenopathy, No JVD Cardiovascular: Regular rhythm, No murmurs, Normal S1, Normal S2, Tachycardia Respiratory: No distress, CTA bilaterally, Chest nontender Abdomen: Soft, Nondistended, No masses, Tender, Hypoactive bowel sounds. Negative for: Nontender, Normal bowel sounds, Guarding, Rebound tenderness, Hyperactive bowel sounds, Hepatomegaly, Splenomegaly, Mass, Pulsatile mass, Ventral hernia, Inguinal hernia, Rovsig's sign Back: Nontender, Normal Inspection Extremities: Nontender, No edema Skin: Normal color, No rash, No Trauma. Negative for: Cyanosis, Diaphoresis, Jaundice Neurological: Alert, Oriented x3, Cranial nerves II-XII grossly intact, Normal Strength, Normal Sensation, Normal Gait Psychological: Depressed Diagnostic/Tx/Re-eval Laboratory Results 10/13/19 18:03 Sodium 140 Potassium 4.9 Chloride 111 H Carbon Dioxide 25.0 Anion Gap 4 L BUN 12 Creatinine 1.01 Estim Creat Clear Calc 94.23 Est GFR (MDRD) Af Amer 101 Est GFR (MDRD) Non-Af 83 BUN/Creatinine Ratio 11.9 Glucose 75 Calcium 9.4 Electrolytes are unremarkable. Renal function is normal. I was informed by patient's nurse at 1840 that he has severe back pain. Of note patient's had approximately 35 visits this year alone. He also has history of chronic back pain. In light of his multiple allergies recommend he take Tylenol or ibuprofen when he gets home. - Medical Decision Making Patient's history and physical consistent with a viral gastroenteritis. Since he does have multiple medical problems will obtain basic metabolic panel to assess electrolytes, anion gap and kidney function. He received 1 L of normal saline. Zofran 4 mg IV push for his nausea vomiting and Bentyl for his pain. Has had no vomiting or diarrhea during his ER stay. He will be discharged with antiemetic, Bentyl and suggest follow-up with PCP if no improvement in 2 to 3 days. ED Disposition - Plan for ED Patient: Disposition: Home or Assisted Living Diagnosis: Abdominal pain, vomiting, and diarrhea, Mild dehydration, Chronic back pain greater than 3 months duration Instructions: VOMITING AND DIARRHEA, Nonspecific (Adult) Prescriptions: Dicyclomine HCl [Bentyl] 20 mg PO TIDAC #20 cap Prescription Printed Ondansetron [Zofran Odt] 4 mg PO Q8H PRN PRN #10 tab PRN Reason: Nausea Prescription Printed Referrals: Ar Mckeon MD [Primary Care Provider] - 3-5 Days if not improving
[2019-10-13] MEDS: Ondansetron 4 MG/2 ML Vial IV (18:06)
[2019-10-13] MEDS: 0.9% Normal Saline 1,000 ML 1000 ML IV (18:07)
[2019-10-13] MEDS: Dicyclomine 10 MG Capsule 20 MG PO (18:09)
[2019-10-13 18:41] LABS: Anion Gap 4 (5-15); BUN 12 mg/dL (7-18); BUN/Creat Ratio 11.9 RATIO (10-20); Calcium,Total 9.4 mg/dL (8.5-10.1); Chloride 111 mmol/L (98-107); Creatinine, Serum 1.01 mg/dL (0.70-1.30); EST Glomerular Filtration Rate 83 mL/min (>60); Est Glom Filt Rate - Afr Amer 101 mL/min (>60); Estimated Creatinine Clearance 94.23 ml/min; Glucose 75 mg/dL (74-106); Potassium 4.9 mmol/L (3.5-5.1); Sodium Level 140 mmol/L (136-145)
[2019-10-13 18:56] VITALS: BP 122/85; PULSE 90; RESP 16; O2SAT 99
--- NOTE | 2019-10-13 18:57 | ED.RN ---
REVIEWED D/C INSTRUCTIONS, FOLLOW UP CARE, PRESCRIPTIONS, AND S/S THAT WOULD WARRANT A RETURN TO THE ED WITH PT. PT VERBALIZED AN UNDERSTANDING AND DENIES FURTHER QUESTIONS FOR THIS RN. PT SKIN P/W/D, RESP EVEN AND UNLABORED, PT A&O X 3, NO DISTRESS NOTED. PT AMBULATED OUT OF ED, GAIT STEADY.
== END 2019-10-13 19:04 | disposition home or self-care (01) ==
PROVIDERS: Emergency Provider Emergency Medicine; Family Provider Family Medicine; PCP Family Medicine
DX: R10.9 Unspecified abdominal pain (principal); R11.2 Nausea with vomiting, unspecified; R19.7 Diarrhea, unspecified; E86.0 Dehydration; M54.9 Dorsalgia, unspecified; G89.29 Other chronic pain; I25.10 Atherosclerotic heart disease of native coronary artery without angina pectoris; I48.91 Unspecified atrial fibrillation; I47.1 Supraventricular tachycardia; I71.2 Thoracic aortic aneurysm, without rupture; I10 Essential (primary) hypertension; E78.5 Hyperlipidemia, unspecified; F41.9 Anxiety disorder, unspecified; E66.9 Obesity, unspecified; Z68.33 Body mass index [BMI] 33.0-33.9, adult; Z79.01 Long term (current) use of anticoagulants; Z79.899 Other long term (current) drug therapy
CPT/HCPCS: 80048; 96361; 96374; 99284; J7030; A4216; J2405

== ENCOUNTER 2019-11-08 18:37 | Observation (INO) | payer MEDICARE, SELFPAY ==
[2019-11-08 18:38] VITALS: BP 149/111; PULSE 105; RESP 23; TEMP 36.4; O2SAT 97; BMI 32.8
--- NOTE | 2019-11-08 19:12 | EKG12_ITS ---
Test Reason : CP Blood Pressure : / mmHG Vent. Rate : 111 BPM Atrial Rate : 111 BPM P-R Int : 188 ms QRS Dur : 076 ms QT Int : 326 ms P-R-T Axes : 027 008 017 degrees QTc Int : 443 ms Sinus tachycardia Otherwise normal ECG Confirmed by NABILA CONNOR, JEANCARLOS ([id number]), sound editor STEFFANIE MADISON ([id number]) on 11/10/2019 11:30:03 AM Referred By: SOO Confirmed By:JEANCARLOS DAHL MD
--- NOTE | 2019-11-08 19:12 | RAD_ITS ---
STUDY: X-RAY CHEST REASON FOR EXAM: Male, 49 years old. CHEST PAINS AND SOB TECHNIQUE: AP COMPARISON: 08/15/2019 FINDINGS: The lungs are clear and expanded. There is no demonstrated pleural abnormality. Normal size heart. Stable mediastinum and ruben. Normal visualized pulmonary arteries. Normal visualized aortic arch and descending thoracic aorta. No acute bony process. There is no demonstrated abnormality of the visualized soft tissue structures of the upper abdomen. RAD/Chest 1 View (Portable) IMPRESSION: Stable, nonacute portable x-ray examination of the chest. Electronically Signed: Pavan Trinh MD (Brooks) at 19:33 EST , Service support ,
--- NOTE | 2019-11-08 19:15 | ED.VISSUMM ---
- ER Visit Summary Date of Service: 11/08/19 Chief Complaint: Chest pain History of Present Illness: The patient is a 49 M presenting with chest pain. Patient states this started 1 hour prior to arrival. He has chest pain with shortness of breath and diaphoresis. He has also had nausea and vomiting today. He states that the chest pain lasts 1 minute at a time. It is 8 out of 10. He has had several 1 minute episodes over the past hour. He has pain with deep inspiration and with movements. He has a history of anxiety and has had similar symptoms with his anxiety. He has been out of his Lamictal which he takes for anxiety over the past 4 days. Denies suicidal ideation. He also has a history of A. fib, hypertension, hyperlipidemia, thoracic aortic aneurysm. Physical Examination: Vitals are stable. Patient is afebrile. Alert no acute distress. HEENT exam is unremarkable. Neck is supple. Lungs are clear and equal bilaterally. Heart is regular rate and rhythm. Abdomen is soft nontender nondistended. Extremities are unremarkable. Skin is warm and dry. No focal neurologic deficit. Anxious Remainder of exam is unremarkable. Emergency Department Course and Treatment: Patient given aspirin, Ativan, morphine, Zofran. EKG is sinus tachycardia rate of 111. CBC, chemistries unremarkable. Troponin is negative. D-dimer elevated at 0.72. Due to elevated d-dimer CTA chest was obtained and shows no pulmonary embolism is identified. Ascending aorta aneurysm now measures up to 4.9 x 4.6 cm, increased from 4.3 x 4.3 cm on the prior examination. Discussed with Dr. Ragsdale covering for Dr. Hernandez his cardiothoracic surgeon. He is not scheduled for follow-up for his thoracic aortic aneurysm until May. He recommends moving this up to this week. He states their office will call him for outpatient follow-up. Patient continues to have pain and was given morphine with improvement. Discussed with the hospitalist for observation. Disposition: Observation Impression: Chest pain This note was generated with [employer] dictation software. It may contain incorrect words, spelling, and punctuation that were not noted in review of the chart prior to signing ED Disposition - Plan for ED Patient:
[2019-11-08 19:27] VITALS: BP 119/92; PULSE 98; RESP 18; O2SAT 100
[2019-11-08] MEDS: Aspirin 81 MG TAB.CHEW 324 MG PO (19:30)
[2019-11-08] MEDS: LORazepam 1 MG Tablet PO (19:30)
[2019-11-08 19:32] LABS: Absolute Lymphocyte Count 1.93 X10^3/uL (0.83-4.51); Absolute Neutrophil Count 3.6 X10^3/uL (2.0-7.7); Basophil# 0.04 X10^3/uL; Basophil% 0.6 % (0-1); Eosinophil# 0.08 X10^3/uL; Eosinophils% 1.3 % (0-5); Hematocrit 49.6 % (40-54); Hemoglobin 16.4 g/dL (13.0-16.5); Lymphocyte # 1.93 X10^3/ul (4.0); Mean Corp Hgb Conc 33.1 g/dL (32-36); Mean Corpuscular Hgb 26.4 pg (27.0-32.0); Mean Corpuscular Volume 79.9 fL (80-94); Mean Platelet Vol. 9.1 fl (6.2-12.0); Monocyte# 0.57 X10^3/uL; Monocyte% 9.1 % (0-10); NRBC Flagged by Analyzer 0 % (0-5); Neutrophil # 3.61 X10^3/uL (2.7-7.7); Platelet Count 304 K/mm3 (150-450); RBC Distribution Width CV 13.2 % (11.6-14.6); RBC Distribution Width SD 37.2 fl (35.1-43.9); Red Blood Count 6.21 M/mm3 (4.6-6.2); White Blood Count 6.2 K/mm3 (4.4-11.0)
[2019-11-08 19:44] LABS: BUN 11 mg/dL (7-18); Creatinine, Serum 1.06 mg/dL (0.70-1.30); Glucose 106 mg/dL (74-106)
[2019-11-08 19:45] LABS: Anion Gap 6 (5-15); BUN/Creat Ratio 10.4 RATIO (10-20); Calcium,Total 9.9 mg/dL (8.5-10.1); Chloride 111 mmol/L (98-107); EST Glomerular Filtration Rate 79 mL/min (>60); Est Glom Filt Rate - Afr Amer 95 mL/min (>60); Estimated Creatinine Clearance 89.78 ml/min; Potassium 3.5 mmol/L (3.5-5.1); Sodium Level 141 mmol/L (136-145)
[2019-11-08 19:53] LABS: D-Dimer Quantitative (DVT/PE) 0.72 FEU/ug/m (0.27-0.49)
--- NOTE | 2019-11-08 20:10 | CT_ITS ---
STUDY: CTA CHEST REASON FOR EXAM: Male, 49 years old. LT SIDED CHEST PAIN, SOB AND NAUSEA RADIATION DOSAGE (If Supplied By Facility): CTDIvol = ( 12.67 ) mGy, DLP = ( 537.48 ) mGycm TECHNIQUE: The examination was performed with the intravenous administration of IV 100mL Isovue-370. Post-processing of the angiographic images was performed, with multiplanar reformation and 3D reconstruction. Individualized dose optimization techniques were used for this CT. COMPARISON: 08/23/19. FINDINGS: There is limited enhancement of the main pulmonary artery and right and left pulmonary arteries. There is limited enhancement of the bilateral peripheral pulmonary arteries. There is no demonstrated pulmonary embolism. Small irregularity within a segmental branch of the left pulmonary artery is presumed artifactual (series 2 image 170). Ascending aorta aneurysm now measures up to 4.9 x 4.6 cm, increased from 4.3 x 4.3 cm on the prior examination. There is no demonstrated aortic dissection. Normal heart and pericardium. Normal mediastinum. Normal hilar regions. Normal visualized trachea. Mild bronchiectasis of the bilateral lower lobes. The lungs are well expanded. Normal pulmonary parenchyma. Normal pleura. Normal chest wall structures. Normal osseous structures. Normal visualized upper abdomen. CT/CTA Chest W/WO Contrast IMPRESSION: No pulmonary embolism is identified. Ascending aorta aneurysm now measures up to 4.9 x 4.6 cm, increased from 4.3 x 4.3 cm on the prior examination. Electronically Signed: Fermin Aguilar, at 21:19 EST Tel , Service support ,
[2019-11-08 20:33] VITALS: BP 140/95; PULSE 110; RESP 22; O2SAT 100
[2019-11-08 22:21] VITALS: BP 136/111; PULSE 110; RESP 20; O2SAT 94
--- NOTE | 2019-11-08 22:40 | HP.PCM_ITS ---
Problem List (1) Chest pain Status: Acute Qualifiers: Chest pain type: unspecified Qualified Code(s): R07.9 - Chest pain, unspecified (2) Essential hypertension Status: Chronic (3) Atrial fibrillation and flutter Status: Chronic (4) LORETTA (obstructive sleep apnea) Status: Chronic (5) Anxiety Status: Chronic (6) PAF (paroxysmal atrial fibrillation) Status: Chronic (7) GERD (gastroesophageal reflux disease) Status: Chronic Qualifiers: Esophagitis presence: esophagitis presence not specified (8) Obesity (BMI 30-39.9) Status: Chronic (9) BPPV (benign paroxysmal positional vertigo) Status: Chronic Qualifiers: Laterality: unspecified laterality (10) HLD (hyperlipidemia) Status: Chronic Qualifiers: Hyperlipidemia type: unspecified (11) Thoracic aortic aneurysm without rupture Status: Chronic History of Present Illness Date of Admission: 11/08/19 Chief Complaint: Chest pain The patient is a 49 y/o M w/ PMHx: Anxiety and Depression, LORETTA, Obesity, HTN, HLD, GERD, CAD, PAF s/p RFA, Hx Thoracic aortic aneurysm who presents to the [facility] [place] ED on 11/08/19 with history of onset left chest discomfort, sharp stabbing in nature with an underlying dull ache with radiation to the left upper extremity with associated dyspnea, nausea, diaphoresis noted to be worse with any movement and with deep inspiratory effort starting ~ 1 hour [employer], initially rated 8/10 in severity, completely resolved after morphine but upon evaluation admits that now recurrent, 6-7 out of 10 in severity. Work-up in the ED included T 97.6, heart rate 105, BP 149/111, respiratory rate 23, 97% on room air, CBC with WBC 6.2, hemoglobin 16.4, platelets 304 without shift, d-dimer 0.72, BMP not marked appearing, troponin less than 0.015, EKG with sinus tachycardia with no acute evidence of ischemia, chest x-ray with no acute cardiopulmonary findings, CTPA with no pulmonary embolism identified, ascending aortic aneurysm increased from prior now 4.9 x 4.6 cm increased from previous 4.3 x 4.3 cm. In the ED patient administered aspirin 324 mg p.o. x1 as well as Ativan [address] Soliman CT Surgeon service was contacted per the ED physician and plan outpatient re- assessment this coming week for surgical evaluation for his aneurysm. 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 Cory Harley: normal coronaries 04/07/[address] [facility] [place] per Dr. Harris: normal coronaries Nephrolithiasis (Chronic) Anxiety (Chronic) PAF (paroxysmal atrial fibrillation) (Chronic) GERD (gastroesophageal reflux disease) (Chronic) Obesity (BMI 30-39.9) (Chronic) BPPV (benign paroxysmal positional vertigo) (Chronic) HLD (hyperlipidemia) (Chronic) Thoracic aortic aneurysm without rupture (Chronic) Medical History: Medical History (Last Reviewed 07/30/19 @ 12:47 by Cory Lomas MD) SVT (supraventricular tachycardia) (Chronic) I47.1 LORETTA (obstructive sleep apnea) (Chronic) G47.33 Atherosclerotic heart disease of hopi coronary artery without angina pectoris (Chronic) I25.10 Nephrolithiasis (Chronic) N20.0 Anxiety (Chronic) F41.9 PAF (paroxysmal atrial fibrillation) (Chronic) I48.0 GERD (gastroesophageal reflux disease) (Chronic) K21.9 Obesity (BMI 30-39.9) (Chronic) E66.9 BPPV (benign paroxysmal positional vertigo) (Chronic) H81.10 HLD (hyperlipidemia) (Chronic) E78.5 Thoracic aortic aneurysm without rupture (Chronic) I71.2 Allergies clonidine Allergy (Intermediate, Verified 11/08/19 18:42) rash clindamycin Allergy (Verified 11/08/19 18:42) Rash doxycycline Allergy (Verified 11/08/19 18:42) Rash fentanyl Allergy (Verified 11/08/19 18:42) Rash levofloxacin [From Levaquin] Allergy (Verified 11/08/19 18:42) Rash Penicillins Allergy (Verified 11/08/19 18:42) Hives bupropion Adverse Reaction (Intermediate, Verified 11/08/19 18:42) vomiting celecoxib [From Celebrex] Adverse Reaction (Intermediate, Verified 11/08/19 18:42) vomiting eletriptan Adverse Reaction (Intermediate, Verified 11/08/19 18:42) Vomiting topiramate [From Topamax] Adverse Reaction (Intermediate, Verified 11/08/19 18:42) vomiting hydrocodone bitartrate [From Vicodin] Adverse Reaction (Verified 11/08/19 18:42) Nausea ketorolac [From Toradol] Adverse Reaction (Verified 11/08/19 18:42) PT ON BLOOD THINNERS, PER DR KAYLEIGH LOREDO TORADOL Home Medications: Ambulatory Orders Medication Instructions Recorded Pantoprazole Sodium [Protonix] 40 mg PO DAILY 04/22/16 Albuterol Inhaler [Ventolin Hfa] 1 - 2 puff INHALATION Q4H PRN PRN 07/15/17 #1 inhaler Apixaban [Eliquis] 5 mg PO BID 09/21/17 Amlodipine Besylate [Norvasc] 5 mg PO DAILY 11/06/18 Ondansetron [Zofran Odt] 4 mg PO Q8H PRN PRN #10 tab 11/24/18 Sotalol HCl [Sotalol] 120 mg PO BID 05/11/19 Lisinopril 5 mg PO DAILY 05/29/19 Metoprolol Succinate [Toprol Xl] 50 mg PO DAILY 05/29/19 Potassium Chloride [Klor-Con M10] 10 meq PO BID 05/29/19 hydrOXYzine pamoate capsule 25 mg PO BID 05/29/19 [Vistaril pamoate capsule] Lamotrigine 100 mg PO DAILY 06/24/19 Nitroglycerin [Nitrolingual [place]] 0.4 mg SUBLINGUAL PRN PRN 11/08/19 Meclizine HCl 25 mg PO TID PRN PRN 11/09/19 Surgical History: Surgical History (Last Reviewed 07/30/19 @ 12:47 by Cory Lomas MD) History of left heart catheterization (Chronic) Z98.890 11/09/2016 @ [facility], per Dr. oCry Harley: normal coronaries 04/07/[address] [facility] [place] per Dr. Harris: normal coronaries History of cardiac radiofrequency ablation (Resolved) Z98.890 10/09/[address] [facility] [address] Andrew laser lithotripsy Onset Date: ~06/2018 H/O arthroscopic knee surgery Z98.890 History of back surgery Z98.890 History of right knee surgery Z98.890 Surgical History: - - Recent right arthroscopic shoulder surgery, RFA. Psychiatric History: Anxiety Lives: Spouse/ Significant Other Smoking Status: Never smoker Tobacco Use: Non-smoker Alcohol: None Drugs: None - *Family History Maternal Family History: Family History (Last Reviewed 07/30/19 @ 12:47 by Cory Lomas MD) Brother Hypertension Mother Heart disease Colon cancer Sister Diabetes Sister Diabetes Sister Diabetes History Items: - - Maternal family history of DM, Colon CA, Valvular Heart Disease. Paternal Family History: Family History (Last Reviewed 07/30/19 @ 12:47 by Cory Lomas MD) Brother Hypertension Mother Heart disease Colon cancer Sister Diabetes Sister Diabetes Sister Diabetes History Items: - - Paternal family history of skin CA. Review of Systems Constitutional: Denies: Chills, Fever, Weight Change HEENT: Denies: Head Aches, Sinus Congestion, Sinus Drainage Cardiovascular: Reports: Chest Pain. Denies: Chest Pressure, Chest Tightness, Light Headedness, Orthopnea, Palpitations, Syncope Respiratory: Reports: Shortness of Breath, Shortness of breath at rest, Shortness of breath upon exertion. Denies: Cough, Sputum production Gastrointestinal: Reports: Nausea. Denies: Abdominal Pain, Vomiting Genitourinary: Denies: Dysuria Musculoskeletal: Reports: Joint Pain. Denies: Joint Tenderness Skin: Denies: Rash, Wounds Neurological: Denies: Numbness, Tingling, Focal weakness Psychiatric: Reports: Anxiety, Depression. Denies: Homicidal Ideations, Suicidal Ideations Hematologic/ Lymphatic: Reports: Easy Bruising, Easy Bleeding VTE Information - Inpt Only VTE Present on Admission: No VTE Mechan Device Prophylaxis: SCD's VTE Pharm Prophylaxis ordered?: No Reason prophylaxis not ordered:: Treatment Not Indicated - Continue home oral anticoagulant. Patient Problems: Active and Suspected Problems (Last Reviewed 07/30/19 @ 12:47 by Cory Lomas MD) Chest pain (Acute) Subjective: Seated upright in the bed, mildly fatigued appearance, notes ongoing left chest discomfort, requesting medication. Objective: Physical Examination: General: awake, alert, oriented x 3 and cooperative, seated upright in the ED bed, fatigued appearance, notes ongoing left-sided chest discomfort. Skin: normal color, turgor, no icterus, cyanosis. HEENT: AT/NC, EOMI, PERRLA, mildly dry MM, no carotid bruits or JVD noted. Lungs: CTA bilaterally, moderate effort, moderate decrease BL bases, no rales, ronchi or wheezing. Heart: Regular rate and rhythm; no gallop, rub audible. Abdomen: soft, obese, NTTP, ND, normal BS, no HSM. Extremities: no cyanosis, clubbing, or edema. Neurological: patient awake, alert, oriented x 3; cognitive function intact; pupils equally reactive to light and accomodation; cranial nerves II-XII grossly normal, moving all 4 extremities, no focal deficits, strength moderately globally Amada secondary to acute presentation and complaints. Psychiatric: affect appears uncomfortable, fatigue, no acute evidence of depressive or anxiety feelings. - Physical Exam Vitals/I&O's: Vital Signs Temp Pulse Resp BP Pulse Ox 97.6 F L 110 H 20 H 136/111 H 94 11/08/19 18:38 11/08/19 22:21 11/08/19 22:21 11/08/19 22:21 11/08/19 22:21 Oxygen Delivery Method Room Air Weight: 235 lb 7.259 oz Body Mass Index (BMI) 32.8 Finger Stick Blood Glucose 94 Laboratory Results 11/08/19 19:20: WBC 6.2, RBC 6.21 H, Hgb 16.4, Hct 49.6, MCV 79.9 L, MCH 26.4 L, MCHC 33.1, RDW Std Deviation 37.2, RDW Coeff of Michele 13.2, Plt Count 304, MPV 9.1, Immature Gran % (Auto) 0.000, Neut % (Auto) 58.0, Lymph % (Auto) 31.0, Amelia % (Auto) 9.1, Eos % (Auto) 1.3, Baso % (Auto) 0.6, Absolute Neuts (auto) 3.6, Absolute Lymphs (auto) 1.93, Nucleated RBC % 0 11/08/19 19:20: D-Dimer Quant (PE/DVT) 0.72 H* 11/08/19 19:20: Sodium 141, Potassium 3.5, Chloride 111 H, Carbon Dioxide 24.0, Anion Gap 6, BUN 11, Creatinine 1.06, Estim Creat Clear Calc 89.78, Est GFR (MDRD) Af Amer 95, Est GFR (MDRD) Non-Af 79, BUN/Creatinine Ratio 10.4, Glucose 106, Calcium 9.9, Troponin I < 0.015 Assessment/Plan All Active Problems (Last Reviewed 07/30/19 @ 12:47 by Cory Lomas MD) Vertigo (Resolved) Stroke-like symptoms (Resolved) Chest pain (Acute) History of cardiac radiofrequency ablation (Resolved) Double vision (Resolved) The patient is a 49 y/o M w/ PMHx: Anxiety and Depression, LORETTA, Obesity, HTN, HLD, GERD, CAD, PAF s/p RFA, Hx Thoracic aortic aneurysm who presents to the [facility] [place] ED on 11/08/19 with history of onset left chest discomfort, sharp stabbing in nature with an underlying dull ache with radiation to the left upper extremity with associated dyspnea, nausea, diaphoresis noted to be worse with any movement and with deep inspiratory effort starting ~ 1 hour [employer], initially rated 8/10 in severity. 1. Chest Pain: ED evaluation d-dimer 0.72, troponin less than 0.015, EKG with sinus tachycardia with no acute evidence of ischemia, chest x-ray with no acute cardiopulmonary findings, CTPA with no pulmonary embolism identified, ascending aortic aneurysm increased from prior now 4.9 x 4.6 cm increased from previous 4.3 x 4.3 cm. Will admit to PCU, place on a monitored bed to assure no acute myocardial infarction with serial cardiac enzymes and EKGs. If cardiac enzymes and repeat EKG unremarkable will pursue a.m. cardiac stress testing. ASA, NG, morphine. 2. Thoracic AAA: CTPA w/ ascending aortic aneurysm increased from prior now 4.9 x 4.6 cm increased from previous 4.3 x 4.3 cm, will need to follow-up with his Vascular Surgeon coming week which was discussed per ED physician with his service at [facility]. CT surgery service was amenable to patient remaining it was took ne hospital for evaluation of his chest pain. 3. Non-obstructive CAD: We will continue patient home Eliquis, statin, metopro lol, lisinopril regimen. 4. Hypertension: Continue home regimen including lisinopril, metoprolol, Norvasc, PRN hydralazine. 5. Hyperlipidemia: Continue home statin regimen. AM FLP. 6. PAF: We will continue patient home Eliquis, sotalol, metoprolol regimen. 7. LORETTA: We will continue CPAP nightly. 8. GERD: We will continue patient home PPI. 9. Obesity: Weight loss and lifestyle changes encouraged. 10. Anxiety and Depression: We will continue patient home Vistaril, lamotrigine regimen as well as PRN breakthrough Ativan given severity of current agitation. 11. DVT prophylaxis: SCDs, continue home Eliquis regimen. Code Visit OBSV E&M: [id number] Initial observation care L3
[2019-11-08] MEDS: Morphine 4 MG/ML Syringe IV (23:22)
[2019-11-08] MEDS: Ondansetron 4 MG/2 ML Vial IV (23:22)
[2019-11-08 23:40] VITALS: BP 124/88; PULSE 107; PULSE 97; RESP 16; TEMP 36.4; O2SAT 99
--- NOTE | 2019-11-08 23:41 | EKG12_ITS ---
Test Reason : REPEAT FLOOR EKG Blood Pressure : / mmHG Vent. Rate : 106 BPM Atrial Rate : 106 BPM P-R Int : 184 ms QRS Dur : 080 ms QT Int : 344 ms P-R-T Axes : 036 014 021 degrees QTc Int : 456 ms Sinus tachycardia Otherwise normal ECG Confirmed by INDER CONNOR, ASAEL ([id number]), scientific editor STEFFANIE MADISON ([id number]) on 11/11/2019 11:07:57 AM Referred By: MARIBEL Confirmed By:ASAEL LOVING MD
[2019-11-08 23:48] VITALS: BMI 31.6; BMI 32.8
[2019-11-08 23:53] LABS: Magnesium 1.9 mg/dL (1.6-2.6)
[2019-11-09] VITALS (10 sets, daily range): BP systolic 106–149; BP diastolic 75–92; PULSE 77–105; RESP 15–18; TEMP 36.5–36.7; O2SAT 94–99
[2019-11-09] MEDS: Atorvastatin Calcium 20 MG Tablet PO ×2 (00:55→11:40)
[2019-11-09] MEDS: APIXABAN 5 MG TABLET PO ×2 (00:56→14:16)
[2019-11-09] MEDS: Sotalol Hydrochloride 80 MG Tablet 120 MG PO ×2 (00:58→13:25)
[2019-11-09] MEDS: Metoprolol(XL)Succ 25 MG Tablet PO ×2 (00:59→11:41)
[2019-11-09] MEDS: 0.9% Normal Saline 1,000 ML 100 ML IV ×2 (01:08→13:03)
[2019-11-09] MEDS: 0.9% Saline Lock 10 ML Syringe IV (01:11)
--- NOTE | 2019-11-09 01:50 | NURSING ---
Verbal handoff report given to Cally Browning RN. She will now resume care of patient.
[2019-11-09] MEDS: Ondansetron 4 MG/2 ML Vial IV (03:27)
[2019-11-09] MEDS: Morphine 4 MG/ML Syringe IV ×4 (03:28→15:09)
[2019-11-09 03:45] LABS: Anion Gap 7 (5-15); BUN 10 mg/dL (7-18); BUN/Creat Ratio 11.3 RATIO (10-20); Chloride 110 mmol/L (98-107); Cholesterol 187 mg/dL (200); Creatinine, Serum 0.89 mg/dL (0.70-1.30); EST Glomerular Filtration Rate 97 mL/min (>60); Est Glom Filt Rate - Afr Amer 117 mL/min (>60); Estimated Creatinine Clearance 106.93 ml/min; Glucose 92 mg/dL (74-106); High Density Lipoprotein 31 mg/dL; Potassium 3.8 mmol/L (3.5-5.1); Sodium Level 143 mmol/L (136-145); Triglycerides 222 mg/dL; Very Low Density Lipoprotein 44 mg/dL (5-40)
[2019-11-09 04:03] LABS: Absolute Lymphocyte Count 2.55 X10^3/uL (0.83-4.51); Absolute Neutrophil Count 2.5 X10^3/uL (2.0-7.7); Basophil# 0.06 X10^3/uL; Eosinophils% 1.7 % (0-5); Hematocrit 44.8 % (40-54); Hemoglobin 14.8 g/dL (13.0-16.5); Lymphocyte # 2.55 X10^3/ul (4.0); Lymphocyte % 44.1 % (19-41); Mean Corpuscular Hgb 26.8 pg (27.0-32.0); Mean Platelet Vol. 9.1 fl (6.2-12.0); Monocyte# 0.58 X10^3/uL; NRBC Flagged by Analyzer 0 % (0-5); Neutrophil # 2.48 X10^3/uL (2.7-7.7); Platelet Count 267 K/mm3 (150-450); RBC Distribution Width CV 13.4 % (11.6-14.6); RBC Distribution Width SD 38.5 fl (35.1-43.9); Red Blood Count 5.53 M/mm3 (4.6-6.2); White Blood Count 5.8 K/mm3 (4.4-11.0)
[2019-11-09] MEDS: Lisinopril 5 MG Tablet PO (05:47)
[2019-11-09] MEDS: Aspirin E.C. 81 MG Tablet PO (05:48)
[2019-11-09] MEDS: lamoTRIgine 100 MG Tablet PO (11:40)
[2019-11-09] MEDS: amLODIPine 5 MG Tablet PO (11:40)
[2019-11-09] MEDS: hydrOXYzine PAM 25 MG Capsule PO (11:40)
[2019-11-09] MEDS: Pantoprazole Sodium 40 MG Tablet PO (11:41)
[2019-11-09] MEDS: oxyCODONE 5 MG Tablet PO (13:07)
--- NOTE | 2019-11-09 13:16 | STRESSREP ---
Stress Test Report Pharmacologic myocardial perfusion stress test. 49-year-old man with a history of chest pain. Stress protocol: Resting EKG demonstrates normal sinus rhythm with a rate of 75 bpm normal intervals are noted. 0.4 mg of regadenoson was infused per usual protocol followed by rapid intravenous and flush injection continuous EKG monitoring was performed. The maximum heart rate attained was 96 bpm which was 56% of maximal predicted heart rate the maximum workload was 1 metabolic equivalent. At rest there were no ST or T wave changes noted suggest abnormal flow reserve at peak infusion nonspecific ST-T wave changes were noted with no meet the criteria for ischemia. No clinical angina was noted. Myocardial perfusion protocol. 15.0 mCi of technetium 99m sestamibi was injected at rest. 0.4 mg of regadenoson was infused per usual protocol. At peak infusion 45.0 mCi of technetium 99m sestamibi was injected stress images were obtained stress and rest images were reconstructed in comparing the short axis vertical long horizontal long axis. Gated images were also obtained Perfusion SPECT analysis: Review of the stress images demonstrate normal uptake of tracer noted in all areas of the myocardium the resting images similar demonstrate normal uptake of tracer noted in all areas of the myocardium. No areas of reversibility are noted suggest ischemia no previous infarct is noted. Gated SPECT analysis: The gated ejection fraction is noted to be 81%. Conclusion: Normal pharmacologic myocardial perfusion stress test. Preserved ejection fraction.
--- NOTE | 2019-11-09 14:09 | PCM.DC ---
- Discharge Diagnoses Current Active Problems: Current Active and Chronic Problems (Last Reviewed 07/30/19 @ 12:47 by Cory Lomas MD) Chest pain (Acute) You will use the following diet at home:: Regular Your food should be the consistency of: Regular Discharge Activity: Return to Normal Activity Call your doctor if you observe: Shortness of breath, Chest pain Allergies/Adverse Reactions: Allergies clonidine Allergy (Intermediate, Verified 11/08/19 18:42) rash clindamycin Allergy (Verified 11/08/19 18:42) Rash doxycycline Allergy (Verified 11/08/19 18:42) Rash fentanyl Allergy (Verified 11/08/19 18:42) Rash levofloxacin [From Levaquin] Allergy (Verified 11/08/19 18:42) Rash Penicillins Allergy (Verified 11/08/19 18:42) Hives bupropion Adverse Reaction (Intermediate, Verified 11/08/19 18:42) vomiting celecoxib [From Celebrex] Adverse Reaction (Intermediate, Verified 11/08/19 18:42) vomiting eletriptan Adverse Reaction (Intermediate, Verified 11/08/19 18:42) Vomiting topiramate [From Topamax] Adverse Reaction (Intermediate, Verified 11/08/19 18:42) vomiting hydrocodone bitartrate [From Vicodin] Adverse Reaction (Verified 11/08/19 18:42) Nausea ketorolac [From Toradol] Adverse Reaction (Verified 11/08/19 18:42) PT ON BLOOD THINNERS, PER DR VICTOR HAVE TORADOL Medications to take at Discharge Pantoprazole Sodium [Protonix] 40 mg PO DAILY 04/22/16 Albuterol Inhaler [Ventolin Hfa] 1 - 2 puff INHALATION Q4H PRN PRN #1 inhaler 07/15/17 Apixaban [Eliquis] 5 mg PO BID 09/21/17 Amlodipine Besylate [Norvasc] 5 mg PO DAILY 11/06/18 Ondansetron [Zofran Odt] 4 mg PO Q8H PRN PRN #10 tab 11/24/18 Sotalol HCl [Sotalol] 120 mg PO BID 05/11/19 Lisinopril 5 mg PO DAILY 05/29/19 Metoprolol Succinate [Toprol Xl] 50 mg PO DAILY 05/29/19 Potassium Chloride [Klor-Con M10] 10 meq PO BID 05/29/19 hydrOXYzine pamoate capsule [Vistaril pamoate capsule] 25 mg PO BID 05/29/19 Lamotrigine 100 mg PO DAILY 06/24/19 Nitroglycerin [Nitrolingual [place]] 0.4 mg SUBLINGUAL PRN PRN 11/08/19 Meclizine HCl 25 mg PO TID PRN PRN 11/09/19 Primary Care Physician: Ar Mckeon MD [NON-STAFF] - Within 2 Weeks Test Results: Test results from this visit will be discussed in further detail at your follow-up appointment, if applicable. Please Follow Up With: Jayden Hernandez - cardiothoracic surgery When: 1-2 weeks Proposed Discharge Date: 11/09/19
--- NOTE | 2019-11-09 14:11 | DS.PCM_ITS ---
Discharge Date and Diagnosis - Problem List Patient Problems: Active and Suspected Problems (Last Reviewed 07/30/19 @ 12:47 by Coyr Lomas MD) Chest pain (Acute) Date of Admission: 11/08/19 Date of Discharge: 11/09/19 - Primary Discharge Diagnosis Active and Suspected Problems (Last Reviewed 07/30/19 @ 12:47 by Cory Lomas MD) Chest pain (Acute) - Secondary Discharge Diagnosis Chronic Problems (Last Reviewed 07/30/19 @ 12:47 by Cory Lomas MD) Essential hypertension (Chronic) Atrial fibrillation and flutter (Chronic) SVT (supraventricular tachycardia) (Chronic) LORETTA (obstructive sleep apnea) (Chronic) Atherosclerotic heart disease of [place] coronary artery without angina pectoris (Chronic) History of left heart catheterization (Chronic) 11/09/2016 @ [facility], per Dr. Cory Harley: normal coronaries 04/07/2018 @ [facility] per Dr. Harris: normal coronaries Nephrolithiasis (Chronic) Anxiety (Chronic) PAF (paroxysmal atrial fibrillation) (Chronic) GERD (gastroesophageal reflux disease) (Chronic) Obesity (BMI 30-39.9) (Chronic) BPPV (benign paroxysmal positional vertigo) (Chronic) HLD (hyperlipidemia) (Chronic) Thoracic aortic aneurysm without rupture (Chronic) Hospital Course and Treatment Imaging Results: 11/09/19 05:55 Nuclear Stress Test - Treadmil [NM] AM (NON MEDS) Clinical Impression(s) from Imaging Studies Chest X-Ray 11/08/19 19:12 IMPRESSION: Stable, nonacute portable x-ray examination of the chest. Electronically Signed: Pavan Trinh MD ([place]) at 19:33 EST , Service support , Chest CTA 11/08/19 20:10 IMPRESSION: No pulmonary embolism is identified. Ascending aorta aneurysm now measures up to 4.9 x 4.6 cm, increased from 4.3 x 4.3 cm on the prior examination. Electronically Signed: Fermin Aguilar, at 21:19 EST Tel , Service support , Operations: None Procedures: None Summary of Care Provided: The patient is a 49 year old Simon Packer with chest pain. Chest pain was variable and can be at rest or with exertion. So patient presented to for evaluation. Had an elevated d-dimer of 0.72. He underwent a CT angiogram of the chest that showed a an ascending aortic aneurysm measuring 4.9 x 4.6. Larger than it had been back in August. Dr. Hernandez, of cardiothoracic surgery, was contacted and recommended outpatient follow-up. Patient was then submitted to the [facility] for evaluation of the chest pain. Patient had work-up including stress test and troponins, which were negative. Plans for the patient to be discharged home and to follow-up with cardiothoracic surgery in the coming weeks. [] Patient Problems: Active and Suspected Problems (Last Reviewed 07/30/19 @ 12:47 by Cory Lomas MD) Chest pain (Acute) - Physical Exam Vitals/I&O's: Vital Signs Temp Pulse Resp BP Pulse Ox 36.6 C 84 16 109/87 H 98 11/09/19 11:30 11/09/19 11:41 11/09/19 11:30 11/09/19 11:30 11/09/19 11:30 Oxygen Delivery Method Room Air Weight: 102.7 kg Body Mass Index (BMI) 31.6 Finger Stick Blood Glucose 94 Intake and Output for Last 24 Hours 11/07/19 11/08/19 11/09/19 23:59 23:59 23:59 Intake Total 0 / 0 966.67 / 966.67 Balance 0 / 0 966.67 / 966.67 General: Alert, Cooperative, No apparent distress HEENT: Atraumatic, Normocephalic Oral: Moist Mucosa, No Gingival or Mucosal Lesions/ Ulcerations Neck: No Nodes, Trachea Midline Lungs: Clear to auscultation, Normal air movement, No rhonchi, No wheeze, No rales Cardiovascular: Regular rate, Regular Rhythm, Normal S1, Normal S2, No murmurs Abdomen: Bowel Sounds Present, Soft, Non Tender, Non-Distended, No Hepato-splenomegaly Extremities: No edema, No Calf Tenderness Laboratory Results 11/08/19 19:20: WBC 6.2, RBC 6.21 H, Hgb 16.4, Hct 49.6, MCV 79.9 L, MCH 26.4 L, MCHC 33.1, RDW Std Deviation 37.2, RDW Coeff of Michele 13.2, Plt Count 304, MPV 9.1, Immature Gran % (Auto) 0.000, Neut % (Auto) 58.0, Lymph % (Auto) 31.0, [place] % (Auto) 9.1, Eos % (Auto) 1.3, Baso % (Auto) 0.6, Absolute Neuts (auto) 3.6, Absolute Lymphs (auto) 1.93, Nucleated RBC % 0 11/08/19 19:20: D-Dimer Quant (PE/DVT) 0.72 H* 11/08/19 19:20: Sodium 141, Potassium 3.5, Chloride 111 H, Carbon Dioxide 24.0, Anion Gap 6, BUN 11, Creatinine 1.06, Estim Creat Clear Calc 89.78, Est GFR (MDRD) Af Amer 95, Est GFR (MDRD) Non-Af 79, BUN/Creatinine Ratio 10.4, Glucose 106, Calcium 9.9, Troponin I < 0.015 11/08/19 19:20: Magnesium 1.9 11/09/19 00:17: Troponin I < 0.015 11/09/19 03:01: WBC 5.8, RBC 5.53, Hgb 14.8, Hct 44.8, MCV 81.0, MCH 26.8 L, MCHC 33.0, RDW Std Deviation 38.5, RDW Coeff of Michele 13.4, Plt Count 267, MPV 9.1, Immature Gran % (Auto) 0.200, Neut % (Auto) 43.0 L, Lymph % (Auto) 44.1 H, [place] % (Auto) 10.0, Eos % (Auto) 1.7, Baso % (Auto) 1.0, Absolute Neuts (auto) 2.5, Absolute Lymphs (auto) 2.55, Nucleated RBC % 0 11/09/19 03:01: Sodium 143, Potassium 3.8, Chloride 110 H, Carbon Dioxide 26.0, Anion Gap 7, BUN 10, Creatinine 0.89, Estim Creat Clear Calc 106.93, Est GFR (MDRD) Af Amer 117, Est GFR (MDRD) Non-Af 97, BUN/Creatinine Ratio 11.3, Glucose 92, Calcium 9.0, Triglycerides 222 H, Cholesterol 187, LDL Cholesterol 112, VLDL Cholesterol 44 H, HDL Cholesterol 31 L 11/09/19 03:01: Troponin I < 0.015 Current Medications Acetaminophen (Tylenol) 650 mg PO Q6H PRN PRN PRN Reason: Pain Score 1-3/Temp > 100.7 F Al Hydroxide/Mg Hydroxide (Mylanta Ii) 30 ml PO Q6H PRN PRN PRN Reason: Gastric Burning Albuterol Sulfate (Ventolin Aerosols) 2.5 mg INHALATION Q2H PRN PRN PRN Reason: SOB/Wheezing Amlodipine Besylate (Norvasc) 5 mg PO DAILY [facility] Last Admin: 11/09/19 11:40 Dose: 5 mg Documented by: Apixaban (Eliquis) 5 mg PO BID [facility] Last Admin: 11/09/19 00:56 Dose: 5 mg Documented by: Aspirin (Ecotrin) 81 mg PO DAILY@0800 [facility] Last Admin: 11/09/19 05:48 Dose: 81 mg Documented by: Atorvastatin Calcium (Lipitor) 20 mg PO DAILY [facility] Last Admin: 11/09/19 11:40 Dose: 20 mg Documented by: Glucagon () 1 mg IM .X1 PRN PRN Reason: Hypoglycemia Guaifenesin (Robitussin) 20 ml PO Q4H PRN PRN PRN Reason: COUGH Hydralazine HCl (Apresoline Iv) 10 mg IV Q4H PRN PRN PRN Reason: SBP > 160 Hydroxyzine Pamoate (Vistaril Pamoate Capsule) 25 mg PO BID [facility] Last Admin: 11/09/19 11:40 Dose: 25 mg Documented by: Sodium Chloride () 1,000 mls @ 100 mls/hr IV .Q10H [facility] Last Admin: 11/09/19 13:03 Dose: 100 mls/hr Documented by: Sodium Chloride () 250 mls @ 15 mls/hr IV .[id number] PRN PRN Reason: Saline Flush Sodium Chloride () 250 mls @ 15 mls/hr IV .[id number] PRN PRN Reason: Additional IVPB Infusion Dextrose (Dextrose 10%-Water) 250 mls @ 999 mls/hr IV .Q16M PRN; Protocol PRN Reason: HYPOGLYCEMIA Lamotrigine (Lamictal) 100 mg PO DAILY [facility] Last Admin: 11/09/19 11:40 Dose: 100 mg Documented by: Lisinopril (Zestril) 5 mg PO DAILY [facility] Last Admin: 11/09/19 05:47 Dose: 5 mg Documented by: Lorazepam (Ativan) 0.5 mg PO Q6H PRN PRN PRN Reason: severe anxiety/panic Magnesium Hydroxide (Milk Of Magnesia) 30 ml PO DAILY PRN PRN PRN Reason: Constipation Meclizine HCl (Antivert) 25 mg PO TID PRN PRN PRN Reason: DIZZINESS Metoprolol Succinate (Toprol Xl (Beta [place])) 25 mg PO BID [facility] Last Admin: 11/09/19 11:41 Dose: 25 mg Documented by: Morphine Sulfate () 4 mg IV Q3H PRN PRN PRN Reason: Pain Score 6-10/10 Last Admin: 11/09/19 11:41 Dose: 4 mg Documented by: Nitroglycerin (Nitrostat) 0.4 mg SUBLINGUAL Q5M PRN PRN Reason: CARDIAC/CHEST PAIN Ondansetron HCl (Zofran) 4 mg IV Q8H PRN PRN PRN Reason: NAUSEA/VOMITING Last Admin: 11/09/19 03:27 Dose: 4 mg Documented by: Oxycodone HCl (Oxyir) 5 mg PO Q4H PRN PRN PRN Reason: Pain Score 4-5/10 Last Admin: 11/09/19 13:07 Dose: 5 mg Documented by: Pantoprazole Sodium (Protonix) 40 mg PO DAILY [facility] Last Admin: 11/09/19 11:41 Dose: 40 mg Documented by: Potassium Chloride (K-Dur) 10 meq PO BID [facility] Last Admin: 11/09/19 11:40 Dose: 10 meq Documented by: Prochlorperazine Edisylate (Compazine Iv) 5 mg IV Q4H PRN PRN PRN Reason: Breakthrough Nausea/Vomiting Sodium Chloride () 10 - 40 ml IV UD PRN PRN Reason: SALINE FLUSH Last Admin: 11/09/19 01:11 Dose: 10 ml Documented by: Sotalol HCl (Betapace (G)) 120 mg PO BID [facility] Last Admin: 11/09/19 13:25 Dose: 120 mg Documented by: Temazepam (Restoril) 15 mg PO QHS PRN PRN PRN Reason: INSOMNIA Throat Lozenges (Cepacol Sore Throat Lozenge) 1 lozenge MUCOUS MEM Q2H PRN PRN PRN Reason: Sore Throat/Cough Discharge Diet: Low fat/ Low Cholesterol Discharge Activity: Return to Normal Activity Call your doctor if you observe: Shortness of breath, Chest pain Home Medications: Medications to take at Discharge Pantoprazole Sodium [Protonix] 40 mg PO DAILY 04/22/16 Albuterol Inhaler [Ventolin Hfa] 1 - 2 puff INHALATION Q4H PRN PRN #1 inhaler 07/15/17 Apixaban [Eliquis] 5 mg PO BID 09/21/17 Amlodipine Besylate [Norvasc] 5 mg PO DAILY 11/06/18 Ondansetron [Zofran Odt] 4 mg PO Q8H PRN PRN #10 tab 11/24/18 Sotalol HCl [Sotalol] 120 mg PO BID 05/11/19 Lisinopril 5 mg PO DAILY 05/29/19 Metoprolol Succinate [Toprol Xl] 50 mg PO DAILY 05/29/19 Potassium Chloride [Klor-Con M10] 10 meq PO BID 05/29/19 hydrOXYzine pamoate capsule [Vistaril pamoate capsule] 25 mg PO BID 05/29/19 Lamotrigine 100 mg PO DAILY 06/24/19 Nitroglycerin [Nitrolingual [place]] 0.4 mg SUBLINGUAL PRN PRN 11/08/19 Meclizine HCl 25 mg PO TID PRN PRN 11/09/19 Primary Care Physician: Ar Mckeon MD [NON-STAFF] - Within 2 Weeks Please Follow Up With: Jayden Hernandez - cardiothoracic surgery When: 1-2 weeks Disposition: Home Minutes spent on discharge:: 28 Patient Condition:: Good Medical Necessity - Tobacco Use Smoking Status: Never smoker Tobacco Use: Non-smoker Meaningful Use Info Meaningful Use Diagnoses (Choose all that apply): None applicable Code Visit OBSV E&M: 15612 Observation care discharge
--- NOTE | 2019-11-09 15:17 | PHA.DC.MR ---
Pharmacy Service has performed discharge medication reconciliation for this patient. No new medications issued at time of discharge review, medications reviewed are previously reported home medications. The patient's discharge medication list was reviewed for discrepancies and discrepancies were resolved. Home Medications Pantoprazole Sodium [Protonix] 40 mg PO DAILY 04/22/16 Albuterol Inhaler [Ventolin Hfa] 1 - 2 puff INHALATION Q4H PRN PRN #1 inhaler 07/15/17 Apixaban [Eliquis] 5 mg PO BID 09/21/17 Amlodipine Besylate [Norvasc] 5 mg PO DAILY 11/06/18 Ondansetron [Zofran Odt] 4 mg PO Q8H PRN PRN #10 tab 11/24/18 Sotalol HCl [Sotalol] 120 mg PO BID 05/11/19 Lisinopril 5 mg PO DAILY 05/29/19 Metoprolol Succinate [Toprol Xl] 50 mg PO DAILY 05/29/19 Potassium Chloride [Klor-Con M10] 10 meq PO BID 05/29/19 hydrOXYzine pamoate capsule [Vistaril pamoate capsule] 25 mg PO BID 05/29/19 Lamotrigine 100 mg PO DAILY 06/24/19 Nitroglycerin [Nitrolingual [place]] 0.4 mg SUBLINGUAL PRN PRN 11/08/19 Meclizine HCl 25 mg PO TID PRN PRN 11/09/19
--- NOTE | 2019-11-09 16:15 | CHAPLAIN ---
Type of Pastoral Visit _x__ Initial Visit ___ Follow-up Visit ___ On-call Visit ___ General Patient Visit ___ Spiritual Assessment ___ Family Conference ___ Bereavement ___ Rapid Response ___ Code Blue ___ Other (describe below) Pastoral Care Referral From _x__ Patient ___ Family ___ Nurse ___ Physician ___ Occupational Health Physician ___ Acid Remover ___ Other (describe below) Sacrament/Intervention _x__ Active listening ___ Anointing ___ Anabaptist ___ Bereavement ___ Communion _x__ Val exploration ___ _x__ Life review _x__ Prayer ___ Reconciliation ___ Sacrament of Sick _x__ Supportive presence ___ Wedding ___ Other (describe below) Pastoral Comments
== END 2019-11-09 14:10 | disposition home or self-care (01) ==
LOC: ED 19:32 → PCU 23:06
PROVIDERS: Admitting Provider Family Medicine; Emergency Provider Emergency Medicine; PCP Internal Medicine
DX: R07.89 Other chest pain (principal); E78.5 Hyperlipidemia, unspecified; I48.20 Chronic atrial fibrillation, unspecified; I10 Essential (primary) hypertension; G47.33 Obstructive sleep apnea (adult) (pediatric); I25.10 Atherosclerotic heart disease of native coronary artery without angina pectoris; I48.0 Paroxysmal atrial fibrillation; K21.9 Gastro-esophageal reflux disease without esophagitis; E66.9 Obesity, unspecified; R06.02 Shortness of breath; R11.2 Nausea with vomiting, unspecified; I71.2 Thoracic aortic aneurysm, without rupture; R00.0 Tachycardia, unspecified; F41.9 Anxiety disorder, unspecified; Z79.899 Other long term (current) drug therapy; Z79.01 Long term (current) use of anticoagulants; Z68.32 Body mass index [BMI] 32.0-32.9, adult; Z71.3 Dietary counseling and surveillance
CPT/HCPCS: 36415; 71045; 71275; 78452; 80048; 80061; 83735; 84484; 85025; 85379; 93005; 93017; 96361; 96374; 96375; 96376; 99218; 99251; 99285; A9500; J7030; Q9967; A4216; G0378; G0463; J2405; J2785

== ENCOUNTER 2019-11-12 17:37 | Emergency (ER) | payer MEDICARE, SELFPAY ==
[2019-11-08 23:48] VITALS: BMI 31.6
[2019-11-12 17:38] VITALS: BP 145/104; PULSE 109; RESP 20; TEMP 37.3; O2SAT 99; BMI 32.1
--- NOTE | 2019-11-12 17:53 | CT_ITS ---
STUDY: CT ABDOMEN AND PELVIS WITHOUT CONTRAST REASON FOR EXAM: Male, 49 years old. RT FLANK PAIN. Hx of stones and 2 back surgeries RADIATION DOSAGE (If Supplied By Facility): CTDIvol = ( 16.99 ) mGy, DLP = ( 997.76 ) mGycm TECHNIQUE: Transaxial images were obtained from the dome of the diaphragm to the symphysis pubis without oral contrast, and without intravenous contrast. Sagittal and coronal images were reconstructed. Individualized dose optimization techniques were used for this CT. COMPARISON: None. FINDINGS: The visualized lung bases are unremarkable. The visualized portions of the heart are within normal limits. Normal liver. Normal gallbladder and extrahepatic biliary system. Normal spleen. There is diffuse atrophy of the pancreas. Normal bilateral adrenal glands. Normal right kidney. Normal left kidney. Tiny nonobstructing 1.5 mm left lower pole nephrolith Normal visualized stomach. Normal small intestine. There are multiple colonic diverticula consistent with diverticulosis. The appendix is visualized and appears normal. Normal abdominal aorta. Normal inferior vena cava. Normal retroperitoneum. Normal urinary bladder. There are prostatic calcifications. Normal abdominal wall. There are diffuse degenerative changes of the visualized lumbar spine. Posterior fusion at L4-5 CT/Abdomen/Pelvis without Cont IMPRESSION: Tiny nonobstructing left nephrolith. Otherwise, unremarkable kidneys. No evidence of acute obstruction. Electronically Signed: Lazaro Hoang DO at 19:19 EST Tel , Service support ,
[2019-11-12] MEDS: HYDROmorphone 1 MG/ML Syringe IV (18:21)
[2019-11-12] MEDS: 0.9% Normal Saline 1,000 ML 125 ML IV (18:21)
[2019-11-12] MEDS: Ondansetron 4 MG/2 ML Vial IV (18:21)
[2019-11-12 18:27] VITALS: PULSE 109; TEMP 37.3
[2019-11-12 18:35] LABS: Absolute Lymphocyte Count 1.94 X10^3/uL (0.83-4.51); Absolute Neutrophil Count 3.8 X10^3/uL (2.0-7.7); Basophil# 0.05 X10^3/uL; Basophil% 0.8 % (0-1); Eosinophils% 1.6 % (0-5); Hematocrit 49.3 % (40-54); Hemoglobin 16.4 g/dL (13.0-16.5); Lymphocyte # 1.94 X10^3/ul (4.0); Lymphocyte % 30.8 % (19-41); Mean Corp Hgb Conc 33.3 g/dL (32-36); Mean Corpuscular Hgb 26.8 pg (27.0-32.0); Mean Corpuscular Volume 80.7 fL (80-94); Monocyte# 0.43 X10^3/uL; Monocyte% 6.8 % (0-10); NRBC Flagged by Analyzer 0 % (0-5); Neutrophil # 3.76 X10^3/uL (2.7-7.7); Neutrophil % 59.8 % (47-70); Platelet Count 311 K/mm3 (150-450); RBC Distribution Width CV 13.6 % (11.6-14.6); RBC Distribution Width SD 38.6 fl (35.1-43.9); Red Blood Count 6.11 M/mm3 (4.6-6.2); White Blood Count 6.3 K/mm3 (4.4-11.0)
--- NOTE | 2019-11-12 18:40 | CM.ED ---
SOCIAL WORK INFORMANT: NURSING REASON FOR REFERRAL: ED CARE PLAN MET WITH PATIENT IN ROOM. DISCUSSED FREQUENT ED VISITS. EDUCATED PATIENT ON RELEASE OF INFORMATION SPECIALIST'S ROLE AND ED CARE PLAN. PATIENT REPORTS HISTORY OF KIDNEY STONES, ANEURYSM, HIGH BLOOD PRESSURE, AFIB, CHF AND DEPRESSION AND ANXIETY. PATIENT STATES HAS BEEN TRYING TO MANAGE MEDICAL ISSUES AND HAS NEW PRIMARY CARE, KIDNEY DOCTOR AND LICENSING OFFICER. LIVING SITUATION: PATIENT REPORTS LIVES WITH SIGNIFICANT OTHER, JONAH GARCIA [phone] EMPLOYMENT/FINANCIAL: PATIENT REPORTS IS DISABLED AND HAS LIMITED INCOME THROUGH SOCIAL SECURITY. PRIMARY CARE PHYSICIAN: JANEL NAYAK [facility] SUPPORT/RESOURCES: FAMILY MENTAL HEALTH HISTORY/TREATMENT: PATIENT REPORTS HAS BEEN DIAGNOSED WITH DEPRESSION AND ANXIETY. PATIENT REPORTS FOLLOWED WITH COUNSELING IN THE PAST THROUGH [facility]. PATIENT STATES ONLY WENT TO 3 APPOINTMENTS HE HAD MANY MEDICAL ISSUES AND DIDN'T FEEL COUNSELING WAS HELPING AT THAT TIME. PATIENT REPORTS RECENT HISTORY OF PANIC ATTACKS. PATIENT STATES WOULD BE OPEN TO FOLLOW UP WITH THE [facility]ING [facility] FOR INTAKE AND GET ESTABLISHED WITH PSYCHIATRIST. SUBSTANCE ABUSE HISTORY: PATIENT DENIES ANY HISTORY OF SUBSTANCE ABUSE. INTERVENTIONS: SOCIAL SERVICE ASSESSMENT EDUCATION ON ED CARE PLAN. ONCE COMPLETED AND APPROVED INFORMED PATIENT WILL RECEIVE COPY OF PLAN IN THE MAIL. REFERRAL TO THE [facility]SELING CENTER. INTAKE APPOINTMENT WITH [facility] SCHEDULED FOR 11/17/19 AT 1:45P. PATIENT GIVEN APPOINTMENT REMINDER CARD. PLAN: HOME WITH RESOURCES PROVIDED. RAFIA MEDRANO, BUTTON MAKER.
--- NOTE | 2019-11-12 18:47 | ED.DCSUM_ITS ---
- ER Visit Summary Date of Service: 11/12/19 Chief Complaint: [Right flank pain and concern for passing a kidney stone] History of Present Illness: The patient is a 49 M [presents to the emergency department with complaint of pain in his right flank that started yesterday. Patient states that he has had some symptoms for almost a week now. Patient states he was recently admitted to the hospital for chest pain work-up which was unremarkable. At that time he was having some urinary symptoms such as caitlin quency. Since yesterday more severe pain to the right lower abdomen and into his back and he does have a history of kidney stones. Thinks he might be passing a kidney stone. Patient also with history of hypertension and history of A. fib. No prior surgical history. Patient denies any fevers. Has had nausea and did vomit one time yesterday but none since.] Physical Examination: [HEENT-PERRLA, EOMI. Cranial nerves II through XII grossly intact. TMs clear. Mucous membranes moist. No adenopathy. Cardiovascular-regular rate and rhythm without murmur or ectopy Lungs-clear to auscultation, chest wall stable without crepitus or subcu emphysema Abdomen-normoactive bowel sounds, soft. Patient does have tenderness palpation over the right lower quadrant as well as CVA tenderness on the left. There is no rebound, rigidity, or perineal signs. Extremities-intact ?4, normal range of motion, normal pulses, atraumatic] Test Results: [CBC with it was normal. Chemistries normal. Urinalysis normal. CT flank showed nothing acute.] Emergency Department Course and Treatment: [Patient on arrival was given a milligram of Dilaudid. Patient was given normal saline.] Treatment Plan: [Patient advised to use Tylenol for discomfort. Patient to follow-up with his primary care physician in 3 to 5 days.] Disposition: [Discharged home in stable condition.] Impression: [Right flank pain-etiology uncertain] This note was generated with [employer] dictation software. It may contain incorrect words, spelling, and punctuation that were not noted in review of the chart prior to signing ED Disposition - Plan for ED Patient: Referrals: Zulma Thornton DO [Primary Care Provider] -
[2019-11-12 18:49] LABS: Anion Gap 4 (5-15); BUN 10 mg/dL (7-18); BUN/Creat Ratio 9.3 RATIO (10-20); Calcium,Total 9.3 mg/dL (8.5-10.1); Chloride 108 mmol/L (98-107); Creatinine, Serum 1.07 mg/dL (0.70-1.30); EST Glomerular Filtration Rate 78 mL/min (>60); Est Glom Filt Rate - Afr Amer 94 mL/min (>60); Estimated Creatinine Clearance 88.94 ml/min; Glucose 119 mg/dL (74-106); Potassium 3.5 mmol/L (3.5-5.1); Sodium Level 139 mmol/L (136-145)
[2019-11-12 19:18] LABS: Bacteria 0 SEEN /hpf (None Seen); Mucous, Urine 0 SEEN /hpf (<or=2+); Red Blood Cells-Urine 0 SEEN /hpf (0-5); White Blood Cells 0 SEEN /hpf (0-5)
[2019-11-12 19:20] LABS: Color, Urine Yellow (Yellow); Glucose, Dipstick Normal (Normal); Ketone-Dipstick Negative (Negative); Leukocyte Esterase-Dipstick Negative /ul (Negative); Nitrite-Dipstick Negative (Negative); Occult Blood-Urine Negative /ul (Negative); Protein-Dipstick Negative (Negative); Urine Bilirubin Dipstick Negative (Negative); Urine Clarity Sl. Cloudy (Clear); Urine Urobilinogen Normal (Normal)
[2019-11-12 19:30] LABS: Squamous Epithelial Cells - UA 0-5 SEEN /hpf (0-5)
--- NOTE | 2019-11-12 19:46 | ED.DEP ---
ED Disposition - Plan for ED Patient: Instructions: FLANK PAIN, Uncertain Cause Referrals: Zulma Thornton DO [Primary Care Provider] - 3-5 Days
[2019-11-12 19:56] VITALS: RESP 18
--- NOTE | 2020-01-04 16:01 | CM.ED ---
SOCIAL WORK CALL TO PATIENT TO UPDATE ON APPROVED ED CARE PLAN. NO ANSWER, UNABLE TO LEAVE MESSAGE. COPY OF ED CARE PLAN AND RESOURCES MAILED TO PATIENT VIA CERTIFIED MAIL. CALL TO PATIENT'S PCP OFFICE. LEFT MESSAGE. COPY OF ED CARE PLAN FAXED TO PHYSICIAN'S OFFICE. Juan SENIOR, INDUSTRIAL ENERGY ENGINEER, DOPE WEIGH OPERATOR
== END 2019-11-12 19:57 | disposition home or self-care (01) ==
LOC: ED 18:02
PROVIDERS: Emergency Provider Emergency Medicine; PCP Internal Medicine
DX: R10.31 Right lower quadrant pain (principal); I48.91 Unspecified atrial fibrillation; I10 Essential (primary) hypertension; Z79.01 Long term (current) use of anticoagulants; Z87.442 Personal history of urinary calculi
CPT/HCPCS: 74176; 80048; 81001; 85025; 96361; 96374; 96375; 99283; J7030; A4216; J2405

== ENCOUNTER 2020-01-05 17:43 | Emergency (ER) | payer MEDICARE, SELFPAY ==
[2020-01-05 17:44] VITALS: BP 152/110; PULSE 105; RESP 18; TEMP 36.6; O2SAT 99; BMI 32.8
[2020-01-05 18:43] LABS: Absolute Lymphocyte Count 2.42 X10^3/uL (0.83-4.51); Absolute Neutrophil Count 2.9 X10^3/uL (2.0-7.7); Basophil# 0.06 X10^3/uL; Eosinophil# 0.12 X10^3/uL; Hematocrit 43.8 % (40-54); Hemoglobin 14.8 g/dL (13.0-16.5); Lymphocyte # 2.42 X10^3/ul (4.0); Lymphocyte % 39.9 % (19-41); Mean Corp Hgb Conc 33.8 g/dL (32-36); Mean Corpuscular Hgb 27.5 pg (27.0-32.0); Mean Corpuscular Volume 81.4 fL (80-94); Mean Platelet Vol. 8.5 fl (6.2-12.0); Monocyte# 0.58 X10^3/uL; Monocyte% 9.6 % (0-10); NRBC Flagged by Analyzer 0 % (0-5); Neutrophil # 2.87 X10^3/uL (2.7-7.7); Neutrophil % 47.3 % (47-70); Platelet Count 238 K/mm3 (150-450); RBC Distribution Width CV 13.9 % (11.6-14.6); RBC Distribution Width SD 40.7 fl (35.1-43.9); Red Blood Count 5.38 M/mm3 (4.6-6.2); White Blood Count 6.1 K/mm3 (4.4-11.0)
[2020-01-05] MEDS: 0.9% Normal Saline 1,000 ML 1000 ML IV (18:46)
[2020-01-05] MEDS: HYDROmorphone 1 MG/ML Syringe IV (18:47)
[2020-01-05] MEDS: Ondansetron 4 MG/2 ML Vial IV (18:47)
[2020-01-05 18:52] LABS: Anion Gap 8 (5-15); BUN 17 mg/dL (7-18); BUN/Creat Ratio 22.5 RATIO (10-20); Calcium,Total 8.8 mg/dL (8.5-10.1); Chloride 108 mmol/L (98-107); Creatinine, Serum 0.76 mg/dL (0.70-1.30); EST Glomerular Filtration Rate 116 mL/min (>60); Est Glom Filt Rate - Afr Amer 140 mL/min (>60); Estimated Creatinine Clearance 125.22 ml/min; Glucose 102 mg/dL (74-106); Potassium 3.4 mmol/L (3.5-5.1); Sodium Level 143 mmol/L (136-145)
[2020-01-05 19:15] LABS: Bacteria 0 SEEN /hpf (None Seen); Mucous, Urine 0 SEEN /hpf (<or=2+); Red Blood Cells-Urine 0 SEEN /hpf (0-5); Squamous Epithelial Cells - UA 0 SEEN /hpf (0-5); White Blood Cells 0 SEEN /hpf (0-5)
[2020-01-05 19:19] LABS: Color, Urine Yellow (Yellow); Glucose, Dipstick Normal (Normal); Ketone-Dipstick Negative (Negative); Leukocyte Esterase-Dipstick Negative /ul (Negative); Nitrite-Dipstick Negative (Negative); Occult Blood-Urine Negative /ul (Negative); Protein-Dipstick Negative (Negative); Urine Bilirubin Dipstick Negative (Negative); Urine Clarity Clear (Clear); Urine Urobilinogen Normal (Normal); Urine pH 6.5 (5.0 - 8.0)
--- NOTE | 2020-01-05 19:33 | ED.VISSUMM ---
- ER Visit Summary Date of Service: 01/05/20 Chief Complaint: Left side back pain History of Present Illness: The patient is a 49 M with left lower back pain that started today. It has been severe. He also reports urinary frequency. History of kidney stones. In October he had a CT that showed a tiny nonobstructing left side nephrolithiasis. Physical Examination: Afebrile and vital signs unremarkable. Left CVA tenderness. Otherwise exam unremarkable. Test Results: Labs and urine unremarkable. CT was not repeated from October as he had a tiny stone and no obstruction. Emergency Department Course and Treatment: Patient was treated with fluids, Dilaudid, Zofran. His work-up was reassuring. I suspect he may have some ureteral colic with his history of a tiny stone on prior CT. Will prescribe a short course of pain medicine and nausea medicine. Follow-up with urology as an outpatient. Return for any new or worsening issues. Treatment Plan: As above Disposition: Discharge Impression: Left flank pain This note was generated with Goodreads dictation software. It may contain incorrect words, spelling, and punctuation that were not noted in review of the chart prior to signing ED Disposition - Plan for ED Patient: Referrals: Zulma Thornton DO [Primary Care Provider] -
--- NOTE | 2020-01-05 19:35 | ED.DEP ---
ED Disposition - Plan for ED Patient: Instructions: FLANK PAIN, Uncertain Cause Prescriptions: Oxycodone HCl/Acetaminophen [Percocet 5/325] 1 tab PO Q6H PRN PRN 3 Days #12 tab PRN Reason: Pain Prescription Printed Ondansetron [Zofran Odt] 4 mg PO Q8H PRN PRN #10 tab PRN Reason: Nausea Prescription Printed Referrals: Camron Langley MD [NON-STAFF] -
[2020-01-05 20:16] VITALS: BP 139/94; PULSE 89; RESP 18; O2SAT 97
== END 2020-01-05 20:18 | disposition home or self-care (01) ==
LOC: ED 18:23
PROVIDERS: Emergency Provider Emergency Medicine; PCP Internal Medicine
DX: M54.5 Low back pain (principal); I48.91 Unspecified atrial fibrillation; I10 Essential (primary) hypertension; K21.9 Gastro-esophageal reflux disease without esophagitis; Z87.442 Personal history of urinary calculi; Z79.01 Long term (current) use of anticoagulants; Z86.73 Personal history of transient ischemic attack (TIA), and cerebral infarction without residual deficits
CPT/HCPCS: 80048; 81001; 85025; 96361; 96374; 96375; 99285; J7030; A4216; J2405

== ENCOUNTER 2020-07-17 12:08 | Emergency (ER) | payer MEDICARE, SELFPAY ==
[2020-07-17 12:09] VITALS: BP 95/77; PULSE 98; RESP 18; TEMP 36.8; O2SAT 97; BMI 34.8
--- NOTE | 2020-07-17 12:26 | RAD_ITS ---
STUDY: X-RAY - LEFT KNEE REASON FOR EXAM: Male, 50 years old. patient states patella dislocation after falling this am TECHNIQUE: 4 view(s) of the knee. COMPARISON: None. FINDINGS: Prior ACL repair noted. No demonstrated fracture. Normal proximal tibiofibular articulation. Normal medial femorotibial compartment. Normal lateral femorotibial compartment. There is mild degenerative arthrosis of the patellofemoral articulation. There is no demonstrated joint effusion. The soft tissue structures are unremarkable. RAD/Knee 4 or More Views IMPRESSION: No fracture or malalignment. Joint effusion. ACL reconstruction. Electronically Signed: Pavan Trinh MD ([place]) at 12:53 EDT , Service support ,
[2020-07-17] MEDS: oxyCODONE 5 MG Tablet PO (12:33)
--- NOTE | 2020-07-17 12:51 | ED.DCSUM_ITS ---
History of Present Illness Informant: Patient Occurred: Today Mechanism/Context: Fall Onset: Today Context: Sudden Onset Timing: Continuous Quality of Pain: Sharp Location: Left knee Current Severity: Severe Maximum Severity: Severe Worsened by: Movement Relieved by: Nothing Associated Symptoms: Negative for: Parasthesia, Weakness, Loss of Funtion Narrative: 50-year-old male presents with left knee injury. The patient was walking down his steps and he lost his balance on the last step and fell landing on his left knee anteriorly. He was concerned that he dislocated his kneecap he states that it looked out of place but when he stood up it went back into place. He did not have any prodromal symptoms. He did not hit his head or lose consciousness. He has not been able to ambulate. He has a history of an ACL repair in this knee remotely. Tetanus Immunization: Unknown Prior similar symptoms: No Recent Illness/Hospitalization: No <Wilbert Mahajan - Last Filed: 07/17/20 13:20> <Bradly Adamson - Last Filed: 07/17/20 13:28> Chief Complaint: Lower Extremity Injury Past Medical History Prior records reviewed: Yes Past Medical History: - - Atrial fibrillation, hypertension, hyperlipidemia, chronic pain syndrome Surgical History: - - Recent right arthroscopic shoulder surgery, RFA. Left knee ACL repair Lives: Alone Smoking Status: Never smoker Alcohol: None Drugs: None - Family History Maternal Family History: Family History (Last Reviewed 07/30/19 @ 12:[address] Cory Lomas MD) Brother Hypertension Mother Heart disease Colon cancer Sister Diabetes Sister Diabetes Sister Diabetes Family History: Reports: - - Maternal family history of DM, Colon CA, Valvular Heart Disease. Paternal Family History: Family History (Last Reviewed 07/30/19 @ 12:[address] Cory Lomas MD) Brother Hypertension Mother Heart disease Colon cancer Sister Diabetes Sister Diabetes Sister Diabetes Family History: Reports: - - Paternal family history of skin CA. <Wilbert Mahajan - Last Filed: 07/17/20 13:20> - Family History Maternal Family History: Family History (Last Reviewed 07/30/19 @ 12:[address] Cory Lomas MD) Brother Hypertension Mother Heart disease Colon cancer Sister Diabetes Sister Diabetes Sister Diabetes Paternal Family History: Family History (Last Reviewed 07/30/19 @ 12:[address] Cory Lomas MD) Brother Hypertension Mother Heart disease Colon cancer Sister Diabetes Sister Diabetes Sister Diabetes <Bradly Adamson - Last Filed: 07/17/20 13:28> - Allergies and Home Meds Allergies/Adverse Reactions: Allergies clonidine Allergy (Intermediate, Verified 07/17/20 12:11) rash clindamycin Allergy (Verified 07/17/20 12:11) Rash doxycycline Allergy (Verified 07/17/20 12:11) Rash fentanyl Allergy (Verified 07/17/20 12:11) Rash levofloxacin [From Levaquin] Allergy (Verified 07/17/20 12:11) Rash Penicillins Allergy (Verified 07/17/20 12:11) Hives bupropion Adverse Reaction (Intermediate, Verified 07/17/20 12:11) vomiting celecoxib [From Celebrex] Adverse Reaction (Intermediate, Verified 07/17/20 12:11) vomiting eletriptan Adverse Reaction (Intermediate, Verified 07/17/20 12:11) Vomiting topiramate [From Topamax] Adverse Reaction (Intermediate, Verified 07/17/20 12:11) vomiting hydrocodone bitartrate [From Vicodin] Adverse Reaction (Verified 07/17/20 12:11) Nausea ketorolac [From Toradol] Adverse Reaction (Verified 07/17/20 12:11) PT ON BLOOD THINNERS, PER DR VICTOR HAVE TORADOL Primary Care Physician: Zulma Thornton DO [Primary Care Provider] - Anup Lewis MD [STAFF PHYSICIAN] - Review of Systems All systems negative except as indicated General: Denies: Chills, Fever, Sweats Eyes: Denies: Visual changes - bilaterally, Diplopia ENT: Denies: Rhinorrhea, Sore throat Cardiovascular: Denies: Chest pain, Palpitations Respiratory: Denies: Dyspnea, Cough, Dyspnea on exertion Gastrointestinal: Denies: Abdominal pain, Nausea, Vomiting, Diarrhea, Melena, Hematochezia Genitourinary: Denies: Dysuria, Hematuria, Frequency Musculoskeletal: Reports: Swelling, Extremity Pain. Denies: Back pain Skin: Denies: Rash, Wounds Neurological: Denies: Headache, Weakness, Numbness <Wilbert Mahajan - Last Filed: 07/17/20 13:20> Physical Exam Vital Signs/Narrative: Vital Signs Temp Pulse Resp BP Pulse Ox 07/17/20 12:09 98.2 F 98 18 95/77 97 Inital Vital Signs reviewed: Yes - Extremity Exam Left Knee: - - He has diffuse swelling of his left knee. His skin is intact. No obvious deformities are noted. He has limited range of motion due to pain and swelling but he is able to fully extend. He is neurovascular intact distally. He has no tenderness over his ankle or foot or hip. General: Well nourished, Well developed Head: Normocephalic, Atraumatic Eyes: Perrl, EOMI ENT: No Trauma, Moist Mucous Membranes Neck: Nontender, Full ROM Cardiovascular: Regular rate, Regular rhythm, No murmurs Respiratory: No distress, CTA bilaterally, Chest nontender Abdomen: Soft, Nontender, Nondistended, Normal bowel sounds Back: Nontender Skin: Normal color, No rash, No Trauma Neurological: Alert, Oriented x3, Cranial nerves II-XII grossly intact, Normal Strength, Normal Sensation Psychological: Normal affect, Normal Mood <Wilbert Mahajan - Last Filed: 07/17/20 13:20> Vital Signs/Narrative: Vital Signs Temp Pulse Resp BP Pulse Ox 07/17/20 12:09 98.2 F 98 18 95/77 97 <Bradly Adamson - Last Filed: 07/17/20 13:28> Diagnostic/Tx/Re-eval Impressions Knee X-Ray 07/17/20 12:26 IMPRESSION: No fracture or malalignment. Joint effusion. ACL reconstruction. Electronically Signed: Pavan Trinh MD ([place]) at 12:53 EDT , Service support , 07/17/20 12:26 Xray Knee [Knee 4 or More Views] [RAD] Stat - Medical Decision Making Pain treated with oxycodone. X-ray of the left knee shows no acute bony abnormality. Repeat exam patient will be placed in a knee immobilizer. His pain is improved. He has crutches at home and declines getting crutches in the emergency department. He will be referred to orthopedics he will rest ice and elevate and use Motrin and Tylenol for pain. <Wilbert Mahajan - Last Filed: 07/17/20 13:20> - Medical Decision Making Patient was seen with me. I did a flin-nx-taad examination with the patient. Patient presents with left knee pain that began after a fall. Patient states he missed the last step on his stairs and fell forward. Patient states his patella dislocated and he has been unable to move his knee without pain since the fall. Patient denies any head injury or loss of consciousness. Patient denies any paresthesias or weakness. Vital signs are stable. Patient is afebrile. Patient is in no acute distress. Musculoskeletal exam reveals tenderness over the left knee. There is no deformity. There is no effusion. Range of motion was limited in all motions of the left knee secondary to pain. There is no laxity but there is guarding on examination. Pedal pulses are equal bilaterally. There are no sensory deficits noted. X-rays of the left knee were obtained. There is no acute fracture. Patient was instructed to ice and elevate the left knee. Patient was given a knee immobilizer. Patient was instructed to use crutches as needed. Patient was instructed to take Tylenol or ibuprofen as needed for pain. Patient understood and was agreeable with the plan. All questions were answered. <Bradly Adamson - Last Filed: 07/17/20 13:28> ED Disposition <Wilbert Mahajan - Last Filed: 07/17/20 13:20> <Bradly Adamson - Last Filed: 07/17/20 13:28> - Plan for ED Patient: Disposition: Home or Assisted Living Diagnosis: Left knee sprain, Atherosclerotic heart disease of [place] coronary artery without angina pectoris Instructions: ED Sprain Knee Referrals: Zulma Thornton DO [Primary Care Provider] - Anup Lewis MD [STAFF PHYSICIAN] -
[2020-07-17 14:17] VITALS: RESP 18
== END 2020-07-17 14:17 | disposition home or self-care (01) ==
PROVIDERS: Emergency Provider Physician Assistant Medical; PCP Internal Medicine
DX: S83.92XA Sprain of unspecified site of left knee, initial encounter (principal); W10.9XXA Fall (on) (from) unspecified stairs and steps, initial encounter; Y93.01 Activity, walking, marching and hiking; Y92.9 Unspecified place or not applicable; I25.10 Atherosclerotic heart disease of native coronary artery without angina pectoris; I48.91 Unspecified atrial fibrillation; I10 Essential (primary) hypertension; E78.5 Hyperlipidemia, unspecified; G89.4 Chronic pain syndrome
CPT/HCPCS: 73564; 99283

== ENCOUNTER 2020-08-20 15:38 | Emergency (ER) | payer MEDICARE, SELFPAY ==
[2020-08-20 15:42] VITALS: BP 121/89; PULSE 104; RESP 16; TEMP 36.3; O2SAT 94; BMI 35.5
--- NOTE | 2020-08-20 16:04 | CT_ITS ---
STUDY: CT BRAIN WITHOUT CONTRAST REASON FOR EXAM: Male, 50 years old. CONFUSION, MENTAL STATUS CHANGE RADIATION DOSAGE (If Supplied By Facility): CTDIvol = ( 44.99 ) mGy, DLP = ( 745.49 ) mGycm TECHNIQUE: Transaxial CT imaging of the brain was performed without administration of intravenous contrast material. Individualized dose optimization techniques were used for this CT. COMPARISON: 08/15/2019 FINDINGS: Normal soft tissue structures. Normal calvarium. Normal size ventricles and extra-axial spaces for the patient''s age. Normal white matter tracts of the cerebral hemispheres. Normal basal ganglia and thalami. Normal brainstem. Normal cerebellum. There is no intracranial hemorrhage. There are no findings of an acute ischemic infarction. There is mucoperiosteal inflammatory disease of the right paranasal sinuses consistent with moderate chronic sinusitis. CT/Brain/Head without Contrast IMPRESSION: 1. No acute intracranial hemorrhage or mass effect. 2. Worsening right maxillary, ethmoid and frontal sinus disease. Electronically Signed: Pavan Trinh MD ([place]) at 17:10 EDT , Service support ,
--- NOTE | 2020-08-20 16:04 | RAD_ITS ---
STUDY: X-RAY CHEST REASON FOR EXAM: Male, 50 years old. Confusion TECHNIQUE: AP COMPARISON: 11/08/2019 FINDINGS: No airspace consolidation. There is no demonstrated pleural abnormality. Normal size heart. Normal mediastinum and ruben. Normal visualized pulmonary arteries. Normal visualized aortic arch and descending thoracic aorta. Normal visualized thoracic spine. Normal visualized ribs, clavicles, and shoulders. There is no demonstrated abnormality of the visualized soft tissue structures of the upper abdomen. RAD/Chest 1 View (Portable) IMPRESSION: Stable, nonacute portable x-ray examination of the chest. Electronically Signed: Pavan Trinh MD ([place]) at 17:13 EDT , Service support ,
--- NOTE | 2020-08-20 16:07 | ED.DCSUM_ITS ---
- ER Visit Summary Date of Service: 08/20/20 Chief Complaint: Mental status change History of Present Illness: The patient is a 50 M history of bipolar disorder, kidney stones in both aortic and thoracic aneurysms. Reportedly per the patient's is a confusion today. He was not acting right either in [employer] or another store. He seemed confused. He has had no recent head injuries. She denies any nausea, vomiting or diarrhea. Says recently he has had his psychiatric meds changed. They deny any fever. Physical Examination: Middle-aged male no acute distress vital signs stable and afebrile. Pulse ox 94% on room air no signs of hypoxia. at bedside. H EENT exam unremarkable atraumatic. Pupils round reactive light extra motions intact. No facial droop. Normal speech. Neck nontender no meningismus. No lymphadenopathy. Lungs clear to auscultation bilaterally. Heart regular rhythm no murmur. Abdomen soft nontender normal bowel sounds no peritoneal signs. Patient moving all 4 extremities. Neurovascular intact. Equal symmetrical 5/5 director building strength. Dorsi plantarflexion intact. Neurologically patient is awake. He is alert. He knows the year and president and states. He knows it is Halloween. He thought it was Saturday night Saturday. He was unsure of the month. No focal motor deficits. Normal strength. Test Results: Hemogram normal. Creatinine = 1.27. UA normal. CXR is normal. CT brain shows chronic sinusitis. Emergency Department Course and Treatment: Middle-aged male with confusion. History of prior TIA. No focal motor deficits at this time. This may be secondary to recent med changes versus other etiologies. CAT scan labs are being obtained. Repeat exam patient is doing well at 6:48 PM. Is awake alert acting normally. I discussed with both he and his they are comfortable with him being discharged home will follow up with his physician who adjusted his psychiatric medications. Treatment Plan: Follow up with your Dr. Burgos if feeling worse Disposition: discharge Impression: Acute confusion History of bipolar disorder History of prior TIA History of both thoracic and abdominal aortic aneurysm This note was generated with [employer] software. It may contain incorrect words, spelling, and punctuation that were not noted in review of the chart prior to signing ED Disposition - Plan for ED Patient: Referrals: Zulma Thornton DO [Primary Care Provider] -
[2020-08-20 16:41] LABS: Absolute Lymphocyte Count 2.59 X10^3/uL (0.83-4.51); Absolute Neutrophil Count 5.2 X10^3/uL (2.0-7.7); Basophil# 0.06 X10^3/uL; Basophil% 0.7 % (0-1); Eosinophil# 0.19 X10^3/uL; Eosinophils% 2.1 % (0-5); Hematocrit 45.2 % (40-54); Hemoglobin 14.2 g/dL (13.0-16.5); Lymphocyte # 2.59 X10^3/ul (4.0); Lymphocyte % 28.8 % (19-41); Mean Corp Hgb Conc 31.4 g/dL (32-36); Mean Corpuscular Hgb 25.5 pg (27.0-32.0); Mean Corpuscular Volume 81.1 fL (80-94); Mean Platelet Vol. 8.8 fl (6.2-12.0); Monocyte# 0.86 X10^3/uL; Monocyte% 9.6 % (0-10); NRBC Flagged by Analyzer 0 % (0-5); Neutrophil # 5.24 X10^3/uL (2.7-7.7); Neutrophil % 58.2 % (47-70); Platelet Count 299 K/mm3 (150-450); RBC Distribution Width SD 43.2 fl (35.1-43.9); Red Blood Count 5.57 M/mm3 (4.6-6.2)
[2020-08-20 16:45] LABS: Mucous, Urine 0 SEEN /hpf (<or=2+); Red Blood Cells-Urine 0 SEEN /hpf (0-5); Squamous Epithelial Cells - UA 0 SEEN /hpf (0-5); White Blood Cells 0 SEEN /hpf (0-5)
[2020-08-20 16:46] LABS: Color, Urine Yellow (Yellow); Glucose, Dipstick Normal (Normal); Ketone-Dipstick Negative (Negative); Leukocyte Esterase-Dipstick Negative /ul (Negative); Nitrite-Dipstick Negative (Negative); Occult Blood-Urine Negative /ul (Negative); Protein-Dipstick Negative (Negative); Urine Bilirubin Dipstick Negative (Negative); Urine Clarity Clear (Clear); Urine Urobilinogen Normal (Normal); Urine pH 6.5 (5.0 - 8.0)
[2020-08-20 16:59] LABS: Bacteria RARE /hpf (None Seen)
[2020-08-20 17:00] VITALS: RESP 17
[2020-08-20 17:02] LABS: ALB/GLOB Ratio 0.9 RATIO (0.9-2.4); AST(SGOT) 25 U/L (15-37); Alanine Aminotransfer ALT/SGPT 32 U/L (16-61); Albumin, Serum 3.7 g/dL (3.2-5.0); Alkaline Phosphatase 118 U/L (45-117); Anion Gap 6 (5-15); BUN 19 mg/dL (7-18); Calcium,Total 9.2 mg/dL (8.5-10.1); Chloride 106 mmol/L (98-107); Creatinine, Serum 1.27 mg/dL (0.70-1.30); EST Glomerular Filtration Rate 64 mL/min (>60); Est Glom Filt Rate - Afr Amer 77 mL/min (>60); Estimated Creatinine Clearance 74.11 ml/min; Globulin 4.2 g/dL (2.2-4.2); Glucose 101 mg/dL (74-106); Potassium 3.8 mmol/L (3.5-5.1); Protein, Total 7.9 g/dL (6.4-8.2); Sodium Level 139 mmol/L (136-145)
[2020-08-20 18:00] VITALS: RESP 16
--- NOTE | 2020-08-20 19:00 | ED.DEP ---
ED Disposition - Plan for ED Patient: Disposition: Home or Assisted Living Instructions: ED Confusion Referrals: Zulma Thornton, [Primary Care Provider] - As soon as possible Additional Instructions: Follow-up with your doctor. Return if feeling worse. Your labs, CAT scan and chest x-ray were basically unremarkable today.
[2020-08-20 19:12] VITALS: BP 108/79; PULSE 85; RESP 18; O2SAT 99
== END 2020-08-20 19:13 | disposition home or self-care (01) ==
PROVIDERS: Emergency Provider Emergency Medicine; PCP Internal Medicine
DX: R41.0 Disorientation, unspecified (principal); F31.9 Bipolar disorder, unspecified; I25.2 Old myocardial infarction; Z86.79 Personal history of other diseases of the circulatory system; Z79.899 Other long term (current) drug therapy; Z86.73 Personal history of transient ischemic attack (TIA), and cerebral infarction without residual deficits
CPT/HCPCS: 70450; 71045; 80053; 81001; 85025; 99283; A4216

== ENCOUNTER 2020-09-13 19:54 | Emergency (ER) | payer MEDICARE, SELFPAY ==
[2020-09-13 19:55] VITALS: BP 135/95; PULSE 95; RESP 18; TEMP 36.2; O2SAT 98; BMI 37.1
--- NOTE | 2020-09-13 20:34 | CT_ITS ---
STUDY: CT ABDOMEN AND PELVIS WITHOUT CONTRAST REASON FOR EXAM: Male, 50 years old. RT FLANK PAIN X 1 HOUR -- HX:HTN,LA,GERD,KIDNEY STONES -- SURGERY:BACK,HERNIA REPAIR,KIDNEY STONES X 2 RADIATION DOSAGE (If Supplied By Facility): CTDIvol = ( 31.19 ) mGy, DLP = ( 1738.10 ) mGycm TECHNIQUE: Transaxial images were obtained from the dome of the diaphragm to the symphysis pubis without oral contrast, and without intravenous contrast. Sagittal and coronal images were reconstructed. Individualized dose optimization techniques were used for this CT. COMPARISON: 11/12/2019 FINDINGS: The visualized lung bases are unremarkable. The visualized portions of the heart are within normal limits. Normal liver. Normal gallbladder and extrahepatic biliary system. Normal spleen. Normal pancreas. Normal bilateral adrenal glands. There is a punctate calcification of the right kidney on image 66 of series 2. No hydronephrosis. Normal visualized stomach. Normal small intestine. There are multiple colonic diverticula consistent with diverticulosis. The appendix is visualized and appears normal. Minor abdominal aortic atherosclerosis. Normal inferior vena cava. Normal retroperitoneum. Nondistended urinary bladder. There are operative changes in the right inguinal region. Similar small left inguinal fat-containing hernia. Stable degenerative and operative changes of the lumbar spine. CT/Abdomen/Pelvis without Cont IMPRESSION: 1. No hydronephrosis or ureteral calculi. 2. Stable right punctate nephrolithiasis. Electronically Signed: Pavan Trinh MD ([place]) at 21:14 EST , Service support ,
[2020-09-13] MEDS: Morphine 4 MG/ML Syringe IV (20:49)
[2020-09-13] MEDS: Ondansetron 4 MG/2 ML Vial IV (20:49)
[2020-09-13 21:05] LABS: Bacteria 0 SEEN /hpf (None Seen); Mucous, Urine 0 SEEN /hpf (<or=2+); Red Blood Cells-Urine 0 SEEN /hpf (0-5); Squamous Epithelial Cells - UA 0 SEEN /hpf (0-5); White Blood Cells 0 SEEN /hpf (0-5)
[2020-09-13 21:13] LABS: Color, Urine Yellow (Yellow); Glucose, Dipstick Normal (Normal); Ketone-Dipstick Negative (Negative); Leukocyte Esterase-Dipstick Negative /ul (Negative); Nitrite-Dipstick Negative (Negative); Occult Blood-Urine Negative /ul (Negative); Protein-Dipstick Negative (Negative); Urine Bilirubin Dipstick Negative (Negative); Urine Clarity Clear (Clear); Urine Urobilinogen Normal (Normal)
--- NOTE | 2020-09-13 21:59 | ED.DEP ---
ED Disposition - Plan for ED Patient: Instructions: ED Flank Pain Uncertain Cause Referrals: Zulma Thornton DO [Primary Care Provider] -
--- NOTE | 2020-09-13 22:01 | ED.VISSUMM ---
- ER Visit Summary Date of Service: 09/13/20 Chief Complaint: Right flank pain History of Present Illness: The patient is a 50 M presenting with right flank pain. Patient states this started 3 hours ago. He states this feels similar to his previous kidney stones. He denies injury. Denies urinary complaints. Denies fever. Denies other complaints. Physical Examination: Vitals are stable. Patient is afebrile. Alert no acute distress. HEENT exam is unremarkable. Neck is supple. Lungs are clear and equal bilaterally. Heart is regular rate and rhythm. Abdomen is soft nontender nondistended. No guarding or rebound Back: Right CVA tenderness Extremities are unremarkable. Skin is warm and dry. No rash No focal neurologic deficit. Remainder of exam is unremarkable. Emergency Department Course and Treatment: Patient was given morphine, Zofran IV with improvement. Urinalysis unremarkable. CT flank shows no hydronephrosis or ureteral calculi. Stable right punctate nephrolithiasis. On reevaluation, patient is resting comfortably. Discussed possibility of recently passed kidney stone versus musculoskeletal pain. Advised to follow-up with primary care physician. Advised return to ED for worsening complaints. Disposition: Discharge home Impression: Right flank pain This note was generated with [employer] dictation software. It may contain incorrect words, spelling, and punctuation that were not noted in review of the chart prior to signing ED Disposition - Plan for ED Patient: Instructions: ED Flank Pain Uncertain Cause Referrals: Zulma Thornton DO [Primary Care Provider] -
[2020-09-13 22:30] VITALS: BP 123/88; PULSE 71; RESP 16; O2SAT 97
== END 2020-09-13 22:31 | disposition home or self-care (01) ==
LOC: ED 21:25
PROVIDERS: Emergency Provider Emergency Medicine; PCP Internal Medicine
DX: N20.0 Calculus of kidney (principal); Z87.442 Personal history of urinary calculi; I11.0 Hypertensive heart disease with heart failure; I50.9 Heart failure, unspecified; Z79.01 Long term (current) use of anticoagulants; Z79.899 Other long term (current) drug therapy
CPT/HCPCS: 74176; 81001; 96374; 96375; 99283; A4216; J2405

== ENCOUNTER 2021-01-22 12:10 | Emergency (ER) | payer MEDICARE, SELFPAY ==
[2021-01-22 12:11] VITALS: BP 141/102; PULSE 95; RESP 18; TEMP 36.1; O2SAT 98; BMI 36.2
--- NOTE | 2021-01-22 12:24 | RAD_ITS ---
STUDY: X-RAY - LEFT KNEE REASON FOR EXAM: Male, 50 years old. fall TECHNIQUE: 4 view(s) of the knee. COMPARISON: 07/17/2020. FINDINGS: Normal visualized distal femur. Normal visualized proximal tibia and fibula. Normal proximal tibiofibular articulation. There is no demonstrated fracture. Stable appearance of previous ACL repair. Normal medial femorotibial compartment. Normal lateral femorotibial compartment. There is mild degenerative arthrosis of the patellofemoral articulation. Moderate effusion. The soft tissue structures are unremarkable. RAD/Knee 4 or More Views IMPRESSION: No significant change or acute abnormality. Postoperative changes, effusion. Electronically Signed: Soto Mena MD at 13:16 EDT , Service support ,
--- NOTE | 2021-01-22 12:24 | RAD_ITS ---
STUDY: X-RAY - LEFT FOOT CLINICAL: Male, 50 years old. fall TECHNIQUE: 3 view(s) of the foot. COMPARISON: None. FINDINGS: There is a fracture of the tip of the medial malleolus, not as well seen on the ankle images, and again seen is the oblique fracture through the distal fibula. No definite abnormalities of the foot. Normal talus, calcaneus, and tarsal bones. Normal visualized subtalar, talonavicular, calcaneocuboid, tarsal and tarsometatarsal articulations. Normal metatarsi. Normal metatarsophalangeal joint of the great toe. Normal tibial and fibular sesamoid bones. Normal interphalangeal joint of the great toe. Normal phalanges of the great toe. Normal second through fifth metatarsophalangeal joints. Normal interphalangeal joints and phalanges of the lesser toes. The soft tissue structures are unremarkable. RAD/Foot min 3 Views IMPRESSION: Normal x-ray examination of the foot. Fracture seen of the tip of the medial malleolus and of the distal fibula. Electronically Signed: Soto Mena MD at 13:14 EDT , Service support ,
--- NOTE | 2021-01-22 12:24 | RAD_ITS ---
STUDY: X-RAY - LEFT ANKLE REASON FOR EXAM: Male, 50 years old. fall TECHNIQUE: 3 view(s) of the ankle. COMPARISON: None. FINDINGS: Oblique fracture through the distal fibula proximal to the lateral malleolus. Minimal lateral displacement, no angulation. Mild widening of the ankle joint. Mild shift of the talus laterally. No other fractures are seen. Normal visualized talus and calcaneus. The visualized subtalar, talonavicular, calcaneocuboid and tarsal articulations are normal. Lateral and anterior soft tissue swelling. RAD/Ankle min 3 Views IMPRESSION: Oblique mildly displaced fracture through the distal fibular neck. Electronically Signed: Soto Mena MD at 13:13 EDT , Service support ,
[2021-01-22 12:43] VITALS: BP 122/89; PULSE 88; RESP 16; O2SAT 99
--- NOTE | 2021-01-22 13:35 | CT_ITS ---
STUDY: CT BRAIN WITHOUT CONTRAST REASON FOR EXAM: Male, 50 years old. fall RADIATION DOSAGE (If Supplied By Facility): CTDIvol = ( 44.99 ) mGy, DLP = ( 762.36 ) mGycm TECHNIQUE: Transaxial CT imaging of the brain was performed without administration of intravenous contrast material. Individualized dose optimization techniques were used for this CT. COMPARISON: 08/20/2020 FINDINGS: Normal soft tissue structures. Normal calvarium. Normal size ventricles and extra-axial spaces for the patient''s age. Normal white matter tracts of the cerebral hemispheres. Normal basal ganglia and thalami. Normal brainstem. Normal cerebellum. There is no intracranial hemorrhage. There are no findings of an acute ischemic infarction. There is mucoperiosteal inflammatory disease of the paranasal sinuses consistent with moderate chronic sinusitis. Continued opacification of the right maxillary sinus. CT/Brain/Head without Contrast IMPRESSION: Normal unenhanced CT scan of the brain. Electronically Signed: Soto Mena MD at 14:26 EDT , Service support ,
--- NOTE | 2021-01-22 13:42 | ED.VISSUMM ---
- ER Visit Summary Date of Service: 01/22/21 Chief Complaint: Fall History of Present Illness: The patient is a 50 M presenting after trip and fall. Patient tripped on carpet and fell forward. He did hit his head. He is unsure if he lost consciousness. He complains of left knee and ankle pain. He is on Eliquis for history of A. fib. He has pain with ambulation. He states he is awaiting knee replacement for arthritis. He denies other injuries. Physical Examination: Vitals are stable. Patient is afebrile. Alert no acute distress. HEENT exam is unremarkable. Neck is nontender Lungs are clear and equal bilaterally. Heart is regular rate and rhythm. Abdomen is soft nontender nondistended. Extremities left anterior knee tenderness. Extensor mechanism intact. Left lateral ankle tenderness and swelling. Normal pulses. Skin is warm and dry. No focal neurologic deficit. Remainder of exam is unremarkable. Emergency Department Course and Treatment: Left ankle x-ray read by myself and radiology shows oblique mildly displaced fracture through the distal fibular neck. Left foot x-ray read by myself and radiology shows normal x-ray examination of the foot. Fracture seen of the tip of the medial malleolus and of the distal fibula. Left knee x-ray read by myself and radiology shows no significant change or acute abnormality. Postoperative changes, effusion. CT head shows normal unenhanced CT scan of the brain. Patient was given OxyIR. Posterior splint was applied. Patient has crutches and is advised nonweightbearing. Advised to follow-up with Dr. Batista. Advised return to ED for worsening complaints. Disposition: Discharge home Impression: Status post fall, left distal fibula fracture This note was generated with [employer] dictation software. It may contain incorrect words, spelling, and punctuation that were not noted in review of the chart prior to signing ED Disposition - Plan for ED Patient: Instructions: ED Ankle Fracture, Distal Fibula Prescriptions: Oxycodone HCl/Acetaminophen [Percocet 5/325] 1 tablet PO Q6H PRN PRN 3 Days #12 tab PRN Reason: Pain Prescription Printed Referrals: Claribel Batista DO [STAFF PHYSICIAN] - Zulma Thornton DO [Primary Care Provider] -
[2021-01-22] MEDS: oxyCODONE 5 MG Tablet PO (13:52)
[2021-01-22 13:53] VITALS: BP 112/75; PULSE 81; RESP 16; O2SAT 98
--- NOTE | 2021-01-22 14:07 | ED.DEP ---
ED Disposition - Plan for ED Patient: Instructions: ED Ankle Fracture, Distal Fibula Prescriptions: Oxycodone HCl/Acetaminophen [Percocet 5/325] 1 tablet PO Q6H PRN PRN 3 Days #12 tab PRN Reason: Pain Prescription Printed Referrals: Zulma Thornton DO [Primary Care Provider] - Claribel Batista DO [STAFF PHYSICIAN] -
== END 2021-01-22 14:45 | disposition home or self-care (01) ==
PROVIDERS: Emergency Provider Emergency Medicine; PCP Internal Medicine
DX: S82.832A Other fracture of upper and lower end of left fibula, initial encounter for closed fracture (principal); W01.0XXA Fall on same level from slipping, tripping and stumbling without subsequent striking against object, initial encounter; Y93.9 Activity, unspecified; Y92.9 Unspecified place or not applicable; Y99.9 Unspecified external cause status; I48.91 Unspecified atrial fibrillation; I10 Essential (primary) hypertension; K21.9 Gastro-esophageal reflux disease without esophagitis; Z79.01 Long term (current) use of anticoagulants; Z79.899 Other long term (current) drug therapy
CPT/HCPCS: 29515; 70450; 73564; 73610; 73630; 99282